=== PATIENT | female | born 1985 | race Caucasian/White ===

== ENCOUNTER 2016-12-02 12:24 | Inpatient (IN) | payer OTHER ==
[~2016-12-02] VITALS: Ht 157.5 cm; Wt 53.2 kg
[2016-12-02] MEDS ORDERED: HYDROmorphONE 1 MG/ML SYG IV STA (14:55)
[2016-12-02] MEDS ORDERED: ONDANSETRON 4 MG INJ IV STA ×2 (14:55→19:18)
[2016-12-02] MEDS ORDERED: DIPHENHYDRAMINE 50 MG INJ IV ONE ×2 (15:00→19:30)
[2016-12-02 15:43] LABS: BASOPHILS % 0.1 % (0.0-2.0); EOSINOPHILS # 0.2 10^3/ul (0.0-0.5); EOSINOPHILS % 2.7 % (0.0-7.0); HEMATOCRIT 28.1 % (37.0-47.0); HEMOGLOBIN 9.3 g/dl (12.0-16.0); LYMPHOCYTES # 1.3 10^3/ul (0.8-2.9); MEAN CORPUSCULAR HEMOGLOBIN 34.3 pg (29.0-33.0); MEAN CORPUSCULAR HGB CONC 33.1 g/dl (32.0-37.0); MEAN CORPUSCULAR VOLUME 103.7 fl (82.0-101.0); MEAN PLATELET VOLUME 10.1 fl (7.4-10.4); MONOCYTE # 0.6 10^3/ul (0.3-0.9); MONOCYTES % 8.6 % (0.0-11.0); NEUTROPHILS % 70.2 % (39.0-77.0); PLATELET COUNT 144 10^3/UL (140-415); RED BLOOD COUNT 2.71 10^6/ul (4.20-5.40); RED CELL DISTRIBUTION WIDTH 15.4 % (11.5-14.5); WHITE BLOOD COUNT 7.1 10^3/ul (4.8-10.8)
--- NOTE | 2016-12-02 15:52 | RADRPT ---
PROCEDURE: XR Chest. CLINICAL INDICATION: Abdominal Pain TECHNIQUE: Single frontal chest x-ray. COMPARISON: None. FINDINGS: The lungs are clear of acute infiltrates, edema, effusions, or masses.. The cardiomediastinal silho uette is unremarkable. The osseous structures are intact. IMPRESSION: No acute cardiopulmonary disease. RPTAT: GG .Eliot Dumont MD, MD Date Time Electronically viewed and signed by .Eliot Dumont MD, MD on 12/02/2016 15:51 .L/
[2016-12-02 15:59] LABS: INR 1.07; PROTIME 13.9 Sec (12.2-14.2); PT RATIO 1.1
[2016-12-02 16:04] LABS: ALANINE AMINOTRANSFERASE 20 IU/L (13-69); ALBUMIN 4.4 g/dl (3.3-4.9); ALBUMIN/GLOBULIN RATIO 1.46; ALKALINE PHOSPHATASE 885 IU/L (42-121); ANION GAP 30 (8-16); ASPARTATE AMINO TRANSFERASE 15 IU/L (15-46); BLOOD UREA NITROGEN 73 mg/dl (7-20); CALCIUM 11.1 mg/dl (8.4-10.2); CARBON DIOXIDE 23 mmol/L (21-31); CHLORIDE 94 mmol/L (97-110); CREATININE 9.39 mg/dl (0.44-1.00); GLUCOSE 80 mg/dl (70-220); SODIUM 141 mmol/L (135-144); TOTAL PROTEIN 7.4 g/dl (6.1-8.1)
[2016-12-02 16:10] LABS: POTASSIUM 6.1 mmol/L (3.5-5.1)
[2016-12-02] MEDS ORDERED: DEXTROSE 50% 50 ML SYRINGE IV STA (16:12)
[2016-12-02 16:16] LABS: TROPONIN-I < 0.012 ng/ml (0.00-0.12)
[2016-12-02] MEDS ORDERED: CALCIUM GLUCONATE 10% 1 GM in SOD CHLORIDE 0.9% 100 ML IVPB ONE (16:30)
[2016-12-02] MEDS ORDERED: INSULIN REGULAR, HUMAN 100 UNIT/1 ML 3ML VIAL IV ONE (16:30)
[2016-12-02] MEDS ORDERED: NA POLYST SULFON 15 GM/60 ML BTL PO ONE (16:30)
--- NOTE | 2016-12-02 16:31 | RADRPT ---
CLINICAL PROCEDURE: ULTRASOUND OF THE THYROID: CLINICAL INDICATION: 31 years of age, female , difficulty swallowing . COMPARISON: None TECHNIQUE: Multiple transverse and sagittal ochoa scale and color Doppler sonographic images of the t hyroid gland were obtained. FINDINGS: Right thyroid lobe size: 5 x 1.5 x 1.9 cm. Left thyroid lobe size: 4.7 x 2.3 x 2.7 cm. Isthmus size: 0.6 cm. Isthmus: 0.7 x 0.9 hypoechoic solid nodule without microcalcifications. Right thyroid: 0.4 cm hypoechoic solid nodule without microcalcification lower pole Left thyroid: 2.2 x 1.7 cm complex cystic nodule mid gland with internal debris and septations colo r flow. 0.6 cm hypoechoic solid nodule but no microcalcifications superior gland. Other: No abnormal cervical lymph nodes. IMPRESSION: Multinodular thyroid gland. 2.2 cm complex cystic nodule left mid gland meets SRU criteria for biop sy. Alternatively recommend correlation with previous imaging. Nodules are confined to the gland and are unlikely to contribute to the patient's symptoms. RPTAT: HCTS Physician Edinson Date Time Electronically viewed and signed by Physician Edinson on 12/02/2016 16:31 /
--- NOTE | 2016-12-02 17:17 | ERA ---
ER Documentation Chief Complaint Date/Time DATE: 12/02/16 TIME: 16:[address],x 4 mos has thyroid nodule, send by clinic, due for dalysis today, ap, HPI 31-year-old woman here with multiple complaints including missed dialysis today , epigastric abdominal pain, and fullness in her neck. She states she was referred here for thyroid mass and possible surgical intervention by Dr. Red. Patient has a history of end-stage kidney disease and is dialyzed Wednesday, Wednesday, Wednesday, last dialysis 2 days ago. She states she has a recent history of thyroid mass and fullness in her neck has been worse recently she has discomfort with swallowing. She denies chest pain or palpitations, no fevers or chills, no weight loss, no vomiting or diarrhea. Patient denies headache or blurry vision. ROS All systems reviewed and are negative except as per history of present illness. Medications Home Meds No Active Prescriptions or Reported Meds Allergies Allergies: Coded Allergies: No Known Allergy (Unverified , 12/02/16) PMhx/Soc End-stage kidney disease, hemodialysis dependent, thyroid mass Hx Miscellaneous Medical Probl: Yes (ESRD, DIALYSIS, MULTIPLE CYSTS, THYROID TUMOR, OVARIAN CYST) Hx Alcohol Use: No Hx Substance Use: No Hx Tobacco Use: No Smoking Status: Never smoker FmHx Family History: No diabetes Physical Exam Vitals Vital Signs Date Time Temp Pulse Resp B/P Pulse Ox O2 Delivery O2 Flow Rate FiO2 12/02/16 16:30 102 18 119/92 99 12/02/16 12:27 98.1 99 18 144/78 99 Physical Exam GENERAL: Well-developed, well-nourished, well-hydrated, in no apparent distress , looks nontoxic in appearance HEENT: Moist mucous membranes, pink conjunctiva, no cervical spine tenderness or step-off deformities, positive goiter worse on the left compared to the right , no exophthalmos NEURO: Alert and oriented 3, cranial nerves II through XII intact bilaterally, pupils equal round reactive to light, no focal deficits or facial asymmetry, sensation intact distally Strength 5/5 in upper and lower extremities bilaterally CARDIAC: Regular rate and rhythm, no murmurs rubs or gallops LUNGS: Clear bilaterally no wheezing crackles or stridor ABDOMEN: Soft nontender, no guarding, no rigidity, no rebound, no psoas sign no obturator sign. Normoactive bowel sounds SKIN: Warm and dry to touch, no abrasions, contusions, or hematomas, no lacerations, no ecchymosis, no target lesions, and without ulcers EXTREMITIES: No clubbing cyanosis or edema, calves are bilaterally symmetrical, no Homans sign, no popliteal cord sign. Distal pulses equal and bilateral. AV fistula to left upper extremity PSYCH: Normal affect without agitation or irritability Result Diagram: 12/02/16 1530 12/02/16 1530 Results 24 hrs Laboratory Tests Test 12/02/16 15:30 12/02/16 16:25 White Blood Count 7.110^3/ul Red Blood Count 2.7110^6/ul Hemoglobin 9.3g/dl Hematocrit 28.1% Mean Corpuscular Volume 103.7fl Mean Corpuscular Hemoglobin 34.3pg Mean Corpuscular Hemoglobin Concent 33.1g/dl Red Cell Distribution Width 15.4% Platelet Count 81617^3/UL Mean Platelet Volume 10.1fl Neutrophils % 70.2% Lymphocytes % 18.0% Monocytes % 8.6% Eosinophils % 2.7% Basophils % 0.1% Nucleated Red Blood Cells % 0.0/100WBC Neutrophils # 5.010^3/ul Lymphocytes # 1.310^3/ul Monocytes # 0.610^3/ul Eosinophils # 0.210^3/ul Basophils # 0.010^3/ul Nucleated Red Blood Cells # 0.010^3/ul Prothrombin Time 13.9Sec Prothrombin Time Ratio 1.1 INR International Normalized Ratio 1.07 Sodium Level 141mmol/L Potassium Level 6.1mmol/L Chloride Level 94mmol/L Carbon Dioxide Level 23mmol/L Anion Gap 30 Blood Urea Nitrogen 73mg/dl Creatinine 9.39mg/dl Glucose Level 80mg/dl Calcium Level 11.1mg/dl Total Bilirubin 0.0mg/dl Direct Bilirubin 0.00mg/dl Indirect Bilirubin 0.0mg/dl Aspartate Amino Transf (AST/SGOT) 15IU/L Alanine Aminotransferase (ALT/SGPT) 20IU/L Alkaline Phosphatase 885IU/L Troponin I < 0.012ng/ml B-Type Natriuretic Peptide 3610PG/ML Total Protein 7.4g/dl Albumin 4.4g/dl Globulin 3.00g/dl Albumin/Globulin Ratio 1.46 Lipase 89U/L Bedside Glucose 70mg/dL Current Medications Medications (Trade) Dose Ordered Sig/Twila Route PRN Reason Start Time Stop Time Status Last Admin Dose Admin Hydromorphone HCl (Dilaudid) 1 mg ONCE STAT IV 12/02/16 14:55 12/02/16 14:57 DC 12/02/16 15:19 Ondansetron HCl (Zofran Inj) 4 mg ONCE STAT IV 12/02/16 14:55 12/02/16 14:57 DC 12/02/16 15:19 Diphenhydramine HCl (Benadryl) 25 mg ONCE ONCE IV 12/02/16 15:00 12/02/16 15:01 DC 12/02/16 15:19 Dextrose (D50w Syringe) 50 ml ONCE STAT IV 12/02/16 16:12 12/02/16 16:20 DC 12/02/16 16:27 Insulin Human Regular 8 unit 8 unit ONCE ONCE IV 12/02/16 16:30 12/02/16 16:31 DC 12/02/16 16:32 Calcium Gluconate/ Sodium Chloride (Ca Gluc/NS) 110 ml @ 110 mls/hr ONCE ONCE IVPB 12/02/16 16:30 12/02/16 17:29 12/02/16 16:42 Sodium Polystyrene Sulfonate (Kayexalate) 30 gm ONCE ONCE PO 12/02/16 16:30 12/02/16 16:31 DC 12/02/16 16:27 Procedures/MDM IV line was established patient was placed on account leader rhythm strip revealed a sinus rhythm at about 80 bpm with upright P and T waves. Patient was afebrile. EKG performed, read by me revealed a normal sinus rhythm at 88 bpm, normal axis , narrow QRS complex, no concerning ST elevations or depressions noted. Peak T waves in precordial leads consistent with acute hyperkalemia. Chest X-ray 1V Interpreted by me: Soft Tissue: No acute abnormalities Bones: No acute abnormalities Mediastinum/Cardiac Silhouette/Lungs: No acute abnormalities CBC was normal, electrolytes revealed acute hyperkalemia with a potassium of 6.1 , liver function tests reveal alkaline phosphatase 885 otherwise unremarkable, lipase normal, troponin negative. BNP elevated. Gallbladder ultrasound was performed no gallstones or acute cholecystitis noted. Please refer to radiologist dictation for full report. Thyroid ultrasound was performed revealing calcified cystic structures to the left and right thyroid, worse on the left. Please refer to radiologist dictation for full report. I administered calcium gluconate 1 g IV, dextrose 25 g IV, regular insulin 8 units IV, Kayexalate 30 g p.o. for acute hyperkalemia. Critical Care: Time: 37 minutes, this was time separate from other billable procedures. Treatments/Evaluations: Close monitoring and treatment of unstable vital signs, cardiorespiratory, and neurologic status, while maintaining tight balance of fluid, respiratory, and cardiac interventions. Patient will be admitted to telemetry setting for continued medical management and surgical consultation for thyroid masses. Dr. Turner will admit the patient and hemodialysis will be scheduled later today. Departure Diagnosis: Primary Impression: Thyroid mass Additional Impressions: Hyperkalemia End stage kidney disease Condition: LIANA Pandya MD Dec 02, 2016 17:08
--- NOTE | 2016-12-02 17:26 | RADRPT ---
PROCEDURE: Right upper quadrant ultrasound CLINICAL INDICATION: Abdominal pain TECHNIQUE: Multiple real-time images were acquired of the patient's abdomen and right retroperiton eum utilizing a high resolution transducer. COMPARISON: None FINDINGS: The liver is normal in echogenicity and measures 12.9 cm. No focal hepatic masses are seen. The ga llbladder is contracted. There is no obvious gallstones or sludge. No obvious pericholecystic flui d is seen. The common bile duct is borderline prominent and measures 5.7 mm. There is no obvious ch oledocholithiasis by ultrasound. The pancreas is suboptimally seen. Right kidney is not visualized IMPRESSION: 1. Contracted gallbladder which limits evaluation. No obvious gallstones or sludge seen. 2. Common bile duct borderline prominent measuring 5.7 mm. No obvious choledocholithiasis by ultra sound. 3. Pancreas not visualized due to overlying bowel gas. 4. Right kidney not visualized in the right renal fossa. This may suggest ectopic kidney or conge nitally absent kidney. 5. Given the limitations of the scan, recommend repeat ultrasound with the patient n.p.o. so the ga llbladder is distended RPTAT: HH .Jose Juan Mayo MD, Date Time Electronically viewed and signed by .Jose Juan Mayo MD, on 12/02/2016 17:26 .W/
[2016-12-02] MEDS ORDERED: morphine 4 MG/ML VIAL IV STA (19:18)
[2016-12-02 20:00] VITALS: BP 122/58; PULSE 97; RESP 19
[2016-12-02] MEDS ORDERED: CNC30T PO (22:42)
[2016-12-02] MEDS ORDERED: ACETAMINOPHEN 325 MG TAB PO PRN (23:00)
[2016-12-02] MEDS: morphine 2 MG INJ IV PRN (23:07)
[2016-12-02] MEDS: DIPHENHYDRAMINE 50 MG INJ IV PRN (23:08)
[2016-12-02 23:14] VITALS: Ht 157.5 cm; Wt 53.2 kg
[2016-12-02 23:42] VITALS: BP 123/61; RESP 18
[2016-12-03] VITALS (17 sets, daily range): BP systolic 96–116; BP diastolic 52–76; PULSE 82–101; RESP 18–19
[2016-12-03] MEDS: CINACALCET 30 MG TAB PO SCH ×3 (01:00→21:22)
[2016-12-03] MEDS: morphine 2 MG INJ IV PRN ×4 (04:18→21:28)
[2016-12-03] MEDS: DIPHENHYDRAMINE 50 MG INJ IV PRN ×4 (05:01→23:02)
[2016-12-03 10:39] LABS: ALBUMIN 4.4 g/dl (3.3-4.9); ALBUMIN/GLOBULIN RATIO 1.46; BILIRUBIN,INDIRECT 0.2 mg/dl (0-1.1); BILIRUBIN,TOTAL 0.2 mg/dl (0.2-1.3); CALCIUM 10.7 mg/dl (8.4-10.2); CREATININE 3.93 mg/dl (0.44-1.00); TOTAL PROTEIN 7.4 g/dl (6.1-8.1)
[2016-12-03 17:07] LABS: THYROID STIMULATING HORMONE 0.229 MIU/L (0.465-4.680)
--- NOTE | 2016-12-03 18:12 | HP ---
Date/Time of Note Date/Time of Note DATE: 12/03/16 TIME: 16:17 Assessment/Plan VTE Prophylaxis VTE Prophylaxis Intervention: other Lines/Catheters IV Catheter Type (from Nrs): Saline Lock Assessment/Plan Assessment/Plan -End-stage kidney disease, hemodialysis dependent - Nephrology consult- Dr Silverio - Has HD today - Hypokalemia- per nephro - Thyroid mass/Goiter - will get surgical consult- Dr Lainez- notified by Dr Turner - will endocrinology consult- notified by dr Turner - TSH/Free T4 am - OVARIAN CYST - No acute issues - Elevated BNP - Cardiology consult Dw Dr Turner/staff HPI/ROS Admit Date/Time Admit Date/Time Dec 02, 2016 at 17:19 Hx of Present Illness HPI This is a 31-year-old female patient with past medical history of ESRD, on dialysis- Wednesday, Wednesday, Wednesday, thyroid mass, ovarian cyst is admitted under Dr. Turner . Patient is admitted to the hospital with multiple complaints including missed dialysis today-patient's last dialysis was 2 days ago, epigastric abdominal pain, and fullness in her neck. Palpation she is stated that with for her thyroid mass she is seeing Dr. Crespo for possible surgical intervention . She states she has a recent history of thyroid mass and fullness in her neck has been worse recently she has discomfort with swallowing. She denies chest pain or palpitations, no fevers or chills, no weight loss, no vomiting or diarrhea. Patient denies headache or blurry vision. Further plan of care discussed with Dr. Turner, staff, patient ROS All systems reviewed and are negative except as per history of present illness. Medications Home Meds No Active Prescriptions or Reported Meds Allergies No Known Allergy (Unverified , 12/02/16) ROS ENT: other Respiratory: no complaints Cardiovascular: no complaints Gastrointestinal: no complaints Genitourinary: no complaints Musculoskeletal: no complaints PMH/Family/Social Past Medical History PMhx/Soc End-stage kidney disease, hemodialysis dependent, thyroid mass Hx Miscellaneous Medical Probl: Yes (ESRD, DIALYSIS, MULTIPLE CYSTS, THYROID TUMOR, OVARIAN CYST) Hx Alcohol Use: No Hx Substance Use: No Hx Tobacco Use: No Smoking Status: Never smoker FmHx Family History: No diabetes Social History Smoking Status: Never smoker Exam/Review of Systems Vital Signs Vitals Vital Signs Date Time Temp Pulse Resp B/P Pulse Ox O2 Delivery O2 Flow Rate FiO2 12/03/16 15:49 97.9 95 19 96/57 99 12/03/16 12:11 Room Air Intake and Output 12/02/16 12/02/16 12/03/16 15:00 23:00 07:00 Intake Total 200 ml Balance 200 ml Exam Constitutional: alert, oriented, well developed Eyes: EOMI, nl sclera, other (no exophthalmus noted) Neck: bruits, other (left goiter) Respiratory: clear to auscultation, normal air movement Cardiovascular: nl pulses, regular rate and rhythm Gastrointestinal: non-tender, soft Musculoskeletal: nl extremities to inspection Extremities: normal pulses 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: nl mental status, nl speech Labs Result Diagram: 12/02/16 1530 12/03/16 0944 Medications Medications Current Medications Acetaminophen (Tylenol Tab) 650 mg Q4H PRN PO PAIN AND OR ELEVATED TEMP; Start 12/02/16 at 23:00 Hydralazine HCl (Apresoline) 25 mg Q6H PRN PO SBP >170; Start 12/02/16 at 23:00 Cinacalcet (Sensipar) 30 mg HS PO ; Start 12/03/16 at 00:30 Morphine Sulfate (morphine) 2 mg Q4H PRN IV MODERATE PAIN LEVEL 4-6 Last administered on 12/03/16 11:02; Admin Dose 2 MG; Start 12/02/16 at 23:00 Diphenhydramine HCl (Benadryl) 25 mg Q6H PRN IV Itching Last administered on 11:02; Admin Dose 25 MG; Start 12/02/16 at 23:00 Procedures Procedures PROCEDURE: Right upper quadrant ultrasound CLINICAL INDICATION: Abdominal pain IMPRESSION: 1. Contracted gallbladder which limits evaluation. No obvious gallstones or sludge seen. 2. Common bile duct borderline prominent measuring 5.7 mm. No obvious choledocholithiasis by ultrasound. 3. Pancreas not visualized due to overlying bowel gas. 4. Right kidney not visualized in the right renal fossa. This may suggest ectopic kidney or congenitally absent kidney. 5. Given the limitations of the scan, recommend repeat ultrasound with the patient n.p.o. so the gallbladder is distendedEKG - normal sinus rhythm at 88 bpm, normal axis, narrow QRS complex, no concerning ST elevations or depressions noted. Peak T waves in precordial leads consistent with acute hyperkalemia. Chest X-ray Soft Tissue: No acute abnormalities Bones: No acute abnormalities Mediastinum/Cardiac Silhouette/Lungs: No acute abnormalities CBC was normal, electrolytes revealed acute hyperkalemia with a potassium of 6.1 , liver function tests reveal alkaline phosphatase 885 otherwise unremarkable, lipase normal, troponin negative. BNP elevated. Gallbladder ultrasound was performed no gallstones or acute cholecystitis noted. Thyroid ultrasound was performed revealing calcified cystic structures to the left and right thyroid, worse on the left. EDILMA CASIANO Dec 03, 2016 16:31
[2016-12-03] MEDS ORDERED: CINACALCET 30 MG TAB PO SCH (21:00)
[2016-12-03 22:01] LABS: PHOSPHORUS 8.3 mg/dl (2.5-4.9)
[2016-12-04] VITALS (11 sets, daily range): BP systolic 99–107; BP diastolic 52–61; PULSE 89–104; RESP 17–19
[2016-12-04] MEDS: morphine 2 MG INJ IV PRN ×5 (01:35→18:35)
--- NOTE | 2016-12-04 04:38 | CONS ---
DATE OF ADMISSION: 12/02/2016 DATE OF CONSULTATION: 12/04/2016 HISTORY OF PRESENT ILLNESS: Patient is a 31-year-old, para 1, 1, single female with a history of hypertension, chronic renal failure. Patient has been on hemodialysis for 7 years and has been followed by Dr. Jones. Patient has been on multiple medications including Sensipar, hydralazine, Benadryl and Renvela vitamins. She has been admitted to multiple other hospitals and presented to the emergency room with chief complaints of abdominal pain and fullness of the neck. Patient has been carefully evaluated and extensive workup has included white count 7.1, hematocrit 28.1. Admission potassium was 6.1, BUN 73, creatinine 9.39 and alkaline phos is very high at 885. Calcium is elevated at 11.1. The patient has already had a thyroid ultrasound, which shows thyromegaly of 2.2 cm and does not talk about the aberrant gland enlargement that the patient has due to secondary hyperparathyroidism. She also had a gallbladder ultrasound, which shows contracted gallbladder, no gallstones. Patient apparently has a history of ovarian cysts and it is not clear what workup has been done already. I am not sure if she takes her medications regularly. REVIEW OF SYSTEMS: Rest of the system review is negative for any head, ear, nose, eye problem, seizures, metabolic problem and the patient denies any cough, hemoptysis, fevers, chills, bone pain, joint pains or any skin rash or itching. The patient does admit to some discomfort with swallowing at times. No chest pain, shortness of breath. No abdominal pain, flank pain. No [employer] problem, though patient is amenorrheic for a year and a half. Does not take any hormones. PAST SURGICAL HISTORY: She has not had any other surgery except left arm AV fistula. One uncomplicated . PAST MEDICAL HISTORY: No other history of metabolic problems and patient's PTH level hovers around [address] Jones, who has been following her for many years. LABORATORY: Additional lab work here is sodium 146, chloride 96, CO2 is 30. K is normal FAMILY HISTORY: Unremarkable. Patient has 4 brothers. Parents are alive and well. Nobody else has kidney problems. IMPRESSION: 1. History of end-stage kidney disease on hemodialysis. 2. Hyperparathyroidism, secondary, severe, with hypercalcemia and elevated alkaline phosphatase= Renal bone disease 3. Anemia of chronic renal disease. 4. ?Thyromegaly 5. Dysphagia PLAN: This patient poses a difficult problem. She is in need for parathyroidectomy for which I will have to consult some ENT specialists. How much thyroid dis is her problem at present, I'd leave in the hands of [facility] who is following pt. I will discuss this with Dr. Turner and I will follow the patient's clinical course closely. Meanwhile hemodialysis every other day will be continued. Dictated By: Fab Silverio MD /facundo/katie /Document#: [id number] ; Dr. Robert CARNES
--- NOTE | 2016-12-04 05:10 | CONS ---
DATE OF ADMISSION: 12/02/2016 DATE OF CONSULTATION: 12/03/2016 REASON FOR CONSULTATION: Increased BNP. Assess congestive heart failure. REQUESTING PHYSICIAN: Pawan Turner MD HISTORY OF PRESENT ILLNESS: Ms. Morrison is a 31-year-old female with a 3-year history of end-stage renal disease, on hemodialysis, who presented with shortness of breath after missing dialysis 2 days ago, worsening epigastric abdominal pain and a thyroid mass. Upon arrival, temperature of 98.1, blood pressure elevated at 144/78, pulse 99, respiratory rate 18, satting 99 percent. The patient labs: White count of 7.1, hemoglobin 9.3, platelet count 144. Sodium 141, potassium 6.1, creatinine 9.39, BUN of 73, AST 15, ALT 22, troponin negative. Alk phos 885. INR of 1.1. The patient underwent a chest x-ray revealing no acute cardiac abnormalities. The patient underwent a thyroid ultrasound revealing a multinodular thyroid gland and a gallbladder ultrasound that revealed contrast to gallbladder which limits evaluation, common bile duct borderline prominent. Pancreas not visualized due to overlying bowel gas. Right kidney normal size in the right renal fossa. The patient's electrocardiogram was not in the chart for my review at this time. The patient has been admitted to the floor and since on the floor denies chest pain, but has ongoing mild shortness of breath and marginal blood pressure. PAST MEDICAL HISTORY: As above in HPI. MEDICATION: In the hospital: 1. Sensipar. 2. Zofran p.r.n. 3. Tylenol p.r.n. 4. Hydralazine p.r.n. 5. Morphine, p.r.n. 6. Benadryl p.r.n. ALLERGIES: TO VANCOMYCIN. SOCIAL HISTORY: No tobacco, EtOH or illicit drug use. FAMILY HISTORY: No history of sudden cardiac or early CAD. REVIEW OF SYSTEMS: As above in HPI. CONSTITUTIONAL: No fevers, chills. RESPIRATORY: Positive shortness of breath. CARDIOVASCULAR: No current chest pain, increased BP. GASTROINTESTINAL: No vomiting. GENITOURINARY: No hematuria. MUSCULOSKELETAL: Degenerative joint disease. PSYCH: The patient denies depression. NEUROLOGIC: No documented CVA. PHYSICAL EXAMINATION: VITAL SIGNS: Temperature of 98.9, blood pressure 101/54, pulse 89, respiratory rate 19, satting 98 percent. GENERAL: The patient is alert, awake, no acute distress. NECK: JVP of 96 cm H20. LUNGS: Decreased breath sounds at the bases bilaterally. HEART: Regular rate and rhythm. Normal S1, S2. 1/6 systolic murmur. Nondisplaced PMI. ABDOMEN: Positive bowel sounds. Soft. EXTREMITIES: No pitting edema. 1+ pulses bilateral posterior tibial. LABORATORY: Most recently from today: Sodium 146 status 3.0, creatinine of 3.93, BUN 23, TSH suppressed at 0.229. Free T4 low at 0.62. INR 1.0. IMAGING STUDIES: As above in HPI. No further imaging studies are available for review. ECG: No electrocardiogram for my review at this time. IMPRESSION: 1. Increased BNP, assess congestive heart failure with secondary renal failure. 2. Hypotension, borderline. 3. Goiter multinodular. 4. End-stage renal disease on hemodialysis. 5. Hyperkalemia resolved. 6. Abdominal pain. RECOMMENDATIONS: 1. At this time, would maintain patient on telemetry monitoring to follow rhythm and rate closely. 2. Check 2D echo to further assess patient's ejection fraction, wall motion, and need for afterload reduction in setting of increased BNP. 3. Follow patient's potassium closely. 4. Hemodialysis for volume removal progressively. 5. Check fasting lipid panel for general restratification and at this time we will check a baseline EKG now and repeat EKG in the morning to assess for any significant changes. Thank you for allowing me to take part in the care of this patient. I will continue to follow her very closely with you. Further recommendation to be made as patient progresses through inpatient hospital course. Dictated By: Omar Singer /facundo/ /Document#: [id number] CC: Pawan Turner MD;*EndCC* [email or web address]
[2016-12-04] MEDS: DIPHENHYDRAMINE 50 MG INJ IV PRN ×3 (05:58→18:36)
[2016-12-04] MEDS: SEVELAMER 800 MG TAB PO SCH ×3 (07:43→17:16)
[2016-12-04 08:10] LABS: BASOPHILS % 0.2 % (0.0-2.0); EOSINOPHILS # 0.2 10^3/ul (0.0-0.5); HEMATOCRIT 25.6 % (37.0-47.0); HEMOGLOBIN 8.2 g/dl (12.0-16.0); LYMPHOCYTES # 1.2 10^3/ul (0.8-2.9); LYMPHOCYTES % 26.7 % (15.0-51.0); MEAN CORPUSCULAR HEMOGLOBIN 33.6 pg (29.0-33.0); MEAN CORPUSCULAR VOLUME 104.9 fl (82.0-101.0); MEAN PLATELET VOLUME 9.9 fl (7.4-10.4); MONOCYTE # 0.4 10^3/ul (0.3-0.9); MONOCYTES % 8.2 % (0.0-11.0); NEUTROPHIL # 2.7 10^3/ul (1.6-7.5); NEUTROPHILS % 60.5 % (39.0-77.0); PLATELET COUNT 127 10^3/UL (140-415); RED BLOOD COUNT 2.44 10^6/ul (4.20-5.40); RED CELL DISTRIBUTION WIDTH 15.3 % (11.5-14.5); WHITE BLOOD COUNT 4.5 10^3/ul (4.8-10.8)
[2016-12-04] MEDS: CINACALCET 30 MG TAB PO SCH ×2 (08:17→20:51)
[2016-12-04 08:45] LABS: CALCIUM 10.5 mg/dl (8.4-10.2); CREATININE 7.03 mg/dl (0.44-1.00); POTASSIUM 4.5 mmol/L (3.5-5.1)
[2016-12-04 08:46] LABS: CHOL/HDL RATIO 2.7 RATIO; CHOLESTEROL 108 mg/dl (100-200); HDL CHOLESTEROL 40 mg/dl (34-82); TRIGLYCERIDES 125 mg/dl (0-149)
[2016-12-04 08:58] LABS: TROPONIN-I < 0.012 ng/ml (0.00-0.12)
[2016-12-04] MEDS: PANTOPRAZOLE (EC) 40 MG TAB PO SCH (14:15)
[2016-12-04] MEDS: IBUPROFEN 600 MG TAB GTB SCH ×2 (14:15→22:12)
--- NOTE | 2016-12-04 15:51 | CONS ---
Date/Time of Note Date/Time of Note DATE: 12/04/16 TIME: 15:45 Assessment/Plan Assessment/Plan Chief Complaint/Hosp Course 1. Increased BNP, assess congestive heart failure with secondary renal failure.- no sig sob at thie time 2. Hypotension, borderline. 3. Goiter multinodular. 4. End-stage renal disease on hemodialysis. 5. Hyperkalemia resolved. 6. Abdominal pain. Recc: -Tele -Ongoing eval of mutinodular goiter -HD for volume removal -Follow marginal BP closely -will f/u echo Problems: Consultation Date/Type/Reason Admit Date/Time Dec 02, 2016 at 17:19 Initial Consult Date 12/03/2016 Type of Consultation: cardiology Reason for Consultation Hotn/high BNP Exam/Review of Systems Vital Signs Vitals Vital Signs Date Time Temp Pulse Resp B/P Pulse Ox O2 Delivery O2 Flow Rate FiO2 12/04/16 12:21 94 12/04/16 12:02 98.3 17 106/60 98 12/03/16 12:11 Room Air Intake and Output 12/03/16 12/03/16 12/04/16 15:00 23:00 07:00 Intake Total 300 ml 320 ml 400 ml Output Total 3500 ml 3500 ml Balance -3200 ml -3180 ml 400 ml Exam Review of Systems: CONSTITUTIONAL: No fevers, chills. PULMONARY: No sob CARDIOVASCULAR: No chest pain/palpitations GASTROINTESTINAL: No nausea/vomiting. GENITOURINARY: No hematuria/dysuria. MUSCULOSKELETAL: c/o neck pain PSYCHIATRIC: The patient denies depression. NEUROLOGIC: No weakness Constitutional: alert Psych: no complaints Head: normocephalic Neck: thyromegaly Respiratory: clear to auscultation Cardiovascular: regular rate and rhythm Gastrointestinal: non-tender, soft Musculoskeletal: muscle tone (normal) Extremities: edema (none) 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: other (No focal deficits) Results Result Diagram: 12/04/16 0732 12/04/16 0732 Results 24 hrs Laboratory Tests Test 12/03/16 19:28 12/04/16 07:32 12/04/16 07:33 Phosphorus Level 8.3 H Thyroid Stimulating Hormone (TSH) 0.208 L Free Thyroxine 0.60 L Parathyroid Hormone (Intact) White Blood Count 4.5 #L Red Blood Count 2.44 L Hemoglobin 8.2 L Hematocrit 25.6 L Mean Corpuscular Volume 104.9 H Mean Corpuscular Hemoglobin 33.6 H Mean Corpuscular Hemoglobin Concent 32.0 Red Cell Distribution Width 15.3 H Platelet Count 127 L Mean Platelet Volume 9.9 Neutrophils % 60.5 Lymphocytes % 26.7 Monocytes % 8.2 Eosinophils % 4.0 Basophils % 0.2 Nucleated Red Blood Cells % 0.0 Neutrophils # 2.7 Lymphocytes # 1.2 Monocytes # 0.4 Eosinophils # 0.2 Basophils # 0.0 Nucleated Red Blood Cells # 0.0 Sodium Level 143 Potassium Level 4.5 Chloride Level 93 L Carbon Dioxide Level 28 Anion Gap 27 H Blood Urea Nitrogen 43 #H Creatinine 7.03 #H Glucose Level 84 Calcium Level 10.5 H Troponin I < 0.012 Triglycerides Level 125 Cholesterol Level 108 LDL Cholesterol, Calculated 43 HDL Cholesterol 40 Cholesterol/HDL Ratio 2.7 Medications Medications Current Medications Acetaminophen (Tylenol Tab) 650 mg Q4H PRN PO PAIN AND OR ELEVATED TEMP; Start 12/02/16 at 23:00 Hydralazine HCl (Apresoline) 25 mg Q6H PRN PO SBP >170; Start 12/02/16 at 23:00 Morphine Sulfate (morphine) 2 mg Q4H PRN IV MODERATE PAIN LEVEL 4-6 Last administered on 12/04/16 14:15; Admin Dose 2 MG; Start 12/02/16 at 23:00 Diphenhydramine HCl (Benadryl) 25 mg Q6H PRN IV Itching Last administered on 12:35; Admin Dose 25 MG; Start 12/02/16 at 23:00 Ondansetron HCl (Zofran Inj) 4 mg Q6H PRN IV NAUSEA AND/OR VOMITING; Start 02/09 at 19:30 Cinacalcet (Sensipar) 90 mg BID PO Last administered on 12/04/16 08:17; Admin Dose 90 MG; Start 12/03/16 at 21:30 Ibuprofen (Motrin) 600 mg Q8 GTB Last administered on 12/04/16 14:15; Admin Dose 600 MG; Start 12/04/16 at 14:00 Pantoprazole (Protonix Tab) 40 mg DAILY@06 PO Last administered on 12/04/16 14 :15; Admin Dose 40 MG; Start 12/04/16 at 14:00 HENRIQUE GARCIA Dec 04, 2016 15:51
--- NOTE | 2016-12-04 16:11 | RADRPT ---
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 Physician: HENRIQUE BARRERA Quality: Good Procedures: Transthoracic echocardiogram with complete 2D, M-Mode, and doppler examination. Indications: high BNP. 2D/M Mode Doppler Measurement Value Normal Ranges Measurement Value Normal Ranges LVIDd 2D 4.9 3.5 - 5.6 cm AV Peak Adarsh 2.4 m/sec LVIDs 2D 2.8 2.1 - 4.1 cm AV Peak PG 23.9 mmHg LVPWd 2D 0.9 0.6 - 1.1 cm LVOT Mean Adarsh 0.8 m/sec IVSd 2D 0.9 0.6 - 1.1 cm LVOT Mean PG 2.9 mmHg AoR Diam 2D 2.5 2.0 - 3.7 cm LVOT Peak Adarsh 1.1 m/sec EDV 2D 112.5 cm3 LVOT Peak PG 4.5 mmHg ESV 2D 21.8 cm3 LVOT VTI 22.8 cm LA Dimen 2D 4.3 2.3 - 4.0 cm MV E Peak Adarsh 1.1 m/sec MV A Peak Adarsh 1.1 m/sec MV E/A 1.0 MV Decel Time [address] [place] 4 MV E/A 1.0 TR Peak Adarsh 2.6 m/sec TR Peak PG 28.6 mmHg RVSP 48.8 mmHg Findings Left Ventricle: Normal left ventricular systolic function. Normal left ventricular cavity size. Normal left ventricular wall thickness. Ejection fraction is visually estimated at 60 %. Right Ventricle: Normal right ventricular size. Normal right ventricular systolic function. Left Atrium: The left atrium is normal in size. Right Atrium: The right atrium is normal in size. Mitral Valve: Normal appearance of the mitral valve. Trace mitral regurgitation. Aortic Valve: Normal appearance of the aortic valve. No significant aortic stenosis or insufficiency. Tricuspid Valve: There is trace tricuspid regurgitation. Pulmonic Valve: Normal pulmonic valve appearance. Pericardium: Normal pericardium with no significant pericardial effusion. Aorta: Normal aortic root. IVC: Normal size and normal respiratory collapse consistent with normal right atrial pressure. Conclusions 1.Normal left ventricular systolic function. Normal left ventricular cavity size. Normal left ventricular wall thickness. Ejection fraction is visually estimated at 60 %. 2.Normal appearance of the mitral valve. Trace mitral regurgitation. 3.There is trace tricuspid regurgitation. Electronically Signed By: Henrique Barrera 04-Dec-2016 16:09:34 -0700 Patient Name: JANNET LACEY Study Date: 04-Dec-2016 [id number]
--- NOTE | 2016-12-04 17:35 | CONS ---
Date/Time of Note Date/Time of Note DATE: 12/04/16 TIME: 17:17 Assessment/Plan Assessment/Plan Problems: (1) Painful thyroid Status: Acute Comment: L thyroid painful nodule due to bleeding into L thyroid cyst. This occurs when rapid bleeding expands cyst capsule which is painful. Pain usually eventually resolves. May treat w/ aspiration but rebleed is common. Would not aspirate before performing thyroid uptake and scan (see below). May also treat w/ excision. No need for total thyroidectomy. 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 TSH is low. Low FT4 likely attributable to low TBG in the setting of chronic illness. Will check FT4I. Will perform thyroid uptake and scan to r/o thyrotoxic nodule. (3) Secondary hyperparathyroidism of renal origin Status: Chronic Comment: Per nephrology no matter what, pt. will require parathyroidectomy. Per general surgery, literature w/ cases of bleeding into parathyroid cysts in some cases like this so although ultrasound appears that cyst is intrathyroidal , I would not rule out that this is actually parathyroid. (4) Vein disorder Status: Acute Comment: General surgery points out that veins are prominent everywhere. Does not want to operate in setting of venous HTN which may be attributable to AV fistula malfunction. Possible cause of intracyst bleed in the first place. Primary team is calling vascular surgery to evaluate. 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 This became an ongoing issue. Nephrology had wanted pt. to have parathyroidectomy any way so pt. referred to [facility] to have both thyroid and parathyroid surgery. Pt. missed HD to come here so admitted for HD and to have thyroid eval. In ER had thyroid ultrasound showing relatively normal-sized gland w/ few small nodules on R and in isthmus but on L w/ 2.2 cm complex cystic mass which was the source of the tenderness. Pt. admitted for further eval. Since admit, both TSH and FT4 have been low. Endo consulted. Constitutional: improved, no complaints Eyes: no complaints ENT: other (tongue changes color from pink to black to yellow depending on day and time) Respiratory: no complaints Cardiovascular: no complaints Gastrointestinal: pain (tender on the surface) Genitourinary: no complaints Musculoskeletal: no complaints Neurologic: no complaints Psychological: no complaints Past Medical History Medical History: hypertension, renal disease, other (MNG, secondary hyperparathyroidism, Liver biopsy w/ unknown diagnosis) Past Surgical History Past Surgical Hx: other (multiple permacath placements, AV fistula placement) Family History Significant Family History: no pertinent family hx Social History b. [facility], [place], in [facility] 20 y, single, 1 child, not working Alcohol Use: sober (adolesence only) Smoking Status: Former smoker (adolesence only) Drug Use: none Exam/Review of Systems Vital Signs Vitals VS - Last 72 Hours, by Label Date Time Temp Pulse Resp B/P Pulse Ox O2 Delivery O2 Flow Rate FiO2 12/04/16 16:54 89 12/04/16 15:46 98.4 97 18 99/52 96 12/04/16 12:21 94 12/04/16 12:02 98.3 96 17 106/60 98 12/04/16 08:49 90 12/04/16 07:39 98.3 90 18 106/54 98 12/04/16 04:00 90 12/04/16 03:54 98.0 90 19 107/53 97 12/04/16 00:00 98.1 94 19 99/53 96 12/04/16 00:00 104 12/03/16 20:00 87 12/03/16 20:00 98.9 89 19 101/54 97 12/03/16 16:00 90 12/03/16 15:49 97.9 95 19 96/57 99 12/03/16 12:11 97.6 82 18 99/55 99 Room Air 12/03/16 12:00 88 12/03/16 11:15 97.9 95 19 105/52 99 12/03/16 08:30 97 12/03/16 08:30 97 17 12/03/16 08:00 92 12/03/16 08:00 97 12/03/16 07:30 95 12/03/16 07:24 98.1 90 19 113/59 97 12/03/16 07:00 98 12/03/16 06:30 99 12/03/16 06:00 98 12/03/16 05:30 100 19 12/03/16 05:30 100 12/03/16 04:00 93 12/03/16 03:43 98.1 91 18 107/59 98 12/03/16 00:00 101 12/02/16 23:42 98.0 100 18 123/61 98 12/02/16 20:00 98.0 101 19 122/58 97 12/02/16 20:00 97 12/02/16 17:59 99 18 122/86 99 12/02/16 16:30 102 18 119/92 99 12/02/16 12:27 98.1 99 18 144/78 99 Vital Signs Date Time Temp Pulse Resp B/P Pulse Ox O2 Delivery O2 Flow Rate FiO2 12/04/16 16:54 89 12/04/16 15:46 98.4 18 99/52 96 12/03/16 12:11 Room Air Intake and Output 12/03/16 12/03/16 12/04/16 15:00 23:00 07:00 Intake Total 300 ml 320 ml 400 ml Output Total 3500 ml 3500 ml Balance -3200 ml -3180 ml 400 ml Exam Constitutional: alert, oriented, well developed Psych: nl mood/affect, no complaints Head: other (prominent veins on forehead) Eyes: EOMI, PERRL, nl conjunctiva, nl lids, nl sclera ENMT: mucosa pink and moist, nl external ears & nose Neck: bruits (continuous bruit heard), jvd (prominent), non-tender, supple, thyromegaly (palpable L thyroid nodule which is tender; rest of thyroid not palpable) Respiratory: clear to auscultation, normal air movement Cardiovascular: jugular venous distention (JVD), nl pulses, regular rate and rhythm, No edema Gastrointestinal: bowel sounds, nl liver, spleen, other (prominent caput medusae), soft, tender (diffusely TTP), No mass, No rebound or guarding Musculoskeletal: nl extremities to inspection Extremities: normal pulses, No clubbing, No cyanosis, No edema 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: PASTE THINNER II-XII intact, nl mental status, nl speech, nl strength Results Result Diagram: 12/04/16 0732 12/04/16 0732 Results 24 hrs Laboratory Tests Test 12/03/16 19:28 12/04/16 07:32 12/04/16 07:33 Phosphorus Level 8.3 H Thyroid Stimulating Hormone (TSH) 0.208 L Free Thyroxine 0.60 L Parathyroid Hormone (Intact) White Blood Count 4.5 #L Red Blood Count 2.44 L Hemoglobin 8.2 L Hematocrit 25.6 L Mean Corpuscular Volume 104.9 H Mean Corpuscular Hemoglobin 33.6 H Mean Corpuscular Hemoglobin Concent 32.0 Red Cell Distribution Width 15.3 H Platelet Count 127 L Mean Platelet Volume 9.9 Neutrophils % 60.5 Lymphocytes % 26.7 Monocytes % 8.2 Eosinophils % 4.0 Basophils % 0.2 Nucleated Red Blood Cells % 0.0 Neutrophils # 2.7 Lymphocytes # 1.2 Monocytes # 0.4 Eosinophils # 0.2 Basophils # 0.0 Nucleated Red Blood Cells # 0.0 Sodium Level 143 Potassium Level 4.5 Chloride Level 93 L Carbon Dioxide Level 28 Anion Gap 27 H Blood Urea Nitrogen 43 #H Creatinine 7.03 #H Glucose Level 84 Calcium Level 10.5 H Troponin I < 0.012 Triglycerides Level 125 Cholesterol Level 108 LDL Cholesterol, Calculated 43 HDL Cholesterol 40 Cholesterol/HDL Ratio 2.7 Medications Medications Current Medications Acetaminophen (Tylenol Tab) 650 mg Q4H PRN PO PAIN AND OR ELEVATED TEMP; Start 12/02/16 at 23:00 Hydralazine HCl (Apresoline) 25 mg Q6H PRN PO SBP >170; Start 12/02/16 at 23:00 Morphine Sulfate (morphine) 2 mg Q4H PRN IV MODERATE PAIN LEVEL 4-6 Last administered on 12/04/16 14:15; Admin Dose 2 MG; Start 12/02/16 at 23:00 Diphenhydramine HCl (Benadryl) 25 mg Q6H PRN IV Itching Last administered on 12:35; Admin Dose 25 MG; Start 12/02/16 at 23:00 Ondansetron HCl (Zofran Inj) 4 mg Q6H PRN IV NAUSEA AND/OR VOMITING; Start 02/09 at 19:30 Cinacalcet (Sensipar) 90 mg BID PO Last administered on 12/04/16 08:17; Admin Dose 90 MG; Start 12/03/16 at 21:30 Ibuprofen (Motrin) 600 mg Q8 GTB Last administered on 12/04/16 14:15; Admin Dose 600 MG; Start 12/04/16 at 14:00 Pantoprazole (Protonix Tab) 40 mg DAILY@06 PO Last administered on 12/04/16 14 :15; Admin Dose 40 MG; Start 12/04/16 at 14:00 DWAYNE YEUNG MD Dec 04, 2016 17:27
--- NOTE | 2016-12-04 17:48 | CONS ---
Date/Time of Note Date/Time of Note DATE: 12/04/16 TIME: 17:17 Assessment/Plan Assessment/Plan Chief Complaint/Hosp Course 31-year-old patient is admitted with the following diagnosis 1. End-stage renal disease on hemodialysis. 2. Soft tissue swelling of the neck and very recent onset of dysphagia and odynophagia patient only can drink liquids rule out the cause 3. 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 4. Venous hypertension in the neck and in the upper thorax secondary to AV fistula on the left side. 5. Rule out bleeding in the thyroid cyst or parathyroid adenoma. #6 6. Abdominal pain rule out the cause. Plan and suggestion Recommend vascular consultation to evaluate the effect of hyperdynamic condition produced by AV fistula. Recommend endocrinology consultation which apparently is in the process. Recommend CT scan of the neck soft tissue at this time without contrast Thank you Dr. Turner for involving us to consult on this very interesting and complicated patient. I think if he can get a consultation from ENT specialist is going to be valuable as well Problems: Consultation Date/Type/Reason Admit Date/Time Dec 02, 2016 at 17:19 Date of Consultation: Dec 04, 2016 Type of Consultation: Surgical Reason for Consultation Surgical consultation requested by medical service for evaluation of this patient for enlarged thyroid lobes and goiter. Apparently this is a 31-year- old female with end-stage renal disease who is on hemodialysis on Wednesdays and Fridays she was admitted 3 days ago because of shortness of breath and heavy sensation in her neck and epigastric abdominal pain and missed the dialysis for 2 days. They did an ultrasound of the neck he has been the [facility] which has revealed presence of a sister nodule in the left thyroid lobe about 2- 1/2 cm also a smaller nodule in the right thyroid lobe. Patient states that she has difficulty swallowing solid food in the past several days she has only been able to swallow liquids. Should be mentioned that 2 renal consultation was requested from Dr. Chilo Siegel is not available about seeing the patient for Dr. Woo. Hx of Present Illness History of present illness: As mentioned this patient came to the emergency room complaining of swelling of the neck and pressure and difficulty breathing shortness of breath and abdominal pain epigastric area for at least 3-4 days. Also patient has been told in [facility] that she has enlarged thyroid to refer to this hospital and have Dr. Woo proceed with operation for the thyroid enlargement.. Apparently patient was diagnosed with end-stage renal da disease in need of hemodialysis therefore in [facility] day place an AV fistula in the left upper arm. Where the patient is getting her hemodialysis notes patient admits that she has recently noticed enlargement of the veins in her neck and her abdominal wall. ENT: other Respiratory: no complaints Cardiovascular: no complaints Gastrointestinal: no complaints Genitourinary: no complaints Musculoskeletal: no complaints Psychological: no complaints Past Medical History Past medical history is as mentioned in history of present illness please also refer to detailed history of admitting physician Past Surgical History Positive for creation of AV fistula on the left upper arm. Family History Significant Family History: no pertinent family hx Social History Alcohol Use: none Smoking Status: Never smoker Drug Use: none Exam/Review of Systems Vital Signs Vitals Vital Signs Date Time Temp Pulse Resp B/P Pulse Ox O2 Delivery O2 Flow Rate FiO2 12/04/16 16:54 89 12/04/16 15:46 98.4 18 99/52 96 12/03/16 12:11 Room Air Intake and Output 12/03/16 12/03/16 12/04/16 15:00 23:00 07:00 Intake Total 300 ml 320 ml 400 ml Output Total 3500 ml 3500 ml Balance -3200 ml -3180 ml 400 ml Exam Patient is alert awake oriented 3 sitting on her bed. States that if she lays down on the bed she feels some whole shortness of breath. General appearance patient is in no distress. HEENT. Obviously there is swelling around the anterior and inferior aspect of the neck. Very prominent neck veins visible. There is grade 3/6 murmur over the left neck are notable grade 2/6 on the right side. Of note is that this prominent veins are filling from the below from the above. Again patient admits that she has difficulty swallowing solid food in the past few days has been using only liquid diet. Heart is regular but appears to be hyperdynamic. There are prominent veins over the chest wall and anterior abdominal wall. Abdomen is not distended is flat bowel sound is very hyperactive. There is tenderness in the epigastric area. Lower extremities there is no prominent veins. No pitting edema. Left upper extremity there is prominent AV fistula very prominent thrill, and grade 3/6 systolic murmur. Over the arm the same murmur can be heard over the left thyroid. Results Result Diagram: 12/04/16 0732 12/04/16 0732 Results 24 hrs Laboratory Tests Test 12/03/16 19:28 12/04/16 07:32 12/04/16 07:33 Phosphorus Level 8.3 H Thyroid Stimulating Hormone (TSH) 0.208 L Free Thyroxine 0.60 L Parathyroid Hormone (Intact) White Blood Count 4.5 #L Red Blood Count 2.44 L Hemoglobin 8.2 L Hematocrit 25.6 L Mean Corpuscular Volume 104.9 H Mean Corpuscular Hemoglobin 33.6 H Mean Corpuscular Hemoglobin Concent 32.0 Red Cell Distribution Width 15.3 H Platelet Count 127 L Mean Platelet Volume 9.9 Neutrophils % 60.5 Lymphocytes % 26.7 Monocytes % 8.2 Eosinophils % 4.0 Basophils % 0.2 Nucleated Red Blood Cells % 0.0 Neutrophils # 2.7 Lymphocytes # 1.2 Monocytes # 0.4 Eosinophils # 0.2 Basophils # 0.0 Nucleated Red Blood Cells # 0.0 Sodium Level 143 Potassium Level 4.5 Chloride Level 93 L Carbon Dioxide Level 28 Anion Gap 27 H Blood Urea Nitrogen 43 #H Creatinine 7.03 #H Glucose Level 84 Calcium Level 10.5 H Troponin I < 0.012 Triglycerides Level 125 Cholesterol Level 108 LDL Cholesterol, Calculated 43 HDL Cholesterol 40 Cholesterol/HDL Ratio 2.7 Medications Medications Current Medications Acetaminophen (Tylenol Tab) 650 mg Q4H PRN PO PAIN AND OR ELEVATED TEMP; Start 12/02/16 at 23:00 Hydralazine HCl (Apresoline) 25 mg Q6H PRN PO SBP >170; Start 12/02/16 at 23:00 Morphine Sulfate (morphine) 2 mg Q4H PRN IV MODERATE PAIN LEVEL 4-6 Last administered on 12/04/16 14:15; Admin Dose 2 MG; Start 12/02/16 at 23:00 Diphenhydramine HCl (Benadryl) 25 mg Q6H PRN IV Itching Last administered on 12:35; Admin Dose 25 MG; Start 12/02/16 at 23:00 Ondansetron HCl (Zofran Inj) 4 mg Q6H PRN IV NAUSEA AND/OR VOMITING; Start 02/09 at 19:30 Cinacalcet (Sensipar) 90 mg BID PO Last administered on 12/04/16 08:17; Admin Dose 90 MG; Start 12/03/16 at 21:30 Ibuprofen (Motrin) 600 mg Q8 GTB Last administered on 12/04/16 14:15; Admin Dose 600 MG; Start 12/04/16 at 14:00 Pantoprazole (Protonix Tab) 40 mg DAILY@06 PO Last administered on 12/04/16 14 :15; Admin Dose 40 MG; Start 12/04/16 at 14:00 TANISHA MALONEY MD Dec 04, 2016 17:27
--- NOTE | 2016-12-04 18:18 | PN ---
Date/Time of Note Date/Time of Note DATE: 12/04/16 TIME: 18:06 Assessment/Plan VTE Prophylaxis VTE Prophylaxis Intervention: SCD's Lines/Catheters IV [facility]from [facility] Saline Lock Assessment/Plan Chief Complaint/Hosp Course Pt complained of difficulty swallowing, neck pressure, denies N/V, denies SOB, denies chest pain, denies fever. Problems: Assessment/Plan -Odynophagia -Thyrotoxicosis with multinodular goiter, Dr. Damon is following in endocrinology consultation. Dr. Red is following in general surgery consultation. -History of hyperparathyroidism -Hemodialysis dependent end-stage renal disease, Dr. Silverio following in nephrology -Possible vein disorder, Dr. Francisco is asked to see patient in vascular surgery consultation Further recommendations based on clinical course. Plan of care discussed with Dr. Turner Exam/Review of Systems Vital Signs Vitals Vital Signs Date Time Temp Pulse Resp B/P Pulse Ox O2 Delivery O2 Flow Rate FiO2 12/04/16 16:54 89 12/04/16 15:46 98.4 18 99/52 96 12/03/16 12:11 Room Air Intake and Output 12/03/16 12/03/16 12/04/16 15:00 23:00 07:00 Intake Total 300 ml 320 ml 400 ml Output Total 3500 ml 3500 ml Balance -3200 ml -3180 ml 400 ml Exam Constitutional: alert, oriented Neck: other (Tenderness), thyromegaly Cardiovascular: nl pulses Gastrointestinal: non-tender, soft Extremities: normal pulses, other (Left upper extremity AV fistula) 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: nl mental status Results Result Diagram: 12/04/16 0732 12/04/16 0732 Results 24 hrs Laboratory Tests Test 12/03/16 19:28 12/04/16 07:32 12/04/16 07:33 Phosphorus Level 8.3 H Thyroid Stimulating Hormone (TSH) 0.208 L Free Thyroxine 0.60 L Parathyroid Hormone (Intact) White Blood Count 4.5 #L Red Blood Count 2.44 L Hemoglobin 8.2 L Hematocrit 25.6 L Mean Corpuscular Volume 104.9 H Mean Corpuscular Hemoglobin 33.6 H Mean Corpuscular Hemoglobin Concent 32.0 Red Cell Distribution Width 15.3 H Platelet Count 127 L Mean Platelet Volume 9.9 Neutrophils % 60.5 Lymphocytes % 26.7 Monocytes % 8.2 Eosinophils % 4.0 Basophils % 0.2 Nucleated Red Blood Cells % 0.0 Neutrophils # 2.7 Lymphocytes # 1.2 Monocytes # 0.4 Eosinophils # 0.2 Basophils # 0.0 Nucleated Red Blood Cells # 0.0 Sodium Level 143 Potassium Level 4.5 Chloride Level 93 L Carbon Dioxide Level 28 Anion Gap 27 H Blood Urea Nitrogen 43 #H Creatinine 7.03 #H Glucose Level 84 Calcium Level 10.5 H Troponin I < 0.012 Triglycerides Level 125 Cholesterol Level 108 LDL Cholesterol, Calculated 43 HDL Cholesterol 40 Cholesterol/HDL Ratio 2.7 Medications Medications Current Medications Acetaminophen (Tylenol Tab) 650 mg Q4H PRN PO PAIN AND OR ELEVATED TEMP; Start 12/02/16 at 23:00 Hydralazine HCl (Apresoline) 25 mg Q6H PRN PO SBP >170; Start 12/02/16 at 23:00 Morphine Sulfate (morphine) 2 mg Q4H PRN IV MODERATE PAIN LEVEL 4-6 Last administered on 12/04/16 14:15; Admin Dose 2 MG; Start 12/02/16 at 23:00 Diphenhydramine HCl (Benadryl) 25 mg Q6H PRN IV Itching Last administered on 12:35; Admin Dose 25 MG; Start 12/02/16 at 23:00 Ondansetron HCl (Zofran Inj) 4 mg Q6H PRN IV NAUSEA AND/OR VOMITING; Start 02/09 at 19:30 Cinacalcet (Sensipar) 90 mg BID PO Last administered on 12/04/16 08:17; Admin Dose 90 MG; Start 12/03/16 at 21:30 Ibuprofen (Motrin) 600 mg Q8 GTB Last administered on 12/04/16 14:15; Admin Dose 600 MG; Start 12/04/16 at 14:00 Pantoprazole (Protonix Tab) 40 mg DAILY@06 PO Last administered on 12/04/16 14 :15; Admin Dose 40 MG; Start 12/04/16 at 14:00 ERICK ROBERTSON Dec 04, 2016 18:16
--- NOTE | 2016-12-04 21:32 | CONS ---
Date/Time of Note Date/Time of Note DATE: 12/04/16 TIME: 21:24 Assessment/Plan Assessment/Plan Additional Assessment/Plan 1. dysphagia,mostly secondary to multinodular goiter 2. Hypotension, borderline. 3. Goiter multinodular. 4. End-stage renal disease on hemodialysis. 5. Hyperkalemia resolved. 6. Abdominal pain. 7. increased alkaline phosphate secondary to hyperparathyroidism Plan parathyroidectomy as per surgery Bentyl PPI continue present care. Consultation Date/Type/Reason Admit Date/Time Dec 02, 2016 at 17:19 Reason for Consultation abdominal pain and dysphagia Hx of Present Illness 31 year old female with history of ESRD,admitted for abdominal pain,dysphagia. no nausea,vomiting or gi bleeding.No chest pain or SOB. Constitutional: improved, no complaints Eyes: no complaints ENT: other Respiratory: no complaints Cardiovascular: no complaints Gastrointestinal: no complaints Genitourinary: no complaints Musculoskeletal: no complaints Neurologic: no complaints Psychological: no complaints Past Medical History Medical History: hypertension, renal disease, other (MNG, secondary hyperparathyroidism, Liver biopsy w/ unknown diagnosis) Past Surgical History Past Surgical Hx: other (multiple permacath placements, AV fistula placement) Social History Alcohol Use: none Smoking Status: Never smoker Drug Use: none Exam/Review of Systems Vital Signs Vitals Vital Signs Date Time Temp Pulse Resp B/P Pulse Ox O2 Delivery O2 Flow Rate FiO2 12/04/16 20:08 93 12/04/16 19:54 98.6 19 106/61 97 12/03/16 12:11 Room Air Intake and Output 12/03/16 12/03/16 12/04/16 15:00 23:00 07:00 Intake Total 300 ml 320 ml 400 ml Output Total 3500 ml 3500 ml Balance -3200 ml -3180 ml 400 ml Exam Constitutional: alert, oriented, well developed Psych: nl mood/affect, no complaints Head: atraumatic, normocephalic Eyes: EOMI, PERRL, nl conjunctiva, nl lids, nl sclera ENMT: nl external ears & nose, nl lips & teeth, nl nasal mucosa & septum Neck: non-tender, supple Respiratory: clear to auscultation, normal air movement Cardiovascular: nl pulses, regular rate and rhythm Gastrointestinal: nl liver, spleen, non-tender, soft Musculoskeletal: nl extremities to inspection, nl gait and stance Extremities: normal pulses 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: TRANSCRIPTIONIST II-XII intact, nl mental status, nl speech, nl strength Skin: nl turgor, No rash or lesions Lymph: nl lymph nodes Results Result Diagram: 12/04/16 0732 12/04/16 0732 Results 24 hrs Laboratory Tests Test 12/04/16 07:32 12/04/16 07:33 White Blood Count 4.5 #L Red Blood Count 2.44 L Hemoglobin 8.2 L Hematocrit 25.6 L Mean Corpuscular Volume 104.9 H Mean Corpuscular Hemoglobin 33.6 H Mean Corpuscular Hemoglobin Concent 32.0 Red Cell Distribution Width 15.3 H Platelet Count 127 L Mean Platelet Volume 9.9 Neutrophils % 60.5 Lymphocytes % 26.7 Monocytes % 8.2 Eosinophils % 4.0 Basophils % 0.2 Nucleated Red Blood Cells % 0.0 Neutrophils # 2.7 Lymphocytes # 1.2 Monocytes # 0.4 Eosinophils # 0.2 Basophils # 0.0 Nucleated Red Blood Cells # 0.0 Sodium Level 143 Potassium Level 4.5 Chloride Level 93 L Carbon Dioxide Level 28 Anion Gap 27 H Blood Urea Nitrogen 43 #H Creatinine 7.03 #H Glucose Level 84 Calcium Level 10.5 H Troponin I < 0.012 Triglycerides Level 125 Cholesterol Level 108 LDL Cholesterol, Calculated 43 HDL Cholesterol 40 Cholesterol/HDL Ratio 2.7 Medications Medications Current Medications Acetaminophen (Tylenol Tab) 650 mg Q4H PRN PO PAIN AND OR ELEVATED TEMP; Start 12/02/16 at 23:00 Hydralazine HCl (Apresoline) 25 mg Q6H PRN PO SBP >170; Start 12/02/16 at 23:00 Morphine Sulfate (morphine) 2 mg Q4H PRN IV MODERATE PAIN LEVEL 4-6 Last administered on 12/04/16 18:35; Admin Dose 2 MG; Start 12/02/16 at 23:00 Diphenhydramine HCl (Benadryl) 25 mg Q6H PRN IV Itching Last administered on 18:36; Admin Dose 25 MG; Start 12/02/16 at 23:00 Ondansetron HCl (Zofran Inj) 4 mg Q6H PRN IV NAUSEA AND/OR VOMITING; Start 02/09 at 19:30 Cinacalcet (Sensipar) 90 mg BID PO Last administered on 12/04/16 20:51; Admin Dose 90 MG; Start 12/03/16 at 21:30 Ibuprofen (Motrin) 600 mg Q8 GTB Last administered on 12/04/16 14:15; Admin Dose 600 MG; Start 12/04/16 at 14:00 Pantoprazole (Protonix Tab) 40 mg DAILY@06 PO Last administered on 12/04/16 14 :15; Admin Dose 40 MG; Start 12/04/16 at 14:00 FREDERIC GARCIA MD Dec 04, 2016 21:32
--- NOTE | 2016-12-04 22:47 | CONS ---
DATE OF ADMISSION: 12/02/2016 DATE OF CONSULTATION: 12/04/2016 REASON FOR CONSULTATION: Consultation for General Surgery. INDICATION: This is a 31-year-old woman with multiple medical problems. She had initially missed her dialysis and had abdominal pain and fullness in the neck and she was admitted through the ER. She was seen by Dr. Red in the office for thyroid mass, hyperparathyroidism and thyroid goiter and was being managed by him. Dr. Red is currently on vacation and I was asked to evaluate the patient. The patient has a past medical history of end-stage kidney disease, normal dialysis on Wednesday, Wednesday, and Wednesday. She also is undergoing thyroid evaluation. She had an ultrasound done showing a cystic mass meeting biopsy criteria. She also has tertiary hyperparathyroidism. She has some fullness in the neck with some pressure on swallowing and some discomfort with breathing. She denies any chest pain, palpitations, fevers, chills, weight loss, vomiting or diarrhea. The patient is being followed by Endocrinology and by Cardiology. She had an ultrasound showing a 2.2 cm cystic lesion that is complex. General Surgery was consulted for ongoing management and evaluation. PAST MEDICAL HISTORY: End-stage kidney disease, on hemodialysis, thyroid mass and goiter, hyperparathyroidism, ovarian cyst, and elevated BNP. PAST SURGICAL HISTORY: Left arm AV fistula. PHYSICAL EXAMINATION: VITAL SIGNS: Temperature is 98.3, pulse is 96, respiratory rate is 17, and blood pressure is 106/60. GENERAL: No acute distress. NECK: Supple, midline. LUNGS: Clear to auscultation bilaterally. HEART: Normal S1, S2. Regular rate and rhythm. GASTROINTESTINAL: Nontender, soft. No peritoneal signs. MUSCULOSKELETAL: Nonfocal exam. EXTREMITIES: Normal pulses. LABORATORY: White blood cell count 4.5, hemoglobin is 8.2, hematocrit 25.6, and platelets 127. Chemistry, sodium is 143, potassium 4.5, chloride 93, CO2 28, BUN is 43, creatinine is 7.0, glucose 84, calcium is 10.5. IMAGING: Gallbladder ultrasound shows contracted gallbladder, which limits evaluation. No obvious gallstones or sludge. Common bile duct borderline 5.7, pancreas not visualized. Right kidney not visualized. Thyroid ultrasound showed multinodular goiter with 2.2 cm complex cystic nodule in the left mid gland. IMPRESSION AND PLAN: This is a 31-year-old female with multiple medical problems, with dialysis and was seen by Dr. Red for her thyroid and parathyroid management. Currently she is under no distress. Recommend endocrinologic evaluation and management with medical optimization prior to other interventions. She may also get a thyroid FNA biopsy as an outpatient. She also needs a re-evaluation of her gallbladder with either repeat ultrasound or MRCP as an outpatient. Patient to follow up with Dr. Red as an outpatient. Dictated By: Omar Bradley /facundo/ /Document#: [id number]
[2016-12-05] VITALS (19 sets, daily range): BP systolic 89–107; BP diastolic 49–61; PULSE 85–102; RESP 15–19
--- NOTE | 2016-12-05 00:13 | CONS ---
Date/Time of Note Date/Time of Note DATE: 12/04/16 TIME: 13:10 Assessment/Plan Assessment/Plan Additional Assessment/Plan Pt seen by GI & V Sx for evaluation of dysphagia Await further w/u tho ENT consult is still pending Cont'd Hospitalization Reason: Next HD on Wednesday with no Heparin Consultation Date/Type/Reason Admit Date/Time Dec 02, 2016 at 17:19 Initial Consult Date 12/04/16 Type of Consultation: renal Referring Provider: LUANNE WALTER MD Exam/Review of Systems Vital Signs Vitals Vital Signs Date Time Temp Pulse Resp B/P Pulse Ox O2 Delivery O2 Flow Rate FiO2 12/04/16 20:08 93 12/04/16 19:54 98.6 19 106/61 97 12/03/16 12:11 Room Air Intake and Output 12/04/16 12/04/16 12/05/16 15:00 23:00 07:00 Intake Total 300 ml 120 ml Balance 300 ml 120 ml Exam Constitutional: alert, oriented, well developed Psych: anxiety, nl mood/affect, no complaints Head: atraumatic, normocephalic Eyes: EOMI, PERRL, nl conjunctiva, nl lids, nl sclera ENMT: nl external ears & nose, nl lips & teeth, nl nasal mucosa & septum Neck: masses (?thyroid vs parathyroid), non-tender, supple Respiratory: clear to auscultation, normal air movement Cardiovascular: nl pulses, regular rate and rhythm Gastrointestinal: nl liver, spleen, non-tender, soft Musculoskeletal: nl extremities to inspection, nl gait and stance Extremities: normal pulses, other (lt arm avf bruit present.) 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: ELECTRICAL TESTER BATTERY II-XII intact, nl mental status, nl speech, nl strength Skin: nl turgor, other (pale), No rash or lesions Lymph: nl lymph nodes Additional Comments Pt was seen during Hemodialysis Results Hct 25% Result Diagram: 12/04/1632 12/04/16 0732 Results 24 hrs Laboratory Tests Test 12/04/16 07:32 12/04/16 07:33 White Blood Count 4.5 #L Red Blood Count 2.44 L Hemoglobin 8.2 L Hematocrit 25.6 L Mean Corpuscular Volume 104.9 H Mean Corpuscular Hemoglobin 33.6 H Mean Corpuscular Hemoglobin Concent 32.0 Red Cell Distribution Width 15.3 H Platelet Count 127 L Mean Platelet Volume 9.9 Neutrophils % 60.5 Lymphocytes % 26.7 Monocytes % 8.2 Eosinophils % 4.0 Basophils % 0.2 Nucleated Red Blood Cells % 0.0 Neutrophils # 2.7 Lymphocytes # 1.2 Monocytes # 0.4 Eosinophils # 0.2 Basophils # 0.0 Nucleated Red Blood Cells # 0.0 Sodium Level 143 Potassium Level 4.5 Chloride Level 93 L Carbon Dioxide Level 28 Anion Gap 27 H Blood Urea Nitrogen 43 #H Creatinine 7.03 #H Glucose Level 84 Calcium Level 10.5 H Troponin I < 0.012 Triglycerides Level 125 Cholesterol Level 108 LDL Cholesterol, Calculated 43 HDL Cholesterol 40 Cholesterol/HDL Ratio 2.7 Medications Medications Current Medications Acetaminophen (Tylenol Tab) 650 mg Q4H PRN PO PAIN AND OR ELEVATED TEMP; Start 12/02/16 at 23:00 Hydralazine HCl (Apresoline) 25 mg Q6H PRN PO SBP >170; Start 12/02/16 at 23:00 Morphine Sulfate (morphine) 2 mg Q4H PRN IV MODERATE PAIN LEVEL 4-6 Last administered on 12/04/16 18:35; Admin Dose 2 MG; Start 12/02/16 at 23:00 Diphenhydramine HCl (Benadryl) 25 mg Q6H PRN IV Itching Last administered on 18:36; Admin Dose 25 MG; Start 12/02/16 at 23:00 Ondansetron HCl (Zofran Inj) 4 mg Q6H PRN IV NAUSEA AND/OR VOMITING; Start 02/09 at 19:30 Cinacalcet (Sensipar) 90 mg BID PO Last administered on 12/04/16 20:51; Admin Dose 90 MG; Start 12/03/16 at 21:30 Ibuprofen (Motrin) 600 mg Q8 GTB Last administered on 12/04/16 22:12; Admin Dose 600 MG; Start 12/04/16 at 14:00 Pantoprazole (Protonix Tab) 40 mg DAILY@06 PO Last administered on 12/04/16 14 :15; Admin Dose 40 MG; Start 12/04/16 at 14:00 CAMERON ISIDRO MD Dec 05, 2016 00:13
[2016-12-05] MEDS: morphine 2 MG INJ IV PRN ×5 (00:58→23:05)
[2016-12-05] MEDS: DIPHENHYDRAMINE 50 MG INJ IV PRN ×4 (01:00→19:02)
[2016-12-05] MEDS: PANTOPRAZOLE (EC) 40 MG TAB PO SCH (05:26)
[2016-12-05] MEDS: IBUPROFEN 600 MG TAB GTB SCH ×2 (05:26→16:29)
[2016-12-05] MEDS: SEVELAMER 800 MG TAB PO SCH ×3 (07:45→17:05)
[2016-12-05 08:27] LABS: T3 UPTAKE 35.6 % (23.5-40.5)
[2016-12-05 08:41] LABS: TRIIODOTHYRONINE 1.12 ng/ml (0.97-1.69)
--- NOTE | 2016-12-05 08:52 | RADRPT ---
PROCEDURE: CT scan of the neck without contrast. CLINICAL INDICATION: pain; lump TECHNIQUE: CT scan of the neck was performed. The patient was examined without the use of intrave nous iodinated contrast. No reported complications occurred. One or more of the following dose re duction techniques were used: Automated exposure control, Adjustment of the mA and/or kV according t o patient size, and/or use of iterative reconstruction technique. DOSE: CTDI = 8 mGy and the DLP = 171 mGy-cm. COMPARISON: None available FINDINGS: Evaluation of the soft tissues and vasculature is limited without contrast. Multiple large nodules are seen posterior to the thyroid gland. There is a posterior left thyroid l obe region nodule measuring 2.0 x 2.0 cm. Additionally partially calcified nodules are seen in the region of the parathyroid glands measuring 14 x 11 mm on the left and 7 x 8 mm on the right. The le ft lesion has mass effect and indentation on the left lateral wall of the esophagus. Inferior to th e thyroid isthmus are additional partially calcified nodules measuring 19 x 12 mm. No evidence of cervical lymphadenopathy. The bilateral parotid and submandibular glands are unremarkable No significant airway narrowing The bilateral prestyloid parapharyngeal spaces and retropharyngeal s paces are unremarkable. Right posterior ethmoid sinus mucosal thickening. Ground-glass changes are visualized to the mandible, maxilla and visualized skull base. There are al so patchy sclerotic changes to the cervical vertebrae. IMPRESSION: Multiple large nodules are seen posterior to the thyroid gland. There is a posterior left thyroid l obe region nodule measuring 2.0 x 2.0 cm. Additionally partially calcified nodules are seen in the region of the parathyroid glands measuring 14 x 11 mm on the left and 7 x 8 mm on the right. The le ft lesion has mass effect and indentation on the left lateral wall of the esophagus. Inferior to th e thyroid isthmus are additional partially calcified nodules measuring 19 x 12 mm. No evidence of bulky cervical lymphadenopathy. Ground-glass changes are visualized to the mandible, maxilla and visualized skull base which is inde terminate. There are also patchy sclerotic changes to the cervical vertebrae. This may be related to an underlying metabolic process of the bone. Fibrous dysplasia involving the mandible, maxilla, and skull base may also have this appearance. A neoplastic process is felt less likely, however, cannot be entirely excluded on imaging. Recommend correlation with patient history and followup. RPTAT: AA .Reece Florentino MD, MD Date Time Electronically viewed and signed by .Reece Florentino MD, MD on 12/05/2016 08:52 .T/
--- NOTE | 2016-12-05 11:13 | RADRPT ---
Vent Rate: 90 bpm RR Interval: 0 msec VT Interval: 138 msec QRS Duration: 80 msec QT Interval: 356 msec QTC Interval: 435 msec P-R-T [place]: 62 - 47 - 54 degrees Normal sinus rhythm Normal ECG Electronically Signed By: Elmer Oliver [id number]
[2016-12-05] MEDS: CINACALCET 30 MG TAB PO SCH ×2 (11:46→21:13)
--- NOTE | 2016-12-05 15:06 | CONS ---
Date/Time of Note Date/Time of Note DATE: 12/05/16 TIME: 15:03 Assessment/Plan Assessment/Plan Additional Assessment/Plan CHF ESRD on HD Hyperkalemia Goiter multinodular. Anemia Hemodynamically stable Heart failure clinically stable Continue HD as scheduled Continue Renagel and Sensipar Continue GI prophylaxis Consultation Date/Type/Reason Admit Date/Time Dec 02, 2016 at 17:19 Constitutional: improved, no complaints Eyes: no complaints ENT: other Respiratory: no complaints Cardiovascular: no complaints Gastrointestinal: no complaints Genitourinary: no complaints Musculoskeletal: no complaints Neurologic: no complaints Psychological: nl mood/affect, no complaints Past Medical History Medical History: hypertension, renal disease, other (MNG, secondary hyperparathyroidism, Liver biopsy w/ unknown diagnosis) Past Surgical History Past Surgical Hx: other (multiple permacath placements, AV fistula placement) Social History Alcohol Use: none Smoking Status: Never smoker Drug Use: none Exam/Review of Systems Vital Signs Vitals Vital Signs Date Time Temp Pulse Resp B/P Pulse Ox O2 Delivery O2 Flow Rate FiO2 12/05/16 12:19 88 12/05/16 12:15 20 12/05/16 12:10 98.1 89/55 98 12/03/16 12:11 Room Air Intake and Output 12/04/16 12/04/16 12/05/16 15:00 23:00 07:00 Intake Total 300 ml 120 ml 150 ml Balance 300 ml 120 ml 150 ml Exam Constitutional: alert Head: atraumatic, normocephalic Neck: non-tender, supple Respiratory: clear to auscultation Cardiovascular: regular rate and rhythm Gastrointestinal: nl liver, spleen, non-tender, soft Extremities: normal pulses Results Result Diagram: 12/04/16 0732 12/04/16 0732 Results 24 hrs Laboratory Tests Test 12/05/16 06:59 Free Thyroxine Index 1.17 Thyroxine (T4) 3.3 L Total Triiodothyronine 1.12 Triiodothyronine (T3) Uptake 35.6 Medications Medications Current Medications Acetaminophen (Tylenol Tab) 650 mg Q4H PRN PO PAIN AND OR ELEVATED TEMP; Start 12/02/16 at 23:00 Hydralazine HCl (Apresoline) 25 mg Q6H PRN PO SBP >170; Start 12/02/16 at 23:00 Morphine Sulfate (morphine) 2 mg Q4H PRN IV MODERATE PAIN LEVEL 4-6 Last administered on 12/05/16 13:03; Admin Dose 2 MG; Start 12/02/16 at 23:00 Diphenhydramine HCl (Benadryl) 25 mg Q6H PRN IV Itching Last administered on 12:59; Admin Dose 25 MG; Start 12/02/16 at 23:00 Ondansetron HCl (Zofran Inj) 4 mg Q6H PRN IV NAUSEA AND/OR VOMITING; Start 02/09 at 19:30 Cinacalcet (Sensipar) 90 mg BID PO Last administered on 12/05/16 11:46; Admin Dose 90 MG; Start 12/03/16 at 21:30 Ibuprofen (Motrin) 600 mg Q8 GTB Last administered on 12/05/16 05:26; Admin Dose 600 MG; Start 12/04/16 at 14:00 Pantoprazole (Protonix Tab) 40 mg DAILY@06 PO Last administered on 12/05/16 05 :26; Admin Dose 40 MG; Start 12/04/16 at 14:00 VAUGHN ABBOTT M.D. Dec 05, 2016 15:06
--- NOTE | 2016-12-05 16:53 | PN ---
Date/Time of Note Date/Time of Note DATE: 12/05/16 TIME: 16:32 Assessment/Plan VTE Prophylaxis VTE Prophylaxis Intervention: ambulation Lines/Catheters IV [facility] ([facility] Saline Lock Assessment/Plan Chief Complaint/Hosp Course 31-year-old patient is admitted with the following diagnosis 1. End-stage renal disease on hemodialysis. 2. Soft tissue swelling of the neck and very recent onset of dysphagia and odynophagia patient only can drink liquids rule out the cause 3. 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 4. Venous hypertension in the neck and in the upper thorax secondary to AV fistula on the left side. 5. Rule out bleeding in the thyroid cyst or parathyroid adenoma. #6 6. Abdominal pain rule out the cause. Plan and suggestion Recommend vascular consultation to evaluate the effect of hyperdynamic condition produced by AV fistula. Recommend endocrinology consultation which apparently is in the process. Recommend CT scan of the neck soft tissue at this time without contrast Thank you Dr. Turner for involving us to consult on this very interesting and complicated patient. I think if he can get a consultation from ENT specialist is going to be valuable as well Problems: Assessment/Plan This 31-year-old female with end-stage renal disease with hemodialysis as scheduled on Wednesday was admitted due to failure has not had hemodialysis for 2 incisions. Hyperkalemia. Feeling of pressure over the neck for about 2 months. Recent onset of the pain over the lateral aspect of the left neck for about a week. And also dysphagia for solid food. The soft tissue technique CT scan of the neck has revealed presence of 2 x 2 cm nodule in the thyroid on the left side. Also another nodule 1.1 x 1.4 cm over the placement of the left parathyroid.. This nodule apparently has caused some indentation over the lateral aspect of the esophagus. Also some calcification at the level of the right parathyroid posteriorly. Some other pathology has been reported on CT scan of the neck. . Today the patient is states that she has been feeling numbness of the left face and past 24 hours. On physical examination only there is numbness of the skin otherwise the muscular examination is normal. And symmetrical. . appears that this patient may have 3ry hyperparathyroidism. Possible bleeding in the, parathyroid glands on the left side causing recent onset of dysphagia. Also patient has venous hypertension over the upper thorax and neck and face. This most probably due to the enlarged size of the AV fistula on the left upper arm. I have requested Dr. Francisco the vascular surgeon to see the patient in this regard. i will discuss the case with Dr. Red when his back from vacation on Wednesday. Will await results of the investigation by quantitative developer and vascular surgeon. Subjective 24 Hr Interval Summary Free Text/Dictation Complains of numbness of the left side of the face since past 48 hours.. Overall feels slightly better today. Still has dysphagia and odynophagia on solid food. Exam/Review of Systems Vital Signs Vitals Vital Signs Date Time Temp Pulse Resp B/P Pulse Ox O2 Delivery O2 Flow Rate FiO2 12/05/16 16:09 97.9 94 17 98/55 99 12/03/16 12:11 Room Air Intake and Output 12/04/16 12/04/16 12/05/16 15:00 23:00 07:00 Intake Total 300 ml 120 ml 150 ml Balance 300 ml 120 ml 150 ml Exam Awake alert oriented 3. Sitting on the bed. In sitting position she is not in any acute distress. Vital signs are stable though the heart rate is in upper 80s and blood pressure is in 80s and 90s. No fever. Soft tissue of the neck CT scan was done last night. He does report a 2 x 2 centimeter nodule posterior to the thyroid also is reported to calcified nodule at the position of the parathyroid. They have seen that the left parathyroid calcified nodule is pressing over the lateral aspect of the esophagus. For full detail of the soft tissue CT scan report please refer to the report. They have not mentioned anything about enlarged thyroid lobes. Results Result Diagram: 12/04/16 0732 12/04/16 0732 Results 24 hrs Laboratory Tests Test 12/05/16 06:59 Free Thyroxine Index 1.17 Thyroxine (T4) 3.3 L Total Triiodothyronine 1.12 Triiodothyronine (T3) Uptake 35.6 Medications Medications Current Medications Acetaminophen (Tylenol Tab) 650 mg Q4H PRN PO PAIN AND OR ELEVATED TEMP; Start 12/02/16 at 23:00 Hydralazine HCl (Apresoline) 25 mg Q6H PRN PO SBP >170; Start 12/02/16 at 23:00 Morphine Sulfate (morphine) 2 mg Q4H PRN IV MODERATE PAIN LEVEL 4-6 Last administered on 12/05/16 13:03; Admin Dose 2 MG; Start 12/02/16 at 23:00 Diphenhydramine HCl (Benadryl) 25 mg Q6H PRN IV Itching Last administered on 12:59; Admin Dose 25 MG; Start 12/02/16 at 23:00 Ondansetron HCl (Zofran Inj) 4 mg Q6H PRN IV NAUSEA AND/OR VOMITING; Start 02/09 at 19:30 Cinacalcet (Sensipar) 90 mg BID PO Last administered on 12/05/16 11:46; Admin Dose 90 MG; Start 12/03/16 at 21:30 Ibuprofen (Motrin) 600 mg Q8 GTB Last administered on 12/05/16 16:29; Admin Dose 600 MG; Start 12/04/16 at 14:00 Pantoprazole (Protonix Tab) 40 mg DAILY@06 PO Last administered on 12/05/16 05 :26; Admin Dose 40 MG; Start 12/04/16 at 14:00 TANISHA MALONEY MD Dec 05, 2016 16:50
--- NOTE | 2016-12-05 20:19 | PN ---
Date/Time of Note Date/Time of Note DATE: 12/05/16 TIME: 20:09 Assessment/Plan VTE Prophylaxis VTE Prophylaxis Intervention: SCD's Lines/Catheters IV Catheter Type (from Nrsg): Saline Lock Assessment/Plan Assessment/Plan -Odynophagia and dysphagia sec to Soft tissue swelling of the neck -Thyrotoxicosis with multinodular goiter - per Dr. Damon in endocrinology consultation. - per Dr. Lainez in general surgery consultation. 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 - per cardio -Hemodialysis dependent end-stage renal disease - per Dr. Silverio in nephrology -Possible vein disorder - per Dr. Francisco in vascular surgery consultation Further recommendations based on clinical course. Plan of care discussed with Dr. Turner Subjective 24 Hr Interval Summary Free Text/Dictation resting/seems, comfortable, denies any shortness ob breath, c/o left neck pain, dw satff Respiratory: no complaints Cardiovascular: no complaints Gastrointestinal: pain Genitourinary: no complaints Musculoskeletal: neck pain Exam/Review of Systems Vital Signs Vitals Vital Signs Date Time Temp Pulse Resp B/P Pulse Ox O2 Delivery O2 Flow Rate FiO2 12/05/16 16:09 97.9 94 17 98/55 99 12/03/16 12:11 Room Air Intake and Output 12/04/16 12/04/16 12/05/16 15:00 23:00 07:00 Intake Total 300 ml 120 ml 150 ml Balance 300 ml 120 ml 150 ml Exam Constitutional: alert, oriented, well developed Neck: masses (neck mass), other (Left neck swelling/ tenderness.) Respiratory: diminished breath sounds Cardiovascular: nl pulses, other (tachycardia, SR HR 92) Gastrointestinal: soft, tender (generelized tenderness) Musculoskeletal: nl extremities to inspection Extremities: normal pulses 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: nl mental status, nl speech Results Result Diagram: 12/04/16 0732 12/04/16 0732 Results 24 hrs Laboratory Tests Test 12/05/16 06:59 Free Thyroxine Index 1.17 Thyroxine (T4) 3.3 L Total Triiodothyronine 1.12 Triiodothyronine (T3) Uptake 35.6 Medications Medications Current Medications Acetaminophen (Tylenol Tab) 650 mg Q4H PRN PO PAIN AND OR ELEVATED TEMP; Start 12/02/16 at 23:00 Hydralazine HCl (Apresoline) 25 mg Q6H PRN PO SBP >170; Start 12/02/16 at 23:00 Morphine Sulfate (morphine) 2 mg Q4H PRN IV MODERATE PAIN LEVEL 4-6 Last administered on 12/05/16 19:02; Admin Dose 2 MG; Start 12/02/16 at 23:00 Diphenhydramine HCl (Benadryl) 25 mg Q6H PRN IV Itching Last administered on 19:02; Admin Dose 25 MG; Start 12/02/16 at 23:00 Ondansetron HCl (Zofran Inj) 4 mg Q6H PRN IV NAUSEA AND/OR VOMITING; Start 02/09 at 19:30 Cinacalcet (Sensipar) 90 mg BID PO Last administered on 12/05/16 11:46; Admin Dose 90 MG; Start 12/03/16 at 21:30 Ibuprofen (Motrin) 600 mg Q8 GTB Last administered on 12/05/16 16:29; Admin Dose 600 MG; Start 12/04/16 at 14:00 Pantoprazole (Protonix Tab) 40 mg DAILY@06 PO Last administered on 12/05/16 05 :26; Admin Dose 40 MG; Start 12/04/16 at 14:00 EDILMA CASIANO Dec 05, 2016 20:19
[2016-12-05] MEDS ORDERED: EPOETIN 10000 UNITS/1 ML INJ (ESRD) SC ONE (21:30)
[2016-12-05] MEDS: IBUPROFEN 600 MG TAB PO SCH (22:06)
--- NOTE | 2016-12-05 23:06 | CONS ---
Date/Time of Note Date/Time of Note DATE: 12/05/16 TIME: 23:02 Assessment/Plan Assessment/Plan Chief Complaint/Hosp Course Impression: 1. dysphagia,mostly secondary to multinodular goiter 2. Hypotension, borderline. 3. Goiter multinodular. 4. End-stage renal disease on hemodialysis. 5. Hyperkalemia resolved. 6. Abdominal pain. 7. increased alkaline phosphate secondary to hyperparathyroidism Plan parathyroidectomy as per surgery Archana PPI consider ENT eval Problems: Consultation Date/Type/Reason Admit Date/Time Dec 02, 2016 at 17:19 Initial Consult Date 12/04/16 Type of Consultation: GI Referring Provider: LUANNE WALTER MD 24 HR Interval Summary Free Text/Dictation comfortable, denies any shortness ob breath, c/o left neck pain Constitutional: improved Exam/Review of Systems Vital Signs Vitals Vital Signs Date Time Temp Pulse Resp B/P Pulse Ox O2 Delivery O2 Flow Rate FiO2 12/05/16 20:15 93 12/05/16 20:00 98.8 18 95/49 97 12/03/16 12:11 Room Air Intake and Output 12/04/16 12/04/16 12/05/16 15:00 23:00 07:00 Intake Total 300 ml 120 ml 150 ml Balance 300 ml 120 ml 150 ml Exam Constitutional: alert, oriented Psych: nl mood/affect, no complaints Head: atraumatic, normocephalic Eyes: EOMI, nl conjunctiva, nl lids ENMT: nl external ears & nose, nl nasal mucosa & septum Neck: non-tender, supple Respiratory: clear to auscultation, normal air movement Cardiovascular: nl pulses, regular rate and rhythm Gastrointestinal: bowel sounds, non-tender, soft Results Result Diagram: 12/04/16 0732 12/04/16 0732 Results 24 hrs Laboratory Tests Test 12/05/16 06:59 Free Thyroxine Index 1.17 Thyroxine (T4) 3.3 L Total Triiodothyronine 1.12 Triiodothyronine (T3) Uptake 35.6 Medications Medications Current Medications Acetaminophen (Tylenol Tab) 650 mg Q4H PRN PO PAIN AND OR ELEVATED TEMP; Start 12/02/16 at 23:00 Hydralazine HCl (Apresoline) 25 mg Q6H PRN PO SBP >170; Start 12/02/16 at 23:00 Morphine Sulfate (morphine) 2 mg Q4H PRN IV MODERATE PAIN LEVEL 4-6 Last administered on 12/05/16 19:02; Admin Dose 2 MG; Start 12/02/16 at 23:00 Diphenhydramine HCl (Benadryl) 25 mg Q6H PRN IV Itching Last administered on 19:02; Admin Dose 25 MG; Start 12/02/16 at 23:00 Ondansetron HCl (Zofran Inj) 4 mg Q6H PRN IV NAUSEA AND/OR VOMITING; Start 02/09 at 19:30 Cinacalcet (Sensipar) 90 mg BID PO Last administered on 12/05/16 21:13; Admin Dose 90 MG; Start 12/03/16 at 21:30 Pantoprazole (Protonix Tab) 40 mg DAILY@06 PO Last administered on 12/05/16 05 :26; Admin Dose 40 MG; Start 12/04/16 at 14:00 Ibuprofen (Motrin) 600 mg Q8 PO Last administered on 12/05/16 22:06; Admin Dose 600 MG; Start 12/05/16 at 22:00 LIANA PASTOR MD Dec 05, 2016 23:06
[2016-12-06] VITALS (15 sets, daily range): BP systolic 90–126; BP diastolic 47–66; PULSE 86–118; RESP 16–20
[2016-12-06] MEDS: DIPHENHYDRAMINE 50 MG INJ IV PRN ×4 (01:25→21:11)
[2016-12-06] MEDS: PANTOPRAZOLE (EC) 40 MG TAB PO SCH (05:34)
[2016-12-06] MEDS: IBUPROFEN 600 MG TAB PO SCH ×3 (05:34→21:11)
[2016-12-06] MEDS: morphine 2 MG INJ IV PRN ×4 (05:34→21:11)
[2016-12-06 07:39] LABS: BASOPHILS % 0.5 % (0.0-2.0); EOSINOPHILS # 0.2 10^3/ul (0.0-0.5); EOSINOPHILS % 4.9 % (0.0-7.0); HEMATOCRIT 26.1 % (37.0-47.0); HEMOGLOBIN 8.1 g/dl (12.0-16.0); LYMPHOCYTES % 24.5 % (15.0-51.0); MEAN CORPUSCULAR HEMOGLOBIN 32.3 pg (29.0-33.0); MEAN PLATELET VOLUME 10.7 fl (7.4-10.4); MONOCYTE # 0.3 10^3/ul (0.3-0.9); MONOCYTES % 7.8 % (0.0-11.0); NEUTROPHIL # 2.6 10^3/ul (1.6-7.5); NEUTROPHILS % 62.1 % (39.0-77.0); PLATELET COUNT 139 10^3/UL (140-415); RED BLOOD COUNT 2.51 10^6/ul (4.20-5.40); RED CELL DISTRIBUTION WIDTH 14.8 % (11.5-14.5); WHITE BLOOD COUNT 4.1 10^3/ul (4.8-10.8)
[2016-12-06 08:02] LABS: ALBUMIN 3.8 g/dl (3.3-4.9); ALBUMIN/GLOBULIN RATIO 1.35; CALCIUM 10.3 mg/dl (8.4-10.2); CREATININE 6.05 mg/dl (0.44-1.00); PHOSPHORUS 8.6 mg/dl (2.5-4.9); POTASSIUM 4.7 mmol/L (3.5-5.1); TOTAL PROTEIN 6.6 g/dl (6.1-8.1)
[2016-12-06] MEDS: CINACALCET 30 MG TAB PO SCH ×2 (08:30→22:31)
[2016-12-06] MEDS: SEVELAMER 800 MG TAB PO SCH ×3 (08:30→18:26)
--- NOTE | 2016-12-06 12:02 | PN ---
Date/Time of Note Date/Time of Note DATE: 12/06/16 TIME: 11:14 Assessment/Plan VTE Prophylaxis VTE Prophylaxis Intervention: SCD's Lines/Catheters IV Catheter Type (from Nrsg): Saline Lock Assessment/Plan Assessment/Plan -Odynophagia and dysphagia sec to Soft tissue swelling of the neck -Thyrotoxicosis with multinodular goiter - per Dr. Damon in endocrinology consultation. - per Dr. Lainez in general surgery consultation. 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 - per cardio -Hemodialysis dependent end-stage renal disease - per Dr. Silverio in nephrology -Possible vein disorder - per Dr. Francisco in vascular surgery consultation Further recommendations based on clinical course. Plan of care discussed with Dr. Turner Exam/Review of Systems Vital Signs Vitals Vital Signs Date Time Temp Pulse Resp B/P Pulse Ox O2 Delivery O2 Flow Rate FiO2 12/06/16 08:34 93 98/55 12/06/16 07:29 97.9 16 99 12/03/16 12:11 Room Air Intake and Output 12/05/16 12/05/16 12/06/16 15:00 23:00 07:00 Intake Total 300 ml 980 ml Output Total 3300 ml 500 ml Balance -3000 ml 480 ml Exam Constitutional: alert, oriented, well developed Respiratory: clear to auscultation, normal air movement Cardiovascular: nl pulses, regular rate and rhythm Gastrointestinal: soft, tender Musculoskeletal: nl extremities to inspection Extremities: normal pulses 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: nl mental status, nl speech Results Result Diagram: 12/06/16 0702 12/06/16 0702 Results 24 hrs Laboratory Tests Test 12/06/16 07:02 White Blood Count 4.1 L Red Blood Count 2.51 L Hemoglobin 8.1 L Hematocrit 26.1 L Mean Corpuscular Volume 104.0 H Mean Corpuscular Hemoglobin 32.3 Mean Corpuscular Hemoglobin Concent 31.0 L Red Cell Distribution Width 14.8 H Platelet Count 139 L Mean Platelet Volume 10.7 H Neutrophils % 62.1 Lymphocytes % 24.5 Monocytes % 7.8 Eosinophils % 4.9 Basophils % 0.5 Nucleated Red Blood Cells % 0.0 Neutrophils # 2.6 Lymphocytes # 1.0 Monocytes # 0.3 Eosinophils # 0.2 Basophils # 0.0 Nucleated Red Blood Cells # 0.0 Sodium Level 137 Potassium Level 4.7 Chloride Level 96 L Carbon Dioxide Level 26 Anion Gap 20 #H Blood Urea Nitrogen 38 H Creatinine 6.05 H Glucose Level 62 #L Calcium Level 10.3 H Phosphorus Level 8.6 H Total Bilirubin 0.0 L Direct Bilirubin 0.00 Indirect Bilirubin 0.0 Aspartate Amino Transf (AST/SGOT) 14 L Alanine Aminotransferase (ALT/SGPT) 30 Alkaline Phosphatase 822 H Total Protein 6.6 Albumin 3.8 Globulin 2.80 Albumin/Globulin Ratio 1.35 Medications Medications Current Medications Acetaminophen (Tylenol Tab) 650 mg Q4H PRN PO PAIN AND OR ELEVATED TEMP; Start 12/02/16 at 23:00 Hydralazine HCl (Apresoline) 25 mg Q6H PRN PO SBP >170; Start 12/02/16 at 23:00 Morphine Sulfate (morphine) 2 mg Q4H PRN IV MODERATE PAIN LEVEL 4-6 Last administered on 12/06/16 10:52; Admin Dose 2 MG; Start 12/02/16 at 23:00 Diphenhydramine HCl (Benadryl) 25 mg Q6H PRN IV Itching Last administered on 08:30; Admin Dose 25 MG; Start 12/02/16 at 23:00 Ondansetron HCl (Zofran Inj) 4 mg Q6H PRN IV NAUSEA AND/OR VOMITING; Start 02/09 at 19:30 Cinacalcet (Sensipar) 90 mg BID PO Last administered on 12/06/16 08:30; Admin Dose 90 MG; Start 12/03/16 at 21:30 Pantoprazole (Protonix Tab) 40 mg DAILY@06 PO Last administered on 12/06/16 05 :34; Admin Dose 40 MG; Start 12/04/16 at 14:00 Ibuprofen (Motrin) 600 mg Q8 PO Last administered on 12/06/16 05:34; Admin Dose 600 MG; Start 12/05/16 at 22:00 EDILMA CASIANO Dec 06, 2016 11:24
--- NOTE | 2016-12-06 12:43 | RADRPT ---
PROCEDURE: US Carotids. CLINICAL INDICATION: bruit , LEFT CAROTID BRUIT- R/O CAROTID STENOSIS TECHNIQUE: Multiple sonographic of the carotid bifurcation region and vertebral arteries were obta ined utilizing ochoa scale, duplex and color-flow imaging. The images were reviewed on a PACS worksta tion. COMPARISON: 12/02/2016 FINDINGS: Evaluation of the right carotid bifurcation region reveals no significant calcific atherosclerotic d isease. Evaluation of the left carotid bifurcation region reveals no significant calcific atherosclerotic di sease. There is antegrade flow within the vertebral arteries bilaterally. RIGHT CAROTID MEASUREMENTS: Common Carotid [id number] (cm/sec) Internal Carotid Artery - [id number] (cm/sec) Internal Carotid Artery - [id number] (cm/sec) Internal Carotid Artery - [id number] (cm/sec) Internal Carotid/Common Carotid1.22 LEFT CAROTID MEASUREMENTS: Common Carotid [id number] (cm/sec) Internal Carotid Artery - [id number] (cm/sec) Internal Carotid Artery - grv151.7 (cm/sec) Internal Carotid Artery - .7 (cm/sec) Internal Carotid/Common Carotid1.01 RPTAT: AA IMPRESSION: Symmetrically increased velocities in the bilateral internal carotid arteries with normal internal c arotid to common carotid ratio are likely normal for patient's age. No evidence for hemodynamically significant stenosis in the bilateral internal carotid arteries - va lidated velocity measurements with angiographic measurements, velocity criteria are extrapolated fro m diameter data as defined by the Society of Radiologists in Ultrasound Consensus Conference Radiolo gy 2003; 229;340-346. This study does indirectly reference the measurement of the distal ICA diamet er as the denominator for stenosis measurement. Normal antegrade flow in the vertebral arteries bilaterally. .Keaton Andrade MD, Date Time Electronically viewed and signed by .Keaton Andrade MD, MD on 12/06/2016 12:43 .S/
--- NOTE | 2016-12-06 14:03 | PN ---
Date/Time of Note Date/Time of Note DATE: 12/06/16 TIME: 13:47 Assessment/Plan VTE Prophylaxis VTE Prophylaxis Intervention: ambulation Lines/Catheters IV [facility] (from [facility] Saline Lock Assessment/Plan Chief Complaint/Hosp Course 31-year-old patient is admitted with the following diagnosis 1. End-stage renal disease on hemodialysis. 2. Soft tissue swelling of the neck and very recent onset of dysphagia and odynophagia patient only can drink liquids rule out the cause 3. 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 4. Venous hypertension in the neck and in the upper thorax secondary to AV fistula on the left side. 5. Rule out bleeding in the thyroid cyst or parathyroid adenoma. #6 6. Abdominal pain rule out the cause. Plan and suggestion Recommend vascular consultation to evaluate the effect of hyperdynamic condition produced by AV fistula. Recommend endocrinology consultation which apparently is in the process. Recommend CT scan of the neck soft tissue at this time without contrast Thank you Dr. Turner for involving us to consult on this very interesting and complicated patient. I think if he can get a consultation from ENT specialist is going to be valuable as well Problems: Assessment/Plan 31 years old female was admitted because of the hyperkalemia patient had lost 2 session of hemodialysis. Patient work on chronic hemodialysis since 7 years ago Recent onset of the pressure feeling on the neck and also dysphagia. And tenderness on the left side of the neck. CT scan of the soft tissue of the neck revealed presence of nodules posterior to the thyroid gland 2 on the left side one on the right side and 1 inferior to the isthmus. Recent bleeding in the left parathyroid gland was ceased can explain recent onset of the pain and tenderness and dysphagia. Also patient has hemodynamic hyperactivity due to probably malfunctioning of the AV fistula. Awaiting clarification of the status of the function of the thyroid gland and parathyroid per Endocrinologis Awaiting more input from vascular outpatient surgery rn. We will get CT scan of the abdomen and pelvis for abdominal pain. Subjective 24 Hr Interval Summary Free Text/Dictation States that today has some burning sensation in the throat and in the left neck area. States that the numbness of the left side of the face persists. Denies shortness of breath. Dysphagia of solid food still persists. States that she cannot lay down on the left side especially if she reports that her face down on the left side she feels anxiety. Epigastric pain persists.) Patient is on PPI). No BM. Patient had hemodialysis yesterday. Exam/Review of Systems Vital Signs Vitals Vital Signs Date Time Temp Pulse Resp B/P Pulse Ox O2 Delivery O2 Flow Rate FiO2 12/06/16 12:18 101 12/06/16 11:51 97.9 16 109/55 98 12/03/16 12:11 Room Air Intake and Output 12/05/16 12/05/16 12/06/16 15:00 23:00 07:00 Intake Total 300 ml 980 ml Output Total 3300 ml 500 ml Balance -3000 ml 480 ml Exam Alert awake oriented 3. Semisitting in the bed. No shortness of breath. Vital signs are stable the heart rate has increased sligh to low 100s. I shows a slight exophthalmos. Because of the tongue is pink. Abdomen is not distended. Some tenderness in epigastric area on superficial palpation. Bowel sounds normal to hyperactive. Also superficial tenderness on palpation of the pelvic area. Ultrasound evaluation of the carotids has been performed which shows a slight increase in this velocity of the flow in both carotids. Results Result Diagram: 12/06/16 0712/06/16 0702 Results 24 hrs Laboratory Tests Test 12/06/16 07:02 White Blood Count 4.1 L Red Blood Count 2.51 L Hemoglobin 8.1 L Hematocrit 26.1 L Mean Corpuscular Volume 104.0 H Mean Corpuscular Hemoglobin 32.3 Mean Corpuscular Hemoglobin Concent 31.0 L Red Cell Distribution Width 14.8 H Platelet Count 139 L Mean Platelet Volume 10.7 H Neutrophils % 62.1 Lymphocytes % 24.5 Monocytes % 7.8 Eosinophils % 4.9 Basophils % 0.5 Nucleated Red Blood Cells % 0.0 Neutrophils # 2.6 Lymphocytes # 1.0 Monocytes # 0.3 Eosinophils # 0.2 Basophils # 0.0 Nucleated Red Blood Cells # 0.0 Sodium Level 137 Potassium Level 4.7 Chloride Level 96 L Carbon Dioxide Level 26 Anion Gap 20 #H Blood Urea Nitrogen 38 H Creatinine 6.05 H Glucose Level 62 #L Calcium Level 10.3 H Phosphorus Level 8.6 H Total Bilirubin 0.0 L Direct Bilirubin 0.00 Indirect Bilirubin 0.0 Aspartate Amino Transf (AST/SGOT) 14 L Alanine Aminotransferase (ALT/SGPT) 30 Alkaline Phosphatase 822 H Total Protein 6.6 Albumin 3.8 Globulin 2.80 Albumin/Globulin Ratio 1.35 Medications Medications Current Medications Acetaminophen (Tylenol Tab) 650 mg Q4H PRN PO PAIN AND OR ELEVATED TEMP; Start 12/02/16 at 23:00 Hydralazine HCl (Apresoline) 25 mg Q6H PRN PO SBP >170; Start 12/02/16 at 23:00 Morphine Sulfate (morphine) 2 mg Q4H PRN IV MODERATE PAIN LEVEL 4-6 Last administered on 12/06/16 10:52; Admin Dose 2 MG; Start 12/02/16 at 23:00 Diphenhydramine HCl (Benadryl) 25 mg Q6H PRN IV Itching Last administered on 08:30; Admin Dose 25 MG; Start 12/02/16 at 23:00 Ondansetron HCl (Zofran Inj) 4 mg Q6H PRN IV NAUSEA AND/OR VOMITING; Start 02/09 at 19:30 Cinacalcet (Sensipar) 90 mg BID PO Last administered on 12/06/16 08:30; Admin Dose 90 MG; Start 12/03/16 at 21:30 Pantoprazole (Protonix Tab) 40 mg DAILY@06 PO Last administered on 12/06/16 05 :34; Admin Dose 40 MG; Start 12/04/16 at 14:00 Ibuprofen (Motrin) 600 mg Q8 PO Last administered on 12/06/16 05:34; Admin Dose 600 MG; Start 12/05/16 at 22:00 TANISHA MALONEY MD Dec 06, 2016 14:02
[2016-12-06] MEDS ORDERED: IOHEXOL 14.3 MG(I)/ML (ADULT) BTL PO ONE (15:00)
[2016-12-06] MEDS ORDERED: BARIUM SULF 2% 450 ML BTL (BERRY SMOOTHIE) PO ONE (15:00)
--- NOTE | 2016-12-06 15:19 | CONS ---
Date/Time of Note Date/Time of Note DATE: 12/06/16 TIME: 15:18 Assessment/Plan Assessment/Plan Chief Complaint/Hosp Course Impression: 1. dysphagia,mostly secondary to multinodular goiter 2. Hypotension, borderline. 3. Goiter multinodular. 4. End-stage renal disease on hemodialysis. 5. Hyperkalemia resolved. 6. Abdominal pain. 7. increased alkaline phosphate secondary to hyperparathyroidism Plan parathyroidectomy as per surgery Archana PPI consider ENT eval Dr. Smallwood to resume care tomorrow from GI perspective Problems: Consultation Date/Type/Reason Admit Date/Time Dec 02, 2016 at 17:19 Initial Consult Date 12/04/16 Type of Consultation: GI Referring Provider: LUANNE WALTER MD 24 HR Interval Summary Free Text/Dictation no n/v, no abdominal pain Constitutional: improved Exam/Review of Systems Vital Signs Vitals Vital Signs Date Time Temp Pulse Resp B/P Pulse Ox O2 Delivery O2 Flow Rate FiO2 12/06/16 12:18 101 12/06/16 11:51 97.9 16 109/55 98 12/03/16 12:11 Room Air Intake and Output 12/05/16 12/05/16 12/06/16 15:00 23:00 07:00 Intake Total 300 ml 980 ml Output Total 3300 ml 500 ml Balance -3000 ml 480 ml Exam Constitutional: alert, oriented, well developed Psych: nl mood/affect, no complaints Head: atraumatic, normocephalic Eyes: EOMI, nl conjunctiva, nl lids ENMT: nl external ears & nose, nl lips & teeth, nl nasal mucosa & septum Neck: non-tender, supple Respiratory: clear to auscultation, normal air movement Cardiovascular: nl pulses, regular rate and rhythm Gastrointestinal: bowel sounds, non-tender, soft Results Result Diagram: 12/06/16 0702 12/06/16 0702 Results 24 hrs Laboratory Tests Test 12/06/16 07:02 White Blood Count 4.1 L Red Blood Count 2.51 L Hemoglobin 8.1 L Hematocrit 26.1 L Mean Corpuscular Volume 104.0 H Mean Corpuscular Hemoglobin 32.3 Mean Corpuscular Hemoglobin Concent 31.0 L Red Cell Distribution Width 14.8 H Platelet Count 139 L Mean Platelet Volume 10.7 H Neutrophils % 62.1 Lymphocytes % 24.5 Monocytes % 7.8 Eosinophils % 4.9 Basophils % 0.5 Nucleated Red Blood Cells % 0.0 Neutrophils # 2.6 Lymphocytes # 1.0 Monocytes # 0.3 Eosinophils # 0.2 Basophils # 0.0 Nucleated Red Blood Cells # 0.0 Sodium Level 137 Potassium Level 4.7 Chloride Level 96 L Carbon Dioxide Level 26 Anion Gap 20 #H Blood Urea Nitrogen 38 H Creatinine 6.05 H Glucose Level 62 #L Calcium Level 10.3 H Phosphorus Level 8.6 H Total Bilirubin 0.0 L Direct Bilirubin 0.00 Indirect Bilirubin 0.0 Aspartate Amino Transf (AST/SGOT) 14 L Alanine Aminotransferase (ALT/SGPT) 30 Alkaline Phosphatase 822 H Total Protein 6.6 Albumin 3.8 Globulin 2.80 Albumin/Globulin Ratio 1.35 Medications Medications Current Medications Acetaminophen (Tylenol Tab) 650 mg Q4H PRN PO PAIN AND OR ELEVATED TEMP; Start 12/02/16 at 23:00 Hydralazine HCl (Apresoline) 25 mg Q6H PRN PO SBP >170; Start 12/02/16 at 23:00 Morphine Sulfate (morphine) 2 mg Q4H PRN IV MODERATE PAIN LEVEL 4-6 Last administered on 12/06/16 15:09; Admin Dose 2 MG; Start 12/02/16 at 23:00 Diphenhydramine HCl (Benadryl) 25 mg Q6H PRN IV Itching Last administered on 15:09; Admin Dose 25 MG; Start 12/02/16 at 23:00 Ondansetron HCl (Zofran Inj) 4 mg Q6H PRN IV NAUSEA AND/OR VOMITING; Start 02/09 at 19:30 Cinacalcet (Sensipar) 90 mg BID PO Last administered on 12/06/16 08:30; Admin Dose 90 MG; Start 12/03/16 at 21:30 Pantoprazole (Protonix Tab) 40 mg DAILY@06 PO Last administered on 12/06/16 05 :34; Admin Dose 40 MG; Start 12/04/16 at 14:00 Ibuprofen (Motrin) 600 mg Q8 PO Last administered on 12/06/16 13:50; Admin Dose 600 MG; Start 12/05/16 at 22:00 LIANA PASTOR MD Dec 06, 2016 15:19
--- NOTE | 2016-12-06 17:04 | CONS ---
DATE OF ADMISSION: 12/02/2016 DATE OF CONSULTATION: 12/05/2016 HISTORY OF PRESENT ILLNESS: The patient is a 31-year-old female with a plethora of medical conditions, who presents with dysphagia likely due to multinodular goiter. At the moment, the patient has a longstanding history of end-stage renal disease, in which she has been on dialysis for the past 6 years. The patient reports having multiple chest wall catheters (4) 2 on each side that she has had over the course of 6 years, and over the past year, had a new left upper extremity brachiocephalic fistula created. At the same time, patient had noted that she has developed multiple superficial veins throughout her left upper extremity, left chest wall, left neck area, and her left abdominal lower and upper quadrants. At the moment, she does have some neck pain upon eating, otherwise, denies shortness of breath, chest pain, nausea, vomiting, fever, chills. Patient denies upper extremity claudication or rest pain like symptoms. REVIEW OF SYSTEMS: Fourteen point review performed, negative except as mentioned in HPI. PAST MEDICAL HISTORY: Entails end-stage renal disease on dialysis Wednesday, Wednesday, Wednesday, thyroid mass, ovarian cyst, hyperparathyroidism, hypertension. PAST SURGICAL HISTORY: Multiple chest wall catheters, left upper extremity fistula creation, liver biopsy. FAMILY HISTORY: Positive for hypertension. SOCIAL HISTORY: Former smoker. Currently denies tobacco, alcohol, or illicit drug use. PHYSICAL EXAMINATION: GENERAL: Alert and oriented times 3. No apparent distress. HEENT: Normocephalic, atraumatic. PERRLA. EOMI. Mucosa moist. NECK: Tender mass palpated in the midline. Large superficial veins identified mainly on the left side. No carotid bruit. HEART: S1, S2 present. No murmurs. ABDOMEN: Soft, nontender, nondistended. Bowel sounds positive. LUNGS: Clear to auscultation bilaterally. No crackles. EXTREMITIES: The right lower extremity, palpable femoral pulse. Palpable pedal pulse. Motor and sensory intact. Capillary refill 2 to 3 seconds. Left upper extremity, palpable brachial pulse. Motor and sensory intact. Capillary refill 2 seconds. Fistula with bruit and thrill present. Aneurysmal in the proximal aspect near the antecubital region. ASSESSMENT AND PLAN: End-stage renal disease and essential stenosis: It seems that the patient has a longstanding history of end-stage renal disease with multiple chest wall catheters in the past. Our concern upon evaluation of the patient, it seems the patient has significant superficial veins on her chest, left neck, and her abdominal quadrant, which can suggest possible significant central stenosis. Would recommend for the patient to undergo fistulogram in order to evaluate the venous drainage back to the right atrium. There likely is essential stenosis that may be resolved with possible venoplasty stenting. We will plan to evaluate the patient in the coming days. Optimize vascular status (blood pressure meds, diet, nutrition, exercise, sugar control). 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 Thank you for allowing us to partake in the care of your patient. Please call with any questions. Dictated By: Salvador Francisco MD /[email or web address] /Document#: [id number]
[2016-12-06] MEDS: ONDANSETRON 4 MG INJ IV PRN (18:33)
[2016-12-06] MEDS: GABAPENTIN 100 MG CAP PO SCH (21:11)
--- NOTE | 2016-12-06 22:21 | CONS ---
Date/Time of Note Date/Time of Note DATE: 12/06/16 TIME: 22:19 Consultation Date/Type/Reason Admit Date/Time Dec 02, 2016 at 17:19 Initial Consult Date 12/04/16 Type of Consultation: renal Referring Provider: LUANNE WALTER MD Exam/Review of Systems Vital Signs Vitals Vital Signs Date Time Temp Pulse Resp B/P Pulse Ox O2 Delivery O2 Flow Rate FiO2 12/06/16 20:14 118 12/06/16 19:44 98.4 20 104/52 95 12/06/16 16:00 Room Air Intake and Output 12/05/16 12/05/16 12/06/16 15:00 23:00 07:00 Intake Total 300 ml 980 ml Output Total 3300 ml 500 ml Balance -3000 ml 480 ml Results Result Diagram: 12/06/16 0702 12/06/16 0702 Results 24 hrs Laboratory Tests Test 12/06/16 07:02 White Blood Count 4.1 L Red Blood Count 2.51 L Hemoglobin 8.1 L Hematocrit 26.1 L Mean Corpuscular Volume 104.0 H Mean Corpuscular Hemoglobin 32.3 Mean Corpuscular Hemoglobin Concent 31.0 L Red Cell Distribution Width 14.8 H Platelet Count 139 L Mean Platelet Volume 10.7 H Neutrophils % 62.1 Lymphocytes % 24.5 Monocytes % 7.8 Eosinophils % 4.9 Basophils % 0.5 Nucleated Red Blood Cells % 0.0 Neutrophils # 2.6 Lymphocytes # 1.0 Monocytes # 0.3 Eosinophils # 0.2 Basophils # 0.0 Nucleated Red Blood Cells # 0.0 Sodium Level 137 Potassium Level 4.7 Chloride Level 96 L Carbon Dioxide Level 26 Anion Gap 20 #H Blood Urea Nitrogen 38 H Creatinine 6.05 H Glucose Level 62 #L Calcium Level 10.3 H Phosphorus Level 8.6 H Total Bilirubin 0.0 L Direct Bilirubin 0.00 Indirect Bilirubin 0.0 Aspartate Amino Transf (AST/SGOT) 14 L Alanine Aminotransferase (ALT/SGPT) 30 Alkaline Phosphatase 822 H Total Protein 6.6 Albumin 3.8 Globulin 2.80 Albumin/Globulin Ratio 1.35 Medications Medications Current Medications Acetaminophen (Tylenol Tab) 650 mg Q4H PRN PO PAIN AND OR ELEVATED TEMP; Start 12/02/16 at 23:00 Hydralazine HCl (Apresoline) 25 mg Q6H PRN PO SBP >170; Start 12/02/16 at 23:00 Morphine Sulfate (morphine) 2 mg Q4H PRN IV MODERATE PAIN LEVEL 4-6 Last administered on 12/06/16 21:11; Admin Dose 2 MG; Start 12/02/16 at 23:00 Diphenhydramine HCl (Benadryl) 25 mg Q6H PRN IV Itching Last administered on 21:11; Admin Dose 25 MG; Start 12/02/16 at 23:00 Ondansetron HCl (Zofran Inj) 4 mg Q6H PRN IV NAUSEA AND/OR VOMITING Last administered on 12/06/16 18:33; Admin Dose 4 MG; Start 12/03/16 at 19:30 Cinacalcet (Sensipar) 90 mg BID PO Last administered on 12/06/16 08:30; Admin Dose 90 MG; Start 12/03/16 at 21:30 Pantoprazole (Protonix Tab) 40 mg DAILY@06 PO Last administered on 12/06/16 05 :34; Admin Dose 40 MG; Start 12/04/16 at 14:00 Ibuprofen (Motrin) 600 mg Q8 PO Last administered on 12/06/16 21:11; Admin Dose 600 MG; Start 12/05/16 at 22:00 Gabapentin (Neurontin) 100 mg TID PO Last administered on 12/06/16 21:11; Admin Dose 100 MG; Start 12/06/16 at 21:00 Procedures Procedures HD tomorrow await further Surgical Plans Continue Epo for anemia CAMERON ISIDRO MD Dec 06, 2016 22:21
[2016-12-07] VITALS (19 sets, daily range): BP systolic 94–124; BP diastolic 52–67; PULSE 90–101; RESP 17–20
--- NOTE | 2016-12-07 00:02 | CONS ---
Date/Time of Note Date/Time of Note lATE ENTRY PATIENT SEEN TODAY AT 12:50 DATE: 12/06/16 TIME: 23:53 Assessment/Plan Assessment/Plan Problems: (1) Painful thyroid Status: Acute Comment: FREE T4 INDEX WITHIN NORMAL RANGE. NO EVIDENCE OF HYPERTHYROIDISM AT THIS TIME GIVEN LOW NORMAL FREE T4 AND NORMAL FREE T4 INDEX. AWAITING THYROID UPTAKE SCAN. ALSO AWAITING THYROID FNA. Consultation Date/Type/Reason Admit Date/Time Dec 02, 2016 at 17:19 Initial Consult Date 12/04/16 Type of Consultation: ENDOCRINE Referring Provider: LUANNE WALTER MD 24 HR Interval Summary Free Text/Dictation PATIENT COMPLAINS OF BOTH NECK AND ODYNOPHAGIA Exam/Review of Systems Vital Signs Vitals Vital Signs Date Time Temp Pulse Resp B/P Pulse Ox O2 Delivery O2 Flow Rate FiO2 12/06/16 23:09 104 12/06/16 19:44 98.4 20 104/52 95 12/06/16 16:00 Room Air Intake and Output 12/05/16 12/05/16 12/06/16 15:00 23:00 07:00 Intake Total 300 ml 980 ml Output Total 3300 ml 500 ml Balance -3000 ml 480 ml Exam Constitutional: alert, oriented Eyes: EOMI, PERRL Neck: other (TENDER TO PALPATION), supple Respiratory: clear to auscultation Cardiovascular: regular rate and rhythm Musculoskeletal: nl extremities to inspection Extremities: normal pulses Results Result Diagram: 12/06/16 0702 12/06/16 0702 Results 24 hrs Laboratory Tests Test 12/06/16 07:02 White Blood Count 4.1 L Red Blood Count 2.51 L Hemoglobin 8.1 L Hematocrit 26.1 L Mean Corpuscular Volume 104.0 H Mean Corpuscular Hemoglobin 32.3 Mean Corpuscular Hemoglobin Concent 31.0 L Red Cell Distribution Width 14.8 H Platelet Count 139 L Mean Platelet Volume 10.7 H Neutrophils % 62.1 Lymphocytes % 24.5 Monocytes % 7.8 Eosinophils % 4.9 Basophils % 0.5 Nucleated Red Blood Cells % 0.0 Neutrophils # 2.6 Lymphocytes # 1.0 Monocytes # 0.3 Eosinophils # 0.2 Basophils # 0.0 Nucleated Red Blood Cells # 0.0 Sodium Level 137 Potassium Level 4.7 Chloride Level 96 L Carbon Dioxide Level 26 Anion Gap 20 #H Blood Urea Nitrogen 38 H Creatinine 6.05 H Glucose Level 62 #L Calcium Level 10.3 H Phosphorus Level 8.6 H Total Bilirubin 0.0 L Direct Bilirubin 0.00 Indirect Bilirubin 0.0 Aspartate Amino Transf (AST/SGOT) 14 L Alanine Aminotransferase (ALT/SGPT) 30 Alkaline Phosphatase 822 H Total Protein 6.6 Albumin 3.8 Globulin 2.80 Albumin/Globulin Ratio 1.35 Medications Medications Current Medications Acetaminophen (Tylenol Tab) 650 mg Q4H PRN PO PAIN AND OR ELEVATED TEMP; Start 12/02/16 at 23:00 Hydralazine HCl (Apresoline) 25 mg Q6H PRN PO SBP >170; Start 12/02/16 at 23:00 Morphine Sulfate (morphine) 2 mg Q4H PRN IV MODERATE PAIN LEVEL 4-6 Last administered on 12/06/16 21:11; Admin Dose 2 MG; Start 12/02/16 at 23:00 Diphenhydramine HCl (Benadryl) 25 mg Q6H PRN IV Itching Last administered on 21:11; Admin Dose 25 MG; Start 12/02/16 at 23:00 Ondansetron HCl (Zofran Inj) 4 mg Q6H PRN IV NAUSEA AND/OR VOMITING Last administered on 12/06/16 18:33; Admin Dose 4 MG; Start 12/03/16 at 19:30 Cinacalcet (Sensipar) 90 mg BID PO Last administered on 12/06/16 22:31; Admin Dose 90 MG; Start 12/03/16 at 21:30 Pantoprazole (Protonix Tab) 40 mg DAILY@06 PO Last administered on 12/06/16 05 :34; Admin Dose 40 MG; Start 12/04/16 at 14:00 Ibuprofen (Motrin) 600 mg Q8 PO Last administered on 12/06/16 21:11; Admin Dose 600 MG; Start 12/05/16 at 22:00 Gabapentin (Neurontin) 100 mg TID PO Last administered on 12/06/16 21:11; Admin Dose 100 MG; Start 12/06/16 at 21:00 OANH WILEY MD Dec 07, 2016 00:02
--- NOTE | 2016-12-07 02:08 | RADRPT ---
PROCEDURE: CT ABDOMEN AND PELVIS WITHOUT CONTRAST: CLINICAL INDICATION: 31-year of age, female , abdominal pain COMPARISON: Abdominal ultrasound December 02, 2016 TECHNIQUE: CT of the abdomen and pelvis was performed without intravenous contrast. Oral contrast wa s administered prior to the examination. Coronal and sagittal reformatted images were obtained from the axial source images. Images were revi ewed on a high-resolution PACS workstation. Dose information: Based on a 32 cm phantom, the estimated radiation dose (CTDI vol mGy) for each ser ies in this exam is 4.7 . The estimated cumulative dose (DLP mGy-cm) is 244 . FINDINGS: In the absence of intravenous contrast, the study constitutes a limited assessment of the solid orga ns and vessels. LUNG BASES: Linear atelectasis at bilateral lung bases. ABDOMEN/PELVIS: Liver: Normal. Gallbladder: Gallbladder is contracted. Bile ducts: No intrahepatic or extrahepatic biliary duct dilatation. Spleen: Normal. Pancreas: Normal. Adrenal glands: Normal. Kidneys and ureters: Kidneys other markedly atrophic and measure 5.1 cm and 5.2 cm on the right and left, respectively. There is a 2.1 cm exophytic cyst arising from the right kidney. Negative for r enal calculi or hydronephrosis. Aorta and IVC: Normal noncontrast appearance. Nonspecific enlargement of the azygos and hemiazygous veins in the posterior mediastinum. There are prominent vessels in the anterior abdominal wall that communcate with bilateral common femoral veins. Lymph nodes: Normal. Gastrointestinal tract: Moderate colonic stool may indicate constipation. Small bowel loops and col on are decompressed. There is marked distension of the stomach with semisolid material from a recen t meal. Appendix: Normal. Bladder: Contracted. Pelvic Organs: There is a 3 cm exophytic mass-like structure in the left adnexa that likely represen ts a pedunculated fibroid with interrupted posterior calcification (3/131). Ovaries are identified . Uterus has a vertical orientation. Peritoneal cavity: No free fluid or free intraperitoneal air. Abdominal wall: Normal. BONES: Musculoskeletal: There is expansion of the bone marrow spaces with cortical thinning and bony sclero sis likely due to renal osteodystrophy. There are endplate erosive changes in the spine and there i s erosive arthritis bilateral sacroiliac joints. There are multiple geographic lytic lesions with w ell-defined sclerotic margins. The largest is in the right posterior superior iliac spine and measu res 4.6 cm. Other smaller lesions are present in bilateral femora. There is mild height loss at T1 1 IMPRESSION: Bilateral atrophic kidneys in keeping with end-stage renal disease. The urinary bladder is contract ed. Diffuse bone disease likely due to renal osteodystrophy. Geographic lytic lesions may represent Bro wn tumors from secondary hyperparathyroidism. 3 cm mass-like structure in the left adnexa is incompletely characterized but likely represents a pe dunculated uterine fibroid. Suggest further evaluation with non urgent ultrasound. Moderate colonic stool suggest constipation. Marked distension of the stomach may indicate gastropa resis. This could better be evaluated with a nuclear medicine gastric emptying study. Enlarged azygos and hemiazygous veins and enlarged veins in the anterior abdominal wall may indicate SVC obstruction. Evaluation of the patency of the veins is not possible without intravenous contra st. RPTAT: HCTS Physician Edinson Date Time Electronically viewed and signed by Physician Edinson on 12/07/2016 02:08 /
[2016-12-07] MEDS: morphine 2 MG INJ IV PRN ×4 (03:35→22:02)
[2016-12-07] MEDS: DIPHENHYDRAMINE 50 MG INJ IV PRN ×4 (03:35→22:02)
--- NOTE | 2016-12-07 04:46 | PN ---
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 MEDICATIONS:: The patient's current medications ibuprofen 600 mg, Protonix 40 mg once a day, Reglan as needed, Zofran 4 mg once a day, Tylenol 650 mg q.4h, hydralazine 25 mg once a day, morphine 2 mg q.4h, Benadryl 25 mg once a day. OBJECTIVE DATA: The patient is awake, alert, and oriented, following simple commands. Heart: Regular rate and rhythm. Lungs: Equal breath sounds. Abdomen soft, flat, nontender, nondistended. ASSESSMENT AND PLAN: 1. This patient is a 31 years old with underlying thyrotoxicosis. 2. Tremor, probably secondary to thyrotoxicosis. Follow up the patient with thyroid function tests and adjust her medication. 3. Left face numbness probably secondary to thyrotoxicosis. I am going to start the patient on Neurontin 100 mg three times a day and see how the patient responds to that. 4. Patient with underlying trigeminal neuralgia in which I started the patient on Neurontin 100 mg three times a day and see how the patient responds to that. 5. Again, Thank you for asking me to see the patient with you. Dictated By: Marshal Glovre MD /facundo/vu /Document#: [id number]
[2016-12-07] MEDS: IBUPROFEN 600 MG TAB PO SCH ×3 (05:59→22:02)
[2016-12-07] MEDS: PANTOPRAZOLE (EC) 40 MG TAB PO SCH (05:59)
[2016-12-07 08:02] LABS: BASOPHILS % 0.2 % (0.0-2.0); EOSINOPHILS # 0.3 10^3/ul (0.0-0.5); EOSINOPHILS % 6.1 % (0.0-7.0); HEMATOCRIT 25.8 % (37.0-47.0); HEMOGLOBIN 8.1 g/dl (12.0-16.0); LYMPHOCYTES # 1.1 10^3/ul (0.8-2.9); LYMPHOCYTES % 23.7 % (15.0-51.0); MEAN CORPUSCULAR HEMOGLOBIN 32.4 pg (29.0-33.0); MEAN CORPUSCULAR HGB CONC 31.4 g/dl (32.0-37.0); MEAN CORPUSCULAR VOLUME 103.2 fl (82.0-101.0); MEAN PLATELET VOLUME 10.8 fl (7.4-10.4); MONOCYTE # 0.4 10^3/ul (0.3-0.9); MONOCYTES % 9.2 % (0.0-11.0); NEUTROPHIL # 2.7 10^3/ul (1.6-7.5); NEUTROPHILS % 60.1 % (39.0-77.0); PLATELET COUNT 144 10^3/UL (140-415); RED CELL DISTRIBUTION WIDTH 14.8 % (11.5-14.5); WHITE BLOOD COUNT 4.6 10^3/ul (4.8-10.8)
[2016-12-07 08:28] LABS: CALCIUM 10.5 mg/dl (8.4-10.2); CREATININE 8.37 mg/dl (0.44-1.00); POTASSIUM 5.1 mmol/L (3.5-5.1)
--- NOTE | 2016-12-07 09:10 | HPN ---
Date/Time of Note Date/Time of Note DATE: 12/07/16 TIME: 09:09 Interval H&P Admission Note Pt. seen H&P reviewed: No system changes MIMI CORONEL MD Dec 07, 2016 09:10
--- NOTE | 2016-12-07 09:14 | OPR ---
Date/Time of Note Date/Time of Note DATE: 12/07/16 TIME: 09:12 Operative Report Free Text/Dictation DATE OF OPERATION: 12/07/2016 SURGEON: Salvador Coronel MD PREOPERATIVE DIAGNOSIS: Central Stenosis POSTOPERATIVE DIAGNOSIS: Same ANESTHESIA: Local BLOOD LOSS: minimal COMPLICATIONS: None. HEPARIN: None CONTRAST: As recorded ACCESS: 6Fr sheath LUE Fistula CLOSURE: Manual compression & 3-0 nylon suture INDICATIONS: This is a 31-year-old female whom had presented with large superficial veins in the left chest, neck and left abdominal quadrant. Further the patient has tender thyroid mass that requires further intervention however she has large neck vein which may interfere with her possible surgery. Patient has been informed of the alternatives, risks, and benefits of angiogram, balloon angioplasty and stenting. Risks including but not limited to bleeding, thrombosis, embolization, myocardial infarction, , device malfunction, infection, and nephrotoxicity and patient has agreed to proceed. This is the first diagnostic angiogram in this clinical setting PROCEDURE: 1. Ultrasound guided access of left Upper extremity fistula 2. Left upper extremity fistulogram 3. Central Venogram (subclavian vein, Superior Vena Cava, Internal jugular vein) 4. Right upper extremity venogram FINDINGS: Left Upper extremity: Patent brachiocephalic fistula Patent basilic vein Patent brachial Patent axillary vein Patent left subclavian vein Patent left brachiocephalic vein however drainage into a prominent azygous vein Superior vena cava severe stenosis/occlusion, not well visualized Right upper extremity: Patent axillary vein Patent right subclavian vein Patent right brachiocephalic vein however drainage into a prominent azygous vein Superior vena cava not visualized DESCRIPTION OF THE PROCEDURE: The patient was brought to the angio suite and positioned in the supine position on the fluoroscopic table. Sedation was administered without complication. Left upper extremity was shaved, prepped and draped in the standard sterile fashion. A time-out and the appropriate site was marked and confirmed. Local anesthesia was infiltrated in the region of the left upper extremity fistula. The fistula was cannulated with a micro access needle under ultrasound guidance and a guide wire advanced into the cephalic vein under fluoroscopic guidance. The needle was removed and a glide catheter as placed. Multi-station fistulogram and venogram was conducted of the upper extremity and the central veins. Findings noted above. Biswas wire was then passed through the microcatheter and placed in the left brachiocephalic vein. The catheter was then exchanged with a short 6-Urdu sheath. Central venogram was performed and with guiding catheter it was identified that the SVC is either occluded or severe stenosis is present as the venous drainage travels through a prominent azygous vein. At this point a right upper extremity venogram was obtained to better delineate the central drainage from the right side. Similar finding of the venous drainage into the prominent azygous vein and a non-visualized SVC. At this point sheath and wire were removed and using a 3-0 Nylon suture the puncture site was closed. Patient was taken to the recovery unit in fair condition. PLAN: We'll plan to discuss the findings with our multidisciplinary team, as an intervention for such findings is quite advanced and would require a re- canalization of SVC that are only done for maintaining patients on HD as a last resort SALVADOR CORONEL MD Dec 07, 2016 09:14
[2016-12-07 09:55] LABS: THYROID MICROSOMAL ANTIBODY 1 IU/mL (<9)
[2016-12-07] MEDS: GABAPENTIN 100 MG CAP PO SCH ×3 (09:59→20:36)
[2016-12-07] MEDS: CINACALCET 30 MG TAB PO SCH ×2 (09:59→20:36)
[2016-12-07] MEDS: SEVELAMER 800 MG TAB PO SCH ×3 (10:00→18:22)
--- NOTE | 2016-12-07 15:18 | CONS ---
Date/Time of Note Date/Time of Note DATE: 12/07/16 TIME: 15:17 Assessment/Plan Assessment/Plan Additional Assessment/Plan 1. Increased BNP, assess congestive heart failure with secondary renal failure.- no sig sob at thie time - better fluid status now 2. Hypotension, borderline- well Rx 3. Goiter multinodular. 4. End-stage renal disease on hemodialysis- Rx with renal team 5. Hyperkalemia resolved- better 6. Abdominal pain. Consultation Date/Type/Reason Admit Date/Time Dec 02, 2016 at 17:19 Initial Consult Date 12/04/16 Type of Consultation: ENDOCRINE Referring Provider: LUANNE WALTER MD 24 HR Interval Summary Free Text/Dictation NO acute events - good fluid status now ROS: No fever, no chills, no nausea, no vomiting, no diarrhea/constipation No recent weight changes No chest pain, no PND, no orthopnea No dizziness, blurred vision No thirst, no heat or cold intolerance Exam/Review of Systems Vital Signs Vitals Vital Signs Date Time Temp Pulse Resp B/P Pulse Ox O2 Delivery O2 Flow Rate FiO2 12/07/16 13:50 98 16 12/07/16 11:42 98.2 98/55 100 12/06/16 16:00 Room Air Intake and Output 12/06/16 12/06/16 12/07/16 15:00 23:00 07:00 Intake Total 900 ml 150 ml Output Total 0 ml Balance 900 ml 150 ml Exam General: WN/WD/NAD, AOx 3 HEENT: Unicetric/atraumatic/EOMI (follows commands) NECK: JVD elevated, no thyromegaly Lymph: no lymphadenopathy HEART: regular with no S3, II/ systolic murmur at apex LUNGS: Coarse sounds ABD: soft, NT, ND, +BS : Intact Neuro: non focal SKIN: chronic changes EXT: trace edema Results Result Diagram: 12/07/16 0726 12/07/16 0725 Results 24 hrs Laboratory Tests Test 12/07/16 07:25 12/07/16 07:26 Sodium Level 135 Potassium Level 5.1 Chloride Level 93 L Carbon Dioxide Level 25 Anion Gap 22 H Blood Urea Nitrogen 56 H Creatinine 8.37 #H Glucose Level 72 Calcium Level 10.5 H White Blood Count 4.6 L Red Blood Count 2.50 L Hemoglobin 8.1 L Hematocrit 25.8 L Mean Corpuscular Volume 103.2 H Mean Corpuscular Hemoglobin 32.4 Mean Corpuscular Hemoglobin Concent 31.4 L Red Cell Distribution Width 14.8 H Platelet Count 144 Mean Platelet Volume 10.8 H Neutrophils % 60.1 Lymphocytes % 23.7 Monocytes % 9.2 Eosinophils % 6.1 Basophils % 0.2 Nucleated Red Blood Cells % 0.0 Neutrophils # 2.7 Lymphocytes # 1.1 Monocytes # 0.4 Eosinophils # 0.3 Basophils # 0.0 Nucleated Red Blood Cells # 0.0 Medications Medications Current Medications Acetaminophen (Tylenol Tab) 650 mg Q4H PRN PO PAIN AND OR ELEVATED TEMP; Start 12/02/16 at 23:00 Hydralazine HCl (Apresoline) 25 mg Q6H PRN PO SBP >170; Start 12/02/16 at 23:00 Morphine Sulfate (morphine) 2 mg Q4H PRN IV MODERATE PAIN LEVEL 4-6 Last administered on 12/07/16 09:59; Admin Dose 2 MG; Start 12/02/16 at 23:00 Diphenhydramine HCl (Benadryl) 25 mg Q6H PRN IV Itching Last administered on 09:59; Admin Dose 25 MG; Start 12/02/16 at 23:00 Ondansetron HCl (Zofran Inj) 4 mg Q6H PRN IV NAUSEA AND/OR VOMITING Last administered on 12/06/16 18:33; Admin Dose 4 MG; Start 12/03/16 at 19:30 Cinacalcet (Sensipar) 90 mg BID PO Last administered on 12/07/16 09:59; Admin Dose 90 MG; Start 12/03/16 at 21:30 Pantoprazole (Protonix Tab) 40 mg DAILY@06 PO Last administered on 12/07/16 05 :59; Admin Dose 40 MG; Start 12/04/16 at 14:00 Ibuprofen (Motrin) 600 mg Q8 PO Last administered on 12/07/16 13:40; Admin Dose 600 MG; Start 12/05/16 at 22:00 Gabapentin (Neurontin) 100 mg TID PO Last administered on 12/07/16 13:40; Admin Dose 100 MG; Start 12/06/16 at 21:00 YUMIKO HO MD Dec 07, 2016 15:18
--- NOTE | 2016-12-07 15:46 | CONS ---
Date/Time of Note Date/Time of Note DATE: 12/07/16 TIME: 15:44 Assessment/Plan Assessment/Plan Chief Complaint/Hosp Course 31 year old female with history of ESRD,admitted for abdominal pain,dysphagia. no nausea,vomiting or gi bleeding.No chest pain or SOB. Problems: Additional Assessment/Plan Assessment/Plan Assessment/Plan Additional Assessment/Plan 1. dysphagia,mostly secondary to multinodular goiter 2. Hypotension, borderline. 3. Goiter multinodular. 4. End-stage renal disease on hemodialysis. 5. Hyperkalemia resolved. 6. Abdominal pain. 7. increased alkaline phosphate secondary to hyperparathyroidism 8. Gastroparesis 9. Severe constipation Plan parathyroidectomy as per surgery Bentyl PPI continue present care. Caridad Lopez Patient had a EGD a few weeks ago at [facility] upper GI tract did not show any stricture or ulcer. She had to my knowledge varicose vein only in the proximal part of the esophagus not in the mid or distal part Consultation Date/Type/Reason Admit Date/Time Dec 02, 2016 at 17:19 Initial Consult Date 12/04/16 Type of Consultation: ENDOCRINE Referring Provider: LUANNE WALTER MD 24 HR Interval Summary Free Text/Dictation Complains of constipation Mild dysphagia Exam/Review of Systems Vital Signs Vitals Vital Signs Date Time Temp Pulse Resp B/P Pulse Ox O2 Delivery O2 Flow Rate FiO2 12/07/16 15:35 97.9 96 18 102/54 98 12/06/16 16:00 Room Air Intake and Output 12/06/16 12/06/16 12/07/16 15:00 23:00 07:00 Intake Total 900 ml 150 ml Output Total 0 ml Balance 900 ml 150 ml Exam Constitutional: alert, oriented, well developed Psych: nl mood/affect, no complaints Head: atraumatic, normocephalic Eyes: EOMI, PERRL, nl conjunctiva, nl lids, nl sclera ENMT: nl external ears & nose, nl lips & teeth, nl nasal mucosa & septum Neck: non-tender, supple Respiratory: clear to auscultation, normal air movement Cardiovascular: nl pulses, regular rate and rhythm Gastrointestinal: nl liver, spleen, non-tender, soft Musculoskeletal: nl extremities to inspection, nl gait and stance Extremities: normal pulses 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: MANAGER TRANSMISSION II-XII intact, nl mental status, nl speech, nl strength Skin: nl turgor, No rash or lesions Lymph: nl lymph nodes Results Result Diagram: 12/07/16 0726 12/07/16 0725 Results 24 hrs Laboratory Tests Test 12/07/16 07:25 12/07/16 07:26 Sodium Level 135 Potassium Level 5.1 Chloride Level 93 L Carbon Dioxide Level 25 Anion Gap 22 H Blood Urea Nitrogen 56 H Creatinine 8.37 #H Glucose Level 72 Calcium Level 10.5 H White Blood Count 4.6 L Red Blood Count 2.50 L Hemoglobin 8.1 L Hematocrit 25.8 L Mean Corpuscular Volume 103.2 H Mean Corpuscular Hemoglobin 32.4 Mean Corpuscular Hemoglobin Concent 31.4 L Red Cell Distribution Width 14.8 H Platelet Count 144 Mean Platelet Volume 10.8 H Neutrophils % 60.1 Lymphocytes % 23.7 Monocytes % 9.2 Eosinophils % 6.1 Basophils % 0.2 Nucleated Red Blood Cells % 0.0 Neutrophils # 2.7 Lymphocytes # 1.1 Monocytes # 0.4 Eosinophils # 0.3 Basophils # 0.0 Nucleated Red Blood Cells # 0.0 Medications Medications Current Medications Acetaminophen (Tylenol Tab) 650 mg Q4H PRN PO PAIN AND OR ELEVATED TEMP; Start 12/02/16 at 23:00 Hydralazine HCl (Apresoline) 25 mg Q6H PRN PO SBP >170; Start 12/02/16 at 23:00 Morphine Sulfate (morphine) 2 mg Q4H PRN IV MODERATE PAIN LEVEL 4-6 Last administered on 12/07/16 09:59; Admin Dose 2 MG; Start 12/02/16 at 23:00 Diphenhydramine HCl (Benadryl) 25 mg Q6H PRN IV Itching Last administered on 09:59; Admin Dose 25 MG; Start 12/02/16 at 23:00 Ondansetron HCl (Zofran Inj) 4 mg Q6H PRN IV NAUSEA AND/OR VOMITING Last administered on 12/06/16 18:33; Admin Dose 4 MG; Start 12/03/16 at 19:30 Cinacalcet (Sensipar) 90 mg BID PO Last administered on 12/07/16 09:59; Admin Dose 90 MG; Start 12/03/16 at 21:30 Pantoprazole (Protonix Tab) 40 mg DAILY@06 PO Last administered on 12/07/16 05 :59; Admin Dose 40 MG; Start 12/04/16 at 14:00 Ibuprofen (Motrin) 600 mg Q8 PO Last administered on 12/07/16 13:40; Admin Dose 600 MG; Start 12/05/16 at 22:00 Gabapentin (Neurontin) 100 mg TID PO Last administered on 12/07/16 13:40; Admin Dose 100 MG; Start 12/06/16 at 21:00 FREDERIC GARCIA MD Dec 07, 2016 15:45
[2016-12-07] MEDS: METOCLOPRAMIDE 10 MG INJ IV SCH ×2 (16:12→22:02)
--- NOTE | 2016-12-07 16:43 | PN ---
Date/Time of Note Date/Time of Note DATE: 12/07/16 TIME: 16:17 Assessment/Plan VTE Prophylaxis VTE Prophylaxis Intervention: ambulation Lines/Catheters IV [facility]ter [facility]from [facility] Saline Lock Assessment/Plan Assessment/Plan This is a 31-year-old female who was admitted for treatment of hyper kalemia. She has been admitted with the following diagnosis Possibly multinodular goiter End-stage renal disease need for hemodialysis Dysphagia rule out cause. Possible hyperparathyroidism Pressure effect from the thyroid nodules over the esophagus leading to dysphagia. So far investigation has revealed the following 1. Patient does not have hyper thyroidism 2. There are some calcified nodule corresponding to parathyroid enlarged Today AV fistulogram from left upper extremity has revealed possible obstruction of the superior vena cava and deviation and drainage of the venous system through aziza-azygos and azygos vein. 4. CT scan of the abdomen and pelvis has revealed marked distention of the stomach full of material may suggest gastroparesis question of reason Following testes plan to be done Nuclear medicine scan of the thyroid Fine-needle aspiration biopsy of the left thyroid nodule Still awaiting for the results of the parathyroid hormone Plan: I am going going to start patient on mineral oil by mouth and also enemas to try to clean the colon and try to empty the stomach to find out what is the cause of the gastric outlet partial obstruction or gastroparesis I will discuss with GI Dr. Smallwood who is a regional engagement consultant on the case also with Dr. Sauceda noted register repairer and a vascular surgeon regional engagement consultant Dr. Francisco Subjective 24 Hr Interval Summary Free Text/Dictation Past 24 hours patient has had. Fistulogram from the left upper extremity AV fistula which has revealed presence of most probably obstruction of the superior vena cava and drainage through aziza-azygos and azygos veins. Also has had CT scan of the abdomen and pelvis has revealed a marked distention of the stomach full of material may suggest gastroparesis. They suggested nuclear medicine gastric emptying test.also it has showed presence of large amount of stool in the colon. Patient states that he is not feeling that much better since admission. Still has problems swallowing solid food material and pills. Denies shortness of breath. Has not had a bowel movement since admission. Still complaining of abdominal pain. Exam/Review of Systems Vital Signs Vitals Vital Signs Date Time Temp Pulse Resp B/P Pulse Ox O2 Delivery O2 Flow Rate FiO2 12/07/16 15:35 97.9 96 18 102/54 98 12/06/16 16:00 Room Air Intake and Output 12/06/16 12/06/16 12/07/16 15:00 23:00 07:00 Intake Total 900 ml 150 ml Output Total 0 ml Balance 900 ml 150 ml Exam Vital sign is stable Patient is alert awake oriented 3 does not appear in acute distress. Sitting on the bed. Does not appear short of breath Head and neck: Mild exophthalmos, distended neck veins, distended veins over the chest wall anteriorly and also anterior abdominal wall appears that they feel from cephalad to caudad. Abdomen is tender upon deep pressure. Results Result Diagram: 12/07/16 0726 12/07/16 0725 Results 24 hrs Laboratory Tests Test 12/07/16 07:25 12/07/16 07:26 Sodium Level 135 Potassium Level 5.1 Chloride Level 93 L Carbon Dioxide Level 25 Anion Gap 22 H Blood Urea Nitrogen 56 H Creatinine 8.37 #H Glucose Level 72 Calcium Level 10.5 H White Blood Count 4.6 L Red Blood Count 2.50 L Hemoglobin 8.1 L Hematocrit 25.8 L Mean Corpuscular Volume 103.2 H Mean Corpuscular Hemoglobin 32.4 Mean Corpuscular Hemoglobin Concent 31.4 L Red Cell Distribution Width 14.8 H Platelet Count 144 Mean Platelet Volume 10.8 H Neutrophils % 60.1 Lymphocytes % 23.7 Monocytes % 9.2 Eosinophils % 6.1 Basophils % 0.2 Nucleated Red Blood Cells % 0.0 Neutrophils # 2.7 Lymphocytes # 1.1 Monocytes # 0.4 Eosinophils # 0.3 Basophils # 0.0 Nucleated Red Blood Cells # 0.0 Medications Medications Current Medications Acetaminophen (Tylenol Tab) 650 mg Q4H PRN PO PAIN AND OR ELEVATED TEMP; Start 12/02/16 at 23:00 Hydralazine HCl (Apresoline) 25 mg Q6H PRN PO SBP >170; Start 12/02/16 at 23:00 Morphine Sulfate (morphine) 2 mg Q4H PRN IV MODERATE PAIN LEVEL 4-6 Last administered on 12/07/16t 16:06; Admin Dose 2 MG; Start 12/02/16 at 23:00 Diphenhydramine HCl (Benadryl) 25 mg Q6H PRN IV Itching Last administered on 16:06; Admin Dose 25 MG; Start 12/02/16 at 23:00 Ondansetron HCl (Zofran Inj) 4 mg Q6H PRN IV NAUSEA AND/OR VOMITING Last administered on 12/06/16 18:33; Admin Dose 4 MG; Start 12/03/16 at 19:30 Cinacalcet (Sensipar) 90 mg BID PO Last administered on 12/07/16 09:59; Admin Dose 90 MG; Start 12/03/16 at 21:30 Pantoprazole (Protonix Tab) 40 mg DAILY@06 PO Last administered on 12/07/16 05 :59; Admin Dose 40 MG; Start 12/04/16 at 14:00 Ibuprofen (Motrin) 600 mg Q8 PO Last administered on 12/07/16 13:40; Admin Dose 600 MG; Start 12/05/16 at 22:00 Gabapentin (Neurontin) 100 mg TID PO Last administered on 12/07/16 13:40; Admin Dose 100 MG; Start 12/06/16 at 21:00 Lubiprostone (Amitiza) 24 mcg BID PO ; Start 12/07/16 at 16:30 Metoclopramide HCl (Reglan) 5 mg Q8 IV Last administered on 12/07/16 16:12; Admin Dose 5 MG; Start 12/07/16 at 16:00 TANISHA MALONEY MD Dec 07, 2016 16:28
[2016-12-07] MEDS ORDERED: MINERAL OIL 133 ML ENEMA PR ONE (17:00)
--- NOTE | 2016-12-07 17:52 | PN ---
Date/Time of Note Date/Time of Note DATE: 12/07/16 TIME: 17:45 Assessment/Plan VTE Prophylaxis VTE Prophylaxis Intervention: SCD's Lines/Catheters IV C[facility]ter Type (from [facility]): Saline Lock Assessment/Plan Chief Complaint/Hosp Course Patient is awaiting for thyroid uptake scan. Patient status post left upper extremity fistulogram today. Remains hemodynamically stable. Assessment/Plan -Dysphagia and odynophagia. Dr. Smallwood is following in gastroenterology consultation. -Thyrotoxicosis with multinodular goiter, Dr. Damon is following in endocrinology consultation. Dr. Red is following in general surgery consultation. -History of hyperparathyroidism -Hemodialysis dependent end-stage renal disease, Dr. Silverio following in nephrology -Central stenosis, Dr. Francisco is following in vascular surgery consultation. Status post left upper extremity fistulogram Further recommendations based on clinical course. Plan of care discussed with Dr. Turner Problems: Exam/Review of Systems Vital Signs Vitals Vital Signs Date Time Temp Pulse Resp B/P Pulse Ox O2 Delivery O2 Flow Rate FiO2 12/07/16 16:34 101 12/07/16 15:35 97.9 18 102/54 98 12/06/16 16:00 Room Air Intake and Output 12/06/16 12/06/16 12/07/16 15:00 23:00 07:00 Intake Total 900 ml 150 ml Output Total 0 ml Balance 900 ml 150 ml Exam Constitutional: alert, oriented Neck: other (Tenderness), thyromegaly Cardiovascular: nl pulses Gastrointestinal: non-tender, soft Extremities: normal pulses, other (Left upper extremity AV fistula) 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: nl mental status Results Result Diagram: 12/07/16 0726 12/07/16 0725 Results 24 hrs Laboratory Tests Test 12/07/16 07:25 12/07/16 07:26 Sodium Level 135 Potassium Level 5.1 Chloride Level 93 L Carbon Dioxide Level 25 Anion Gap 22 H Blood Urea Nitrogen 56 H Creatinine 8.37 #H Glucose Level 72 Calcium Level 10.5 H White Blood Count 4.6 L Red Blood Count 2.50 L Hemoglobin 8.1 L Hematocrit 25.8 L Mean Corpuscular Volume 103.2 H Mean Corpuscular Hemoglobin 32.4 Mean Corpuscular Hemoglobin Concent 31.4 L Red Cell Distribution Width 14.8 H Platelet Count 144 Mean Platelet Volume 10.8 H Neutrophils % 60.1 Lymphocytes % 23.7 Monocytes % 9.2 Eosinophils % 6.1 Basophils % 0.2 Nucleated Red Blood Cells % 0.0 Neutrophils # 2.7 Lymphocytes # 1.1 Monocytes # 0.4 Eosinophils # 0.3 Basophils # 0.0 Nucleated Red Blood Cells # 0.0 Medications Medications Current Medications Acetaminophen (Tylenol Tab) 650 mg Q4H PRN PO PAIN AND OR ELEVATED TEMP; Start 12/02/16 at 23:00 Hydralazine HCl (Apresoline) 25 mg Q6H PRN PO SBP >170; Start 12/02/16 at 23:00 Morphine Sulfate (morphine) 2 mg Q4H PRN IV MODERATE PAIN LEVEL 4-6 Last administered on 12/07/16 16:06; Admin Dose 2 MG; Start 12/02/16 at 23:00 Diphenhydramine HCl (Benadryl) 25 mg Q6H PRN IV Itching Last administered on 16:06; Admin Dose 25 MG; Start 12/02/16 at 23:00 Ondansetron HCl (Zofran Inj) 4 mg Q6H PRN IV NAUSEA AND/OR VOMITING Last administered on 12/06/16 18:33; Admin Dose 4 MG; Start 12/03/16 at 19:30 Cinacalcet (Sensipar) 90 mg BID PO Last administered on 12/07/16 09:59; Admin Dose 90 MG; Start 12/03/16 at 21:30 Pantoprazole (Protonix Tab) 40 mg DAILY@06 PO Last administered on 12/07/16 05 :59; Admin Dose 40 MG; Start 12/04/16 at 14:00 Ibuprofen (Motrin) 600 mg Q8 PO Last administered on 12/07/16 13:40; Admin Dose 600 MG; Start 12/05/16 at 22:00 Gabapentin (Neurontin) 100 mg TID PO Last administered on 12/07/16 13:40; Admin Dose 100 MG; Start 12/06/16 at 21:00 Lubiprostone (Amitiza) 24 mcg BID PO ; Start 12/07/16 at 16:30 Metoclopramide HCl (Reglan) 5 mg Q8 IV Last administered on 12/07/16 16:12; Admin Dose 5 MG; Start 12/07/16 at 16:00 Mineral Oil (Mineral Oil) 30 ml BID PO ; Start 12/07/16 at 21:00; Stop 12/11/16 at 09:00 ERICK ROBETRSON Dec 07, 2016 17:52
--- NOTE | 2016-12-07 18:05 | CONS ---
Date/Time of Note Date/Time of Note DATE: 12/07/16 TIME: 18:01 Assessment/Plan Assessment/Plan Chief Complaint/Hosp Course Pt is anxiously aawaiting further studies Problems: Additional Assessment/Plan Pt already had HD, there was no problem with AVF Cont'd Hospitalization Reason: Await V Sx plans, doubt if there's any problem with AVF Consultation Date/Type/Reason Admit Date/Time Dec 02, 2016 at 17:19 Initial Consult Date 12/04/16 Type of Consultation: renal Referring Provider: LUANNE WALTER MD Exam/Review of Systems Vital Signs Vitals Vital Signs Date Time Temp Pulse Resp B/P Pulse Ox O2 Delivery O2 Flow Rate FiO2 12/07/16 16:34 101 12/07/16 15:35 97.9 18 102/54 98 12/06/16 16:00 Room Air Intake and Output 12/06/16 12/06/16 12/07/16 15:00 23:00 07:00 Intake Total 900 ml 150 ml Output Total 0 ml Balance 900 ml 150 ml Exam Pt is in no distress Constitutional: alert, oriented, well developed Psych: anxiety, nl mood/affect, no complaints Head: atraumatic, normocephalic Eyes: EOMI, PERRL, nl conjunctiva, nl lids, nl sclera ENMT: nl external ears & nose, nl lips & teeth, nl nasal mucosa & septum Neck: non-tender, supple Respiratory: clear to auscultation, normal air movement Cardiovascular: nl pulses, regular rate and rhythm Gastrointestinal: nl liver, spleen, non-tender, soft Musculoskeletal: nl extremities to inspection, nl gait and stance Extremities: normal pulses, other (Lt arm avf Bruit+) 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: IRONWORKER HELPER SHOP II-XII intact, nl mental status, nl speech, nl strength Skin: nl turgor, No rash or lesions Lymph: nl lymph nodes Results Hct stable at 25% Result Diagram: 12/07/1626 12/07/16 0725 Results 24 hrs Laboratory Tests Test 12/07/16 07:25 12/07/16 07:26 Sodium Level 135 Potassium Level 5.1 Chloride Level 93 L Carbon Dioxide Level 25 Anion Gap 22 H Blood Urea Nitrogen 56 H Creatinine 8.37 #H Glucose Level 72 Calcium Level 10.5 H White Blood Count 4.6 L Red Blood Count 2.50 L Hemoglobin 8.1 L Hematocrit 25.8 L Mean Corpuscular Volume 103.2 H Mean Corpuscular Hemoglobin 32.4 Mean Corpuscular Hemoglobin Concent 31.4 L Red Cell Distribution Width 14.8 H Platelet Count 144 Mean Platelet Volume 10.8 H Neutrophils % 60.1 Lymphocytes % 23.7 Monocytes % 9.2 Eosinophils % 6.1 Basophils % 0.2 Nucleated Red Blood Cells % 0.0 Neutrophils # 2.7 Lymphocytes # 1.1 Monocytes # 0.4 Eosinophils # 0.3 Basophils # 0.0 Nucleated Red Blood Cells # 0.0 Medications Medications Current Medications Acetaminophen (Tylenol Tab) 650 mg Q4H PRN PO PAIN AND OR ELEVATED TEMP; Start 12/02/16 at 23:00 Hydralazine HCl (Apresoline) 25 mg Q6H PRN PO SBP >170; Start 12/02/16 at 23:00 Morphine Sulfate (morphine) 2 mg Q4H PRN IV MODERATE PAIN LEVEL 4-6 Last administered on 12/07/16 16:06; Admin Dose 2 MG; Start 12/02/16 at 23:00 Diphenhydramine HCl (Benadryl) 25 mg Q6H PRN IV Itching Last administered on 16:06; Admin Dose 25 MG; Start 12/02/16 at 23:00 Ondansetron HCl (Zofran Inj) 4 mg Q6H PRN IV NAUSEA AND/OR VOMITING Last administered on 12/06/16 18:33; Admin Dose 4 MG; Start 12/03/16 at 19:30 Cinacalcet (Sensipar) 90 mg BID PO Last administered on 12/07/16 09:59; Admin Dose 90 MG; Start 12/03/16 at 21:30 Pantoprazole (Protonix Tab) 40 mg DAILY@06 PO Last administered on 12/07/16 05 :59; Admin Dose 40 MG; Start 12/04/16 at 14:00 Ibuprofen (Motrin) 600 mg Q8 PO Last administered on 12/07/16 13:40; Admin Dose 600 MG; Start 12/05/16 at 22:00 Gabapentin (Neurontin) 100 mg TID PO Last administered on 12/07/16 13:40; Admin Dose 100 MG; Start 12/06/16 at 21:00 Lubiprostone (Amitiza) 24 mcg BID PO ; Start 12/07/16 at 16:30 Metoclopramide HCl (Reglan) 5 mg Q8 IV Last administered on 12/07/16t 16:12; Admin Dose 5 MG; Start 12/07/16 at 16:00 Mineral Oil (Mineral Oil) 30 ml BID PO ; Start 12/07/16 at 21:00; Stop 12/11/16 at 09:00 CAMERON ISIDRO MD Dec 07, 2016 18:04
[2016-12-07] MEDS: LUBIPROSTONE 24 MCG CAP PO SCH (18:22)
[2016-12-07] MEDS: MINERAL OIL 30ML CUP PO SCH (20:37)
[2016-12-08] VITALS (11 sets, daily range): BP systolic 98–138; BP diastolic 47–59; PULSE 88–104; RESP 18
[2016-12-08] MEDS: LUBIPROSTONE 24 MCG CAP PO SCH ×3 (00:44→21:45)
[2016-12-08] MEDS: DIPHENHYDRAMINE 50 MG INJ IV PRN ×4 (04:05→22:26)
[2016-12-08] MEDS: morphine 2 MG INJ IV PRN ×4 (04:06→22:25)
[2016-12-08] MEDS: PANTOPRAZOLE (EC) 40 MG TAB PO SCH (05:43)
[2016-12-08] MEDS: IBUPROFEN 600 MG TAB PO SCH ×3 (05:43→21:45)
[2016-12-08] MEDS: METOCLOPRAMIDE 10 MG INJ IV SCH ×3 (05:43→21:45)
[2016-12-08 08:01] LABS: BASOPHILS % 0.2 % (0.0-2.0); EOSINOPHILS # 0.2 10^3/ul (0.0-0.5); EOSINOPHILS % 4.4 % (0.0-7.0); HEMATOCRIT 26.4 % (37.0-47.0); HEMOGLOBIN 8.2 g/dl (12.0-16.0); LYMPHOCYTES # 1.2 10^3/ul (0.8-2.9); MEAN CORPUSCULAR HEMOGLOBIN 32.5 pg (29.0-33.0); MEAN CORPUSCULAR HGB CONC 31.1 g/dl (32.0-37.0); MEAN CORPUSCULAR VOLUME 104.8 fl (82.0-101.0); MEAN PLATELET VOLUME 10.5 fl (7.4-10.4); MONOCYTE # 0.4 10^3/ul (0.3-0.9); MONOCYTES % 8.4 % (0.0-11.0); NEUTROPHILS % 64.6 % (39.0-77.0); PLATELET COUNT 152 10^3/UL (140-415); RED BLOOD COUNT 2.52 10^6/ul (4.20-5.40); RED CELL DISTRIBUTION WIDTH 14.6 % (11.5-14.5); WHITE BLOOD COUNT 5.2 10^3/ul (4.8-10.8)
--- NOTE | 2016-12-08 08:18 | CONS ---
DATE OF SERVICE: 12/07/2016 CHIEF COMPLAINT: Patient is a 31-year-old with underlying numbness in her face, thyroid tumor. PHYSICAL EXAMINATION: GENERAL: The patient is alert, awake, oriented. Following simple commands. HEART: Regular rate and rhythm. LUNGS: Equal breath sounds. CRANIAL NERVES: Cranial nerve II: Pupils equal on both sides, reactive to light. Cranial nerves II, IV and : Extraocular muscles intact. Cranial nerve V: Equal sensation to face. Cranial nerve VII: Symmetrical face. Cranial nerve VIII: Decreased hearing bilaterally. Cranial nerves IX and X: Elevates palate. Cranial nerve XI: Elevates shoulder 5/5. Cranial nerve XII: With straight tongue. MOTOR: Decreased right hand internal review and audit compliance 4+/5. SENSATION: Decreased for glove and sock area for light touch and temperature. COORDINATION: [id number] test intact. ASSESSMENT AND PLAN: 1. Patient is 31 years old with underlying left face numbness. 2. Start her on Neurontin 100 mg 3 times a day, which the patient has had some improvement. 3. Trigeminal neuralgia. Follow observation with nerve conduction study as an outpatient for that. 4. History of thyroid tumor, which the patient is followed by ultrasound and possible for surgical interference. Dictated By: Marshal Glover MD /facundo/katie /Document#: [id number]
[2016-12-08 08:29] LABS: CALCIUM 10.5 mg/dl (8.4-10.2); CREATININE 6.71 mg/dl (0.44-1.00); POTASSIUM 5.6 mmol/L (3.5-5.1)
[2016-12-08] MEDS: SEVELAMER 800 MG TAB PO SCH ×3 (08:35→17:23)
[2016-12-08] MEDS: GABAPENTIN 100 MG CAP PO SCH ×3 (08:36→21:45)
[2016-12-08] MEDS: CINACALCET 30 MG TAB PO SCH ×2 (08:36→21:45)
[2016-12-08] MEDS: MINERAL OIL 30ML CUP PO SCH ×2 (08:38→21:45)
--- NOTE | 2016-12-08 10:32 | CONS ---
Date/Time of Note Date/Time of Note DATE: 12/08/16 TIME: 10:31 Assessment/Plan Assessment/Plan Additional Assessment/Plan 1. Increased BNP, assess congestive heart failure with secondary renal failure.- no sig sob at thie time - better fluid status now - HD as needed. 2. Hypotension, borderline- well Rx 3. Goiter multinodular. 4. End-stage renal disease on hemodialysis- Rx with renal team 5. Hyperkalemia resolved- better - IMPROVED 6. Abdominal pain. Consultation Date/Type/Reason Admit Date/Time Dec 02, 2016 at 17:19 Initial Consult Date 12/04/16 Type of Consultation: renal Referring Provider: LUANNE WALTER MD 24 HR Interval Summary Free Text/Dictation NO acute events - BP in good range ROS: No fever, no chills, no nausea, no vomiting, no diarrhea/constipation No recent weight changes No chest pain, no PND, no orthopnea No dizziness, blurred vision No thirst, no heat or cold intolerance Exam/Review of Systems Vital Signs Vitals Vital Signs Date Time Temp Pulse Resp B/P Pulse Ox O2 Delivery O2 Flow Rate FiO2 12/08/16 08:13 88 12/08/16 07:21 98.0 18 98/47 98 12/06/16 16:00 Room Air Intake and Output 12/07/16 12/07/16 12/08/16 14:59 22:59 06:59 Intake Total 500 ml 700 ml 400 ml Output Total 3100 ml 0 ml Balance -2600 ml 700 ml 400 ml Exam General: WN/WD/NAD, AOx 3 HEENT: Unicetric/atraumatic/EOMI (follow commands) NECK: JVD elevated, no thyromegaly Lymph: no lymphadenopathy HEART: regular with no S3, II/ systolic murmur at apex LUNGS: Coarse sounds ABD: soft, NT, ND, +BS : Intact Neuro: non focal SKIN: chronic changes EXT: trace edema Results Result Diagram: 12/08/16 0721 12/08/16 0654 Results 24 hrs Laboratory Tests Test 12/08/16 06:54 12/08/16 07:21 12/08/16 08:13 Sodium Level 141 Potassium Level 5.6 H Chloride Level 94 L Carbon Dioxide Level 28 Anion Gap 25 H Blood Urea Nitrogen 46 H Creatinine 6.71 H Glucose Level 60 #L Calcium Level 10.5 H White Blood Count 5.2 Red Blood Count 2.52 L Hemoglobin 8.2 L Hematocrit 26.4 L Mean Corpuscular Volume 104.8 H Mean Corpuscular Hemoglobin 32.5 Mean Corpuscular Hemoglobin Concent 31.1 L Red Cell Distribution Width 14.6 H Platelet Count 152 Mean Platelet Volume 10.5 H Neutrophils % 64.6 Lymphocytes % 22.0 Monocytes % 8.4 Eosinophils % 4.4 Basophils % 0.2 Nucleated Red Blood Cells % 0.0 Neutrophils # (Manual) 3.4 Lymphocytes # 1.2 Monocytes # 0.4 Eosinophils # 0.2 Basophils # 0.0 Nucleated Red Blood Cells # 0.0 Lab Scanned Report REFERENCE LAB Medications Medications Current Medications Acetaminophen (Tylenol Tab) 650 mg Q4H PRN PO PAIN AND OR ELEVATED TEMP; Start 12/02/16 at 23:00 Hydralazine HCl (Apresoline) 25 mg Q6H PRN PO SBP >170; Start 12/02/16 at 23:00 Morphine Sulfate (morphine) 2 mg Q4H PRN IV MODERATE PAIN LEVEL 4-6 Last administered on 12/08/16 10:10; Admin Dose 2 MG; Start 12/02/16 at 23:00 Diphenhydramine HCl (Benadryl) 25 mg Q6H PRN IV Itching Last administered on 10:09; Admin Dose 25 MG; Start 12/02/16 at 23:00 Ondansetron HCl (Zofran Inj) 4 mg Q6H PRN IV NAUSEA AND/OR VOMITING Last administered on 12/06/16 18:33; Admin Dose 4 MG; Start 12/03/16 at 19:30 Cinacalcet (Sensipar) 90 mg BID PO Last administered on 12/08/16 08:36; Admin Dose 90 MG; Start 12/03/16 at 21:30 Pantoprazole (Protonix Tab) 40 mg DAILY@06 PO Last administered on 12/08/16 05 :43; Admin Dose 40 MG; Start 12/04/16 at 14:00 Ibuprofen (Motrin) 600 mg Q8 PO Last administered on 12/08/16 05:43; Admin Dose 600 MG; Start 12/05/16 at 22:00 Gabapentin (Neurontin) 100 mg TID PO Last administered on 12/08/16 08:36; Admin Dose 100 MG; Start 12/06/16 at 21:00 Lubiprostone (Amitiza) 24 mcg BID PO Last administered on 12/08/16 08:37; Admin Dose 24 MCG; Start 12/07/16 at 16:30 Metoclopramide HCl (Reglan) 5 mg Q8 IV Last administered on 12/08/16 05:43; Admin Dose 5 MG; Start 12/07/16 at 16:00 Mineral Oil (Mineral Oil) 30 ml BID PO Last administered on 12/08/16 08:38; Admin Dose 30 ML; Start 12/07/16 at 21:00; Stop 12/11/16 at 09:00 YUMIKO HO MD Dec 08, 2016 10:32
--- NOTE | 2016-12-08 13:11 | CONS ---
Date/Time of Note Date/Time of Note DATE: 12/08/16 TIME: 13:10 Assessment/Plan Assessment/Plan Additional Assessment/Plan 1. End-stage kidney disease on hemodialysis. 2. Hyperparathyroidism, secondary, severe, with hypercalcemia and elevated alkaline phosphatase= Renal bone disease 3. Anemia of chronic renal disease. 4. ?Thyromegaly 5. Dysphagia 6. Hyperkalemia Consultation Date/Type/Reason Admit Date/Time Dec 02, 2016 at 17:19 Initial Consult Date 12/04/16 Type of Consultation: renal Referring Provider: LUANNE WALTER MD 24 HR Interval Summary Constitutional: No requiring O2 Exam/Review of Systems Vital Signs Vitals Vital Signs Date Time Temp Pulse Resp B/P Pulse Ox O2 Delivery O2 Flow Rate FiO2 12/08/16 12:13 100 12/08/16 07:21 98.0 18 98/47 98 12/06/16 16:00 Room Air Intake and Output 12/07/16 12/07/16 12/08/16 15:00 23:00 07:00 Intake Total 500 ml 700 ml 400 ml Output Total 3100 ml 0 ml Balance -2600 ml 700 ml 400 ml Exam Constitutional: alert, No distress ENMT: mucosa pink and moist Neck: No jvd Respiratory: clear to auscultation Cardiovascular: regular rate and rhythm, No edema Gastrointestinal: non-tender, soft 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: No lethargic Skin: other (LUEAVF) Results Result Diagram: 12/08/16 0721 12/08/16 0654 Results 24 hrs Laboratory Tests Test 12/08/16 06:54 12/08/16 07:21 12/08/16 08:13 Sodium Level 141 Potassium Level 5.6 H Chloride Level 94 L Carbon Dioxide Level 28 Anion Gap 25 H Blood Urea Nitrogen 46 H Creatinine 6.71 H Glucose Level 60 #L Calcium Level 10.5 H White Blood Count 5.2 Red Blood Count 2.52 L Hemoglobin 8.2 L Hematocrit 26.4 L Mean Corpuscular Volume 104.8 H Mean Corpuscular Hemoglobin 32.5 Mean Corpuscular Hemoglobin Concent 31.1 L Red Cell Distribution Width 14.6 H Platelet Count 152 Mean Platelet Volume 10.5 H Neutrophils % 64.6 Lymphocytes % 22.0 Monocytes % 8.4 Eosinophils % 4.4 Basophils % 0.2 Nucleated Red Blood Cells % 0.0 Neutrophils # (Manual) 3.4 Lymphocytes # 1.2 Monocytes # 0.4 Eosinophils # 0.2 Basophils # 0.0 Nucleated Red Blood Cells # 0.0 Lab Scanned Report REFERENCE LAB Medications Medications Current Medications Acetaminophen (Tylenol Tab) 650 mg Q4H PRN PO PAIN AND OR ELEVATED TEMP; Start 12/02/16 at 23:00 Hydralazine HCl (Apresoline) 25 mg Q6H PRN PO SBP >170; Start 12/02/16 at 23:00 Morphine Sulfate (morphine) 2 mg Q4H PRN IV MODERATE PAIN LEVEL 4-6 Last administered on 12/08/16 10:10; Admin Dose 2 MG; Start 12/02/16 at 23:00 Diphenhydramine HCl (Benadryl) 25 mg Q6H PRN IV Itching Last administered on 10:09; Admin Dose 25 MG; Start 12/02/16 at 23:00 Ondansetron HCl (Zofran Inj) 4 mg Q6H PRN IV NAUSEA AND/OR VOMITING Last administered on 12/06/16 18:33; Admin Dose 4 MG; Start 12/03/16 at 19:30 Cinacalcet (Sensipar) 90 mg BID PO Last administered on 12/08/16 08:36; Admin Dose 90 MG; Start 12/03/16 at 21:30 Pantoprazole (Protonix Tab) 40 mg DAILY@06 PO Last administered on 12/08/16 05 :43; Admin Dose 40 MG; Start 12/04/16 at 14:00 Ibuprofen (Motrin) 600 mg Q8 PO Last administered on 12/08/16 05:43; Admin Dose 600 MG; Start 12/05/16 at 22:00 Gabapentin (Neurontin) 100 mg TID PO Last administered on 12/08/16 08:36; Admin Dose 100 MG; Start 12/06/16 at 21:00 Lubiprostone (Amitiza) 24 mcg BID PO Last administered on 12/08/16 08:37; Admin Dose 24 MCG; Start 12/07/16 at 16:30 Metoclopramide HCl (Reglan) 5 mg Q8 IV Last administered on 12/08/16 05:43; Admin Dose 5 MG; Start 8/14/17 at 16:00 Mineral Oil (Mineral Oil) 30 ml BID PO Last administered on 12/08/16t 08:38; Admin Dose 30 ML; Start 12/07/16 at 21:00; Stop 12/11/16 at 09:00 JUANJO TATUM MD Dec 08, 2016 13:11
--- NOTE | 2016-12-08 13:16 | RADRPT ---
PROCEDURE: I - 123 thyroid uptake and scan CLINICAL INDICATION: 31 -year-old patient with a thyroid nodule. TECHNIQUE: Following the oral administration of 0.17 mCi of I - 123, thyroid uptake and scan was o btained. COMPARISON: No prior thyroid scans. Ultrasound of the thyroid gland dated December 02, 2016. FINDINGS: 6 hours radioiodine uptake is 1 % (normal range is 5% - 20%). 24 hours radioiodine uptake is 2% (no rmal range is 7% - 35%). The thyroid gland demonstrates a poorly visualized enlarged thyroid gland (approximately 1.5 x laci l size) with slightly heterogeneous distribution of radionuclide throughout the thyroid gland. IMPRESSION: 1. Poorly visualized enlarged thyroid gland with slightly heterogeneous distribution of radionuclid e. 2. Low radioiodine uptake. RPTAT: HH .Cynthia Nash MD, Date Time Electronically viewed and signed by .Cynthia Nash MD, on 12/08/2016 13:16 .L/
[2016-12-08] MEDS ORDERED: NA POLYST SULFON 15 GM/60 ML BTL PO ONE (13:30)
--- NOTE | 2016-12-08 16:41 | PN ---
Date/Time of Note Date/Time of Note DATE: 12/08/16 TIME: 16:37 Assessment/Plan VTE Prophylaxis VTE Prophylaxis Intervention: SCD's Lines/Catheters [facility] Saline Lock Assessment/Plan Chief Complaint/Hosp Course Patient is tolerating renal diet well. Continues to complain of neck pressure. Potassium is 5.6 status post Kayexalate. Assessment/Plan -Hyperkalemia, status post Kayexalate, continue to monitor electrolytes -Dysphagia and odynophagia. Dr. Smallwood is following in gastroenterology consultation. Patient status post recent EGD at [facility]. -Thyrotoxicosis with multinodular goiter, Dr. Damon is following in endocrinology consultation. Dr. Red is following in general surgery consultation. -History of hyperparathyroidism -Hemodialysis dependent end-stage renal disease, Dr. Silverio following in nephrology , continue hemodialysis per nephrology. -Central stenosis, Dr. Francisco is following in vascular surgery consultation. Status post left upper extremity fistulogram. Further recommendations based on clinical course. Plan of care discussed with Dr. Turner Problems: Exam/Review of Systems Vital Signs Vitals Vital Signs Date Time Temp Pulse Resp B/P Pulse Ox O2 Delivery O2 Flow Rate FiO2 12/08/16 16:07 104 12/08/16 16:01 98.4 18 109/50 98 12/06/16 16:00 Room Air Intake and Output 12/07/16 12/07/16 12/08/16 15:00 23:00 07:00 Intake Total 500 ml 700 ml 400 ml Output Total 3100 ml 0 ml Balance -2600 ml 700 ml 400 ml Exam Constitutional: alert, oriented Neck: other (Tenderness), thyromegaly Cardiovascular: nl pulses Gastrointestinal: non-tender, soft Extremities: normal pulses, other (Left upper extremity AV fistula) 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: nl mental status Results Result Diagram: 12/08/16 0721 12/08/16 0654 Results 24 hrs Laboratory Tests Test 12/08/16 06:54 12/08/16 07:21 12/08/16 08:13 Sodium Level 141 Potassium Level 5.6 H Chloride Level 94 L Carbon Dioxide Level 28 Anion Gap 25 H Blood Urea Nitrogen 46 H Creatinine 6.71 H Glucose Level 60 #L Calcium Level 10.5 H White Blood Count 5.2 Red Blood Count 2.52 L Hemoglobin 8.2 L Hematocrit 26.4 L Mean Corpuscular Volume 104.8 H Mean Corpuscular Hemoglobin 32.5 Mean Corpuscular Hemoglobin Concent 31.1 L Red Cell Distribution Width 14.6 H Platelet Count 152 Mean Platelet Volume 10.5 H Neutrophils % 64.6 Lymphocytes % 22.0 Monocytes % 8.4 Eosinophils % 4.4 Basophils % 0.2 Nucleated Red Blood Cells % 0.0 Neutrophils # (Manual) 3.4 Lymphocytes # 1.2 Monocytes # 0.4 Eosinophils # 0.2 Basophils # 0.0 Nucleated Red Blood Cells # 0.0 Lab Scanned Report REFERENCE LAB Medications Medications Current Medications Acetaminophen (Tylenol Tab) 650 mg Q4H PRN PO PAIN AND OR ELEVATED TEMP; Start 12/02/16 at 23:00 Hydralazine HCl (Apresoline) 25 mg Q6H PRN PO SBP >170; Start 12/02/16 at 23:00 Morphine Sulfate (morphine) 2 mg Q4H PRN IV MODERATE PAIN LEVEL 4-6 Last administered on 12/08/16 16:03; Admin Dose 2 MG; Start 12/02/16 at 23:00 Diphenhydramine HCl (Benadryl) 25 mg Q6H PRN IV Itching Last administered on 16:03; Admin Dose 25 MG; Start 12/02/16 at 23:00 Ondansetron HCl (Zofran Inj) 4 mg Q6H PRN IV NAUSEA AND/OR VOMITING Last administered on 12/06/16 18:33; Admin Dose 4 MG; Start 12/03/16 at 19:30 Cinacalcet (Sensipar) 90 mg BID PO Last administered on 12/08/16 08:36; Admin Dose 90 MG; Start 12/03/16 at 21:30 Pantoprazole (Protonix Tab) 40 mg DAILY@06 PO Last administered on 12/08/16 05 :43; Admin Dose 40 MG; Start 12/04/16 at 14:00 Ibuprofen (Motrin) 600 mg Q8 PO Last administered on 12/08/16 13:36; Admin Dose 600 MG; Start 12/05/16 at 22:00 Gabapentin (Neurontin) 100 mg TID PO Last administered on 12/08/16 13:15; Admin Dose 100 MG; Start 12/06/16 at 21:00 Lubiprostone (Amitiza) 24 mcg BID PO Last administered on 12/08/16 08:37; Admin Dose 24 MCG; Start 12/07/16 at 16:30 Metoclopramide HCl (Reglan) 5 mg Q8 IV Last administered on 12/08/16 13:36; Admin Dose 5 MG; Start 12/07/16 at 16:00 Mineral Oil (Mineral Oil) 30 ml BID PO Last administered on 12/08/16 08:38; Admin Dose 30 ML; Start 12/07/16 at 21:00; Stop 12/11/16 at 09:00 ERICK ROBERTSON Dec 08, 2016 16:41
--- NOTE | 2016-12-08 18:21 | PN ---
Date/Time of Note Date/Time of Note DATE: 12/08/16 TIME: 18:09 Assessment/Plan VTE Prophylaxis VTE Prophylaxis Intervention: ambulation Lines/Catheters [facility] Saline Lock Assessment/Plan Assessment/Plan 31-year-old female with multiple medical problems including 1. End-stage renal disease with hemodialysis 2. 3ry hyperparathyroidism. #3 Gastroparesis causing dilatation and distention of the stomach causing pain for the patient #4 Abnormal thyroid scan question of diagnosis. #5 Chronic constipation #6 Dysphagia and odynophagia most probably due to pressure of the enlarged parathyroid gland on the left side exerting pressure on the esophagus Engorged venous system on the head and neck and chest due to superior vena cava stenosis or obstruction. Plan: We will await final plan of treatment for this patient. Per conclusion of all the consults. Subjective 24 Hr Interval Summary Free Text/Dictation Still complaining of pressure over the neck. Complaining of burning sensation in the neck area. Still complains that she has difficulty swallowing solid food. Has had a small amount of bowel movement today after getting Fleet Enema. Still complaining of epigastric abdominal pain. No shortness of breath. Exam/Review of Systems Vital Signs Vitals Vital Signs Date Time Temp Pulse Resp B/P Pulse Ox O2 Delivery O2 Flow Rate FiO2 12/08/16 16:07 104 12/08/16 16:01 98.4 18 109/50 98 12/06/16 16:00 Room Air Intake and Output 12/07/16 12/07/16 12/08/16 15:00 23:00 07:00 Intake Total 500 ml 700 ml 400 ml Output Total 3100 ml 0 ml Balance -2600 ml 700 ml 400 ml Exam Alert awake oriented 3. She is on the bed and sitting position. Neck veins are engorged. Abdomen is not distended but is tender on deep palpation especially over the epigastric area. Parathyroid hormone intact came back as 2009 which is compatible with 3ry hyper parathyroidism. Nuclear medicine of thyroid iodine uptake shows minimal trace of uptake by the thyroid gland. While the thyroid-stimulating hormone and T4 is low. Significance of this finding will be discussed with decorator lighting fixtures. Results Result Diagram: 12/08/16 0721 12/08/16 0654 Results 24 hrs Laboratory Tests Test 12/08/16 06:54 12/08/16 07:21 12/08/16 08:13 Sodium Level 141 Potassium Level 5.6 H Chloride Level 94 L Carbon Dioxide Level 28 Anion Gap 25 H Blood Urea Nitrogen 46 H Creatinine 6.71 H Glucose Level 60 #L Calcium Level 10.5 H White Blood Count 5.2 Red Blood Count 2.52 L Hemoglobin 8.2 L Hematocrit 26.4 L Mean Corpuscular Volume 104.8 H Mean Corpuscular Hemoglobin 32.5 Mean Corpuscular Hemoglobin Concent 31.1 L Red Cell Distribution Width 14.6 H Platelet Count 152 Mean Platelet Volume 10.5 H Neutrophils % 64.6 Lymphocytes % 22.0 Monocytes % 8.4 Eosinophils % 4.4 Basophils % 0.2 Nucleated Red Blood Cells % 0.0 Neutrophils # (Manual) 3.4 Lymphocytes # 1.2 Monocytes # 0.4 Eosinophils # 0.2 Basophils # 0.0 Nucleated Red Blood Cells # 0.0 Lab Scanned Report REFERENCE LAB Medications Medications Current Medications Acetaminophen (Tylenol Tab) 650 mg Q4H PRN PO PAIN AND OR ELEVATED TEMP; Start 12/02/16 at 23:00 Hydralazine HCl (Apresoline) 25 mg Q6H PRN PO SBP >170; Start 12/02/16 at 23:00 Morphine Sulfate (morphine) 2 mg Q4H PRN IV MODERATE PAIN LEVEL 4-6 Last administered on 12/08/16 16:03; Admin Dose 2 MG; Start 12/02/16 at 23:00 Diphenhydramine HCl (Benadryl) 25 mg Q6H PRN IV Itching Last administered on 16:03; Admin Dose 25 MG; Start 12/02/16 at 23:00 Ondansetron HCl (Zofran Inj) 4 mg Q6H PRN IV NAUSEA AND/OR VOMITING Last administered on 12/06/16 18:33; Admin Dose 4 MG; Start 12/03/16 at 19:30 Cinacalcet (Sensipar) 90 mg BID PO Last administered on 12/08/16 08:36; Admin Dose 90 MG; Start 12/03/16 at 21:30 Pantoprazole (Protonix Tab) 40 mg DAILY@06 PO Last administered on 12/08/16 05 :43; Admin Dose 40 MG; Start 12/04/16 at 14:00 Ibuprofen (Motrin) 600 mg Q8 PO Last administered on 12/08/16 13:36; Admin Dose 600 MG; Start 12/05/16 at 22:00 Gabapentin (Neurontin) 100 mg TID PO Last administered on 12/08/16 13:15; Admin Dose 100 MG; Start 12/06/16 at 21:00 Lubiprostone (Amitiza) 24 mcg BID PO Last administered on 12/08/16 08:37; Admin Dose 24 MCG; Start 12/07/16 at 16:30 Metoclopramide HCl (Reglan) 5 mg Q8 IV Last administered on 12/08/16 13:36; Admin Dose 5 MG; Start 12/07/16 at 16:00 Mineral Oil (Mineral Oil) 30 ml BID PO Last administered on 12/08/16 08:38; Admin Dose 30 ML; Start 12/07/16 at 21:00; Stop 12/11/16 at 09:00 TANISHA MALONEY MD Dec 08, 2016 18:21
[2016-12-08] MEDS ORDERED: MINERAL OIL 133 ML ENEMA PR ONE (18:30)
[2016-12-08 18:56] LABS: INR 1.16; PROTIME 14.8 Sec (12.2-14.2); PT RATIO 1.2
[2016-12-08 18:57] LABS: PARTIAL THROMBOPLASTIN TIME 33.9 Sec (25.0-35.0)
--- NOTE | 2016-12-08 20:17 | CONS ---
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 However, reassuring for performing FNA which we can do with ultrasound guidance tomorrow. (2) Painful thyroid Status: Acute Comment: Expect FNA may be painful but aspiration may actually relieve her pain as well. (3) Secondary hyperparathyroidism of renal origin Status: Chronic Comment: Must make sure this is not actually parathyroid. Have ordered for washings to be sent for PTH since FNA cannot differentiate between thyroid and parathyroid tissue. Consultation Date/Type/Reason Admit Date/Time Dec 02, 2016 at 17:19 Initial Consult Date 12/04/16 Type of Consultation: Endocrinology Reason for Consultation Multinodular goiter Referring Provider: LUANNE WALTER MD 24 HR Interval Summary Constitutional: no complaints Detailed Summary ENT: dysphagia Respiratory: no complaints Cardiovascular: no complaints Gastrointestinal: no complaints Genitourinary: no complaints Musculoskeletal: no complaints Neurologic: no complaints Exam/Review of Systems Vital Signs Vitals VS - Last 72 Hours, by Label Date Time Temp Pulse Resp B/P Pulse Ox O2 Delivery O2 Flow Rate FiO2 12/08/16 20:05 98.3 107 18 138/59 95 12/08/16 16:07 104 12/08/16 16:01 98.4 103 18 109/50 98 12/08/16 12:13 100 12/08/16 08:13 88 12/08/16 07:21 98.0 84 18 98/47 98 12/08/16 04:21 90 12/08/16 03:59 98.1 96 18 103/54 100 12/08/16 00:18 93 12/08/16 00:01 98.8 103 18 101/50 97 12/07/16 20:11 98.2 91 18 124/53 100 12/07/16 20:10 95 12/07/16 19:54 98.8 100 17 96/54 96 12/07/16 16:34 101 12/07/16 15:35 97.9 96 18 102/54 98 12/07/16 13:50 95 12/07/16 13:50 98 16 12/07/16 13:20 91 12/07/16 12:50 94 12/07/16 12:20 97 12/07/16 12:06 90 12/07/16 11:50 94 12/07/16 11:42 98.2 92 18 98/55 100 12/07/16 11:20 95 12/07/16 10:50 95 12/07/16 10:50 92 18 12/07/16 08:06 93 12/07/16 07:42 97.9 98 18 101/59 98 12/07/16 04:11 98.2 99 20 108/55 98 12/07/16 04:06 90 12/07/16 00:07 92 12/06/16 23:55 98.6 102 18 107/56 99 12/06/16 23:09 104 12/06/16 20:14 118 12/06/16 19:44 98.4 75 20 104/52 95 12/06/16 16:15 99 12/06/16 16:00 98.0 108 18 107/52 99 Room Air 12/06/16 12:18 101 12/06/16 11:51 97.9 103 16 109/55 98 12/06/16 08:34 93 98/55 12/06/16 08:08 86 12/06/16 07:29 97.9 90 16 90/47 99 12/06/16 04:15 86 12/06/16 04:00 98.6 93 18 97/60 98 12/06/16 00:17 87 12/06/16 00:00 98.6 91 18 99/55 97 12/05/16 20:15 93 Vital Signs Date Time Temp Pulse Resp B/P Pulse Ox O2 Delivery O2 Flow Rate FiO2 12/08/16 20:05 98.3 107 18 138/59 95 12/06/16 16:00 Room Air Intake and Output 12/07/16 12/07/16 12/08/16 15:00 23:00 07:00 Intake Total 500 ml 700 ml 400 ml Output Total 3100 ml 0 ml Balance -2600 ml 700 ml 400 ml Exam Constitutional: alert, oriented, well developed Psych: anxiety Neck: jvd, thyromegaly Respiratory: clear to auscultation, normal air movement Cardiovascular: jugular venous distention (JVD), nl pulses, regular rate and rhythm, No edema, No murmurs/extra sounds, No rub Gastrointestinal: bowel sounds, nl liver, spleen, non-tender, soft, No mass, No rebound or guarding Musculoskeletal: nl extremities to inspection Extremities: normal pulses 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: [employer] II-XII intact, nl mental status, nl speech, nl strength Results Result Diagram: 12/08/16 0721 12/08/16 0654 Results 24 hrs Laboratory Tests Test 12/08/16 06:54 12/08/16 07:21 12/08/16 08:13 12/08/16 18:24 Sodium Level 141 Potassium Level 5.6 H Chloride Level 94 L Carbon Dioxide Level 28 Anion Gap 25 H Blood Urea Nitrogen 46 H Creatinine 6.71 H Glucose Level 60 #L Calcium Level 10.5 H White Blood Count 5.2 Red Blood Count 2.52 L Hemoglobin 8.2 L Hematocrit 26.4 L Mean Corpuscular Volume 104.8 H Mean Corpuscular Hemoglobin 32.5 Mean Corpuscular Hemoglobin Concent 31.1 L Red Cell Distribution Width 14.6 H Platelet Count 152 Mean Platelet Volume 10.5 H Neutrophils % 64.6 Lymphocytes % 22.0 Monocytes % 8.4 Eosinophils % 4.4 Basophils % 0.2 Nucleated Red Blood Cells % 0.0 Neutrophils # (Manual) 3.4 Lymphocytes # 1.2 Monocytes # 0.4 Eosinophils # 0.2 Basophils # 0.0 Nucleated Red Blood Cells # 0.0 Lab Scanned Report REFERENCE LAB Prothrombin Time 14.8 H Prothrombin Time Ratio 1.2 INR International Normalized Ratio 1.16 Activated Partial Thromboplast Time 33.9 Medications Medications Current Medications Acetaminophen (Tylenol Tab) 650 mg Q4H PRN PO PAIN AND OR ELEVATED TEMP; Start 12/02/16 at 23:00 Hydralazine HCl (Apresoline) 25 mg Q6H PRN PO SBP >170; Start 12/02/16 at 23:00 Morphine Sulfate (morphine) 2 mg Q4H PRN IV MODERATE PAIN LEVEL 4-6 Last administered on 12/08/16 16:03; Admin Dose 2 MG; Start 12/02/16 at 23:00 Diphenhydramine HCl (Benadryl) 25 mg Q6H PRN IV Itching Last administered on 16:03; Admin Dose 25 MG; Start 12/02/16 at 23:00 Ondansetron HCl (Zofran Inj) 4 mg Q6H PRN IV NAUSEA AND/OR VOMITING Last administered on 12/06/16 18:33; Admin Dose 4 MG; Start 12/03/16 at 19:30 Cinacalcet (Sensipar) 90 mg BID PO Last administered on 12/08/16 08:36; Admin Dose 90 MG; Start 12/03/16 at 21:30 Pantoprazole (Protonix Tab) 40 mg DAILY@06 PO Last administered on 12/08/16 05 :43; Admin Dose 40 MG; Start 12/04/16 at 14:00 Ibuprofen (Motrin) 600 mg Q8 PO Last administered on 12/08/16 13:36; Admin Dose 600 MG; Start 12/05/16 at 22:00 Gabapentin (Neurontin) 100 mg TID PO Last administered on 12/08/16 13:15; Admin Dose 100 MG; Start 12/06/16 at 21:00 Lubiprostone (Amitiza) 24 mcg BID PO Last administered on 12/08/16 08:37; Admin Dose 24 MCG; Start 12/07/16 at 16:30 Mineral Oil (Mineral Oil) 30 ml BID PO Last administered on 12/08/16 08:38; Admin Dose 30 ML; Start 12/07/16 at 21:00; Stop 12/11/16 at 09:00 Metoclopramide HCl (Reglan) 10 mg Q8 IV ; Start 12/08/16 at 22:00 Mineral Oil (Fleet Mineral Oil Enema) 133 ml DAILY MT ; Start 12/09/16 at 09:00 DWAYNE YEUNG MD Dec 08, 2016 20:17
[2016-12-09] VITALS (22 sets, daily range): BP systolic 82–128; BP diastolic 45–75; PULSE 72–110; RESP 17–18
[2016-12-09] MEDS: DIPHENHYDRAMINE 50 MG INJ IV PRN ×3 (05:26→18:52)
[2016-12-09] MEDS: morphine 2 MG INJ IV PRN ×3 (05:26→18:52)
[2016-12-09] MEDS: IBUPROFEN 600 MG TAB PO SCH ×3 (05:27→21:19)
[2016-12-09] MEDS: METOCLOPRAMIDE 10 MG INJ IV SCH ×3 (05:27→21:19)
[2016-12-09] MEDS: PANTOPRAZOLE (EC) 40 MG TAB PO SCH (05:27)
--- NOTE | 2016-12-09 06:55 | CONS ---
Date/Time of Note Date/Time of Note DATE: 12/09/16 TIME: 06:54 Assessment/Plan Assessment/Plan Additional Assessment/Plan 1. End-stage kidney disease on hemodialysis. 2. Hyperparathyroidism, secondary, severe, with hypercalcemia and elevated alkaline phosphatase= Renal bone disease 3. Anemia of chronic renal disease. 4. ?Thyromegaly 5. Dysphagia 6. Hyperkalemia S/p Kayexalate yesterday F/u Chemistry HD ordered for today Planned for Bx today Cont to monitor Volume status, Electrolytes and BP closely Consultation Date/Type/Reason Admit Date/Time Dec 02, 2016 at 17:19 Initial Consult Date 12/04/16 Type of Consultation: Renal Referring Provider: LUANNE WALTER MD 24 HR Interval Summary Free Text/Dictation NPO for Bx today, Pending HD today Constitutional: No requiring O2 Exam/Review of Systems Vital Signs Vitals Vital Signs Date Time Temp Pulse Resp B/P Pulse Ox O2 Delivery O2 Flow Rate FiO2 12/09/16 04:12 92 12/09/16 04:05 98.2 18 128/63 96 12/06/16 16:00 Room Air Intake and Output 12/08/16 12/08/16 12/09/16 15:00 23:00 07:00 Intake Total 800 ml 400 ml Balance 800 ml 400 ml Exam Constitutional: alert, No distress ENMT: mucosa pink and moist Neck: No jvd Respiratory: clear to auscultation Cardiovascular: regular rate and rhythm, No edema Gastrointestinal: non-tender, soft Extremities: No pitting pedal edema 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: No lethargic Results Result Diagram: 12/08/16 0721 12/08/16 0654 Results 24 hrs Laboratory Tests Test 12/08/16 06:54 12/08/16 07:21 12/08/16 08:13 12/08/16 18:24 Sodium Level 141 Potassium Level 5.6 H Chloride Level 94 L Carbon Dioxide Level 28 Anion Gap 25 H Blood Urea Nitrogen 46 H Creatinine 6.71 H Glucose Level 60 #L Calcium Level 10.5 H White Blood Count 5.2 Red Blood Count 2.52 L Hemoglobin 8.2 L Hematocrit 26.4 L Mean Corpuscular Volume 104.8 H Mean Corpuscular Hemoglobin 32.5 Mean Corpuscular Hemoglobin Concent 31.1 L Red Cell Distribution Width 14.6 H Platelet Count 152 Mean Platelet Volume 10.5 H Neutrophils % 64.6 Lymphocytes % 22.0 Monocytes % 8.4 Eosinophils % 4.4 Basophils % 0.2 Nucleated Red Blood Cells % 0.0 Neutrophils # (Manual) 3.4 Lymphocytes # 1.2 Monocytes # 0.4 Eosinophils # 0.2 Basophils # 0.0 Nucleated Red Blood Cells # 0.0 Lab Scanned Report REFERENCE LAB Prothrombin Time 14.8 H Prothrombin Time Ratio 1.2 INR International Normalized Ratio 1.16 Activated Partial Thromboplast Time 33.9 Medications Medications Current Medications Acetaminophen (Tylenol Tab) 650 mg Q4H PRN PO PAIN AND OR ELEVATED TEMP; Start 12/02/16 at 23:00 Hydralazine HCl (Apresoline) 25 mg Q6H PRN PO SBP >170; Start 12/02/16 at 23:00 Morphine Sulfate (morphine) 2 mg Q4H PRN IV MODERATE PAIN LEVEL 4-6 Last administered on 12/09/16 05:26; Admin Dose 2 MG; Start 12/02/16 at 23:00 Diphenhydramine HCl (Benadryl) 25 mg Q6H PRN IV Itching Last administered on 05:26; Admin Dose 25 MG; Start 12/02/16 at 23:00 Ondansetron HCl (Zofran Inj) 4 mg Q6H PRN IV NAUSEA AND/OR VOMITING Last administered on 12/06/16 18:33; Admin Dose 4 MG; Start 12/03/16 at 19:30 Cinacalcet (Sensipar) 90 mg BID PO Last administered on 12/08/16 21:45; Admin Dose 90 MG; Start 12/03/16 at 21:30 Pantoprazole (Protonix Tab) 40 mg DAILY@06 PO Last administered on 12/09/16 05 :27; Admin Dose 40 MG; Start 12/04/16 at 14:00 Ibuprofen (Motrin) 600 mg Q8 PO Last administered on 12/09/16 05:27; Admin Dose 600 MG; Start 12/05/16 at 22:00 Gabapentin (Neurontin) 100 mg TID PO Last administered on 12/08/16 21:45; Admin Dose 100 MG; Start 12/06/16 at 21:00 Lubiprostone (Amitiza) 24 mcg BID PO Last administered on 12/08/16 21:45; Admin Dose 24 MCG; Start 12/07/16 at 16:30 Mineral Oil (Mineral Oil) 30 ml BID PO Last administered on 12/08/16 21:45; Admin Dose 30 ML; Start 12/07/16 at 21:00; Stop 12/11/16 at 09:00 Metoclopramide HCl (Reglan) 10 mg Q8 IV Last administered on 12/09/16 05:27; Admin Dose 10 MG; Start 12/08/16 at 22:00 Mineral Oil (Fleet Mineral Oil Enema) 133 ml DAILY [place] ; Start 12/09/16 at 09:00 JUANJO TATUM MD Dec 09, 2016 06:54
[2016-12-09 07:46] LABS: BASOPHILS % 0.2 % (0.0-2.0); EOSINOPHILS # 0.3 10^3/ul (0.0-0.5); EOSINOPHILS % 4.7 % (0.0-7.0); HEMATOCRIT 23.9 % (37.0-47.0); HEMOGLOBIN 7.6 g/dl (12.0-16.0); LYMPHOCYTES # 1.3 10^3/ul (0.8-2.9); LYMPHOCYTES % 22.7 % (15.0-51.0); MEAN CORPUSCULAR HEMOGLOBIN 33.3 pg (29.0-33.0); MEAN CORPUSCULAR HGB CONC 31.8 g/dl (32.0-37.0); MEAN CORPUSCULAR VOLUME 104.8 fl (82.0-101.0); MEAN PLATELET VOLUME 10.4 fl (7.4-10.4); MONOCYTE # 0.5 10^3/ul (0.3-0.9); MONOCYTES % 9.1 % (0.0-11.0); NEUTROPHILS % 62.9 % (39.0-77.0); PLATELET COUNT 147 10^3/UL (140-415); RED BLOOD COUNT 2.28 10^6/ul (4.20-5.40); RED CELL DISTRIBUTION WIDTH 14.6 % (11.5-14.5); WHITE BLOOD COUNT 5.5 10^3/ul (4.8-10.8)
[2016-12-09 07:54] LABS: CALCIUM 8.4 mg/dl (8.4-10.2); CREATININE 8.91 mg/dl (0.44-1.00); POTASSIUM 5.7 mmol/L (3.5-5.1)
[2016-12-09] MEDS: MINERAL OIL 30ML CUP PO SCH ×2 (08:41→21:19)
[2016-12-09] MEDS: SEVELAMER 800 MG TAB PO SCH ×3 (08:42→18:39)
[2016-12-09] MEDS: GABAPENTIN 100 MG CAP PO SCH ×3 (08:42→21:19)
[2016-12-09] MEDS: LUBIPROSTONE 24 MCG CAP PO SCH ×2 (08:42→21:20)
[2016-12-09] MEDS: CINACALCET 30 MG TAB PO SCH ×2 (08:42→21:19)
[2016-12-09] MEDS: MINERAL OIL 133 ML ENEMA PR SCH (09:00)
[2016-12-09] MEDS ORDERED: LIDOCAINE 1% (MDV) 20 ML INJ ONE (11:41)
--- NOTE | 2016-12-09 13:35 | RADRPT ---
PROCEDURE: Ultrasound guided thyroid biopsy CLINICAL INDICATION: Left thyroid nodule TECHNIQUE: Multiple sonographic images of the thyroid were obtained utilizing a linear array trans ducer with grayscale and color-flow and a Doppler imaging. The images were reviewed on a high-resolu [employer] PACS workstation. The patient was placed in the supine position and the neck was hyperextended. A site in the patient 's left neck was selected and marked. 1% lidocaine was utilized for local anesthesia. A 25 gauge spinal needle was advanced into the nodule and 3 FNA aspirates were obtained. A 20 gauge core biopsy was also obtained. The samples were evaluated by pathology and deemed to be of diagnostic quality. A sterile dressing was applied. The patient tolerated the procedure well. COMPARISON: Thyroid ultrasound from 12/02/2016 FINDINGS: 2.2 cm well-circumscribed hypoechoic left thyroid nodule with multiple foci of microcalcifications. IMPRESSION: Uncomplicated ultrasound-guided fine needle aspirations and core biopsy of a 2.2 cm left thyroid les ion, as above. RPTAT: EE Physician Elsi Date Time Electronically viewed and signed by Physician Elsi on 12/09/2016 13:35 /
--- NOTE | 2016-12-09 14:05 | PN ---
Date/Time of Note Date/Time of Note DATE: 12/09/16 TIME: 13:50 Assessment/Plan VTE Prophylaxis VTE Prophylaxis Intervention: ambulation Lines/Catheters [facility] Saline Lock Assessment/Plan Assessment/Plan 31-year-old female with the following problem #1 1. End-stage renal disease with 3ry hyperparathyroidism 2. Left thyroid enlargement with possible left thyroid nodule question of a status of the function of the thyroid gland. 3. Revision of the enlarged calcified parathyroid glands over the esophagus mainly on the left lateral wall of the esophagus causing dysphagia. 4. 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 5. Gastroparesis secondary to hypercalcemia and hyperparathyroidism. Plan: Medical treatment for the above-mentioned problem and possibly surgical removal of the enlarged and compressive parathyroid gland S. Will make a consultation with Dr. Otoniel ALONZO who is interested in parathyroid glands surgery see if he recommends that he like to proceed with procedure. Though appears that removal of the enlarged parathyroid glands in this patient is very risky due to venous hypertension in the head and neck area. Subjective 24 Hr Interval Summary Free Text/Dictation Complains of new pain in the neck on the left side following biopsy of the thyroid nodule today morning. all the previous complaints as stated the same. Had 1 small bowel movement last night and one today. Still complaining of epigastric pain. Still complaining of inability to swallow solid food because of the pain on the left side of the neck. Exam/Review of Systems Vital Signs Vitals Vital Signs Date Time Temp Pulse Resp B/P Pulse Ox O2 Delivery O2 Flow Rate FiO2 12/09/16 12:42 97.5 96 17 94/45 96 12/06/16 16:00 Room Air Intake and Output 12/08/16 12/08/16 12/09/16 15:00 23:00 07:00 Intake Total 800 ml 400 ml Balance 800 ml 400 ml Exam Alert awake oriented 3 laying down in the bed semi-ureña position. Complaining of left neck pain following biopsy of the thyroid gland today. Denies shortness of breath. WBC 5000 hemoglobin 7.6. For some reason today calcium is dropped to 8.5. BUN/ creatinine elevated as before. Abdomen flat but tender in epigastric area upon pressure. Results Result Diagram: 12/09/16 0716 12/09/16 0719 Results 24 hrs Laboratory Tests Test 12/08/16 18:24 12/09/16 07:16 12/09/16 07:19 Prothrombin Time 14.8 H Prothrombin Time Ratio 1.2 INR International Normalized Ratio 1.16 Activated Partial Thromboplast Time 33.9 White Blood Count 5.5 Red Blood Count 2.28 L Hemoglobin 7.6 L Hematocrit 23.9 L Mean Corpuscular Volume 104.8 H Mean Corpuscular Hemoglobin 33.3 H Mean Corpuscular Hemoglobin Concent 31.8 L Red Cell Distribution Width 14.6 H Platelet Count 147 Mean Platelet Volume 10.4 Neutrophils % 62.9 Lymphocytes % 22.7 Monocytes % 9.1 Eosinophils % 4.7 Basophils % 0.2 Nucleated Red Blood Cells % 0.0 Neutrophils # (Manual) 3.5 Lymphocytes # 1.3 Monocytes # 0.5 Eosinophils # 0.3 Basophils # 0.0 Nucleated Red Blood Cells # 0.0 Sodium Level 139 Potassium Level 5.7 H Chloride Level 92 L Carbon Dioxide Level 26 Anion Gap 27 H Blood Urea Nitrogen 59 H Creatinine 8.91 #H Glucose Level 64 L Calcium Level 8.4 Medications Medications Current Medications Acetaminophen (Tylenol Tab) 650 mg Q4H PRN PO PAIN AND OR ELEVATED TEMP; Start 12/02/16 at 23:00 Hydralazine HCl (Apresoline) 25 mg Q6H PRN PO SBP >170; Start 12/02/16 at 23:00 Morphine Sulfate (morphine) 2 mg Q4H PRN IV MODERATE PAIN LEVEL 4-6 Last administered on 12/09/16 12:45; Admin Dose 2 MG; Start 12/02/16 at 23:00 Diphenhydramine HCl (Benadryl) 25 mg Q6H PRN IV Itching Last administered on 12:47; Admin Dose 25 MG; Start 12/02/16 at 23:00 Ondansetron HCl (Zofran Inj) 4 mg Q6H PRN IV NAUSEA AND/OR VOMITING Last administered on 12/06/16 18:33; Admin Dose 4 MG; Start 12/03/16 at 19:30 Cinacalcet (Sensipar) 90 mg BID PO Last administered on 12/09/16 08:42; Admin Dose 90 MG; Start 12/03/16 at 21:30 Pantoprazole (Protonix Tab) 40 mg DAILY@06 PO Last administered on 12/09/16 05 :27; Admin Dose 40 MG; Start 12/04/16 at 14:00 Ibuprofen (Motrin) 600 mg Q8 PO Last administered on 12/09/16 05:27; Admin Dose 600 MG; Start 12/05/16 at 22:00 Gabapentin (Neurontin) 100 mg TID PO Last administered on 12/09/16 12:46; Admin Dose 100 MG; Start 12/06/16 at 21:00 Lubiprostone (Amitiza) 24 mcg BID PO Last administered on 12/09/16 08:42; Admin Dose 24 MCG; Start 12/07/16 at 16:30 Mineral Oil (Mineral Oil) 30 ml BID PO Last administered on 12/09/16 08:41; Admin Dose 30 ML; Start 12/07/16 at 21:00; Stop 12/11/16 at 09:00 Metoclopramide HCl (Reglan) 10 mg Q8 IV Last administered on 12/09/16 05:27; Admin Dose 10 MG; Start 12/08/16 at 22:00 Mineral Oil (Fleet Mineral Oil Enema) 133 ml DAILY [place] ; Start 12/09/16 at 09:00 TANISHA MALONEY MD Dec 09, 2016 14:05
--- NOTE | 2016-12-09 15:45 | CONS ---
Date/Time of Note Date/Time of Note DATE: 12/09/16 TIME: 15:43 Assessment/Plan Assessment/Plan Additional Assessment/Plan 1. Increased BNP, assess congestive heart failure with secondary renal failure.- no sig sob at thie time - better fluid status now - HD as needed. 2. Hypotension, borderline- well Rx - no sx now 3. Goiter multinodular- s/p BX, surgical team follows 4. End-stage renal disease on hemodialysis- Rx with renal team 5. Hyperkalemia resolved- better - IMPROVED 6. Abdominal pain. Consultation Date/Type/Reason Admit Date/Time Dec 02, 2016 at 17:19 Initial Consult Date 12/04/16 Type of Consultation: Renal Referring Provider: LUANNE WALTER MD 24 HR Interval Summary Free Text/Dictation NO acute events - BP low, but no Sx no CP now' ROS: No fever, no chills, no nausea, no vomiting, no diarrhea/constipation No recent weight changes No chest pain, no PND, no orthopnea No dizziness, blurred vision No thirst, no heat or cold intolerance Exam/Review of Systems Vital Signs Vitals Vital Signs Date Time Temp Pulse Resp B/P Pulse Ox O2 Delivery O2 Flow Rate FiO2 12/09/16 12:42 97.5 96 17 94/45 96 12/06/16 16:00 Room Air Intake and Output 12/08/16 12/08/16 12/09/16 15:00 23:00 07:00 Intake Total 800 ml 400 ml Balance 800 ml 400 ml Exam General: WN/WD/NAD, AOx 3 HEENT: Unicetric/atraumatic/EOMI ( follow commands) NECK: JVD elevated, + thyromegaly Lymph: no lymphadenopathy HEART: regular with no S3, II/ systolic murmur at apex LUNGS: Coarse sounds ABD: soft, NT, ND, +BS : Intact Neuro: non focal SKIN: chronic changes EXT: trace edema Results Result Diagram: 12/09/16 0716 12/09/16 0719 Results 24 hrs Laboratory Tests Test 12/08/16 18:24 12/09/16 07:16 12/09/16 07:19 Prothrombin Time 14.8 H Prothrombin Time Ratio 1.2 INR International Normalized Ratio 1.16 Activated Partial Thromboplast Time 33.9 White Blood Count 5.5 Red Blood Count 2.28 L Hemoglobin 7.6 L Hematocrit 23.9 L Mean Corpuscular Volume 104.8 H Mean Corpuscular Hemoglobin 33.3 H Mean Corpuscular Hemoglobin Concent 31.8 L Red Cell Distribution Width 14.6 H Platelet Count 147 Mean Platelet Volume 10.4 Neutrophils % 62.9 Lymphocytes % 22.7 Monocytes % 9.1 Eosinophils % 4.7 Basophils % 0.2 Nucleated Red Blood Cells % 0.0 Neutrophils # (Manual) 3.5 Lymphocytes # 1.3 Monocytes # 0.5 Eosinophils # 0.3 Basophils # 0.0 Nucleated Red Blood Cells # 0.0 Sodium Level 139 Potassium Level 5.7 H Chloride Level 92 L Carbon Dioxide Level 26 Anion Gap 27 H Blood Urea Nitrogen 59 H Creatinine 8.91 #H Glucose Level 64 L Calcium Level 8.4 Medications Medications Current Medications Acetaminophen (Tylenol Tab) 650 mg Q4H PRN PO PAIN AND OR ELEVATED TEMP; Start 12/02/16 at 23:00 Hydralazine HCl (Apresoline) 25 mg Q6H PRN PO SBP >170; Start 12/02/16 at 23:00 Morphine Sulfate (morphine) 2 mg Q4H PRN IV MODERATE PAIN LEVEL 4-6 Last administered on 12/09/16 12:45; Admin Dose 2 MG; Start 12/02/16 at 23:00 Diphenhydramine HCl (Benadryl) 25 mg Q6H PRN IV Itching Last administered on 12:47; Admin Dose 25 MG; Start 12/02/16 at 23:00 Ondansetron HCl (Zofran Inj) 4 mg Q6H PRN IV NAUSEA AND/OR VOMITING Last administered on 12/06/16 18:33; Admin Dose 4 MG; Start 12/03/16 at 19:30 Cinacalcet (Sensipar) 90 mg BID PO Last administered on 12/09/16 08:42; Admin Dose 90 MG; Start 12/03/16 at 21:30 Pantoprazole (Protonix Tab) 40 mg DAILY@06 PO Last administered on 12/09/16 05 :27; Admin Dose 40 MG; Start 12/04/16 at 14:00 Ibuprofen (Motrin) 600 mg Q8 PO Last administered on 12/09/16 14:32; Admin Dose 600 MG; Start 12/05/16 at 22:00 Gabapentin (Neurontin) 100 mg TID PO Last administered on 12/09/16 12:46; Admin Dose 100 MG; Start 12/06/16 at 21:00 Lubiprostone (Amitiza) 24 mcg BID PO Last administered on 12/09/16 08:42; Admin Dose 24 MCG; Start 12/07/16 at 16:30 Mineral Oil (Mineral Oil) 30 ml BID PO Last administered on 12/09/16 08:41; Admin Dose 30 ML; Start 12/07/16 at 21:00; Stop 12/11/16 at 09:00 Metoclopramide HCl (Reglan) 10 mg Q8 IV Last administered on 12/09/16 14:32; Admin Dose 10 MG; Start 12/08/16 at 22:00 Mineral Oil (Fleet Mineral Oil Enema) 133 ml DAILY [place] ; Start 12/09/16 at 09:00 YUMIKO HO MD Dec 09, 2016 15:44
--- NOTE | 2016-12-09 17:06 | PN ---
Date/Time of Note Date/Time of Note DATE: 12/09/16 TIME: 17:03 Assessment/Plan VTE Prophylaxis VTE Prophylaxis Intervention: SCD's Lines/Catheters IV Catheter Type (from [facility]): Saline Lock Assessment/Plan Chief Complaint/Hosp Course Patient is status post thyroid biopsy, complains of pain, patient was anemia will transfuse 1 unit of packed red blood cells with hemodialysis today, Assessment/Plan -Hyperkalemia, status post Kayexalate, continue to monitor electrolytes, pending hemodialysis today. -Dysphagia and odynophagia. Dr. Smallwood is following in gastroenterology consultation. Patient status post recent EGD at [facility]. -Thyrotoxicosis with multinodular goiter, Dr. Damon is following in endocrinology consultation. Dr. Red is following in general surgery consultation. -History of hyperparathyroidism -Hemodialysis dependent end-stage renal disease, Dr. Silverio following in nephrology , continue hemodialysis per nephrology. -Central stenosis, Dr. Francisco is following in vascular surgery consultation. Status post left upper extremity fistulogram. Further recommendations based on clinical course. Plan of care discussed with Dr. Turner Problems: Exam/Review of Systems Vital Signs Vitals Vital Signs Date Time Temp Pulse Resp B/P Pulse Ox O2 Delivery O2 Flow Rate FiO2 12/09/16 16:48 98.3 71 17 122/75 100 12/06/16 16:00 Room Air Intake and Output 12/08/16 12/08/16 12/09/16 15:00 23:00 07:00 Intake Total 800 ml 400 ml Balance 800 ml 400 ml Exam Constitutional: alert, oriented Neck: other (Tenderness), thyromegaly Cardiovascular: nl pulses Gastrointestinal: non-tender, soft Extremities: normal pulses, other (Left upper extremity AV fistula) 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: nl mental status Results Result Diagram: 12/09/16 0716 12/09/16 0719 Results 24 hrs Laboratory Tests Test 12/08/16 18:24 12/09/16 07:16 12/09/16 07:19 Prothrombin Time 14.8 H Prothrombin Time Ratio 1.2 INR International Normalized Ratio 1.16 Activated Partial Thromboplast Time 33.9 White Blood Count 5.5 Red Blood Count 2.28 L Hemoglobin 7.6 L Hematocrit 23.9 L Mean Corpuscular Volume 104.8 H Mean Corpuscular Hemoglobin 33.3 H Mean Corpuscular Hemoglobin Concent 31.8 L Red Cell Distribution Width 14.6 H Platelet Count 147 Mean Platelet Volume 10.4 Neutrophils % 62.9 Lymphocytes % 22.7 Monocytes % 9.1 Eosinophils % 4.7 Basophils % 0.2 Nucleated Red Blood Cells % 0.0 Neutrophils # (Manual) 3.5 Lymphocytes # 1.3 Monocytes # 0.5 Eosinophils # 0.3 Basophils # 0.0 Nucleated Red Blood Cells # 0.0 Sodium Level 139 Potassium Level 5.7 H Chloride Level 92 L Carbon Dioxide Level 26 Anion Gap 27 H Blood Urea Nitrogen 59 H Creatinine 8.91 #H Glucose Level 64 L Calcium Level 8.4 Medications Medications Current Medications Acetaminophen (Tylenol Tab) 650 mg Q4H PRN PO PAIN AND OR ELEVATED TEMP; Start 12/02/16 at 23:00 Hydralazine HCl (Apresoline) 25 mg Q6H PRN PO SBP >170; Start 12/02/16 at 23:00 Morphine Sulfate (morphine) 2 mg Q4H PRN IV MODERATE PAIN LEVEL 4-6 Last administered on 12/09/16 12:45; Admin Dose 2 MG; Start 12/02/16 at 23:00 Diphenhydramine HCl (Benadryl) 25 mg Q6H PRN IV Itching Last administered on 12:47; Admin Dose 25 MG; Start 12/02/16 at 23:00 Ondansetron HCl (Zofran Inj) 4 mg Q6H PRN IV NAUSEA AND/OR VOMITING Last administered on 12/06/16 18:33; Admin Dose 4 MG; Start 12/03/16 at 19:30 Cinacalcet (Sensipar) 90 mg BID PO Last administered on 12/09/16 08:42; Admin Dose 90 MG; Start 12/03/16 at 21:30 Pantoprazole (Protonix Tab) 40 mg DAILY@06 PO Last administered on 12/09/16 05 :27; Admin Dose 40 MG; Start 12/04/16 at 14:00 Ibuprofen (Motrin) 600 mg Q8 PO Last administered on 12/09/16 14:32; Admin Dose 600 MG; Start 12/05/16 at 22:00 Gabapentin (Neurontin) 100 mg TID PO Last administered on 12/09/16 12:46; Admin Dose 100 MG; Start 12/06/16 at 21:00 Lubiprostone (Amitiza) 24 mcg BID PO Last administered on 12/09/16 08:42; Admin Dose 24 MCG; Start 12/07/16 at 16:30 Mineral Oil (Mineral Oil) 30 ml BID PO Last administered on 12/09/16 08:41; Admin Dose 30 ML; Start 12/07/16 at 21:00; Stop 12/11/16 at 09:00 Metoclopramide HCl (Reglan) 10 mg Q8 IV Last administered on 12/09/16 14:32; Admin Dose 10 MG; Start 12/08/16 at 22:00 Mineral Oil (Fleet Mineral Oil Enema) 133 ml DAILY [place] ; Start 12/09/16 at 09:00 ERICK ROBERTSON Dec 09, 2016 17:06
--- NOTE | 2016-12-09 19:59 | CONS ---
Date/Time of Note Date/Time of Note DATE: 12/09/16 TIME: 19:57 Assessment/Plan Assessment/Plan Chief Complaint/Hosp Course 31 year old female with history of ESRD,admitted for abdominal pain,dysphagia. no nausea,vomiting or gi bleeding.No chest pain or SOB. Problems: Additional Assessment/Plan Assessment/Plan Additional Assessment/Plan 1. dysphagia,mostly secondary to multinodular goiter 2. Hypotension, borderline. 3. Goiter multinodular. 4. End-stage renal disease on hemodialysis. 5. Hyperkalemia resolved. 6. Abdominal pain. 7. increased alkaline phosphate secondary to hyperparathyroidism 8. Gastroparesis 9. Severe constipation 10. Status post thyroid gland biopsy Plan parathyroidectomy as per surgery Bentyl PPI continue present care. Caridad Lopez Patient had a EGD a few weeks ago at [facility] upper GI tract did not show any stricture or ulcer. She had to my knowledge varicose vein only in the proximal part of the esophagus not in the mid or distal part Consultation Date/Type/Reason Admit Date/Time Dec 02, 2016 at 17:19 Initial Consult Date 12/04/16 Type of Consultation: Renal Referring Provider: LUANNE WALTER MD 24 HR Interval Summary Free Text/Dictation Patient feels better, dysphagia is improved. Pain on the left side of the neck secondary to biopsy of the thyroid gland. Exam/Review of Systems Vital Signs Vitals Vital Signs Date Time Temp Pulse Resp B/P Pulse Ox O2 Delivery O2 Flow Rate FiO2 12/09/16 19:26 98.0 102 18 111/57 99 12/06/16 16:00 Room Air Intake and Output 12/08/16 12/08/16 12/09/16 15:00 23:00 07:00 Intake Total 800 ml 400 ml Balance 800 ml 400 ml Exam Constitutional: alert, oriented, well developed Psych: nl mood/affect, no complaints Head: atraumatic, normocephalic Eyes: EOMI, PERRL, nl conjunctiva, nl lids, nl sclera ENMT: nl external ears & nose, nl lips & teeth, nl nasal mucosa & septum Neck: non-tender, supple Respiratory: clear to auscultation, normal air movement Cardiovascular: nl pulses, regular rate and rhythm Gastrointestinal: nl liver, spleen, non-tender, soft Musculoskeletal: nl extremities to inspection, nl gait and stance Extremities: normal pulses 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: REPORTS DEVELOPER II-XII intact, nl mental status, nl speech, nl strength Skin: nl turgor, No rash or lesions Lymph: nl lymph nodes Results Result Diagram: 12/09/16 0716 12/09/16 0719 Results 24 hrs Laboratory Tests Test 12/09/16 07:16 12/09/16 07:19 White Blood Count 5.5 Red Blood Count 2.28 L Hemoglobin 7.6 L Hematocrit 23.9 L Mean Corpuscular Volume 104.8 H Mean Corpuscular Hemoglobin 33.3 H Mean Corpuscular Hemoglobin Concent 31.8 L Red Cell Distribution Width 14.6 H Platelet Count 147 Mean Platelet Volume 10.4 Neutrophils % 62.9 Lymphocytes % 22.7 Monocytes % 9.1 Eosinophils % 4.7 Basophils % 0.2 Nucleated Red Blood Cells % 0.0 Neutrophils # (Manual) 3.5 Lymphocytes # 1.3 Monocytes # 0.5 Eosinophils # 0.3 Basophils # 0.0 Nucleated Red Blood Cells # 0.0 Sodium Level 139 Potassium Level 5.7 H Chloride Level 92 L Carbon Dioxide Level 26 Anion Gap 27 H Blood Urea Nitrogen 59 H Creatinine 8.91 #H Glucose Level 64 L Calcium Level 8.4 Medications Medications Current Medications Acetaminophen (Tylenol Tab) 650 mg Q4H PRN PO PAIN AND OR ELEVATED TEMP; Start 12/02/16 at 23:00 Hydralazine HCl (Apresoline) 25 mg Q6H PRN PO SBP >170; Start 12/02/16 at 23:00 Morphine Sulfate (morphine) 2 mg Q4H PRN IV MODERATE PAIN LEVEL 4-6 Last administered on 12/09/16 18:52; Admin Dose 2 MG; Start 12/02/16 at 23:00 Diphenhydramine HCl (Benadryl) 25 mg Q6H PRN IV Itching Last administered on 18:52; Admin Dose 25 MG; Start 12/02/16 at 23:00 Ondansetron HCl (Zofran Inj) 4 mg Q6H PRN IV NAUSEA AND/OR VOMITING Last administered on 12/06/16 18:33; Admin Dose 4 MG; Start 12/03/16 at 19:30 Cinacalcet (Sensipar) 90 mg BID PO Last administered on 12/09/16 08:42; Admin Dose 90 MG; Start 12/03/16 at 21:30 Pantoprazole (Protonix Tab) 40 mg DAILY@06 PO Last administered on 12/09/16 05 :27; Admin Dose 40 MG; Start 12/04/16 at 14:00 Ibuprofen (Motrin) 600 mg Q8 PO Last administered on 12/09/16 14:32; Admin Dose 600 MG; Start 12/05/16 at 22:00 Gabapentin (Neurontin) 100 mg TID PO Last administered on 12/09/16 12:46; Admin Dose 100 MG; Start 12/06/16 at 21:00 Lubiprostone (Amitiza) 24 mcg BID PO Last administered on 12/09/16 08:42; Admin Dose 24 MCG; Start 12/07/16 at 16:30 Mineral Oil (Mineral Oil) 30 ml BID PO Last administered on 12/09/16 08:41; Admin Dose 30 ML; Start 12/07/16 at 21:00; Stop 12/11/16 at 09:00 Metoclopramide HCl (Reglan) 10 mg Q8 IV Last administered on 12/09/16 14:32; Admin Dose 10 MG; Start 12/08/16 at 22:00 Mineral Oil (Fleet Mineral Oil Enema) 133 ml DAILY [place] ; Start 12/09/16 at 09:00 FREDERIC GARCIA MD Dec 09, 2016 19:59
[2016-12-10] VITALS (12 sets, daily range): BP systolic 86–103; BP diastolic 46–55; PULSE 90–106; RESP 16–20
[2016-12-10] MEDS: morphine 2 MG INJ IV PRN ×4 (01:34→20:14)
[2016-12-10] MEDS: DIPHENHYDRAMINE 50 MG INJ IV PRN ×4 (01:34→20:17)
[2016-12-10] MEDS: PANTOPRAZOLE (EC) 40 MG TAB PO SCH (06:31)
[2016-12-10] MEDS: IBUPROFEN 600 MG TAB PO SCH ×3 (06:31→20:16)
[2016-12-10] MEDS: METOCLOPRAMIDE 10 MG INJ IV SCH ×3 (06:31→20:18)
[2016-12-10] MEDS: MINERAL OIL 30ML CUP PO SCH ×2 (08:21→20:16)
[2016-12-10] MEDS: GABAPENTIN 100 MG CAP PO SCH ×3 (08:21→20:16)
[2016-12-10] MEDS: LUBIPROSTONE 24 MCG CAP PO SCH ×2 (08:21→20:19)
[2016-12-10] MEDS: CINACALCET 30 MG TAB PO SCH ×2 (08:21→20:15)
[2016-12-10] MEDS: SEVELAMER 800 MG TAB PO SCH ×3 (08:22→18:35)
[2016-12-10 08:24] LABS: BASOPHILS % 0.2 % (0.0-2.0); EOSINOPHILS # 0.2 10^3/ul (0.0-0.5); EOSINOPHILS % 4.1 % (0.0-7.0); HEMOGLOBIN 8.7 g/dl (12.0-16.0); LYMPHOCYTES # 0.9 10^3/ul (0.8-2.9); LYMPHOCYTES % 19.3 % (15.0-51.0); MEAN CORPUSCULAR HEMOGLOBIN 31.4 pg (29.0-33.0); MEAN CORPUSCULAR HGB CONC 32.2 g/dl (32.0-37.0); MEAN CORPUSCULAR VOLUME 97.5 fl (82.0-101.0); MEAN PLATELET VOLUME 10.9 fl (7.4-10.4); MONOCYTE # 0.4 10^3/ul (0.3-0.9); MONOCYTES % 8.2 % (0.0-11.0); NEUTROPHILS % 67.8 % (39.0-77.0); PLATELET COUNT 170 10^3/UL (140-415); RED BLOOD COUNT 2.77 10^6/ul (4.20-5.40); RED CELL DISTRIBUTION WIDTH 19.2 % (11.5-14.5); WHITE BLOOD COUNT 4.9 10^3/ul (4.8-10.8)
[2016-12-10] MEDS: MINERAL OIL 133 ML ENEMA PR SCH (08:28)
[2016-12-10 08:53] LABS: CALCIUM 9.6 mg/dl (8.4-10.2); CREATININE 5.26 mg/dl (0.44-1.00); POTASSIUM 5.2 mmol/L (3.5-5.1)
--- NOTE | 2016-12-10 10:16 | CONS ---
Date/Time of Note Date/Time of Note DATE: 12/10/16 TIME: 10:14 Assessment/Plan Assessment/Plan Additional Assessment/Plan 1. CHF - diast HF, acute on chronic - better fluid status now - HD as needed. 2. Hypotension, borderline- well Rx - no sx now - STABLe, no symptoms 3. Goiter multinodular- s/p BX, surgical team follows - posat op 4. End-stage renal disease on hemodialysis- Rx with renal team 5. Hyperkalemia resolved- better - IMPROVED 6. Abdominal pain- better Consultation Date/Type/Reason Admit Date/Time Dec 02, 2016 at 17:19 Initial Consult Date 12/04/16 Type of Consultation: Renal Referring Provider: LUANNE WALTER MD 24 HR Interval Summary Free Text/Dictation NO acute e vents. Off tele - no CP, no palpitations. ROS: No fever, no chills, no nausea, no vomiting, no diarrhea/constipation No recent weight changes No chest pain, no PND, no orthopnea - NO SOB No dizziness, blurred vision No thirst, no heat or cold intolerance Exam/Review of Systems Vital Signs Vitals Vital Signs Date Time Temp Pulse Resp B/P Pulse Ox O2 Delivery O2 Flow Rate FiO2 12/10/16 08:06 98.1 95 19 88/50 98 12/06/16 16:00 Room Air Intake and Output 12/09/16 12/09/16 12/10/16 15:00 23:00 07:00 Intake Total 1000 ml 240 ml Output Total 3300 ml Balance -2300 ml 240 ml Exam General: WN/WD/NAD, AOx 3 HEENT: Unicetric/atraumatic/EOMI (follow commands) NECK: JVD elevated, no thyromegaly, post-op Lymph: no lymphadenopathy HEART: regular with no S3, I/ systolic murmur at apex LUNGS: Coarse sounds ABD: soft, NT, ND, +BS : Intact Neuro: non focal SKIN: chronic changes EXT: trace edema Results Result Diagram: 12/10/16 0647 12/10/16 0647 Results 24 hrs Laboratory Tests Test 12/10/16 05:24 12/10/16 06:47 Lab Scanned Report BLOOD TRANSFUSION White Blood Count 4.9 Red Blood Count 2.77 #L Hemoglobin 8.7 L Hematocrit 27.0 L Mean Corpuscular Volume 97.5 Mean Corpuscular Hemoglobin 31.4 Mean Corpuscular Hemoglobin Concent 32.2 Red Cell Distribution Width 19.2 #H Platelet Count 170 Mean Platelet Volume 10.9 H Neutrophils % 67.8 Lymphocytes % 19.3 Monocytes % 8.2 Eosinophils % 4.1 Basophils % 0.2 Nucleated Red Blood Cells % 0.0 Neutrophils # (Manual) 3 Lymphocytes # 0.9 Monocytes # 0.4 Eosinophils # 0.2 Basophils # 0.0 Nucleated Red Blood Cells # 0.0 Sodium Level 133 L Potassium Level 5.2 H Chloride Level 91 L Carbon Dioxide Level 29 Anion Gap 18 #H Blood Urea Nitrogen 40 #H Creatinine 5.26 #H Glucose Level 59 L Calcium Level 9.6 Medications Medications Current Medications Acetaminophen (Tylenol Tab) 650 mg Q4H PRN PO PAIN AND OR ELEVATED TEMP; Start 12/02/16 at 23:00 Hydralazine HCl (Apresoline) 25 mg Q6H PRN PO SBP >170; Start 12/02/16 at 23:00 Morphine Sulfate (morphine) 2 mg Q4H PRN IV MODERATE PAIN LEVEL 4-6 Last administered on 12/10/16 08:21; Admin Dose 2 MG; Start 12/02/16 at 23:00 Diphenhydramine HCl (Benadryl) 25 mg Q6H PRN IV Itching Last administered on 08:25; Admin Dose 25 MG; Start 12/02/16 at 23:00 Ondansetron HCl (Zofran Inj) 4 mg Q6H PRN IV NAUSEA AND/OR VOMITING Last administered on 12/06/16 18:33; Admin Dose 4 MG; Start 12/03/16 at 19:30 Cinacalcet (Sensipar) 90 mg BID PO Last administered on 12/10/16 08:21; Admin Dose 90 MG; Start 12/03/16 at 21:30 Pantoprazole (Protonix Tab) 40 mg DAILY@06 PO Last administered on 12/10/16 06 :31; Admin Dose 40 MG; Start 12/04/16 at 14:00 Ibuprofen (Motrin) 600 mg Q8 PO Last administered on 12/10/16 06:31; Admin Dose 600 MG; Start 12/05/16 at 22:00 Gabapentin (Neurontin) 100 mg TID PO Last administered on 12/10/16 08:21; Admin Dose 100 MG; Start 12/06/16 at 21:00 Lubiprostone (Amitiza) 24 mcg BID PO Last administered on 12/10/16 08:21; Admin Dose 24 MCG; Start 12/07/16 at 16:30 Mineral Oil (Mineral Oil) 30 ml BID PO Last administered on 12/10/16 08:21; Admin Dose 30 ML; Start 12/07/16 at 21:00; Stop 12/11/16 at 09:00 Metoclopramide HCl (Reglan) 10 mg Q8 IV Last administered on 12/10/16 06:31; Admin Dose 10 MG; Start 12/08/16 at 22:00 Mineral Oil (Fleet Mineral Oil Enema) 133 ml DAILY [place] ; Start 12/09/16 at 09:00 YUMIKO HO MD Dec 10, 2016 10:16
--- NOTE | 2016-12-10 11:13 | PN ---
Date/Time of Note Date/Time of Note DATE: 12/10/16 TIME: 11:10 Assessment/Plan VTE Prophylaxis VTE Prophylaxis Intervention: other Lines/Catheters IV C[facility] Type (from [facility] Saline Lock Assessment/Plan Assessment/Plan -Hyperkalemia, status post Kayexalate, continue to monitor electrolytes, hemodialysis yesterday -Dysphagia and odynophagia. Dr. Smallwood is following in gastroenterology consultation. Patient status post recent EGD at [facility]. -Thyrotoxicosis with multinodular goiter, Dr. Damon is following in endocrinology consultation. Dr. Red is following in general surgery consultation. -History of hyperparathyroidism -Hemodialysis dependent end-stage renal disease, Dr. Silverio following in nephrology , continue hemodialysis per nephrology. -Central stenosis, Dr. Francisco is following in vascular surgery consultation. Status post left upper extremity fistulogram. Further recommendations based on clinical course. Plan of care discussed with Dr. Turner Subjective 24 Hr Interval Summary Free Text/Dictation left neck pain little better today, status post thyroid biopsy, sp 1 unit of packed red blood cells transfusion with hemodialysis yesterday. dw staff Respiratory: no complaints Cardiovascular: no complaints Gastrointestinal: no complaints Genitourinary: no complaints Exam/Review of Systems Vital Signs Vitals Vital Signs Date Time Temp Pulse Resp B/P Pulse Ox O2 Delivery O2 Flow Rate FiO2 12/10/16 08:06 98.1 95 19 88/50 98 12/06/16 16:00 Room Air Intake and Output 12/09/16 12/09/16 12/10/16 15:00 23:00 07:00 Intake Total 1000 ml 240 ml Output Total 3300 ml Balance -2300 ml 240 ml Exam Constitutional: alert, oriented, well developed Respiratory: clear to auscultation, normal air movement Cardiovascular: nl pulses, regular rate and rhythm Gastrointestinal: non-tender, soft Musculoskeletal: nl extremities to inspection Extremities: normal pulses 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: nl mental status, nl speech Results Result Diagram: 12/10/16 0647 12/10/16 0647 Results 24 hrs Laboratory Tests Test 12/10/16 05:24 12/10/16 06:47 Lab Scanned Report BLOOD TRANSFUSION White Blood Count 4.9 Red Blood Count 2.77 #L Hemoglobin 8.7 L Hematocrit 27.0 L Mean Corpuscular Volume 97.5 Mean Corpuscular Hemoglobin 31.4 Mean Corpuscular Hemoglobin Concent 32.2 Red Cell Distribution Width 19.2 #H Platelet Count 170 Mean Platelet Volume 10.9 H Neutrophils % 67.8 Lymphocytes % 19.3 Monocytes % 8.2 Eosinophils % 4.1 Basophils % 0.2 Nucleated Red Blood Cells % 0.0 Neutrophils # (Manual) 3 Lymphocytes # 0.9 Monocytes # 0.4 Eosinophils # 0.2 Basophils # 0.0 Nucleated Red Blood Cells # 0.0 Sodium Level 133 L Potassium Level 5.2 H Chloride Level 91 L Carbon Dioxide Level 29 Anion Gap 18 #H Blood Urea Nitrogen 40 #H Creatinine 5.26 #H Glucose Level 59 L Calcium Level 9.6 Medications Medications Current Medications Acetaminophen (Tylenol Tab) 650 mg Q4H PRN PO PAIN AND OR ELEVATED TEMP; Start 12/02/16 at 23:00 Hydralazine HCl (Apresoline) 25 mg Q6H PRN PO SBP >170; Start 12/02/16 at 23:00 Morphine Sulfate (morphine) 2 mg Q4H PRN IV MODERATE PAIN LEVEL 4-6 Last administered on 12/10/16 08:21; Admin Dose 2 MG; Start 12/02/16 at 23:00 Diphenhydramine HCl (Benadryl) 25 mg Q6H PRN IV Itching Last administered on 08:25; Admin Dose 25 MG; Start 12/02/16 at 23:00 Ondansetron HCl (Zofran Inj) 4 mg Q6H PRN IV NAUSEA AND/OR VOMITING Last administered on 12/06/16 18:33; Admin Dose 4 MG; Start 12/03/16 at 19:30 Cinacalcet (Sensipar) 90 mg BID PO Last administered on 12/10/16 08:21; Admin Dose 90 MG; Start 12/03/16 at 21:30 Pantoprazole (Protonix Tab) 40 mg DAILY@06 PO Last administered on 12/10/16 06 :31; Admin Dose 40 MG; Start 12/04/16 at 14:00 Ibuprofen (Motrin) 600 mg Q8 PO Last administered on 12/10/16 06:31; Admin Dose 600 MG; Start 12/05/16 at 22:00 Gabapentin (Neurontin) 100 mg TID PO Last administered on 12/10/16 08:21; Admin Dose 100 MG; Start 12/06/16 at 21:00 Lubiprostone (Amitiza) 24 mcg BID PO Last administered on 12/10/16 08:21; Admin Dose 24 MCG; Start 12/07/16 at 16:30 Mineral Oil (Mineral Oil) 30 ml BID PO Last administered on 12/10/16 08:21; Admin Dose 30 ML; Start 12/07/16 at 21:00; Stop 12/11/16 at 09:00 Mineral Oil (Fleet Mineral Oil Enema) 133 ml DAILY [place] ; Start 12/09/16 at 09:00 Metoclopramide HCl (Reglan) 5 mg Q8 IV ; Start 12/10/16 at 14:00 EDILMA CASIANO Dec 10, 2016 11:13
--- NOTE | 2016-12-10 15:16 | PN ---
Date/Time of Note Date/Time of Note DATE: 12/10/16 TIME: 15:12 Assessment/Plan Lines/Catheters IV Catheter Type (from [facility] [place]): Saline Lock Assessment/Plan Chief Complaint/Hosp Course -End-stage renal disease and essential stenosis: It seems that the patient has a longstanding history of end-stage renal disease with multiple chest wall catheters in the past. Our concern upon evaluation of the patient, it seems the patient has significant superficial veins on her chest, left neck, and her abdominal quadrant, which can suggest possible significant central stenosis. -S/P LUE Fistulogram demonstrated significant central stenosis/occlusion of the SVC with a prominent azygous vein. Patient did not have significant neck or IJ reflux during her venogram -Optimize vascular status (blood pressure meds, diet, nutrition, exercise, sugar control). -Discussed findings, plan and management with the patient with a certified buckle wire inserter and she understands. -Thank you for allowing us to partake in the care of your patient. Please call with any questions. Problems: Subjective 24 Hr Interval Summary no new vascular events overnight Exam/Review of Systems Vital Signs Vitals Vital Signs Date Time Temp Pulse Resp B/P Pulse Ox O2 Delivery O2 Flow Rate FiO2 12/10/16 12:03 98 12/10/16 11:36 98.2 18 86/51 98 12/06/16 16:00 Room Air Intake and Output 12/09/16 12/09/16 12/10/16 15:00 23:00 07:00 Intake Total 1000 ml 240 ml Output Total 3300 ml Balance -2300 ml 240 ml Exam Free Text/Dictation GENERAL: Alert and oriented times 3. NECK: Tender mass palpated in the midline. Large superficial veins identified mainly on the left side. No carotid bruit. HEART: S1, S2 present LUNGS: Clear to auscultation bilaterally ABDOMEN: Soft, nontender, nondistended. Bowel sounds positive. EXTREMITIES: Right lower extremity, palpable femoral pulse. Palpable pedal pulse. Motor and sensory intact. Capillary refill 2 to 3 seconds. Left upper extremity, palpable brachial pulse. Motor and sensory intact. Capillary refill 2 seconds. Fistula with bruit and thrill present. Aneurysmal in the proximal aspect near the antecubital region. Results Result Diagram: 12/10/16 0647 12/10/16 0647 MIMI CORONEL MD Dec 10, 2016 15:16
--- NOTE | 2016-12-10 15:39 | PN ---
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 Awaiting input from the E N [employer] apprenticeship consultant Subjective 24 Hr Interval Summary Free Text/Dictation Pain on the left side of the neck is decreased. Has been able to swallow soft diet. Has received 1 unit of packed cells. Still has abdominal pain. Exam/Review of Systems Vital Signs Vitals Vital Signs Date Time Temp Pulse Resp B/P Pulse Ox O2 Delivery O2 Flow Rate FiO2 12/10/16 15:20 98.6 104 18 90/46 98 12/06/16 16:00 Room Air Intake and Output 12/09/16 12/09/16 12/10/16 15:00 23:00 07:00 Intake Total 1000 ml 240 ml Output Total 3300 ml Balance -2300 ml 240 ml Exam Alert awake oriented 3. Vital signs stable. Neck the same. Heart rate 104 recorded. Lungs clear on auscultation. Abdomen is not distended but tender on deep pressure. Especially in the epigastric area. Results Result Diagram: 12/10/16 0647 12/10/16 0647 Results 24 hrs Laboratory Tests Test 12/10/16 05:24 12/10/16 06:47 Lab Scanned Report BLOOD TRANSFUSION White Blood Count 4.9 Red Blood Count 2.77 #L Hemoglobin 8.7 L Hematocrit 27.0 L Mean Corpuscular Volume 97.5 Mean Corpuscular Hemoglobin 31.4 Mean Corpuscular Hemoglobin Concent 32.2 Red Cell Distribution Width 19.2 #H Platelet Count 170 Mean Platelet Volume 10.9 H Neutrophils % 67.8 Lymphocytes % 19.3 Monocytes % 8.2 Eosinophils % 4.1 Basophils % 0.2 Nucleated Red Blood Cells % 0.0 Neutrophils # (Manual) 3 Lymphocytes # 0.9 Monocytes # 0.4 Eosinophils # 0.2 Basophils # 0.0 Nucleated Red Blood Cells # 0.0 Sodium Level 133 L Potassium Level 5.2 H Chloride Level 91 L Carbon Dioxide Level 29 Anion Gap 18 #H Blood Urea Nitrogen 40 #H Creatinine 5.26 #H Glucose Level 59 L Calcium Level 9.6 Medications Medications Current Medications Acetaminophen (Tylenol Tab) 650 mg Q4H PRN PO PAIN AND OR ELEVATED TEMP; Start 12/02/16 at 23:00 Hydralazine HCl (Apresoline) 25 mg Q6H PRN PO SBP >170; Start 12/02/16 at 23:00 Morphine Sulfate (morphine) 2 mg Q4H PRN IV MODERATE PAIN LEVEL 4-6 Last administered on 12/10/16 14:37; Admin Dose 2 MG; Start 12/02/16 at 23:00 Diphenhydramine HCl (Benadryl) 25 mg Q6H PRN IV Itching Last administered on 14:43; Admin Dose 25 MG; Start 12/02/16 at 23:00 Ondansetron HCl (Zofran Inj) 4 mg Q6H PRN IV NAUSEA AND/OR VOMITING Last administered on 12/06/16 18:33; Admin Dose 4 MG; Start 12/03/16 at 19:30 Cinacalcet (Sensipar) 90 mg BID PO Last administered on 12/10/16 08:21; Admin Dose 90 MG; Start 12/03/16 at 21:30 Pantoprazole (Protonix Tab) 40 mg DAILY@06 PO Last administered on 12/10/16 06 :31; Admin Dose 40 MG; Start 12/04/16 at 14:00 Ibuprofen (Motrin) 600 mg Q8 PO Last administered on 12/10/16 14:37; Admin Dose 600 MG; Start 12/05/16 at 22:00 Gabapentin (Neurontin) 100 mg TID PO Last administered on 12/10/16 14:37; Admin Dose 100 MG; Start 12/06/16 at 21:00 Lubiprostone (Amitiza) 24 mcg BID PO Last administered on 12/10/16 08:21; Admin Dose 24 MCG; Start 12/07/16 at 16:30 Mineral Oil (Mineral Oil) 30 ml BID PO Last administered on 12/10/16 08:21; Admin Dose 30 ML; Start 12/07/16 at 21:00; Stop 12/11/16 at 09:00 Mineral Oil (Fleet Mineral Oil Enema) 133 ml DAILY [place] ; Start 12/09/16 at 09:00 Metoclopramide HCl (Reglan) 5 mg Q8 IV Last administered on 12/10/16t 14:37; Admin Dose 5 MG; Start 12/10/16 at 14:00 TANISHA MALONEY MD Dec 10, 2016 15:39
--- NOTE | 2016-12-10 18:37 | CONS ---
Date/Time of Note Date/Time of Note DATE: 12/10/16 TIME: 18:36 Assessment/Plan Assessment/Plan Chief Complaint/Hosp Course 31 year old female with history of ESRD,admitted for abdominal pain,dysphagia. no nausea,vomiting or gi bleeding.No chest pain or SOB. Problems: Additional Assessment/Plan 31 year old female with history of ESRD,admitted for abdominal pain,dysphagia. no nausea,vomiting or gi bleeding.No chest pain or SOB. Problems: Additional Assessment/Plan Assessment/Plan Additional Assessment/Plan 1. dysphagia,mostly secondary to multinodular goiter 2. Hypotension, borderline. 3. Goiter multinodular. 4. End-stage renal disease on hemodialysis. 5. Hyperkalemia resolved. 6. Abdominal pain. 7. increased alkaline phosphate secondary to hyperparathyroidism 8. Gastroparesis 9. Severe constipation 10. Status post thyroid gland biopsy 11. Induration in the cubital fossa Plan parathyroidectomy as per surgery Bentyl PPI continue present care. Caridad Lopez Patient had a EGD a few weeks ago at [facility] upper GI tract did not show any stricture or ulcer. She had to my knowledge varicose vein only in the proximal part of the esophagus not in the mid or distal part Surgeon to evaluate right cubital fossa for possible abscess Consultation Date/Type/Reason Admit Date/Time Dec 02, 2016 at 17:19 Initial Consult Date 12/04/16 Type of Consultation: Renal Referring Provider: LUANNE WALTER MD 24 HR Interval Summary Free Text/Dictation Patient complains of pain in the right elbow, at the site of IV insertion near the cubital fossa. She also complains of chills Exam/Review of Systems Vital Signs Vitals Vital Signs Date Time Temp Pulse Resp B/P Pulse Ox O2 Delivery O2 Flow Rate FiO2 12/10/16 16:04 102 12/10/16 15:20 98.6 18 90/46 98 12/06/16 16:00 Room Air Intake and Output 12/09/16 12/09/16 12/10/16 15:00 23:00 07:00 Intake Total 1000 ml 240 ml Output Total 3300 ml Balance -2300 ml 240 ml Exam Constitutional: alert, oriented, well developed Psych: nl mood/affect, no complaints Head: atraumatic, normocephalic Eyes: EOMI, PERRL, nl conjunctiva, nl lids, nl sclera ENMT: nl external ears & nose, nl lips & teeth, nl nasal mucosa & septum Neck: non-tender, supple Respiratory: clear to auscultation, normal air movement Cardiovascular: nl pulses, regular rate and rhythm Gastrointestinal: nl liver, spleen, non-tender, soft Musculoskeletal: nl extremities to inspection, nl gait and stance Extremities: normal pulses 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: DROSS PULLER II-XII intact, nl mental status, nl speech, nl strength Skin: nl turgor, No rash or lesions Lymph: nl lymph nodes Results Result Diagram: 12/10/16 0647 12/10/16 0647 Results 24 hrs Laboratory Tests Test 12/10/16 05:24 12/10/16 06:47 Lab Scanned Report BLOOD TRANSFUSION White Blood Count 4.9 Red Blood Count 2.77 #L Hemoglobin 8.7 L Hematocrit 27.0 L Mean Corpuscular Volume 97.5 Mean Corpuscular Hemoglobin 31.4 Mean Corpuscular Hemoglobin Concent 32.2 Red Cell Distribution Width 19.2 #H Platelet Count 170 Mean Platelet Volume 10.9 H Neutrophils % 67.8 Lymphocytes % 19.3 Monocytes % 8.2 Eosinophils % 4.1 Basophils % 0.2 Nucleated Red Blood Cells % 0.0 Neutrophils # (Manual) 3 Lymphocytes # 0.9 Monocytes # 0.4 Eosinophils # 0.2 Basophils # 0.0 Nucleated Red Blood Cells # 0.0 Sodium Level 133 L Potassium Level 5.2 H Chloride Level 91 L Carbon Dioxide Level 29 Anion Gap 18 #H Blood Urea Nitrogen 40 #H Creatinine 5.26 #H Glucose Level 59 L Calcium Level 9.6 Medications Medications Current Medications Acetaminophen (Tylenol Tab) 650 mg Q4H PRN PO PAIN AND OR ELEVATED TEMP; Start 12/02/16 at 23:00 Hydralazine HCl (Apresoline) 25 mg Q6H PRN PO SBP >170; Start 12/02/16 at 23:00 Morphine Sulfate (morphine) 2 mg Q4H PRN IV MODERATE PAIN LEVEL 4-6 Last administered on 12/10/16 14:37; Admin Dose 2 MG; Start 12/02/16 at 23:00 Diphenhydramine HCl (Benadryl) 25 mg Q6H PRN IV Itching Last administered on 14:43; Admin Dose 25 MG; Start 12/02/16 at 23:00 Ondansetron HCl (Zofran Inj) 4 mg Q6H PRN IV NAUSEA AND/OR VOMITING Last administered on 12/06/16 18:33; Admin Dose 4 MG; Start 12/03/16 at 19:30 Cinacalcet (Sensipar) 90 mg BID PO Last administered on 12/10/16 08:21; Admin Dose 90 MG; Start 12/03/16 at 21:30 Pantoprazole (Protonix Tab) 40 mg DAILY@06 PO Last administered on 12/10/16 06 :31; Admin Dose 40 MG; Start 12/04/16 at 14:00 Ibuprofen (Motrin) 600 mg Q8 PO Last administered on 12/10/16 14:37; Admin Dose 600 MG; Start 12/05/16 at 22:00 Gabapentin (Neurontin) 100 mg TID PO Last administered on 12/10/16 14:37; Admin Dose 100 MG; Start 12/06/16 at 21:00 Lubiprostone (Amitiza) 24 mcg BID PO Last administered on 12/10/16 08:21; Admin Dose 24 MCG; Start 12/07/16 at 16:30 Mineral Oil (Mineral Oil) 30 ml BID PO Last administered on 12/10/16 08:21; Admin Dose 30 ML; Start 12/07/16 at 21:00; Stop 12/11/16 at 09:00 Mineral Oil (Fleet Mineral Oil Enema) 133 ml DAILY [place] ; Start 12/09/16 at 09:00 Metoclopramide HCl (Reglan) 5 mg Q8 IV Last administered on 12/10/16 14:37; Admin Dose 5 MG; Start 12/10/16 at 14:00 FREDERIC GARCIA MD Dec 10, 2016 18:37
[2016-12-11] VITALS (29 sets, daily range): BP systolic 100–134; BP diastolic 50–75; PULSE 84–113; RESP 14–20
[2016-12-11] MEDS: DIPHENHYDRAMINE 50 MG INJ IV PRN ×4 (02:12→22:27)
[2016-12-11] MEDS: PANTOPRAZOLE (EC) 40 MG TAB PO SCH (05:27)
[2016-12-11] MEDS: IBUPROFEN 600 MG TAB PO SCH ×3 (05:27→22:00)
[2016-12-11] MEDS: METOCLOPRAMIDE 10 MG INJ IV SCH ×3 (05:28→22:30)
[2016-12-11 06:57] LABS: BASOPHILS % 0.6 % (0.0-2.0); EOSINOPHILS # 0.3 10^3/ul (0.0-0.5); HEMATOCRIT 25.1 % (37.0-47.0); HEMOGLOBIN 8.1 g/dl (12.0-16.0); LYMPHOCYTES # 1.1 10^3/ul (0.8-2.9); LYMPHOCYTES % 22.6 % (15.0-51.0); MEAN CORPUSCULAR HEMOGLOBIN 31.2 pg (29.0-33.0); MEAN CORPUSCULAR HGB CONC 32.3 g/dl (32.0-37.0); MEAN CORPUSCULAR VOLUME 96.5 fl (82.0-101.0); MEAN PLATELET VOLUME 10.8 fl (7.4-10.4); MONOCYTE # 0.5 10^3/ul (0.3-0.9); NEUTROPHILS % 59.4 % (39.0-77.0); PLATELET COUNT 153 10^3/UL (140-415); WHITE BLOOD COUNT 4.8 10^3/ul (4.8-10.8)
[2016-12-11 07:42] LABS: CALCIUM 9.6 mg/dl (8.4-10.2); CREATININE 7.36 mg/dl (0.44-1.00)
[2016-12-11 07:45] LABS: POTASSIUM 5.5 mmol/L (3.5-5.1)
[2016-12-11] MEDS: SEVELAMER 800 MG TAB PO SCH ×3 (08:00→18:05)
[2016-12-11] MEDS: MINERAL OIL 133 ML ENEMA PR SCH (09:00)
[2016-12-11] MEDS: CINACALCET 30 MG TAB PO SCH ×2 (09:00→20:54)
[2016-12-11] MEDS: GABAPENTIN 100 MG CAP PO SCH ×3 (09:00→20:54)
[2016-12-11] MEDS: LUBIPROSTONE 24 MCG CAP PO SCH ×2 (09:00→20:54)
[2016-12-11] MEDS: MINERAL OIL 30ML CUP PO SCH (09:00)
--- NOTE | 2016-12-11 11:16 | CONS ---
Date/Time of Note Date/Time of Note DATE: 12/11/16 TIME: 11:14 Assessment/Plan Assessment/Plan Additional Assessment/Plan 1. End-stage kidney disease on hemodialysis. 2. Hyperparathyroidism, secondary, severe, with hypercalcemia and elevated alkaline phosphatase= Renal bone disease 3. Anemia of chronic renal disease. 4. Thyromegaly 5. Dysphagia 6. Hyperkalemia HD ordered for today Planned for Sx today Cont to monitor Volume status, Electrolytes and BP closely Low K/Renal Diet Consultation Date/Type/Reason Admit Date/Time Dec 02, 2016 at 17:19 Initial Consult Date 12/04/16 Type of Consultation: Renal Referring Provider: LUANNE WALTER MD 24 HR Interval Summary Free Text/Dictation No new complaints, NPO for Sx today, Pending HD Constitutional: No requiring O2 Exam/Review of Systems Vital Signs Vitals Vital Signs Date Time Temp Pulse Resp B/P Pulse Ox O2 Delivery O2 Flow Rate FiO2 12/11/16 08:27 84 12/11/16 07:57 98.1 19 106/54 98 Intake and Output 12/10/16 12/10/16 12/11/16 15:00 23:00 07:00 Intake Total 720 ml 120 ml Balance 720 ml 120 ml Exam Constitutional: alert, No distress ENMT: mucosa pink and moist Respiratory: clear to auscultation Cardiovascular: regular rate and rhythm, No edema Gastrointestinal: non-tender, soft 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: LYE BATH OPERATOR II-XII intact, nl mental status, No lethargic Results Result Diagram: 12/11/16 0624 12/11/16 0624 Results 24 hrs Laboratory Tests Test 12/11/16 06:24 White Blood Count 4.8 Red Blood Count 2.60 L Hemoglobin 8.1 L Hematocrit 25.1 L Mean Corpuscular Volume 96.5 Mean Corpuscular Hemoglobin 31.2 Mean Corpuscular Hemoglobin Concent 32.3 Red Cell Distribution Width 19.0 H Platelet Count 153 Mean Platelet Volume 10.8 H Neutrophils % 59.4 Lymphocytes % 22.6 Monocytes % 11.0 Eosinophils % 6.0 Basophils % 0.6 Nucleated Red Blood Cells % 0.0 Neutrophils # (Manual) 3 Lymphocytes # 1.1 Monocytes # 0.5 Eosinophils # 0.3 Basophils # 0.0 Nucleated Red Blood Cells # 0.0 Sodium Level 132 L Potassium Level 5.5 H Chloride Level 91 L Carbon Dioxide Level 26 Anion Gap 21 H Blood Urea Nitrogen 77 #H Creatinine 7.36 #H Glucose Level 67 L Calcium Level 9.6 Serum HCG, Qualitative NEGATIVE Medications Medications Current Medications Acetaminophen (Tylenol Tab) 650 mg Q4H PRN PO PAIN AND OR ELEVATED TEMP; Start 12/02/16 at 23:00 Hydralazine HCl (Apresoline) 25 mg Q6H PRN PO SBP >170; Start 12/02/16 at 23:00 Morphine Sulfate (morphine) 2 mg Q4H PRN IV MODERATE PAIN LEVEL 4-6 Last administered on 12/11/16 00:00; Admin Dose 2 MG; Start 12/02/16 at 23:00 Diphenhydramine HCl (Benadryl) 25 mg Q6H PRN IV Itching Last administered on 08:05; Admin Dose 25 MG; Start 12/02/16 at 23:00 Ondansetron HCl (Zofran Inj) 4 mg Q6H PRN IV NAUSEA AND/OR VOMITING Last administered on 12/06/16 18:33; Admin Dose 4 MG; Start 12/03/16 at 19:30 Cinacalcet (Sensipar) 90 mg BID PO Last administered on 12/10/16 20:15; Admin Dose 90 MG; Start 12/03/16 at 21:30 Pantoprazole (Protonix Tab) 40 mg DAILY@06 PO Last administered on 12/11/16 05 :27; Admin Dose 40 MG; Start 12/04/16 at 14:00 Ibuprofen (Motrin) 600 mg Q8 PO Last administered on 12/11/16 05:27; Admin Dose 600 MG; Start 12/05/16 at 22:00 Gabapentin (Neurontin) 100 mg TID PO Last administered on 12/10/16 20:16; Admin Dose 100 MG; Start 12/06/16 at 21:00 Lubiprostone (Amitiza) 24 mcg BID PO Last administered on 12/10/16 20:19; Admin Dose 24 MCG; Start 12/07/16 at 16:30 Mineral Oil (Fleet Mineral Oil Enema) 133 ml DAILY [place] ; Start 12/09/16 at 09:00 Metoclopramide HCl (Reglan) 5 mg Q8 IV Last administered on 12/11/16 05:28; Admin Dose 5 MG; Start 12/10/16 at 14:00 JUANJO TATUM MD Dec 11, 2016 11:16
[2016-12-11] MEDS: morphine 2 MG INJ IV PRN ×3 (11:36→20:47)
--- NOTE | 2016-12-11 11:38 | CONS ---
Date/Time of Note Date/Time of Note DATE: 12/11/16 TIME: 11:34 Assessment/Plan Assessment/Plan Chief Complaint/Hosp Course Secondary hyperparathyroidism. Mass effect, possibly secondary to large left upper adenoma. Problems: Additional Assessment/Plan Proceed with central neck exploration, parathyroidectomy 3.5. Risk of vocal cord paralysis, pain, bleeding, hypocalcemia all discussed. Case discussed in detail with Nephrology. Consultation Date/Type/Reason Admit Date/Time Dec 02, 2016 at 17:19 Initial Consult Date 12/04/16 Type of Consultation: Otolaryngology Reason for Consultation Hypercalcemia, hyperparathyroidism Referring Provider: LUANNE WALTER MD 24 HR Interval Summary Free Text/Dictation Pain, dysphagia, main concern is hyperparathyroidism with uncontrollable PTH. Consulted for parathryoidectomy. Exam/Review of Systems Vital Signs Vitals Vital Signs Date Time Temp Pulse Resp B/P Pulse Ox O2 Delivery O2 Flow Rate FiO2 12/11/16 08:27 84 12/11/16 07:57 98.1 19 106/54 98 Intake and Output 12/10/16 12/10/16 12/11/16 15:00 23:00 07:00 Intake Total 720 ml 120 ml Balance 720 ml 120 ml Exam Constitutional: alert, oriented, well developed Psych: nl mood/affect, no complaints Head: atraumatic, normocephalic Eyes: EOMI, nl conjunctiva, nl lids ENMT: nl external ears & nose, nl lips & teeth, nl nasal mucosa & septum Neck: non-tender, supple Cardiovascular: nl pulses Gastrointestinal: non-tender, soft Musculoskeletal: nl extremities to inspection Extremities: normal pulses 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: FACULTY ADMINISTRATOR II-XII intact, nl mental status, nl speech, nl strength Skin: nl turgor Lymph: nl lymph nodes Results PROCEDURE: CT scan of the neck without contrast. CLINICAL INDICATION: pain; lump TECHNIQUE: CT scan of the neck was performed. The patient was examined without the use of intravenous iodinated contrast. No reported complications occurred. One or more of the following dose reduction techniques were used: Automated exposure control, Adjustment of the mA and/or kV according to patient size, and/or use of iterative reconstruction technique. DOSE: CTDI = 8 mGy and the DLP = 171 mGy-cm. COMPARISON: None available FINDINGS: Evaluation of the soft tissues and vasculature is limited without contrast. Multiple large nodules are seen posterior to the thyroid gland. There is a posterior left thyroid lobe region nodule measuring 2.0 x 2.0 cm. Additionally partially calcified nodules are seen in the region of the parathyroid glands measuring 14 x 11 mm on the left and 7 x 8 mm on the right. The left lesion has mass effect and indentation on the left lateral wall of the esophagus. Inferior to the thyroid isthmus are additional partially calcified nodules measuring 19 x 12 mm. No evidence of cervical lymphadenopathy. The bilateral parotid and submandibular glands are unremarkable No significant airway narrowing The bilateral prestyloid parapharyngeal spaces and retropharyngeal spaces are unremarkable. Right posterior ethmoid sinus mucosal thickening. Ground-glass changes are visualized to the mandible, maxilla and visualized skull base. There are also patchy sclerotic changes to the cervical vertebrae. IMPRESSION: Multiple large nodules are seen posterior to the thyroid gland. There is a posterior left thyroid lobe region nodule measuring 2.0 x 2.0 cm. Additionally partially calcified nodules are seen in the region of the parathyroid glands measuring 14 x 11 mm on the left and 7 x 8 mm on the right. The left lesion has mass effect and indentation on the left lateral wall of the esophagus. Inferior to the thyroid isthmus are additional partially calcified nodules measuring 19 x 12 mm. No evidence of bulky cervical lymphadenopathy. Ground-glass changes are visualized to the mandible, maxilla and visualized skull base which is indeterminate. There are also patchy sclerotic changes to the cervical vertebrae. This may be related to an underlying metabolic process of the bone. Fibrous dysplasia involving the mandible, maxilla, and skull base may also have this appearance. A neoplastic process is felt less likely, however , cannot be entirely excluded on imaging. Recommend correlation with patient history and followup. Result Diagram: 12/11/16 0624 12/11/16 0624 Results 24 hrs Laboratory Tests Test 12/11/16 06:24 White Blood Count 4.8 Red Blood Count 2.60 L Hemoglobin 8.1 L Hematocrit 25.1 L Mean Corpuscular Volume 96.5 Mean Corpuscular Hemoglobin 31.2 Mean Corpuscular Hemoglobin Concent 32.3 Red Cell Distribution Width 19.0 H Platelet Count 153 Mean Platelet Volume 10.8 H Neutrophils % 59.4 Lymphocytes % 22.6 Monocytes % 11.0 Eosinophils % 6.0 Basophils % 0.6 Nucleated Red Blood Cells % 0.0 Neutrophils # (Manual) 3 Lymphocytes # 1.1 Monocytes # 0.5 Eosinophils # 0.3 Basophils # 0.0 Nucleated Red Blood Cells # 0.0 Sodium Level 132 L Potassium Level 5.5 H Chloride Level 91 L Carbon Dioxide Level 26 Anion Gap 21 H Blood Urea Nitrogen 77 #H Creatinine 7.36 #H Glucose Level 67 L Calcium Level 9.6 Serum HCG, Qualitative NEGATIVE Medications Medications Current Medications Acetaminophen (Tylenol Tab) 650 mg Q4H PRN PO PAIN AND OR ELEVATED TEMP; Start 12/02/16 at 23:00 Hydralazine HCl (Apresoline) 25 mg Q6H PRN PO SBP >170; Start 12/02/16 at 23:00 Morphine Sulfate (morphine) 2 mg Q4H PRN IV MODERATE PAIN LEVEL 4-6 Last administered on 12/11/16 00:00; Admin Dose 2 MG; Start 12/02/16 at 23:00 Diphenhydramine HCl (Benadryl) 25 mg Q6H PRN IV Itching Last administered on 08:05; Admin Dose 25 MG; Start 12/02/16 at 23:00 Ondansetron HCl (Zofran Inj) 4 mg Q6H PRN IV NAUSEA AND/OR VOMITING Last administered on 12/06/16 18:33; Admin Dose 4 MG; Start 12/03/16 at 19:30 Cinacalcet (Sensipar) 90 mg BID PO Last administered on 12/10/16 20:15; Admin Dose 90 MG; Start 12/03/16 at 21:30 Pantoprazole (Protonix Tab) 40 mg DAILY@06 PO Last administered on 12/11/16 05 :27; Admin Dose 40 MG; Start 12/04/16 at 14:00 Ibuprofen (Motrin) 600 mg Q8 PO Last administered on 12/11/16 05:27; Admin Dose 600 MG; Start 12/05/16 at 22:00 Gabapentin (Neurontin) 100 mg TID PO Last administered on 12/10/16 20:16; Admin Dose 100 MG; Start 12/06/16 at 21:00 Lubiprostone (Amitiza) 24 mcg BID PO Last administered on 12/10/16 20:19; Admin Dose 24 MCG; Start 12/07/16 at 16:30 Mineral Oil (Fleet Mineral Oil Enema) 133 ml DAILY [place] ; Start 12/09/16 at 09:00 Metoclopramide HCl (Reglan) 5 mg Q8 IV Last administered on 12/11/16t 05:28; Admin Dose 5 MG; Start 12/10/16 at 14:00 Copies To: CC: CAMERON ISIDRO MD, KAMYAR MD Dec 11, 2016 11:38
--- NOTE | 2016-12-11 12:51 | CONS ---
Date/Time of Note Date/Time of Note DATE: 12/11/16 TIME: 12:51 Assessment/Plan Assessment/Plan Additional Assessment/Plan In surgery now - will follow post op Consultation Date/Type/Reason Admit Date/Time Dec 02, 2016 at 17:19 Initial Consult Date 12/04/16 Type of Consultation: Otolaryngology Referring Provider: LUANNE WALTER MD Exam/Review of Systems Vital Signs Vitals Vital Signs Date Time Temp Pulse Resp B/P Pulse Ox O2 Delivery O2 Flow Rate FiO2 12/11/16 12:29 89 12/11/16 07:57 98.1 19 106/54 98 Intake and Output 12/10/16 12/10/16 12/11/16 15:00 23:00 07:00 Intake Total 720 ml 120 ml Balance 720 ml 120 ml Results Result Diagram: 12/11/1624 12/11/16 0624 Results 24 hrs Laboratory Tests Test 12/11/16 06:24 White Blood Count 4.8 Red Blood Count 2.60 L Hemoglobin 8.1 L Hematocrit 25.1 L Mean Corpuscular Volume 96.5 Mean Corpuscular Hemoglobin 31.2 Mean Corpuscular Hemoglobin Concent 32.3 Red Cell Distribution Width 19.0 H Platelet Count 153 Mean Platelet Volume 10.8 H Neutrophils % 59.4 Lymphocytes % 22.6 Monocytes % 11.0 Eosinophils % 6.0 Basophils % 0.6 Nucleated Red Blood Cells % 0.0 Neutrophils # (Manual) 3 Lymphocytes # 1.1 Monocytes # 0.5 Eosinophils # 0.3 Basophils # 0.0 Nucleated Red Blood Cells # 0.0 Sodium Level 132 L Potassium Level 5.5 H Chloride Level 91 L Carbon Dioxide Level 26 Anion Gap 21 H Blood Urea Nitrogen 77 #H Creatinine 7.36 #H Glucose Level 67 L Calcium Level 9.6 Serum HCG, Qualitative NEGATIVE Medications Medications Current Medications Acetaminophen (Tylenol Tab) 650 mg Q4H PRN PO PAIN AND OR ELEVATED TEMP; Start 12/02/16 at 23:00 Hydralazine HCl (Apresoline) 25 mg Q6H PRN PO SBP >170; Start 12/02/16 at 23:00 Morphine Sulfate (morphine) 2 mg Q4H PRN IV MODERATE PAIN LEVEL 4-6 Last administered on 12/11/16t 11:36; Admin Dose 2 MG; Start 12/02/16 at 23:00 Diphenhydramine HCl (Benadryl) 25 mg Q6H PRN IV Itching Last administered on 08:05; Admin Dose 25 MG; Start 12/02/16 at 23:00 Ondansetron HCl (Zofran Inj) 4 mg Q6H PRN IV NAUSEA AND/OR VOMITING Last administered on 12/06/16 18:33; Admin Dose 4 MG; Start 12/03/16 at 19:30 Cinacalcet (Sensipar) 90 mg BID PO Last administered on 12/10/16 20:15; Admin Dose 90 MG; Start 12/03/16 at 21:30 Pantoprazole (Protonix Tab) 40 mg DAILY@06 PO Last administered on 12/11/16 05 :27; Admin Dose 40 MG; Start 12/04/16 at 14:00 Ibuprofen (Motrin) 600 mg Q8 PO Last administered on 12/11/16 05:27; Admin Dose 600 MG; Start 12/05/16 at 22:00 Gabapentin (Neurontin) 100 mg TID PO Last administered on 12/10/16 20:16; Admin Dose 100 MG; Start 12/06/16 at 21:00 Lubiprostone (Amitiza) 24 mcg BID PO Last administered on 12/10/16 20:19; Admin Dose 24 MCG; Start 12/07/16 at 16:30 Mineral Oil (Fleet Mineral Oil Enema) [address] ; Start 12/09/16 at 09:00 Metoclopramide HCl (Reglan) 5 mg Q8 IV Last administered on 12/11/16 05:28; Admin Dose 5 MG; Start 12/10/16 at 14:00 YUMIKO HO MD Dec 11, 2016 12:51
[2016-12-11] MEDS ORDERED: FENTAnyl 50 MCG/ML VIAL ONE ×2 (13:15→14:57)
[2016-12-11] MEDS ORDERED: PHENYLephrine (100 MCG/ML) 5ML SYG ONE (13:38)
[2016-12-11] MEDS ORDERED: CEFAZOLIN 1 GM INJ ONE (14:44)
[2016-12-11] MEDS ORDERED: ONDANSETRON 4 MG INJ ONE (14:44)
[2016-12-11] MEDS ORDERED: PROPOFOL 20 ML ONE (14:44)
[2016-12-11] MEDS ORDERED: LIDOCAINE 2% (SDV) 5 ML INJ ONE (14:44)
--- NOTE | 2016-12-11 14:51 | OPR ---
Date/Time of Note Date/Time of Note DATE: 12/11/16 TIME: 14:44 Operative Report Procedure Date: Dec 11, 2016 Preoperative Diagnosis Hyperparathyroidism, dysphagia, hypercalcemia Postoperative Diagnosis Same, large left compressive parathyroid adenoma. Operation Performed Central neck exploration, partial left thyroid lobectomy, left upper and lower parathyroidectomy Surgeon: YANG ORTEGA MD Tanker Truck Driver: FERN WILSON Anesthesia Type: general Estimated Blood Loss: minimal Transfusion Required: no Specimens Left lower and upper paratracheal mass, partial thyroid Grafts/Implants: none Complications: no Pt Condition Post Procedure: stable Disposition: PACU Indications Dysphagia, hypercalcemia Operative\Procedure Findings Large left lower adenoma, over 4 cm, compressing esophagus. Pale but normal size left upper parathyroid. Procedure Description Description of procedure: The patient was identified in the holding area. We had a discussion to confirm understanding of indications, risks, benefits, alternatives and postoperative care associated with the operation. Informed consent was signed. The patient was taken the operating room and placed supine on the operating table. General endotracheal anesthesia was achieved with a recurrent laryngeal nerve monitor capable endotracheal tube and recurrent laryngeal nerve monitoring was performed throughout the duration of the case. A shoulder roll was placed. The neck was prepped and draped in normal sterile fashion. A 15 blade was used to make a horizontal incision in a preexisting cervical crease. Subplatysmal flaps were elevated circumferentially. The midline raphe between the strap muscles was identified and vertically divided using monopolar cautery. The left sided strap muscles were elevated off the thyroid lobe. Dissection was fairly easy as there were no adhesions or signs of invasion.The superior pole of the thyroid gland was identified and bluntly dissected free to isolate the superior laryngeal nerve and the super pole vascular pedicle. The nerve was kept intact. More inferiorly, the middle thyroid vein was taken after careful ligation and transection and dissection in the tracheoesophageal groove was used to identify the recurrent laryngeal nerve. It was followed superiorly to the cricothyroid joint and in this area the the superior parathyroid gland was identified. The parathyroid was carefully dissected laterally and removed for evaluation by pathology. It was not large but pale and relatively avascular. More inferior dissection followed. A large firm thyroid nodule was encountered. This was dissected free to find it compressing the esophagus and confirming it as the large adenoma identified on preoperative imaging. It was resected with partial thyroid lobectomy after frozen section confirmed it was parathyroid. The remaining thyroid was palpated and found free of disease. At this point, the possibility of the majority of the patients pathology was caused by this single adenoma was contemplated. It was decided to avoid dissecting the right paratracheal compartment. There was no mass or lymphadenopathy visible or palpable on thorough inspection of the central compartment. The wound was irrigated with copious amounts of saline. Valsalva was performed. There was no bleeding or oozing. A 3 -0 Vicryl was used to reapproximate the strap muscles in midline after which the same suture was used to reapproximate the platysma in interrupted buried fashion. Running 4-0 Monocryl was used to reapproximate the skin. The patient tolerated the procedure well and was extubated, taken to PACU in stable condition. Complications: None YANG ORTEGA MD Dec 11, 2016 14:51
[2016-12-11] MEDS: FENTAnyl 50 MCG/ML VIAL IV PRN ×4 (15:11→15:31)
[2016-12-11] MEDS: ONDANSETRON 4 MG INJ IV PRN (15:25)
--- NOTE | 2016-12-11 18:03 | PN ---
Date/Time of Note Date/Time of Note DATE: 12/11/16 TIME: 17:56 Assessment/Plan VTE Prophylaxis VTE Prophylaxis Intervention: ambulation Lines/Catheters IV Catheter Type (from [facility]): Peripheral IV Urinary Cath still in place: No Assessment/Plan Assessment/Plan 31-year-old female with end-stage renal disease on hemodialysis for 6 years presented with neck pain dysphagia enlarged parathyroid gland hypercalcemia and evidence of 3ry hyperparathyroidism. 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 Today she underwent exploration of the neck. Partial left thyroidectomy. Removal of the superior and inferior parathyroid enlarged glands that had caused compressive symptom on the esophagus. We will see the effect of surgery on the following days. I will continue following the patient along with other colleagues. Subjective 24 Hr Interval Summary Free Text/Dictation Status post neck exploration and removal of the left upper and lower parathyroid adenomas and left partial thyroidectomy. Complaining of neck pain mainly is incisional pain. She had operation today afternoon. Exam/Review of Systems Vital Signs Vitals Vital Signs Date Time Temp Pulse Resp B/P Pulse Ox O2 Delivery O2 Flow Rate FiO2 12/11/16 16:29 108 12/11/16 15:54 97.7 19 114/75 96 12/11/16 15:27 Nasal Cannula 2.0 Intake and Output 12/10/16 12/10/16 12/11/16 15:00 23:00 07:00 Intake Total 720 ml 120 ml Balance 720 ml 120 ml Exam Vital sign is a stable postop few hours ago patient can talk. Voice has not changed complain of neck incisional pain. Results Result Diagram: 12/11/16 0624 12/11/16 0624 Results 24 hrs Laboratory Tests Test 12/11/16 06:24 White Blood Count 4.8 Red Blood Count 2.60 L Hemoglobin 8.1 L Hematocrit 25.1 L Mean Corpuscular Volume 96.5 Mean Corpuscular Hemoglobin 31.2 Mean Corpuscular Hemoglobin Concent 32.3 Red Cell Distribution Width 19.0 H Platelet Count 153 Mean Platelet Volume 10.8 H Neutrophils % 59.4 Lymphocytes % 22.6 Monocytes % 11.0 Eosinophils % 6.0 Basophils % 0.6 Nucleated Red Blood Cells % 0.0 Neutrophils # (Manual) 3 Lymphocytes # 1.1 Monocytes # 0.5 Eosinophils # 0.3 Basophils # 0.0 Nucleated Red Blood Cells # 0.0 Sodium Level 132 L Potassium Level 5.5 H Chloride Level 91 L Carbon Dioxide Level 26 Anion Gap 21 H Blood Urea Nitrogen 77 #H Creatinine 7.36 #H Glucose Level 67 L Calcium Level 9.6 Serum HCG, Qualitative NEGATIVE Medications Medications Current Medications Acetaminophen (Tylenol Tab) 650 mg Q4H PRN PO PAIN AND OR ELEVATED TEMP; Start 12/02/16 at 23:00 Hydralazine HCl (Apresoline) 25 mg Q6H PRN PO SBP >170; Start 12/02/16 at 23:00 Morphine Sulfate (morphine) 2 mg Q4H PRN IV MODERATE PAIN LEVEL 4-6 Last administered on 12/11/16 11:36; Admin Dose 2 MG; Start 12/02/16 at 23:00 Diphenhydramine HCl (Benadryl) 25 mg Q6H PRN IV Itching Last administered on 16:27; Admin Dose 25 MG; Start 12/02/16 at 23:00 Ondansetron HCl (Zofran Inj) 4 mg Q6H PRN IV NAUSEA AND/OR VOMITING Last administered on 12/11/16 15:25; Admin Dose 4 MG; Start 12/03/16 at 19:30 Cinacalcet (Sensipar) 90 mg BID PO Last administered on 12/10/16 20:15; Admin Dose 90 MG; Start 12/03/16 at 21:30 Pantoprazole (Protonix Tab) 40 mg DAILY@06 PO Last administered on 12/11/16 05 :27; Admin Dose 40 MG; Start 12/04/16 at 14:00 Ibuprofen (Motrin) 600 mg Q8 PO Last administered on 12/11/16 05:27; Admin Dose 600 MG; Start 12/05/16 at 22:00 Gabapentin (Neurontin) 100 mg TID PO Last administered on 12/10/16 20:16; Admin Dose 100 MG; Start 12/06/16 at 21:00 Lubiprostone (Amitiza) 24 mcg BID PO Last administered on 12/10/16 20:19; Admin Dose 24 MCG; Start 12/07/16 at 16:30 Mineral Oil (Fleet Mineral Oil Enema) 133 ml DAILY [place] ; Start 12/09/16 at 09:00 Metoclopramide HCl (Reglan) 5 mg Q8 IV Last administered on 12/11/16t 05:28; Admin Dose 5 MG; Start 12/10/16 at 14:00 Oxycodone/ Acetaminophen (Percocet (5/ 325)) 1 tab Q6H PRN PO PAIN LEVEL 6-10; Start 12/11/16 at 15:00 TANISHA MALONEY MD Dec 11, 2016 18:03
--- NOTE | 2016-12-11 18:54 | PN ---
Date/Time of Note Date/Time of Note DATE: 12/11/16 TIME: 18:48 Assessment/Plan VTE Prophylaxis VTE Prophylaxis Intervention: SCD's Lines/Catheters IV Catheter Type (from [facility]): Peripheral IV Urinary Cath still in place: No Assessment/Plan Chief Complaint/Hosp Course Patient is start status post left thyroid lobectomy and left parathyroidectomy, currently undergoing hemodialysis. Assessment/Plan -Large left compressive parathyroid adenoma. S/p partial left thyroid lobectomy , left upper and lower parathyroidectomy by Dr Morales. -Dysphagia and odynophagia secondary to #1. Dr. Smallwood is following in gastroenterology consultation. Patient status post recent EGD at [facility]. -Thyrotoxicosis with multinodular goiter, Dr. Damon is following in endocrinology consultation. Dr. Red is following in general surgery consultation. -History of hyperparathyroidism -Hemodialysis dependent end-stage renal disease, Dr. Silverio following in nephrology , continue hemodialysis per nephrology. -Central stenosis, Dr. Francisco is following in vascular surgery consultation. Status post left upper extremity fistulogram. Further recommendations based on clinical course. Plan of care discussed with Dr. Turner Problems: Exam/Review of Systems Vital Signs Vitals Vital Signs Date Time Temp Pulse Resp B/P Pulse Ox O2 Delivery O2 Flow Rate FiO2 12/11/16 16:29 108 12/11/16 15:54 97.7 19 114/75 96 12/11/16 15:27 Nasal Cannula 2.0 Intake and Output 12/10/16 12/10/16 12/11/16 15:00 23:00 07:00 Intake Total 720 ml 120 ml Balance 720 ml 120 ml Exam Constitutional: alert, oriented Neck: Status post surgery Cardiovascular: nl pulses Gastrointestinal: non-tender, soft Extremities: normal pulses, other (Left upper extremity AV fistula) 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: nl mental status Results Result Diagram: 12/11/16 0624 12/11/16 0624 Results 24 hrs Laboratory Tests Test 12/11/16 06:24 White Blood Count 4.8 Red Blood Count 2.60 L Hemoglobin 8.1 L Hematocrit 25.1 L Mean Corpuscular Volume 96.5 Mean Corpuscular Hemoglobin 31.2 Mean Corpuscular Hemoglobin Concent 32.3 Red Cell Distribution Width 19.0 H Platelet Count 153 Mean Platelet Volume 10.8 H Neutrophils % 59.4 Lymphocytes % 22.6 Monocytes % 11.0 Eosinophils % 6.0 Basophils % 0.6 Nucleated Red Blood Cells % 0.0 Neutrophils # (Manual) 3 Lymphocytes # 1.1 Monocytes # 0.5 Eosinophils # 0.3 Basophils # 0.0 Nucleated Red Blood Cells # 0.0 Sodium Level 132 L Potassium Level 5.5 H Chloride Level 91 L Carbon Dioxide Level 26 Anion Gap 21 H Blood Urea Nitrogen 77 #H Creatinine 7.36 #H Glucose Level 67 L Calcium Level 9.6 Serum HCG, Qualitative NEGATIVE Medications Medications Current Medications Acetaminophen (Tylenol Tab) 650 mg Q4H PRN PO PAIN AND OR ELEVATED TEMP; Start 12/02/16 at 23:00 Hydralazine HCl (Apresoline) 25 mg Q6H PRN PO SBP >170; Start 12/02/16 at 23:00 Morphine Sulfate (morphine) 2 mg Q4H PRN IV MODERATE PAIN LEVEL 4-6 Last administered on 12/11/16 11:36; Admin Dose 2 MG; Start 12/02/16 at 23:00 Diphenhydramine HCl (Benadryl) 25 mg Q6H PRN IV Itching Last administered on 16:27; Admin Dose 25 MG; Start 12/02/16 at 23:00 Ondansetron HCl (Zofran Inj) 4 mg Q6H PRN IV NAUSEA AND/OR VOMITING Last administered on 12/11/16 15:25; Admin Dose 4 MG; Start 12/03/16 at 19:30 Cinacalcet (Sensipar) 90 mg BID PO Last administered on 12/10/16 20:15; Admin Dose 90 MG; Start 12/03/16 at 21:30 Pantoprazole (Protonix Tab) 40 mg DAILY@06 PO Last administered on 12/11/16 05 :27; Admin Dose 40 MG; Start 12/04/16 at 14:00 Ibuprofen (Motrin) 600 mg Q8 PO Last administered on 12/11/16 05:27; Admin Dose 600 MG; Start 12/05/16 at 22:00 Gabapentin (Neurontin) 100 mg TID PO Last administered on 12/10/16 20:16; Admin Dose 100 MG; Start 12/06/16 at 21:00 Lubiprostone (Amitiza) 24 mcg BID PO Last administered on 12/10/16 20:19; Admin Dose 24 MCG; Start 12/07/16 at 16:30 Mineral Oil (Fleet Mineral Oil Enema) 133 ml DAILY [place] ; Start 12/09/16 at 09:00 Metoclopramide HCl (Reglan) 5 mg Q8 IV Last administered on 12/11/16 05:28; Admin Dose 5 MG; Start 12/10/16 at 14:00 Oxycodone/ Acetaminophen (Percocet (5/ 325)) 1 tab Q6H PRN PO PAIN LEVEL 6-10; Start 12/11/16 at 15:00 ERICK ROBERTSON Dec 11, 2016 18:54
--- NOTE | 2016-12-11 20:51 | CONS ---
Date/Time of Note Date/Time of Note DATE: 12/11/16 TIME: 20:50 Assessment/Plan Assessment/Plan Chief Complaint/Hosp Course 31 year old female with history of ESRD,admitted for abdominal pain,dysphagia. no nausea,vomiting or gi bleeding.No chest pain or SOB. Problems: Additional Assessment/Plan Additional Assessment/Plan 1. dysphagia,mostly secondary to multinodular goiter 2. Hypotension, borderline. 3. Goiter multinodular. 4. End-stage renal disease on hemodialysis. 5. Hyperkalemia resolved. 6. Abdominal pain. 7. increased alkaline phosphate secondary to hyperparathyroidism 8. Gastroparesis 9. Severe constipation 10. Status post thyroid gland biopsy 11. Induration in the cubital fossa 12. Status post surgery parathyroid glands were removed and partial thyroidectomy done Plan parathyroidectomy as per surgery Bentyl PPI continue present care. Caridad Lopez Patient had a EGD a few weeks ago at [facility] upper GI tract did not show any stricture or ulcer. She had to my knowledge varicose vein only in the proximal part of the esophagus not in the mid or distal part We will monitor alkaline phosphatase Consultation Date/Type/Reason Admit Date/Time Dec 02, 2016 at 17:19 Initial Consult Date 12/04/16 Type of Consultation: Otolaryngology Referring Provider: LUANNE WALTER MD 24 HR Interval Summary Free Text/Dictation Complains of pain at the surgical site Exam/Review of Systems Vital Signs Vitals Vital Signs Date Time Temp Pulse Resp B/P Pulse Ox O2 Delivery O2 Flow Rate FiO2 12/11/16 20:09 97 12/11/16 20:00 18 12/11/16 19:51 97.6 103/56 100 12/11/16 15:27 Nasal Cannula 2.0 Intake and Output 12/10/16 12/10/16 12/11/16 15:00 23:00 07:00 Intake Total 720 ml 120 ml Balance 720 ml 120 ml Exam Constitutional: alert, oriented, well developed Psych: nl mood/affect, no complaints Head: atraumatic, normocephalic Eyes: EOMI, PERRL, nl conjunctiva, nl lids, nl sclera ENMT: nl external ears & nose, nl lips & teeth, nl nasal mucosa & septum Neck: non-tender, supple Respiratory: clear to auscultation, normal air movement Cardiovascular: nl pulses, regular rate and rhythm Gastrointestinal: nl liver, spleen, non-tender, soft Musculoskeletal: nl extremities to inspection, nl gait and stance Extremities: normal pulses 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: AUDITING CONTROL CLERK II-XII intact, nl mental status, nl speech, nl strength Skin: nl turgor, No rash or lesions Lymph: nl lymph nodes Results Result Diagram: 12/11/16 0624 12/11/16 0624 Results 24 hrs Laboratory Tests Test 12/11/16 06:24 White Blood Count 4.8 Red Blood Count 2.60 L Hemoglobin 8.1 L Hematocrit 25.1 L Mean Corpuscular Volume 96.5 Mean Corpuscular Hemoglobin 31.2 Mean Corpuscular Hemoglobin Concent 32.3 Red Cell Distribution Width 19.0 H Platelet Count 153 Mean Platelet Volume 10.8 H Neutrophils % 59.4 Lymphocytes % 22.6 Monocytes % 11.0 Eosinophils % 6.0 Basophils % 0.6 Nucleated Red Blood Cells % 0.0 Neutrophils # (Manual) 3 Lymphocytes # 1.1 Monocytes # 0.5 Eosinophils # 0.3 Basophils # 0.0 Nucleated Red Blood Cells # 0.0 Sodium Level 132 L Potassium Level 5.5 H Chloride Level 91 L Carbon Dioxide Level 26 Anion Gap 21 H Blood Urea Nitrogen 77 #H Creatinine 7.36 #H Glucose Level 67 L Calcium Level 9.6 Serum HCG, Qualitative NEGATIVE Medications Medications Current Medications Acetaminophen (Tylenol Tab) 650 mg Q4H PRN PO PAIN AND OR ELEVATED TEMP; Start 12/02/16 at 23:00 Hydralazine HCl (Apresoline) 25 mg Q6H PRN PO SBP >170; Start 12/02/16 at 23:00 Morphine Sulfate (morphine) 2 mg Q4H PRN IV MODERATE PAIN LEVEL 4-6 Last administered on 12/11/16 11:36; Admin Dose 2 MG; Start 12/02/16 at 23:00 Diphenhydramine HCl (Benadryl) 25 mg Q6H PRN IV Itching Last administered on 16:27; Admin Dose 25 MG; Start 12/02/16 at 23:00 Ondansetron HCl (Zofran Inj) 4 mg Q6H PRN IV NAUSEA AND/OR VOMITING Last administered on 12/11/16 15:25; Admin Dose 4 MG; Start 12/03/16 at 19:30 Cinacalcet (Sensipar) 90 mg BID PO Last administered on 12/10/16 20:15; Admin Dose 90 MG; Start 12/03/16 at 21:30 Pantoprazole (Protonix Tab) 40 mg DAILY@06 PO Last administered on 12/11/16 05 :27; Admin Dose 40 MG; Start 12/04/16 at 14:00 Ibuprofen (Motrin) 600 mg Q8 PO Last administered on 12/11/16 05:27; Admin Dose 600 MG; Start 12/05/16 at 22:00 Gabapentin (Neurontin) 100 mg TID PO Last administered on 12/10/16 20:16; Admin Dose 100 MG; Start 12/06/16 at 21:00 Lubiprostone (Amitiza) 24 mcg BID PO Last administered on 12/10/16 20:19; Admin Dose 24 MCG; Start 12/07/16 at 16:30 Mineral Oil (Fleet Mineral Oil Enema) 133 ml DAILY [place] ; Start 12/09/16 at 09:00 Metoclopramide HCl (Reglan) 5 mg Q8 IV Last administered on 12/11/16 05:28; Admin Dose 5 MG; Start 12/10/16 at 14:00 Oxycodone/ Acetaminophen (Percocet (5/ 325)) 1 tab Q6H PRN PO PAIN LEVEL 6-10; Start 12/11/16 at 15:00 FREDERIC GARCIA MD Dec 11, 2016 20:51
[2016-12-11] MEDS: OXYCODONE/ACETAMINOPHEN (5/325) TAB PO PRN (22:26)
[2016-12-12] VITALS (11 sets, daily range): BP systolic 84–125; BP diastolic 47–64; PULSE 100–114; RESP 18–19
[2016-12-12] MEDS: morphine 2 MG INJ IV PRN ×4 (03:14→20:51)
[2016-12-12] MEDS: DIPHENHYDRAMINE 50 MG INJ IV PRN ×4 (04:27→23:10)
[2016-12-12] MEDS: OXYCODONE/ACETAMINOPHEN (5/325) TAB PO PRN (06:49)
[2016-12-12] MEDS: METOCLOPRAMIDE 10 MG INJ IV SCH ×3 (06:51→21:02)
[2016-12-12] MEDS: IBUPROFEN 600 MG TAB PO SCH ×3 (06:52→21:02)
[2016-12-12] MEDS: PANTOPRAZOLE (EC) 40 MG TAB PO SCH (06:53)
[2016-12-12] MEDS: CINACALCET 30 MG TAB PO SCH (09:10)
[2016-12-12] MEDS: GABAPENTIN 100 MG CAP PO SCH ×3 (09:10→20:54)
[2016-12-12] MEDS: SEVELAMER 800 MG TAB PO SCH ×3 (09:10→18:40)
[2016-12-12] MEDS: LUBIPROSTONE 24 MCG CAP PO SCH ×2 (09:10→20:54)
[2016-12-12 09:23] LABS: BASOPHILS % 0.2 % (0.0-2.0); EOSINOPHILS # 0.2 10^3/ul (0.0-0.5); EOSINOPHILS % 3.6 % (0.0-7.0); HEMATOCRIT 27.4 % (37.0-47.0); HEMOGLOBIN 8.8 g/dl (12.0-16.0); LYMPHOCYTES # 0.7 10^3/ul (0.8-2.9); LYMPHOCYTES % 12.5 % (15.0-51.0); MEAN CORPUSCULAR HEMOGLOBIN 31.7 pg (29.0-33.0); MEAN CORPUSCULAR HGB CONC 32.1 g/dl (32.0-37.0); MEAN CORPUSCULAR VOLUME 98.6 fl (82.0-101.0); MEAN PLATELET VOLUME 10.9 fl (7.4-10.4); MONOCYTE # 0.5 10^3/ul (0.3-0.9); MONOCYTES % 9.1 % (0.0-11.0); NEUTROPHILS % 74.4 % (39.0-77.0); PLATELET COUNT 161 10^3/UL (140-415); RED BLOOD COUNT 2.78 10^6/ul (4.20-5.40); RED CELL DISTRIBUTION WIDTH 18.4 % (11.5-14.5); WHITE BLOOD COUNT 5.3 10^3/ul (4.8-10.8)
[2016-12-12 09:56] LABS: CALCIUM 8.6 mg/dl (8.4-10.2); CREATININE 5.25 mg/dl (0.44-1.00)
--- NOTE | 2016-12-12 10:12 | PN ---
Date/Time of Note Date/Time of Note DATE: 12/12/16 TIME: 10:12 Assessment/Plan VTE Prophylaxis VTE Prophylaxis Intervention: other Lines/Catheters IV [facility]ter Type (from [facility]): Peripheral IV Urinary Cath still in place: No Assessment/Plan Chief Complaint/Hosp Course -Large left compressive parathyroid adenoma. S/p partial left thyroid lobectomy , left upper and lower parathyroidectomy by Dr Morales. -Dysphagia and odynophagia secondary to #1. Dr. Smallwood is following in gastroenterology consultation. Patient status post recent EGD at [facility]. -Thyrotoxicosis with multinodular goiter, Dr. Damon is following in endocrinology consultation. Dr. Red is following in general surgery consultation. -History of hyperparathyroidism -Hemodialysis dependent end-stage renal disease, Dr. Silverio following in nephrology , continue hemodialysis per nephrology. -Central stenosis, Dr. Francisco is following in vascular surgery consultation. Status post left upper extremity fistulogram. Problems: Subjective 24 Hr Interval Summary Free Text/Dictation Patient has no complaints Exam/Review of Systems Vital Signs Vitals Vital Signs Date Time Temp Pulse Resp B/P Pulse Ox O2 Delivery O2 Flow Rate FiO2 12/12/16 08:05 105 12/12/16 07:54 99.1 18 112/59 97 12/11/16 15:27 Nasal Cannula 2.0 Intake and Output 12/11/16 12/11/16 12/12/16 15:00 23:00 07:00 Intake Total 700 ml 700 ml Output Total 10 ml 4000 ml Balance 690 ml -3300 ml Exam Constitutional: well developed Head: atraumatic, normocephalic Neck: supple Respiratory: clear to auscultation Cardiovascular: regular rate and rhythm Gastrointestinal: non-tender, soft Extremities: normal pulses Results Result Diagram: 12/12/16 0822 12/12/16 0822 Results 24 hrs Laboratory Tests Test 12/12/16 08:22 White Blood Count 5.3 Red Blood Count 2.78 L Hemoglobin 8.8 L Hematocrit 27.4 L Mean Corpuscular Volume 98.6 Mean Corpuscular Hemoglobin 31.7 Mean Corpuscular Hemoglobin Concent 32.1 Red Cell Distribution Width 18.4 H Platelet Count 161 Mean Platelet Volume 10.9 H Neutrophils % 74.4 Lymphocytes % 12.5 L Monocytes % 9.1 Eosinophils % 3.6 Basophils % 0.2 Nucleated Red Blood Cells % 0.0 Neutrophils # (Manual) 4 Lymphocytes # 0.7 L Monocytes # 0.5 Eosinophils # 0.2 Basophils # 0.0 Nucleated Red Blood Cells # 0.0 Sodium Level 136 Potassium Level 5.0 Chloride Level 93 L Carbon Dioxide Level 28 Anion Gap 20 H Blood Urea Nitrogen 41 #H Creatinine 5.25 #H Glucose Level 66 L Calcium Level 8.6 Medications Medications Current Medications Acetaminophen (Tylenol Tab) 650 mg Q4H PRN PO PAIN AND OR ELEVATED TEMP; Start 12/02/16 at 23:00 Hydralazine HCl (Apresoline) 25 mg Q6H PRN PO SBP >170; Start 12/02/16 at 23:00 Morphine Sulfate (morphine) 2 mg Q4H PRN IV MODERATE PAIN LEVEL 4-6 Last administered on 12/12/16 09:08; Admin Dose 2 MG; Start 12/02/16 at 23:00 Diphenhydramine HCl (Benadryl) 25 mg Q6H PRN IV Itching Last administered on 04:27; Admin Dose 25 MG; Start 12/02/16 at 23:00 Ondansetron HCl (Zofran Inj) 4 mg Q6H PRN IV NAUSEA AND/OR VOMITING Last administered on 12/11/16 15:25; Admin Dose 4 MG; Start 12/03/16 at 19:30 Cinacalcet (Sensipar) 90 mg BID PO Last administered on 12/12/16 09:10; Admin Dose 90 MG; Start 12/03/16 at 21:30 Pantoprazole (Protonix Tab) 40 mg DAILY@06 PO Last administered on 12/12/16 06 :53; Admin Dose 40 MG; Start 12/04/16 at 14:00 Ibuprofen (Motrin) 600 mg Q8 PO Last administered on 12/12/16 06:52; Admin Dose 600 MG; Start 12/05/16 at 22:00 Gabapentin (Neurontin) 100 mg TID PO Last administered on 12/12/16 09:10; Admin Dose 100 MG; Start 12/06/16 at 21:00 Lubiprostone (Amitiza) 24 mcg BID PO Last administered on 12/12/16 09:10; Admin Dose 24 MCG; Start 12/07/16 at 16:30 Mineral Oil (Fleet Mineral Oil Enema) 133 ml DAILY [place] ; Start 12/09/16 at 09:00 Metoclopramide HCl (Reglan) 5 mg Q8 IV Last administered on 12/12/16 06:51; Admin Dose 5 MG; Start 12/10/16 at 14:00 Oxycodone/ Acetaminophen (Percocet (5/ 325)) 1 tab Q6H PRN PO PAIN LEVEL 6-10 Last administered on 12/12/16 06:49; Admin Dose 1 TAB; Start 12/11/16 at 15:00 ANGELY PANG Dec 12, 2016 10:12
--- NOTE | 2016-12-12 10:25 | PN ---
Date/Time of Note Date/Time of Note DATE: 12/12/16 TIME: 10:22 Assessment/Plan VTE Prophylaxis VTE Prophylaxis Intervention: ambulation Lines/Catheters IV Catheter Type (from Nrs): Peripheral IV Urinary Cath still in place: No Assessment/Plan Chief Complaint/Hosp Course SP left parathyroidectomy. Possible that all sx due to single left lower adenoma. Would repeat PTH and advance diet to regular. FU as outpatient with endocrinology and nephrology. Problems: Subjective 24 Hr Interval Summary Free Text/Dictation Doing well. Mild pain. Globus resolved. Food passes easier. Happy. Exam/Review of Systems Vital Signs Vitals Vital Signs Date Time Temp Pulse Resp B/P Pulse Ox O2 Delivery O2 Flow Rate FiO2 12/12/16 08:05 105 12/12/16 07:54 99.1 18 112/59 97 12/11/16 15:27 Nasal Cannula 2.0 Intake and Output 12/11/16 12/11/16 12/12/16 15:00 23:00 07:00 Intake Total 700 ml 700 ml Output Total 10 ml 4000 ml Balance 690 ml -3300 ml Exam Neck with soft edema. No stridor. Voice normal. Incision clean. Results Result Diagram: 12/12/16 0822 12/12/16 0822 Results 24 hrs Laboratory Tests Test 12/12/16 08:22 White Blood Count 5.3 Red Blood Count 2.78 L Hemoglobin 8.8 L Hematocrit 27.4 L Mean Corpuscular Volume 98.6 Mean Corpuscular Hemoglobin 31.7 Mean Corpuscular Hemoglobin Concent 32.1 Red Cell Distribution Width 18.4 H Platelet Count 161 Mean Platelet Volume 10.9 H Neutrophils % 74.4 Lymphocytes % 12.5 L Monocytes % 9.1 Eosinophils % 3.6 Basophils % 0.2 Nucleated Red Blood Cells % 0.0 Neutrophils # (Manual) 4 Lymphocytes # 0.7 L Monocytes # 0.5 Eosinophils # 0.2 Basophils # 0.0 Nucleated Red Blood Cells # 0.0 Sodium Level 136 Potassium Level 5.0 Chloride Level 93 L Carbon Dioxide Level 28 Anion Gap 20 H Blood Urea Nitrogen 41 #H Creatinine 5.25 #H Glucose Level 66 L Calcium Level 8.6 Medications Medications Current Medications Acetaminophen (Tylenol Tab) 650 mg Q4H PRN PO PAIN AND OR ELEVATED TEMP; Start 12/02/16 at 23:00 Hydralazine HCl (Apresoline) 25 mg Q6H PRN PO SBP >170; Start 12/02/16 at 23:00 Morphine Sulfate (morphine) 2 mg Q4H PRN IV MODERATE PAIN LEVEL 4-6 Last administered on 12/12/16 09:08; Admin Dose 2 MG; Start 12/02/16 at 23:00 Diphenhydramine HCl (Benadryl) 25 mg Q6H PRN IV Itching Last administered on 04:27; Admin Dose 25 MG; Start 12/02/16 at 23:00 Ondansetron HCl (Zofran Inj) 4 mg Q6H PRN IV NAUSEA AND/OR VOMITING Last administered on 12/11/16 15:25; Admin Dose 4 MG; Start 12/03/16 at 19:30 Cinacalcet (Sensipar) 90 mg BID PO Last administered on 12/12/16 09:10; Admin Dose 90 MG; Start 12/03/16 at 21:30 Pantoprazole (Protonix Tab) 40 mg DAILY@06 PO Last administered on 12/12/16 06 :53; Admin Dose 40 MG; Start 12/04/16 at 14:00 Ibuprofen (Motrin) 600 mg Q8 PO Last administered on 12/12/16 06:52; Admin Dose 600 MG; Start 12/05/16 at 22:00 Gabapentin (Neurontin) 100 mg TID PO Last administered on 12/12/16 09:10; Admin Dose 100 MG; Start 12/06/16 at 21:00 Lubiprostone (Amitiza) 24 mcg BID PO Last administered on 12/12/16 09:10; Admin Dose 24 MCG; Start 12/07/16 at 16:30 Mineral Oil (Fleet Mineral Oil Enema) 133 ml DAILY [place] ; Start 12/09/16 at 09:00 Metoclopramide HCl (Reglan) 5 mg Q8 IV Last administered on 12/12/16 06:51; Admin Dose 5 MG; Start 12/10/16 at 14:00 Oxycodone/ Acetaminophen (Percocet (5/ 325)) 1 tab Q6H PRN PO PAIN LEVEL 6-10 Last administered on 12/12/16 06:49; Admin Dose 1 TAB; Start 12/11/16 at 15:00 YANG ORTEGA MD Dec 12, 2016 10:25
--- NOTE | 2016-12-12 11:45 | CONS ---
Date/Time of Note Date/Time of Note DATE: 12/12/16 TIME: 11:44 Assessment/Plan Assessment/Plan Chief Complaint/Hosp Course 31 year old female with history of ESRD,admitted for abdominal pain,dysphagia. no nausea,vomiting or gi bleeding.No chest pain or SOB. Problems: Additional Assessment/Plan Problems: Additional Assessment/Plan Additional Assessment/Plan 1. dysphagia,mostly secondary to multinodular goiter, resolved after the surgery 2. Hypotension, borderline. 3. Goiter multinodular. 4. End-stage renal disease on hemodialysis. 5. Hyperkalemia resolved. 6. Abdominal pain. 7. increased alkaline phosphate secondary to hyperparathyroidism 8. Gastroparesis 9. Severe constipation 10. Status post thyroid gland biopsy 11. Induration in the cubital fossa 12. Status post surgery parathyroid glands were removed and partial thyroidectomy done 13. Abdominal pain also resolved Plan parathyroidectomy as per surgery Bentyl PPI continue present care. Caridad Lopez Patient had a EGD a few weeks ago at [facility] upper GI tract did not show any stricture or ulcer. She had to my knowledge varicose vein only in the proximal part of the esophagus not in the mid or distal part We will monitor alkaline phosphatase Continue present care Consultation Date/Type/Reason Admit Date/Time Dec 02, 2016 at 17:19 Initial Consult Date 12/04/16 Type of Consultation: Otolaryngology Referring Provider: LUANNE WALTER MD 24 HR Interval Summary Constitutional: improved, no complaints Exam/Review of Systems Vital Signs Vitals Vital Signs Date Time Temp Pulse Resp B/P Pulse Ox O2 Delivery O2 Flow Rate FiO2 12/12/16 08:05 105 12/12/16 07:54 99.1 18 112/59 97 12/11/16 15:27 Nasal Cannula 2.0 Intake and Output 12/11/16 12/11/16 12/12/16 15:00 23:00 07:00 Intake Total 700 ml 700 ml Output Total 10 ml 4000 ml Balance 690 ml -3300 ml Exam Constitutional: alert, oriented, well developed Psych: nl mood/affect, no complaints Head: atraumatic, normocephalic Eyes: EOMI, PERRL, nl conjunctiva, nl lids, nl sclera ENMT: nl external ears & nose, nl lips & teeth, nl nasal mucosa & septum Neck: non-tender, supple Respiratory: clear to auscultation, normal air movement Cardiovascular: nl pulses, regular rate and rhythm Gastrointestinal: nl liver, spleen, non-tender, soft Musculoskeletal: nl extremities to inspection, nl gait and stance Extremities: normal pulses 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: GAUGE AND INSTRUMENT 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 II-XII intact, nl mental status, nl speech, nl strength Skin: nl turgor, No rash or lesions Lymph: nl lymph nodes Results Result Diagram: 12/12/1622 12/12/16 0822 Results 24 hrs Laboratory Tests Test 12/12/16 08:22 White Blood Count 5.3 Red Blood Count 2.78 L Hemoglobin 8.8 L Hematocrit 27.4 L Mean Corpuscular Volume 98.6 Mean Corpuscular Hemoglobin 31.7 Mean Corpuscular Hemoglobin Concent 32.1 Red Cell Distribution Width 18.4 H Platelet Count 161 Mean Platelet Volume 10.9 H Neutrophils % 74.4 Lymphocytes % 12.5 L Monocytes % 9.1 Eosinophils % 3.6 Basophils % 0.2 Nucleated Red Blood Cells % 0.0 Neutrophils # (Manual) 4 Lymphocytes # 0.7 L Monocytes # 0.5 Eosinophils # 0.2 Basophils # 0.0 Nucleated Red Blood Cells # 0.0 Sodium Level 136 Potassium Level 5.0 Chloride Level 93 L Carbon Dioxide Level 28 Anion Gap 20 H Blood Urea Nitrogen 41 #H Creatinine 5.25 #H Glucose Level 66 L Calcium Level 8.6 Medications Medications Current Medications Acetaminophen (Tylenol Tab) 650 mg Q4H PRN PO PAIN AND OR ELEVATED TEMP; Start 12/02/16 at 23:00 Hydralazine HCl (Apresoline) 25 mg Q6H PRN PO SBP >170; Start 12/02/16 at 23:00 Morphine Sulfate (morphine) 2 mg Q4H PRN IV MODERATE PAIN LEVEL 4-6 Last administered on 12/12/16 09:08; Admin Dose 2 MG; Start 12/02/16 at 23:00 Diphenhydramine HCl (Benadryl) 25 mg Q6H PRN IV Itching Last administered on 10:20; Admin Dose 25 MG; Start 12/02/16 at 23:00 Ondansetron HCl (Zofran Inj) 4 mg Q6H PRN IV NAUSEA AND/OR VOMITING Last administered on 12/11/16 15:25; Admin Dose 4 MG; Start 12/03/16 at 19:30 Cinacalcet (Sensipar) 90 mg BID PO Last administered on 12/12/16 09:10; Admin Dose 90 MG; Start 12/03/16 at 21:30 Pantoprazole (Protonix Tab) 40 mg DAILY@06 PO Last administered on 12/12/16 06 :53; Admin Dose 40 MG; Start 12/04/16 at 14:00 Ibuprofen (Motrin) 600 mg Q8 PO Last administered on 12/12/16 06:52; Admin Dose 600 MG; Start 12/05/16 at 22:00 Gabapentin (Neurontin) 100 mg TID PO Last administered on 12/12/16 09:10; Admin Dose 100 MG; Start 12/06/16 at 21:00 Lubiprostone (Amitiza) 24 mcg BID PO Last administered on 12/12/16 09:10; Admin Dose 24 MCG; Start 12/07/16 at 16:30 Mineral Oil (Fleet Mineral Oil Enema) 133 ml DAILY [place] ; Start 12/09/16 at 09:00 Metoclopramide HCl (Reglan) 5 mg Q8 IV Last administered on 12/12/16 06:51; Admin Dose 5 MG; Start 12/10/16 at 14:00 Oxycodone/ Acetaminophen 1 tab 1 tab Q6H PRN PO PAIN LEVEL 6-10 Last administered on 12/12/16 06:49; Admin Dose 1 TAB; Start 12/11/16 at 15:00 Sodium Chloride (NS) 500 ml @ 500 mls/hr Q1H ONCE IV ; Start 12/12/16 at 12:00 ; Stop 12/12/16 at 12:59; Status UNFREDERIC DANG MD Dec 12, 2016 11:45
[2016-12-12] MEDS ORDERED: SOD CHLORIDE 0.9% 500 ML IV ONE (12:00)
--- NOTE | 2016-12-12 14:06 | CONS ---
Date/Time of Note Date/Time of Note DATE: 12/12/16 TIME: 14:04 Assessment/Plan Assessment/Plan Problems: (1) Secondary hyperparathyroidism of renal origin Status: Chronic Comment: The hypercalcemia has resolved postoperatively rather briskly. We will it was a tedious decision to go into this young lady's neck the surgeon has. We have done an outstanding job. (2) Painful thyroid Status: Acute Comment: Symptoms are resolving. 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 Status: Chronic Comment: She is clinically euthyroid I will check her lab tests Consultation Date/Type/Reason Admit Date/Time Dec 02, 2016 at 17:19 Initial Consult Date 12/04/16 Type of Consultation: Endocrinology Reason for Consultation Hypercalcemia with hyperparathyroidism and thyroid nodules Referring Provider: LUANNE WALTER MD 24 HR Interval Summary Free Text/Dictation Patient reports that while she has pain at the surgical site her other pain in the neck has improved and her swallowing has improved Constitutional: no complaints (Denies fevers chills or sweats) Detailed Summary Respiratory: no complaints Cardiovascular: no complaints Gastrointestinal: no complaints Genitourinary: no complaints Exam/Review of Systems Vital Signs Vitals Vital Signs Date Time Temp Pulse Resp B/P Pulse Ox O2 Delivery O2 Flow Rate FiO2 12/12/16 11:45 99.0 103 18 84/47 98 12/11/16 15:27 Nasal Cannula 2.0 Intake and Output 12/11/16 12/11/16 12/12/16 15:00 23:00 07:00 Intake Total 700 ml 700 ml Output Total 10 ml 4000 ml Balance 690 ml -3300 ml Exam Constitutional: alert, oriented Neck: non-tender, supple Respiratory: clear to auscultation, normal air movement Cardiovascular: nl pulses, regular rate and rhythm Results Result Diagram: 12/12/16 0822 12/12/16 0822 Results 24 hrs Laboratory Tests Test 12/12/16 08:22 White Blood Count 5.3 Red Blood Count 2.78 L Hemoglobin 8.8 L Hematocrit 27.4 L Mean Corpuscular Volume 98.6 Mean Corpuscular Hemoglobin 31.7 Mean Corpuscular Hemoglobin Concent 32.1 Red Cell Distribution Width 18.4 H Platelet Count 161 Mean Platelet Volume 10.9 H Neutrophils % 74.4 Lymphocytes % 12.5 L Monocytes % 9.1 Eosinophils % 3.6 Basophils % 0.2 Nucleated Red Blood Cells % 0.0 Neutrophils # (Manual) 4 Lymphocytes # 0.7 L Monocytes # 0.5 Eosinophils # 0.2 Basophils # 0.0 Nucleated Red Blood Cells # 0.0 Sodium Level 136 Potassium Level 5.0 Chloride Level 93 L Carbon Dioxide Level 28 Anion Gap 20 H Blood Urea Nitrogen 41 #H Creatinine 5.25 #H Glucose Level 66 L Calcium Level 8.6 Medications Medications Current Medications Acetaminophen (Tylenol Tab) 650 mg Q4H PRN PO PAIN AND OR ELEVATED TEMP; Start 12/02/16 at 23:00 Hydralazine HCl (Apresoline) 25 mg Q6H PRN PO SBP >170; Start 12/02/16 at 23:00 Morphine Sulfate (morphine) 2 mg Q4H PRN IV MODERATE PAIN LEVEL 4-6 Last administered on 12/12/16 13:13; Admin Dose 2 MG; Start 12/02/16 at 23:00 Diphenhydramine HCl (Benadryl) 25 mg Q6H PRN IV Itching Last administered on 10:20; Admin Dose 25 MG; Start 12/02/16 at 23:00 Ondansetron HCl (Zofran Inj) 4 mg Q6H PRN IV NAUSEA AND/OR VOMITING Last administered on 12/11/16 15:25; Admin Dose 4 MG; Start 12/03/16 at 19:30 Cinacalcet (Sensipar) 90 mg BID PO Last administered on 12/12/16 09:10; Admin Dose 90 MG; Start 12/03/16 at 21:30 Pantoprazole (Protonix Tab) 40 mg DAILY@06 PO Last administered on 12/12/16 06 :53; Admin Dose 40 MG; Start 12/04/16 at 14:00 Ibuprofen (Motrin) 600 mg Q8 PO Last administered on 12/12/16 13:14; Admin Dose 600 MG; Start 12/05/16 at 22:00 Gabapentin (Neurontin) 100 mg TID PO Last administered on 12/12/16 13:14; Admin Dose 100 MG; Start 12/06/16 at 21:00 Lubiprostone (Amitiza) 24 mcg BID PO Last administered on 12/12/16 09:10; Admin Dose 24 MCG; Start 12/07/16 at 16:30 Mineral Oil (Fleet Mineral Oil Enema) 133 ml DAILY [place] ; Start 12/09/16 at 09:00 Metoclopramide HCl (Reglan) 5 mg Q8 IV Last administered on 12/12/16 13:14; Admin Dose 5 MG; Start 12/10/16 at 14:00 Oxycodone/ Acetaminophen (Percocet (5/ 325)) 1 tab Q6H PRN PO PAIN LEVEL 6-10 Last administered on 12/12/16 06:49; Admin Dose 1 TAB; Start 12/11/16 at 15:00 ESEQUIEL NAPOLES MD Dec 12, 2016 14:06
--- NOTE | 2016-12-12 15:05 | CONS ---
Date/Time of Note Date/Time of Note DATE: 12/12/16 TIME: 14:57 Assessment/Plan Assessment/Plan Additional Assessment/Plan 1. S tach : ? 2nd to low BP and hyperthyroid. 2. Hypotension, borderline- well Rx -- STABLe, no symptoms 3. Goiter multinodular- s/p surgery yesterday 4. End-stage renal disease on hemodialysis- Rx with renal team 5. Hyperkalemia resolved- better - IMPROVED 6. Abdominal pain- better Consultation Date/Type/Reason Admit Date/Time Dec 02, 2016 at 17:19 Initial Consult Date 12/04/16 Type of Consultation: Endocrinology Referring Provider: LUANNE WALTER MD 24 HR Interval Summary Free Text/Dictation ROS: No fever, no chills, no nausea, no vomiting, no diarrhea/constipation No recent weight changes No edema c/o palpitations especially when walking No chest pain, no PND, no SOB No dizziness, blurred vision No thirst, no heat or cold intolerance Exam/Review of Systems Vital Signs Vitals BP changed to 108/55 after fluid bolus. HR =108 Vital Signs Date Time Temp Pulse Resp B/P Pulse Ox O2 Delivery O2 Flow Rate FiO2 12/12/16 11:45 99.0 103 18 84/47 98 12/11/16 15:27 Nasal Cannula 2.0 Intake and Output 12/11/16 12/11/16 12/12/16 15:00 23:00 07:00 Intake Total 700 ml 700 ml Output Total 10 ml 4000 ml Balance 690 ml -3300 ml Exam General: WN/WD HEENT: Unicetric/atraumatic/ no assymetry NECK: JVD not elevated, no thyromegaly, carotids revealed normal upstrokes Lymph: no lymphadenopathy HEART: regular with no S3, I/ systolic murmur at apex LUNGS: clear ABD: soft, NT, ND, +BS, no organomegaly Neuro: no deficit SKIN: no leisons EXT: no edema Results Result Diagram: 12/12/16 0822 12/12/16 0822 Results 24 hrs Laboratory Tests Test 12/12/16 08:22 White Blood Count 5.3 Red Blood Count 2.78 L Hemoglobin 8.8 L Hematocrit 27.4 L Mean Corpuscular Volume 98.6 Mean Corpuscular Hemoglobin 31.7 Mean Corpuscular Hemoglobin Concent 32.1 Red Cell Distribution Width 18.4 H Platelet Count 161 Mean Platelet Volume 10.9 H Neutrophils % 74.4 Lymphocytes % 12.5 L Monocytes % 9.1 Eosinophils % 3.6 Basophils % 0.2 Nucleated Red Blood Cells % 0.0 Neutrophils # (Manual) 4 Lymphocytes # 0.7 L Monocytes # 0.5 Eosinophils # 0.2 Basophils # 0.0 Nucleated Red Blood Cells # 0.0 Sodium Level 136 Potassium Level 5.0 Chloride Level 93 L Carbon Dioxide Level 28 Anion Gap 20 H Blood Urea Nitrogen 41 #H Creatinine 5.25 #H Glucose Level 66 L Calcium Level 8.6 Medications Medications Current Medications Acetaminophen (Tylenol Tab) 650 mg Q4H PRN PO PAIN AND OR ELEVATED TEMP; Start 12/02/16 at 23:00 Hydralazine HCl (Apresoline) 25 mg Q6H PRN PO SBP >170; Start 12/02/16 at 23:00 Morphine Sulfate (morphine) 2 mg Q4H PRN IV MODERATE PAIN LEVEL 4-6 Last administered on 12/12/16 13:13; Admin Dose 2 MG; Start 12/02/16 at 23:00 Diphenhydramine HCl (Benadryl) 25 mg Q6H PRN IV Itching Last administered on 10:20; Admin Dose 25 MG; Start 12/02/16 at 23:00 Ondansetron HCl (Zofran Inj) 4 mg Q6H PRN IV NAUSEA AND/OR VOMITING Last administered on 12/11/16 15:25; Admin Dose 4 MG; Start 12/03/16 at 19:30 Cinacalcet (Sensipar) 90 mg BID PO Last administered on 12/12/16 09:10; Admin Dose 90 MG; Start 12/03/16 at 21:30 Pantoprazole (Protonix Tab) 40 mg DAILY@06 PO Last administered on 12/12/16 06 :53; Admin Dose 40 MG; Start 12/04/16 at 14:00 Ibuprofen (Motrin) 600 mg Q8 PO Last administered on 12/12/16 13:14; Admin Dose 600 MG; Start 12/05/16 at 22:00 Gabapentin (Neurontin) 100 mg TID PO Last administered on 12/12/16 13:14; Admin Dose 100 MG; Start 12/06/16 at 21:00 Lubiprostone (Amitiza) 24 mcg BID PO Last administered on 12/12/16 09:10; Admin Dose 24 MCG; Start 12/07/16 at 16:30 Mineral Oil (Fleet Mineral Oil Enema) 133 ml DAILY [place] ; Start 12/09/16 at 09:00 Metoclopramide HCl (Reglan) 5 mg Q8 IV Last administered on 12/12/16 13:14; Admin Dose 5 MG; Start 12/10/16 at 14:00 Oxycodone/ Acetaminophen (Percocet (5/ 325)) 1 tab Q6H PRN PO PAIN LEVEL 6-10 Last administered on 12/12/16 06:49; Admin Dose 1 TAB; Start 12/11/16 at 15:00 ISAEL VALENZUELA MD Dec 12, 2016 15:05
--- NOTE | 2016-12-12 16:51 | CONS ---
Date/Time of Note Date/Time of Note DATE: 12/12/16 TIME: 16:50 Assessment/Plan Assessment/Plan Additional Assessment/Plan 1. End-stage kidney disease on hemodialysis. 2. Hyperparathyroidism, secondary, severe, with hypercalcemia and elevated alkaline phosphatase= Renal bone disease 3. Anemia of chronic renal disease. 4. Thyromegaly 5. Dysphagia 6. Hyperkalemia S/p HD yesterday Hyperkalemia resolved Calcium OK Cont to monitor Volume status, Electrolytes and BP closely Low K/Renal Diet Next HD wednesday cont current Rx and plan Consultation Date/Type/Reason Admit Date/Time Dec 02, 2016 at 17:19 Initial Consult Date 12/04/16 Type of Consultation: Renal Referring Provider: LUANNE WALTER MD 24 HR Interval Summary Free Text/Dictation S/p Surgery Constitutional: No requiring O2 Exam/Review of Systems Vital Signs Vitals Vital Signs Date Time Temp Pulse Resp B/P Pulse Ox O2 Delivery O2 Flow Rate FiO2 12/12/16 11:45 99.0 103 18 84/47 98 12/11/16 15:27 Nasal Cannula 2.0 Intake and Output 12/11/16 12/11/16 12/12/16 15:00 23:00 07:00 Intake Total 700 ml 700 ml Output Total 10 ml 4000 ml Balance 690 ml -3300 ml Exam Constitutional: alert, No distress ENMT: mucosa pink and moist Neck: No jvd Respiratory: clear to auscultation Cardiovascular: regular rate and rhythm, No edema Gastrointestinal: non-tender, soft Extremities: No pitting pedal edema 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: RADIO COMMUNICATION COORDINATOR II-XII intact, nl mental status, No lethargic Skin: No diaphoresis Results Result Diagram: 12/12/1622 12/12/16 0822 Results 24 hrs Laboratory Tests Test 12/12/16 08:22 White Blood Count 5.3 Red Blood Count 2.78 L Hemoglobin 8.8 L Hematocrit 27.4 L Mean Corpuscular Volume 98.6 Mean Corpuscular Hemoglobin 31.7 Mean Corpuscular Hemoglobin Concent 32.1 Red Cell Distribution Width 18.4 H Platelet Count 161 Mean Platelet Volume 10.9 H Neutrophils % 74.4 Lymphocytes % 12.5 L Monocytes % 9.1 Eosinophils % 3.6 Basophils % 0.2 Nucleated Red Blood Cells % 0.0 Neutrophils # (Manual) 4 Lymphocytes # 0.7 L Monocytes # 0.5 Eosinophils # 0.2 Basophils # 0.0 Nucleated Red Blood Cells # 0.0 Sodium Level 136 Potassium Level 5.0 Chloride Level 93 L Carbon Dioxide Level 28 Anion Gap 20 H Blood Urea Nitrogen 41 #H Creatinine 5.25 #H Glucose Level 66 L Calcium Level 8.6 Medications Medications Current Medications Acetaminophen (Tylenol Tab) 650 mg Q4H PRN PO PAIN AND OR ELEVATED TEMP; Start 12/02/16 at 23:00 Hydralazine HCl (Apresoline) 25 mg Q6H PRN PO SBP >170; Start 12/02/16 at 23:00 Morphine Sulfate (morphine) 2 mg Q4H PRN IV MODERATE PAIN LEVEL 4-6 Last administered on 12/12/16 13:13; Admin Dose 2 MG; Start 12/02/16 at 23:00 Diphenhydramine HCl (Benadryl) 25 mg Q6H PRN IV Itching Last administered on 16:44; Admin Dose 25 MG; Start 12/02/16 at 23:00 Ondansetron HCl (Zofran Inj) 4 mg Q6H PRN IV NAUSEA AND/OR VOMITING Last administered on 12/11/16 15:25; Admin Dose 4 MG; Start 12/03/16 at 19:30 Cinacalcet (Sensipar) 90 mg BID PO Last administered on 12/12/16 09:10; Admin Dose 90 MG; Start 12/03/16 at 21:30 Pantoprazole (Protonix Tab) 40 mg DAILY@06 PO Last administered on 12/12/16 06 :53; Admin Dose 40 MG; Start 12/04/16 at 14:00 Ibuprofen (Motrin) 600 mg Q8 PO Last administered on 12/12/16 13:14; Admin Dose 600 MG; Start 12/05/16 at 22:00 Gabapentin (Neurontin) 100 mg TID PO Last administered on 12/12/16 13:14; Admin Dose 100 MG; Start 12/06/16 at 21:00 Lubiprostone (Amitiza) 24 mcg BID PO Last administered on 12/12/16 09:10; Admin Dose 24 MCG; Start 12/07/16 at 16:30 Mineral Oil (Fleet Mineral Oil Enema) 133 ml DAILY [place] ; Start 12/09/16 at 09:00 Metoclopramide HCl (Reglan) 5 mg Q8 IV Last administered on 12/12/16 13:14; Admin Dose 5 MG; Start 12/10/16 at 14:00 Oxycodone/ Acetaminophen (Percocet (5/ 325)) 1 tab Q6H PRN PO PAIN LEVEL 6-10 Last administered on 12/12/16 06:49; Admin Dose 1 TAB; Start 12/11/16 at 15:00 JUANJO TATUM MD Dec 12, 2016 16:51
[2016-12-12] MEDS: MINERAL OIL 133 ML ENEMA PR SCH (18:41)
--- NOTE | 2016-12-12 19:58 | PN ---
DATE: 12/12/2016 SUBJECTIVE: She states that she is better. She has had some rice and tortilla today. She complains of pain and discharge from the decubital fossa on the right side at the site of the previous IV. OBJECTIVE: GENERAL: She is in no acute distress. VITAL SIGNS: Temperature 99, heart rate 103, respirations 18, blood pressure 84/47, saturation 98% on room air. HEART: Regular. NECK: Slight swelling at the site of operation. HEENT: The patient's voice is normal. Right antecubital area, there is some swelling and some tenderness, some cellulitis and phelebitis. LABORATORY: WBC 5300 with 74% segmented. Hemoglobin 8.8, hematocrit 27.4. Chemistry: Calcium is 5. BUN 21, creatinine 0.2. ASSESSMENT: This is a 51-year-old status post operation of neck by __Carmen with removal of parathyroid and part of the left thyroid. Pathology report is not back yet. The patient has phelebitis and cellulitis in right antecubital area. PLAN: 1. Apply thomas over the antecubital fossa. 2. Continue current care. Dictated By: Felice Rodrigues MD /facundo/marifer /Document#: [id number] DEYVI
[2016-12-13] VITALS (19 sets, daily range): BP systolic 95–123; BP diastolic 53–68; PULSE 100–120; RESP 16–19
[2016-12-13] MEDS: morphine 2 MG INJ IV PRN ×4 (03:24→20:45)
[2016-12-13] MEDS: METOCLOPRAMIDE 10 MG INJ IV SCH ×3 (05:10→23:05)
[2016-12-13] MEDS: PANTOPRAZOLE (EC) 40 MG TAB PO SCH (05:11)
[2016-12-13] MEDS: IBUPROFEN 600 MG TAB PO SCH ×4 (05:11→23:06)
[2016-12-13] MEDS: DIPHENHYDRAMINE 50 MG INJ IV PRN ×4 (05:12→23:04)
[2016-12-13 08:01] LABS: ALBUMIN 3.7 g/dl (3.3-4.9); ALBUMIN/GLOBULIN RATIO 1.48; CALCIUM 9.1 mg/dl (8.4-10.2); CREATININE 7.17 mg/dl (0.44-1.00); TOTAL PROTEIN 6.2 g/dl (6.1-8.1)
[2016-12-13 08:16] LABS: FREE T3 9.62 pg/ml (2.77-5.27)
[2016-12-13 08:17] LABS: POTASSIUM 6.1 mmol/L (3.5-5.1)
[2016-12-13 08:30] LABS: THYROID STIMULATING HORMONE 0.317 MIU/L (0.465-4.680)
[2016-12-13] MEDS: GABAPENTIN 100 MG CAP PO SCH ×3 (09:06→20:44)
[2016-12-13] MEDS: SEVELAMER 800 MG TAB PO SCH ×3 (09:06→17:10)
[2016-12-13] MEDS: LUBIPROSTONE 24 MCG CAP PO SCH ×2 (09:06→20:45)
[2016-12-13] MEDS ORDERED: ALBUMIN HUMAN 25% 100 ML IV PRN (11:00)
--- NOTE | 2016-12-13 12:03 | PN ---
Date/Time of Note Date/Time of Note DATE: 12/13/16 TIME: 12:02 Assessment/Plan VTE Prophylaxis VTE Prophylaxis Intervention: other Lines/Catheters IV [facility]ter Type (from [facility]): Peripheral IV Urinary Cath still in place: No Assessment/Plan Chief Complaint/Hosp Course -Large left compressive parathyroid adenoma. S/p partial left thyroid lobectomy , left upper and lower parathyroidectomy by Dr Morales. -Dysphagia and odynophagia secondary to #1. Dr. Smallwood is following in gastroenterology consultation. Patient status post recent EGD at [facility]. -Thyrotoxicosis with multinodular goiter, Dr. Damon is following in endocrinology consultation. Dr. Red is following in general surgery consultation. -History of hyperparathyroidism -Hemodialysis dependent end-stage renal disease, Dr. Silverio following in nephrology , continue hemodialysis per nephrology. -Central stenosis, Dr. Francisco is following in vascular surgery consultation. Status post left upper extremity fistulogram. Problems: Subjective 24 Hr Interval Summary Free Text/Dictation Patient feels tire, denies any pain Exam/Review of Systems Vital Signs Vitals Vital Signs Date Time Temp Pulse Resp B/P Pulse Ox O2 Delivery O2 Flow Rate FiO2 12/13/16 08:36 106 12/13/16 08:12 98.0 18 99/53 100 12/13/16 03:28 Nasal Cannula 2.0 Intake and Output 12/12/16 12/12/16 12/13/16 15:00 23:00 07:00 Intake Total 800 ml 200 ml Balance 800 ml 200 ml Exam Constitutional: well developed Head: atraumatic, normocephalic Neck: supple Respiratory: diminished breath sounds Cardiovascular: regular rate and rhythm Gastrointestinal: non-tender, soft Extremities: normal pulses Results Result Diagram: 12/12/16 0822 12/13/16 0704 Results 24 hrs Laboratory Tests Test 12/13/16 07:04 Sodium Level 137 Potassium Level 6.1 *H Chloride Level 90 L Carbon Dioxide Level 27 Anion Gap 26 H Blood Urea Nitrogen 65 H Creatinine 7.17 H Glucose Level 66 L Calcium Level 9.1 Ionized Calcium (Measured) 1.1 Total Bilirubin 0.0 L Direct Bilirubin 0.00 Indirect Bilirubin 0.0 Aspartate Amino Transf (AST/SGOT) 17 Alanine Aminotransferase (ALT/SGPT) 17 Alkaline Phosphatase 719 H Total Protein 6.2 Albumin 3.7 Globulin 2.50 Albumin/Globulin Ratio 1.48 Thyroid Stimulating Hormone (TSH) 0.317 L Free Thyroxine 3.13 H Free Triiodothyronine (T3) pg/mL 9.62 H Medications Medications Current Medications Acetaminophen (Tylenol Tab) 650 mg Q4H PRN PO PAIN AND OR ELEVATED TEMP; Start 12/02/16 at 23:00 Hydralazine HCl (Apresoline) 25 mg Q6H PRN PO SBP >170; Start 12/02/16 at 23:00 Morphine Sulfate (morphine) 2 mg Q4H PRN IV MODERATE PAIN LEVEL 4-6 Last administered on 12/13/16 09:04; Admin Dose 2 MG; Start 12/02/16 at 23:00 Diphenhydramine HCl (Benadryl) 25 mg Q6H PRN IV Itching Last administered on 10:58; Admin Dose 25 MG; Start 12/02/16 at 23:00 Ondansetron HCl (Zofran Inj) 4 mg Q6H PRN IV NAUSEA AND/OR VOMITING Last administered on 12/11/16 15:25; Admin Dose 4 MG; Start 12/03/16 at 19:30 Pantoprazole (Protonix Tab) 40 mg DAILY@06 PO Last administered on 12/13/16 05 :11; Admin Dose 40 MG; Start 12/04/16 at 14:00 Ibuprofen (Motrin) 600 mg Q8 PO Last administered on 12/13/16 05:11; Admin Dose 600 MG; Start 12/05/16 at 22:00 Gabapentin (Neurontin) 100 mg TID PO Last administered on 12/13/16 09:06; Admin Dose 100 MG; Start 12/06/16 at 21:00 Lubiprostone (Amitiza) 24 mcg BID PO Last administered on 12/13/16 09:06; Admin Dose 24 MCG; Start 12/07/16 at 16:30 Mineral Oil (Fleet Mineral Oil Enema) 133 ml DAILY [place] Last administered on 12/12 18:41; Admin Dose 133 ML; Start 12/09/16 at 09:00 Metoclopramide HCl (Reglan) 5 mg Q8 IV Last administered on 12/13/16 05:10; Admin Dose 5 MG; Start 12/10/16 at 14:00 Oxycodone/ Acetaminophen (Percocet (5/ 325)) 1 tab Q6H PRN PO PAIN LEVEL 6-10 Last administered on 12/12/16 06:49; Admin Dose 1 TAB; Start 12/11/16 at 15:00 ANGELY PANG Dec 13, 2016 12:03
--- NOTE | 2016-12-13 13:25 | PN ---
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 This will need to be observed although she may end up needing further treatment. Given the apparent hyperthyroid multinodular goiter before we make any final decisions about 3 or therapeutic treatment such as radioactive iodine will need the final path report from surgery (2) Secondary hyperparathyroidism of renal origin Status: Chronic Comment: Also been labeled secondary hyperparathyroidism is possibly this may have been a primary. Postoperatively her calciums have normalized and remained normal. Regardless we are indented to Dr. Morales for helping (3) End stage kidney disease Status: Chronic Comment: As per nephrology Assessment/Plan ENT complaints-observe Subjective 24 Hr Interval Summary Free Text/Dictation Patient reports pain at the surgical site on her neck. In addition she reports this morning the onset of postnasal drip sinus pain and some epistaxis Constitutional: no complaints (Denies fevers chills or sweats) ENT: bleeding, discharge Respiratory: no complaints Cardiovascular: no complaints Gastrointestinal: no complaints Exam/Review of Systems Vital Signs Vitals Vital Signs Date Time Temp Pulse Resp B/P Pulse Ox O2 Delivery O2 Flow Rate FiO2 12/13/16 12:55 106 12/13/16 12:35 12 12/13/16 12:00 98.5 111/66 96 12/13/16 03:28 Nasal Cannula 2.0 Intake and Output 12/12/16 12/12/16 12/13/16 15:00 23:00 07:00 Intake Total 800 ml 200 ml Balance 800 ml 200 ml Exam Constitutional: alert, oriented Neck: other (Fresh surgical scar in the midline), supple Respiratory: clear to auscultation, normal air movement Cardiovascular: nl pulses, regular rate and rhythm Results Result Diagram: 12/12/16 0822 12/13/16 0704 Results 24 hrs Laboratory Tests Test 12/13/16 07:04 Sodium Level 137 Potassium Level 6.1 *H Chloride Level 90 L Carbon Dioxide Level 27 Anion Gap 26 H Blood Urea Nitrogen 65 H Creatinine 7.17 H Glucose Level 66 L Calcium Level 9.1 Ionized Calcium (Measured) 1.1 Total Bilirubin 0.0 L Direct Bilirubin 0.00 Indirect Bilirubin 0.0 Aspartate Amino Transf (AST/SGOT) 17 Alanine Aminotransferase (ALT/SGPT) 17 Alkaline Phosphatase 719 H Total Protein 6.2 Albumin 3.7 Globulin 2.50 Albumin/Globulin Ratio 1.48 Thyroid Stimulating Hormone (TSH) 0.317 L Free Thyroxine 3.13 H Free Triiodothyronine (T3) pg/mL 9.62 H Medications Medications Current Medications Acetaminophen (Tylenol Tab) 650 mg Q4H PRN PO PAIN AND OR ELEVATED TEMP; Start 12/02/16 at 23:00 Hydralazine HCl (Apresoline) 25 mg Q6H PRN PO SBP >170; Start 12/02/16 at 23:00 Morphine Sulfate (morphine) 2 mg Q4H PRN IV MODERATE PAIN LEVEL 4-6 Last administered on 12/13/16 09:04; Admin Dose 2 MG; Start 12/02/16 at 23:00 Diphenhydramine HCl (Benadryl) 25 mg Q6H PRN IV Itching Last administered on 10:58; Admin Dose 25 MG; Start 12/02/16 at 23:00 Ondansetron HCl (Zofran Inj) 4 mg Q6H PRN IV NAUSEA AND/OR VOMITING Last administered on 12/11/16 15:25; Admin Dose 4 MG; Start 12/03/16 at 19:30 Pantoprazole (Protonix Tab) 40 mg DAILY@06 PO Last administered on 12/13/16 05 :11; Admin Dose 40 MG; Start 12/04/16 at 14:00 Ibuprofen (Motrin) 600 mg Q8 PO Last administered on 12/13/16 05:11; Admin Dose 600 MG; Start 12/05/16 at 22:00 Gabapentin (Neurontin) 100 mg TID PO Last administered on 12/13/16 09:06; Admin Dose 100 MG; Start 12/06/16 at 21:00 Lubiprostone (Amitiza) 24 mcg BID PO Last administered on 12/13/16 09:06; Admin Dose 24 MCG; Start 12/07/16 at 16:30 Mineral Oil (Fleet Mineral Oil Enema) 133 ml DAILY [place] Last administered on 12/12 18:41; Admin Dose 133 ML; Start 12/09/16 at 09:00 Metoclopramide HCl (Reglan) 5 mg Q8 IV Last administered on 12/13/16 05:10; Admin Dose 5 MG; Start 12/10/16 at 14:00 Oxycodone/ Acetaminophen (Percocet (5/ 325)) 1 tab Q6H PRN PO PAIN LEVEL 6-10 Last administered on 12/12/16 06:49; Admin Dose 1 TAB; Start 12/11/16 at 15:00 ESEQUIEL NAPOLES MD Dec 13, 2016 13:24
--- NOTE | 2016-12-13 13:25 | CONS ---
Date/Time of Note Date/Time of Note DATE: 12/13/16 TIME: 13:20 Assessment/Plan Assessment/Plan Additional Assessment/Plan 1. S tach : ? 2nd to low BP and hyperthyroid. 2. Hypotension, borderline- well Rx -- STABLe, no symptoms 3. Goiter multinodular- s/p surgery 12/11/16 4. End-stage renal disease on hemodialysis now 5. Hyperkalemia resolved- K=6.1 today, being dialysed now 6. Abdominal pain- better 7. Nose bleed today ? 2nd to oxygen causing dryness 8. Anemia Consultation Date/Type/Reason Admit Date/Time Dec 02, 2016 at 17:19 Initial Consult Date 12/04/16 Type of Consultation: Renal Referring Provider: LUANNE WALTER MD 24 HR Interval Summary Free Text/Dictation c/o nose bleeding and spitting some blood today Also c/o hoarse voice: ? 2nd to thyroid sx ROS: No fever, no chills, no nausea, no vomiting, no diarrhea/constipation No recent weight changes No edema, no palpitations No chest pain, no PND, no SOB No dizziness, blurred vision No thirst, no heat or cold intolerance Tele: Sinus tach Exam/Review of Systems Vital Signs Vitals Vital Signs Date Time Temp Pulse Resp B/P Pulse Ox O2 Delivery O2 Flow Rate FiO2 12/13/16 12:55 106 12/13/16 12:35 12 12/13/16 12:00 98.5 111/66 96 12/13/16 03:28 Nasal Cannula 2.0 Intake and Output 12/12/16 12/12/16 12/13/16 15:00 23:00 07:00 Intake Total 800 ml 200 ml Balance 800 ml 200 ml Exam General: WN/WD HEENT: Unicetric/atraumatic/ no assymetry NECK: JVD not elevated, no thyromegaly, carotids revealed normal upstrokes Lymph: no lymphadenopathy HEART: regular with no S3, I/ systolic murmur at apex LUNGS: clear ABD: soft, NT, ND, +BS, no organomegaly Neuro: no deficit SKIN: no leisons EXT: no edema Results Result Diagram: 12/12/16 0822 12/13/16 0704 Results 24 hrs Laboratory Tests Test 12/13/16 07:04 Sodium Level 137 Potassium Level 6.1 *H Chloride Level 90 L Carbon Dioxide Level 27 Anion Gap 26 H Blood Urea Nitrogen 65 H Creatinine 7.17 H Glucose Level 66 L Calcium Level 9.1 Ionized Calcium (Measured) 1.1 Total Bilirubin 0.0 L Direct Bilirubin 0.00 Indirect Bilirubin 0.0 Aspartate Amino Transf (AST/SGOT) 17 Alanine Aminotransferase (ALT/SGPT) 17 Alkaline Phosphatase 719 H Total Protein 6.2 Albumin 3.7 Globulin 2.50 Albumin/Globulin Ratio 1.48 Thyroid Stimulating Hormone (TSH) 0.317 L Free Thyroxine 3.13 H Free Triiodothyronine (T3) pg/mL 9.62 H Medications Medications Current Medications Acetaminophen (Tylenol Tab) 650 mg Q4H PRN PO PAIN AND OR ELEVATED TEMP; Start 12/02/16 at 23:00 Hydralazine HCl (Apresoline) 25 mg Q6H PRN PO SBP >170; Start 12/02/16 at 23:00 Morphine Sulfate (morphine) 2 mg Q4H PRN IV MODERATE PAIN LEVEL 4-6 Last administered on 12/13/16 09:04; Admin Dose 2 MG; Start 12/02/16 at 23:00 Diphenhydramine HCl (Benadryl) 25 mg Q6H PRN IV Itching Last administered on 10:58; Admin Dose 25 MG; Start 12/02/16 at 23:00 Ondansetron HCl (Zofran Inj) 4 mg Q6H PRN IV NAUSEA AND/OR VOMITING Last administered on 12/11/16 15:25; Admin Dose 4 MG; Start 12/03/16 at 19:30 Pantoprazole (Protonix Tab) 40 mg DAILY@06 PO Last administered on 12/13/16 05 :11; Admin Dose 40 MG; Start 12/04/16 at 14:00 Ibuprofen (Motrin) 600 mg Q8 PO Last administered on 12/13/16 05:11; Admin Dose 600 MG; Start 12/05/16 at 22:00 Gabapentin (Neurontin) 100 mg TID PO Last administered on 12/13/16 09:06; Admin Dose 100 MG; Start 12/06/16 at 21:00 Lubiprostone (Amitiza) 24 mcg BID PO Last administered on 12/13/16 09:06; Admin Dose 24 MCG; Start 12/07/16 at 16:30 Mineral Oil (Fleet Mineral Oil Enema) 133 ml DAILY [place] Last administered on 12/12 18:41; Admin Dose 133 ML; Start 12/09/16 at 09:00 Metoclopramide HCl (Reglan) 5 mg Q8 IV Last administered on 12/13/16 05:10; Admin Dose 5 MG; Start 12/10/16 at 14:00 Oxycodone/ Acetaminophen (Percocet (5/ 325)) 1 tab Q6H PRN PO PAIN LEVEL 6-10 Last administered on 12/12/16 06:49; Admin Dose 1 TAB; Start 12/11/16 at 15:00 ISAEL VALENZUELA MD Dec 13, 2016 13:25
--- NOTE | 2016-12-13 15:06 | CONS ---
Date/Time of Note Date/Time of Note DATE: 12/13/16 TIME: 15:04 Assessment/Plan Assessment/Plan Additional Assessment/Plan 1. End-stage kidney disease on hemodialysis. 2. Hyperparathyroidism, secondary, severe, with hypercalcemia and elevated alkaline phosphatase= Renal bone disease S/p Partial Parathyroidectomy 3. Anemia of chronic renal disease. 4. Thyromegaly 5. Dysphagia 6. Hyperkalemia S/p HD this afternoon Repeat BMP in am CORINE ordered after HD. Calcium OK Cont to monitor Volume status, Electrolytes and BP closely Low K/Renal Diet cont current Rx and plan Re-assess need for HD tomorrow. Consultation Date/Type/Reason Admit Date/Time Dec 02, 2016 at 17:19 Initial Consult Date 12/04/16 Type of Consultation: Renal Referring Provider: LUANNE WALTER MD 24 HR Interval Summary Free Text/Dictation K elevated this am, HD ordered, Just completed HD. Constitutional: No requiring O2 Exam/Review of Systems Vital Signs Vitals Vital Signs Date Time Temp Pulse Resp B/P Pulse Ox O2 Delivery O2 Flow Rate FiO2 12/13/16 14:35 102 12/13/16 12:35 12 12/13/16 12:00 98.5 111/66 96 12/13/16 03:28 Nasal Cannula 2.0 Intake and Output 12/12/16 12/12/16 12/13/16 15:00 23:00 07:00 Intake Total 800 ml 200 ml Balance 800 ml 200 ml Exam Constitutional: No distress ENMT: mucosa pink and moist Neck: No jvd Respiratory: No labored breathing Extremities: No edema 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: No lethargic Skin: No diaphoresis Results Result Diagram: 12/12/16 0822 12/13/16 0704 Results 24 hrs Laboratory Tests Test 12/13/16 07:04 Sodium Level 137 Potassium Level 6.1 *H Chloride Level 90 L Carbon Dioxide Level 27 Anion Gap 26 H Blood Urea Nitrogen 65 H Creatinine 7.17 H Glucose Level 66 L Calcium Level 9.1 Ionized Calcium (Measured) 1.1 Total Bilirubin 0.0 L Direct Bilirubin 0.00 Indirect Bilirubin 0.0 Aspartate Amino Transf (AST/SGOT) 17 Alanine Aminotransferase (ALT/SGPT) 17 Alkaline Phosphatase 719 H Total Protein 6.2 Albumin 3.7 Globulin 2.50 Albumin/Globulin Ratio 1.48 Thyroid Stimulating Hormone (TSH) 0.317 L Free Thyroxine 3.13 H Free Triiodothyronine (T3) pg/mL 9.62 H Medications Medications Current Medications Acetaminophen (Tylenol Tab) 650 mg Q4H PRN PO PAIN AND OR ELEVATED TEMP; Start 12/02/16 at 23:00 Hydralazine HCl (Apresoline) 25 mg Q6H PRN PO SBP >170; Start 12/02/16 at 23:00 Morphine Sulfate (morphine) 2 mg Q4H PRN IV MODERATE PAIN LEVEL 4-6 Last administered on 12/13/16 09:04; Admin Dose 2 MG; Start 12/02/16 at 23:00 Diphenhydramine HCl (Benadryl) 25 mg Q6H PRN IV Itching Last administered on 10:58; Admin Dose 25 MG; Start 12/02/16 at 23:00 Ondansetron HCl (Zofran Inj) 4 mg Q6H PRN IV NAUSEA AND/OR VOMITING Last administered on 12/11/16 15:25; Admin Dose 4 MG; Start 12/03/16 at 19:30 Pantoprazole (Protonix Tab) 40 mg DAILY@06 PO Last administered on 12/13/16 05 :11; Admin Dose 40 MG; Start 12/04/16 at 14:00 Ibuprofen (Motrin) 600 mg Q8 PO Last administered on 12/13/16 05:11; Admin Dose 600 MG; Start 12/05/16 at 22:00 Gabapentin (Neurontin) 100 mg TID PO Last administered on 12/13/16 09:06; Admin Dose 100 MG; Start 12/06/16 at 21:00 Lubiprostone (Amitiza) 24 mcg BID PO Last administered on 12/13/16 09:06; Admin Dose 24 MCG; Start 12/07/16 at 16:30 Mineral Oil (Fleet Mineral Oil Enema) 133 ml DAILY [place] Last administered on 12/12 18:41; Admin Dose 133 ML; Start 12/09/16 at 09:00 Metoclopramide HCl (Reglan) 5 mg Q8 IV Last administered on 12/13/16 05:10; Admin Dose 5 MG; Start 12/10/16 at 14:00 Oxycodone/ Acetaminophen (Percocet (5/ 325)) 1 tab Q6H PRN PO PAIN LEVEL 6-10 Last administered on 12/12/16t 06:49; Admin Dose 1 TAB; Start 12/11/16 at 15:00 JUANJO TATUM MD Dec 13, 2016 15:06
[2016-12-13] MEDS ORDERED: EPOETIN 3000 UNITS/1 ML INJ (ESRD) SC SCH (15:30)
[2016-12-13] MEDS: MINERAL OIL 133 ML ENEMA PR SCH (18:00)
--- NOTE | 2016-12-13 21:05 | CONS ---
Date/Time of Note Date/Time of Note DATE: 12/13/16 TIME: 21:03 Assessment/Plan Assessment/Plan Chief Complaint/Hosp Course 31 year old female with history of ESRD,admitted for abdominal pain,dysphagia. no nausea,vomiting or gi bleeding.No chest pain or SOB. Problems: Additional Assessment/Plan Additional Assessment/Plan 1. dysphagia,mostly secondary to multinodular goiter, resolved after the surgery 2. Hypotension, borderline. 3. Goiter multinodular. 4. End-stage renal disease on hemodialysis. 5. Hyperkalemia resolved. 6. Abdominal pain. 7. increased alkaline phosphate secondary to hyperparathyroidism 8. Gastroparesis 9. Severe constipation 10. Status post thyroid gland biopsy 11. Induration in the cubital fossa 12. Status post surgery parathyroid glands were removed and partial thyroidectomy done 13. Abdominal pain also resolved Plan Bentyl PPI continue present care. Caridad Lopez Consultation Date/Type/Reason Admit Date/Time Dec 02, 2016 at 17:19 Initial Consult Date 12/04/16 Type of Consultation: Renal Referring Provider: LUANNE WALTER MD 24 HR Interval Summary Free Text/Dictation dysphagia better,pain at the site of surgery Exam/Review of Systems Vital Signs Vitals Vital Signs Date Time Temp Pulse Resp B/P Pulse Ox O2 Delivery O2 Flow Rate FiO2 12/13/16 20:06 111 12/13/16 16:24 98.0 18 123/59 99 12/13/16 03:28 Nasal Cannula 2.0 Intake and Output 12/12/16 12/12/16 12/13/16 14:59 22:59 06:59 Intake Total 800 ml 200 ml Balance 800 ml 200 ml Exam Constitutional: alert, oriented, well developed Psych: nl mood/affect, no complaints Head: atraumatic, normocephalic Eyes: EOMI, PERRL, nl conjunctiva, nl lids, nl sclera ENMT: nl external ears & nose, nl lips & teeth, nl nasal mucosa & septum Neck: non-tender, supple Respiratory: clear to auscultation, normal air movement Cardiovascular: nl pulses, regular rate and rhythm Gastrointestinal: nl liver, spleen, non-tender, soft Musculoskeletal: nl extremities to inspection, nl gait and stance Extremities: normal pulses 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: 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 SERVICES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 intact, nl mental status, nl speech, nl strength Skin: nl turgor, No rash or lesions Lymph: nl lymph nodes Results Result Diagram: 12/12/16 0822 12/13/16 0704 Results 24 hrs Laboratory Tests Test 12/13/16 07:04 Sodium Level 137 Potassium Level 6.1 *H Chloride Level 90 L Carbon Dioxide Level 27 Anion Gap 26 H Blood Urea Nitrogen 65 H Creatinine 7.17 H Glucose Level 66 L Calcium Level 9.1 Ionized Calcium (Measured) 1.1 Total Bilirubin 0.0 L Direct Bilirubin 0.00 Indirect Bilirubin 0.0 Aspartate Amino Transf (AST/SGOT) 17 Alanine Aminotransferase (ALT/SGPT) 17 Alkaline Phosphatase 719 H Total Protein 6.2 Albumin 3.7 Globulin 2.50 Albumin/Globulin Ratio 1.48 Thyroid Stimulating Hormone (TSH) 0.317 L Free Thyroxine 3.13 H Free Triiodothyronine (T3) pg/mL 9.62 H Medications Medications Current Medications Acetaminophen (Tylenol Tab) 650 mg Q4H PRN PO PAIN AND OR ELEVATED TEMP; Start 12/02/16 at 23:00 Hydralazine HCl (Apresoline) 25 mg Q6H PRN PO SBP >170; Start 12/02/16 at 23:00 Morphine Sulfate (morphine) 2 mg Q4H PRN IV MODERATE PAIN LEVEL 4-6 Last administered on 12/13/16 20:45; Admin Dose 2 MG; Start 12/02/16 at 23:00 Diphenhydramine HCl (Benadryl) 25 mg Q6H PRN IV Itching Last administered on 17:10; Admin Dose 25 MG; Start 12/02/16 at 23:00 Ondansetron HCl (Zofran Inj) 4 mg Q6H PRN IV NAUSEA AND/OR VOMITING Last administered on 12/11/16 15:25; Admin Dose 4 MG; Start 12/03/16 at 19:30 Pantoprazole (Protonix Tab) 40 mg DAILY@06 PO Last administered on 12/13/16 05 :11; Admin Dose 40 MG; Start 12/04/16 at 14:00 Ibuprofen (Motrin) 600 mg Q8 PO Last administered on 12/13/16 05:11; Admin Dose 600 MG; Start 12/05/16 at 22:00 Gabapentin (Neurontin) 100 mg TID PO Last administered on 12/13/16 20:44; Admin Dose 100 MG; Start 12/06/16 at 21:00 Lubiprostone (Amitiza) 24 mcg BID PO Last administered on 12/13/16 20:45; Admin Dose 24 MCG; Start 12/07/16 at 16:30 Mineral Oil (Fleet Mineral Oil Enema) 133 ml DAILY [place] Last administered on 12/13 18:00; Admin Dose 133 ML; Start 12/09/16 at 09:00 Metoclopramide HCl (Reglan) 5 mg Q8 IV Last administered on 12/13/16 05:10; Admin Dose 5 MG; Start 12/10/16 at 14:00 Oxycodone/ Acetaminophen (Percocet (5/ 325)) 1 tab Q6H PRN PO PAIN LEVEL 6-10 Last administered on 12/12/16 06:49; Admin Dose 1 TAB; Start 12/11/16 at 15:00 FREDERIC GARCIA MD Dec 13, 2016 21:04
[2016-12-14] VITALS (20 sets, daily range): BP systolic 89–118; BP diastolic 50–69; PULSE 99–125; RESP 18
[2016-12-14] MEDS: morphine 2 MG INJ IV PRN ×5 (01:21→23:20)
[2016-12-14] MEDS: DIPHENHYDRAMINE 50 MG INJ IV PRN ×4 (05:31→23:20)
[2016-12-14] MEDS: PANTOPRAZOLE (EC) 40 MG TAB PO SCH (05:31)
[2016-12-14] MEDS: METOCLOPRAMIDE 10 MG INJ IV SCH ×3 (05:36→22:01)
[2016-12-14] MEDS: IBUPROFEN 600 MG TAB PO SCH ×3 (05:36→22:01)
[2016-12-14] MEDS: GABAPENTIN 100 MG CAP PO SCH ×3 (08:13→20:18)
[2016-12-14] MEDS: SEVELAMER 800 MG TAB PO SCH ×3 (08:13→17:05)
[2016-12-14] MEDS: MINERAL OIL 133 ML ENEMA PR SCH (08:13)
[2016-12-14] MEDS: LUBIPROSTONE 24 MCG CAP PO SCH ×2 (08:14→20:18)
[2016-12-14 08:17] LABS: BASOPHILS % 0.3 % (0.0-2.0); EOSINOPHILS # 0.3 10^3/ul (0.0-0.5); EOSINOPHILS % 7.9 % (0.0-7.0); HEMATOCRIT 24.1 % (37.0-47.0); HEMOGLOBIN 7.7 g/dl (12.0-16.0); LYMPHOCYTES # 0.8 10^3/ul (0.8-2.9); LYMPHOCYTES % 23.4 % (15.0-51.0); MEAN CORPUSCULAR HEMOGLOBIN 31.7 pg (29.0-33.0); MEAN CORPUSCULAR VOLUME 99.2 fl (82.0-101.0); MEAN PLATELET VOLUME 10.7 fl (7.4-10.4); MONOCYTE # 0.4 10^3/ul (0.3-0.9); MONOCYTES % 11.5 % (0.0-11.0); NEUTROPHILS % 56.9 % (39.0-77.0); PLATELET COUNT 136 10^3/UL (140-415); RED BLOOD COUNT 2.43 10^6/ul (4.20-5.40); RED CELL DISTRIBUTION WIDTH 17.6 % (11.5-14.5); WHITE BLOOD COUNT 3.6 10^3/ul (4.8-10.8)
[2016-12-14 08:36] LABS: CALCIUM 9.4 mg/dl (8.4-10.2); CREATININE 5.37 mg/dl (0.44-1.00); POTASSIUM 4.7 mmol/L (3.5-5.1)
[2016-12-14 09:21] LABS: CALCIUM 9.4 mg/dl (8.4-10.2)
--- NOTE | 2016-12-14 13:17 | CONS ---
Date/Time of Note Date/Time of Note DATE: 12/14/16 TIME: 13:13 Assessment/Plan Assessment/Plan Chief Complaint/Hosp Course 1. Increased BNP, assess congestive heart failure with secondary renal failure.- no sig sob at this time. NL EF by echo 2. Hypotension, borderline. 3. Goiter multinodular. 4. End-stage renal disease on hemodialysis. 5. Hyperkalemia resolved. 6. Abdominal pain. 7. Hyperthyroid 8. Tachycardia-S Tach 9.Hyperparathyroid Recc: -Tele -Ongoing eval of mutinodular goiter -HD for volume removal -Follow marginal BP closely Problems: Consultation Date/Type/Reason Admit Date/Time Dec 02, 2016 at 17:19 Initial Consult Date 12/03/2016 Type of Consultation: cardiology Reason for Consultation tachycardia Referring Provider: LUANNE WALTER MD Exam/Review of Systems Vital Signs Vitals Vital Signs Date Time Temp Pulse Resp B/P Pulse Ox O2 Delivery O2 Flow Rate FiO2 12/14/16 12:56 102/55 12/14/16 12:14 115 12/14/16 12:03 98.2 18 100 12/13/16 23:23 Nasal Cannula 2.0 Intake and Output 12/13/16 12/13/16 12/14/16 15:00 23:00 07:00 Intake Total 500 ml 100 ml 250 ml Output Total 2700 ml Balance -2200 ml 100 ml 250 ml Exam Review of Systems: CONSTITUTIONAL: No fevers, chills. PULMONARY: No sob CARDIOVASCULAR: No chest pain/palpitations GASTROINTESTINAL: Mild abd pain GENITOURINARY: No hematuria/dysuria. MUSCULOSKELETAL: No myagias/arthalgias. PSYCHIATRIC: The patient denies depression. NEUROLOGIC: No weakness Constitutional: alert Psych: no complaints Head: normocephalic ENMT: mucosa pink and moist Neck: jvd (8-9 cm water), supple Respiratory: diminished breath sounds (at bases/B) Cardiovascular: other (tachycardia, regular rhythm) Gastrointestinal: non-tender, soft Musculoskeletal: muscle tone Extremities: edema (none) 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: other (No focal deficits) Results Result Diagram: 12/14/16 0739 12/14/16 0739 Results 24 hrs Laboratory Tests Test 12/14/16 07:39 White Blood Count 3.6 #L Red Blood Count 2.43 L Hemoglobin 7.7 L Hematocrit 24.1 L Mean Corpuscular Volume 99.2 Mean Corpuscular Hemoglobin 31.7 Mean Corpuscular Hemoglobin Concent 32.0 Red Cell Distribution Width 17.6 H Platelet Count 136 L Mean Platelet Volume 10.7 H Neutrophils % 56.9 Lymphocytes % 23.4 Monocytes % 11.5 H Eosinophils % 7.9 H Basophils % 0.3 Nucleated Red Blood Cells % 0.0 Neutrophils # (Manual) 2 Lymphocytes # 0.8 Monocytes # 0.4 Eosinophils # 0.3 Basophils # 0.0 Nucleated Red Blood Cells # 0.0 Sodium Level 140 Potassium Level 4.7 Chloride Level 90 L Carbon Dioxide Level 30 Anion Gap 25 H Blood Urea Nitrogen 53 H Creatinine 5.37 H Glucose Level 60 L Calcium Level 9.4 Ionized Calcium (Measured) 1.2 Parathyroid Hormone (Intact) Medications Medications Current Medications Acetaminophen (Tylenol Tab) 650 mg Q4H PRN PO PAIN AND OR ELEVATED TEMP; Start 12/02/16 at 23:00 Hydralazine HCl (Apresoline) 25 mg Q6H PRN PO SBP >170; Start 12/02/16 at 23:00 Morphine Sulfate (morphine) 2 mg Q4H PRN IV MODERATE PAIN LEVEL 4-6 Last administered on 12/14/16 08:23; Admin Dose 2 MG; Start 12/02/16 at 23:00 Diphenhydramine HCl (Benadryl) 25 mg Q6H PRN IV Itching Last administered on 11:26; Admin Dose 25 MG; Start 12/02/16 at 23:00 Ondansetron HCl (Zofran Inj) 4 mg Q6H PRN IV NAUSEA AND/OR VOMITING Last administered on 12/11/16 15:25; Admin Dose 4 MG; Start 12/03/16 at 19:30 Pantoprazole (Protonix Tab) 40 mg DAILY@06 PO Last administered on 12/14/16 05 :31; Admin Dose 40 MG; Start 12/04/16 at 14:00 Ibuprofen (Motrin) 600 mg Q8 PO Last administered on 12/14/16 05:36; Admin Dose 600 MG; Start 12/05/16 at 22:00 Gabapentin (Neurontin) 100 mg TID PO Last administered on 12/14/16 12:14; Admin Dose 100 MG; Start 12/06/16 at 21:00 Lubiprostone (Amitiza) 24 mcg BID PO Last administered on 12/14/16 08:14; Admin Dose 24 MCG; Start 12/07/16 at 16:30 Mineral Oil (Fleet Mineral Oil Enema) 133 ml DAILY [place] Last administered on 12/13 18:00; Admin Dose 133 ML; Start 12/09/16 at 09:00 Metoclopramide HCl (Reglan) 5 mg Q8 IV Last administered on 12/14/16 05:36; Admin Dose 5 MG; Start 12/10/16 at 14:00 Oxycodone/ Acetaminophen (Percocet (5/ 325)) 1 tab Q6H PRN PO PAIN LEVEL 6-10 Last administered on 12/12/16 06:49; Admin Dose 1 TAB; Start 12/11/16 at 15:00 HENRIQUE GARCIA Dec 14, 2016 13:17
--- NOTE | 2016-12-14 13:46 | CONS ---
Date/Time of Note Date/Time of Note DATE: 12/14/16 TIME: 13:39 Assessment/Plan Assessment/Plan Chief Complaint/Hosp Course Pt is anxiously aawaiting further studies Problems: (1) End stage kidney disease Status: Chronic Comment: To resume weekly schedule start hd today then mwf (2) Secondary hyperparathyroidism of renal origin Status: Chronic Comment: SCa remains stable, suggesting pt may still have intact Parathyroids in place (3) Hyperkalemia Status: Acute Comment: Pt given [place] Cont'd Hospitalization Reason: Continue Monitoring Ca, PO4 closely Consultation Date/Type/Reason Admit Date/Time Dec 02, 2016 at 17:19 Initial Consult Date 12/04/16 Type of Consultation: renal Referring Provider: LUANNE WALTER MD 24 HR Interval Summary Free Text/Dictation Pt is doing well ppost-operatively Exam/Review of Systems Vital Signs Vitals Vital Signs Date Time Temp Pulse Resp B/P Pulse Ox O2 Delivery O2 Flow Rate FiO2 12/14/16 12:56 102/55 12/14/16 12:14 115 12/14/16 12:03 98.2 18 100 12/13/16 23:23 Nasal Cannula 2.0 Intake and Output 12/13/16 12/13/16 12/14/16 15:00 23:00 07:00 Intake Total 500 ml 100 ml 250 ml Output Total 2700 ml Balance -2200 ml 100 ml 250 ml Exam noo new complaints, Constitutional: alert, oriented, well developed Psych: nl mood/affect, no complaints Head: atraumatic, normocephalic Eyes: EOMI, PERRL, nl conjunctiva, nl lids, nl sclera ENMT: nl external ears & nose, nl lips & teeth, nl nasal mucosa & septum Neck: non-tender, other (Sx wound is healing), supple Respiratory: clear to auscultation, normal air movement Cardiovascular: nl pulses, regular rate and rhythm Gastrointestinal: nl liver, spleen, non-tender, soft Musculoskeletal: nl extremities to inspection, nl gait and stance Extremities: normal pulses, other (lt arm avf bruit+) 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: 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 II-XII intact, nl mental status, nl speech, nl strength Skin: nl turgor, other (pale), No rash or lesions Lymph: nl lymph nodes Results K is 5.3 Note drop in Hct Result Diagram: 12/14/16 0739 12/14/16 0739 Results 24 hrs Laboratory Tests Test 12/14/16 07:39 White Blood Count 3.6 #L Red Blood Count 2.43 L Hemoglobin 7.7 L Hematocrit 24.1 L Mean Corpuscular Volume 99.2 Mean Corpuscular Hemoglobin 31.7 Mean Corpuscular Hemoglobin Concent 32.0 Red Cell Distribution Width 17.6 H Platelet Count 136 L Mean Platelet Volume 10.7 H Neutrophils % 56.9 Lymphocytes % 23.4 Monocytes % 11.5 H Eosinophils % 7.9 H Basophils % 0.3 Nucleated Red Blood Cells % 0.0 Neutrophils # (Manual) 2 Lymphocytes # 0.8 Monocytes # 0.4 Eosinophils # 0.3 Basophils # 0.0 Nucleated Red Blood Cells # 0.0 Sodium Level 140 Potassium Level 4.7 Chloride Level 90 L Carbon Dioxide Level 30 Anion Gap 25 H Blood Urea Nitrogen 53 H Creatinine 5.37 H Glucose Level 60 L Calcium Level 9.4 Ionized Calcium (Measured) 1.2 Parathyroid Hormone (Intact) Medications Medications Current Medications Acetaminophen (Tylenol Tab) 650 mg Q4H PRN PO PAIN AND OR ELEVATED TEMP; Start 12/02/16 at 23:00 Hydralazine HCl (Apresoline) 25 mg Q6H PRN PO SBP >170; Start 12/02/16 at 23:00 Morphine Sulfate (morphine) 2 mg Q4H PRN IV MODERATE PAIN LEVEL 4-6 Last administered on 12/14/16 13:34; Admin Dose 2 MG; Start 12/02/16 at 23:00 Diphenhydramine HCl (Benadryl) 25 mg Q6H PRN IV Itching Last administered on 11:26; Admin Dose 25 MG; Start 12/02/16 at 23:00 Ondansetron HCl (Zofran Inj) 4 mg Q6H PRN IV NAUSEA AND/OR VOMITING Last administered on 12/11/16 15:25; Admin Dose 4 MG; Start 12/03/16 at 19:30 Pantoprazole (Protonix Tab) 40 mg DAILY@06 PO Last administered on 12/14/16 05 :31; Admin Dose 40 MG; Start 12/04/16 at 14:00 Ibuprofen (Motrin) 600 mg Q8 PO Last administered on 12/14/16 13:34; Admin Dose 600 MG; Start 12/05/16 at 22:00 Gabapentin (Neurontin) 100 mg TID PO Last administered on 12/14/16 12:14; Admin Dose 100 MG; Start 12/06/16 at 21:00 Lubiprostone (Amitiza) 24 mcg BID PO Last administered on 12/14/16 08:14; Admin Dose 24 MCG; Start 12/07/16 at 16:30 Mineral Oil (Fleet Mineral Oil Enema) 133 ml DAILY [place] Last administered on 12/13 18:00; Admin Dose 133 ML; Start 12/09/16 at 09:00 Metoclopramide HCl (Reglan) 5 mg Q8 IV Last administered on 12/14/16 13:34; Admin Dose 5 MG; Start 12/10/16 at 14:00 Oxycodone/ Acetaminophen (Percocet (5/ 325)) 1 tab Q6H PRN PO PAIN LEVEL 6-10 Last administered on 12/12/16 06:49; Admin Dose 1 TAB; Start 12/11/16 at 15:00 CAMERON ISIDRO MD Dec 14, 2016 13:46
--- NOTE | 2016-12-14 16:30 | PN ---
Date/Time of Note Date/Time of Note DATE: 12/14/16 TIME: 16:23 Assessment/Plan VTE Prophylaxis VTE Prophylaxis Intervention: ambulation Lines/Catheters IV [facility] [place] [facility] Urinary Cath still in place: No Assessment/Plan Assessment/Plan 31-year-old female with end-stage renal disease and need for hemodialysis 3 times per week. Was admitted because of hyperkalemia and neck pain and dysphagia was found to have several enlarged parathyroid one on the left side pressing over the soft. Postop day #3 is status post exploration of the central neck and removal of the parathyroid on the left side and part of the thyroid gland on the left side. Dysphagia has resolved Next pressure and pain resolved She has had daily bowel movements and abdominal pain has resolved. Serum is slightly decreased from 10.5-9.6 We will get a KUB to assess the gastric distention and constipation. Awaiting the results of the pathology of the surgical specimen removed during operation. Subjective 24 Hr Interval Summary Free Text/Dictation Mild pain at the site of incision. Dysphagia is resolved. Has had a bowel movement last night and today morning. No more abdominal pain. Exam/Review of Systems Vital Signs Vitals Vital Signs Date Time Temp Pulse Resp B/P Pulse Ox O2 Delivery O2 Flow Rate FiO2 12/14/16 12:56 102/55 12/14/16 12:14 115 12/14/16 12:03 98.2 18 100 12/13/16 23:23 Nasal Cannula 2.0 Intake and Output 12/13/16 12/13/16 12/14/16 15:00 23:00 07:00 Intake Total 500 ml 100 ml 250 ml Output Total 2700 ml Balance -2200 ml 100 ml 250 ml Exam Awake alert oriented 3 vital signs stable no fever is getting hemodialysis appears comfortable in no acute distress. Blood calcium today 9.6 before operation it was 10.5. Neck wound is clean. Abdomen is soft. Pathology report of the surgical specimen is not available yet. Results Result Diagram: 12/14/16 0739 12/14/16 0739 Results 24 hrs Laboratory Tests Test 12/14/16 07:39 White Blood Count 3.6 #L Red Blood Count 2.43 L Hemoglobin 7.7 L Hematocrit 24.1 L Mean Corpuscular Volume 99.2 Mean Corpuscular Hemoglobin 31.7 Mean Corpuscular Hemoglobin Concent 32.0 Red Cell Distribution Width 17.6 H Platelet Count 136 L Mean Platelet Volume 10.7 H Neutrophils % 56.9 Lymphocytes % 23.4 Monocytes % 11.5 H Eosinophils % 7.9 H Basophils % 0.3 Nucleated Red Blood Cells % 0.0 Neutrophils # (Manual) 2 Lymphocytes # 0.8 Monocytes # 0.4 Eosinophils # 0.3 Basophils # 0.0 Nucleated Red Blood Cells # 0.0 Sodium Level 140 Potassium Level 4.7 Chloride Level 90 L Carbon Dioxide Level 30 Anion Gap 25 H Blood Urea Nitrogen 53 H Creatinine 5.37 H Glucose Level 60 L Calcium Level 9.4 Ionized Calcium (Measured) 1.2 Parathyroid Hormone (Intact) Medications Medications Current Medications Acetaminophen (Tylenol Tab) 650 mg Q4H PRN PO PAIN AND OR ELEVATED TEMP; Start 12/02/16 at 23:00 Hydralazine HCl (Apresoline) 25 mg Q6H PRN PO SBP >170; Start 12/02/16 at 23:00 Morphine Sulfate (morphine) 2 mg Q4H PRN IV MODERATE PAIN LEVEL 4-6 Last administered on 12/14/16 13:34; Admin Dose 2 MG; Start 12/02/16 at 23:00 Diphenhydramine HCl (Benadryl) 25 mg Q6H PRN IV Itching Last administered on 11:26; Admin Dose 25 MG; Start 12/02/16 at 23:00 Ondansetron HCl (Zofran Inj) 4 mg Q6H PRN IV NAUSEA AND/OR VOMITING Last administered on 12/11/16 15:25; Admin Dose 4 MG; Start 12/03/16 at 19:30 Pantoprazole (Protonix Tab) 40 mg DAILY@06 PO Last administered on 12/14/16 05 :31; Admin Dose 40 MG; Start 12/04/16 at 14:00 Ibuprofen (Motrin) 600 mg Q8 PO Last administered on 12/14/16 13:34; Admin Dose 600 MG; Start 12/05/16 at 22:00 Gabapentin (Neurontin) 100 mg TID PO Last administered on 12/14/16 12:14; Admin Dose 100 MG; Start 12/06/16 at 21:00 Lubiprostone (Amitiza) 24 mcg BID PO Last administered on 12/14/16 08:14; Admin Dose 24 MCG; Start 12/07/16 at 16:30 Mineral Oil (Fleet Mineral Oil Enema) 133 ml DAILY [place] Last administered on 12/13 18:00; Admin Dose 133 ML; Start 12/09/16 at 09:00 Metoclopramide HCl (Reglan) 5 mg Q8 IV Last administered on 12/14/16 13:34; Admin Dose 5 MG; Start 12/10/16 at 14:00 Oxycodone/ Acetaminophen (Percocet (5/ 325)) 1 tab Q6H PRN PO PAIN LEVEL 6-10 Last administered on 12/12/16 06:49; Admin Dose 1 TAB; Start 12/11/16 at 15:00 TANISHA MALONEY MD Dec 14, 2016 16:30
--- NOTE | 2016-12-14 18:40 | CONS ---
Date/Time of Note Date/Time of Note DATE: 12/14/16 TIME: 18:35 Assessment/Plan Assessment/Plan Problems: (1) Painful thyroid Status: Resolved Comment: Resection of what appears to have been large parathyroid nodule has resolved thyroid pain. Pt. feels better. (2) Secondary hyperparathyroidism of renal origin Status: Chronic Comment: Awaiting repeat PTH value now s/p hemithyroidectomy including resection of large parathyroid mass and 2 other small parathyroid glands. Calcium has decreased to normal. 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 Suspect due to acute release of thyroid hormone post-surgery. No treatment necessary. Recheck 4-6 weeks. Expect normalization. Will sign off for now. Reconsult prn. Consultation Date/Type/Reason Admit Date/Time Dec 02, 2016 at 17:19 Initial Consult Date 12/04/16 Type of Consultation: Endocrinology Reason for Consultation TMNG w/ tender thyroid nodule Referring Provider: LUANNE WALTER MD 24 HR Interval Summary Constitutional: improved, no complaints Detailed Summary Respiratory: no complaints Cardiovascular: no complaints Gastrointestinal: pain (BLQ) Genitourinary: no complaints Musculoskeletal: no complaints Neurologic: no complaints Exam/Review of Systems Vital Signs Vitals VS - Last 72 Hours, by Label Date Time Temp Pulse Resp B/P Pulse Ox O2 Delivery O2 Flow Rate FiO2 12/14/16 17:00 117 12/14/16 17:00 102 16 12/14/16 16:30 112 12/14/16 16:27 98.0 112 18 109/63 93 12/14/16 16:22 114 12/14/16 16:00 113 12/14/16 15:30 118 12/14/16 15:00 113 12/14/16 14:30 110 12/14/16 14:00 105 12/14/16 14:00 110 18 12/14/16 12:56 102/55 12/14/16 12:14 115 12/14/16 12:03 98.2 83 18 89/50 100 12/14/16 08:12 99 12/14/16 08:11 98.2 96 104/51 12/14/16 04:05 104 12/14/16 04:00 98.4 112 18 105/62 98 12/14/16 00:24 125 12/14/16 00:00 98.4 119 18 109/53 98 12/13/16 23:23 Nasal Cannula 2.0 12/13/16 20:06 111 12/13/16 20:00 98.5 105 19 102/54 99 12/13/16 16:40 120 12/13/16 16:24 98.0 89 18 123/59 99 12/13/16 14:35 102 12/13/16 14:15 100 12/13/16 13:55 102 12/13/16 13:35 100 12/13/16 13:15 102 12/13/16 12:55 106 12/13/16 12:55 112 12/13/16 12:35 109 12 12/13/16 12:35 102 14 12/13/16 12:30 109 12/13/16 12:00 98.5 114 18 111/66 96 12/13/16 08:36 106 12/13/16 08:12 98.0 98 18 99/53 100 12/13/16 04:39 98.2 108 16 122/58 99 12/13/16 04:07 106 12/13/16 03:28 Nasal Cannula 2.0 12/13/16 03:24 98.2 110 17 122/58 98 12/13/16 00:12 104 12/12/16 23:08 97.4 107 18 109/59 100 Room Air 12/12/16 20:07 104 12/12/16 16:03 110 12/12/16 16:00 98.8 111 19 125/64 99 12/12/16 12:08 100 12/12/16 11:45 99.0 103 18 84/47 98 12/12/16 08:05 105 12/12/16 07:54 99.1 102 18 112/59 97 12/12/16 04:13 114 12/12/16 03:58 97.6 93 18 111/59 98 12/12/16 00:19 108 17 23:53 99.0 112 19 108/55 100 1817 22:25 113 110/58 18/17 20:09 97 1817 20:00 112 17 20:00 106 18 17 19:51 97.6 81 19 103/56 100 12/11/16 19:30 110 12/11/16 19:00 100 Vital Signs Date Time Temp Pulse Resp B/P Pulse Ox O2 Delivery O2 Flow Rate FiO2 12/14/16 17:00 117 12/14/16 17:00 16 12/14/16 16:27 98.0 109/63 93 12/13/16 23:23 Nasal Cannula 2.0 Intake and Output 12/13/16 12/13/16 12/14/16 15:00 23:00 07:00 Intake Total 500 ml 100 ml 250 ml Output Total 2700 ml Balance -2200 ml 100 ml 250 ml Exam Constitutional: alert, oriented, well developed Psych: nl mood/affect, no complaints Neck: No bruits, No jvd, No masses, No thyromegaly ((+) necklace wound, healing well) Respiratory: clear to auscultation, normal air movement Cardiovascular: nl pulses, regular rate and rhythm, No edema, No murmurs/extra sounds, No rub Gastrointestinal: bowel sounds, nl liver, spleen, soft, tender ((+) TTP BLQ, R > L), No mass, No rebound or guarding Musculoskeletal: nl extremities to inspection Extremities: normal pulses, No clubbing, No cyanosis, No edema 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, nl mental status, nl speech, nl strength Results Result Diagram: 12/14/16 0739 12/14/16 0739 Results 24 hrs Laboratory Tests Test 12/14/16 07:39 White Blood Count 3.6 #L Red Blood Count 2.43 L Hemoglobin 7.7 L Hematocrit 24.1 L Mean Corpuscular Volume 99.2 Mean Corpuscular Hemoglobin 31.7 Mean Corpuscular Hemoglobin Concent 32.0 Red Cell Distribution Width 17.6 H Platelet Count 136 L Mean Platelet Volume 10.7 H Neutrophils % 56.9 Lymphocytes % 23.4 Monocytes % 11.5 H Eosinophils % 7.9 H Basophils % 0.3 Nucleated Red Blood Cells % 0.0 Neutrophils # (Manual) 2 Lymphocytes # 0.8 Monocytes # 0.4 Eosinophils # 0.3 Basophils # 0.0 Nucleated Red Blood Cells # 0.0 Sodium Level 140 Potassium Level 4.7 Chloride Level 90 L Carbon Dioxide Level 30 Anion Gap 25 H Blood Urea Nitrogen 53 H Creatinine 5.37 H Glucose Level 60 L Calcium Level 9.4 Ionized Calcium (Measured) 1.2 Parathyroid Hormone (Intact) Medications Medications Current Medications Acetaminophen (Tylenol Tab) 650 mg Q4H PRN PO PAIN AND OR ELEVATED TEMP; Start 12/02/16 at 23:00 Hydralazine HCl (Apresoline) 25 mg Q6H PRN PO SBP >170; Start 12/02/16 at 23:00 Morphine Sulfate (morphine) 2 mg Q4H PRN IV MODERATE PAIN LEVEL 4-6 Last administered on 12/14/16 13:34; Admin Dose 2 MG; Start 12/02/16 at 23:00 Diphenhydramine HCl (Benadryl) 25 mg Q6H PRN IV Itching Last administered on 17:28; Admin Dose 25 MG; Start 12/02/16 at 23:00 Ondansetron HCl (Zofran Inj) 4 mg Q6H PRN IV NAUSEA AND/OR VOMITING Last administered on 12/11/16 15:25; Admin Dose 4 MG; Start 12/03/16 at 19:30 Pantoprazole (Protonix Tab) 40 mg DAILY@06 PO Last administered on 12/14/16 05 :31; Admin Dose 40 MG; Start 12/04/16 at 14:00 Ibuprofen (Motrin) 600 mg Q8 PO Last administered on 12/14/16 13:34; Admin Dose 600 MG; Start 12/05/16 at 22:00 Gabapentin (Neurontin) 100 mg TID PO Last administered on 12/14/16 12:14; Admin Dose 100 MG; Start 12/06/16 at 21:00 Lubiprostone (Amitiza) 24 mcg BID PO Last administered on 12/14/16 08:14; Admin Dose 24 MCG; Start 12/07/16 at 16:30 Mineral Oil (Fleet Mineral Oil Enema) 133 ml DAILY [place] Last administered on 12/13 18:00; Admin Dose 133 ML; Start 12/09/16 at 09:00 Metoclopramide HCl (Reglan) 5 mg Q8 IV Last administered on 12/14/16 13:34; Admin Dose 5 MG; Start 12/10/16 at 14:00 Oxycodone/ Acetaminophen (Percocet (5/ 325)) 1 tab Q6H PRN PO PAIN LEVEL 6-10 Last administered on 12/12/16t 06:49; Admin Dose 1 TAB; Start 12/11/16 at 15:00 DWAYNE YEUNG MD Dec 14, 2016 18:39
[2016-12-14] MEDS: EPOETIN 10000 UNITS/1 ML INJ (ESRD) SC SCH (18:49)
--- NOTE | 2016-12-14 19:04 | PN ---
Date/Time of Note Date/Time of Note DATE: 12/14/16 TIME: 19:00 Assessment/Plan VTE Prophylaxis VTE Prophylaxis Intervention: SCD's Lines/Catheters IV [facility] Urinary Cath still in place: No Assessment/Plan Chief Complaint/Hosp Course Patient's hemoglobin dropped to 7.7 pending blood transfusion with hemodialysis , Assessment/Plan -Large left compressive parathyroid adenoma. S/p partial left thyroid lobectomy , left upper and lower parathyroidectomy by Dr Morales. -Dysphagia and odynophagia secondary to #1. Dr. Smallwood is following in gastroenterology consultation. Patient status post recent EGD at [facility]. -Thyrotoxicosis with multinodular goiter, Dr. Damon is following in endocrinology consultation. Dr. Red is following in general surgery consultation. -History of hyperparathyroidism -Hemodialysis dependent end-stage renal disease, Dr. Silverio following in nephrology , continue hemodialysis per nephrology. -Central stenosis, Dr. Francisco is following in vascular surgery consultation. Status post left upper extremity fistulogram. Further recommendations based on clinical course. Plan of care discussed with Dr. Turner Problems: Exam/Review of Systems Vital Signs Vitals Vital Signs Date Time Temp Pulse Resp B/P Pulse Ox O2 Delivery O2 Flow Rate FiO2 12/14/16 17:00 117 12/14/16 17:00 16 12/14/16 16:27 98.0 109/63 93 12/13/16 23:23 Nasal Cannula 2.0 Intake and Output 12/13/16 12/13/16 12/14/16 15:00 23:00 07:00 Intake Total 500 ml 100 ml 250 ml Output Total 2700 ml Balance -2200 ml 100 ml 250 ml Exam Constitutional: alert, oriented Neck: Status post surgery Cardiovascular: nl pulses Gastrointestinal: non-tender, soft Extremities: normal pulses, other (Left upper extremity AV fistula) 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: nl mental status Results Result Diagram: 12/14/16 0739 12/14/16 0739 Results 24 hrs Laboratory Tests Test 12/14/16 07:39 White Blood Count 3.6 #L Red Blood Count 2.43 L Hemoglobin 7.7 L Hematocrit 24.1 L Mean Corpuscular Volume 99.2 Mean Corpuscular Hemoglobin 31.7 Mean Corpuscular Hemoglobin Concent 32.0 Red Cell Distribution Width 17.6 H Platelet Count 136 L Mean Platelet Volume 10.7 H Neutrophils % 56.9 Lymphocytes % 23.4 Monocytes % 11.5 H Eosinophils % 7.9 H Basophils % 0.3 Nucleated Red Blood Cells % 0.0 Neutrophils # (Manual) 2 Lymphocytes # 0.8 Monocytes # 0.4 Eosinophils # 0.3 Basophils # 0.0 Nucleated Red Blood Cells # 0.0 Sodium Level 140 Potassium Level 4.7 Chloride Level 90 L Carbon Dioxide Level 30 Anion Gap 25 H Blood Urea Nitrogen 53 H Creatinine 5.37 H Glucose Level 60 L Calcium Level 9.4 Ionized Calcium (Measured) 1.2 Parathyroid Hormone (Intact) Medications Medications Current Medications Acetaminophen (Tylenol Tab) 650 mg Q4H PRN PO PAIN AND OR ELEVATED TEMP; Start 12/02/16 at 23:00 Hydralazine HCl (Apresoline) 25 mg Q6H PRN PO SBP >170; Start 12/02/16 at 23:00 Morphine Sulfate (morphine) 2 mg Q4H PRN IV MODERATE PAIN LEVEL 4-6 Last administered on 12/14/16 18:53; Admin Dose 2 MG; Start 12/02/16 at 23:00 Diphenhydramine HCl (Benadryl) 25 mg Q6H PRN IV Itching Last administered on 17:28; Admin Dose 25 MG; Start 12/02/16 at 23:00 Ondansetron HCl (Zofran Inj) 4 mg Q6H PRN IV NAUSEA AND/OR VOMITING Last administered on 12/11/16 15:25; Admin Dose 4 MG; Start 12/03/16 at 19:30 Pantoprazole (Protonix Tab) 40 mg DAILY@06 PO Last administered on 12/14/16 05 :31; Admin Dose 40 MG; Start 12/04/16 at 14:00 Ibuprofen (Motrin) 600 mg Q8 PO Last administered on 12/14/16 13:34; Admin Dose 600 MG; Start 12/05/16 at 22:00 Gabapentin (Neurontin) 100 mg TID PO Last administered on 12/14/16 12:14; Admin Dose 100 MG; Start 12/06/16 at 21:00 Lubiprostone (Amitiza) 24 mcg BID PO Last administered on 12/14/16 08:14; Admin Dose 24 MCG; Start 12/07/16 at 16:30 Mineral Oil (Fleet Mineral Oil Enema) 133 ml DAILY [place] Last administered on 12/13 18:00; Admin Dose 133 ML; Start 12/09/16 at 09:00 Metoclopramide HCl (Reglan) 5 mg Q8 IV Last administered on 12/14/16 13:34; Admin Dose 5 MG; Start 12/10/16 at 14:00 Oxycodone/ Acetaminophen (Percocet (5/ 325)) 1 tab Q6H PRN PO PAIN LEVEL 6-10 Last administered on 12/12/16 06:49; Admin Dose 1 TAB; Start 12/11/16 at 15:00 ERICK ROBERTSON Dec 14, 2016 19:04
--- NOTE | 2016-12-14 21:29 | CONS ---
Date/Time of Note Date/Time of Note DATE: 12/14/16 TIME: 21:27 Assessment/Plan Assessment/Plan Chief Complaint/Hosp Course 31 year old female with history of ESRD,admitted for abdominal pain,dysphagia. no nausea,vomiting or gi bleeding.No chest pain or SOB. Problems: Additional Assessment/Plan Additional Assessment/Plan 1. dysphagia,mostly secondary to multinodular goiter, resolved after the surgery 2. Hypotension, borderline. 3. Goiter multinodular. 4. End-stage renal disease on hemodialysis. 5. Hyperkalemia resolved. 6. Abdominal pain. 7. increased alkaline phosphate secondary to hyperparathyroidism 8. Gastroparesis 9. Severe constipation 10. Status post thyroid gland biopsy 11. Induration in the cubital fossa 12. Status post surgery parathyroid glands were removed and partial thyroidectomy done 13. Abdominal pain also resolved Plan Bentyl PPI continue present care. Consultation Date/Type/Reason Admit Date/Time Dec 02, 2016 at 17:19 Initial Consult Date 12/04/16 Type of Consultation: Endocrinology Referring Provider: LUANNE WALTER MD 24 HR Interval Summary Free Text/Dictation no abdominal pain,dysphagia better Constitutional: improved Exam/Review of Systems Vital Signs Vitals Vital Signs Date Time Temp Pulse Resp B/P Pulse Ox O2 Delivery O2 Flow Rate FiO2 12/14/16 20:04 120 12/14/16 19:54 99.0 18 90/50 98 12/13/16 23:23 Nasal Cannula 2.0 Intake and Output 12/13/16 12/13/16 12/14/16 15:00 23:00 07:00 Intake Total 500 ml 100 ml 250 ml Output Total 2700 ml Balance -2200 ml 100 ml 250 ml Exam Constitutional: alert, oriented, well developed Psych: nl mood/affect, no complaints Head: atraumatic, normocephalic Eyes: EOMI, PERRL, nl conjunctiva, nl lids, nl sclera ENMT: nl external ears & nose, nl lips & teeth, nl nasal mucosa & septum Neck: non-tender, supple Respiratory: clear to auscultation, normal air movement Cardiovascular: nl pulses, regular rate and rhythm Gastrointestinal: nl liver, spleen, non-tender, soft Musculoskeletal: nl extremities to inspection, nl gait and stance Extremities: normal pulses 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, nl mental status, nl speech, nl strength Skin: nl turgor, No rash or lesions Lymph: nl lymph nodes Results Result Diagram: 12/14/16 0739 12/14/16 0739 Results 24 hrs Laboratory Tests Test 12/14/16 07:39 White Blood Count 3.6 #L Red Blood Count 2.43 L Hemoglobin 7.7 L Hematocrit 24.1 L Mean Corpuscular Volume 99.2 Mean Corpuscular Hemoglobin 31.7 Mean Corpuscular Hemoglobin Concent 32.0 Red Cell Distribution Width 17.6 H Platelet Count 136 L Mean Platelet Volume 10.7 H Neutrophils % 56.9 Lymphocytes % 23.4 Monocytes % 11.5 H Eosinophils % 7.9 H Basophils % 0.3 Nucleated Red Blood Cells % 0.0 Neutrophils # (Manual) 2 Lymphocytes # 0.8 Monocytes # 0.4 Eosinophils # 0.3 Basophils # 0.0 Nucleated Red Blood Cells # 0.0 Sodium Level 140 Potassium Level 4.7 Chloride Level 90 L Carbon Dioxide Level 30 Anion Gap 25 H Blood Urea Nitrogen 53 H Creatinine 5.37 H Glucose Level 60 L Calcium Level 9.4 Ionized Calcium (Measured) 1.2 Parathyroid Hormone (Intact) Medications Medications Current Medications Acetaminophen (Tylenol Tab) 650 mg Q4H PRN PO PAIN AND OR ELEVATED TEMP; Start 12/02/16 at 23:00 Hydralazine HCl (Apresoline) 25 mg Q6H PRN PO SBP >170; Start 12/02/16 at 23:00 Morphine Sulfate (morphine) 2 mg Q4H PRN IV MODERATE PAIN LEVEL 4-6 Last administered on 12/14/16 18:53; Admin Dose 2 MG; Start 12/02/16 at 23:00 Diphenhydramine HCl (Benadryl) 25 mg Q6H PRN IV Itching Last administered on 17:28; Admin Dose 25 MG; Start 12/02/16 at 23:00 Ondansetron HCl (Zofran Inj) 4 mg Q6H PRN IV NAUSEA AND/OR VOMITING Last administered on 12/11/16 15:25; Admin Dose 4 MG; Start 12/03/16 at 19:30 Pantoprazole (Protonix Tab) 40 mg DAILY@06 PO Last administered on 12/14/16 05 :31; Admin Dose 40 MG; Start 12/04/16 at 14:00 Ibuprofen (Motrin) 600 mg Q8 PO Last administered on 12/14/16 13:34; Admin Dose 600 MG; Start 12/05/16 at 22:00 Gabapentin (Neurontin) 100 mg TID PO Last administered on 12/14/16 20:18; Admin Dose 100 MG; Start 12/06/16 at 21:00 Lubiprostone (Amitiza) 24 mcg BID PO Last administered on 12/14/16 20:18; Admin Dose 24 MCG; Start 12/07/16 at 16:30 Mineral Oil (Fleet Mineral Oil Enema) 133 ml DAILY [place] Last administered on 12/13 18:00; Admin Dose 133 ML; Start 12/09/16 at 09:00 Metoclopramide HCl (Reglan) 5 mg Q8 IV Last administered on 12/14/16 13:34; Admin Dose 5 MG; Start 12/10/16 at 14:00 Oxycodone/ Acetaminophen (Percocet (5/ 325)) 1 tab Q6H PRN PO PAIN LEVEL 6-10 Last administered on 12/12/16 06:49; Admin Dose 1 TAB; Start 12/11/16 at 15:00 FREDERIC GARCIA MD Dec 14, 2016 21:29
[2016-12-15] VITALS (12 sets, daily range): BP systolic 92–126; BP diastolic 55–62; PULSE 100–130; RESP 16–20
[2016-12-15] MEDS: morphine 2 MG INJ IV PRN ×6 (03:32→21:06)
[2016-12-15] MEDS: DIPHENHYDRAMINE 50 MG INJ IV PRN ×4 (04:34→22:24)
[2016-12-15] MEDS: METOCLOPRAMIDE 10 MG INJ IV SCH ×3 (04:36→21:02)
[2016-12-15] MEDS: PANTOPRAZOLE (EC) 40 MG TAB PO SCH (04:36)
[2016-12-15] MEDS: IBUPROFEN 600 MG TAB PO SCH ×3 (04:36→21:02)
[2016-12-15 07:52] LABS: BASOPHILS % 0.4 % (0.0-2.0); EOSINOPHILS # 0.3 10^3/ul (0.0-0.5); EOSINOPHILS % 6.3 % (0.0-7.0); HEMATOCRIT 29.1 % (37.0-47.0); LYMPHOCYTES # 0.9 10^3/ul (0.8-2.9); LYMPHOCYTES % 20.4 % (15.0-51.0); MEAN CORPUSCULAR HEMOGLOBIN 30.7 pg (29.0-33.0); MEAN CORPUSCULAR HGB CONC 30.9 g/dl (32.0-37.0); MEAN CORPUSCULAR VOLUME 99.3 fl (82.0-101.0); MONOCYTE # 0.5 10^3/ul (0.3-0.9); MONOCYTES % 11.9 % (0.0-11.0); NEUTROPHILS % 60.6 % (39.0-77.0); PLATELET COUNT 137 10^3/UL (140-415); RED BLOOD COUNT 2.93 10^6/ul (4.20-5.40); RED CELL DISTRIBUTION WIDTH 17.2 % (11.5-14.5); WHITE BLOOD COUNT 4.5 10^3/ul (4.8-10.8)
[2016-12-15 08:12] LABS: CALCIUM 10.2 mg/dl (8.4-10.2); CREATININE 4.87 mg/dl (0.44-1.00); POTASSIUM 5.5 mmol/L (3.5-5.1)
--- NOTE | 2016-12-15 08:12 | RADRPT ---
PROCEDURE: XR Abdomen. CLINICAL INDICATION: Abdominal pain TECHNIQUE: 2 AP views of the abdomen were obtained COMPARISON: None. FINDINGS: There is a nonobstructive bowel gas pattern. Moderate a large volume formed stool is seen throughout the colon. Large volume inspissated stool is seen within the rectum. No intraperitoneal free air o r pneumatosis is identified. There is no evidence of organomegaly. No abnormal soft tissue calcifi cations are seen. The visualized portion of the lung bases are clear. The osseous structures are u nremarkable. IMPRESSION: Moderate to large volume formed stool throughout the colon, consistent with constipation. There is l arge volume inspissated stool in the rectum, which may reflect rectal fecal impaction. RPTAT: HH .Debby Bonilla MD, Date Time Electronically viewed and signed by .Debby Bonilla MD, on 12/15/2016 08:11 .G/
[2016-12-15] MEDS: MINERAL OIL 133 ML ENEMA PR SCH ×2 (08:43→21:02)
[2016-12-15] MEDS: SEVELAMER 800 MG TAB PO SCH ×3 (08:46→17:15)
[2016-12-15] MEDS: GABAPENTIN 100 MG CAP PO SCH ×3 (08:46→21:02)
[2016-12-15] MEDS: LUBIPROSTONE 24 MCG CAP PO SCH ×2 (08:46→21:02)
--- NOTE | 2016-12-15 10:56 | CONS ---
Date/Time of Note Date/Time of Note DATE: 12/15/16 TIME: 10:54 Assessment/Plan Assessment/Plan Additional Assessment/Plan 1. CHF - diast HF, acute on chronic - better fluid status now - HD as needed - improved fluid status. 2. Hypotension, borderline- well Rx - no sx now - STABLe, no symptoms - stable. 3. Goiter multinodular- s/p BX, surgical team follows - posat op 4. End-stage renal disease on hemodialysis- Rx with renal team - HD as needed. 5. Hyperkalemia resolved- better - IMPROVED 6. Abdominal pain- better Consultation Date/Type/Reason Admit Date/Time Dec 02, 2016 at 17:19 Initial Consult Date 12/04/16 Type of Consultation: Endocrinology Referring Provider: LUANNE WALTER MD 24 HR Interval Summary Free Text/Dictation NO acutee vents -BP borderline - no SX. ROS: No fever, no chills, no nausea, no vomiting, no diarrhea/constipation No recent weight changes No chest pain, no PND, no orthopnea No dizziness, blurred vision No thirst, no heat or cold intolerance Exam/Review of Systems Vital Signs Vitals Vital Signs Date Time Temp Pulse Resp B/P Pulse Ox O2 Delivery O2 Flow Rate FiO2 12/15/16 08:06 102 12/15/16 08:00 97.4 18 92/55 95 12/13/16 23:23 Nasal Cannula 2.0 Intake and Output 12/14/16 12/14/16 12/15/16 15:00 23:00 07:00 Intake Total 1050 ml 600 ml Output Total 3700 ml Balance -2650 ml 600 ml Exam General: WN/WD/NAD, AOx 3 HEENT: Unicetric/atraumatic/EOMI (follows commands) NECK: JVD elevated, no thyromegaly Lymph: no lymphadenopathy HEART: regular with no S3, II/ systolic murmur at apex LUNGS: Coarse sounds ABD: soft, NT, ND, +BS : Intact Neuro: non focal SKIN: chronic changes EXT: trace edema Results Result Diagram: 12/15/16 0659 12/15/16 0659 Results 24 hrs Laboratory Tests Test 12/15/16 05:36 12/15/16 06:59 Lab Scanned Report BLOOD TRANSFUSION White Blood Count 4.5 #L Red Blood Count 2.93 #L Hemoglobin 9.0 L Hematocrit 29.1 #L Mean Corpuscular Volume 99.3 Mean Corpuscular Hemoglobin 30.7 Mean Corpuscular Hemoglobin Concent 30.9 L Red Cell Distribution Width 17.2 H Platelet Count 137 L Mean Platelet Volume 11.0 H Neutrophils % 60.6 Lymphocytes % 20.4 Monocytes % 11.9 H Eosinophils % 6.3 Basophils % 0.4 Nucleated Red Blood Cells % 0.0 Neutrophils # (Manual) 3 Lymphocytes # 0.9 Monocytes # 0.5 Eosinophils # 0.3 Basophils # 0.0 Nucleated Red Blood Cells # 0.0 Sodium Level 142 Potassium Level 5.5 H Chloride Level 94 L Carbon Dioxide Level 28 Anion Gap 26 H Blood Urea Nitrogen 62 H Creatinine 4.87 H Glucose Level 66 L Calcium Level 10.2 Medications Medications Current Medications Acetaminophen (Tylenol Tab) 650 mg Q4H PRN PO PAIN AND OR ELEVATED TEMP; Start 12/02/16 at 23:00 Hydralazine HCl (Apresoline) 25 mg Q6H PRN PO SBP >170; Start 12/02/16 at 23:00 Diphenhydramine HCl (Benadryl) 25 mg Q6H PRN IV Itching Last administered on 10:31; Admin Dose 25 MG; Start 12/02/16 at 23:00 Ondansetron HCl (Zofran Inj) 4 mg Q6H PRN IV NAUSEA AND/OR VOMITING Last administered on 12/11/16 15:25; Admin Dose 4 MG; Start 12/03/16 at 19:30 Pantoprazole (Protonix Tab) 40 mg DAILY@06 PO Last administered on 12/15/16 04 :36; Admin Dose 40 MG; Start 12/04/16 at 14:00 Ibuprofen (Motrin) 600 mg Q8 PO Last administered on 12/15/16 04:36; Admin Dose 600 MG; Start 12/05/16 at 22:00 Gabapentin (Neurontin) 100 mg TID PO Last administered on 12/15/16 08:46; Admin Dose 100 MG; Start 12/06/16 at 21:00 Lubiprostone (Amitiza) 24 mcg BID PO Last administered on 12/15/16 08:46; Admin Dose 24 MCG; Start 12/07/16 at 16:30 Mineral Oil (Fleet Mineral Oil Enema) 133 ml DAILY [place] Last administered on 12/13 18:00; Admin Dose 133 ML; Start 12/09/16 at 09:00 Metoclopramide HCl (Reglan) 5 mg Q8 IV Last administered on 12/15/16 04:36; Admin Dose 5 MG; Start 12/10/16 at 14:00 Oxycodone/ Acetaminophen (Percocet (5/ 325)) 1 tab Q6H PRN PO PAIN LEVEL 6-10 Last administered on 12/12/16 06:49; Admin Dose 1 TAB; Start 12/11/16 at 15:00 Morphine Sulfate (morphine) 2 mg Q2H PRN IV PAIN Last administered on 10:31; Admin Dose 2 MG; Start 12/15/16 at 08:00 YUMIKO HO MD Dec 15, 2016 10:56
--- NOTE | 2016-12-15 11:28 | CONS ---
Date/Time of Note Date/Time of Note DATE: 12/15/16 TIME: 11:28 Assessment/Plan Assessment/Plan Additional Assessment/Plan 1. End-stage kidney disease on hemodialysis. 2. Hyperparathyroidism, secondary, severe, with hypercalcemia and elevated alkaline phosphatase= Renal bone disease S/p Partial Parathyroidectomy 3. Anemia of chronic renal disease. 4. Thyromegaly 5. Dysphagia 6. Hyperkalemia S/p HD yesterday, MWF schedule Repeat BMP in am CORINE ordered after HD. Calcium up trending, Sensipar held Cont to monitor Volume status, Electrolytes and BP closely Kayexalate x1 Low K/Renal Diet cont current Rx and plan. Consultation Date/Type/Reason Admit Date/Time Dec 02, 2016 at 17:19 Initial Consult Date 12/04/16 Type of Consultation: Renal Referring Provider: LUANNE WALTER MD 24 HR Interval Summary Free Text/Dictation No new complaints, S/p HD yesterday Constitutional: No requiring O2 Exam/Review of Systems Vital Signs Vitals Vital Signs Date Time Temp Pulse Resp B/P Pulse Ox O2 Delivery O2 Flow Rate FiO2 12/15/16 08:06 102 12/15/16 08:00 97.4 18 92/55 95 12/13/16 23:23 Nasal Cannula 2.0 Intake and Output 12/14/16 12/14/16 12/15/16 15:00 23:00 07:00 Intake Total 1050 ml 600 ml Output Total 3700 ml Balance -2650 ml 600 ml Exam Constitutional: alert, No distress ENMT: mucosa pink and moist Neck: No jvd Respiratory: clear to auscultation Cardiovascular: regular rate and rhythm, No edema Gastrointestinal: non-tender, soft 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: MOLD CHIPPER II-XII intact, nl mental status, nl speech, nl strength, No confused, No lethargic Skin: No diaphoresis Results Result Diagram: 12/15/16 0659 12/15/16 0659 Results 24 hrs Laboratory Tests Test 12/15/16 05:36 12/15/16 06:59 Lab Scanned Report BLOOD TRANSFUSION White Blood Count 4.5 #L Red Blood Count 2.93 #L Hemoglobin 9.0 L Hematocrit 29.1 #L Mean Corpuscular Volume 99.3 Mean Corpuscular Hemoglobin 30.7 Mean Corpuscular Hemoglobin Concent 30.9 L Red Cell Distribution Width 17.2 H Platelet Count 137 L Mean Platelet Volume 11.0 H Neutrophils % 60.6 Lymphocytes % 20.4 Monocytes % 11.9 H Eosinophils % 6.3 Basophils % 0.4 Nucleated Red Blood Cells % 0.0 Neutrophils # (Manual) 3 Lymphocytes # 0.9 Monocytes # 0.5 Eosinophils # 0.3 Basophils # 0.0 Nucleated Red Blood Cells # 0.0 Sodium Level 142 Potassium Level 5.5 H Chloride Level 94 L Carbon Dioxide Level 28 Anion Gap 26 H Blood Urea Nitrogen 62 H Creatinine 4.87 H Glucose Level 66 L Calcium Level 10.2 Medications Medications Current Medications Acetaminophen (Tylenol Tab) 650 mg Q4H PRN PO PAIN AND OR ELEVATED TEMP; Start 12/02/16 at 23:00 Hydralazine HCl (Apresoline) 25 mg Q6H PRN PO SBP >170; Start 12/02/16 at 23:00 Diphenhydramine HCl (Benadryl) 25 mg Q6H PRN IV Itching Last administered on 10:31; Admin Dose 25 MG; Start 12/02/16 at 23:00 Ondansetron HCl (Zofran Inj) 4 mg Q6H PRN IV NAUSEA AND/OR VOMITING Last administered on 12/11/16 15:25; Admin Dose 4 MG; Start 12/03/16 at 19:30 Pantoprazole (Protonix Tab) 40 mg DAILY@06 PO Last administered on 12/15/16 04 :36; Admin Dose 40 MG; Start 12/04/16 at 14:00 Ibuprofen (Motrin) 600 mg Q8 PO Last administered on 12/15/16 04:36; Admin Dose 600 MG; Start 12/05/16 at 22:00 Gabapentin (Neurontin) 100 mg TID PO Last administered on 12/15/16 08:46; Admin Dose 100 MG; Start 12/06/16 at 21:00 Lubiprostone (Amitiza) 24 mcg BID PO Last administered on 12/15/16 08:46; Admin Dose 24 MCG; Start 12/07/16 at 16:30 Mineral Oil (Fleet Mineral Oil Enema) 133 ml DAILY [place] Last administered on 12/13 18:00; Admin Dose 133 ML; Start 12/09/16 at 09:00 Metoclopramide HCl (Reglan) 5 mg Q8 IV Last administered on 12/15/16 04:36; Admin Dose 5 MG; Start 12/10/16 at 14:00 Oxycodone/ Acetaminophen (Percocet (5/ 325)) 1 tab Q6H PRN PO PAIN LEVEL 6-10 Last administered on 12/12/16 06:49; Admin Dose 1 TAB; Start 12/11/16 at 15:00 Morphine Sulfate (morphine) 2 mg Q2H PRN IV PAIN Last administered on 10:31; Admin Dose 2 MG; Start 12/15/16 at 08:00 JUANJO TATUM MD Dec 15, 2016 11:28
[2016-12-15] MEDS ORDERED: NA POLYST SULFON 15 GM/60 ML BTL PO ONE (11:30)
--- NOTE | 2016-12-15 12:32 | PN ---
Date/Time of Note Date/Time of Note DATE: 12/15/16 TIME: 12:24 Assessment/Plan VTE Prophylaxis VTE Prophylaxis Intervention: SCD's Lines/Catheters IV [facility]ter Type (from [facility]): Peripheral IV Urinary Cath still in place: No Assessment/Plan Chief Complaint/Hosp Course Patient's potassium is 5.5, status post Kayexalate. Patient is status post blood transfusion with hemodialysis yesterday. Assessment/Plan -Hyperkalemia, status post Kayexalate. -Large left compressive parathyroid adenoma. S/p partial left thyroid lobectomy , left upper and lower parathyroidectomy by Dr Morales. -Dysphagia and odynophagia secondary to #1, resolved. Dr. Smallwood is following in gastroenterology consultation. Patient status post recent EGD at [facility]. -Thyrotoxicosis with multinodular goiter, Dr. Damon is following in endocrinology consultation. Recommendation to recheck thyroid labs in 4-6 weeks. -Secondary hyperparathyroidism due to renal disease. -Hemodialysis dependent end-stage renal disease, Dr. Núñez is following in nephrology, continue hemodialysis per nephrology. -Central stenosis, Dr. Francisco is following in vascular surgery consultation. Status post left upper extremity fistulogram. -Anemia, status post blood transfusion, continue to monitor hemoglobin and hematocrit. Further recommendations based on clinical course. Plan of care discussed with Dr. Turner Problems: Exam/Review of Systems Vital Signs Vitals Vital Signs Date Time Temp Pulse Resp B/P Pulse Ox O2 Delivery O2 Flow Rate FiO2 12/15/16 12:06 117 12/15/16 11:47 98.3 16 111/57 98 12/13/16 23:23 Nasal Cannula 2.0 Intake and Output 12/14/16 12/14/16 12/15/16 15:00 23:00 07:00 Intake Total 1050 ml 600 ml Output Total 3700 ml Balance -2650 ml 600 ml Exam Constitutional: alert, oriented Neck: Status post surgery Cardiovascular: nl pulses Gastrointestinal: non-tender, soft Extremities: normal pulses, other (Left upper extremity AV fistula) 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: nl mental status Results Result Diagram: 12/15/16 0659 12/15/16 0659 Results 24 hrs Laboratory Tests Test 12/15/16 05:36 12/15/16 06:59 Lab Scanned Report BLOOD TRANSFUSION White Blood Count 4.5 #L Red Blood Count 2.93 #L Hemoglobin 9.0 L Hematocrit 29.1 #L Mean Corpuscular Volume 99.3 Mean Corpuscular Hemoglobin 30.7 Mean Corpuscular Hemoglobin Concent 30.9 L Red Cell Distribution Width 17.2 H Platelet Count 137 L Mean Platelet Volume 11.0 H Neutrophils % 60.6 Lymphocytes % 20.4 Monocytes % 11.9 H Eosinophils % 6.3 Basophils % 0.4 Nucleated Red Blood Cells % 0.0 Neutrophils # (Manual) 3 Lymphocytes # 0.9 Monocytes # 0.5 Eosinophils # 0.3 Basophils # 0.0 Nucleated Red Blood Cells # 0.0 Sodium Level 142 Potassium Level 5.5 H Chloride Level 94 L Carbon Dioxide Level 28 Anion Gap 26 H Blood Urea Nitrogen 62 H Creatinine 4.87 H Glucose Level 66 L Calcium Level 10.2 Medications Medications Current Medications Acetaminophen (Tylenol Tab) 650 mg Q4H PRN PO PAIN AND OR ELEVATED TEMP; Start 12/02/16 at 23:00 Hydralazine HCl (Apresoline) 25 mg Q6H PRN PO SBP >170; Start 12/02/16 at 23:00 Diphenhydramine HCl (Benadryl) 25 mg Q6H PRN IV Itching Last administered on 10:31; Admin Dose 25 MG; Start 12/02/16 at 23:00 Ondansetron HCl (Zofran Inj) 4 mg Q6H PRN IV NAUSEA AND/OR VOMITING Last administered on 12/11/16 15:25; Admin Dose 4 MG; Start 12/03/16 at 19:30 Pantoprazole (Protonix Tab) 40 mg DAILY@06 PO Last administered on 12/15/16 04 :36; Admin Dose 40 MG; Start 12/04/16 at 14:00 Ibuprofen (Motrin) 600 mg Q8 PO Last administered on 12/15/16 04:36; Admin Dose 600 MG; Start 12/05/16 at 22:00 Gabapentin (Neurontin) 100 mg TID PO Last administered on 12/15/16 12:04; Admin Dose 100 MG; Start 12/06/16 at 21:00 Lubiprostone (Amitiza) 24 mcg BID PO Last administered on 12/15/16 08:46; Admin Dose 24 MCG; Start 12/07/16 at 16:30 Mineral Oil (Fleet Mineral Oil Enema) 133 ml DAILY [place] Last administered on 12/13 18:00; Admin Dose 133 ML; Start 12/09/16 at 09:00 Metoclopramide HCl (Reglan) 5 mg Q8 IV Last administered on 12/15/16 04:36; Admin Dose 5 MG; Start 12/10/16 at 14:00 Oxycodone/ Acetaminophen (Percocet (5/ 325)) 1 tab Q6H PRN PO PAIN LEVEL 6-10 Last administered on 12/12/16 06:49; Admin Dose 1 TAB; Start 12/11/16 at 15:00 Morphine Sulfate (morphine) 2 mg Q2H PRN IV PAIN Last administered on 10:31; Admin Dose 2 MG; Start 12/15/16 at 08:00 ERICK ROBERTSON Dec 15, 2016 12:32
[2016-12-15] MEDS ORDERED: MINERAL OIL 133 ML ENEMA PR ONE (14:30)
[2016-12-15] MEDS: MINERAL OIL 30ML CUP PO SCH ×2 (14:57→21:01)
--- NOTE | 2016-12-15 18:23 | PN ---
Date/Time of Note Date/Time of Note DATE: 12/15/16 TIME: 18:22 Assessment/Plan Lines/Catheters IV Catheter Type (from [facility]): Peripheral IV Stephen in Place (from [facility]): No Assessment/Plan Chief Complaint/Hosp Course -End-stage renal disease and essential stenosis: It seems that the patient has a longstanding history of end-stage renal disease with multiple chest wall catheters in the past. Our concern upon evaluation of the patient, it seems the patient has significant superficial veins on her chest, left neck, and her abdominal quadrant, which can suggest possible significant central stenosis. -S/P LUE Fistulogram demonstrated significant central stenosis/occlusion of the SVC with a prominent azygous vein. Patient did not have significant neck or IJ reflux during her venogram -Will follow as outpt for fistula surveillance -Optimize vascular status (blood pressure meds, diet, nutrition, exercise, sugar control). -Discussed findings, plan and management with the patient with a certified hr associate and she understands. -Thank you for allowing us to partake in the care of your patient. Please call with any questions. Problems: Subjective 24 Hr Interval Summary no new vascular events overnight Exam/Review of Systems Vital Signs Vitals Vital Signs Date Time Temp Pulse Resp B/P Pulse Ox O2 Delivery O2 Flow Rate FiO2 12/15/16 16:09 110 12/15/16 15:56 98.7 18 108/58 96 12/13/16 23:23 Nasal Cannula 2.0 Intake and Output 12/14/16 12/14/16 12/15/16 15:00 23:00 07:00 Intake Total 1050 ml 600 ml Output Total 3700 ml Balance -2650 ml 600 ml Exam Free Text/Dictation GENERAL: Alert and oriented times 3. HEART: S1, S2 present LUNGS: Clear to auscultation bilaterally ABDOMEN: Soft, nontender, nondistended. Bowel sounds positive. EXTREMITIES: Left upper extremity, palpable brachial pulse. Motor and sensory intact. Capillary refill 2 seconds. Fistula with bruit and thrill present. Aneurysmal in the proximal aspect near the antecubital region. Results Result Diagram: 12/15/16 0659 12/15/16 0659 MIMI CORONEL MD Dec 15, 2016 18:22
--- NOTE | 2016-12-15 21:07 | CONS ---
Date/Time of Note Date/Time of Note DATE: 12/15/16 TIME: 21:06 Assessment/Plan Assessment/Plan Chief Complaint/Hosp Course 31 year old female with history of ESRD,admitted for abdominal pain,dysphagia. no nausea,vomiting or gi bleeding.No chest pain or SOB. Problems: Additional Assessment/Plan Additional Assessment/Plan Additional Assessment/Plan 1. dysphagia,mostly secondary to multinodular goiter, resolved after the surgery 2. Hypotension, borderline. 3. Goiter multinodular. 4. End-stage renal disease on hemodialysis. 5. Hyperkalemia resolved. 7. increased alkaline phosphate secondary to hyperparathyroidism 8. Gastroparesis 9. Severe constipation,better 10. Status post thyroid gland biopsy 11. Induration in the cubital fossa 12. Status post surgery parathyroid glands were removed and partial thyroidectomy done 13. Abdominal pain also resolved Plan Bentyl PPI continue present care. Consultation Date/Type/Reason Admit Date/Time Dec 02, 2016 at 17:19 Initial Consult Date 12/04/16 Type of Consultation: Renal Referring Provider: LUANNE WALTER MD 24 HR Interval Summary Free Text/Dictation feels better Exam/Review of Systems Vital Signs Vitals Vital Signs Date Time Temp Pulse Resp B/P Pulse Ox O2 Delivery O2 Flow Rate FiO2 12/15/16 19:41 98.2 109 20 110/59 98 12/13/16 23:23 Nasal Cannula 2.0 Intake and Output 12/14/16 12/14/16 12/15/16 15:00 23:00 07:00 Intake Total 1050 ml 600 ml Output Total 3700 ml Balance -2650 ml 600 ml Exam Constitutional: alert, oriented, well developed Psych: nl mood/affect, no complaints Head: atraumatic, normocephalic Eyes: EOMI, PERRL, nl conjunctiva, nl lids, nl sclera ENMT: nl external ears & nose, nl lips & teeth, nl nasal mucosa & septum Neck: non-tender, supple Respiratory: clear to auscultation, normal air movement Cardiovascular: nl pulses, regular rate and rhythm Gastrointestinal: nl liver, spleen, non-tender, soft Musculoskeletal: nl extremities to inspection, nl gait and stance Extremities: normal pulses 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: DIRECTOR VOLUNTEER SERVICES II-XII intact, nl mental status, nl speech, nl strength Skin: nl turgor, No rash or lesions Lymph: nl lymph nodes Results Result Diagram: 12/15/16 0659 12/15/16 0659 Results 24 hrs Laboratory Tests Test 12/15/16 05:36 12/15/16 06:59 Lab Scanned Report BLOOD TRANSFUSION White Blood Count 4.5 #L Red Blood Count 2.93 #L Hemoglobin 9.0 L Hematocrit 29.1 #L Mean Corpuscular Volume 99.3 Mean Corpuscular Hemoglobin 30.7 Mean Corpuscular Hemoglobin Concent 30.9 L Red Cell Distribution Width 17.2 H Platelet Count 137 L Mean Platelet Volume 11.0 H Neutrophils % 60.6 Lymphocytes % 20.4 Monocytes % 11.9 H Eosinophils % 6.3 Basophils % 0.4 Nucleated Red Blood Cells % 0.0 Neutrophils # (Manual) 3 Lymphocytes # 0.9 Monocytes # 0.5 Eosinophils # 0.3 Basophils # 0.0 Nucleated Red Blood Cells # 0.0 Sodium Level 142 Potassium Level 5.5 H Chloride Level 94 L Carbon Dioxide Level 28 Anion Gap 26 H Blood Urea Nitrogen 62 H Creatinine 4.87 H Glucose Level 66 L Calcium Level 10.2 Medications Medications Current Medications Acetaminophen (Tylenol Tab) 650 mg Q4H PRN PO PAIN AND OR ELEVATED TEMP; Start 12/02/16 at 23:00 Hydralazine HCl (Apresoline) 25 mg Q6H PRN PO SBP >170; Start 12/02/16 at 23:00 Diphenhydramine HCl (Benadryl) 25 mg Q6H PRN IV Itching Last administered on 16:32; Admin Dose 25 MG; Start 12/02/16 at 23:00 Ondansetron HCl (Zofran Inj) 4 mg Q6H PRN IV NAUSEA AND/OR VOMITING Last administered on 12/11/16 15:25; Admin Dose 4 MG; Start 12/03/16 at 19:30 Pantoprazole (Protonix Tab) 40 mg DAILY@06 PO Last administered on 12/15/16 04 :36; Admin Dose 40 MG; Start 12/04/16 at 14:00 Ibuprofen (Motrin) 600 mg Q8 PO Last administered on 12/15/16 21:02; Admin Dose 600 MG; Start 12/05/16 at 22:00 Gabapentin (Neurontin) 100 mg TID PO Last administered on 12/15/16 21:02; Admin Dose 100 MG; Start 12/06/16 at 21:00 Lubiprostone (Amitiza) 24 mcg BID PO Last administered on 12/15/16 21:02; Admin Dose 24 MCG; Start 12/07/16 at 16:30 Metoclopramide HCl (Reglan) 5 mg Q8 IV Last administered on 12/15/16 21:02; Admin Dose 5 MG; Start 12/10/16 at 14:00 Oxycodone/ Acetaminophen (Percocet (5/ 325)) 1 tab Q6H PRN PO PAIN LEVEL 6-10 Last administered on 12/12/16 06:49; Admin Dose 1 TAB; Start 12/11/16 at 15:00 Morphine Sulfate (morphine) 2 mg Q2H PRN IV PAIN Last administered on 16:32; Admin Dose 2 MG; Start 12/15/16 at 08:00 Mineral Oil (Mineral Oil) 30 ml TID PO Last administered on 12/15/16 21:01; Admin Dose 30 ML; Start 12/15/16 at 15:00 Mineral Oil (Fleet Mineral Oil Enema) 133 ml BID [place] Last administered on 21:02; Admin Dose 133 ML; Start 12/15/16 at 21:00 FREDERIC GARCIA MD Dec 15, 2016 21:07
[2016-12-16] VITALS (18 sets, daily range): BP systolic 87–120; BP diastolic 42–62; PULSE 90–115; RESP 16–19
[2016-12-16] MEDS: DIPHENHYDRAMINE 50 MG INJ IV PRN ×4 (04:37→22:37)
[2016-12-16] MEDS: morphine 2 MG INJ IV PRN ×5 (04:37→22:38)
[2016-12-16] MEDS: PANTOPRAZOLE (EC) 40 MG TAB PO SCH (05:11)
[2016-12-16] MEDS: IBUPROFEN 600 MG TAB PO SCH ×3 (05:11→22:37)
[2016-12-16] MEDS: METOCLOPRAMIDE 10 MG INJ IV SCH ×3 (05:11→22:37)
[2016-12-16] MEDS: LUBIPROSTONE 24 MCG CAP PO SCH ×2 (08:45→20:22)
[2016-12-16] MEDS: MINERAL OIL 30ML CUP PO SCH ×3 (08:45→20:22)
[2016-12-16] MEDS: GABAPENTIN 100 MG CAP PO SCH ×3 (08:45→20:22)
[2016-12-16] MEDS: MINERAL OIL 133 ML ENEMA PR SCH ×2 (08:45→20:28)
[2016-12-16] MEDS: SEVELAMER 800 MG TAB PO SCH ×3 (08:46→17:10)
[2016-12-16 08:49] LABS: BASOPHILS % 0.6 % (0.0-2.0); EOSINOPHILS # 0.3 10^3/ul (0.0-0.5); EOSINOPHILS % 8.9 % (0.0-7.0); HEMATOCRIT 26.3 % (37.0-47.0); HEMOGLOBIN 8.5 g/dl (12.0-16.0); LYMPHOCYTES # 0.9 10^3/ul (0.8-2.9); LYMPHOCYTES % 25.6 % (15.0-51.0); MEAN CORPUSCULAR HEMOGLOBIN 31.5 pg (29.0-33.0); MEAN CORPUSCULAR HGB CONC 32.3 g/dl (32.0-37.0); MEAN CORPUSCULAR VOLUME 97.4 fl (82.0-101.0); MEAN PLATELET VOLUME 10.9 fl (7.4-10.4); MONOCYTE # 0.4 10^3/ul (0.3-0.9); MONOCYTES % 11.4 % (0.0-11.0); NEUTROPHILS % 53.2 % (39.0-77.0); PLATELET COUNT 136 10^3/UL (140-415); RED CELL DISTRIBUTION WIDTH 16.4 % (11.5-14.5); WHITE BLOOD COUNT 3.6 10^3/ul (4.8-10.8)
[2016-12-16 09:17] LABS: CALCIUM 9.4 mg/dl (8.4-10.2); CREATININE 6.7 mg/dl (0.44-1.00)
--- NOTE | 2016-12-16 12:56 | CONS ---
Date/Time of Note Date/Time of Note DATE: 12/16/16 TIME: 12:53 Assessment/Plan Assessment/Plan Chief Complaint/Hosp Course Pt is anxiously aawaiting further studies Problems: Additional Assessment/Plan Discussed case with ENT, f/u PTH not yet back. Pt still having high SK, will change diet & Consult RD HD today Consultation Date/Type/Reason Admit Date/Time Dec 02, 2016 at 17:19 Initial Consult Date 12/04/16 Type of Consultation: Renal Referring Provider: LUANNE WALTER MD 24 HR Interval Summary Free Text/Dictation Pt is in good spirits Exam/Review of Systems Vital Signs Vitals Vital Signs Date Time Temp Pulse Resp B/P Pulse Ox O2 Delivery O2 Flow Rate FiO2 12/16/16 12:02 98.4 102 16 114/56 96 12/13/16 23:23 Nasal Cannula 2.0 Intake and Output 12/15/16 12/15/16 12/16/16 15:00 23:00 07:00 Intake Total 800 ml 200 ml Balance 800 ml 200 ml Exam no new complaints Constitutional: alert, oriented, well developed Psych: nl mood/affect, no complaints Head: atraumatic, normocephalic Eyes: EOMI, PERRL, nl conjunctiva, nl lids, nl sclera ENMT: nl external ears & nose, nl lips & teeth, nl nasal mucosa & septum Neck: non-tender, other (sx dressing in place), supple Respiratory: clear to auscultation, normal air movement Cardiovascular: nl pulses, regular rate and rhythm Gastrointestinal: nl liver, spleen, non-tender, soft Musculoskeletal: nl extremities to inspection, nl gait and stance Extremities: normal pulses, other (lt arm avf in place) 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: GRIEVANCE AND APPEALS SPECIALIST II-XII intact, nl mental status, nl speech, nl strength Skin: nl turgor, other (pale), No rash or lesions Lymph: nl lymph nodes Results Result Diagram: 12/16/16 0742 12/16/16 0742 Results 24 hrs Laboratory Tests Test 12/16/16 07:42 White Blood Count 3.6 L Red Blood Count 2.70 L Hemoglobin 8.5 L Hematocrit 26.3 L Mean Corpuscular Volume 97.4 Mean Corpuscular Hemoglobin 31.5 Mean Corpuscular Hemoglobin Concent 32.3 Red Cell Distribution Width 16.4 H Platelet Count 136 L Mean Platelet Volume 10.9 H Neutrophils % 53.2 Lymphocytes % 25.6 Monocytes % 11.4 H Eosinophils % 8.9 H Basophils % 0.6 Nucleated Red Blood Cells % 0.0 Neutrophils # (Manual) 2 Lymphocytes # 0.9 Monocytes # 0.4 Eosinophils # 0.3 Basophils # 0.0 Nucleated Red Blood Cells # 0.0 Sodium Level 136 Potassium Level 6.0 H Chloride Level 89 L Carbon Dioxide Level 24 Anion Gap 29 H Blood Urea Nitrogen 97 #H Creatinine 6.70 H Glucose Level 63 L Calcium Level 9.4 Medications Medications Current Medications Acetaminophen (Tylenol Tab) 650 mg Q4H PRN PO PAIN AND OR ELEVATED TEMP; Start 12/02/16 at 23:00 Hydralazine HCl (Apresoline) 25 mg Q6H PRN PO SBP >170; Start 12/02/16 at 23:00 Diphenhydramine HCl (Benadryl) 25 mg Q6H PRN IV Itching Last administered on 04:37; Admin Dose 25 MG; Start 12/02/16 at 23:00 Ondansetron HCl (Zofran Inj) 4 mg Q6H PRN IV NAUSEA AND/OR VOMITING Last administered on 12/11/16 15:25; Admin Dose 4 MG; Start 12/03/16 at 19:30 Pantoprazole (Protonix Tab) 40 mg DAILY@06 PO Last administered on 12/16/16 05 :11; Admin Dose 40 MG; Start 12/04/16 at 14:00 Ibuprofen (Motrin) 600 mg Q8 PO Last administered on 12/16/16 05:11; Admin Dose 600 MG; Start 12/05/16 at 22:00 Gabapentin (Neurontin) 100 mg TID PO Last administered on 12/16/16 08:45; Admin Dose 100 MG; Start 12/06/16 at 21:00 Lubiprostone (Amitiza) 24 mcg BID PO Last administered on 12/16/16 08:45; Admin Dose 24 MCG; Start 12/07/16 at 16:30 Metoclopramide HCl (Reglan) 5 mg Q8 IV Last administered on 12/16/16 05:11; Admin Dose 5 MG; Start 12/10/16 at 14:00 Oxycodone/ Acetaminophen (Percocet (5/ 325)) 1 tab Q6H PRN PO PAIN LEVEL 6-10 Last administered on 12/12/16 06:49; Admin Dose 1 TAB; Start 12/11/16 at 15:00 Morphine Sulfate (morphine) 2 mg Q2H PRN IV PAIN Last administered on 08:46; Admin Dose 2 MG; Start 12/15/16 at 08:00 Mineral Oil (Mineral Oil) 30 ml TID PO Last administered on 12/16/16 08:45; Admin Dose 30 ML; Start 12/15/16 at 15:00 Mineral Oil (Fleet Mineral Oil Enema) 133 ml BID [place] Last administered on 08:45; Admin Dose 133 ML; Start 12/15/16 at 21:00 CAMERON ISIDRO MD Dec 16, 2016 12:55
--- NOTE | 2016-12-16 13:30 | CONS ---
Date/Time of Note Date/Time of Note DATE: 12/16/16 TIME: 13:27 Assessment/Plan Assessment/Plan Chief Complaint/Hosp Course 1. Increased BNP, assess congestive heart failure with secondary renal failure.- no sig sob at this time. NL EF by echo 2. Hypotension, borderline. 3. Goiter multinodular. 4. End-stage renal disease on hemodialysis. 5. Hyperkalemia resolved. 6. Abdominal pain. 7. Hyperthyroid 8. Tachycardia-S Tach 9.Hyperparathyroid s/p partial thyroidectomy Recc: -Tele -Ongoing eval of mutinodular goiter -HD for volume removal -Follow marginal BP closely Problems: Consultation Date/Type/Reason Admit Date/Time Dec 02, 2016 at 17:19 Initial Consult Date 12/03/2016 Type of Consultation: cardiology Reason for Consultation BNP Referring Provider: LUANNE WALTER MD Exam/Review of Systems Vital Signs Vitals Vital Signs Date Time Temp Pulse Resp B/P Pulse Ox O2 Delivery O2 Flow Rate FiO2 12/16/16 12:02 98.4 102 16 114/56 96 12/13/16 23:23 Nasal Cannula 2.0 Intake and Output 12/15/16 12/15/16 12/16/16 15:00 23:00 07:00 Intake Total 800 ml 200 ml Balance 800 ml 200 ml Exam Review of Systems: CONSTITUTIONAL: No fevers, chills. PULMONARY: No sob CARDIOVASCULAR: No chest pain/palpitations GASTROINTESTINAL: No nausea/vomiting. GENITOURINARY: No hematuria/dysuria. MUSCULOSKELETAL: No myagias/arthalgias. PSYCHIATRIC: The patient denies depression. NEUROLOGIC: No weakness Constitutional: alert Psych: no complaints Head: normocephalic ENMT: mucosa pink and moist Neck: other (covered by dressing), thyromegaly Respiratory: clear to auscultation Cardiovascular: regular rate and rhythm Gastrointestinal: non-tender, soft Musculoskeletal: muscle tone (normal) Extremities: edema (none) 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: other (NO focal deficits) Results Result Diagram: 12/16/16 0742 12/16/16 0742 Results 24 hrs Laboratory Tests Test 12/16/16 07:42 White Blood Count 3.6 L Red Blood Count 2.70 L Hemoglobin 8.5 L Hematocrit 26.3 L Mean Corpuscular Volume 97.4 Mean Corpuscular Hemoglobin 31.5 Mean Corpuscular Hemoglobin Concent 32.3 Red Cell Distribution Width 16.4 H Platelet Count 136 L Mean Platelet Volume 10.9 H Neutrophils % 53.2 Lymphocytes % 25.6 Monocytes % 11.4 H Eosinophils % 8.9 H Basophils % 0.6 Nucleated Red Blood Cells % 0.0 Neutrophils # (Manual) 2 Lymphocytes # 0.9 Monocytes # 0.4 Eosinophils # 0.3 Basophils # 0.0 Nucleated Red Blood Cells # 0.0 Sodium Level 136 Potassium Level 6.0 H Chloride Level 89 L Carbon Dioxide Level 24 Anion Gap 29 H Blood Urea Nitrogen 97 #H Creatinine 6.70 H Glucose Level 63 L Calcium Level 9.4 Medications Medications Current Medications Acetaminophen (Tylenol Tab) 650 mg Q4H PRN PO PAIN AND OR ELEVATED TEMP; Start 12/02/16 at 23:00 Hydralazine HCl (Apresoline) 25 mg Q6H PRN PO SBP >170; Start 12/02/16 at 23:00 Diphenhydramine HCl (Benadryl) 25 mg Q6H PRN IV Itching Last administered on 04:37; Admin Dose 25 MG; Start 12/02/16 at 23:00 Ondansetron HCl (Zofran Inj) 4 mg Q6H PRN IV NAUSEA AND/OR VOMITING Last administered on 12/11/16 15:25; Admin Dose 4 MG; Start 12/03/16 at 19:30 Pantoprazole (Protonix Tab) 40 mg DAILY@06 PO Last administered on 12/16/16 05 :11; Admin Dose 40 MG; Start 12/04/16 at 14:00 Ibuprofen (Motrin) 600 mg Q8 PO Last administered on 12/16/16 05:11; Admin Dose 600 MG; Start 12/05/16 at 22:00 Gabapentin (Neurontin) 100 mg TID PO Last administered on 12/16/16 08:45; Admin Dose 100 MG; Start 12/06/16 at 21:00 Lubiprostone (Amitiza) 24 mcg BID PO Last administered on 12/16/16 08:45; Admin Dose 24 MCG; Start 12/07/16 at 16:30 Metoclopramide HCl (Reglan) 5 mg Q8 IV Last administered on 12/16/16 05:11; Admin Dose 5 MG; Start 12/10/16 at 14:00 Oxycodone/ Acetaminophen (Percocet (5/ 325)) 1 tab Q6H PRN PO PAIN LEVEL 6-10 Last administered on 12/12/16 06:49; Admin Dose 1 TAB; Start 12/11/16 at 15:00 Morphine Sulfate (morphine) 2 mg Q2H PRN IV PAIN Last administered on 08:46; Admin Dose 2 MG; Start 12/15/16 at 08:00 Mineral Oil (Mineral Oil) 30 ml TID PO Last administered on 12/16/16 08:45; Admin Dose 30 ML; Start 12/15/16 at 15:00 Mineral Oil (Fleet Mineral Oil Enema) 133 ml BID [place] Last administered on 08:45; Admin Dose 133 ML; Start 12/15/16 at 21:00 HENRIQUE GARCIA Dec 16, 2016 13:29
[2016-12-16] MEDS: OXYCODONE/ACETAMINOPHEN (5/325) TAB PO PRN (13:41)
--- NOTE | 2016-12-16 14:21 | PN ---
Date/Time of Note Date/Time of Note DATE: 12/16/16 TIME: 14:18 Assessment/Plan VTE Prophylaxis VTE Prophylaxis Intervention: SCD's Lines/Catheters IV Catheter Type (from [facility], [place]): Peripheral IV Urinary Cath still in place: No Assessment/Plan Chief Complaint/Hosp Course Patient with persistent hyperkalemia, will undergo hemodialysis today and tomorrow. Assessment/Plan -Hyperkalemia, continue management per nephrology. -Constipation, continue patient on bowel regimen. -Large left compressive parathyroid adenoma. S/p partial left thyroid lobectomy , left upper and lower parathyroidectomy by Dr Morales. -Dysphagia and odynophagia secondary to #1, resolved. Dr. Smallwood is following in gastroenterology consultation. Patient status post recent EGD at [facility]. -Thyrotoxicosis with multinodular goiter, Dr. Damon is following in endocrinology consultation. Recommendation to recheck thyroid labs in 4-6 weeks. -Secondary hyperparathyroidism due to renal disease. -Hemodialysis dependent end-stage renal disease, Dr. Núñez is following in nephrology, continue hemodialysis per nephrology. -Central stenosis, Dr. Francisco is following in vascular surgery consultation. Status post left upper extremity fistulogram. -Anemia, status post blood transfusion, continue to monitor hemoglobin and hematocrit. Further recommendations based on clinical course. Plan of care discussed with Dr. Turner Problems: Exam/Review of Systems Vital Signs Vitals Vital Signs Date Time Temp Pulse Resp B/P Pulse Ox O2 Delivery O2 Flow Rate FiO2 12/16/16 12:02 98.4 102 16 114/56 96 12/13/16 23:23 Nasal Cannula 2.0 Intake and Output 12/15/16 12/15/16 12/16/16 15:00 23:00 07:00 Intake Total 800 ml 200 ml Balance 800 ml 200 ml Exam Constitutional: alert, oriented Neck: Status post surgery Cardiovascular: nl pulses Gastrointestinal: non-tender, soft Extremities: normal pulses, other (Left upper extremity AV fistula) 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: nl mental status Results Result Diagram: 12/16/16 0742 12/16/16 0742 Results 24 hrs Laboratory Tests Test 12/16/16 07:42 White Blood Count 3.6 L Red Blood Count 2.70 L Hemoglobin 8.5 L Hematocrit 26.3 L Mean Corpuscular Volume 97.4 Mean Corpuscular Hemoglobin 31.5 Mean Corpuscular Hemoglobin Concent 32.3 Red Cell Distribution Width 16.4 H Platelet Count 136 L Mean Platelet Volume 10.9 H Neutrophils % 53.2 Lymphocytes % 25.6 Monocytes % 11.4 H Eosinophils % 8.9 H Basophils % 0.6 Nucleated Red Blood Cells % 0.0 Neutrophils # (Manual) 2 Lymphocytes # 0.9 Monocytes # 0.4 Eosinophils # 0.3 Basophils # 0.0 Nucleated Red Blood Cells # 0.0 Sodium Level 136 Potassium Level 6.0 H Chloride Level 89 L Carbon Dioxide Level 24 Anion Gap 29 H Blood Urea Nitrogen 97 #H Creatinine 6.70 H Glucose Level 63 L Calcium Level 9.4 Medications Medications Current Medications Acetaminophen (Tylenol Tab) 650 mg Q4H PRN PO PAIN AND OR ELEVATED TEMP; Start 12/02/16 at 23:00 Hydralazine HCl (Apresoline) 25 mg Q6H PRN PO SBP >170; Start 12/02/16 at 23:00 Diphenhydramine HCl (Benadryl) 25 mg Q6H PRN IV Itching Last administered on 04:37; Admin Dose 25 MG; Start 12/02/16 at 23:00 Ondansetron HCl (Zofran Inj) 4 mg Q6H PRN IV NAUSEA AND/OR VOMITING Last administered on 12/11/16 15:25; Admin Dose 4 MG; Start 12/03/16 at 19:30 Pantoprazole (Protonix Tab) 40 mg DAILY@06 PO Last administered on 12/16/16 05 :11; Admin Dose 40 MG; Start 12/04/16 at 14:00 Ibuprofen (Motrin) 600 mg Q8 PO Last administered on 12/16/16 05:11; Admin Dose 600 MG; Start 12/05/16 at 22:00 Gabapentin (Neurontin) 100 mg TID PO Last administered on 12/16/16 08:45; Admin Dose 100 MG; Start 12/06/16 at 21:00 Lubiprostone (Amitiza) 24 mcg BID PO Last administered on 12/16/16 08:45; Admin Dose 24 MCG; Start 12/07/16 at 16:30 Metoclopramide HCl (Reglan) 5 mg Q8 IV Last administered on 12/16/16 13:42; Admin Dose 5 MG; Start 12/10/16 at 14:00 Oxycodone/ Acetaminophen (Percocet (5/ 325)) 1 tab Q6H PRN PO PAIN LEVEL 6-10 Last administered on 12/16/16 13:41; Admin Dose 1 TAB; Start 12/11/16 at 15:00 Morphine Sulfate (morphine) 2 mg Q2H PRN IV PAIN Last administered on 08:46; Admin Dose 2 MG; Start 12/15/16 at 08:00 Mineral Oil (Mineral Oil) 30 ml TID PO Last administered on 12/16/16 08:45; Admin Dose 30 ML; Start 12/15/16 at 15:00 Mineral Oil (Fleet Mineral Oil Enema) 133 ml BID [place] Last administered on 08:45; Admin Dose 133 ML; Start 12/15/16 at 21:00 ERICK ROBERTSON Dec 16, 2016 14:21
[2016-12-16] MEDS: EPOETIN 10000 UNITS/1 ML INJ (ESRD) SC SCH (18:47)
--- NOTE | 2016-12-16 21:18 | CONS ---
Date/Time of Note Date/Time of Note DATE: 12/16/16 TIME: 21:17 Assessment/Plan Assessment/Plan Chief Complaint/Hosp Course 31 year old female with history of ESRD,admitted for abdominal pain,dysphagia. no nausea,vomiting or gi bleeding.No chest pain or SOB. Problems: Additional Assessment/Plan Additional Assessment/Plan Additional Assessment/Plan 1. dysphagia,mostly secondary to multinodular goiter, resolved after the surgery 2. Hypotension, borderline. 3. Goiter multinodular. 4. End-stage renal disease on hemodialysis. 5. Hyperkalemia resolved. 7. increased alkaline phosphate secondary to hyperparathyroidism 8. Gastroparesis 9. Severe constipation,better 10. Status post thyroid gland biopsy 11. Induration in the cubital fossa 12. Status post surgery parathyroid glands were removed and partial thyroidectomy done 13. Abdominal pain also resolved Pl continue present care. Consultation Date/Type/Reason Admit Date/Time Dec 02, 2016 at 17:19 Initial Consult Date 12/04/16 Type of Consultation: cardiology Referring Provider: LUANNE WALTER MD 24 HR Interval Summary Constitutional: improved Exam/Review of Systems Vital Signs Vitals Vital Signs Date Time Temp Pulse Resp B/P Pulse Ox O2 Delivery O2 Flow Rate FiO2 12/16/16 20:39 98.6 100 19 93/55 96 12/13/16 23:23 Nasal Cannula 2.0 Intake and Output 12/15/16 12/15/16 12/16/16 15:00 23:00 07:00 Intake Total 800 ml 200 ml Balance 800 ml 200 ml Exam Constitutional: alert, oriented, well developed Psych: nl mood/affect, no complaints Head: atraumatic, normocephalic Eyes: EOMI, PERRL, nl conjunctiva, nl lids, nl sclera ENMT: nl external ears & nose, nl lips & teeth, nl nasal mucosa & septum Neck: non-tender, supple Respiratory: clear to auscultation, normal air movement Cardiovascular: nl pulses, regular rate and rhythm Gastrointestinal: nl liver, spleen, non-tender, soft Musculoskeletal: nl extremities to inspection, nl gait and stance Extremities: normal pulses 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: GANG LEADER II-XII intact, nl mental status, nl speech, nl strength Skin: nl turgor, No rash or lesions Lymph: nl lymph nodes Results Result Diagram: 12/16/16 0742 12/16/16 0742 Results 24 hrs Laboratory Tests Test 12/16/16 07:42 White Blood Count 3.6 L Red Blood Count 2.70 L Hemoglobin 8.5 L Hematocrit 26.3 L Mean Corpuscular Volume 97.4 Mean Corpuscular Hemoglobin 31.5 Mean Corpuscular Hemoglobin Concent 32.3 Red Cell Distribution Width 16.4 H Platelet Count 136 L Mean Platelet Volume 10.9 H Neutrophils % 53.2 Lymphocytes % 25.6 Monocytes % 11.4 H Eosinophils % 8.9 H Basophils % 0.6 Nucleated Red Blood Cells % 0.0 Neutrophils # (Manual) 2 Lymphocytes # 0.9 Monocytes # 0.4 Eosinophils # 0.3 Basophils # 0.0 Nucleated Red Blood Cells # 0.0 Sodium Level 136 Potassium Level 6.0 H Chloride Level 89 L Carbon Dioxide Level 24 Anion Gap 29 H Blood Urea Nitrogen 97 #H Creatinine 6.70 H Glucose Level 63 L Calcium Level 9.4 Medications Medications Current Medications Acetaminophen (Tylenol Tab) 650 mg Q4H PRN PO PAIN AND OR ELEVATED TEMP; Start 12/02/16 at 23:00 Hydralazine HCl (Apresoline) 25 mg Q6H PRN PO SBP >170; Start 12/02/16 at 23:00 Diphenhydramine HCl (Benadryl) 25 mg Q6H PRN IV Itching Last administered on 18:33; Admin Dose 25 MG; Start 12/02/16 at 23:00 Ondansetron HCl (Zofran Inj) 4 mg Q6H PRN IV NAUSEA AND/OR VOMITING Last administered on 12/11/16 15:25; Admin Dose 4 MG; Start 12/03/16 at 19:30 Pantoprazole (Protonix Tab) 40 mg DAILY@06 PO Last administered on 12/16/16 05 :11; Admin Dose 40 MG; Start 12/04/16 at 14:00 Ibuprofen (Motrin) 600 mg Q8 PO Last administered on 12/16/16 05:11; Admin Dose 600 MG; Start 12/05/16 at 22:00 Gabapentin (Neurontin) 100 mg TID PO Last administered on 12/16/16 20:22; Admin Dose 100 MG; Start 12/06/16 at 21:00 Lubiprostone (Amitiza) 24 mcg BID PO Last administered on 12/16/16 20:22; Admin Dose 24 MCG; Start 12/07/16 at 16:30 Metoclopramide HCl (Reglan) 5 mg Q8 IV Last administered on 12/16/16 13:42; Admin Dose 5 MG; Start 12/10/16 at 14:00 Oxycodone/ Acetaminophen (Percocet (5/ 325)) 1 tab Q6H PRN PO PAIN LEVEL 6-10 Last administered on 12/16/16 13:41; Admin Dose 1 TAB; Start 12/11/16 at 15:00 Morphine Sulfate (morphine) 2 mg Q2H PRN IV PAIN Last administered on 20:23; Admin Dose 2 MG; Start 12/15/16 at 08:00 Mineral Oil (Mineral Oil) 30 ml TID PO Last administered on 12/16/16 20:22; Admin Dose 30 ML; Start 12/15/16 at 15:00 Mineral Oil (Fleet Mineral Oil Enema) 133 ml BID [place] Last administered on 08:45; Admin Dose 133 ML; Start 12/15/16 at 21:00 FREDERIC GARCIA MD Dec 16, 2016 21:18
[2016-12-17] VITALS (15 sets, daily range): BP systolic 84–113; BP diastolic 41–59; PULSE 96–123; RESP 18–19
[2016-12-17] MEDS: DIPHENHYDRAMINE 50 MG INJ IV PRN ×4 (05:11→23:27)
[2016-12-17] MEDS: PANTOPRAZOLE (EC) 40 MG TAB PO SCH (05:11)
[2016-12-17] MEDS: METOCLOPRAMIDE 10 MG INJ IV SCH ×3 (05:11→21:13)
[2016-12-17] MEDS: IBUPROFEN 600 MG TAB PO SCH ×3 (05:11→21:13)
[2016-12-17] MEDS: morphine 2 MG INJ IV PRN ×3 (05:12→21:01)
[2016-12-17 08:26] LABS: BASOPHILS % 0.7 % (0.0-2.0); EOSINOPHILS # 0.3 10^3/ul (0.0-0.5); HEMATOCRIT 28.4 % (37.0-47.0); LYMPHOCYTES # 1.1 10^3/ul (0.8-2.9); LYMPHOCYTES % 26.5 % (15.0-51.0); MEAN CORPUSCULAR HEMOGLOBIN 31.5 pg (29.0-33.0); MEAN CORPUSCULAR HGB CONC 31.7 g/dl (32.0-37.0); MEAN CORPUSCULAR VOLUME 99.3 fl (82.0-101.0); MEAN PLATELET VOLUME 10.8 fl (7.4-10.4); MONOCYTE # 0.5 10^3/ul (0.3-0.9); MONOCYTES % 11.2 % (0.0-11.0); NEUTROPHILS % 54.1 % (39.0-77.0); PLATELET COUNT 148 10^3/UL (140-415); RED BLOOD COUNT 2.86 10^6/ul (4.20-5.40); RED CELL DISTRIBUTION WIDTH 16.5 % (11.5-14.5); WHITE BLOOD COUNT 4.3 10^3/ul (4.8-10.8)
[2016-12-17] MEDS ORDERED: SOD CHLORIDE 0.9% 250 ML IV ONE (08:30)
[2016-12-17] MEDS: MINERAL OIL 133 ML ENEMA PR SCH ×3 (08:56→18:44)
[2016-12-17] MEDS: SEVELAMER 800 MG TAB PO SCH ×3 (08:56→17:21)
[2016-12-17] MEDS: GABAPENTIN 100 MG CAP PO SCH ×3 (08:56→20:47)
[2016-12-17] MEDS: MINERAL OIL 30ML CUP PO SCH ×3 (08:56→20:47)
[2016-12-17] MEDS: LUBIPROSTONE 24 MCG CAP PO SCH ×2 (08:57→20:47)
[2016-12-17 09:02] LABS: CALCIUM 9.7 mg/dl (8.4-10.2); CREATININE 5.37 mg/dl (0.44-1.00)
--- NOTE | 2016-12-17 09:50 | PN ---
Date/Time of Note Date/Time of Note DATE: 12/17/16 TIME: 09:44 Assessment/Plan VTE Prophylaxis VTE Prophylaxis Intervention: other Lines/Catheters [facility] Saline Lock Urinary Cath still in place: No Assessment/Plan Assessment/Plan - Hypotension - Resolved, SP NS bolus BP 11/54. cont to monitor -Hyperkalemia- RESOLVED - continue management per nephrology. -Constipation, continue patient on bowel regimen- RESOLVED- patient has x 3 bms. - per GI - KUB showed Moderate to large volume formed stool throughout the colon, consistent with constipation. There is large volume inspissated stool in the rectum, which may reflect rectal fecal impaction -Large left compressive parathyroid adenoma. S/p partial left thyroid lobectomy , left upper and lower parathyroidectomy by Dr Morales. - per surgery -Dysphagia and odynophagia secondary to #1, resolved. Dr. Smallwood is following in gastroenterology consultation. Patient status post recent EGD at [facility]. -Thyrotoxicosis with multinodular goiter, Dr. Damon is following in endocrinology consultation. Recommendation to recheck thyroid labs in 4-6 weeks. -Secondary hyperparathyroidism due to renal disease. -Hemodialysis dependent end-stage renal disease - Dr. Núñez is following in nephrology, continue hemodialysis per nephrology. -Central stenosis - Dr. Francisco is following in vascular surgery consultation. Status post left upper extremity fistulogram. -Anemia, status post blood transfusion, continue to monitor hemoglobin and hematocrit. Further recommendations based on clinical course. Plan of care discussed with Dr. Turner Subjective 24 Hr Interval Summary Free Text/Dictation resting in bed, feels better, bp stable, has bm today. wants to go home. staff Respiratory: no complaints Cardiovascular: no complaints Gastrointestinal: no complaints Genitourinary: no complaints Musculoskeletal: no complaints Skin: no complaints Exam/Review of Systems Vital Signs Vitals Vital Signs Date Time Temp Pulse Resp B/P Pulse Ox O2 Delivery O2 Flow Rate FiO2 12/17/16 09:40 108 110/56 12/17/16 07:59 98.3 18 99 12/13/16 23:23 Nasal Cannula 2.0 Intake and Output 12/16/16 12/16/16 12/17/16 15:00 23:00 07:00 Intake Total 400 ml 480 ml 400 ml Output Total 3900 ml Balance -3500 ml 480 ml 400 ml Exam Constitutional: alert, oriented Neck: other (anterior nech dressing noted- DDI) Respiratory: clear to auscultation, normal air movement Cardiovascular: nl pulses, other (Sinus Tach 113), regular rate and rhythm Gastrointestinal: non-tender, soft Musculoskeletal: nl extremities to inspection Extremities: normal pulses 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: nl mental status, nl speech Skin: other Results Result Diagram: 12/17/16 0737 12/17/16 0737 Results 24 hrs Laboratory Tests Test 12/17/16 07:37 White Blood Count 4.3 L Red Blood Count 2.86 L Hemoglobin 9.0 L Hematocrit 28.4 L Mean Corpuscular Volume 99.3 Mean Corpuscular Hemoglobin 31.5 Mean Corpuscular Hemoglobin Concent 31.7 L Red Cell Distribution Width 16.5 H Platelet Count 148 Mean Platelet Volume 10.8 H Neutrophils % 54.1 Lymphocytes % 26.5 Monocytes % 11.2 H Eosinophils % 7.0 Basophils % 0.7 Nucleated Red Blood Cells % 0.0 Neutrophils # (Manual) 2 Lymphocytes # 1.1 Monocytes # 0.5 Eosinophils # 0.3 Basophils # 0.0 Nucleated Red Blood Cells # 0.0 Sodium Level 136 Potassium Level 5.0 Chloride Level 91 L Carbon Dioxide Level 29 Anion Gap 21 #H Blood Urea Nitrogen 66 #H Creatinine 5.37 H Glucose Level 65 L Calcium Level 9.7 Medications Medications Current Medications Acetaminophen (Tylenol Tab) 650 mg Q4H PRN PO PAIN AND OR ELEVATED TEMP; Start 12/02/16 at 23:00 Hydralazine HCl (Apresoline) 25 mg Q6H PRN PO SBP >170; Start 12/02/16 at 23:00 Diphenhydramine HCl (Benadryl) 25 mg Q6H PRN IV Itching Last administered on 05:11; Admin Dose 25 MG; Start 12/02/16 at 23:00 Ondansetron HCl (Zofran Inj) 4 mg Q6H PRN IV NAUSEA AND/OR VOMITING Last administered on 12/11/16 15:25; Admin Dose 4 MG; Start 12/03/16 at 19:30 Pantoprazole (Protonix Tab) 40 mg DAILY@06 PO Last administered on 12/17/16 05 :11; Admin Dose 40 MG; Start 12/04/16 at 14:00 Ibuprofen (Motrin) 600 mg Q8 PO Last administered on 12/17/16 05:11; Admin Dose 600 MG; Start 12/05/16 at 22:00 Gabapentin (Neurontin) 100 mg TID PO Last administered on 12/17/16 08:56; Admin Dose 100 MG; Start 12/06/16 at 21:00 Lubiprostone (Amitiza) 24 mcg BID PO Last administered on 12/17/16 08:57; Admin Dose 24 MCG; Start 12/07/16 at 16:30 Metoclopramide HCl (Reglan) 5 mg Q8 IV Last administered on 12/17/16 05:11; Admin Dose 5 MG; Start 12/10/16 at 14:00 Oxycodone/ Acetaminophen (Percocet (5/ 325)) 1 tab Q6H PRN PO PAIN LEVEL 6-10 Last administered on 12/16/16 13:41; Admin Dose 1 TAB; Start 12/11/16 at 15:00 Mineral Oil (Mineral Oil) 30 ml TID PO Last administered on 12/17/16 08:56; Admin Dose 30 ML; Start 12/15/16 at 15:00 Mineral Oil (Fleet Mineral Oil Enema) 133 ml BID [place] Last administered on 08:56; Admin Dose 133 ML; Start 12/15/16 at 21:00 EDILMA CASIANO Dec 17, 2016 09:50
[2016-12-17] MEDS: OXYCODONE/ACETAMINOPHEN (5/325) TAB PO PRN (10:23)
--- NOTE | 2016-12-17 13:14 | CONS ---
Date/Time of Note Date/Time of Note DATE: 12/17/16 TIME: 13:12 Assessment/Plan Assessment/Plan Chief Complaint/Hosp Course 1. Increased BNP, assess congestive heart failure with secondary renal failure.- no sig sob at this time. NL EF by echo 2. Hypotension, borderline. 3. Goiter multinodular. 4. End-stage renal disease on hemodialysis. 5. Hyperkalemia resolved. 6. Abdominal pain. 7. Hyperthyroid 8. Tachycardia-S Tach 9.Hyperparathyroid s/p partial thyroidectomy Recc: -Tele -Ongoing eval of mutinodular goiter -HD for volume removal -Follow marginal BP closely -low dose BB burt improve HR/for patient comfort Problems: Consultation Date/Type/Reason Admit Date/Time Dec 02, 2016 at 17:19 Initial Consult Date 12/03/2016 Type of Consultation: cardiology Reason for Consultation tachycardia Referring Provider: LUANNE WALTER MD Exam/Review of Systems Vital Signs Vitals Vital Signs Date Time Temp Pulse Resp B/P Pulse Ox O2 Delivery O2 Flow Rate FiO2 12/17/16 12:37 123 12/17/16 11:35 98.0 18 111/59 99 12/13/16 23:23 Nasal Cannula 2.0 Intake and Output 12/16/16 12/16/16 12/17/16 15:00 23:00 07:00 Intake Total 400 ml 480 ml 400 ml Output Total 3900 ml Balance -3500 ml 480 ml 400 ml Exam Review of Systems: CONSTITUTIONAL: No fevers, chills. PULMONARY: No sob CARDIOVASCULAR: No chest pain/palpitations GASTROINTESTINAL: abd pain GENITOURINARY: No hematuria/dysuria. MUSCULOSKELETAL: No myagias/arthalgias. PSYCHIATRIC: The patient denies depression. NEUROLOGIC: No weakness Constitutional: alert Psych: no complaints Head: normocephalic ENMT: mucosa pink and moist Neck: jvd (8 cm water), supple Respiratory: clear to auscultation Cardiovascular: other (tachycardia, regular rhythm) Gastrointestinal: other (mild TTP), soft Musculoskeletal: muscle tone (normal) Extremities: edema (none) 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: other (No focal deficits) Results Result Diagram: 12/17/16 0737 12/17/16 0737 Results 24 hrs Laboratory Tests Test 12/17/16 07:37 White Blood Count 4.3 L Red Blood Count 2.86 L Hemoglobin 9.0 L Hematocrit 28.4 L Mean Corpuscular Volume 99.3 Mean Corpuscular Hemoglobin 31.5 Mean Corpuscular Hemoglobin Concent 31.7 L Red Cell Distribution Width 16.5 H Platelet Count 148 Mean Platelet Volume 10.8 H Neutrophils % 54.1 Lymphocytes % 26.5 Monocytes % 11.2 H Eosinophils % 7.0 Basophils % 0.7 Nucleated Red Blood Cells % 0.0 Neutrophils # (Manual) 2 Lymphocytes # 1.1 Monocytes # 0.5 Eosinophils # 0.3 Basophils # 0.0 Nucleated Red Blood Cells # 0.0 Sodium Level 136 Potassium Level 5.0 Chloride Level 91 L Carbon Dioxide Level 29 Anion Gap 21 #H Blood Urea Nitrogen 66 #H Creatinine 5.37 H Glucose Level 65 L Calcium Level 9.7 Medications Medications Current Medications Acetaminophen (Tylenol Tab) 650 mg Q4H PRN PO PAIN AND OR ELEVATED TEMP; Start 12/02/16 at 23:00 Hydralazine HCl (Apresoline) 25 mg Q6H PRN PO SBP >170; Start 12/02/16 at 23:00 Diphenhydramine HCl (Benadryl) 25 mg Q6H PRN IV Itching Last administered on 11:26; Admin Dose 25 MG; Start 12/02/16 at 23:00 Ondansetron HCl (Zofran Inj) 4 mg Q6H PRN IV NAUSEA AND/OR VOMITING Last administered on 12/11/16 15:25; Admin Dose 4 MG; Start 12/03/16 at 19:30 Pantoprazole (Protonix Tab) 40 mg DAILY@06 PO Last administered on 12/17/16 05 :11; Admin Dose 40 MG; Start 12/04/16 at 14:00 Ibuprofen (Motrin) 600 mg Q8 PO Last administered on 12/17/16 05:11; Admin Dose 600 MG; Start 12/05/16 at 22:00 Gabapentin (Neurontin) 100 mg TID PO Last administered on 12/17/16 12:24; Admin Dose 100 MG; Start 12/06/16 at 21:00 Lubiprostone (Amitiza) 24 mcg BID PO Last administered on 12/17/16 08:57; Admin Dose 24 MCG; Start 12/07/16 at 16:30 Metoclopramide HCl (Reglan) 5 mg Q8 IV Last administered on 12/17/16 05:11; Admin Dose 5 MG; Start 12/10/16 at 14:00 Oxycodone/ Acetaminophen (Percocet (5/ 325)) 1 tab Q6H PRN PO PAIN LEVEL 6-10 Last administered on 12/17/16 10:23; Admin Dose 1 TAB; Start 12/11/16 at 15:00 Mineral Oil (Mineral Oil) 30 ml TID PO Last administered on 12/17/16 12:24; Admin Dose 30 ML; Start 12/15/16 at 15:00 Mineral Oil (Fleet Mineral Oil Enema) 133 ml BID [place] Last administered on 08:56; Admin Dose 133 ML; Start 12/15/16 at 21:00 HENRIQUE GARCIA Dec 17, 2016 13:14
[2016-12-17] MEDS ORDERED: morphine 10 MG INJ IM PRN (16:30)
[2016-12-17] MEDS: LACTULOSE 30ML CUP PO SCH ×2 (17:03→20:47)
[2016-12-17] MEDS ORDERED: MAGNESIUM CITRATE 300 ML BTL PO ONE (18:00)
[2016-12-17] MEDS: METOPROLOL 25 MG TAB PO SCH (20:48)
--- NOTE | 2016-12-17 22:16 | PN ---
Date/Time of Note Date/Time of Note DATE: 12/17/16 TIME: 22:08 Assessment/Plan VTE Prophylaxis VTE Prophylaxis Intervention: contraindicated VTE Contraindication Reason: patient non compliant VTE Confirmed-Overlap Tx Rcvd Reason for no Overlap Therapy: Contraindicated Lines/Catheters IV Catheter Type (from Nrs): Saline Lock Urinary Cath still in place: No Assessment/Plan Chief Complaint/Hosp Course Pt is anxiously aawaiting further studies Problems: Assessment/Plan SC remains normal, HD in Am Cont'd Hospitalization Reason: DC Plans per PMD Exam/Review of Systems Vital Signs Vitals Vital Signs Date Time Temp Pulse Resp B/P Pulse Ox O2 Delivery O2 Flow Rate FiO2 12/17/16 20:44 111 12/17/16 19:50 97.7 18 107/57 98 12/13/16 23:23 Nasal Cannula 2.0 Intake and Output 12/16/16 12/16/16 12/17/16 15:00 23:00 07:00 Intake Total 400 ml 480 ml 400 ml Output Total 3900 ml Balance -3500 ml 480 ml 400 ml Exam Constitutional: alert, oriented, well developed Psych: nl mood/affect, no complaints Head: atraumatic, normocephalic Eyes: EOMI, PERRL, nl conjunctiva, nl lids, nl sclera ENMT: nl external ears & nose, nl lips & teeth, nl nasal mucosa & septum Neck: non-tender, other (sx wound healed), supple Respiratory: clear to auscultation, normal air movement Cardiovascular: nl pulses, regular rate and rhythm Gastrointestinal: nl liver, spleen, non-tender, soft Genitourinary - Female: other Musculoskeletal: nl extremities to inspection, nl gait and stance, other Extremities: normal pulses, other (lt arm avf ) 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: BRAKES INSPECTOR II-XII intact, nl mental status, nl speech, nl strength Skin: nl turgor, No rash or lesions Lymph: nl lymph nodes Results , Hct stable at 28%SK still high Result Diagram: 12/17/1637 12/17/16 0737 Results 24 hrs Laboratory Tests Test 12/17/16 07:37 White Blood Count 4.3 L Red Blood Count 2.86 L Hemoglobin 9.0 L Hematocrit 28.4 L Mean Corpuscular Volume 99.3 Mean Corpuscular Hemoglobin 31.5 Mean Corpuscular Hemoglobin Concent 31.7 L Red Cell Distribution Width 16.5 H Platelet Count 148 Mean Platelet Volume 10.8 H Neutrophils % 54.1 Lymphocytes % 26.5 Monocytes % 11.2 H Eosinophils % 7.0 Basophils % 0.7 Nucleated Red Blood Cells % 0.0 Neutrophils # (Manual) 2 Lymphocytes # 1.1 Monocytes # 0.5 Eosinophils # 0.3 Basophils # 0.0 Nucleated Red Blood Cells # 0.0 Sodium Level 136 Potassium Level 5.0 Chloride Level 91 L Carbon Dioxide Level 29 Anion Gap 21 #H Blood Urea Nitrogen 66 #H Creatinine 5.37 H Glucose Level 65 L Calcium Level 9.7 Hepatitis B Surface Antigen NEGATIVE Hepatitis C Antibody NEGATIVE Medications Medications Current Medications Acetaminophen (Tylenol Tab) 650 mg Q4H PRN PO PAIN AND OR ELEVATED TEMP; Start 12/02/16 at 23:00 Hydralazine HCl (Apresoline) 25 mg Q6H PRN PO SBP >170; Start 12/02/16 at 23:00 Diphenhydramine HCl (Benadryl) 25 mg Q6H PRN IV Itching Last administered on 17:21; Admin Dose 25 MG; Start 12/02/16 at 23:00 Ondansetron HCl (Zofran Inj) 4 mg Q6H PRN IV NAUSEA AND/OR VOMITING Last administered on 12/11/16 15:25; Admin Dose 4 MG; Start 12/03/16 at 19:30 Pantoprazole (Protonix Tab) 40 mg DAILY@06 PO Last administered on 12/17/16 05 :11; Admin Dose 40 MG; Start 12/04/16 at 14:00 Ibuprofen (Motrin) 600 mg Q8 PO Last administered on 12/17/16 21:13; Admin Dose 600 MG; Start 12/05/16 at 22:00 Gabapentin (Neurontin) 100 mg TID PO Last administered on 12/17/16 20:47; Admin Dose 100 MG; Start 12/06/16 at 21:00 Lubiprostone (Amitiza) 24 mcg BID PO Last administered on 12/17/16 20:47; Admin Dose 24 MCG; Start 12/07/16 at 16:30 Metoclopramide HCl (Reglan) 5 mg Q8 IV Last administered on 12/17/16 21:13; Admin Dose 5 MG; Start 12/10/16 at 14:00 Oxycodone/ Acetaminophen (Percocet (5/ 325)) 1 tab Q6H PRN PO PAIN LEVEL 6-10 Last administered on 12/17/16 10:23; Admin Dose 1 TAB; Start 12/11/16 at 15:00 Mineral Oil (Mineral Oil) 30 ml TID PO Last administered on 12/17/16 20:47; Admin Dose 30 ML; Start 12/15/16 at 15:00 Mineral Oil (Fleet Mineral Oil Enema) 133 ml BID [place] Last administered on 18:44; Admin Dose 133 ML; Start 12/15/16 at 21:00 Metoprolol Tartrate (Lopressor) 25 mg BID PO Last administered on 12/17/16 20: 48; Admin Dose 25 MG; Start 12/17/16 at 21:00 Lactulose (Enulose) 20 gm Q4 PO Last administered on 12/17/16 20:47; Admin Dose 20 GM; Start 12/17/16 at 17:00 Morphine Sulfate (morphine) 1 mg Q4H PRN IV PAIN Last administered on 21:01; Admin Dose 1 MG; Start 12/17/16 at 16:52 CAMERON ISIDRO MD Dec 17, 2016 22:15
[2016-12-18] VITALS (16 sets, daily range): BP systolic 94–120; BP diastolic 49–79; PULSE 100–121; RESP 18–20
[2016-12-18] MEDS: LACTULOSE 30ML CUP PO SCH ×3 (01:00→09:00)
[2016-12-18] MEDS: PANTOPRAZOLE (EC) 40 MG TAB PO SCH (05:41)
[2016-12-18] MEDS: IBUPROFEN 600 MG TAB PO SCH ×2 (05:41→13:46)
[2016-12-18] MEDS: METOCLOPRAMIDE 10 MG INJ IV SCH ×3 (05:42→21:29)
[2016-12-18] MEDS: DIPHENHYDRAMINE 50 MG INJ IV PRN ×4 (05:42→23:30)
[2016-12-18 07:41] LABS: BASOPHILS % 0.3 % (0.0-2.0); EOSINOPHILS # 0.4 10^3/ul (0.0-0.5); EOSINOPHILS % 6.1 % (0.0-7.0); HEMOGLOBIN 8.4 g/dl (12.0-16.0); LYMPHOCYTES # 1.4 10^3/ul (0.8-2.9); LYMPHOCYTES % 23.4 % (15.0-51.0); MEAN CORPUSCULAR HEMOGLOBIN 30.8 pg (29.0-33.0); MEAN CORPUSCULAR HGB CONC 31.1 g/dl (32.0-37.0); MEAN CORPUSCULAR VOLUME 98.9 fl (82.0-101.0); MEAN PLATELET VOLUME 11.1 fl (7.4-10.4); MONOCYTE # 0.6 10^3/ul (0.3-0.9); MONOCYTES % 10.9 % (0.0-11.0); NEUTROPHILS % 58.6 % (39.0-77.0); NUCLEATED RED BLOOD CELLS% 0.3 /100WBC (0.0-0.0); PLATELET COUNT 154 10^3/UL (140-415); RED BLOOD COUNT 2.73 10^6/ul (4.20-5.40); RED CELL DISTRIBUTION WIDTH 16.4 % (11.5-14.5); WHITE BLOOD COUNT 5.8 10^3/ul (4.8-10.8)
[2016-12-18 08:17] LABS: CALCIUM 9.8 mg/dl (8.4-10.2); CREATININE 7.22 mg/dl (0.44-1.00)
[2016-12-18 08:26] LABS: POTASSIUM 5.6 mmol/L (3.5-5.1)
[2016-12-18] MEDS: MINERAL OIL 133 ML ENEMA PR SCH ×2 (09:00→21:29)
[2016-12-18] MEDS: METOPROLOL 25 MG TAB PO SCH (09:00)
[2016-12-18] MEDS: SEVELAMER 800 MG TAB PO SCH ×3 (09:14→17:30)
[2016-12-18] MEDS: morphine 2 MG INJ IV PRN (09:14)
[2016-12-18] MEDS: LUBIPROSTONE 24 MCG CAP PO SCH ×2 (09:15→21:28)
[2016-12-18] MEDS: GABAPENTIN 100 MG CAP PO SCH ×3 (09:15→21:28)
[2016-12-18] MEDS: MINERAL OIL 30ML CUP PO SCH ×3 (09:20→21:28)
--- NOTE | 2016-12-18 10:46 | CONS ---
Date/Time of Note Date/Time of Note DATE: 12/18/16 TIME: 10:44 Assessment/Plan Assessment/Plan Chief Complaint/Hosp Course 31 year old female with history of ESRD,admitted for abdominal pain,dysphagia. no nausea,vomiting or gi bleeding.No chest pain or SOB. Problems: Additional Assessment/Plan Additional Assessment/Plan 1. dysphagia,mostly secondary to multinodular goiter, resolved after the surgery 2. Hypotension, borderline. 3. Goiter multinodular. 4. End-stage renal disease on hemodialysis. 5. Hyperkalemia resolved. 7. increased alkaline phosphate secondary to hyperparathyroidism 8. Gastroparesis 9. Severe constipation,better 10. Status post thyroid gland biopsy 11. Induration in the cubital fossa 12. Status post surgery parathyroid glands were removed and partial thyroidectomy done 13. Abdominal pain also resolved Pl continue present care. CMP in a.m. Consultation Date/Type/Reason Admit Date/Time Dec 02, 2016 at 17:19 Initial Consult Date 12/04/16 Type of Consultation: cardiology Referring Provider: LUANNE WALTER MD 24 HR Interval Summary Free Text/Dictation Complaints of pain at the site of surgery Dysphagia better P.o. intake good Exam/Review of Systems Vital Signs Vitals Vital Signs Date Time Temp Pulse Resp B/P Pulse Ox O2 Delivery O2 Flow Rate FiO2 12/18/16 08:45 103 12/18/16 07:49 98.6 20 95/55 96 Intake and Output 12/17/16 12/17/16 12/18/16 15:00 23:00 07:00 Intake Total 100 ml 200 ml Balance 100 ml 200 ml Exam Constitutional: alert, oriented, well developed Psych: nl mood/affect, no complaints Head: atraumatic, normocephalic Eyes: EOMI, PERRL, nl conjunctiva, nl lids, nl sclera ENMT: nl external ears & nose, nl lips & teeth, nl nasal mucosa & septum Neck: non-tender, supple Respiratory: clear to auscultation, normal air movement Cardiovascular: nl pulses, regular rate and rhythm Gastrointestinal: nl liver, spleen, non-tender, soft Musculoskeletal: nl extremities to inspection, nl gait and stance Extremities: normal pulses 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: EMPLOYMENT EDUCATIONAL COORD II-XII intact, nl mental status, nl speech, nl strength Skin: nl turgor, No rash or lesions Lymph: nl lymph nodes Results Result Diagram: 8/25/17 0715 12/18/16 0715 Results 24 hrs Laboratory Tests Test 12/18/16 07:15 White Blood Count 5.8 # Red Blood Count 2.73 L Hemoglobin 8.4 L Hematocrit 27.0 L Mean Corpuscular Volume 98.9 Mean Corpuscular Hemoglobin 30.8 Mean Corpuscular Hemoglobin Concent 31.1 L Red Cell Distribution Width 16.4 H Platelet Count 154 Mean Platelet Volume 11.1 H Neutrophils % 58.6 Lymphocytes % 23.4 Monocytes % 10.9 Eosinophils % 6.1 Basophils % 0.3 Nucleated Red Blood Cells % 0.3 H Neutrophils # (Manual) 3.4 Lymphocytes # 1.4 Monocytes # 0.6 Eosinophils # 0.4 Basophils # 0.0 Nucleated Red Blood Cells # 0.0 Sodium Level 138 Potassium Level 5.6 H Chloride Level 89 L Carbon Dioxide Level 25 Anion Gap 30 #H Blood Urea Nitrogen 110 #H Creatinine 7.22 H Glucose Level 74 Calcium Level 9.8 Medications Medications Current Medications Acetaminophen (Tylenol Tab) 650 mg Q4H PRN PO PAIN AND OR ELEVATED TEMP; Start 12/02/16 at 23:00 Hydralazine HCl (Apresoline) 25 mg Q6H PRN PO SBP >170; Start 12/02/16 at 23:00 Ondansetron HCl (Zofran Inj) 4 mg Q6H PRN IV NAUSEA AND/OR VOMITING Last administered on 12/11/16 15:25; Admin Dose 4 MG; Start 12/03/16 at 19:30 Pantoprazole (Protonix Tab) 40 mg DAILY@06 PO Last administered on 12/18/16 05 :41; Admin Dose 40 MG; Start 12/04/16 at 14:00 Ibuprofen (Motrin) 600 mg Q8 PO Last administered on 12/18/16 05:41; Admin Dose 600 MG; Start 12/05/16 at 22:00 Gabapentin (Neurontin) 100 mg TID PO Last administered on 12/18/16 09:15; Admin Dose 100 MG; Start 12/06/16 at 21:00 Lubiprostone (Amitiza) 24 mcg BID PO Last administered on 12/18/16 09:15; Admin Dose 24 MCG; Start 12/07/16 at 16:30 Metoclopramide HCl (Reglan) 5 mg Q8 IV Last administered on 12/18/16 05:42; Admin Dose 5 MG; Start 12/10/16 at 14:00 Oxycodone/ Acetaminophen (Percocet (5/ 325)) 1 tab Q6H PRN PO PAIN LEVEL 6-10 Last administered on 12/17/16 10:23; Admin Dose 1 TAB; Start 12/11/16 at 15:00 Mineral Oil (Mineral Oil) 30 ml TID PO Last administered on 12/18/16 09:20; Admin Dose 30 ML; Start 12/15/16 at 15:00 Mineral Oil (Fleet Mineral Oil Enema) 133 ml BID [place] Last administered on 18:44; Admin Dose 133 ML; Start 12/15/16 at 21:00 Metoprolol Tartrate (Lopressor) 25 mg BID PO Last administered on 12/17/16 20: 48; Admin Dose 25 MG; Start 12/17/16 at 21:00 Morphine Sulfate (morphine) 1 mg Q4H PRN IV PAIN Last administered on 09:14; Admin Dose 1 MG; Start 12/17/16 at 16:52 Diphenhydramine HCl (Benadryl) 25 mg Q6H PRN IV itching; Start 12/18/16 at 07: 00 FREDERIC GARCIA MD Dec 18, 2016 10:45
--- NOTE | 2016-12-18 12:44 | CONS ---
Date/Time of Note Date/Time of Note DATE: 12/18/16 TIME: 12:43 Assessment/Plan Assessment/Plan Chief Complaint/Hosp Course 1. Increased BNP, assess congestive heart failure with secondary renal failure.- no sig sob at this time. NL EF by echo 2. Hypotension, borderline. 3. Goiter multinodular. 4. End-stage renal disease on hemodialysis. 5. Hyperkalemia resolved. 6. Abdominal pain. 7. Hyperthyroid 8. Tachycardia-S Tach 9.Hyperparathyroid s/p partial thyroidectomy Recc: -Tele -Ongoing eval of mutinodular goiter -HD for volume removal -Follow marginal BP closely -Continue low dose BB as tolerated to improve HR/for patient comfort Problems: Consultation Date/Type/Reason Admit Date/Time Dec 02, 2016 at 17:19 Initial Consult Date 12/03/2016 Type of Consultation: cardiology Reason for Consultation high BNP/Hotn Referring Provider: LUANNE WALTER MD Exam/Review of Systems Vital Signs Vitals Vital Signs Date Time Temp Pulse Resp B/P Pulse Ox O2 Delivery O2 Flow Rate FiO2 12/18/16 12:28 109 12/18/16 11:47 98.0 20 103/52 97 Intake and Output 12/17/16 12/17/16 12/18/16 15:00 23:00 07:00 Intake Total 100 ml 200 ml Balance 100 ml 200 ml Exam Review of Systems: CONSTITUTIONAL: No fevers, chills. PULMONARY: No sob CARDIOVASCULAR: No chest pain/palpitations GASTROINTESTINAL: mild abd pain GENITOURINARY: No hematuria/dysuria. MUSCULOSKELETAL: No myagias/arthalgias. PSYCHIATRIC: The patient denies depression. NEUROLOGIC: No weakness Constitutional: alert, oriented Psych: no complaints Head: normocephalic ENMT: mucosa pink and moist Neck: jvd (9 cm water), supple Respiratory: diminished breath sounds (at bases/B) Cardiovascular: regular rate and rhythm Gastrointestinal: non-tender, soft Musculoskeletal: muscle tone (normal) Extremities: edema (none) 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: other (No focal deficits) Results Result Diagram: 12/18/16 0715 12/18/16 0715 Results 24 hrs Laboratory Tests Test 12/18/16 07:15 White Blood Count 5.8 # Red Blood Count 2.73 L Hemoglobin 8.4 L Hematocrit 27.0 L Mean Corpuscular Volume 98.9 Mean Corpuscular Hemoglobin 30.8 Mean Corpuscular Hemoglobin Concent 31.1 L Red Cell Distribution Width 16.4 H Platelet Count 154 Mean Platelet Volume 11.1 H Neutrophils % 58.6 Lymphocytes % 23.4 Monocytes % 10.9 Eosinophils % 6.1 Basophils % 0.3 Nucleated Red Blood Cells % 0.3 H Neutrophils # (Manual) 3.4 Lymphocytes # 1.4 Monocytes # 0.6 Eosinophils # 0.4 Basophils # 0.0 Nucleated Red Blood Cells # 0.0 Sodium Level 138 Potassium Level 5.6 H Chloride Level 89 L Carbon Dioxide Level 25 Anion Gap 30 #H Blood Urea Nitrogen 110 #H Creatinine 7.22 H Glucose Level 74 Calcium Level 9.8 Medications Medications Current Medications Acetaminophen (Tylenol Tab) 650 mg Q4H PRN PO PAIN AND OR ELEVATED TEMP; Start 12/02/16 at 23:00 Hydralazine HCl (Apresoline) 25 mg Q6H PRN PO SBP >170; Start 12/02/16 at 23:00 Ondansetron HCl (Zofran Inj) 4 mg Q6H PRN IV NAUSEA AND/OR VOMITING Last administered on 12/11/16 15:25; Admin Dose 4 MG; Start 12/03/16 at 19:30 Pantoprazole (Protonix Tab) 40 mg DAILY@06 PO Last administered on 12/18/16 05 :41; Admin Dose 40 MG; Start 12/04/16 at 14:00 Ibuprofen (Motrin) 600 mg Q8 PO Last administered on 12/18/16 05:41; Admin Dose 600 MG; Start 12/05/16 at 22:00 Gabapentin (Neurontin) 100 mg TID PO Last administered on 12/18/16 09:15; Admin Dose 100 MG; Start 12/06/16 at 21:00 Lubiprostone (Amitiza) 24 mcg BID PO Last administered on 12/18/16 09:15; Admin Dose 24 MCG; Start 12/07/16 at 16:30 Metoclopramide HCl (Reglan) 5 mg Q8 IV Last administered on 12/18/16 05:42; Admin Dose 5 MG; Start 12/10/16 at 14:00 Oxycodone/ Acetaminophen (Percocet (5/ 325)) 1 tab Q6H PRN PO PAIN LEVEL 6-10 Last administered on 12/17/16 10:23; Admin Dose 1 TAB; Start 12/11/16 at 15:00 Mineral Oil (Mineral Oil) 30 ml TID PO Last administered on 12/18/16 09:20; Admin Dose 30 ML; Start 12/15/16 at 15:00 Mineral Oil (Fleet Mineral Oil Enema) 133 ml BID [place] Last administered on 18:44; Admin Dose 133 ML; Start 12/15/16 at 21:00 Metoprolol Tartrate (Lopressor) 25 mg BID PO Last administered on 12/17/16 20: 48; Admin Dose 25 MG; Start 12/17/16 at 21:00 Morphine Sulfate (morphine) 1 mg Q4H PRN IV PAIN Last administered on 09:14; Admin Dose 1 MG; Start 12/17/16 at 16:52 Diphenhydramine HCl (Benadryl) 25 mg Q6H PRN IV itching Last administered on 11:39; Admin Dose 25 MG; Start 12/18/16 at 07:00 HENRIQUE GARCIA Dec 18, 2016 12:44
--- NOTE | 2016-12-18 15:11 | PN ---
Date/Time of Note Date/Time of Note DATE: 12/18/16 TIME: 15:01 Assessment/Plan VTE Prophylaxis VTE Prophylaxis Intervention: ambulation Lines/Catheters IV C[facility] Type [facility]from [facility] Urinary Cath still in place: No Assessment/Plan Assessment/Plan 31-year-old female with end-stage renal disease dependent on hemodialysis 3 times a week. Was admitted because of neck pain swelling and dysphagia and abdominal pain. Investigation revealed presence of some mass and nodules in the neck mainly on the left side of the thyroid. Parathyroid hormone intact was over 2000. Patient also had gastroparesis and severe constipation. Following neck exploration and removal of a large mass about 4 cm x 3 cm which happened to be adenoma of the parathyroid gradually patient's symptoms resolved. Last calcium today is 9.8. Following administration of mineral oil p.o. and an enemas and lactulose and magnesium citrate eventually patient had several large bowel movement and examination of the abdomen reveals that her abdomen is quite soft. I will repeat KUB today to make sure that the oldest stool is been evacuated from the colon. Patient was advised to make sure when she goes home to get constipated and more than use a lot of vegetables and salad. Also advised that the patient get Colace 200 mg per day p.o. Subjective 24 Hr Interval Summary Free Text/Dictation No specific new complaint. Dysphagia is resolved. No more neck pain and pressure in the neck. Since yesterday has had 5 large bowel movements. This is due to effect of multiple types of laxitives including mineral oil, magnesium citrate, and lactulose. No abdominal pain. Exam/Review of Systems Vital Signs Vitals Vital Signs Date Time Temp Pulse Resp B/P Pulse Ox O2 Delivery O2 Flow Rate FiO2 12/18/16 12:28 109 12/18/16 11:47 98.0 20 103/52 97 Intake and Output 12/17/16 12/17/16 12/18/16 15:00 23:00 07:00 Intake Total 100 ml 200 ml Balance 100 ml 200 ml Exam Alert awake oriented 3. In no acute distress. Neck swelling has decreased much. Heart regular. Lungs clear. Abdomen is not distended. It is quite soft. No tenderness Results Result Diagram: 12/18/16 0715 12/18/16 0715 Results 24 hrs Laboratory Tests Test 12/18/16 07:15 White Blood Count 5.8 # Red Blood Count 2.73 L Hemoglobin 8.4 L Hematocrit 27.0 L Mean Corpuscular Volume 98.9 Mean Corpuscular Hemoglobin 30.8 Mean Corpuscular Hemoglobin Concent 31.1 L Red Cell Distribution Width 16.4 H Platelet Count 154 Mean Platelet Volume 11.1 H Neutrophils % 58.6 Lymphocytes % 23.4 Monocytes % 10.9 Eosinophils % 6.1 Basophils % 0.3 Nucleated Red Blood Cells % 0.3 H Neutrophils # (Manual) 3.4 Lymphocytes # 1.4 Monocytes # 0.6 Eosinophils # 0.4 Basophils # 0.0 Nucleated Red Blood Cells # 0.0 Sodium Level 138 Potassium Level 5.6 H Chloride Level 89 L Carbon Dioxide Level 25 Anion Gap 30 #H Blood Urea Nitrogen 110 #H Creatinine 7.22 H Glucose Level 74 Calcium Level 9.8 Medications Medications Current Medications Acetaminophen (Tylenol Tab) 650 mg Q4H PRN PO PAIN AND OR ELEVATED TEMP; Start 12/02/16 at 23:00 Hydralazine HCl (Apresoline) 25 mg Q6H PRN PO SBP >170; Start 12/02/16 at 23:00 Ondansetron HCl (Zofran Inj) 4 mg Q6H PRN IV NAUSEA AND/OR VOMITING Last administered on 12/11/16 15:25; Admin Dose 4 MG; Start 12/03/16 at 19:30 Pantoprazole (Protonix Tab) 40 mg DAILY@06 PO Last administered on 12/18/16 05 :41; Admin Dose 40 MG; Start 12/04/16 at 14:00 Ibuprofen (Motrin) 600 mg Q8 PO Last administered on 12/18/16 13:46; Admin Dose 600 MG; Start 12/05/16 at 22:00 Gabapentin (Neurontin) 100 mg TID PO Last administered on 12/18/16 13:46; Admin Dose 100 MG; Start 12/06/16 at 21:00 Lubiprostone (Amitiza) 24 mcg BID PO Last administered on 12/18/16 09:15; Admin Dose 24 MCG; Start 12/07/16 at 16:30 Metoclopramide HCl (Reglan) 5 mg Q8 IV Last administered on 12/18/16 13:46; Admin Dose 5 MG; Start 12/10/16 at 14:00 Oxycodone/ Acetaminophen (Percocet (5/ 325)) 1 tab Q6H PRN PO PAIN LEVEL 6-10 Last administered on 12/17/16 10:23; Admin Dose 1 TAB; Start 12/11/16 at 15:00 Mineral Oil (Mineral Oil) 30 ml TID PO Last administered on 12/18/16 13:46; Admin Dose 30 ML; Start 12/15/16 at 15:00 Mineral Oil (Fleet Mineral Oil Enema) 133 ml BID [place] Last administered on 18:44; Admin Dose 133 ML; Start 12/15/16 at 21:00 Morphine Sulfate (morphine) 1 mg Q4H PRN IV PAIN Last administered on 09:14; Admin Dose 1 MG; Start 12/17/16 at 16:52 Diphenhydramine HCl (Benadryl) 25 mg Q6H PRN IV itching Last administered on 11:39; Admin Dose 25 MG; Start 12/18/16 at 07:00 Atenolol (Tenormin) 12.5 mg BID PO ; Start 12/18/16 at 21:00 TANISHA MALONEY MD Dec 18, 2016 15:11
--- NOTE | 2016-12-18 17:30 | PN ---
Date/Time of Note Date/Time of Note DATE: 12/18/16 TIME: 17:28 Assessment/Plan VTE Prophylaxis VTE Prophylaxis Intervention: SCD's Lines/Catheters IV [facility]from [facility] Urinary Cath still in place: No Assessment/Plan Chief Complaint/Hosp Course Patient with persistent hyperkalemia, continue telemetry monitoring, Assessment/Plan -Hyperkalemia, continue management per nephrology. -Constipation, continue patient on bowel regimen. -Large left compressive parathyroid adenoma. S/p partial left thyroid lobectomy , left upper and lower parathyroidectomy by Dr Morales. -Dysphagia and odynophagia secondary to #1, resolved. Dr. Smallwood is following in gastroenterology consultation. Patient status post recent EGD at [facility]. -Thyrotoxicosis with multinodular goiter, Dr. Damon is following in endocrinology consultation. Recommendation to recheck thyroid labs in 4-6 weeks. -Secondary hyperparathyroidism due to renal disease. -Hemodialysis dependent end-stage renal disease, Dr. Núñez is following in nephrology, continue hemodialysis per nephrology. -Central stenosis, Dr. Francisco is following in vascular surgery consultation. Status post left upper extremity fistulogram. -Anemia, status post blood transfusion, continue to monitor hemoglobin and hematocrit. Further recommendations based on clinical course. Plan of care discussed with Dr. Turner Problems: Exam/Review of Systems Vital Signs Vitals Vital Signs Date Time Temp Pulse Resp B/P Pulse Ox O2 Delivery O2 Flow Rate FiO2 12/18/16 16:12 101 12/18/16 11:47 98.0 20 103/52 97 Intake and Output 12/17/16 12/17/16 12/18/16 15:00 23:00 07:00 Intake Total 100 ml 200 ml Balance 100 ml 200 ml Exam Constitutional: alert, oriented Neck: Status post surgery Cardiovascular: nl pulses Gastrointestinal: non-tender, soft Extremities: normal pulses, other (Left upper extremity AV fistula) 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: nl mental status Results Result Diagram: 12/18/16 0715 12/18/16 0715 Results 24 hrs Laboratory Tests Test 12/18/16 07:15 White Blood Count 5.8 # Red Blood Count 2.73 L Hemoglobin 8.4 L Hematocrit 27.0 L Mean Corpuscular Volume 98.9 Mean Corpuscular Hemoglobin 30.8 Mean Corpuscular Hemoglobin Concent 31.1 L Red Cell Distribution Width 16.4 H Platelet Count 154 Mean Platelet Volume 11.1 H Neutrophils % 58.6 Lymphocytes % 23.4 Monocytes % 10.9 Eosinophils % 6.1 Basophils % 0.3 Nucleated Red Blood Cells % 0.3 H Neutrophils # (Manual) 3.4 Lymphocytes # 1.4 Monocytes # 0.6 Eosinophils # 0.4 Basophils # 0.0 Nucleated Red Blood Cells # 0.0 Sodium Level 138 Potassium Level 5.6 H Chloride Level 89 L Carbon Dioxide Level 25 Anion Gap 30 #H Blood Urea Nitrogen 110 #H Creatinine 7.22 H Glucose Level 74 Calcium Level 9.8 Medications Medications Current Medications Acetaminophen (Tylenol Tab) 650 mg Q4H PRN PO PAIN AND OR ELEVATED TEMP; Start 12/02/16 at 23:00 Hydralazine HCl (Apresoline) 25 mg Q6H PRN PO SBP >170; Start 12/02/16 at 23:00 Ondansetron HCl (Zofran Inj) 4 mg Q6H PRN IV NAUSEA AND/OR VOMITING Last administered on 12/11/16 15:25; Admin Dose 4 MG; Start 12/03/16 at 19:30 Pantoprazole (Protonix Tab) 40 mg DAILY@06 PO Last administered on 12/18/16 05 :41; Admin Dose 40 MG; Start 12/04/16 at 14:00 Ibuprofen (Motrin) 600 mg Q8 PO Last administered on 12/18/16 13:46; Admin Dose 600 MG; Start 12/05/16 at 22:00 Gabapentin (Neurontin) 100 mg TID PO Last administered on 12/18/16 13:46; Admin Dose 100 MG; Start 12/06/16 at 21:00 Lubiprostone (Amitiza) 24 mcg BID PO Last administered on 12/18/16 09:15; Admin Dose 24 MCG; Start 12/07/16 at 16:30 Metoclopramide HCl (Reglan) 5 mg Q8 IV Last administered on 12/18/16 13:46; Admin Dose 5 MG; Start 12/10/16 at 14:00 Oxycodone/ Acetaminophen (Percocet (5/ 325)) 1 tab Q6H PRN PO PAIN LEVEL 6-10 Last administered on 12/17/16 10:23; Admin Dose 1 TAB; Start 12/11/16 at 15:00 Mineral Oil (Mineral Oil) 30 ml TID PO Last administered on 12/18/16 13:46; Admin Dose 30 ML; Start 12/15/16 at 15:00 Mineral Oil (Fleet Mineral Oil Enema) 133 ml BID [place] Last administered on 18:44; Admin Dose 133 ML; Start 12/15/16 at 21:00 Morphine Sulfate (morphine) 1 mg Q4H PRN IV PAIN Last administered on 09:14; Admin Dose 1 MG; Start 12/17/16 at 16:52 Diphenhydramine HCl (Benadryl) 25 mg Q6H PRN IV itching Last administered on 11:39; Admin Dose 25 MG; Start 12/18/16 at 07:00 Atenolol (Tenormin) 12.5 mg BID PO ; Start 12/18/16 at 21:00 ERICK ROBERTSON Dec 18, 2016 17:29
--- NOTE | 2016-12-18 17:48 | RADRPT ---
PROCEDURE: XR Abdomen. CLINICAL INDICATION: Abdominal pain. Fecal impaction. TECHNIQUE: AP supine abdomen x-ray. COMPARISON: 12/14/2016. FINDINGS: The bowel gas pattern is normal with no evidence of obstruction. There is much less stool within the colon compared with the prior study. There are no abnormal calcifications overlying the urinary tracts. The osseus structures are unremarkable. IMPRESSION: 1. Unremarkable abdomen radiograph. RPTAT: QQ .Omid Mota MD, MD Date Time Electronically viewed and signed by .Omid Mota MD, on 12/18/2016 17:48 .R/
[2016-12-18] MEDS: ATENOLOL 25 MG TAB PO SCH (21:29)
--- NOTE | 2016-12-18 22:11 | CONS ---
Date/Time of Note Date/Time of Note DATE: 12/18/16 TIME: 22:02 Assessment/Plan Assessment/Plan Chief Complaint/Hosp Course Pt is not eating well Problems: Additional Assessment/Plan OK to dc from renal point of view. Must monitor SCa cloesly as outpt. Cont'd Hospitalization Reason: High BUN suggests pt relativly hypovlumic, will rpt chemistry in Am Consultation Date/Type/Reason Admit Date/Time Dec 02, 2016 at 17:19 Initial Consult Date 12/04/16 Type of Consultation: renal Referring Provider: LUANNE WALTER MD 24 HR Interval Summary Free Text/Dictation Pt says she's feeling better Exam/Review of Systems Vital Signs Vitals Vital Signs Date Time Temp Pulse Resp B/P Pulse Ox O2 Delivery O2 Flow Rate FiO2 12/18/16 20:45 107 12/18/16 19:56 98.9 18 94/49 98 Intake and Output 12/17/16 12/17/16 12/18/16 15:00 23:00 07:00 Intake Total 100 ml 200 ml Balance 100 ml 200 ml Exam Constitutional: alert, oriented, well developed Psych: nl mood/affect, no complaints Head: atraumatic, normocephalic Eyes: EOMI, PERRL, nl conjunctiva, nl lids, nl sclera ENMT: nl external ears & nose, nl lips & teeth, nl nasal mucosa & septum Neck: non-tender, other (neck scar is healthy), supple Respiratory: clear to auscultation, normal air movement Cardiovascular: nl pulses, regular rate and rhythm Gastrointestinal: nl liver, spleen, non-tender, soft Musculoskeletal: nl extremities to inspection, nl gait and stance Extremities: normal pulses, other (Lt arm avf bruit+) 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: HYDRAULIC RIVETER II-XII intact, nl mental status, nl speech, nl strength Skin: nl turgor, other (pale), No rash or lesions Lymph: nl lymph nodes Results Hct stable Result Diagram: 12/18/1671412/18/16714 Results 24 hrs Laboratory Tests Test 12/18/16 07:15 White Blood Count 5.8 # Red Blood Count 2.73 L Hemoglobin 8.4 L Hematocrit 27.0 L Mean Corpuscular Volume 98.9 Mean Corpuscular Hemoglobin 30.8 Mean Corpuscular Hemoglobin Concent 31.1 L Red Cell Distribution Width 16.4 H Platelet Count 154 Mean Platelet Volume 11.1 H Neutrophils % 58.6 Lymphocytes % 23.4 Monocytes % 10.9 Eosinophils % 6.1 Basophils % 0.3 Nucleated Red Blood Cells % 0.3 H Neutrophils # (Manual) 3.4 Lymphocytes # 1.4 Monocytes # 0.6 Eosinophils # 0.4 Basophils # 0.0 Nucleated Red Blood Cells # 0.0 Sodium Level 138 Potassium Level 5.6 H Chloride Level 89 L Carbon Dioxide Level 25 Anion Gap 30 #H Blood Urea Nitrogen 110 #H Creatinine 7.22 H Glucose Level 74 Calcium Level 9.8 Medications Medications Current Medications Acetaminophen (Tylenol Tab) 650 mg Q4H PRN PO PAIN AND OR ELEVATED TEMP; Start 12/02/16 at 23:00 Hydralazine HCl (Apresoline) 25 mg Q6H PRN PO SBP >170; Start 12/02/16 at 23:00 Ondansetron HCl (Zofran Inj) 4 mg Q6H PRN IV NAUSEA AND/OR VOMITING Last administered on 12/11/16 15:25; Admin Dose 4 MG; Start 12/03/16 at 19:30 Pantoprazole (Protonix Tab) 40 mg DAILY@06 PO Last administered on 12/18/16 05 :41; Admin Dose 40 MG; Start 12/04/16 at 14:00 Ibuprofen (Motrin) 600 mg Q8 PO Last administered on 12/18/16 13:46; Admin Dose 600 MG; Start 12/05/16 at 22:00 Gabapentin (Neurontin) 100 mg TID PO Last administered on 12/18/16 21:28; Admin Dose 100 MG; Start 12/06/16 at 21:00 Lubiprostone (Amitiza) 24 mcg BID PO Last administered on 12/18/16 21:28; Admin Dose 24 MCG; Start 12/07/16 at 16:30 Metoclopramide HCl (Reglan) 5 mg Q8 IV Last administered on 12/18/16 21:29; Admin Dose 5 MG; Start 12/10/16 at 14:00 Oxycodone/ Acetaminophen (Percocet (5/ 325)) 1 tab Q6H PRN PO PAIN LEVEL 6-10 Last administered on 12/17/16 10:23; Admin Dose 1 TAB; Start 12/11/16 at 15:00 Mineral Oil (Mineral Oil) 30 ml TID PO Last administered on 12/18/16 21:28; Admin Dose 30 ML; Start 12/15/16 at 15:00 Mineral Oil (Fleet Mineral Oil Enema) 133 ml BID [place] Last administered on 21:29; Admin Dose 133 ML; Start 12/15/16 at 21:00 Morphine Sulfate (morphine) 1 mg Q4H PRN IV PAIN Last administered on 09:14; Admin Dose 1 MG; Start 12/17/16 at 16:52 Diphenhydramine HCl (Benadryl) 25 mg Q6H PRN IV itching Last administered on 17:31; Admin Dose 25 MG; Start 12/18/16 at 07:00 Atenolol (Tenormin) 12.5 mg BID PO Last administered on 12/18/16 21:29; Admin Dose 12.5 MG; Start 12/18/16 at 21:00 CAMERON ISIDRO MD Dec 18, 2016 22:11
[2016-12-18] MEDS: SOD CHLORIDE 0.45% 1,000 ML IV SCH (22:30)
[2016-12-19] VITALS (9 sets, daily range): BP systolic 90–145; BP diastolic 49–73; PULSE 96–113; RESP 18–19
[2016-12-19] MEDS: DIPHENHYDRAMINE 50 MG INJ IV PRN ×3 (06:00→17:38)
[2016-12-19] MEDS: PANTOPRAZOLE (EC) 40 MG TAB PO SCH (06:00)
[2016-12-19] MEDS: METOCLOPRAMIDE 10 MG INJ IV SCH ×2 (06:00→13:42)
[2016-12-19 08:30] LABS: ALBUMIN 3.7 g/dl (3.3-4.9); ALBUMIN/GLOBULIN RATIO 1.27; CALCIUM 9.7 mg/dl (8.4-10.2); CREATININE 5.04 mg/dl (0.44-1.00); POTASSIUM 4.5 mmol/L (3.5-5.1); TOTAL PROTEIN 6.6 g/dl (6.1-8.1)
[2016-12-19] MEDS: LUBIPROSTONE 24 MCG CAP PO SCH (08:45)
[2016-12-19] MEDS: SEVELAMER 800 MG TAB PO SCH ×3 (08:46→17:39)
[2016-12-19] MEDS: GABAPENTIN 100 MG CAP PO SCH ×2 (08:47→13:42)
[2016-12-19] MEDS: MINERAL OIL 30ML CUP PO SCH ×2 (08:48→11:48)
[2016-12-19] MEDS: MINERAL OIL 133 ML ENEMA PR SCH (08:48)
[2016-12-19] MEDS: ATENOLOL 25 MG TAB PO SCH (08:53)
[2016-12-19] MEDS: SOD CHLORIDE 0.45% 1,000 ML IV SCH (08:55)
--- NOTE | 2016-12-19 10:58 | PN ---
Date/Time of Note Date/Time of Note DATE: 12/19/16 TIME: 10:52 Assessment/Plan VTE Prophylaxis VTE Prophylaxis Intervention: other Lines/Catheters IV Catheter Type (from [facility]): Saline Lock Urinary Cath still in place: No Assessment/Plan Assessment/Plan -Hyperkalemia,- RESOLVED - continue management per nephrology. -Constipation, continue patient on bowel regimen. -Large left compressive parathyroid adenoma. S/p partial left thyroid lobectomy , left upper and lower parathyroidectomy by Dr Morales. -Dysphagia and odynophagia secondary to #1, resolved. Dr. Smallwood is following in gastroenterology consultation. Patient status post recent EGD at [facility]. -Thyrotoxicosis with multinodular goiter, Dr. Damon is following in endocrinology consultation. Recommendation to recheck thyroid labs in 4-6 weeks. -Secondary hyperparathyroidism due to renal disease. -Hemodialysis dependent end-stage renal disease, Dr. Núñez is following in nephrology, continue hemodialysis per nephrology. -Central stenosis, Dr. Francisco is following in vascular surgery consultation. Status post left upper extremity fistulogram. -Anemia, status post blood transfusion, continue to monitor hemoglobin and hematocrit. Further recommendations based on clinical course. Plan of care discussed with Dr. Turner Subjective 24 Hr Interval Summary Free Text/Dictation Patient with persistent hyperkalemia- resolved. nephrology follows, continue telemetry monitoring, dw staf-. wants to go home. BP stable- refused BP meds, NS infusion. Dialysis on Wednesday, ambulating in the hallway. Constitutional: improved Respiratory: no complaints Cardiovascular: no complaints Gastrointestinal: no complaints Genitourinary: no complaints Musculoskeletal: no complaints Skin: no complaints Exam/Review of Systems Vital Signs Vitals Vital Signs Date Time Temp Pulse Resp B/P Pulse Ox O2 Delivery O2 Flow Rate FiO2 12/19/16 10:01 97.9 101 18 100/53 99 12/19/16 00:00 Room Air Intake and Output 12/18/16 12/18/16 12/19/16 15:00 23:00 07:00 Intake Total 600 ml 900 ml 600 ml Output Total 4200 ml Balance -3600 ml 900 ml 600 ml Exam Constitutional: alert, oriented, well developed Neck: other (Sp surgery, DDI) Respiratory: clear to auscultation, normal air movement Cardiovascular: nl pulses, regular rate and rhythm Musculoskeletal: nl extremities to inspection Extremities: normal pulses 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: nl mental status Lymph: other Results Result Diagram: 12/18/16 0715 12/19/16 0559 Results 24 hrs Laboratory Tests Test 12/19/16 05:59 Sodium Level 145 H Potassium Level 4.5 Chloride Level 98 Carbon Dioxide Level 26 Anion Gap 26 H Blood Urea Nitrogen 69 #H Creatinine 5.04 #H Glucose Level 70 Calcium Level 9.7 Total Bilirubin 0.0 L Direct Bilirubin 0.00 Indirect Bilirubin 0.0 Aspartate Amino Transf (AST/SGOT) 21 Alanine Aminotransferase (ALT/SGPT) 30 Alkaline Phosphatase 908 H Total Protein 6.6 Albumin 3.7 Globulin 2.90 Albumin/Globulin Ratio 1.27 Medications Medications Current Medications Acetaminophen (Tylenol Tab) 650 mg Q4H PRN PO PAIN AND OR ELEVATED TEMP; Start 12/02/16 at 23:00 Hydralazine HCl (Apresoline) 25 mg Q6H PRN PO SBP >170; Start 12/02/16 at 23:00 Ondansetron HCl (Zofran Inj) 4 mg Q6H PRN IV NAUSEA AND/OR VOMITING Last administered on 12/11/16 15:25; Admin Dose 4 MG; Start 12/03/16 at 19:30 Pantoprazole (Protonix Tab) 40 mg DAILY@06 PO Last administered on 12/19/16 06 :00; Admin Dose 40 MG; Start 12/04/16 at 14:00 Gabapentin (Neurontin) 100 mg TID PO Last administered on 12/19/16 08:47; Admin Dose 100 MG; Start 12/06/16 at 21:00 Lubiprostone (Amitiza) 24 mcg BID PO Last administered on 12/19/16 08:45; Admin Dose 24 MCG; Start 12/07/16 at 16:30 Metoclopramide HCl (Reglan) 5 mg Q8 IV Last administered on 12/19/16 06:00; Admin Dose 5 MG; Start 12/10/16 at 14:00 Oxycodone/ Acetaminophen (Percocet (5/ 325)) 1 tab Q6H PRN PO PAIN LEVEL 6-10 Last administered on 12/17/16 10:23; Admin Dose 1 TAB; Start 12/11/16 at 15:00 Mineral Oil (Mineral Oil) 30 ml TID PO Last administered on 12/18/16 21:28; Admin Dose 30 ML; Start 12/15/16 at 15:00 Mineral Oil (Fleet Mineral Oil Enema) 133 ml BID [place] Last administered on 21:29; Admin Dose 133 ML; Start 12/15/16 at 21:00 Morphine Sulfate (morphine) 1 mg Q4H PRN IV PAIN Last administered on 09:14; Admin Dose 1 MG; Start 12/17/16 at 16:52 Diphenhydramine HCl (Benadryl) 25 mg Q6H PRN IV itching Last administered on 23:30; Admin Dose 25 MG; Start 12/18/16 at 07:00 Atenolol 12.5 mg 12.5 mg BID PO Last administered on 12/18/16 21:29; Admin Dose 12.5 MG; Start 12/18/16 at 21:00 Sodium Chloride (1/2 NS) 1,000 ml @ 80 mls/hr [id number] IV Last administered on 12/18/16 22:30; Admin Dose 80 MLS/HR; Start 12/18/16 at 22:30; Stop 12/19/16 at 11:00 EDILMA CASIANO Dec 19, 2016 10:58
--- NOTE | 2016-12-19 13:10 | CONS ---
Date/Time of Note Date/Time of Note DATE: 12/19/16 TIME: 13:09 Assessment/Plan Assessment/Plan Additional Assessment/Plan 1. CHF - diast HF, acute on chronic - better fluid status now - HD as needed - improved fluid status. STABLE. 2. Hypotension, borderline- well Rx - no sx now - STABLe, no symptoms - stable. 3. Goiter multinodular- s/p BX, surgical team follows - post op - site healing well 4. End-stage renal disease on hemodialysis- Rx with renal team - HD as needed. 5. Hyperkalemia resolved- better - IMPROVED 6. Abdominal pain- better Consultation Date/Type/Reason Admit Date/Time Dec 02, 2016 at 17:19 Initial Consult Date 12/04/16 Type of Consultation: renal Referring Provider: LUANNE WALTER MD 24 HR Interval Summary Free Text/Dictation NO acute events - stable overall ROS: No fever, no chills, no nausea, no vomiting, no diarrhea/constipation No recent weight changes No chest pain, no PND, no orthopnea No dizziness, blurred vision No thirst, no heat or cold intolerance Exam/Review of Systems Vital Signs Vitals Vital Signs Date Time Temp Pulse Resp B/P Pulse Ox O2 Delivery O2 Flow Rate FiO2 12/19/16 12:12 98.0 119 18 145/58 98 12/19/16 00:00 Room Air Intake and Output 12/18/16 12/18/16 12/19/16 15:00 23:00 07:00 Intake Total 600 ml 900 ml 600 ml Output Total 4200 ml Balance -3600 ml 900 ml 600 ml Exam General: WN/WD/NAD, AOx 3 HEENT: Unicetric/atraumatic/EOMI (follow commands) NECK: JVD elevated, no thyromegaly, scar Lymph: no lymphadenopathy HEART: regular with no S3, II/ systolic murmur at apex LUNGS: Coarse sounds ABD: soft, NT, ND, +BS : Intact Neuro: non focal SKIN: chronic changes EXT: trace edema Results Result Diagram: 12/18/16 0715 12/19/16 0559 Results 24 hrs Laboratory Tests Test 12/19/16 05:59 Sodium Level 145 H Potassium Level 4.5 Chloride Level 98 Carbon Dioxide Level 26 Anion Gap 26 H Blood Urea Nitrogen 69 #H Creatinine 5.04 #H Glucose Level 70 Calcium Level 9.7 Total Bilirubin 0.0 L Direct Bilirubin 0.00 Indirect Bilirubin 0.0 Aspartate Amino Transf (AST/SGOT) 21 Alanine Aminotransferase (ALT/SGPT) 30 Alkaline Phosphatase 908 H Total Protein 6.6 Albumin 3.7 Globulin 2.90 Albumin/Globulin Ratio 1.27 Medications Medications Current Medications Acetaminophen (Tylenol Tab) 650 mg Q4H PRN PO PAIN AND OR ELEVATED TEMP; Start 12/02/16 at 23:00 Hydralazine HCl (Apresoline) 25 mg Q6H PRN PO SBP >170; Start 12/02/16 at 23:00 Ondansetron HCl (Zofran Inj) 4 mg Q6H PRN IV NAUSEA AND/OR VOMITING Last administered on 12/11/16 15:25; Admin Dose 4 MG; Start 12/03/16 at 19:30 Pantoprazole (Protonix Tab) 40 mg DAILY@06 PO Last administered on 12/19/16 06 :00; Admin Dose 40 MG; Start 12/04/16 at 14:00 Gabapentin (Neurontin) 100 mg TID PO Last administered on 12/19/16 08:47; Admin Dose 100 MG; Start 12/06/16 at 21:00 Lubiprostone (Amitiza) 24 mcg BID PO Last administered on 12/19/16 08:45; Admin Dose 24 MCG; Start 12/07/16 at 16:30 Metoclopramide HCl (Reglan) 5 mg Q8 IV Last administered on 12/19/16 06:00; Admin Dose 5 MG; Start 12/10/16 at 14:00 Oxycodone/ Acetaminophen (Percocet (5/ 325)) 1 tab Q6H PRN PO PAIN LEVEL 6-10 Last administered on 12/17/16 10:23; Admin Dose 1 TAB; Start 12/11/16 at 15:00 Mineral Oil (Mineral Oil) 30 ml TID PO Last administered on 12/18/16 21:28; Admin Dose 30 ML; Start 12/15/16 at 15:00 Mineral Oil (Fleet Mineral Oil Enema) 133 ml BID [place] Last administered on 21:29; Admin Dose 133 ML; Start 12/15/16 at 21:00 Morphine Sulfate (morphine) 1 mg Q4H PRN IV PAIN Last administered on 09:14; Admin Dose 1 MG; Start 12/17/16 at 16:52 Diphenhydramine HCl (Benadryl) 25 mg Q6H PRN IV itching Last administered on 11:47; Admin Dose 25 MG; Start 12/18/16 at 07:00 Atenolol (Tenormin) 12.5 mg BID PO Last administered on 12/18/16 21:29; Admin Dose 12.5 MG; Start 12/18/16 at 21:00 YUMIKO HO MD Dec 19, 2016 13:10
--- NOTE | 2016-12-19 14:49 | CONS ---
Date/Time of Note Date/Time of Note DATE: 12/19/16 TIME: 14:46 Assessment/Plan Assessment/Plan Chief Complaint/Hosp Course Pt is not eating well Problems: (1) Secondary hyperparathyroidism of renal origin Status: Chronic Comment: s/p parathyroidectomy, awaiting rpt pth level (2) End stage kidney disease Status: Chronic Comment: Pt gets HD MWF (3) Anemia Status: Chronic Comment: Pt on EPO, Hct stable Consultation Date/Type/Reason Admit Date/Time Dec 02, 2016 at 17:19 Initial Consult Date 12/04/16 Type of Consultation: renal Referring Provider: LUANNE WALTER MD 24 HR Interval Summary Free Text/Dictation Pt says she feels better, no new complaints Exam/Review of Systems Vital Signs Vitals Vital Signs Date Time Temp Pulse Resp B/P Pulse Ox O2 Delivery O2 Flow Rate FiO2 12/19/16 12:12 98.0 119 18 145/58 98 12/19/16 00:00 Room Air Intake and Output 12/18/16 12/18/16 12/19/16 15:00 23:00 07:00 Intake Total 600 ml 900 ml 600 ml Output Total 4200 ml Balance -3600 ml 900 ml 600 ml Exam Constitutional: alert, oriented, well developed Psych: nl mood/affect, no complaints Head: atraumatic, normocephalic Eyes: EOMI, PERRL, nl conjunctiva, nl lids, nl sclera ENMT: nl external ears & nose, nl lips & teeth, nl nasal mucosa & septum Neck: non-tender, supple Respiratory: clear to auscultation, normal air movement, other (wound healed) Cardiovascular: nl pulses, regular rate and rhythm Gastrointestinal: nl liver, spleen, non-tender, soft Musculoskeletal: nl extremities to inspection, nl gait and stance, other (lt arm avf bruit+) Extremities: normal pulses 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: MEDIA RELATIONS INTERN II-XII intact, nl mental status, nl speech, nl strength Skin: nl turgor, No rash or lesions Lymph: nl lymph nodes Results Result Diagram: 12/18/16 0715 12/19/16 0559 Results 24 hrs Laboratory Tests Test 12/19/16 05:59 Sodium Level 145 H Potassium Level 4.5 Chloride Level 98 Carbon Dioxide Level 26 Anion Gap 26 H Blood Urea Nitrogen 69 #H Creatinine 5.04 #H Glucose Level 70 Calcium Level 9.7 Total Bilirubin 0.0 L Direct Bilirubin 0.00 Indirect Bilirubin 0.0 Aspartate Amino Transf (AST/SGOT) 21 Alanine Aminotransferase (ALT/SGPT) 30 Alkaline Phosphatase 908 H Total Protein 6.6 Albumin 3.7 Globulin 2.90 Albumin/Globulin Ratio 1.27 Medications Medications Current Medications Acetaminophen (Tylenol Tab) 650 mg Q4H PRN PO PAIN AND OR ELEVATED TEMP Last administered on 12/19/16 13:41; Admin Dose 650 MG; Start 12/02/16 at 23:00 Hydralazine HCl (Apresoline) 25 mg Q6H PRN PO SBP >170; Start 12/02/16 at 23:00 Ondansetron HCl (Zofran Inj) 4 mg Q6H PRN IV NAUSEA AND/OR VOMITING Last administered on 12/11/16 15:25; Admin Dose 4 MG; Start 12/03/16 at 19:30 Pantoprazole (Protonix Tab) 40 mg DAILY@06 PO Last administered on 12/19/16 06 :00; Admin Dose 40 MG; Start 12/04/16 at 14:00 Gabapentin (Neurontin) 100 mg TID PO Last administered on 12/19/16 13:42; Admin Dose 100 MG; Start 12/06/16 at 21:00 Lubiprostone (Amitiza) 24 mcg BID PO Last administered on 12/19/16 08:45; Admin Dose 24 MCG; Start 12/07/16 at 16:30 Metoclopramide HCl (Reglan) 5 mg Q8 IV Last administered on 12/19/16 13:42; Admin Dose 5 MG; Start 12/10/16 at 14:00 Oxycodone/ Acetaminophen (Percocet (5/ 325)) 1 tab Q6H PRN PO PAIN LEVEL 6-10 Last administered on 12/17/16 10:23; Admin Dose 1 TAB; Start 12/11/16 at 15:00 Mineral Oil (Mineral Oil) 30 ml TID PO Last administered on 12/18/16 21:28; Admin Dose 30 ML; Start 12/15/16 at 15:00 Mineral Oil (Fleet Mineral Oil Enema) [address] Last administered on 21:29; Admin Dose 133 ML; Start 12/15/16 at 21:00 Morphine Sulfate (morphine) 1 mg Q4H PRN IV PAIN Last administered on 09:14; Admin Dose 1 MG; Start 12/17/16 at 16:52 Diphenhydramine HCl (Benadryl) 25 mg Q6H PRN IV itching Last administered on 11:47; Admin Dose 25 MG; Start 12/18/16 at 07:00 Atenolol (Tenormin) 12.5 mg BID PO Last administered on 12/18/16 21:29; Admin Dose 12.5 MG; Start 12/18/16 at 21:00 CAMERON ISIDRO MD Dec 19, 2016 14:49
--- NOTE | 2016-12-19 15:08 | CONS ---
Date/Time of Note Date/Time of Note DATE: 12/19/16 TIME: 15:08 Assessment/Plan Assessment/Plan Chief Complaint/Hosp Course 31 year old female with history of ESRD,admitted for abdominal pain,dysphagia. no nausea,vomiting or gi bleeding.No chest pain or SOB. Problems: Additional Assessment/Plan Additional Assessment/Plan Additional Assessment/Plan 1. dysphagia,mostly secondary to multinodular goiter, resolved after the surgery 2. Hypotension, borderline. 3. Goiter multinodular. 4. End-stage renal disease on hemodialysis. 5. Hyperkalemia resolved. 7. increased alkaline phosphate secondary to hyperparathyroidism 8. Gastroparesis 9. Severe constipation,better 10. Status post thyroid gland biopsy 11. Induration in the cubital fossa 12. Status post surgery parathyroid glands were removed and partial thyroidectomy done 13. Abdominal pain also resolved Pl continue present care. Consultation Date/Type/Reason Admit Date/Time Dec 02, 2016 at 17:19 Initial Consult Date 12/04/16 Type of Consultation: renal Referring Provider: LUANNE WALTER MD 24 HR Interval Summary Constitutional: improved, no complaints Exam/Review of Systems Vital Signs Vitals Vital Signs Date Time Temp Pulse Resp B/P Pulse Ox O2 Delivery O2 Flow Rate FiO2 12/19/16 12:12 98.0 119 18 145/58 98 12/19/16 00:00 Room Air Intake and Output 12/18/16 12/18/16 12/19/16 15:00 23:00 07:00 Intake Total 600 ml 900 ml 600 ml Output Total 4200 ml Balance -3600 ml 900 ml 600 ml Exam Constitutional: alert, oriented, well developed Psych: nl mood/affect, no complaints Head: atraumatic, normocephalic Eyes: EOMI, PERRL, nl conjunctiva, nl lids, nl sclera ENMT: nl external ears & nose, nl lips & teeth, nl nasal mucosa & septum Neck: non-tender, supple Respiratory: clear to auscultation, normal air movement Cardiovascular: nl pulses, regular rate and rhythm Gastrointestinal: nl liver, spleen, non-tender, soft Musculoskeletal: nl extremities to inspection, nl gait and stance Extremities: normal pulses 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: [employer] EXECUTIVE II-XII intact, nl mental status, nl speech, nl strength Skin: nl turgor, No rash or lesions Lymph: nl lymph nodes Results Result Diagram: 12/18/16 0715 12/19/16 0559 Results 24 hrs Laboratory Tests Test 12/19/16 05:59 Sodium Level 145 H Potassium Level 4.5 Chloride Level 98 Carbon Dioxide Level 26 Anion Gap 26 H Blood Urea Nitrogen 69 #H Creatinine 5.04 #H Glucose Level 70 Calcium Level 9.7 Total Bilirubin 0.0 L Direct Bilirubin 0.00 Indirect Bilirubin 0.0 Aspartate Amino Transf (AST/SGOT) 21 Alanine Aminotransferase (ALT/SGPT) 30 Alkaline Phosphatase 908 H Total Protein 6.6 Albumin 3.7 Globulin 2.90 Albumin/Globulin Ratio 1.27 Medications Medications Current Medications Acetaminophen (Tylenol Tab) 650 mg Q4H PRN PO PAIN AND OR ELEVATED TEMP Last administered on 12/19/16 13:41; Admin Dose 650 MG; Start 12/02/16 at 23:00 Hydralazine HCl (Apresoline) 25 mg Q6H PRN PO SBP >170; Start 12/02/16 at 23:00 Ondansetron HCl (Zofran Inj) 4 mg Q6H PRN IV NAUSEA AND/OR VOMITING Last administered on 12/11/16 15:25; Admin Dose 4 MG; Start 12/03/16 at 19:30 Pantoprazole (Protonix Tab) 40 mg DAILY@06 PO Last administered on 12/19/16 06 :00; Admin Dose 40 MG; Start 12/04/16 at 14:00 Gabapentin (Neurontin) 100 mg TID PO Last administered on 12/19/16 13:42; Admin Dose 100 MG; Start 12/06/16 at 21:00 Lubiprostone (Amitiza) 24 mcg BID PO Last administered on 12/19/16 08:45; Admin Dose 24 MCG; Start 12/07/16 at 16:30 Metoclopramide HCl (Reglan) 5 mg Q8 IV Last administered on 12/19/16 13:42; Admin Dose 5 MG; Start 12/10/16 at 14:00 Oxycodone/ Acetaminophen (Percocet (5/ 325)) 1 tab Q6H PRN PO PAIN LEVEL 6-10 Last administered on 12/17/16 10:23; Admin Dose 1 TAB; Start 12/11/16 at 15:00 Mineral Oil (Mineral Oil) 30 ml TID PO Last administered on 12/18/16 21:28; Admin Dose 30 ML; Start 12/15/16 at 15:00 Mineral Oil (Fleet Mineral Oil Enema) 133 ml BID [place] Last administered on 21:29; Admin Dose 133 ML; Start 12/15/16 at 21:00 Morphine Sulfate (morphine) 1 mg Q4H PRN IV PAIN Last administered on 09:14; Admin Dose 1 MG; Start 12/17/16 at 16:52 Diphenhydramine HCl (Benadryl) 25 mg Q6H PRN IV itching Last administered on 11:47; Admin Dose 25 MG; Start 12/18/16 at 07:00 Atenolol (Tenormin) 12.5 mg BID PO Last administered on 12/18/16 21:29; Admin Dose 12.5 MG; Start 12/18/16 at 21:00 FREDERIC GARCIA MD Dec 19, 2016 15:08
--- NOTE | 2016-12-19 15:36 | PN ---
Date/Time of Note Date/Time of Note DATE: 12/19/16 TIME: 15:30 Assessment/Plan VTE Prophylaxis VTE Prophylaxis Intervention: ambulation Lines/Catheters IV [facility] Saline Lock Urinary Cath still in place: No Assessment/Plan Assessment/Plan 31 years old female with end-stage renal disease on hemodialysis 3 times a week. Status post removal of the left side parathyroid adenoma. All the symptoms that brought patient to the emergency room has been resolved. Past surgical point of view regard to the abdominal constipation patient can be discharged. Patient is very anxious to be discharged today. I told Mr. Silver the RN to get a hold of primary care physician to see if they can discharge the patient today. Patient to be followed at least by Dr. Ozzie Reeder's office after discharge. Subjective 24 Hr Interval Summary Free Text/Dictation Feels good, no abdominal pain, says several bowel movements today, no neck pain , tolerating diet, no dysphagia Exam/Review of Systems Vital Signs Vitals Vital Signs Date Time Temp Pulse Resp B/P Pulse Ox O2 Delivery O2 Flow Rate FiO2 12/19/16 12:12 98.0 119 18 145/58 98 12/19/16 00:00 Room Air Intake and Output 12/18/16 12/18/16 12/19/16 15:00 23:00 07:00 Intake Total 600 ml 900 ml 600 ml Output Total 4200 ml Balance -3600 ml 900 ml 600 ml Exam Vital sign is stable. Has been out of bed walking around. Neck wound is clean. Abdomen is very soft no tenderness. No blood test done today. Results Result Diagram: 12/18/16 0715 12/19/16 0559 Results 24 hrs Laboratory Tests Test 12/19/16 05:59 Sodium Level 145 H Potassium Level 4.5 Chloride Level 98 Carbon Dioxide Level 26 Anion Gap 26 H Blood Urea Nitrogen 69 #H Creatinine 5.04 #H Glucose Level 70 Calcium Level 9.7 Total Bilirubin 0.0 L Direct Bilirubin 0.00 Indirect Bilirubin 0.0 Aspartate Amino Transf (AST/SGOT) 21 Alanine Aminotransferase (ALT/SGPT) 30 Alkaline Phosphatase 908 H Total Protein 6.6 Albumin 3.7 Globulin 2.90 Albumin/Globulin Ratio 1.27 Medications Medications Current Medications Acetaminophen (Tylenol Tab) 650 mg Q4H PRN PO PAIN AND OR ELEVATED TEMP Last administered on 12/19/16t 13:41; Admin Dose 650 MG; Start 12/02/16 at 23:00 Hydralazine HCl (Apresoline) 25 mg Q6H PRN PO SBP >170; Start 12/02/16 at 23:00 Ondansetron HCl (Zofran Inj) 4 mg Q6H PRN IV NAUSEA AND/OR VOMITING Last administered on 12/11/16 15:25; Admin Dose 4 MG; Start 12/03/16 at 19:30 Pantoprazole (Protonix Tab) 40 mg DAILY@06 PO Last administered on 12/19/16 06 :00; Admin Dose 40 MG; Start 12/04/16 at 14:00 Gabapentin (Neurontin) 100 mg TID PO Last administered on 12/19/16 13:42; Admin Dose 100 MG; Start 12/06/16 at 21:00 Lubiprostone (Amitiza) 24 mcg BID PO Last administered on 12/19/16 08:45; Admin Dose 24 MCG; Start 12/07/16 at 16:30 Metoclopramide HCl (Reglan) 5 mg Q8 IV Last administered on 12/19/16 13:42; Admin Dose 5 MG; Start 12/10/16 at 14:00 Oxycodone/ Acetaminophen (Percocet (5/ 325)) 1 tab Q6H PRN PO PAIN LEVEL 6-10 Last administered on 12/17/16 10:23; Admin Dose 1 TAB; Start 12/11/16 at 15:00 Mineral Oil (Mineral Oil) 30 ml TID PO Last administered on 12/18/16 21:28; Admin Dose 30 ML; Start 12/15/16 at 15:00 Mineral Oil (Fleet Mineral Oil Enema) 133 ml BID [place] Last administered on 21:29; Admin Dose 133 ML; Start 12/15/16 at 21:00 Morphine Sulfate (morphine) 1 mg Q4H PRN IV PAIN Last administered on 09:14; Admin Dose 1 MG; Start 12/17/16 at 16:52 Diphenhydramine HCl (Benadryl) 25 mg Q6H PRN IV itching Last administered on 11:47; Admin Dose 25 MG; Start 12/18/16 at 07:00 Atenolol (Tenormin) 12.5 mg BID PO Last administered on 12/18/16t 21:29; Admin Dose 12.5 MG; Start 12/18/16 at 21:00 TANISHA MALONEY MD Dec 19, 2016 15:36
--- NOTE | 2016-12-19 16:07 | PDOCDIS ---
Discharge Instructions CONDITION Patient Condition: Stable HOME CARE INSTRUCTIONS: Special Diet: renal ACTIVITY: Activity Restrictions: Slowly Increase Activity Rest between Activity Avoid heavy lifting Do not operate Machinery Do not operate Power Tool Avoid Heavy Housework Bathing Restrictions: Sponge Bath FOLLOW UP/APPOINTMENTS Follow-up Plan -FU with Primary MD x 1 week - Fu with surgery as recommended call 911 or got to nearest hospital if symptoms get worse. [facility] staff/patient/ EDILMA Batres Dec 19, 2016 16:07
[2016-12-19] MEDS ORDERED: ATEN-51 PO (16:09)
[2016-12-19] MEDS ORDERED: GABA100C14 PO (16:09)
[2016-12-19] MEDS ORDERED: HYDR-3671 PO (16:09)
[2016-12-19] MEDS ORDERED: PANT40TA4 PO (16:09)
[2016-12-19] MEDS ORDERED: LUBI24CA7 PO (16:09)
--- NOTE | 2016-12-19 16:21 | DS ---
Date/Time of Note Date/Time of Note DATE: 12/19/16 TIME: 16:21 Discharge Summary Admission/Discharge Info Admit Date/Time Dec 02, 2016 at 17:19 Discharge Date/Time Discharge Diagnosis -Hyperkalemia,- RESOLVED -Constipation -Large left compressive parathyroid adenoma. S/p partial left thyroid lobectomy , left upper and lower parathyroidectomy by Dr Morales. -Dysphagia and odynophagia secondary to #1, resolved. -Thyrotoxicosis with multinodular goiter. Recommendation to recheck thyroid labs in 4-6 weeks. -Secondary hyperparathyroidism due to renal disease. -Hemodialysis dependent end-stage renal disease -Central stenosis, Status post left upper extremity fistulogram. -Anemia, status post blood transfusion Plan of care discussed with Dr. Turner/ staff/patiet Patient Condition: Stable Procedures 12/14/2014- S/p partial left thyroid lobectomy, left upper and lower parathyroidectomy by Dr Morales. Hospital Course This is a 31-year-old female patient with past medical history of ESRD, on dialysis- Wednesday, Wednesday, Wednesday, thyroid mass, ovarian cyst, thyroid mass is admitted under Dr. Turner . Patient is admitted to the hospital with multiple complaints including missed dialysis today-patient's last dialysis was 2 days ago, epigastric abdominal pain, and fullness in her neck, discomfort with swallowing. she is seeing Dr. Crespo for possible surgical intervention .On 12/14/2916, Patient had partial left thyroid lobectomy, left upper and lower parathyroidectomy by Dr Morales. Constitutional: alert, oriented, well developed. vss Neck: other (Sp surgery, DDI) Respiratory: clear to auscultation, normal air movement Cardiovascular: nl pulses, regular rate and rhythm Musculoskeletal: nl extremities to inspection Extremities: normal pulses 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: nl mental status When stable, patient was cleared by surgery. vascular/ nephro/endo to discharge home.Plan of care wesley Turner/ staff/patient Home Meds Active Scripts Pantoprazole* (Pantoprazole*) 40 Mg Tablet.dr 40 MG PO DAILY@06 for 30 Days Prov:EDILMA CASIANO 12/19/16 Lubiprostone* (Amitiza*) 24 Mcg Capsule, 24 MCG PO BID for 30 Days, CAP Prov:EDILMA CASIANO 12/19/16 Hydralazine Hcl* (Hydralazine Hcl*) 25 Mg Tab, 25 MG PO Q6H Y for SBP >170 for 30 Days, TAB Prov:EDILMA CASIANO 12/19/16 Gabapentin* (Gabapentin*) 100 Mg Capsule, 100 MG PO TID for 30 Days, CAP Prov:EDILMA CASIANO 12/19/16 Atenolol* (Atenolol*) 25 Mg Tablet, 12.5 MG PO BID for 30 Days, TAB Prov:EDILMA CASIANO 12/19/16 Reported Medications Cinacalcet* (Sensipar*) 30 Mg Tab, 30 MG PO QHS for hyperparathyroidism, TAB 12/02/16 Primary Care Provider Dharmesh Lind Time spent on discharge: > 30 minutes Pending Labs Laboratory Tests Test 12/19/16 05:59 Sodium Level 145mmol/L (135-144) Potassium Level 4.5mmol/L (3.5-5.1) Chloride Level 98mmol/L (97-110) Carbon Dioxide Level 26mmol/L (21-31) Anion Gap 26 (8-16) Blood Urea Nitrogen 69mg/dl (7-20) Creatinine 5.04mg/dl (0.44-1.00) Glucose Level 70mg/dl (70-220) Calcium Level 9.7mg/dl (8.4-10.2) Total Bilirubin 0.0mg/dl (0.2-1.3) Direct Bilirubin 0.00mg/dl (0.00-0.20) Indirect Bilirubin 0.0mg/dl (0-1.1) Aspartate Amino Transf (AST/SGOT) 21IU/L (15-46) Alanine Aminotransferase (ALT/SGPT) 30IU/L (13-69) Alkaline Phosphatase 908IU/L (42-121) Total Protein 6.6g/dl (6.1-8.1) Albumin 3.7g/dl (3.3-4.9) Globulin 2.90g/dl (1.3-3.2) Albumin/Globulin Ratio 1.27 EDILMA CASIANO Dec 19, 2016 16:21
== END 2016-12-19 19:38 | disposition home or self-care (01) | DRG 625 ==
LOC: E/R 12:24 → MS4 17:19
PROVIDERS: ADMIT Internal Medicine; ATTEND Internal Medicine
PROC: 5A1D60Z (ICD-10-PCS; 2016-12-03)
PROC: B51WYZZ Fluoroscopy of Dialysis Shunt/Fistula using Other Contrast (ICD-10-PCS; 2016-12-07)
PROC: B51 Imaging, Veins, Fluoroscopy (ICD-10-PCS; 2016-12-07)
PROC: B518YZA Fluoroscopy of Superior Vena Cava using Other Contrast, Guidance (ICD-10-PCS; 2016-12-07)
PROC: B516YZA Fluoroscopy of Right Subclavian Vein using Other Contrast, Guidance (ICD-10-PCS; 2016-12-07)
PROC: B517YZA Fluoroscopy of Left Subclavian Vein using Other Contrast, Guidance (ICD-10-PCS; 2016-12-07)
PROC: B51MYZZ Fluoroscopy of Right Upper Extremity Veins using Other Contrast (ICD-10-PCS; 2016-12-07)
PROC: 0GBG3ZX Excision of Left Thyroid Gland Lobe, Percutaneous Approach, Diagnostic (ICD-10-PCS; 2016-12-09)
PROC: 30233N1 Transfusion of Nonautologous Red Blood Cells into Peripheral Vein, Percutaneous Approach (ICD-10-PCS; 2016-12-09)
PROC: 0GBP0ZZ Excision of Left Inferior Parathyroid Gland, Open Approach (ICD-10-PCS; 2016-12-11)
PROC: 0GBM0ZZ Excision of Left Superior Parathyroid Gland, Open Approach (ICD-10-PCS; 2016-12-11)
PROC: 0GBG0ZZ Excision of Left Thyroid Gland Lobe, Open Approach (ICD-10-PCS; principal; 2016-12-11 12:30)
DX: D35.1 Benign neoplasm of parathyroid gland (principal); N18.6 End stage renal disease; I50.33 Acute on chronic diastolic (congestive) heart failure; I95.9 Hypotension, unspecified; N25.81 Secondary hyperparathyroidism of renal origin; I87.1 Compression of vein; E87.5 Hyperkalemia; I13.2 Hypertensive heart and chronic kidney disease with heart failure and with stage 5 chronic kidney disease, or end stage renal disease; K31.84 Gastroparesis; E05.20 Thyrotoxicosis with toxic multinodular goiter without thyrotoxic crisis or storm; R13.10 Dysphagia, unspecified; Z99.2 Dependence on renal dialysis; D63.1 Anemia in chronic kidney disease; G50.0 Trigeminal neuralgia; K59.00 Constipation, unspecified; N25.0 Renal osteodystrophy; Z87.891 Personal history of nicotine dependence
CPT/HCPCS: 36415; 36430; 36901; 70490; 71010; 74000; 74176; 76536; 76705; 78014; 80048; 80053; 80061; 82310; 82330; 82962; 83690; 83880; 83970; 84100; 84436; 84439; 84443; 84479; 84480; 84481; 84484; 84703; 85025; 85610; 85730; 86376; 86803; 86850; 86870; 86900; 86901; 86902; 86920; 87340; 88305; 88307; 88331; 90935; 93005; 93306; 93880; 96374; 96375; 96376; A9516; C1769; C1887; C1894; J0610; J0690; J0886; J1170; J1200; J1815; J2270; J2370; J2405; J2765; J3010; J7040; P9016; P9047; Q4081; Q9967

== ENCOUNTER 2016-12-30 11:12 | Emergency (ER) | payer OTHER ==
[~2016-12-30] VITALS: Wt 52.5 kg
[~2016-12-30 11:12] MED LIST: ATEN-51 PO; CNC30T PO; GABA100C14 PO; HYDR-3671 PO; LUBI24CA7 PO; PANT40TA4 PO
[2016-12-30 12:42] LABS: BASOPHILS % 0.4 % (0.0-2.0); EOSINOPHILS # 0.1 10^3/ul (0.0-0.5); EOSINOPHILS % 1.5 % (0.0-7.0); HEMATOCRIT 28.6 % (37.0-47.0); HEMOGLOBIN 8.8 g/dl (12.0-16.0); LYMPHOCYTES # 1.1 10^3/ul (0.8-2.9); LYMPHOCYTES % 20.8 % (15.0-51.0); MEAN CORPUSCULAR HGB CONC 30.8 g/dl (32.0-37.0); MEAN CORPUSCULAR VOLUME 100.7 fl (82.0-101.0); MEAN PLATELET VOLUME 10.5 fl (7.4-10.4); MONOCYTE # 0.4 10^3/ul (0.3-0.9); MONOCYTES % 8.3 % (0.0-11.0); NEUTROPHILS % 68.4 % (39.0-77.0); PLATELET COUNT 142 10^3/UL (140-415); RED BLOOD COUNT 2.84 10^6/ul (4.20-5.40); RED CELL DISTRIBUTION WIDTH 17.5 % (11.5-14.5); WHITE BLOOD COUNT 5.2 10^3/ul (4.8-10.8)
[2016-12-30] MEDS ORDERED: ONDANSETRON 4 MG INJ IV STA (13:01)
[2016-12-30] MEDS ORDERED: morphine 4 MG/ML VIAL IV STA (13:01)
[2016-12-30 13:03] LABS: ALBUMIN 4.3 g/dl (3.3-4.9); ALBUMIN/GLOBULIN RATIO 1.34; CALCIUM 8.3 mg/dl (8.4-10.2); CREATININE 8.45 mg/dl (0.44-1.00); POTASSIUM 4.1 mmol/L (3.5-5.1); TOTAL PROTEIN 7.5 g/dl (6.1-8.1)
[2016-12-30] MEDS ORDERED: DIPHENHYDRAMINE 50 MG INJ IV ONE (13:30)
--- NOTE | 2016-12-30 15:12 | RADRPT ---
PROCEDURE: US Pelvis Transabdominal and Transvaginal. CLINICAL INDICATION: Pelvic pain, history of ovarian tumor. TECHNIQUE: Multiple sonographic images of the pelvis were obtained utilizing ochoa scale, Doppler a nd color flow imaging with transabdominal and endovaginal technique. The images were reviewed on a PACS workstation. COMPARISON: CT December 06, 2016 FINDINGS: The uterus is visualized and measures 6.2 x 3.4 x 4.6 cm. The endometrial echo complex measures 2.2 mm in thickness. No uterine masses are identified. The right ovary is not well visualized. The left ovary measures 4.3 x 2.5 x 3.9 cm. A 3.5 cm cyst containing a small amount of echogenic debris is identified on the left ovary. Left ovary demonstrat es a normal vascularity. No adnexal masses or pelvic free fluid are noted. IMPRESSION: 3.5 cm complex cyst containing a small amount of echogenic debris on the left ovary. This lesion cou ld correspond to the patient's known ovarian lesion/tumor. Correlation with clinical history is william mmended. Continued follow-up to assess stability with repeat exam in 8 - 12 weeks can be considered. Right ovary not well visualized. If characterization of this structure is needed repeat exam or CT/M RI is recommended. If further characterization of the organs of the pelvis is needed MRI should be considered. RPTAT: AA .Jefferson Rodriguez MD, MD Date Time Electronically viewed and signed by .Jefferson Rodriguez MD, on 12/30/2016 15:11 .P/
--- NOTE | 2016-12-30 15:39 | RADRPT ---
PROCEDURE: CT abdomen and pelvis without IV contrast. CLINICAL INDICATION: Abdomen pain. TECHNIQUE: CT scan of the abdomen and pelvis was performed on a [address] scanner. The patient is scanned without IV contrast. Coronal and sagittal reformatted images were obtained from the axia l source images. Images were reviewed on a high-resolution PACS workstation. Total radiation dose: Total CTDIvol: 4.7 mGy. Total DLP: 253 mGy-cm. One or more of the following d ose reduction techniques were used: automated exposure control, adjustment of the mA and/or kV accor ding to patient size, or use of iterative reconstruction technique. COMPARISON: CT abdomen pelvis, 11/26/2016.. FINDINGS: CT abdomen: The lung bases are clear. The heart is not enlarged without pericardial thickening or effusion. There is mild hepatosplenomegaly without focal hepatic mass or intrahepatic biliary dilatation. The stomach is partially collapsed but is grossly unremarkable. The pancreas as visualized is normal. The gallbladder is normal and there is no evidence of biliary dilatation. The adrenal glands are symmetrical and normal. The kidneys are contracted bilaterally. No renal ob structive uropathy or mass lesion is seen.. The aorta is normal in caliber. There is no retroperitoneal lymphadenopathy. The gagan hepatis reg ion is clear. The bowel and mesentery, as visualized, are equally unremarkable. CT pelvis: The appendix is normal in the right lower quadrant. There is small free fluid in the cul-de-sac. Th e small bowel loops situated within the pelvis are unremarkable. There is 3.6 cm x 2.6 cm low densi ty lesion in the left ovary. The female pelvic organs are normal. The pelvic sidewalls and inguina l regions are clear. No mass, lymphadenopathy is seen. No acute inflammation seen. The urinary bl adder is normal. There is 4 cm x 2.3 cm osteolytic lesion with sclerotic margin involving the right iliac wing. IMPRESSION: 1. Contracted kidneys bilaterally, indicating end-stage chronic renal disease. 2. Mild hepatosplenomegaly. 3. 3.6 cm x 2.6 cm low density lesion in the left ovary. Recommend correlation with pelvic ultras ound findings. 4. 4 cm x 2.3 cm osteolytic lesion with sclerotic margin involving the right iliac wing, unchanged. RPTAT: GG .Donta Turner MD, MD Date Time Electronically viewed and signed by .Donta Turner MD, MD on 12/30/2016 15:39 .Y/
[2016-12-30] MEDS ORDERED: HYDROCODONE/APAP (10/325) TAB PO ONE (16:00)
[2016-12-30 16:34] VITALS: BP 127/58; PULSE 81; RESP 16; TEMP 98.7
--- NOTE | 2016-12-31 09:58 | ERD ---
ER Documentation Chief Complaint Date/Time DATE: 12/31/16 TIME: 09:39 Chief Complaint epigastric pain 3 day with nausea and diarrhea HPI 31-year-old female complaining of diffuse abdominal pain and diarrhea 3 days. Pain is 10 out of 10, constant, does not vary with food intake. Diarrhea is nonbloody. She has nausea but no vomiting. Patient also reports body aches and back pain. She took a [place] at home yesterday for pain relief. Patient has history of thyroid tumor s/p recent thyroid surgery about 1 month ago, is taking levothyroxin. Patient also has history of end-stage renal disease, on dialysis Wednesday, Wednesday and Fridays. She does have an appointment at dialysis appointment today at 1 PM. She was told by dialysis nurse on the phone to come to the ER if she is in pain, she could get dialysis done in the ER. Denies fever or chills. ROS All systems reviewed and are negative except as per history of present illness. Medications Home Meds Active Scripts Pantoprazole* (Pantoprazole*) 40 Mg Tablet.dr, 40 MG PO DAILY@06 for 30 Days Prov:EDILMA CASIANO 12/19/16 Lubiprostone* (Amitiza*) 24 Mcg Capsule, 24 MCG PO BID for 30 Days, CAP Prov:EDILMA CASIANO 12/19/16 Hydralazine Hcl* (Hydralazine Hcl*) 25 Mg Tab, 25 MG PO Q6H Y for SBP >170 for 30 Days, TAB Prov:EDILMA CASIANO 12/19/16 Gabapentin* (Gabapentin*) 100 Mg Capsule, 100 MG PO TID for 30 Days, CAP Prov:EDILMA CASIANO 12/19/16 Atenolol* (Atenolol*) 25 Mg Tablet, 12.5 MG PO BID for 30 Days, TAB Prov:EDILMA CASIANO 12/19/16 Reported Medications Cinacalcet* (Sensipar*) 30 Mg Tab, 30 MG PO QHS for hyperparathyroidism, TAB 12/02/16 Allergies Allergies: Coded Allergies: vancomycin (Verified Allergy, Unknown, 12/30/16) PMhx/Soc History of Surgery: Yes (DIALYSUS SHUNT LT ARM ) Anesthesia Reaction: No Hx 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 Disorder: No Hx Respiratory Disorders: No Hx Cardiac Disorders: No Hx Psychiatric Problems: No Hx Miscellaneous Medical Probl: Yes (ESRD ON HEMODIALYSIS M/W/F ) Hx Alcohol Use: No Hx Substance Use: No Hx Tobacco Use: No Smoking Status: Never smoker Physical Exam Vitals Vital Signs Date Time Temp Pulse Resp B/P Pulse Ox O2 Delivery O2 Flow Rate FiO2 12/30/16 16:34 98.7 81 16 127/58 100 Room Air 12/30/16 11:22 98.3 98 18 130/61 98 Physical Exam General: Well-developed, well-nourished, conscious and coherent, in no distress Skin: Warm and dry without rash, good texture and turgor Head: Normocephalic without evidence of trauma Eyes: Sclera and conjunctivae normal; pupils equal, round, and reactive to light; extraocular movements are intact Ears: Canals are patent. Tympanic membranes are clear Chest: Normal AP diameter. Good expansion without retractions. Nontender. Lungs are clear to auscultate bilaterally with good tidal volume Heart: Regular rate and rhythm. No murmur, rub, or gallops heard Abdomen: Soft, diffusely tender without masses, guarding, or rebound. Bowel sounds are active. No hepatosplenomegaly Back: Without spinal or CVA tenderness Extremities: Full range of motion. Good strength bilaterally. No clubbing, cyanosis, or edema. Peripheral pulses are intact. Sensation intact Neuro: Alert and oriented 4, GCS 15. Cranial nerves grossly intact. Motor and sensory exams nonfocal. Moves all extremities. Speech clear. Gait normal Result Diagram: 12/30/16 1215 12/30/16 1215 Results 24 hrs Laboratory Tests Test 12/30/16 12:15 White Blood Count 5.210^3/ul Red Blood Count 2.8410^6/ul Hemoglobin 8.8g/dl Hematocrit 28.6% Mean Corpuscular Volume 100.7fl Mean Corpuscular Hemoglobin 31.0pg Mean Corpuscular Hemoglobin Concent 30.8g/dl Red Cell Distribution Width 17.5% Platelet Count 15364^3/UL Mean Platelet Volume 10.5fl Neutrophils % 68.4% Lymphocytes % 20.8% Monocytes % 8.3% Eosinophils % 1.5% Basophils % 0.4% Nucleated Red Blood Cells % 0.0/100WBC Neutrophils # (Manual) 3.510^3/ul Lymphocytes # 1.110^3/ul Monocytes # 0.410^3/ul Eosinophils # 0.110^3/ul Basophils # 0.010^3/ul Nucleated Red Blood Cells # 0.010^3/ul Sodium Level 142mmol/L Potassium Level 4.1mmol/L Chloride Level 92mmol/L Carbon Dioxide Level 30mmol/L Anion Gap 24 Blood Urea Nitrogen 67mg/dl Creatinine 8.45mg/dl Glucose Level 115mg/dl Calcium Level 8.3mg/dl Total Bilirubin 0.0mg/dl Direct Bilirubin 0.00mg/dl Indirect Bilirubin 0.0mg/dl Aspartate Amino Transf (AST/SGOT) 19IU/L Alanine Aminotransferase (ALT/SGPT) 21IU/L Alkaline Phosphatase 920IU/L Total Protein 7.5g/dl Albumin 4.3g/dl Globulin 3.20g/dl Albumin/Globulin Ratio 1.34 Lipase 87U/L Serum HCG, Qualitative POSITIVE Beta HCG, Quantitative 30.6mIU/ml Current Medications Medications (Trade) Dose Ordered Sig/Twila Route PRN Reason Start Time Stop Time Status Last Admin Dose Admin Morphine Sulfate (morphine) 4 mg ONCE STAT IV 12/30/16 13:01 12/30/16 13:02 DC 12/30/16 13:21 Ondansetron HCl (Zofran Inj) 4 mg ONCE STAT IV 12/30/16 13:01 12/30/16 13:02 DC 12/30/16 13:20 Diphenhydramine HCl (Benadryl) 50 mg ONCE ONCE IV 12/30/16 13:30 12/30/16 13:31 DC 12/30/16 13:31 Acetaminophen/ Hydrocodone Bitart ([place] (10/325)) 1 tab ONCE ONCE PO 12/30/16 16:00 12/30/16 16:01 DC 12/30/16 16:02 PROCEDURE: CT abdomen and pelvis without IV contrast. CLINICAL INDICATION: Abdomen pain. TECHNIQUE: CT scan of the abdomen and pelvis was performed on a [address] scanner. The patient is scanned without IV contrast. Coronal and sagittal reformatted images were obtained from the axial source images. Images were reviewed on a high-resolution PACS workstation. Total radiation dose: Total CTDIvol: 4.7 mGy. Total DLP: 253 mGy-cm. One or more of the following dose reduction techniques were used: automated exposure control, adjustment of the mA and/or kV according to patient size, or use of iterative reconstruction technique. COMPARISON: CT abdomen pelvis, 11/26/2016.. FINDINGS: CT abdomen: The lung bases are clear. The heart is not enlarged without pericardial thickening or effusion. There is mild hepatosplenomegaly without focal hepatic mass or intrahepatic biliary dilatation. The stomach is partially collapsed but is grossly unremarkable. The pancreas as visualized is normal. The gallbladder is normal and there is no evidence of biliary dilatation. The adrenal glands are symmetrical and normal. The kidneys are contracted bilaterally. No renal obstructive uropathy or mass lesion is seen.. The aorta is normal in caliber. There is no retroperitoneal lymphadenopathy. The gagan hepatis region is clear. The bowel and mesentery, as visualized, are equally unremarkable. CT pelvis: The appendix is normal in the right lower quadrant. There is small free fluid in the cul-de-sac. The small bowel loops situated within the pelvis are unremarkable. There is 3.6 cm x 2.6 cm low density lesion in the left ovary. The female pelvic organs are normal. The pelvic sidewalls and inguinal regions are clear. No mass, lymphadenopathy is seen. No acute inflammation seen. The urinary bladder is normal. There is 4 cm x 2.3 cm osteolytic lesion with sclerotic margin involving the right iliac wing. IMPRESSION: 1. Contracted kidneys bilaterally, indicating end-stage chronic renal disease. 2. Mild hepatosplenomegaly. 3. 3.6 cm x 2.6 cm low density lesion in the left ovary. Recommend correlation with pelvic ultrasound findings. 4. 4 cm x 2.3 cm osteolytic lesion with sclerotic margin involving the right iliac wing, unchanged. RPTAT: GG .Donta Turner MD, MD Date Time Electronically viewed and signed by .Donta Turner MD, MD on 12/30/2016 15:39 .Y/ CC: JEANE MORGAN NP PROCEDURE: US Pelvis Transabdominal and Transvaginal. CLINICAL INDICATION: Pelvic pain, history of ovarian tumor. TECHNIQUE: Multiple sonographic images of the pelvis were obtained utilizing ochoa scale, Doppler and color flow imaging with transabdominal and endovaginal technique. The images were reviewed on a PACS workstation. COMPARISON: CT December 06, 2016 FINDINGS: The uterus is visualized and measures 6.2 x 3.4 x 4.6 cm. The endometrial echo complex measures 2.2 mm in thickness. No uterine masses are identified. The right ovary is not well visualized. The left ovary measures 4.3 x 2.5 x 3.9 cm. A 3.5 cm cyst containing a small amount of echogenic debris is identified on the left ovary. Left ovary demonstrates a normal vascularity. No adnexal masses or pelvic free fluid are noted. IMPRESSION: 3.5 cm complex cyst containing a small amount of echogenic debris on the left ovary. This lesion could correspond to the patient's known ovarian lesion/ tumor. Correlation with clinical history is recommended. Continued follow-up to assess stability with repeat exam in 8 - 12 weeks can be considered. Right ovary not well visualized. If characterization of this structure is needed repeat exam or CT/MRI is recommended. If further characterization of the organs of the pelvis is needed MRI should be considered. RPTAT: AA .Jefferson Rodriguez MD, MD Date Time Electronically viewed and signed by .Jefferson Rodriguez MD, on 12/30/2016 15:11 .P/ CC: JEANE MORGAN DOOR LINER Procedures/MDM Well-appearing 31-year-old female presented ED with diffuse abdominal pain and diarrhea 3 days. No leukocytosis noted on CBC. Mild anemia is noted, likely due to end-stage renal disease. CMP is remarkable for creatinine of 8.45, again due to end- stage renal disease. Patient is anuretic, serum hCG was obtained. Serum hCG is positive. Patient stated that "it is always positive". She has ovarian tumor. Beta hCG quant is 30.6. I doubt the positive hCG is due to . CT abdomen and pelvis is remarkable for contracted kidneys bilaterally, mild hepatosplenomegaly, low-density lesions in the left ovary, osteolytic lesion with sclerotic margin involving the right iliac wing unchanged. No sign of appendicitis, cholecystitis, bowel obstruction, or diverticulitis. Pelvic ultrasound showed a 3.5 cm complex cyst, could correspond to patient's known ovarian lesion/tumor. Patient was given 4 mg morphine IV, 4 mg Zofran IV, and 50 mg Benadryl IV in the ED. Patient showed good pain relief after morphine. I suspect patient's diffuse abdominal pain and diarrhea is due to a viral illness. Patient appears well, stable for discharge and outpatient management. Medical decision making shared with patient and family. Education provided to patient and family. Patient and family expressed understanding of the plan. Medications on discharge: None. Follow-up: Primary care provider in 2-3 days or return to ED if worse. Patient did miss her dialysis appointment today. Advised patient that we could not provide dialysis services in the ER. She will need to reschedule her dialysis appointment SUSANNE. Patient stated that she is calling the dialysis center for an appointment right now. Disclaimer: Inadvertent spelling and grammatical errors are likely due to EHR/ dictation software use and do not reflect on the overall quality of patient care. Also, please note that the electronic time recorded on this note does not necessarily reflect the actual time of the patient encounter. Departure Diagnosis: Primary Impression: Abdominal pain Condition: Stable Patient Instructions: Abdominal Pain Referrals: BOTTLING RO[employer] WORKER [place] [address] [facility] [address] [place], [place] [id number] OFFICE FAX SHREYAS PULIDO [address] [place], [place] [phone] [place]ST[place]AN [address] [place], [place] [phone] ITZEL WILSON [address] [facility], [facility] [address] [place] [phone] XIOMARA SHIPLEY [address] [place], [place] [phone] [facility] [address] [place], [place] [phone] [address] [facility], [facility] [phone] - DR JO, ALHAJI [address], [facility] [phone] [place], TYRONE [address] [facility]. [address], [facility] [phone] CUR[address]E, [facility] [address] [place] [address] Additional Instructions: Call your primary care doctor TOMORROW for an appointment during the next 2-3 days.See the doctor sooner or return here if your condition worsens before your appointment time. JEANE MORGAN NP Dec 31, 2016 09:49
== END 2016-12-30 16:35 | disposition home or self-care (01) ==
LOC: FTE 11:12
DX: R10.13 Epigastric pain (principal); N18.6 End stage renal disease; R11.0 Nausea; R19.7 Diarrhea, unspecified; R10.2 Pelvic and perineal pain; Z99.2 Dependence on renal dialysis
CPT/HCPCS: 36415; 74176; 76830; 76856; 80053; 83690; 84702; 84703; 85025; 93005; 96374; 96375; J1200; J2270; J2405; Z7502; Z7610

== ENCOUNTER 2017-03-23 07:02 | Inpatient (IN) | payer OTHER ==
[~2017-03-23] VITALS: Ht 162.6 cm; Wt 51.2 kg
[2017-03-23] MEDS ORDERED: morphine 4 MG/ML VIAL IV STA ×2 (07:15→10:27)
[2017-03-23] MEDS ORDERED: SOD CHLORIDE 0.9% 250 ML IV STA (07:15)
[2017-03-23 07:36] LABS: BASOPHILS % 0.1 % (0.0-2.0); EOSINOPHILS % 0.1 % (0.0-7.0); HEMATOCRIT 31.5 % (37.0-47.0); HEMOGLOBIN 10.4 g/dl (12.0-16.0); LYMPHOCYTES # 1.3 10^3/ul (0.8-2.9); LYMPHOCYTES % 17.4 % (15.0-51.0); MEAN CORPUSCULAR HEMOGLOBIN 34.1 pg (29.0-33.0); MEAN CORPUSCULAR VOLUME 103.3 fl (82.0-101.0); MEAN PLATELET VOLUME 10.4 fl (7.4-10.4); MONOCYTE # 0.5 10^3/ul (0.3-0.9); MONOCYTES % 6.9 % (0.0-11.0); NEUTROPHIL # 5.6 10^3/ul (1.6-7.5); NEUTROPHILS % 75.1 % (39.0-77.0); PLATELET COUNT 197 10^3/UL (140-415); RED BLOOD COUNT 3.05 10^6/ul (4.20-5.40); RED CELL DISTRIBUTION WIDTH 15.2 % (11.5-14.5); WHITE BLOOD COUNT 7.5 10^3/ul (4.8-10.8)
--- NOTE | 2017-03-23 07:47 | RADRPT ---
PROCEDURE: XR Chest. CLINICAL INDICATION: Abdominal pain. TECHNIQUE: Single frontal view of the chest was obtained. COMPARISON: 12/12/2016. FINDINGS: The cardiomediastinal silhouette is normal in size. No focal consolidation is seen. No pleural effusion is seen. No definite pneumothorax. No acute osseous abnormality. Well defined 2.6 cm lucent lesion is noted in the mid right humerus. IMPRESSION: 1. No radiographic evidence of an acute cardiopulmonary process. 2. Well defined 2.6 cm lucent lesion in the mid right humerus. Recommend further evaluation with ded icated radiographs of the right humerus. RPTAT: AAEE Seth Reese Physician Date Time Electronically viewed and signed by Seth Reese Physician on 03/23/2017 07:47 PH/
[2017-03-23 08:04] LABS: ALBUMIN 4.5 g/dl (3.3-4.9); ALBUMIN/GLOBULIN RATIO 1.5; BILIRUBIN,INDIRECT 0.1 mg/dl (0-1.1); BILIRUBIN,TOTAL 0.1 mg/dl (0.2-1.3); CALCIUM 10.1 mg/dl (8.4-10.2); CREATININE 6.42 mg/dl (0.44-1.00); POTASSIUM 4.6 mmol/L (3.5-5.1); TOTAL PROTEIN 7.5 g/dl (6.1-8.1)
--- NOTE | 2017-03-23 08:41 | RADRPT ---
PROCEDURE: Right humerus x-ray CLINICAL INDICATION: Lucency in humerus, pain TECHNIQUE: AP and lateral views of the humerus were obtained. COMPARISON: Chest x-ray from 03/23/2017 FINDINGS: There is normal mineralization. In the cortex of the mid humeral diaphysis, there is a 1.1 x 2.6 x 1.2 cm well-defined lytic lesion . This likely reflects a benign process. No fracture is identified. There is no significant soft tissue swelling. The visualized joints are normal. IMPRESSION: 1. 1.1 x 1.2 x 2.6 cm well-defined lytic lesion in the cortex of the mid humeral diaphysis. This li theron reflects a benign process such as a non-ossifying fibroma or fibrous cortical defect. 2. Otherwise, no significant abnormalities are identified. RPTAT:AAJJ Physician Bill Date Time Electronically viewed and signed by Physician Bill on 03/23/2017 08:41 RIKA/
[2017-03-23] MEDS ORDERED: SEVE800T10 PO (08:49)
[2017-03-23] MEDS ORDERED: DIPHENHYDRAMINE 50 MG INJ IV ONE ×2 (09:30→13:30)
--- NOTE | 2017-03-23 10:11 | RADRPT ---
PROCEDURE: US Pelvis Transabdominal and Transvaginal. CLINICAL INDICATION: Left pelvic pain. TECHNIQUE: Multiple sonographic images of the pelvis were obtained utilizing ochoa scale, Doppler a nd color flow imaging with transabdominal and endovaginal technique. The images were reviewed on a PACS workstation. COMPARISON: US PELVIS 12/30/2016 FINDINGS: The uterus is visualized and measures 7.1 x 3.9 x 3.7 cm. The endometrial echo complex measures 7.0 mm in thickness. No uterine masses are identified. The right ovary measures 3.2 x 1.6 x 1.6 cm . The left ovary measures 4.7 x 3.0 x 3.7 cm. A 1.3 cm simple cyst is seen on the right ovary. A 4.3 cm cyst containing echogenic debris is identified on the left ovary. The ovaries demonstrate normal vascularity. No adnexal masses or pelvic free fluid are noted. IMPRESSION: Continued cyst containing echogenic debris on the left ovary. Cyst now measures up to 4.3 cm (previo usly 3.5 cm). Etiology of this lesion is uncertain. Cystic malignancy cannot be excluded. Given the interval increase in size and persistence of this cyst over time, further characterization with MRI is recommended. 1.3 cm simple cyst on the right ovary. This likely reflects a prominent follicle or physiologic cyst . If further characterization of the organs of the pelvis is needed MRI should be considered. RPTAT: AA .Jefferson Rodriguez MD, MD Date Time Electronically viewed and signed by .Jefferson Rodriguez MD, MD on 03/23/2017 10:11 .P/
[2017-03-23] MEDS ORDERED: SOD CHLORIDE 0.9% 1,000 ML IV SCH (10:27)
[2017-03-23] MEDS ORDERED: ONDANSETRON 4 MG INJ IV PRN (10:30)
[2017-03-23] MEDS ORDERED: ACETAMINOPHEN 325 MG TAB PO PRN (10:30)
--- NOTE | 2017-03-23 10:31 | ERD ---
ER Documentation Chief Complaint Chief Complaint has low back pain radiating to her pelvic region also has a SANDERS HPI This is a 31-year-old female who presents to the emergency room for evaluation of lower abdominal pain. The patient does state that she has a history of an ovarian mass, she states that she has had a thyroid surgery and is scheduled to have a parathyroid removal done tomorrow March 24, 2017. She describes her abdominal pain as an aching sharp pain localized to the left portion of abdomen with no radiation. She denies any vaginal discharge, she does state she is on dialysis and goes to dialysis Wednesday, Wednesday, Wednesday. She did complete dialysis yesterday, she says she does not make any urine. ROS All systems reviewed and are negative except as per history of present illness. Medications Home Meds Reported Medications Sevelamer Hcl* (Renagel*) 800 Mg Tablet, 800 MG PO WITH MEALS, TAB 03/23/17 Cinacalcet* (Sensipar*) 30 Mg Tab, 30 MG PO QHS for hyperparathyroidism, TAB 12/02/16 Discontinued Scripts Pantoprazole* (Pantoprazole*) 40 Mg Tablet.dr, 40 MG PO DAILY@06 for 30 Days Prov:EDILMA CASIANO 12/19/16 Lubiprostone* (Amitiza*) 24 Mcg Capsule, 24 MCG PO BID for 30 Days, CAP Prov:EDILMA CASIANO 12/19/16 Hydralazine Hcl* (Hydralazine Hcl*) 25 Mg Tab, 25 MG PO Q6H Y for SBP >170 for 30 Days, TAB Prov:EDILMA CASIANO 12/19/16 Gabapentin* (Gabapentin*) 100 Mg Capsule, 100 MG PO TID for 30 Days, CAP Prov:EDILMA CASIANO 12/19/16 Atenolol* (Atenolol*) 25 Mg Tablet, 12.5 MG PO BID for 30 Days, TAB Prov:EDILMA CASIANO 12/19/16 Allergies Allergies: Coded Allergies: vancomycin (Verified Allergy, Unknown, 12/30/16) PMhx/Soc History of Surgery: Yes (DIALYSUS SHUNT LT ARM ) Anesthesia Reaction: No Hx 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 Disorder: No Hx Respiratory Disorders: No Hx Cardiac Disorders: No Hx Psychiatric Problems: No Hx Miscellaneous Medical Probl: Yes (ESRD ON HEMODIALYSIS M/W/F ) Hx Alcohol Use: No Hx Substance Use: No Hx Tobacco Use: No Smoking Status: Never smoker Physical Exam Vitals Vital Signs Date Time Temp Pulse Resp B/P Pulse Ox O2 Delivery O2 Flow Rate FiO2 03/23/17 07:05 98.2 123 18 107/57 96 Physical Exam INITIAL VITAL SIGNS: Reviewed by me GENERAL: The patient is well developed and appropriate for usual state of health in no apparent distress HEENT: Pupils equal, round, and reactive to light. EOMI. There is no scleral icterus. NECK: C-spine is soft and supple, there is no meningismus. There is no cervical lymphadenopathy. LUNGS: Clear to auscultation bilaterally. There are no rales, wheezes or rhonchi. HEART: Regular rate and rhythm, no murmurs, clicks, rubs or gallops. ABDOMEN: Left lower quadrant tenderness to palpation, otherwise soft, non-tender , non-distended. There are bowel sounds in all four quadrants. No rebound or guarding. EXTREMITIES: There is no peripheral cyanosis or edema. No focal swelling or erythema. NEUROLOGICAL: The patient moves all four extremities with 5/5 strength. Cranial nerves II - XII are intact. Normal gait. Alert and oriented SKIN: There is no apparent rash or petechiae. HEME/LYMPHATIC: There is no evidence of excessive bruising or lymphedema. PSYCHIATRIC: The patient does not appear anxious or depressed. Result Diagram: 03/23/1772903/23/17 0730 Results 24 hrs Laboratory Tests Test 03/23/17 07:30 White Blood Count 7.510^3/ul Red Blood Count 3.0510^6/ul Hemoglobin 10.4g/dl Hematocrit 31.5% Mean Corpuscular Volume 103.3fl Mean Corpuscular Hemoglobin 34.1pg Mean Corpuscular Hemoglobin Concent 33.0g/dl Red Cell Distribution Width 15.2% Platelet Count 89332^3/UL Mean Platelet Volume 10.4fl Neutrophils % 75.1% Lymphocytes % 17.4% Monocytes % 6.9% Eosinophils % 0.1% Basophils % 0.1% Nucleated Red Blood Cells % 0.0/100WBC Neutrophils # 5.610^3/ul Lymphocytes # 1.310^3/ul Monocytes # 0.510^3/ul Eosinophils # 0.010^3/ul Basophils # 0.010^3/ul Nucleated Red Blood Cells # 0.010^3/ul Sodium Level 140mmol/L Potassium Level 4.6mmol/L Chloride Level 85mmol/L Carbon Dioxide Level 36mmol/L Anion Gap 24 Blood Urea Nitrogen 47mg/dl Creatinine 6.42mg/dl Glucose Level 77mg/dl Calcium Level 10.1mg/dl Total Bilirubin 0.1mg/dl Direct Bilirubin 0.00mg/dl Indirect Bilirubin 0.1mg/dl Aspartate Amino Transf (AST/SGOT) 22IU/L Alanine Aminotransferase (ALT/SGPT) 19IU/L Alkaline Phosphatase 843IU/L Total Protein 7.5g/dl Albumin 4.5g/dl Globulin 3.00g/dl Albumin/Globulin Ratio 1.50 Lipase 66U/L Current Medications Medications (Trade) Dose Ordered Sig/Twila Route PRN Reason Start Time Stop Time Status Last Admin Dose Admin Sodium Chloride (NS) 250 ml @ 250 mls/hr Q1H STAT IV 03/23/17 07:15 03/23/17 08:14 DC 03/23/17 07:29 Morphine Sulfate (morphine) 4 mg ONCE STAT IV 03/23/17 07:15 03/23/17 07:16 DC 03/23/17 07:28 Diphenhydramine HCl (Benadryl) 25 mg ONCE ONCE IV 03/23/17 09:30 03/23/17 09:59 DC 03/23/17 09:37 Morphine Sulfate (morphine) 4 mg ONCE STAT IV 03/23/17 10:27 03/23/17 10:28 Procedures/MDM Chest X-ray 1V Interpreted by me: Soft Tissue: No acute abnormalities, lucency left humerus Bones: No acute abnormalities Mediastinum/Cardiac Silhouette/Lungs: [No acute abnormalities] X-ray Humerus 2V Interpreted by me: Bones: No fracture Joints: No dislocation Foreign body: None Transvaginal ultrasound: Continued cyst containing echogenic debris on the left ovary. Cyst now measures up to 4.3 cm (previously 3.5 cm). Etiology of this lesion is uncertain. Cystic malignancy cannot be excluded. Given the interval increase in size and persistence of this cyst over time, further characterization with MRI is recommended. 1.3 cm simple cyst on the right ovary. This likely reflects a prominent follicle or physiologic cyst. If further characterization of the organs of the pelvis is needed MRI should be considered. This 31-year-old female presents to the ER for evaluation of abdominal pain. The patient is scheduled to have a parathyroidectomy tomorrow according to the patient. The patient was complaining of lower abdominal pain. I did review her previous medical records and it does appear that she has a left ovarian mass. Repeat ultrasound today does show an increased size of the mass. I have contacted Dr. Turner who is her admitting physician and states that he would like the patient admitted for pain control. She does require 2 doses of morphine here in the emergency room. She will be placed on the [facility] floor at this time as she is hemodynamically stable. Departure Diagnosis: Primary Impression: Abdominal pain Additional Impressions: End stage kidney disease Secondary hyperparathyroidism of renal origin Anemia Ovarian mass, left Condition: MARKO Alanis DO Mar 23, 2017 10:31
--- NOTE | 2017-03-23 13:19 | HP ---
Date/Time of Note Date/Time of Note DATE: 03/23/17 TIME: 13:04 Assessment/Plan VTE Prophylaxis VTE Prophylaxis Intervention: heparin Assessment/Plan Assessment/Plan -Abdominal pain, continue morphine for pain and Zofran as needed for nausea. -Left ovarian mass -End-stage renal disease, patient had a last hemodialysis yesterday. Dr. Silverio is asked to see patient in nephrology consultation. -Secondary hyperparathyroidism of renal origin -Anemia Further recommendations based on clinical course. Plan of care discussed with Dr. Turner. HPI/ROS Admit Date/Time Admit Date/Time Hx of Present Illness The patient is 31-year-old female known to me from previous admission. Patient has a history of kidney failure, on hemodialysis, HTN, hx of secondary hyperparathyroidism due to renal disease. Patient underwent partial left thyroid lobectomy, left upper and lower parathyroidectomy in [place] [address] Calix. Patient presented to the emergency room due to a lower abdominal pain that she developed last night. Patient describes her abdominal pain as an aching sharp pain localized to the left portion of abdomen with no radiation. Patient has a history of ovarian mass. Patient underwent pelvic ultrasound which revealed increase in a left ovarian cystic compared to previous study. Patient denies any vaginal discharge, denies any nausea vomiting, denies fever denies chest pain denies shortness of breath. Patient stated that she had thyroid scan surgery scheduled for March 24. Patient had her last dialysis yesterday. The patient will be admitted for further evaluation and management. ROS per HPI PMH/Family/Social Past Medical History Medical History: hypertension, renal disease Past Surgical History Status post left upper extremity AV fistula, s/p partial left thyroid lobectomy , left upper and lower parathyroidectomy in November [address] Calix Past Surgical Hx: other Family History Significant Family History: no pertinent family hx Social History Alcohol Use: none Smoking Status: Never smoker Drug Use: none Exam/Review of Systems Vital Signs Vitals Vital Signs Date Time Temp Pulse Resp B/P Pulse Ox O2 Delivery O2 Flow Rate FiO2 03/23/17 11:54 78 18 108/78 98 Room Air 03/23/17 07:05 98.2 Exam Constitutional: alert, oriented Head: atraumatic, normocephalic Neck: supple Respiratory: normal air movement Cardiovascular: nl pulses Gastrointestinal: soft, tender Musculoskeletal: nl extremities to inspection Extremities: normal pulses, other (Left upper extremity fistula) 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: nl mental status Skin: nl turgor Labs Result Diagram: 03/23/1730 03/23/17729 Medications Medications Current Medications Sodium Chloride (NS) 1,000 ml @ 80 mls/hr [id number] IV Last administered on t 10:40; Admin Dose 80 MLS/HR; Start 03/23/17 at 10:27; Stop 03/23/17 at 22:56 ERICK ROBERTSON Mar 23, 2017 13:15
[2017-03-23 16:01] VITALS: TEMP 98.1
[2017-03-23] MEDS: morphine 2 MG INJ IV PRN ×2 (17:52→23:19)
[2017-03-23] MEDS: DIPHENHYDRAMINE 50 MG INJ IV PRN (17:53)
[2017-03-23 19:00] VITALS: BP 101/53; PULSE 16; RESP 18; Ht 162.6 cm; Wt 51.2 kg
[2017-03-23] MEDS: CINACALCET 30 MG TAB PO SCH (21:00)
--- NOTE | 2017-03-23 21:27 | CONS ---
DATE OF ADMISSION: 03/23/2017 DATE OF CONSULTATION: HISTORY OF PRESENT ILLNESS: This is a 31-year-old, para 0, 0 Latin female, who speaks limited Czech and information obtained from the review of the present and past records. Please refer to the hospital record for further details. In summary, the patient has known history of hypertension, end-stage kidney disease and has been on hemodialysis for several years, under the care of Dr. Jones. The patient has had previous admissions to this facility multiple times, please refer to the old records. She was found to have hyperparathyroidism for which a parathyroidectomy had been performed earlier, and unfortunately this was not successful because her PTH remained over 4000. At this time, patient complaining of left lower abdominal pain and she presented to the emergency room. In the ER, she had a pelvic x-ray which showed a 1.3 cm cyst in the right ovary and there was another cyst, 4.3 cm in the left ovary. The patient is being admitted for further evaluation and treatment. Rest of the system review is significant in that the patient is somewhat noncompliant and does not take her medications. For instance, her phosphorus level is always elevated, the main reason for the elevated PTH. Her additional studies have shown hemoglobin 10.4, white count 7.5 and the hematocrit 31.5%. The alkaline phosphatase is very high, 843, and creatinine is 6.42, BUN is 47, the CO2 is 36. As mentioned, PTH is still in the range of 4000. MEDICATIONS: At this time, include: 1. IV fluids, which have been discontinued. 2. Benadryl. 3. Morphine. 4. Zofran. No other medications have been ordered as of now. REVIEW OF SYSTEMS: The rest of the system review is negative for any head, ear , nose and throat problem. The patient denies any acute chest pain, abdominal pain, flank pain. She does have left lower abdominal pain as mentioned. No BINDER OPERATOR problems at this time. No acute gout, joint pain, seizures, syncope or other metabolic problems. I cannot elicit any history of any bony injuries. PHYSICAL EXAMINATION: GENERAL: The patient to be a somewhat anxious female. VITAL SIGNS: Blood pressure is 105/56, heart rate is 80, temperature is 98.1, respirations 16. HEAD: Unremarkable. EYES: Pale conjunctivae. Sclerae are anicteric. NOSE: Normal mucosa. THROAT: Tongue is pale. No pharyngeal congestion. NECK: Supple. No JVD, lymph node or enlargement of thyroid present. Scar from previous parathyroidectomy is well healed. CHEST: Symmetrical. BREASTS: Not examined. LUNGS: Clear. HEART: Regular rhythm, S1, S2 unremarkable. ABDOMEN: Flat, soft. Left lower quadrant, nonspecific tenderness elicited. I cannot palpate any cyst or mass. GENITALIA: Not examined. EXTREMITIES: Left arm AV fistula is functioning. SKIN: Pale. NEUROLOGIC: No other neurological deficits noted. IMPRESSION: 1. History of hyperparathyroidism, secondary due to renal disease, s/p failed parathyroidectomy. 2. 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 3. History of anemia. 4. LL Abd pain due to Ovarian cyst. PLAN: This patient appears to have multiple medical problems in addition to the renal. While I leave the workup of the ovarian cyst in your good hands, I am concerned about her degree of hyperparathyroidism, however. For this reason , she would really need to be considered for repeat parathyroidectomy, and we may have to contact the surgeon who operated on the patient before. In the meanwhile, the patient will be placed on vigorous doses of phosphate binders to reduce her phosphate level, and thus hopefully reduce the PTH level to some degree, although the severity will prohibit the drop of PTH to significant close to normal range. I will also add the Sensipar and monitor the patient's clinical course closely. Hemodialysis, we will continue on as per scheduled basis, Wednesday, Wednesday, Wednesday. Dictated By: CAMERON ISIDRO MD SD/NTS Conf#: [id number] DID#: [id number] CC: LUANNE WALTER MD;*EndCC* MTDD
[2017-03-24] VITALS (14 sets, daily range): BP systolic 86–102; BP diastolic 45–56; PULSE 72–89; RESP 16–20
[2017-03-24] MEDS: DIPHENHYDRAMINE 50 MG INJ IV PRN ×4 (00:16→20:41)
[2017-03-24 05:57] LABS: BASOPHILS % 0.6 % (0.0-2.0); EOSINOPHILS # 0.1 10^3/ul (0.0-0.5); EOSINOPHILS % 1.3 % (0.0-7.0); HEMATOCRIT 29.6 % (37.0-47.0); HEMOGLOBIN 9.2 g/dl (12.0-16.0); LYMPHOCYTES # 1.5 10^3/ul (0.8-2.9); LYMPHOCYTES % 31.3 % (15.0-51.0); MEAN CORPUSCULAR HEMOGLOBIN 33.8 pg (29.0-33.0); MEAN CORPUSCULAR HGB CONC 31.1 g/dl (32.0-37.0); MEAN CORPUSCULAR VOLUME 108.8 fl (82.0-101.0); MONOCYTE # 0.4 10^3/ul (0.3-0.9); MONOCYTES % 7.5 % (0.0-11.0); NEUTROPHIL # 2.7 10^3/ul (1.6-7.5); NEUTROPHILS % 59.1 % (39.0-77.0); PLATELET COUNT 170 10^3/UL (140-415); RED BLOOD COUNT 2.72 10^6/ul (4.20-5.40); RED CELL DISTRIBUTION WIDTH 15.3 % (11.5-14.5); WHITE BLOOD COUNT 4.6 10^3/ul (4.8-10.8)
[2017-03-24 06:36] LABS: CALCIUM 8.9 mg/dl (8.4-10.2); CREATININE 8.17 mg/dl (0.44-1.00); POTASSIUM 5.3 mmol/L (3.5-5.1)
[2017-03-24] MEDS: morphine 2 MG INJ IV PRN ×3 (07:27→20:42)
[2017-03-24] MEDS: SEVELAMER 800 MG TAB PO SCH ×3 (07:35→17:35)
[2017-03-24] MEDS: CALCIUM ACETATE 667 MG CAP PO SCH ×3 (07:35→17:35)
[2017-03-24] MEDS: CINACALCET 30 MG TAB PO SCH (09:00)
--- NOTE | 2017-03-24 12:40 | PN ---
Date/Time of Note Date/Time of Note DATE: 03/24/17 TIME: 12:37 Assessment/Plan VTE Prophylaxis VTE Prophylaxis Intervention: SCD's Lines/Catheters IV Catheter Type (from Nrsg): Saline Lock Assessment/Plan Chief Complaint/Hosp Course Patient stated her pain is better controlled today, denies any nausea vomiting. Assessment/Plan -Abdominal pain, continue morphine for pain and Zofran as needed for nausea. -Left ovarian mass, director volunteer services consult requested -End-stage renal disease, patient had a last hemodialysis yesterday. Dr. Silverio is following in nephrology consultation. -Secondary hyperparathyroidism of renal origin, s/p partial left thyroid lobectomy, left upper and lower parathyroidectomy in [place] [address] Morales is asked to see patient in surgical consultation. -Anemia Further recommendations based on clinical course. Plan of care discussed with Dr. Turner. Problems: Exam/Review of Systems Vital Signs Vitals Vital Signs Date Time Temp Pulse Resp B/P Pulse Ox O2 Delivery O2 Flow Rate FiO2 03/24/17 07:37 98.3 84 18 91/51 98 03/24/17 06:05 Room Air Exam Constitutional: alert, oriented Respiratory: normal air movement Cardiovascular: nl pulses Gastrointestinal: soft, tender Musculoskeletal: nl extremities to inspection Extremities: normal pulses, other (Left upper extremity fistula) Results Result Diagram: 03/24/17 0434 03/24/17 0434 Results 24 hrs Laboratory Tests Test 03/24/17 04:34 White Blood Count 4.6 #L Red Blood Count 2.72 L Hemoglobin 9.2 L Hematocrit 29.6 L Mean Corpuscular Volume 108.8 H Mean Corpuscular Hemoglobin 33.8 H Mean Corpuscular Hemoglobin Concent 31.1 L Red Cell Distribution Width 15.3 H Platelet Count 170 Mean Platelet Volume 11.0 H Neutrophils % 59.1 Lymphocytes % 31.3 Monocytes % 7.5 Eosinophils % 1.3 Basophils % 0.6 Nucleated Red Blood Cells % 0.0 Neutrophils # 2.7 Lymphocytes # 1.5 Monocytes # 0.4 Eosinophils # 0.1 Basophils # 0.0 Nucleated Red Blood Cells # 0.0 Sodium Level 140 Potassium Level 5.3 H Chloride Level 92 L Carbon Dioxide Level 34 H Anion Gap 19 H Blood Urea Nitrogen 64 H Creatinine 8.17 H Glucose Level 65 #L Calcium Level 8.9 Medications Medications Current Medications Morphine Sulfate (morphine) 2 mg Q4H PRN IV pain 7-10 Last administered on 07:27; Admin Dose 2 MG; Start 03/23/17 at 18:00 Cinacalcet (Sensipar) 90 mg DAILY PO Last administered on 03/23/17 21:00; Admin Dose 90 MG; Start 03/23/17 at 21:00 Acetaminophen (Tylenol Tab) 650 mg Q6H PRN PO PAIN AND OR ELEVATED TEMP; Start 03/23/17 at 23:00 Ondansetron HCl (Zofran Inj) 4 mg Q6H PRN IV NAUSEA AND/OR VOMITING; Start at 23:00 Diphenhydramine HCl (Benadryl) 50 mg Q6H PRN IV itching Last administered on 06:28; Admin Dose 50 MG; Start 03/24/17 at 06:00 Influenza Virus Vaccine (Fluzone) 0.5 ml ONCE ONCE IM* ; Start 03/25/17 at 09: 00; Stop 03/25/17 at 09:01 ERICK ROBERTSON Mar 24, 2017 12:40
--- NOTE | 2017-03-24 15:14 | CONS ---
Date/Time of Note Date/Time of Note DATE: 03/24/17 TIME: 15:10 Assessment/Plan Assessment/Plan Additional Assessment/Plan 31 yo Female with -Abdominal pain -Left ovarian mass -End-stage renal disease -MBD Secondary hyperparathyroidism , s/p partial left thyroid lobectomy, left upper and lower parathyroidectomy [place] [address] Morales. -Anemia Chronic Disease -Hyperkalemia HD MWF Ordered for today UF as tolerated appreciate ENT consultation Cont Current Rx and plan Case discussed with patients Cellular Phone Repairer Dr Jones Consultation Date/Type/Reason Admit Date/Time Mar 23, 2017 at 10:28 Initial Consult Date Type of Consultation: Nephrology Reason for Consultation ESRD Referring Provider: LUANNE WALTER MD 24 HR Interval Summary Free Text/Dictation NO new complaints, HD MWF Constitutional: No requiring O2 Exam/Review of Systems Vital Signs Vitals Vital Signs Date Time Temp Pulse Resp B/P Pulse Ox O2 Delivery O2 Flow Rate FiO2 03/24/17 07:37 98.3 84 18 91/51 98 03/24/17 06:05 Room Air Exam Constitutional: alert, oriented, No distress ENMT: mucosa pink and moist Neck: No jvd Respiratory: clear to auscultation, No diminished breath sounds, No labored breathing Cardiovascular: regular rate and rhythm, No edema Gastrointestinal: non-tender, soft Musculoskeletal: nl extremities to inspection Extremities: other (LUE AVF, Good thrill), No edema 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: MAGAZINE KEEPER II-XII intact, nl mental status, No lethargic Skin: nl turgor, No rash or lesions Results Result Diagram: 03/24/17 0434 03/24/17 0434 Results 24 hrs Laboratory Tests Test 03/24/17 04:34 White Blood Count 4.6 #L Red Blood Count 2.72 L Hemoglobin 9.2 L Hematocrit 29.6 L Mean Corpuscular Volume 108.8 H Mean Corpuscular Hemoglobin 33.8 H Mean Corpuscular Hemoglobin Concent 31.1 L Red Cell Distribution Width 15.3 H Platelet Count 170 Mean Platelet Volume 11.0 H Neutrophils % 59.1 Lymphocytes % 31.3 Monocytes % 7.5 Eosinophils % 1.3 Basophils % 0.6 Nucleated Red Blood Cells % 0.0 Neutrophils # 2.7 Lymphocytes # 1.5 Monocytes # 0.4 Eosinophils # 0.1 Basophils # 0.0 Nucleated Red Blood Cells # 0.0 Sodium Level 140 Potassium Level 5.3 H Chloride Level 92 L Carbon Dioxide Level 34 H Anion Gap 19 H Blood Urea Nitrogen 64 H Creatinine 8.17 H Glucose Level 65 #L Calcium Level 8.9 Medications Medications Current Medications Morphine Sulfate (morphine) 2 mg Q4H PRN IV pain 7-10 Last administered on 13:25; Admin Dose 2 MG; Start 03/23/17 at 18:00 Cinacalcet (Sensipar) 90 mg DAILY PO Last administered on 03/23/17 21:00; Admin Dose 90 MG; Start 03/23/17 at 21:00 Acetaminophen (Tylenol Tab) 650 mg Q6H PRN PO PAIN AND OR ELEVATED TEMP; Start 03/23/17 at 23:00 Ondansetron HCl (Zofran Inj) 4 mg Q6H PRN IV NAUSEA AND/OR VOMITING; Start at 23:00 Diphenhydramine HCl (Benadryl) 50 mg Q6H PRN IV itching Last administered on 13:24; Admin Dose 50 MG; Start 03/24/17 at 06:00 Influenza Virus Vaccine (Fluzone) 0.5 ml ONCE ONCE IM* ; Start 03/25/17 at 09: 00; Stop 03/25/17 at 09:01 JUANJO TATUM MD Mar 24, 2017 15:14
--- NOTE | 2017-03-24 18:55 | CONS ---
Date/Time of Note Date/Time of Note DATE: 03/24/17 TIME: 18:44 Assessment/Plan Assessment/Plan Chief Complaint/Hosp Course Left lower abdominal pain with nausea for 1 week Imaging shows increase in the size of the left ovarian cyst , 4.3 cm with echogenic debris. recommended further evaluation rule out malignancy Right follicular ovarian cyst Evidence of torsion due to normal vascularity in both ovaries and pelvic ultrasound Currently patient hemodynamically stable. No evidence of cyst torsion or rupture Recommended proceed with checking tumor markers, CA 125, CA-19-9 Breasts bilateral lumps. Mobile. Status post biopsy of the right breast lump located at 8:00. Per patient result is still pending Left breast lump at 11:00 as well palpable 1 x 1 cm mobile. Per patient had been evaluated as outpatient and did not require biopsy Follow-up of the tumor markers Anemia, macrocytic. due to chronic medical condition Vaginal discharge, exam consistent with yeast infection. Recommended vaginal clotrimazole cream for 7 days Continue current pain management Will follow-up with the patient after the labs in-house Discussed with patient importance of follow-up of the breast lump biopsy Patient denies any family history of breast or ovarian cancer Will continue to follow-up in-house tumor markers . if tumor markers are abnormal recommended consultation with DISTRICT PLANT SUPERINTENDENT oncologist Problems: Consultation Date/Type/Reason Admit Date/Time Mar 23, 2017 at 10:28 Date of Consultation: Mar 24, 2017 Type of Consultation: DISTRICT PLANT SUPERINTENDENT Reason for Consultation 31-year-old with multiple comorbidities including renal failure, hyperparathyroidism due to chornic renal failure presented with complaint of abdominal pain for the past week and increased since 2 days ago. Patient reports pain is in the left lower abdomen with radiation to the back. Pain worsened 2 days ago and brought her to emergency room. She denies any nausea, vomiting, fever, chills, vaginal bleeding, dysuria inability to tolerate p.o.,, diarrhea, or any other symptoms. Patient currently admitted to medicine service. She has a history of chronic renal failure since 7 years ago undergoing dialysis. Reports amenorrhea since 2 years ago after his shunt was placed in her left arm for dialysis. Status post 13 years ago. Patient did not desire any fertility. Reports amenorrhea for 2 years. Denies any menopausal symptoms. She had a pelvic ultrasound in December when she presented with complaint of abdominal pain mostly in the upper abdomen and had the incidental finding of a 3 and half centimeter left ovarian cyst in the pelvic CT scan that showed increase in the size to 4 and half centimeter in pelvic ultrasound done in this facility when she presented 2 days ago with abdominal pain. Ultrasound showed evidence of a follicular cyst 1 and half centimeter in the right ovary as well as 4.3 cm centimeter LT ovarian cyst with echogenic debris in LT side, interval increased in size. and with normal blood flow to both ovaries. Subjective hx not possible: other Constitutional: no complaints Eyes: no complaints ENT: no complaints Respiratory: no complaints Cardiovascular: no complaints Gastrointestinal: pain Genitourinary: discharge, other (Vaginal itching and discharge for the last 2 days) Musculoskeletal: no complaints Skin: no complaints Neurologic: no complaints Endocrine: no complaints Psychological: no complaints Immunologic: no complaints Past Medical History Medical History: hypertension, renal disease Past Surgical History Status post shunt placement in the left arm for dialysis due to kidney failure Past Surgical Hx: other Family History Significant Family History: no pertinent family hx Social History Alcohol Use: none Smoking Status: Never smoker Drug Use: none Other Social History She is currently unemployed Exam/Review of Systems Vital Signs Vitals Vital Signs Date Time Temp Pulse Resp B/P Pulse Ox O2 Delivery O2 Flow Rate FiO2 03/24/17 17:15 78 03/24/17 16:56 18 91/52 03/24/17 14:00 98.0 98 03/24/17 06:05 Room Air Exam Constitutional: alert, oriented, other (Does not appear to be in any acute distress), well developed Psych: no complaints Head: normocephalic Eyes: nl conjunctiva ENMT: nl external ears & nose, nl lips & teeth Neck: supple Respiratory: clear to auscultation Cardiovascular: nl pulses, regular rate and rhythm Gastrointestinal: soft, tender (Tenderness in the left lower abdomen moderately in the palpation. No rebound tenderness, no guarding, no rigidity, abdomen soft. No guarding, no evidence of acute abdomen. No distention) Genitourinary - Female: other (Sterile speculum examination: Moderate amount of white vaginal discharge. Cervix appears to be normal. No blood in the vault. Uterus normal size. No uterine tenderness, there is moderate tenderness in the left adnexa and the palpation. No tenderness in the right adnexa.) 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: GAS ENGINE OPERATOR II-XII intact, nl mental status, nl speech Skin: nl turgor, rash or lesions Lymph: nl lymph nodes Results Result Diagram: 03/24/174 03/24/174 Results 24 hrs Laboratory Tests Test 03/24/17 04:32 03/24/17 04:34 CA 19-9 Antigen 6.7 CA 125 Antigen < 5.5 White Blood Count 4.6 #L Red Blood Count 2.72 L Hemoglobin 9.2 L Hematocrit 29.6 L Mean Corpuscular Volume 108.8 H Mean Corpuscular Hemoglobin 33.8 H Mean Corpuscular Hemoglobin Concent 31.1 L Red Cell Distribution Width 15.3 H Platelet Count 170 Mean Platelet Volume 11.0 H Neutrophils % 59.1 Lymphocytes % 31.3 Monocytes % 7.5 Eosinophils % 1.3 Basophils % 0.6 Nucleated Red Blood Cells % 0.0 Neutrophils # 2.7 Lymphocytes # 1.5 Monocytes # 0.4 Eosinophils # 0.1 Basophils # 0.0 Nucleated Red Blood Cells # 0.0 Sodium Level 140 Potassium Level 5.3 H Chloride Level 92 L Carbon Dioxide Level 34 H Anion Gap 19 H Blood Urea Nitrogen 64 H Creatinine 8.17 H Glucose Level 65 #L Calcium Level 8.9 Medications Medications Current Medications Morphine Sulfate (morphine) 2 mg Q4H PRN IV pain 7-10 Last administered on 13:25; Admin Dose 2 MG; Start 03/23/17 at 18:00 Cinacalcet (Sensipar) 90 mg DAILY PO Last administered on 03/23/17 21:00; Admin Dose 90 MG; Start 03/23/17 at 21:00 Acetaminophen (Tylenol Tab) 650 mg Q6H PRN PO PAIN AND OR ELEVATED TEMP; Start 03/23/17 at 23:00 Ondansetron HCl (Zofran Inj) 4 mg Q6H PRN IV NAUSEA AND/OR VOMITING; Start at 23:00 Diphenhydramine HCl (Benadryl) 50 mg Q6H PRN IV itching Last administered on 13:24; Admin Dose 50 MG; Start 03/24/17 at 06:00 Influenza Virus Vaccine (Fluzone) 0.5 ml ONCE ONCE IM* ; Start 03/25/17 at 09: 00; Stop 11/30/17 at 09:01 Procedures Procedures PROCEDURE: US Pelvis Transabdominal and Transvaginal. CLINICAL INDICATION: Left pelvic pain. TECHNIQUE: Multiple sonographic images of the pelvis were obtained utilizing ochoa scale, Doppler and color flow imaging with transabdominal and endovaginal technique. The images were reviewed on a PACS workstation. COMPARISON: US PELVIS 12/30/2016 FINDINGS: The uterus is visualized and measures 7.1 x 3.9 x 3.7 cm. The endometrial echo complex measures 7.0 mm in thickness. No uterine masses are identified. The right ovary measures 3.2 x 1.6 x 1.6 cm . The left ovary measures 4.7 x 3.0 x 3.7 cm. A 1.3 cm simple cyst is seen on the right ovary. A 4.3 cm cyst containing echogenic debris is identified on the left ovary. The ovaries demonstrate normal vascularity. No adnexal masses or pelvic free fluid are noted. IMPRESSION: Continued cyst containing echogenic debris on the left ovary. Cyst now measures up to 4.3 cm (previously 3.5 cm). Etiology of this lesion is uncertain. Cystic malignancy cannot be excluded. Given the interval increase in size and persistence of this cyst over time, further characterization with MRI is recommended. 1.3 cm simple cyst on the right ovary. This likely reflects a prominent follicle or physiologic cyst. If further characterization of the organs of the pelvis is needed MRI should be considered. MARSHALL ROSSI MD Mar 24, 2017 18:54
[2017-03-24] MEDS: CLOTRIMAZOLE 1% 45 GM VAG CR VAG SCH (22:07)
[2017-03-25] MEDS: morphine 2 MG INJ IV PRN ×3 (05:54→15:55)
[2017-03-25] MEDS: DIPHENHYDRAMINE 50 MG INJ IV PRN ×3 (05:55→17:55)
[2017-03-25 06:53] LABS: BASOPHILS % 0.9 % (0.0-2.0); EOSINOPHILS # 0.1 10^3/ul (0.0-0.5); EOSINOPHILS % 2.6 % (0.0-7.0); HEMATOCRIT 32.1 % (37.0-47.0); HEMOGLOBIN 10.4 g/dl (12.0-16.0); LYMPHOCYTES # 1.2 10^3/ul (0.8-2.9); LYMPHOCYTES % 33.2 % (15.0-51.0); MEAN CORPUSCULAR HEMOGLOBIN 34.1 pg (29.0-33.0); MEAN CORPUSCULAR HGB CONC 32.4 g/dl (32.0-37.0); MEAN CORPUSCULAR VOLUME 105.2 fl (82.0-101.0); MEAN PLATELET VOLUME 10.3 fl (7.4-10.4); MONOCYTE # 0.3 10^3/ul (0.3-0.9); MONOCYTES % 8.4 % (0.0-11.0); NEUTROPHIL # 1.9 10^3/ul (1.6-7.5); NEUTROPHILS % 54.6 % (39.0-77.0); PLATELET COUNT 181 10^3/UL (140-415); RED BLOOD COUNT 3.05 10^6/ul (4.20-5.40); RED CELL DISTRIBUTION WIDTH 15.1 % (11.5-14.5); WHITE BLOOD COUNT 3.5 10^3/ul (4.8-10.8)
[2017-03-25 07:13] LABS: CALCIUM 9.4 mg/dl (8.4-10.2); CREATININE 5.28 mg/dl (0.44-1.00); POTASSIUM 4.1 mmol/L (3.5-5.1)
[2017-03-25 07:36] VITALS: BP 81/44; RESP 18
--- NOTE | 2017-03-25 08:38 | CONS ---
Date/Time of Note Date/Time of Note DATE: 03/25/17 TIME: 08:36 Assessment/Plan Assessment/Plan Additional Assessment/Plan 31 yo Female with 1) Abdominal pain 2) Left ovarian mass 3) End-stage renal disease 4) MBD Secondary hyperparathyroidism , s/p partial left thyroid lobectomy, left upper and lower parathyroidectomy [place] [address] Morales. 5) Anemia Chronic Disease 6) Hyperkalemia- Resolved HD MWF S/p HD yesterday Cont Current Rx and plan Case discussed with patients Cps Team Lead Dr Jones Consultation Date/Type/Reason Admit Date/Time Mar 23, 2017 at 10:28 Type of Consultation: Renal Referring Provider: LUANNE WALTER MD 24 HR Interval Summary Free Text/Dictation S/p HD yesterday Constitutional: No requiring O2 Exam/Review of Systems Vital Signs Vitals Vital Signs Date Time Temp Pulse Resp B/P Pulse Ox O2 Delivery O2 Flow Rate FiO2 03/25/17 07:36 98.1 90 18 81/44 98 03/24/17 21:00 Room Air Intake and Output 03/24/17 03/24/17 03/25/17 15:00 23:00 07:00 Intake Total 1040 ml 240 ml Output Total 4000 ml Balance -2960 ml 240 ml Exam Constitutional: alert, No distress Head: atraumatic Eyes: EOMI Results Result Diagram: 03/25/17 0624 03/25/17 0624 Results 24 hrs Laboratory Tests Test 03/25/17 06:24 White Blood Count 3.5 #L Red Blood Count 3.05 L Hemoglobin 10.4 L Hematocrit 32.1 L Mean Corpuscular Volume 105.2 H Mean Corpuscular Hemoglobin 34.1 H Mean Corpuscular Hemoglobin Concent 32.4 Red Cell Distribution Width 15.1 H Platelet Count 181 Mean Platelet Volume 10.3 Neutrophils % 54.6 Lymphocytes % 33.2 Monocytes % 8.4 Eosinophils % 2.6 Basophils % 0.9 Nucleated Red Blood Cells % 0.0 Neutrophils # 1.9 Lymphocytes # 1.2 Monocytes # 0.3 Eosinophils # 0.1 Basophils # 0.0 Nucleated Red Blood Cells # 0.0 Sodium Level 137 Potassium Level 4.1 Chloride Level 91 L Carbon Dioxide Level 30 Anion Gap 20 H Blood Urea Nitrogen 29 #H Creatinine 5.28 #H Glucose Level 52 #L Calcium Level 9.4 Medications Medications Current Medications Morphine Sulfate (morphine) 2 mg Q4H PRN IV pain 7-10 Last administered on 05:54; Admin Dose 2 MG; Start 03/23/17 at 18:00 Cinacalcet (Sensipar) 90 mg DAILY PO Last administered on 03/23/17 21:00; Admin Dose 90 MG; Start 03/23/17 at 21:00 Acetaminophen (Tylenol Tab) 650 mg Q6H PRN PO PAIN AND OR ELEVATED TEMP; Start 03/23/17 at 23:00 Ondansetron HCl (Zofran Inj) 4 mg Q6H PRN IV NAUSEA AND/OR VOMITING; Start at 23:00 Diphenhydramine HCl (Benadryl) 50 mg Q6H PRN IV itching Last administered on 05:55; Admin Dose 50 MG; Start 03/24/17 at 06:00 Influenza Virus Vaccine (Fluzone) 0.5 ml ONCE ONCE IM* ; Start 03/25/17 at 09: 00; Stop 03/25/17 at 09:01 Clotrimazole (Clotrim 1% Vaginal Cr) 1 applic HS VAG Last administered on 03/24 22:07; Admin Dose 1 APPLIC; Start 03/24/17 at 21:00 JUANJO TATUM MD Mar 25, 2017 08:37
[2017-03-25] MEDS: CALCIUM ACETATE 667 MG CAP PO SCH ×3 (08:48→17:10)
[2017-03-25] MEDS: SEVELAMER 800 MG TAB PO SCH ×3 (08:48→17:10)
[2017-03-25] MEDS: CINACALCET 30 MG TAB PO SCH (08:48)
[2017-03-25] MEDS ORDERED: INFLUENZA VIRUS VACCINE 0.5 ML (DISPENSING) IM* ONE (09:00)
[2017-03-25 14:24] VITALS: BP 98/63; RESP 18
--- NOTE | 2017-03-25 14:53 | PN ---
Date/Time of Note Date/Time of Note DATE: 03/25/17 TIME: 14:48 Assessment/Plan VTE Prophylaxis VTE Prophylaxis Intervention: SCD's Lines/Catheters [facility] Saline Lock Assessment/Plan Chief Complaint/Hosp Course Patient is complaining of left abdominal pain, denies any nausea vomiting. Assessment/Plan -Abdominal pain, continue morphine for pain and Zofran as needed for nausea. -Left ovarian mass, Dr Nichole, is following in chief of harbor patrol consult. No evidence of torsion. F/up on tumor markers. -End-stage renal disease, patient had a last hemodialysis yesterday. Dr. Silverio is following in nephrology consultation. -Secondary hyperparathyroidism of renal origin, s/p partial left thyroid lobectomy, left upper and lower parathyroidectomy in [place] [address] Morales. Per discussion with patient's chiller tender in our nephrology colleague patient will undergo surgery as an outpatient. Discussed with Dr. Morales, if there is no urgency patient will follow up with ENT surgeon as an outpatient. -Anemia Further recommendations based on clinical course. Plan of care discussed with Dr. Turner. Problems: Exam/Review of Systems Vital Signs Vitals Vital Signs Date Time Temp Pulse Resp B/P Pulse Ox O2 Delivery O2 Flow Rate FiO2 03/25/17 14:24 98.1 107 18 98/63 98 03/24/17 21:00 Room Air Intake and Output 03/24/17 03/24/17 03/25/17 15:00 23:00 07:00 Intake Total 1040 ml 240 ml Output Total 4000 ml Balance -2960 ml 240 ml Exam Constitutional: alert, oriented Respiratory: normal air movement Cardiovascular: nl pulses Gastrointestinal: soft, tender Musculoskeletal: nl extremities to inspection Extremities: normal pulses, other (Left upper extremity fistula) Results Result Diagram: 03/25/17 0624 03/25/17 0624 Results 24 hrs Laboratory Tests Test 03/25/17 06:24 White Blood Count 3.5 #L Red Blood Count 3.05 L Hemoglobin 10.4 L Hematocrit 32.1 L Mean Corpuscular Volume 105.2 H Mean Corpuscular Hemoglobin 34.1 H Mean Corpuscular Hemoglobin Concent 32.4 Red Cell Distribution Width 15.1 H Platelet Count 181 Mean Platelet Volume 10.3 Neutrophils % 54.6 Lymphocytes % 33.2 Monocytes % 8.4 Eosinophils % 2.6 Basophils % 0.9 Nucleated Red Blood Cells % 0.0 Neutrophils # 1.9 Lymphocytes # 1.2 Monocytes # 0.3 Eosinophils # 0.1 Basophils # 0.0 Nucleated Red Blood Cells # 0.0 Sodium Level 137 Potassium Level 4.1 Chloride Level 91 L Carbon Dioxide Level 30 Anion Gap 20 H Blood Urea Nitrogen 29 #H Creatinine 5.28 #H Glucose Level 52 #L Calcium Level 9.4 Medications Medications Current Medications Morphine Sulfate (morphine) 2 mg Q4H PRN IV pain 7-10 Last administered on 12:01; Admin Dose 2 MG; Start 03/23/17 at 18:00 Cinacalcet (Sensipar) 90 mg DAILY PO Last administered on 03/25/17 08:48; Admin Dose 90 MG; Start 03/23/17 at 21:00 Acetaminophen (Tylenol Tab) 650 mg Q6H PRN PO PAIN AND OR ELEVATED TEMP; Start 03/23/17 at 23:00 Ondansetron HCl (Zofran Inj) 4 mg Q6H PRN IV NAUSEA AND/OR VOMITING; Start at 23:00 Diphenhydramine HCl (Benadryl) 50 mg Q6H PRN IV itching Last administered on 12:00; Admin Dose 50 MG; Start 03/24/17 at 06:00 Clotrimazole (Clotrim 1% Vaginal Cr) 1 applic HS VAG Last administered on 03/24 22:07; Admin Dose 1 APPLIC; Start 03/24/17 at 21:00 ERICK ROBERTSON Mar 25, 2017 14:53
[2017-03-25 20:13] VITALS: BP 91/45; RESP 18
[2017-03-25] MEDS: CLOTRIMAZOLE 1% 45 GM VAG CR VAG SCH (20:59)
[2017-03-25 23:34] VITALS: BP 107/55
[2017-03-26] VITALS (10 sets, daily range): BP systolic 72–107; BP diastolic 44–65; PULSE 99–114; RESP 16–19
[2017-03-26] MEDS: DIPHENHYDRAMINE 50 MG INJ IV PRN ×4 (00:03→18:08)
[2017-03-26] MEDS: morphine 2 MG INJ IV PRN ×4 (00:04→20:21)
[2017-03-26 06:08] LABS: BASOPHILS % 0.4 % (0.0-2.0); EOSINOPHILS # 0.1 10^3/ul (0.0-0.5); HEMATOCRIT 31.1 % (37.0-47.0); HEMOGLOBIN 10.3 g/dl (12.0-16.0); LYMPHOCYTES # 1.4 10^3/ul (0.8-2.9); LYMPHOCYTES % 29.7 % (15.0-51.0); MEAN CORPUSCULAR HEMOGLOBIN 34.7 pg (29.0-33.0); MEAN CORPUSCULAR HGB CONC 33.1 g/dl (32.0-37.0); MEAN CORPUSCULAR VOLUME 104.7 fl (82.0-101.0); MEAN PLATELET VOLUME 10.3 fl (7.4-10.4); MONOCYTE # 0.5 10^3/ul (0.3-0.9); MONOCYTES % 9.8 % (0.0-11.0); NEUTROPHIL # 2.6 10^3/ul (1.6-7.5); NEUTROPHILS % 56.9 % (39.0-77.0); PLATELET COUNT 175 10^3/UL (140-415); RED BLOOD COUNT 2.97 10^6/ul (4.20-5.40); RED CELL DISTRIBUTION WIDTH 14.6 % (11.5-14.5); WHITE BLOOD COUNT 4.6 10^3/ul (4.8-10.8)
[2017-03-26 06:38] LABS: CALCIUM 9.8 mg/dl (8.4-10.2); CREATININE 8.1 mg/dl (0.44-1.00)
[2017-03-26] MEDS: CINACALCET 30 MG TAB PO SCH (08:28)
[2017-03-26] MEDS: CALCIUM ACETATE 667 MG CAP PO SCH ×3 (08:28→16:51)
[2017-03-26] MEDS: SEVELAMER 800 MG TAB PO SCH ×3 (08:28→16:51)
--- NOTE | 2017-03-26 13:44 | RADRPT ---
PROCEDURE: Pelvic ultrasound. CLINICAL INDICATION: Pelvic pain TECHNIQUE: Nugent scale, color doppler, spectral doppler ultrasound of the pelvis was performed with transabdominal and transvaginal transducers. COMPARISON: US PELVIS 03/23/2017 FINDINGS: Uterus: Position: Anteverted. Normal myometrial echogenicity. Normal appearance of the endometrium. Ovaries: Normal appearing right ovary. Normal appearing left ovary. 4.0 cm right adnexal lesion contains a 1.0 cm solid mural focus. 1.3 cm dominant follicle of the right ovary. Free fluid: Trace amount. Measurements: Endometrium (cm): 0.3 Uterus (cm): 7.3 x 3.3 x 4.1 Right ovary (cm): 3.1 x 1.7 x 1.8 Left ovary (cm): 2.9 x 1.6 x 1.7 IMPRESSION: 4.0 cm cystic right adnexal lesion containing a 1.0 cm solid mural nodule. MRI of the pelvis with an d without contrast is recommended for further evaluation to exclude malignancy. RPTAT: AADD .Sidney Kidd MD, MD Date Time Electronically viewed and signed by .Sidney Kidd MD, on 03/26/2017 13:44 .B/
--- NOTE | 2017-03-26 14:12 | QN ---
Documentation Comment patient is seen by the bedside ,She is comfortable and she complains of Mild LLQ pain VS stable Gen NAD Abd soft NT ND Genitalai No blood at perinium --4cm Right complex ovarian cyst by ultrasound,A diagnostic laparoscopy and possible ovarian cystectomy offered to patient but the patient is not NPO at the time.It can be done as an elective case with her Online Editor physician to r/o Any possible malignancy --Patient's questions answered HORTENCIA CARRANZA M.D. Mar 26, 2017 14:12
--- NOTE | 2017-03-26 17:16 | PN ---
Date/Time of Note Date/Time of Note DATE: 03/26/17 TIME: 17:13 Assessment/Plan VTE Prophylaxis VTE Prophylaxis Intervention: SCD's Lines/Catheters IV Catheter Type (from [facility]): Saline Lock Urinary Cath still in place: No Assessment/Plan Chief Complaint/Hosp Course Patient is undergoing hemodialysis, left abdominal pain is well controlled on current medication, denies any nausea vomiting. Assessment/Plan -Abdominal pain, continue morphine for pain and Zofran as needed for nausea. -Left ovarian mass, Dr Nichole, is following in nurse gynecology consult. No evidence of torsion. Tumor markers not elevated. Diagnostic laparoscopy and possible ovarian cystectomy is recommended. -End-stage renal disease, patient had a last hemodialysis yesterday. Dr. Silverio is following in nephrology consultation. -Secondary hyperparathyroidism of renal origin, s/p partial left thyroid lobectomy, left upper and lower parathyroidectomy in [place] [address] Morales. Per discussion with patient's head waiter in our nephrology colleague patient will undergo surgery as an outpatient. Discussed with Dr. Morales, if there is no urgency patient will follow up with ENT surgeon as an outpatient. -Anemia Further recommendations based on clinical course. Plan of care discussed with Dr. Turner. Problems: Exam/Review of Systems Vital Signs Vitals Vital Signs Date Time Temp Pulse Resp B/P Pulse Ox O2 Delivery O2 Flow Rate FiO2 03/26/17 14:00 98.1 95 16 94/49 100 03/24/17 21:00 Room Air Intake and Output 03/25/17 03/25/17 03/26/17 15:00 23:00 07:00 Intake Total 1040 ml 250 ml Balance 1040 ml 250 ml Exam Constitutional: alert, oriented Respiratory: normal air movement Cardiovascular: nl pulses Gastrointestinal: soft, tender Musculoskeletal: nl extremities to inspection Extremities: normal pulses, other (Left upper extremity fistula) Results Result Diagram: 03/26/17 0531 03/26/17 0532 Results 24 hrs Laboratory Tests Test 03/26/17 05:31 03/26/17 05:32 White Blood Count 4.6 #L Red Blood Count 2.97 L Hemoglobin 10.3 L Hematocrit 31.1 L Mean Corpuscular Volume 104.7 H Mean Corpuscular Hemoglobin 34.7 H Mean Corpuscular Hemoglobin Concent 33.1 Red Cell Distribution Width 14.6 H Platelet Count 175 Mean Platelet Volume 10.3 Neutrophils % 56.9 Lymphocytes % 29.7 Monocytes % 9.8 Eosinophils % 3.0 Basophils % 0.4 Nucleated Red Blood Cells % 0.0 Neutrophils # 2.6 Lymphocytes # 1.4 Monocytes # 0.5 Eosinophils # 0.1 Basophils # 0.0 Nucleated Red Blood Cells # 0.0 Sodium Level 136 Potassium Level 5.0 Chloride Level 88 L Carbon Dioxide Level 31 Anion Gap 22 H Blood Urea Nitrogen 64 #H Creatinine 8.10 #H Glucose Level 77 Calcium Level 9.8 Medications Medications Current Medications Morphine Sulfate (morphine) 2 mg Q4H PRN IV pain 7-10 Last administered on 03/26 12:11; Admin Dose 2 MG; Start 03/23/17 at 18:00 Cinacalcet (Sensipar) 90 mg DAILY PO Last administered on 03/26/17 08:28; Admin Dose 90 MG; Start 03/23/17 at 21:00 Acetaminophen (Tylenol Tab) 650 mg Q6H PRN PO PAIN AND OR ELEVATED TEMP; Start 03/23/17 at 23:00 Ondansetron HCl (Zofran Inj) 4 mg Q6H PRN IV NAUSEA AND/OR VOMITING; Start at 23:00 Diphenhydramine HCl (Benadryl) 50 mg Q6H PRN IV itching Last administered on 12:20; Admin Dose 50 MG; Start 03/24/17 at 06:00 Clotrimazole (Clotrim 1% Vaginal Cr) 1 applic HS VAG Last administered on 03/25 20:59; Admin Dose 1 APPLIC; Start 03/24/17 at 21:00 Acetaminophen/ Hydrocodone Bitart ([place] (5/325)) 1 tab Q4H PRN NGT PAIN LEVEL 4-6; Start 03/25/17 at 18:00 ERICK ROBERTSON Mar 26, 2017 17:16
[2017-03-26 17:42] LABS: PTH CALCIUM 8.6 mg/dL (8.6-10.2)
[2017-03-26] MEDS: CLOTRIMAZOLE 1% 45 GM VAG CR VAG SCH (20:59)
--- NOTE | 2017-03-26 22:33 | CONS ---
Date/Time of Note Date/Time of Note DATE: 03/26/17 TIME: 22:33 Assessment/Plan Assessment/Plan Problems: (1) End stage kidney disease Status: Chronic Comment: Continue HD MW Fridays (2) Secondary hyperparathyroidism of renal origin Status: Chronic Comment: continue Sensipar & Phosphate Binders (3) Anemia Status: Chronic Comment: Hct stable, no need for epo (4) Ovarian mass, left Status: Acute Comment: Per Pattern Layout Worker Consultation Date/Type/Reason Admit Date/Time Mar 23, 2017 at 10:28 Initial Consult Date 03/24/17 Type of Consultation: Renal Reason for Consultation ESRD,, HD Referring Provider: LUANNE WALTER MD 24 HR Interval Summary Free Text/Dictation Continues to c/o abd pain Exam/Review of Systems Vital Signs Vitals Vital Signs Date Time Temp Pulse Resp B/P Pulse Ox O2 Delivery O2 Flow Rate FiO2 03/26/17 19:20 112 03/26/17 19:20 18 03/26/17 14:00 98.1 94/49 100 03/24/17 21:00 Room Air Intake and Output 03/25/17 03/25/17 03/26/17 15:00 23:00 07:00 Intake Total 1040 ml 250 ml Balance 1040 ml 250 ml Exam Constitutional: alert, oriented, well developed Psych: nl mood/affect, no complaints Head: atraumatic, normocephalic Eyes: EOMI, PERRL, nl conjunctiva, nl lids, nl sclera ENMT: nl external ears & nose, nl lips & teeth, nl nasal mucosa & septum Neck: non-tender, other (Sx scar healed from recent PTX), supple Respiratory: clear to auscultation, normal air movement Cardiovascular: nl pulses, regular rate and rhythm Gastrointestinal: nl liver, spleen, non-tender, other (Left Lower quadrent abd pain still present.), soft Musculoskeletal: nl extremities to inspection, nl gait and stance Extremities: normal pulses, other (lt arm avf in place) 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: ROVING TECHNICIAN II-XII intact, nl mental status, nl speech, nl strength Skin: nl turgor, other (Pale), No rash or lesions Lymph: nl lymph nodes Results Hct, chemistry stable Result Diagram: 03/26/1731 03/26/17 0532 Results 24 hrs Laboratory Tests Test 03/26/17 05:31 03/26/17 05:32 White Blood Count 4.6 #L Red Blood Count 2.97 L Hemoglobin 10.3 L Hematocrit 31.1 L Mean Corpuscular Volume 104.7 H Mean Corpuscular Hemoglobin 34.7 H Mean Corpuscular Hemoglobin Concent 33.1 Red Cell Distribution Width 14.6 H Platelet Count 175 Mean Platelet Volume 10.3 Neutrophils % 56.9 Lymphocytes % 29.7 Monocytes % 9.8 Eosinophils % 3.0 Basophils % 0.4 Nucleated Red Blood Cells % 0.0 Neutrophils # 2.6 Lymphocytes # 1.4 Monocytes # 0.5 Eosinophils # 0.1 Basophils # 0.0 Nucleated Red Blood Cells # 0.0 Sodium Level 136 Potassium Level 5.0 Chloride Level 88 L Carbon Dioxide Level 31 Anion Gap 22 H Blood Urea Nitrogen 64 #H Creatinine 8.10 #H Glucose Level 77 Calcium Level 9.8 Medications Medications Current Medications Morphine Sulfate (morphine) 2 mg Q4H PRN IV pain 7-10 Last administered on 03/26 20:21; Admin Dose 2 MG; Start 03/23/17 at 18:00 Cinacalcet (Sensipar) 90 mg DAILY PO Last administered on 03/26/17 08:28; Admin Dose 90 MG; Start 03/23/17 at 21:00 Acetaminophen (Tylenol Tab) 650 mg Q6H PRN PO PAIN AND OR ELEVATED TEMP; Start 03/23/17 at 23:00 Ondansetron HCl (Zofran Inj) 4 mg Q6H PRN IV NAUSEA AND/OR VOMITING; Start at 23:00 Diphenhydramine HCl (Benadryl) 50 mg Q6H PRN IV itching Last administered on 18:08; Admin Dose 50 MG; Start 03/24/17 at 06:00 Clotrimazole (Clotrim 1% Vaginal Cr) 1 applic HS VAG Last administered on 20:59; Admin Dose 1 APPLIC; Start 03/24/17 at 21:00 Acetaminophen/ Hydrocodone Bitart ([place] (5/325)) 1 tab Q4H PRN NGT PAIN LEVEL 4-6; Start 03/25/17 at 18:00 CAMERON ISIDRO MD Mar 26, 2017 22:33
[2017-03-27] MEDS: DIPHENHYDRAMINE 50 MG INJ IV PRN ×4 (00:01→20:22)
[2017-03-27 02:00] VITALS: BP 84/46; RESP 19
[2017-03-27 05:15] LABS: BASOPHILS % 0.4 % (0.0-2.0); EOSINOPHILS # 0.1 10^3/ul (0.0-0.5); EOSINOPHILS % 2.6 % (0.0-7.0); HEMATOCRIT 32.1 % (37.0-47.0); HEMOGLOBIN 10.6 g/dl (12.0-16.0); LYMPHOCYTES # 1.4 10^3/ul (0.8-2.9); LYMPHOCYTES % 28.5 % (15.0-51.0); MEAN CORPUSCULAR VOLUME 102.9 fl (82.0-101.0); MEAN PLATELET VOLUME 10.9 fl (7.4-10.4); MONOCYTE # 0.5 10^3/ul (0.3-0.9); MONOCYTES % 9.6 % (0.0-11.0); NEUTROPHIL # 2.9 10^3/ul (1.6-7.5); NEUTROPHILS % 58.7 % (39.0-77.0); PLATELET COUNT 179 10^3/UL (140-415); RED BLOOD COUNT 3.12 10^6/ul (4.20-5.40)
[2017-03-27 05:55] LABS: CALCIUM 10.7 mg/dl (8.4-10.2); CREATININE 6.06 mg/dl (0.44-1.00); POTASSIUM 5.1 mmol/L (3.5-5.1)
[2017-03-27] MEDS: SEVELAMER 800 MG TAB PO SCH ×3 (07:34→17:45)
[2017-03-27] MEDS: morphine 2 MG INJ IV PRN ×3 (07:34→20:22)
[2017-03-27] MEDS: CALCIUM ACETATE 667 MG CAP PO SCH ×3 (07:34→17:46)
[2017-03-27 08:00] VITALS: BP 82/45; RESP 16
[2017-03-27] MEDS: CINACALCET 30 MG TAB PO SCH (12:00)
--- NOTE | 2017-03-27 12:00 | PN ---
Date/Time of Note Date/Time of Note DATE: 03/27/17 TIME: 11:57 Assessment/Plan VTE Prophylaxis VTE Prophylaxis Intervention: other Assessment/Plan Chief Complaint/Hosp Course esrd sec hyperparathyroidism ovarian cyst pain hd per plan Problems: Subjective 24 Hr Interval Summary Genitourinary: flank pain Exam/Review of Systems Vital Signs Vitals Vital Signs Date Time Temp Pulse Resp B/P Pulse Ox O2 Delivery O2 Flow Rate FiO2 03/27/17 08:00 97.4 96 16 82/45 98 03/26/17 20:00 Room Air Intake and Output 03/26/17 03/26/17 03/27/17 14:59 22:59 06:59 Intake Total 500 ml 240 ml Output Total 3500 ml 3000 ml Balance -3000 ml -2760 ml Exam Constitutional: alert, oriented, well developed Eyes: nl conjunctiva ENMT: nl external ears & nose Neck: supple Respiratory: clear to auscultation, normal air movement Cardiovascular: nl pulses, regular rate and rhythm Gastrointestinal: nl liver, spleen, soft Genitourinary - Female: nl adnexae Results Result Diagram: 03/27/17 0419 03/27/17 0419 Results 24 hrs Laboratory Tests Test 03/27/17 04:19 White Blood Count 5.0 Red Blood Count 3.12 L Hemoglobin 10.6 L Hematocrit 32.1 L Mean Corpuscular Volume 102.9 H Mean Corpuscular Hemoglobin 34.0 H Mean Corpuscular Hemoglobin Concent 33.0 Red Cell Distribution Width 15.0 H Platelet Count 179 Mean Platelet Volume 10.9 H Neutrophils % 58.7 Lymphocytes % 28.5 Monocytes % 9.6 Eosinophils % 2.6 Basophils % 0.4 Nucleated Red Blood Cells % 0.0 Neutrophils # 2.9 Lymphocytes # 1.4 Monocytes # 0.5 Eosinophils # 0.1 Basophils # 0.0 Nucleated Red Blood Cells # 0.0 Sodium Level 135 Potassium Level 5.1 Chloride Level 88 L Carbon Dioxide Level 30 Anion Gap 22 H Blood Urea Nitrogen 42 #H Creatinine 6.06 #H Glucose Level 76 Calcium Level 10.7 H Medications Medications Current Medications Morphine Sulfate (morphine) 2 mg Q4H PRN IV pain 7-10 Last administered on 03/27t 07:34; Admin Dose 2 MG; Start 03/23/17 at 18:00 Cinacalcet (Sensipar) 90 mg DAILY PO Last administered on 03/26/17 08:28; Admin Dose 90 MG; Start 03/23/17 at 21:00 Acetaminophen (Tylenol Tab) 650 mg Q6H PRN PO PAIN AND OR ELEVATED TEMP; Start 03/23/17 at 23:00 Ondansetron HCl (Zofran Inj) 4 mg Q6H PRN IV NAUSEA AND/OR VOMITING; Start at 23:00 Diphenhydramine HCl (Benadryl) 50 mg Q6H PRN IV itching Last administered on 07:33; Admin Dose 50 MG; Start 03/24/17 at 06:00 Clotrimazole (Clotrim 1% Vaginal Cr) 1 applic HS VAG Last administered on 20:59; Admin Dose 1 APPLIC; Start 03/24/17 at 21:00 Acetaminophen/ Hydrocodone Bitart ([place] (5/325)) 1 tab Q4H PRN NGT PAIN LEVEL 4-6; Start 03/25/17 at 18:00 ANNIE SANTOS MD Mar 27, 2017 12:00
--- NOTE | 2017-03-27 12:57 | PN ---
Date/Time of Note Date/Time of Note DATE: 03/27/17 TIME: 12:51 Assessment/Plan VTE Prophylaxis VTE Prophylaxis Intervention: other Assessment/Plan Assessment/Plan -Abdominal pain, continue morphine for pain and Zofran as needed for nausea. -Left ovarian mass, Dr Nichole, is following in market research associate consult. No evidence of torsion. Tumor markers not elevated. Diagnostic laparoscopy and possible ovarian cystectomy is recommended. -End-stage renal disease, patient had a last hemodialysis yesterday. Dr. Silverio is following in nephrology consultation. -Secondary hyperparathyroidism of renal origin, s/p partial left thyroid lobectomy, left upper and lower parathyroidectomy [place] [address] Morales. Per discussion with patient's school transportation director in our nephrology colleague patient will undergo surgery as an outpatient. Discussed with Dr. Morales, if there is no urgency patient will follow up with ENT surgeon as an outpatient. - PTH - 1596 -Anemia Further recommendations based on clinical course. Plan of care discussed with Dr. Turner. Subjective 24 Hr Interval Summary Respiratory: no complaints Cardiovascular: no complaints Gastrointestinal: no complaints Genitourinary: other (ovarian pain) Exam/Review of Systems Vital Signs Vitals Vital Signs Date Time Temp Pulse Resp B/P Pulse Ox O2 Delivery O2 Flow Rate FiO2 03/27/17 08:00 97.4 96 16 82/45 98 03/26/17 20:00 Room Air Intake and Output 03/26/17 03/26/17 03/27/17 15:00 23:00 07:00 Intake Total 500 ml 240 ml Output Total 3500 ml 3000 ml Balance -3000 ml -2760 ml Exam Constitutional: alert, oriented, well developed Respiratory: clear to auscultation, diminished breath sounds Cardiovascular: nl pulses, other (s1s2) Gastrointestinal: non-tender, soft Musculoskeletal: nl extremities to inspection Extremities: normal pulses 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: nl mental status, nl speech Results Result Diagram: 03/27/17 0419 03/27/17 0419 Results 24 hrs Laboratory Tests Test 03/27/17 04:19 White Blood Count 5.0 Red Blood Count 3.12 L Hemoglobin 10.6 L Hematocrit 32.1 L Mean Corpuscular Volume 102.9 H Mean Corpuscular Hemoglobin 34.0 H Mean Corpuscular Hemoglobin Concent 33.0 Red Cell Distribution Width 15.0 H Platelet Count 179 Mean Platelet Volume 10.9 H Neutrophils % 58.7 Lymphocytes % 28.5 Monocytes % 9.6 Eosinophils % 2.6 Basophils % 0.4 Nucleated Red Blood Cells % 0.0 Neutrophils # 2.9 Lymphocytes # 1.4 Monocytes # 0.5 Eosinophils # 0.1 Basophils # 0.0 Nucleated Red Blood Cells # 0.0 Sodium Level 135 Potassium Level 5.1 Chloride Level 88 L Carbon Dioxide Level 30 Anion Gap 22 H Blood Urea Nitrogen 42 #H Creatinine 6.06 #H Glucose Level 76 Calcium Level 10.7 H Medications Medications Current Medications Morphine Sulfate (morphine) 2 mg Q4H PRN IV pain 7-10 Last administered on 03/27 07:34; Admin Dose 2 MG; Start 03/23/17 at 18:00 Cinacalcet (Sensipar) 90 mg DAILY PO Last administered on 03/27/17 12:00; Admin Dose 90 MG; Start 03/23/17 at 21:00 Acetaminophen (Tylenol Tab) 650 mg Q6H PRN PO PAIN AND OR ELEVATED TEMP; Start 03/23/17 at 23:00 Ondansetron HCl (Zofran Inj) 4 mg Q6H PRN IV NAUSEA AND/OR VOMITING; Start at 23:00 Diphenhydramine HCl (Benadryl) 50 mg Q6H PRN IV itching Last administered on 07:33; Admin Dose 50 MG; Start 03/24/17 at 06:00 Clotrimazole (Clotrim 1% Vaginal Cr) 1 applic HS VAG Last administered on 20:59; Admin Dose 1 APPLIC; Start 03/24/17 at 21:00 Acetaminophen/ Hydrocodone Bitart ([place] (5/325)) 1 tab Q4H PRN NGT PAIN LEVEL 4-6; Start 03/25/17 at 18:00 EDILMA CASIANO Mar 27, 2017 12:57
[2017-03-27 14:00] VITALS: BP 84/43; RESP 18
[2017-03-27 20:00] VITALS: BP 91/47; RESP 19
[2017-03-27] MEDS: CLOTRIMAZOLE 1% 45 GM VAG CR VAG SCH (20:28)
[2017-03-28 02:00] VITALS: BP 89/50; RESP 19
[2017-03-28] MEDS: morphine 2 MG INJ IV PRN ×4 (02:05→20:17)
[2017-03-28] MEDS: DIPHENHYDRAMINE 50 MG INJ IV PRN ×4 (02:25→20:17)
[2017-03-28 07:31] VITALS: BP 77/38; RESP 18
[2017-03-28] MEDS: CALCIUM ACETATE 667 MG CAP PO SCH ×3 (07:45→17:35)
[2017-03-28] MEDS: SEVELAMER 800 MG TAB PO SCH ×3 (07:46→17:35)
[2017-03-28] MEDS: CINACALCET 30 MG TAB PO SCH (08:31)
[2017-03-28 09:30] VITALS: BP 93/46; PULSE 90
--- NOTE | 2017-03-28 14:22 | PN ---
Date/Time of Note Date/Time of Note DATE: 03/28/17 TIME: 14:12 Assessment/Plan VTE Prophylaxis VTE Prophylaxis Intervention: other Lines/Catheters IV Catheter Type (from Nrs): Saline Lock Urinary Cath still in place: No Assessment/Plan Assessment/Plan -Abdominal pain, continue morphine for pain and Zofran as needed for nausea. -Left ovarian mass, Dr Nichole, is following in general surgeon consult. No evidence of torsion. Tumor markers not elevated. Diagnostic laparoscopy and possible ovarian cystectomy is recommended. - MRI abdomen/pelvis - r/o ovarian cyst -End-stage renal disease, patient had a last hemodialysis yesterday. Dr. Silverio is following in nephrology consultation. -Secondary hyperparathyroidism of renal origin, s/p partial left thyroid lobectomy, left upper and lower parathyroidectomy in [place] [address] Morales. Per discussion with patient's corn detasseler machine operator in our nephrology colleague patient will undergo surgery as an outpatient. Discussed with Dr. Morales, if there is no urgency patient will follow up with ENT surgeon as an outpatient. - PTH - 1596 -Anemia Further recommendations based on clinical course. Plan of care discussed with Dr. Turner. Subjective 24 Hr Interval Summary Respiratory: no complaints Cardiovascular: no complaints Gastrointestinal: no complaints Genitourinary: no complaints Musculoskeletal: no complaints Exam/Review of Systems Vital Signs Vitals Vital Signs Date Time Temp Pulse Resp B/P Pulse Ox O2 Delivery O2 Flow Rate FiO2 03/28/17 09:30 90 93/46 03/28/17 07:31 98.4 18 99 03/26/17 20:00 Room Air Intake and Output 03/27/17 03/27/17 03/28/17 14:59 22:59 06:59 Intake Total 680 ml Balance 680 ml Exam Constitutional: alert, oriented, well developed Respiratory: clear to auscultation Cardiovascular: regular rate and rhythm Gastrointestinal: non-tender, soft Musculoskeletal: nl extremities to inspection Extremities: normal pulses Results Result Diagram: 03/27/17 0419 03/27/17 0419 Medications Medications Current Medications Morphine Sulfate (morphine) 2 mg Q4H PRN IV pain 7-10 Last administered on 03/28 08:31; Admin Dose 2 MG; Start 03/23/17 at 18:00 Cinacalcet (Sensipar) 90 mg DAILY PO Last administered on 03/28/17 08:31; Admin Dose 90 MG; Start 03/23/17 at 21:00 Acetaminophen (Tylenol Tab) 650 mg Q6H PRN PO PAIN AND OR ELEVATED TEMP; Start 03/23/17 at 23:00 Ondansetron HCl (Zofran Inj) 4 mg Q6H PRN IV NAUSEA AND/OR VOMITING; Start at 23:00 Diphenhydramine HCl (Benadryl) 50 mg Q6H PRN IV itching Last administered on 08:31; Admin Dose 50 MG; Start 03/24/17 at 06:00 Clotrimazole (Clotrim 1% Vaginal Cr) 1 applic HS VAG Last administered on 20:28; Admin Dose 1 APPLIC; Start 03/24/17 at 21:00 Acetaminophen/ Hydrocodone Bitart ([place] (5/325)) 1 tab Q4H PRN NGT PAIN LEVEL 4-6; Start 03/25/17 at 18:00 EDILMA CASIANO Mar 28, 2017 14:22
[2017-03-28 14:25] VITALS: BP 102/51
[2017-03-28 14:49] VITALS: BP 97/51; RESP 17
--- NOTE | 2017-03-28 14:57 | QN ---
Documentation Comment .March 28, 2017 Hospital visit. This patient is 31 years old 1 para 1 who due to total renal failure as well as hypoparathyroidism is under care of nephrology and she is receiving kidney dialysis 3 days a week also being treated for hypoparathyroidism. Apparently she started having left lower abdominal discomfort and pain a few days ago and a gynecological consult was requested after he report of 4.3 cm left ovarian cyst in ultrasound study. The lower abdominal pain was associated with nausea and vomiting, slight elevation of temperature chills and vaginal spotting and dysuria among several other symptoms, At this time patient is under care of principal solutions architect and with consultation of script developer Following the report of small ovarian cyst ; request was sent for gynecological consultation. The laborist saw her 2 days ago and for further studies she requested lab work for tumor markers and pelvic and abdominal ultrasound, The tumor marker were negative however the MRI was not done On exam she is a female able to adequately communicate in [place] language she is mostly bedbound, On examination ; the abdomen is soft, very light tenderness of the lower abdomen , no rebound ,no CVA tenderness, no edema of lower extremity. On pelvic examination; vulva and vagina were normal ,cervix palpated, uterus was top normal size and the there was a left adnexal mass about 3-4 cm ;not very tender. Pelvic examination otherwise was completely normal ;no cervical motion tenderness, no large mass was palpated Laboratory Tests Test 03/28/17 08:30 Urine Test NEGATIVE Current Medications Medications (Trade) Dose Ordered Sig/Twila Route PRN Reason Start Time Stop Time Status Last Admin Dose Admin Sodium Chloride (NS) 250 ml @ 250 mls/hr Q1H STAT IV 03/23/17 07:15 03/23/17 08:14 DC 03/23/17 07:29 Morphine Sulfate (morphine) 4 mg ONCE STAT IV 03/23/17 07:15 03/23/17 07:16 DC 03/23/17 07:28 Diphenhydramine HCl (Benadryl) 25 mg ONCE ONCE IV 03/23/17 09:30 03/23/17 09:59 DC 03/23/17 09:37 Morphine Sulfate 4 mg 4 mg ONCE STAT IV 03/23/17 10:27 03/23/17 10:28 DC 03/23/17 10:32 Sodium Chloride (NS) 1,000 ml @ 80 mls/hr [id number] IV 03/23/17 10:27 03/23/17 17:48 DC 03/23/17 10:40 Ondansetron HCl (Zofran Inj) 4 mg BRIDGE ORDER PRN IV NAUSEA AND/OR VOMITING 03/23/17 10:30 03/23/17 17:48 DC Acetaminophen (Tylenol Tab) 650 mg ER BRIDGE PRN PO MILD PAIN/FEVER 03/23/17 10:30 03/23/17 17:48 DC Diphenhydramine HCl (Benadryl) 25 mg ONCE ONCE IV 03/23/17 13:30 03/23/17 13:31 DC 03/23/17 13:44 Morphine Sulfate (morphine) 2 mg Q4H PRN IV pain 7-10 03/23/17 18:00 03/28/17 14:30 Diphenhydramine HCl (Benadryl) 25 mg Q6H PRN IV itching 03/23/17 18:00 03/24/17 05:20 DC 03/24/17 00:16 Cinacalcet (Sensipar) 90 mg DAILY PO 03/23/17 21:00 03/28/17 08:31 Sevelamer HCl ([place]agel) 2,400 mg WITH MEALS PO 03/24/17 07:35 03/28/17 12:05 Calcium Acetate ([place]) 2,001 mg WITH MEALS PO 03/24/17 07:35 03/28/17 12:05 Acetaminophen (Tylenol Tab) 650 mg Q6H PRN PO PAIN AND OR ELEVATED TEMP 03/23/17 23:00 Ondansetron HCl (Zofran Inj) 4 mg Q6H PRN IV NAUSEA AND/OR VOMITING 03/23/17 23:00 Diphenhydramine HCl (Benadryl) 50 mg Q6H PRN IV itching 03/24/17 06:00 03/28/17 14:30 Influenza Virus Vaccine (Fluzone) 0.5 ml ONCE ONCE IM* 03/25/17 09:00 03/25/17 09:01 DC Clotrimazole (Clotrim 1% Vaginal Cr) 1 applic HS VAG 03/24/17 21:00 03/27/17 20:28 Acetaminophen/ Hydrocodone Bitart ([place] (5/325)) 1 tab Q4H PRN NGT PAIN LEVEL 4-6 03/25/17 18:00 I asked the nurse with Dr. Worthington to please order a pelvic and abdominal MRI . We will review her case for possible laparoscopy after the MRI is ready. ITZEL ANNA MD Mar 28, 2017 14:57
[2017-03-28 20:06] VITALS: BP 110/44; RESP 18
[2017-03-28] MEDS: CLOTRIMAZOLE 1% 45 GM VAG CR VAG SCH (20:22)
[2017-03-29] VITALS (10 sets, daily range): BP systolic 86–115; BP diastolic 35–62; PULSE 92–108; RESP 18–20
[2017-03-29] MEDS: morphine 2 MG INJ IV PRN ×4 (02:23→18:52)
[2017-03-29] MEDS: DIPHENHYDRAMINE 50 MG INJ IV PRN ×4 (02:23→20:40)
[2017-03-29 06:13] LABS: BASOPHILS % 0.4 % (0.0-2.0); EOSINOPHILS # 0.2 10^3/ul (0.0-0.5); EOSINOPHILS % 4.1 % (0.0-7.0); HEMATOCRIT 27.4 % (37.0-47.0); HEMOGLOBIN 9.1 g/dl (12.0-16.0); LYMPHOCYTES # 1.5 10^3/ul (0.8-2.9); MEAN CORPUSCULAR HEMOGLOBIN 33.7 pg (29.0-33.0); MEAN CORPUSCULAR HGB CONC 33.2 g/dl (32.0-37.0); MEAN CORPUSCULAR VOLUME 101.5 fl (82.0-101.0); MEAN PLATELET VOLUME 10.5 fl (7.4-10.4); MONOCYTE # 0.5 10^3/ul (0.3-0.9); MONOCYTES % 8.9 % (0.0-11.0); NEUTROPHIL # 2.9 10^3/ul (1.6-7.5); NEUTROPHILS % 57.4 % (39.0-77.0); PLATELET COUNT 151 10^3/UL (140-415); RED CELL DISTRIBUTION WIDTH 14.8 % (11.5-14.5); WHITE BLOOD COUNT 5.1 10^3/ul (4.8-10.8)
[2017-03-29 06:54] LABS: CALCIUM 9.7 mg/dl (8.4-10.2); CREATININE 11.46 mg/dl (0.44-1.00)
[2017-03-29 07:05] LABS: POTASSIUM 6.4 mmol/L (3.5-5.1)
[2017-03-29] MEDS: CINACALCET 30 MG TAB PO SCH (08:31)
[2017-03-29] MEDS: CALCIUM ACETATE 667 MG CAP PO SCH ×3 (08:32→17:43)
[2017-03-29] MEDS: SEVELAMER 800 MG TAB PO SCH ×3 (08:33→17:43)
--- NOTE | 2017-03-29 14:38 | RADRPT ---
Echocardiogram Report Patient Name: DEEPTHI ACEVES Gender: Female Date: 1985 Study Date: 29-Mar-2017 Job Specification Writer: Kayode Laughlin [facility] Location: 2244 Ref. Physician: EDILMA CASIANO Quality: Good Procedures: Transthoracic echocardiogram with complete 2D, M-Mode, and doppler examination. Indications: Pre-op. 2D/M Mode Doppler Measurement Value Normal Ranges Measurement Value Normal Ranges LVIDd 2D 5.0 3.5 - 5.6 cm BRYAN Vmax 1.9 cm2 LVIDs 2D 3.0 2.1 - 4.1 cm BRYAN VTI 1.9 cm2 LVPWd 2D 0.7 0.6 - 1.1 cm AV Mean Adarsh 1.4 m/sec IVSd 2D 0.7 0.6 - 1.1 cm AV Mean PG 9.0 mmHg AoR Diam 2D 2.4 2.0 - 3.7 cm AV Peak Adarsh 2.1 m/sec EDV 2D 120.8 cm3 AV Peak PG 16.7 mmHg ESV 2D 27.4 cm3 AV VTI 36.7 cm LA Dimen 2D 3.3 2.3 - 4.0 cm LVOT Mean Adarsh 1.0 m/sec LVOT Diam 1.9 cm LVOT Mean PG 4.5 mmHg LVOT Peak Adarsh 1.5 m/sec LVOT Peak PG 8.9 mmHg LVOT VTI 30.1 cm MV E Peak Adarsh 1.1 m/sec MV A Peak Adarsh 1.0 m/sec MV E/A 1.1 MV Decel Time 172 msec MV Decel [place] 6 MV E/A 1.1 TR Peak Adarsh 3.2 m/sec TR Peak PG 40.4 mmHg RVSP 43.0 mmHg Findings Left Ventricle: Lower limits of normal systolic function. Normal left ventricular cavity size. Normal left ventricular wall thickness. Ejection fraction is visually estimated at 5055 %. Tissue Doppler/Mitral Doppler indices are within normal limits. Right Ventricle: Normal right ventricular size. Normal right ventricular systolic function. Left Atrium: The left atrium is normal in size. Right Atrium: The right atrium is normal in size. Mitral Valve: Normal appearance and function of the mitral valve with trace physiologic regurgitation. Aortic Valve: Mild aortic stenosis. Aortic valve Max velocity 2.11 m/sec. Max PG 17.80 mmHg. Mean PG 9.00 mmHg. Trace aortic valve regurgitation. Tricuspid Valve: Normal appearance of the tricuspid valve. Estimated peak PA systolic pressure 43 mmHg. There is mild tricuspid regurgitation. Pulmonic Valve: Normal pulmonic valve appearance. Pericardium: Normal pericardium with no significant pericardial effusion. Aorta: Normal aortic root. IVC: Normal size and normal respiratory collapse consistent with normal right atrial pressure. Conclusions 1.Lower limits of normal systolic function. Normal left ventricular cavity size. Normal left ventricular wall thickness. Ejection fraction is visually estimated at 50-55 %. Tissue Doppler/Mitral Doppler indices are within normal limits. 2.Normal appearance and function of the mitral valve with trace physiologic regurgitation. 3.Mild aortic stenosis. Mean PG 9.00 mmHg. Trace aortic valve regurgitation. 4.Normal appearance of the tricuspid valve. Estimated peak PA systolic pressure 43 mmHg. There is mild tricuspid regurgitation. Electronically Signed By: Gabe Barrera 29-Mar-2017 14:37:37 -0800 Patient Name: DEEPTHI ACEVES Study Date: 29-Mar-2017 [id number]
--- NOTE | 2017-03-29 15:53 | RADRPT ---
PROCEDURE: XR knee CLINICAL INDICATION: Left knee pain TECHNIQUE: Three views of the left knee COMPARISON: None available FINDINGS: The soft tissues are unremarkable. Osseous alignment is within normal limits. No evidence of acute fracture or dislocation. Joint spaces are within normal limits. Heterogeneous abnormalities of the patella likely are cystic. Diffuse heterogeneous bone marrow with indistinctness of the trabecula and areas of sclerosis. Small sclerotic focus in the inferior montero la and in the medial femoral condyle could be bone islands. IMPRESSION: 1. No evidence of acute fracture. 2. Abnormal bone marrow most likely is secondary to renal osteodystrophy; patella cystic abnormaliti es may be Brown tumors. RPTAT: TT Physician Christina Date Time Electronically viewed and signed by Physician Christina on 03/29/2017 15:53 SANAM/
--- NOTE | 2017-03-29 17:04 | PN ---
Date/Time of Note Date/Time of Note DATE: 03/29/17 TIME: 17:00 Assessment/Plan VTE Prophylaxis VTE Prophylaxis Intervention: SCD's Lines/Catheters IV [facility]ter Type [facility]from [facility]): Saline Lock Urinary Cath still in place: No Assessment/Plan Chief Complaint/Hosp Course Patient is taking to nuclear medicine for MRI of the abdomen and pelvis. Assessment/Plan -Abdominal pain, continue morphine for pain and Zofran as needed for nausea. -Left ovarian mass, Dr Nichole, is following in supervisor public message service consult. No evidence of torsion. Tumor markers not elevated. Diagnostic laparoscopy and possible ovarian cystectomy is recommended. -End-stage renal disease, patient had a last hemodialysis yesterday. Dr. Silverio is following in nephrology consultation. -Secondary hyperparathyroidism of renal origin, s/p partial left thyroid lobectomy, left upper and lower parathyroidectomy in November [address] Morales. Per discussion with patient's smart energy specialist in our nephrology colleague patient will undergo surgery as an outpatient. Discussed with Dr. Morales, if there is no urgency patient will follow up with ENT surgeon as an outpatient. -Anemia Further recommendations based on clinical course. Plan of care discussed with Dr. Turner. Problems: Exam/Review of Systems Vital Signs Vitals Vital Signs Date Time Temp Pulse Resp B/P Pulse Ox O2 Delivery O2 Flow Rate FiO2 03/29/17 14:00 98.3 105 18 89/35 99 03/26/17 20:00 Room Air Intake and Output 03/28/17 03/28/17 03/29/17 14:59 22:59 06:59 Intake Total 350 ml 100 ml Balance 350 ml 100 ml Results Result Diagram: 03/29/17 0525 03/29/17 0525 Results 24 hrs Laboratory Tests Test 03/29/17 05:25 White Blood Count 5.1 Red Blood Count 2.70 L Hemoglobin 9.1 L Hematocrit 27.4 L Mean Corpuscular Volume 101.5 H Mean Corpuscular Hemoglobin 33.7 H Mean Corpuscular Hemoglobin Concent 33.2 Red Cell Distribution Width 14.8 H Platelet Count 151 Mean Platelet Volume 10.5 H Neutrophils % 57.4 Lymphocytes % 29.0 Monocytes % 8.9 Eosinophils % 4.1 Basophils % 0.4 Nucleated Red Blood Cells % 0.0 Neutrophils # 2.9 Lymphocytes # 1.5 Monocytes # 0.5 Eosinophils # 0.2 Basophils # 0.0 Nucleated Red Blood Cells # 0.0 Sodium Level 136 Potassium Level 6.4 *H Chloride Level 92 L Carbon Dioxide Level 24 Anion Gap 26 H Blood Urea Nitrogen 108 H Creatinine 11.46 H Glucose Level 72 Calcium Level 9.7 Medications Medications Current Medications Morphine Sulfate (morphine) 2 mg Q4H PRN IV pain 7-10 Last administered on 03/29 12:13; Admin Dose 2 MG; Start 03/23/17 at 18:00 Cinacalcet (Sensipar) 90 mg DAILY PO Last administered on 03/29/17 08:31; Admin Dose 90 MG; Start 03/23/17 at 21:00 Acetaminophen (Tylenol Tab) 650 mg Q6H PRN PO PAIN AND OR ELEVATED TEMP; Start 03/23/17 at 23:00 Ondansetron HCl (Zofran Inj) 4 mg Q6H PRN IV NAUSEA AND/OR VOMITING; Start at 23:00 Diphenhydramine HCl (Benadryl) 50 mg Q6H PRN IV itching Last administered on 14:43; Admin Dose 50 MG; Start 03/24/17 at 06:00 Clotrimazole (Clotrim 1% Vaginal Cr) 1 applic HS VAG Last administered on 20:22; Admin Dose 1 APPLIC; Start 03/24/17 at 21:00 Acetaminophen/ Hydrocodone Bitart ([place] (5/325)) 1 tab Q4H PRN NGT PAIN LEVEL 4-6; Start 03/25/17 at 18:00 ERICK ROBERTSON Mar 29, 2017 17:04
--- NOTE | 2017-03-29 17:29 | RADRPT ---
PROCEDURE: MR Abdomen without contrast CLINICAL INDICATION: Abdominal pain. Renal failure. TECHNIQUE: MRI of the abdomen without contrast was performed using multiple sequences. COMPARISON: CT 12/30/2016. FINDINGS: Liver demonstrates diffuse fatty infiltration without a focal lesion. Normal appearance of the gallbladder. No intra- or extra-hepatic biliary dilatation. Mildly enlarged spleen measuring 12.3 cm. Normal appearance of the pancreas and adrenal glands. Atrophic kidneys bilaterally. Multiple bilateral renal cysts. No hydronephrosis. Visualized bowel is normal in caliber without mural thickening. No free fluid or fluid collection. Partially visualized T2 bright lesion in the right iliac bone. Lower thorax shows no pleural effusion or focal abnormality. IMPRESSION: 1. Diffuse fatty infiltration of the liver. 2. Atrophic kidneys with cysts. 3. Partially visualized T2 bright lesion in the right iliac bone may represent a bone cyst. RPTAT:AAJJ Physician Paul Date Time Electronically viewed and signed by Physician Paul on 03/29/2017 17:28 /
--- NOTE | 2017-03-29 17:55 | RADRPT ---
PROCEDURE: MR Pelvis without contrast. CLINICAL INDICATION: Pelvic pain. Ovarian cyst. Renal failure. TECHNIQUE: MRI of the pelvis was performed with multiple sequences without contrast. COMPARISON: Ultrasound 03/26/[address] 12/30/2016 FINDINGS: Uterus measures 4.8 x 3.0 x 3.7 cm. Normal appearance of the uterus and the junctional zone. Normal appearance of the ovaries. Right adnexal cystic lesion appears to originate from the right ov tawanna measuring 4.7 x 3.4 x 2.7 cm with a peripheral nodular T2 dark area. No lymphadenopathy. T2 bright and slightly T1 bright lesion in the right iliac bone with restricted diffusion and multip le fine septations with no signal drop out on out phase imaging measuring 4.1 x 2.2 x 4.6 cm, previo usly measuring 3.8 x 1.9 [address] 12/30/2016. Similar T2 bright lesions in bilateral proximal femurs with restricted diffusion measuring 2.6 x 1.6 cm on the right, previously 1.6 x 1.1 cm and 2 .8 x 0.9 cm on the left, previously 1.8 x 0.3 cm. IMPRESSION: 1. Right ovarian cystic lesion with peripheral nodularity may represent a low grade neoplasm such as cystadenocarcinoma. 2. Multiple T2 bright osseous lesions with restricted diffusion have increased in size compared to C T dated 12/30/2016. These are concerning for malignancy. Recommend biopsy of the largest lesion in t he right iliac bone as the patient cannot receive intravenous contrast secondary to renal failure. RPTAT:AAJJ Physician aPul Date Time Electronically viewed and signed by Physician Paul on 03/29/2017 17:55 /
[2017-03-29] MEDS: ACETAMINOPHEN 325 MG TAB PO PRN (18:54)
[2017-03-29] MEDS: CLOTRIMAZOLE 1% 45 GM VAG CR VAG SCH (20:40)
[2017-03-30] VITALS (13 sets, daily range): BP systolic 82–105; BP diastolic 41–54; PULSE 96–109; RESP 17–19
[2017-03-30] MEDS: morphine 2 MG INJ IV PRN ×4 (06:42→22:17)
[2017-03-30] MEDS: DIPHENHYDRAMINE 50 MG INJ IV PRN ×3 (06:42→20:29)
[2017-03-30 08:02] LABS: CALCIUM 9.7 mg/dl (8.4-10.2); CREATININE 8.93 mg/dl (0.44-1.00)
[2017-03-30 08:15] LABS: POTASSIUM 6.5 mmol/L (3.5-5.1)
[2017-03-30] MEDS: CINACALCET 30 MG TAB PO SCH (09:17)
[2017-03-30] MEDS: CALCIUM ACETATE 667 MG CAP PO SCH ×3 (09:18→18:03)
[2017-03-30] MEDS: SEVELAMER 800 MG TAB PO SCH ×3 (09:18→18:03)
--- NOTE | 2017-03-30 12:46 | CONS ---
Date/Time of Note Date/Time of Note DATE: 03/30/17 TIME: 12:45 Assessment/Plan Assessment/Plan Additional Assessment/Plan Additional Assessment/Plan 31 yo Female with 1) Abdominal pain 2) Left ovarian mass 3) End-stage renal disease 4) MBD Secondary hyperparathyroidism , s/p partial left thyroid lobectomy, left upper and lower parathyroidectomy in [place] [address] Morales. 5) Anemia Chronic Disease 6) Hyperkalemia HD MWF S/p HD yesterday Will order HD today Cont Current Rx and plan Epogen with HD today Consultation Date/Type/Reason Admit Date/Time Mar 23, 2017 at 10:28 Type of Consultation: Renal Referring Provider: LUANNE WALTER MD 24 HR Interval Summary Free Text/Dictation pending HD Constitutional: No requiring O2 Exam/Review of Systems Vital Signs Vitals Vital Signs Date Time Temp Pulse Resp B/P Pulse Ox O2 Delivery O2 Flow Rate FiO2 03/30/17 11:40 96 18 92/50 Room Air 03/30/17 08:21 98.6 98 Intake and Output 03/29/17 03/29/17 03/30/17 14:59 22:59 06:59 Intake Total 400 ml 240 ml 240 ml Output Total 2900 ml Balance -2500 ml 240 ml 240 ml Exam Constitutional: No distress ENMT: mucosa pink and moist Neck: No jvd Respiratory: clear to auscultation Cardiovascular: regular rate and rhythm, No edema Gastrointestinal: soft Musculoskeletal: nl extremities to inspection Extremities: other (LUE AVF) 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: VICE PRESIDENT RESEARCH II-XII intact, nl mental status Skin: No diaphoresis Results Result Diagram: 03/29/17 0525 03/30/17 0629 Results 24 hrs Laboratory Tests Test 03/30/17 06:29 Sodium Level 138 Potassium Level 6.5 *H Chloride Level 99 Carbon Dioxide Level 24 Anion Gap 22 H Blood Urea Nitrogen 74 #H Creatinine 8.93 #H Glucose Level 67 L Calcium Level 9.7 Medications Medications Current Medications Morphine Sulfate (morphine) 2 mg Q4H PRN IV pain 7-10 Last administered on 03/30 06:42; Admin Dose 2 MG; Start 03/23/17 at 18:00 Cinacalcet (Sensipar) 90 mg DAILY PO Last administered on 03/30/17 09:17; Admin Dose 90 MG; Start 03/23/17 at 21:00 Acetaminophen (Tylenol Tab) 650 mg Q6H PRN PO PAIN AND OR ELEVATED TEMP Last administered on 03/29/17 18:54; Admin Dose 650 MG; Start 03/23/17 at 23:00 Ondansetron HCl (Zofran Inj) 4 mg Q6H PRN IV NAUSEA AND/OR VOMITING; Start at 23:00 Diphenhydramine HCl (Benadryl) 50 mg Q6H PRN IV itching Last administered on 06:42; Admin Dose 50 MG; Start 03/24/17 at 06:00 Clotrimazole (Clotrim 1% Vaginal Cr) 1 applic HS VAG Last administered on 20:40; Admin Dose 1 APPLIC; Start 03/24/17 at 21:00 Acetaminophen/ Hydrocodone Bitart ([place] (5/325)) 1 tab Q4H PRN NGT PAIN LEVEL 4-6; Start 03/25/17 at 18:00 JUANJO TATUM MD Mar 30, 2017 12:46
[2017-03-30] MEDS ORDERED: EPOETIN 4000 UNITS/1 ML INJ (ESRD) IV ONE (14:30)
[2017-03-30] MEDS ORDERED: ALBUMIN HUMAN 25% 100 ML IV ONE (15:00)
--- NOTE | 2017-03-30 15:43 | PN ---
Date/Time of Note Date/Time of Note DATE: 03/30/17 TIME: 15:28 Assessment/Plan VTE Prophylaxis VTE Prophylaxis Intervention: SCD's Lines/Catheters [facility]from [facility] Saline Lock Urinary Cath still in place: No Assessment/Plan Chief Complaint/Hosp Course Patient is undergoing hemodialysis. Assessment/Plan -Multiple osseous lesions per MRI, Dr. Jc is asked to see patient in oncology consultation. -Abdominal pain, continue morphine for pain and Zofran as needed for nausea. -Right ovarian cystic lesion per MRI, No evidence of torsion. Tumor markers not elevated. Diagnostic laparoscopy and possible ovarian cystectomy is recommended. FLEET SERVICE MANAGER is following. -End-stage renal disease, patient had a last hemodialysis yesterday. Dr. Silverio is following in nephrology consultation. -Secondary hyperparathyroidism of renal origin, s/p partial left thyroid lobectomy, left upper and lower parathyroidectomy in November [address] Morales. Per discussion with patient's lower school spanish teacher in our nephrology colleague patient will undergo surgery as an outpatient. Discussed with Dr. Morales, if there is no urgency patient will follow up with ENT surgeon as an outpatient. -Anemia Further recommendations based on clinical course. Plan of care discussed with Dr. Turner. Problems: Exam/Review of Systems Vital Signs Vitals Vital Signs Date Time Temp Pulse Resp B/P Pulse Ox O2 Delivery O2 Flow Rate FiO2 03/30/17 14:09 98.4 98 18 94/46 98 03/30/17 11:40 Room Air Intake and Output 03/29/17 03/29/17 03/30/17 15:00 23:00 07:00 Intake Total 400 ml 240 ml 240 ml Output Total 2900 ml Balance -2500 ml 240 ml 240 ml Exam Constitutional: alert, oriented Respiratory: normal air movement Cardiovascular: nl pulses Gastrointestinal: soft, tender Musculoskeletal: nl extremities to inspection Extremities: normal pulses, other (Left upper extremity fistula) Results Result Diagram: 03/29/17 0525 03/30/17 0629 Results 24 hrs Laboratory Tests Test 03/30/17 06:29 Sodium Level 138 Potassium Level 6.5 *H Chloride Level 99 Carbon Dioxide Level 24 Anion Gap 22 H Blood Urea Nitrogen 74 #H Creatinine 8.93 #H Glucose Level 67 L Calcium Level 9.7 Medications Medications Current Medications Morphine Sulfate (morphine) 2 mg Q4H PRN IV pain 7-10 Last administered on 03/30 12:54; Admin Dose 2 MG; Start 03/23/17 at 18:00 Cinacalcet (Sensipar) 90 mg DAILY PO Last administered on 03/30/17 09:17; Admin Dose 90 MG; Start 03/23/17 at 21:00 Acetaminophen (Tylenol Tab) 650 mg Q6H PRN PO PAIN AND OR ELEVATED TEMP Last administered on 03/29/17 18:54; Admin Dose 650 MG; Start 03/23/17 at 23:00 Ondansetron HCl (Zofran Inj) 4 mg Q6H PRN IV NAUSEA AND/OR VOMITING; Start at 23:00 Diphenhydramine HCl (Benadryl) 50 mg Q6H PRN IV itching Last administered on 13:29; Admin Dose 50 MG; Start 03/24/17 at 06:00 Clotrimazole (Clotrim 1% Vaginal Cr) 1 applic HS VAG Last administered on 20:40; Admin Dose 1 APPLIC; Start 03/24/17 at 21:00 Acetaminophen/ Hydrocodone Bitart 1 tab 1 tab Q4H PRN NGT PAIN LEVEL 4-6; Start 03/25/17 at 18:00 Albumin Human (Albumin Human 25%) 100 ml @ 100 mls/hr ONCE ONCE IV Last administered on 03/30/17 15:18; Admin Dose 100 MLS/HR; Start 03/30/17 at 15:00 ; Stop 03/30/17 at 15:59 ERICK ROBERTSON Mar 30, 2017 15:39
[2017-03-30 17:00] LABS: INR 1.05; PROTIME 13.8 Sec (11.9-14.9); PT RATIO 1.1
[2017-03-30 17:01] LABS: PARTIAL THROMBOPLASTIN TIME 34.9 Sec (25.0-35.0); THROMBIN TIME 13.1 SEC (13.8-19.1)
[2017-03-30] MEDS: CLOTRIMAZOLE 1% 45 GM VAG CR VAG SCH (20:30)
[2017-03-31 02:56] VITALS: BP 104/56; PULSE 89; RESP 18
[2017-03-31] MEDS: DIPHENHYDRAMINE 50 MG INJ IV PRN ×4 (02:59→22:10)
[2017-03-31] MEDS: morphine 2 MG INJ IV PRN ×4 (05:15→20:10)
[2017-03-31 07:56] VITALS: BP 87/48; RESP 20
[2017-03-31] MEDS: CINACALCET 30 MG TAB PO SCH (09:20)
[2017-03-31] MEDS: CALCIUM ACETATE 667 MG CAP PO SCH ×3 (09:21→17:37)
[2017-03-31] MEDS: SEVELAMER 800 MG TAB PO SCH ×3 (09:23→17:36)
[2017-03-31 10:17] LABS: CALCIUM 10.6 mg/dl (8.4-10.2); CREATININE 7.23 mg/dl (0.44-1.00); POTASSIUM 5.2 mmol/L (3.5-5.1)
--- NOTE | 2017-03-31 12:21 | CONS ---
Date/Time of Note Date/Time of Note DATE: 03/31/17 TIME: 12:04 Assessment/Plan Assessment/Plan Chief Complaint/Hosp Course #-Multiple osseous lesions seen on Pelvic MRI -will check SPEP and serum RIANA to evaluate for underlying multiple myeloma -pt to have IR guided bx done of largest bony lesion. -recommendations will be based on the results of these tests #Right ovarian cystic lesion per MRI, -Tumor markers not elevated. -pt has been evaluated by PHARMACY DELIVERY DRIVER -Diagnostic laparoscopy and possible ovarian cystectomy is recommended. . #End-stage renal disease, -patient had a last hemodialysis yesterday. -continue HD per nephrology #Secondary hyperparathyroidism of renal origin, -s/p partial left thyroid lobectomy, left upper and lower parathyroidectomy in November [address] Morales. #Anemia -likely 2/2 to underlying CKD -will check epo level and retic -also check iron levels, vitamin b12 , folate -need to rule out hemolysis Problems: Consultation Date/Type/Reason Admit Date/Time Mar 23, 2017 at 10:28 Date of Consultation: Mar 31, 2017 Type of Consultation: Oncology Reason for Consultation lytic lesion Referring Provider: LUANNE WALTER MD Hx of Present Illness 31-year-old female with a history of history of kidney failure, on hemodialysis who presented to [facility] ED on 03/23 with lower abdominal pain that she developed last night. Patient has a history of ovarian cyst that has been serially monitored. Patient also has a history of secondary hyperparathyroidism of renal origin, s/p partial left thyroid lobectomy, left upper and lower parathyroidectomy in November [address] Morales. Since admission pt has undergone an abdominal MRI which revealed a partially visualized T2 bright lesion in the right iliac bone which may represent a bone cyst. A Pelvic MRI was then done which revealed a right ovarian cystic lesion with peripheral nodularity may represent a low grade neoplasm such as cystadenocarcinoma. Also seen were multiple T2 bright osseous lesions with restricted diffusion have increased in size compared to CT dated 12/30/2016. These are concerning for malignancy. Pt has been scheduled for biopsy of the right iliac bone to evaluate for underlying malignancy. Past Medical History ESRD on HD HTN hx of secondary hyperparathyroidism due to renal disease s/p partial left thyroid lobectomy, left upper and lower parathyroidectomy in November [address] Calix. Medical History: hypertension, renal disease Past Surgical History Past Surgical Hx: other Social History Alcohol Use: none Smoking Status: Never smoker Drug Use: none Exam/Review of Systems Vital Signs Vitals Vital Signs Date Time Temp Pulse Resp B/P Pulse Ox O2 Delivery O2 Flow Rate FiO2 03/31/17 07:56 98.3 94 20 87/48 96 03/31/17 02:56 Room Air Intake and Output 03/30/17 03/30/17 03/31/17 15:00 23:00 07:00 Intake Total 740 ml 200 ml Output Total 3500 ml Balance -2760 ml 200 ml Exam Constitutional: alert, oriented Psych: no complaints Head: normocephalic Eyes: nl conjunctiva ENMT: nl external ears & nose Neck: non-tender, supple Respiratory: clear to auscultation Cardiovascular: nl pulses, regular rate and rhythm Gastrointestinal: soft Musculoskeletal: nl extremities to inspection, nl gait and stance Extremities: normal pulses Results Result Diagram: 03/30/17 1609 03/31/17 0928 Results 24 hrs Laboratory Tests Test 03/30/17 16:09 03/31/17 09:28 Platelet Count 198 Prothrombin Time 13.8 Prothrombin Time Ratio 1.1 INR International Normalized Ratio 1.05 Activated Partial Thromboplast Time 34.9 Thrombin Time 13.1 L Sodium Level 140 Potassium Level 5.2 H Chloride Level 96 L Carbon Dioxide Level 28 Anion Gap 21 H Blood Urea Nitrogen 62 H Creatinine 7.23 H Glucose Level 68 L Calcium Level 10.6 H Medications Medications Current Medications Morphine Sulfate (morphine) 2 mg Q4H PRN IV pain 7-10 Last administered on 03/31 09:23; Admin Dose 2 MG; Start 03/23/17 at 18:00 Cinacalcet (Sensipar) 90 mg DAILY PO Last administered on 03/31/17 09:20; Admin Dose 90 MG; Start 03/23/17 at 21:00 Acetaminophen (Tylenol Tab) 650 mg Q6H PRN PO PAIN AND OR ELEVATED TEMP Last administered on 03/29/17 18:54; Admin Dose 650 MG; Start 03/23/17 at 23:00 Ondansetron HCl (Zofran Inj) 4 mg Q6H PRN IV NAUSEA AND/OR VOMITING; Start at 23:00 Diphenhydramine HCl (Benadryl) 50 mg Q6H PRN IV itching Last administered on 10:04; Admin Dose 50 MG; Start 03/24/17 at 06:00 Clotrimazole (Clotrim 1% Vaginal Cr) 1 applic HS VAG Last administered on 20:30; Admin Dose 1 APPLIC; Start 03/24/17 at 21:00 Acetaminophen/ Hydrocodone Bitart ([place] (5/325)) 1 tab Q4H PRN NGT PAIN LEVEL 4-6; Start 03/25/17 at 18:00 MICHELLE MOJICA M.D. Mar 31, 2017 12:14
[2017-03-31 13:47] LABS: RETICULOCYTE COUNT % 1.1 % (0.5-1.5)
[2017-03-31 14:03] LABS: IRON 121 ug/dl (35-150)
[2017-03-31 14:12] LABS: TOTAL IRON BINDING CAPACITY 202 ug/dl (241-421)
--- NOTE | 2017-03-31 14:33 | CONS ---
Date/Time of Note Date/Time of Note DATE: 03/31/17 TIME: 14:32 Assessment/Plan Assessment/Plan Additional Assessment/Plan 31 yo Female with 1) Abdominal pain 2) Left ovarian mass 3) End-stage renal disease 4) MBD Secondary hyperparathyroidism , s/p partial left thyroid lobectomy, left upper and lower parathyroidectomy in November [address] Morales. 5) Anemia Chronic Disease 6) Hyperkalemia HD MWF S/p HD yesterday Will order HD tomorrow am Cont Current Rx and plan Kayexalate x 1 today Low K renal diet. Consultation Date/Type/Reason Admit Date/Time Mar 23, 2017 at 10:28 Type of Consultation: Renal Referring Provider: LUANNE WALTER MD 24 HR Interval Summary Free Text/Dictation S/p HD yesterday. Possible plan for IR tomorrow. Constitutional: No requiring O2 Exam/Review of Systems Vital Signs Vitals Vital Signs Date Time Temp Pulse Resp B/P Pulse Ox O2 Delivery O2 Flow Rate FiO2 03/31/17 07:56 98.3 94 20 87/48 96 03/31/17 02:56 Room Air Intake and Output 03/30/17 03/30/17 03/31/17 14:59 22:59 06:59 Intake Total 740 ml 200 ml Output Total 3500 ml Balance -2760 ml 200 ml Exam Constitutional: alert, No distress ENMT: mucosa pink and moist Neck: No jvd Respiratory: clear to auscultation Cardiovascular: No edema Gastrointestinal: non-tender, soft Extremities: No edema 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: SEQUENCING MACHINE OPERATOR II-XII intact, nl mental status Skin: No diaphoresis Results Result Diagram: 03/30/17 1609 03/31/17 0928 Results 24 hrs Laboratory Tests Test 03/30/17 16:09 03/31/17 09:28 03/31/17 13:27 Platelet Count 198 Prothrombin Time 13.8 Prothrombin Time Ratio 1.1 INR International Normalized Ratio 1.05 Activated Partial Thromboplast Time 34.9 Thrombin Time 13.1 L Sodium Level 140 Potassium Level 5.2 H Chloride Level 96 L Carbon Dioxide Level 28 Anion Gap 21 H Blood Urea Nitrogen 62 H Creatinine 7.23 H Glucose Level 68 L Calcium Level 10.6 H Absolute Reticulocyte Count 0.030 Percent Reticulocyte Count 1.1 Iron Level 121 Total Iron Binding Capacity 202 L Percent Iron Saturation 60 H Ferritin Pending Lactate Dehydrogenase 329 Vitamin B12 Level Pending Folate Pending Medications Medications Current Medications Morphine Sulfate (morphine) 2 mg Q4H PRN IV pain 7-10 Last administered on 03/31 09:23; Admin Dose 2 MG; Start 03/23/17 at 18:00 Cinacalcet (Sensipar) 90 mg DAILY PO Last administered on 03/31/17 09:20; Admin Dose 90 MG; Start 03/23/17 at 21:00 Acetaminophen (Tylenol Tab) 650 mg Q6H PRN PO PAIN AND OR ELEVATED TEMP Last administered on 03/29/17 18:54; Admin Dose 650 MG; Start 03/23/17 at 23:00 Ondansetron HCl (Zofran Inj) 4 mg Q6H PRN IV NAUSEA AND/OR VOMITING; Start at 23:00 Diphenhydramine HCl (Benadryl) 50 mg Q6H PRN IV itching Last administered on 10:04; Admin Dose 50 MG; Start 03/24/17 at 06:00 Clotrimazole (Clotrim 1% Vaginal Cr) 1 applic HS VAG Last administered on 20:30; Admin Dose 1 APPLIC; Start 03/24/17 at 21:00 Acetaminophen/ Hydrocodone Bitart ([place] (5/325)) 1 tab Q4H PRN NGT PAIN LEVEL 4-6; Start 03/25/17 at 18:00 JUANJO TATUM MD Mar 31, 2017 14:33
[2017-03-31] MEDS ORDERED: NA POLYST SULFON 15 GM/60 ML BTL PO ONE (15:00)
[2017-03-31 15:10] LABS: FOLATE 8.6 ng/ml (2.8-20.0)
[2017-03-31 15:55] VITALS: BP 91/51; RESP 16
--- NOTE | 2017-03-31 17:46 | PN ---
Date/Time of Note Date/Time of Note DATE: 03/31/17 TIME: 17:44 Assessment/Plan VTE Prophylaxis VTE Prophylaxis Intervention: SCD's Lines/Catheters [facility] Saline Lock Urinary Cath still in place: No Assessment/Plan Chief Complaint/Hosp Course Hyperkalemia, status post Kayexalate pain is under control, pending biopsy by radiology tomorrow. Assessment/Plan -Multiple T12 osseous lesions per MRI, Dr. Jc is following in oncology consultation. -Abdominal pain, continue morphine for pain and Zofran as needed for nausea. -Right ovarian cystic lesion per MRI, No evidence of torsion. Tumor markers not elevated. Diagnostic laparoscopy and possible ovarian cystectomy is recommended. HOOP ROLLS OPERATOR is following. -End-stage renal disease, patient had a last hemodialysis yesterday. Dr. Silverio is following in nephrology consultation. -Secondary hyperparathyroidism of renal origin, s/p partial left thyroid lobectomy, left upper and lower parathyroidectomy in November [address] Morales. Per discussion with patient's electric motor winders assembler in our nephrology colleague patient will undergo surgery as an outpatient. Discussed with Dr. Morales, if there is no urgency patient will follow up with ENT surgeon as an outpatient. -Anemia Further recommendations based on clinical course. Plan of care discussed with Dr. Turner. Problems: Exam/Review of Systems Vital Signs Vitals Vital Signs Date Time Temp Pulse Resp B/P Pulse Ox O2 Delivery O2 Flow Rate FiO2 03/31/17 15:55 98.9 82 16 91/51 98 03/31/17 02:56 Room Air Intake and Output 03/30/17 03/30/17 03/31/17 14:59 22:59 06:59 Intake Total 740 ml 200 ml Output Total 3500 ml Balance -2760 ml 200 ml Exam Constitutional: alert, oriented Respiratory: normal air movement Cardiovascular: nl pulses Gastrointestinal: soft, tender Musculoskeletal: nl extremities to inspection Extremities: normal pulses, other (Left upper extremity fistula) Results Result Diagram: 03/30/17 1609 03/31/17 0928 Results 24 hrs Laboratory Tests Test 03/31/17 09:28 03/31/17 13:27 Sodium Level 140 Potassium Level 5.2 H Chloride Level 96 L Carbon Dioxide Level 28 Anion Gap 21 H Blood Urea Nitrogen 62 H Creatinine 7.23 H Glucose Level 68 L Calcium Level 10.6 H Absolute Reticulocyte Count 0.030 Percent Reticulocyte Count 1.1 Iron Level 121 Total Iron Binding Capacity 202 L Percent Iron Saturation 60 H Ferritin 901.0 H Lactate Dehydrogenase 329 Vitamin B12 Level 556 Folate 8.6 Medications Medications Current Medications Morphine Sulfate (morphine) 2 mg Q4H PRN IV pain 7-10 Last administered on 03/31 15:26; Admin Dose 2 MG; Start 03/23/17 at 18:00 Cinacalcet (Sensipar) 90 mg DAILY PO Last administered on 03/31/17 09:20; Admin Dose 90 MG; Start 03/23/17 at 21:00 Acetaminophen (Tylenol Tab) 650 mg Q6H PRN PO PAIN AND OR ELEVATED TEMP Last administered on 03/29/17 18:54; Admin Dose 650 MG; Start 03/23/17 at 23:00 Ondansetron HCl (Zofran Inj) 4 mg Q6H PRN IV NAUSEA AND/OR VOMITING; Start at 23:00 Diphenhydramine HCl (Benadryl) 50 mg Q6H PRN IV itching Last administered on 15:59; Admin Dose 50 MG; Start 03/24/17 at 06:00 Clotrimazole (Clotrim 1% Vaginal Cr) 1 applic HS VAG Last administered on 20:30; Admin Dose 1 APPLIC; Start 03/24/17 at 21:00 Acetaminophen/ Hydrocodone Bitart ([place] (5/325)) 1 tab Q4H PRN NGT PAIN LEVEL 4-6; Start 03/25/17 at 18:00 ERICK ROBERTSON Mar 31, 2017 17:46
[2017-03-31] MEDS: CLOTRIMAZOLE 1% 45 GM VAG CR VAG SCH (20:12)
[2017-03-31 20:26] VITALS: BP 106/53; RESP 18
[2017-04-01] VITALS (32 sets, daily range): BP systolic 73–108; BP diastolic 25–59; PULSE 78–111; RESP 16–50
[2017-04-01] MEDS: morphine 2 MG INJ IV PRN ×5 (00:14→19:45)
[2017-04-01] MEDS: DIPHENHYDRAMINE 50 MG INJ IV PRN ×3 (04:12→17:51)
[2017-04-01 05:57] LABS: BASOPHILS % 0.6 % (0.0-2.0); EOSINOPHILS # 0.2 10^3/ul (0.0-0.5); EOSINOPHILS % 3.4 % (0.0-7.0); HEMOGLOBIN 8.7 g/dl (12.0-16.0); LYMPHOCYTES # 1.5 10^3/ul (0.8-2.9); LYMPHOCYTES % 30.3 % (15.0-51.0); MEAN CORPUSCULAR HEMOGLOBIN 33.7 pg (29.0-33.0); MEAN CORPUSCULAR HGB CONC 33.5 g/dl (32.0-37.0); MEAN CORPUSCULAR VOLUME 100.8 fl (82.0-101.0); MONOCYTE # 0.5 10^3/ul (0.3-0.9); NEUTROPHIL # 2.8 10^3/ul (1.6-7.5); NEUTROPHILS % 56.5 % (39.0-77.0); PLATELET COUNT 164 10^3/UL (140-415); RED BLOOD COUNT 2.58 10^6/ul (4.20-5.40); RED CELL DISTRIBUTION WIDTH 14.5 % (11.5-14.5)
[2017-04-01 06:01] LABS: PROTEIN, TOTAL 6.7 g/dL (6.1-8.1)
[2017-04-01 06:15] LABS: INR 1.17; PARTIAL THROMBOPLASTIN TIME 36.1 Sec (25.0-35.0); PROTIME 15.1 Sec (11.9-14.9); PT RATIO 1.2
[2017-04-01 06:25] LABS: CALCIUM 10.1 mg/dl (8.4-10.2); CREATININE 9.27 mg/dl (0.44-1.00); POTASSIUM 5.7 mmol/L (3.5-5.1)
[2017-04-01] MEDS: SEVELAMER 800 MG TAB PO SCH ×3 (07:35→17:51)
[2017-04-01] MEDS: CALCIUM ACETATE 667 MG CAP PO SCH ×3 (07:35→17:50)
[2017-04-01] MEDS: CINACALCET 30 MG TAB PO SCH (08:03)
[2017-04-01] MEDS ORDERED: ALBUMIN HUMAN 25% 100 ML IV SCH (12:00)
--- NOTE | 2017-04-01 13:16 | RADRPT ---
Vent Rate: 92 bpm RR Interval: 0 msec [place] Interval: 134 msec QRS Duration: 80 msec QT Interval: 354 msec QTC Interval: 437 msec P-R-T [place]: 70 - 58 - 61 degrees Normal sinus rhythm Normal ECG Electronically Signed By: Alonzo Hussein [id number]
[2017-04-01] MEDS ORDERED: LIDOCAINE 1% (MDV) 20 ML INJ ONE (13:21)
[2017-04-01] MEDS ORDERED: EPHEDrine SULFATE 50 MG/5 ML SYG ONE (13:38)
[2017-04-01] MEDS ORDERED: PROPOFOL 40 ML ONE (13:38)
[2017-04-01] MEDS ORDERED: PHENYLephrine (100 MCG/ML) 5ML SYG ONE (13:38)
[2017-04-01] MEDS ORDERED: FENTAnyl 50 MCG/ML VIAL ONE (13:38)
[2017-04-01] MEDS ORDERED: MIDAZOLAM 1 MG/ML 2 ML INJ ONE (13:38)
--- NOTE | 2017-04-01 13:50 | CONS ---
Date/Time of Note Date/Time of Note DATE: 04/01/17 TIME: 13:49 Assessment/Plan Assessment/Plan Additional Assessment/Plan 31 yo Female with 1) Abdominal pain 2) Left ovarian mass 3) End-stage renal disease 4) MBD Secondary hyperparathyroidism , s/p partial left thyroid lobectomy, left upper and lower parathyroidectomy in November [address] Morales. 5) Anemia Chronic Disease 6) Hyperkalemia S/p HD this am Cont Current Rx and plan Low K renal diet. Consultation Date/Type/Reason Admit Date/Time Mar 23, 2017 at 10:28 Type of Consultation: Renal Referring Provider: LUANNE WALTER MD 24 HR Interval Summary Free Text/Dictation S/p HD this am, Went down for bone bx Exam/Review of Systems Vital Signs Vitals Vital Signs Date Time Temp Pulse Resp B/P Pulse Ox O2 Delivery O2 Flow Rate FiO2 04/01/17 07:38 98.0 86 18 91/55 98 03/31/17 02:56 Room Air Intake and Output 03/31/17 03/31/17 04/01/17 14:59 22:59 06:59 Intake Total 1040 ml 220 ml Balance 1040 ml 220 ml Exam Constitutional: No distress ENMT: mucosa pink and moist Respiratory: clear to auscultation Cardiovascular: regular rate and rhythm, No edema Gastrointestinal: soft 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: BOX SEALING INSPECTOR II-XII intact, nl mental status Results Result Diagram: 04/01/17 0439 04/01/17 0439 Results 24 hrs Laboratory Tests Test 04/01/17 04:39 White Blood Count 5.0 Red Blood Count 2.58 L Hemoglobin 8.7 L Hematocrit 26.0 L Mean Corpuscular Volume 100.8 Mean Corpuscular Hemoglobin 33.7 H Mean Corpuscular Hemoglobin Concent 33.5 Red Cell Distribution Width 14.5 Platelet Count 157 # Mean Platelet Volume 11.0 H Neutrophils % 56.5 Lymphocytes % 30.3 Monocytes % 9.0 Eosinophils % 3.4 Basophils % 0.6 Nucleated Red Blood Cells % 0.0 Neutrophils # 2.8 Lymphocytes # 1.5 Monocytes # 0.5 Eosinophils # 0.2 Basophils # 0.0 Nucleated Red Blood Cells # 0.0 Prothrombin Time 15.1 H Prothrombin Time Ratio 1.2 INR International Normalized Ratio 1.17 Activated Partial Thromboplast Time 36.1 H Thrombin Time 13.0 L Sodium Level 137 Potassium Level 5.7 H Chloride Level 94 L Carbon Dioxide Level 25 Anion Gap 24 H Blood Urea Nitrogen 87 H Creatinine 9.27 #H Glucose Level 57 #L Calcium Level 10.1 Medications Medications Current Medications Morphine Sulfate (morphine) 2 mg Q4H PRN IV pain 7-10 Last administered on 04/01 09:50; Admin Dose 2 MG; Start 03/23/17 at 18:00 Cinacalcet (Sensipar) 90 mg DAILY PO Last administered on 03/31/17 09:20; Admin Dose 90 MG; Start 03/23/17 at 21:00 Acetaminophen (Tylenol Tab) 650 mg Q6H PRN PO PAIN AND OR ELEVATED TEMP Last administered on 03/29/17 18:54; Admin Dose 650 MG; Start 03/23/17 at 23:00 Ondansetron HCl (Zofran Inj) 4 mg Q6H PRN IV NAUSEA AND/OR VOMITING; Start at 23:00 Diphenhydramine HCl (Benadryl) 50 mg Q6H PRN IV itching Last administered on 10:35; Admin Dose 50 MG; Start 03/24/17 at 06:00 Clotrimazole (Clotrim 1% Vaginal Cr) 1 applic HS VAG Last administered on 20:12; Admin Dose 1 APPLIC; Start 03/24/17 at 21:00 Acetaminophen/ Hydrocodone Bitart ([place] (5/325)) 1 tab Q4H PRN NGT PAIN LEVEL 4-6; Start 03/25/17 at 18:00 JUANJO TATUM MD Apr 01, 2017 13:50
[2017-04-01] MEDS ORDERED: FENTAnyl 50 MCG/ML VIAL IV PRN ×3 (14:30)
[2017-04-01] MEDS ORDERED: EPHEDrine SULFATE 50 MG/5 ML SYG IV PRN (14:30)
[2017-04-01] MEDS ORDERED: OXYCODONE/ACETAMINOPHEN (5/325) TAB PO PRN ×2 (14:30)
[2017-04-01] MEDS ORDERED: ALBUMIN HUMAN 25% 50 ML IV SCH (14:30)
--- NOTE | 2017-04-01 14:44 | RADRPT ---
PROCEDURE: CT guided bone right iliac bone biopsy. CLINICAL INDICATION: Lytic lesion of the right iliac bone posteriorly. TECHNIQUE: Informed consent was obtained. The procedure, risks, benefits, complications and alternatives were e xplained to the patient. Risks including bleeding and infection were explained. The patient understo od and was willing to proceed. A procedural pause was performed. The patient's name, date of , and procedure to be performed were verified. One or more of the following dose reduction techni ques were used: Automated exposure control, adjustment of the mA and/or kV according to patient size , use of iterative reconstruction technique. DICOM images are available. Using local anesthetic, sterile technique and CT guidance, an 11-gauge On Control bone biopsy needle was advanced into the right iliac bone via a posterior approach. 10 ml of serosanguineous fluid wa s aspirated from the lytic lesion at this site. The needle was removed. A postprocedural scan was p erformed. A dressing was applied. The patient tolerated procedure well. COMPARISON: CT scan of the abdomen and pelvis dated 12/30/2016. FINDINGS: Initial images demonstrate the tip of the needle at the posterior margin of the right iliac bone lyt ic lesion. Subsequent images demonstrate the needle within the bone. Post biopsy images demonstrate no immediate complication. IMPRESSION: 1. Successful CT guided aspiration of lytic lesion of the right iliac bone posteriorly. RPTAT: QQ .Omid Mota MD, Date Time Electronically viewed and signed by .Omid Mota MD, on 04/01/2017 14:44 .R/
--- NOTE | 2017-04-01 15:17 | PN ---
Date/Time of Note Date/Time of Note DATE: 04/01/17 TIME: 15:16 Assessment/Plan Lines/Catheters IV C[facility]ter Type (from [facility]): Saline Lock Urinary Cath still in place: No Assessment/Plan Assessment/Plan -Multiple T12 osseous lesions per MRI, Dr. Jc is following in oncology consultation. -Abdominal pain, continue morphine for pain and Zofran as needed for nausea. -Right ovarian cystic lesion per MRI, No evidence of torsion. Tumor markers not elevated. Diagnostic laparoscopy and possible ovarian cystectomy is recommended. FINANCIAL INSTITUTION VICE PRESIDENT is following. -End-stage renal disease, patient had a last hemodialysis yesterday. Dr. Silverio is following in nephrology consultation. -Secondary hyperparathyroidism of renal origin, s/p partial left thyroid lobectomy, left upper and lower parathyroidectomy in [place] [address] Morales. Per discussion with patient's ammonium hydroxide operator in our nephrology colleague patient will undergo surgery as an outpatient. Discussed with Dr. Morales, if there is no urgency patient will follow up with ENT surgeon as an outpatient. -Anemia Further recommendations based on clinical course. Plan of care discussed with Dr. Turner. Subjective 24 Hr Interval Summary Free Text/Dictation - Hyperkalemia-nephrology follows -Gone for biopsy by radiology today -No acute issues reported overnight Exam/Review of Systems Vital Signs Vitals Vital Signs Date Time Temp Pulse Resp B/P Pulse Ox O2 Delivery O2 Flow Rate FiO2 04/01/17 07:38 98.0 86 18 91/55 98 03/31/17 02:56 Room Air Intake and Output 03/31/17 03/31/17 04/01/17 15:00 23:00 07:00 Intake Total 1040 ml 220 ml Balance 1040 ml 220 ml Results Result Diagram: 04/01/17 0439 04/01/17 0439 Results 24 hrs Laboratory Tests Test 04/01/17 04:39 White Blood Count 5.0 Red Blood Count 2.58 L Hemoglobin 8.7 L Hematocrit 26.0 L Mean Corpuscular Volume 100.8 Mean Corpuscular Hemoglobin 33.7 H Mean Corpuscular Hemoglobin Concent 33.5 Red Cell Distribution Width 14.5 Platelet Count 157 # Mean Platelet Volume 11.0 H Neutrophils % 56.5 Lymphocytes % 30.3 Monocytes % 9.0 Eosinophils % 3.4 Basophils % 0.6 Nucleated Red Blood Cells % 0.0 Neutrophils # 2.8 Lymphocytes # 1.5 Monocytes # 0.5 Eosinophils # 0.2 Basophils # 0.0 Nucleated Red Blood Cells # 0.0 Prothrombin Time 15.1 H Prothrombin Time Ratio 1.2 INR International Normalized Ratio 1.17 Activated Partial Thromboplast Time 36.1 H Thrombin Time 13.0 L Sodium Level 137 Potassium Level 5.7 H Chloride Level 94 L Carbon Dioxide Level 25 Anion Gap 24 H Blood Urea Nitrogen 87 H Creatinine 9.27 #H Glucose Level 57 #L Calcium Level 10.1 Medications Medications Current Medications Morphine Sulfate (morphine) 2 mg Q4H PRN IV pain 7-10 Last administered on 04/01 09:50; Admin Dose 2 MG; Start 03/23/17 at 18:00 Cinacalcet (Sensipar) 90 mg DAILY PO Last administered on 03/31/17 09:20; Admin Dose 90 MG; Start 03/23/17 at 21:00 Acetaminophen (Tylenol Tab) 650 mg Q6H PRN PO PAIN AND OR ELEVATED TEMP Last administered on 03/29/17 18:54; Admin Dose 650 MG; Start 03/23/17 at 23:00 Ondansetron HCl (Zofran Inj) 4 mg Q6H PRN IV NAUSEA AND/OR VOMITING; Start at 23:00 Diphenhydramine HCl (Benadryl) 50 mg Q6H PRN IV itching Last administered on 10:35; Admin Dose 50 MG; Start 03/24/17 at 06:00 Clotrimazole (Clotrim 1% Vaginal Cr) 1 applic HS VAG Last administered on 20:12; Admin Dose 1 APPLIC; Start 03/24/17 at 21:00 Acetaminophen/ Hydrocodone Bitart 1 tab 1 tab Q4H PRN NGT PAIN LEVEL 4-6; Start 03/25/17 at 18:00 Albumin Human (Albumin Human 25%) 50 ml @ 100 mls/hr ONCE IV ; Start 04/01/17 at 14:30; Stop 04/01/17 at 17:00 EDILMA CASIANO Apr 01, 2017 15:17
[2017-04-01] MEDS: ALBUMIN HUMAN 5% 250 ML IV PRN ×2 (15:19→16:06)
[2017-04-01 16:21] LABS: ALBUMIN 4.2 g/dL (3.8-4.8)
--- NOTE | 2017-04-01 19:37 | PN ---
Date/Time of Note Date/Time of Note DATE: 04/01/17 TIME: 19:29 Assessment/Plan VTE Prophylaxis VTE Prophylaxis Intervention: other Lines/Catheters IV [facility] Type (from [facility]): Saline Lock Urinary Cath still in place: No Assessment/Plan Assessment/Plan -Multiple T12 osseous lesions per MRI, Dr. Jc is following in oncology consultation. - SP Bone bx today - per oncology -Abdominal pain, continue morphine for pain and Zofran as needed for nausea. -Right ovarian cystic lesion per MRI, No evidence of torsion. Tumor markers not elevated. Diagnostic laparoscopy and possible ovarian cystectomy is recommended. MANAGEMENT AIDE is following. -End-stage renal disease, patient had a last hemodialysis yesterday. Dr. Silverio is following in nephrology consultation. -Secondary hyperparathyroidism of renal origin, s/p partial left thyroid lobectomy, left upper and lower parathyroidectomy in [place] [address] Morales. Per discussion with patient's wool handler in our nephrology colleague patient will undergo surgery as an outpatient. Discussed with Dr. Morales, if there is no urgency patient will follow up with ENT surgeon as an outpatient. -Anemia Further recommendations based on clinical course. Plan of care discussed with Dr. Turner. Exam/Review of Systems Vital Signs Vitals Vital Signs Date Time Temp Pulse Resp B/P Pulse Ox O2 Delivery O2 Flow Rate FiO2 04/01/17 17:46 98.3 99 17 91/38 97 04/01/17 16:35 Room Air Intake and Output 03/31/17 03/31/17 04/01/17 14:59 22:59 06:59 Intake Total 1040 ml 220 ml Balance 1040 ml 220 ml Exam Constitutional: alert, oriented Respiratory: diminished breath sounds, normal air movement Gastrointestinal: non-tender, soft Musculoskeletal: other (left iliac crest sp biopsy - c/o pain) Results Result Diagram: 04/01/17 0439 04/01/179 Results 24 hrs Laboratory Tests Test 04/01/17 04:39 White Blood Count 5.0 Red Blood Count 2.58 L Hemoglobin 8.7 L Hematocrit 26.0 L Mean Corpuscular Volume 100.8 Mean Corpuscular Hemoglobin 33.7 H Mean Corpuscular Hemoglobin Concent 33.5 Red Cell Distribution Width 14.5 Platelet Count 157 # Mean Platelet Volume 11.0 H Neutrophils % 56.5 Lymphocytes % 30.3 Monocytes % 9.0 Eosinophils % 3.4 Basophils % 0.6 Nucleated Red Blood Cells % 0.0 Neutrophils # 2.8 Lymphocytes # 1.5 Monocytes # 0.5 Eosinophils # 0.2 Basophils # 0.0 Nucleated Red Blood Cells # 0.0 Prothrombin Time 15.1 H Prothrombin Time Ratio 1.2 INR International Normalized Ratio 1.17 Activated Partial Thromboplast Time 36.1 H Thrombin Time 13.0 L Sodium Level 137 Potassium Level 5.7 H Chloride Level 94 L Carbon Dioxide Level 25 Anion Gap 24 H Blood Urea Nitrogen 87 H Creatinine 9.27 #H Glucose Level 57 #L Calcium Level 10.1 Medications Medications Current Medications Morphine Sulfate (morphine) 2 mg Q4H PRN IV pain 7-10 Last administered on 04/01 09:50; Admin Dose 2 MG; Start 03/23/17 at 18:00 Cinacalcet (Sensipar) 90 mg DAILY PO Last administered on 03/31/17 09:20; Admin Dose 90 MG; Start 03/23/17 at 21:00 Acetaminophen (Tylenol Tab) 650 mg Q6H PRN PO PAIN AND OR ELEVATED TEMP Last administered on 03/29/17 18:54; Admin Dose 650 MG; Start 03/23/17 at 23:00 Ondansetron HCl (Zofran Inj) 4 mg Q6H PRN IV NAUSEA AND/OR VOMITING; Start at 23:00 Diphenhydramine HCl (Benadryl) 50 mg Q6H PRN IV itching Last administered on 17:51; Admin Dose 50 MG; Start 03/24/17 at 06:00 Clotrimazole (Clotrim 1% Vaginal Cr) 1 applic HS VAG Last administered on 20:12; Admin Dose 1 APPLIC; Start 03/24/17 at 21:00 Acetaminophen/ Hydrocodone Bitart ([place] (5/325)) 1 tab Q4H PRN NGT PAIN LEVEL 4-6; Start 03/25/17 at 18:00 EDILMA CASIANO Apr 01, 2017 19:37
[2017-04-01] MEDS: CLOTRIMAZOLE 1% 45 GM VAG CR VAG SCH (21:00)
[2017-04-02] VITALS (14 sets, daily range): BP systolic 91–112; BP diastolic 44–66; PULSE 85–99; RESP 17–20
[2017-04-02] MEDS: DIPHENHYDRAMINE 50 MG INJ IV PRN ×4 (00:15→21:55)
[2017-04-02] MEDS: CALCIUM ACETATE 667 MG CAP PO SCH ×3 (08:00→17:48)
[2017-04-02] MEDS: SEVELAMER 800 MG TAB PO SCH ×3 (08:00→17:48)
[2017-04-02] MEDS: CINACALCET 30 MG TAB PO SCH (08:03)
[2017-04-02] MEDS: morphine 2 MG INJ IV PRN ×3 (09:55→21:56)
[2017-04-02 10:27] LABS: BASOPHILS % 0.6 % (0.0-2.0); EOSINOPHILS # 0.2 10^3/ul (0.0-0.5); EOSINOPHILS % 3.1 % (0.0-7.0); HEMATOCRIT 24.7 % (37.0-47.0); HEMOGLOBIN 8.3 g/dl (12.0-16.0); LYMPHOCYTES # 1.3 10^3/ul (0.8-2.9); LYMPHOCYTES % 27.5 % (15.0-51.0); MEAN CORPUSCULAR HEMOGLOBIN 34.6 pg (29.0-33.0); MEAN CORPUSCULAR HGB CONC 33.6 g/dl (32.0-37.0); MEAN CORPUSCULAR VOLUME 102.9 fl (82.0-101.0); MEAN PLATELET VOLUME 10.9 fl (7.4-10.4); MONOCYTE # 0.5 10^3/ul (0.3-0.9); MONOCYTES % 9.4 % (0.0-11.0); NEUTROPHIL # 2.8 10^3/ul (1.6-7.5); NEUTROPHILS % 59.2 % (39.0-77.0); PLATELET COUNT 158 10^3/UL (140-415); RED CELL DISTRIBUTION WIDTH 14.6 % (11.5-14.5); WHITE BLOOD COUNT 4.8 10^3/ul (4.8-10.8)
[2017-04-02 11:12] LABS: CALCIUM 10.1 mg/dl (8.4-10.2); CREATININE 6.65 mg/dl (0.44-1.00); POTASSIUM 5.2 mmol/L (3.5-5.1)
[2017-04-02] MEDS ORDERED: NA POLYST SULFON 15 GM/60 ML BTL PR ONE (15:00)
--- NOTE | 2017-04-02 15:56 | PN ---
Date/Time of Note Date/Time of Note DATE: 04/02/17 TIME: 15:51 Assessment/Plan VTE Prophylaxis VTE Prophylaxis Intervention: heparin Lines/Catheters IV Catheter Type (from [facility]): Saline Lock Urinary Cath still in place: No Assessment/Plan Chief Complaint/Hosp Course Patient was transferred to telemetry for monitoring of blood pressure and heart rate. Patient episode of hypotension, hyperkalemia status post dialysis Assessment/Plan -Multiple T12 osseous lesions per MRI, status post biopsy of right iliac bone by radiology, follow-up on path. Dr. Jc is following in oncology consultation. -Abdominal pain, continue morphine for pain and Zofran as needed for nausea. -Right ovarian cystic lesion per MRI, No evidence of torsion. Tumor markers not elevated. Diagnostic laparoscopy and possible ovarian cystectomy is recommended. HONE OPERATOR is following. -End-stage renal disease, patient had a last hemodialysis yesterday. Dr. Silverio is following in nephrology consultation. -Secondary hyperparathyroidism of renal origin, s/p partial left thyroid lobectomy, left upper and lower parathyroidectomy in November [address] Morales. Per discussion with patient's chicken picker in our nephrology colleague patient will undergo surgery as an outpatient. Discussed with Dr. Morales, if there is no urgency patient will follow up with ENT surgeon as an outpatient. -Anemia Further recommendations based on clinical course. Plan of care discussed with Dr. Turner. Problems: Exam/Review of Systems Vital Signs Vitals Vital Signs Date Time Temp Pulse Resp B/P Pulse Ox O2 Delivery O2 Flow Rate FiO2 04/02/17 15:40 98.5 95 17 98/54 100 04/01/17 17:07 Room Air Intake and Output 04/01/17 04/01/17 04/02/17 14:59 22:59 06:59 Intake Total 500 ml 550 ml Output Total 3000 ml Balance -2500 ml 550 ml Exam Constitutional: alert, oriented Respiratory: normal air movement Cardiovascular: nl pulses Gastrointestinal: soft, tender Musculoskeletal: nl extremities to inspection Extremities: normal pulses, other (Left upper extremity fistula) Results Result Diagram: 04/02/17 0842 04/02/17 0842 Results 24 hrs Laboratory Tests Test 04/02/17 08:42 04/02/17 13:15 White Blood Count 4.8 Red Blood Count 2.40 L Hemoglobin 8.3 L Hematocrit 24.7 L Mean Corpuscular Volume 102.9 H Mean Corpuscular Hemoglobin 34.6 H Mean Corpuscular Hemoglobin Concent 33.6 Red Cell Distribution Width 14.6 H Platelet Count 158 Mean Platelet Volume 10.9 H Neutrophils % 59.2 Lymphocytes % 27.5 Monocytes % 9.4 Eosinophils % 3.1 Basophils % 0.6 Nucleated Red Blood Cells % 0.0 Neutrophils # 2.8 Lymphocytes # 1.3 Monocytes # 0.5 Eosinophils # 0.2 Basophils # 0.0 Nucleated Red Blood Cells # 0.0 Sodium Level 144 Potassium Level 5.2 H Chloride Level 99 Carbon Dioxide Level 26 Anion Gap 24 H Blood Urea Nitrogen 56 #H Creatinine 6.65 #H Glucose Level 56 L Calcium Level 10.1 Bedside Glucose 112 Medications Medications Current Medications Morphine Sulfate (morphine) 2 mg Q4H PRN IV pain 7-10 Last administered on 04/02 09:55; Admin Dose 2 MG; Start 03/23/17 at 18:00 Cinacalcet (Sensipar) 90 mg DAILY PO Last administered on 04/02/17 08:03; Admin Dose 90 MG; Start 03/23/17 at 21:00 Acetaminophen (Tylenol Tab) 650 mg Q6H PRN PO PAIN AND OR ELEVATED TEMP Last administered on 03/29/17 18:54; Admin Dose 650 MG; Start 03/23/17 at 23:00 Ondansetron HCl (Zofran Inj) 4 mg Q6H PRN IV NAUSEA AND/OR VOMITING; Start at 23:00 Diphenhydramine HCl (Benadryl) 50 mg Q6H PRN IV itching Last administered on 14:35; Admin Dose 50 MG; Start 03/24/17 at 06:00 Clotrimazole (Clotrim 1% Vaginal Cr) 1 applic HS VAG Last administered on 20:12; Admin Dose 1 APPLIC; Start 03/24/17 at 21:00 Acetaminophen/ Hydrocodone Bitart ([place] (5/325)) 1 tab Q4H PRN NGT PAIN LEVEL 4-6; Start 03/25/17 at 18:00 ERICK ROBERTSON Apr 02, 2017 15:56
--- NOTE | 2017-04-02 16:04 | CONS ---
Date/Time of Note Date/Time of Note DATE: 04/02/17 TIME: 16:01 Assessment/Plan Assessment/Plan Additional Assessment/Plan 31 yo Female with 1) Abdominal pain 2) Left ovarian mass 3) End-stage renal disease 4) MBD Secondary hyperparathyroidism , s/p partial left thyroid lobectomy, left upper and lower parathyroidectomy in [place] [address] Morales. 5) Anemia Chronic Disease 6) Hyperkalemia 7) Lytic lesion bone, S/p Bx . S/p HD yesterday Kayexalate todya HD ordered for tomorrow am. Cont Current Rx and plan Low K renal diet. Consultation Date/Type/Reason Admit Date/Time Mar 23, 2017 at 10:28 Type of Consultation: Renal Referring Provider: LUANNE WALTER MD 24 HR Interval Summary Free Text/Dictation S/p Bone Bx, S/p HD yesterday. Transferred to [facility] for low BP. Constitutional: No requiring O2 Exam/Review of Systems Vital Signs Vitals Vital Signs Date Time Temp Pulse Resp B/P Pulse Ox O2 Delivery O2 Flow Rate FiO2 04/02/17 15:40 98.5 95 17 98/54 100 04/01/17 17:07 Room Air Intake and Output 04/01/17 04/01/17 04/02/17 15:00 23:00 07:00 Intake Total 500 ml 550 ml Output Total 3000 ml Balance -2500 ml 550 ml Exam Constitutional: alert, No distress ENMT: mucosa pink and moist Neck: No jvd Respiratory: clear to auscultation, No labored breathing Cardiovascular: regular rate and rhythm, No edema Gastrointestinal: non-tender, soft Extremities: No edema 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: BUCKLE SEWER II-XII intact Skin: diaphoresis, No rash or lesions Results Result Diagram: 04/02/17 0842 04/02/17 0842 Results 24 hrs Laboratory Tests Test 04/02/17 08:42 04/02/17 13:15 White Blood Count 4.8 Red Blood Count 2.40 L Hemoglobin 8.3 L Hematocrit 24.7 L Mean Corpuscular Volume 102.9 H Mean Corpuscular Hemoglobin 34.6 H Mean Corpuscular Hemoglobin Concent 33.6 Red Cell Distribution Width 14.6 H Platelet Count 158 Mean Platelet Volume 10.9 H Neutrophils % 59.2 Lymphocytes % 27.5 Monocytes % 9.4 Eosinophils % 3.1 Basophils % 0.6 Nucleated Red Blood Cells % 0.0 Neutrophils # 2.8 Lymphocytes # 1.3 Monocytes # 0.5 Eosinophils # 0.2 Basophils # 0.0 Nucleated Red Blood Cells # 0.0 Sodium Level 144 Potassium Level 5.2 H Chloride Level 99 Carbon Dioxide Level 26 Anion Gap 24 H Blood Urea Nitrogen 56 #H Creatinine 6.65 #H Glucose Level 56 L Calcium Level 10.1 Bedside Glucose 112 Medications Medications Current Medications Morphine Sulfate (morphine) 2 mg Q4H PRN IV pain 7-10 Last administered on 04/02 09:55; Admin Dose 2 MG; Start 03/23/17 at 18:00 Cinacalcet (Sensipar) 90 mg DAILY PO Last administered on 04/02/17 08:03; Admin Dose 90 MG; Start 03/23/17 at 21:00 Acetaminophen (Tylenol Tab) 650 mg Q6H PRN PO PAIN AND OR ELEVATED TEMP Last administered on 03/29/17 18:54; Admin Dose 650 MG; Start 03/23/17 at 23:00 Ondansetron HCl (Zofran Inj) 4 mg Q6H PRN IV NAUSEA AND/OR VOMITING; Start at 23:00 Diphenhydramine HCl (Benadryl) 50 mg Q6H PRN IV itching Last administered on 14:35; Admin Dose 50 MG; Start 03/24/17 at 06:00 Clotrimazole (Clotrim 1% Vaginal Cr) 1 applic HS VAG Last administered on 20:12; Admin Dose 1 APPLIC; Start 03/24/17 at 21:00 Acetaminophen/ Hydrocodone Bitart ([place] (5/325)) 1 tab Q4H PRN NGT PAIN LEVEL 4-6; Start 03/25/17 at 18:00 JUANJO TATUM MD Apr 02, 2017 16:04
[2017-04-02] MEDS ORDERED: BUPIVACAINE 0.5%/EPI 1:200,000 50 ML (MDV) INJ ONE (16:30)
[2017-04-02] MEDS ORDERED: BUPIVACAINE 0.5%/EPI (SDV) 30 ML INJ INJ ONE (16:30)
[2017-04-02] MEDS ORDERED: BETAMET NA PHOS/AC(6 MG/ML) 5ML INJ INJ ONE (16:30)
--- NOTE | 2017-04-02 16:58 | CONS ---
DATE OF ADMISSION: 03/23/2017 DATE OF CONSULTATION: 04/02/2017 HISTORY OF PRESENT ILLNESS: The patient is a 31-year-old female with known history of kidney failure on dialysis, hypertension, history of secondary hyperparathyroidism due to renal disease who had a left upper and lower parathyroidectomy in November 2016. The patient was admitted on the 23 March 2017 when she came to the emergency room complaining of lower abdominal pain. She was also complaining of pain involving her left knee which has been going on for the last 5 months. She denies any history of trauma, such as a fall on her knee. Her pain is more with the kneeling or squatting or going up and down the stairs. PHYSICAL EXAMINATION: GENERAL APPEARANCE: My examination revealed a 31-year-old female who is not in any acute distress at this time. EXTREMITIES: There was no effusion in the left knee. There was a mild and painful limit of motion of the left knee with subpatellar crepitus. There seems to be somewhat more tenderness in the peripatellar area. 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 There is also an abnormality and the irregularity involving the articular surface of the left patella that may the connected to the brown tumors in the patella. 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 RECOMMENDATIONS FOR MANAGEMENT: Trial of steroid injection for symptomatic relief when it is available. Dictated By: In Stephanie Nagy MD /facundo/hernán Mathews#: [id number]/Document#: [id number]
[2017-04-02] MEDS: CLOTRIMAZOLE 1% 45 GM VAG CR VAG SCH (21:00)
[2017-04-03] VITALS (20 sets, daily range): BP systolic 95–118; BP diastolic 51–78; PULSE 79–115; RESP 17–20
[2017-04-03] MEDS: morphine 2 MG INJ IV PRN ×4 (04:05→21:44)
[2017-04-03] MEDS: DIPHENHYDRAMINE 50 MG INJ IV PRN ×4 (04:05→21:43)
[2017-04-03 06:59] LABS: BASOPHILS % 0.2 % (0.0-2.0); HEMATOCRIT 24.3 % (37.0-47.0); HEMOGLOBIN 8.2 g/dl (12.0-16.0); LYMPHOCYTES # 0.7 10^3/ul (0.8-2.9); LYMPHOCYTES % 11.8 % (15.0-51.0); MEAN CORPUSCULAR HGB CONC 33.7 g/dl (32.0-37.0); MEAN CORPUSCULAR VOLUME 100.8 fl (82.0-101.0); MONOCYTE # 0.1 10^3/ul (0.3-0.9); MONOCYTES % 1.5 % (0.0-11.0); NEUTROPHIL # 5.1 10^3/ul (1.6-7.5); PLATELET COUNT 170 10^3/UL (140-415); RED BLOOD COUNT 2.41 10^6/ul (4.20-5.40); RED CELL DISTRIBUTION WIDTH 14.3 % (11.5-14.5); WHITE BLOOD COUNT 5.9 10^3/ul (4.8-10.8)
[2017-04-03 08:03] LABS: CALCIUM 9.5 mg/dl (8.4-10.2); CREATININE 8.77 mg/dl (0.44-1.00)
[2017-04-03 08:26] LABS: POTASSIUM 6.3 mmol/L (3.5-5.1)
[2017-04-03] MEDS: CALCIUM ACETATE 667 MG CAP PO SCH ×3 (09:09→18:31)
[2017-04-03] MEDS: SEVELAMER 800 MG TAB PO SCH ×3 (09:09→18:32)
[2017-04-03] MEDS: CINACALCET 30 MG TAB PO SCH (09:10)
--- NOTE | 2017-04-03 11:09 | PN ---
Date/Time of Note Date/Time of Note DATE: 04/03/17 TIME: 11:08 Assessment/Plan VTE Prophylaxis VTE Prophylaxis Intervention: other Lines/Catheters IV [facility] Type [facility]from [facility] Saline Lock Urinary Cath still in place: No Assessment/Plan Chief Complaint/Hosp Course -Multiple T12 osseous lesions per MRI, status post biopsy of right iliac bone by radiology, follow-up on path. Dr. Jc is following in oncology consultation. -Abdominal pain, continue morphine for pain and Zofran as needed for nausea. -Right ovarian cystic lesion per MRI, No evidence of torsion. Tumor markers not elevated. Diagnostic laparoscopy and possible ovarian cystectomy is recommended. TUBING DRIER is following. -End-stage renal disease, patient had a last hemodialysis yesterday. Dr. Silverio is following in nephrology consultation. -Secondary hyperparathyroidism of renal origin, s/p partial left thyroid lobectomy, left upper and lower parathyroidectomy in November [address] Morales. Per discussion with patient's sand mill operator in our nephrology colleague patient will undergo surgery as an outpatient. Discussed with Dr. Morales, if there is no urgency patient will follow up with ENT surgeon as an outpatient. -Anemia Problems: Subjective 24 Hr Interval Summary Free Text/Dictation Patient continues to have a large amount of abdominal pain Exam/Review of Systems Vital Signs Vitals Vital Signs Date Time Temp Pulse Resp B/P Pulse Ox O2 Delivery O2 Flow Rate FiO2 04/03/17 08:35 81 04/03/17 07:51 97.6 18 95/53 96 04/01/17 17:07 Room Air Exam Constitutional: well developed Head: atraumatic, normocephalic Neck: supple Respiratory: diminished breath sounds Cardiovascular: regular rate and rhythm Gastrointestinal: non-tender, soft Extremities: normal pulses Results Result Diagram: 04/03/17 0610 04/03/17 0610 Results 24 hrs Laboratory Tests Test 04/02/17 13:15 04/03/17 06:10 Bedside Glucose 112 White Blood Count 5.9 # Red Blood Count 2.41 L Hemoglobin 8.2 L Hematocrit 24.3 L Mean Corpuscular Volume 100.8 Mean Corpuscular Hemoglobin 34.0 H Mean Corpuscular Hemoglobin Concent 33.7 Red Cell Distribution Width 14.3 Platelet Count 170 Mean Platelet Volume 11.0 H Neutrophils % 86.0 H Lymphocytes % 11.8 L Monocytes % 1.5 Eosinophils % 0.0 Basophils % 0.2 Nucleated Red Blood Cells % 0.0 Neutrophils # 5.1 Lymphocytes # 0.7 L Monocytes # 0.1 L Eosinophils # 0.0 Basophils # 0.0 Nucleated Red Blood Cells # 0.0 Sodium Level 137 Potassium Level 6.3 *H Chloride Level 96 L Carbon Dioxide Level 21 Anion Gap 26 H Blood Urea Nitrogen 78 H Creatinine 8.77 #H Glucose Level 174 # Calcium Level 9.5 Medications Medications Current Medications Morphine Sulfate (morphine) 2 mg Q4H PRN IV pain 7-10 Last administered on 04/03 10:07; Admin Dose 2 MG; Start 03/23/17 at 18:00 Cinacalcet (Sensipar) 90 mg DAILY PO Last administered on 04/03/17 09:10; Admin Dose 90 MG; Start 03/23/17 at 21:00 Acetaminophen (Tylenol Tab) 650 mg Q6H PRN PO PAIN AND OR ELEVATED TEMP Last administered on 03/29/17 18:54; Admin Dose 650 MG; Start 03/23/17 at 23:00 Ondansetron HCl (Zofran Inj) 4 mg Q6H PRN IV NAUSEA AND/OR VOMITING; Start at 23:00 Diphenhydramine HCl (Benadryl) 50 mg Q6H PRN IV itching Last administered on 10:06; Admin Dose 50 MG; Start 03/24/17 at 06:00 Clotrimazole (Clotrim 1% Vaginal Cr) 1 applic HS VAG Last administered on 21:00; Admin Dose 1 APPLIC; Start 03/24/17 at 21:00 Acetaminophen/ Hydrocodone Bitart ([place] (5/325)) 1 tab Q4H PRN NGT PAIN LEVEL 4-6; Start 03/25/17 at 18:00 ANGELY PANG Apr 03, 2017 11:09
--- NOTE | 2017-04-03 12:47 | CONS ---
Date/Time of Note Date/Time of Note DATE: 04/03/17 TIME: 12:46 Assessment/Plan Assessment/Plan Additional Assessment/Plan 31 yo Female with 1) Abdominal pain 2) Left ovarian mass 3) End-stage renal disease 4) MBD Secondary hyperparathyroidism , s/p partial left thyroid lobectomy, left upper and lower parathyroidectomy in [place] [address] Morales. 5) Anemia Chronic Disease 6) Hyperkalemia 7) Lytic lesion bone, S/p Bx . S/p HD yesterday HD ordered for today Cont Current Rx and plan Low K renal diet. Consultation Date/Type/Reason Admit Date/Time Mar 23, 2017 at 10:28 Type of Consultation: Renal Referring Provider: LUANNE WALTER MD 24 HR Interval Summary Free Text/Dictation Pending HD Constitutional: No requiring O2 Exam/Review of Systems Vital Signs Vitals Vital Signs Date Time Temp Pulse Resp B/P Pulse Ox O2 Delivery O2 Flow Rate FiO2 04/03/17 12:24 81 04/03/17 11:10 98.1 20 99/54 98 04/01/17 17:07 Room Air Exam Constitutional: No distress ENMT: mucosa pink and moist Neck: No jvd Respiratory: clear to auscultation Cardiovascular: regular rate and rhythm, No edema Gastrointestinal: soft 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: LINEMAN II-XII intact, nl mental status, No lethargic Results Result Diagram: 04/03/17 0610 04/03/17 0610 Results 24 hrs Laboratory Tests Test 04/02/17 13:15 04/03/17 06:10 Bedside Glucose 112 White Blood Count 5.9 # Red Blood Count 2.41 L Hemoglobin 8.2 L Hematocrit 24.3 L Mean Corpuscular Volume 100.8 Mean Corpuscular Hemoglobin 34.0 H Mean Corpuscular Hemoglobin Concent 33.7 Red Cell Distribution Width 14.3 Platelet Count 170 Mean Platelet Volume 11.0 H Neutrophils % 86.0 H Lymphocytes % 11.8 L Monocytes % 1.5 Eosinophils % 0.0 Basophils % 0.2 Nucleated Red Blood Cells % 0.0 Neutrophils # 5.1 Lymphocytes # 0.7 L Monocytes # 0.1 L Eosinophils # 0.0 Basophils # 0.0 Nucleated Red Blood Cells # 0.0 Sodium Level 137 Potassium Level 6.3 *H Chloride Level 96 L Carbon Dioxide Level 21 Anion Gap 26 H Blood Urea Nitrogen 78 H Creatinine 8.77 #H Glucose Level 174 # Calcium Level 9.5 Medications Medications Current Medications Morphine Sulfate (morphine) 2 mg Q4H PRN IV pain 7-10 Last administered on 04/03 10:07; Admin Dose 2 MG; Start 03/23/17 at 18:00 Cinacalcet (Sensipar) 90 mg DAILY PO Last administered on 04/03/17 09:10; Admin Dose 90 MG; Start 03/23/17 at 21:00 Acetaminophen (Tylenol Tab) 650 mg Q6H PRN PO PAIN AND OR ELEVATED TEMP Last administered on 03/29/17 18:54; Admin Dose 650 MG; Start 03/23/17 at 23:00 Ondansetron HCl (Zofran Inj) 4 mg Q6H PRN IV NAUSEA AND/OR VOMITING; Start at 23:00 Diphenhydramine HCl (Benadryl) 50 mg Q6H PRN IV itching Last administered on 10:06; Admin Dose 50 MG; Start 03/24/17 at 06:00 Clotrimazole (Clotrim 1% Vaginal Cr) 1 applic HS VAG Last administered on 21:00; Admin Dose 1 APPLIC; Start 03/24/17 at 21:00 Acetaminophen/ Hydrocodone Bitart ([place] (5/325)) 1 tab Q4H PRN NGT PAIN LEVEL 4-6; Start 03/25/17 at 18:00 JUANJO TATUM MD Apr 03, 2017 12:47
[2017-04-03] MEDS: HYDROCODONE/APAP (5/325) TAB NGT PRN (17:25)
[2017-04-03] MEDS ORDERED: morphine 2 MG INJ IV STA (17:31)
[2017-04-03 17:41] LABS: Allen Test ACCEPTAB; Arterial Base Excess 0.8 mmol/L (-3.0-3); Arterial COHb 0.2 % (0.0-3.0); Arterial Fraction of Oxyhgb 98.3 % (93.0-99.0); Arterial HCO3 20.5 mmol/L (22.0-26.0); Arterial MetHb 0.3 % (0.0-1.5); Arterial Total Hemglobin 10.9 g/dl (12.0-18.0); MODE MASK - NRB
--- NOTE | 2017-04-03 17:55 | RADRPT ---
PROCEDURE: XR Chest. CLINICAL INDICATION: Chest pain TECHNIQUE: A frontal view of the chest was performed. COMPARISON: December 02, 2016 FINDINGS: The cardiomediastinal silhouette is within normal limits. The lungs are clear. No signs of pleural f luid or pneumothorax are seen. The osseous structures and soft tissues are unremarkable. IMPRESSION: No evidence for active cardiopulmonary disease. No interval change. RPTAT: QQ .Page Baez MD, MD Date Time Electronically viewed and signed by .Page Baez MD, MD on 04/03/2017 17:55 .F/
--- NOTE | 2017-04-03 17:56 | RADRPT ---
PROCEDURE: XR Abdomen. CLINICAL INDICATION: Abdominal pain TECHNIQUE: AP abdomen x-ray. COMPARISON: December 18, 2016 FINDINGS: The bowel gas pattern is normal. There is no evidence of obstruction. There is mild stool throughout the colon. There are no abnormal calcifications overlying the urinary tracts. The osseus structures are unremarkable. IMPRESSION: Mild constipation. Overall, no interval change. RPTAT: QQ .Page Baez MD, MD Date Time Electronically viewed and signed by .Page Baez MD, on 04/03/2017 17:56 .F/
[2017-04-03 18:30] LABS: BASOPHILS % 0.1 % (0.0-2.0); HEMATOCRIT 27.2 % (37.0-47.0); HEMOGLOBIN 9.5 g/dl (12.0-16.0); LYMPHOCYTES # 0.9 10^3/ul (0.8-2.9); MEAN CORPUSCULAR HEMOGLOBIN 34.4 pg (29.0-33.0); MEAN CORPUSCULAR HGB CONC 34.9 g/dl (32.0-37.0); MEAN CORPUSCULAR VOLUME 98.6 fl (82.0-101.0); MEAN PLATELET VOLUME 10.6 fl (7.4-10.4); MONOCYTE # 0.3 10^3/ul (0.3-0.9); NEUTROPHIL # 9.1 10^3/ul (1.6-7.5); NEUTROPHILS % 87.5 % (39.0-77.0); PLATELET COUNT 213 10^3/UL (140-415); RED BLOOD COUNT 2.76 10^6/ul (4.20-5.40); RED CELL DISTRIBUTION WIDTH 14.5 % (11.5-14.5); WHITE BLOOD COUNT 10.4 10^3/ul (4.8-10.8)
[2017-04-03] MEDS ORDERED: BARIUM SULF 2% 450 ML BTL (BERRY SMOOTHIE) PO ONE (18:30)
[2017-04-03 18:48] LABS: ALBUMIN 4.9 g/dl (3.3-4.9); ALBUMIN/GLOBULIN RATIO 1.58; BILIRUBIN,INDIRECT 0.1 mg/dl (0-1.1); BILIRUBIN,TOTAL 0.1 mg/dl (0.2-1.3); CALCIUM 10.2 mg/dl (8.4-10.2); CREATININE 4.75 mg/dl (0.44-1.00); POTASSIUM 3.3 mmol/L (3.5-5.1)
[2017-04-03] MEDS: CLOTRIMAZOLE 1% 45 GM VAG CR VAG SCH (21:00)
[2017-04-04] VITALS (12 sets, daily range): BP systolic 97–120; BP diastolic 52–65; PULSE 79–103; RESP 16–18
--- NOTE | 2017-04-04 00:11 | RADRPT ---
PROCEDURE: CT Abdomen and pelvis without contrast. CLINICAL INDICATION: Abdominal pain. TECHNIQUE: CT scan of the abdomen and pelvis was performed on a multi-detector high-resolution CT scanner. Contiguous axial images were obtained from the lung bases to the ischial tuberosities wit hout intravenous contrast. Coronal and sagittal reformatted images were also obtained. Images were reviewed on the PACS workstation. DICOM images are available. One or more of the following dose reduction techniques were used: - Automated exposure control. - Adjustment of the mA and/or kV according to patient size. - Use of iterative reconstruction technique. Exam CTD/vol = 4.60 mGy. Total exam DLP = 239.68 mGy-cm. COMPARISON: 12/30/2016. FINDINGS: Evaluation of the lung bases demonstrates mild bibasilar atelectasis. Abdomen: The liver is normal in size. There is no focal mass or dilatation of the biliary tree. T he gallbladder is contracted and demonstrates mild wall thickening. The spleen, pancreas and bilate ral adrenal glands are within normal limits. Bilateral kidneys are atrophic with a cyst off of the lower pole of the right kidney. There is no radiopaque renal or ureteral calculus identified. Ther e is no hydronephrosis or hydroureter. There is no retroperitoneal adenopathy. The abdominal aorta is of normal caliber. There is moderate retained stool within the colon. There is no bowel obstruction or free air. A no rmal appendix is identified. There is no diverticulosis or diverticulitis. There is no ascites. Pelvis: The bladder is unremarkable. The uterus is unremarkable. There is a cystic structure with posterior to the uterus measuring 4.1 x 2.7 cm. There is no significant pelvic adenopathy or free fluid. Evaluation of the osseous structures demonstrates diffuse increased sclerosis with scattered small l ucent lesions with the largest in the right iliac bone measuring 4.3 x 2.3 cm. IMPRESSION: Moderate retained stool within the colon. Diffuse increased sclerosis of the bony skeleton compatible with renal osteodystrophy. There are mul tiple lucent lesions with the largest in the right iliac bone which are unchanged. Bilateral atrophic kidneys and right renal cyst. Mild gallbladder wall thickening likely due to gallbladder contraction. Pelvic cyst measuring 4.1 cm, unchanged. Continued follow-up is recommended. Mild bibasilar atelectasis. .Jason Hendricks MD, MD Date Time Electronically viewed and signed by .Jason Hendricks MD, MD on 04/04/2017 00:11 .T/
[2017-04-04] MEDS: morphine 2 MG INJ IV PRN ×4 (04:19→22:24)
[2017-04-04] MEDS: DIPHENHYDRAMINE 50 MG INJ IV PRN ×4 (04:19→22:24)
[2017-04-04] MEDS: CALCIUM ACETATE 667 MG CAP PO SCH ×3 (08:58→17:03)
[2017-04-04] MEDS: CINACALCET 30 MG TAB PO SCH (08:58)
[2017-04-04] MEDS: SEVELAMER 800 MG TAB PO SCH ×3 (08:58→17:03)
--- NOTE | 2017-04-04 11:11 | PN ---
Date/Time of Note Date/Time of Note DATE: 04/04/17 TIME: 11:10 Assessment/Plan VTE Prophylaxis VTE Prophylaxis Intervention: other Lines/Catheters [facility] Saline Lock Urinary Cath still in place: No Assessment/Plan Chief Complaint/Hosp Course -Multiple T12 osseous lesions per MRI, status post biopsy of right iliac bone by radiology, follow-up on path. Dr. Jc is following in oncology consultation. -Abdominal pain, continue morphine for pain and Zofran as needed for nausea. -Right ovarian cystic lesion per MRI, No evidence of torsion. Tumor markers not elevated. Diagnostic laparoscopy and possible ovarian cystectomy is recommended. POWER WHEELCHAIR MECHANIC is following. -End-stage renal disease, patient had a last hemodialysis yesterday. Dr. Silverio is following in nephrology consultation. -Secondary hyperparathyroidism of renal origin, s/p partial left thyroid lobectomy, left upper and lower parathyroidectomy in [place] [address] Morales. Per discussion with patient's lay brother in our nephrology colleague patient will undergo surgery as an outpatient. Discussed with Dr. Morales, if there is no urgency patient will follow up with ENT surgeon as an outpatient. -Anemia Problems: Subjective 24 Hr Interval Summary Free Text/Dictation Patient still complains of pain in abdomen Exam/Review of Systems Vital Signs Vitals Vital Signs Date Time Temp Pulse Resp B/P Pulse Ox O2 Delivery O2 Flow Rate FiO2 04/04/17 10:21 103 120/61 04/04/17 07:39 98.6 18 97 04/01/17 17:07 Room Air Intake and Output 04/03/17 04/03/17 04/04/17 14:59 22:59 06:59 Intake Total 1220 ml 350 ml Output Total 4500 ml Balance -3280 ml 350 ml Exam Constitutional: well developed Head: atraumatic, normocephalic Neck: supple Cardiovascular: regular rate and rhythm Gastrointestinal: non-tender, soft Extremities: normal pulses Results Result Diagram: 04/03/17 17504/03/171755 Results 24 hrs Laboratory Tests Test 04/03/17 17:21 04/03/17 17:23 04/03/17 17:56 Bedside Glucose 173 Blood Gas Specimen Source Blood arterial Arterial Blood Date Drawn 04/03/2017 5:28:34 PM Arterial Blood pH (Temp corrected) 7.626 *H Arterial Blood pCO2 (Temp correct) 20.1 L Arterial Blood pO2 (Temp corrected) 184.9 H Arterial Blood HCO3 20.5 L Arterial Blood Base Excess 0.8 Arterial Blood Oxygen Saturation 98.8 H Benitez Test ACCEPTAB Arterial Blood Gas Puncture Site Right Radial Arterial Blood Carboxyhemoglobin 0.2 Arterial Blood Methemoglobin 0.3 Blood Gas A-a O2 Differential 508.0 H Oxyhemoglobin Percent 98.3 Total Hemoglobin 10.9 L Blood Gas Temperature 37.0 Blood Gas Actual Respiration Rate 25 Blood Gas Modality MASK - NRB FiO2 100.0 Blood Gas Critical Value Read Back L DREW RN Blood Gas Notified Whom Bro WREN BANQUET LINE COOK Blood Gas Notified Time 04/03/2017 5:41:33 PM White Blood Count 10.4 # Red Blood Count 2.76 L Hemoglobin 9.5 L Hematocrit 27.2 L Mean Corpuscular Volume 98.6 Mean Corpuscular Hemoglobin 34.4 H Mean Corpuscular Hemoglobin Concent 34.9 Red Cell Distribution Width 14.5 Platelet Count 213 # Mean Platelet Volume 10.6 H Neutrophils % 87.5 H Lymphocytes % 9.0 L Monocytes % 3.0 Eosinophils % 0.0 Basophils % 0.1 Nucleated Red Blood Cells % 0.0 Neutrophils # 9.1 H Lymphocytes # 0.9 Monocytes # 0.3 Eosinophils # 0.0 Basophils # 0.0 Nucleated Red Blood Cells # 0.0 Sodium Level 137 Potassium Level 3.3 #L Chloride Level 92 L Carbon Dioxide Level 23 Anion Gap 25 H Blood Urea Nitrogen 39 #H Creatinine 4.75 #H Glucose Level 202 Lactic Acid Level 4.0 *H Calcium Level 10.2 Total Bilirubin 0.1 L Direct Bilirubin 0.00 Indirect Bilirubin 0.1 Aspartate Amino Transf (AST/SGOT) 21 Alanine Aminotransferase (ALT/SGPT) 23 Alkaline Phosphatase 1204 H Total Protein 8.0 Albumin 4.9 Globulin 3.10 Albumin/Globulin Ratio 1.58 Medications Medications Current Medications Morphine Sulfate (morphine) 2 mg Q4H PRN IV pain 7-10 Last administered on 10:24; Admin Dose 2 MG; Start 03/23/17 at 18:00 Cinacalcet (Sensipar) 90 mg DAILY PO Last administered on 04/04/17 08:58; Admin Dose 90 MG; Start 03/23/17 at 21:00 Acetaminophen (Tylenol Tab) 650 mg Q6H PRN PO PAIN AND OR ELEVATED TEMP Last administered on 03/29/17 18:54; Admin Dose 650 MG; Start 03/23/17 at 23:00 Ondansetron HCl (Zofran Inj) 4 mg Q6H PRN IV NAUSEA AND/OR VOMITING; Start at 23:00 Diphenhydramine HCl (Benadryl) 50 mg Q6H PRN IV itching Last administered on 10:24; Admin Dose 50 MG; Start 03/24/17 at 06:00 Clotrimazole (Clotrim 1% Vaginal Cr) 1 applic HS VAG Last administered on 21:00; Admin Dose 1 APPLIC; Start 03/24/17 at 21:00 Acetaminophen/ Hydrocodone Bitart ([place] (5/325)) 1 tab Q4H PRN NGT PAIN LEVEL 4-6 Last administered on 04/03/17 17:25; Admin Dose 1 TAB; Start 03/25/17 at 18:00 ANGELY PANG Apr 04, 2017 11:11
--- NOTE | 2017-04-04 19:12 | CONS ---
Date/Time of Note Date/Time of Note DATE: 04/04/17 TIME: 19:12 Assessment/Plan Assessment/Plan Additional Assessment/Plan 31 yo Female with 1) Abdominal pain 2) Left ovarian mass 3) End-stage renal disease 4) MBD Secondary hyperparathyroidism , s/p partial left thyroid lobectomy, left upper and lower parathyroidectomy in [place] [address] Morales. 5) Anemia Chronic Disease 6) Hyperkalemia 7) Lytic lesion bone, S/p Bx . HD tomorrow Cont Current Rx and plan Low K renal diet. Consultation Date/Type/Reason Admit Date/Time Mar 23, 2017 at 10:28 Type of Consultation: Renal Referring Provider: LUANNE WALTER MD 24 HR Interval Summary Constitutional: No requiring O2 Exam/Review of Systems Vital Signs Vitals Vital Signs Date Time Temp Pulse Resp B/P Pulse Ox O2 Delivery O2 Flow Rate FiO2 04/04/17 16:33 92 113/65 04/04/17 15:50 98.0 18 97 04/01/17 17:07 Room Air Intake and Output 04/03/17 04/03/17 04/04/17 15:00 23:00 07:00 Intake Total 1220 ml 350 ml Output Total 4500 ml Balance -3280 ml 350 ml Exam Constitutional: No distress ENMT: mucosa pink and moist Respiratory: No crackles/rales Cardiovascular: regular rate and rhythm, No edema Gastrointestinal: non-tender, soft 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: ENGINEERING ANALYST II-XII intact, nl mental status Results Result Diagram: 04/03/17 1756 04/03/17 1756 Medications Medications Current Medications Morphine Sulfate (morphine) 2 mg Q4H PRN IV pain 7-10 Last administered on 16:35; Admin Dose 2 MG; Start 03/23/17 at 18:00 Cinacalcet (Sensipar) 90 mg DAILY PO Last administered on 04/04/17 08:58; Admin Dose 90 MG; Start 03/23/17 at 21:00 Acetaminophen (Tylenol Tab) 650 mg Q6H PRN PO PAIN AND OR ELEVATED TEMP Last administered on 03/29/17 18:54; Admin Dose 650 MG; Start 03/23/17 at 23:00 Ondansetron HCl (Zofran Inj) 4 mg Q6H PRN IV NAUSEA AND/OR VOMITING; Start at 23:00 Diphenhydramine HCl (Benadryl) 50 mg Q6H PRN IV itching Last administered on 16:34; Admin Dose 50 MG; Start 03/24/17 at 06:00 Clotrimazole (Clotrim 1% Vaginal Cr) 1 applic HS VAG Last administered on 21:00; Admin Dose 1 APPLIC; Start 03/24/17 at 21:00 Acetaminophen/ Hydrocodone Bitart ([place] (5/325)) 1 tab Q4H PRN NGT PAIN LEVEL 4-6 Last administered on 04/03/17 17:25; Admin Dose 1 TAB; Start 03/25/17 at 18:00 JUANJO TATUM MD Apr 04, 2017 19:12
[2017-04-04] MEDS: CLOTRIMAZOLE 1% 45 GM VAG CR VAG SCH (21:00)
[2017-04-05] VITALS (19 sets, daily range): BP systolic 81–117; BP diastolic 48–60; PULSE 84–115; RESP 16–18
[2017-04-05] MEDS: DIPHENHYDRAMINE 50 MG INJ IV PRN ×4 (04:24→23:14)
[2017-04-05] MEDS: morphine 2 MG INJ IV PRN ×4 (04:25→23:15)
[2017-04-05] MEDS: CALCIUM ACETATE 667 MG CAP PO SCH ×3 (07:55→18:05)
[2017-04-05] MEDS: SEVELAMER 800 MG TAB PO SCH ×3 (07:55→18:04)
[2017-04-05] MEDS: CINACALCET 30 MG TAB PO SCH (09:26)
--- NOTE | 2017-04-05 10:52 | CONS ---
Date/Time of Note Date/Time of Note DATE: 04/05/17 TIME: 10:45 Assessment/Plan Assessment/Plan Chief Complaint/Hosp Course #-Multiple osseous lesions seen on Pelvic MRI -pt is s/p bone bx of ytic lesion of the right iliac bone posteriorly. bx revealed cystic contents but identifiable malignancy -I ahve spoken to nephrology in detail. this may represent a "brown tumor" that can be seen in cases of severe hyperparathyroidism -SPEP and myeloma labs are negative making monoclonal gammopathy unlikely -will order bone scan at this time -if bone scan is negative, I would recommend a parathyroidectomy and serial imaging of these lesions. if they begin to grow after parathyroidectomy, we can consider re biopsy at that time #Right ovarian cystic lesion per MRI, -Tumor markers not elevated. -pt has been evaluated by BLOCK SORTER -Diagnostic laparoscopy and possible ovarian cystectomy is recommended. -continue to serially monitor these lesions with imaging . #End-stage renal disease, -patient had a last hemodialysis yesterday. -continue HD per nephrology #Secondary hyperparathyroidism of renal origin, -s/p partial left thyroid lobectomy, left upper and lower parathyroidectomy in November [address] Morales. -pt will likely need full parathyroidectomy as mentioned above #Anemia -likely 2/2 to underlying CKD -anemia workup unremarkable for iron deficiency, vitamin b12/foalte deficiency, hemolysis or myeloma -if ok with nephrology, would start procrit 5000 with each dialysis Problems: Consultation Date/Type/Reason Admit Date/Time Mar 23, 2017 at 10:28 Initial Consult Date 03/31/17 Type of Consultation: Oncology Reason for Consultation lytic lesions, ovarian tumor Referring Provider: LUANNE WALTER MD 24 HR Interval Summary Free Text/Dictation pt continues on dialysis. feels well Exam/Review of Systems Vital Signs Vitals Vital Signs Date Time Temp Pulse Resp B/P Pulse Ox O2 Delivery O2 Flow Rate FiO2 04/05/17 08:20 89 04/05/17 07:33 98.2 18 99/55 95 04/01/17 17:07 Room Air Intake and Output 04/04/17 04/04/17 04/05/17 15:00 23:00 07:00 Intake Total 500 ml Balance 500 ml Exam Constitutional: alert Psych: no complaints Head: normocephalic Eyes: nl conjunctiva ENMT: nl external ears & nose Neck: non-tender, supple Respiratory: clear to auscultation, normal air movement Cardiovascular: regular rate and rhythm Gastrointestinal: soft Musculoskeletal: nl extremities to inspection, nl gait and stance Extremities: normal pulses Results Result Diagram: 04/03/17175504/03/171755 Medications Medications Current Medications Morphine Sulfate (morphine) 2 mg Q4H PRN IV pain 7-10 Last administered on 09:31; Admin Dose 2 MG; Start 03/23/17 at 18:00 Cinacalcet (Sensipar) 90 mg DAILY PO Last administered on 04/05/17 09:26; Admin Dose 90 MG; Start 03/23/17 at 21:00 Acetaminophen (Tylenol Tab) 650 mg Q6H PRN PO PAIN AND OR ELEVATED TEMP Last administered on 03/29/17 18:54; Admin Dose 650 MG; Start 03/23/17 at 23:00 Ondansetron HCl (Zofran Inj) 4 mg Q6H PRN IV NAUSEA AND/OR VOMITING; Start at 23:00 Diphenhydramine HCl (Benadryl) 50 mg Q6H PRN IV itching Last administered on 04:24; Admin Dose 50 MG; Start 03/24/17 at 06:00 Clotrimazole (Clotrim 1% Vaginal Cr) 1 applic HS VAG Last administered on 21:00; Admin Dose 1 APPLIC; Start 03/24/17 at 21:00 Acetaminophen/ Hydrocodone Bitart ([place] (5/325)) 1 tab Q4H PRN NGT PAIN LEVEL 4-6 Last administered on 04/03/17 17:25; Admin Dose 1 TAB; Start 03/25/17 at 18:00 MICHELLE MOJICA M.D. Apr 05, 2017 10:52
[2017-04-05] MEDS ORDERED: EPOETIN 3000 UNITS/1 ML INJ (ESRD) SC SCH (11:00)
--- NOTE | 2017-04-05 17:00 | PN ---
Date/Time of Note Date/Time of Note DATE: 04/05/17 TIME: 16:58 Assessment/Plan VTE Prophylaxis VTE Prophylaxis Intervention: SCD's Lines/Catheters [facility] Saline Lock Urinary Cath still in place: No Assessment/Plan Chief Complaint/Hosp Course Patient is undergoing hemodialysis, remains hemodynamically stable. Assessment/Plan -Multiple T12 osseous lesions per MRI, status post biopsy of right iliac bone by radiology, possibly "brown tumor". Dr. Jc is following in oncology consultation. -Abdominal pain, continue morphine for pain and Zofran as needed for nausea. -Right ovarian cystic lesion per MRI, No evidence of torsion. Tumor markers not elevated. Diagnostic laparoscopy and possible ovarian cystectomy is recommended. SALES SERVICE MANAGER is following. -End-stage renal disease, patient had a last hemodialysis yesterday. Dr. Silverio is following in nephrology consultation. -Secondary hyperparathyroidism of renal origin, s/p partial left thyroid lobectomy, left upper and lower parathyroidectomy in November [address] Morales. Per discussion with patient's slate roofer helper in our nephrology colleague patient will undergo surgery as an outpatient. Discussed with Dr. Morales, if there is no urgency patient will follow up with ENT surgeon as an outpatient. -Anemia Further recommendations based on clinical course. Plan of care discussed with Dr. Turner. Problems: Exam/Review of Systems Vital Signs Vitals Vital Signs Date Time Temp Pulse Resp B/P Pulse Ox O2 Delivery O2 Flow Rate FiO2 04/05/17 16:15 103 04/05/17 15:46 98.1 18 81/50 100 04/01/17 17:07 Room Air Intake and Output 04/04/17 04/04/17 04/05/17 14:59 22:59 06:59 Intake Total 500 ml Balance 500 ml Exam Constitutional: alert, oriented Respiratory: normal air movement Cardiovascular: nl pulses Gastrointestinal: soft, tender Musculoskeletal: nl extremities to inspection Extremities: normal pulses, other (Left upper extremity fistula) Results Result Diagram: 04/03/17 1756 04/03/17 175 Medications Medications Current Medications Morphine Sulfate (morphine) 2 mg Q4H PRN IV pain 7-10 Last administered on t 15:36; Admin Dose 2 MG; Start 03/23/17 at 18:00 Cinacalcet (Sensipar) 90 mg DAILY PO Last administered on 04/05/17 09:26; Admin Dose 90 MG; Start 03/23/17 at 21:00 Acetaminophen (Tylenol Tab) 650 mg Q6H PRN PO PAIN AND OR ELEVATED TEMP Last administered on 03/29/17 18:54; Admin Dose 650 MG; Start 03/23/17 at 23:00 Ondansetron HCl (Zofran Inj) 4 mg Q6H PRN IV NAUSEA AND/OR VOMITING; Start at 23:00 Diphenhydramine HCl (Benadryl) 50 mg Q6H PRN IV itching Last administered on 16:45; Admin Dose 50 MG; Start 03/24/17 at 06:00 Clotrimazole (Clotrim 1% Vaginal Cr) 1 applic HS VAG Last administered on 21:00; Admin Dose 1 APPLIC; Start 03/24/17 at 21:00 Acetaminophen/ Hydrocodone Bitart ([place] (5/325)) 1 tab Q4H PRN NGT PAIN LEVEL 4-6 Last administered on 04/03/17 17:25; Admin Dose 1 TAB; Start 03/25/17 at 18:00 ERICK ROBERTSON Apr 05, 2017 17:00
--- NOTE | 2017-04-05 17:34 | CONS ---
Date/Time of Note Date/Time of Note DATE: 04/05/17 TIME: 17:33 Assessment/Plan Assessment/Plan Additional Assessment/Plan 31 yo Female with 1) Abdominal pain 2) Left ovarian mass 3) End-stage renal disease 4) MBD Secondary hyperparathyroidism , s/p partial left thyroid lobectomy, left upper and lower parathyroidectomy in November [address] Morales. 5) Anemia Chronic Disease 6) Hyperkalemia 7) Lytic lesion bone, S/p Bx . S/p HD MWF Hyperkalemia resolved Consultation Date/Type/Reason Admit Date/Time Mar 23, 2017 at 10:28 Type of Consultation: renal Referring Provider: LUANNE WALTER MD 24 HR Interval Summary Free Text/Dictation S/p HD, Tolerated procedure Exam/Review of Systems Vital Signs Vitals Vital Signs Date Time Temp Pulse Resp B/P Pulse Ox O2 Delivery O2 Flow Rate FiO2 04/05/17 16:15 103 04/05/17 15:46 98.1 18 81/50 100 04/01/17 17:07 Room Air Intake and Output 04/04/17 04/04/17 04/05/17 15:00 23:00 07:00 Intake Total 500 ml Balance 500 ml Exam Constitutional: No distress ENMT: mucosa pink and moist Respiratory: No labored breathing Cardiovascular: No edema Gastrointestinal: soft Extremities: No edema 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: TRAFFIC SIGN ERECTION SUPERVISOR II-XII intact, No lethargic Skin: No diaphoresis Results Result Diagram: 04/03/17 1756 04/03/17 1756 Medications Medications Current Medications Morphine Sulfate (morphine) 2 mg Q4H PRN IV pain 7-10 Last administered on 15:36; Admin Dose 2 MG; Start 03/23/17 at 18:00 Cinacalcet (Sensipar) 90 mg DAILY PO Last administered on 04/05/17 09:26; Admin Dose 90 MG; Start 03/23/17 at 21:00 Acetaminophen (Tylenol Tab) 650 mg Q6H PRN PO PAIN AND OR ELEVATED TEMP Last administered on 03/29/17 18:54; Admin Dose 650 MG; Start 03/23/17 at 23:00 Ondansetron HCl (Zofran Inj) 4 mg Q6H PRN IV NAUSEA AND/OR VOMITING; Start 11/ 28/17 at 23:00 Diphenhydramine HCl (Benadryl) 50 mg Q6H PRN IV itching Last administered on 16:45; Admin Dose 50 MG; Start 03/24/17 at 06:00 Clotrimazole (Clotrim 1% Vaginal Cr) 1 applic HS VAG Last administered on 21:00; Admin Dose 1 APPLIC; Start 03/24/17 at 21:00 Acetaminophen/ Hydrocodone Bitart ([place] (5/325)) 1 tab Q4H PRN NGT PAIN LEVEL 4-6 Last administered on 04/03/17 17:25; Admin Dose 1 TAB; Start 03/25/17 at 18:00 JUANJO TATUM MD Apr 05, 2017 17:34
[2017-04-05] MEDS: CLOTRIMAZOLE 1% 45 GM VAG CR VAG SCH (23:14)
[2017-04-06] VITALS (13 sets, daily range): BP systolic 84–106; BP diastolic 44–58; PULSE 70–102; RESP 18–20
[2017-04-06] MEDS: DIPHENHYDRAMINE 50 MG INJ IV PRN ×4 (05:17→23:11)
[2017-04-06] MEDS: morphine 2 MG INJ IV PRN ×4 (05:18→21:10)
--- NOTE | 2017-04-06 05:29 | PN ---
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 Further ortho treatment will be occasional steroid injections on p.r.n. basis for symptomatic relief. Knee immobilizer, which she likes to wear, can be harmful because it may increase the friction between the patella and underlying femur, and also because it can make the muscles and tendons in the left lower extremity atrophied and cause instability of the patella. Further ortho follow-up will be on p.r.n. basis. Dictated By: In Stephanie Nagy MD /facundo/dada /Document#: [id number]
[2017-04-06 07:09] LABS: BASOPHILS % 0.5 % (0.0-2.0); EOSINOPHILS # 0.1 10^3/ul (0.0-0.5); EOSINOPHILS % 0.8 % (0.0-7.0); HEMATOCRIT 26.4 % (37.0-47.0); HEMOGLOBIN 8.6 g/dl (12.0-16.0); LYMPHOCYTES # 1.2 10^3/ul (0.8-2.9); MEAN CORPUSCULAR HGB CONC 32.6 g/dl (32.0-37.0); MEAN CORPUSCULAR VOLUME 104.3 fl (82.0-101.0); MEAN PLATELET VOLUME 10.4 fl (7.4-10.4); MONOCYTE # 0.4 10^3/ul (0.3-0.9); MONOCYTES % 6.9 % (0.0-11.0); NEUTROPHIL # 4.4 10^3/ul (1.6-7.5); NEUTROPHILS % 71.3 % (39.0-77.0); PLATELET COUNT 177 10^3/UL (140-415); RED BLOOD COUNT 2.53 10^6/ul (4.20-5.40); RED CELL DISTRIBUTION WIDTH 14.8 % (11.5-14.5); WHITE BLOOD COUNT 6.1 10^3/ul (4.8-10.8)
[2017-04-06 07:47] LABS: CALCIUM 10.1 mg/dl (8.4-10.2); CREATININE 7.28 mg/dl (0.44-1.00); POTASSIUM 5.2 mmol/L (3.5-5.1)
[2017-04-06] MEDS: CALCIUM ACETATE 667 MG CAP PO SCH ×3 (08:24→17:11)
[2017-04-06] MEDS: SEVELAMER 800 MG TAB PO SCH ×3 (08:25→17:11)
[2017-04-06] MEDS: CINACALCET 30 MG TAB PO SCH (08:25)
--- NOTE | 2017-04-06 10:09 | CONS ---
Date/Time of Note Date/Time of Note DATE: 04/06/17 TIME: 10:07 Assessment/Plan Assessment/Plan Chief Complaint/Hosp Course #-Multiple osseous lesions seen on Pelvic MRI -pt is s/p bone bx of ytic lesion of the right iliac bone posteriorly. bx revealed cystic contents but identifiable malignancy -I have spoken to nephrology in detail. this may represent a "brown tumor" that can be seen in cases of severe hyperparathyroidism -SPEP and myeloma labs are negative making monoclonal gammopathy unlikely -will order bone scan at this time.to be done tomorrow after HD -if bone scan is negative, I would recommend a parathyroidectomy and serial imaging of these lesions. if they begin to grow after parathyroidectomy, we can consider re biopsy at that time . #Right ovarian cystic lesion per MRI, -Tumor markers not elevated. -pt has been evaluated by CHILI PEPPER GRINDER -Diagnostic laparoscopy and possible ovarian cystectomy is recommended. -continue to serially monitor these lesions with imaging . #End-stage renal disease, -patient had a last hemodialysis yesterday. -continue HD per nephrology #Secondary hyperparathyroidism of renal origin, -s/p partial left thyroid lobectomy, left upper and lower parathyroidectomy in November [address] Morales. -pt will likely need full parathyroidectomy as mentioned above #Anemia -likely 2/2 to underlying CKD -anemia workup unremarkable for iron deficiency, vitamin b12/foalte deficiency, hemolysis or myeloma -if ok with nephrology, would start procrit 5000 with each dialysis Problems: Consultation Date/Type/Reason Admit Date/Time Mar 23, 2017 at 10:28 Initial Consult Date 03/31/17 Type of Consultation: hematology Reason for Consultation lytic bone lesions Referring Provider: LUANNE WALTER MD 24 HR Interval Summary Free Text/Dictation pt received steroids injection into the Left Knee Exam/Review of Systems Vital Signs Vitals Vital Signs Date Time Temp Pulse Resp B/P Pulse Ox O2 Delivery O2 Flow Rate FiO2 04/06/17 08:20 79 04/06/17 08:04 98.1 20 84/44 98 Intake and Output 04/05/17 04/05/17 04/06/17 15:00 23:00 07:00 Intake Total 700 ml 600 ml 500 ml Output Total 4000 ml Balance -3300 ml 600 ml 500 ml Exam Constitutional: alert, oriented Psych: no complaints Eyes: nl conjunctiva ENMT: nl external ears & nose Neck: jvd, non-tender, supple Respiratory: clear to auscultation, normal air movement Cardiovascular: regular rate and rhythm Gastrointestinal: soft Musculoskeletal: nl extremities to inspection Extremities: normal pulses Results Result Diagram: 04/06/17 0643 04/06/17 0643 Results 24 hrs Laboratory Tests Test 04/06/17 06:43 White Blood Count 6.1 # Red Blood Count 2.53 L Hemoglobin 8.6 L Hematocrit 26.4 L Mean Corpuscular Volume 104.3 H Mean Corpuscular Hemoglobin 34.0 H Mean Corpuscular Hemoglobin Concent 32.6 Red Cell Distribution Width 14.8 H Platelet Count 177 Mean Platelet Volume 10.4 Neutrophils % 71.3 Lymphocytes % 20.0 Monocytes % 6.9 Eosinophils % 0.8 Basophils % 0.5 Nucleated Red Blood Cells % 0.0 Neutrophils # 4.4 Lymphocytes # 1.2 Monocytes # 0.4 Eosinophils # 0.1 Basophils # 0.0 Nucleated Red Blood Cells # 0.0 Sodium Level 142 Potassium Level 5.2 H Chloride Level 99 Carbon Dioxide Level 26 Anion Gap 22 H Blood Urea Nitrogen 62 H Creatinine 7.28 H Glucose Level 70 Calcium Level 10.1 Medications Medications Current Medications Morphine Sulfate (morphine) 2 mg Q4H PRN IV pain 7-10 Last administered on 09:30; Admin Dose 2 MG; Start 03/23/17 at 18:00 Cinacalcet (Sensipar) 90 mg DAILY PO Last administered on 04/06/17 08:25; Admin Dose 90 MG; Start 03/23/17 at 21:00 Acetaminophen (Tylenol Tab) 650 mg Q6H PRN PO PAIN AND OR ELEVATED TEMP Last administered on 03/29/17 18:54; Admin Dose 650 MG; Start 03/23/17 at 23:00 Ondansetron HCl (Zofran Inj) 4 mg Q6H PRN IV NAUSEA AND/OR VOMITING; Start at 23:00 Diphenhydramine HCl (Benadryl) 50 mg Q6H PRN IV itching Last administered on 05:17; Admin Dose 50 MG; Start 03/24/17 at 06:00 Clotrimazole (Clotrim 1% Vaginal Cr) 1 applic HS VAG Last administered on 04/05 23:14; Admin Dose 1 APPLIC; Start 03/24/17 at 21:00 Acetaminophen/ Hydrocodone Bitart ([place] (5/325)) 1 tab Q4H PRN NGT PAIN LEVEL 4-6 Last administered on 04/03/17 17:25; Admin Dose 1 TAB; Start 03/25/17 at 18:00 MICHELLE MOJICA M.D. Apr 06, 2017 10:09
--- NOTE | 2017-04-06 15:15 | RADRPT ---
PROCEDURE: Whole body bone scan study CLINICAL INDICATION: 31 -year-old patient with diffuse bony sclerosis on the previous CT scan, for evaluation for skeletal metastases. TECHNIQUE: Following the intravenous injection of 24.8 mCi of Tc-99m MDP, whole body anterior and posterior planar images were obtained . COMPARISON: CT scan of the abdomen and pelvis dated April 03, 2017. FINDINGS: Diffusely mildly increased homogeneous distribution of the radionuclide is noted throughout the enti re skeleton, including increased activity in the calvarium, facial bones, mandible and large joints, with an exception of a focus of reduced activity noted in the right sacroiliac joint corresponding to a lytic bony lesion on the CT scan dated April 03, 2017. The findings correspond to diffuse scl erotic bony lesions and a lucency in the right sacroiliac joint on the CT scan of the abdomen and pe lvis dated April 03, 2017. No definite abnormal areas of increased activity or asymmetries are visualized in the study and dist ribution of radionuclide is homogeneous in the skull, spine, rib cages, sternum, pelvis and visualiz ed portions of the upper and lower extremities. The kidneys are not visualized and no physiologic uptake is seen within the bladder. IMPRESSION: Diffusely increased homogeneous distribution of the tracer throughout the skeleton and a photopenic area in the right sacroiliac joint. The scintigraphic pattern of the abnormalities may be seen in as sociation with hyperparathyroidism. However, skeletal metastases cannot be ruled out. RPTAT: HH .Cynthia Nash MD, Date Time Electronically viewed and signed by .Cynthia Nash MD, MD on 04/06/2017 15:15 .L/
--- NOTE | 2017-04-06 16:40 | PN ---
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 Dr. Jc is following in oncology consultation. 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 Dr. Nagy is following in orthopedic surgery consultation. Status post steroid injection into the left knee. -Abdominal pain, continue morphine for pain and Zofran as needed for nausea. -Right ovarian cystic lesion per MRI, No evidence of torsion. Tumor markers not elevated. Diagnostic laparoscopy and possible ovarian cystectomy is recommended. LITIGATION PARALEGAL is following. -End-stage renal disease, patient had a last hemodialysis yesterday. is following in nephrology consultation. -Secondary hyperparathyroidism of renal origin, s/p partial left thyroid lobectomy, left upper and lower parathyroidectomy [place] [address] Morales. Per discussion with patient's suspender maker in our nephrology colleague patient will undergo surgery as an outpatient. Discussed with Dr. Morales, if there is no urgency patient will follow up with ENT surgeon as an outpatient. -Anemia of chronic disease, started on Epogen Further recommendations based on clinical course. Plan of care discussed with Dr. Turner. Problems: Exam/Review of Systems Vital Signs Vitals Vital Signs Date Time Temp Pulse Resp B/P Pulse Ox O2 Delivery O2 Flow Rate FiO2 04/06/17 16:19 102 04/06/17 16:00 97.9 20 92/45 91 Intake and Output 04/05/17 04/05/17 04/06/17 15:00 23:00 07:00 Intake Total 700 ml 600 ml 500 ml Output Total 4000 ml Balance -3300 ml 600 ml 500 ml Exam Constitutional: alert, oriented Respiratory: normal air movement Cardiovascular: nl pulses Gastrointestinal: soft, tender Musculoskeletal: nl extremities to inspection Extremities: normal pulses, other (Left upper extremity fistula) Results Result Diagram: 04/06/17 0643 04/06/17 0643 Results 24 hrs Laboratory Tests Test 04/06/17 06:43 White Blood Count 6.1 # Red Blood Count 2.53 L Hemoglobin 8.6 L Hematocrit 26.4 L Mean Corpuscular Volume 104.3 H Mean Corpuscular Hemoglobin 34.0 H Mean Corpuscular Hemoglobin Concent 32.6 Red Cell Distribution Width 14.8 H Platelet Count 177 Mean Platelet Volume 10.4 Neutrophils % 71.3 Lymphocytes % 20.0 Monocytes % 6.9 Eosinophils % 0.8 Basophils % 0.5 Nucleated Red Blood Cells % 0.0 Neutrophils # 4.4 Lymphocytes # 1.2 Monocytes # 0.4 Eosinophils # 0.1 Basophils # 0.0 Nucleated Red Blood Cells # 0.0 Sodium Level 142 Potassium Level 5.2 H Chloride Level 99 Carbon Dioxide Level 26 Anion Gap 22 H Blood Urea Nitrogen 62 H Creatinine 7.28 H Glucose Level 70 Calcium Level 10.1 Medications Medications Current Medications Morphine Sulfate (morphine) 2 mg Q4H PRN IV pain 7-10 Last administered on 15:08; Admin Dose 2 MG; Start 03/23/17 at 18:00 Cinacalcet (Sensipar) 90 mg DAILY PO Last administered on 04/06/17 08:25; Admin Dose 90 MG; Start 03/23/17 at 21:00 Acetaminophen (Tylenol Tab) 650 mg Q6H PRN PO PAIN AND OR ELEVATED TEMP Last administered on 03/29/17 18:54; Admin Dose 650 MG; Start 03/23/17 at 23:00 Ondansetron HCl (Zofran Inj) 4 mg Q6H PRN IV NAUSEA AND/OR VOMITING; Start at 23:00 Diphenhydramine HCl (Benadryl) 50 mg Q6H PRN IV itching Last administered on 11:17; Admin Dose 50 MG; Start 03/24/17 at 06:00 Clotrimazole (Clotrim 1% Vaginal Cr) 1 applic HS VAG Last administered on 04/05 23:14; Admin Dose 1 APPLIC; Start 03/24/17 at 21:00 Acetaminophen/ Hydrocodone Bitart ([place] (5/325)) 1 tab Q4H PRN NGT PAIN LEVEL 4-6 Last administered on 04/03/17 17:25; Admin Dose 1 TAB; Start 03/25/17 at 18:00 ERICK ROBERTSON Apr 06, 2017 16:40
--- NOTE | 2017-04-06 20:53 | CONS ---
Date/Time of Note Date/Time of Note DATE: 04/06/17 TIME: 20:51 Assessment/Plan Assessment/Plan Additional Assessment/Plan 31 yo Female with 1) Abdominal pain 2) Left ovarian mass 3) End-stage renal disease 4) MBD Secondary hyperparathyroidism , s/p partial left thyroid lobectomy, left upper and lower parathyroidectomy in [place] [address] Morales. 5) Anemia Chronic Disease 6) Hyperkalemia 7) Lytic lesion bone, S/p Bx, ? Brown Tumor HD MWF Next HD tomorrow Pt will benefit from parathyroidectomy Bone scan reviewed Discussed case with Hematology/Oncology. Consultation Date/Type/Reason Admit Date/Time Mar 23, 2017 at 10:28 Type of Consultation: Renal Referring Provider: LUANNE WALTER MD 24 HR Interval Summary Constitutional: No requiring O2 Exam/Review of Systems Vital Signs Vitals Vital Signs Date Time Temp Pulse Resp B/P Pulse Ox O2 Delivery O2 Flow Rate FiO2 04/06/17 20:16 98.1 116 18 98/53 98 Intake and Output 04/05/17 04/05/17 04/06/17 15:00 23:00 07:00 Intake Total 700 ml 600 ml 500 ml Output Total 4000 ml Balance -3300 ml 600 ml 500 ml Exam Constitutional: No distress ENMT: mucosa pink and moist Neck: No jvd Respiratory: clear to auscultation Cardiovascular: regular rate and rhythm, No edema Gastrointestinal: soft 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: DEICER ELEMENT WINDER MACHINE II-XII intact, nl mental status Skin: No diaphoresis Results Result Diagram: 04/06/17 0643 04/06/17 0643 Results 24 hrs Laboratory Tests Test 04/06/17 06:43 White Blood Count 6.1 # Red Blood Count 2.53 L Hemoglobin 8.6 L Hematocrit 26.4 L Mean Corpuscular Volume 104.3 H Mean Corpuscular Hemoglobin 34.0 H Mean Corpuscular Hemoglobin Concent 32.6 Red Cell Distribution Width 14.8 H Platelet Count 177 Mean Platelet Volume 10.4 Neutrophils % 71.3 Lymphocytes % 20.0 Monocytes % 6.9 Eosinophils % 0.8 Basophils % 0.5 Nucleated Red Blood Cells % 0.0 Neutrophils # 4.4 Lymphocytes # 1.2 Monocytes # 0.4 Eosinophils # 0.1 Basophils # 0.0 Nucleated Red Blood Cells # 0.0 Sodium Level 142 Potassium Level 5.2 H Chloride Level 99 Carbon Dioxide Level 26 Anion Gap 22 H Blood Urea Nitrogen 62 H Creatinine 7.28 H Glucose Level 70 Calcium Level 10.1 Medications Medications Current Medications Morphine Sulfate (morphine) 2 mg Q4H PRN IV pain 7-10 Last administered on 15:08; Admin Dose 2 MG; Start 03/23/17 at 18:00 Cinacalcet (Sensipar) 90 mg DAILY PO Last administered on 04/06/17 08:25; Admin Dose 90 MG; Start 03/23/17 at 21:00 Acetaminophen (Tylenol Tab) 650 mg Q6H PRN PO PAIN AND OR ELEVATED TEMP Last administered on 03/29/17 18:54; Admin Dose 650 MG; Start 03/23/17 at 23:00 Ondansetron HCl (Zofran Inj) 4 mg Q6H PRN IV NAUSEA AND/OR VOMITING; Start at 23:00 Diphenhydramine HCl (Benadryl) 50 mg Q6H PRN IV itching Last administered on 17:11; Admin Dose 50 MG; Start 03/24/17 at 06:00 Clotrimazole (Clotrim 1% Vaginal Cr) 1 applic HS VAG Last administered on 04/05 23:14; Admin Dose 1 APPLIC; Start 03/24/17 at 21:00 Acetaminophen/ Hydrocodone Bitart ([place] (5/325)) 1 tab Q4H PRN NGT PAIN LEVEL 4-6 Last administered on 04/03/17 17:25; Admin Dose 1 TAB; Start 03/25/17 at 18:00 JUANJO TATUM MD Apr 06, 2017 20:53
[2017-04-06] MEDS: CLOTRIMAZOLE 1% 45 GM VAG CR VAG SCH (21:00)
[2017-04-07] VITALS (13 sets, daily range): BP systolic 84–105; BP diastolic 43–62; PULSE 88–105; RESP 18–20
[2017-04-07] MEDS: morphine 2 MG INJ IV PRN ×4 (01:44→22:10)
[2017-04-07] MEDS: DIPHENHYDRAMINE 50 MG INJ IV PRN ×4 (05:34→23:28)
--- NOTE | 2017-04-07 05:50 | RADRPT ---
PROCEDURE: LUMBAR SPINE - 3 VIEWS CLINICAL INDICATION: 31-year-old female with back pain following trauma. TECHNIQUE: AP, lateral and cone-down lateral view of the lumbar spine were obtained. The images we re reviewed on a PACS workstation. COMPARISON: [place] 04/06/2017; CT 04/03/2017 FINDINGS: The lower thoracic and lumbar vertebral bodies have normal heights and anatomic alignment. There is diffuse sclerotic appearance consistent with renal osteodystrophy. There are small vacuum disc prese nt at T11-12 and T12-L1. There is no evidence for acute fracture or subluxation. There is moderate r etained stool within the colon without an obstructive pattern. IMPRESSION: 1. Renal osteodystrophy with degenerative changes. 2. No plain film radiographic evidence for acute fracture. 3. Retained stool. .Aristeo Villegas MD, Date Time Electronically viewed and signed by .Aristeo Villegas MD, on 04/07/2017 05:50 .M/
[2017-04-07] MEDS: CALCIUM ACETATE 667 MG CAP PO SCH ×3 (08:45→17:25)
[2017-04-07] MEDS: SEVELAMER 800 MG TAB PO SCH ×3 (08:45→17:25)
[2017-04-07] MEDS: CINACALCET 30 MG TAB PO SCH (08:45)
[2017-04-07 09:24] LABS: BASOPHILS % 0.4 % (0.0-2.0); EOSINOPHILS # 0.1 10^3/ul (0.0-0.5); EOSINOPHILS % 1.1 % (0.0-7.0); HEMATOCRIT 23.4 % (37.0-47.0); HEMOGLOBIN 7.8 g/dl (12.0-16.0); LYMPHOCYTES # 1.4 10^3/ul (0.8-2.9); LYMPHOCYTES % 17.7 % (15.0-51.0); MEAN CORPUSCULAR HEMOGLOBIN 33.8 pg (29.0-33.0); MEAN CORPUSCULAR HGB CONC 33.3 g/dl (32.0-37.0); MEAN CORPUSCULAR VOLUME 101.3 fl (82.0-101.0); MEAN PLATELET VOLUME 10.7 fl (7.4-10.4); MONOCYTE # 0.6 10^3/ul (0.3-0.9); MONOCYTES % 7.1 % (0.0-11.0); NEUTROPHIL # 5.9 10^3/ul (1.6-7.5); PLATELET COUNT 149 10^3/UL (140-415); RED BLOOD COUNT 2.31 10^6/ul (4.20-5.40); RED CELL DISTRIBUTION WIDTH 14.9 % (11.5-14.5)
[2017-04-07 09:44] LABS: CALCIUM 9.9 mg/dl (8.4-10.2); CREATININE 10.03 mg/dl (0.44-1.00); POTASSIUM 5.4 mmol/L (3.5-5.1)
--- NOTE | 2017-04-07 09:58 | CONS ---
Date/Time of Note Date/Time of Note DATE: 04/07/17 TIME: 09:56 Assessment/Plan Assessment/Plan Chief Complaint/Hosp Course #-Multiple osseous lesions seen on Pelvic MRI -pt is s/p bone bx of ytic lesion of the right iliac bone posteriorly. bx revealed cystic contents but no identifiable malignancy -I have spoken to nephrology in detail. this may represent a "brown tumor" that can be seen in cases of severe hyperparathyroidism -SPEP and myeloma labs are negative making monoclonal gammopathy unlikely -bone scan is not diagnostic and again reveals the bony lesions that are likely secondary to hyperparathyroidism -I still would recommend a parathyroidectomy and serial imaging of these lesions. it seems patient had 2 parathyroid glands removed. she me benefit from removing all but 1/2 lobe. if they begin to grow after parathyroidectomy, we can consider re biopsy at that time . #Right ovarian cystic lesion per MRI, -Tumor markers not elevated. -pt has been evaluated by [facility] -Diagnostic laparoscopy and possible ovarian cystectomy is recommended. -continue to serially monitor these lesions with imaging . #End-stage renal disease, -patient had a last hemodialysis yesterday. -continue HD per nephrology #Secondary hyperparathyroidism of renal origin, -s/p partial left thyroid lobectomy, left upper and lower parathyroidectomy in [place] [address] Morales. -pt will likely need full parathyroidectomy as mentioned above #Anemia -likely 2/2 to underlying CKD -anemia workup unremarkable for iron deficiency, vitamin b12/foalte deficiency, hemolysis or myeloma -if ok with nephrology, would start procrit 5000 with each dialysis Problems: Consultation Date/Type/Reason Admit Date/Time Mar 23, 2017 at 10:28 Initial Consult Date 03/31/17 Type of Consultation: oncology Reason for Consultation concern for malignancy Referring Provider: LUANNE WALTER MD 24 HR Interval Summary Free Text/Dictation continues on HD. Exam/Review of Systems Vital Signs Vitals Vital Signs Date Time Temp Pulse Resp B/P Pulse Ox O2 Delivery O2 Flow Rate FiO2 04/07/17 08:01 98.1 94 18 105/54 98 Intake and Output 04/06/17 04/06/17 04/07/17 14:59 22:59 06:59 Intake Total 840 ml 400 ml Balance 840 ml 400 ml Exam Constitutional: alert, oriented Psych: no complaints Head: normocephalic Eyes: nl conjunctiva ENMT: nl external ears & nose Neck: non-tender, supple Cardiovascular: regular rate and rhythm Gastrointestinal: soft Musculoskeletal: nl extremities to inspection, nl gait and stance Extremities: normal pulses Results Result Diagram: 04/07/17 0855 04/07/17 0855 Results 24 hrs Laboratory Tests Test 04/07/17 08:55 White Blood Count 8.0 # Red Blood Count 2.31 L Hemoglobin 7.8 L Hematocrit 23.4 L Mean Corpuscular Volume 101.3 H Mean Corpuscular Hemoglobin 33.8 H Mean Corpuscular Hemoglobin Concent 33.3 Red Cell Distribution Width 14.9 H Platelet Count 149 Mean Platelet Volume 10.7 H Neutrophils % 73.0 Lymphocytes % 17.7 Monocytes % 7.1 Eosinophils % 1.1 Basophils % 0.4 Nucleated Red Blood Cells % 0.0 Neutrophils # 5.9 Lymphocytes # 1.4 Monocytes # 0.6 Eosinophils # 0.1 Basophils # 0.0 Nucleated Red Blood Cells # 0.0 Sodium Level 137 Potassium Level 5.4 H Chloride Level 95 L Carbon Dioxide Level 23 Anion Gap 24 H Blood Urea Nitrogen 95 #H Creatinine 10.03 #H Glucose Level 75 Calcium Level 9.9 Medications Medications Current Medications Morphine Sulfate (morphine) 2 mg Q4H PRN IV pain 7-10 Last administered on 06:34; Admin Dose 2 MG; Start 03/23/17 at 18:00 Cinacalcet (Sensipar) 90 mg DAILY PO Last administered on 04/06/17 08:25; Admin Dose 90 MG; Start 03/23/17 at 21:00 Acetaminophen (Tylenol Tab) 650 mg Q6H PRN PO PAIN AND OR ELEVATED TEMP Last administered on 03/29/17 18:54; Admin Dose 650 MG; Start 03/23/17 at 23:00 Ondansetron HCl (Zofran Inj) 4 mg Q6H PRN IV NAUSEA AND/OR VOMITING; Start at 23:00 Diphenhydramine HCl (Benadryl) 50 mg Q6H PRN IV itching Last administered on 05:34; Admin Dose 50 MG; Start 03/24/17 at 06:00 Clotrimazole (Clotrim 1% Vaginal Cr) 1 applic HS VAG Last administered on 04/06 21:00; Admin Dose 1 APPLIC; Start 03/24/17 at 21:00 Acetaminophen/ Hydrocodone Bitart ([place] (5/325)) 1 tab Q4H PRN NGT PAIN LEVEL 4-6 Last administered on 04/03/17 17:25; Admin Dose 1 TAB; Start 03/25/17 at 18:00 Epoetin Maxwell (Epogen (Esrd)) 6,000 units MoWeFr@17 IV ; Start 04/07/17 at 17:00 MICHELLE MOJICA M.D. Apr 07, 2017 09:58
--- NOTE | 2017-04-07 13:54 | PN ---
Date/Time of Note Date/Time of Note DATE: 04/07/17 TIME: 13:52 Assessment/Plan VTE Prophylaxis VTE Prophylaxis Intervention: SCD's Lines/Catheters [facility]from [facility] [place] Urinary Cath still in place: No Assessment/Plan Chief Complaint/Hosp Course Patient complains of constipation will start patient on bowel regimen. Potassium is 5.4, patient is currently undergoing hemodialysis. 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 Bone scan is nondiagnostic. Dr. Jc is following in oncology consultation. 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 Dr. Nagy is following in orthopedic surgery consultation. Status post steroid injection into the left knee. -Abdominal pain, continue morphine for pain and Zofran as needed for nausea. -Right ovarian cystic lesion per MRI, No evidence of torsion. Tumor markers not elevated. Diagnostic laparoscopy and possible ovarian cystectomy is recommended. ROLL COVERER is following. -End-stage renal disease, patient had a last hemodialysis yesterday. is following in nephrology consultation. -Secondary hyperparathyroidism of renal origin, s/p partial left thyroid lobectomy, left upper and lower parathyroidectomy in [place] [address] Morales. Per discussion with patient's wheel inspector in our nephrology colleague patient will undergo surgery as an outpatient. Discussed with Dr. Morales, if there is no urgency patient will follow up with ENT surgeon as an outpatient. -Anemia of chronic disease, continue Epogen Further recommendations based on clinical course. Plan of care discussed with Dr. Turner. Problems: Exam/Review of Systems Vital Signs Vitals Vital Signs Date Time Temp Pulse Resp B/P Pulse Ox O2 Delivery O2 Flow Rate FiO2 04/07/17 08:01 98.1 94 18 105/54 98 Intake and Output 04/06/17 04/06/17 04/07/17 14:59 22:59 06:59 Intake Total 840 ml 400 ml Balance 840 ml 400 ml Exam Constitutional: alert, oriented Respiratory: normal air movement Cardiovascular: nl pulses Gastrointestinal: soft, tender Musculoskeletal: nl extremities to inspection Extremities: normal pulses, other (Left upper extremity fistula) Results Result Diagram: 04/07/1785404/07/17 0855 Results 24 hrs Laboratory Tests Test 04/07/17 08:55 White Blood Count 8.0 # Red Blood Count 2.31 L Hemoglobin 7.8 L Hematocrit 23.4 L Mean Corpuscular Volume 101.3 H Mean Corpuscular Hemoglobin 33.8 H Mean Corpuscular Hemoglobin Concent 33.3 Red Cell Distribution Width 14.9 H Platelet Count 149 Mean Platelet Volume 10.7 H Neutrophils % 73.0 Lymphocytes % 17.7 Monocytes % 7.1 Eosinophils % 1.1 Basophils % 0.4 Nucleated Red Blood Cells % 0.0 Neutrophils # 5.9 Lymphocytes # 1.4 Monocytes # 0.6 Eosinophils # 0.1 Basophils # 0.0 Nucleated Red Blood Cells # 0.0 Sodium Level 137 Potassium Level 5.4 H Chloride Level 95 L Carbon Dioxide Level 23 Anion Gap 24 H Blood Urea Nitrogen 95 #H Creatinine 10.03 #H Glucose Level 75 Calcium Level 9.9 Medications Medications Current Medications Morphine Sulfate (morphine) 2 mg Q4H PRN IV pain 7-10 Last administered on 06:34; Admin Dose 2 MG; Start 03/23/17 at 18:00 Cinacalcet (Sensipar) 90 mg DAILY PO Last administered on 04/06/17 08:25; Admin Dose 90 MG; Start 03/23/17 at 21:00 Acetaminophen (Tylenol Tab) 650 mg Q6H PRN PO PAIN AND OR ELEVATED TEMP Last administered on 03/29/17 18:54; Admin Dose 650 MG; Start 03/23/17 at 23:00 Ondansetron HCl (Zofran Inj) 4 mg Q6H PRN IV NAUSEA AND/OR VOMITING; Start at 23:00 Diphenhydramine HCl (Benadryl) 50 mg Q6H PRN IV itching Last administered on 11:15; Admin Dose 50 MG; Start 03/24/17 at 06:00 Clotrimazole (Clotrim 1% Vaginal Cr) 1 applic HS VAG Last administered on 04/06 21:00; Admin Dose 1 APPLIC; Start 03/24/17 at 21:00 Acetaminophen/ Hydrocodone Bitart ([place] (5/325)) 1 tab Q4H PRN NGT PAIN LEVEL 4-6 Last administered on 12/9/17at 17:25; Admin Dose 1 TAB; Start 03/25/17 at 18:00 Epoetin Maxwell (Epogen (Esrd)) 6,000 units MoWeFr@17 IV ; Start 04/07/17 at 17:00 Docusate Sodium (Colace) 100 mg BID PO ; Start 04/07/17 at 21:00 Polyethylene Glycol (Miralax) 17 gm DAILY PRN NGT CONSTIPATION; Start at 14:00 ERICK ROBERTSON Apr 07, 2017 13:53
--- NOTE | 2017-04-07 17:38 | CONS ---
Date/Time of Note Date/Time of Note DATE: 04/07/17 TIME: 17:35 Assessment/Plan Assessment/Plan Additional Assessment/Plan 31 yo Female with 1) Abdominal pain 2) Left ovarian mass 3) End-stage renal disease 4) MBD Secondary hyperparathyroidism , s/p partial left thyroid lobectomy, left upper and lower parathyroidectomy in [place] [address] Morales. 5) Anemia Chronic Disease 6) Hyperkalemia 7) Lytic lesion bone, S/p Bx, ? Brown Tumor HD MWF Pt will benefit from parathyroidectomy Bone scan reviewed Discussed case with Hematology/Oncology. Consultation Date/Type/Reason Admit Date/Time Mar 23, 2017 at 10:28 Type of Consultation: Renal Referring Provider: LUANNE WALTER MD 24 HR Interval Summary Free Text/Dictation Pain and flushing after HD today Constitutional: No requiring O2 Exam/Review of Systems Vital Signs Vitals Vital Signs Date Time Temp Pulse Resp B/P Pulse Ox O2 Delivery O2 Flow Rate FiO2 04/07/17 14:57 105 18 04/07/17 08:01 98.1 105/54 98 Intake and Output 04/06/17 04/06/17 04/07/17 15:00 23:00 07:00 Intake Total 840 ml 400 ml Balance 840 ml 400 ml Exam Constitutional: alert, No distress ENMT: mucosa pink and moist Neck: No jvd Respiratory: clear to auscultation Cardiovascular: regular rate and rhythm, No edema Gastrointestinal: soft 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: No lethargic Skin: No diaphoresis Results Result Diagram: 04/07/17 0855 04/07/17 0855 Results 24 hrs Laboratory Tests Test 04/07/17 08:55 White Blood Count 8.0 # Red Blood Count 2.31 L Hemoglobin 7.8 L Hematocrit 23.4 L Mean Corpuscular Volume 101.3 H Mean Corpuscular Hemoglobin 33.8 H Mean Corpuscular Hemoglobin Concent 33.3 Red Cell Distribution Width 14.9 H Platelet Count 149 Mean Platelet Volume 10.7 H Neutrophils % 73.0 Lymphocytes % 17.7 Monocytes % 7.1 Eosinophils % 1.1 Basophils % 0.4 Nucleated Red Blood Cells % 0.0 Neutrophils # 5.9 Lymphocytes # 1.4 Monocytes # 0.6 Eosinophils # 0.1 Basophils # 0.0 Nucleated Red Blood Cells # 0.0 Sodium Level 137 Potassium Level 5.4 H Chloride Level 95 L Carbon Dioxide Level 23 Anion Gap 24 H Blood Urea Nitrogen 95 #H Creatinine 10.03 #H Glucose Level 75 Calcium Level 9.9 Medications Medications Current Medications Morphine Sulfate (morphine) 2 mg Q4H PRN IV pain 7-10 Last administered on 15:00; Admin Dose 2 MG; Start 03/23/17 at 18:00 Cinacalcet (Sensipar) 90 mg DAILY PO Last administered on 04/06/17 08:25; Admin Dose 90 MG; Start 03/23/17 at 21:00 Acetaminophen (Tylenol Tab) 650 mg Q6H PRN PO PAIN AND OR ELEVATED TEMP Last administered on 03/29/17 18:54; Admin Dose 650 MG; Start 03/23/17 at 23:00 Ondansetron HCl (Zofran Inj) 4 mg Q6H PRN IV NAUSEA AND/OR VOMITING; Start at 23:00 Diphenhydramine HCl (Benadryl) 50 mg Q6H PRN IV itching Last administered on 17:25; Admin Dose 50 MG; Start 03/24/17 at 06:00 Clotrimazole (Clotrim 1% Vaginal Cr) 1 applic HS VAG Last administered on 04/06 21:00; Admin Dose 1 APPLIC; Start 03/24/17 at 21:00 Acetaminophen/ Hydrocodone Bitart ([place] (5/325)) 1 tab Q4H PRN NGT PAIN LEVEL 4-6 Last administered on 04/03/17 17:25; Admin Dose 1 TAB; Start 03/25/17 at 18:00 Epoetin Maxwell (Epogen (Esrd)) 6,000 units MoWeFr@17 IV ; Start 04/07/17 at 17:00 Docusate Sodium (Colace) 100 mg BID PO ; Start 04/07/17 at 21:00 Polyethylene Glycol (Miralax) 17 gm DAILY PRN NGT CONSTIPATION; Start at 14:00 JUANJO TATUM MD Apr 07, 2017 17:38
[2017-04-07] MEDS: EPOETIN 3000 UNITS/1 ML INJ (ESRD) IV SCH (18:42)
[2017-04-07] MEDS: CLOTRIMAZOLE 1% 45 GM VAG CR VAG SCH (21:00)
[2017-04-07] MEDS: POLYETHYLENE GLYCOL 17 GM PACKET NGT PRN (21:17)
[2017-04-07] MEDS: DOCUSATE SODIUM 100 MG CAP PO SCH (21:17)
[2017-04-08 02:35] VITALS: BP 83/47; RESP 20
[2017-04-08] MEDS: morphine 2 MG INJ IV PRN (05:35)
[2017-04-08] MEDS: DIPHENHYDRAMINE 50 MG INJ IV PRN ×3 (05:35→18:58)
[2017-04-08 05:41] LABS: CALCIUM 10.2 mg/dl (8.4-10.2); CREATININE 6.84 mg/dl (0.44-1.00); POTASSIUM 5.1 mmol/L (3.5-5.1)
[2017-04-08 08:01] VITALS: BP 75/43; RESP 18
[2017-04-08] MEDS: DOCUSATE SODIUM 100 MG CAP PO SCH ×2 (09:25→21:59)
[2017-04-08] MEDS: SEVELAMER 800 MG TAB PO SCH ×3 (09:25→18:01)
[2017-04-08] MEDS: CALCIUM ACETATE 667 MG CAP PO SCH ×3 (09:25→18:01)
[2017-04-08] MEDS: CINACALCET 30 MG TAB PO SCH (09:25)
[2017-04-08] MEDS ORDERED: morphine 2 MG INJ IV PRN (10:30)
[2017-04-08] MEDS ORDERED: morphine LIQ (10 MG/5 ML) CUP PO PRN (11:00)
[2017-04-08] MEDS ORDERED: morphine 2 MG INJ IV STA (12:54)
[2017-04-08] MEDS ORDERED: BISACODYL 10 MG SUPP PR ONE (14:00)
[2017-04-08] MEDS: ONDANSETRON 4 MG INJ IV PRN (14:07)
--- NOTE | 2017-04-08 14:58 | CONS ---
Date/Time of Note Date/Time of Note DATE: 04/08/17 TIME: 14:56 Assessment/Plan Assessment/Plan Additional Assessment/Plan 31 yo Female with 1) Abdominal pain 2) Left ovarian mass 3) End-stage renal disease 4) MBD Secondary hyperparathyroidism , s/p partial left thyroid lobectomy, left upper and lower parathyroidectomy [place] [address] Morales. 5) Anemia Chronic Disease 6) Hyperkalemia 7) Lytic lesion bone, S/p Bx, ? Brown Tumor HD MWF HD in am tomorrow Planned for PRBC Pt will benefit from parathyroidectomy, however surgeon not available this week Plan for Discharge possible tomorrow and schedule as outpt with Dr Morales for Parathyroidectomy Discussed with Dr Jones, Pts Housekeeper Head. Consultation Date/Type/Reason Admit Date/Time Mar 23, 2017 at 10:28 Type of Consultation: Renal Referring Provider: LUANNE WALTER MD 24 HR Interval Summary Constitutional: No requiring O2 Exam/Review of Systems Vital Signs Vitals Vital Signs Date Time Temp Pulse Resp B/P Pulse Ox O2 Delivery O2 Flow Rate FiO2 04/08/17 08:01 97.8 78 18 75/43 93 Intake and Output 04/07/17 04/07/17 04/08/17 15:00 23:00 07:00 Intake Total 500 ml 500 ml 400 ml Output Total 4000 ml 0 ml Balance -3500 ml 500 ml 400 ml Exam Constitutional: No distress ENMT: mucosa pink and moist Neck: No jvd Respiratory: clear to auscultation Cardiovascular: regular rate and rhythm, No edema Gastrointestinal: soft Extremities: No edema Results Result Diagram: 04/07/17 0855 04/08/17 0448 Results 24 hrs Laboratory Tests Test 04/08/17 04:48 Sodium Level 139 Potassium Level 5.1 Chloride Level 94 L Carbon Dioxide Level 25 Anion Gap 25 H Blood Urea Nitrogen 58 #H Creatinine 6.84 #H Glucose Level 78 Lactic Acid Level 2.2 *H Calcium Level 10.2 Medications Medications Current Medications Cinacalcet (Sensipar) 90 mg DAILY PO Last administered on 04/08/17 09:25; Admin Dose 90 MG; Start 03/23/17 at 21:00 Acetaminophen (Tylenol Tab) 650 mg Q6H PRN PO PAIN AND OR ELEVATED TEMP Last administered on 03/29/17 18:54; Admin Dose 650 MG; Start 03/23/17 at 23:00 Ondansetron HCl (Zofran Inj) 4 mg Q6H PRN IV NAUSEA AND/OR VOMITING Last administered on 04/08/17 14:07; Admin Dose 4 MG; Start 03/23/17 at 23:00 Clotrimazole (Clotrim 1% Vaginal Cr) 1 applic HS VAG Last administered on 04/06 21:00; Admin Dose 1 APPLIC; Start 03/24/17 at 21:00 Acetaminophen/ Hydrocodone Bitart ([place] (5/325)) 1 tab Q4H PRN NGT PAIN LEVEL 4-6 Last administered on 04/03/17 17:25; Admin Dose 1 TAB; Start 03/25/17 at 18:00 Epoetin Maxwell (Epogen (Esrd)) 6,000 units MoWeFr@17 IV Last administered on 18:42; Admin Dose 6,000 UNITS; Start 04/07/17 at 17:00 Docusate Sodium (Colace) 100 mg BID PO Last administered on 04/08/17 09:25; Admin Dose 100 MG; Start 04/07/17 at 21:00 Polyethylene Glycol (Miralax) 17 gm DAILY PRN NGT CONSTIPATION Last administered on 04/07/17 21:17; Admin Dose 17 GM; Start 04/07/17 at 14:00 Diphenhydramine HCl (Benadryl) 25 mg Q6H PRN IV ITCHING Last administered on 12:57; Admin Dose 25 MG; Start 04/08/17 at 10:30 Morphine Sulfate (morphine) 3 mg Q4H PRN PO PAIN; Start 04/08/17 at 11:00 JUANJO TATUM MD Apr 08, 2017 14:58
--- NOTE | 2017-04-08 15:11 | PN ---
Date/Time of Note Date/Time of Note DATE: 04/08/17 TIME: 15:08 Assessment/Plan VTE Prophylaxis VTE Prophylaxis Intervention: SCD's Lines/Catheters IV C[facility]ter Type [facility]from [facility] [place] Urinary Cath still in place: No Assessment/Plan Chief Complaint/Hosp Course Hemoglobin is 7.8 will transfuse 1 unit of packed red blood cells with hemoglobin with next hemodialysis which is tomorrow. Case management is asked for authorization to follow-up with Dr. Morales ENT as an outpatient. Patient complains of the right hip pain, however, she is able to ambulate using walker. 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 Bone scan is nondiagnostic. Dr. Jc is following in oncology consultation. 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 Dr. Nagy is following in orthopedic surgery consultation. Status post steroid injection into the left knee. -Abdominal pain, continue morphine for pain and Zofran as needed for nausea. -Right ovarian cystic lesion per MRI, No evidence of torsion. Tumor markers not elevated. Diagnostic laparoscopy and possible ovarian cystectomy is recommended. EQUIPMENT ENGINEERING TECHNICIAN is following. -End-stage renal disease, patient had a last hemodialysis yesterday. is following in nephrology consultation. -Secondary hyperparathyroidism of renal origin, s/p partial left thyroid lobectomy, left upper and lower parathyroidectomy in [place] [address] Morales. Per discussion with patient's joy loading machine operator in our nephrology colleague patient will undergo surgery as an outpatient. Discussed with Dr. Morales, if there is no urgency patient will follow up with ENT surgeon as an outpatient. -Anemia of chronic disease, continue Epogen Further recommendations based on clinical course. Plan of care discussed with Dr. Turner. Problems: Exam/Review of Systems Vital Signs Vitals Vital Signs Date Time Temp Pulse Resp B/P Pulse Ox O2 Delivery O2 Flow Rate FiO2 04/08/17 08:01 97.8 78 18 75/43 93 Intake and Output 04/07/17 04/07/17 04/08/17 15:00 23:00 07:00 Intake Total 500 ml 500 ml 400 ml Output Total 4000 ml 0 ml Balance -3500 ml 500 ml 400 ml Exam Constitutional: alert, oriented Respiratory: normal air movement Cardiovascular: nl pulses Gastrointestinal: soft, tender Musculoskeletal: nl extremities to inspection Extremities: normal pulses, other (Left upper extremity fistula) Results Result Diagram: 04/07/17 0855 04/08/17 0448 Results 24 hrs Laboratory Tests Test 04/08/17 04:48 Sodium Level 139 Potassium Level 5.1 Chloride Level 94 L Carbon Dioxide Level 25 Anion Gap 25 H Blood Urea Nitrogen 58 #H Creatinine 6.84 #H Glucose Level 78 Lactic Acid Level 2.2 *H Calcium Level 10.2 Medications Medications Current Medications Cinacalcet (Sensipar) 90 mg DAILY PO Last administered on 04/08/17 09:25; Admin Dose 90 MG; Start 03/23/17 at 21:00 Acetaminophen (Tylenol Tab) 650 mg Q6H PRN PO PAIN AND OR ELEVATED TEMP Last administered on 03/29/17 18:54; Admin Dose 650 MG; Start 03/23/17 at 23:00 Ondansetron HCl (Zofran Inj) 4 mg Q6H PRN IV NAUSEA AND/OR VOMITING Last administered on 04/08/17 14:07; Admin Dose 4 MG; Start 03/23/17 at 23:00 Clotrimazole (Clotrim 1% Vaginal Cr) 1 applic HS VAG Last administered on 04/06 21:00; Admin Dose 1 APPLIC; Start 03/24/17 at 21:00 Acetaminophen/ Hydrocodone Bitart ([place] (5/325)) 1 tab Q4H PRN NGT PAIN LEVEL 4-6 Last administered on 04/03/17 17:25; Admin Dose 1 TAB; Start 03/25/17 at 18:00 Epoetin Maxwell (Epogen (Esrd)) 6,000 units MoWeFr@17 IV Last administered on 18:42; Admin Dose 6,000 UNITS; Start 04/07/17 at 17:00 Docusate Sodium (Colace) 100 mg BID PO Last administered on 04/08/17 09:25; Admin Dose 100 MG; Start 04/07/17 at 21:00 Polyethylene Glycol (Miralax) 17 gm DAILY PRN NGT CONSTIPATION Last administered on 04/07/17 21:17; Admin Dose 17 GM; Start 04/07/17 at 14:00 Diphenhydramine HCl (Benadryl) 25 mg Q6H PRN IV ITCHING Last administered on t 12:57; Admin Dose 25 MG; Start 04/08/17 at 10:30 Morphine Sulfate (morphine) 3 mg Q4H PRN PO PAIN; Start 04/08/17 at 11:00 ERICK ROBERTSON Apr 08, 2017 15:11
[2017-04-08 16:05] VITALS: BP 74/38; RESP 18
[2017-04-08] MEDS: HYDROCODONE/APAP (5/325) TAB NGT PRN ×2 (18:58→23:04)
[2017-04-08 19:41] VITALS: BP 111/56; RESP 22
[2017-04-08] MEDS: CLOTRIMAZOLE 1% 45 GM VAG CR VAG SCH (21:00)
[2017-04-09] VITALS (13 sets, daily range): BP systolic 83–140; BP diastolic 44–84; PULSE 90–137; RESP 15–22
[2017-04-09] MEDS: DIPHENHYDRAMINE 50 MG INJ IV PRN ×4 (00:58→23:02)
[2017-04-09 06:00] LABS: CALCIUM 9.9 mg/dl (8.4-10.2); CREATININE 9.13 mg/dl (0.44-1.00)
[2017-04-09 06:38] LABS: POTASSIUM 6.6 mmol/L (3.5-5.1)
[2017-04-09] MEDS: SEVELAMER 800 MG TAB PO SCH ×3 (09:05→17:55)
[2017-04-09] MEDS: DOCUSATE SODIUM 100 MG CAP PO SCH ×2 (09:05→20:19)
[2017-04-09] MEDS: CALCIUM ACETATE 667 MG CAP PO SCH ×3 (09:05→17:55)
[2017-04-09] MEDS: CINACALCET 30 MG TAB PO SCH (09:06)
[2017-04-09] MEDS: HYDROCODONE/APAP (5/325) TAB NGT PRN (12:55)
[2017-04-09] MEDS ORDERED: HYDROmorphONE 0.5 MG/0.5 ML SYG IV STA (13:03)
[2017-04-09] MEDS ORDERED: HYDROmorphONE 1 MG/ML SYG IV STA (13:30)
[2017-04-09 14:08] LABS: CALCIUM 10.6 mg/dl (8.4-10.2); CREATININE 5.05 mg/dl (0.44-1.00); POTASSIUM 3.6 mmol/L (3.5-5.1)
[2017-04-09] MEDS ORDERED: BARIUM SULF 2% 450 ML BTL (BERRY SMOOTHIE) PO ONE (14:30)
--- NOTE | 2017-04-09 15:29 | PN ---
Date/Time of Note Date/Time of Note DATE: 04/09/17 TIME: 15:19 Assessment/Plan VTE Prophylaxis VTE Prophylaxis Intervention: SCD's Lines/Catheters IV Catheter Type (from [facility]): Mid Line Urinary Cath still in place: No Assessment/Plan Chief Complaint/Hosp Course Patient developed severe abdominal pain during the completion of hemodialysis today, rapid response was called, Dilaudid was giving for pain, stat BMP is ordered, will obtain abdominal CT with oral contrast. Patient's condition and plan of care discussed with patient's mother using diamond grader. 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 Bone scan is nondiagnostic. Dr. Jc is following in oncology consultation. 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 Dr. Nagy is following in orthopedic surgery consultation. Status post steroid injection into the left knee. -Abdominal pain, continue morphine for pain and Zofran as needed for nausea. -Right ovarian cystic lesion per MRI, No evidence of torsion. Tumor markers not elevated. Diagnostic laparoscopy and possible ovarian cystectomy is recommended. SUPPLY CHAIN PROGRAM MANAGER is following. -End-stage renal disease, patient had a last hemodialysis yesterday. is following in nephrology consultation. -Secondary hyperparathyroidism of renal origin, s/p partial left thyroid lobectomy, left upper and lower parathyroidectomy [place] [address] Morales. Per discussion with patient's hydrodynamics teacher in our nephrology colleague patient will undergo surgery as an outpatient. Discussed with Dr. Morales, if there is no urgency patient will follow up with ENT surgeon as an outpatient. -Anemia of chronic disease, continue Epogen Further recommendations based on clinical course. Plan of care discussed with Dr. Turner. Problems: Exam/Review of Systems Vital Signs Vitals Vital Signs Date Time Temp Pulse Resp B/P Pulse Ox O2 Delivery O2 Flow Rate FiO2 04/09/17 13:40 144 04/09/17 13:00 22 04/09/17 07:11 98.6 113/56 99 Intake and Output 04/08/17 04/08/17 04/09/17 15:00 23:00 07:00 Intake Total 560 ml 300 ml Output Total 0 ml Balance 560 ml 300 ml Exam Constitutional: alert, oriented Respiratory: normal air movement Cardiovascular: nl pulses Gastrointestinal: soft, tender Musculoskeletal: nl extremities to inspection Extremities: normal pulses, other (Left upper extremity fistula) Results Result Diagram: 04/07/17 0855 04/09/17 1344 Results 24 hrs Laboratory Tests Test 04/09/17 04:41 04/09/17 13:26 04/09/17 13:44 Sodium Level 135 141 Potassium Level 6.6 *H 3.6 # Chloride Level 90 L 92 L Carbon Dioxide Level 24 28 Anion Gap 28 H 25 H Blood Urea Nitrogen 88 #H 38 #H Creatinine 9.13 #H 5.05 #H Glucose Level 76 114 Calcium Level 9.9 10.6 H Bedside Glucose 138 Medications Medications Current Medications Cinacalcet (Sensipar) 90 mg DAILY PO Last administered on 04/09/17 09:06; Admin Dose 90 MG; Start 03/23/17 at 21:00 Acetaminophen (Tylenol Tab) 650 mg Q6H PRN PO PAIN AND OR ELEVATED TEMP Last administered on 03/29/17 18:54; Admin Dose 650 MG; Start 03/23/17 at 23:00 Ondansetron HCl (Zofran Inj) 4 mg Q6H PRN IV NAUSEA AND/OR VOMITING Last administered on 04/08/17 14:07; Admin Dose 4 MG; Start 03/23/17 at 23:00 Clotrimazole (Clotrim 1% Vaginal Cr) 1 applic HS VAG Last administered on 04/06 21:00; Admin Dose 1 APPLIC; Start 03/24/17 at 21:00 Epoetin Maxwell (Epogen (Esrd)) 6,000 units MoWeFr@17 IV Last administered on 18:42; Admin Dose 6,000 UNITS; Start 04/07/17 at 17:00 Docusate Sodium (Colace) 100 mg BID PO Last administered on 04/09/17 09:05; Admin Dose 100 MG; Start 04/07/17 at 21:00 Polyethylene Glycol (Miralax) 17 gm DAILY PRN NGT CONSTIPATION Last administered on 04/07/17 21:17; Admin Dose 17 GM; Start 04/07/17 at 14:00 Diphenhydramine HCl (Benadryl) 25 mg Q6H PRN IV ITCHING Last administered on 12 /15/17at 06:59; Admin Dose 25 MG; Start 04/08/17 at 10:30 Hydromorphone HCl (Dilaudid) 2 mg Q4H PRN PO PAIN; Start 04/09/17 at 13:30 ERICK ROBERTSON Apr 09, 2017 15:29
[2017-04-09] MEDS: ONDANSETRON 4 MG INJ IV PRN (15:56)
--- NOTE | 2017-04-09 19:05 | RADRPT ---
PROCEDURE: CT abdomen and pelvis without IV contrast. CLINICAL INDICATION: Abdominal pain TECHNIQUE: CT scan of the abdomen and pelvis without contrast was performed on the [employer] volumetric [address] scanner. The patient was scanned without intravenous contrast. Coronal and sagittal refo rmatted images were obtained from the axial source images. The CTDI vol is 4.57 mGy and the DLP is 2 51.2 mGy-cm. One or more of the following dose reduction techniques were used: Automated exposure control. Adjustment of the mA and/or kV according to patient size. Use of iterative reconstruction technique. COMPARISON: 04/03/2017 FINDINGS: CT abdomen: Atelectasis in the lung bases is seen. The remaining lung bases are clear. The heart size is not en larged and is without pericardial thickening or effusion. The liver is normal in size and density and is without focal mass or intrahepatic biliary dilatation . The spleen is normal in size and homogeneous in density. The stomach is grossly unremarkable. T he pancreas as visualized is normal. The gallbladder is contracted. No common bile duct dilatation is seen. The adrenal glands are symmetric and normal. The bilateral kidneys are and stage which is once again seen. Again seen is a right renal cyst which is unchanged. No renal calculus or obstruct [place]erson uropathy or mass lesion is seen. The aorta is of normal in caliber. There is no retroperitoneal lymphadenopathy. The gagan hepatis region is clear. The large bowel is stool-filled. The small and large bowel and mesentery, as visua lized, are otherwise unremarkable. The normal appendix is identified. CT pelvis: Again seen is a right adnexal cystic structure measuring approximately 3.8 x 2.6 cm in size and has not changed significantly. The remaining pelvic organs are normal. The pelvic sidewalls and inguina l regions are clear. No pelvic mass, lymphadenopathy, or free fluid is seen. No acute inflammation is seen. The urinary bladder is within normal limits. Again seen is diffuse sclerosis with areas of lucency throughout the osseous structures once again w hich has not changed significantly. IMPRESSION: 1. No acute pathology in the abdomen and pelvis. 2. Stable right adnexal cystic structure. 3. Stool filled large bowel. 4. End-stage [place] kidneys with likely renal osteodystrophy again seen. RPTAT: HPNM Shakir Snow, Physician Date Time Electronically viewed and signed by Shakir Snow, Physician on 04/09/2017 19:05 /
[2017-04-09] MEDS: HYDROmorphONE 2 MG TAB PO PRN (19:40)
--- NOTE | 2017-04-09 20:07 | CONS ---
Date/Time of Note Date/Time of Note DATE: 04/09/17 TIME: 20:05 Assessment/Plan Assessment/Plan Additional Assessment/Plan 31 yo Female with 1) Abdominal pain 2) Left ovarian mass 3) End-stage renal disease 4) MBD Secondary hyperparathyroidism , s/p partial left thyroid lobectomy, left upper and lower parathyroidectomy [place] [address] Morales. 5) Anemia Chronic Disease 6) Hyperkalemia 7) Lytic lesion bone, S/p Bx, ? Brown Tumor S/p HD Had severe abdominal pain S/p CT without acute findings Next HD plan will be wednesday. S/p PRBC, Repeat H/HCt Consultation Date/Type/Reason Admit Date/Time Mar 23, 2017 at 10:28 Type of Consultation: Renal Referring Provider: LUANNE WALTER MD Exam/Review of Systems Vital Signs Vitals Vital Signs Date Time Temp Pulse Resp B/P Pulse Ox O2 Delivery O2 Flow Rate FiO2 04/09/17 19:45 98.3 94 22 83/44 100 04/09/17 15:00 Nasal Cannula Intake and Output 04/08/17 04/08/17 04/09/17 15:00 23:00 07:00 Intake Total 560 ml 300 ml Output Total 0 ml Balance 560 ml 300 ml Results Result Diagram: 04/07/17 0855 04/09/17 1344 Results 24 hrs Laboratory Tests Test 04/09/17 04:41 04/09/17 13:26 04/09/17 13:44 Sodium Level 135 141 Potassium Level 6.6 *H 3.6 # Chloride Level 90 L 92 L Carbon Dioxide Level 24 28 Anion Gap 28 H 25 H Blood Urea Nitrogen 88 #H 38 #H Creatinine 9.13 #H 5.05 #H Glucose Level 76 114 Calcium Level 9.9 10.6 H Bedside Glucose 138 Imaging Free Text/Dictation CT abd IMPRESSION: 1. No acute pathology in the abdomen and pelvis. 2. Stable right adnexal cystic structure. 3. Stool filled large bowel. 4. End-stage [place] kidneys with likely renal osteodystrophy again seen. Medications Medications Current Medications Cinacalcet (Sensipar) 90 mg DAILY PO Last administered on 04/09/17t 09:06; Admin Dose 90 MG; Start 03/23/17 at 21:00 Acetaminophen (Tylenol Tab) 650 mg Q6H PRN PO PAIN AND OR ELEVATED TEMP Last administered on 03/29/17 18:54; Admin Dose 650 MG; Start 03/23/17 at 23:00 Ondansetron HCl (Zofran Inj) 4 mg Q6H PRN IV NAUSEA AND/OR VOMITING Last administered on 04/09/17 15:56; Admin Dose 4 MG; Start 03/23/17 at 23:00 Clotrimazole (Clotrim 1% Vaginal Cr) 1 applic HS VAG Last administered on 04/06 21:00; Admin Dose 1 APPLIC; Start 03/24/17 at 21:00 Epoetin Maxwell (Epogen (Esrd)) 6,000 units MoWeFr@17 IV Last administered on 18:42; Admin Dose 6,000 UNITS; Start 04/07/17 at 17:00 Docusate Sodium (Colace) 100 mg BID PO Last administered on 04/09/17 09:05; Admin Dose 100 MG; Start 04/07/17 at 21:00 Polyethylene Glycol (Miralax) 17 gm DAILY PRN NGT CONSTIPATION Last administered on 04/07/17 21:17; Admin Dose 17 GM; Start 04/07/17 at 14:00 Diphenhydramine HCl (Benadryl) 25 mg Q6H PRN IV ITCHING Last administered on 16:55; Admin Dose 25 MG; Start 04/08/17 at 10:30 Hydromorphone HCl (Dilaudid) 2 mg Q4H PRN PO PAIN Last administered on 19:40; Admin Dose 2 MG; Start 04/09/17 at 13:30 JUANJO TATUM MD Apr 09, 2017 20:07
[2017-04-09] MEDS: EPOETIN 3000 UNITS/1 ML INJ (ESRD) IV SCH (20:21)
[2017-04-09] MEDS: POLYETHYLENE GLYCOL 17 GM PACKET NGT PRN (20:37)
[2017-04-09] MEDS: CLOTRIMAZOLE 1% 45 GM VAG CR VAG SCH (21:00)
[2017-04-09] MEDS: KETOROLAC 15 MG INJ IV PRN (23:02)
[2017-04-10] MEDS: DIPHENHYDRAMINE 50 MG INJ IV PRN ×3 (07:10→19:03)
[2017-04-10 08:11] VITALS: BP 91/48; RESP 16
[2017-04-10] MEDS: CALCIUM ACETATE 667 MG CAP PO SCH ×3 (09:34→18:10)
[2017-04-10] MEDS: DOCUSATE SODIUM 100 MG CAP PO SCH ×3 (09:34→22:23)
[2017-04-10] MEDS: CINACALCET 30 MG TAB PO SCH (09:34)
[2017-04-10] MEDS: LACTULOSE 30ML CUP PO PRN (09:34)
[2017-04-10] MEDS: SEVELAMER 800 MG TAB PO SCH ×3 (09:35→18:10)
[2017-04-10] MEDS: KETOROLAC 15 MG INJ IV PRN ×2 (09:41→16:59)
--- NOTE | 2017-04-10 12:14 | PN ---
Date/Time of Note Date/Time of Note DATE: 04/10/17 TIME: 12:12 Assessment/Plan VTE Prophylaxis VTE Prophylaxis Intervention: other Lines/Catheters IV Catheter Type (from [facility]rs[facility]): Mid Line Assessment/Plan Chief Complaint/Hosp Course esrd sec hyperparathyroidism ovarian cyst pain hd per plan [id number] pt need elective admission for parathyroidectomy ok to dc after hd Problems: Exam/Review of Systems Vital Signs Vitals Vital Signs Date Time Temp Pulse Resp B/P Pulse Ox O2 Delivery O2 Flow Rate FiO2 04/10/17 08:11 98.3 86 16 91/48 97 04/09/17 15:00 Nasal Cannula Intake and Output 04/09/17 04/09/17 04/10/17 15:00 23:00 07:00 Intake Total 500 ml 1010 ml 400 ml Output Total 3000 ml 50 ml Balance -2500 ml 1010 ml 350 ml Exam Constitutional: alert, oriented, well developed Psych: no complaints Eyes: EOMI, nl conjunctiva ENMT: nl external ears & nose Neck: supple Respiratory: clear to auscultation, normal air movement Cardiovascular: nl pulses, regular rate and rhythm Gastrointestinal: nl liver, spleen, non-tender, soft Genitourinary - Female: nl adnexae Musculoskeletal: nl extremities to inspection Results Result Diagram: 04/07/17 0855 04/09/17 1344 Results 24 hrs Laboratory Tests Test 04/09/17 13:26 04/09/17 13:44 04/10/17 07:47 Bedside Glucose 138 Sodium Level 141 Potassium Level 3.6 # Chloride Level 92 L Carbon Dioxide Level 28 Anion Gap 25 H Blood Urea Nitrogen 38 #H Creatinine 5.05 #H Glucose Level 114 Calcium Level 10.6 H Lab Scanned Report BLOOD TRANSFUSION Medications Medications Current Medications Cinacalcet (Sensipar) 90 mg DAILY PO Last administered on 04/10/17 09:34; Admin Dose 90 MG; Start 03/23/17 at 21:00 Acetaminophen (Tylenol Tab) 650 mg Q6H PRN PO PAIN AND OR ELEVATED TEMP Last administered on 03/29/17 18:54; Admin Dose 650 MG; Start 03/23/17 at 23:00 Ondansetron HCl (Zofran Inj) 4 mg Q6H PRN IV NAUSEA AND/OR VOMITING Last administered on 04/09/17 15:56; Admin Dose 4 MG; Start 03/23/17 at 23:00 Clotrimazole (Clotrim 1% Vaginal Cr) 1 applic HS VAG Last administered on 04/06 21:00; Admin Dose 1 APPLIC; Start 03/24/17 at 21:00 Epoetin Maxwell (Epogen (Esrd)) 6,000 units MoWeFr@17 IV Last administered on 20:21; Admin Dose 6,000 UNITS; Start 04/07/17 at 17:00 Docusate Sodium (Colace) 100 mg BID PO Last administered on 04/10/17 09:34; Admin Dose 100 MG; Start 04/07/17 at 21:00 Polyethylene Glycol (Miralax) 17 gm DAILY PRN NGT CONSTIPATION Last administered on 04/09/17 20:37; Admin Dose 17 GM; Start 04/07/17 at 14:00 Diphenhydramine HCl (Benadryl) 25 mg Q6H PRN IV ITCHING Last administered on 07:10; Admin Dose 25 MG; Start 04/08/17 at 10:30 Hydromorphone HCl (Dilaudid) 2 mg Q4H PRN PO PAIN Last administered on 19:40; Admin Dose 2 MG; Start 04/09/17 at 13:30 Lactulose (Enulose) 30 gm Q6 PRN PO CONSTIPATION Last administered on 09:34; Admin Dose 30 GM; Start 04/09/17 at 22:30 Ketorolac Tromethamine (Toradol) 15 mg Q6H PRN IV PAIN Last administered on 09:41; Admin Dose 15 MG; Start 04/09/17 at 22:30; Stop 04/12/17 at 22: 29 ANINE SANTOS MD Apr 10, 2017 12:14
[2017-04-10] MEDS: ONDANSETRON 4 MG INJ IV PRN (13:14)
--- NOTE | 2017-04-10 13:37 | PN ---
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 Bone scan is nondiagnostic. Dr. Jc is following in oncology consultation. 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 Dr. Nagy is following in orthopedic surgery consultation. Status post steroid injection into the left knee. -Abdominal pain, continue morphine for pain and Zofran as needed for nausea. -Right ovarian cystic lesion per MRI, No evidence of torsion. Tumor markers not elevated. Diagnostic laparoscopy and possible ovarian cystectomy is recommended. DUPLICATOR PUNCH SET UP OPERATOR is following. -End-stage renal disease, patient had a last hemodialysis yesterday. is following in nephrology consultation. -Secondary hyperparathyroidism of renal origin, s/p partial left thyroid lobectomy, left upper and lower parathyroidectomy in [place] [address] Morales. Per discussion with patient's director quality systems in our nephrology colleague patient will undergo surgery as an outpatient. Discussed with Dr. Morales, if there is no urgency patient will follow up with ENT surgeon as an outpatient. -Anemia of chronic disease, continue Epogen Further recommendations based on clinical course. Plan of care discussed with Dr. Turner. Subjective 24 Hr Interval Summary Free Text/Dictation - itching/nausea are better- afebrile - Exam/Review of Systems Vital Signs Vitals Vital Signs Date Time Temp Pulse Resp B/P Pulse Ox O2 Delivery O2 Flow Rate FiO2 04/10/17 08:11 98.3 86 16 91/48 97 04/09/17 15:00 Nasal Cannula Intake and Output 04/09/17 04/09/17 04/10/17 15:00 23:00 07:00 Intake Total 500 ml 1010 ml 400 ml Output Total 3000 ml 50 ml Balance -2500 ml 1010 ml 350 ml Exam Constitutional: alert Respiratory: clear to auscultation Cardiovascular: nl pulses Results Result Diagram: 04/07/17 0855 04/09/17 1344 Results 24 hrs Laboratory Tests Test 04/09/17 13:44 04/10/17 07:47 Sodium Level 141 Potassium Level 3.6 # Chloride Level 92 L Carbon Dioxide Level 28 Anion Gap 25 H Blood Urea Nitrogen 38 #H Creatinine 5.05 #H Glucose Level 114 Calcium Level 10.6 H Lab Scanned Report BLOOD TRANSFUSION Medications Medications Current Medications Cinacalcet (Sensipar) 90 mg DAILY PO Last administered on 04/10/17 09:34; Admin Dose 90 MG; Start 03/23/17 at 21:00 Acetaminophen (Tylenol Tab) 650 mg Q6H PRN PO PAIN AND OR ELEVATED TEMP Last administered on 03/29/17 18:54; Admin Dose 650 MG; Start 03/23/17 at 23:00 Ondansetron HCl (Zofran Inj) 4 mg Q6H PRN IV NAUSEA AND/OR VOMITING Last administered on 04/10/17 13:14; Admin Dose 4 MG; Start 03/23/17 at 23:00 Clotrimazole (Clotrim 1% Vaginal Cr) 1 applic HS VAG Last administered on 04/06 21:00; Admin Dose 1 APPLIC; Start 03/24/17 at 21:00 Epoetin Maxwell (Epogen (Esrd)) 6,000 units MoWeFr@17 IV Last administered on 20:21; Admin Dose 6,000 UNITS; Start 04/07/17 at 17:00 Docusate Sodium (Colace) 100 mg BID PO Last administered on 04/10/17 09:34; Admin Dose 100 MG; Start 04/07/17 at 21:00 Polyethylene Glycol (Miralax) 17 gm DAILY PRN NGT CONSTIPATION Last administered on 04/09/17 20:37; Admin Dose 17 GM; Start 04/07/17 at 14:00 Diphenhydramine HCl (Benadryl) 25 mg Q6H PRN IV ITCHING Last administered on 13:14; Admin Dose 25 MG; Start 04/08/17 at 10:30 Hydromorphone HCl (Dilaudid) 2 mg Q4H PRN PO PAIN Last administered on 19:40; Admin Dose 2 MG; Start 04/09/17 at 13:30 Lactulose (Enulose) 30 gm Q6 PRN PO CONSTIPATION Last administered on 09:34; Admin Dose 30 GM; Start 04/09/17 at 22:30 Ketorolac Tromethamine (Toradol) 15 mg Q6H PRN IV PAIN Last administered on 09:41; Admin Dose 15 MG; Start 04/09/17 at 22:30; Stop 04/12/17 at 22: 29 EDILMA CASIANO Apr 10, 2017 13:37
[2017-04-10 16:14] VITALS: BP 110/59; RESP 18
--- NOTE | 2017-04-10 17:02 | CONS ---
Date/Time of Note Date/Time of Note DATE: 04/10/17 TIME: 16:57 Assessment/Plan Assessment/Plan Problems: (1) Secondary hyperparathyroidism of renal origin Status: Chronic Comment: I am going to repeat her tests especially her ionized calcium. She does have a markedly elevated parathyroid hormone level, note that she is on Sensipar. I am going to repeat her lab tests while on the Sensipar. If she has fairly aggressive PTH levels and elevated ionized calcium in spite of being on Sensipar this indicates tertiary hyperparathyroidism and would be an indication for removal of more of the parathyroid tissue. 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 Status: Chronic Comment: Recheck thyroid function as it is not the current labs (3) Painful thyroid Status: Resolved Comment: She is not complaining of any pain in the neck (4) End stage kidney disease Status: Chronic Comment: As per nephrology (5) Abdominal pain Status: Acute Comment: As per primary team Consultation Date/Type/Reason Admit Date/Time Mar 23, 2017 at 10:28 Date of Consultation: Apr 10, 2017 Type of Consultation: Endocrinology Reason for Consultation Secondary hyperparathyroidism; end-stage renal disease; history of hyperthyroid multinodular goiter; Referring Provider: EDILMA CASIANO Hx of Present Illness 31-year-old female with a history of primary hyperparathyroidism who also had end-stage renal disease induced secondary hyperparathyroidism. In addition to this she had a hyperthyroid multinodular goiter. She had surgery for this in November [address] Chai Morales at which time a parathyroid adenomas removed and one regular parathyroid was removed as well as some thyroid tissue the patient reports she is not having any neck symptoms like she had had in November before surgery but is having enormous amount of pelvic and abdominal pain. I was asked to see the patient as a stat consultation. Constitutional: no complaints (No fevers chills or sweats) Eyes: no complaints ENT: no complaints Respiratory: no complaints Cardiovascular: no complaints Gastrointestinal: pain Past Medical History Medical History: hypertension, hyperthyroid (History hyper thyroid multinodular goiter), renal disease, other (Anabolic bone disease with secondary hyperparathyroidism; history of primary hyperparathyroidism) Past Surgical History Past Surgical Hx: other (Status post hemithyroidectomy with 2 parathyroids at 1 of which was an adenoma) Social History Alcohol Use: none Smoking Status: Never smoker Drug Use: none Exam/Review of Systems Vital Signs Vitals Vital Signs Date Time Temp Pulse Resp B/P Pulse Ox O2 Delivery O2 Flow Rate FiO2 04/10/17 16:14 98.0 93 18 110/59 96 04/09/17 15:00 Nasal Cannula Intake and Output 04/09/17 04/09/17 04/10/17 15:00 23:00 07:00 Intake Total 500 ml 1010 ml 400 ml Output Total 3000 ml 50 ml Balance -2500 ml 1010 ml 350 ml Exam Constitutional: alert, oriented Respiratory: clear to auscultation, normal air movement Cardiovascular: nl pulses, regular rate and rhythm Gastrointestinal: nl liver, spleen, non-tender, soft Results Result Diagram: 04/07/17 0855 04/09/17 1344 Results 24 hrs Laboratory Tests Test 04/10/17 07:47 Lab Scanned Report BLOOD TRANSFUSION Medications Medications Current Medications Cinacalcet (Sensipar) 90 mg DAILY PO Last administered on 04/10/17 09:34; Admin Dose 90 MG; Start 03/23/17 at 21:00 Acetaminophen (Tylenol Tab) 650 mg Q6H PRN PO PAIN AND OR ELEVATED TEMP Last administered on 03/29/17 18:54; Admin Dose 650 MG; Start 03/23/17 at 23:00 Ondansetron HCl (Zofran Inj) 4 mg Q6H PRN IV NAUSEA AND/OR VOMITING Last administered on 04/10/17 13:14; Admin Dose 4 MG; Start 03/23/17 at 23:00 Clotrimazole (Clotrim 1% Vaginal Cr) 1 applic HS VAG Last administered on 04/06 21:00; Admin Dose 1 APPLIC; Start 03/24/17 at 21:00 Epoetin Maxwell (Epogen (Esrd)) 6,000 units MoWeFr@17 IV Last administered on 20:21; Admin Dose 6,000 UNITS; Start 04/07/17 at 17:00 Docusate Sodium (Colace) 100 mg BID PO Last administered on 04/10/17 09:34; Admin Dose 100 MG; Start 04/07/17 at 21:00 Polyethylene Glycol (Miralax) 17 gm DAILY PRN NGT CONSTIPATION Last administered on 04/09/17 20:37; Admin Dose 17 GM; Start 04/07/17 at 14:00 Diphenhydramine HCl (Benadryl) 25 mg Q6H PRN IV ITCHING Last administered on 13:14; Admin Dose 25 MG; Start 04/08/17 at 10:30 Hydromorphone HCl (Dilaudid) 2 mg Q4H PRN PO PAIN Last administered on 19:40; Admin Dose 2 MG; Start 04/09/17 at 13:30 Lactulose (Enulose) 30 gm Q6 PRN PO CONSTIPATION Last administered on 09:34; Admin Dose 30 GM; Start 04/09/17 at 22:30 Ketorolac Tromethamine (Toradol) 15 mg Q6H PRN IV PAIN Last administered on 09:41; Admin Dose 15 MG; Start 04/09/17 at 22:30; Stop 04/12/17 at 22: 29 ESEQUIEL NAPOLES MD Apr 10, 2017 17:02
[2017-04-10 20:00] VITALS: BP 107/56; RESP 18
[2017-04-10] MEDS: CLOTRIMAZOLE 1% 45 GM VAG CR VAG SCH (21:00)
[2017-04-10] MEDS: HYDROmorphONE 2 MG TAB PO PRN (22:22)
[2017-04-11] VITALS (11 sets, daily range): BP systolic 88–158; BP diastolic 47–89; PULSE 85–112; RESP 18
[2017-04-11] MEDS: POLYETHYLENE GLYCOL 17 GM PACKET NGT PRN (00:49)
[2017-04-11] MEDS: DIPHENHYDRAMINE 50 MG INJ IV PRN ×4 (00:49→18:46)
[2017-04-11] MEDS: KETOROLAC 15 MG INJ IV PRN ×3 (00:50→17:33)
[2017-04-11] MEDS: ACETAMINOPHEN 325 MG TAB PO PRN (04:22)
[2017-04-11] MEDS: HYDROmorphONE 2 MG TAB PO PRN ×2 (04:23→11:45)
[2017-04-11] MEDS: LACTULOSE 30ML CUP PO PRN (05:14)
[2017-04-11 05:42] LABS: BASOPHILS % 0.4 % (0.0-2.0); EOSINOPHILS # 0.2 10^3/ul (0.0-0.5); EOSINOPHILS % 2.3 % (0.0-7.0); HEMATOCRIT 28.9 % (37.0-47.0); HEMOGLOBIN 9.7 g/dl (12.0-16.0); LYMPHOCYTES # 1.6 10^3/ul (0.8-2.9); LYMPHOCYTES % 16.9 % (15.0-51.0); MEAN CORPUSCULAR HEMOGLOBIN 33.4 pg (29.0-33.0); MEAN CORPUSCULAR HGB CONC 33.6 g/dl (32.0-37.0); MEAN CORPUSCULAR VOLUME 99.7 fl (82.0-101.0); MEAN PLATELET VOLUME 10.7 fl (7.4-10.4); MONOCYTE # 0.6 10^3/ul (0.3-0.9); MONOCYTES % 6.4 % (0.0-11.0); NEUTROPHILS % 73.4 % (39.0-77.0); PLATELET COUNT 188 10^3/UL (140-415); RED CELL DISTRIBUTION WIDTH 16.4 % (11.5-14.5); WHITE BLOOD COUNT 9.5 10^3/ul (4.8-10.8)
[2017-04-11 07:25] LABS: CALCIUM 9.9 mg/dl (8.4-10.2); CREATININE 9.23 mg/dl (0.44-1.00)
[2017-04-11 07:44] LABS: POTASSIUM 6.2 mmol/L (3.5-5.1)
[2017-04-11] MEDS: SEVELAMER 800 MG TAB PO SCH ×3 (08:22→17:33)
[2017-04-11] MEDS: CALCIUM ACETATE 667 MG CAP PO SCH ×3 (08:22→17:34)
[2017-04-11] MEDS: DOCUSATE SODIUM 100 MG CAP PO SCH ×2 (08:22→21:18)
[2017-04-11] MEDS: CINACALCET 30 MG TAB PO SCH (08:23)
[2017-04-11 08:24] LABS: FREE T3 4.12 pg/ml (2.77-5.27)
[2017-04-11 08:38] LABS: THYROID STIMULATING HORMONE 1.03 MIU/L (0.465-4.680)
--- NOTE | 2017-04-11 09:04 | CONS ---
Date/Time of Note Date/Time of Note DATE: 04/11/17 TIME: 08:58 Assessment/Plan Assessment/Plan Chief Complaint/Hosp Course 31-year-old female with a history of primary hyperparathyroidism who also had end-stage renal disease induced secondary hyperparathyroidism. In addition to this she had a hyperthyroid multinodular goiter. She had surgery for this in November [address] Chai Morales at which time a parathyroid adenomas removed and one regular parathyroid was removed as well as some thyroid tissue the patient reports she is not having any neck symptoms like she had had in November before surgery but is having enormous amount of pelvic and abdominal pain. I was asked to see the patient as a stat consultation. Problems: (1) Secondary hyperparathyroidism of renal origin Status: Chronic Comment: Pending at this time as the repeat parathyroid hormone level. Ionized calcium and serum calcium are normal. This may very well represent to the benefits of the treatment with Sensipar which is being done at relatively high dose. If the parathyroid hormone level is markedly elevated in spite of this high dose of Sensipar that would be an indication for surgical evaluation for further parathyroid reduction. Please see the notes from Dr. Jc and from nephrology. For now continue treatment without changes pending the test results. Please note it is possible in the setting to get bony tumors which may explain the pelvic lesion but may not. This however would not give positive beta hCG and an ovarian mass. (2) Lesion of pelvic bone Status: Chronic Comment: She has had a biopsy that was benign however there was significant amount of editorial comment with the biopsy. Consideration could be given toward repeat biopsy however I am far more interested in the formalized opinion regarding the ovarian mass. 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 No additional treatment is indicated. (4) End stage kidney disease Status: Chronic Comment: As per nephrology. (5) Ovarian mass, left Status: Acute Comment: The patient been seen in consultation by our ASSEMBLING INSPECTOR colleagues who had recommended intervention. However since the MRI scan of the pelvis and abdomen was completed there have been no further notes documented into the chart. I am curious as to where we are going forward with this. (6) Anemia Status: Chronic Comment: Noted. Consider adjustment of Epogen Qualifiers: Anemia type: due to chronic kidney disease Consultation Date/Type/Reason Admit Date/Time Mar 23, 2017 at 10:28 Initial Consult Date 04/10/17 Type of Consultation: Endocrinology Reason for Consultation Hyperparathyroidism-tertiary due to end-stage renal disease; history of thyrotoxicosis Referring Provider: EDILMA CASIANO 24 HR Interval Summary Free Text/Dictation Patient without endocrine review of systems abnormalities. Still curious about her abdominal pain. Exam/Review of Systems Vital Signs Vitals Vital Signs Date Time Temp Pulse Resp B/P Pulse Ox O2 Delivery O2 Flow Rate FiO2 04/11/17 08:45 97.7 94 18 119/70 97 04/09/17 15:00 Nasal Cannula Intake and Output 04/10/17 04/10/17 04/11/17 15:00 23:00 07:00 Intake Total 700 ml 550 ml Output Total 500 ml Balance 700 ml 50 ml Results No changes in exam Result Diagram: 04/11/17 0452 04/11/17 0452 Results 24 hrs Laboratory Tests Test 04/11/17 04:52 White Blood Count 9.5 Red Blood Count 2.90 #L Hemoglobin 9.7 #L Hematocrit 28.9 #L Mean Corpuscular Volume 99.7 Mean Corpuscular Hemoglobin 33.4 H Mean Corpuscular Hemoglobin Concent 33.6 Red Cell Distribution Width 16.4 H Platelet Count 188 # Mean Platelet Volume 10.7 H Neutrophils % 73.4 Lymphocytes % 16.9 Monocytes % 6.4 Eosinophils % 2.3 Basophils % 0.4 Nucleated Red Blood Cells % 0.0 Neutrophils # 7.0 Lymphocytes # 1.6 Monocytes # 0.6 Eosinophils # 0.2 Basophils # 0.0 Nucleated Red Blood Cells # 0.0 Sodium Level 136 Potassium Level 6.2 #*H Chloride Level 95 L Carbon Dioxide Level 21 Anion Gap 26 H Blood Urea Nitrogen 98 #H Creatinine 9.23 #H Glucose Level 74 # Calcium Level 9.9 Ionized Calcium (Measured) 1.3 Thyroid Stimulating Hormone (TSH) 1.030 Free Thyroxine 0.49 L Free Triiodothyronine (T3) pg/mL 4.12 Medications Medications Current Medications Cinacalcet (Sensipar) 90 mg DAILY PO Last administered on 04/11/17t 08:23; Admin Dose 90 MG; Start 03/23/17 at 21:00 Acetaminophen (Tylenol Tab) 650 mg Q6H PRN PO PAIN AND OR ELEVATED TEMP Last administered on 04/11/17 04:22; Admin Dose 650 MG; Start 03/23/17 at 23:00 Ondansetron HCl (Zofran Inj) 4 mg Q6H PRN IV NAUSEA AND/OR VOMITING Last administered on 04/10/17 13:14; Admin Dose 4 MG; Start 03/23/17 at 23:00 Clotrimazole (Clotrim 1% Vaginal Cr) 1 applic HS VAG Last administered on 04/06 21:00; Admin Dose 1 APPLIC; Start 03/24/17 at 21:00 Epoetin Maxwell (Epogen (Esrd)) 6,000 units MoWeFr@17 IV Last administered on 20:21; Admin Dose 6,000 UNITS; Start 04/07/17 at 17:00 Docusate Sodium (Colace) 100 mg BID PO Last administered on 04/11/17 08:22; Admin Dose 100 MG; Start 04/07/17 at 21:00 Polyethylene Glycol (Miralax) 17 gm DAILY PRN NGT CONSTIPATION Last administered on 04/11/17 00:49; Admin Dose 17 GM; Start 04/07/17 at 14:00 Diphenhydramine HCl (Benadryl) 25 mg Q6H PRN IV ITCHING Last administered on 06:55; Admin Dose 25 MG; Start 04/08/17 at 10:30 Hydromorphone HCl (Dilaudid) 2 mg Q4H PRN PO PAIN Last administered on 04:23; Admin Dose 2 MG; Start 04/09/17 at 13:30 Lactulose (Enulose) 30 gm Q6 PRN PO CONSTIPATION Last administered on 05:14; Admin Dose 30 GM; Start 04/09/17 at 22:30 Ketorolac Tromethamine (Toradol) 15 mg Q6H PRN IV PAIN Last administered on 08:19; Admin Dose 15 MG; Start 04/09/17 at 22:30; Stop 04/12/17 at 22: 29 ESEQUIEL NAPOLES MD Apr 11, 2017 09:04
--- NOTE | 2017-04-11 11:33 | PN ---
Date/Time of Note Date/Time of Note DATE: 04/11/17 TIME: 11:32 Assessment/Plan VTE Prophylaxis VTE Prophylaxis Intervention: other Assessment/Plan Chief Complaint/Hosp Course esrd sec hyperparathyroidism ovarian cyst pain hd per plan [id number] pt need elective admission for parathyroidectomy ok to dc after hd [id number] hd plan today k increased Problems: Subjective 24 Hr Interval Summary Gastrointestinal: pain Exam/Review of Systems Vital Signs Vitals Vital Signs Date Time Temp Pulse Resp B/P Pulse Ox O2 Delivery O2 Flow Rate FiO2 04/11/17 08:45 97.7 94 18 119/70 97 04/09/17 15:00 Nasal Cannula Intake and Output 04/10/17 04/10/17 04/11/17 15:00 23:00 07:00 Intake Total 700 ml 550 ml Output Total 500 ml Balance 700 ml 50 ml Exam Constitutional: alert, oriented Psych: no complaints Head: normocephalic ENMT: nl external ears & nose, nl lips & teeth Neck: non-tender, supple Respiratory: clear to auscultation, normal air movement Cardiovascular: nl pulses, regular rate and rhythm Gastrointestinal: nl liver, spleen, soft Results Result Diagram: 04/11/17 0452 04/11/17 0452 Results 24 hrs Laboratory Tests Test 04/11/17 04:52 04/11/17 08:46 White Blood Count 9.5 Red Blood Count 2.90 #L Hemoglobin 9.7 #L Hematocrit 28.9 #L Mean Corpuscular Volume 99.7 Mean Corpuscular Hemoglobin 33.4 H Mean Corpuscular Hemoglobin Concent 33.6 Red Cell Distribution Width 16.4 H Platelet Count 188 # Mean Platelet Volume 10.7 H Neutrophils % 73.4 Lymphocytes % 16.9 Monocytes % 6.4 Eosinophils % 2.3 Basophils % 0.4 Nucleated Red Blood Cells % 0.0 Neutrophils # 7.0 Lymphocytes # 1.6 Monocytes # 0.6 Eosinophils # 0.2 Basophils # 0.0 Nucleated Red Blood Cells # 0.0 Sodium Level 136 Potassium Level 6.2 #*H Chloride Level 95 L Carbon Dioxide Level 21 Anion Gap 26 H Blood Urea Nitrogen 98 #H Creatinine 9.23 #H Glucose Level 74 # Calcium Level 9.9 Ionized Calcium (Measured) 1.3 Thyroid Stimulating Hormone (TSH) 1.030 Free Thyroxine 0.49 L Free Triiodothyronine (T3) pg/mL 4.12 Parathyroid Hormone (Intact) Beta HCG, Quantitative 17.0 Medications Medications Current Medications Cinacalcet (Sensipar) 90 mg DAILY PO Last administered on 04/11/17 08:23; Admin Dose 90 MG; Start 03/23/17 at 21:00 Acetaminophen (Tylenol Tab) 650 mg Q6H PRN PO PAIN AND OR ELEVATED TEMP Last administered on 04/11/17 04:22; Admin Dose 650 MG; Start 03/23/17 at 23:00 Ondansetron HCl (Zofran Inj) 4 mg Q6H PRN IV NAUSEA AND/OR VOMITING Last administered on 04/10/17 13:14; Admin Dose 4 MG; Start 03/23/17 at 23:00 Clotrimazole (Clotrim 1% Vaginal Cr) 1 applic HS VAG Last administered on 04/06 21:00; Admin Dose 1 APPLIC; Start 03/24/17 at 21:00 Epoetin Maxwell (Epogen (Esrd)) 6,000 units MoWeFr@17 IV Last administered on 20:21; Admin Dose 6,000 UNITS; Start 04/07/17 at 17:00 Docusate Sodium (Colace) 100 mg BID PO Last administered on 04/11/17 08:22; Admin Dose 100 MG; Start 04/07/17 at 21:00 Polyethylene Glycol (Miralax) 17 gm DAILY PRN NGT CONSTIPATION Last administered on 04/11/17 00:49; Admin Dose 17 GM; Start 04/07/17 at 14:00 Diphenhydramine HCl (Benadryl) 25 mg Q6H PRN IV ITCHING Last administered on 06:55; Admin Dose 25 MG; Start 04/08/17 at 10:30 Hydromorphone HCl (Dilaudid) 2 mg Q4H PRN PO PAIN Last administered on 04:23; Admin Dose 2 MG; Start 04/09/17 at 13:30 Lactulose (Enulose) 30 gm Q6 PRN PO CONSTIPATION Last administered on 05:14; Admin Dose 30 GM; Start 04/09/17 at 22:30 Ketorolac Tromethamine (Toradol) 15 mg Q6H PRN IV PAIN Last administered on t 08:19; Admin Dose 15 MG; Start 04/09/17 at 22:30; Stop 04/12/17 at 22: 29 ANNIE SANTOS MD Apr 11, 2017 11:33
--- NOTE | 2017-04-11 17:01 | PN ---
Date/Time of Note Date/Time of Note DATE: 04/11/17 TIME: 16:55 Assessment/Plan VTE Prophylaxis VTE Prophylaxis Intervention: other Assessment/Plan Assessment/Plan -Multiple T12 osseous lesions per MRI, status post biopsy of right iliac bone by radiology which revealed cystic contents but no identifiable malignancy , possibly "brown tumor". Bone scan is nondiagnostic. Dr. Jc is following in oncology consultation. 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 Dr. Nagy is following in orthopedic surgery consultation. Status post steroid injection into the left knee. -Abdominal pain, continue morphine for pain and Zofran as needed for nausea. -Right ovarian cystic lesion per MRI, No evidence of torsion. Tumor markers not elevated. Diagnostic laparoscopy and possible ovarian cystectomy is recommended. DOCTOR OF NURSE ANESTHESIA is following. -End-stage renal disease, patient had a last hemodialysis yesterday. is following in nephrology consultation. -Secondary hyperparathyroidism of renal origin, s/p partial left thyroid lobectomy, left upper and lower parathyroidectomy in [place] [address] Morales. Per discussion with patient's manager beauty in our nephrology colleague patient will undergo surgery as an outpatient. Discussed with Dr. Morales, if there is no urgency patient will follow up with ENT surgeon as an outpatient. -Anemia of chronic disease, continue Epogen Further recommendations based on clinical course. Plan of care discussed with Dr. Turner. Subjective 24 Hr Interval Summary Free Text/Dictation insisting to get morphine only for pain relieve. jeyson Turner- no change in pain med d/t patient gets badly constipated. Jeyson De La Fuente- recommedation to repeat Iliac crest - will do courtesy call to OBGYN and ENT to FU - Exam/Review of Systems Vital Signs Vitals Vital Signs Date Time Temp Pulse Resp B/P Pulse Ox O2 Delivery O2 Flow Rate FiO2 04/11/17 15:15 95 04/11/17 15:15 24 04/11/17 08:45 97.7 119/70 97 04/09/17 15:00 Nasal Cannula Intake and Output 04/10/17 04/10/17 04/11/17 15:00 23:00 07:00 Intake Total 700 ml 550 ml Output Total 500 ml Balance 700 ml 50 ml Results Result Diagram: 04/11/17 0452 04/11/17 0452 Results 24 hrs Laboratory Tests Test 04/11/17 04:52 04/11/17 08:46 White Blood Count 9.5 Red Blood Count 2.90 #L Hemoglobin 9.7 #L Hematocrit 28.9 #L Mean Corpuscular Volume 99.7 Mean Corpuscular Hemoglobin 33.4 H Mean Corpuscular Hemoglobin Concent 33.6 Red Cell Distribution Width 16.4 H Platelet Count 188 # Mean Platelet Volume 10.7 H Neutrophils % 73.4 Lymphocytes % 16.9 Monocytes % 6.4 Eosinophils % 2.3 Basophils % 0.4 Nucleated Red Blood Cells % 0.0 Neutrophils # 7.0 Lymphocytes # 1.6 Monocytes # 0.6 Eosinophils # 0.2 Basophils # 0.0 Nucleated Red Blood Cells # 0.0 Sodium Level 136 Potassium Level 6.2 #*H Chloride Level 95 L Carbon Dioxide Level 21 Anion Gap 26 H Blood Urea Nitrogen 98 #H Creatinine 9.23 #H Glucose Level 74 # Calcium Level 9.9 Ionized Calcium (Measured) 1.3 Thyroid Stimulating Hormone (TSH) 1.030 Free Thyroxine 0.49 L Free Triiodothyronine (T3) pg/mL 4.12 Parathyroid Hormone (Intact) Beta HCG, Quantitative 17.0 Medications Medications Current Medications Cinacalcet (Sensipar) 90 mg DAILY PO Last administered on 04/11/17 08:23; Admin Dose 90 MG; Start 03/23/17 at 21:00 Acetaminophen (Tylenol Tab) 650 mg Q6H PRN PO PAIN AND OR ELEVATED TEMP Last administered on 04/11/17 04:22; Admin Dose 650 MG; Start 03/23/17 at 23:00 Ondansetron HCl (Zofran Inj) 4 mg Q6H PRN IV NAUSEA AND/OR VOMITING Last administered on 04/10/17 13:14; Admin Dose 4 MG; Start 03/23/17 at 23:00 Clotrimazole (Clotrim 1% Vaginal Cr) 1 applic HS VAG Last administered on 04/06 21:00; Admin Dose 1 APPLIC; Start 03/24/17 at 21:00 Epoetin Maxwell (Epogen (Esrd)) 6,000 units MoWeFr@17 IV Last administered on 20:21; Admin Dose 6,000 UNITS; Start 12/13/17 at 17:00 Docusate Sodium (Colace) 100 mg BID PO Last administered on 04/11/17 08:22; Admin Dose 100 MG; Start 04/07/17 at 21:00 Polyethylene Glycol (Miralax) 17 gm DAILY PRN NGT CONSTIPATION Last administered on 04/11/17 00:49; Admin Dose 17 GM; Start 04/07/17 at 14:00 Diphenhydramine HCl (Benadryl) 25 mg Q6H PRN IV ITCHING Last administered on 13:01; Admin Dose 25 MG; Start 04/08/17 at 10:30 Hydromorphone HCl (Dilaudid) 2 mg Q4H PRN PO PAIN Last administered on 11:45; Admin Dose 2 MG; Start 04/09/17 at 13:30 Lactulose (Enulose) 30 gm Q6 PRN PO CONSTIPATION Last administered on 05:14; Admin Dose 30 GM; Start 04/09/17 at 22:30 Ketorolac Tromethamine (Toradol) 15 mg Q6H PRN IV PAIN Last administered on 08:19; Admin Dose 15 MG; Start 04/09/17 at 22:30; Stop 04/12/17 at 22: 29 EDILMA CASIANO Apr 11, 2017 17:01
[2017-04-11] MEDS: CLOTRIMAZOLE 1% 45 GM VAG CR VAG SCH (21:18)
[2017-04-12] VITALS (8 sets, daily range): BP systolic 95–103; BP diastolic 47–57; PULSE 87–89; RESP 18–20
[2017-04-12] MEDS: DIPHENHYDRAMINE 50 MG INJ IV PRN ×4 (00:46→18:56)
[2017-04-12] MEDS: HYDROmorphONE 2 MG TAB PO PRN ×2 (00:46→07:04)
[2017-04-12 05:30] LABS: BASOPHILS % 0.2 % (0.0-2.0); EOSINOPHILS # 0.1 10^3/ul (0.0-0.5); EOSINOPHILS % 1.4 % (0.0-7.0); HEMATOCRIT 29.5 % (37.0-47.0); HEMOGLOBIN 9.7 g/dl (12.0-16.0); LYMPHOCYTES # 1.4 10^3/ul (0.8-2.9); LYMPHOCYTES % 13.9 % (15.0-51.0); MEAN CORPUSCULAR HEMOGLOBIN 33.2 pg (29.0-33.0); MEAN CORPUSCULAR HGB CONC 32.9 g/dl (32.0-37.0); MEAN PLATELET VOLUME 10.4 fl (7.4-10.4); MONOCYTE # 0.6 10^3/ul (0.3-0.9); MONOCYTES % 5.9 % (0.0-11.0); NEUTROPHILS % 78.3 % (39.0-77.0); PLATELET COUNT 186 10^3/UL (140-415); RED BLOOD COUNT 2.92 10^6/ul (4.20-5.40); WHITE BLOOD COUNT 10.2 10^3/ul (4.8-10.8)
[2017-04-12 06:00] LABS: CALCIUM 9.2 mg/dl (8.4-10.2); CREATININE 6.9 mg/dl (0.44-1.00); POTASSIUM 5.6 mmol/L (3.5-5.1)
[2017-04-12] MEDS: CALCIUM ACETATE 667 MG CAP PO SCH ×3 (08:26→17:12)
[2017-04-12] MEDS: CINACALCET 30 MG TAB PO SCH (08:27)
[2017-04-12] MEDS: SEVELAMER 800 MG TAB PO SCH ×3 (08:27→17:13)
[2017-04-12] MEDS: DOCUSATE SODIUM 100 MG CAP PO SCH ×2 (08:27→21:05)
[2017-04-12] MEDS: KETOROLAC 15 MG INJ IV PRN ×2 (10:34→17:09)
--- NOTE | 2017-04-12 13:44 | CONS ---
Date/Time of Note Date/Time of Note DATE: 04/12/17 TIME: 13:39 Assessment/Plan Assessment/Plan Chief Complaint/Hosp Course 31-year-old female with a history of primary hyperparathyroidism who also had end-stage renal disease induced secondary hyperparathyroidism. In addition to this she had a hyperthyroid multinodular goiter. She had surgery for this in November [address] Chai Morales at which time a parathyroid adenomas removed and one regular parathyroid was removed as well as some thyroid tissue the patient reports she is not having any neck symptoms like she had had in November before surgery but is having enormous amount of pelvic and abdominal pain. I was asked to see the patient as a stat consultation. Problems: (1) Secondary hyperparathyroidism of renal origin Status: Chronic Comment: Parathyroid hormone levels are still pending from the outside lab. As noted in my prior dictations she very likely will need further parathyroid reduction surgery. Whether that some of this hospitalization or at a subsequent visit will be determined by the primary care team. These see their comments regarding the ENT discussions (2) Lesion of pelvic bone Status: Chronic Comment: I am not certain that repeating the biopsy this will yield any additional information but will defer off to the primary team and hematology oncology consultants. I am more concerned about the ovarian lesion 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 Status: Resolved Comment: This was resolved with surgery in November (4) Ovarian mass, left Status: Acute Comment: She has a positive test consistently and has this mass lesion. While there are no written notes in the chart after March 27 from the SECTION [employer] datapower consultant team I believe that she may need this to be dealt with. Regardless this seems to be a source of pain. If this is not going to be dealt with at this time then she should be discharged to follow-up as an outpatient. (5) End stage kidney disease Status: Chronic Comment: As per nephrology Additional Assessment/Plan I will sign off the case at this point in time Consultation Date/Type/Reason Admit Date/Time Mar 23, 2017 at 10:28 Initial Consult Date 04/10/17 Type of Consultation: Endocrinology Reason for Consultation Patient complains of lower abdominal pain but no neck pain. Negative endocrine review of systems. Referring Provider: EDILMA CASIANO 24 HR Interval Summary Constitutional: no complaints (No fevers chills or sweats) Detailed Summary Respiratory: no complaints Cardiovascular: no complaints Gastrointestinal: no complaints Exam/Review of Systems Vital Signs Vitals Vital Signs Date Time Temp Pulse Resp B/P Pulse Ox O2 Delivery O2 Flow Rate FiO2 04/12/17 07:31 98.7 97 20 95/47 99 04/09/17 15:00 Nasal Cannula Intake and Output 04/11/17 04/11/17 04/12/17 15:00 23:00 07:00 Intake Total 1200 ml 400 ml Output Total 2000 ml Balance -800 ml 400 ml Exam Specifically denies jaw pain or jaw symptoms Constitutional: alert, oriented Neck: non-tender, other (Midline surgical scar no masses), supple Results Result Diagram: 04/12/17 0458 04/12/17 0458 Results 24 hrs Laboratory Tests Test 04/12/17 04:58 White Blood Count 10.2 Red Blood Count 2.92 L Hemoglobin 9.7 L Hematocrit 29.5 L Mean Corpuscular Volume 101.0 Mean Corpuscular Hemoglobin 33.2 H Mean Corpuscular Hemoglobin Concent 32.9 Red Cell Distribution Width 16.0 H Platelet Count 186 Mean Platelet Volume 10.4 Neutrophils % 78.3 H Lymphocytes % 13.9 L Monocytes % 5.9 Eosinophils % 1.4 Basophils % 0.2 Nucleated Red Blood Cells % 0.0 Neutrophils # 8.0 H Lymphocytes # 1.4 Monocytes # 0.6 Eosinophils # 0.1 Basophils # 0.0 Nucleated Red Blood Cells # 0.0 Sodium Level 134 L Potassium Level 5.6 H Chloride Level 88 L Carbon Dioxide Level 27 Anion Gap 25 H Blood Urea Nitrogen 58 #H Creatinine 6.90 #H Glucose Level 64 #L Calcium Level 9.2 Medications Medications Current Medications Cinacalcet (Sensipar) 90 mg DAILY PO Last administered on 04/12/17 08:27; Admin Dose 90 MG; Start 03/23/17 at 21:00 Acetaminophen (Tylenol Tab) 650 mg Q6H PRN PO PAIN AND OR ELEVATED TEMP Last administered on 04/11/17 04:22; Admin Dose 650 MG; Start 03/23/17 at 23:00 Ondansetron HCl (Zofran Inj) 4 mg Q6H PRN IV NAUSEA AND/OR VOMITING Last administered on 04/10/17 13:14; Admin Dose 4 MG; Start 03/23/17 at 23:00 Clotrimazole (Clotrim 1% Vaginal Cr) 1 applic HS VAG Last administered on 04/11 21:18; Admin Dose 1 APPLIC; Start 03/24/17 at 21:00 Epoetin Maxwell (Epogen (Esrd)) 6,000 units MoWeFr@17 IV Last administered on 20:21; Admin Dose 6,000 UNITS; Start 04/07/17 at 17:00 Docusate Sodium (Colace) 100 mg BID PO Last administered on 04/12/17 08:27; Admin Dose 100 MG; Start 04/07/17 at 21:00 Polyethylene Glycol (Miralax) 17 gm DAILY PRN NGT CONSTIPATION Last administered on 04/11/17 00:49; Admin Dose 17 GM; Start 04/07/17 at 14:00 Diphenhydramine HCl (Benadryl) 25 mg Q6H PRN IV ITCHING Last administered on 12:58; Admin Dose 25 MG; Start 04/08/17 at 10:30 Hydromorphone HCl (Dilaudid) 2 mg Q4H PRN PO PAIN Last administered on 07:04; Admin Dose 2 MG; Start 04/09/17 at 13:30 Lactulose (Enulose) 30 gm Q6 PRN PO CONSTIPATION Last administered on 05:14; Admin Dose 30 GM; Start 04/09/17 at 22:30 Ketorolac Tromethamine (Toradol) 15 mg Q6H PRN IV PAIN Last administered on 10:34; Admin Dose 15 MG; Start 04/09/17 at 22:30; Stop 04/12/17 at 22: 29 ESEQUIEL NAPOLES MD Apr 12, 2017 13:44
--- NOTE | 2017-04-12 13:57 | CONS ---
Date/Time of Note Date/Time of Note DATE: 04/12/17 TIME: 13:56 Assessment/Plan Assessment/Plan Additional Assessment/Plan 31 yo Female with 1) Abdominal pain 2) Left ovarian mass 3) End-stage renal disease 4) MBD Secondary hyperparathyroidism , s/p partial left thyroid lobectomy, left upper and lower parathyroidectomy in [place] [address] Morales. 5) Anemia Chronic Disease 6) Hyperkalemia 7) Lytic lesion bone, S/p Bx, ? Brown Tumor HD today MWF schedule Clearance only Consultation Date/Type/Reason Admit Date/Time Mar 23, 2017 at 10:28 Type of Consultation: Renal Referring Provider: EDILMA CASIANO Exam/Review of Systems Vital Signs Vitals Vital Signs Date Time Temp Pulse Resp B/P Pulse Ox O2 Delivery O2 Flow Rate FiO2 04/12/17 07:31 98.7 97 20 95/47 99 04/09/17 15:00 Nasal Cannula Intake and Output 04/11/17 04/11/17 04/12/17 15:00 23:00 07:00 Intake Total 1200 ml 400 ml Output Total 2000 ml Balance -800 ml 400 ml Exam Constitutional: No distress ENMT: mucosa pink and moist Neck: No jvd Respiratory: clear to auscultation Cardiovascular: regular rate and rhythm, No edema Gastrointestinal: soft 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: nl mental status Results Result Diagram: 04/12/17 0458 04/12/17 0458 Results 24 hrs Laboratory Tests Test 04/12/17 04:58 White Blood Count 10.2 Red Blood Count 2.92 L Hemoglobin 9.7 L Hematocrit 29.5 L Mean Corpuscular Volume 101.0 Mean Corpuscular Hemoglobin 33.2 H Mean Corpuscular Hemoglobin Concent 32.9 Red Cell Distribution Width 16.0 H Platelet Count 186 Mean Platelet Volume 10.4 Neutrophils % 78.3 H Lymphocytes % 13.9 L Monocytes % 5.9 Eosinophils % 1.4 Basophils % 0.2 Nucleated Red Blood Cells % 0.0 Neutrophils # 8.0 H Lymphocytes # 1.4 Monocytes # 0.6 Eosinophils # 0.1 Basophils # 0.0 Nucleated Red Blood Cells # 0.0 Sodium Level 134 L Potassium Level 5.6 H Chloride Level 88 L Carbon Dioxide Level 27 Anion Gap 25 H Blood Urea Nitrogen 58 #H Creatinine 6.90 #H Glucose Level 64 #L Calcium Level 9.2 Medications Medications Current Medications Cinacalcet (Sensipar) 90 mg DAILY PO Last administered on 04/12/17 08:27; Admin Dose 90 MG; Start 03/23/17 at 21:00 Acetaminophen (Tylenol Tab) 650 mg Q6H PRN PO PAIN AND OR ELEVATED TEMP Last administered on 04/11/17 04:22; Admin Dose 650 MG; Start 03/23/17 at 23:00 Ondansetron HCl (Zofran Inj) 4 mg Q6H PRN IV NAUSEA AND/OR VOMITING Last administered on 04/10/17 13:14; Admin Dose 4 MG; Start 03/23/17 at 23:00 Clotrimazole (Clotrim 1% Vaginal Cr) 1 applic HS VAG Last administered on 04/11 21:18; Admin Dose 1 APPLIC; Start 03/24/17 at 21:00 Epoetin Maxwell (Epogen (Esrd)) 6,000 units MoWeFr@17 IV Last administered on 20:21; Admin Dose 6,000 UNITS; Start 04/07/17 at 17:00 Docusate Sodium (Colace) 100 mg BID PO Last administered on 04/12/17 08:27; Admin Dose 100 MG; Start 04/07/17 at 21:00 Polyethylene Glycol (Miralax) 17 gm DAILY PRN NGT CONSTIPATION Last administered on 04/11/17 00:49; Admin Dose 17 GM; Start 04/07/17 at 14:00 Diphenhydramine HCl (Benadryl) 25 mg Q6H PRN IV ITCHING Last administered on 12:58; Admin Dose 25 MG; Start 04/08/17 at 10:30 Hydromorphone HCl (Dilaudid) 2 mg Q4H PRN PO PAIN Last administered on 07:04; Admin Dose 2 MG; Start 04/09/17 at 13:30 Lactulose (Enulose) 30 gm Q6 PRN PO CONSTIPATION Last administered on 05:14; Admin Dose 30 GM; Start 04/09/17 at 22:30 Ketorolac Tromethamine (Toradol) 15 mg Q6H PRN IV PAIN Last administered on 10:34; Admin Dose 15 MG; Start 04/09/17 at 22:30; Stop 04/12/17 at 22: 29 JUANJO TATUM MD Apr 12, 2017 13:57
--- NOTE | 2017-04-12 15:37 | PN ---
Date/Time of Note Date/Time of Note DATE: 04/12/17 TIME: 15:34 Assessment/Plan VTE Prophylaxis VTE Prophylaxis Intervention: SCD's Lines/Catheters IV [facility] Assessment/Plan Chief Complaint/Hosp Course Repeat MRI of abdomen and pelvis shows Stable right adnexal cystic structure. Per HAIR WEAVER no intervention splint patient needs to follow-up with HAIR WEAVER as an outpatient. Patient was hyperkalemia, today will undergo hemodialysis. Plan discharge discharge home after hemodialysis tomorrow. 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 Bone scan is nondiagnostic. Dr. Jc is following in oncology consultation. 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 Dr. Nagy is following in orthopedic surgery consultation. Status post steroid injection into the left knee. -Abdominal pain, continue morphine for pain and Zofran as needed for nausea. -Right ovarian cystic lesion per MRI, No evidence of torsion. Tumor markers not elevated. Diagnostic laparoscopy and possible ovarian cystectomy is recommended. HAIR WEAVER is following. -End-stage renal disease, patient had a last hemodialysis yesterday. is following in nephrology consultation. -Secondary hyperparathyroidism of renal origin, s/p partial left thyroid lobectomy, left upper and lower parathyroidectomy in [place] [address] Morales. Per discussion with patient's wheel loader operator in our nephrology colleague patient will undergo surgery as an outpatient. Discussed with Dr. Morales, if there is no urgency patient will follow up with ENT surgeon as an outpatient. -Anemia of chronic disease, continue Epogen Further recommendations based on clinical course. Plan of care discussed with Dr. Turner. Problems: Exam/Review of Systems Vital Signs Vitals Vital Signs Date Time Temp Pulse Resp B/P Pulse Ox O2 Delivery O2 Flow Rate FiO2 04/12/17 14:37 98.3 91 20 100/51 96 04/09/17 15:00 Nasal Cannula Intake and Output 04/11/17 04/11/17 04/12/17 15:00 23:00 07:00 Intake Total 1200 ml 400 ml Output Total 2000 ml Balance -800 ml 400 ml Exam Constitutional: alert, oriented Respiratory: normal air movement Cardiovascular: nl pulses Gastrointestinal: soft, tender Musculoskeletal: nl extremities to inspection Extremities: normal pulses, other (Left upper extremity fistula) Results Result Diagram: 04/12/178 04/12/17 0458 Results 24 hrs Laboratory Tests Test 04/12/17 04:58 White Blood Count 10.2 Red Blood Count 2.92 L Hemoglobin 9.7 L Hematocrit 29.5 L Mean Corpuscular Volume 101.0 Mean Corpuscular Hemoglobin 33.2 H Mean Corpuscular Hemoglobin Concent 32.9 Red Cell Distribution Width 16.0 H Platelet Count 186 Mean Platelet Volume 10.4 Neutrophils % 78.3 H Lymphocytes % 13.9 L Monocytes % 5.9 Eosinophils % 1.4 Basophils % 0.2 Nucleated Red Blood Cells % 0.0 Neutrophils # 8.0 H Lymphocytes # 1.4 Monocytes # 0.6 Eosinophils # 0.1 Basophils # 0.0 Nucleated Red Blood Cells # 0.0 Sodium Level 134 L Potassium Level 5.6 H Chloride Level 88 L Carbon Dioxide Level 27 Anion Gap 25 H Blood Urea Nitrogen 58 #H Creatinine 6.90 #H Glucose Level 64 #L Calcium Level 9.2 Medications Medications Current Medications Cinacalcet (Sensipar) 90 mg DAILY PO Last administered on 04/12/17 08:27; Admin Dose 90 MG; Start 03/23/17 at 21:00 Acetaminophen (Tylenol Tab) 650 mg Q6H PRN PO PAIN AND OR ELEVATED TEMP Last administered on 04/11/17 04:22; Admin Dose 650 MG; Start 03/23/17 at 23:00 Ondansetron HCl (Zofran Inj) 4 mg Q6H PRN IV NAUSEA AND/OR VOMITING Last administered on 04/10/17 13:14; Admin Dose 4 MG; Start 03/23/17 at 23:00 Clotrimazole (Clotrim 1% Vaginal Cr) 1 applic HS VAG Last administered on 04/11 21:18; Admin Dose 1 APPLIC; Start 03/24/17 at 21:00 Epoetin Maxwell (Epogen (Esrd)) 6,000 units MoWeFr@17 IV Last administered on 20:21; Admin Dose 6,000 UNITS; Start 04/07/17 at 17:00 Docusate Sodium (Colace) 100 mg BID PO Last administered on 04/12/17 08:27; Admin Dose 100 MG; Start 04/07/17 at 21:00 Polyethylene Glycol (Miralax) 17 gm DAILY PRN NGT CONSTIPATION Last administered on 04/11/17 00:49; Admin Dose 17 GM; Start 04/07/17 at 14:00 Diphenhydramine HCl (Benadryl) 25 mg Q6H PRN IV ITCHING Last administered on 12:58; Admin Dose 25 MG; Start 04/08/17 at 10:30 Hydromorphone HCl (Dilaudid) 2 mg Q4H PRN PO PAIN Last administered on 07:04; Admin Dose 2 MG; Start 04/09/17 at 13:30 Lactulose (Enulose) 30 gm Q6 PRN PO CONSTIPATION Last administered on 05:14; Admin Dose 30 GM; Start 04/09/17 at 22:30 Ketorolac Tromethamine (Toradol) 15 mg Q6H PRN IV PAIN Last administered on 10:34; Admin Dose 15 MG; Start 04/09/17 at 22:30; Stop 04/12/17 at 22: 29 ERICK ROBERTSON Apr 12, 2017 15:37
[2017-04-12] MEDS: ONDANSETRON 4 MG INJ IV PRN (17:09)
[2017-04-12] MEDS: EPOETIN 3000 UNITS/1 ML INJ (ESRD) IV SCH (17:14)
[2017-04-12] MEDS: CLOTRIMAZOLE 1% 45 GM VAG CR VAG SCH (21:00)
[2017-04-13] MEDS: HYDROmorphONE 2 MG TAB PO PRN ×4 (00:12→16:54)
[2017-04-13] MEDS: DIPHENHYDRAMINE 50 MG INJ IV PRN ×3 (01:04→13:07)
[2017-04-13 06:34] LABS: BASOPHILS % 0.3 % (0.0-2.0); EOSINOPHILS # 0.1 10^3/ul (0.0-0.5); EOSINOPHILS % 1.4 % (0.0-7.0); HEMATOCRIT 30.4 % (37.0-47.0); HEMOGLOBIN 9.9 g/dl (12.0-16.0); LYMPHOCYTES # 1.2 10^3/ul (0.8-2.9); LYMPHOCYTES % 15.8 % (15.0-51.0); MEAN CORPUSCULAR HEMOGLOBIN 33.4 pg (29.0-33.0); MEAN CORPUSCULAR HGB CONC 32.6 g/dl (32.0-37.0); MEAN CORPUSCULAR VOLUME 102.7 fl (82.0-101.0); MEAN PLATELET VOLUME 10.2 fl (7.4-10.4); MONOCYTE # 0.6 10^3/ul (0.3-0.9); MONOCYTES % 7.2 % (0.0-11.0); NEUTROPHIL # 5.8 10^3/ul (1.6-7.5); NEUTROPHILS % 74.9 % (39.0-77.0); PLATELET COUNT 204 10^3/UL (140-415); RED BLOOD COUNT 2.96 10^6/ul (4.20-5.40); RED CELL DISTRIBUTION WIDTH 15.9 % (11.5-14.5); WHITE BLOOD COUNT 7.7 10^3/ul (4.8-10.8)
[2017-04-13 07:02] LABS: CALCIUM 10.4 mg/dl (8.4-10.2); CREATININE 6.05 mg/dl (0.44-1.00); POTASSIUM 4.7 mmol/L (3.5-5.1)
[2017-04-13 08:20] VITALS: BP 97/51; RESP 18
[2017-04-13] MEDS: CINACALCET 30 MG TAB PO SCH (08:53)
[2017-04-13] MEDS: CALCIUM ACETATE 667 MG CAP PO SCH ×2 (08:53→12:37)
[2017-04-13] MEDS: DOCUSATE SODIUM 100 MG CAP PO SCH (08:53)
[2017-04-13] MEDS: SEVELAMER 800 MG TAB PO SCH ×2 (08:59→12:37)
[2017-04-13] MEDS: ACETAMINOPHEN 325 MG TAB PO PRN (12:37)
--- NOTE | 2017-04-13 14:00 | CONS ---
Date/Time of Note Date/Time of Note DATE: 04/13/17 TIME: 14:00 Assessment/Plan Assessment/Plan Additional Assessment/Plan 31 yo Female with 1) Abdominal pain 2) Left ovarian mass 3) End-stage renal disease 4) MBD Secondary hyperparathyroidism , s/p partial left thyroid lobectomy, left upper and lower parathyroidectomy in [place] [address] Morales. 5) Anemia Chronic Disease 6) Hyperkalemia 7) Lytic lesion bone, S/p Bx, ? Brown Tumor Consultation Date/Type/Reason Admit Date/Time Mar 23, 2017 at 10:28 Type of Consultation: Renal Referring Provider: EDILMA CASIANO 24 HR Interval Summary Free Text/Dictation S/p HD Exam/Review of Systems Vital Signs Vitals Vital Signs Date Time Temp Pulse Resp B/P Pulse Ox O2 Delivery O2 Flow Rate FiO2 04/13/17 08:20 98.7 104 18 97/51 98 04/09/17 15:00 Nasal Cannula Intake and Output 04/12/17 04/12/17 04/13/17 15:00 23:00 07:00 Intake Total 1400 ml 700 ml Output Total 500 ml Balance 900 ml 700 ml Results Result Diagram: 04/13/17 0501 04/13/17 0501 Results 24 hrs Laboratory Tests Test 04/13/17 05:01 White Blood Count 7.7 # Red Blood Count 2.96 L Hemoglobin 9.9 L Hematocrit 30.4 L Mean Corpuscular Volume 102.7 H Mean Corpuscular Hemoglobin 33.4 H Mean Corpuscular Hemoglobin Concent 32.6 Red Cell Distribution Width 15.9 H Platelet Count 204 Mean Platelet Volume 10.2 Neutrophils % 74.9 Lymphocytes % 15.8 Monocytes % 7.2 Eosinophils % 1.4 Basophils % 0.3 Nucleated Red Blood Cells % 0.0 Neutrophils # 5.8 Lymphocytes # 1.2 Monocytes # 0.6 Eosinophils # 0.1 Basophils # 0.0 Nucleated Red Blood Cells # 0.0 Sodium Level 142 Potassium Level 4.7 Chloride Level 97 Carbon Dioxide Level 30 Anion Gap 20 H Blood Urea Nitrogen 36 #H Creatinine 6.05 H Glucose Level 70 Calcium Level 10.4 H Medications Medications Current Medications Cinacalcet (Sensipar) 90 mg DAILY PO Last administered on 04/13/17t 08:53; Admin Dose 90 MG; Start 03/23/17 at 21:00 Acetaminophen (Tylenol Tab) 650 mg Q6H PRN PO PAIN AND OR ELEVATED TEMP Last administered on 04/13/17 12:37; Admin Dose 650 MG; Start 03/23/17 at 23:00 Ondansetron HCl (Zofran Inj) 4 mg Q6H PRN IV NAUSEA AND/OR VOMITING Last administered on 04/12/17 17:09; Admin Dose 4 MG; Start 03/23/17 at 23:00 Clotrimazole (Clotrim 1% Vaginal Cr) 1 applic HS VAG Last administered on 04/11 21:18; Admin Dose 1 APPLIC; Start 03/24/17 at 21:00 Epoetin Maxwell (Epogen (Esrd)) 6,000 units MoWeFr@17 IV Last administered on 17:14; Admin Dose 6,000 UNITS; Start 04/07/17 at 17:00 Docusate Sodium (Colace) 100 mg BID PO Last administered on 04/13/17 08:53; Admin Dose 100 MG; Start 04/07/17 at 21:00 Polyethylene Glycol (Miralax) 17 gm DAILY PRN NGT CONSTIPATION Last administered on 04/11/17 00:49; Admin Dose 17 GM; Start 04/07/17 at 14:00 Diphenhydramine HCl (Benadryl) 25 mg Q6H PRN IV ITCHING Last administered on 13:07; Admin Dose 25 MG; Start 04/08/17 at 10:30 Hydromorphone HCl (Dilaudid) 2 mg Q4H PRN PO PAIN Last administered on 00:12; Admin Dose 2 MG; Start 04/09/17 at 13:30 Lactulose (Enulose) 30 gm Q6 PRN PO CONSTIPATION Last administered on 05:14; Admin Dose 30 GM; Start 04/09/17 at 22:30 Hydromorphone HCl (Dilaudid) 3 mg Q4H PRN PO PAIN Last administered on 10:24; Admin Dose 3 MG; Start 04/13/17 at 04:30 JUANJO TATUM MD Apr 13, 2017 14:00
[2017-04-13] MEDS ORDERED: HYDR2TAB36 PO (15:50)
[2017-04-13] MEDS ORDERED: SEVE800T10 PO (15:50)
[2017-04-13] MEDS ORDERED: DOCU-216 PO (15:50)
[2017-04-13] MEDS ORDERED: CNC30T PO (15:50)
[2017-04-13] MEDS ORDERED: CALC667C PO (15:50)
--- NOTE | 2017-04-13 15:59 | DS ---
Date/Time of Note Date/Time of Note DATE: 04/13/17 TIME: 15:57 Discharge Summary Admission/Discharge Info Admit Date/Time Mar 23, 2017 at 10:28 Discharge Date/Time Patient Condition: Stable Hx of Present Illness The patient is 31-year-old female known to me from previous admission. Patient has a history of kidney failure, on hemodialysis, HTN, hx of secondary hyperparathyroidism due to renal disease. Patient underwent partial left thyroid lobectomy, left upper and lower parathyroidectomy in November [address] Calix. Patient presented to the emergency room due to a lower abdominal pain that she developed last night. Patient describes her abdominal pain as an aching sharp pain localized to the left portion of abdomen with no radiation. Patient has a history of ovarian mass. Patient underwent pelvic ultrasound which revealed increase in a left ovarian cystic compared to previous study. Patient denies any vaginal discharge, denies any nausea vomiting, denies fever denies chest pain denies shortness of breath. Patient stated that she had thyroid scan surgery scheduled for March 24. Patient had her last dialysis yesterday. The patient will be admitted for further evaluation and management. 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 Bone scan is nondiagnostic. Dr. Jc is following in oncology consultation. 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 Dr. Nagy is following in orthopedic surgery consultation. Status post steroid injection into the left knee. -Abdominal pain, continue morphine for pain and Zofran as needed for nausea.Repeat MRI of abdomen and pelvis shows Stable right adnexal cystic structure. Per TRANSIT MANAGER no intervention splint patient needs to follow-up with OB [facility] PROFESSIONAL as an outpatient. -Right ovarian cystic lesion per MRI, No evidence of torsion. Tumor markers not elevated. Diagnostic laparoscopy and possible ovarian cystectomy is recommended. TRANSIT MANAGER is following. -End-stage renal disease, patient had a last hemodialysis yesterday. is following in nephrology consultation. -Secondary hyperparathyroidism of renal origin, s/p partial left thyroid lobectomy, left upper and lower parathyroidectomy in November [address] Morales. Per discussion with patient's client delivery manager in our nephrology colleague patient will undergo surgery as an outpatient. Discussed with Dr. Morales, if there is no urgency patient will follow up with ENT surgeon as an outpatient. -Anemia of chronic disease, continue Epogen Plan of care discussed with Dr. Turner. Home Meds Active Scripts Docusate Sodium (Dok) 100 Mg Capsule, 100 MG PO BID for 30 Days, CAP Prov:OLEKSANDR ROBERTSONLANA 04/13/17 Sevelamer Hcl* (Renagel*) 800 Mg Tablet, 2400 MG PO WITH MEALS for 30 Days, TAB Prov:OLEKSANDR ROBERTSONLANA 04/13/17 Hydromorphone Hcl* (Dilaudid*) 2 Mg Tablet, 2 MG PO Q4H Y for PAIN, #30 TAB Prov:KAMALA ROBERTSONA 04/13/17 Calcium Acetate* (Calcium Acetate*) 667 Mg Capsule, 2001 MG PO WITH MEALS for 30 Days, CAP Prov:OLEKSANDR ROBERTSONLANA 04/13/17 Cinacalcet* (Sensipar*) 30 Mg Tab, 90 MG PO DAILY for 30 Days, TAB Prov:KAMALA ROBERTSONA 04/13/17 Reported Medications Sevelamer Hcl* (Renagel*) 800 Mg Tablet, 800 MG PO WITH MEALS, TAB 03/23/17 Cinacalcet* (Sensipar*) 30 Mg Tab, 30 MG PO QHS for hyperparathyroidism, TAB 12/02/16 Follow-up Plan Follow-up with Dr. Carmen ALONZO for a completion of parathyroidectomy, follow-up with TRANSIT MANAGER according to patient insurance for a right ovarian cystic mass, follow-up in hemodialysis center for next hemodialysis, follow-up with PMD in 1- 2 weeks Primary Care Provider Dharmesh Lind Time spent on discharge: > 30 minutes Pending Labs Laboratory Tests Test 04/13/17 05:01 White Blood Count 7.710^3/ul (4.8-10.8) Red Blood Count 2.9610^6/ul (4.20-5.40) Hemoglobin 9.9g/dl (12.0-16.0) Hematocrit 30.4% (37.0-47.0) Mean Corpuscular Volume 102.7fl (82.0-101.0) Mean Corpuscular Hemoglobin 33.4pg (29.0-33.0) Mean Corpuscular Hemoglobin Concent 32.6g/dl (32.0-37.0) Red Cell Distribution Width 15.9% (11.5-14.5) Platelet Count 59780^3/UL (140-415) Mean Platelet Volume 10.2fl (7.4-10.4) Neutrophils % 74.9% (39.0-77.0) Lymphocytes % 15.8% (15.0-51.0) Monocytes % 7.2% (0.0-11.0) Eosinophils % 1.4% (0.0-7.0) Basophils % 0.3% (0.0-2.0) Nucleated Red Blood Cells % 0.0/100WBC (0.0-0.0) Neutrophils # 5.810^3/ul (1.6-7.5) Lymphocytes # 1.210^3/ul (0.8-2.9) Monocytes # 0.610^3/ul (0.3-0.9) Eosinophils # 0.110^3/ul (0.0-0.5) Basophils # 0.010^3/ul (0.0-0.1) Nucleated Red Blood Cells # 0.010^3/ul (0.0-0.0) Sodium Level 142mmol/L (135-144) Potassium Level 4.7mmol/L (3.5-5.1) Chloride Level 97mmol/L (97-110) Carbon Dioxide Level 30mmol/L (21-31) Anion Gap 20 (8-16) Blood Urea Nitrogen 36mg/dl (7-20) Creatinine 6.05mg/dl (0.44-1.00) Glucose Level 70mg/dl (70-220) Calcium Level 10.4mg/dl (8.4-10.2) ERICK ROBERTSON Apr 13, 2017 15:59
[2017-04-13 16:45] VITALS: BP 101/56; RESP 18
== END 2017-04-13 17:50 | disposition home or self-care (01) | DRG 987 ==
LOC: E/R 07:02 → MS3 10:28 → UNDOADMIN 10:28 → PP2 03-24 06:16 → TEL 04-01 17:24 → MS1 04-07 06:15
PROVIDERS: ADMIT Internal Medicine; ATTEND Internal Medicine
PROC: 5A1D70Z Performance of Urinary Filtration, Intermittent, Less than 6 Hours Per Day (ICD-10-PCS; 2017-03-23)
PROC: 0QB23ZX Excision of Right Pelvic Bone, Percutaneous Approach, Diagnostic (ICD-10-PCS; principal; 2017-04-01)
PROC: 30233N1 Transfusion of Nonautologous Red Blood Cells into Peripheral Vein, Percutaneous Approach (ICD-10-PCS; 2017-04-08)
DX: N83.202 Unspecified ovarian cyst, left side (principal); N18.6 End stage renal disease; N25.81 Secondary hyperparathyroidism of renal origin; I12.0 Hypertensive chronic kidney disease with stage 5 chronic kidney disease or end stage renal disease; E83.39 Other disorders of phosphorus metabolism; E87.5 Hyperkalemia; B37.9 Candidiasis, unspecified; N83.512 Torsion of left ovary and ovarian pedicle; N83.511 Torsion of right ovary and ovarian pedicle; N83.01 Follicular cyst of right ovary; N63.20 Unspecified lump in the left breast, unspecified quadrant; N63.10 Unspecified lump in the right breast, unspecified quadrant; D63.8 Anemia in other chronic diseases classified elsewhere; M22.42 Chondromalacia patellae, left knee; I35.0 Nonrheumatic aortic (valve) stenosis; E05.20 Thyrotoxicosis with toxic multinodular goiter without thyrotoxic crisis or storm; D16.8 Benign neoplasm of pelvic bones, sacrum and coccyx; Z99.2 Dependence on renal dialysis
CPT/HCPCS: 36415; 36430; 36600; 71010; 72100; 72195; 73562; 74000; 74176; 74181; 76830; 76856; 77012; 78306; 80048; 80053; 82330; 82607; 82668; 82728; 82746; 82803; 82962; 83540; 83605; 83615; 83690; 83970; 84155; 84165; 84439; 84443; 84481; 84702; 84703; 85025; 85045; 85049; 85610; 85670; 85730; 86301; 86304; 86320; 86850; 86900; 86901; 86920; 88104; 88305; 90686; 90935; 93005; 93306; 96374; 96375; 96376; A9503; J0702; J0886; J1170; J1200; J1885; J2250; J2270; J2370; J2405; J3010; J7030; J7040; P9016; P9045; P9047; Q4081

== ENCOUNTER 2017-05-03 01:04 | Emergency (ER) | END 2017-05-03 02:29 | disposition home or self-care (01) ==

== ENCOUNTER 2017-07-05 09:37 | Emergency (ER) | END 2017-07-05 10:05 | disposition left against medical advice (07) ==

== ENCOUNTER 2017-07-06 16:14 | Inpatient (IN) | END 2017-08-07 18:45 | disposition home or self-care (01) | DRG 625 ==

== ENCOUNTER 2017-11-09 15:13 | Emergency (ER) | END 2017-11-09 17:44 | disposition home or self-care (01) ==

== ENCOUNTER 2018-05-14 10:33 | Emergency (ER) | payer OTHER ==
[~2018-05-14] VITALS: Ht 162.6 cm; Wt 54.7 kg
[~2018-05-14 10:33] MED LIST changes: -ATEN-51 PO; +BISA5TAB6 PO; +CALC0.5C10 PO; +CALC300T4 PO; -CNC30T PO; +DOCU-216 PO; +FOLI-49 PO; -GABA100C14 PO; -HYDR-3671 PO; -LUBI24CA7 PO; +PANT40TA3 PO; -PANT40TA4 PO; +SVL400T PO; +ZOLP10TA5 PO
[2018-05-14 10:35] VITALS: Ht 162.6 cm; Wt 54.7 kg
[2018-05-14] MEDS ORDERED: SVL800C PO (12:13)
[2018-05-14] MEDS ORDERED: BELLADONNA/PHENOBARBITAL TAB PO STA (12:45)
[2018-05-14] MEDS ORDERED: FAMOTIDINE 20 MG TAB PO STA (12:45)
[2018-05-14] MEDS ORDERED: LIDOCAINE/MYLANTA 40 ML BTL PO STA (12:45)
[2018-05-14] MEDS ORDERED: OXYCODONE/ACETAMINOPHEN (5/325) TAB PO ONE (13:00)
--- NOTE | 2018-05-14 13:13 | ERD ---
ER Documentation Chief Complaint Chief Complaint pt is bib self with c/o headache and abd pain starting yesterday HPI 32-year-old woman with history of end-stage kidney disease due for an extra round of hemodialysis this evening presents with 3 days of left-sided headache. Patient has had similar headaches in the past. She denies slurred speech, no weakness in her arms or legs, no chest pain or shortness of breath, no vomiting or diarrhea. ROS All systems reviewed and are negative except as per history of present illness. Medications Home Meds Active Scripts Naproxen* (Naprosyn*) 500 Mg Tablet, 500 MG PO BID PRN for PAIN AND/OR INFLAMMATION, #30 TAB Prov:LIANA DAWSON MD 05/14/18 Reported Medications Sevelamer Hcl* (Renagel*) 800 Mg Tablet, 800 MG PO WITH MEALS, TAB 05/14/18 Calcium Carbonate* (Tums X-Str) 300 Mg Tab.chew, 300 MG PO DAILY, TAB.CHEW 11/09/17 Zolpidem Tartrate* (Zolpidem Tartrate*) 10 Mg Tablet, 10 MG PO QHS PRN for INSOMNIA, #30 TAB 07/06/17 Discontinued Scripts Calcitriol* (Calcitriol*) 0.5 Mcg Capsule, 0.5 MCG PO QID for 60 Days, CAP Prov:RENEEEEDILMA KAY 08/07/17 Pantoprazole* (Protonix*) 40 Mg Tablet.dr, 40 MG PO DAILY, #20 TAB Prov:RENEEEEDILMA KAY 08/07/17 Sevelamer HCl (Renagel) 400 Mg Tab, 400 MG PO WITH MEALS for 30 Days, TAB Prov:RENEEEEDILMA KAY 08/07/17 Folic Acid* (Folic Acid*) 1 Mg Tablet, 1 MG PO DAILY for 30 Days, TAB Prov:SADEORAEDILMA 08/07/17 Docusate Sodium (Dok) 100 Mg Capsule, 100 MG PO BID for 30 Days, CAP Prov:SADEORAEDILMA 08/07/17 Bisacodyl* (Bisacodyl*) 5 Mg Tablet.dr, 10 MG PO DAILY PRN for CONSTIPATION for 30 Days Prov:RENEEEEDILMA KAY 08/07/17 Allergies Allergies: Coded Allergies: pineapple (Verified Allergy, Mild, 05/14/18) vancomycin (Verified Allergy, Unknown, 05/14/18) watermelon (Verified Allergy, Unknown, 05/14/18) peach (Verified Adverse Reaction, Unknown, HEADACHE, 05/14/18) PMhx/Soc Hypertension, end-stage kidney disease, chronic pain History of Surgery: Yes (L THYROID LOBECTOMY, L UPPER AND LOWER PARATHYROIDECTOMY) Anesthesia Reaction: No Hx 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 Disorder: No Hx Respiratory Disorders: No Hx Cardiac Disorders: Yes (HTN) Hx Psychiatric Problems: No Hx Miscellaneous Medical Probl: Yes (ESRD-MWF, ANE TRUMAN) Hx Alcohol Use: No Hx Substance Use: No Hx Tobacco Use: No Smoking Status: Never smoker FmHx Family History: No diabetes Physical Exam Vitals Vital Signs Date Temp Pulse Resp B/P (MAP) Pulse Ox O2 O2 Flow FiO2 Time Delivery Rate 05/14/18 98.4 79 18 101/54 100 Room Air 14:36 (70) 05/14/18 98.3 101 18 122/64 99 10:35 (83) Physical Exam Const: No acute distress mild discomfort, afebrile Head: Atraumatic Eyes: Normal Conjunctiva ENT: Normal External Ears, Nose and Mouth. Neck: Full range of motion. No meningismus. Resp: Clear to auscultation bilaterally Cardio: Regular rate and rhythm, no murmurs Abd: Soft, non tender, non distended. Normal bowel sounds Skin: Chronic skin changes due to kidney disease, no skin ulcers or lacer ations, no hematomas Back: No midline or flank tenderness Ext: No cyanosis, or edema Neur: Awake and alert x3, no focal deficits or facial asymmetry Psych: Normal Mood and Affect Result Diagram: 05/14/18 1226 05/14/18 1226 Results 24 hrs Laboratory Tests Test 05/14/18 12:26 White Blood Count 6.5 10^3/ul Red Blood Count 3.28 10^6/ul Hemoglobin 10.9 g/dl Hematocrit 33.7 % Mean Corpuscular Volume 102.7 fl Mean Corpuscular Hemoglobin 33.2 pg Mean Corpuscular Hemoglobin Concent 32.3 g/dl Red Cell Distribution Width 15.0 % Platelet Count 216 10^3/UL Mean Platelet Volume 10.5 fl Immature Granulocytes % 0.200 % Neutrophils % 67.3 % Lymphocytes % 23.4 % Monocytes % 6.7 % Eosinophils % 1.8 % Basophils % 0.6 % Nucleated Red Blood Cells % 0.0 /100WBC Immature Granulocytes # 0.010 10^3/ul Neutrophils # 4.4 10^3/ul Lymphocytes # 1.5 10^3/ul Monocytes # 0.4 10^3/ul Eosinophils # 0.1 10^3/ul Basophils # 0.0 10^3/ul Nucleated Red Blood Cells # 0.0 10^3/ul Sodium Level 139 mmol/L Potassium Level 3.8 mmol/L Chloride Level 96 mmol/L Carbon Dioxide Level 25 mmol/L Anion Gap 18 Blood Urea Nitrogen 19 mg/dl Creatinine 7.11 mg/dl Est Glomerular Filtrat Rate mL/min 7 mL/min Glucose Level 79 mg/dl Calcium Level 10.5 mg/dl Total Bilirubin 0.1 mg/dl Direct Bilirubin 0.00 mg/dl Indirect Bilirubin 0.1 mg/dl Aspartate Amino Transf (AST/SGOT) 15 IU/L Alanine Aminotransferase (ALT/SGPT) 15 IU/L Alkaline Phosphatase 77 IU/L Troponin I < 0.012 ng/ml Total Protein 7.9 g/dl Albumin 4.7 g/dl Globulin 3.20 g/dl Albumin/Globulin Ratio 1.46 Lipase 49 U/L Current Medications Medications Dose Sig/Twila Start Time Status Last (Trade) Ordered Route PRN Stop Time Admin Dose Reason Admin Famotidine 20 mg ONCE STAT 05/14/18 DC 05/14/18 (Pepcid) PO 12:45 13:47 05/14/18 12:47 40 ml ONCE STAT 05/14/18 DC 05/14/18 Miscellaneous PO 12:45 13:48 Medication 05/14/18 12:47 (Gi Cocktail (2)) Belladonna/ 2 tab ONCE STAT 05/14/18 DC 05/14/18 Phenobarbital PO 12:45 13:46 () 05/14/18 12:47 Oxycodone/ 1 tab ONCE ONCE 05/14/18 DC 05/14/18 Acetaminophen PO 13:00 13:47 (Percocet 05/14/18 13:01 (5/ 325)) Ketorolac 15 mg ONCE STAT 05/14/18 DC 05/14/18 Tromethamine IV 13:47 14:01 (Toradol) 05/14/18 13:48 Procedures/MDM EKG performed, read by me: 78 bpm, normal sinus rhythm, normal axis, no acute ST segment changes, narrow QRS complex, with good R-wave progression in precordial leads. I administered Toradol 15 mg IV x1 and Percocet 1 tablet p.o. patient also received a GI cocktail and famotidine p.o. CT scan of the brain was negative for acute bleed mass or shift CBC and electrolytes were unremarkable, liver function tests normal, troponin negative Differential diagnoses considered, included but not limited to acute coronary syndrome, pulmonary embolism, aortic dissection, abdominal aortic aneurysm, sepsis, stroke, meningitis, encephalitis, pneumonia, appendicitis, cholecystitis, bowel obstruction, pyelonephritis, nephrolithiasis, cystitis, as well as metabolic, hematologic, and electrolyte abnormalities. As well as abscess, cellulitis, fractures, and dislocations. Patient feels much better at this time, and vital signs are normal, symptoms have improved. I did give strict instructions to return to the ED if symptoms continue or worsen, patient will otherwise follow-up with primary care ph ysician. Patient understood instructions and agreed to plan. Disclaimer: Inadvertent spelling and grammatical errors are likely due to EHR/dictation software use and do not reflect on the overall quality of patient care. Also, please note that the electronic time recorded on this note does not necessarily reflect the actual time of the patient encounter. Departure Diagnosis: Primary Impression: End stage kidney disease Additional Impression: Tension headache Condition: LIANA Bear MD May 14, 2018 13:12
[2018-05-14] MEDS ORDERED: NAPR-985 PO (13:44)
[2018-05-14] MEDS ORDERED: KETOROLAC 15 MG INJ IV STA (13:47)
[2018-05-14 14:36] VITALS: BP 101/54; PULSE 79; RESP 18
== END 2018-05-14 14:40 | disposition home or self-care (01) ==
LOC: E/R 10:33
DX: N18.6 End stage renal disease (principal); G44.209 Tension-type headache, unspecified, not intractable; I12.0 Hypertensive chronic kidney disease with stage 5 chronic kidney disease or end stage renal disease; Z99.2 Dependence on renal dialysis
CPT/HCPCS: 36415; 70450; 80053; 83690; 84484; 85025; 93005; 96374; J1885; Z7502; Z7610

== ENCOUNTER 2018-06-12 20:09 | Inpatient (IN) | payer OTHER ==
[~2018-06-12] VITALS: Ht 162.6 cm; Wt 53.0 kg
[~2018-06-12 20:09] MED LIST changes: -BISA5TAB6 PO; -CALC0.5C10 PO; -DOCU-216 PO; -FOLI-49 PO; +NAPR-985 PO; -PANT40TA3 PO; -SVL400T PO; +SVL800C PO
[2018-06-12 20:38] VITALS: Ht 162.6 cm; Wt 53.0 kg
[2018-06-12] MEDS ORDERED: SOD CHLORIDE 0.9% 500 ML IV STA (21:51)
[2018-06-12] MEDS ORDERED: PIPER-TAZO 3.375 GM IV (PMX) 100 ML IVPB STA (21:51)
[2018-06-12] MEDS ORDERED: ONDANSETRON 4 MG INJ IV STA (22:39)
[2018-06-12] MEDS ORDERED: DIPHENHYDRAMINE 50 MG INJ IV ONE (23:30)
[2018-06-13] VITALS (18 sets, daily range): BP systolic 87–122; BP diastolic 41–97; PULSE 63–105; RESP 16–20
--- NOTE | 2018-06-13 01:36 | ERD ---
ER Documentation Chief Complaint Chief Complaint PERMACATH PLACED 2 WEEKS AGO, PUS DISCHARGE, VOMITING X 2 DAYS HPI This is a very pleasant patient who comes in with complaints of pus and drainage from her permacath that was placed 2 weeks ago. Is placed on her right chest. She is noticed erythema and induration since then. He noted pus coming from the site as well. Denies fevers or chills but did feel mildly nauseous and one episode of nonbilious nonbloody vomiting. Patient is end-stage renal disease on dialysis Wednesdays and Fridays with Dr. Behzad DE LEON All systems reviewed and are negative except as per history of present illness. Medications Home Meds Active Scripts Naproxen* (Naprosyn*) 500 Mg Tablet, 500 MG PO BID PRN for PAIN AND/OR INFLAMMATION, #30 TAB Prov:LIANA DAWSON MD 05/14/18 Reported Medications Sevelamer Hcl* (Renagel*) 800 Mg Tablet, 800 MG PO WITH MEALS, TAB 05/14/18 Calcium Carbonate* (Tums X-Str) 300 Mg Tab.chew, 300 MG PO DAILY, TAB.CHEW 11/09/17 Zolpidem Tartrate* (Zolpidem Tartrate*) 10 Mg Tablet, 10 MG PO QHS PRN for INSOMNIA, #30 TAB 07/06/17 Allergies Allergies: Coded Allergies: pineapple (Verified Allergy, Mild, 05/14/18) vancomycin (Verified Allergy, Unknown, 05/14/18) watermelon (Verified Allergy, Unknown, 05/14/18) peach (Verified Adverse Reaction, Unknown, HEADACHE, 05/14/18) PMhx/Soc History of Surgery: Yes (Thyroid Surgery x 2) Anesthesia Reaction: No Hx 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 Disorder: No Hx Respiratory Disorders: No Hx Cardiac Disorders: Yes (HTN ) Hx Psychiatric Problems: No Hx Miscellaneous Medical Probl: Yes (Anemia) Hx Alcohol Use: No Hx Substance Use: No Hx Tobacco Use: No Smoking Status: Never smoker Physical Exam Vitals Vital Signs Date Temp Pulse Resp B/P (MAP) Pulse Ox O2 O2 Flow FiO2 Time Delivery Rate 06/12/18 97.8 87 16 111/74 99 Room Air 22:55 (86) 06/12/18 98.1 80 16 120/58 98 20:38 (78) Physical Exam Const: No acute distress Head: Atraumatic Eyes: Normal Conjunctiva ENT: Normal External Ears, Nose and Mouth. Neck: Full range of motion. No meningismus. Resp: Clear to auscultation bilaterally Cardio: Regular rate and rhythm, no murmurs Abd: Soft, non tender, non distended. Normal bowel sounds Skin: No petechiae or rashes Back: No midline or flank tenderness Ext: No cyanosis, or edema Neur: Awake and alert Psych: Normal Mood and Affect Result Diagram: 06/12/18221206/12/182212 Results 24 hrs Laboratory Tests Test 06/12/18 22:13 White Blood Count 6.7 10^3/ul Red Blood Count 3.66 10^6/ul Hemoglobin 12.4 g/dl Hematocrit 37.2 % Mean Corpuscular Volume 101.6 fl Mean Corpuscular Hemoglobin 33.9 pg Mean Corpuscular Hemoglobin Concent 33.3 g/dl Red Cell Distribution Width 14.2 % Platelet Count 183 10^3/UL Mean Platelet Volume 11.1 fl Immature Granulocytes % 0.300 % Neutrophils % 66.0 % Lymphocytes % 23.9 % Monocytes % 7.7 % Eosinophils % 1.5 % Basophils % 0.6 % Nucleated Red Blood Cells % 0.0 /100WBC Immature Granulocytes # 0.020 10^3/ul Neutrophils # 4.4 10^3/ul Lymphocytes # 1.6 10^3/ul Monocytes # 0.5 10^3/ul Eosinophils # 0.1 10^3/ul Basophils # 0.0 10^3/ul Nucleated Red Blood Cells # 0.0 10^3/ul Sodium Level 139 mmol/L Potassium Level 5.1 mmol/L Chloride Level 88 mmol/L Carbon Dioxide Level 23 mmol/L Anion Gap 28 Blood Urea Nitrogen 75 mg/dl Creatinine 11.58 mg/dl Est Glomerular Filtrat Rate mL/min 4 mL/min Glucose Level 106 mg/dl Calcium Level 12.3 mg/dl Total Bilirubin 0.0 mg/dl Direct Bilirubin 0.00 mg/dl Indirect Bilirubin 0.0 mg/dl Aspartate Amino Transf (AST/SGOT) 16 IU/L Alanine Aminotransferase (ALT/SGPT) 12 IU/L Alkaline Phosphatase 76 IU/L Total Protein 9.2 g/dl Albumin 5.4 g/dl Globulin 3.80 g/dl Albumin/Globulin Ratio 1.42 Lipase 79 U/L Current Medications Medications Dose Sig/Twila Start Time Status Last (Trade) Ordered Route PRN Stop Time Admin Dose Reason Admin Sodium 500 ml @ Q1H STAT 06/12/18 DC 06/12/18 Chloride 500 mls/hr IV 21:51 21:51 06/12/18 22:50 Piperacillin 100 ml @ ONCE STAT 06/12/18 DC 06/12/18 Sod/ 200 mls/hr IVPB 21:51 22:54 Tazobactam 06/12/18 22:20 Sod Ondansetron 4 mg ONCE STAT 06/12/18 DC 06/12/18 HCl (Zofran IV 22:39 22:54 Inj) 06/12/18 22:40 50 mg ONCE ONCE 06/12/18 DC 06/12/18 Diphenhydrami IV 23:30 23:21 ne HCl 06/12/18 23:31 (Benadryl) Procedures/MDM Medical decision makin-year-old female who comes in with possible line sepsis. There is no evidence of gross infection upon my inspection, however given the fact the patient said there was pus earlier today and it is a newly placed permacath, antibiotics and cultures were drawn and started respectively. Dr. Bard valdez kindly accepted the patient to his service. Departure Diagnosis: Primary Impression: Line sepsis associated with dialysis catheter Additional Impression: Line sepsis Encounter type: initial encounter Qualified Codes: T85.79XA - Infection and inflammatory reaction due to other internal prosthetic devices, implants and grafts, initial encounter; A41.9 - Sepsis, unspecified organism Condition: MATT Patten Jun 13, 2018 01:36
[2018-06-13] MEDS ORDERED: NAPROXEN 500 MG TAB PO PRN (02:00)
[2018-06-13] MEDS ORDERED: ZOLPIDEM 5 MG TAB PO PRN (02:00)
[2018-06-13] MEDS ORDERED: ACETAMINOPHEN 325 MG TAB PO PRN (02:00)
[2018-06-13] MEDS ORDERED: DIPHENHYDRAMINE 25 MG CAP PO PRN (02:00)
[2018-06-13] MEDS: DIPHENHYDRAMINE 50 MG INJ IV PRN ×3 (05:38→17:50)
[2018-06-13] MEDS: morphine 2 MG INJ IV PRN ×4 (05:39→20:34)
[2018-06-13] MEDS: LINEZOLID 600 MG/D5W (PMX) 300 ML IVPB SCH ×2 (08:33→20:34)
[2018-06-13] MEDS: SEVELAMER CARBONATE 800 MG TABLET PO SCH ×3 (08:34→18:37)
[2018-06-13] MEDS ORDERED: CALCIUM CARBONATE 500 MG CHEW TAB PO SCH (09:00)
--- NOTE | 2018-06-13 11:23 | HP ---
Date/Time of Note Date/Time of Note DATE: 06/13/18 TIME: 11:17 Assessment/Plan VTE Prophylaxis Risk score (from Ns)>0 risk: 2 SCD applied (from Ns): Yes Pharmacological prophylaxis: heparin Lines/Catheters IV Catheter Type (from Nrs): permacath Assessment/Plan Assessment/Plan -Possible line sepsis, follow-up on blood cultures from the catheter, continue broad-spectrum antibiotics. Dr. Arora is asked to see patient in infection disease consultation. -Hemodialysis dependent end-stage renal disease. Dr. Omalley is asked to see patient in nephrology consultation. -History of hyperparathyroidism, status post subtotal parathyroidectomy of the right superior and inferior glands, partial left inferior gland in June 2016. Status post left upper and lower parathyroidectomy and partial left thyroid l obectomy in November [address] Morales, ENT. -Left chest hemodialysis catheter present on admission. -Left upper extremity AV fistula nonfunctioning, Dr. Francisco is asked to see patient in vascular surgery consultation. Further recommendations based on clinical course. Plan of care discussed with Dr. Turner. Result Diagram: 06/12/18 2213 06/12/18 2213 Results 24hrs Laboratory Tests Test 06/12/18 22:13 White Blood Count 6.7 Red Blood Count 3.66 L Hemoglobin 12.4 Hematocrit 37.2 Mean Corpuscular Volume 101.6 H Mean Corpuscular Hemoglobin 33.9 H Mean Corpuscular Hemoglobin Concent 33.3 Red Cell Distribution Width 14.2 Platelet Count 183 Mean Platelet Volume 11.1 H Immature Granulocytes % 0.300 Neutrophils % 66.0 Lymphocytes % 23.9 Monocytes % 7.7 Eosinophils % 1.5 Basophils % 0.6 Nucleated Red Blood Cells % 0.0 Immature Granulocytes # 0.020 Neutrophils # 4.4 Lymphocytes # 1.6 Monocytes # 0.5 Eosinophils # 0.1 Basophils # 0.0 Nucleated Red Blood Cells # 0.0 Sodium Level 139 Potassium Level 5.1 Chloride Level 88 L Carbon Dioxide Level 23 Anion Gap 28 H Blood Urea Nitrogen 75 H Creatinine 11.58 H Est Glomerular Filtrat Rate mL/min 4 L Glucose Level 106 Calcium Level 12.3 H Total Bilirubin 0.0 L Direct Bilirubin 0.00 Indirect Bilirubin 0.0 Aspartate Amino Transf (AST/SGOT) 16 Alanine Aminotransferase (ALT/SGPT) 12 L Alkaline Phosphatase 76 Total Protein 9.2 H Albumin 5.4 H Globulin 3.80 H Albumin/Globulin Ratio 1.42 Lipase 79 HPI/ROS Admit Date/Time Admit Date/Time Jun 13, 2018 at 00:07 Hx of Present Illness The patient is 32-year-old female known to me from previous admissions. Patient with history of hemodialysis dependent end-stage renal disease follows with Dr. Jones in nephrology consultation and usually undergoes dialysis on Wednesday. Patient had left upper extremity AV fistula which is nonfunctioning and underwent right chest hemodialysis catheter placement 2 weeks ago. Patient also had a history of primary hyperparathyroidism and underwent subtotal parathyroidectomy of the right superior and inferior glands and partial left inferior gland in June 2016, and underwent completion parathyroidectomy and partial left thyroid lobectomy in November [address] Morales, ENT. 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 Smallwood in gastroenterology consultation, pt underwent MRCP which was negative for cholelithiasis or cholecystitis. Patient presented to the emergency room with complaints of pus and greenish secretions coming from the permacath as well as erythema and induration around the catheter. Patient complains of nausea and episode of nonbilious nonbloody emesis however denies any fever and chills. Patient denies shortness of breath denies chest pain denies bilateral lower extremities edema. After blood cultures were collected patient was started on broad-spectrum antibiotic and admitted for further evaluation and management. ROS 12 point review of system is negative except for what mentioned in HPI PMH/Family/Social Past Medical History Medical History: renal disease Medications Current Medications Linezolid 300 ml @ 300 mls/hr Q12 IVPB Last administered on 06/13/18at 08:33; Admin Dose 300 MLS/HR; Start 06/13/18 at 09:00 Acetaminophen (Tylenol Tab) 650 mg Q6H PRN PO MILD PAIN(1-3)OR ELEVATED TEMP; Start 06/13/18 at 02:00 Calcium Carbonate (Tums) 500 mg DAILY PO Last administered on 06/13/18at 08:33; Admin Dose 500 MG; Start 06/13/18 at 09:00 Naproxen (Naprosyn) 500 mg BID PRN PO PAIN AND/OR INFLAMMATION; Start 06/13/18 at 02:00 Sevelamer Carbonate (Renvela) 800 mg WITH MEALS PO Last administered on 06/13/18at 08:34; Admin Dose 800 MG; Start 06/13/18 at 08:00 Zolpidem Tartrate (Ambien) 10 mg QHS PRN PO INSOMNIA; Start 06/13/18 at 02:00 Morphine Sulfate (morphine) 2 mg Q4H PRN IV SEVERE PAIN LEVEL 7-10 Last administered on 06/13/18at 10:10; Admin Dose 2 MG; Start 06/13/18 at 05:30 Diphenhydramine HCl (Benadryl) 25 mg Q6H PRN IV ITCHING Last administered on 06/13/18at 05:38; Admin Dose 25 MG; Start 06/13/18 at 05:30 Coded Allergies: pineapple (Verified Allergy, Mild, 05/14/18) vancomycin (Verified Allergy, Unknown, 05/14/18) watermelon (Verified Allergy, Unknown, 05/14/18) peach (Verified Adverse Reaction, Unknown, HEADACHE, 05/14/18) Past Surgical History Past Surgical Hx: other (Status post partial and complete parathyroidectomy in 2017, status post left upper AV fistula creation, status post multiple hemodialysis catheter placement and removal) Family History Significant Family History: hypertension Social History Alcohol Use: none Smoking Status: Never smoker Drug Use: none Exam/Review of Systems Vital Signs Vitals Vital Signs Date Temp Pulse Resp B/P (MAP) Pulse Ox O2 O2 Flow FiO2 Time Delivery Rate 06/13/18 98.1 63 20 99/51 (67) 98 07:41 06/13/18 Room Air 00:34 Intake and Output 06/12/18 06/12/18 06/13/18 1515:00 23:00 07:00 IntakeIntake Total 360 ml BalanceBalance 360 ml Exam Constitutional: alert, oriented Head: normocephalic Neck: supple Respiratory: clear to auscultation Cardiovascular: nl pulses Gastrointestinal: soft, non-tender Musculoskeletal: nl extremities to inspection Extremities: normal pulses, other (Left upper extremity AV fistula no bruit no thrill) 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: nl mental status Skin: nl ERICK Rolon Jun 13, 2018 11:23
--- NOTE | 2018-06-13 13:21 | CONS ---
Assessment/Plan Assessment/Plan Assessment/Plan 32 yo Female with 1) Possible Catheter related infection, R/o Bacteremia 2) Non Functioning LUE AV 3) ESRD on HD 4) Hypercalemia 5) MBD of CKD Plan for HD today Vascular Sx consultation F/u Blood Cultures Repeat BMP now HD ordered, UF goal up to 2L as tolerated IF Ca elevated on repeat, Low Ca bath Thank you for the opportunity to participate in the care of Ms Lakhani. 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 Patient had left upper extremity AV fistula which is nonfunctioning and underwent right chest hemodialysis catheter placement approx 2 weeks ago. Please note patient also with history of primary hyperparathyroidism and underwent parathyroidectomy, subsequently developed Hungry bone syndrome required urgent treatment and admission. Patient presented during this admission with a complaint of pus and greenish secretions coming from the permacath as well as redness around the catheter. Patient complains of nausea and episode of nonbilious nonbloody emesis however denies any fever and chills. Patient denies shortness of breath denies chest pain denies bilateral lower extremities edema. After blood cultures were collected patient was started on broad-spectrum antibiotic and admitted for further evaluation and management. Nephrology consulted for management of ESRD and HD. Constitutional: No requiring O2 Respiratory: no complaints Cardiovascular: no complaints Genitourinary: no complaints Past Medical History Medical History Nephrology: renal disease Home Meds Active Scripts Naproxen* (Naprosyn*) 500 Mg Tablet, 500 MG PO BID PRN for PAIN AND/OR INFLAMMATION, #30 TAB Prov:LIANA DAWSON MD 05/14/18 Reported Medications Sevelamer Hcl* (Renagel*) 800 Mg Tablet, 800 MG PO WITH MEALS, TAB 05/14/18 Calcium Carbonate* (Tums X-Str) 300 Mg Tab.chew, 300 MG PO DAILY, TAB.CHEW 11/09/17 Zolpidem Tartrate* (Zolpidem Tartrate*) 10 Mg Tablet, 10 MG PO QHS PRN for INSOMNIA, #30 TAB 07/06/17 Medications Current Medications Linezolid 300 ml @ 300 mls/hr Q12 IVPB Last administered on 06/13/18at 08:33; Admin Dose 300 MLS/HR; Start 06/13/18 at 09:00 Acetaminophen (Tylenol Tab) 650 mg Q6H PRN PO MILD PAIN(1-3)OR ELEVATED TEMP; Start 06/13/18 at 02:00 Naproxen (Naprosyn) 500 mg BID PRN PO PAIN AND/OR INFLAMMATION; Start 06/13/18 at 02:00 Sevelamer Carbonate (Renvela) 800 mg WITH MEALS PO Last administered on 06/13/18at 13:12; Admin Dose 800 MG; Start 06/13/18 at 08:00 Zolpidem Tartrate (Ambien) 10 mg QHS PRN PO INSOMNIA; Start 06/13/18 at 02:00 Morphine Sulfate (morphine) 2 mg Q4H PRN IV SEVERE PAIN LEVEL 7-10 Last administered on 06/13/18at 10:10; Admin Dose 2 MG; Start 06/13/18 at 05:30 Diphenhydramine HCl (Benadryl) 25 mg Q6H PRN IV ITCHING Last administered on 06/13/18at 11:48; Admin Dose 25 MG; Start 06/13/18 at 05:30 Allergies: Coded Allergies: pineapple (Verified Allergy, Mild, 05/14/18) vancomycin (Verified Allergy, Unknown, 05/14/18) watermelon (Verified Allergy, Unknown, 05/14/18) peach (Verified Adverse Reaction, Unknown, HEADACHE, 05/14/18) Past Surgical History Past Surgical Hx: other (Status post partial and complete parathyroidectomy in 2017, status post left upper AV fistula creation, status post multiple hemodialysis catheter placement and removal) Family History Significant Family History: no pertinent family hx Social History Alcohol Use: none Smoking Status: Never smoker Drug Use: none Exam/Review of Systems Vital Signs Vitals Vital Signs Date Temp Pulse Resp B/P (MAP) Pulse Ox O2 O2 Flow FiO2 Time Delivery Rate 06/13/18 98.1 63 20 99/51 (67) 98 07:41 06/13/18 Room Air 00:34 Intake and Output 2/06/12/18 06/13/18 1515:00 23:00 07:00 IntakeIntake Total 360 ml BalanceBalance 360 ml Exam Constitutional: alert, oriented; No distress ENMT: mucosa pink and moist Respiratory: clear to auscultation; No crackles/rales Cardiovascular: regular rate and rhythm; No edema Gastrointestinal: soft, non-tender; No distended, No rebound or guarding, No tender Extremities: other (LUE AVF no bruit); No edema 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: WIRER II-XII intact, nl mental status; No focal weakness, No lethargic Skin: No diaphoresis Additional Comments Rt Chest PC Labs Result Diagram: 06/12/18 2213 06/12/18 2213 Results 24hrs Laboratory Tests Test 06/12/18 22:13 White Blood Count 6.7 Red Blood Count 3.66 L Hemoglobin 12.4 Hematocrit 37.2 Mean Corpuscular Volume 101.6 H Mean Corpuscular Hemoglobin 33.9 H Mean Corpuscular Hemoglobin Concent 33.3 Red Cell Distribution Width 14.2 Platelet Count 183 Mean Platelet Volume 11.1 H Immature Granulocytes % 0.300 Neutrophils % 66.0 Lymphocytes % 23.9 Monocytes % 7.7 Eosinophils % 1.5 Basophils % 0.6 Nucleated Red Blood Cells % 0.0 Immature Granulocytes # 0.020 Neutrophils # 4.4 Lymphocytes # 1.6 Monocytes # 0.5 Eosinophils # 0.1 Basophils # 0.0 Nucleated Red Blood Cells # 0.0 Sodium Level 139 Potassium Level 5.1 Chloride Level 88 L Carbon Dioxide Level 23 Anion Gap 28 H Blood Urea Nitrogen 75 H Creatinine 11.58 H Est Glomerular Filtrat Rate mL/min 4 L Glucose Level 106 Calcium Level 12.3 H Total Bilirubin 0.0 L Direct Bilirubin 0.00 Indirect Bilirubin 0.0 Aspartate Amino Transf (AST/SGOT) 16 Alanine Aminotransferase (ALT/SGPT) 12 L Alkaline Phosphatase 76 Total Protein 9.2 H Albumin 5.4 H Globulin 3.80 H Albumin/Globulin Ratio 1.42 Lipase 79 Medications Medications Current Medications Linezolid 300 ml @ 300 mls/hr Q12 IVPB Last administered on 06/13/18at 08:33; Admin Dose 300 MLS/HR; Start 06/13/18 at 09:00 Acetaminophen (Tylenol Tab) 650 mg Q6H PRN PO MILD PAIN(1-3)OR ELEVATED TEMP; Start 06/13/18 at 02:00 Naproxen (Naprosyn) 500 mg BID PRN PO PAIN AND/OR INFLAMMATION; Start 06/13/18 at 02:00 Sevelamer Carbonate (Renvela) 800 mg WITH MEALS PO Last administered on 06/13/18 13:12; Admin Dose 800 MG; Start 06/13/18 at 08:00 Zolpidem Tartrate (Ambien) 10 mg QHS PRN PO INSOMNIA; Start 06/13/18 at 02:00 Morphine Sulfate (morphine) 2 mg Q4H PRN IV SEVERE PAIN LEVEL 7-10 Last administered on 06/13/18 10:10; Admin Dose 2 MG; Start 06/13/18 at 05:30 Diphenhydramine HCl (Benadryl) 25 mg Q6H PRN IV ITCHING Last administered on 06/13/18 11:48; Admin Dose 25 MG; Start 06/13/18 at 05:30 JUANJO TATUM MD Jun 13, 2018 13:21
[2018-06-13] MEDS ORDERED: HEPARIN 1000 UNITS/ML 10 ML INJ CATHETER SCH (14:30)
[2018-06-13] MEDS ORDERED: DIPHENHYDRAMINE 50 MG INJ IV ONE (18:30)
[2018-06-13] MEDS ORDERED: DIPHENHYDRAMINE 50 MG INJ IV PRN (18:30)
[2018-06-13] MEDS: HEPARIN 1000 UNITS/ML 10 ML INJ CATHETER SCH (19:35)
--- NOTE | 2018-06-13 22:30 | CONS ---
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 (base on the presence of purulence at the site) - N&E, MRCP in 07/2017 was negative for cholelithiasis or cholecystitis - chills during the dialysis, subjective fever and anorexia are concerning for bloodstream infections - h/o placement and removal of HD catheters, according to Pt, she has had 9 episodes of HD catheter site/catheter infection - [place] [facility] [place], non-functional and not used - primary hyperparathyroidism - h/o subtotal parathyroidectomy of R superior and inferior glands and partial L inferior gland in 06/2016 - h/o complete parathyroidectomy and partial L thyroid lobectomy in 11/2016 - h/o elevated alk phos due to hungry bone syndrome post parathyroidectomy - amenorrhea since AVF creation in 2016 - allergy to vancomycin (pruritus) recommendations - pending results: blood cultures (peripheral) from 06/12/2018 - ordered: I personally expressed a tiny amount of fluid at her HD catheter site and collected it for culture. Pt's HD has already completed and blood cultures via HD catheter were not ordered and not done. also ordered MRSA nasal screen - continue empiric linezolid (06/12/2018-), will add renally dosed pip/tazo (06/13/2018-). Will adjust her antibiotics according to the results of her cultures - will monitor CBC while Pt's on linezolid, if Pt develops anemia and/or thrombocytopenia, will change linezolid to another agent - Pt's symptoms (fatigue, chills during HD, pulsating pain from the catheter site) and signs (purulence from the catheter site) are indicative of infection, and I recommend its removal; will need to establish a plan of new catheter prior to removal management d/w Pt and her RN Zehra Consultation Date/Type/Reason Admit Date/Time Jun 13, 2018 at 00:07 Date of Consultation: Jun 13, 2018 Type of Consult ID Reason for Consultation catheter site infection Requesting Provider: ERICK ROBERTSON Date/Time of Note DATE: 06/13/18 TIME: 22:30 Hx of Present Illness This is a 32 yo female with ESRD on HD for 9 years, h/o recurrent HD catheter infection requiring removal and placement of a new HD catheter, 5 times according to Pt. Pt has a new HD permacath catheter placed on R chest wall 2 weeks prior to admission (Dr. Jones). Pt presented at ER on 06/12/2018 c/o one week h/o fatigue, subjective low grade temp, N&E and chills. She noticed "greenish" purulence expressed from the catheter site. The catheter site is sending pulsating pain along the catheter towards her R neck. Pt was admitted for a concern of HD catheter related infection. Two sets of peripheral blood cultures were drawn on 06/12/2018, and Pt was admitted with empiric IV linezolid. Today Pt underwent HD during which she felt chills. Pt remembers the same episodes from her previous HD catheter infection. She does not recall the name of the bacteria from her previous episodes of infection. 2 years ago, an AVF was placed in her LUE but it has been non-functional and has not been used at all. YOKASTA Robertson requested ID consultation on this Pt. Constitutional: chills, febrile, poor po Eyes: no complaints ENT: no complaints Respiratory: no complaints Cardiovascular: other (see HPI) Gastrointestinal: decreased appetite, nausea, vomiting Genitourinary: other (nearly anuric) Skin: erythema, other ("greenish" pus from the catheter site) Neurologic: no complaints Past Medical History - h/o creation of AVF in LUE, non-functional and not used - primary hyperparathyroidism - h/o subtotal parathyroidectomy of R superior and inferior glands and partial L inferior gland in 06/2016 - h/o complete parathyroidectomy and partial L thyroid lobectomy in 11/2016 - h/o elevated alk phos due to hungry bone syndrome post parathyroidectomy - N&E, MRCP in 07/2017 was negative for cholelithiasis or cholecystitis Medical History: hypothyroid, renal disease, other (h/o catheter site in fection) Home Meds Active Scripts Naproxen* (Naprosyn*) 500 Mg Tablet, 500 MG PO BID PRN for PAIN AND/OR INFLAMMATION, #30 TAB Prov:LIANA DAWSON MD 05/14/18 Reported Medications Sevelamer Hcl* (Renagel*) 800 Mg Tablet, 800 MG PO WITH MEALS, TAB 05/14/18 Calcium Carbonate* (Tums X-Str) 300 Mg Tab.chew, 300 MG PO DAILY, TAB.CHEW 11/09/17 Zolpidem Tartrate* (Zolpidem Tartrate*) 10 Mg Tablet, 10 MG PO QHS PRN for INSOMNIA, #30 TAB 07/06/17 Medications Current Medications Linezolid 300 ml @ 300 mls/hr Q12 IVPB Last administered on 06/13/18at 20:34; Admin Dose 300 MLS/HR; Start 06/13/18 at 09:00 Acetaminophen (Tylenol Tab) 650 mg Q6H PRN PO MILD PAIN(1-3)OR ELEVATED TEMP; Start 06/13/18 at 02:00 Naproxen (Naprosyn) 500 mg BID PRN PO PAIN AND/OR INFLAMMATION; Start 06/13/18 at 02:00 Sevelamer Carbonate (Renvela) 800 mg WITH MEALS PO Last administered on 06/13at 18:37; Admin Dose 800 MG; Start 06/13/18 at 08:00 Zolpidem Tartrate (Ambien) 10 mg QHS PRN PO INSOMNIA; Start 06/13/18 at 02:00 Morphine Sulfate (morphine) 2 mg Q4H PRN IV SEVERE PAIN LEVEL 7-10 Last administered on 06/13/18at 20:34; Admin Dose 2 MG; Start 06/13/18 at 05:30 Diphenhydramine HCl (Benadryl) 25 mg Q6H PRN IV ITCHING Last administered on 06/13/18at 17:50; Admin Dose 25 MG; Start 06/13/18 at 05:30 Albumin Human 100 ml @ 100 mls/hr WITH DIALYSIS PRN IV SBP <90 DURING DIALYSIS ; Start 06/13/18 at 15:30 Heparin Sodium (Porcine) (Heparin (1000 Units/ml)) 3,200 unit AFTER DIALYSIS CATHETER Last administered on 06/13/18at 19:35; Admin Dose 3,200 UNIT; Start 06/13/18 at 16:30 Diphenhydramine HCl (Benadryl) 50 mg Q6H PRN IV itching; Start 06/13/18 at 18:30 Allergies: Coded Allergies: vancomycin (Verified Allergy, Severe, 06/13/18) pruritus pineapple (Verified Allergy, Mild, 05/14/18) watermelon (Verified Allergy, Unknown, 05/14/18) peach (Verified Adverse Reaction, Unknown, HEADACHE, 05/14/18) Past Surgical History Past Surgical Hx: other (Status post partial and complete parathyroidectomy in 2017, status post left upper AV fistula creation, status post multiple hemodialysis catheter placement and removal) Social History Alcohol Use: none Smoking Status: Never smoker Drug Use: none Exam/Review of Systems Exam Vitals Vital Signs Date Temp Pulse Resp B/P (MAP) Pulse Ox O2 O2 Flow FiO2 Time Delivery Rate 06/13/18 98 19:25 06/13/18 97.9 18 115/54 94 19:24 (74) 06/13/18 Room Air 16:07 Intake and Output 06/12/18 06/12/18 06/13/18 1515:00 23:00 07:00 IntakeIntake Total 360 ml BalanceBalance 360 ml Constitutional: alert, oriented, well developed Psych: no complaints, nl mood/affect Head: normocephalic, atraumatic Eyes: nl conjunctiva, nl lids, nl sclera; No icteric ENMT: nl external ears & nose, nl nasal mucosa & septum, mucosa pink and moist Neck: supple, non-tender Respiratory: clear to auscultation, normal air movement Cardiovascular: regular rate and rhythm, nl pulses, other (+AVF in LUE, no thrill) Gastrointestinal: soft, nl liver, spleen, other (RLQ is slightly TTP) Musculoskeletal: nl extremities to inspection Extremities: No edema 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: SOCIAL WELFARE ADMINISTRATOR II-XII intact, nl mental status, nl speech, nl strength Skin: rash or lesions (HD catheter site on R chest wall is open, a tiny fluid collection was seen and collected for culture, the surrounding tissue is slightly erythematous and tender to palpation, +well healed scars on L chest wall (after removal of old HD catheters)) Lymph: nl lymph nodes (cervical) Results Result Diagram: 06/12/18 2213 06/13/18 1346 Results 24hrs Laboratory Tests Test 06/13/18 13:46 06/13/18 14:49 Sodium Level 138 Potassium Level 5.1 Chloride Level 94 L Carbon Dioxide Level 24 Anion Gap 20 #H Blood Urea Nitrogen 83 H Creatinine 12.51 H Est Glomerular Filtrat Rate mL/min 3 L Glucose Level 110 Calcium Level 11.0 H Hepatitis B Surface Antigen NEGATIVE Medications Medication Current Medications Linezolid 300 ml @ 300 mls/hr Q12 IVPB Last administered on 06/13/18at 20:34; Admin Dose 300 MLS/HR; Start 06/13/18 at 09:00 Acetaminophen (Tylenol Tab) 650 mg Q6H PRN PO MILD PAIN(1-3)OR ELEVATED TEMP; Start 06/13/18 at 02:00 Naproxen (Naprosyn) 500 mg BID PRN PO PAIN AND/OR INFLAMMATION; Start 06/13/18 at 02:00 Sevelamer Carbonate (Renvela) 800 mg WITH MEALS PO Last administered on 06/13/18at 18:37; Admin Dose 800 MG; Start 06/13/18 at 08:00 Zolpidem Tartrate (Ambien) 10 mg QHS PRN PO INSOMNIA; Start 06/13/18 at 02:00 Morphine Sulfate (morphine) 2 mg Q4H PRN IV SEVERE PAIN LEVEL 7-10 Last administered on 06/13/18at 20:34; Admin Dose 2 MG; Start 06/13/18 at 05:30 Diphenhydramine HCl (Benadryl) 25 mg Q6H PRN IV ITCHING Last administered on 06/13/18at 17:50; Admin Dose 25 MG; Start 06/13/18 at 05:30 Albumin Human 100 ml @ 100 mls/hr WITH DIALYSIS PRN IV SBP <90 DURING DIALYSIS; Start 06/13/18 at 15:30 Heparin Sodium (Porcine) (Heparin (1000 Units/ml)) 3,200 unit AFTER DIALYSIS CATHETER Last administered on 06/13/18at 19:35; Admin Dose 3,200 UNIT; Start 06/13/18 at 16:30 Diphenhydramine HCl (Benadryl) 50 mg Q6H PRN IV itching; Start 06/13/18 at 18:30 GINGER HARDIN M.D. Jun 13, 2018 22:30
[2018-06-14] MEDS: PIPER-TAZO 2.25 GM (PMX) 50 ML IVPB SCH ×4 (00:06→22:59)
[2018-06-14] MEDS: DIPHENHYDRAMINE 50 MG INJ IV PRN ×3 (00:06→19:06)
[2018-06-14 01:09] VITALS: BP 93/51; PULSE 95; RESP 18
[2018-06-14] MEDS: morphine 2 MG INJ IV PRN ×5 (01:17→23:01)
[2018-06-14 07:38] VITALS: BP 82/44; PULSE 85; RESP 20
[2018-06-14 07:52] VITALS: BP 95/44; PULSE 76
[2018-06-14] MEDS: SEVELAMER CARBONATE 800 MG TABLET PO SCH ×3 (08:00→17:47)
--- NOTE | 2018-06-14 08:14 | HPN ---
Date/Time of Note Date/Time of Note DATE: 06/14/18 TIME: 08:14 Interval H&P Admission Note Pt. seen H&P reviewed: No system changes MIMI CORONEL MD Jun 14, 2018 08:14
[2018-06-14] MEDS: LINEZOLID 600 MG/D5W (PMX) 300 ML IVPB SCH ×3 (09:00→21:32)
--- NOTE | 2018-06-14 09:01 | SIPON ---
Date/Time of Note Date/Time of Note DATE: 06/14/18 TIME: 09:00 Operative Report Preoperative Diagnosis ESRD & CENTRAL STENOSIS Postoperative Diagnosis SAME Operation/Procedure Performed CENTRAL VENOGRAM CENTRAL VENOPLASTY CATHETER EXCHANGE TO RARITAN CATHETER Surgeon see signature line engineering inspection assistant NONE Anesthesia: moderate sedation Estimated blood loss: minimal Transfusion Required none Specimen CATHETER TIP Grafts/Implants none Complications none MIMI CORONEL MD Jun 14, 2018 09:01
[2018-06-14] MEDS ORDERED: FENTAnyl 50 MCG/ML VIAL ONE (09:11)
[2018-06-14] MEDS ORDERED: MIDAZOLAM 1 MG/ML 2 ML INJ ONE (09:11)
--- NOTE | 2018-06-14 09:25 | CONS ---
DATE OF ADMISSION: 06/13/2018 DATE OF CONSULTATION: 06/14/2018 Dear Doctors: The patient is a 32-year-old female with a history of end-stage renal disease for the past 9 years an d recent 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 Her last cycle was about 3 weeks ago whom has presented with some drainage from her right chest wall catheter that was placed about 2 weeks ag o. In speaking with the patient, it appears she has had longstanding history of previous central lilliam ous catheters that have been placed. She has had 3 previously placed on her right side, 2 previous p laced on her left side. The patient also underwent a previous left upper extremity AV fistula creati on, it has now thrombosed and is nonfunctioning. At the moment, the patient denies any shortness of breath, chest pain, nausea, vomiting, fever or chills. The patient does appear weak and has alopecia . REVIEW OF SYSTEMS: A 14-point review performed and negative except what is mentioned in the HPI. PAST MEDICAL HISTORY: Entails end-stage renal disease, anemia of chronic disease, leukemia, on hemod ialysis Wednesday, Wednesday, Wednesday, hyperparathyroidism, hungry bone syndrome, question of an infected catheter. PAST SURGICAL HISTORY: Parathyroidectomy in 2017, left arm AV fistula creation, multiple bilateral c hest wall catheter placements and removal secondary for workup of infection. FAMILY HISTORY: Hypertension. SOCIAL HISTORY: Previous heavy drinker, currently denies alcohol, tobacco or illicit drug use. PHYSICAL EXAMINATION: GENERAL: Alert and oriented x3, in no apparent distress. HEENT: Normocephalic, atraumatic. Mucosa moist. Alopecia. NECK: Supple, no carotid bruit. CARDIOVASCULAR: Surgical scar well healed. PULMONARY: Clear breath sounds bilaterally and superficial veins upon her left chest wall and her mi d sternum. CARDIOVASCULAR: S1, S2 present. No murmurs. ABDOMEN: Soft, nontender, nondistended. Bowel sounds positive. Bilateral tattoos in the lower quad rants. LOWER EXTREMITIES: - Right lower extremity palpable femoral pulse, palpable pedal pulse. Motor and sensory intact. Cap illary refill 3 seconds. - Left lower extremity palpable femoral pulse, palpable pedal pulse. Motor and sensory intact. Capi llary refill 3 seconds. - Left upper extremity palpable brachial pulse. Motor and sensory intact. Capillary refill 3 second s. Fistula that is without any bruit or thrill. - Right upper extremity palpable brachial pulse. Motor and sensory intact. Capillary refill 3 secon ds. ASSESSMENT AND PLAN: 1. End-stage renal disease and central stenosis: It seems the patient has had longstanding history of end-stage renal disease over the past 9 years and now has a malfunctioning of left upper extremity fistula with a questionable line sepsis. At the moment on our examination, there is no significant erythema other than some dermatitis around the catheter insertion site and some clear drainage. From the standpoint of this catheter being infected, we will plan to remove this catheter and send the ti p for culture. In the meantime, as the patient likely has central stenosis given her extensive past medical history of multiple chest wall catheter placements concern for losing her central access is t here. Therefore, we will maintain her with a Perez catheter. 2. We will plan to workup the patient for eventual access creation as she recovers through this hosp italization. 3. We will plan for a new Perm-A-Cath replacement in the coming days once Perm-A-Cath cultures retur n. 4. Discussed findings, plan and management with the patient and the primary service and they underst and. A certified elementary vocal music teacher was present. 5. Optimize vascular status (BP meds, diet, nutrition, exercise, sugar control). Thank you for allowing us to participate in the care of your patient. Please call us if you have any questions. Sincerely, Dictated By: MIMI ALVA/NTS Conf#: [id number] DID#: [id number] CC: LUANNE WALTER MD;*EndCC*
[2018-06-14] MEDS ORDERED: HEPARIN 1000 UNITS/ML 10 ML INJ ONE (09:36)
[2018-06-14] MEDS ORDERED: HEPARIN 1000 UNITS/NS (A-LINE) 1,000 ML ONE (09:36)
[2018-06-14] MEDS ORDERED: LIDOCAINE 1% (MDV) 20 ML INJ ONE (09:36)
[2018-06-14] MEDS ORDERED: IODIXANOL LOCM 100 ML BTL ONE (09:36)
--- NOTE | 2018-06-14 10:51 | CONS ---
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 (base on the presence of purulence at the site) - N&E, MRCP in 07/2017 was negative for cholelithiasis or cholecystitis - chills during the dialysis, subjective fever and anorexia are concerning for bloodstream infections - h/o placement and removal of HD catheters, according to Pt, she has had 9 episodes of HD catheter site/catheter infection - h/o [place] [facility] [place] non-functional and not used - primary hyperparathyroidism - h/o subtotal parathyroidectomy of R superior and inferior glands and partial L inferior gland in 06/2016 - h/o complete parathyroidectomy and partial L thyroid lobectomy in 11/2016 - 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 Her last cycle was about 3 weeks ago - allergy to vancomycin (pruritus) Recommendations: - Pending results: blood cultures (peripheral) from 06/12/2018 (NGTD), wound culture done by Dr. Leone from pt's HD catheter 06/13/18 (in process); MRSA screen (in process), Blood cultures via HD catheter were ordered and not done; HD catheter tip culture (Ordered) - Continue empiric linezolid (06/12/2018-) and renally dosed pip/tazo (06/13/2018- ). Will adjust her antibiotics according to the results of her cultures - Will monitor CBC while Pt's on linezolid, if Pt develops anemia and/or thrombocytopenia, will change linezolid to another agent Plan was d/w BRIANA Winkler and with Dr. 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 Patient has remained afebrile, WBC today 4.6. Exam/Review of Systems Exam Vitals Vital Signs Date Temp Pulse Resp B/P (MAP) Pulse Ox O2 O2 Flow FiO2 Time Delivery Rate 06/14/18 76 95/44 (61) 07:52 06/14/18 98.1 20 99 07:38 06/13/18 Room Air 16:07 Intake and Output 06/13/18 06/13/18 06/14/18 1515:00 23:00 07:00 IntakeIntake Total 1020 ml 300 ml 400 ml OutputOutput Total 2800 ml BalanceBalance 1020 ml -2500 ml 400 ml Allergies Coded Allergies vancomycin (Verified Allergy, Severe, 06/13/18) pruritus pineapple (Verified Allergy, Mild, 05/14/18) watermelon (Verified Allergy, Unknown, 05/14/18) peach (Verified Adverse Reaction, Unknown, HEADACHE, 05/14/18) Exam Deferred - 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 Results Result Diagram: 06/14/18 0530 06/14/18 0530 Results 24hrs Laboratory Tests Test 06/13/18 13:46 06/13/18 14:49 06/14/18 05:30 Sodium Level 138 140 Potassium Level 5.1 5.1 Chloride Level 94 L 93 L Carbon Dioxide Level 24 31 Anion Gap 20 #H 16 H Blood Urea Nitrogen 83 H 35 #H Creatinine 12.51 H 7.80 #H Est Glomerular Filtrat Rate mL/min 3 L 6 L Glucose Level 110 89 Calcium Level 11.0 H 11.2 H Hepatitis B Surface Antigen NEGATIVE White Blood Count 4.6 #L Red Blood Count 3.98 L Hemoglobin 13.5 Hematocrit 41.0 Mean Corpuscular Volume 103.0 H Mean Corpuscular Hemoglobin 33.9 H Mean Corpuscular Hemoglobin Concent 32.9 Red Cell Distribution Width 14.1 Platelet Count 181 Mean Platelet Volume 11.4 H Immature Granulocytes % 0.200 Neutrophils % 56.5 Lymphocytes % 28.1 Monocytes % 8.9 Eosinophils % 5.2 Basophils % 1.1 Nucleated Red Blood Cells % 0.0 Immature Granulocytes # 0.010 Neutrophils # 2.6 Lymphocytes # 1.3 Monocytes # 0.4 Eosinophils # 0.2 Basophils # 0.1 Nucleated Red Blood Cells # 0.0 Medications Medication Current Medications Linezolid 300 ml @ 300 mls/hr Q12 IVPB Last administered on 06/13/18at 20:34; Admin Dose 300 MLS/HR; Start 06/13/18 at 09:00 Acetaminophen (Tylenol Tab) 650 mg Q6H PRN PO MILD PAIN(1-3)OR ELEVATED TEMP; Start 06/13/18 at 02:00 Naproxen (Naprosyn) 500 mg BID PRN PO PAIN AND/OR INFLAMMATION; Start 06/13/18 at 02:00 Sevelamer Carbonate (Renvela) 800 mg WITH MEALS PO Last administered on 9at 18:37; Admin Dose 800 MG; Start 06/13/18 at 08:00 Zolpidem Tartrate (Ambien) 10 mg QHS PRN PO INSOMNIA; Start 06/13/18 at 02:00 Morphine Sulfate (morphine) 2 mg Q4H PRN IV SEVERE PAIN LEVEL 7-10 Last administered on 06/14/18 05:37; Admin Dose 2 MG; Start 06/13/18 at 05:30 Diphenhydramine HCl (Benadryl) 25 mg Q6H PRN IV ITCHING Last administered on 06/14/18at 06:13; Admin Dose 25 MG; Start 06/13/18 at 05:30 Albumin Human 100 ml @ 100 mls/hr WITH DIALYSIS PRN IV SBP <90 DURING DIALYSIS; Start 06/13/18 at 15:30 Heparin Sodium (Porcine) (Heparin (1000 Units/ml)) 3,200 unit AFTER DIALYSIS CATHETER Last administered on 06/13/18at 19:35; Admin Dose 3,200 UNIT; Start 06/13/18 at 16:30 Diphenhydramine HCl (Benadryl) 50 mg Q6H PRN IV itching; Start 06/13/18 at 18:30 Piperacillin Sod/ Tazobactam Sod 50 ml @ 100 mls/hr Q8 IVPB Last administered on 06/14/18at 05:27; Admin Dose 100 MLS/HR; Start 06/13/18 at 23:00 NELY ACOSTA NP Jun 14, 2018 10:51
--- NOTE | 2018-06-14 11:51 | CONS ---
Assessment/Plan Assessment/Plan Assessment/Plan 32 yo Female with 1) Possible Catheter related infection, R/o Bacteremia 2) Non Functioning LUE AV 3) ESRD on HD 4) Hypercalemia- stable 5) MBD of CKD Plan for HD tomorrow Vascular Sx has seen pt already and removed perma-cath and replaced F/u Blood Cultures, still pending, HD ordered, UF goal up to 2L as tolerated Ca remains elevated despite stopping calcium supplement No vitamin D supplement on board Will order Low Calcium bath with HD and cont to monitor. Thank you for the opportunity to participate in the care of Ms Pichardo. Consultation Date/Type/Reason Admit Date/Time Jun 13, 2018 at 00:07 Type of Consult Nephrology Date/Time of Note DATE: 06/14/18 TIME: 11:46 Hx of Present Illness S/p HD S/p Replacement of PC Constitutional: No requiring O2 Exam/Review of Systems Vital Signs Vitals Vital Signs Date Temp Pulse Resp B/P (MAP) Pulse Ox O2 O2 Flow FiO2 Time Delivery Rate 06/14/18 76 95/44 (61) 07:52 06/14/18 98.1 20 99 07:38 06/13/18 Room Air 16:07 Intake and Output 06/13/18 06/13/18 06/14/18 1515:00 23:00 07:00 IntakeIntake Total 1020 ml 300 ml 400 ml OutputOutput Total 2800 ml BalanceBalance 1020 ml -2500 ml 400 ml Exam Constitutional: No distress ENMT: mucosa pink and moist Neck: No jvd Respiratory: clear to auscultation; No labored breathing Cardiovascular: regular rate and rhythm; No edema Gastrointestinal: soft, non-tender; No rebound or guarding Extremities: No edema 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: MACHINE CLERICAL VERIFIER II-XII intact, nl mental status; No lethargic Skin: No diaphoresis Labs Result Diagram: 06/14/18 0530 06/14/18 0530 Results 24hrs Laboratory Tests Test 06/13/18 13:46 06/13/18 14:49 06/14/18 05:30 Sodium Level 138 140 Potassium Level 5.1 5.1 Chloride Level 94 L 93 L Carbon Dioxide Level 24 31 Anion Gap 20 #H 16 H Blood Urea Nitrogen 83 H 35 #H Creatinine 12.51 H 7.80 #H Est Glomerular Filtrat Rate mL/min 3 L 6 L Glucose Level 110 89 Calcium Level 11.0 H 11.2 H Hepatitis B Surface Antigen NEGATIVE White Blood Count 4.6 #L Red Blood Count 3.98 L Hemoglobin 13.5 Hematocrit 41.0 Mean Corpuscular Volume 103.0 H Mean Corpuscular Hemoglobin 33.9 H Mean Corpuscular Hemoglobin Concent 32.9 Red Cell Distribution Width 14.1 Platelet Count 181 Mean Platelet Volume 11.4 H Immature Granulocytes % 0.200 Neutrophils % 56.5 Lymphocytes % 28.1 Monocytes % 8.9 Eosinophils % 5.2 Basophils % 1.1 Nucleated Red Blood Cells % 0.0 Immature Granulocytes # 0.010 Neutrophils # 2.6 Lymphocytes # 1.3 Monocytes # 0.4 Eosinophils # 0.2 Basophils # 0.1 Nucleated Red Blood Cells # 0.0 Medications Medications Current Medications Linezolid 300 ml @ 300 mls/hr Q12 IVPB Last administered on 06/13/18at 20:34; Admin Dose 300 MLS/HR; Start 06/13/18 at 09:00 Acetaminophen (Tylenol Tab) 650 mg Q6H PRN PO MILD PAIN(1-3)OR ELEVATED TEMP; Start 06/13/18 at 02:00 Naproxen (Naprosyn) 500 mg BID PRN PO PAIN AND/OR INFLAMMATION; Start 06/13/18 at 02:00 Sevelamer Carbonate (Renvela) 800 mg WITH MEALS PO Last administered on 06/13/18at 18:37; Admin Dose 800 MG; Start 06/13/18 at 08:00 Zolpidem Tartrate (Ambien) 10 mg QHS PRN PO INSOMNIA; Start 06/13/18 at 02:00 Morphine Sulfate (morphine) 2 mg Q4H PRN IV SEVERE PAIN LEVEL 7-10 Last administered on 06/14/18at 05:37; Admin Dose 2 MG; Start 06/13/18 at 05:30 Diphenhydramine HCl (Benadryl) 25 mg Q6H PRN IV ITCHING Last administered on 06/14/18at 06:13; Admin Dose 25 MG; Start 06/13/18 at 05:30 Albumin Human 100 ml @ 100 mls/hr WITH DIALYSIS PRN IV SBP <90 DURING DIALYSIS; Start 06/13/18 at 15:30 Heparin Sodium (Porcine) (Heparin (1000 Units/ml)) 3,200 unit AFTER DIALYSIS CATHETER Last administered on 06/13/18at 19:35; Admin Dose 3,200 UNIT; Start 06/13/18 at 16:30 Diphenhydramine HCl (Benadryl) 50 mg Q6H PRN IV itching; Start 06/13/18 at 18:30 Piperacillin Sod/ Tazobactam Sod 50 ml @ 100 mls/hr Q8 IVPB Last administered on 06/14/18at 05:27; Admin Dose 100 MLS/HR; Start 06/13/18 at 23:00 JUANJO TATUM MD Jun 14, 2018 11:51
[2018-06-14] MEDS ORDERED: DIPHENHYDRAMINE 50 MG INJ IV ONE (13:00)
--- NOTE | 2018-06-14 13:27 | CONS ---
Assessment/Plan Assessment/Plan Problems: (1) Hypercalcemia Status: Acute Comment: This is an acute process. Initially it was not clear on this but when I had her describe her medications I suspect there is been an error in communication she is been taking a very large dose of calcitriol for some time. This can induce vitamin D intoxication which can induce hypercalcemia. Organ to hold off on the calcitriol as well as oral calcium and she will be dialyzed against a lower calcium bath which should resolve this relatively quickly. Please note that the 125 dihydroxy vitamin D calcitriol has a shorter serum half-life. (2) End stage kidney disease Status: Chronic Comment: As per nephrology (3) Tertiary hyperparathyroidism Status: Resolved Comment: Postop (4) Postprocedural hypoparathyroidism Status: Chronic Comment: Noted. Will recheck labs just to be on the thorough set (5) Anemia Status: Chronic Comment: Noted. Qualifiers: Qualified Codes: N18.6 - End stage renal disease; D63.1 - Anemia in chronic kidney disease; Z99.2 - Dependence on renal dialysis Consultation Date/Type/Reason Admit Date/Time Jun 13, 2018 at 00:07 Date of Consultation: Jun 14, 2018 Type of Consult Endocrine Reason for Consultation Hypercalcemia; history of tertiary hyperparathyroidism status post parathyroidectomy with history of hypoparathyroidism postop Requesting Provider: ERICK ROBERTSON Date/Time of Note DATE: 06/14/18 TIME: 13:21 Hx of Present Illness 32-year-old single female who had a history of end-stage renal disease and tertiary hyperparathyroidism. She had actually undergone surgical parathyroidectomy roughly 10 months ago but had postoperative hypoparathyroidism. 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 She had a prolonged course of trying to get her set total body calcium stores up to an acceptable range. She has been managed by nephrology from the dialysis center. The patient reports that at home she is taking calcium pills 7 a day. However when it was reviewed with the patient she says that the calcium pills are very small approximately 2-3 mm in size and orange. This is calcitriol. Constitutional: no complaints Eyes: no complaints ENT: no complaints Respiratory: no complaints Cardiovascular: no complaints Past Medical History Medical History: hypothyroid, renal disease (End-stage renal disease on hemodialysis 3 days a week), other (h/o catheter site infection; history of tertiary hyperparathyroidism; postoperative hypoparathyroidism; history of hungry bone syndrome) Home Meds Active Scripts Naproxen* (Naprosyn*) 500 Mg Tablet, 500 MG PO BID PRN for PAIN AND/OR INFLAMMATION, #30 TAB Prov:LIANA DAWSON MD 05/14/18 Reported Medications Sevelamer Hcl* (Renagel*) 800 Mg Tablet, 800 MG PO WITH MEALS, TAB 05/14/18 Calcium Carbonate* (Tums X-Str) 300 Mg Tab.chew, 300 MG PO DAILY, TAB.CHEW 11/09/17 Zolpidem Tartrate* (Zolpidem Tartrate*) 10 Mg Tablet, 10 MG PO QHS PRN for INSOMNIA, #30 TAB 07/06/17 Medications Current Medications Linezolid 300 ml @ 300 mls/hr Q12 IVPB Last administered on 06/14/18 12:36; Admin Dose 300 MLS/HR; Start 06/13/18 at 09:00 Acetaminophen (Tylenol Tab) 650 mg Q6H PRN PO MILD PAIN(1-3)OR ELEVATED TEMP; Start 06/13/18 at 02:00 Naproxen (Naprosyn) 500 mg BID PRN PO PAIN AND/OR INFLAMMATION; Start 06/13/18 at 02:00 Sevelamer Carbonate (Renvela) 800 mg WITH MEALS PO Last administered on 13:17; Admin Dose 800 MG; Start 06/13/18 at 08:00 Zolpidem Tartrate (Ambien) 10 mg QHS PRN PO INSOMNIA; Start 06/13/18 at 02:00 Morphine Sulfate (morphine) 2 mg Q4H PRN IV SEVERE PAIN LEVEL 7-10 Last administered on 06/14/18 12:36; Admin Dose 2 MG; Start 06/13/18 at 05:30 Diphenhydramine HCl (Benadryl) 25 mg Q6H PRN IV ITCHING Last administered on 06/14/18 06:13; Admin Dose 25 MG; Start 06/13/18 at 05:30 Albumin Human 100 ml @ 100 mls/hr WITH DIALYSIS PRN IV SBP <90 DURING DIALY SIS; Start 06/13/18 at 15:30 Heparin Sodium (Porcine) (Heparin (1000 Units/ml)) 3,200 unit AFTER DIALYSIS CATHETER Last administered on 06/13/18at 19:35; Admin Dose 3,200 UNIT; Start 06/13/18 at 16:30 Diphenhydramine HCl (Benadryl) 50 mg Q6H PRN IV itching; Start 06/13/18 at 18:30 Piperacillin Sod/ Tazobactam Sod 50 ml @ 100 mls/hr Q8 IVPB Last administered on 06/14/18at 05:27; Admin Dose 100 MLS/HR; Start 06/13/18 at 23:00 Allergies: Coded Allergies: vancomycin (Verified Allergy, Severe, 06/13/18) pruritus pineapple (Verified Allergy, Mild, 05/14/18) watermelon (Verified Allergy, Unknown, 05/14/18) peach (Verified Adverse Reaction, Unknown, HEADACHE, 05/14/18) Past Surgical History Past Surgical Hx: other (Status post partial and complete parathyroidectomy in 2017, status post left upper AV fistula creation, status post multiple hemodialysis catheter placement and removal) Family History Significant Family History: hypertension Social History Alcohol Use: none Smoking Status: Never smoker Drug Use: none Exam/Review of Systems Exam Vitals Vital Signs Date Temp Pulse Resp B/P (MAP) Pulse Ox O2 O2 Flow FiO2 Time Delivery Rate 06/14/18 76 95/44 (61) 07:52 06/14/18 98.1 20 99 07:38 06/13/18 Room Air 16:07 Intake and Output 06/13/18 06/13/18 06/14/18 1515:00 23:00 07:00 IntakeIntake Total 1020 ml 300 ml 400 ml OutputOutput Total 2800 ml BalanceBalance 1020 ml -2500 ml 400 ml Constitutional: alert, oriented Neck: supple, non-tender, other (Midline scar) Respiratory: clear to auscultation, normal air movement Cardiovascular: regular rate and rhythm, nl pulses Gastrointestinal: soft, nl liver, spleen, non-tender Results Result Diagram: 06/14/18 0530 06/14/18 0530 Results 24hrs Laboratory Tests Test 06/13/18 13:46 06/13/18 14:49 06/14/18 05:30 Sodium Level 138 140 Potassium Level 5.1 5.1 Chloride Level 94 L 93 L Carbon Dioxide Level 24 31 Anion Gap 20 #H 16 H Blood Urea Nitrogen 83 H 35 #H Creatinine 12.51 H 7.80 #H Est Glomerular Filtrat Rate mL/min 3 L 6 L Glucose Level 110 89 Calcium Level 11.0 H 11.2 H Hepatitis B Surface Antigen NEGATIVE White Blood Count 4.6 #L Red Blood Count 3.98 L Hemoglobin 13.5 Hematocrit 41.0 Mean Corpuscular Volume 103.0 H Mean Corpuscular Hemoglobin 33.9 H Mean Corpuscular Hemoglobin Concent 32.9 Red Cell Distribution Width 14.1 Platelet Count 181 Mean Platelet Volume 11.4 H Immature Granulocytes % 0.200 Neutrophils % 56.5 Lymphocytes % 28.1 Monocytes % 8.9 Eosinophils % 5.2 Basophils % 1.1 Nucleated Red Blood Cells % 0.0 Immature Granulocytes # 0.010 Neutrophils # 2.6 Lymphocytes # 1.3 Monocytes # 0.4 Eosinophils # 0.2 Basophils # 0.1 Nucleated Red Blood Cells # 0.0 Medications Medication Current Medications Linezolid 300 ml @ 300 mls/hr Q12 IVPB Last administered on 06/14/18at 12:36; Admin Dose 300 MLS/HR; Start 06/13/18 at 09:00 Acetaminophen (Tylenol Tab) 650 mg Q6H PRN PO MILD PAIN(1-3)OR ELEVATED TEMP; Start 06/13/18 at 02:00 Naproxen (Naprosyn) 500 mg BID PRN PO PAIN AND/OR INFLAMMATION; Start 06/13/18 at 02:00 Sevelamer Carbonate (Renvela) 800 mg WITH MEALS PO Last administered on 06/14/18 13:17; Admin Dose 800 MG; Start 06/13/18 at 08:00 Zolpidem Tartrate (Ambien) 10 mg QHS PRN PO INSOMNIA; Start 06/13/18 at 02:00 Morphine Sulfate (morphine) 2 mg Q4H PRN IV SEVERE PAIN LEVEL 7-10 Last administered on 06/14/18 12:36; Admin Dose 2 MG; Start 06/13/18 at 05:30 Diphenhydramine HCl (Benadryl) 25 mg Q6H PRN IV ITCHING Last administered on 06/14/18 06:13; Admin Dose 25 MG; Start 06/13/18 at 05:30 Albumin Human 100 ml @ 100 mls/hr WITH DIALYSIS PRN IV SBP <90 DURING DIALYSIS; Start 06/13/18 at 15:30 Heparin Sodium (Porcine) (Heparin (1000 Units/ml)) 3,200 unit AFTER DIALYSIS CATHETER Last administered on 06/13/18at 19:35; Admin Dose 3,200 UNIT; Start 06/13/18 at 16:30 Diphenhydramine HCl (Benadryl) 50 mg Q6H PRN IV itching; Start 06/13/18 at 1 8:30 Piperacillin Sod/ Tazobactam Sod 50 ml @ 100 mls/hr Q8 IVPB Last administered on 06/14/18at 05:27; Admin Dose 100 MLS/HR; Start 06/13/18 at 23:00 ESEQUIEL NAPOLES MD Jun 14, 2018 13:27
[2018-06-14] MEDS: ONDANSETRON 4 MG INJ IV PRN (13:33)
[2018-06-14 13:52] VITALS: BP 79/43; PULSE 61; RESP 20
--- NOTE | 2018-06-14 14:08 | PN ---
Date/Time of Note Date/Time of Note DATE: 06/14/18 TIME: 14:01 Assessment/Plan VTE Prophylaxis Risk score (from Ns)>0 risk: 2 SCD applied (from Ns): Yes Pharmacological prophylaxis: heparin Lines/Catheters IV [facility]from [facility] olivia cath Assessment/Plan Hospital Course Patient is status post removal of chest permacath and has new Olivia catheter for hemodialysis status post hemodialysis yesterday, complains of itching denies any fever, borderline blood pressure. Assessment/Plan -Possible line sepsis, follow-up on blood cultures from the catheter, continue broad-spectrum antibiotics. Dr. Arora is following in infection disease consultation. -Hemodialysis dependent end-stage renal disease. Dr. Omalley is following in nephrology consultation. -History of hyperparathyroidism, status post subtotal parathyroidectomy of the right superior and inferior glands, partial left inferior gland in June 2016. Status post left upper and lower parathyroidectomy and partial left thyroid lobectomy in November [address] Morales, ENT. Dr. De La Fuente is following in endocrinology consultation. -Left chest hemodialysis catheter present on admission, discontinued. -Left upper extremity AV fistula nonfunctioning, Dr. Francisco is following in vascular surgery consultation. Further recommendations based on clinical course. Plan of care discussed with Dr. Turner. Result Diagram: 06/14/18 0530 06/14/18 0530 Results 24hrs Laboratory Tests Test 06/13/18 14:49 06/14/18 05:30 Hepatitis B Surface Antigen NEGATIVE White Blood Count 4.6 #L Red Blood Count 3.98 L Hemoglobin 13.5 Hematocrit 41.0 Mean Corpuscular Volume 103.0 H Mean Corpuscular Hemoglobin 33.9 H Mean Corpuscular Hemoglobin Concent 32.9 Red Cell Distribution Width 14.1 Platelet Count 181 Mean Platelet Volume 11.4 H Immature Granulocytes % 0.200 Neutrophils % 56.5 Lymphocytes % 28.1 Monocytes % 8.9 Eosinophils % 5.2 Basophils % 1.1 Nucleated Red Blood Cells % 0.0 Immature Granulocytes # 0.010 Neutrophils # 2.6 Lymphocytes # 1.3 Monocytes # 0.4 Eosinophils # 0.2 Basophils # 0.1 Nucleated Red Blood Cells # 0.0 Sodium Level 140 Potassium Level 5.1 Chloride Level 93 L Carbon Dioxide Level 31 Anion Gap 16 H Blood Urea Nitrogen 35 #H Creatinine 7.80 #H Est Glomerular Filtrat Rate mL/min 6 L Glucose Level 89 Calcium Level 11.2 H Exam/Review of Systems Exam Vitals Vital Signs Date Temp Pulse Resp B/P (MAP) Pulse Ox O2 O2 Flow FiO2 Time Delivery Rate 06/14/18 97.5 61 20 79/43 (55) 98 13:52 06/13/18 Room Air 16:07 Intake and Output 06/13/18 06/13/18 06/14/18 1515:00 23:00 07:00 IntakeIntake Total 1020 ml 300 ml 400 ml OutputOutput Total 2800 ml BalanceBalance 1020 ml -2500 ml 400 ml Exam Constitutional: alert, oriented Respiratory: clear to auscultation Cardiovascular: nl pulses Gastrointestinal: soft, non-tender Musculoskeletal: nl extremities to inspection Extremities: normal pulses, other (Left upper extremity AV fistula no bruit no thrill) 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: nl mental status Skin: nl turgor Results Results 24hrs Laboratory Tests Test 06/13/18 14:49 06/14/18 05:30 Hepatitis B Surface Antigen NEGATIVE White Blood Count 4.6 #L Red Blood Count 3.98 L Hemoglobin 13.5 Hematocrit 41.0 Mean Corpuscular Volume 103.0 H Mean Corpuscular Hemoglobin 33.9 H Mean Corpuscular Hemoglobin Concent 32.9 Red Cell Distribution Width 14.1 Platelet Count 181 Mean Platelet Volume 11.4 H Immature Granulocytes % 0.200 Neutrophils % 56.5 Lymphocytes % 28.1 Monocytes % 8.9 Eosinophils % 5.2 Basophils % 1.1 Nucleated Red Blood Cells % 0.0 Immature Granulocytes # 0.010 Neutrophils # 2.6 Lymphocytes # 1.3 Monocytes # 0.4 Eosinophils # 0.2 Basophils # 0.1 Nucleated Red Blood Cells # 0.0 Sodium Level 140 Potassium Level 5.1 Chloride Level 93 L Carbon Dioxide Level 31 Anion Gap 16 H Blood Urea Nitrogen 35 #H Creatinine 7.80 #H Est Glomerular Filtrat Rate mL/min 6 L Glucose Level 89 Calcium Level 11.2 H Medications Medication Current Medications Linezolid 300 ml @ 300 mls/hr Q12 IVPB Last administered on 06/14/18at 12:36; Admin Dose 300 MLS/HR; Start 06/13/18 at 09:00 Acetaminophen (Tylenol Tab) 650 mg Q6H PRN PO MILD PAIN(1-3)OR ELEVATED TEMP; Start 06/13/18 at 02:00 Naproxen (Naprosyn) 500 mg BID PRN PO PAIN AND/OR INFLAMMATION; Start 06/13/18 at 02:00 Sevelamer Carbonate (Renvela) 800 mg WITH MEALS PO Last administered on 06/14/18 13:17; Admin Dose 800 MG; Start 06/13/18 at 08:00 Zolpidem Tartrate (Ambien) 10 mg QHS PRN PO INSOMNIA; Start 06/13/18 at 02:00 Morphine Sulfate (morphine) 2 mg Q4H PRN IV SEVERE PAIN LEVEL 7-10 Last administered on 06/14/18 12:36; Admin Dose 2 MG; Start 06/13/18 at 05:30 Diphenhydramine HCl (Benadryl) 25 mg Q6H PRN IV ITCHING Last administered on 06/14/18 06:13; Admin Dose 25 MG; Start 06/13/18 at 05:30 Albumin Human 100 ml @ 100 mls/hr WITH DIALYSIS PRN IV SBP <90 DURING D IALYSIS; Start 06/13/18 at 15:30 Heparin Sodium (Porcine) (Heparin (1000 Units/ml)) 3,200 unit AFTER DIALYSIS CATHETER Last administered on 06/13/18 19:35; Admin Dose 3,200 UNIT; Start 06/13/18 at 16:30 Diphenhydramine HCl (Benadryl) 50 mg Q6H PRN IV itching; Start 06/13/18 at 18:30 Piperacillin Sod/ Tazobactam Sod 50 ml @ 100 mls/hr Q8 IVPB Last administered on 06/14/18 05:27; Admin Dose 100 MLS/HR; Start 06/13/18 at 23:00 Ondansetron HCl (Zofran Inj) 4 mg Q4H PRN IV NAUSEA AND/OR VOMITING Last administered on 06/14/18 13:33; Admin Dose 4 MG; Start 06/14/18 at 13:30 ERICK ROBERTSON Jun 14, 2018 14:08
--- NOTE | 2018-06-14 15:04 | OPR ---
DATE OF OPERATION: 06/14/2018 SURGEON: Salvador Francisco MD PREOPERATIVE DIAGNOSES: 1. End-stage renal disease. 2. Central stenosis. 3. Sepsis. POSTOPERATIVE DIAGNOSES: 1. End-stage renal disease. 2. Central stenosis. 3. Sepsis. ANESTHESIA: Local with moderate sedation. ESTIMATED BLOOD LOSS: Minimal. COMPLICATIONS: None. HEPARIN: As recorded. CONTRAST: As recorded. ACCESS: Right internal jugular vein. CLOSURE: Manual compression and 3-0 nylon suture. SEDATION: Under physician supervision, moderate sedation was administered intravenously under contin uous monitoring by the interventional team and attending physician. Pulse oximeter, heart rate, bloo d pressure were continuously monitored by interventional surgeon. The physician spent time was 45 mi nutes of [id number] time with the patient. INDICATIONS: This is a 32-year-old female with plethora medical conditions whom has currently been t reated for leukemia. Last chemo cycle was 3 weeks ago and also is on end-stage renal disease for abo ut the past 9 years. Apparently, the patient has had multiple bilateral upper chest wall catheters p laced and as of recent about 2 weeks ago had a new one. Apparently, the patient has presented with s ome drainage from the catheter site associated with nausea and vomiting. Upon evaluation of the deejay ent, the patient did not have any purulence or erythema or cellulitis or induration in that area; how ever, there were findings of dermatitis. Therefore, decision was made to remove the catheter and tiffanie ce a Perez catheter and send the catheter tip for culture to evaluate for a line infection. Based on these findings, risks, benefits and alternatives were discussed with the patient. She understood all that is involved and agreed to proceed. Risks including but not limited to bleeding, thrombosis, embolization, myocardial infarction, , stroke, device malfunction, infection, nephrotoxicity. The patient agreed to proceed. PROCEDURES: 1. Right introduction of catheter into the SVC, SVC venogram. 2. Venoplasty of the right brachiocephalic vein and superior vena cava using a 14 x 40 mm balloon. 3. Removal of permanent hemodialysis catheter. 4. Placement of a new Perez catheter. DESCRIPTION OF PROCEDURE: The patient was brought into the angio suite and positioned in supine posi tion on fluoroscopic table. Sedation was administered without any complications. The right chest an d neck were then shaved, prepped and draped in the usual standard sterile fashion. Timeout and appro priate sites were marked and confirmed. Local anesthesia was infiltrated in the region of the right chest wall tunneled catheter site. At this point, the catheter was free from the surrounding granula tion tissue and we went ahead and used the venous port of the catheter and passed a stiff wire and pl aced in proximal aspect of the superior vena cava. At this point, the permanent catheter was removed and the catheter tip was then sent for microbiology for further evaluation. At this point, we went ahead and placed a guiding catheter introduced into the SVC. At that point, we went ahead and perfor med a SVC venogram and guided our stiff wire towards the distal aspect of the inferior vena cava. On ce we had that and we had adequate wire access control, we decided to perform a venoplasty. We ident ified that the patient is having stenosis of the right brachiocephalic vein and SVC. Therefore, we w ent ahead and used a 14 x 40 mm balloon to perform a venoplasty of the right brachiocephalic vein and proximal aspect of the superior vena cava. At this point, the patient tolerated that well and then we went ahead and placed a new Perez catheter placement over a wire in order to maintain her centra l access as the patient has had multiple chest wall catheters and has a stenosis already on her left chest wall catheter. The central vein patency is of importance as the patient has end-stage renal di sease and will require to have that. At this point, the patient tolerated the procedure well and a Q uinton catheter was secured with a 3-0 nylon suture. The patient tolerated procedure well and was ta mica to the postanesthesia care unit in stable condition. All sponge, catheters, needles and wires we re correct x2. Dictated By: SALVADOR ALVA/MIKE Conf#: [id number] DID#: [id number] CC: LUANNE WALTER MD; MUMTAZ LOPEZ MD;*EndCC*
[2018-06-14 15:08] VITALS: BP 89/50
[2018-06-14 20:07] VITALS: BP 83/40; PULSE 97; RESP 18
[2018-06-15] VITALS (25 sets, daily range): BP systolic 76–107; BP diastolic 35–64; PULSE 67–112; RESP 16–18
[2018-06-15] MEDS: DIPHENHYDRAMINE 50 MG INJ IV PRN ×3 (01:19→13:47)
[2018-06-15] MEDS: morphine 2 MG INJ IV PRN ×5 (03:52→23:20)
[2018-06-15] MEDS: PIPER-TAZO 2.25 GM (PMX) 50 ML IVPB SCH ×3 (06:06→23:19)
[2018-06-15] MEDS: SEVELAMER CARBONATE 800 MG TABLET PO SCH ×3 (07:44→18:10)
[2018-06-15] MEDS: LINEZOLID 600 MG/D5W (PMX) 300 ML IVPB SCH (09:05)
--- NOTE | 2018-06-15 13:46 | CONS ---
Assessment/Plan Assessment/Plan Problems: (1) Hypercalcemia Status: Resolved Comment: Her hypercalcemia has resolved with holding off on high-dose calcitriol. I may try imbalances using oral calcium and calcitriol at a more standardized dosing. (2) Postprocedural hypoparathyroidism Status: Chronic Comment: Adjust medications to bring under control. Consultation Date/Type/Reason Admit Date/Time Jun 13, 2018 at 00:07 Initial Consult Date 06/14/18 Type of Consult Endocrine Reason for Consultation Patient reports some pain at the site of the catheter especially if she laughs Requesting Provider: ERICK ROBERTSON Date/Time of Note DATE: 06/15/18 TIME: 13:45 24 HR Interval Summary Constitutional: no complaints Detailed Summary Endocrine: no complaints Exam/Review of Systems Exam Vitals Vital Signs Date Temp Pulse Resp B/P (MAP) Pulse Ox O2 O2 Flow FiO2 Time Delivery Rate 06/15/18 98.0 79 16 89/51 (64) 100 07:27 06/15/18 Room Air 01:18 Intake and Output 06/14/18 06/14/18 06/15/18 1515:00 23:00 07:00 IntakeIntake Total 590 ml 780 ml 100 ml BalanceBalance 590 ml 780 ml 100 ml Constitutional: alert, oriented Respiratory: clear to auscultation, normal air movement Cardiovascular: regular rate and rhythm, nl pulses Extremities: normal pulses Results Result Diagram: 06/15/18 0433 06/15/18 0433 Results 24hrs Laboratory Tests Test 06/14/18 14:06 06/15/18 04:33 Vitamin D 1,25-Dihydroxy 39.8 White Blood Count 4.9 Red Blood Count 3.49 L Hemoglobin 11.7 L Hematocrit 35.8 L Mean Corpuscular Volume 102.6 H Mean Corpuscular Hemoglobin 33.5 H Mean Corpuscular Hemoglobin Concent 32.7 Red Cell Distribution Width 14.0 Platelet Count 149 Mean Platelet Volume 11.6 H Immature Granulocytes % 0.200 Neutrophils % 57.0 Lymphocytes % 26.7 Monocytes % 9.5 Eosinophils % 5.8 Basophils % 0.8 Nucleated Red Blood Cells % 0.0 Immature Granulocytes # 0.010 Neutrophils # 2.8 Lymphocytes # 1.3 Monocytes # 0.5 Eosinophils # 0.3 Basophils # 0.0 Nucleated Red Blood Cells # 0.0 Sodium Level 140 Potassium Level 5.3 H Chloride Level 93 L Carbon Dioxide Level 29 Anion Gap 18 H Blood Urea Nitrogen 60 H Creatinine 10.65 #H Est Glomerular Filtrat Rate mL/min 4 L Glucose Level 86 Calcium Level 10.1 Ionized Calcium (Measured) 1.0 L Thyroid Stimulating Hormone (TSH) 0.954 Free Thyroxine 0.97 Medications Medication Current Medications Linezolid 300 ml @ 300 mls/hr Q12 IVPB Last administered on 06/15/18 09:05; Admin Dose 300 MLS/HR; Start 06/13/18 at 09:00 Acetaminophen (Tylenol Tab) 650 mg Q6H PRN PO MILD PAIN(1-3)OR ELEVATED TEMP; Start 06/13/18 at 02:00 Naproxen (Naprosyn) 500 mg BID PRN PO PAIN AND/OR INFLAMMATION; Start 06/13/18 at 02:00 Sevelamer Carbonate (Renvela) 800 mg WITH MEALS PO Last administered on 06/14/18 17:47; Admin Dose 800 MG; Start 06/13/18 at 08:00 Zolpidem Tartrate (Ambien) 10 mg QHS PRN PO INSOMNIA; Start 06/13/18 at 02:00 Morphine Sulfate (morphine) 2 mg Q4H PRN IV SEVERE PAIN LEVEL 7-10 Last administered on 06/15/18 12:38; Admin Dose 2 MG; Start 06/13/18 at 05:30 Diphenhydramine HCl (Benadryl) 25 mg Q6H PRN IV ITCHING Last administered on 06/15/18 07:44; Admin Dose 25 MG; Start 06/13/18 at 05:30 Albumin Human 100 ml @ 100 mls/hr WITH DIALYSIS PRN IV SBP <90 DURING DIALYSIS; Start 06/13/18 at 15:30 Heparin Sodium (Porcine) (Heparin (1000 Units/ml)) 3,200 unit AFTER DIALYSIS CATHETER Last administered on 06/13/18 19:35; Admin Dose 3,200 UNIT; Start 06/13/18 at 16:30 Diphenhydramine HCl (Benadryl) 50 mg Q6H PRN IV itching; Start 06/13/18 at 18:30 Piperacillin Sod/ Tazobactam Sod 50 ml @ 100 mls/hr Q8 IVPB Last administered on 2/20/19at 06:06; Admin Dose 100 MLS/HR; Start 06/13/18 at 23:00 Ondansetron HCl (Zofran Inj) 4 mg Q4H PRN IV NAUSEA AND/OR VOMITING Last admini stered on 06/14/18at 13:33; Admin Dose 4 MG; Start 06/14/18 at 13:30 Calcium Carbonate (Oyster Shell Calcium) 1.25 gm TID PO ; Start 06/15/18 at 21:00; Status UNV Calcitriol (Rocaltrol) 0.25 mcg QHS PO ; Start 06/15/18 at 21:00; Status UNV ESEQUIEL NAPOLES MD Jun 15, 2018 13:46
--- NOTE | 2018-06-15 13:58 | CONS ---
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 (base on the presence of purulence at the site) - N&E, MRCP in 07/2017 was negative for cholelithiasis or cholecystitis - chills during the dialysis, subjective fever and anorexia are concerning for bloodstream infections - h/o placement and removal of HD catheters, according to Pt, she has had 9 episodes of HD catheter site/catheter infection - h/o creation of AVF in [facility] in 2016, non-functional and not used - primary hyperparathyroidism - h/o subtotal parathyroidectomy of R superior and inferior glands and partial L inferior gland in 06/2016 - h/o complete parathyroidectomy and partial L thyroid lobectomy in 11/2016 - 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 Her last cycle was about 3 weeks ago - allergy to vancomycin (pruritus) Recommendations: - Pending results: blood cultures (peripheral) from 06/12/2018 (NGTD), wound culture done by Dr. Leone from pt's HD catheter 06/13/18 (in process); MRSA screen (in process), Blood cultures via HD catheter were ordered and not done; HD catheter tip culture (Ordered) - Continue empiric linezolid (06/12/2018-) and renally dosed pip/tazo (06/13/2018- ). Will adjust her antibiotics according to the results of her cultures; plts 14 9 noted today. - Will continually monitor CBC while Pt's on linezolid, if Pt develops anemia and/or thrombocytopenia, will change linezolid to another agent Consultation Date/Type/Reason Admit Date/Time Jun 13, 2018 at 00:07 Initial Consult Date 06/14/18 Requesting Provider: ERICK ROBERTSON Date/Time of Note DATE: 06/15/18 TIME: 13:56 24 HR Interval Summary Free Text/Dictation she is complaining of pain on right side Exam/Review of Systems Exam Vitals Vital Signs Date Temp Pulse Resp B/P (MAP) Pulse Ox O2 O2 Flow FiO2 Time Delivery Rate 06/15/18 98.0 79 16 89/51 (64) 100 07:27 06/15/18 Room Air 01:18 Intake and Output 06/14/18 06/14/18 06/15/18 1515:00 23:00 07:00 IntakeIntake Total 590 ml 780 ml 100 ml BalanceBalance 590 ml 780 ml 100 ml Exam she appears calm Constitutional: alert, oriented, well developed Psych: no complaints, nl mood/affect Eyes: nl conjunctiva, EOMI, nl lids, nl sclera, PERRL ENMT: nl external ears & nose, nl lips & teeth, nl nasal mucosa & septum Respiratory: clear to auscultation, normal air movement Cardiovascular: regular rate and rhythm, nl pulses Gastrointestinal: soft Results Result Diagram: 06/15/18 0433 06/15/18 0433 Results 24hrs Laboratory Tests Test 06/14/18 14:06 06/15/18 04:33 Vitamin D 1,25-Dihydroxy 39.8 White Blood Count 4.9 Red Blood Count 3.49 L Hemoglobin 11.7 L Hematocrit 35.8 L Mean Corpuscular Volume 102.6 H Mean Corpuscular Hemoglobin 33.5 H Mean Corpuscular Hemoglobin Concent 32.7 Red Cell Distribution Width 14.0 Platelet Count 149 Mean Platelet Volume 11.6 H Immature Granulocytes % 0.200 Neutrophils % 57.0 Lymphocytes % 26.7 Monocytes % 9.5 Eosinophils % 5.8 Basophils % 0.8 Nucleated Red Blood Cells % 0.0 Immature Granulocytes # 0.010 Neutrophils # 2.8 Lymphocytes # 1.3 Monocytes # 0.5 Eosinophils # 0.3 Basophils # 0.0 Nucleated Red Blood Cells # 0.0 Sodium Level 140 Potassium Level 5.3 H Chloride Level 93 L Carbon Dioxide Level 29 Anion Gap 18 H Blood Urea Nitrogen 60 H Creatinine 10.65 #H Est Glomerular Filtrat Rate mL/min 4 L Glucose Level 86 Calcium Level 10.1 Ionized Calcium (Measured) 1.0 L Thyroid Stimulating Hormone (TSH) 0.954 Free Thyroxine 0.97 Medications Medication Current Medications Linezolid 300 ml @ 300 mls/hr Q12 IVPB Last administered on 06/15/18at 09:05; Admin Dose 300 MLS/HR; Start 06/13/18 at 09:00 Acetaminophen (Tylenol Tab) 650 mg Q6H PRN PO MILD PAIN(1-3)OR ELEVATED TEMP; Start 06/13/18 at 02:00 Naproxen (Naprosyn) 500 mg BID PRN PO PAIN AND/OR INFLAMMATION; Start 06/13/18 at 02:00 Sevelamer Carbonate (Renvela) 800 mg WITH MEALS PO Last administered on 9at 17:47; Admin Dose 800 MG; Start 06/13/18 at 08:00 Zolpidem Tartrate (Ambien) 10 mg QHS PRN PO INSOMNIA; Start 06/13/18 at 02:00 Morphine Sulfate (morphine) 2 mg Q4H PRN IV SEVERE PAIN LEVEL 7-10 Last administered on 06/15/18 12:38; Admin Dose 2 MG; Start 06/13/18 at 05:30 Diphenhydramine HCl (Benadryl) 25 mg Q6H PRN IV ITCHING Last administered on 06/15/18 13:47; Admin Dose 25 MG; Start 06/13/18 at 05:30 Albumin Human 100 ml @ 100 mls/hr WITH DIALYSIS PRN IV SBP <90 DURING DIALYSIS; Start 06/13/18 at 15:30 Heparin Sodium (Porcine) (Heparin (1000 Units/ml)) 3,200 unit AFTER DIALYSIS CATHETER Last administered on 06/13/18 19:35; Admin Dose 3,200 UNIT; Start 06/13/18 at 16:30 Diphenhydramine HCl (Benadryl) 50 mg Q6H PRN IV itching; Start 06/13/18 at 18:30 Piperacillin Sod/ Tazobactam Sod 50 ml @ 100 mls/hr Q8 IVPB Last administered on 06/15/18 13:47; Admin Dose 100 MLS/HR; Start 06/13/18 at 23:00 Ondansetron HCl (Zofran Inj) 4 mg Q4H PRN IV NAUSEA AND/OR VOMITING Last administered on 06/14/18 13:33; Admin Dose 4 MG; Start 06/14/18 at 13:30 Calcium Carbonate (Oyster Shell Calcium) 1.25 gm TID PO ; Start 06/15/18 at 21:00 Calcitriol (Rocaltrol) 0.25 mcg QHS PO ; Start 06/15/18 at 21:00 MUMTAZ LOPEZ MD Jun 15, 2018 13:58
--- NOTE | 2018-06-15 15:12 | CONS ---
Assessment/Plan Assessment/Plan Assessment/Plan (Daily) 32 yo Female with 1) Possible Catheter related infection, R/o Bacteremia 2) Non Functioning LUE AV 3) ESRD on HD 4) Hypercalemia- stable 5) MBD of CKD Consultation Date/Type/Reason Admit Date/Time Jun 13, 2018 at 00:07 Initial Consult Date 06/14/18 Requesting Provider: ERICK ROBERTSON Date/Time of Note DATE: 06/15/18 TIME: 15:12 Exam/Review of Systems Exam Vitals Vital Signs Date Temp Pulse Resp B/P (MAP) Pulse Ox O2 O2 Flow FiO2 Time Delivery Rate 06/15/18 97.8 67 16 94/50 (65) 100 14:14 06/15/18 Room Air 01:18 Intake and Output 06/14/18 06/14/18 06/15/18 1515:00 23:00 07:00 IntakeIntake Total 590 ml 780 ml 100 ml BalanceBalance 590 ml 780 ml 100 ml Results Result Diagram: 06/15/18 0433 06/15/18 0433 Results 24hrs Laboratory Tests Test 06/15/18 04:33 White Blood Count 4.9 Red Blood Count 3.49 L Hemoglobin 11.7 L Hematocrit 35.8 L Mean Corpuscular Volume 102.6 H Mean Corpuscular Hemoglobin 33.5 H Mean Corpuscular Hemoglobin Concent 32.7 Red Cell Distribution Width 14.0 Platelet Count 149 Mean Platelet Volume 11.6 H Immature Granulocytes % 0.200 Neutrophils % 57.0 Lymphocytes % 26.7 Monocytes % 9.5 Eosinophils % 5.8 Basophils % 0.8 Nucleated Red Blood Cells % 0.0 Immature Granulocytes # 0.010 Neutrophils # 2.8 Lymphocytes # 1.3 Monocytes # 0.5 Eosinophils # 0.3 Basophils # 0.0 Nucleated Red Blood Cells # 0.0 Sodium Level 140 Potassium Level 5.3 H Chloride Level 93 L Carbon Dioxide Level 29 Anion Gap 18 H Blood Urea Nitrogen 60 H Creatinine 10.65 #H Est Glomerular Filtrat Rate mL/min 4 L Glucose Level 86 Calcium Level 10.1 Ionized Calcium (Measured) 1.0 L Thyroid Stimulating Hormone (TSH) 0.954 Free Thyroxine 0.97 Medications Medication Current Medications Linezolid 300 ml @ 300 mls/hr Q12 IVPB Last administered on 06/15/18at 09:05; Admin Dose 300 MLS/HR; Start 06/13/18 at 09:00 Acetaminophen (Tylenol Tab) 650 mg Q6H PRN PO MILD PAIN(1-3)OR ELEVATED TEMP; Start 06/13/18 at 02:00 Naproxen (Naprosyn) 500 mg BID PRN PO PAIN AND/OR INFLAMMATION; Start 06/13/18 at 02:00 Sevelamer Carbonate (Renvela) 800 mg WITH MEALS PO Last administered on 06/14/18 17:47; Admin Dose 800 MG; Start 06/13/18 at 08:00 Zolpidem Tartrate (Ambien) 10 mg QHS PRN PO INSOMNIA; Start 06/13/18 at 02:00 Morphine Sulfate (morphine) 2 mg Q4H PRN IV SEVERE PAIN LEVEL 7-10 Last administered on 06/15/18 12:38; Admin Dose 2 MG; Start 06/13/18 at 05:30 Diphenhydramine HCl (Benadryl) 25 mg Q6H PRN IV ITCHING Last administered on 06/15/18 13:47; Admin Dose 25 MG; Start 06/13/18 at 05:30 Albumin Human 100 ml @ 100 mls/hr WITH DIALYSIS PRN IV SBP <90 DURING DIALYSIS; Start 06/13/18 at 15:30 Heparin Sodium (Porcine) (Heparin (1000 Units/ml)) 3,200 unit AFTER DIALYSIS CATHETER Last administered on 06/13/18 19:35; Admin Dose 3,200 UNIT; Start 06/13/18 at 16:30 Diphenhydramine HCl (Benadryl) 50 mg Q6H PRN IV itching; Start 06/13/18 at 18:30 Piperacillin Sod/ Tazobactam Sod 50 ml @ 100 mls/hr Q8 IVPB Last administered on 06/15/18 13:47; Admin Dose 100 MLS/HR; Start 06/13/18 at 23:00 Ondansetron HCl (Zofran Inj) 4 mg Q4H PRN IV NAUSEA AND/OR VOMITING Last administered on 06/14/18 13:33; Admin Dose 4 MG; Start 06/14/18 at 13:30 Calcium Carbonate (Oyster Shell Calcium) 1.25 gm TID PO ; Start 06/15/18 at 2 1:00 Calcitriol (Rocaltrol) 0.25 mcg QHS PO ; Start 06/15/18 at 21:00 UJANJO TATUM MD Jun 15, 2018 15:12
--- NOTE | 2018-06-15 16:30 | PN ---
Date/Time of Note Date/Time of Note DATE: 06/15/18 TIME: 16:26 Assessment/Plan VTE Prophylaxis Risk score (from Ns)>0 risk: 1 SCD applied (from Ns): Yes Pharmacological prophylaxis: heparin Lines/Catheters IV Catheter Type (from Nrs): Central Line Central line still needed: Yes Assessment/Plan Hospital Course Patient is continued on Zyvox and Zosyn for permacath, remains afebrile, stable vital signs. Assessment/Plan -Possible line sepsis, follow-up on blood cultures from the catheter, continue broad-spectrum antibiotics. Dr. Arora is following in infection disease consultation. -Hemodialysis dependent end-stage renal disease. Dr. Omalley is following in nephrology consultation. -History of hyperparathyroidism, status post subtotal parathyroidectomy of the right superior and inferior glands, partial left inferior gland in June 2016. Status post left upper and lower parathyroidectomy and partial left thyroid lobectomy in November [address] Morales, ENT. Dr. De La Fuente is following in endocrinology consultation. -Left chest hemodialysis catheter present on admission, discontinued. -Left upper extremity AV fistula nonfunctioning, Dr. Francisco is following in vascular surgery consultation. -Status post right chest Perez catheter placement Further recommendations based on clinical course. Plan of care discussed with Dr. Turner. Result Diagram: 06/15/18 0433 06/15/18 0433 Results 24hrs Laboratory Tests Test 06/15/18 04:33 White Blood Count 4.9 Red Blood Count 3.49 L Hemoglobin 11.7 L Hematocrit 35.8 L Mean Corpuscular Volume 102.6 H Mean Corpuscular Hemoglobin 33.5 H Mean Corpuscular Hemoglobin Concent 32.7 Red Cell Distribution Width 14.0 Platelet Count 149 Mean Platelet Volume 11.6 H Immature Granulocytes % 0.200 Neutrophils % 57.0 Lymphocytes % 26.7 Monocytes % 9.5 Eosinophils % 5.8 Basophils % 0.8 Nucleated Red Blood Cells % 0.0 Immature Granulocytes # 0.010 Neutrophils # 2.8 Lymphocytes # 1.3 Monocytes # 0.5 Eosinophils # 0.3 Basophils # 0.0 Nucleated Red Blood Cells # 0.0 Sodium Level 140 Potassium Level 5.3 H Chloride Level 93 L Carbon Dioxide Level 29 Anion Gap 18 H Blood Urea Nitrogen 60 H Creatinine 10.65 #H Est Glomerular Filtrat Rate mL/min 4 L Glucose Level 86 Calcium Level 10.1 Ionized Calcium (Measured) 1.0 L Thyroid Stimulating Hormone (TSH) 0.954 Free Thyroxine 0.97 Exam/Review of Systems Exam Vitals Vital Signs Date Temp Pulse Resp B/P (MAP) Pulse Ox O2 O2 Flow FiO2 Time Delivery Rate 06/15/18 97.8 67 16 94/50 (65) 100 14:14 06/15/18 Room Air 01:18 Intake and Output 06/14/18 06/14/18 06/15/18 1515:00 23:00 07:00 IntakeIntake Total 590 ml 780 ml 100 ml BalanceBalance 590 ml 780 ml 100 ml Exam Constitutional: alert, oriented Respiratory: clear to auscultation Cardiovascular: nl pulses Gastrointestinal: soft, non-tender Musculoskeletal: nl extremities to inspection Extremities: normal pulses, other (Left upper extremity AV fistula no bruit no thrill) 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: nl mental status Skin: nl turgor Right chest hemodialysis catheter Results Results 24hrs Laboratory Tests Test 06/15/18 04:33 White Blood Count 4.9 Red Blood Count 3.49 L Hemoglobin 11.7 L Hematocrit 35.8 L Mean Corpuscular Volume 102.6 H Mean Corpuscular Hemoglobin 33.5 H Mean Corpuscular Hemoglobin Concent 32.7 Red Cell Distribution Width 14.0 Platelet Count 149 Mean Platelet Volume 11.6 H Immature Granulocytes % 0.200 Neutrophils % 57.0 Lymphocytes % 26.7 Monocytes % 9.5 Eosinophils % 5.8 Basophils % 0.8 Nucleated Red Blood Cells % 0.0 Immature Granulocytes # 0.010 Neutrophils # 2.8 Lymphocytes # 1.3 Monocytes # 0.5 Eosinophils # 0.3 Basophils # 0.0 Nucleated Red Blood Cells # 0.0 Sodium Level 140 Potassium Level 5.3 H Chloride Level 93 L Carbon Dioxide Level 29 Anion Gap 18 H Blood Urea Nitrogen 60 H Creatinine 10.65 #H Est Glomerular Filtrat Rate mL/min 4 L Glucose Level 86 Calcium Level 10.1 Ionized Calcium (Measured) 1.0 L Thyroid Stimulating Hormone (TSH) 0.954 Free Thyroxine 0.97 Medications Medication Current Medications Linezolid 300 ml @ 300 mls/hr Q12 IVPB Last administered on 06/15/18at 09:05; Admin Dose 300 MLS/HR; Start 06/13/18 at 09:00 Acetaminophen (Tylenol Tab) 650 mg Q6H PRN PO MILD PAIN(1-3)OR ELEVATED TEMP; Start 06/13/18 at 02:00 Naproxen (Naprosyn) 500 mg BID PRN PO PAIN AND/OR INFLAMMATION; Start 06/13/18 at 02:00 Sevelamer Carbonate (Renvela) 800 mg WITH MEALS PO Last administered on 06/14/18 17:47; Admin Dose 800 MG; Start 06/13/18 at 08:00 Zolpidem Tartrate (Ambien) 10 mg QHS PRN PO INSOMNIA; Start 06/13/18 at 02:00 Morphine Sulfate (morphine) 2 mg Q4H PRN IV SEVERE PAIN LEVEL 7-10 Last administered on 06/15/18 12:38; Admin Dose 2 MG; Start 06/13/18 at 05:30 Diphenhydramine HCl (Benadryl) 25 mg Q6H PRN IV ITCHING Last administered on 06/15/18 13:47; Admin Dose 25 MG; Start 06/13/18 at 05:30 Albumin Human 100 ml @ 100 mls/hr WITH DIALYSIS PRN IV SBP <90 DURING DIALYSIS; Start 06/13/18 at 15:30 Heparin Sodium (Porcine) (Heparin (1000 Units/ml)) 3,200 unit AFTER DIALYSIS CATHETER Last administered on 06/13/18 19:35; Admin Dose 3,200 UNIT; Start 06/13/18 at 16:30 Diphenhydramine HCl (Benadryl) 50 mg Q6H PRN IV itching; Start 06/13/18 at 18:30 Piperacillin Sod/ Tazobactam Sod 50 ml @ 100 mls/hr Q8 IVPB Last administered on 06/15/18 13:47; Admin Dose 100 MLS/HR; Start 06/13/18 at 23:00 Ondansetron HCl (Zofran Inj) 4 mg Q4H PRN IV NAUSEA AND/OR VOMITING Last administered on 06/14/18 13:33; Admin Dose 4 MG; Start 06/14/18 at 13:30 Calcium Carbonate (Oyster Shell Calcium) 1.25 gm TID PO ; Start 06/15/18 at 21:00 Calcitriol (Rocaltrol) 0.25 mcg QHS PO ; Start 06/15/18 at 21:00 ERICK ROBERTSON Jun 15, 2018 16:30
[2018-06-15 18:47] LABS: PTH CALCIUM 10.4 mg/dL (8.6-10.2)
[2018-06-15] MEDS: ALBUMIN HUMAN 25% 100 ML IV PRN ×2 (20:19→21:47)
[2018-06-15] MEDS: CALCITRIOL 0.25 MCG CAP PO SCH (23:20)
[2018-06-15] MEDS: CALCIUM CARBONATE 1.25 GM TAB PO SCH (23:20)
[2018-06-16] VITALS (7 sets, daily range): BP systolic 72–88; BP diastolic 42–50; PULSE 70–91; RESP 16–18
[2018-06-16] MEDS: HEPARIN 1000 UNITS/ML 10 ML INJ CATHETER SCH (00:01)
[2018-06-16] MEDS: LINEZOLID 600 MG/D5W (PMX) 300 ML IVPB SCH ×3 (00:07→20:53)
[2018-06-16] MEDS: morphine 2 MG INJ IV PRN ×5 (03:07→22:42)
[2018-06-16] MEDS: DIPHENHYDRAMINE 50 MG INJ IV PRN ×4 (03:07→21:33)
[2018-06-16] MEDS: PIPER-TAZO 2.25 GM (PMX) 50 ML IVPB SCH ×3 (05:49→22:10)
[2018-06-16] MEDS: SEVELAMER CARBONATE 800 MG TABLET PO SCH ×3 (08:00→18:10)
[2018-06-16] MEDS: CALCIUM CARBONATE 1.25 GM TAB PO SCH (08:43)
--- NOTE | 2018-06-16 10:08 | PN ---
Date/Time of Note Date/Time of Note DATE: 06/16/18 TIME: 09:56 Assessment/Plan Lines/Catheters IV Catheter Type (from [facility]): Central Line Assessment/Plan Chief Complaint/Hosp Course -End-stage renal disease and central stenosis: It seems the patient has had longstanding history of end-stage renal disease over the past 9 years and now has a malfunctioning of left upper extremity fistula with a questionable line sepsis. At the moment on our examination, there is no significant erythema other than some dermatitis around the catheter insertion site and some clear drainage. From the standpoint of this catheter being infected, we removed this catheter and send the tip for culture. In the meantime, as the patient had central stenosis given her extensive past medical history of multiple chest wall catheter placements concern for losing her central access was there. Therefore, we maintained her access with a Perez catheter for now until blood and catheter tip cultures return -S/P Central venogram and venoplasty -S/P Removal- perm catheter -S/P Quintoin catheter placement -Will plan to workup the patient for eventual access creation as she recovers through this hospitalization. -Discussed findings, plan and management with the patient and the primary service and they understand. A certified bandage maker was present. -Optimize vascular status (BP meds, diet, nutrition, exercise, sugar control). -Thank you for allowing us to participate in the care of your patient. Please call us if you have any questions. Subjective 24 Hr Interval Summary no new vascular events overnight Constitutional: no complaints Exam/Review of Systems Vital Signs Vitals Vital Signs Date Temp Pulse Resp B/P (MAP) Pulse Ox O2 O2 Flow FiO2 Time Delivery Rate 06/16/18 78 18 88/50 (63) 98 Room Air 08:41 06/16/18 98.6 07:48 Intake and Output 06/15/18 06/15/18 06/16/18 1515:00 23:00 07:00 IntakeIntake Total 830 ml 400 ml OutputOutput Total 3200 ml BalanceBalance -2370 ml 400 ml Exam Free Text/Dictation GENERAL: Alert and oriented x3 HEENT: Normocephalic, atraumatic. Mucosa moist. Alopecia. NECK: Supple, no carotid bruit. CARDIOVASCULAR: Surgical scar well healed. right chest Perez, no pus or erythema PULMONARY: Clear breath sounds bilaterally and superficial veins upon her left chest wall and her mid sternum. CARDIOVASCULAR: S1, S2 present. No murmurs. ABDOMEN: Soft, nontender, nondistended. Bowel sounds positive. Bilateral tattoos in the lower quadrants. LOWER EXTREMITIES: - Right lower extremity palpable femoral pulse, palpable pedal pulse. Motor and sensory intact. Capillary refill 3 seconds. - Left lower extremity palpable femoral pulse, palpable pedal pulse. Motor and sensory intact. Capillary refill 3 seconds. - Left upper extremity palpable brachial pulse. Motor and sensory intact. Capillary refill 3 seconds. Fistula that is without any bruit or thrill. - Right upper extremity palpable brachial pulse. Motor and sensory intact. Capillary refill 3 seconds. Results Result Diagram: 06/15/18 0433 06/16/18 0429 MIMI CORONEL MD Jun 16, 2018 10:07
--- NOTE | 2018-06-16 13:42 | CONS ---
Assessment/Plan Assessment/Plan Problems: (1) Hypercalcemia Status: Resolved Comment: Noted. We need to be careful about watching for hypocalcemia. Also please note the elevated albumin level (2) Postprocedural hypoparathyroidism Status: Chronic Comment: Back on calcitriol at a more modest dose (3) End stage kidney disease Status: Chronic Comment: As per nephrology Consultation Date/Type/Reason Admit Date/Time Jun 13, 2018 at 00:07 Initial Consult Date 06/14/18 Type of Consult Endocrine Reason for Consultation Hypoparathyroidism; end-stage renal disease Requesting Provider: ERICK ROBERTSON Date/Time of Note DATE: 06/16/18 TIME: 13:41 24 HR Interval Summary Free Text/Dictation Patient is doing overall better. Detailed Summary Endocrine: no complaints Exam/Review of Systems Exam Vitals Vital Signs Date Temp Pulse Resp B/P (MAP) Pulse Ox O2 O2 Flow FiO2 Time Delivery Rate 06/16/18 78 18 88/50 (63) 98 Room Air 08:41 06/16/18 98.6 07:48 Intake and Output 06/15/18 06/15/18 06/16/18 1515:00 23:00 07:00 IntakeIntake Total 830 ml 400 ml OutputOutput Total 3200 ml BalanceBalance -2370 ml 400 ml Constitutional: alert, oriented Cardiovascular: regular rate and rhythm, nl pulses Results Result Diagram: 06/15/18 0433 06/16/18 0429 Results 24hrs Laboratory Tests Test 06/16/18 04:29 Sodium Level 141 Potassium Level 4.8 Chloride Level 95 L Carbon Dioxide Level 30 Anion Gap 16 H Blood Urea Nitrogen 29 #H Creatinine 6.54 #H Est Glomerular Filtrat Rate mL/min 7 L Glucose Level 122 Calcium Level 10.6 H Phosphorus Level 7.2 H Magnesium Level 2.8 H Total Bilirubin 0.2 Direct Bilirubin 0.00 Indirect Bilirubin 0.2 Aspartate Amino Transf (AST/SGOT) 29 Alanine Aminotransferase (ALT/SGPT) 19 Alkaline Phosphatase 57 Total Protein 9.3 H Albumin 6.0 H Globulin 3.30 H Albumin/Globulin Ratio 1.81 Medications Medication Current Medications Linezolid 300 ml @ 300 mls/hr Q12 IVPB Last administered on 06/16/18at 08:43; Admin Dose 300 MLS/HR; Start 06/13/18 at 09:00 Acetaminophen (Tylenol Tab) 650 mg Q6H PRN PO MILD PAIN(1-3)OR ELEVATED TEMP; Start 06/13/18 at 02:00 Naproxen (Naprosyn) 500 mg BID PRN PO PAIN AND/OR INFLAMMATION; Start 06/13/18 at 02:00 Sevelamer Carbonate (Renvela) 800 mg WITH MEALS PO Last administered on 06/16/18 13:31; Admin Dose 800 MG; Start 06/13/18 at 08:00 Zolpidem Tartrate (Ambien) 10 mg QHS PRN PO INSOMNIA; Start 06/13/18 at 02:00 Morphine Sulfate (morphine) 2 mg Q4H PRN IV SEVERE PAIN LEVEL 7-10 Last administered on 06/16/18 07:35; Admin Dose 2 MG; Start 06/13/18 at 05:30 Diphenhydramine HCl (Benadryl) 25 mg Q6H PRN IV ITCHING Last administered on 06/16/18 09:01; Admin Dose 25 MG; Start 06/13/18 at 05:30 Albumin Human 100 ml @ 100 mls/hr WITH DIALYSIS PRN IV SBP <90 DURING DIALYSIS Last administered on 06/15/18 21:47; Admin Dose 100 MLS/HR; Start 06/13/18 at 15:30 Heparin Sodium (Porcine) (Heparin (1000 Units/ml)) 3,200 unit AFTER DIALYSIS CATHETER Last administered on 06/16/18 00:01; Admin Dose 3,200 UNIT; Start 06/13/18 at 16:30 Diphenhydramine HCl (Benadryl) 50 mg Q6H PRN IV itching Last administered on 06/15/18 19:36; Admin Dose 50 MG; Start 06/13/18 at 18:30 Piperacillin Sod/ Tazobactam Sod 50 ml @ 100 mls/hr Q8 IVPB Last administered on 06/16/18 13:32; Admin Dose 100 MLS/HR; Start 06/13/18 at 23:00 Ondansetron HCl (Zofran Inj) 4 mg Q4H PRN IV NAUSEA AND/OR VOMITING Last administered on 06/14/18 13:33; Admin Dose 4 MG; Start 06/14/18 at 13:30 Calcium Carbonate (Oyster Shell Calcium) 1.25 gm TID PO Last administered on 06/15/18at 23:20; Admin Dose 1.25 GM; Start 06/15/18 at 21:00 Calcitriol (Rocaltrol) 0.25 mcg QHS PO Last administered on 06/15/18at 23:20; Admin Dose 0.25 MCG; Start 06/15/18 at 21:00 ESEQUIEL NAPOLES MD Jun 16, 2018 13:42
--- NOTE | 2018-06-16 14:09 | PN ---
Date/Time of Note Date/Time of Note DATE: 06/16/18 TIME: 14:05 Assessment/Plan VTE Prophylaxis Risk score (from Ns)>0 risk: 3 SCD applied (from Ns): Yes Pharmacological prophylaxis: heparin Lines/Catheters IV Catheter Type (from Nrsg): Central Line Central line still needed: Yes Assessment/Plan Hospital Course Borderline blood pressure, no fever, patient complains of itching, continued on Zyvox and Zosyn for possible Port-A-Cath infection. Assessment/Plan -Possible line sepsis, follow-up on blood cultures from the catheter, continue broad-spectrum antibiotics. Dr. Arora is following in infection disease consultation. -Hemodialysis dependent end-stage renal disease. Dr. Omalley is following in nephrology consultation. -History of hyperparathyroidism, status post subtotal parathyroidectomy of the right superior and inferior glands, partial left inferior gland in June 2016. Status post left upper and lower parathyroidectomy and partial left thyroid lobectomy in November [address] Morales, ENT. Dr. De La Fuente is following in endocrinology consultation. -Left chest hemodialysis catheter present on admission, discontinued. -Left upper extremity AV fistula nonfunctioning, Dr. Francisco is following in vascular surgery consultation. -Status post right chest Perez catheter placement Further recommendations based on clinical course. Plan of care discussed with Dr. Turner. Result Diagram: 06/15/18 0433 06/16/18 0429 Results 24hrs Laboratory Tests Test 06/16/18 04:29 Sodium Level 141 Potassium Level 4.8 Chloride Level 95 L Carbon Dioxide Level 30 Anion Gap 16 H Blood Urea Nitrogen 29 #H Creatinine 6.54 #H Est Glomerular Filtrat Rate mL/min 7 L Glucose Level 122 Calcium Level 10.6 H Phosphorus Level 7.2 H Magnesium Level 2.8 H Total Bilirubin 0.2 Direct Bilirubin 0.00 Indirect Bilirubin 0.2 Aspartate Amino Transf (AST/SGOT) 29 Alanine Aminotransferase (ALT/SGPT) 19 Alkaline Phosphatase 57 Total Protein 9.3 H Albumin 6.0 H Globulin 3.30 H Albumin/Globulin Ratio 1.81 Exam/Review of Systems Exam Vitals Vital Signs Date Temp Pulse Resp B/P (MAP) Pulse Ox O2 O2 Flow FiO2 Time Delivery Rate 06/16/18 78 18 88/50 (63) 98 Room Air 08:41 06/16/18 98.6 07:48 Intake and Output 06/15/18 06/15/18 06/16/18 1515:00 23:00 07:00 IntakeIntake Total 830 ml 400 ml OutputOutput Total 3200 ml BalanceBalance -2370 ml 400 ml Exam Constitutional: alert, oriented Respiratory: clear to auscultation Cardiovascular: nl pulses Gastrointestinal: soft, non-tender Extremities: normal pulses, other (Left upper extremity AV fistula no bruit no thrill) 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: nl mental status Right chest hemodialysis catheter Results Results 24hrs Laboratory Tests Test 06/16/18 04:29 Sodium Level 141 Potassium Level 4.8 Chloride Level 95 L Carbon Dioxide Level 30 Anion Gap 16 H Blood Urea Nitrogen 29 #H Creatinine 6.54 #H Est Glomerular Filtrat Rate mL/min 7 L Glucose Level 122 Calcium Level 10.6 H Phosphorus Level 7.2 H Magnesium Level 2.8 H Total Bilirubin 0.2 Direct Bilirubin 0.00 Indirect Bilirubin 0.2 Aspartate Amino Transf (AST/SGOT) 29 Alanine Aminotransferase (ALT/SGPT) 19 Alkaline Phosphatase 57 Total Protein 9.3 H Albumin 6.0 H Globulin 3.30 H Albumin/Globulin Ratio 1.81 Medications Medication Current Medications Linezolid 300 ml @ 300 mls/hr Q12 IVPB Last administered on 06/16/18at 08:43; Admin Dose 300 MLS/HR; Start 06/13/18 at 09:00 Acetaminophen (Tylenol Tab) 650 mg Q6H PRN PO MILD PAIN(1-3)OR ELEVATED TEMP; Start 06/13/18 at 02:00 Naproxen (Naprosyn) 500 mg BID PRN PO PAIN AND/OR INFLAMMATION; Start 06/13/18 at 02:00 Sevelamer Carbonate (Renvela) 800 mg WITH MEALS PO Last administered on 06/16/18at 13:31; Admin Dose 800 MG; Start 06/13/18 at 08:00 Zolpidem Tartrate (Ambien) 10 mg QHS PRN PO INSOMNIA; Start 06/13/18 at 02:00 Morphine Sulfate (morphine) 2 mg Q4H PRN IV SEVERE PAIN LEVEL 7-10 Last administered on 06/16/18at 13:49; Admin Dose 2 MG; Start 06/13/18 at 05:30 Diphenhydramine HCl (Benadryl) 25 mg Q6H PRN IV ITCHING Last administered on 06/16/18 09:01; Admin Dose 25 MG; Start 06/13/18 at 05:30 Albumin Human 100 ml @ 100 mls/hr WITH DIALYSIS PRN IV SBP <90 DURING DIALYSIS Last administered on 06/15/18 21:47; Admin Dose 100 MLS/HR; Start 06/13/18 at 15:30 Heparin Sodium (Porcine) (Heparin (1000 Units/ml)) 3,200 unit AFTER DIALYSIS CATHETER Last administered on 06/16/18 00:01; Admin Dose 3,200 UNIT; Start 06/13/18 at 16:30 Diphenhydramine HCl (Benadryl) 50 mg Q6H PRN IV itching Last administered on 06/15/18 19:36; Admin Dose 50 MG; Start 06/13/18 at 18:30 Piperacillin Sod/ Tazobactam Sod 50 ml @ 100 mls/hr Q8 IVPB Last administered on 06/16/18 13:32; Admin Dose 100 MLS/HR; Start 06/13/18 at 23:00 Ondansetron HCl (Zofran Inj) 4 mg Q4H PRN IV NAUSEA AND/OR VOMITING Last administered on 06/14/18 13:33; Admin Dose 4 MG; Start 06/14/18 at 13:30 Calcitriol (Rocaltrol) 0.25 mcg QHS PO Last administered on 06/15/18 23:20; Admin Dose 0.25 MCG; Start 06/15/18 at 21:00 Calcium Carbonate (Tums) 500 mg PC MEALS PO ; Start 06/16/18 at 19:00 ERICK ROBERTSON Jun 16, 2018 14:09
--- NOTE | 2018-06-16 15:15 | CONS ---
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 (base on the presence of purulence at the site) - N&E, MRCP in 07/2017 was negative for cholelithiasis or cholecystitis - chills during the dialysis, subjective fever and anorexia are concerning for bloodstream infections - h/o placement and removal of HD catheters, according to Pt, she has had 9 episodes of HD catheter site/catheter infection - h/o creation of AVF in [facility] in 2016, non-functional and not used - primary hyperparathyroidism - h/o subtotal parathyroidectomy of R superior and inferior glands and partial L inferior gland in 06/2016 - h/o complete parathyroidectomy and partial L thyroid lobectomy in 11/2016 - 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 Her last cycle was about 3 weeks ago - allergy to vancomycin (pruritus) Recommendations: - Pending results: blood cultures (peripheral) from 06/12/2018 (NGTD), wound culture done by Dr. Leone from pt's HD catheter 06/13/18 (NGTD); Blood cultures via HD catheter were ordered and not done - Continue empiric linezolid (06/12/2018-) and renally dosed pip/tazo (06/13/2018- ). Will adjust her antibiotics according to the results of her cultures; plts 149 yesterday. - Will monitor CBC while Pt's on linezolid, if Pt develops anemia and/or thrombocytopenia, will change linezolid to another agent Management d/w patient, BRIANA Rios and with Dr. Herrera Consultation Date/Type/Reason Admit Date/Time Jun 13, 2018 at 00:07 Initial Consult Date 06/14/18 Type of Consult Infectious Disease Requesting Provider: ERICK ROBERTSON Date/Time of Note DATE: 06/16/18 TIME: 15:12 24 HR Interval Summary Free Text/Dictation C/o same R abdominal pain that worsens at night rating 8/10. Recently medicated for pain which is tolerable. No n/v/d. No acute issues per d/w nursing. Exam/Review of Systems Exam Vitals Vital Signs Date Temp Pulse Resp B/P (MAP) Pulse Ox O2 O2 Flow FiO2 Time Delivery Rate 06/16/18 80 18 88/47 (61) 99 Room Air 15:00 06/16/18 98.6 14:05 Intake and Output 06/15/18 06/15/18 06/16/18 1515:00 23:00 07:00 IntakeIntake Total 830 ml 400 ml OutputOutput Total 3200 ml BalanceBalance -2370 ml 400 ml Constitutional: alert, oriented, well developed Psych: no complaints, nl mood/affect Head: normocephalic, atraumatic Eyes: nl conjunctiva, nl lids, nl sclera ENMT: nl external ears & nose, nl lips & teeth, nl nasal mucosa & septum, muco sa pink and moist Neck: supple Respiratory: clear to auscultation, normal air movement Cardiovascular: regular rate and rhythm, nl pulses, other (LUE AVF with no thrill) Gastrointestinal: soft, tender (RUQ/RLQ mild TTP) Musculoskeletal: nl extremities to inspection Extremities: normal pulses; No edema 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: nl mental status, nl speech, nl strength Skin: nl turgor, other (R chest wall HD catheter intact with no overt signs of infection; few tattoos including a dolphin on the R abdomen) Results Result Diagram: 06/15/18 0433 06/16/18 0429 Results 24hrs Laboratory Tests Test 06/16/18 04:29 Sodium Level 141 Potassium Level 4.8 Chloride Level 95 L Carbon Dioxide Level 30 Anion Gap 16 H Blood Urea Nitrogen 29 #H Creatinine 6.54 #H Est Glomerular Filtrat Rate mL/min 7 L Glucose Level 122 Calcium Level 10.6 H Phosphorus Level 7.2 H Magnesium Level 2.8 H Total Bilirubin 0.2 Direct Bilirubin 0.00 Indirect Bilirubin 0.2 Aspartate Amino Transf (AST/SGOT) 29 Alanine Aminotransferase (ALT/SGPT) 19 Alkaline Phosphatase 57 Total Protein 9.3 H Albumin 6.0 H Globulin 3.30 H Albumin/Globulin Ratio 1.81 Medications Medication Current Medications Linezolid 300 ml @ 300 mls/hr Q12 IVPB Last administered on 06/16/18at 08:43; Admin Dose 300 MLS/HR; Start 06/13/18 at 09:00 Acetaminophen (Tylenol Tab) 650 mg Q6H PRN PO MILD PAIN(1-3)OR ELEVATED TEMP; Start 06/13/18 at 02:00 Naproxen (Naprosyn) 500 mg BID PRN PO PAIN AND/OR INFLAMMATION; Start 06/13/18 at 02:00 Sevelamer Carbonate (Renvela) 800 mg WITH MEALS PO Last administered on 06/16/18 13:31; Admin Dose 800 MG; Start 06/13/18 at 08:00 Zolpidem Tartrate (Ambien) 10 mg QHS PRN PO INSOMNIA; Start 06/13/18 at 02:00 Morphine Sulfate (morphine) 2 mg Q4H PRN IV SEVERE PAIN LEVEL 7-10 Last administered on 06/16/18 13:49; Admin Dose 2 MG; Start 06/13/18 at 05:30 Diphenhydramine HCl (Benadryl) 25 mg Q6H PRN IV ITCHING Last administered on 06/16/18 09:01; Admin Dose 25 MG; Start 06/13/18 at 05:30 Albumin Human 100 ml @ 100 mls/hr WITH DIALYSIS PRN IV SBP <90 DURING DIALYSIS Last administered on 06/15/18 21:47; Admin Dose 100 MLS/HR; Start 06/13/18 at 15:30 Heparin Sodium (Porcine) (Heparin (1000 Units/ml)) 3,200 unit AFTER DIALYSIS CATHETER Last administered on 06/16/18 00:01; Admin Dose 3,200 UNIT; Start 06/13/18 at 16:30 Piperacillin Sod/ Tazobactam Sod 50 ml @ 100 mls/hr Q8 IVPB Last administered on 06/16/18 13:32; Admin Dose 100 MLS/HR; Start 06/13/18 at 23:00 Ondansetron HCl (Zofran Inj) 4 mg Q4H PRN IV NAUSEA AND/OR VOMITING Last administered on 06/14/18 13:33; Admin Dose 4 MG; Start 06/14/18 at 13:30 Calcitriol (Rocaltrol) 0.25 mcg QHS PO Last administered on 06/15/18 23:20; Admin Dose 0.25 MCG; Start 06/15/18 at 21:00 Calcium Carbonate (Tums) 500 mg PC MEALS PO ; Start 06/16/18 at 19:00 EDIE BUENO NP Jun 16, 2018 15:15
[2018-06-16] MEDS: CALCIUM CARBONATE 500 MG CHEW TAB PO SCH ×2 (18:38→20:53)
--- NOTE | 2018-06-16 21:18 | CONS ---
Assessment/Plan Assessment/Plan Assessment/Plan 32 yo Female with 1) Possible Catheter related infection, Exit site infection, No bacteremia so far. 2) Non Functioning LUE AV 3) ESRD on HD 4) Hypercalemia- stable 5) MBD of CKD HD tomorrow MWF Schedule Possible OR tomorrow S/p New PC Consultation Date/Type/Reason Admit Date/Time Jun 13, 2018 at 00:07 Type of Consult Nephrology Date/Time of Note DATE: 06/16/18 TIME: 21:16 Hx of Present Illness No surgery today HD yesterday No fever Constitutional: No requiring O2 Exam/Review of Systems Vital Signs Vitals Vital Signs Date Temp Pulse Resp B/P (MAP) Pulse Ox O2 O2 Flow FiO2 Time Delivery Rate 06/16/18 98.4 70 18 88/45 (59) 99 19:39 06/16/18 Room Air 15:00 Intake and Output 06/15/18 06/15/18 06/16/18 1515:00 23:00 07:00 IntakeIntake Total 830 ml 400 ml OutputOutput Total 3200 ml BalanceBalance -2370 ml 400 ml Labs Result Diagram: 06/15/18 0433 06/16/18 0429 Results 24hrs Laboratory Tests Test 06/16/18 04:29 Sodium Level 141 Potassium Level 4.8 Chloride Level 95 L Carbon Dioxide Level 30 Anion Gap 16 H Blood Urea Nitrogen 29 #H Creatinine 6.54 #H Est Glomerular Filtrat Rate mL/min 7 L Glucose Level 122 Calcium Level 10.6 H Phosphorus Level 7.2 H Magnesium Level 2.8 H Total Bilirubin 0.2 Direct Bilirubin 0.00 Indirect Bilirubin 0.2 Aspartate Amino Transf (AST/SGOT) 29 Alanine Aminotransferase (ALT/SGPT) 19 Alkaline Phosphatase 57 Total Protein 9.3 H Albumin 6.0 H Globulin 3.30 H Albumin/Globulin Ratio 1.81 Medications Medications Current Medications Linezolid 300 ml @ 300 mls/hr Q12 IVPB Last administered on 06/16/18at 20:53; Admin Dose 300 MLS/HR; Start 06/13/18 at 09:00 Acetaminophen (Tylenol Tab) 650 mg Q6H PRN PO MILD PAIN(1-3)OR ELEVATED TEMP; Start 06/13/18 at 02:00 Naproxen (Naprosyn) 500 mg BID PRN PO PAIN AND/OR INFLAMMATION; Start 06/13/18 at 02:00 Sevelamer Carbonate (Renvela) 800 mg WITH MEALS PO Last administered on 06/16/18 18:10; Admin Dose 800 MG; Start 06/13/18 at 08:00 Zolpidem Tartrate (Ambien) 10 mg QHS PRN PO INSOMNIA; Start 06/13/18 at 02:00 Morphine Sulfate (morphine) 2 mg Q4H PRN IV SEVERE PAIN LEVEL 7-10 Last administered on 06/16/18 18:38; Admin Dose 2 MG; Start 06/13/18 at 05:30 Diphenhydramine HCl (Benadryl) 25 mg Q6H PRN IV ITCHING Last administered on 06/16/18 15:28; Admin Dose 25 MG; Start 06/13/18 at 05:30 Albumin Human 100 ml @ 100 mls/hr WITH DIALYSIS PRN IV SBP <90 DURING DIALYSIS Last administered on 06/15/18 21:47; Admin Dose 100 MLS/HR; Start 06/13/18 at 15:30 Heparin Sodium (Porcine) (Heparin (1000 Units/ml)) 3,200 unit AFTER DIALYSIS CATHETER Last administered on 06/16/18 00:01; Admin Dose 3,200 UNIT; Start 06/13/18 at 16:30 Piperacillin Sod/ Tazobactam Sod 50 ml @ 100 mls/hr Q8 IVPB Last administered on 06/16/18 13:32; Admin Dose 100 MLS/HR; Start 06/13/18 at 23:00 Ondansetron HCl (Zofran Inj) 4 mg Q4H PRN IV NAUSEA AND/OR VOMITING Last administered on 06/14/18 13:33; Admin Dose 4 MG; Start 06/14/18 at 13:30 Calcitriol (Rocaltrol) 0.25 mcg QHS PO Last administered on 06/15/18 23:20; Admin Dose 0.25 MCG; Start 06/15/18 at 21:00 Calcium Carbonate (Tums) 500 mg PC MEALS PO Last administered on 06/16/18 20:53; Admin Dose 500 MG; Start 06/16/18 at 19:00 JUANJO TATUM MD Jun 16, 2018 21:18
[2018-06-16] MEDS: CALCITRIOL 0.25 MCG CAP PO SCH (21:36)
[2018-06-17] VITALS (18 sets, daily range): BP systolic 86–129; BP diastolic 41–93; PULSE 65–119; RESP 16–20
[2018-06-17] MEDS: DIPHENHYDRAMINE 50 MG INJ IV PRN ×5 (02:50→23:29)
[2018-06-17] MEDS: morphine 2 MG INJ IV PRN ×4 (02:50→21:24)
[2018-06-17] MEDS: PIPER-TAZO 2.25 GM (PMX) 50 ML IVPB SCH ×3 (05:13→21:04)
--- NOTE | 2018-06-17 06:40 | CONS ---
Assessment/Plan Assessment/Plan Assessment/Plan 32 yo Female with 1) Possible Catheter related infection, Exit site infection, No bacteremia so far. 2) Non Functioning LUE AV 3) ESRD on HD 4) Hypercalemia- stable 5) MBD of CKD HD today MWF Schedule Possible OR today S/p New PC Dr Jones will be rounding this weekend. Consultation Date/Type/Reason Admit Date/Time Jun 13, 2018 at 00:07 Type of Consult Nephrology Date/Time of Note DATE: 06/17/18 TIME: 06:39 Hx of Present Illness Pending HD and Possible angiogram NPO Constitutional: No requiring O2 Exam/Review of Systems Vital Signs Vitals Vital Signs Date Temp Pulse Resp B/P (MAP) Pulse Ox O2 O2 Flow FiO2 Time Delivery Rate 06/17/18 97.9 70 20 95/52 (66) 91 01:58 06/16/18 Room Air 15:00 Intake and Output 06/16/18 06/16/18 06/17/18 1515:00 23:00 07:00 IntakeIntake Total 710 ml 1070 ml BalanceBalance 710 ml 1070 ml Exam Constitutional: No distress ENMT: mucosa pink and moist Neck: No jvd Respiratory: clear to auscultation; No labored breathing Cardiovascular: edema Musculoskeletal: nl extremities to inspection 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, nl mental status; No lethargic Labs Result Diagram: 06/17/1812 06/16/18 0429 Results 24hrs Laboratory Tests Test 06/17/18 05:12 White Blood Count 4.2 L Red Blood Count 3.27 L Hemoglobin 10.9 L Hematocrit 33.3 L Mean Corpuscular Volume 101.8 H Mean Corpuscular Hemoglobin 33.3 H Mean Corpuscular Hemoglobin Concent 32.7 Red Cell Distribution Width 13.3 Platelet Count 113 #L Mean Platelet Volume 11.6 H Immature Granulocytes % 0.200 Neutrophils % 55.5 Lymphocytes % 27.1 Monocytes % 8.8 Eosinophils % 7.4 H Basophils % 1.0 Nucleated Red Blood Cells % 0.0 Immature Granulocytes # 0.010 Neutrophils # 2.3 Lymphocytes # 1.1 Monocytes # 0.4 Eosinophils # 0.3 Basophils # 0.0 Nucleated Red Blood Cells # 0.0 Medications Medications Current Medications Linezolid 300 ml @ 300 mls/hr Q12 IVPB Last administered on 06/16/18 20:53; Admin Dose 300 MLS/HR; Start 06/13/18 at 09:00 Acetaminophen (Tylenol Tab) 650 mg Q6H PRN PO MILD PAIN(1-3)OR ELEVATED TEMP; Start 06/13/18 at 02:00 Naproxen (Naprosyn) 500 mg BID PRN PO PAIN AND/OR INFLAMMATION; Start 06/13/18 at 02:00 Sevelamer Carbonate (Renvela) 800 mg WITH MEALS PO Last administered on 06/16/18 18:10; Admin Dose 800 MG; Start 06/13/18 at 08:00 Zolpidem Tartrate (Ambien) 10 mg QHS PRN PO INSOMNIA; Start 06/13/18 at 02:00 Morphine Sulfate (morphine) 2 mg Q4H PRN IV SEVERE PAIN LEVEL 7-10 Last administered on 06/17/18 02:50; Admin Dose 2 MG; Start 06/13/18 at 05:30 Diphenhydramine HCl (Benadryl) 25 mg Q6H PRN IV ITCHING Last administered on 06/17/18 02:50; Admin Dose 25 MG; Start 06/13/18 at 05:30 Albumin Human 100 ml @ 100 mls/hr WITH DIALYSIS PRN IV SBP <90 DURING DIALYSIS Last administered on 06/15/18 21:47; Admin Dose 100 MLS/HR; Start 06/13/18 at 15:30 Heparin Sodium (Porcine) (Heparin (1000 Units/ml)) 3,200 unit AFTER DIALYSIS CATHETER Last administered on 06/16/18 00:01; Admin Dose 3,200 UNIT; Start 06/13/18 at 16:30 Piperacillin Sod/ Tazobactam Sod 50 ml @ 100 mls/hr Q8 IVPB Last administered on 06/17/18 05:13; Admin Dose 100 MLS/HR; Start 06/13/18 at 23:00 Ondansetron HCl (Zofran Inj) 4 mg Q4H PRN IV NAUSEA AND/OR VOMITING Last administered on 06/14/18 13:33; Admin Dose 4 MG; Start 06/14/18 at 13:30 Calcitriol (Rocaltrol) 0.25 mcg QHS PO Last administered on 06/16/18 21:36; Admin Dose 0.25 MCG; Start 06/15/18 at 21:00 Calcium Carbonate (Tums) 500 mg PC MEALS PO Last administered on 06/16/18at 20:53; Admin Dose 500 MG; Start 06/16/18 at 19:00 JUANJO TATUM MD Jun 17, 2018 06:40
[2018-06-17] MEDS: SEVELAMER CARBONATE 800 MG TABLET PO SCH ×3 (08:45→17:18)
[2018-06-17] MEDS: LINEZOLID 600 MG/D5W (PMX) 300 ML IVPB SCH (08:52)
[2018-06-17] MEDS: ONDANSETRON 4 MG INJ IV PRN (10:59)
[2018-06-17] MEDS: CALCIUM CARBONATE 500 MG CHEW TAB PO SCH ×2 (12:07→19:00)
--- NOTE | 2018-06-17 14:18 | CONS ---
Assessment/Plan Assessment/Plan Problems: (1) Postprocedural hypoparathyroidism Status: Chronic Comment: She is now you calcemic on her current regimen using a much lower dose calcitriol with oral calcium supplementation. I would continue her on the present regimen. Please note the elevated total protein levels. There is not data in the chart explaining the identified note from [facility]. The patient is not able to elaborate with details other than having received chemotherapy (2) Secondary amenorrhea Status: Chronic Comment: This is been present since 2017 and the onset of female dialysis. 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 Consultation Date/Type/Reason Admit Date/Time Jun 13, 2018 at 00:07 Initial Consult Date 06/14/18 Type of Consult Endocrine Reason for Consultation Hypercalcemia; history of tertiary hyperparathyroidism; status post parathyroidectomy in 2 stages; postoperative hypoparathyroidism; history of hungry bone syndrome resolved; end-stage renal disease; lymphoproliferative disorder-type unknown Requesting Provider: ERICK ROBERTSON Date/Time of Note DATE: 06/17/18 TIME: 14:10 24 HR Interval Summary Free Text/Dictation Patient reports she is doing well at this time. Constitutional: no complaints Detailed Summary Endocrine: no complaints Exam/Review of Systems Exam Vitals Vital Signs Date Temp Pulse Resp B/P (MAP) Pulse Ox O2 O2 Flow FiO2 Time Delivery Rate 06/17/18 86 14:00 06/17/18 16 90/55 (67) 100 Room Air 12:15 06/17/18 97.8 07:41 Intake and Output 06/16/18 06/16/18 06/17/18 1515:00 23:00 07:00 IntakeIntake Total 710 ml 1070 ml 650 ml BalanceBalance 710 ml 1070 ml 650 ml Constitutional: alert, oriented Neck: supple, non-tender, other (Midline surgical scar) Cardiovascular: regular rate and rhythm, nl pulses Results Result Diagram: 06/17/18 0512 06/17/18 0512 Results 24hrs Laboratory Tests Test 06/17/18 05:12 White Blood Count 4.2 L Red Blood Count 3.27 L Hemoglobin 10.9 L Hematocrit 33.3 L Mean Corpuscular Volume 101.8 H Mean Corpuscular Hemoglobin 33.3 H Mean Corpuscular Hemoglobin Concent 32.7 Red Cell Distribution Width 13.3 Platelet Count 113 #L Mean Platelet Volume 11.6 H Immature Granulocytes % 0.200 Neutrophils % 55.5 Lymphocytes % 27.1 Monocytes % 8.8 Eosinophils % 7.4 H Basophils % 1.0 Nucleated Red Blood Cells % 0.0 Immature Granulocytes # 0.010 Neutrophils # 2.3 Lymphocytes # 1.1 Monocytes # 0.4 Eosinophils # 0.3 Basophils # 0.0 Nucleated Red Blood Cells # 0.0 Sodium Level 140 Potassium Level 5.0 Chloride Level 97 Carbon Dioxide Level 26 Anion Gap 17 H Blood Urea Nitrogen 50 H Creatinine 9.41 #H Est Glomerular Filtrat Rate mL/min 5 L Glucose Level 79 # Calcium Level 10.6 H Ionized Calcium (Measured) 1.3 Phosphorus Level 8.7 H Medications Medication Current Medications Linezolid 300 ml @ 300 mls/hr Q12 IVPB Last administered on 06/17/18 08:52; Admin Dose 300 MLS/HR; Start 06/13/18 at 09:00 Acetaminophen (Tylenol Tab) 650 mg Q6H PRN PO MILD PAIN(1-3)OR ELEVATED TEMP; Start 06/13/18 at 02:00 Naproxen (Naprosyn) 500 mg BID PRN PO PAIN AND/OR INFLAMMATION Last a dministered on 06/17/18 11:12; Admin Dose 500 MG; Start 06/13/18 at 02:00 Sevelamer Carbonate (Renvela) 800 mg WITH MEALS PO Last administered on 06/17/18 08:45; Admin Dose 800 MG; Start 06/13/18 at 08:00 Zolpidem Tartrate (Ambien) 10 mg QHS PRN PO INSOMNIA; Start 06/13/18 at 02:00 Morphine Sulfate (morphine) 2 mg Q4H PRN IV SEVERE PAIN LEVEL 7-10 Last administered on 06/17/18 06:50; Admin Dose 2 MG; Start 06/13/18 at 05:30 Diphenhydramine HCl (Benadryl) 25 mg Q6H PRN IV ITCHING Last administered on 06/17/18 10:59; Admin Dose 25 MG; Start 06/13/18 at 05:30 Albumin Human 100 ml @ 100 mls/hr WITH DIALYSIS PRN IV SBP <90 DURING DIALYSIS Last administered on 06/15/18 21:47; Admin Dose 100 MLS/HR; Start 06/13/18 at 15:30 Heparin Sodium (Porcine) (Heparin (1000 Units/ml)) 3,200 unit AFTER DIALYSIS CATHETER Last administered on 06/16/18 00:01; Admin Dose 3,200 UNIT; Start 06/13/18 at 16:30 Piperacillin Sod/ Tazobactam Sod 50 ml @ 100 mls/hr Q8 IVPB Last administered on 06/17/18 05:13; Admin Dose 100 MLS/HR; Start 06/13/18 at 23:00 Ondansetron HCl (Zofran Inj) 4 mg Q4H PRN IV NAUSEA AND/OR VOMITING Last administered on 06/17/18 10:59; Admin Dose 4 MG; Start 06/14/18 at 13:30 Calcitriol (Rocaltrol) 0.25 mcg QHS PO Last administered on 06/16/18 21:36; Admin Dose 0.25 MCG; Start 06/15/18 at 21:00 Calcium Carbonate (Tums) 500 mg PC MEALS PO Last administered on 06/16/18 20:53; Admin Dose 500 MG; Start 06/16/18 at 19:00 ESEQUIEL NAPOLES MD Jun 17, 2018 14:18
--- NOTE | 2018-06-17 15:04 | CONS ---
[facility] HCIS Consult Follow-up Patient Name: Maria Luisa Lakhani Unit Number: [id number] Date of : 1985 Patient Status: Admitted Inpatient Attending Doctor: Pawan Turner MD Edit: GINGER LEONE M.D. 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 (base on the presence of purulence at the site) - N&E, MRCP in 07/2017 was negative for cholelithiasis or cholecystitis - chills during the dialysis, subjective fever and anorexia are concerning for bloodstream infections - h/o placement and removal of HD catheters, according to Pt, she has had 9 episodes of HD catheter site/catheter infection - h/o creation of AVF in [facility] in 2016, non-functional and not used - thrombocytopenia likely d/t linezolid - primary hyperparathyroidism - h/o subtotal parathyroidectomy of R superior and inferior glands and partial L inferior gland in 06/2016 - h/o complete parathyroidectomy and partial L thyroid lobectomy in 11/2016 - 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 Her last cycle was about 3 weeks ago - allergy to vancomycin (pruritus) Recommendations: - DC linezolid (06/12/2018-) - Complete 7 days course of renally dosed pip/tazo (06/13/2018-06/20/2018) - Pending results: final blood cultures (peripheral) from 06/12/2018 (NGTD) Management d/w patient, BRIANA Lugo, and with Dr. Leone Consultation Date/Type/Reason Admit Date/Time Jun 13, 2018 at 00:07 Initial Consult Date 06/14/18 Type of Consult Infectious Disease Requesting Provider: ERICK ROBERTSON Date/Time of Note DATE: 06/17/18 TIME: 15:04 24 HR Interval Summary Free Text/Dictation Plt trending down. All cultures remain negative thus far. Pt just completed HD with net 1.9L removed. C/o chronic R sided abdominal pain rating 9/10 which pt attributes to a "stone". Denies n/v/d. Pt states pain medication is effective. No acute issues per d/w nursing. Exam/Review of Systems Exam Vitals Vital Signs Date Temp Pulse Resp B/P (MAP) Pulse Ox O2 O2 Flow FiO2 Time Delivery Rate 06/17/18 97.7 100 17 98/67 (77) 97 14:55 06/17/18 Room Air 12:15 Intake and Output 06/16/18 06/16/18 06/17/18 1515:00 23:00 07:00 IntakeIntake Total 710 ml 1070 ml 650 ml BalanceBalance 710 ml 1070 ml 650 ml Exam Constitutional: alert, oriented, well developed, other (HD just completed) Psych: no complaints, nl mood/affect Head: normocephalic, atraumatic Eyes: nl conjunctiva, nl lids, nl sclera ENMT: nl external ears & nose, nl lips & teeth, nl nasal mucosa & septum, mucosa pink and moist Neck: supple Respiratory: clear to auscultation, normal air movement Cardiovascular: regular rate and rhythm, nl pulses, other (LUE AVF with no thrill) Gastrointestinal: soft, tender (RUQ/RLQ mild TTP) Musculoskeletal: nl extremities to inspection Extremities: normal pulses; No edema 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: nl mental status, nl speech, nl strength Skin: nl turgor, other (R chest wall HD catheter intact with no overt signs of infection and pt is just being disconnected from HD; few tattoos including a dolphin on the R abdomen) Results Result Diagram: 06/17/1851106/17/1812 Results 24hrs Laboratory Tests Test 06/17/18 05:08 06/17/18 05:12 Serum HCG, Qualitative NEGATIVE White Blood Count 4.2 L Red Blood Count 3.27 L Hemoglobin 10.9 L Hematocrit 33.3 L Mean Corpuscular Volume 101.8 H Mean Corpuscular Hemoglobin 33.3 H Mean Corpuscular Hemoglobin Concent 32.7 Red Cell Distribution Width 13.3 Platelet Count 113 #L Mean Platelet Volume 11.6 H Immature Granulocytes % 0.200 Neutrophils % 55.5 Lymphocytes % 27.1 Monocytes % 8.8 Eosinophils % 7.4 H Basophils % 1.0 Nucleated Red Blood Cells % 0.0 Immature Granulocytes # 0.010 Neutrophils # 2.3 Lymphocytes # 1.1 Monocytes # 0.4 Eosinophils # 0.3 Basophils # 0.0 Nucleated Red Blood Cells # 0.0 Sodium Level 140 Potassium Level 5.0 Chloride Level 97 Carbon Dioxide Level 26 Anion Gap 17 H Blood Urea Nitrogen 50 H Creatinine 9.41 #H Est Glomerular Filtrat Rate mL/min 5 L Glucose Level 79 # Calcium Level 10.6 H Ionized Calcium (Measured) 1.3 Phosphorus Level 8.7 H Medications Medication Current Medications Linezolid 300 ml @ 300 mls/hr Q12 IVPB Last administered on 06/17/18 08:52; Admin Dose 300 MLS/HR; Start 06/13/18 at 09:00 Acetaminophen (Tylenol Tab) 650 mg Q6H PRN PO MILD PAIN(1-3)OR ELEVATED TEMP; Start 06/13/18 at 02:00 Naproxen (Naprosyn) 500 mg BID PRN PO PAIN AND/OR INFLAMMATION Last administered on 06/17/18 11:12; Admin Dose 500 MG; Start 06/13/18 at 02:00 Sevelamer Carbonate (Renvela) 800 mg WITH MEALS PO Last administered on 06/17/18 08:45; Admin Dose 800 MG; Start 06/13/18 at 08:00 Zolpidem Tartrate (Ambien) 10 mg QHS PRN PO INSOMNIA; Start 06/13/18 at 02:00 Morphine Sulfate (morphine) 2 mg Q4H PRN IV SEVERE PAIN LEVEL 7-10 Last administered on 06/17/18 06:50; Admin Dose 2 MG; Start 06/13/18 at 05:30 Diphenhydramine HCl (Benadryl) 25 mg Q6H PRN IV ITCHING Last administered on 06/17/18 10:59; Admin Dose 25 MG; Start 06/13/18 at 05:30 Albumin Human 100 ml @ 100 mls/hr WITH DIALYSIS PRN IV SBP <90 DURING DIALYSIS Last administered on 06/15/18 21:47; Admin Dose 100 MLS/HR; Start 06/13/18 at 15:30 Heparin Sodium (Porcine) (Heparin (1000 Units/ml)) 3,200 unit AFTER DIALYSIS CATHETER Last administered on 06/16/18 00:01; Admin Dose 3,200 UNIT; Start 06/13/18 at 16:30 Piperacillin Sod/ Tazobactam Sod 50 ml @ 100 mls/hr Q8 IVPB Last administered on 06/17/18 05:13; Admin Dose 100 MLS/HR; Start 06/13/18 at 23:00 Ondansetron HCl (Zofran Inj) 4 mg Q4H PRN IV NAUSEA AND/OR VOMITING Last administered on 06/17/18 10:59; Admin Dose 4 MG; Start 06/14/18 at 13:30 Calcitriol (Rocaltrol) 0.25 mcg QHS PO Last administered on 06/16/18 21:36; Admin Dose 0.25 MCG; Start 06/15/18 at 21:00 Calcium Carbonate (Tums) 500 mg PC MEALS PO Last administered on 06/16/18 20:53; Admin Dose 500 MG; Start 06/16/18 at 19:00 EDIE BUENO NP Jun 17, 2018 15:04
--- NOTE | 2018-06-17 15:09 | PN ---
Date/Time of Note Date/Time of Note DATE: 06/17/18 TIME: 15:09 Assessment/Plan VTE Prophylaxis Risk score (from Nsg)>0 risk: 2 SCD contraindicated: other Pharmacological prophylaxis: other Pharm contraindication: other Lines/Catheters IV Catheter Type (from Nrsg): Q-cath Assessment/Plan Assessment/Plan -Possible line sepsis, follow-up on blood cultures from the catheter, continue broad-spectrum antibiotics. Dr. Arora is following in infection disease consultation. -Hemodialysis dependent end-stage renal disease. Dr. Omalley is following in nephrology consultation. -History of hyperparathyroidism, status post subtotal parathyroidectomy of the right superior and inferior glands, partial left inferior gland in June 2016. Status post left upper and lower parathyroidectomy and partial left thyroid lobectomy in November [address] Morales, ENT. Dr. De La Fuente is following in endocr inology consultation. -Left chest hemodialysis catheter present on admission, discontinued. -Left upper extremity AV fistula nonfunctioning, Dr. Francisco is following in vascular surgery consultation. -Status post right chest Perez catheter placement Further recommendations based on clinical course. Plan of care discussed with Dr. Turner. Result Diagram: 06/17/18 0512 06/17/18 0512 Results 24hrs Laboratory Tests Test 06/17/18 05:08 06/17/18 05:12 Serum HCG, Qualitative NEGATIVE White Blood Count 4.2 L Red Blood Count 3.27 L Hemoglobin 10.9 L Hematocrit 33.3 L Mean Corpuscular Volume 101.8 H Mean Corpuscular Hemoglobin 33.3 H Mean Corpuscular Hemoglobin Concent 32.7 Red Cell Distribution Width 13.3 Platelet Count 113 #L Mean Platelet Volume 11.6 H Immature Granulocytes % 0.200 Neutrophils % 55.5 Lymphocytes % 27.1 Monocytes % 8.8 Eosinophils % 7.4 H Basophils % 1.0 Nucleated Red Blood Cells % 0.0 Immature Granulocytes # 0.010 Neutrophils # 2.3 Lymphocytes # 1.1 Monocytes # 0.4 Eosinophils # 0.3 Basophils # 0.0 Nucleated Red Blood Cells # 0.0 Sodium Level 140 Potassium Level 5.0 Chloride Level 97 Carbon Dioxide Level 26 Anion Gap 17 H Blood Urea Nitrogen 50 H Creatinine 9.41 #H Est Glomerular Filtrat Rate mL/min 5 L Glucose Level 79 # Calcium Level 10.6 H Ionized Calcium (Measured) 1.3 Phosphorus Level 8.7 H Subjective 24 Hr Interval Summary Free Text/Dictation Having HD now- STABLE Eyes: no complaints ENT: no complaints Cardiovascular: no complaints Gastrointestinal: no complaints Genitourinary: no complaints Musculoskeletal: no complaints Skin: no complaints Neurologic: no complaints Endocrine: no complaints Psychological: nl mood/affect Immunologic: no complaints Exam/Review of Systems Exam Vitals Vital Signs Date Temp Pulse Resp B/P (MAP) Pulse Ox O2 O2 Flow FiO2 Time Delivery Rate 06/17/18 97.7 100 17 98/67 (77) 97 14:55 06/17/18 Room Air 12:15 Intake and Output 06/16/18 06/16/18 06/17/18 1515:00 23:00 07:00 IntakeIntake Total 710 ml 1070 ml 650 ml BalanceBalance 710 ml 1070 ml 650 ml Constitutional: alert, well developed Psych: nl mood/affect Head: normocephalic Eyes: EOMI, nl lids, nl sclera ENMT: nl external ears & nose Neck: non-tender Respiratory: clear to auscultation Cardiovascular: nl pulses, other (s1s2) Gastrointestinal: soft, non-tender Musculoskeletal: muscle weakness Extremities: normal pulses 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: nl mental status, nl speech Lymph: nontender Results Results 24hrs Laboratory Tests Test 06/17/18 05:08 06/17/18 05:12 Serum HCG, Qualitative NEGATIVE White Blood Count 4.2 L Red Blood Count 3.27 L Hemoglobin 10.9 L Hematocrit 33.3 L Mean Corpuscular Volume 101.8 H Mean Corpuscular Hemoglobin 33.3 H Mean Corpuscular Hemoglobin Concent 32.7 Red Cell Distribution Width 13.3 Platelet Count 113 #L Mean Platelet Volume 11.6 H Immature Granulocytes % 0.200 Neutrophils % 55.5 Lymphocytes % 27.1 Monocytes % 8.8 Eosinophils % 7.4 H Basophils % 1.0 Nucleated Red Blood Cells % 0.0 Immature Granulocytes # 0.010 Neutrophils # 2.3 Lymphocytes # 1.1 Monocytes # 0.4 Eosinophils # 0.3 Basophils # 0.0 Nucleated Red Blood Cells # 0.0 Sodium Level 140 Potassium Level 5.0 Chloride Level 97 Carbon Dioxide Level 26 Anion Gap 17 H Blood Urea Nitrogen 50 H Creatinine 9.41 #H Est Glomerular Filtrat Rate mL/min 5 L Glucose Level 79 # Calcium Level 10.6 H Ionized Calcium (Measured) 1.3 Phosphorus Level 8.7 H Medications Medication Current Medications Linezolid 300 ml @ 300 mls/hr Q12 IVPB Last administered on 06/17/18 08:52; Admin Dose 300 MLS/HR; Start 06/13/18 at 09:00 Acetaminophen (Tylenol Tab) 650 mg Q6H PRN PO MILD PAIN(1-3)OR ELEVATED TEMP; Start 06/13/18 at 02:00 Naproxen (Naprosyn) 500 mg BID PRN PO PAIN AND/OR INFLAMMATION Last administered on 06/17/18 11:12; Admin Dose 500 MG; Start 06/13/18 at 02:00 Sevelamer Carbonate (Renvela) 800 mg WITH MEALS PO Last administered on 06/17/18 08:45; Admin Dose 800 MG; Start 06/13/18 at 08:00 Zolpidem Tartrate (Ambien) 10 mg QHS PRN PO INSOMNIA; Start 06/13/18 at 02:00 Morphine Sulfate (morphine) 2 mg Q4H PRN IV SEVERE PAIN LEVEL 7-10 Last administered on 06/17/18 06:50; Admin Dose 2 MG; Start 06/13/18 at 05:30 Diphenhydramine HCl (Benadryl) 25 mg Q6H PRN IV ITCHING Last administered on 06/17/18 10:59; Admin Dose 25 MG; Start 06/13/18 at 05:30 Albumin Human 100 ml @ 100 mls/hr WITH DIALYSIS PRN IV SBP <90 DURING DIALYSIS Last administered on 06/15/18 21:47; Admin Dose 100 MLS/HR; Start 06/13/18 at 15:30 Heparin Sodium (Porcine) (Heparin (1000 Units/ml)) 3,200 unit AFTER DIALYSIS CATHETER Last administered on 06/16/18 00:01; Admin Dose 3,200 UNIT; Start 06/13/18 at 16:30 Piperacillin Sod/ Tazobactam Sod 50 ml @ 100 mls/hr Q8 IVPB Last administered on 06/17/18 05:13; Admin Dose 100 MLS/HR; Start 06/13/18 at 23:00 Ondansetron HCl (Zofran Inj) 4 mg Q4H PRN IV NAUSEA AND/OR VOMITING Last administered on 06/17/18at 10:59; Admin Dose 4 MG; Start 06/14/18 at 13:30 Calcitriol (Rocaltrol) 0.25 mcg QHS PO Last administered on 06/16/18at 21:36; Admin Dose 0.25 MCG; Start 06/15/18 at 21:00 Calcium Carbonate (Tums) 500 mg PC MEALS PO Last administered on 06/16/18at 20:53; Admin Dose 500 MG; Start 06/16/18 at 19:00 EDILMA CASIANO Jun 17, 2018 15:09
[2018-06-17] MEDS: HEPARIN 1000 UNITS/ML 10 ML INJ CATHETER SCH (15:11)
[2018-06-17] MEDS: CALCITRIOL 0.25 MCG CAP PO SCH (21:04)
[2018-06-18 01:27] VITALS: BP 74/41; PULSE 80; RESP 16
[2018-06-18 01:43] VITALS: BP 84/52; PULSE 76; RESP 18
[2018-06-18] MEDS: DIPHENHYDRAMINE 50 MG INJ IV PRN ×4 (05:37→23:36)
[2018-06-18] MEDS: morphine 2 MG INJ IV PRN ×4 (05:37→23:35)
[2018-06-18] MEDS: PIPER-TAZO 2.25 GM (PMX) 50 ML IVPB SCH ×3 (05:40→21:38)
[2018-06-18 08:00] VITALS: BP 74/45; RESP 18
[2018-06-18] MEDS: CALCIUM CARBONATE 500 MG CHEW TAB PO SCH ×3 (08:15→17:31)
[2018-06-18] MEDS: SEVELAMER CARBONATE 800 MG TABLET PO SCH ×3 (08:15→17:31)
--- NOTE | 2018-06-18 10:27 | PN ---
Date/Time of Note Date/Time of Note DATE: 06/18/18 TIME: 10:24 Assessment/Plan VTE Prophylaxis Risk score (from Nsg)>0 risk: 3 SCD applied (from Ns): Yes Pharmacological prophylaxis: other Lines/Catheters IV Catheter Type (from Nrsg): Perez cath Urinary Cath still in place: No Reason Cath still needed: other (indicate) Assessment/Plan Assessment/Plan 1) Possible Catheter related infection, Exit site infection, No bacteremia so far. 2) Non Functioning LUE AV 3) ESRD on HD 4) Hypercalemia- stable 5) MBD of CKD feels swellimg on skull left post /ct ordered had hd yesterday d/w pt Result Diagram: 06/17/1851106/17/18511 Subjective 24 Hr Interval Summary Eyes: no complaints ENT: no complaints Cardiovascular: no complaints Gastrointestinal: no complaints Genitourinary: no complaints Musculoskeletal: no complaints Exam/Review of Systems Exam Vitals Vital Signs Date Temp Pulse Resp B/P (MAP) Pulse Ox O2 O2 Flow FiO2 Time Delivery Rate 06/18/18 76 18 84/52 (63) 98 01:43 06/18/18 98.2 01:27 06/17/18 Room Air 15:32 Intake and Output 06/17/18 06/17/18 06/18/18 1515:00 23:00 07:00 IntakeIntake Total 780 ml 100 ml 570 ml OutputOutput Total 2400 ml BalanceBalance 780 ml -2300 ml 570 ml Constitutional: alert, oriented, frail Psych: no complaints Head: other Eyes: nl conjunctiva ENMT: nl external ears & nose Neck: supple Respiratory: clear to auscultation, normal air movement Cardiovascular: regular rate and rhythm, nl pulses Gastrointestinal: soft, nl liver, spleen Genitourinary - Female: nl adnexae Musculoskeletal: nl extremities to inspection 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, nl mental status Medications Medication Current Medications Acetaminophen (Tylenol Tab) 650 mg Q6H PRN PO MILD PAIN(1-3)OR ELEVATED TEMP; Start 06/13/18 at 02:00 Naproxen (Naprosyn) 500 mg BID PRN PO PAIN AND/OR INFLAMMATION Last administered on 06/17/18at 11:12; Admin Dose 500 MG; Start 06/13/18 at 02:00 Sevelamer Carbonate (Renvela) 800 mg WITH MEALS PO Last administered on 06/18/18 08:15; Admin Dose 800 MG; Start 06/13/18 at 08:00 Zolpidem Tartrate (Ambien) 10 mg QHS PRN PO INSOMNIA; Start 06/13/18 at 02:00 Morphine Sulfate (morphine) 2 mg Q4H PRN IV SEVERE PAIN LEVEL 7-10 Last administered on 06/18/18 09:49; Admin Dose 2 MG; Start 06/13/18 at 05:30 Diphenhydramine HCl (Benadryl) 25 mg Q6H PRN IV ITCHING Last administered on 06/18/18 05:37; Admin Dose 25 MG; Start 06/13/18 at 05:30 Albumin Human 100 ml @ 100 mls/hr WITH DIALYSIS PRN IV SBP <90 DURING DIALYSIS Last administered on 06/15/18 21:47; Admin Dose 100 MLS/HR; Start 06/13/18 at 15:30 Heparin Sodium (Porcine) (Heparin (1000 Units/ml)) 3,200 unit AFTER DIALYSIS CATHETER Last administered on 06/17/18 15:11; Admin Dose 3,200 UNIT; Start 06/13/18 at 16:30 Piperacillin Sod/ Tazobactam Sod 50 ml @ 100 mls/hr Q8 IVPB Last administered on 06/18/18 05:40; Admin Dose 100 MLS/HR; Start 06/13/18 at 23:00; Stop 06/20/18 at 22:59 Ondansetron HCl (Zofran Inj) 4 mg Q4H PRN IV NAUSEA AND/OR VOMITING Last administered on 06/17/18 10:59; Admin Dose 4 MG; Start 06/14/18 at 13:30 Calcitriol (Rocaltrol) 0.25 mcg QHS PO Last administered on 06/17/18 21:04; Admin Dose 0.25 MCG; Start 06/15/18 at 21:00 Calcium Carbonate (Tums) 500 mg PC MEALS PO Last administered on 06/18/18 08 :15; Admin Dose 500 MG; Start 06/16/18 at 19:00 ANNIE SANTOS MD Jun 18, 2018 10:26
--- NOTE | 2018-06-18 12:51 | PN ---
Date/Time of Note Date/Time of Note DATE: 06/18/18 TIME: 12:51 Assessment/Plan VTE Prophylaxis Risk score (from Ns)>0 risk: 1 SCD applied (from [facility] [place] SCD contraindicated: other Pharmacological prophylaxis: LMWH Lines/Catheters IV Catheter Type (from [facility]): [place] Urinary Cath still in place: No Assessment/Plan Hospital Course -Possible line sepsis, follow-up on blood cultures from the catheter, continue broad-spectrum antibiotics. Dr. Arora is following in infection disease consultation. -Hemodialysis dependent end-stage renal disease. Dr. Omalley is following in nephrology consultation. -History of hyperparathyroidism, status post subtotal parathyroidectomy of the right superior and inferior glands, partial left inferior gland in June 2016. Status post left upper and lower parathyroidectomy and partial left thyroid lobectomy in November [address] Morales, ENT. Dr. De La Fuente is following in endocrinology consultation. -Left chest hemodialysis catheter present on admission, discontinued. -Left upper extremity AV fistula nonfunctioning, Dr. Francisco is following in vascular surgery consultation. -Status post right chest Perez catheter placement Result Diagram: 06/17/1851106/17/18 05 Subjective 24 Hr Interval Summary Free Text/Dictation Patient complain of pain in right abdomen and flank Exam/Review of Systems Exam Vitals Vital Signs Date Temp Pulse Resp B/P (MAP) Pulse Ox O2 O2 Flow FiO2 Time Delivery Rate 06/18/18 76 18 84/52 (63) 98 01:43 06/18/18 98.2 01:27 06/17/18 Room Air 15:32 Intake and Output 06/17/18 06/17/18 06/18/18 1515:00 23:00 07:00 IntakeIntake Total 780 ml 100 ml 570 ml OutputOutput Total 2400 ml BalanceBalance 780 ml -2300 ml 570 ml Constitutional: well developed Head: normocephalic, atraumatic Neck: supple Respiratory: diminished breath sounds Cardiovascular: regular rate and rhythm Gastrointestinal: soft, non-tender Extremities: normal pulses Medications Medication Current Medications Acetaminophen (Tylenol Tab) 650 mg Q6H PRN PO MILD PAIN(1-3)OR ELEVATED TEMP; Start 06/13/18 at 02:00 Naproxen (Naprosyn) 500 mg BID PRN PO PAIN AND/OR INFLAMMATION Last administered on 06/17/18 11:12; Admin Dose 500 MG; Start 06/13/18 at 02:00 Sevelamer Carbonate (Renvela) 800 mg WITH MEALS PO Last administered on 06/18/18 08:15; Admin Dose 800 MG; Start 06/13/18 at 08:00 Zolpidem Tartrate (Ambien) 10 mg QHS PRN PO INSOMNIA; Start 06/13/18 at 02:00 Morphine Sulfate (morphine) 2 mg Q4H PRN IV SEVERE PAIN LEVEL 7-10 Last administered on 06/18/18 09:49; Admin Dose 2 MG; Start 06/13/18 at 05:30 Diphenhydramine HCl (Benadryl) 25 mg Q6H PRN IV ITCHING Last administered on 06/18/18 11:37; Admin Dose 25 MG; Start 06/13/18 at 05:30 Albumin Human 100 ml @ 100 mls/hr WITH DIALYSIS PRN IV SBP <90 DURING DIALYSIS Last administered on 06/15/18 21:47; Admin Dose 100 MLS/HR; Start 06/13/18 at 15:30 Heparin Sodium (Porcine) (Heparin (1000 Units/ml)) 3,200 unit AFTER DIALYSIS CATHETER Last administered on 06/17/18 15:11; Admin Dose 3,200 UNIT; Start 06/13/18 at 16:30 Piperacillin Sod/ Tazobactam Sod 50 ml @ 100 mls/hr Q8 IVPB Last administered on 06/18/18 05:40; Admin Dose 100 MLS/HR; Start 06/13/18 at 23:00; Stop 06/20/18 at 22:59 Ondansetron HCl (Zofran Inj) 4 mg Q4H PRN IV NAUSEA AND/OR VOMITING Last admi nistered on 06/17/18 10:59; Admin Dose 4 MG; Start 06/14/18 at 13:30 Calcitriol (Rocaltrol) 0.25 mcg QHS PO Last administered on 06/17/18 21:04; Admin Dose 0.25 MCG; Start 06/15/18 at 21:00 Calcium Carbonate (Tums) 500 mg PC MEALS PO Last administered on 06/18/18 08:15; Admin Dose 500 MG; Start 06/16/18 at 19:00 ANGELY PANGb 23, 2019 12:51
[2018-06-18 14:35] VITALS: BP 80/43; PULSE 83; RESP 16
--- NOTE | 2018-06-18 16:32 | CONS ---
Assessment/Plan Assessment/Plan Problems: (1) Postprocedural hypoparathyroidism Status: Chronic Comment: Calcium levels improved on current regimen. Still a little on the high side. May need to decrease calcium dose to BID Consultation Date/Type/Reason Admit Date/Time Jun 13, 2018 at 00:07 Initial Consult Date 06/14/18 Type of Consult Endocrine Reason for Consultation Calcium disorder Requesting Provider: ERICK ROBERTSON Date/Time of Note DATE: 06/18/18 TIME: 16:28 24 HR Interval Summary Free Text/Dictation No new issues. Exam/Review of Systems Exam Vitals Vital Signs Date Temp Pulse Resp B/P (MAP) Pulse Ox O2 O2 Flow FiO2 Time Delivery Rate 06/18/18 98.0 83 16 80/43 (55) 99 Room Air 14:35 Intake and Output 06/17/18 06/17/18 06/18/18 1515:00 23:00 07:00 IntakeIntake Total 780 ml 100 ml 570 ml OutputOutput Total 2400 ml BalanceBalance 780 ml -2300 ml 570 ml Results Result Diagram: 06/17/1851106/17/18 0512 Results 24hrs Labs reviewed Medications Medication Current Medications Acetaminophen (Tylenol Tab) 650 mg Q6H PRN PO MILD PAIN(1-3)OR ELEVATED TEMP; Start 06/13/18 at 02:00 Naproxen (Naprosyn) 500 mg BID PRN PO PAIN AND/OR INFLAMMATION Last administered on 06/17/18at 11:12; Admin Dose 500 MG; Start 06/13/18 at 02:00 Sevelamer Carbonate (Renvela) 800 mg WITH MEALS PO Last administered on 06/18/18at 12:54; Admin Dose 800 MG; Start 06/13/18 at 08:00 Zolpidem Tartrate (Ambien) 10 mg QHS PRN PO INSOMNIA; Start 06/13/18 at 02:00 Morphine Sulfate (morphine) 2 mg Q4H PRN IV SEVERE PAIN LEVEL 7-10 Last admin istered on 06/18/18at 16:16; Admin Dose 2 MG; Start 06/13/18 at 05:30 Albumin Human 100 ml @ 100 mls/hr WITH DIALYSIS PRN IV SBP <90 DURING DIALYSIS Last administered on 06/15/18at 21:47; Admin Dose 100 MLS/HR; Start 06/13/18 at 15:30 Heparin Sodium (Porcine) (Heparin (1000 Units/ml)) 3,200 unit AFTER DIALYSIS CATHETER Last administered on 06/17/18at 15:11; Admin Dose 3,200 UNIT; Start 06/13/18 at 16:30 Piperacillin Sod/ Tazobactam Sod 50 ml @ 100 mls/hr Q8 IVPB Last administered on 06/18/18 14:13; Admin Dose 100 MLS/HR; Start 06/13/18 at 23:00; Stop 06/20/18 at 22:59 Ondansetron HCl (Zofran Inj) 4 mg Q4H PRN IV NAUSEA AND/OR VOMITING Last administered on 06/17/18 10:59; Admin Dose 4 MG; Start 06/14/18 at 13:30 Calcitriol (Rocaltrol) 0.25 mcg QHS PO Last administered on 06/17/18at 21:04; Admin Dose 0.25 MCG; Start 06/15/18 at 21:00 Calcium Carbonate (Tums) 500 mg PC MEALS PO Last administered on 06/18/18at 12:54; Admin Dose 500 MG; Start 06/16/18 at 19:00 Diphenhydramine HCl (Benadryl) 50 mg Q6H PRN IV ITCHING ; Start 06/18/18 at 17:30 OANH WILEY MD Jun 18, 2018 16:32
[2018-06-18 20:00] VITALS: BP 93/51; PULSE 72; RESP 18
[2018-06-18] MEDS: CALCITRIOL 0.25 MCG CAP PO SCH (21:37)
--- NOTE | 2018-06-18 22:13 | CONS ---
Assessment/Plan Assessment/Plan Hospital Course (Demo Recall) - recurrent, possible infection of HD catheter site on R chest wall, sp removal and placement of a new HD catheter - biliary cholic, N&E, intermittent: according to Pt, she had received authoriz ation for elective cholecystectomy - s/p MRCP in 07/2017: negative for cholelithiasis or cholecystitis - s/p chills during the dialysis, subjective fever and anorexia prior to admission are concerning for bloodstream infections - h/o placement and removal of HD catheters, according to Pt, she has had 9 episodes of HD catheter site/catheter infection - [place] [facility] [place], thrombosed L brachiocephalic AV fistula, 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 Last used for HD in 04/2018 - s/p thrombocytopenia likely d/t linezolid. 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 Her last cycle was about 3 weeks ago - allergy to vancomycin (pruritus) recommendations: - will review result of head CT - will d/c renally dosed pip/tazo (06/13/2018-06/18/2018) and monitor Pt off systemic antibiotics management d/w Pt and her RN Dr. Nolan Morataya Consultation Date/Type/Reason Admit Date/Time Jun 13, 2018 at 00:07 Initial Consult Date 06/14/18 Type of Consult ID Requesting Provider: ERICK ROBERTSON Date/Time of Note DATE: 06/18/18 TIME: 21:59 24 HR Interval Summary Constitutional: no complaints Detailed Summary Eyes: no complaints ENT: other (+swelling of the scalp) Respiratory: shortness of breath Cardiovascular: other (+sweilling of the chest wall, scalp) Gastrointestinal: no complaints Genitourinary: other (on HD) Skin: other (mild pain from the catheter si=te) Neurologic: no complaints Exam/Review of Systems Exam Vitals Vital Signs Date Temp Pulse Resp B/P (MAP) Pulse Ox O2 O2 Flow FiO2 Time Delivery Rate 06/18/18 97.8 72 18 93/51 (65) 100 20:00 06/18/18 Room Air 14:35 Intake and Output 06/17/18 06/17/18 06/18/18 1414:59 22:59 06:59 IntakeIntake Total 780 ml 100 ml 570 ml OutputOutput Total 2400 ml BalanceBalance 780 ml -2300 ml 570 ml Constitutional: alert, oriented, well developed Psych: no complaints, nl mood/affect Head: normocephalic, atraumatic, other (alopecia, +soft swelling on the scalp (no erythema, non-TTP and non-indurated)) Eyes: nl conjunctiva, nl lids ENMT: nl external ears & nose, nl nasal mucosa & septum, mucosa pink and moist Neck: supple, non-tender Respiratory: clear to auscultation, normal air movement, other (swelling of chest wall, no erythema, non-TTP and non-indurated) Cardiovascular: regular rate and rhythm, other (AVF on LUE) Gastrointestinal: soft, non-tender; No tender Genitourinary - Female: other (on HD) Musculoskeletal: nl extremities to inspection Extremities: normal pulses 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: LOCK PLATER II-XII intact, nl mental status, nl speech, nl strength Skin: nl turgor, other (HD site is clean with dried blood) Results Result Diagram: 06/17/1851106/17/18511 Medications Medication Current Medications Acetaminophen (Tylenol Tab) 650 mg Q6H PRN PO MILD PAIN(1-3)OR ELEVATED TEMP; Start 06/13/18 at 02:00 Naproxen (Naprosyn) 500 mg BID PRN PO PAIN AND/OR INFLAMMATION Last administered on 06/17/18at 11:12; Admin Dose 500 MG; Start 06/13/18 at 02:00 Sevelamer Carbonate (Renvela) 800 mg WITH MEALS PO Last administered on 06/18/18at 17:31; Admin Dose 800 MG; Start 06/13/18 at 08:00 Zolpidem Tartrate (Ambien) 10 mg QHS PRN PO INSOMNIA; Start 06/13/18 at 02:00 Morphine Sulfate (morphine) 2 mg Q4H PRN IV SEVERE PAIN LEVEL 7-10 Last administered on 06/18/18 16:16; Admin Dose 2 MG; Start 06/13/18 at 05:30 Albumin Human 100 ml @ 100 mls/hr WITH DIALYSIS PRN IV SBP <90 DURING DIALYSIS Last administered on 06/15/18 21:47; Admin Dose 100 MLS/HR; Start 06/13/18 at 15:30 Heparin Sodium (Porcine) (Heparin (1000 Units/ml)) 3,200 unit AFTER DIALYSIS CATHETER Last administered on 06/17/18 15:11; Admin Dose 3,200 UNIT; Start 06/13/18 at 16:30 Piperacillin Sod/ Tazobactam Sod 50 ml @ 100 mls/hr Q8 IVPB Last administered on 06/18/18 21:38; Admin Dose 100 MLS/HR; Start 06/13/18 at 23:00; Stop 06/20/18 at 22:59 Ondansetron HCl (Zofran Inj) 4 mg Q4H PRN IV NAUSEA AND/OR VOMITING Last administered on 06/17/18 10:59; Admin Dose 4 MG; Start 06/14/18 at 13:30 Calcitriol (Rocaltrol) 0.25 mcg QHS PO Last administered on 06/18/18 21:37; Admin Dose 0.25 MCG; Start 06/15/18 at 21:00 Calcium Carbonate (Tums) 500 mg PC MEALS PO Last administered on 06/18/18 17:31; Admin Dose 500 MG; Start 06/16/18 at 19:00 Diphenhydramine HCl (Benadryl) 50 mg Q6H PRN IV ITCHING Last administered on 06/18/18 17:32; Admin Dose 50 MG; Start 06/18/18 at 17:30 GINGER HARDIN M.D. Jun 18, 2018 22:09
[2018-06-19 01:59] VITALS: BP 97/51; PULSE 73; RESP 18
[2018-06-19] MEDS: morphine 2 MG INJ IV PRN ×4 (06:06→19:55)
[2018-06-19] MEDS: DIPHENHYDRAMINE 50 MG INJ IV PRN ×3 (06:06→18:30)
[2018-06-19 07:37] VITALS: BP 93/46; PULSE 74; RESP 16
[2018-06-19] MEDS: CALCIUM CARBONATE 500 MG CHEW TAB PO SCH ×3 (09:29→17:37)
[2018-06-19] MEDS: SEVELAMER CARBONATE 800 MG TABLET PO SCH ×3 (09:29→17:37)
--- NOTE | 2018-06-19 10:01 | PN ---
Date/Time of Note Date/Time of Note DATE: 06/19/18 TIME: 09:58 Assessment/Plan VTE Prophylaxis Risk score (from Nsg)>0 risk: 2 SCD applied (from Nsg): Yes Pharmacological prophylaxis: other Lines/Catheters IV Catheter Type (from Nrsg): Q-cath Urinary Cath still in place: No Assessment/Plan Assessment/Plan head ct shows/renal osteodystrophy expected in her case abd discomfort/nt nausea contd hd per plan Result Diagram: 06/17/1851106/17/18511 Subjective 24 Hr Interval Summary Constitutional: no complaints ENT: no complaints Respiratory: no complaints Cardiovascular: no complaints Gastrointestinal: no complaints Genitourinary: other Neurologic: no complaints Exam/Review of Systems Exam Vitals Vital Signs Date Temp Pulse Resp B/P (MAP) Pulse Ox O2 O2 Flow FiO2 Time Delivery Rate 06/19/18 97.7 74 16 93/46 (62) 100 07:37 06/18/18 Room Air 14:35 Intake and Output 06/18/18 06/18/18 06/19/18 1414:59 22:59 06:59 IntakeIntake Total 1010 ml 530 ml 400 ml BalanceBalance 1010 ml 530 ml 400 ml Constitutional: alert, oriented, well developed Psych: no complaints, nl mood/affect Head: normocephalic, other Neck: supple, non-tender Respiratory: clear to auscultation, normal air movement Cardiovascular: regular rate and rhythm, nl pulses Gastrointestinal: soft, nl liver, spleen, non-tender Extremities: normal pulses Medications Medication Current Medications Acetaminophen (Tylenol Tab) 650 mg Q6H PRN PO MILD PAIN(1-3)OR ELEVATED TEMP; Start 06/13/18 at 02:00 Naproxen (Naprosyn) 500 mg BID PRN PO PAIN AND/OR INFLAMMATION Last administered on 06/17/18at 11:12; Admin Dose 500 MG; Start 06/13/18 at 02:00 Sevelamer Carbonate (Renvela) 800 mg WITH MEALS PO Last administered on 06/19/18at 09:29; Admin Dose 800 MG; Start 06/13/18 at 08:00 Zolpidem Tartrate (Ambien) 10 mg QHS PRN PO INSOMNIA; Start 06/13/18 at 02:00 Morphine Sulfate (morphine) 2 mg Q4H PRN IV SEVERE PAIN LEVEL 7-10 Last administered on 06/19/18 06:06; Admin Dose 2 MG; Start 06/13/18 at 05:30 Albumin Human 100 ml @ 100 mls/hr WITH DIALYSIS PRN IV SBP <90 DURING DIALYSIS Last administered on 06/15/18 21:47; Admin Dose 100 MLS/HR; Start 06/13/18 at 15:30 Heparin Sodium (Porcine) (Heparin (1000 Units/ml)) 3,200 unit AFTER DIALYSIS CATHETER Last administered on 06/17/18 15:11; Admin Dose 3,200 UNIT; Start 06/13/18 at 16:30 Ondansetron HCl (Zofran Inj) 4 mg Q4H PRN IV NAUSEA AND/OR VOMITING Last administered on 06/17/18 10:59; Admin Dose 4 MG; Start 06/14/18 at 13:30 Calcitriol (Rocaltrol) 0.25 mcg QHS PO Last administered on 06/18/18 21:37; Admin Dose 0.25 MCG; Start 06/15/18 at 21:00 Calcium Carbonate (Tums) 500 mg PC MEALS PO Last administered on 06/19/18 09:29; Admin Dose 500 MG; Start 06/16/18 at 19:00 Diphenhydramine HCl (Benadryl) 50 mg Q6H PRN IV ITCHING Last administered on 06/19/18 06:06; Admin Dose 50 MG; Start 06/18/18 at 17:30 ANNIE SANTOS MD Jun 19, 2018 10:01
--- NOTE | 2018-06-19 12:41 | PN ---
Date/Time of Note Date/Time of Note DATE: 06/19/18 TIME: 12:40 Assessment/Plan VTE Prophylaxis Risk score (from Ns)>0 risk: 3 SCD applied (from Ns): Yes Pharmacological prophylaxis: LMWH Lines/Catheters IV Catheter Type (from [facility]): Perez cath Urinary Cath still in place: No Assessment/Plan Hospital Course -Possible line sepsis, follow-up on blood cultures from the catheter, continue broad-spectrum antibiotics. Dr. Arora is following in infection disease consultation. -Hemodialysis dependent end-stage renal disease. Dr. Omalley is following in nephrology consultation. -History of hyperparathyroidism, status post subtotal parathyroidectomy of the right superior and inferior glands, partial left inferior gland in June 2016. Status post left upper and lower parathyroidectomy and partial left thyroid lobectomy in November [address] Morales, ENT. Dr. De La Fuente is following in endocrinology consultation. -Left chest hemodialysis catheter present on admission, discontinued. -Left upper extremity AV fistula nonfunctioning, Dr. Francisco is following in vascular surgery consultation. -Status post right chest Perez catheter placement Result Diagram: 06/17/18 0512 06/17/18 0512 Subjective 24 Hr Interval Summary Free Text/Dictation Patient has some pain in the abdomen still Exam/Review of Systems Exam Vitals Vital Signs Date Temp Pulse Resp B/P (MAP) Pulse Ox O2 O2 Flow FiO2 Time Delivery Rate 06/19/18 97.7 74 16 93/46 (62) 100 07:37 06/18/18 Room Air 14:35 Intake and Output 06/18/18 06/18/18 06/19/18 1515:00 23:00 07:00 IntakeIntake Total 1010 ml 530 ml 400 ml BalanceBalance 1010 ml 530 ml 400 ml Constitutional: well developed Head: normocephalic, atraumatic Neck: supple Respiratory: diminished breath sounds Cardiovascular: regular rate and rhythm Gastrointestinal: soft, non-tender Extremities: normal pulses Medications Medication Current Medications Acetaminophen (Tylenol Tab) 650 mg Q6H PRN PO MILD PAIN(1-3)OR ELEVATED TEMP; Start 06/13/18 at 02:00 Naproxen (Naprosyn) 500 mg BID PRN PO PAIN AND/OR INFLAMMATION Last administered on 06/17/18at 11:12; Admin Dose 500 MG; Start 06/13/18 at 02:00 Sevelamer Carbonate (Renvela) 800 mg WITH MEALS PO Last administered on 06/19/18 12:14; Admin Dose 800 MG; Start 06/13/18 at 08:00 Zolpidem Tartrate (Ambien) 10 mg QHS PRN PO INSOMNIA; Start 06/13/18 at 02:00 Morphine Sulfate (morphine) 2 mg Q4H PRN IV SEVERE PAIN LEVEL 7-10 Last admi nistered on 06/19/18 11:29; Admin Dose 2 MG; Start 06/13/18 at 05:30 Albumin Human 100 ml @ 100 mls/hr WITH DIALYSIS PRN IV SBP <90 DURING DIALYSIS Last administered on 06/15/18 21:47; Admin Dose 100 MLS/HR; Start 06/13/18 at 15:30 Heparin Sodium (Porcine) (Heparin (1000 Units/ml)) 3,200 unit AFTER DIALYSIS CATHETER Last administered on 06/17/18 15:11; Admin Dose 3,200 UNIT; Start 06/13/18 at 16:30 Ondansetron HCl (Zofran Inj) 4 mg Q4H PRN IV NAUSEA AND/OR VOMITING Last administered on 06/17/18 10:59; Admin Dose 4 MG; Start 06/14/18 at 13:30 Calcitriol (Rocaltrol) 0.25 mcg QHS PO Last administered on 06/18/18 21:37; Admin Dose 0.25 MCG; Start 06/15/18 at 21:00 Calcium Carbonate (Tums) 500 mg PC MEALS PO Last administered on 06/19/18 12:14; Admin Dose 500 MG; Start 06/16/18 at 19:00 Diphenhydramine HCl (Benadryl) 50 mg Q6H PRN IV ITCHING Last administered on 06/19/18 12:14; Admin Dose 50 MG; Start 06/18/18 at 17:30 ANGELY PANG Jun 19, 2018 12:41
[2018-06-19 14:39] VITALS: BP 90/55; PULSE 71; RESP 16
--- NOTE | 2018-06-19 15:22 | CONS ---
Assessment/Plan Assessment/Plan Problems: (1) Postprocedural hypoparathyroidism Status: Chronic Comment: Ionized calcium levels at target on current regimen. (2) Premature ovarian failure Status: Chronic Comment: LH, FSH and estrogen levels confirm premature ovarian failure. Etiology unknown. Consultation Date/Type/Reason Admit Date/Time Jun 13, 2018 at 00:07 Initial Consult Date 06/14/18 Type of Consult Endocrine Reason for Consultation procedural hypoparathyroidism with calcium disorder. Requesting Provider: ERICK ROBERTSON Date/Time of Note DATE: 06/19/18 TIME: 15:17 Exam/Review of Systems Exam Vitals Vital Signs Date Temp Pulse Resp B/P (MAP) Pulse Ox O2 O2 Flow FiO2 Time Delivery Rate 06/19/18 97.3 71 16 90/55 (67) 100 14:39 06/18/18 Room Air 14:35 Intake and Output 06/18/18 06/18/18 06/19/18 1515:00 23:00 07:00 IntakeIntake Total 1010 ml 530 ml 400 ml BalanceBalance 1010 ml 530 ml 400 ml Results Result Diagram: 06/17/1851106/17/18511 Results 24hrs Laboratory Tests Test 06/19/18 14:27 Ionized Calcium (Measured) 1.3 Medications Medication Current Medications Acetaminophen (Tylenol Tab) 650 mg Q6H PRN PO MILD PAIN(1-3)OR ELEVATED TEMP; Start 06/13/18 at 02:00 Naproxen (Naprosyn) 500 mg BID PRN PO PAIN AND/OR INFLAMMATION Last administered on 06/17/18at 11:12; Admin Dose 500 MG; Start 06/13/18 at 02:00 Sevelamer Carbonate (Renvela) 800 mg WITH MEALS PO Last administered on 06/19/18at 12:14; Admin Dose 800 MG; Start 06/13/18 at 08:00 Zolpidem Tartrate (Ambien) 10 mg QHS PRN PO INSOMNIA; Start 06/13/18 at 02:00 Morphine Sulfate (morphine) 2 mg Q4H PRN IV SEVERE PAIN LEVEL 7-10 Last administered on 06/19/18at 11:29; Admin Dose 2 MG; Start 06/13/18 at 05:30 Albumin Human 100 ml @ 100 mls/hr WITH DIALYSIS PRN IV SBP <90 DURING DIALYSIS Last administered on 06/15/18 21:47; Admin Dose 100 MLS/HR; Start 06/13/18 at 15:30 Heparin Sodium (Porcine) (Heparin (1000 Units/ml)) 3,200 unit AFTER DIALYSIS CATHETER Last administered on 06/17/18 15:11; Admin Dose 3,200 UNIT; Start 06/13/18 at 16:30 Ondansetron HCl (Zofran Inj) 4 mg Q4H PRN IV NAUSEA AND/OR VOMITING Last administered on 06/17/18 10:59; Admin Dose 4 MG; Start 06/14/18 at 13:30 Calcitriol (Rocaltrol) 0.25 mcg QHS PO Last administered on 06/18/18 21:37; Admin Dose 0.25 MCG; Start 06/15/18 at 21:00 Calcium Carbonate (Tums) 500 mg PC MEALS PO Last administered on 06/19/18 12:14; Admin Dose 500 MG; Start 06/16/18 at 19:00 Diphenhydramine HCl (Benadryl) 50 mg Q6H PRN IV ITCHING Last administered on 06/19/18 12:14; Admin Dose 50 MG; Start 06/18/18 at 17:30 OANH WILEY MD Jun 19, 2018 15:22
[2018-06-19] MEDS: CALCITRIOL 0.25 MCG CAP PO SCH (20:00)
--- NOTE | 2018-06-19 20:28 | PN ---
Date/Time of Note Date/Time of Note DATE: TIME: 13:10 later entry Assessment/Plan Lines/Catheters IV Catheter Type (from [facility]): Perez cath Stephen in Place (from [facility]): No Assessment/Plan Chief Complaint/Hosp Course -End-stage renal disease and central stenosis: It seems the patient has had longstanding history of end-stage renal disease over the past 9 years and now has a malfunctioning of left upper extremity fistula with a questionable line sepsis. At the moment on our examination, there is no significant erythema other than some dermatitis around the catheter insertion site and some clear drainage. From the standpoint of this catheter being infected, we removed this catheter and send the tip for culture. In the meantime, as the patient had central stenosis given her extensive past medical history of multiple chest wall catheter placements concern for losing her central access was there. Therefore, we maintained her access with a Perez catheter for now until blood and catheter tip cultures return -S/P Central venogram and venoplasty -S/P Removal- perm catheter -S/P [place] catheter placement -Will plan to workup the patient for eventual access creation as she recovers through this hospitalization. -Discussed findings, plan and management with the patient and the primary service and they understand. A certified optical goods drilling machine operator was present. -Optimize vascular status (BP meds, diet, nutrition, exercise, sugar control). -Thank you for allowing us to participate in the care of your patient. Please call us if you have any questions. Subjective 24 Hr Interval Summary Constitutional: no complaints Exam/Review of Systems Vital Signs Vitals Vital Signs Date Temp Pulse Resp B/P (MAP) Pulse Ox O2 O2 Flow FiO2 Time Delivery Rate 06/19/18 97.3 71 16 90/55 (67) 100 14:39 06/18/18 Room Air 14:35 Intake and Output 06/18/18 06/18/18 06/19/18 1515:00 23:00 07:00 IntakeIntake Total 1010 ml 530 ml 400 ml BalanceBalance 1010 ml 530 ml 400 ml Exam Free Text/Dictation GENERAL: Alert and oriented x3 HEENT: Normocephalic, atraumatic. Mucosa moist. Alopecia. NECK: Supple, no carotid bruit. CARDIOVASCULAR: Surgical scar well healed. right chest Perez, no pus or erythema PULMONARY: Clear breath sounds bilaterally and superficial veins upon her left chest wall and her mid sternum. CARDIOVASCULAR: S1, S2 present. No murmurs. ABDOMEN: Soft, nontender, nondistended. Bowel sounds positive. Bilateral tattoos in the lower quadrants. LOWER EXTREMITIES: - Right lower extremity palpable femoral pulse, palpable pedal pulse. Motor and sensory intact. Capillary refill 3 seconds. - Left lower extremity palpable femoral pulse, palpable pedal pulse. Motor and sensory intact. Capillary refill 3 seconds. - Left upper extremity palpable brachial pulse. Motor and sensory intact. Capillary refill 3 seconds. Fistula that is without any bruit or thrill. - Right upper extremity palpable brachial pulse. Motor and sensory intact. Capillary refill 3 seconds. Results Result Diagram: 06/17/18 0512 06/17/18 0512 MIMI CORONEL MD Jun 19, 2018 20:28
--- NOTE | 2018-06-19 20:31 | PN ---
Date/Time of Note Date/Time of Note DATE: 06/19/18 TIME: 20:30 Assessment/Plan Lines/Catheters IV Catheter Type (from [facility], [place]): Perez cath Stephen in Place (from [facility], [place]): No Assessment/Plan Chief Complaint/Hosp Course -End-stage renal disease and central stenosis: It seems the patient has had longstanding history of end-stage renal disease over the past 9 years and now has a malfunctioning of left upper extremity fistula with a questionable line sepsis. At the moment on our examination, there is no significant erythema other than some dermatitis around the catheter insertion site and some clear drainage. From the standpoint of this catheter being infected, we removed this catheter and send the tip for culture. In the meantime, as the patient had central stenosis given her extensive past medical history of multiple chest wall catheter placements concern for losing her central access was there. Therefore, we maintained her access with a Perez catheter for now until blood and catheter tip cultures return -S/P Central venogram and venoplasty -S/P Removal- perm catheter -S/P Quintoin catheter placement -Catheter tip culture without growth. Will schedule for perm catheter placement -Will plan to workup the patient for eventual access creation as she recovers through this hospitalization. -Discussed findings, plan and management with the patient and the primary service and they understand. A certified ornamental plasterer helper was present. -Optimize vascular status (BP meds, diet, nutrition, exercise, sugar control). -Thank you for allowing us to participate in the care of your patient. Please call us if you have any questions. Subjective 24 Hr Interval Summary Constitutional: no complaints Exam/Review of Systems Vital Signs Vitals Vital Signs Date Temp Pulse Resp B/P (MAP) Pulse Ox O2 O2 Flow FiO2 Time Delivery Rate 06/19/18 97.3 71 16 90/55 (67) 100 14:39 06/18/18 Room Air 14:35 Intake and Output 06/18/18 06/18/18 06/19/18 1515:00 23:00 07:00 IntakeIntake Total 1010 ml 530 ml 400 ml BalanceBalance 1010 ml 530 ml 400 ml Exam Free Text/Dictation GENERAL: Alert and oriented x3 HEENT: Normocephalic, atraumatic. Mucosa moist. Alopecia. NECK: Supple, no carotid bruit. CARDIOVASCULAR: Surgical scar well healed. right chest Perez, no pus or bradley thema PULMONARY: Clear breath sounds bilaterally and superficial veins upon her left chest wall and her mid sternum. CARDIOVASCULAR: S1, S2 present. No murmurs. ABDOMEN: Soft, nontender, nondistended. Bowel sounds positive. Bilateral tattoos in the lower quadrants. LOWER EXTREMITIES: - Right lower extremity palpable femoral pulse, palpable pedal pulse. Motor and sensory intact. Capillary refill 3 seconds. - Left lower extremity palpable femoral pulse, palpable pedal pulse. Motor and sensory intact. Capillary refill 3 seconds. - Left upper extremity palpable brachial pulse. Motor and sensory intact. Capillary refill 3 seconds. Fistula that is without any bruit or thrill. - Right upper extremity palpable brachial pulse. Motor and sensory intact. Capillary refill 3 seconds. Results Result Diagram: 06/17/1851106/17/18511 MIMI CORONEL MD Jun 19, 2018 20:31
--- NOTE | 2018-06-19 23:54 | CONS ---
Assessment/Plan Assessment/Plan Hospital Course (Demo Recall) - recurrent, possible infection of HD catheter site on R chest wall, sp removal and placement of a new justin catheter. The culture of the tip of the removed catheter, blood cultures and swab of the catheter site were negative. Pt completed a course of empiric pip/tazo - biliary cholic, N&E, intermittent: according to Pt, she had received authorization for elective cholecystectomy - s/p MRCP in 07/2017: negative for cholelithiasis or cholecystitis - s/p chills during the dialysis, subjective fever and anorexia prior to admission are concerning for bloodstream infections - h/o placement and removal of HD catheters, according to Pt, she has had 9 episodes of HD catheter site/catheter infection - h/[place] [facility] [place], thrombosed L brachiocephalic AV fistula, 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 Last used for HD in 04/2018 - s/p thrombocytopenia likely d/t linezolid. 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 Her last cycle was about 3 weeks ago - allergy to vancomycin (pruritus) recommendations: - Pt is cleared for placement of a permacath from ID standpoint - monitor Pt off systemic antibiotics. Pt completed an empiric course of renally dosed pip/tazo (06/13/2018-06/18/2018) management d/w Pt and her RN Consultation Date/Type/Reason Admit Date/Time Jun 13, 2018 at 00:07 Initial Consult Date 06/14/18 Type of Consult ID Requesting Provider: ERICK ROBERTSON Date/Time of Note DATE: 06/19/18 TIME: 23:50 24 HR Interval Summary Constitutional: no complaints Detailed Summary Eyes: no complaints ENT: other (scalp with soft tissue swelling, painless) Respiratory: other (+feels the same swelling of the anterior chest wall) Cardiovascular: no complaints Gastrointestinal: no complaints Genitourinary: other (no pain from HD catheter site) Skin: No rash Neurologic: no complaints Endocrine: no complaints Exam/Review of Systems Exam Vitals Vital Signs Date Temp Pulse Resp B/P (MAP) Pulse Ox O2 O2 Flow FiO2 Time Delivery Rate 06/19/18 97.3 71 16 90/55 (67) 100 14:39 06/18/18 Room Air 14:35 Intake and Output 06/18/18 06/18/18 06/19/18 1515:00 23:00 07:00 IntakeIntake Total 1010 ml 530 ml 400 ml BalanceBalance 1010 ml 530 ml 400 ml Constitutional: alert, oriented, well developed Psych: no complaints, nl mood/affect Head: atraumatic, other (alopecia, slight swelling of the top of the scalp, non-tender) Eyes: nl conjunctiva, nl lids ENMT: nl external ears & nose, nl nasal mucosa & septum Neck: supple, other (not swollen) Respiratory: clear to auscultation, normal air movement, other (mild swelling o f the chest wall, non-tender and non-erythematous) Cardiovascular: regular rate and rhythm, nl pulses, other (+AVF in LUE); No edema Gastrointestinal: soft, non-tender Musculoskeletal: nl extremities to inspection Extremities: No edema 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: STEAM ROOM ATTENDANT II-XII intact, nl mental status, nl speech, nl strength Skin: No rash or lesions (at HD catheter) Results Result Diagram: 06/17/1851106/17/18511 Results 24hrs Laboratory Tests Test 06/19/18 14:27 Ionized Calcium (Measured) 1.3 Medications Medication Current Medications Acetaminophen (Tylenol Tab) 650 mg Q6H PRN PO MILD PAIN(1-3)OR ELEVATED TEMP; Start 06/13/18 at 02:00 Naproxen (Naprosyn) 500 mg BID PRN PO PAIN AND/OR INFLAMMATION Last administered on 06/17/18at 11:12; Admin Dose 500 MG; Start 06/13/18 at 02:00 Sevelamer Carbonate (Renvela) 800 mg WITH MEALS PO Last administered on 06/19/18at 17:37; Admin Dose 800 MG; Start 06/13/18 at 08:00 Zolpidem Tartrate (Ambien) 10 mg QHS PRN PO INSOMNIA; Start 06/13/18 at 02:00 Morphine Sulfate (morphine) 2 mg Q4H PRN IV SEVERE PAIN LEVEL 7-10 Last administered on 06/19/18 19:55; Admin Dose 2 MG; Start 06/13/18 at 05:30 Albumin Human 100 ml @ 100 mls/hr WITH DIALYSIS PRN IV SBP <90 DURING DIALYSIS Last administered on 06/15/18 21:47; Admin Dose 100 MLS/HR; Start 06/13/18 at 15:30 Heparin Sodium (Porcine) (Heparin (1000 Units/ml)) 3,200 unit AFTER DIALYSIS CATHETER Last administered on 06/17/18 15:11; Admin Dose 3,200 UNIT; Start 06/13/18 at 16:30 Ondansetron HCl (Zofran Inj) 4 mg Q4H PRN IV NAUSEA AND/OR VOMITING Last administered on 06/17/18 10:59; Admin Dose 4 MG; Start 06/14/18 at 13:30 Calcitriol (Rocaltrol) 0.25 mcg QHS PO Last administered on 06/19/18 20:00; Admin Dose 0.25 MCG; Start 06/15/18 at 21:00 Calcium Carbonate (Tums) 500 mg PC MEALS PO Last administered on 06/19/18 17:37; Admin Dose 500 MG; Start 06/16/18 at 19:00 Diphenhydramine HCl (Benadryl) 50 mg Q6H PRN IV ITCHING Last administered on 06/19/18 18:30; Admin Dose 50 MG; Start 06/18/18 at 17:30 GINGER HARDIN M.D. Jun 19, 2018 23:54
[2018-06-20] MEDS: DIPHENHYDRAMINE 50 MG INJ IV PRN ×4 (00:33→18:24)
[2018-06-20] MEDS: morphine 2 MG INJ IV PRN ×5 (00:38→21:55)
[2018-06-20 02:00] VITALS: BP 93/50; PULSE 78; RESP 18
[2018-06-20 07:39] VITALS: BP 85/51; PULSE 75; RESP 16
[2018-06-20] MEDS: CALCIUM CARBONATE 500 MG CHEW TAB PO SCH ×3 (08:33→17:31)
[2018-06-20] MEDS: SEVELAMER CARBONATE 800 MG TABLET PO SCH ×3 (08:33→17:29)
--- NOTE | 2018-06-20 10:56 | PN ---
Date/Time of Note Date/Time of Note DATE: 06/20/18 TIME: 10:55 Assessment/Plan VTE Prophylaxis Risk score (from Nsg)>0 risk: 2 SCD applied (from Nsg): No Lines/Catheters IV Catheter Type (from Nrsg): olivia catheter Urinary Cath still in place: No Assessment/Plan Assessment/Plan -Possible line sepsis, follow-up on blood cultures from the catheter, continue broad-spectrum antibiotics. Dr. Arora is following in infection disease consultation. -Hemodialysis dependent end-stage renal disease. Dr. Omalley is following in nephrology consultation. -History of hyperparathyroidism, status post subtotal parathyroidectomy of the right superior and inferior glands, partial left inferior gland in June 2016. Status post left upper and lower parathyroidectomy and partial left thyroid lobectomy in November [address] Morales, ENT. Dr. De La Fuente is following in endocrinology consultation. -Left chest hemodialysis catheter present on admission, discontinued. -Left upper extremity AV fistula nonfunctioning, Dr. Francisco is following in vascular surgery consultation. -Status post right chest Olivia catheter placement Result Diagram: Result Diagram: 06/17/1851106/17/18511 Results 24hrs Laboratory Tests Test 06/19/18 14:27 Ionized Calcium (Measured) 1.3 Exam/Review of Systems Exam Vitals Vital Signs Date Temp Pulse Resp B/P (MAP) Pulse Ox O2 O2 Flow FiO2 Time Delivery Rate 06/20/18 98.1 75 16 85/51 (62) 97 07:39 06/18/18 Room Air 14:35 Intake and Output 06/19/18 06/19/18 06/20/18 1515:00 23:00 07:00 IntakeIntake Total 1080 ml 320 ml 480 ml BalanceBalance 1080 ml 320 ml 480 ml Results Results 24hrs Laboratory Tests Test 06/19/18 14:27 Ionized Calcium (Measured) 1.3 Medications Medication Current Medications Acetaminophen (Tylenol Tab) 650 mg Q6H PRN PO MILD PAIN(1-3)OR ELEVATED TEMP; Start 06/13/18 at 02:00 Naproxen (Naprosyn) 500 mg BID PRN PO PAIN AND/OR INFLAMMATION Last administered on 06/17/18at 11:12; Admin Dose 500 MG; Start 06/13/18 at 02:00 Sevelamer Carbonate (Renvela) 800 mg WITH MEALS PO Last administered on 06/20/18 08:33; Admin Dose 800 MG; Start 06/13/18 at 08:00 Zolpidem Tartrate (Ambien) 10 mg QHS PRN PO INSOMNIA; Start 06/13/18 at 02:00 Morphine Sulfate (morphine) 2 mg Q4H PRN IV SEVERE PAIN LEVEL 7-10 Last administered on 06/20/18 06:25; Admin Dose 2 MG; Start 06/13/18 at 05:30 Albumin Human 100 ml @ 100 mls/hr WITH DIALYSIS PRN IV SBP <90 DURING DIALYSIS Last administered on 06/15/18 21:47; Admin Dose 100 MLS/HR; Start 06/13/18 at 15:30 Heparin Sodium (Porcine) (Heparin (1000 Units/ml)) 3,200 unit AFTER DIALYSIS CATHETER Last administered on 06/17/18 15:11; Admin Dose 3,200 UNIT; Start 06/13/18 at 16:30 Ondansetron HCl (Zofran Inj) 4 mg Q4H PRN IV NAUSEA AND/OR VOMITING Last administered on 06/17/18 10:59; Admin Dose 4 MG; Start 06/14/18 at 13:30 Calcitriol (Rocaltrol) 0.25 mcg QHS PO Last administered on 06/19/18 20:00; Admin Dose 0.25 MCG; Start 06/15/18 at 21:00 Calcium Carbonate (Tums) 500 mg PC MEALS PO Last administered on 06/20/18 08:33; Admin Dose 500 MG; Start 06/16/18 at 19:00 Diphenhydramine HCl (Benadryl) 50 mg Q6H PRN IV ITCHING Last administered on 06/20/18 06:24; Admin Dose 50 MG; Start 06/18/18 at 17:30 EDILMA CASIANO Jun 20, 2018 10:56
--- NOTE | 2018-06-20 12:17 | CONS ---
Assessment/Plan Assessment/Plan Problems: (1) Tertiary hyperparathyroidism Status: Resolved Comment: Resolved with surgery but the left patient with renal osteodystrophy. (2) Postprocedural hypoparathyroidism Status: Chronic Comment: Now on a stable simple regimen with adequate calcium control. Continue the current regimen in the exact same fashion please (3) Premature ovarian failure Status: Chronic Comment: Noted. (4) Hyperprolactinemia Status: Chronic Comment: Formalized imaging evaluation Consultation Date/Type/Reason Admit Date/Time Jun 13, 2018 at 00:07 Initial Consult Date 06/14/18 Type of Consult Endocrine Reason for Consultation History of tertiary hyperparathyroidism status post total parathyroidectomy done in 2 stages; postoperative hypoparathyroidism; temporary hypercalcemia due to vitamin D intoxication; premature ovarian failure times 4 years; hyperprolactinemia; choledocholithiasis Requesting Provider: ERICK ROBERTSON Date/Time of Note DATE: 06/20/18 TIME: 12:14 24 HR Interval Summary Free Text/Dictation Patient complains of right upper quadrant pain Detailed Summary Endocrine: no complaints Exam/Review of Systems Exam Vitals Vital Signs Date Temp Pulse Resp B/P (MAP) Pulse Ox O2 O2 Flow FiO2 Time Delivery Rate 06/20/18 98.1 75 16 85/51 (62) 97 07:39 06/18/18 Room Air 14:35 Intake and Output 06/19/18 06/19/18 06/20/18 1414:59 22:59 06:59 IntakeIntake Total 1080 ml 320 ml 480 ml BalanceBalance 1080 ml 320 ml 480 ml Constitutional: alert, oriented Respiratory: clear to auscultation, normal air movement Cardiovascular: regular rate and rhythm, nl pulses Results Result Diagram: 06/17/1851106/17/18511 Results 24hrs Laboratory Tests Test 06/19/18 14:27 Ionized Calcium (Measured) 1.3 Medications Medication Current Medications Acetaminophen (Tylenol Tab) 650 mg Q6H PRN PO MILD PAIN(1-3)OR ELEVATED TEMP; Start 06/13/18 at 02:00 Naproxen (Naprosyn) 500 mg BID PRN PO PAIN AND/OR INFLAMMATION Last administered on 06/17/18at 11:12; Admin Dose 500 MG; Start 06/13/18 at 02:00 Sevelamer Carbonate (Renvela) 800 mg WITH MEALS PO Last administered on 06/20/18 11:30; Admin Dose 800 MG; Start 06/13/18 at 08:00 Zolpidem Tartrate (Ambien) 10 mg QHS PRN PO INSOMNIA; Start 06/13/18 at 02:00 Morphine Sulfate (morphine) 2 mg Q4H PRN IV SEVERE PAIN LEVEL 7-10 Last administered on 06/20/18 11:30; Admin Dose 2 MG; Start 06/13/18 at 05:30 Albumin Human 100 ml @ 100 mls/hr WITH DIALYSIS PRN IV SBP <90 DURING DIALYSIS Last administered on 06/15/18 21:47; Admin Dose 100 MLS/HR; Start 06/13/18 at 15:30 Heparin Sodium (Porcine) (Heparin (1000 Units/ml)) 3,200 unit AFTER DIALYSIS CATHETER Last administered on 06/17/18 15:11; Admin Dose 3,200 UNIT; Start 06/13/18 at 16:30 Ondansetron HCl (Zofran Inj) 4 mg Q4H PRN IV NAUSEA AND/OR VOMITING Last a dministered on 06/17/18 10:59; Admin Dose 4 MG; Start 06/14/18 at 13:30 Calcitriol (Rocaltrol) 0.25 mcg QHS PO Last administered on 06/19/18 20:00; Admin Dose 0.25 MCG; Start 06/15/18 at 21:00 Calcium Carbonate (Tums) 500 mg PC MEALS PO Last administered on 06/20/18 08:33; Admin Dose 500 MG; Start 06/16/18 at 19:00 Diphenhydramine HCl (Benadryl) 50 mg Q6H PRN IV ITCHING Last administered on 06/20/18 06:24; Admin Dose 50 MG; Start 06/18/18 at 17:30 ESEQUIEL NAPOLES MD Jun 20, 2018 12:17
[2018-06-20 14:35] VITALS: BP 108/54; PULSE 80; RESP 16
--- NOTE | 2018-06-20 15:11 | CONS ---
Assessment/Plan Assessment/Plan Hospital Course (Demo Recall) - recurrent, possible infection of HD catheter site on R chest wall, sp removal and placement of a new Barber catheter. The culture of the tip of the removed catheter, blood cultures and swab of the catheter site were negative. Pt completed an empiric course of renally dosed pip/tazo (06/13/2018-06/18/2018) - biliary cholic, N&E, intermittent: according to Pt, she had received authorization for elective cholecystectomy - s/p MRCP in 07/2017: negative for cholelithiasis or cholecystitis - s/p chills during the dialysis, subjective fever and anorexia prior to admission are concerning for bloodstream infections - h/o placement and removal of HD catheters, according to Pt, she has had 9 epi sodes of HD catheter site/catheter infection - h/o creation of AVF in [facility] [place] in 2016, thrombosed L brachiocephalic AV fistula, 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 Last used for HD in 04/2018 - s/p thrombocytopenia likely d/t linezolid. 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 Her last cycle was about 3 weeks ago - allergy to vancomycin (pruritus) recommendations: - will review the result o brain MRI - Pt is cleared for placement of a permacath from ID standpoint - monitor Pt off systemic antibiotics. management d/w Pt and her RN Brittney Consultation Date/Type/Reason Admit Date/Time Jun 13, 2018 at 00:07 Initial Consult Date 06/14/18 Type of Consult ID Requesting Provider: ERICK ROBERTSON Date/Time of Note DATE: 06/20/18 TIME: 15:07 24 HR Interval Summary Constitutional: other ("pain all over") Detailed Summary Eyes: no complaints ENT: other (+swelling and pain of the top of the scalp) Respiratory: no complaints Cardiovascular: edema (chest wall), other (wants the AVF in her LUE be de- clotted) Gastrointestinal: no complaints Genitourinary: other (on HD) Musculoskeletal: no complaints Skin: no complaints Neurologic: no complaints Exam/Review of Systems Exam Vitals Vital Signs Date Temp Pulse Resp B/P (MAP) Pulse Ox O2 O2 Flow FiO2 Time Delivery Rate 06/20/18 97.9 80 16 108/54 98 14:35 (72) 06/18/18 Room Air 14:35 Intake and Output 06/19/18 06/19/18 06/20/18 1515:00 23:00 07:00 IntakeIntake Total 1080 ml 320 ml 480 ml BalanceBalance 1080 ml 320 ml 480 ml Constitutional: well developed, frail Psych: no complaints, nl mood/affect Head: normocephalic, other (alopecia, +top of the scalp feels soft, but fluct uant or indurated) Eyes: nl conjunctiva, nl lids ENMT: nl external ears & nose, nl nasal mucosa & septum Neck: supple, non-tender Respiratory: other (chest wall feels slightly edematous, not fluctuant or tender) Cardiovascular: regular rate and rhythm, nl pulses Gastrointestinal: soft, non-tender Extremities: other (+AVF in LUE, no thrill); No edema 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: FIREWOOD CUTTER II-XII intact, nl mental status, nl speech Skin: nl turgor, other (HD catheter site is dressed); No rash or lesions Results Result Diagram: 06/17/1851106/17/18511 Medications Medication Current Medications Acetaminophen (Tylenol Tab) 650 mg Q6H PRN PO MILD PAIN(1-3)OR ELEVATED TEMP; Start 06/13/18 at 02:00 Naproxen (Naprosyn) 500 mg BID PRN PO PAIN AND/OR INFLAMMATION Last administered on 06/17/18at 11:12; Admin Dose 500 MG; Start 06/13/18 at 02:00 Sevelamer Carbonate (Renvela) 800 mg WITH MEALS PO Last administered on 06/20/18at 11:30; Admin Dose 800 MG; Start 06/13/18 at 08:00 Zolpidem Tartrate (Ambien) 10 mg QHS PRN PO INSOMNIA; Start 06/13/18 at 02:00 Morphine Sulfate (morphine) 2 mg Q4H PRN IV SEVERE PAIN LEVEL 7-10 Last administered on 06/20/18 11:30; Admin Dose 2 MG; Start 06/13/18 at 05:30 Albumin Human 100 ml @ 100 mls/hr WITH DIALYSIS PRN IV SBP <90 DURING DIALYSIS Last administered on 06/15/18 21:47; Admin Dose 100 MLS/HR; Start 06/13/18 at 15:30 Heparin Sodium (Porcine) (Heparin (1000 Units/ml)) 3,200 unit AFTER DIALYSIS CATHETER Last administered on 06/17/18 15:11; Admin Dose 3,200 UNIT; Start 06/13/18 at 16:30 Ondansetron HCl (Zofran Inj) 4 mg Q4H PRN IV NAUSEA AND/OR VOMITING Last administered on 06/17/18 10:59; Admin Dose 4 MG; Start 06/14/18 at 13:30 Calcitriol (Rocaltrol) 0.25 mcg QHS PO Last administered on 06/19/18 20:00; Admin Dose 0.25 MCG; Start 06/15/18 at 21:00 Calcium Carbonate (Tums) 500 mg PC MEALS PO Last administered on 06/20/18 08:33; Admin Dose 500 MG; Start 06/16/18 at 19:00 Diphenhydramine HCl (Benadryl) 50 mg Q6H PRN IV ITCHING Last administered on 06/20/18 12:31; Admin Dose 50 MG; Start 06/18/18 at 17:30 GINGER HARDIN M.D. Jun 20, 2018 15:11
--- NOTE | 2018-06-20 19:38 | CONS ---
Assessment/Plan Assessment/Plan Assessment/Plan 32 yo Female with 1) Catheter related infection, Exit site infection, No bacteremia. 2) Non Functioning LUE AV 3) ESRD on HD 4) Hypercalemia- stable 5) MBD of CKD HD today MWF Schedule Possible OR today Need New PC Unable to declot AVF Discussed with Dr Francisco Consultation Date/Type/Reason Admit Date/Time Jun 13, 2018 at 00:07 Type of Consult Nephrology Date/Time of Note DATE: 06/20/18 TIME: 19:37 Hx of Present Illness Awaiting HD Planned for PC tomorrow Constitutional: No requiring O2 Exam/Review of Systems Vital Signs Vitals Vital Signs Date Temp Pulse Resp B/P (MAP) Pulse Ox O2 O2 Flow FiO2 Time Delivery Rate 06/20/18 97.9 80 16 108/54 98 14:35 (72) 06/18/18 Room Air 14:35 Intake and Output 06/19/18 06/19/18 06/20/18 1414:59 22:59 06:59 IntakeIntake Total 1080 ml 320 ml 480 ml BalanceBalance 1080 ml 320 ml 480 ml Exam Constitutional: No distress ENMT: mucosa pink and moist Respiratory: No labored breathing Cardiovascular: regular rate and rhythm, edema (Trace) Gastrointestinal: soft; No distended Musculoskeletal: nl extremities to inspection 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: BRANCH LEAD II-XII intact; No lethargic Labs Result Diagram: 06/17/1851106/17/18511 Medications Medications Current Medications Acetaminophen (Tylenol Tab) 650 mg Q6H PRN PO MILD PAIN(1-3)OR ELEVATED TEMP; Start 06/13/18 at 02:00 Naproxen (Naprosyn) 500 mg BID PRN PO PAIN AND/OR INFLAMMATION Last administered on 06/17/18at 11:12; Admin Dose 500 MG; Start 06/13/18 at 02:00 Sevelamer Carbonate (Renvela) 800 mg WITH MEALS PO Last administered on 06/20at 17:29; Admin Dose 800 MG; Start 06/13/18 at 08:00 Zolpidem Tartrate (Ambien) 10 mg QHS PRN PO INSOMNIA; Start 06/13/18 at 02:00 Morphine Sulfate (morphine) 2 mg Q4H PRN IV SEVERE PAIN LEVEL 7-10 Last administered on 06/20/18at 17:30; Admin Dose 2 MG; Start 06/13/18 at 05:30 Albumin Human 100 ml @ 100 mls/hr WITH DIALYSIS PRN IV SBP <90 DURING DIALYSIS Last administered on 06/15/18 21:47; Admin Dose 100 MLS/HR; Start 06/13/18 at 15:30 Heparin Sodium (Porcine) (Heparin (1000 Units/ml)) 3,200 unit AFTER DIALYSIS CATHETER Last administered on 06/17/18 15:11; Admin Dose 3,200 UNIT; Start 06/13/18 at 16:30 Ondansetron HCl (Zofran Inj) 4 mg Q4H PRN IV NAUSEA AND/OR VOMITING Last admin istered on 06/17/18 10:59; Admin Dose 4 MG; Start 06/14/18 at 13:30 Calcitriol (Rocaltrol) 0.25 mcg QHS PO Last administered on 06/19/18 20:00; Admin Dose 0.25 MCG; Start 06/15/18 at 21:00 Calcium Carbonate (Tums) 500 mg PC MEALS PO Last administered on 06/20/18 08:33; Admin Dose 500 MG; Start 06/16/18 at 19:00 Diphenhydramine HCl (Benadryl) 50 mg Q6H PRN IV ITCHING Last administered on 06/20/18 18:24; Admin Dose 50 MG; Start 06/18/18 at 17:30 JUANJO TATUM MD Jun 20, 2018 19:38
[2018-06-20 19:41] VITALS: BP 102/62; PULSE 72; RESP 18
--- NOTE | 2018-06-20 21:48 | PN ---
Date/Time of Note Date/Time of Note DATE: 06/20/18 TIME: 21:46 Assessment/Plan Lines/Catheters IV Catheter Type (from [facility]): Q-cath Stephen in Place (from [facility]): No Assessment/Plan Chief Complaint/Hosp Course -End-stage renal disease and central stenosis: It seems the patient has had longstanding history of end-stage renal disease over the past 9 years and now schuster s a malfunctioning of left upper extremity fistula with a questionable line sepsis. At the moment on our examination, there is no significant erythema other than some dermatitis around the catheter insertion site and some clear drainage. From the standpoint of this catheter being infected, we removed this catheter and send the tip for culture. In the meantime, as the patient had central stenosis given her extensive past medical history of multiple chest wall catheter placements concern for losing her central access was there. Therefore, we maintained her access with a Perez catheter for now until blood and catheter tip cultures return -S/P Central venogram and venoplasty -S/P Removal- perm catheter -S/P Quintoin catheter placement -Catheter tip culture without growth. Will schedule for perm catheter placement. labor training manager had no availability today. -Will plan to workup the patient for eventual access creation as she recovers through this hospitalization. This will be scheduled as outpt -Discussed findings, plan and management with the patient and the primary service and they understand. A certified personnel assistant was present. -Optimize vascular status (BP meds, diet, nutrition, exercise, sugar control). -Thank you for allowing us to participate in the care of your patient. Please call us if you have any questions. Subjective 24 Hr Interval Summary no new vascular events overnight Constitutional: no complaints Exam/Review of Systems Vital Signs Vitals Vital Signs Date Temp Pulse Resp B/P (MAP) Pulse Ox O2 O2 Flow FiO2 Time Delivery Rate 06/20/18 98.2 72 18 102/62 100 19:41 (75) 06/18/18 Room Air 14:35 Intake and Output 06/19/18 06/19/18 06/20/18 1515:00 23:00 07:00 IntakeIntake Total 1080 ml 320 ml 480 ml BalanceBalance 1080 ml 320 ml 480 ml Exam Free Text/Dictation GENERAL: Alert and oriented x3 HEENT: Normocephalic, atraumatic. Mucosa moist. Alopecia. NECK: Supple, no carotid bruit. CARDIOVASCULAR: Surgical scar well healed. right chest Perez, no pus or erythema PULMONARY: Clear breath sounds bilaterally and superficial veins upon her left chest wall and her mid sternum. CARDIOVASCULAR: S1, S2 present. No murmurs. ABDOMEN: Soft, nontender, nondistended. Bowel sounds positive. Bilateral tattoos in the lower quadrants. LOWER EXTREMITIES: - Right lower extremity palpable femoral pulse, palpable pedal pulse. Motor and sensory intact. Capillary refill 3 seconds. - Left lower extremity palpable femoral pulse, palpable pedal pulse. Motor and sensory intact. Capillary refill 3 seconds. - Left upper extremity palpable brachial pulse. Motor and sensory intact. Capillary refill 3 seconds. Fistula that is without any bruit or thrill. - Right upper extremity palpable brachial pulse. Motor and sensory intact. Capillary refill 3 seconds. Results Result Diagram: 06/17/1851106/17/18511 MIMI CORONEL MD Jun 20, 2018 21:48
[2018-06-20] MEDS: CALCITRIOL 0.25 MCG CAP PO SCH (22:11)
[2018-06-21] VITALS (17 sets, daily range): BP systolic 84–101; BP diastolic 49–73; PULSE 61–102; RESP 16–24
[2018-06-21] MEDS: DIPHENHYDRAMINE 50 MG INJ IV PRN ×4 (00:26→18:26)
[2018-06-21] MEDS: CALCIUM CARBONATE 500 MG CHEW TAB PO SCH ×3 (08:48→18:24)
[2018-06-21] MEDS: SEVELAMER CARBONATE 800 MG TABLET PO SCH ×3 (08:48→17:48)
--- NOTE | 2018-06-21 09:04 | CONS ---
Assessment/Plan Assessment/Plan Assessment/Plan (Daily) 1) Catheter related infection, Exit site infection, No bacteremia. 2) Non Functioning LUE AV 3) ESRD on HD 4) Hypercalemia- stable 5) MBD of CKD Plan; Yesterday HD could not be done on time, currenlty getting HD in AM, pt regular schedule for HD is MWF< will plan for HD tomorrow also dr. Franco to decide for Permacath, ID cleared pt for permacath IV abx as per ID will follow up Consultation Date/Type/Reason Admit Date/Time Jun 13, 2018 at 00:07 Initial Consult Date 06/14/18 Type of Consult NEPHROLOGY Requesting Provider: ERICK ROBERTSON Date/Time of Note DATE: 06/21/18 TIME: 09:04 Exam/Review of Systems Exam Vitals Vital Signs Date Temp Pulse Resp B/P (MAP) Pulse Ox O2 O2 Flow FiO2 Time Delivery Rate 06/21/18 97.9 83 16 92/63 (73) 97 07:25 06/18/18 Room Air 14:35 Intake and Output 06/20/18 06/20/18 06/21/18 1515:00 23:00 07:00 IntakeIntake Total 600 ml 360 ml 120 ml BalanceBalance 600 ml 360 ml 120 ml Results Result Diagram: 06/21/188 06/21/18 0438 Results 24hrs Laboratory Tests Test 06/21/18 04:38 White Blood Count 4.9 Red Blood Count 3.03 L Hemoglobin 9.9 L Hematocrit 30.6 L Mean Corpuscular Volume 101.0 Mean Corpuscular Hemoglobin 32.7 Mean Corpuscular Hemoglobin Concent 32.4 Red Cell Distribution Width 13.2 Platelet Count 88 #L Mean Platelet Volume 12.4 H Immature Granulocytes % 0.400 Neutrophils % 54.5 Lymphocytes % 30.3 Monocytes % 7.7 Eosinophils % 6.1 Basophils % 1.0 Nucleated Red Blood Cells % 0.0 Immature Granulocytes # 0.020 Neutrophils # 2.7 Lymphocytes # 1.5 Monocytes # 0.4 Eosinophils # 0.3 Basophils # 0.1 Nucleated Red Blood Cells # 0.0 Sodium Level 143 Potassium Level 5.2 H Chloride Level 105 Carbon Dioxide Level 17 L Anion Gap 21 H Blood Urea Nitrogen 83 H Creatinine 15.75 H Est Glomerular Filtrat Rate mL/min 3 L Glucose Level 67 L Calcium Level 9.7 Medications Medication Current Medications Acetaminophen (Tylenol Tab) 650 mg Q6H PRN PO MILD PAIN(1-3)OR ELEVATED TEMP; Start 06/13/18 at 02:00 Naproxen (Naprosyn) 500 mg BID PRN PO PAIN AND/OR INFLAMMATION Last administered on 06/17/18 11:12; Admin Dose 500 MG; Start 06/13/18 at 02:00 Sevelamer Carbonate (Renvela) 800 mg WITH MEALS PO Last administered on 06/21/18 08:48; Admin Dose 800 MG; Start 06/13/18 at 08:00 Zolpidem Tartrate (Ambien) 10 mg QHS PRN PO INSOMNIA; Start 06/13/18 at 02:00 Morphine Sulfate (morphine) 2 mg Q4H PRN IV SEVERE PAIN LEVEL 7-10 Last administered on 06/20/18 21:55; Admin Dose 2 MG; Start 06/13/18 at 05:30 Albumin Human 100 ml @ 100 mls/hr WITH DIALYSIS PRN IV SBP <90 DURING DIALYSIS Last administered on 06/15/18 21:47; Admin Dose 100 MLS/HR; Start 06/13/18 at 15:30 Heparin Sodium (Porcine) (Heparin (1000 Units/ml)) 3,200 unit AFTER DIALYSIS CATHETER Last administered on 06/17/18 15:11; Admin Dose 3,200 UNIT; Start 06/13/18 at 16:30 Ondansetron HCl (Zofran Inj) 4 mg Q4H PRN IV NAUSEA AND/OR VOMITING Last administered on 06/17/18 10:59; Admin Dose 4 MG; Start 06/14/18 at 13:30 Calcitriol (Rocaltrol) 0.25 mcg QHS PO Last administered on 06/20/18 22:11; Admin Dose 0.25 MCG; Start 06/15/18 at 21:00 Calcium Carbonate (Tums) 500 mg PC MEALS PO Last administered on 06/21/18 08:48; Admin Dose 500 MG; Start 06/16/18 at 19:00 Diphenhydramine HCl (Benadryl) 50 mg Q6H PRN IV ITCHING Last administered on 06/21/18 06:23; Admin Dose 50 MG; Start 06/18/18 at 17:30 HENRIQUE GRANADO MD Jun 21, 2018 09:04
[2018-06-21] MEDS: HEPARIN 1000 UNITS/ML 10 ML INJ CATHETER SCH (10:45)
[2018-06-21] MEDS: morphine 2 MG INJ IV PRN ×2 (10:53→15:12)
--- NOTE | 2018-06-21 14:51 | PN ---
Date/Time of Note Date/Time of Note DATE: 06/21/18 TIME: 14:51 Assessment/Plan VTE Prophylaxis Risk score (from Ns)>0 risk: 2 SCD applied (from Nsg): Yes Lines/Catheters IV Catheter Type (from Nrs): olivia cath Urinary Cath still in place: No Assessment/Plan Assessment/Plan ossible line sepsis, follow-up on blood cultures from the catheter, continue broad-spectrum antibiotics. Dr. Arora is following in infection disease consultation. -Hemodialysis dependent end-stage renal disease. Dr. Omalley is following in nephrology consultation. -History of hyperparathyroidism, status post subtotal parathyroidectomy of the right superior and inferior glands, partial left inferior gland in June 2016. Status post left upper and lower parathyroidectomy and partial left thyroid lobectomy in November [address] Morales, ENT. Dr. De La Fuente is following in endocrinology consultation. -Left chest hemodialysis catheter present on admission, discontinued. -Left upper extremity AV fistula nonfunctioning, Dr. Francisco is following in vascular surgery consultation. -Status post right chest Olivia catheter placement Result Diagram: 06/21/18 0438 06/21/18 0438 Results 24hrs Laboratory Tests Test 06/21/18 04:38 06/21/18 11:05 White Blood Count 4.9 Red Blood Count 3.03 L Hemoglobin 9.9 L Hematocrit 30.6 L Mean Corpuscular Volume 101.0 Mean Corpuscular Hemoglobin 32.7 Mean Corpuscular Hemoglobin Concent 32.4 Red Cell Distribution Width 13.2 Platelet Count 88 #L Mean Platelet Volume 12.4 H Immature Granulocytes % 0.400 Neutrophils % 54.5 Lymphocytes % 30.3 Monocytes % 7.7 Eosinophils % 6.1 Basophils % 1.0 Nucleated Red Blood Cells % 0.0 Immature Granulocytes # 0.020 Neutrophils # 2.7 Lymphocytes # 1.5 Monocytes # 0.4 Eosinophils # 0.3 Basophils # 0.1 Nucleated Red Blood Cells # 0.0 Sodium Level 143 Potassium Level 5.2 H Chloride Level 105 Carbon Dioxide Level 17 L Anion Gap 21 H Blood Urea Nitrogen 83 H Creatinine 15.75 H Est Glomerular Filtrat Rate mL/min 3 L Glucose Level 67 L Calcium Level 9.7 Lab Scanned Report REFERENCE LAB Exam/Review of Systems Exam Vitals Vital Signs Date Temp Pulse Resp B/P (MAP) Pulse Ox O2 O2 Flow FiO2 Time Delivery Rate 2/26/19 98.1 87 16 85/49 (61) 100 14:15 06/21/18 Room Air 09:24 Intake and Output 06/20/18 06/20/18 06/21/18 1414:59 22:59 06:59 IntakeIntake Total 600 ml 360 ml 120 ml BalanceBalance 600 ml 360 ml 120 ml Results Results 24hrs Laboratory Tests Test 06/21/18 04:38 06/21/18 11:05 White Blood Count 4.9 Red Blood Count 3.03 L Hemoglobin 9.9 L Hematocrit 30.6 L Mean Corpuscular Volume 101.0 Mean Corpuscular Hemoglobin 32.7 Mean Corpuscular Hemoglobin Concent 32.4 Red Cell Distribution Width 13.2 Platelet Count 88 #L Mean Platelet Volume 12.4 H Immature Granulocytes % 0.400 Neutrophils % 54.5 Lymphocytes % 30.3 Monocytes % 7.7 Eosinophils % 6.1 Basophils % 1.0 Nucleated Red Blood Cells % 0.0 Immature Granulocytes # 0.020 Neutrophils # 2.7 Lymphocytes # 1.5 Monocytes # 0.4 Eosinophils # 0.3 Basophils # 0.1 Nucleated Red Blood Cells # 0.0 Sodium Level 143 Potassium Level 5.2 H Chloride Level 105 Carbon Dioxide Level 17 L Anion Gap 21 H Blood Urea Nitrogen 83 H Creatinine 15.75 H Est Glomerular Filtrat Rate mL/min 3 L Glucose Level 67 L Calcium Level 9.7 Lab Scanned Report REFERENCE LAB Medications Medication Current Medications Acetaminophen (Tylenol Tab) 650 mg Q6H PRN PO MILD PAIN(1-3)OR ELEVATED TEMP; Start 06/13/18 at 02:00 Naproxen (Naprosyn) 500 mg BID PRN PO PAIN AND/OR INFLAMMATION Last administered on 06/17/18at 11:12; Admin Dose 500 MG; Start 06/13/18 at 02:00 Sevelamer Carbonate (Renvela) 800 mg WITH MEALS PO Last administered on 06/21/18at 13:04; Admin Dose 800 MG; Start 06/13/18 at 08:00 Zolpidem Tartrate (Ambien) 10 mg QHS PRN PO INSOMNIA; Start 06/13/18 at 02:00 Morphine Sulfate (morphine) 2 mg Q4H PRN IV SEVERE PAIN LEVEL 7-10 Last administered on 06/21/18at 10:53; Admin Dose 2 MG; Start 06/13/18 at 05:30 Albumin Human 100 ml @ 100 mls/hr WITH DIALYSIS PRN IV SBP <90 DURING DIALYSIS Last administered on 06/15/18 21:47; Admin Dose 100 MLS/HR; Start 06/13/18 at 15:30 Heparin Sodium (Porcine) (Heparin (1000 Units/ml)) 3,200 unit AFTER DIALYSIS CATHETER Last administered on 06/21/18 10:45; Admin Dose 3,200 UNIT; Start 06/13/18 at 16:30 Ondansetron HCl (Zofran Inj) 4 mg Q4H PRN IV NAUSEA AND/OR VOMITING Last administered on 06/17/18 10:59; Admin Dose 4 MG; Start 06/14/18 at 13:30 Calcitriol (Rocaltrol) 0.25 mcg QHS PO Last administered on 06/20/18 22:11; Admin Dose 0.25 MCG; Start 06/15/18 at 21:00 Calcium Carbonate (Tums) 500 mg PC MEALS PO Last administered on 06/21/18 13:04; Admin Dose 500 MG; Start 06/16/18 at 19:00 Diphenhydramine HCl (Benadryl) 50 mg Q6H PRN IV ITCHING Last administered on 06/21/18 12:24; Admin Dose 50 MG; Start 06/18/18 at 17:30 EDILMA CASIANO Jun 21, 2018 14:51
--- NOTE | 2018-06-21 15:15 | CONS ---
Assessment/Plan Assessment/Plan Hospital Course (Demo Recall) - recurrent, possible infection of HD catheter site on R chest wall, sp removal and placement of a new Barber catheter. The culture of the tip of the removed catheter, blood cultures and swab of the catheter site were negative. Pt completed an empiric course of renally dosed pip/tazo (06/13/2018-06/18/2018) - biliary cholic, N&E, intermittent: according to Pt, she had received authorization for elective cholecystectomy - s/p MRCP in 07/2017: negative for cholelithiasis or cholecystitis - s/p chills during the dialysis, subjective fever and anorexia prior to admission are concerning for bloodstream infections - h/o placement and removal of HD catheters, according to Pt, she has had 9 epi sodes of HD catheter site/catheter infection - [place] [facility] [place], thrombosed L brachiocephalic AV fistula, 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 Last used for HD in 04/2018 - s/p thrombocytopenia likely d/t linezolid. 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 Her last cycle was about 3 weeks ago - allergy to vancomycin (pruritus) recommendations: - Pt is cleared for placement of a permacath from ID standpoint - monitor Pt off systemic antibiotics. management d/w Pt and CHAGO Cabezas Consultation Date/Type/Reason Admit Date/Time Jun 13, 2018 at 00:07 Initial Consult Date 06/14/18 Type of Consult ID Requesting Provider: ERICK ROBERTSON Date/Time of Note DATE: 06/21/18 TIME: 15:13 24 HR Interval Summary Constitutional: no complaints Detailed Summary Eyes: no complaints ENT: other (+swellinig of the top of the scalp) Respiratory: no complaints Cardiovascular: no complaints, other (+swelling of the chest wall) Gastrointestinal: no complaints Genitourinary: other (on HD) Musculoskeletal: no complaints Skin: no complaints Neurologic: no complaints Exam/Review of Systems Exam Vitals Vital Signs Date Temp Pulse Resp B/P (MAP) Pulse Ox O2 O2 Flow FiO2 Time Delivery Rate 06/21/18 98.1 87 16 85/49 (61) 100 14:15 06/21/18 Room Air 09:24 Intake and Output 06/20/18 06/20/18 06/21/18 1515:00 23:00 07:00 IntakeIntake Total 600 ml 360 ml 120 ml BalanceBalance 600 ml 360 ml 120 ml Constitutional: alert, oriented, well developed Psych: no complaints, nl mood/affect Head: other (alopecia, soft swelling of the scalp at the top of the head, non- TTP) Eyes: nl conjunctiva, nl lids ENMT: nl external ears & nose, nl nasal mucosa & septum Neck: supple; No non-tender Respiratory: clear to auscultation, normal air movement, other (soft tissue swelling of the chest wall without tenderness or erythema) Cardiovascular: regular rate and rhythm, nl pulses, other (AVF in LUE) Musculoskeletal: nl extremities to inspection Extremities: other (AVF in LUE); No edema 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: EXCELSIOR MACHINE TENDER II-XII intact, nl mental status, nl speech, nl strength Skin: nl turgor; No rash or lesions Results Result Diagram: 06/21/1843706/21/18 0438 Results 24hrs Laboratory Tests Test 06/21/18 04:38 06/21/18 11:05 White Blood Count 4.9 Red Blood Count 3.03 L Hemoglobin 9.9 L Hematocrit 30.6 L Mean Corpuscular Volume 101.0 Mean Corpuscular Hemoglobin 32.7 Mean Corpuscular Hemoglobin Concent 32.4 Red Cell Distribution Width 13.2 Platelet Count 88 #L Mean Platelet Volume 12.4 H Immature Granulocytes % 0.400 Neutrophils % 54.5 Lymphocytes % 30.3 Monocytes % 7.7 Eosinophils % 6.1 Basophils % 1.0 Nucleated Red Blood Cells % 0.0 Immature Granulocytes # 0.020 Neutrophils # 2.7 Lymphocytes # 1.5 Monocytes # 0.4 Eosinophils # 0.3 Basophils # 0.1 Nucleated Red Blood Cells # 0.0 Sodium Level 143 Potassium Level 5.2 H Chloride Level 105 Carbon Dioxide Level 17 L Anion Gap 21 H Blood Urea Nitrogen 83 H Creatinine 15.75 H Est Glomerular Filtrat Rate mL/min 3 L Glucose Level 67 L Calcium Level 9.7 Lab Scanned Report REFERENCE LAB Medications Medication Current Medications Acetaminophen (Tylenol Tab) 650 mg Q6H PRN PO MILD PAIN(1-3)OR ELEVATED TEMP; Start 06/13/18 at 02:00 Naproxen (Naprosyn) 500 mg BID PRN PO PAIN AND/OR INFLAMMATION Last administe red on 06/17/18 11:12; Admin Dose 500 MG; Start 06/13/18 at 02:00 Sevelamer Carbonate (Renvela) 800 mg WITH MEALS PO Last administered on 06/21/18 13:04; Admin Dose 800 MG; Start 06/13/18 at 08:00 Zolpidem Tartrate (Ambien) 10 mg QHS PRN PO INSOMNIA; Start 06/13/18 at 02:00 Morphine Sulfate (morphine) 2 mg Q4H PRN IV SEVERE PAIN LEVEL 7-10 Last administered on 06/21/18 10:53; Admin Dose 2 MG; Start 06/13/18 at 05:30 Albumin Human 100 ml @ 100 mls/hr WITH DIALYSIS PRN IV SBP <90 DURING DIALYSIS Last administered on 06/15/18 21:47; Admin Dose 100 MLS/HR; Start 06/13/18 at 15:30 Heparin Sodium (Porcine) (Heparin (1000 Units/ml)) 3,200 unit AFTER DIALYSIS CATHETER Last administered on 06/21/18 10:45; Admin Dose 3,200 UNIT; Start 06/13/18 at 16:30 Ondansetron HCl (Zofran Inj) 4 mg Q4H PRN IV NAUSEA AND/OR VOMITING Last administered on 06/17/18 10:59; Admin Dose 4 MG; Start 06/14/18 at 13:30 Calcitriol (Rocaltrol) 0.25 mcg QHS PO Last administered on 06/20/18 22:11; Admin Dose 0.25 MCG; Start 06/15/18 at 21:00 Calcium Carbonate (Tums) 500 mg PC MEALS PO Last administered on 06/21/18 13:04; Admin Dose 500 MG; Start 06/16/18 at 19:00 Diphenhydramine HCl (Benadryl) 50 mg Q6H PRN IV ITCHING Last administered on 06/21/18at 12:24; Admin Dose 50 MG; Start 06/18/18 at 17:30 GINGER HARDIN M.D. Jun 21, 2018 15:15
--- NOTE | 2018-06-21 17:03 | PN ---
Date/Time of Note Date/Time of Note DATE: 06/21/18 TIME: 16:58 Assessment/Plan Lines/Catheters IV Catheter Type (from [facility]): olivia cath Stephen in Place (from [facility]): No Assessment/Plan Chief Complaint/Hosp Course -End-stage renal disease and central stenosis: It seems the patient has had longstanding history of end-stage renal disease over the past 9 years and now has a malfunctioning of left upper extremity fistula with a questionable line sepsis. At the moment on our examination, there is no significant erythema other than some dermatitis around the catheter insertion site and some clear drainage. From the standpoint of this catheter being infected, we removed this catheter and send the tip for culture. In the meantime, as the patient had central stenosis given her extensive past medical history of multiple chest wall catheter placements concern for losing her central access was there. Therefore, we maintained her access with a Olivia catheter for now until blood and catheter tip cultures return -S/P Central venogram and venoplasty -S/P Removal- perm catheter -S/P Quintoin catheter placement -Catheter tip culture without growth. Will reschedule for perm catheter placement patient does not want perm catheter placed today. (explained on multiple occasions what she has now is a olivia catheter which is temporary and not laborer marine terminal solution. Multiple images and diagrams and [place] information/educational information were provided from [employer] website for her and reviewed with certified lawn service manager explaining all the risks and benefits to the patient. Unfortunately, it seems she has had bad experiences with her multiple previous catheters and is scared to have another placed -Will plan to workup the patient for eventual access creation as she recovers through this hospitalization. This will be scheduled as outpt -Discussed findings, plan and management with the patient and the primary service and they understand. A certified lawn service manager was present. -Optimize vascular status (BP meds, diet, nutrition, exercise, sugar control). -Thank you for allowing us to participate in the care of your patient. Please call us if you have any questions. Subjective 24 Hr Interval Summary no new vascular events overnight. patient does not want to have perm catheter placed today Exam/Review of Systems Vital Signs Vitals Vital Signs Date Temp Pulse Resp B/P (MAP) Pulse Ox O2 O2 Flow FiO2 Time Delivery Rate 06/21/18 98.1 87 16 85/49 (61) 100 14:15 06/21/18 Room Air 09:24 Intake and Output 06/20/18 06/20/18 06/21/18 1515:00 23:00 07:00 IntakeIntake Total 600 ml 360 ml 120 ml BalanceBalance 600 ml 360 ml 120 ml Exam Free Text/Dictation GENERAL: Alert and oriented x3 HEENT: Normocephalic, atraumatic. Mucosa moist. Alopecia. NECK: Supple, no carotid bruit. CARDIOVASCULAR: Surgical scar well healed. right chest Olivia, no pus or erythema PULMONARY: Clear breath sounds bilaterally and superficial veins upon her left chest wall and her mid sternum. CARDIOVASCULAR: S1, S2 present. No murmurs. ABDOMEN: Soft, nontender, nondistended. Bowel sounds positive. Bilateral tattoos in the lower quadrants. LOWER EXTREMITIES: - Right lower extremity palpable femoral pulse, palpable pedal pulse. Motor and sensory intact. Capillary refill 3 seconds. - Left lower extremity palpable femoral pulse, palpable pedal pulse. Motor and sensory intact. Capillary refill 3 seconds. - Left upper extremity palpable brachial pulse. Motor and sensory intact. Capillary refill 3 seconds. Fistula that is without any bruit or thrill. - Right upper extremity palpable brachial pulse. Motor and sensory intact. Capillary refill 3 seconds. Results Result Diagram: 06/21/188 06/21/18 0438 MIMI CORONEL MD Jun 21, 2018 17:03
[2018-06-21] MEDS: CALCITRIOL 0.25 MCG CAP PO SCH (20:43)
[2018-06-22] VITALS (18 sets, daily range): BP systolic 73–105; BP diastolic 47–80; PULSE 69–117; RESP 16–18
[2018-06-22] MEDS: DIPHENHYDRAMINE 50 MG INJ IV PRN ×4 (01:36→19:44)
[2018-06-22] MEDS: morphine 2 MG INJ IV PRN ×4 (01:37→19:44)
[2018-06-22] MEDS: CALCIUM CARBONATE 500 MG CHEW TAB PO SCH ×3 (08:44→18:34)
[2018-06-22] MEDS: SEVELAMER CARBONATE 800 MG TABLET PO SCH ×3 (08:44→17:43)
--- NOTE | 2018-06-22 09:00 | CONS ---
Assessment/Plan Assessment/Plan Assessment/Plan (Daily) 1) Catheter related infection, Exit site infection, No bacteremia. 2) Non Functioning LUE AV 3) ESRD on HD 4) Hypercalemia- stable 5) MBD of CKD Plan; plan for permcath placement, tomorrow, s/p Hd yesterday 2.5 L removed, plan for HD today ID cleared pt for permacath IV abx as per ID will follow up Consultation Date/Type/Reason Admit Date/Time Jun 13, 2018 at 00:07 Initial Consult Date 06/14/18 Type of Consult NEPHROLOGY Requesting Provider: ERICK ROBERTSON Date/Time of Note DATE: 06/22/18 TIME: 09:00 24 HR Interval Summary Free Text/Dictation plan for permcath placement, tomorrow, s/p Hd yesterday 2.5 L removed, plan for HD today Exam/Review of Systems Exam Vitals Vital Signs Date Temp Pulse Resp B/P (MAP) Pulse Ox O2 O2 Flow FiO2 Time Delivery Rate 06/22/18 98.4 79 16 85/47 (60) 98 08:00 06/21/18 Room Air 09:24 Intake and Output 06/21/18 06/21/18 06/22/18 1515:00 23:00 07:00 IntakeIntake Total 560 ml 480 ml OutputOutput Total 2900 ml BalanceBalance -2340 ml 480 ml Exam Constitutional: alert, oriented, well developed Psych: no complaints, nl mood/affect Head: other (alopecia, soft swelling of the scalp at the top of the head, non- TTP) Eyes: nl conjunctiva, nl lids ENMT: nl external ears & nose, nl nasal mucosa & septum Neck: supple; Respiratory: clear to auscultation, normal air movement, other (soft tissue swelling of the chest wall without tenderness or erythema) Cardiovascular: regular rate and rhythm, nl pulses, other (AVF in LUE) Musculoskeletal: nl extremities to inspection Extremities: other (AVF in LUE); no edema, no clubbing 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: [employer] II-XII intact, nl mental status, nl speech, nl strength Skin: nl turgor; Results Result Diagram: 06/22/18 0430 06/22/18 0430 Results 24hrs Laboratory Tests Test 06/21/18 11:05 06/22/18 04:30 Lab Scanned Report REFERENCE LAB White Blood Count 5.5 Red Blood Count 3.34 L Hemoglobin 11.0 L Hematocrit 34.1 L Mean Corpuscular Volume 102.1 H Mean Corpuscular Hemoglobin 32.9 Mean Corpuscular Hemoglobin Concent 32.3 Red Cell Distribution Width 13.2 Platelet Count 92 L Mean Platelet Volume 11.7 H Immature Granulocytes % 0.400 Neutrophils % 65.6 Lymphocytes % 22.8 Monocytes % 6.7 Eosinophils % 3.8 Basophils % 0.7 Nucleated Red Blood Cells % 0.0 Immature Granulocytes # 0.020 Neutrophils # 3.6 Lymphocytes # 1.3 Monocytes # 0.4 Eosinophils # 0.2 Basophils # 0.0 Nucleated Red Blood Cells # 0.0 Sodium Level 146 H Potassium Level 4.8 Chloride Level 107 Carbon Dioxide Level 20 L Anion Gap 19 H Blood Urea Nitrogen 51 #H Creatinine 10.23 #H Est Glomerular Filtrat Rate mL/min 4 L Glucose Level 85 Calcium Level 9.8 Ionized Calcium (Measured) 1.2 Medications Medication Current Medications Acetaminophen (Tylenol Tab) 650 mg Q6H PRN PO MILD PAIN(1-3)OR ELEVATED TEMP; Start 06/13/18 at 02:00 Naproxen (Naprosyn) 500 mg BID PRN PO PAIN AND/OR INFLAMMATION Last administered on 06/17/18 11:12; Admin Dose 500 MG; Start 06/13/18 at 02:00 Sevelamer Carbonate (Renvela) 800 mg WITH MEALS PO Last administered on 06/22/18 08:44; Admin Dose 800 MG; Start 06/13/18 at 08:00 Zolpidem Tartrate (Ambien) 10 mg QHS PRN PO INSOMNIA; Start 06/13/18 at 02:00 Morphine Sulfate (morphine) 2 mg Q4H PRN IV SEVERE PAIN LEVEL 7-10 Last administered on 06/22/18 07:35; Admin Dose 2 MG; Start 06/13/18 at 05:30 Albumin Human 100 ml @ 100 mls/hr WITH DIALYSIS PRN IV SBP <90 DURING DIALYSIS Last administered on 06/15/18 21:47; Admin Dose 100 MLS/HR; Start 06/13/18 at 15:30 Heparin Sodium (Porcine) (Heparin (1000 Units/ml)) 3,200 unit AFTER DIALYSIS CATHETER Last administered on 06/21/18 10:45; Admin Dose 3,200 UNIT; Start 06/13/18 at 16:30 Ondansetron HCl (Zofran Inj) 4 mg Q4H PRN IV NAUSEA AND/OR VOMITING Last administered on 06/17/18 10:59; Admin Dose 4 MG; Start 06/14/18 at 13:30 Calcitriol (Rocaltrol) 0.25 mcg QHS PO Last administered on 06/21/18 20:43; Admin Dose 0.25 MCG; Start 06/15/18 at 21:00 Calcium Carbonate (Tums) 500 mg PC MEALS PO Last administered on 06/22/18 08:44; Admin Dose 500 MG; Start 06/16/18 at 19:00 Diphenhydramine HCl (Benadryl) 50 mg Q6H PRN IV ITCHING Last administered on 06/22/18 07:52; Admin Dose 50 MG; Start 06/18/18 at 17:30 HENRIQUE GRANADO MD Jun 22, 2018 09:00
[2018-06-22] MEDS ORDERED: ALBUMIN HUMAN 25% 100 ML IV STA (09:14)
[2018-06-22] MEDS ORDERED: MIDODRINE 5 MG TAB PO STA (09:14)
[2018-06-22] MEDS: PANTOPRAZOLE (EC) 40 MG TAB PO SCH (13:20)
--- NOTE | 2018-06-22 14:19 | PN ---
DATE: 06/22/2018 SUBJECTIVE: The patient denies nausea, vomiting or diarrhea. The patient was seen by Dr. Francisco yesterday and recommended a PermCath placement. She initially had declined, but today, she has agree d and has been scheduled for PermCath tomorrow. The patient has been cleared by ID for PermCath. Bl ood cultures so far have remained negative. PHYSICAL EXAMINATION: GENERAL: Revealed the patient to be awake, alert. VITAL SIGNS: Temperature 98.4, pulse 79, respirations 16, blood pressure 85/47. The patient is asym ptomatic. O2 sat is 98%. HEENT: No eye discharge or redness. NECK: No mass. CHEST: Fairly clear. CARDIOVASCULAR: S1, S2 normal. ABDOMEN: Soft, nondistended, nontender. EXTREMITIES: No leg edema. NEUROLOGIC: The patient is awake, alert, fairly oriented with no gross focal deficit. IMPRESSION: 1. Malfunctioning arteriovenous fistula, currently getting hemodialysis via the Perez catheter. B lood cultures negative. ID has cleared her for PermCath and now, she has agreed to undergo PermCath tomorrow. 2. Tertiary hyperparathyroidism status post surgery. 3. Chronic hypotension, asymptomatic. Continue to monitor. Dictated By: LUANNE WALTER MD AB/NTS Conf#: [id number] DID#: [id number] CC: MUMTAZ LOPEZ MD;*EndCC*
[2018-06-22] MEDS: ALBUMIN HUMAN 25% 100 ML IV PRN (15:31)
--- NOTE | 2018-06-22 17:27 | CONS ---
Assessment/Plan Assessment/Plan Hospital Course (Demo Recall) - recurrent, possible infection of HD catheter site on R chest wall, sp removal and placement of a new Barber catheter. The culture of the tip of the removed catheter, blood cultures and swab of the catheter site were negative. Pt completed an empiric course of renally dosed pip/tazo (06/13/2018-06/18/2018) - biliary cholic, N&E, intermittent: according to Pt, she had received authorization for elective cholecystectomy - s/p MRCP in 07/2017: negative for cholelithiasis or cholecystitis - s/p chills during the dialysis, subjective fever and anorexia prior to admission are concerning for bloodstream infections - h/o placement and removal of HD catheters, according to Pt, she has had 9 epi sodes of HD catheter site/catheter infection - h/o creation of AVF in [facility] in 2016, thrombosed L brachiocephalic AV fistula, 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 Last used for HD in 04/2018 - s/p thrombocytopenia likely d/t linezolid. 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 Her last cycle was about 3 weeks ago - allergy to vancomycin (pruritus) recommendations: - continue to tmonitor Pt off systemic antibiotics. management d/w Pt and her RN Kalpesh Consultation Date/Type/Reason Admit Date/Time Jun 13, 2018 at 00:07 Initial Consult Date 06/14/18 Type of Consult ID Requesting Provider: ERICK ROBERTSON Date/Time of Note DATE: 06/22/18 TIME: 17:25 24 HR Interval Summary Constitutional: no complaints Detailed Summary Eyes: no complaints ENT: other (swelling at the top of the scalp) Respiratory: no complaints, other (+swellinig of the evie wall) Cardiovascular: no complaints Gastrointestinal: no complaints Genitourinary: other (on HD) Musculoskeletal: no complaints Skin: no complaints Neurologic: no complaints Exam/Review of Systems Exam Vitals Vital Signs Date Temp Pulse Resp B/P (MAP) Pulse Ox O2 O2 Flow FiO2 Time Delivery Rate 06/22/18 100 17:10 06/22/18 18 85/59 (68) Room Air 15:10 06/22/18 98.6 98 13:28 Intake and Output 06/21/18 06/21/18 06/22/18 1414:59 22:59 06:59 IntakeIntake Total 560 ml 480 ml OutputOutput Total 2900 ml BalanceBalance -2340 ml 480 ml Constitutional: alert, oriented, well developed Psych: no complaints, nl mood/affect Head: normocephalic, other (alopecia, Pt did not take his morin off) Eyes: nl conjunctiva, nl lids ENMT: nl external ears & nose, nl nasal mucosa & septum Neck: supple; No non-tender Respiratory: clear to auscultation, normal air movement, other (+soft tissue is slightly swollen on the chest wall) Cardiovascular: regular rate and rhythm, nl pulses Gastrointestinal: soft, non-tender Musculoskeletal: nl extremities to inspection Extremities: No edema 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: [employer] II-XII intact, nl mental status, nl speech Skin: nl turgor, other (HD catheter site is intact); No rash or lesions Results Result Diagram: 06/22/18 0430 06/22/18 0430 Results 24hrs Laboratory Tests Test 06/22/18 04:30 White Blood Count 5.5 Red Blood Count 3.34 L Hemoglobin 11.0 L Hematocrit 34.1 L Mean Corpuscular Volume 102.1 H Mean Corpuscular Hemoglobin 32.9 Mean Corpuscular Hemoglobin Concent 32.3 Red Cell Distribution Width 13.2 Platelet Count 92 L Mean Platelet Volume 11.7 H Immature Granulocytes % 0.400 Neutrophils % 65.6 Lymphocytes % 22.8 Monocytes % 6.7 Eosinophils % 3.8 Basophils % 0.7 Nucleated Red Blood Cells % 0.0 Immature Granulocytes # 0.020 Neutrophils # 3.6 Lymphocytes # 1.3 Monocytes # 0.4 Eosinophils # 0.2 Basophils # 0.0 Nucleated Red Blood Cells # 0.0 Sodium Level 146 H Potassium Level 4.8 Chloride Level 107 Carbon Dioxide Level 20 L Anion Gap 19 H Blood Urea Nitrogen 51 #H Creatinine 10.23 #H Est Glomerular Filtrat Rate mL/min 4 L Glucose Level 85 Calcium Level 9.8 Ionized Calcium (Measured) 1.2 Medications Medication Current Medications Acetaminophen (Tylenol Tab) 650 mg Q6H PRN PO MILD PAIN(1-3)OR ELEVATED TEMP; Start 06/13/18 at 02:00 Naproxen (Naprosyn) 500 mg BID PRN PO PAIN AND/OR INFLAMMATION Last administered on 06/17/18 11:12; Admin Dose 500 MG; Start 06/13/18 at 02:00 Sevelamer Carbonate (Renvela) 800 mg WITH MEALS PO Last administered on 06/22/18 13:05; Admin Dose 800 MG; Start 06/13/18 at 08:00 Zolpidem Tartrate (Ambien) 10 mg QHS PRN PO INSOMNIA; Start 06/13/18 at 02:00 Morphine Sulfate (morphine) 2 mg Q4H PRN IV SEVERE PAIN LEVEL 7-10 Last admin istered on 06/22/18 11:39; Admin Dose 2 MG; Start 06/13/18 at 05:30 Albumin Human 100 ml @ 100 mls/hr WITH DIALYSIS PRN IV SBP <90 DURING DIALYSIS Last administered on 06/22/18 15:31; Admin Dose 100 MLS/HR; Start 06/13/18 at 15:30 Heparin Sodium (Porcine) (Heparin (1000 Units/ml)) 3,200 unit AFTER DIALYSIS CATHETER Last administered on 06/21/18 10:45; Admin Dose 3,200 UNIT; Start 06/13/18 at 16:30 Ondansetron HCl (Zofran Inj) 4 mg Q4H PRN IV NAUSEA AND/OR VOMITING Last administered on 06/17/18 10:59; Admin Dose 4 MG; Start 06/14/18 at 13:30 Calcitriol (Rocaltrol) 0.25 mcg QHS PO Last administered on 06/21/18 20:43; Admin Dose 0.25 MCG; Start 06/15/18 at 21:00 Calcium Carbonate (Tums) 500 mg PC MEALS PO Last administered on 06/22/18 13:05; Admin Dose 500 MG; Start 06/16/18 at 19:00 Diphenhydramine HCl (Benadryl) 50 mg Q6H PRN IV ITCHING Last administered on 06/22/18at 14:09; Admin Dose 50 MG; Start 06/18/18 at 17:30 Pantoprazole (Protonix Tab) 40 mg DAILY@06 PO Last administered on 06/22/18at 13:20; Admin Dose 40 MG; Start 06/22/18 at 06:00 GINGER HARDIN M.D. Jun 22, 2018 17:27
[2018-06-22] MEDS: HEPARIN 1000 UNITS/ML 10 ML INJ CATHETER SCH (18:25)
[2018-06-22] MEDS ORDERED: MIDODRINE 2.5 MG TAB PO ONE (18:30)
[2018-06-22] MEDS ORDERED: MIDODRINE 5 MG TAB PO ONE (18:30)
[2018-06-22] MEDS: CALCITRIOL 0.25 MCG CAP PO SCH (21:06)
[2018-06-23] VITALS (10 sets, daily range): BP systolic 69–102; BP diastolic 38–51; PULSE 86–107; RESP 16–18
[2018-06-23] MEDS: DIPHENHYDRAMINE 50 MG INJ IV PRN ×4 (02:02→20:11)
[2018-06-23] MEDS: morphine 2 MG INJ IV PRN ×2 (02:45→18:51)
[2018-06-23] MEDS: PANTOPRAZOLE (EC) 40 MG TAB PO SCH (05:51)
[2018-06-23] MEDS ORDERED: HEPARIN 1000 UNITS/NS (A-LINE) 1,000 ML ONE (07:15)
[2018-06-23] MEDS ORDERED: LIDOCAINE 1% (MDV) 20 ML INJ ONE (07:15)
[2018-06-23] MEDS ORDERED: IODIXANOL LOCM 100 ML BTL ONE (07:15)
[2018-06-23] MEDS ORDERED: HEPARIN 1000 UNITS/ML 10 ML INJ ONE (07:15)
[2018-06-23] MEDS ORDERED: MIDAZOLAM 1 MG/ML 2 ML INJ ONE (07:16)
[2018-06-23] MEDS ORDERED: FENTAnyl 50 MCG/ML VIAL ONE (07:16)
[2018-06-23] MEDS ORDERED: CEFAZOLIN 1 GM/50 ML (PMX) 100 ML IVPB ONE (07:39)
[2018-06-23] MEDS ORDERED: ONDANSETRON 4 MG INJ ONE (07:55)
--- NOTE | 2018-06-23 08:00 | HPN ---
Date/Time of Note Date/Time of Note DATE: 06/23/18 TIME: 08:00 Interval H&P Admission Note Pt. seen H&P reviewed: No system changes MIMI CORONEL MD Jun 23, 2018 08:00
--- NOTE | 2018-06-23 08:31 | OPR ---
DATE OF OPERATION: 06/23/2018 PREOPERATIVE DIAGNOSIS: End-stage renal disease and central stenosis. POSTOPERATIVE DIAGNOSIS: End-stage renal disease and central stenosis. ANESTHESIA: Local with moderate sedation. ESTIMATED BLOOD LOSS: Minimal. COMPLICATIONS: None. HEPARIN: As recorded. CONTRAST: As recorded. ACCESS: Right internal jugular vein. CLOSURE: Manual compression 3-0 nylon suture. SEDATION: Under physician supervision, moderate sedation was administered intravenously under contin uous monitoring by the interventional team and attending physician. Pulse oximeter, heart rate and b lood pressures were continuously monitored by interventional surgeon. The physician spent time was 4 5 minutes of tjgu-us-ofih sedation time with the patient. INDICATIONS: This is a 32-year-old female with plethora medical conditions who has currently been tr eated with leukemia, last chemo cycle was about 4 weeks ago and also has end-stage renal disease for the past 9 years. Apparently, the patient has had multiple bilateral upper chest wall, catheters hav e been placed and 3 weeks ago she had a new one placed in the right chest wall. Apparently the patie nt had presented with nausea, vomiting and fever and subsequently an evaluation for possible line sep sis was there. Subsequently, her Mufo-V-Fbbjlahy was removed and the catheter tip was sent for cultu re, which was negative. She has been treated appropriately with antibiotics course and at this point , she had not have any findings of clinical erythema or purulent drainage from the catheter site, the refore, decision was made to place a new Vahb-W-Rtvmcevo instead of her Perez at the moment. The r isks, benefits and alternatives were discussed with the patient. She understood all that is involved and agreed to proceed. Risks including but not limited to bleeding, thrombosis, embolization, myoca rdial infarction, , stroke, device malfunction, infection, nephrotoxicity, and the patient agree d to proceed. PROCEDURES: 1. Introduction of catheter into the SVC. 2. SVC venogram. 3. Venoplasty of the right internal jugular vein, right brachiocephalic vein, and proximal superior vena cava using a 12 x 40 mm balloon. 4. Removal of a Perez catheter. 5. Fmuk-A-Ajicpbkw placement. DESCRIPTION OF PROCEDURE: The patient was brought into the angio suite and positioned in supine posi tion on laparoscopic table. Sedation was administered without any complications. The right chest wa ll and neck were then shaved, prepped and draped in usual sterile maximal fashion (sterile gowns, kaveh ves, draping and chlorhexidine). A timeout appropriate site was marked and confirmed. Local anesthe zuhair was then infiltrated in the region of the right chest wall where her Perez catheter was inserte d through the previous tunnel site. At this point, the catheter was pulled back to the puncture site of the right internal jugular vein and a central venogram of the SVC was then performed. At this po int, it was identified the patient has improved central stenosis from our last intervention; however, she still does have especially in the area of the right brachiocephalic vein and the proximal area o f the superior vena cava. Decision was made to perform another venoplasty in the segment prior to pl acement of a new Eaqh-L-Itplrepg, therefore, a stiff wire was placed through the Perez catheter at proximal aspect of the SVC. At this point, a guiding catheter was then placed and reduced into the S VC and central venogram was then performed, which allowed us to guide our stiff wire towards the dist al aspect of the IVC. This was done in order to have adequate wire access control. At this point, o ur 12 x 40 mm balloon was used in order to perform a venoplasty of the distal aspect of the right int ernal jugular vein, right brachiocephalic vein, and the proximal aspect of the superior vena cava. P ost our intervention, there was residual of less than 30% of stenosis. At this point, a new Perm-A-C atheter was placed over the wire. Once the balloon was removed and was adequately positioned with sa tisfactory flushing and irrigation of the catheter. A catheter had appropriate heparin placed per ea ch port as recommended. The patient tolerated the procedure well. The catheter was secured with a 3 -0 nylon suture. All catheters and needles, wires were correct x2. Dictated By: MIMI ALVA/MIKE Conf#: [id number] DID#: [id number] CC: LUANNE WALTER MD; MUMTAZ LOPEZ MD;*EndCC*
[2018-06-23] MEDS: SEVELAMER CARBONATE 800 MG TABLET PO SCH ×3 (08:37→18:09)
[2018-06-23] MEDS: CALCIUM CARBONATE 500 MG CHEW TAB PO SCH ×3 (08:39→18:09)
--- NOTE | 2018-06-23 10:22 | CONS ---
Assessment/Plan Assessment/Plan Assessment/Plan (Daily) 1) Catheter related infection, Exit site infection, No bacteremia. 2) Non Functioning LUE AV 3) ESRD on HD 4) Hypercalemia- stable 5) MBD of CKD Plan; s/p new Right chest permacath, BP has been low, pt asymptomatic - HD ordered for tomorrow, pt regular schedule for HD is MWF will follow up Ok to d/c home tomorrow after HD on Wednesday Consultation Date/Type/Reason Admit Date/Time Jun 13, 2018 at 00:07 Initial Consult Date 06/14/18 Type of Consult NEPHROLOGY Requesting Provider: ERICK ROBERTSON Date/Time of Note DATE: 06/23/18 TIME: 10:22 24 HR Interval Summary Free Text/Dictation s/p new Right chest permacath, BP has been low, pt asymptomatic Exam/Review of Systems Exam Vitals Vital Signs Date Temp Pulse Resp B/P (MAP) Pulse Ox O2 O2 Flow FiO2 Time Delivery Rate 06/23/18 98.5 107 16 82/40 (54) 100 09:12 06/22/18 Room Air 19:40 Intake and Output 06/22/18 06/22/18 06/23/18 1515:00 23:00 07:00 IntakeIntake Total 1060 ml 240 ml OutputOutput Total 2500 ml BalanceBalance 1060 ml -2260 ml Results Result Diagram: 06/23/18 0456 06/23/18 0456 Results 24hrs Laboratory Tests Test 06/23/18 04:56 White Blood Count 6.3 Red Blood Count 3.68 L Hemoglobin 12.2 Hematocrit 37.4 Mean Corpuscular Volume 101.6 H Mean Corpuscular Hemoglobin 33.2 H Mean Corpuscular Hemoglobin Concent 32.6 Red Cell Distribution Width 13.2 Platelet Count 119 #L Mean Platelet Volume 12.0 H Immature Granulocytes % 0.300 Neutrophils % 59.1 Lymphocytes % 26.6 Monocytes % 8.3 Eosinophils % 5.1 Basophils % 0.6 Nucleated Red Blood Cells % 0.0 Immature Granulocytes # 0.020 Neutrophils # 3.7 Lymphocytes # 1.7 Monocytes # 0.5 Eosinophils # 0.3 Basophils # 0.0 Nucleated Red Blood Cells # 0.0 Sodium Level 146 H Potassium Level 4.4 Chloride Level 100 Carbon Dioxide Level 24 Anion Gap 22 H Blood Urea Nitrogen 30 #H Creatinine 7.63 #H Est Glomerular Filtrat Rate mL/min 6 L Glucose Level 83 Calcium Level 10.7 H Medications Medication Current Medications Acetaminophen (Tylenol Tab) 650 mg Q6H PRN PO MILD PAIN(1-3)OR ELEVATED TEMP; Start 06/13/18 at 02:00 Naproxen (Naprosyn) 500 mg BID PRN PO PAIN AND/OR INFLAMMATION Last administered on 06/17/18 11:12; Admin Dose 500 MG; Start 06/13/18 at 02:00 Sevelamer Carbonate (Renvela) 800 mg WITH MEALS PO Last administered on 06/23/18 08:37; Admin Dose 800 MG; Start 06/13/18 at 08:00 Zolpidem Tartrate (Ambien) 10 mg QHS PRN PO INSOMNIA; Start 06/13/18 at 02:00 Morphine Sulfate (morphine) 2 mg Q4H PRN IV SEVERE PAIN LEVEL 7-10 Last administered on 06/23/18 02:45; Admin Dose 2 MG; Start 06/13/18 at 05:30 Albumin Human 100 ml @ 100 mls/hr WITH DIALYSIS PRN IV SBP <90 DURING DIALYSIS Last administered on 06/22/18 15:31; Admin Dose 100 MLS/HR; Start 06/13/18 at 15:30 Heparin Sodium (Porcine) (Heparin (1000 Units/ml)) 3,200 unit AFTER DIALYSIS CATHETER Last administered on 06/22/18 18:25; Admin Dose 3,200 UNIT; Start 06/13/18 at 16:30 Ondansetron HCl (Zofran Inj) 4 mg Q4H PRN IV NAUSEA AND/OR VOMITING Last administered on 06/17/18 10:59; Admin Dose 4 MG; Start 06/14/18 at 13:30 Calcitriol (Rocaltrol) 0.25 mcg QHS PO Last administered on 06/22/18 21:06; Admin Dose 0.25 MCG; Start 06/15/18 at 21:00 Calcium Carbonate (Tums) 500 mg PC MEALS PO Last administered on 06/23/18 08:39; Admin Dose 500 MG; Start 06/16/18 at 19:00 Diphenhydramine HCl (Benadryl) 50 mg Q6H PRN IV ITCHING Last administered on 2/28/19at 08:35; Admin Dose 50 MG; Start 06/18/18 at 17:30 Pantoprazole (Protonix Tab) 40 mg DAILY@06 PO Last administered on 06/23/18at 05:51; Admin Dose 40 MG; Start 06/22/18 at 06:00 HENRIQUE GRANADO MD Jun 23, 2018 10:22
[2018-06-23] MEDS ORDERED: SOD CHLORIDE 0.9% 500 ML IV ONE (12:00)
--- NOTE | 2018-06-23 12:24 | PN ---
Date/Time of Note Date/Time of Note DATE: 06/23/18 TIME: 12:22 Assessment/Plan VTE [place]axis [place] [facility] [place]: 2 [place] [facility] [place] SCD contraindicated: other Pharmacological prophylaxis: other Pharm contraindication: other Lines/Catheters IV Catheter Type (from [facility], [place]): Perez Cath Urinary Cath still in place: No Assessment/Plan Assessment/Plan --Left upper extremity AV fistula nonfunctioning; - Dr. Francisco is following in vascular surgery consultation. - PermCath placement today - Possible line sepsis, follow-up on blood cultures from the catheter, continue broad-spectrum antibiotics. - Dr. Arora is following in infection disease consultation. -Hemodialysis dependent end-stage renal disease. - Dr. Omalley is following in nephrology consultation. -History of hyperparathyroidism, status post subtotal parathyroidectomy of the right superior and inferior glands, partial left inferior gland in June 2016. - Endo follows - Status post left upper and lower parathyroidectomy and partial left thyroid lobectomy in November [address] Morales, ENT. -Dr. De La Fuente is following in endocrinology consultation. -Chronic hypotension, asymptomatic. Continue to monitor. SBP 101 -Status post right chest Perez catheter -Left chest hemodialysis catheter present on admission, discontinued. Patient seen in collaboration with Dr Turner Result Diagram: 06/23/18 0456 06/23/18 0456 Results 24hrs Laboratory Tests Test 06/23/18 04:56 White Blood Count 6.3 Red Blood Count 3.68 L Hemoglobin 12.2 Hematocrit 37.4 Mean Corpuscular Volume 101.6 H Mean Corpuscular Hemoglobin 33.2 H Mean Corpuscular Hemoglobin Concent 32.6 Red Cell Distribution Width 13.2 Platelet Count 119 #L Mean Platelet Volume 12.0 H Immature Granulocytes % 0.300 Neutrophils % 59.1 Lymphocytes % 26.6 Monocytes % 8.3 Eosinophils % 5.1 Basophils % 0.6 Nucleated Red Blood Cells % 0.0 Immature Granulocytes # 0.020 Neutrophils # 3.7 Lymphocytes # 1.7 Monocytes # 0.5 Eosinophils # 0.3 Basophils # 0.0 Nucleated Red Blood Cells # 0.0 Sodium Level 146 H Potassium Level 4.4 Chloride Level 100 Carbon Dioxide Level 24 Anion Gap 22 H Blood Urea Nitrogen 30 #H Creatinine 7.63 #H Est Glomerular Filtrat Rate mL/min 6 L Glucose Level 83 Calcium Level 10.7 H Subjective 24 Hr Interval Summary Free Text/Dictation resting;sp right chedt Prma cath placement nad no new events reported last night Eyes: no complaints ENT: no complaints Respiratory: no complaints Cardiovascular: no complaints Gastrointestinal: no complaints Genitourinary: no complaints Musculoskeletal: no complaints Skin: no complaints Neurologic: no complaints Exam/Review of Systems Exam Vitals Vital Signs Date Temp Pulse Resp B/P (MAP) Pulse Ox O2 O2 Flow FiO2 Time Delivery Rate 06/23/18 90 18 72/45 (54) Room Air 11:52 06/23/18 98.5 100 09:12 Intake and Output 06/22/18 06/22/18 06/23/18 1515:00 23:00 07:00 IntakeIntake Total 1060 ml 240 ml OutputOutput Total 2500 ml BalanceBalance 1060 ml -2260 ml Constitutional: alert, well developed Psych: nl mood/affect Head: atraumatic Eyes: nl lids, nl sclera ENMT: nl external ears & nose Neck: non-tender Respiratory: clear to auscultation Cardiovascular: nl pulses, other (s1s2) Gastrointestinal: soft, non-tender Musculoskeletal: muscle weakness Extremities: normal pulses 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: nl speech, other (alert/responsive) Skin: nl turgor Lymph: nontender Results Results 24hrs Laboratory Tests Test 06/23/18 04:56 White Blood Count 6.3 Red Blood Count 3.68 L Hemoglobin 12.2 Hematocrit 37.4 Mean Corpuscular Volume 101.6 H Mean Corpuscular Hemoglobin 33.2 H Mean Corpuscular Hemoglobin Concent 32.6 Red Cell Distribution Width 13.2 Platelet Count 119 #L Mean Platelet Volume 12.0 H Immature Granulocytes % 0.300 Neutrophils % 59.1 Lymphocytes % 26.6 Monocytes % 8.3 Eosinophils % 5.1 Basophils % 0.6 Nucleated Red Blood Cells % 0.0 Immature Granulocytes # 0.020 Neutrophils # 3.7 Lymphocytes # 1.7 Monocytes # 0.5 Eosinophils # 0.3 Basophils # 0.0 Nucleated Red Blood Cells # 0.0 Sodium Level 146 H Potassium Level 4.4 Chloride Level 100 Carbon Dioxide Level 24 Anion Gap 22 H Blood Urea Nitrogen 30 #H Creatinine 7.63 #H Est Glomerular Filtrat Rate mL/min 6 L Glucose Level 83 Calcium Level 10.7 H Medications Medication Current Medications Acetaminophen (Tylenol Tab) 650 mg Q6H PRN PO MILD PAIN(1-3)OR ELEVATED TEMP; Start 06/13/18 at 02:00 Naproxen (Naprosyn) 500 mg BID PRN PO PAIN AND/OR INFLAMMATION Last administered on 06/17/18 11:12; Admin Dose 500 MG; Start 06/13/18 at 02:00 Sevelamer Carbonate (Renvela) 800 mg WITH MEALS PO Last administered on 06/23/18 08:37; Admin Dose 800 MG; Start 06/13/18 at 08:00 Zolpidem Tartrate (Ambien) 10 mg QHS PRN PO INSOMNIA; Start 06/13/18 at 02:00 Morphine Sulfate (morphine) 2 mg Q4H PRN IV SEVERE PAIN LEVEL 7-10 Last administered on 06/23/18 02:45; Admin Dose 2 MG; Start 06/13/18 at 05:30 Albumin Human 100 ml @ 100 mls/hr WITH DIALYSIS PRN IV SBP <90 DURING DIALYSIS Last administered on 06/22/18 15:31; Admin Dose 100 MLS/HR; Start 06/13/18 at 15:30 Heparin Sodium (Porcine) (Heparin (1000 Units/ml)) 3,200 unit AFTER DIALYSIS CATHETER Last administered on 06/22/18 18:25; Admin Dose 3,200 UNIT; Start 06/13/18 at 16:30 Ondansetron HCl (Zofran Inj) 4 mg Q4H PRN IV NAUSEA AND/OR VOMITING Last administered on 06/17/18 10:59; Admin Dose 4 MG; Start 06/14/18 at 13:30 Calcitriol (Rocaltrol) 0.25 mcg QHS PO Last administered on 06/22/18 21:06; Admin Dose 0.25 MCG; Start 06/15/18 at 21:00 Calcium Carbonate (Tums) 500 mg PC MEALS PO Last administered on 06/23/18 08:39; Admin Dose 500 MG; Start 06/16/18 at 19:00 Diphenhydramine HCl (Benadryl) 50 mg Q6H PRN IV ITCHING Last administered on 06/23/18 08:35; Admin Dose 50 MG; Start 06/18/18 at 17:30 Pantoprazole (Protonix Tab) 40 mg DAILY@06 PO Last administered on 06/23/18at 05:51; Admin Dose 40 MG; Start 06/22/18 at 06:00 Sodium Chloride 500 ml @ 500 mls/hr Q1H ONCE IV ; Start 06/23/18 at 12:00; Stop 06/23/18 at 12:59 Albumin Human 100 ml @ 100 mls/hr ONCE ONCE IV ; Start 06/23/18 at 12:30; Stop 06/23/18 at 13:29 Midodrine (Proamatine) 5 mg ONCE ONCE PO ; Start 06/23/18 at 12:30; Stop 06/23/18 at 12:31 EDILMA CASIANO Jun 23, 2018 12:24
[2018-06-23] MEDS ORDERED: MIDODRINE 5 MG TAB PO ONE (12:30)
[2018-06-23] MEDS ORDERED: ALBUMIN HUMAN 25% 100 ML IV ONE (12:30)
[2018-06-23] MEDS: CALCITRIOL 0.25 MCG CAP PO SCH (20:12)
--- NOTE | 2018-06-23 23:04 | CONS ---
Assessment/Plan Assessment/Plan Hospital Course (Demo Recall) - s/p recurrent, possible infection of HD catheter site on R chest wall, sp removal and placement of a new Abrber catheter. The culture of the tip of the removed catheter, blood cultures and swab of the catheter site were negative. Pt completed an empiric course of renally dosed pip/tazo (06/13/2018-06/18/2018) - s/p placement of a new permacath on R chest wall on 06/23/2018 - s/p biliary cholic, N&E, intermittent: according to Pt, she had received authorization for elective cholecystectomy as outpatient - s/p MRCP in 07/2017: negative for cholelithiasis or cholecystitis - s/p chills during the dialysis, subjective fever and anorexia prior to admission are concerning for bloodstream infections - h/o placement and removal of HD catheters, according to Pt, she has had 9 episodes of HD catheter site/catheter infection - h/o creation of [place] in [facility] [place], thrombosed L brachiocephalic AV fistula, 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 Last used for HD in 04/2018 - s/p thrombocytopenia likely d/t linezolid. 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 Her last cycle was about 3 weeks ago - allergy to vancomycin (pruritus) recommendations: - continue to to monitor Pt off systemic antibiotics. management d/w Pt Consultation Date/Type/Reason Admit Date/Time Jun 13, 2018 at 00:07 Initial Consult Date 06/14/18 Type of Consult ID Requesting Provider: ERICK ROBERTSON Date/Time of Note DATE: 06/23/18 TIME: 23:01 24 HR Interval Summary Constitutional: improved Detailed Summary Eyes: no complaints ENT: other (+swelling at the top of scalp) Respiratory: no complaints Cardiovascular: other (+swelling on the anterior chest wall) Gastrointestinal: no complaints Genitourinary: other (on HD) Musculoskeletal: no complaints Skin: pruritis (chest wall and neck); No rash Neurologic: no complaints Exam/Review of Systems Exam Vitals Vital Signs Date Temp Pulse Resp B/P (MAP) Pulse Ox O2 O2 Flow FiO2 Time Delivery Rate 06/23/18 98.7 87 16 79/49 (59) 100 19:40 06/23/18 Room Air 11:52 Intake and Output 06/22/18 06/22/18 06/23/18 1515:00 23:00 07:00 IntakeIntake Total 1060 ml 240 ml OutputOutput Total 2500 ml BalanceBalance 1060 ml -2260 ml Constitutional: alert, oriented, well developed Psych: no complaints, nl mood/affect Head: normocephalic, other (+alopecia, mild swelling on the top of the scalp) Eyes: nl conjunctiva, nl lids ENMT: nl external ears & nose, nl nasal mucosa & septum Neck: other (not swollen) Respiratory: clear to auscultation, normal air movement, other (mild swelling of the anterior chest wall) Cardiovascular: regular rate and rhythm, nl pulses, other (+permacath on R chest wall) Gastrointestinal: soft, non-tender Musculoskeletal: No swelling Extremities: normal pulses, other (AVF in LUE) 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: 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 MACHINE OPERATOR II-XII intact, nl mental status, nl speech, nl strength Skin: No rash or lesions Results Result Diagram: 06/23/18 0456 06/23/18 0456 Results 24hrs Laboratory Tests Test 06/23/18 04:56 White Blood Count 6.3 Red Blood Count 3.68 L Hemoglobin 12.2 Hematocrit 37.4 Mean Corpuscular Volume 101.6 H Mean Corpuscular Hemoglobin 33.2 H Mean Corpuscular Hemoglobin Concent 32.6 Red Cell Distribution Width 13.2 Platelet Count 119 #L Mean Platelet Volume 12.0 H Immature Granulocytes % 0.300 Neutrophils % 59.1 Lymphocytes % 26.6 Monocytes % 8.3 Eosinophils % 5.1 Basophils % 0.6 Nucleated Red Blood Cells % 0.0 Immature Granulocytes # 0.020 Neutrophils # 3.7 Lymphocytes # 1.7 Monocytes # 0.5 Eosinophils # 0.3 Basophils # 0.0 Nucleated Red Blood Cells # 0.0 Sodium Level 146 H Potassium Level 4.4 Chloride Level 100 Carbon Dioxide Level 24 Anion Gap 22 H Blood Urea Nitrogen 30 #H Creatinine 7.63 #H Est Glomerular Filtrat Rate mL/min 6 L Glucose Level 83 Calcium Level 10.7 H Medications Medication Current Medications Acetaminophen (Tylenol Tab) 650 mg Q6H PRN PO MILD PAIN(1-3)OR ELEVATED TEMP; Start 06/13/18 at 02:00 Naproxen (Naprosyn) 500 mg BID PRN PO PAIN AND/OR INFLAMMATION Last administered on 06/17/18 11:12; Admin Dose 500 MG; Start 06/13/18 at 02:00 Sevelamer Carbonate (Renvela) 800 mg WITH MEALS PO Last administered on 06/23/18 18:09; Admin Dose 800 MG; Start 06/13/18 at 08:00 Zolpidem Tartrate (Ambien) 10 mg QHS PRN PO INSOMNIA; Start 06/13/18 at 02:00 Morphine Sulfate (morphine) 2 mg Q4H PRN IV SEVERE PAIN LEVEL 7-10 Last administered on 06/23/18 18:51; Admin Dose 2 MG; Start 06/13/18 at 05:30 Albumin Human 100 ml @ 100 mls/hr WITH DIALYSIS PRN IV SBP <90 DURING DIALYSIS Last administered on 06/22/18 15:31; Admin Dose 100 MLS/HR; Start 06/13/18 at 15:30 Heparin Sodium (Porcine) (Heparin (1000 Units/ml)) 3,200 unit AFTER DIALYSIS CATHETER Last administered on 06/22/18 18:25; Admin Dose 3,200 UNIT; Start 06/13/18 at 16:30 Ondansetron HCl (Zofran Inj) 4 mg Q4H PRN IV NAUSEA AND/OR VOMITING Last administered on 06/17/18 10:59; Admin Dose 4 MG; Start 06/14/18 at 13:30 Calcitriol (Rocaltrol) 0.25 mcg QHS PO Last administered on 06/23/18 20:12; Admin Dose 0.25 MCG; Start 06/15/18 at 21:00 Calcium Carbonate (Tums) 500 mg PC MEALS PO Last administered on 06/23/18 18:09; Admin Dose 500 MG; Start 06/16/18 at 19:00 Diphenhydramine HCl (Benadryl) 50 mg Q6H PRN IV ITCHING Last administered on 06/23/18at 20:11; Admin Dose 50 MG; Start 06/18/18 at 17:30 Pantoprazole (Protonix Tab) 40 mg DAILY@06 PO Last administered on 06/23/18at 05:51; Admin Dose 40 MG; Start 06/22/18 at 06:00 GINGER HARDIN M.D. Jun 23, 2018 23:04
[2018-06-24] VITALS (16 sets, daily range): BP systolic 69–111; BP diastolic 37–65; PULSE 63–113; RESP 16–20
[2018-06-24] MEDS: morphine 2 MG INJ IV PRN ×4 (01:25→23:33)
[2018-06-24] MEDS: DIPHENHYDRAMINE 50 MG INJ IV PRN ×4 (02:16→20:20)
[2018-06-24] MEDS: PANTOPRAZOLE (EC) 40 MG TAB PO SCH (05:34)
[2018-06-24] MEDS: SEVELAMER CARBONATE 800 MG TABLET PO SCH ×3 (08:20→18:02)
[2018-06-24] MEDS: CALCIUM CARBONATE 500 MG CHEW TAB PO SCH ×3 (08:20→18:02)
--- NOTE | 2018-06-24 11:42 | CONS ---
Assessment/Plan Assessment/Plan Assessment/Plan (Daily) 1) Catheter related infection, Exit site infection, No bacteremia. 2) Non Functioning LUE AV 3) ESRD on HD 4) Hypercalemia- stable 5) MBD of CKD Plan; s/p new Right chest permacath, HD has to be stopped after 2 hr , pt gets more agitated and c/o back pain pt regular schedule for HD is MWF will follow up Ok to d/c home tomorrow after HD on Wednesday Consultation Date/Type/Reason Admit Date/Time Jun 13, 2018 at 00:07 Initial Consult Date 06/14/18 Type of Consult NEPHROLOGY Requesting Provider: ERICK ROBERTSON Date/Time of Note DATE: 06/24/18 TIME: 11:42 24 HR Interval Summary Free Text/Dictation HD has to be stopped after 2 hr , pt gets more agitated and c/o back pain Exam/Review of Systems Exam Vitals Vital Signs Date Temp Pulse Resp B/P (MAP) Pulse Ox O2 O2 Flow FiO2 Time Delivery Rate 06/24/18 94 10:51 06/24/18 18 87/53 (64) 98 Room Air 10:06 06/24/18 98.5 07:53 Intake and Output 06/23/18 06/23/18 06/24/18 1515:00 23:00 07:00 IntakeIntake Total 340 ml 980 ml 650 ml BalanceBalance 340 ml 980 ml 650 ml Constitutional: alert Head: normocephalic Eyes: nl conjunctiva Neck: supple, non-tender Respiratory: clear to auscultation, normal air movement, diminished breath sounds Cardiovascular: regular rate and rhythm, nl pulses Gastrointestinal: soft, non-tender Musculoskeletal: swelling Extremities: normal pulses, other (Right chest permacath ) 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: INVISIBLE BRACES ORTHODONTIST II-XII intact, nl mental status, nl speech, nl strength Results Result Diagram: 06/23/186 06/23/18455 Medications Medication Current Medications Acetaminophen (Tylenol Tab) 650 mg Q6H PRN PO MILD PAIN(1-3)OR ELEVATED TEMP; Start 06/13/18 at 02:00 Naproxen (Naprosyn) 500 mg BID PRN PO PAIN AND/OR INFLAMMATION Last administered on 06/17/18at 11:12; Admin Dose 500 MG; Start 06/13/18 at 02:00 Sevelamer Carbonate (Renvela) 800 mg WITH MEALS PO Last administered on 06/24/18 08:20; Admin Dose 800 MG; Start 06/13/18 at 08:00 Zolpidem Tartrate (Ambien) 10 mg QHS PRN PO INSOMNIA; Start 06/13/18 at 02:00 Morphine Sulfate (morphine) 2 mg Q4H PRN IV SEVERE PAIN LEVEL 7-10 Last administered on 06/24/18 01:25; Admin Dose 2 MG; Start 06/13/18 at 05:30 Albumin Human 100 ml @ 100 mls/hr WITH DIALYSIS PRN IV SBP <90 DURING DIALYSIS Last administered on 06/22/18 15:31; Admin Dose 100 MLS/HR; Start 06/13/18 at 15:30 Heparin Sodium (Porcine) (Heparin (1000 Units/ml)) 3,200 unit AFTER DIALYSIS CATHETER Last administered on 06/22/18 18:25; Admin Dose 3,200 UNIT; Start 06/13/18 at 16:30 Ondansetron HCl (Zofran Inj) 4 mg Q4H PRN IV NAUSEA AND/OR VOMITING Last administered on 06/17/18 10:59; Admin Dose 4 MG; Start 06/14/18 at 13:30 Calcitriol (Rocaltrol) 0.25 mcg QHS PO Last administered on 06/23/18 20:12; Admin Dose 0.25 MCG; Start 06/15/18 at 21:00 Calcium Carbonate (Tums) 500 mg PC MEALS PO Last administered on 06/24/18 08:20; Admin Dose 500 MG; Start 06/16/18 at 19:00 Diphenhydramine HCl (Benadryl) 50 mg Q6H PRN IV ITCHING Last administered on 06/24/18 08:20; Admin Dose 50 MG; Start 06/18/18 at 17:30 Pantoprazole (Protonix Tab) 40 mg DAILY@06 PO Last administered on 06/24/18 05:34; Admin Dose 40 MG; Start 06/22/18 at 06:00 HENRIQUE GRANADO MD Jun 24, 2018 11:42
--- NOTE | 2018-06-24 12:12 | CONS ---
Assessment/Plan Assessment/Plan Problems: (1) Hyperprolactinemia Status: Chronic Comment: This is confirmed. To do adequate imaging would require MRI scan using pituitary protocol with gadolinium. In this patient with end-stage renal disease she would have to be coordinated with immediate post procedure he modialysis. However there is no evidence of a larger greater than 10 mm pituitary mass. As such this hyperprolactinemia is appropriate to treat. The drug I would prefer to use is Cabergoline which is not on formulary, but can be prescribed at discharge 0.5 mg twice a week.. For now she will be on bromocriptine 2.5 mg nightly. (2) Premature ovarian failure Status: Chronic Comment: Noted. If this was due to the hyperprolactinemia of the FSH and LH would not be elevated (3) Postprocedural hypoparathyroidism Status: Chronic Comment: Adequately replaced and calcium is remaining normal (4) End stage kidney disease Status: Chronic Comment: As per nephrology Consultation Date/Type/Reason Admit Date/Time Jun 13, 2018 at 00:07 Initial Consult Date 06/14/18 Type of Consult Endocrine Reason for Consultation Hyperprolactinemia; hypothyroidism; tertiary height hyperparathyroidism status post total parathyroidectomy with hypoparathyroidism; end-stage renal disease; skeletal renal osteodystrophy Requesting Provider: ERICK ROBERTSON Date/Time of Note DATE: 06/24/18 TIME: 12:09 24 HR Interval Summary Constitutional: no complaints Detailed Summary Endocrine: no complaints Exam/Review of Systems Exam Vitals Vital Signs Date Temp Pulse Resp B/P (MAP) Pulse Ox O2 O2 Flow FiO2 Time Delivery Rate 06/24/18 94 10:51 06/24/18 18 87/53 (64) 98 Room Air 10:06 06/24/18 98.5 07:53 Intake and Output 06/23/18 06/23/18 06/24/18 1515:00 23:00 07:00 IntakeIntake Total 340 ml 980 ml 650 ml BalanceBalance 340 ml 980 ml 650 ml Exam No changes Results Result Diagram: 06/23/18 0456 06/23/18 0456 Medications Medication Current Medications Acetaminophen (Tylenol Tab) 650 mg Q6H PRN PO MILD PAIN(1-3)OR ELEVATED TEMP; Start 06/13/18 at 02:00 Naproxen (Naprosyn) 500 mg BID PRN PO PAIN AND/OR INFLAMMATION Last administered on 06/17/18 11:12; Admin Dose 500 MG; Start 06/13/18 at 02:00 Sevelamer Carbonate (Renvela) 800 mg WITH MEALS PO Last administered on 06/24/18 12:04; Admin Dose 800 MG; Start 06/13/18 at 08:00 Zolpidem Tartrate (Ambien) 10 mg QHS PRN PO INSOMNIA; Start 06/13/18 at 02:00 Morphine Sulfate (morphine) 2 mg Q4H PRN IV SEVERE PAIN LEVEL 7-10 Last administered on 06/24/18 12:04; Admin Dose 2 MG; Start 06/13/18 at 05:30 Albumin Human 100 ml @ 100 mls/hr WITH DIALYSIS PRN IV SBP <90 DURING DIALYSIS Last administered on 06/22/18 15:31; Admin Dose 100 MLS/HR; Start 06/13/18 at 15:30 Heparin Sodium (Porcine) (Heparin (1000 Units/ml)) 3,200 unit AFTER DIALYSIS CATHETER Last administered on 06/22/18 18:25; Admin Dose 3,200 UNIT; Start 06/13/18 at 16:30 Ondansetron HCl (Zofran Inj) 4 mg Q4H PRN IV NAUSEA AND/OR VOMITING Last administered on 06/17/18 10:59; Admin Dose 4 MG; Start 06/14/18 at 13:30 Calcitriol (Rocaltrol) 0.25 mcg QHS PO Last administered on 06/23/18 20:12; Admin Dose 0.25 MCG; Start 06/15/18 at 21:00 Calcium Carbonate (Tums) 500 mg PC MEALS PO Last administered on 06/24/18 12:04; Admin Dose 500 MG; Start 06/16/18 at 19:00 Diphenhydramine HCl (Benadryl) 50 mg Q6H PRN IV ITCHING Last administered on 06/24/18 08:20; Admin Dose 50 MG; Start 06/18/18 at 17:30 Pantoprazole (Protonix Tab) 40 mg DAILY@06 PO Last administered on 06/24/18 05:34; Admin Dose 40 MG; Start 06/22/18 at 06:00 ESEQUIEL NAPOLES MD Jun 24, 2018 12:12
[2018-06-24] MEDS: ALBUMIN HUMAN 25% 100 ML IV PRN (12:22)
[2018-06-24] MEDS: HEPARIN 1000 UNITS/ML 10 ML INJ CATHETER SCH (13:23)
--- NOTE | 2018-06-24 19:18 | CONS ---
Assessment/Plan Assessment/Plan Hospital Course (Demo Recall) - hypotension after HD - s/p recurrent, possible infection of HD catheter site on R chest wall, sp removal and placement of a new Barber catheter. The culture of the tip of the removed catheter, blood cultures and swab of the catheter site were negative. Pt completed an empiric course of renally dosed pip/tazo (06/13/2018-06/18/2018) - s/p placement of a new permacath on R chest wall on 06/23/2018 - s/p biliary cholic, N&E, intermittent: according to Pt, she had received authorization for elective cholecystectomy as outpatient - s/p MRCP in 07/2017: negative for cholelithiasis or cholecystitis - s/p chills during the dialysis, subjective fever and anorexia prior to admission are concerning for bloodstream infections - h/o placement and removal of HD catheters, according to Pt, she has had 9 episodes of HD catheter site/catheter infection - h/o creation of AVF in [facility] [place] in 2016, thrombosed L brachiocephalic AV fistula, 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 Last used for HD in 04/2018 - s/p thrombocytopenia likely d/t linezolid. 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 Her last cycle was about 3 weeks ago - allergy to vancomycin (pruritus) recommendations: - continue to to monitor Pt off systemic antibiotics. management d/w Pt, her RN Yodit Consultation Date/Type/Reason Admit Date/Time Jun 13, 2018 at 00:07 Initial Consult Date 06/14/18 Type of Consult ID Requesting Provider: ERICK ROBERTSON Date/Time of Note DATE: 06/24/18 TIME: 19:16 24 HR Interval Summary Constitutional: other (dizzy) Detailed Summary Eyes: no complaints ENT: no complaints Respiratory: no complaints Cardiovascular: no complaints Gastrointestinal: pain (RUQ, intermittent) Genitourinary: other (HD) Musculoskeletal: no complaints Skin: no complaints Neurologic: other (dizzy) Exam/Review of Systems Exam Vitals Vital Signs Date Temp Pulse Resp B/P (MAP) Pulse Ox O2 O2 Flow FiO2 Time Delivery Rate 06/24/18 101 98/55 (69) 19:01 06/24/18 98.3 18 98 14:14 06/24/18 Room Air 10:06 Intake and Output 06/23/18 06/23/18 06/24/18 1515:00 23:00 07:00 IntakeIntake Total 340 ml 980 ml 650 ml BalanceBalance 340 ml 980 ml 650 ml Constitutional: alert, oriented Psych: no complaints, nl mood/affect Head: normocephalic Eyes: other (alopecia) ENMT: nl external ears & nose, nl nasal mucosa & septum Neck: supple; No non-tender Respiratory: clear to auscultation, normal air movement Cardiovascular: regular rate and rhythm, nl pulses Gastrointestinal: soft, tender (RUQ with deep palpation but no acute abdomen); No distended Musculoskeletal: nl extremities to inspection Extremities: other (AVF in LUE); No edema 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: CREAM GATHERER II-XII intact, nl mental status, nl speech, nl strength Skin: nl turgor; No rash or lesions Results Result Diagram: 06/23/18 0456 06/23/186 Medications Medication Current Medications Acetaminophen (Tylenol Tab) 650 mg Q6H PRN PO MILD PAIN(1-3)OR ELEVATED TEMP; Start 06/13/18 at 02:00 Naproxen (Naprosyn) 500 mg BID PRN PO PAIN AND/OR INFLAMMATION Last administered on 06/17/18at 11:12; Admin Dose 500 MG; Start 06/13/18 at 02:00 Sevelamer Carbonate (Renvela) 800 mg WITH MEALS PO Last administered on 06/24/18at 18:02; Admin Dose 800 MG; Start 06/13/18 at 08:00 Zolpidem Tartrate (Ambien) 10 mg QHS PRN PO INSOMNIA; Start 06/13/18 at 02:00 Morphine Sulfate (morphine) 2 mg Q4H PRN IV SEVERE PAIN LEVEL 7-10 Last administered on 06/24/18 19:06; Admin Dose 2 MG; Start 06/13/18 at 05:30 Albumin Human 100 ml @ 100 mls/hr WITH DIALYSIS PRN IV SBP <90 DURING DIALYSIS Last administered on 06/24/18 12:22; Admin Dose 100 MLS/HR; Start 06/13/18 at 15:30 Heparin Sodium (Porcine) (Heparin (1000 Units/ml)) 3,200 unit AFTER DIALYSIS CATHETER Last administered on 06/24/18 13:23; Admin Dose 3,200 UNIT; Start 06/13/18 at 16:30 Ondansetron HCl (Zofran Inj) 4 mg Q4H PRN IV NAUSEA AND/OR VOMITING Last administered on 06/17/18 10:59; Admin Dose 4 MG; Start 06/14/18 at 13:30 Calcitriol (Rocaltrol) 0.25 mcg QHS PO Last administered on 06/23/18 20:12; Admin Dose 0.25 MCG; Start 06/15/18 at 21:00 Calcium Carbonate (Tums) 500 mg PC MEALS PO Last administered on 06/24/18 18:02; Admin Dose 500 MG; Start 06/16/18 at 19:00 Diphenhydramine HCl (Benadryl) 50 mg Q6H PRN IV ITCHING Last administered on 06/24/18 14:04; Admin Dose 50 MG; Start 06/18/18 at 17:30 Pantoprazole (Protonix Tab) 40 mg DAILY@06 PO Last administered on 06/24/18 05:34; Admin Dose 40 MG; Start 06/22/18 at 06:00 Bromocriptine Mesylate (Parlodel) 2.5 mg QHS PO ; Start 06/24/18 at 21:00 GINGER HARDIN M.D. Jun 24, 2018 19:18
[2018-06-24] MEDS: CALCITRIOL 0.25 MCG CAP PO SCH (20:19)
[2018-06-24] MEDS ORDERED: BROMOCRIPTINE 2.5 MG TAB PO SCH (21:00)
--- NOTE | 2018-06-24 23:17 | PN ---
Date/Time of Note Date/Time of Note DATE: 06/24/18 TIME: 23:17 Assessment/Plan VTE Prophylaxis Risk score (from Ns)>0 risk: 2 SCD applied (from Ns): Yes SCD contraindicated: other Pharmacological prophylaxis: other Lines/Catheters IV Catheter Type (from [facility]): Permacath Central line still needed: Yes Urinary Cath still in place: No Assessment/Plan Assessment/Plan --Left upper extremity AV fistula nonfunctioning; currently getting hemodialysis - Dr. Francisco is following in vascular surgery consultation. - SP right chest PermCath placement yesterday -Status post right chest Perez catheter removal - Possible line sepsis, follow-up on blood cultures from the catheter, continue broad-spectrum antibiotics. - Dr. Arora is following in infection disease consultation. -Hemodialysis dependent end-stage renal disease. - Dr. Omalley is following in nephrology consultation. -History of hyperparathyroidism, status post subtotal parathyroidectomy of the right superior and inferior glands, partial left inferior gland in June 2016. - Endo follows - Status post left upper and lower parathyroidectomy and partial left thyroid lobectomy in November [address] Morales, ENT. -Dr. De La Fuente is following in endocrinology consultation. -Chronic hypotension, asymptomatic. Continue to monitor. SBP 101 -Left chest hemodialysis catheter present on admission, discontinued. Patient seen in collaboration with Dr Turner Result Diagram: 06/23/18 0456 06/23/18 0456 Subjective 24 Hr Interval Summary Free Text/Dictation - 1200- Patient was started on HD earlier but patient c/o not feeling well, SBP 101; HD is being stopped after 1 liter is removed. Jeyson Beltran. - elevated calcium- endo follows - patient is not stable to discharge today dw staff Eyes: no complaints ENT: no complaints Respiratory: no complaints Cardiovascular: no complaints Gastrointestinal: no complaints Genitourinary: no complaints Musculoskeletal: other (muscle cramps) Skin: no complaints Neurologic: no complaints Lymphatic: no complaints Psychological: nl mood/affect Immunologic: no complaints Exam/Review of Systems Exam Vitals Vital Signs Date Temp Pulse Resp B/P (MAP) Pulse Ox O2 O2 Flow FiO2 Time Delivery Rate 06/24/18 98.3 106 16 83/45 (58) 95 20:16 06/24/18 Room Air 10:06 Intake and Output 06/23/18 06/23/1819 1515:00 23:00 07:00 IntakeIntake Total 340 ml 980 ml 650 ml BalanceBalance 340 ml 980 ml 650 ml Constitutional: alert, well developed Psych: nl mood/affect Head: atraumatic Eyes: EOMI, nl lids ENMT: nl external ears & nose Neck: non-tender Respiratory: clear to auscultation (bilaterally) Cardiovascular: nl pulses, other (s1s2) Gastrointestinal: soft, non-tender Musculoskeletal: muscle weakness Extremities: normal pulses 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: nl speech, other (alert/responsive) Skin: nl turgor Lymph: nontender Medications Medication Current Medications Acetaminophen (Tylenol Tab) 650 mg Q6H PRN PO MILD PAIN(1-3)OR ELEVATED TEMP; Start 06/13/18 at 02:00 Naproxen (Naprosyn) 500 mg BID PRN PO PAIN AND/OR INFLAMMATION Last administered on 06/17/18 11:12; Admin Dose 500 MG; Start 06/13/18 at 02:00 Sevelamer Carbonate (Renvela) 800 mg WITH MEALS PO Last administered on 06/24/18 18:02; Admin Dose 800 MG; Start 06/13/18 at 08:00 Zolpidem Tartrate (Ambien) 10 mg QHS PRN PO INSOMNIA; Start 06/13/18 at 02:00 Morphine Sulfate (morphine) 2 mg Q4H PRN IV SEVERE PAIN LEVEL 7-10 Last administered on 06/24/18 19:06; Admin Dose 2 MG; Start 06/13/18 at 05:30 Albumin Human 100 ml @ 100 mls/hr WITH DIALYSIS PRN IV SBP <90 DURING DIALYSIS Last administered on 06/24/18 12:22; Admin Dose 100 MLS/HR; Start 06/13/18 at 15:30 Heparin Sodium (Porcine) (Heparin (1000 Units/ml)) 3,200 unit AFTER DIALYSIS CATHETER Last administered on 06/24/18 13:23; Admin Dose 3,200 UNIT; Start 06/13/18 at 16:30 Ondansetron HCl (Zofran Inj) 4 mg Q4H PRN IV NAUSEA AND/OR VOMITING Last administered on 06/17/18 10:59; Admin Dose 4 MG; Start 06/14/18 at 13:30 Calcitriol (Rocaltrol) 0.25 mcg QHS PO Last administered on 06/23/18 20:12; Admin Dose 0.25 MCG; Start 06/15/18 at 21:00 Calcium Carbonate (Tums) 500 mg PC MEALS PO Last administered on 06/24/18at 18:0 2; Admin Dose 500 MG; Start 06/16/18 at 19:00 Diphenhydramine HCl (Benadryl) 50 mg Q6H PRN IV ITCHING Last administered on 06/24/18 20:20; Admin Dose 50 MG; Start 06/18/18 at 17:30 Pantoprazole (Protonix Tab) 40 mg DAILY@06 PO Last administered on 06/24/18 05:34; Admin Dose 40 MG; Start 06/22/18 at 06:00 Bromocriptine Mesylate (Parlodel) 2.5 mg QHS PO Last administered on 06/24/18 20:20; Admin Dose 2.5 MG; Start 06/24/18 at 21:00 EDILMA CASIANO Jun 24, 2018 23:17
[2018-06-25 01:45] VITALS: BP 148/61; PULSE 82; RESP 15
[2018-06-25] MEDS: DIPHENHYDRAMINE 50 MG INJ IV PRN ×3 (02:31→15:15)
[2018-06-25] MEDS: PANTOPRAZOLE (EC) 40 MG TAB PO SCH (06:35)
[2018-06-25 07:46] VITALS: BP 72/45; PULSE 84; RESP 20
[2018-06-25] MEDS: CALCIUM CARBONATE 500 MG CHEW TAB PO SCH (08:00)
[2018-06-25] MEDS: SEVELAMER CARBONATE 800 MG TABLET PO SCH ×3 (08:54→18:18)
[2018-06-25] MEDS ORDERED: ALBUMIN HUMAN 25% 100 ML IV ONE (10:30)
[2018-06-25 11:00] VITALS: BP 86/40; PULSE 89; RESP 16
[2018-06-25] MEDS: MIDODRINE 5 MG TAB PO SCH ×3 (11:04→18:18)
--- NOTE | 2018-06-25 12:35 | CONS ---
Assessment/Plan Assessment/Plan Problems: (1) Postprocedural hypoparathyroidism Status: Chronic Comment: Pt. adequately replaced w/ calcitriol and calcium such that calcium has been mildly elevated last few days. Calcitriol and calcium being held. Should be restarted when calcium less than 10. Would cont. calcitriol 0.25 mcg daily but decrease calcium replacement to only 1-2 times/d after d/c (2) Hypocalcemia Status: Resolved (3) Premature ovarian failure Status: Chronic Comment: May need OCP after d/c to maintain bone health (4) Hyperprolactinemia Status: Chronic Comment: Started bromocriptine last night. Can cont. this after d/c or change to cabergoline 0.5 mg po 2 days/wk Consultation Date/Type/Reason Admit Date/Time Jun 13, 2018 at 00:07 Initial Consult Date 06/14/18 Type of Consult Endocrinology Reason for Consultation hypocalcemia/hypoparathyroidism Requesting Provider: ERICK ROBERTSON Date/Time of Note DATE: 06/25/18 TIME: 12:30 24 HR Interval Summary Constitutional: no complaints, improved Detailed Summary Respiratory: no complaints Cardiovascular: no complaints Gastrointestinal: no complaints (no nausea following bromocriptine last night) Genitourinary: no complaints Musculoskeletal: no complaints Neurologic: no complaints Exam/Review of Systems Exam Vitals VS - Last 72 Hours, by Label Date Temp Pulse Resp B/P (MAP) Pulse Ox O2 O2 Flow FiO2 Time Delivery Rate 06/25/18 89 16 86/40 (55) 97 11:00 06/25/18 98.1 84 20 72/45 (54) 98 07:46 06/25/18 98.3 82 15 148/61 92 01:45 (90) 06/24/18 90 20 111/65 100 23:33 (80) 06/24/18 98.3 106 16 83/45 (58) 95 20:16 06/24/18 101 98/55 (69) 19:01 06/24/18 98.3 100 18 75/47 (56) 98 14:14 06/24/18 103 12:45 06/24/18 113 12:06 06/24/18 107 11:51 06/24/18 100 11:36 06/24/18 98 11:21 06/24/18 94 11:06 06/24/18 94 10:51 06/24/18 83 10:36 06/24/18 78 10:21 06/24/18 81 18 87/53 (64) 98 Room Air 10:06 06/24/18 63 10:06 06/24/18 98.5 80 20 83/37 (52) 98 07:53 06/24/18 98.2 82 16 95/53 (67) 99 01:20 06/23/18 98.7 87 16 79/49 (59) 100 19:40 06/23/18 86 96/49 (65) 18:48 06/23/18 91 83/48 (60) 99 17:15 06/23/18 98.4 92 16 79/48 (58) 99 15:45 06/23/18 92 69/38 (48) 12:37 06/23/18 90 18 72/45 (54) Room Air 11:52 06/23/18 98.5 107 16 82/40 (54) 100 09:12 06/23/18 88 18 102/50 02:45 (67) 06/23/18 96 83/51 (62) 02:03 06/23/18 98.2 87 74/44 (54) 98 01:50 06/22/18 89 18 105/80 Room Air 19:40 (88) 06/22/18 98.5 95 18 83/50 (61) 96 Room Air 19:35 06/22/18 73/51 (58) 18:18 06/22/18 105 18:10 06/22/18 112 17:40 06/22/18 117 17:25 06/22/18 100 17:10 06/22/18 82 16:55 06/22/18 76 16:40 06/22/18 74 16:25 06/22/18 79 16:10 06/22/18 69 15:55 06/22/18 71 15:40 06/22/18 69 15:25 06/22/18 77 18 85/59 (68) Room Air 15:10 06/22/18 77 15:10 06/22/18 98.6 88 16 97/52 (67) 98 13:28 Vital Signs Date Temp Pulse Resp B/P (MAP) Pulse Ox O2 O2 Flow FiO2 Time Delivery Rate 06/25/18 89 16 86/40 (55) 97 11:00 06/25/18 98.1 07:46 06/24/18 Room Air 10:06 Intake and Output 06/24/18 06/24/18 06/25/18 1515:00 23:00 07:00 IntakeIntake Total 640 ml 650 ml 780 ml OutputOutput Total 1800 ml BalanceBalance -1160 ml 650 ml 780 ml Constitutional: alert, oriented, well developed Psych: no complaints, nl mood/affect Respiratory: clear to auscultation, normal air movement Cardiovascular: regular rate and rhythm, nl pulses; No edema, No murmurs/extra sounds, No rub Gastrointestinal: soft, nl liver, spleen, non-tender, bowel sounds; No mass, No rebound or guarding Musculoskeletal: nl extremities to inspection Extremities: normal pulses; No cyanosis, No clubbing, No edema 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: GRAIN COMMODITY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 intact, nl mental status, nl speech, nl strength Results Result Diagram: 06/23/18 0456 06/25/18 0526 Results 24hrs Laboratory Tests Test 06/25/18 00:48 06/25/18 05:26 Sodium Level 145 H 146 H Potassium Level 4.7 5.0 Chloride Level 101 100 Carbon Dioxide Level 22 22 Anion Gap 22 H 24 H Blood Urea Nitrogen 38 H 42 H Creatinine 8.13 H 8.76 H Est Glomerular Filtrat Rate mL/min 6 L 5 L Glucose Level 101 78 Calcium Level 10.5 H 10.5 H Medications Medication Current Medications Acetaminophen (Tylenol Tab) 650 mg Q6H PRN PO MILD PAIN(1-3)OR ELEVATED TEMP; Start 06/13/18 at 02:00 Naproxen (Naprosyn) 500 mg BID PRN PO PAIN AND/OR INFLAMMATION Last administered on 06/17/18at 11:12; Admin Dose 500 MG; Start 06/13/18 at 02:00 Sevelamer Carbonate (Renvela) 800 mg WITH MEALS PO Last administered on 08:54; Admin Dose 800 MG; Start 06/13/18 at 08:00 Zolpidem Tartrate (Ambien) 10 mg QHS PRN PO INSOMNIA; Start 06/13/18 at 02:00 Morphine Sulfate (morphine) 2 mg Q4H PRN IV SEVERE PAIN LEVEL 7-10 Last administered on 06/24/18at 23:33; Admin Dose 2 MG; Start 06/13/18 at 05:30 Albumin Human 100 ml @ 100 mls/hr WITH DIALYSIS PRN IV SBP <90 DURING DIALYSIS Last administered on 06/24/18 12:22; Admin Dose 100 MLS/HR; Start 06/13/18 at 15:30 Heparin Sodium (Porcine) (Heparin (1000 Units/ml)) 3,200 unit AFTER DIALYSIS CATHETER Last administered on 06/24/18 13:23; Admin Dose 3,200 UNIT; Start 06/13/18 at 16:30 Ondansetron HCl (Zofran Inj) 4 mg Q4H PRN IV NAUSEA AND/OR VOMITING Last administered on 06/17/18 10:59; Admin Dose 4 MG; Start 06/14/18 at 13:30 Calcitriol (Rocaltrol) 0.25 mcg QHS PO Last administered on 06/23/18 20:12; Admin Dose 0.25 MCG; Start 06/15/18 at 21:00 Calcium Carbonate (Tums) 500 mg PC MEALS PO Last administered on 06/24/18 18:02; Admin Dose 500 MG; Start 06/16/18 at 19:00 Diphenhydramine HCl (Benadryl) 50 mg Q6H PRN IV ITCHING Last administered on 06/25/18 08:54; Admin Dose 50 MG; Start 06/18/18 at 17:30 Pantoprazole (Protonix Tab) 40 mg DAILY@06 PO Last administered on 06/25/18 06:35; Admin Dose 40 MG; Start 06/22/18 at 06:00 Bromocriptine Mesylate (Parlodel) 2.5 mg QHS PO Last administered on 06/24/18 20:20; Admin Dose 2.5 MG; Start 06/24/18 at 21:00 Midodrine (Proamatine) 5 mg TID@,,17 PO Last administered on 06/25/18 11:04; Admin Dose 5 MG; Start 06/25/18 at 10:30 DWAYNE YEUNG MD Jun 25, 2018 12:34
--- NOTE | 2018-06-25 12:54 | CONS ---
Assessment/Plan Assessment/Plan Assessment/Plan (Daily) 1) Catheter related infection, Exit site infection, No bacteremia. 2) Non Functioning LUE AV 3) ESRD on HD 4) Hypercalemia- stable 5) MBD of CKD Plan; s/p new Right chest permacath, tolerated HD well yesterday pt regular schedule for HD is MWF will follow up Ok to d/c home tomorrow after HD on Wednesday Consultation Date/Type/Reason Admit Date/Time Jun 13, 2018 at 00:07 Initial Consult Date 06/14/18 Type of Consult NEPHROLOGY Requesting Provider: ERICK ROBERTSON Date/Time of Note DATE: 06/25/18 TIME: 12:53 Exam/Review of Systems Exam Vitals Vital Signs Date Temp Pulse Resp B/P (MAP) Pulse Ox O2 O2 Flow FiO2 Time Delivery Rate 06/25/18 89 16 86/40 (55) 97 11:00 06/25/18 98.1 07:46 06/24/18 Room Air 10:06 Intake and Output 06/24/18 06/24/18 06/25/18 1515:00 23:00 07:00 IntakeIntake Total 640 ml 650 ml 780 ml OutputOutput Total 1800 ml BalanceBalance -1160 ml 650 ml 780 ml Results Result Diagram: 06/23/18 0456 06/25/18 0526 Results 24hrs Laboratory Tests Test 06/25/18 00:48 06/25/18 05:26 Sodium Level 145 H 146 H Potassium Level 4.7 5.0 Chloride Level 101 100 Carbon Dioxide Level 22 22 Anion Gap 22 H 24 H Blood Urea Nitrogen 38 H 42 H Creatinine 8.13 H 8.76 H Est Glomerular Filtrat Rate mL/min 6 L 5 L Glucose Level 101 78 Calcium Level 10.5 H 10.5 H Medications Medication Current Medications Acetaminophen (Tylenol Tab) 650 mg Q6H PRN PO MILD PAIN(1-3)OR ELEVATED TEMP; Start 06/13/18 at 02:00 Naproxen (Naprosyn) 500 mg BID PRN PO PAIN AND/OR INFLAMMATION Last administered on 06/17/18at 11:12; Admin Dose 500 MG; Start 06/13/18 at 02:00 Sevelamer Carbonate (Renvela) 800 mg WITH MEALS PO Last administered on 06/25/18at 08:54; Admin Dose 800 MG; Start 06/13/18 at 08:00 Zolpidem Tartrate (Ambien) 10 mg QHS PRN PO INSOMNIA; Start 06/13/18 at 02:00 Morphine Sulfate (morphine) 2 mg Q4H PRN IV SEVERE PAIN LEVEL 7-10 Last administered on 06/24/18 23:33; Admin Dose 2 MG; Start 06/13/18 at 05:30 Albumin Human 100 ml @ 100 mls/hr WITH DIALYSIS PRN IV SBP <90 DURING DIALYSIS Last administered on 06/24/18 12:22; Admin Dose 100 MLS/HR; Start 06/13/18 at 1 5:30 Heparin Sodium (Porcine) (Heparin (1000 Units/ml)) 3,200 unit AFTER DIALYSIS CATHETER Last administered on 06/24/18 13:23; Admin Dose 3,200 UNIT; Start 06/13/18 at 16:30 Ondansetron HCl (Zofran Inj) 4 mg Q4H PRN IV NAUSEA AND/OR VOMITING Last administered on 06/17/18 10:59; Admin Dose 4 MG; Start 06/14/18 at 13:30 Calcitriol (Rocaltrol) 0.25 mcg QHS PO Last administered on 06/23/18 20:12; Admin Dose 0.25 MCG; Start 06/15/18 at 21:00 Diphenhydramine HCl (Benadryl) 50 mg Q6H PRN IV ITCHING Last administered on 06/25/18 08:54; Admin Dose 50 MG; Start 06/18/18 at 17:30 Pantoprazole (Protonix Tab) 40 mg DAILY@06 PO Last administered on 06/25/18 06:35; Admin Dose 40 MG; Start 06/22/18 at 06:00 Bromocriptine Mesylate (Parlodel) 2.5 mg QHS PO Last administered on 06/24/18 20:20; Admin Dose 2.5 MG; Start 06/24/18 at 21:00 Midodrine (Proamatine) 5 mg TID@,13,17 PO Last administered on 06/25/18 11:04; Admin Dose 5 MG; Start 06/25/18 at 10:30 Calcium Carbonate (Tums) 500 mg PC BREAKFAST DINNER PO ; Start 06/25/18 at 19:00 HENRIQUE GRANADO MD Jun 25, 2018 12:54
[2018-06-25] MEDS ORDERED: HYDROCODONE/APAP (5/325) TAB PO PRN (14:00)
[2018-06-25 14:13] VITALS: BP 98/54; PULSE 98; RESP 20
[2018-06-25] MEDS: morphine 2 MG INJ IV PRN (14:25)
[2018-06-25 16:05] VITALS: BP 86/48; PULSE 86; RESP 18
--- NOTE | 2018-06-25 16:16 | PN ---
Date/Time of Note Date/Time of Note DATE: 06/25/18 TIME: 16:15 Assessment/Plan VTE Prophylaxis Risk score (from Ns)>0 risk: 2 SCD applied (from Nsg): Yes Lines/Catheters IV Catheter Type (from Nrsg): Perez Urinary Cath still in place: No Assessment/Plan Assessment/Plan --Left upper extremity AV fistula nonfunctioning; currently getting hemodialysis - Dr. Francisco is following in vascular surgery consultation. - SP right chest PermCath placement yesterday -Status post right chest Perez catheter removal - Possible line sepsis, follow-up on blood cultures from the catheter, continue broad-spectrum antibiotics. - Dr. Arora is following in infection disease consultation. -Hemodialysis dependent end-stage renal disease. - Dr. Omalley is following in nephrology consultation. -History of hyperparathyroidism, status post subtotal parathyroidectomy of the right superior and inferior glands, partial left inferior gland in June 2016. - Endo follows - Status post left upper and lower parathyroidectomy and partial left thyroid lobectomy in November [address] Morales, ENT. -Dr. De La Fuente is following in endocrinology consultation. -Chronic hypotension, asymptomatic. Continue to monitor. SBP 101 -Left chest hemodialysis catheter present on admission, discontinued. Patient seen in collaboration with Dr Turner Result Diagram: 06/23/18 0456 06/25/18 0526 Results 24hrs Laboratory Tests Test 06/25/18 00:48 06/25/18 05:26 Sodium Level 145 H 146 H Potassium Level 4.7 5.0 Chloride Level 101 100 Carbon Dioxide Level 22 22 Anion Gap 22 H 24 H Blood Urea Nitrogen 38 H 42 H Creatinine 8.13 H 8.76 H Est Glomerular Filtrat Rate mL/min 6 L 5 L Glucose Level 101 78 Calcium Level 10.5 H 10.5 H Exam/Review of Systems Exam Vitals Vital Signs Date Temp Pulse Resp B/P (MAP) Pulse Ox O2 O2 Flow FiO2 Time Delivery Rate 06/25/18 98.1 86 18 86/48 (61) 98 16:05 06/24/18 Room Air 10:06 Intake and Output 06/24/18 06/24/18 06/25/18 1515:00 23:00 07:00 IntakeIntake Total 640 ml 650 ml 780 ml OutputOutput Total 1800 ml BalanceBalance -1160 ml 650 ml 780 ml Results Results 24hrs Laboratory Tests Test 06/25/18 00:48 06/25/18 05:26 Sodium Level 145 H 146 H Potassium Level 4.7 5.0 Chloride Level 101 100 Carbon Dioxide Level 22 22 Anion Gap 22 H 24 H Blood Urea Nitrogen 38 H 42 H Creatinine 8.13 H 8.76 H Est Glomerular Filtrat Rate mL/min 6 L 5 L Glucose Level 101 78 Calcium Level 10.5 H 10.5 H Medications Medication Current Medications Acetaminophen (Tylenol Tab) 650 mg Q6H PRN PO MILD PAIN(1-3)OR ELEVATED TEMP; Start 06/13/18 at 02:00 Naproxen (Naprosyn) 500 mg BID PRN PO PAIN AND/OR INFLAMMATION Last administered on 06/17/18 11:12; Admin Dose 500 MG; Start 06/13/18 at 02:00 Sevelamer Carbonate (Renvela) 800 mg WITH MEALS PO Last administered on 06/25/18 13:44; Admin Dose 800 MG; Start 06/13/18 at 08:00 Zolpidem Tartrate (Ambien) 10 mg QHS PRN PO INSOMNIA; Start 06/13/18 at 02:00 Morphine Sulfate (morphine) 2 mg Q4H PRN IV SEVERE PAIN LEVEL 7-10 Last administered on 06/25/18 14:25; Admin Dose 2 MG; Start 06/13/18 at 05:30 Albumin Human 100 ml @ 100 mls/hr WITH DIALYSIS PRN IV SBP <90 DURING DIALYSIS Last administered on 06/24/18 12:22; Admin Dose 100 MLS/HR; Start 06/13/18 at 15:30 Heparin Sodium (Porcine) (Heparin (1000 Units/ml)) 3,200 unit AFTER DIALYSIS CATHETER Last administered on 06/24/18 13:23; Admin Dose 3,200 UNIT; Start 06/13/18 at 16:30 Ondansetron HCl (Zofran Inj) 4 mg Q4H PRN IV NAUSEA AND/OR VOMITING Last administered on 06/17/18 10:59; Admin Dose 4 MG; Start 06/14/18 at 13:30 Calcitriol (Rocaltrol) 0.25 mcg QHS PO Last administered on 06/23/18 20:12; Admin Dose 0.25 MCG; Start 06/15/18 at 21:00 Diphenhydramine HCl (Benadryl) 50 mg Q6H PRN IV ITCHING Last administered on 06/25/18at 15:15; Admin Dose 50 MG; Start 06/18/18 at 17:30 Pantoprazole (Protonix Tab) 40 mg DAILY@06 PO Last administered on 06/25/18at 06:35; Admin Dose 40 MG; Start 06/22/18 at 06:00 Bromocriptine Mesylate (Parlodel) 2.5 mg QHS PO Last administered on 06/24/18at 20:20; Admin Dose 2.5 MG; Start 06/24/18 at 21:00 Midodrine (Proamatine) 5 mg TID@09,13,17 PO Last administered on 06/25/18at 13:44; Admin Dose 5 MG; Start 06/25/18 at 10:30 Calcium Carbonate (Tums) 500 mg PC BREAKFAST DINNER PO ; Start 06/25/18 at 19:00 Acetaminophen/ Hydrocodone Bitart ([place] (5/325)) 1 tab Q6H PRN PO MODERATE PAIN LEVEL 4-6; Start 06/25/18 at 14:00 EDILMA CASIANO Jun 25, 2018 16:16
--- NOTE | 2018-06-25 16:32 | PDOCDIS ---
Discharge Instructions HOME CARE INSTRUCTIONS: [id number] Diet Instructions: [id number] ACTIVITY: [id number] Activity Restrictions: [id number] Slowly Increase Activity Rest between Activity Avoid heavy lifting Do not operate Machinery Do not operate Power Tool Avoid Heavy Housework FOLLOW UP/APPOINTMENTS Follow-up Plan FU with Primary MD x 1 week FU with Box Annealer; information security engineer as recommended Call 911 or go to the nearest hospital if symptoms get worse- patient verbalized understanding discharge instructions Dw Dr Turner/staff EDILMA CASIANO Jun 25, 2018 16:32
[2018-06-25] MEDS ORDERED: PANT40TA4 PO (17:13)
[2018-06-25] MEDS ORDERED: BROM2.5T16 PO (17:13)
[2018-06-25] MEDS ORDERED: MIDO5TAB PO (17:13)
--- NOTE | 2018-06-25 17:21 | DS ---
Date/Time of Note Date/Time of Note DATE: 06/25/18 TIME: 17:21 Discharge Summary Admission/Discharge Info Admit Date/Time Jun 13, 2018 at 00:07 Discharge Date/Time Home Meds Active Scripts Pantoprazole* (Pantoprazole*) 40 Mg Tablet.dr, 40 MG PO DAILY@06 for 30 Days Prov:EDILMA CASIANO 06/25/18 Bromocriptine Mesylate* (Parlodel*) 2.5 Mg Tablet, 2.5 MG PO QHS for 30 Days, TAB Prov:EDILMA CASIANO 06/25/18 Midodrine* (Midodrine*) 5 Mg Tablet, 5 MG PO TID@,,17 for 30 Days, TAB Prov:EDILMA CASIANO 06/25/18 Naproxen* (Naprosyn*) 500 Mg Tablet, 500 MG PO BID PRN for PAIN AND/OR INFLAMMATION, #30 TAB Prov:LIANA DAWSON MD 05/14/18 Reported Medications Sevelamer Hcl* (Renagel*) 800 Mg Tablet, 800 MG PO WITH MEALS, TAB 05/14/18 Calcium Carbonate* (Tums X-Str) 300 Mg Tab.chew, 300 MG PO DAILY, TAB.CHEW 11/09/17 Zolpidem Tartrate* (Zolpidem Tartrate*) 10 Mg Tablet, 10 MG PO QHS PRN for INSOMNIA, #30 TAB 07/06/17 Follow-up Plan FU with Primary MD x 1 week FU with Comic Artist; enterprise application architect as recommended Call 911 or go to the nearest hospital if symptoms get worse- patient verbalized understanding discharge instructions Dw Dr Turner/staff [facility] Pending Labs Laboratory Tests Test 06/25/18 00:48 06/25/18 05:26 Sodium Level 145 mmol/L (135-144) 146 mmol/L (135-144) Potassium Level 4.7 mmol/L (3.5-5.1) 5.0 mmol/L (3.5-5.1) Chloride Level 101 mmol/L (97-110) 100 mmol/L (97-110) Carbon Dioxide Level 22 mmol/L (21-31) 22 mmol/L (21-31) Anion Gap 22 (5-13) 24 (5-13) Blood Urea Nitrogen 38 mg/dl (7-20) 42 mg/dl (7-20) Creatinine 8.13 mg/dl (0.44-1.00) 8.76 mg/dl (0.44-1.00) Est Glomerular Filtrat 6 mL/min (>60) 5 mL/min (>60) Rate mL/min Glucose Level 101 mg/dl (70-220) 78 mg/dl (70-220) Calcium Level 10.5 mg/dl (8.4-10.2) 10.5 mg/dl (8.4-10.2) EDILMA CASIANO Jun 25, 2018 17:21
[2018-06-25 18:18] VITALS: BP 92/48; PULSE 88; RESP 16
[2018-06-25] MEDS ORDERED: CALCIUM CARBONATE 500 MG CHEW TAB PO SCH (19:00)
== END 2018-06-25 18:40 | disposition home or self-care (01) | DRG 252 ==
LOC: E/R 20:09 → 2NE 06-13 00:07
PROVIDERS: ADMIT Internal Medicine; ATTEND Internal Medicine
PROC: 5A1D70Z Performance of Urinary Filtration, Intermittent, Less than 6 Hours Per Day (ICD-10-PCS; 2018-06-13)
PROC: 027V3ZZ Dilation of Superior Vena Cava, Percutaneous Approach (ICD-10-PCS; 2018-06-14)
PROC: 02HV33Z Insertion of Infusion Device into Superior Vena Cava, Percutaneous Approach (ICD-10-PCS; 2018-06-14)
PROC: B518YZA Fluoroscopy of Superior Vena Cava using Other Contrast, Guidance (ICD-10-PCS; 2018-06-14)
PROC: 02PY33Z Removal of Infusion Device from Great Vessel, Percutaneous Approach (ICD-10-PCS; principal; 2018-06-14 09:00)
PROC: 05733ZZ Dilation of Right Innominate Vein, Percutaneous Approach (ICD-10-PCS; 2018-06-14 09:00)
PROC: 02PY33Z Removal of Infusion Device from Great Vessel, Percutaneous Approach (ICD-10-PCS; 2018-06-23)
PROC: 057M3ZZ Dilation of Right Internal Jugular Vein, Percutaneous Approach (ICD-10-PCS; 2018-06-23)
PROC: 05733ZZ Dilation of Right Innominate Vein, Percutaneous Approach (ICD-10-PCS; 2018-06-23)
PROC: 027V3ZZ Dilation of Superior Vena Cava, Percutaneous Approach (ICD-10-PCS; 2018-06-23)
PROC: 02HV33Z Insertion of Infusion Device into Superior Vena Cava, Percutaneous Approach (ICD-10-PCS; 2018-06-23)
PROC: B518YZA Fluoroscopy of Superior Vena Cava using Other Contrast, Guidance (ICD-10-PCS; 2018-06-23)
DX: T82.7XXA Infection and inflammatory reaction due to other cardiac and vascular devices, implants and grafts, initial encounter (principal); N18.6 End stage renal disease; E22.1 Hyperprolactinemia; C95.90 Leukemia, unspecified not having achieved remission; I87.1 Compression of vein; L08.9 Local infection of the skin and subcutaneous tissue, unspecified; D63.1 Anemia in chronic kidney disease; E83.52 Hypercalcemia; E89.2 Postprocedural hypoparathyroidism; E28.39 Other primary ovarian failure; I95.89 Other hypotension; N91.1 Secondary amenorrhea; T82.868A Thrombosis due to vascular prosthetic devices, implants and grafts, initial encounter; Z99.2 Dependence on renal dialysis; Z88.3 Allergy status to other anti-infective agents
CPT/HCPCS: 36415; 37248; 37249; 70450; 70551; 75827; 80048; 80053; 82306; 82330; 82652; 82670; 83001; 83690; 83735; 83970; 84100; 84146; 84439; 84443; 84703; 85025; 87040; 87070; 87081; 87340; 90935; 93923; 93970; 96374; 96375; C1725; C1750; J0690; J1200; J1644; J2250; J2270; J2405; J2543; J3010; J7040; P9047; Q9967

== ENCOUNTER 2018-07-12 16:30 | Emergency (ER) | payer SELFPAY ==
[~2018-07-12 16:30] MED LIST changes: +BROM2.5T16 PO; -CALC300T4 PO; +MIDO5TAB PO; +PANT40TA4 PO
== END 2018-07-12 17:19 | disposition left against medical advice (07) ==
LOC: E/R 16:30
DX: Z53.21 Procedure and treatment not carried out due to patient leaving prior to being seen by health care provider (principal)

== ENCOUNTER 2018-07-13 03:59 | Inpatient (IN) | payer OTHER ==
[~2018-07-13] VITALS: Ht 162.6 cm; Wt 54.2 kg
[2018-07-13] MEDS ORDERED: CEFEPIME 2GM/50 ML (PMX) 50 ML IVPB STA (04:07)
[2018-07-13] MEDS ORDERED: LEVOFLOXACIN 750MG/D5W (PMX) 150 ML IVPB STA (04:07)
[2018-07-13] MEDS ORDERED: AZTREONAM 1 GM/NS (PMX) 50 ML IVPB STA (04:07)
[2018-07-13] MEDS ORDERED: ACETAMINOPHEN 500 MG TAB PO STA (04:09)
[2018-07-13] MEDS ORDERED: HYDROmorphONE 2 MG/ML SYG IV STA ×2 (04:33→06:23)
[2018-07-13] MEDS ORDERED: ONDANSETRON 4 MG INJ IV STA (04:33)
[2018-07-13] MEDS ORDERED: DIPHENHYDRAMINE 50 MG INJ ONE (04:59)
[2018-07-13] MEDS ORDERED: DIPHENHYDRAMINE 50 MG INJ IV ONE (05:00)
--- NOTE | 2018-07-13 05:57 | ERD ---
ER Documentation Chief Complaint Chief Complaint possible dialysis port infection HPI This is a very pleasant 32-year-old female comes in with fever and body aches. She also says that her dental work is drainage from and she noticed today after dialysis. She denies any nausea vomiting. She denies any other current issues ROS All systems reviewed and are negative except as per history of present illness. Medications Home Meds Active Scripts Pantoprazole* (Pantoprazole*) 40 Mg Tablet.dr, 40 MG PO DAILY@06 for 30 Days Prov:EDILMA CASIANO 06/25/18 Bromocriptine Mesylate* (Parlodel*) 2.5 Mg Tablet, 2.5 MG PO QHS for 30 Days, TAB Prov:EDILMA CASIANO 06/25/18 Midodrine* (Midodrine*) 5 Mg Tablet, 5 MG PO TID@09,13,17 for 30 Days, TAB Prov:EDILMA CASIANO 06/25/18 Naproxen* (Naprosyn*) 500 Mg Tablet, 500 MG PO BID PRN for PAIN AND/OR INFLAMMATION, #30 TAB Prov:LIANA DAWSON MD 05/14/18 Reported Medications Sevelamer Hcl* (Renagel*) 800 Mg Tablet, 800 MG PO WITH MEALS, TAB 05/14/18 Zolpidem Tartrate* (Zolpidem Tartrate*) 10 Mg Tablet, 10 MG PO QHS PRN for IN SOMNIA, #30 TAB 07/06/17 Allergies Allergies: Coded Allergies: vancomycin (Unverified Allergy, Severe, 07/13/18) pruritus pineapple (Unverified Allergy, Mild, 07/13/18) watermelon (Unverified Allergy, Unknown, 07/13/18) peach (Unverified Adverse Reaction, Unknown, HEADACHE, 07/13/18) PMhx/Soc History of Surgery: Yes (Thyroid Surgery x 2, fistual plct, dialysis cath plct, ) Anesthesia Reaction: No Hx 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 Disorder: No Hx Respiratory Disorders: No Hx Cardiac Disorders: Yes (HTN ) Hx Psychiatric Problems: No Hx Miscellaneous Medical Probl: Yes (kidney failure, leukemia, on chemo and radiation) Hx Alcohol Use: No Hx Substance Use: No Hx Tobacco Use: No Smoking Status: Never smoker Physical Exam Vitals Vital Signs Date Temp Pulse Resp B/P (MAP) Pulse Ox O2 O2 Flow FiO2 Time Delivery Rate 07/13/18 103.2 04:28 07/13/18 103.2 138 19 119/101 100 Room Air 04:24 (107) 07/13/18 104.4 135 24 111/69 100 04:07 (83) Physical Exam Const: No acute distress Head: Atraumatic Eyes: Normal Conjunctiva ENT: Normal External Ears, Nose and Mouth. Neck: Full range of motion. No meningismus. Resp: Clear to auscultation bilaterally Cardio: Regular rate and rhythm, no murmurs Abd: Soft, non tender, non distended. Normal bowel sounds Skin: No petechiae or rashes Back: No midline or flank tenderness Ext: No cyanosis, or edema Neur: Awake and alert Psych: Normal Mood and Affect Result Diagram: 07/13/1842007/13/18420 Results 24 hrs Laboratory Tests Test 07/13/18 04:20 07/13/18 04:21 POC Venous Lactate 1.0 mmol/L White Blood Count 8.3 10^3/ul Red Blood Count 2.83 10^6/ul Hemoglobin 9.2 g/dl Hematocrit 29.4 % Mean Corpuscular Volume 103.9 fl Mean Corpuscular Hemoglobin 32.5 pg Mean Corpuscular Hemoglobin Concent 31.3 g/dl Red Cell Distribution Width 14.6 % Platelet Count 123 10^3/UL Mean Platelet Volume 10.6 fl Immature Granulocytes % 0.400 % Neutrophils % 86.9 % Lymphocytes % 4.7 % Monocytes % 7.6 % Eosinophils % 0.2 % Basophils % 0.2 % Nucleated Red Blood Cells % 0.0 /100WBC Immature Granulocytes # 0.030 10^3/ul Neutrophils # 7.2 10^3/ul Lymphocytes # 0.4 10^3/ul Monocytes # 0.6 10^3/ul Eosinophils # 0.0 10^3/ul Basophils # 0.0 10^3/ul Nucleated Red Blood Cells # 0.0 10^3/ul Prothrombin Time 15.1 Sec Prothrombin Time Ratio 1.2 INR International Normalized Ratio 1.18 Activated Partial Thromboplast Time 37.5 Sec Sodium Level 142 mmol/L Potassium Level 5.2 mmol/L Chloride Level 97 mmol/L Carbon Dioxide Level 23 mmol/L Anion Gap 22 Blood Urea Nitrogen 52 mg/dl Creatinine 9.54 mg/dl Est Glomerular Filtrat Rate mL/min 5 mL/min Glucose Level 109 mg/dl Calcium Level 9.7 mg/dl Total Bilirubin 0.2 mg/dl Direct Bilirubin 0.00 mg/dl Indirect Bilirubin 0.2 mg/dl Aspartate Amino Transf (AST/SGOT) 17 IU/L Alanine Aminotransferase (ALT/SGPT) 16 IU/L Alkaline Phosphatase 74 IU/L Troponin I < 0.012 ng/ml Total Protein 7.9 g/dl Albumin 4.9 g/dl Globulin 3.00 g/dl Albumin/Globulin Ratio 1.63 Current Medications Medications Dose Sig/Twila Start Time Status Last (Trade) Ordered Route PRN Stop Time Admin Dose Reason Admin Aztreonam 50 ml @ ONCE STAT 07/13/18 DC 07/13/18 100 mls/hr IVPB 04:07 04:50 07/13/18 04:36 150 ml @ ONCE STAT 07/13/18 DC 07/13/18 Levofloxacin/ 100 mls/hr IVPB 04:07 05:06 Dextrose 07/13/18 05:36 Cefepime HCl 50 ml @ ONCE STAT 07/13/18 DC 07/13/18 100 mls/hr IVPB 04:07 04:28 07/13/18 04:36 1,000 mg ONCE STAT 07/13/18 DC 07/13/18 Acetaminophen PO 04:09 04:28 (Tylenol 07/13/18 04:11 Tab) 1 mg ONCE STAT 07/13/18 DC 07/13/18 Hydromorphone IV 04:33 04:40 HCl 07/13/18 04:37 (Dilaudid) Ondansetron 4 mg ONCE STAT 07/13/18 DC 07/13/18 HCl (Zofran IV 04:33 04:40 Inj) 07/13/18 04:37 25 mg ONCE ONCE 07/13/18 DC 07/13/18 Diphenhydrami IV 05:00 05:05 ne HCl 07/13/18 05:08 (Benadryl) 50 mg STK-MED 07/13/18 DC Diphenhydrami ONCE .ROUTE 04:59 ne HCl 07/13/18 05:00 (Benadryl) Procedures/MDM Emergency department course: Patient seen and evaluated triage nurse. Code sepsis initiated. Septic workup initiated. Fluids withheld as the patient is a dialysis patient. Antibiotic started post cultures. Serial exams are stable. Fever treated with Tylenol p.o. Diagnostic data Chest X-ray 1V Interpreted by me: Soft Tissue: No acute abnormalities Bones: No acute abnormalities Mediastinum/Cardiac Silhouette/Lungs: [No acute abnormalities] EKG: Rate/Rhythm: Regular rhythm, tachycardic rate QRS, ST, T-waves: [No changes consistent w/ acute ischemia] Impression: Sinus tachycardia Sepsis Documentation: Patient's infectious symptoms have not stabilized and the patient is at risk of rapid decompensation. The patient will be admitted for careful hydration, antibiotic therapy, and infectious source control. SEVERE SEPSIS CRITERIA: Infectious source: Dialysis point [place] End organ damage indicated by: [Lactate > 2.0 mmol/L Hypotension (SBP < 90 or >40 mmHG drop or MAP < 65) SEPSIS MANAGEMENT Time of recognition of sepsis: [Upon arrival]. Time of recognition of severe sepsis: [No severe sepsis at this time]. Time of recognition of septic shock: [No septic shock at this time]. 3 HOUR BUNDLE Blood cultures x 2 before broad-spectrum antibiotics: [Yes] 30 ml/kg NS bolus [Completed]-------- deferred secondary to a history of dialysis and fluid overload Initial lactate 1.0 Repeat lactate pending SEPTIC SHOCK ASSESSMENT: [No] lactic acid > 4.0 [No] Persistent hypotension (SBP < 90 or 40 mmHg drop, MAP < 65) despite 30 mL/kg IV fluid bolus VOLUME REASSESSMENT FOR SEPTIC SHOCK: Reevaluation Time: 5:55 AM Temp 99.6 BP 111/84, HR 115 respiratory rate 18 pox 100% Heart [Regular rate & rhythm] Lungs [No crackles] Skin [Warm & dry] Cap Refill [Less than 2 seconds] Peripheral pulses [Radially present] Critical care time [35] minutes Emergent fluid management while maintaining close respiratory support. Provision of immediate and broad-spectrum antibiotic therapy. Simultaneous assessment for possible sources in order to direct targeted therapy. Consideration for invasive and chemical support to prevent cardiopulmonary collapse. Critical care time is independent of procedures performed. Departure Diagnosis: Primary Impression: Fever Fever type: unspecified Qualified Codes: R50.9 - Fever, unspecified Condition: Serious MATT CHERY Jul 13, 2018 05:57
[2018-07-13 08:30] VITALS: Ht 162.6 cm; Wt 54.2 kg
[2018-07-13] MEDS ORDERED: HYDROCODONE/APAP (5/325) TAB PO PRN (09:00)
[2018-07-13] MEDS: HYDROmorphONE 0.5 MG/0.5 ML SYG IV PRN ×3 (09:04→18:42)
[2018-07-13] MEDS ORDERED: MEROPENEM 500MG/50 ML (PMX) 50 ML IVPB SCH (10:00)
[2018-07-13] MEDS: SEVELAMER CARBONATE 800 MG TABLET PO SCH ×2 (12:43→17:21)
[2018-07-13] MEDS: DIPHENHYDRAMINE 50 MG INJ IV PRN ×2 (12:43→20:45)
[2018-07-13] MEDS: ONDANSETRON 4 MG INJ IV PRN (12:44)
[2018-07-13] MEDS: ACETAMINOPHEN 325 MG TAB PO PRN ×2 (12:57→18:45)
[2018-07-13 13:48] VITALS: BP 102/61; PULSE 129; RESP 18
[2018-07-13] MEDS: MULTIVIT/CA CARB/B CMPLX/FA TAB PO SCH (17:21)
[2018-07-13 19:56] VITALS: BP 112/59; PULSE 112; RESP 20
[2018-07-13] MEDS ORDERED: HYDROmorphONE 0.5 MG/0.5 ML SYG IV PRN (20:30)
--- NOTE | 2018-07-13 22:31 | CONS ---
DATE OF ADMISSION: 07/13/2018 DATE OF CONSULTATION: 07/13/2018 HISTORY OF PRESENT ILLNESS: This is a 32-year-old, para 1, 1, single Latin female with a history of hypertension, end-stage kidney disease on hemodialysis, status post parathyroidectomy for SECONDARY hyperparathyroidism. The patient has been followed by Dr. Jones in [facility] and has been maintained on multiple medications including Renagel, multivitamins, hydrocodone, vitamin D, Tylenol, and Epogen for anemia. The patient has been admitted with severe back pain and high fever with a temperature above 104, and she has been already given IV antibiotics and transferred to the medical floor for further evaluation and treatment. At this time, the workup includes the patient to have had a chest x-ray which is negative. Past history includes multiple admissions in this hospital. Please refer to the hospital chart for further detail. The patient has had a rather complicated course after the parathyroidectomy with severe persistent hypocalcemia which was finally stabilized. At this time, patient has settled down with the temperature coming down and she has had dialysis this morning. She is not having any chills at this time. There is no cough, hemoptysis. No other source of infection. Please note what is not clear is that the patient has been, since the last admission, diagnosed to have leukemia of some sort, and I cannot get any further information except the lab work has shown patient to have white count 8.3, hematocrit 29.4, and the platelet count is low at 123,000. Chemistry shows sodium 142, potassium 5.2, chloride is 97, CO2 is 23, BUN is 52, creatinine 9.54. Albumin is normal at 4.9. The patient's lactic acid is 1.3. INR is 1.2 and PTT is 37.5 seconds. The rest of the past, personal and family history is available in the hospital records. SYSTEM REVIEW: Negative for any head, ear, nose, throat problem. The patient apparently has been getting some chemotherapy and has not had any active bleeding from any source. Pt has had some Porter Sample Case isues, details of which are not discernible Pt is unable to verbalize re a blood disorder for which she's under care of an oncologist! PHYSICAL EXAMINATION: GENERAL: Revealed the patient to be a pleasant Latin female who is in no acute distress. VITAL SIGNS: Blood pressure is 130/70. Heart rate is 78. Temperature is 97. Respiration is not labored at 18. HEENT: Pt is earing a hat? Rest of her exam of the head, ears, nose and throat is unremarkable. Eyes: Symmetrical pupils. Pale conjunctivae. Sclerae are anicteric. Nose: Normal mucosa. Throat: Tongue is pale. NECK: Supple. No jugular venous distention. CHEST: Symmetrical. BREASTS: Not examined. LUNGS: Clear. HEART: Regular rhythm. S1, S2 unremarkable. CHEST: Right chest wall permanent catheter is in place. ABDOMEN: Flat, soft. No hepatosplenomegaly. No masses. GENITALIA: Not examined. EXTREMITIES: Left arm AV fistula is clotted. SKIN: Pale. IMPRESSION: 1. History of hypertension, end-stage kidney disease, nephrosclerosis on HD. 2. Question of chronic blood disorder with thrombocytopenia, anemia, multifactorial (Of ch Renal Failure). Exact Dx unknown!! 3. Line sepsis, prob staphylococcal. PLAN: At this time, patient has already been treated with IV antibiotics and hopefully we can salvage this catheter. Antibiotics will be continued vigorously and hemodialysis maintenance therapy will be continued as well. The patient's lab will be monitored & she'd will be followed closely. I'd notify Dr Jones re her status. Dictated By: CAMERON SMITH/MIKE Conf#: [id number] DID#: [id number] CC: LUANNE WALTER MD;*EndCC* MTDD
[2018-07-13] MEDS: LIDOCAINE 5% PATCH TD SCH (22:37)
[2018-07-13] MEDS: LINEZOLID 600 MG/D5W (PMX) 300 ML IVPB SCH (22:37)
[2018-07-13] MEDS ORDERED: NAPROXEN 500 MG TAB PO PRN (23:30)
[2018-07-13] MEDS ORDERED: ZOLPIDEM 5 MG TAB PO PRN (23:30)
[2018-07-14] VITALS (20 sets, daily range): BP systolic 93–118; BP diastolic 56–77; PULSE 78–118; RESP 18–20
[2018-07-14] MEDS: ONDANSETRON 4 MG INJ IV PRN (00:17)
[2018-07-14] MEDS: morphine 4 MG/ML VIAL IV PRN ×5 (01:13→20:11)
[2018-07-14] MEDS: ACETAMINOPHEN 325 MG TAB PO PRN (02:53)
[2018-07-14] MEDS: DIPHENHYDRAMINE 50 MG INJ IV PRN ×4 (02:54→21:35)
[2018-07-14] MEDS ORDERED: DIPHENHYDRAMINE 50 MG INJ IV PRN (06:30)
[2018-07-14] MEDS: PANTOPRAZOLE (EC) 40 MG TAB PO SCH (06:54)
[2018-07-14] MEDS: SEVELAMER CARBONATE 800 MG TABLET PO SCH ×3 (07:50→20:46)
[2018-07-14] MEDS: MULTIVIT/CA CARB/B CMPLX/FA TAB PO SCH (08:47)
[2018-07-14] MEDS: MIDODRINE 5 MG TAB PO SCH ×3 (08:47→20:10)
--- NOTE | 2018-07-14 08:47 | CONS ---
DATE OF ADMISSION: 07/13/2018 DATE OF CONSULTATION: 07/14/2018 Dear Doctors: The patient is a 32-year-old female with a history of end-stage renal disease for the past 9 years an d the recent leukemia in which she had undergone chemotherapy. Her last cycle appeared to be about a month and a half ago in which she had presented with some drainage from her right chest wall cathete r. Upon her last admission, the patient was evaluated at the site of her right chest wall catheter. Her catheter was subsequently removed and the tip was sent for culture and blood cultures which were all negative. Subsequently, she had a new Vaac-Y-Ceimprpx placed and was discharged and it appears now the patient has new episodes of fevers and drainage identified from her catheter site. Upon eval uation at the bedside, her chest wall catheter is essentially freely came out with no bleeding and so me serous drainage was identified. Manual compression was held during our evaluation and a dry dress ing was applied. The patient denies any shortness of breath, chest pain, nausea, vomiting, fever or chills. REVIEW OF SYSTEMS: A 14-point review performed and negative except what is mentioned in the HPI. PAST MEDICAL HISTORY: Entails end-stage renal disease, anemia of chronic disease, leukemia and hemod ialysis Wednesday, Wednesday, and Wednesday, hyperparathyroidism, hungry bone syndrome. PAST SURGICAL HISTORY: Parathyroidectomy in 2017. Left arm AV fistula creation, multiple bilateral chest wall catheter placements. FAMILY HISTORY: Hypertension. SOCIAL HISTORY: Heavy drinker in the past. Currently, denies alcohol, tobacco or illicit drug use. PHYSICAL EXAMINATION: GENERAL: Alert and oriented x3, in no apparent distress. HEENT: Normocephalic, atraumatic. Mucosa moist. Alopecia. NECK: Supple, no carotid bruit. PULMONARY: Clear to auscultation bilaterally. No crackles. Right chest wall catheter site with becka e serous drainage. The catheter upon evaluation of our dressing removal came out without any resista nce. The secure sutures from the past were no longer there. Manual compression was held and adequat e hemostasis was achieved after a few minutes. A new dry dressing and tape was applied. CARDIOVASCULAR: S1, S2 present. ABDOMEN: Soft, nontender, nondistended. Bowel sounds positive. RIGHT LOWER EXTREMITY: Right lower extremity palpable femoral pulse, faint pedal pulse. Motor, sens ory intact. Capillary refill is 3 seconds. LEFT LOWER EXTREMITY: Palpable femoral pulse, faint pedal pulse. Motor, sensory intact. Capillary refill is 3 seconds. ASSESSMENT AND PLAN: 1. End-stage renal disease and central stenosis: It seems that the patient's right chest wall luis daniel ter may have had line sepsis as there was identification of some serous drainage from the catheter tu nnel site. During our examination, the catheter came out with ease without any resistance. No signi ficant bleeding was identified during that time. Manual compression was held for a few minutes and a dry dressing was applied. 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 She does have central stenosis on her right side. As the catheter has been removed, the line holiday will be adequate and we will schedule the patient for a Perez c atheter placement with our IR colleagues for now. 2. From access creation we will wait until the patient's symptoms have resolved and future blood cul tures are drawn for further evaluation. 3. Discussed findings, plan and management with the patient and she understands all that is involved and has agreed to proceed with having our IR colleagues place a Perez catheter. 4. Optimize vascular status (BP meds, diet, nutrition, exercise, sugar control). 5. We would recommend for the patient to follow up with our hematology colleagues for further evalua tion of her leukemia. Thank you for allowing us to partake in the care of this patient. Please call us with any questions. Dictated By: MIMI ALVA/MIKE Conf#: [id number] DID#: [id number] CC: CAMERON ISIDRO MD; LUANNE WALTER MD;*EndCC*
[2018-07-14] MEDS: LIDOCAINE 5% PATCH TD SCH (08:50)
[2018-07-14] MEDS: LINEZOLID 600 MG/D5W (PMX) 300 ML IVPB SCH (09:52)
[2018-07-14] MEDS ORDERED: LIDOCAINE 1% (MDV) 20 ML INJ ONE (11:04)
[2018-07-14] MEDS ORDERED: HEPARIN 1000 UNITS/ML 10 ML INJ ONE (11:04)
[2018-07-14] MEDS ORDERED: HEPARIN 1000 UNITS/NS (A-LINE) 1,000 ML ONE (11:04)
[2018-07-14] MEDS ORDERED: FENTAnyl 50 MCG/ML VIAL ONE (11:05)
--- NOTE | 2018-07-14 12:13 | HP ---
Date/Time of Note Date/Time of Note DATE: 07/14/18 TIME: 11:52 Assessment/Plan VTE Prophylaxis [place] [facility]: 2 SCD applied [place] [facility] No SCD contraindicated: other Pharmacological prophylaxis: other Pharm contraindication: other Lines/Catheters IV Catheter Type (from [facility]): Peripheral IV Urinary Cath still in place: No Assessment/Plan Assessment/Plan -Possible line sepsis, -follow-up on blood cultures from the catheter -started on Meropenem/Zyvox - will get ID consult-Dr. Arora in infection disease consultation. -am labs - c/s aground port insertion side - Hyperkalemia - pr nephro - HD per nephro -Hemodialysis dependent end-stage renal disease. - HD per Dr Silverio in nephrology consultation. -History of hyperparathyroidism, status post subtotal parathyroidectomy of the right superior and inferior glands, partial left inferior gland in June 2016. - Status post left upper and lower parathyroidectomy and partial left thyroid lobectomy in November [address] Morales, ENT. -Right chest hemodialysis catheter present on admission. -Left upper extremity AV fistula nonfunctioning - Dr. Nolan boone in vascular surgery consultation. Further recommendations based on clinical course. Plan of care discussed with Dr. Turner. Result Diagram: 07/13/1842007/13/18420 HPI/ROS Admit Date/Time Admit Date/Time Jul 13, 2018 at 05:59 Hx of Present Illness - Patient seen yesterday;febrile;for HD today stared on G[place]/ Zyvox; vascular follows will get ID consult dw staff ROS The patient is a 32-year-old female with a history of end-stage renal disease x 9 years and the recent leukemia; sp chemotherapy. Patient is admitted with c/o some drainage from her right chest wall catheter. Broad spectrum antibiotic started; id consult appreciated; vascular sx notified as well.The patient denies any shortness of breath, chest pain, nausea, vomiting, fever or chills. Plan if care wesley Turner/patient/staff. Constitutional: febrile Eyes: no complaints ENT: no complaints Respiratory: no complaints Cardiovascular: no complaints Gastrointestinal: no complaints Genitourinary: no complaints Musculoskeletal: no complaints Skin: other (right chest-port a cath- pain;discharge (reported)) Neurologic: no complaints Endocrine: no complaints Psychological: nl mood/affect Immunologic: no complaints PMH/Family/Social Past Medical History Medications Current Medications Acetaminophen (Tylenol Tab) 650 mg Q4H PRN PO MILD PAIN(1-3)OR ELEVATED TEMP Last administered on 07/14/18 02:53; Admin Dose 650 MG; Start 07/13/18 at 09:00 Meropenem/Sodium Chloride 50 ml @ 100 mls/hr Q24H IVPB Last administered on 07/13/18 11:10; Admin Dose 100 MLS/HR; Start 07/13/18 at 10:00 Ondansetron HCl (Zofran Inj) 4 mg Q6H PRN IV NAUSEA AND/OR VOMITING Last admini stered on 07/14/18 00:17; Admin Dose 4 MG; Start 07/13/18 at 09:00 Acetaminophen/ Hydrocodone Bitart ([place] (5/325)) 1 tab Q4H PRN PO MODERATE PAIN LEVEL 4-6 Last administered on 07/13/18 16:21; Admin Dose 1 TAB; Start 07/13/18 at 09:00 Sevelamer Carbonate (Renvela) 2,400 mg WITH MEALS PO Last administered on 07/13/18 12:43; Admin Dose 2,400 MG; Start 07/13/18 at 11:40 Multivit/Ca Carb/ B Cmplx/FA/Prenat (Aminah-Tanisha) 1 tab DAILY PO Last administered on 07/13/18 17:21; Admin Dose 1 TAB; Start 07/13/18 at 09:00 Lidocaine (Lidoderm) 1 patch DAILY TD Last administered on 07/14/18 08:50; A dmin Dose 1 PATCH; Start 07/13/18 at 21:30 Linezolid 300 ml @ 300 mls/hr Q12 IVPB Last administered on 07/14/18 09:52; Admin Dose 300 MLS/HR; Start 07/13/18 at 22:00 Bromocriptine Mesylate (Parlodel) 2.5 mg QHS PO ; Start 07/14/18 at 21:00 Midodrine (Proamatine) 5 mg TID@09,13,17 PO ; Start 07/14/18 at 09:00 Naproxen (Naprosyn) 500 mg BID PRN PO PAIN AND/OR INFLAMMATION; Start 07/13/18 at 23:30 Pantoprazole (Protonix Tab) 40 mg DAILY@06 PO Last administered on 07/14/18at 06:54; Admin Dose 40 MG; Start 07/14/18 at 06:00 Zolpidem Tartrate (Ambien) 10 mg QHS PRN PO INSOMNIA; Start 07/13/18 at 23:30 Morphine Sulfate (morphine) 4 mg Q3H PRN IV SEVERE PAIN LEVEL 7-10 Last administered on 07/14/18at 11:05; Admin Dose 4 MG; Start 07/14/18 at 01:00 Diphenhydramine HCl (Benadryl) 50 mg Q6H PRN IV itchiness Last administered on 07/14/18at 09:19; Admin Dose 50 MG; Start 07/14/18 at 03:00 Coded Allergies: vancomycin (Unverified Allergy, Severe, 07/13/18) pruritus pineapple (Unverified Allergy, Mild, 07/13/18) watermelon (Unverified Allergy, Unknown, 07/13/18) peach (Unverified Adverse Reaction, Unknown, HEADACHE, 07/13/18) Past Surgical History Past Surgical Hx: other Family History Significant Family History: hypertension Social History Smoking Status: Never smoker Exam/Review of Systems Vital Signs Vitals Vital Signs Date Temp Pulse Resp B/P (MAP) Pulse Ox O2 O2 Flow FiO2 Time Delivery Rate 07/14/18 97.8 78 18 104/63 93 Room Air 08:29 (77) Intake and Output 07/13/18 07/13/18 07/14/18 1515:00 23:00 07:00 IntakeIntake Total 650 ml 400 ml 300 ml BalanceBalance 650 ml 400 ml 300 ml Exam Constitutional: alert, well developed Psych: nl mood/affect Head: normocephalic Eyes: EOMI, nl lids, nl sclera ENMT: nl external ears & nose Neck: non-tender Respiratory: clear to auscultation Cardiovascular: nl pulses, other (s1s2 ; right [id number] - redness,dischrge reportedby staff) Gastrointestinal: soft, non-tender Genitourinary - Female: other (due for HD today ) Musculoskeletal: nl extremities to inspection Extremities: normal pulses 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: nl mental status, nl speech Skin: other (right chest-port a cath- erythema,edema, discharge (reported);will do c/s portsite; vascular follows-plan to dc line ) Lymph: nontender EDILMA CASIANO Jul 14, 2018 12:02
--- NOTE | 2018-07-14 12:18 | HPN ---
Date/Time of Note Date/Time of Note DATE: 07/14/18 TIME: 12:18 Interval H&P Admission Note Pt. seen H&P reviewed: No system changes SARANYA ALBERTO MD Jul 14, 2018 12:18
--- NOTE | 2018-07-14 12:18 | CONS ---
Assessment/Plan Assessment/Plan Hospital Course (Demo Recall) Asked to consult. will be in shortly. ty Consultation Date/Type/Reason Admit Date/Time Jul 13, 2018 at 05:59 Date/Time of Note DATE: 07/14/18 TIME: 12:18 Past Medical History Home Meds Active Scripts Pantoprazole* (Pantoprazole*) 40 Mg Tablet.dr, 40 MG PO DAILY@06 for 30 Days Prov:EDILMA CASIANO 06/25/18 Bromocriptine Mesylate* (Parlodel*) 2.5 Mg Tablet, 2.5 MG PO QHS for 30 Days, TAB Prov:EDILMA CASIANO 06/25/18 Midodrine* (Midodrine*) 5 Mg Tablet, 5 MG PO TID@,,17 for 30 Days, TAB Prov:EDILMA CASIANO 06/25/18 Naproxen* (Naprosyn*) 500 Mg Tablet, 500 MG PO BID PRN for PAIN AND/OR INFLAMMATION, #30 TAB Prov:LIANA DAWSON MD 05/14/18 Reported Medications Sevelamer Hcl* (Renagel*) 800 Mg Tablet, 800 MG PO WITH MEALS, TAB 05/14/18 Zolpidem Tartrate* (Zolpidem Tartrate*) 10 Mg Tablet, 10 MG PO QHS PRN for INSOMNIA, #30 TAB 07/06/17 Medications Current Medications Acetaminophen (Tylenol Tab) 650 mg Q4H PRN PO MILD PAIN(1-3)OR ELEVATED TEMP Last administered on 07/14/18at 02:53; Admin Dose 650 MG; Start 07/13/18 at 09:00 Meropenem/Sodium Chloride 50 ml @ 100 mls/hr Q24H IVPB Last administered on 07/13/18at 11:10; Admin Dose 100 MLS/HR; Start 07/13/18 at 10:00 Ondansetron HCl (Zofran Inj) 4 mg Q6H PRN IV NAUSEA AND/OR VOMITING Last administered on 07/14/18at 00:17; Admin Dose 4 MG; Start 07/13/18 at 09:00 Acetaminophen/ Hydrocodone Bitart ([place] (5/325)) 1 tab Q4H PRN PO MODERATE PAIN LEVEL 4-6 Last administered on 07/13/18at 16:21; Admin Dose 1 TAB; Start 07/13/18 at 09:00 Sevelamer Carbonate (Renvela) 2,400 mg WITH MEALS PO Last administered on 07/13/18at 12:43; Admin Dose 2,400 MG; Start 07/13/18 at 11:40 Multivit/Ca Carb/ B Cmplx/FA/Prenat (Aminah-Tanisha) 1 tab DAILY PO Last administered on 07/13/18at 17:21; Admin Dose 1 TAB; Start 07/13/18 at 09:00 Lidocaine (Lidoderm) 1 patch DAILY TD Last administered on 07/14/18at 08:50; Admin Dose 1 PATCH; Start 07/13/18 at 21:30 Linezolid 300 ml @ 300 mls/hr Q12 IVPB Last administered on 07/14/18at 09:52; Admin Dose 300 MLS/HR; Start 07/13/18 at 22:00 Bromocriptine Mesylate (Parlodel) 2.5 mg QHS PO ; Start 07/14/18 at 21:00 Midodrine (Proamatine) 5 mg TID@09,13,17 PO ; Start 07/14/18 at 09:00 Naproxen (Naprosyn) 500 mg BID PRN PO PAIN AND/OR INFLAMMATION; Start 07/13/18 at 23:30 Pantoprazole (Protonix Tab) 40 mg DAILY@06 PO Last administered on 07/14/18at 06:54; Admin Dose 40 MG; Start 07/14/18 at 06:00 Zolpidem Tartrate (Ambien) 10 mg QHS PRN PO INSOMNIA; Start 07/13/18 at 23:30 Morphine Sulfate (morphine) 4 mg Q3H PRN IV SEVERE PAIN LEVEL 7-10 Last administered on 07/14/18at 11:05; Admin Dose 4 MG; Start 07/14/18 at 01:00 Diphenhydramine HCl (Benadryl) 50 mg Q6H PRN IV itchiness Last administered on 07/14/18at 09:19; Admin Dose 50 MG; Start 07/14/18 at 03:00 Allergies: Coded Allergies: vancomycin (Unverified Allergy, Severe, 07/13/18) pruritus pineapple (Unverified Allergy, Mild, 07/13/18) watermelon (Unverified Allergy, Unknown, 07/13/18) peach (Unverified Adverse Reaction, Unknown, HEADACHE, 07/13/18) Past Surgical History Past Surgical Hx: other Social History Smoking Status: Never smoker Exam/Review of Systems Exam Vitals Vital Signs Date Temp Pulse Resp B/P (MAP) Pulse Ox O2 O2 Flow FiO2 Time Delivery Rate 07/14/18 97.8 78 18 104/63 93 Room Air 08:29 (77) Intake and Output 07/13/18 07/13/18 07/14/18 1515:00 23:00 07:00 IntakeIntake Total 650 ml 400 ml 300 ml BalanceBalance 650 ml 400 ml 300 ml Results Result Diagram: 07/13/1842007/13/18 042 Medications Medication Current Medications Acetaminophen (Tylenol Tab) 650 mg Q4H PRN PO MILD PAIN(1-3)OR ELEVATED TEMP Last administered on 07/14/18 02:53; Admin Dose 650 MG; Start 07/13/18 at 09:00 Meropenem/Sodium Chloride 50 ml @ 100 mls/hr Q24H IVPB Last administered on 07/13/18at 11:10; Admin Dose 100 MLS/HR; Start 07/13/18 at 10:00 Ondansetron HCl (Zofran Inj) 4 mg Q6H PRN IV NAUSEA AND/OR VOMITING Last administered on 07/14/18 00:17; Admin Dose 4 MG; Start 07/13/18 at 09:00 Acetaminophen/ Hydrocodone Bitart ([place] (5/325)) 1 tab Q4H PRN PO MODERATE PAIN LEVEL 4-6 Last administered on 07/13/18 16:21; Admin Dose 1 TAB; Start 07/13/18 at 09:00 Sevelamer Carbonate (Renvela) 2,400 mg WITH MEALS PO Last administered on 07/13/18 12:43; Admin Dose 2,400 MG; Start 07/13/18 at 11:40 Multivit/Ca Carb/ B Cmplx/FA/Prenat (Aminah-Tanisha) 1 tab DAILY PO Last administered on 07/13/18 17:21; Admin Dose 1 TAB; Start 07/13/18 at 09:00 Lidocaine (Lidoderm) 1 patch DAILY TD Last administered on 07/14/18 08:50; Admin Dose 1 PATCH; Start 07/13/18 at 21:30 Linezolid 300 ml @ 300 mls/hr Q12 IVPB Last administered on 07/14/18at 09:52; Admin Dose 300 MLS/HR; Start 07/13/18 at 22:00 Bromocriptine Mesylate (Parlodel) 2.5 mg QHS PO ; Start 07/14/18 at 21:00 Midodrine (Proamatine) 5 mg TID@09,13,17 PO ; Start 07/14/18 at 09:00 Naproxen (Naprosyn) 500 mg BID PRN PO PAIN AND/OR INFLAMMATION; Start 07/13/18 at 23:30 Pantoprazole (Protonix Tab) 40 mg DAILY@06 PO Last administered on 07/14/18at 06 :54; Admin Dose 40 MG; Start 07/14/18 at 06:00 Zolpidem Tartrate (Ambien) 10 mg QHS PRN PO INSOMNIA; Start 07/13/18 at 23:30 Morphine Sulfate (morphine) 4 mg Q3H PRN IV SEVERE PAIN LEVEL 7-10 Last a dministered on 07/14/18at 11:05; Admin Dose 4 MG; Start 07/14/18 at 01:00 Diphenhydramine HCl (Benadryl) 50 mg Q6H PRN IV itchiness Last administered on 07/14/18at 09:19; Admin Dose 50 MG; Start 07/14/18 at 03:00 MUMTAZ LOPEZ MD Jul 14, 2018 12:18
--- NOTE | 2018-07-14 12:21 | PN ---
Date/Time of Note Date/Time of Note DATE: 07/14/18 TIME: 12:13 Assessment/Plan VTE Prophylaxis Risk score (from Ns)>0 risk: 2 SCD applied (from [facility] [place] No SCD contraindicated: other Pharmacological prophylaxis: other Pharm contraindication: other Lines/Catheters IV Catheter Type (from [facility]): Peripheral IV Urinary Cath still in place: No Assessment/Plan Assessment/Plan -Possible line sepsis, - line is dcd by Dr Bello today -follow-up on blood cultures from the catheter -started on Meropenem/Zyvox - ID consult-Dr. Arora in infection disease consultation. -am labs - c/s aground port insertion side - Hyperkalemia - pr nephro - HD per nephro -Hemodialysis dependent end-stage renal disease. - HD per Dr Silverio in nephrology consultation. -History of hyperparathyroidism, status post subtotal parathyroidectomy of the right superior and inferior glands, partial left inferior gland in June 2016. - Status post left upper and lower parathyroidectomy and partial left thyroid lobectomy in [place] [address] Morales, ENT. -Right chest hemodialysis catheter present on admission. -Left upper extremity AV fistula nonfunctioning - Dr. Nolan boone in vascular surgery consultation. Further recommendations based on clinical course. Plan of care discussed with Dr. Turner. Result Diagram: 07/13/18 04207/13/18 042 Subjective 24 Hr Interval Summary Free Text/Dictation right chest hd cath dcd by vasculr today Plan for new HD cath placement today. Constitutional: improved Eyes: no complaints Respiratory: no complaints Cardiovascular: no complaints Gastrointestinal: no complaints Genitourinary: no complaints Musculoskeletal: no complaints Skin: no complaints Neurologic: no complaints Endocrine: no complaints Psychological: nl mood/affect Exam/Review of Systems Exam Vitals Vital Signs Date Temp Pulse Resp B/P (MAP) Pulse Ox O2 O2 Flow FiO2 Time Delivery Rate 07/14/18 97.8 78 18 104/63 93 Room Air 08:29 (77) Intake and Output 07/13/18 07/13/18 07/14/18 1515:00 23:00 07:00 IntakeIntake Total 650 ml 400 ml 300 ml BalanceBalance 650 ml 400 ml 300 ml Constitutional: alert, oriented, well developed Psych: nl mood/affect Head: normocephalic Eyes: EOMI ENMT: nl external ears & nose Neck: non-tender Respiratory: clear to auscultation Cardiovascular: nl pulses Gastrointestinal: soft Musculoskeletal: nl extremities to inspection Extremities: normal pulses 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: nl mental status, nl speech Skin: nl turgor Lymph: nontender Medications Medication Current Medications Acetaminophen (Tylenol Tab) 650 mg Q4H PRN PO MILD PAIN(1-3)OR ELEVATED TEMP Last administered on 07/14/18 02:53; Admin Dose 650 MG; Start 07/13/18 at 09:00 Meropenem/Sodium Chloride 50 ml @ 100 mls/hr Q24H IVPB Last administered on 07/13/18 11:10; Admin Dose 100 MLS/HR; Start 07/13/18 at 10:00 Ondansetron HCl (Zofran Inj) 4 mg Q6H PRN IV NAUSEA AND/OR VOMITING Last administered on 07/14/18 00:17; Admin Dose 4 MG; Start 07/13/18 at 09:00 Acetaminophen/ Hydrocodone Bitart ([place] (5/325)) 1 tab Q4H PRN PO MODERATE PAIN LEVEL 4-6 Last administered on 07/13/18 16:21; Admin Dose 1 TAB; Start 07/13/18 at 09:00 Sevelamer Carbonate (Renvela) 2,400 mg WITH MEALS PO Last administered on 07/13/18 12:43; Admin Dose 2,400 MG; Start 07/13/18 at 11:40 Multivit/Ca Carb/ B Cmplx/FA/Prenat (Aminah-Tanisha) 1 tab DAILY PO Last administered on 07/13/18 17:21; Admin Dose 1 TAB; Start 07/13/18 at 09:00 Lidocaine (Lidoderm) 1 patch DAILY TD Last administered on 07/14/18 08:50; Ad min Dose 1 PATCH; Start 07/13/18 at 21:30 Linezolid 300 ml @ 300 mls/hr Q12 IVPB Last administered on 07/14/18 09:52; Admin Dose 300 MLS/HR; Start 07/13/18 at 22:00 Bromocriptine Mesylate (Parlodel) 2.5 mg QHS PO ; Start 07/14/18 at 21:00 Midodrine (Proamatine) 5 mg TID@09,13,17 PO ; Start 07/14/18 at 09:00 Naproxen (Naprosyn) 500 mg BID PRN PO PAIN AND/OR INFLAMMATION; Start 07/13/18 at 23:30 Pantoprazole (Protonix Tab) 40 mg DAILY@06 PO Last administered on 07/14/18at 06:54; Admin Dose 40 MG; Start 07/14/18 at 06:00 Zolpidem Tartrate (Ambien) 10 mg QHS PRN PO INSOMNIA; Start 07/13/18 at 23:30 Morphine Sulfate (morphine) 4 mg Q3H PRN IV SEVERE PAIN LEVEL 7-10 Last administered on 07/14/18at 11:05; Admin Dose 4 MG; Start 07/14/18 at 01:00 Diphenhydramine HCl (Benadryl) 50 mg Q6H PRN IV itchiness Last administered on 07/14/18at 09:19; Admin Dose 50 MG; Start 07/14/18 at 03:00 EDILMA CASIANO Jul 14, 2018 12:21
--- NOTE | 2018-07-14 12:50 | RADRPT ---
PROCEDURE: Placement of right common femoral vein temporary dialysis catheter. CLINICAL INDICATION: Renal failure. TECHNIQUE: Informed consent was obtained. The risks including bleeding and infection were explained to the deejay ent. The patient understood and was willing to proceed. A procedural pause was performed. The deejay ent's name, date of , and procedure to be performed were verified. Limited sonography of the [facility] inguinal region was performed. Noted is a patent right common femoral vein. The central line was inserted with all elements of maximal sterile barrier technique. All of the following were used: hea d covering, facial mask, sterile gown, sterile gloves, a large sterile sheet, hand hygiene, and 2% c hlorhexidine for cutaneous antisepsis. The right inguinal region was prepped and draped in the usual sterile fashion. Using local anesthesia, sterile technique, and ultrasound guidance, a 20-gauge needle was advanced in to the right common femoral vein. The 0.018 inch floppy tip guidewire was advanced through the needl e into the inferior vena cava with fluoroscopic guidance. A 5-Polish sheath was advanced over the gu idewire. The guidewire was removed and a 0.035 inch Amplatz wire was advanced into the inferior vena cava. Serial dilatation was performed to 12 Polish. The temporary dialysis catheter was then advan madisyn over the guidewire such that the tip was placed in the lower portion of the inferior vena cava. A 25 cm long, 12 Polish Mahurkar triple-lumen temporary dialysis catheter was used. Tip position was confirmed in the inferior vena cava with fluoroscopy. The 3 ports were flushed with heparin. The c atheter was secured to the skin with 3-0 silk. The site was dressed. The patient tolerated the proc edure well. COMPARISON: None. FINDINGS: Ultrasound images were recorded and stored in the patient's medical record. Final radiographic images demonstrate the tip of the catheter in the upper inferior vena cava at the mid L1 level. A total of 0.1 minutes of fluoroscopy time was used. The ultrasound images demonstrat e the needle entering the femoral vein. 5 images of the abdomen were obtained with image intensifier . IMPRESSION: 1. Satisfactory placement of right common femoral vein temporary dialysis catheter with fluoroscopic and ultrasound guidance. RPTAT: QQ .Omid Mota MD, MD Date Time Electronically viewed and signed by .Omid Mota MD, on 07/14/2018 12:49 .R/
--- NOTE | 2018-07-14 13:21 | CONS ---
Assessment/Plan Assessment/Plan Hospital Course (Demo Recall) - hypotension after HD - s/p recurrent, possible infection of HD catheter site on R chest wall, sp removal and placement of a new Barber catheter. The culture of the tip of the removed catheter, blood cultures and swab of the catheter site were negative. Pt completed an empiric course of renally dosed pip/tazo (06/13/2018-06/18/2018) - s/p placement of a new permacath on R chest wall on 06/23/2018 - s/p biliary cholic, N&E, intermittent: according to Pt, she had received authorization for elective cholecystectomy as outpatient - s/p MRCP in 07/2017: negative for cholelithiasis or cholecystitis - s/p chills during the dialysis, subjective fever and anorexia prior to admission are concerning for bloodstream infections - h/o placement and removal of HD catheters, according to Pt, she has had 9 episodes of HD catheter site/catheter infection - h/o creation of AVF in 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 Last used for HD in 04/2018 - s/p thrombocytopenia likely d/t linezolid. 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 Her last cycle was about 3 weeks ago - allergy to vancomycin (pruritus) - thombocytopenia with linezolid recommendations: - Daptomycin - CK - Echo - repeat bcxs in am - she is s/p removal of olivia cath with new femoral line placed; however given the notation of venous stenosis and thrombosed av fistula a longer abx course should be contemplated. We will further elucidate these issues with our vascular colleagues. Consultation Date/Type/Reason Admit Date/Time Jul 13, 2018 at 05:59 Date of Consultation: Jul 14, 2018 Type of Consult ID Reason for Consultation [id number] RECS Requesting Provider: LUANNE WALTER MD Date/Time of Note DATE: 07/14/18 TIME: 13:07 Hx of Present Illness This is a 32 yo female with ESRD on HD for 9 years, h/o recurrent HD catheter infection requiring removal and placement of a new HD catheter, approx 6 times according to Pt. She was recently admitted here at [facility] in may 2018. She comple moris a course of zosyn. She recently noted drainage from cath site. She was admitted for recurrent line sepsis. Her line came out, fortunately while vascular was present, she underwent compression and cxs taken. She has grown out S.aureus from wound site and bcxs. She is currently on linezolid. She has developed thrombocytopenia on linezolid previously and pruritis with vanco. She has had new femoral line placed this am. Constitutional: chills, febrile Eyes: no complaints ENT: no complaints Respiratory: no complaints Cardiovascular: no complaints Gastrointestinal: no complaints Genitourinary: no complaints Musculoskeletal: no complaints Skin: no complaints Neurologic: no complaints Endocrine: no complaints Lymphatic: no complaints Psychological: no complaints, nl mood/affect Immunologic: no complaints Past Medical History Home Meds Active Scripts Pantoprazole* (Pantoprazole*) 40 Mg Tablet.dr, 40 MG PO DAILY@06 for 30 Days Prov:EDILMA CASIANO 06/25/18 Bromocriptine Mesylate* (Parlodel*) 2.5 Mg Tablet, 2.5 MG PO QHS for 30 Days, TAB Prov:EDILMA CASIANO 06/25/18 Midodrine* (Midodrine*) 5 Mg Tablet, 5 MG PO TID@09,13,17 for 30 Days, TAB Prov:EDILMA CASIANO 06/25/18 Naproxen* (Naprosyn*) 500 Mg Tablet, 500 MG PO BID PRN for PAIN AND/OR INFLAMMATION, #30 TAB Prov:LIANA DAWSON MD 05/14/18 Reported Medications Sevelamer Hcl* (Renagel*) 800 Mg Tablet, 800 MG PO WITH MEALS, TAB 05/14/18 Zolpidem Tartrate* (Zolpidem Tartrate*) 10 Mg Tablet, 10 MG PO QHS PRN for INSOMNIA, #30 TAB 07/06/17 Medications Current Medications Acetaminophen (Tylenol Tab) 650 mg Q4H PRN PO MILD PAIN(1-3)OR ELEVATED TEMP Last administered on 07/14/18 02:53; Admin Dose 650 MG; Start 07/13/18 at 09:00 Meropenem/Sodium Chloride 50 ml @ 100 mls/hr Q24H IVPB Last administered on 07/13/18 11:10; Admin Dose 100 MLS/HR; Start 07/13/18 at 10:00 Ondansetron HCl (Zofran Inj) 4 mg Q6H PRN IV NAUSEA AND/OR VOMITING Last administered on 07/14/18 00:17; Admin Dose 4 MG; Start 07/13/18 at 09:00 Acetaminophen/ Hydrocodone Bitart ([place] (5/325)) 1 tab Q4H PRN PO MODERATE PAIN LEVEL 4-6 Last administered on 07/13/18 16:21; Admin Dose 1 TAB; Start 07/13/18 at 09:00 Sevelamer Carbonate (Renvela) 2,400 mg WITH MEALS PO Last administered on 07/14/18 12:56; Admin Dose 2,400 MG; Start 07/13/18 at 11:40 Multivit/Ca Carb/ B Cmplx/FA/Prenat (Aminah-Tanisha) 1 tab DAILY PO Last administered on 07/13/18 17:21; Admin Dose 1 TAB; Start 07/13/18 at 09:00 Lidocaine (Lidoderm) 1 patch DAILY TD Last administered on 07/14/18 08:50; Admin Dose 1 PATCH; Start 07/13/18 at 21:30 Linezolid 300 ml @ 300 mls/hr Q12 IVPB Last administered on 07/14/18 09:52; Admin Dose 300 MLS/HR; Start 07/13/18 at 22:00 Bromocriptine Mesylate (Parlodel) 2.5 mg QHS PO ; Start 07/14/18 at 21:00 Midodrine (Proamatine) 5 mg TID@09,13,17 PO Last administered on 07/14/18 12:55; Admin Dose 5 MG; Start 07/14/18 at 09:00 Naproxen (Naprosyn) 500 mg BID PRN PO PAIN AND/OR INFLAMMATION; Start 07/13/18 at 23:30 Pantoprazole (Protonix Tab) 40 mg DAILY@06 PO Last administered on 07/14/18at 06:54; Admin Dose 40 MG; Start 07/14/18 at 06:00 Zolpidem Tartrate (Ambien) 10 mg QHS PRN PO INSOMNIA; Start 07/13/18 at 23:30 Morphine Sulfate (morphine) 4 mg Q3H PRN IV SEVERE PAIN LEVEL 7-10 Last administered on 07/14/18at 11:05; Admin Dose 4 MG; Start 07/14/18 at 01:00 Diphenhydramine HCl (Benadryl) 50 mg Q6H PRN IV itchiness Last administered on 07/14/18at 09:19; Admin Dose 50 MG; Start 07/14/18 at 03:00 Allergies: Coded Allergies: vancomycin (Unverified Allergy, Severe, 07/13/18) pruritus pineapple (Unverified Allergy, Mild, 07/13/18) watermelon (Unverified Allergy, Unknown, 07/13/18) peach (Unverified Adverse Reaction, Unknown, HEADACHE, 07/13/18) Past Surgical History Past Surgical Hx: other Social History Smoking Status: Never smoker Exam/Review of Systems Exam Vitals Vital Signs Date Temp Pulse Resp B/P (MAP) Pulse Ox O2 O2 Flow FiO2 Time Delivery Rate 07/14/18 98.3 96 18 101/56 12:56 (71) 07/14/18 93 Room Air 08:29 Intake and Output 07/13/18 07/13/18 07/14/18 1515:00 23:00 07:00 IntakeIntake Total 650 ml 400 ml 300 ml BalanceBalance 650 ml 400 ml 300 ml Constitutional: alert, oriented, well developed Psych: no complaints, nl mood/affect Head: normocephalic, atraumatic Eyes: nl conjunctiva, EOMI, nl lids, nl sclera, PERRL ENMT: nl external ears & nose, nl lips & teeth, nl nasal mucosa & septum Neck: supple, non-tender Respiratory: clear to auscultation, normal air movement Cardiovascular: regular rate and rhythm, nl pulses Gastrointestinal: soft, nl liver, spleen, non-tender Musculoskeletal: nl extremities to inspection, nl gait and stance Extremities: other (right femoral line; tatto above it) 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: [employer] II-XII intact, nl mental status, nl speech, nl strength Results Result Diagram: 07/13/1842007/13/18420 Medications Medication Current Medications Acetaminophen (Tylenol Tab) 650 mg Q4H PRN PO MILD PAIN(1-3)OR ELEVATED TEMP Last administered on 07/14/18 02:53; Admin Dose 650 MG; Start 07/13/18 at 09:00 Meropenem/Sodium Chloride 50 ml @ 100 mls/hr Q24H IVPB Last administered on 07/13/18 11:10; Admin Dose 100 MLS/HR; Start 07/13/18 at 10:00 Ondansetron HCl (Zofran Inj) 4 mg Q6H PRN IV NAUSEA AND/OR VOMITING Last administered on 07/14/18 00:17; Admin Dose 4 MG; Start 07/13/18 at 09:00 Acetaminophen/ Hydrocodone Bitart ([place] (5/325)) 1 tab Q4H PRN PO MODERATE PAIN LEVEL 4-6 Last administered on 07/13/18 16:21; Admin Dose 1 TAB; Start 07/13/18 at 09:00 Sevelamer Carbonate (Renvela) 2,400 mg WITH MEALS PO Last administered on 07/14/18 12:56; Admin Dose 2,400 MG; Start 07/13/18 at 11:40 Multivit/Ca Carb/ B Cmplx/FA/Prenat (Aminah-Tanisha) 1 tab DAILY PO Last administered on 07/13/18 17:21; Admin Dose 1 TAB; Start 07/13/18 at 09:00 Lidocaine (Lidoderm) 1 patch DAILY TD Last administered on 07/14/18 08:50; Admin Dose 1 PATCH; Start 07/13/18 at 21:30 Linezolid 300 ml @ 300 mls/hr Q12 IVPB Last administered on 07/14/18 09:52; Admin Dose 300 MLS/HR; Start 07/13/18 at 22:00 Bromocriptine Mesylate (Parlodel) 2.5 mg QHS PO ; Start 07/14/18 at 21:00 Midodrine (Proamatine) 5 mg TID@,13,17 PO Last administered on 07/14/18at 12:55; Admin Dose 5 MG; Start 07/14/18 at 09:00 Naproxen (Naprosyn) 500 mg BID PRN PO PAIN AND/OR INFLAMMATION; Start 07/13/18 at 23:30 Pantoprazole (Protonix Tab) 40 mg DAILY@06 PO Last administered on 07/14/18at 06:54; Admin Dose 40 MG; Start 07/14/18 at 06:00 Zolpidem Tartrate (Ambien) 10 mg QHS PRN PO INSOMNIA; Start 07/13/18 at 23:30 Morphine Sulfate (morphine) 4 mg Q3H PRN IV SEVERE PAIN LEVEL 7-10 Last administered on 07/14/18at 11:05; Admin Dose 4 MG; Start 07/14/18 at 01:00 Diphenhydramine HCl (Benadryl) 50 mg Q6H PRN IV itchiness Last administered on 07/14/18at 09:19; Admin Dose 50 MG; Start 07/14/18 at 03:00 MUMTAZ LOPEZ MD Jul 14, 2018 13:18
[2018-07-14] MEDS ORDERED: valACYclovir 500 MG TAB PO ONE (13:30)
[2018-07-14] MEDS ORDERED: DAPTOMYCIN 325 MG in SOD CHLORIDE 0.9% 100 ML IVPB SCH (14:30)
[2018-07-14] MEDS: HEPARIN 1000 UNITS/ML 10 ML INJ CATHETER SCH (19:26)
[2018-07-14] MEDS: BROMOCRIPTINE 2.5 MG TAB PO SCH (21:35)
--- NOTE | 2018-07-14 22:06 | CONS ---
Assessment/Plan Assessment/Plan Problems: (1) End stage kidney disease Status: Chronic Comment: HD in AM (2) Sepsis associated with internal vascular access Comment: Pt is on antibiotic regimen (3) Anemia Status: Chronic Comment: Epo dose has been increased (4) Acute leukemia Comment: details & course of disease nor therapy known to me Assessment/Plan (Daily) I tried to reassure pt Consultation Date/Type/Reason Admit Date/Time Jul 13, 2018 at 05:59 Initial Consult Date 07/14/18 Type of Consult Renal Reason for Consultation ESRD, HD Requesting Provider: LUANNE WALTER MD Date/Time of Note DATE: 07/14/18 TIME: 22:00 24 HR Interval Summary Free Text/Dictation Pt says she feels much better. Exam/Review of Systems Exam Vitals Vital Signs Date Temp Pulse Resp B/P (MAP) Pulse Ox O2 O2 Flow FiO2 Time Delivery Rate 07/14/18 98.3 90 20 98/61 (73) 98 Room Air 21:03 Intake and Output 07/13/18 07/13/18 07/14/18 1515:00 23:00 07:00 IntakeIntake Total 650 ml 400 ml 300 ml BalanceBalance 650 ml 400 ml 300 ml Exam Pt is feeling better & denies complaints Constitutional: alert, oriented Head: normocephalic Eyes: nl conjunctiva ENMT: nl external ears & nose Neck: supple Respiratory: clear to auscultation Cardiovascular: regular rate and rhythm Gastrointestinal: soft Extremities: normal pulses, other (Lt arm AVF is clotted, rt groin Perez Cath in place.) 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: [employer] II-XII intact Skin: nl turgor (pale), other (pale) Additional Comments Platelets & Hbg have dropped, epo dose has been increased K remains on high side. Results Result Diagram: 07/14/18 1411 07/14/18 1411 Results 24hrs Laboratory Tests Test 07/14/18 14:11 White Blood Count 5.6 # Red Blood Count 2.47 L Hemoglobin 8.2 L Hematocrit 25.7 L Mean Corpuscular Volume 104.0 H Mean Corpuscular Hemoglobin 33.2 H Mean Corpuscular Hemoglobin Concent 31.9 L Red Cell Distribution Width 14.3 Platelet Count 91 #L Mean Platelet Volume 11.4 H Immature Granulocytes % 0.400 Neutrophils % 85.0 H Lymphocytes % 7.7 L Monocytes % 5.6 Eosinophils % 0.9 Basophils % 0.4 Nucleated Red Blood Cells % 0.0 Immature Granulocytes # 0.020 Neutrophils # 4.7 Lymphocytes # 0.4 L Monocytes # 0.3 Eosinophils # 0.1 Basophils # 0.0 Nucleated Red Blood Cells # 0.0 Sodium Level 136 Potassium Level 5.8 H Chloride Level 96 L Carbon Dioxide Level 19 L Anion Gap 21 H Blood Urea Nitrogen 75 H Creatinine 12.45 #H Est Glomerular Filtrat Rate mL/min 3 L Glucose Level 93 Calcium Level 9.5 Hepatitis B Surface Antigen NEGATIVE Medications Medication Current Medications Acetaminophen (Tylenol Tab) 650 mg Q4H PRN PO MILD PAIN(1-3)OR ELEVATED TEMP Last administered on 07/14/18at 02:53; Admin Dose 650 MG; Start 07/13/18 at 09:00 Ondansetron HCl (Zofran Inj) 4 mg Q6H PRN IV NAUSEA AND/OR VOMITING Last administered on 07/14/18at 00:17; Admin Dose 4 MG; Start 07/13/18 at 09:00 Acetaminophen/ Hydrocodone Bitart ([place] (5/325)) 1 tab Q4H PRN PO MODERATE PAIN LEVEL 4-6 Last administered on 07/13/18 16:21; Admin Dose 1 TAB; Start 07/13/18 at 09:00 Sevelamer Carbonate (Renvela) 2,400 mg WITH MEALS PO Last administered on 07/14/18at 20:46; Admin Dose 2,400 MG; Start 07/13/18 at 11:40 Multivit/Ca Carb/ B Cmplx/FA/Prenat (Aminah-Tanisha) 1 tab DAILY PO Last administered on 07/13/18 17:21; Admin Dose 1 TAB; Start 07/13/18 at 09:00 Lidocaine (Lidoderm) 1 patch DAILY TD Last administered on 07/14/18at 08:50; Admin Dose 1 PATCH; Start 07/13/18 at 21:30 Bromocriptine Mesylate (Parlodel) 2.5 mg QHS PO Last administered on 07/14/18at 21:35; Admin Dose 2.5 MG; Start 07/14/18 at 21:00 Midodrine (Proamatine) 5 mg TID@,17 PO Last administered on 07/14/18 20:10; Admin Dose 5 MG; Start 07/14/18 at 09:00 Naproxen (Naprosyn) 500 mg BID PRN PO PAIN AND/OR INFLAMMATION; Start 07/13/18 at 23:30 Pantoprazole (Protonix Tab) 40 mg DAILY@06 PO Last administered on 07/14/18at 06:54; Admin Dose 40 MG; Start 07/14/18 at 06:00 Zolpidem Tartrate (Ambien) 10 mg QHS PRN PO INSOMNIA; Start 07/13/18 at 23:30 Morphine Sulfate (morphine) 4 mg Q3H PRN IV SEVERE PAIN LEVEL 7-10 Last administered on 07/14/18at 20:11; Admin Dose 4 MG; Start 07/14/18 at 01:00 Diphenhydramine HCl (Benadryl) 50 mg Q6H PRN IV itchiness Last administered on 07/14/18at 21:35; Admin Dose 50 MG; Start 07/14/18 at 03:00 Daptomycin 325 mg/ Sodium Chloride 100 ml @ 200 mls/hr Q48H IVPB Last administered on 07/14/18at 20:08; Admin Dose 200 MLS/HR; Start 07/14/18 at 14:30 Heparin Sodium (Porcine) (Heparin (1000 Units/ml)) 3,000 unit AFTER DIALYSIS CATHETER Last administered on 07/14/18at 19:26; Admin Dose 3,000 UNIT; Start 07/14/18 at 16:30 CAMERON ISIDRO MD Jul 14, 2018 22:06
[2018-07-15] VITALS (18 sets, daily range): BP systolic 84–113; BP diastolic 42–61; PULSE 80–107; RESP 16–20
[2018-07-15] MEDS: morphine 4 MG/ML VIAL IV PRN ×4 (01:44→22:24)
[2018-07-15] MEDS: DIPHENHYDRAMINE 50 MG INJ IV PRN ×4 (03:50→22:24)
[2018-07-15] MEDS: PANTOPRAZOLE (EC) 40 MG TAB PO SCH (06:42)
[2018-07-15] MEDS: LIDOCAINE 5% PATCH TD SCH (08:29)
[2018-07-15] MEDS: CALCITRIOL 0.25 MCG CAP PO SCH (08:30)
[2018-07-15] MEDS: MIDODRINE 5 MG TAB PO SCH ×3 (08:30→18:03)
[2018-07-15] MEDS: MULTIVIT/CA CARB/B CMPLX/FA TAB PO SCH (08:30)
[2018-07-15] MEDS: SEVELAMER CARBONATE 800 MG TABLET PO SCH ×3 (08:30→18:03)
--- NOTE | 2018-07-15 11:31 | PN ---
Date/Time of Note Date/Time of Note DATE: 07/15/18 TIME: 11:30 Assessment/Plan VTE [place]phylaxis [place] [facility] [place] risk: 2 SCD applied [place] [facility] [place] SCD contraindicated: other Pharmacological prophylaxis: other Pharm contraindication: other Lines/Catheters IV Catheter Type (from [facility] Central line still needed: Yes Urinary Cath still in place: No Assessment/Plan Assessment/Plan -Possible line sepsis, - line is dcd by Dr Bello today -follow-up on blood cultures from the catheter - ID consult-Dr. Arora in infection disease consultation. -am labs - c/s aground port insertion side - Hyperkalemia - pr nephro - HD per nephro -Hemodialysis dependent end-stage renal disease. - HD per Dr Silverio in nephrology consultation. -History of hyperparathyroidism, status post subtotal parathyroidectomy of the right superior and inferior glands, partial left inferior gland in June 2016. - Status post left upper and lower parathyroidectomy and partial left thyroid lobectomy in [place] [address] Morales, ENT. -Right chest hemodialysis catheter present on admission. -Left upper extremity AV fistula nonfunctioning - Dr. Nolan boone in vascular surgery consultation. Further recommendations based on clinical course. Plan of care discussed with Dr. Turner. Result Diagram: 07/15/185 07/15/18 0445 Results 24hrs Laboratory Tests Test 07/14/18 14:11 07/15/18 04:45 White Blood Count 5.6 # 4.4 #L Red Blood Count 2.47 L 2.56 L Hemoglobin 8.2 L 8.5 L Hematocrit 25.7 L 26.7 L Mean Corpuscular Volume 104.0 H 104.3 H Mean Corpuscular Hemoglobin 33.2 H 33.2 H Mean Corpuscular Hemoglobin Concent 31.9 L 31.8 L Red Cell Distribution Width 14.3 14.4 Platelet Count 91 #L 104 L Mean Platelet Volume 11.4 H 11.7 H Immature Granulocytes % 0.400 0.500 H Neutrophils % 85.0 H 70.1 Lymphocytes % 7.7 L 14.8 L Monocytes % 5.6 11.4 H Eosinophils % 0.9 2.7 Basophils % 0.4 0.5 Nucleated Red Blood Cells % 0.0 0.0 Immature Granulocytes # 0.020 0.020 Neutrophils # 4.7 3.1 Lymphocytes # 0.4 L 0.7 L Monocytes # 0.3 0.5 Eosinophils # 0.1 0.1 Basophils # 0.0 0.0 Nucleated Red Blood Cells # 0.0 0.0 Sodium Level 136 139 Potassium Level 5.8 H 5.5 H Chloride Level 96 L 97 Carbon Dioxide Level 19 L 28 Anion Gap 21 H 14 #H Blood Urea Nitrogen 75 H 33 #H Creatinine 12.45 #H 7.07 #H Est Glomerular Filtrat Rate mL/min 3 L 7 L Glucose Level 93 68 #L Calcium Level 9.5 9.1 Phosphorus Level 5.7 H Hepatitis B Surface Antigen NEGATIVE Creatine Kinase 30 Subjective 24 Hr Interval Summary Free Text/Dictation SP Right femoral HD cath yesterday Exam/Review of Systems Exam Vitals Vital Signs Date Temp Pulse Resp B/P (MAP) Pulse Ox O2 O2 Flow FiO2 Time Delivery Rate 07/15/18 98.1 84 18 87/52 (64) 96 Room Air 07:40 Intake and Output 07/14/18 07/14/18 07/15/18 1515:00 23:00 07:00 IntakeIntake Total 540 ml 220 ml 380 ml OutputOutput Total 2500 ml BalanceBalance 540 ml -2280 ml 380 ml Constitutional: alert, well developed Psych: nl mood/affect Head: normocephalic Eyes: EOMI Respiratory: diminished breath sounds Cardiovascular: nl pulses, other (s1s2) Gastrointestinal: soft, non-tender Musculoskeletal: nl extremities to inspection Extremities: normal pulses 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: nl mental status, nl speech Lymph: nontender Results Results 24hrs Laboratory Tests Test 07/14/18 14:11 07/15/18 04:45 White Blood Count 5.6 # 4.4 #L Red Blood Count 2.47 L 2.56 L Hemoglobin 8.2 L 8.5 L Hematocrit 25.7 L 26.7 L Mean Corpuscular Volume 104.0 H 104.3 H Mean Corpuscular Hemoglobin 33.2 H 33.2 H Mean Corpuscular Hemoglobin Concent 31.9 L 31.8 L Red Cell Distribution Width 14.3 14.4 Platelet Count 91 #L 104 L Mean Platelet Volume 11.4 H 11.7 H Immature Granulocytes % 0.400 0.500 H Neutrophils % 85.0 H 70.1 Lymphocytes % 7.7 L 14.8 L Monocytes % 5.6 11.4 H Eosinophils % 0.9 2.7 Basophils % 0.4 0.5 Nucleated Red Blood Cells % 0.0 0.0 Immature Granulocytes # 0.020 0.020 Neutrophils # 4.7 3.1 Lymphocytes # 0.4 L 0.7 L Monocytes # 0.3 0.5 Eosinophils # 0.1 0.1 Basophils # 0.0 0.0 Nucleated Red Blood Cells # 0.0 0.0 Sodium Level 136 139 Potassium Level 5.8 H 5.5 H Chloride Level 96 L 97 Carbon Dioxide Level 19 L 28 Anion Gap 21 H 14 #H Blood Urea Nitrogen 75 H 33 #H Creatinine 12.45 #H 7.07 #H Est Glomerular Filtrat Rate mL/min 3 L 7 L Glucose Level 93 68 #L Calcium Level 9.5 9.1 Phosphorus Level 5.7 H Hepatitis B Surface Antigen NEGATIVE Creatine Kinase 30 Medications Medication Current Medications Acetaminophen (Tylenol Tab) 650 mg Q4H PRN PO MILD PAIN(1-3)OR ELEVATED TEMP Last administered on 07/14/18 02:53; Admin Dose 650 MG; Start 07/13/18 at 09:00 Ondansetron HCl (Zofran Inj) 4 mg Q6H PRN IV NAUSEA AND/OR VOMITING Last administered on 07/14/18 00:17; Admin Dose 4 MG; Start 07/13/18 at 09:00 Acetaminophen/ Hydrocodone Bitart ([place] (5/325)) 1 tab Q4H PRN PO MODERATE PAIN LEVEL 4-6 Last administered on 07/13/18 16:21; Admin Dose 1 TAB; Start 07/13/18 at 09:00 Sevelamer Carbonate (Renvela) 2,400 mg WITH MEALS PO Last administered on 07/15/18 08:30; Admin Dose 2,400 MG; Start 07/13/18 at 11:40 Multivit/Ca Carb/ B Cmplx/FA/Prenat (Aminah-Tanisha) 1 tab DAILY PO Last administered on 07/15/18 08:30; Admin Dose 1 TAB; Start 07/13/18 at 09:00 Lidocaine (Lidoderm) 1 patch DAILY TD Last administered on 07/15/18 08:29; Admin Dose 1 PATCH; Start 07/13/18 at 21:30 Bromocriptine Mesylate (Parlodel) 2.5 mg QHS PO Last administered on 07/14/18 21:35; Admin Dose 2.5 MG; Start 07/14/18 at 21:00 Midodrine (Proamatine) 5 mg TID@09,13,17 PO Last administered on 07/15/18 08:30; Admin Dose 5 MG; Start 07/14/18 at 09:00 Naproxen (Naprosyn) 500 mg BID PRN PO PAIN AND/OR INFLAMMATION; Start 07/13/18 at 23:30 Pantoprazole (Protonix Tab) 40 mg DAILY@06 PO Last administered on 07/15/18 06:42; Admin Dose 40 MG; Start 07/14/18 at 06:00 Zolpidem Tartrate (Ambien) 10 mg QHS PRN PO INSOMNIA; Start 07/13/18 at 23:30 Morphine Sulfate (morphine) 4 mg Q3H PRN IV SEVERE PAIN LEVEL 7-10 Last administered on 07/15/18 09:40; Admin Dose 4 MG; Start 07/14/18 at 01:00 Diphenhydramine HCl (Benadryl) 50 mg Q6H PRN IV itchiness Last administered on 07/15/18 09:40; Admin Dose 50 MG; Start 07/14/18 at 03:00 Daptomycin 325 mg/ Sodium Chloride 100 ml @ 200 mls/hr Q48H IVPB Last administered on 07/14/18 20:08; Admin Dose 200 MLS/HR; Start 07/14/18 at 14:30 Heparin Sodium (Porcine) (Heparin (1000 Units/ml)) 3,000 unit AFTER DIALYSIS CATHETER Last administered on 07/14/18 19:26; Admin Dose 3,000 UNIT; Start 07/14/18 at 16:30 Calcitriol (Rocaltrol) 0.25 mcg DAILY PO Last administered on 07/15/18 08:30; Admin Dose 0.25 MCG; Start 07/15/18 at 09:00 EDILMA CASIANO Jul 15, 2018 11:31
--- NOTE | 2018-07-15 15:13 | CONS ---
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 The culture of the tip of the removed catheter, blood cultures and swab of the catheter site were negative. Pt completed an empiric course of renally dosed pip/tazo (06/13/2018-06/18/2018) - s/p placement of a new permacath on R chest wall on 06/23/2018 - s/p biliary cholic, N&E, intermittent: according to Pt, she had received authorization for elective cholecystectomy as outpatient - s/p MRCP in 07/2017: negative for cholelithiasis or cholecystitis - s/p chills during the dialysis, subjective fever and anorexia prior to admission are concerning for bloodstream infections - h/o placement and removal of HD catheters, according to Pt, she has had 9 episodes of HD catheter site/catheter infection - [place] [facility] [place], thrombosed L brachiocephalic AV fistula, 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 Her last cycle was about 3 weeks ago - s/p thrombocytopenia likely d/t linezolid. Linezolid was discontinued on 06/17/2018 (took linezolid (06/12/2018-06/17/2018) - allergy to vancomycin (pruritus) Recommendations: - Repeat blood cultures x2, this evening with HD (one peripheral draw and one from HD catheter) - DC Daptomycin (CK 30 on 07/15/2018) - Start renally dosed Cefazolin for MSSA infection - Complete 3 day course of renally dosed Valtrex for HSV lip lesion - Echo to r/o endocarditis - Pt is s/p removal of perez cath with new femoral line placed; however given the notation of venous stenosis and thrombosed av fistula a longer abx course should be contemplated. We will further elucidate these issues with our vascular colleague. Management d/w patient, RN Micheline, and with Dr. Herrera Consultation Date/Type/Reason Admit Date/Time Jul 13, 2018 at 05:59 Initial Consult Date 07/14/18 Type of Consult Infectious Disease Requesting Provider: LUANNE WALTER MD Date/Time of Note DATE: 07/15/18 TIME: 15:09 24 HR Interval Summary Free Text/Dictation Pt reports fever blister on lip is improving. C/o R femoral HD catheter discomfort. Denies f/c, SOB, n/v/d Exam/Review of Systems Exam Vitals Vital Signs Date Temp Pulse Resp B/P (MAP) Pulse Ox O2 O2 Flow FiO2 Time Delivery Rate 07/15/18 98.2 15:05 07/15/18 96 20 102/61 13:54 (75) 07/15/18 96 Room Air 07:40 Intake and Output 07/14/18 07/14/18 07/15/18 1515:00 23:00 07:00 IntakeIntake Total 540 ml 220 ml 380 ml OutputOutput Total 2500 ml BalanceBalance 540 ml -2280 ml 380 ml Constitutional: alert, oriented, well developed Psych: no complaints, nl mood/affect Head: normocephalic, atraumatic Eyes: nl conjunctiva, nl lids, nl sclera ENMT: nl external ears & nose, nl lips & teeth, nl nasal mucosa & septum, mucosa pink and moist, other (HSV lesion noted on R upper lip) Neck: supple, non-tender Respiratory: clear to auscultation, normal air movement Cardiovascular: regular rate and rhythm, nl pulses Gastrointestinal: soft, non-tender Genitourinary - Female: other (No Stephen; R femoral HD catheter c/d/i) Musculoskeletal: nl extremities to inspection Extremities: normal pulses, other (LUE AVF noted); No cyanosis, No clubbing, No edema 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: nl mental status, nl speech, nl strength Skin: nl turgor, other (R chest wall dressing c/d/i ) Results Result Diagram: 07/15/18 0445 07/15/18 0445 Results 24hrs Laboratory Tests Test 07/15/18 04:45 White Blood Count 4.4 #L Red Blood Count 2.56 L Hemoglobin 8.5 L Hematocrit 26.7 L Mean Corpuscular Volume 104.3 H Mean Corpuscular Hemoglobin 33.2 H Mean Corpuscular Hemoglobin Concent 31.8 L Red Cell Distribution Width 14.4 Platelet Count 104 L Mean Platelet Volume 11.7 H Immature Granulocytes % 0.500 H Neutrophils % 70.1 Lymphocytes % 14.8 L Monocytes % 11.4 H Eosinophils % 2.7 Basophils % 0.5 Nucleated Red Blood Cells % 0.0 Immature Granulocytes # 0.020 Neutrophils # 3.1 Lymphocytes # 0.7 L Monocytes # 0.5 Eosinophils # 0.1 Basophils # 0.0 Nucleated Red Blood Cells # 0.0 Sodium Level 139 Potassium Level 5.5 H Chloride Level 97 Carbon Dioxide Level 28 Anion Gap 14 #H Blood Urea Nitrogen 33 #H Creatinine 7.07 #H Est Glomerular Filtrat Rate mL/min 7 L Glucose Level 68 #L Calcium Level 9.1 Creatine Kinase 30 Imaging Imaging Arterial US 07/14/2018: Thrombosed left AV fistula. CXR 07/13/2018: No acute cardiopulmonary abnormality. LS MRI 07/13/2018: 1. Atrophic kidneys. 2. [place] appearance of the vertebral bodies on sagittal T1 and T2- weighted images, likely reflecting renal osteodystrophy. Osteodystrophy also likely explains the presence of multiple Schmorl's nodes in the 32-year-old female. 3. Mild L3-4 canal stenosis with asymmetric narrowing of the left lateral recess and mild encroachment on the traversing left L4 root. Does the patient have a left L4 radiculopathy on exam? 4. Mild L4-5 canal stenosis. 5. 3.3 x 1.7 cm benign-appearing expansile cystic lesion involving the posterior medial right iliac bone Medications Medication Current Medications Acetaminophen (Tylenol Tab) 650 mg Q4H PRN PO MILD PAIN(1-3)OR ELEVATED TEMP Last administered on 07/14/18 02:53; Admin Dose 650 MG; Start 07/13/18 at 09:00 Ondansetron HCl (Zofran Inj) 4 mg Q6H PRN IV NAUSEA AND/OR VOMITING Last administered on 07/14/18 00:17; Admin Dose 4 MG; Start 07/13/18 at 09:00 Acetaminophen/ Hydrocodone Bitart ([place] (5/325)) 1 tab Q4H PRN PO MODERATE PAIN LEVEL 4-6 Last administered on 07/13/18 16:21; Admin Dose 1 TAB; Start 07/13/18 at 09:00 Sevelamer Carbonate (Renvela) 2,400 mg WITH MEALS PO Last administered on 07/15 12:03; Admin Dose 2,400 MG; Start 07/13/18 at 11:40 Multivit/Ca Carb/ B Cmplx/FA/Prenat (Aminah-Tanisha) 1 tab DAILY PO Last administered on 07/15/18 08:30; Admin Dose 1 TAB; Start 07/13/18 at 09:00 Lidocaine (Lidoderm) 1 patch DAILY TD Last administered on 07/15/18 08:29; Admin Dose 1 PATCH; Start 07/13/18 at 21:30 Bromocriptine Mesylate (Parlodel) 2.5 mg QHS PO Last administered on 07/14/18 21:35; Admin Dose 2.5 MG; Start 07/14/18 at 21:00 Midodrine (Proamatine) 5 mg TID@,,17 PO Last administered on 07/15/18 13:51; Admin Dose 5 MG; Start 07/14/18 at 09:00 Naproxen (Naprosyn) 500 mg BID PRN PO PAIN AND/OR INFLAMMATION; Start 07/13/18 at 23:30 Pantoprazole (Protonix Tab) 40 mg DAILY@06 PO Last administered on 07/15/18 06:42; Admin Dose 40 MG; Start 07/14/18 at 06:00 Zolpidem Tartrate (Ambien) 10 mg QHS PRN PO INSOMNIA; Start 07/13/18 at 23:30 Morphine Sulfate (morphine) 4 mg Q3H PRN IV SEVERE PAIN LEVEL 7-10 Last administered on 07/15/18 13:51; Admin Dose 4 MG; Start 07/14/18 at 01:00 Diphenhydramine HCl (Benadryl) 50 mg Q6H PRN IV itchiness Last administered on 07/15/18at 09:40; Admin Dose 50 MG; Start 07/14/18 at 03:00 Daptomycin 325 mg/ Sodium Chloride 100 ml @ 200 mls/hr Q48H IVPB Last administered on 07/14/18at 20:08; Admin Dose 200 MLS/HR; Start 07/14/18 at 14:30 Heparin Sodium (Porcine) (Heparin (1000 Units/ml)) 3,000 unit AFTER DIALYSIS CATHETER Last administered on 07/14/18at 19:26; Admin Dose 3,000 UNIT; Start 07/14/18 at 16:30 Calcitriol (Rocaltrol) 0.25 mcg DAILY PO Last administered on 07/15/18at 08:30; Admin Dose 0.25 MCG; Start 07/15/18 at 09:00 EDIE BUENO NP Jul 15, 2018 15:13
--- NOTE | 2018-07-15 21:54 | CONS ---
Consultation Date/Type/Reason Admit Date/Time Jul 13, 2018 at 05:59 Initial Consult Date 07/14/18 Type of Consult Renal Requesting Provider: LUANNE WALTER MD Date/Time of Note DATE: 07/15/18 TIME: 21:53 Exam/Review of Systems Exam Vitals Vital Signs Date Temp Pulse Resp B/P (MAP) Pulse Ox O2 O2 Flow FiO2 Time Delivery Rate 07/15/18 96 21:40 07/15/18 16 95/50 (65) 98 Room Air 19:25 07/15/18 98.6 19:15 Intake and Output 07/14/18 07/14/18 07/15/18 1515:00 23:00 07:00 IntakeIntake Total 540 ml 220 ml 380 ml OutputOutput Total 2500 ml BalanceBalance 540 ml -2280 ml 380 ml Results Result Diagram: 07/15/18 0445 07/15/18 0445 Results 24hrs Laboratory Tests Test 07/15/18 04:45 White Blood Count 4.4 #L Red Blood Count 2.56 L Hemoglobin 8.5 L Hematocrit 26.7 L Mean Corpuscular Volume 104.3 H Mean Corpuscular Hemoglobin 33.2 H Mean Corpuscular Hemoglobin Concent 31.8 L Red Cell Distribution Width 14.4 Platelet Count 104 L Mean Platelet Volume 11.7 H Immature Granulocytes % 0.500 H Neutrophils % 70.1 Lymphocytes % 14.8 L Monocytes % 11.4 H Eosinophils % 2.7 Basophils % 0.5 Nucleated Red Blood Cells % 0.0 Immature Granulocytes # 0.020 Neutrophils # 3.1 Lymphocytes # 0.7 L Monocytes # 0.5 Eosinophils # 0.1 Basophils # 0.0 Nucleated Red Blood Cells # 0.0 Sodium Level 139 Potassium Level 5.5 H Chloride Level 97 Carbon Dioxide Level 28 Anion Gap 14 #H Blood Urea Nitrogen 33 #H Creatinine 7.07 #H Est Glomerular Filtrat Rate mL/min 7 L Glucose Level 68 #L Calcium Level 9.1 Creatine Kinase 30 Medications Medication Current Medications Acetaminophen (Tylenol Tab) 650 mg Q4H PRN PO MILD PAIN(1-3)OR ELEVATED TEMP [place] administered on 07/14/18at 02:53; Admin Dose 650 MG; Start 07/13/18 at 09:00 Ondansetron HCl (Zofran Inj) 4 mg Q6H PRN IV NAUSEA AND/OR VOMITING Last administered on 07/14/18 00:17; Admin Dose 4 MG; Start 07/13/18 at 09:00 Acetaminophen/ Hydrocodone Bitart ([place] (5/325)) 1 tab Q4H PRN PO MODERATE PAIN LEVEL 4-6 Last administered on 07/13/18 16:21; Admin Dose 1 TAB; Start 07/13/18 at 09:00 Sevelamer Carbonate (Renvela) 2,400 mg WITH MEALS PO Last administered on 07/15/18 18:03; Admin Dose 2,400 MG; Start 07/13/18 at 11:40 Multivit/Ca Carb/ B Cmplx/FA/Prenat (Aminah-Tanisha) 1 tab DAILY PO Last administered on 07/15/18 08:30; Admin Dose 1 TAB; Start 07/13/18 at 09:00 Lidocaine (Lidoderm) 1 patch DAILY TD Last administered on 07/15/18 08:29; Admin Dose 1 PATCH; Start 07/13/18 at 21:30 Bromocriptine Mesylate (Parlodel) 2.5 mg QHS PO Last administered on 07/14/18 21:35; Admin Dose 2.5 MG; Start 07/14/18 at 21:00 Midodrine (Proamatine) 5 mg TID@,,17 PO Last administered on 07/15/18 18:03; Admin Dose 5 MG; Start 07/14/18 at 09:00 Naproxen (Naprosyn) 500 mg BID PRN PO PAIN AND/OR INFLAMMATION; Start 07/13/18 at 23:30 Pantoprazole (Protonix Tab) 40 mg DAILY@06 PO Last administered on 07/15/18 06:42; Admin Dose 40 MG; Start 07/14/18 at 06:00 Zolpidem Tartrate (Ambien) 10 mg QHS PRN PO INSOMNIA; Start 07/13/18 at 23:30 Morphine Sulfate (morphine) 4 mg Q3H PRN IV SEVERE PAIN LEVEL 7-10 Last administered on 07/15/18 13:51; Admin Dose 4 MG; Start 07/14/18 at 01:00 Diphenhydramine HCl (Benadryl) 50 mg Q6H PRN IV itchiness Last administered on 3/22/19at 15:46; Admin Dose 50 MG; Start 07/14/18 at 03:00 Heparin Sodium (Porcine) (Heparin (1000 Units/ml)) 3,000 unit AFTER DIALYSIS CATHETER Last administered on 07/14/18at 19:26; Admin Dose 3,000 UNIT; Start 07/14/18 at 16:30 Calcitriol (Rocaltrol) 0.25 mcg DAILY PO Last administered on 07/15/18at 08:30; Admin Dose 0.25 MCG; Start 07/15/18 at 09:00 Cefazolin Sodium 50 ml @ 100 mls/hr Q24H IVPB ; Start 07/15/18 at 21:00 Valacyclovir HCl (Valtrex) 1,000 mg QHS PO ; Start 07/15/18 at 21:00; Stop 07/17/18 at 20:59 Epoetin [place] (Epogen (Esrd)) 8,000 units TuThSa@17 SC ; Start 07/16/18 at 17:00 CAMERON ISIDRO MD Jul 15, 2018 21:54
[2018-07-15] MEDS: HEPARIN 1000 UNITS/ML 10 ML INJ CATHETER SCH (22:20)
[2018-07-15] MEDS: valACYclovir 500 MG TAB PO SCH (22:23)
[2018-07-15] MEDS: BROMOCRIPTINE 2.5 MG TAB PO SCH (22:23)
[2018-07-15] MEDS: CEFAZOLIN 1 GM/50 ML (PMX) 50 ML IVPB SCH (22:23)
[2018-07-15] MEDS: ONDANSETRON 4 MG INJ IV PRN (23:07)
[2018-07-16] VITALS (9 sets, daily range): BP systolic 62–91; BP diastolic 35–46; PULSE 68–89; RESP 17–19
[2018-07-16] MEDS: PANTOPRAZOLE (EC) 40 MG TAB PO SCH (05:09)
[2018-07-16] MEDS: DIPHENHYDRAMINE 50 MG INJ IV PRN ×4 (05:09→23:16)
[2018-07-16] MEDS: CALCITRIOL 0.25 MCG CAP PO SCH (08:16)
[2018-07-16] MEDS: MULTIVIT/CA CARB/B CMPLX/FA TAB PO SCH (08:16)
[2018-07-16] MEDS: SEVELAMER CARBONATE 800 MG TABLET PO SCH ×3 (08:17→17:22)
[2018-07-16] MEDS: LIDOCAINE 5% PATCH TD SCH (08:32)
[2018-07-16] MEDS: MIDODRINE 5 MG TAB PO SCH ×3 (08:32→17:21)
[2018-07-16] MEDS ORDERED: MIDODRINE 5 MG TAB PO ONE (09:30)
--- NOTE | 2018-07-16 11:11 | PN ---
Date/Time of Note Date/Time of Note DATE: 07/16/18 TIME: 11:00 Assessment/Plan Lines/Catheters IV Catheter Type (from [facility]): Saline Lock Stephen in Place (from [facility]): No Assessment/Plan Chief Complaint/Hosp Course -End-stage renal disease and central stenosis: It seems that the patient's right chest wall catheter may have had line sepsis. 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 She does have right chest central stenosis -S/P Right femoral Perez catheter placement with our IR colleagues -At this point as her cultures were positive when patient is cleared from ID standpoint recommend to convert her Perez to a perm catheter. This will be scheduled with our IR colleagues -From access creation standpoint we will await until the patient's resolution from this hospitalization as she has no adequate conduit and will require a graft placement. This can be scheduled as an elective case as outpt. Information to the patient has been provided for followup and for access creation. She understands all the plan and management and was able to repeat all the information back to me - Discussed findings, plan and management with the patient and primary service. She understands all that is involved and has agreed to proceed with having Perez catheter changed to perm catheter -Will follow our patient as needed. -Optimize vascular status (BP meds, diet, nutrition, exercise, sugar control). -We would recommend for the patient to follow up with our hematology colleagues for further evaluation of her leukemia. -Thank you for allowing us to partake in the care of this patient. Please call us with any questions. Subjective 24 Hr Interval Summary no new vascular events over night. tolerating dialysis well Exam/Review of Systems Vital Signs Vitals Vital Signs Date Temp Pulse Resp B/P (MAP) Pulse Ox O2 O2 Flow FiO2 Time Delivery Rate 07/16/18 98.5 88 18 72/35 (47) 97 09:02 07/15/18 Room Air 22:34 Intake and Output 07/15/18 07/15/18 07/16/18 1515:00 23:00 07:00 IntakeIntake Total 400 ml 50 ml OutputOutput Total 2500 ml BalanceBalance 400 ml -2450 ml Exam Free Text/Dictation GENERAL: Alert and oriented x3, in no apparent distress. PULMONARY: Clear to auscultation bilaterally. No crackles. Right chest wall catheter site dry and clean CARDIOVASCULAR: S1, S2 present. ABDOMEN: Soft, nontender, nondistended. Bowel sounds positive. RIGHT LOWER EXTREMITY: Right lower extremity palpable femoral pulse, faint pedal pulse. Motor, sensory intact. Capillary refill is 3 seconds. groin catheter intact LEFT LOWER EXTREMITY: Palpable femoral pulse, faint pedal pulse. Motor, sensory intact. Capillary refill is 3 seconds. Results Result Diagram: 07/15/18 0445 07/15/18 0445 MIMI CORONEL MD Jul 16, 2018 11:11
[2018-07-16] MEDS ORDERED: SOD CHLORIDE 0.9% 500 ML IV ONE (11:30)
--- NOTE | 2018-07-16 11:54 | PN ---
Date/Time of Note Date/Time of Note DATE: 07/16/18 TIME: 11:50 Assessment/Plan VTE Prophylaxis Risk score (from Ns)>0 risk: 2 SCD applied (from Nsg): Yes Pharmacological prophylaxis: other Lines/Catheters IV Catheter Type (from Nrsg): Saline Lock Urinary Cath still in place: No Assessment/Plan Assessment/Plan post permacath line sepsis anemia h/o parathyroidectomy hypotension acute on cheonic Result Diagram: 07/15/1844407/15/18444 Subjective 24 Hr Interval Summary Constitutional: other Eyes: no complaints ENT: no complaints Respiratory: no complaints Cardiovascular: no complaints Gastrointestinal: no complaints Genitourinary: no complaints Musculoskeletal: bone/joint pain Neurologic: no complaints Psychological: no complaints Exam/Review of Systems Exam Vitals Vital Signs Date Temp Pulse Resp B/P (MAP) Pulse Ox O2 O2 Flow FiO2 Time Delivery Rate 07/16/18 87 18 62/42 (49) 96 11:11 07/16/18 98.6 11:00 07/15/18 Room Air 22:34 Intake and Output 07/15/18 07/15/18 07/16/18 1515:00 23:00 07:00 IntakeIntake Total 400 ml 50 ml OutputOutput Total 2500 ml BalanceBalance 400 ml -2450 ml Constitutional: alert, oriented, well developed Psych: no complaints Head: normocephalic Eyes: nl conjunctiva ENMT: nl external ears & nose Neck: supple Respiratory: clear to auscultation, normal air movement Cardiovascular: regular rate and rhythm, nl pulses Gastrointestinal: soft Musculoskeletal: nl extremities to inspection 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, nl mental status Medications Medication Current Medications Acetaminophen (Tylenol Tab) 650 mg Q4H PRN PO MILD PAIN(1-3)OR ELEVATED TEMP Last administered on 07/14/18at 02:53; Admin Dose 650 MG; Start 07/13/18 at 09:00 Ondansetron HCl (Zofran Inj) 4 mg Q6H PRN IV NAUSEA AND/OR VOMITING Last administered on 07/15/18at 23:07; Admin Dose 4 MG; Start 07/13/18 at 09:00 Acetaminophen/ Hydrocodone Bitart ([place] (5/325)) 1 tab Q4H PRN PO MODERATE PAIN LEVEL 4-6 Last administered on 07/13/18 16:21; Admin Dose 1 TAB; Start 07/13/18 at 09:00 Sevelamer Carbonate (Renvela) 2,400 mg WITH MEALS PO Last administered on 07/16/18 08:17; Admin Dose 2,400 MG; Start 07/13/18 at 11:40 Multivit/Ca Carb/ B Cmplx/FA/Prenat (Aminah-Tanisha) 1 tab DAILY PO Last administered on 07/16/18 08:16; Admin Dose 1 TAB; Start 07/13/18 at 09:00 Lidocaine (Lidoderm) 1 patch DAILY TD Last administered on 07/15/18 08:29; Admin Dose 1 PATCH; Start 07/13/18 at 21:30 Bromocriptine Mesylate (Parlodel) 2.5 mg QHS PO Last administered on 07/15/18 22:23; Admin Dose 2.5 MG; Start 07/14/18 at 21:00 Naproxen (Naprosyn) 500 mg BID PRN PO PAIN AND/OR INFLAMMATION; Start 07/13/18 at 23:30 Pantoprazole (Protonix Tab) 40 mg DAILY@06 PO Last administered on 07/16/18 05:09; Admin Dose 40 MG; Start 07/14/18 at 06:00 Zolpidem Tartrate (Ambien) 10 mg QHS PRN PO INSOMNIA; Start 07/13/18 at 23:30 Morphine Sulfate (morphine) 4 mg Q3H PRN IV SEVERE PAIN LEVEL 7-10 Last administered on 07/15/18 22:24; Admin Dose 4 MG; Start 07/14/18 at 01:00 Diphenhydramine HCl (Benadryl) 50 mg Q6H PRN IV itchiness Last administered on 07/16/18 11:20; Admin Dose 50 MG; Start 07/14/18 at 03:00 Heparin Sodium (Porcine) (Heparin (1000 Units/ml)) 3,000 unit AFTER DIALYSIS CATHETER Last administered on 07/15/18 22:20; Admin Dose 3,000 UNIT; Start 07/14/18 at 16:30 Calcitriol (Rocaltrol) 0.25 mcg DAILY PO Last administered on 07/16/18 08:16; Admin Dose 0.25 MCG; Start 07/15/18 at 09:00 Cefazolin Sodium 50 ml @ 100 mls/hr Q24H IVPB Last administered on 07/15/18at 22:23; Admin Dose 100 MLS/HR; Start 07/15/18 at 21:00 Valacyclovir HCl (Valtrex) 1,000 mg QHS PO Last administered on 07/15/18at 22 :23; Admin Dose 1,000 MG; Start 07/15/18 at 21:00; Stop 07/17/18 at 20:59 Epoetin Maxwell (Epogen (Esrd)) 8,000 units TuThSa@17 SC ; Start 07/16/18 at 17:00 Midodrine (Proamatine) 10 mg TID@09,13,17 PO ; Start 07/16/18 at 13:00 Sodium Chloride 500 ml @ 500 mls/hr Q1H ONCE IV Last administered on 07/16/18at 11:20; Admin Dose 500 MLS/HR; Start 07/16/18 at 11:30; Stop 07/16/18 at 12:29 ANNIE SANTOS MD Jul 16, 2018 11:54
--- NOTE | 2018-07-16 12:51 | PN ---
Date/Time of Note Date/Time of Note DATE: 07/16/18 TIME: 12:51 Assessment/Plan VTE Prophylaxis Risk score (from Ns)>0 risk: 2 SCD applied (from Ns): Yes Pharmacological prophylaxis: LMWH Lines/Catheters IV Catheter Type (from [facility]): Peripheral IV Urinary Cath still in place: No Assessment/Plan Hospital Course -Possible line sepsis, - line is dcd by Dr Bello today -follow-up on blood cultures from the catheter - ID consult-Dr. Arora in infection disease consultation. -am labs - c/s aground port insertion side - Hyperkalemia - pr nephro - HD per nephro -Hemodialysis dependent end-stage renal disease. - HD per Dr Silverio in nephrology consultation. -History of hyperparathyroidism, status post subtotal parathyroidectomy of the right superior and inferior glands, partial left inferior gland in June 2016. - Status post left upper and lower parathyroidectomy and partial left thyroid lobectomy in November [address] Morales, ENT. -Right chest hemodialysis catheter present on admission. -Left upper extremity AV fistula nonfunctioning - Dr. Nolan boone in vascular surgery consultation. Result Diagram: 07/15/185 07/15/18444 Subjective 24 Hr Interval Summary Free Text/Dictation Patient complains of pain but unable to be give pain medication because of hypotensioin Exam/Review of Systems Exam Vitals Vital Signs Date Temp Pulse Resp B/P (MAP) Pulse Ox O2 O2 Flow FiO2 Time Delivery Rate 07/16/18 75 17 84/46 (59) 96 12:37 07/16/18 98.6 11:00 07/15/18 Room Air 22:34 Intake and Output 07/15/18 07/15/18 07/16/18 1515:00 23:00 07:00 IntakeIntake Total 400 ml 50 ml OutputOutput Total 2500 ml BalanceBalance 400 ml -2450 ml Constitutional: well developed Head: normocephalic, atraumatic Neck: supple Respiratory: diminished breath sounds Cardiovascular: regular rate and rhythm Gastrointestinal: soft, non-tender Extremities: normal pulses Medications Medication Current Medications Acetaminophen (Tylenol Tab) 650 mg Q4H PRN PO MILD PAIN(1-3)OR ELEVATED TEMP Last administered on 07/14/18at 02:53; Admin Dose 650 MG; Start 07/13/18 at 09:00 Ondansetron HCl (Zofran Inj) 4 mg Q6H PRN IV NAUSEA AND/OR VOMITING Last administered on 07/15/18 23:07; Admin Dose 4 MG; Start 07/13/18 at 09:00 Acetaminophen/ Hydrocodone Bitart ([place] (5/325)) 1 tab Q4H PRN PO MODERATE PAIN LEVEL 4-6 Last administered on 07/13/18 16:21; Admin Dose 1 TAB; Start 07/13/18 at 09:00 Sevelamer Carbonate (Renvela) 2,400 mg WITH MEALS PO Last administered on 07/16/18 12:41; Admin Dose 2,400 MG; Start 07/13/18 at 11:40 Multivit/Ca Carb/ B Cmplx/FA/Prenat (Aminah-Tanisha) 1 tab DAILY PO Last ad ministered on 07/16/18 08:16; Admin Dose 1 TAB; Start 07/13/18 at 09:00 Lidocaine (Lidoderm) 1 patch DAILY TD Last administered on 07/15/18 08:29; Admin Dose 1 PATCH; Start 07/13/18 at 21:30 Bromocriptine Mesylate (Parlodel) 2.5 mg QHS PO Last administered on 07/15/18 22:23; Admin Dose 2.5 MG; Start 07/14/18 at 21:00 Naproxen (Naprosyn) 500 mg BID PRN PO PAIN AND/OR INFLAMMATION; Start 07/13/18 at 23:30 Pantoprazole (Protonix Tab) 40 mg DAILY@06 PO Last administered on 07/16/18 05:09; Admin Dose 40 MG; Start 07/14/18 at 06:00 Zolpidem Tartrate (Ambien) 10 mg QHS PRN PO INSOMNIA; Start 07/13/18 at 23:30 Morphine Sulfate (morphine) 4 mg Q3H PRN IV SEVERE PAIN LEVEL 7-10 Last administered on 07/15/18 22:24; Admin Dose 4 MG; Start 07/14/18 at 01:00 Diphenhydramine HCl (Benadryl) 50 mg Q6H PRN IV itchiness Last administered on 07/16/18 11:20; Admin Dose 50 MG; Start 07/14/18 at 03:00 Heparin Sodium (Porcine) (Heparin (1000 Units/ml)) 3,000 unit AFTER DIALYSIS CATHETER Last administered on 07/15/18 22:20; Admin Dose 3,000 UNIT; Start 07/14/18 at 16:30 Calcitriol (Rocaltrol) 0.25 mcg DAILY PO Last administered on 07/16/18 08:16; Admin Dose 0.25 MCG; Start 07/15/18 at 09:00 Cefazolin Sodium 50 ml @ 100 mls/hr Q24H IVPB Last administered on 07/15/18at 22:23; Admin Dose 100 MLS/HR; Start 07/15/18 at 21:00 Valacyclovir HCl (Valtrex) 1,000 mg QHS PO Last administered on 07/15/18 22:23; Admin Dose 1,000 MG; Start 07/15/18 at 21:00; Stop 07/17/18 at 20:59 Epoetin Maxwell (Epogen (Esrd)) 8,000 units TuThSa@17 SC ; Start 07/16/18 at 17:00 Midodrine (Proamatine) 10 mg TID@,, PO Last administered on 07/16/18 12:42; Admin Dose 10 MG; Start 07/16/18 at 13:00 ANGELY PANG Jul 16, 2018 12:51
[2018-07-16] MEDS: morphine 4 MG/ML VIAL IV PRN ×2 (14:39→20:16)
--- NOTE | 2018-07-16 15:44 | CONS ---
[facility] HCIS Consult Follow-up Patient Name: Maria Luisa Lakhani Unit Number: [id number] Date of : 1985 Patient Status: Admitted Inpatient Attending Doctor: Pawan Walter MD Edit: GINGER LEONE M.D. 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 The culture of the tip of the removed catheter, blood cultures and swab of the catheter site were negative. Pt completed an empiric course of renally dosed pip/tazo (06/13/2018-06/18/2018) - s/p placement of a new permacath on R chest wall on 06/23/2018 - s/p biliary cholic, N&E, intermittent: according to Pt, she had received authorization for elective cholecystectomy as outpatient - s/p MRCP in 07/2017: negative for cholelithiasis or cholecystitis - s/p chills during the dialysis, subjective fever and anorexia prior to admission are concerning for bloodstream infections - h/o placement and removal of HD catheters, according to Pt, she has had 9 episodes of HD catheter site/catheter infection - h/o creation of AVF in [facility] in 2016, thrombosed L brachiocephalic AV fistula, 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 Her last cycle was about 3 weeks ago - s/p thrombocytopenia likely d/t linezolid. Linezolid was discontinued on 06/17/2018 (took linezolid (06/12/2018-06/17/2018) - allergy to vancomycin (pruritus) Recommendations: - F/u Repeat blood cultures x2 from yesterday evening with HD (one peripheral draw and one from HD catheter) - pending - Continue renally dosed Cefazolin for MSSA infection- s/p Daptomycin (CK 30 on 07/15/2018) - Complete 3 day course of renally dosed Valtrex for HSV lip lesion tomorrow - Recommend Echo to r/o endocarditis - Pt is s/p removal of perez cath with new femoral line placed; however given the notation of venous stenosis and thrombosed av fistula a longer abx course should be contemplated. We will further elucidate these issues with our vascular colleague. Management d/w patient and with Dr. Leone. Thank you Consultation Date/Type/Reason Admit Date/Time Jul 13, 2018 at 05:59 Initial Consult Date 07/14/18 Type of Consult ID Requesting Provider: PAWAN WALTER MD Date/Time of Note DATE: 07/16/18 TIME: 15:41 24 HR Interval Summary Free Text/Dictation Patient states that yesterday when she had blood drawn, as soon as they injected the needle for blood that she felt a pain in her Left chest. She states today with blood draw, she felt a similar pain but that it was decreased from yesterday. She reports no dizziness or light headedness but her BP has been low. She reports that she vomited yesterday after receiving "two blue pills." Denies current h/a, sob, cp, n/v/d, dysuria, cough, pruritis, rash. She reports pain in right chest at previous dialysis catheter site with tenderness at the anterior portion of the site. Exam/Review of Systems Exam Vitals Vital Signs Date Temp Pulse Resp B/P (MAP) Pulse Ox O2 O2 Flow FiO2 Time Delivery Rate 07/16/18 98.1 84 18 86/42 (57) 98 14:36 07/15/18 Room Air 22:34 Intake and Output 07/15/18 07/15/18 07/16/18 1414:59 22:59 06:59 IntakeIntake Total 400 ml 50 ml OutputOutput Total 2500 ml BalanceBalance 400 ml -2500 ml 50 ml Allergies Coded Allergies vancomycin (Unverified Allergy, Severe, 07/13/18) pruritus pineapple (Unverified Allergy, Mild, 07/13/18) watermelon (Unverified Allergy, Unknown, 07/13/18) peach (Unverified Adverse Reaction, Unknown, HEADACHE, 07/13/18) Constitutional: alert, oriented, well developed, other (wearing a large beanie on her head ) Psych: no complaints, nl mood/affect Head: normocephalic, atraumatic Eyes: nl conjunctiva, nl lids, nl sclera ENMT: nl external ears & nose, nl nasal mucosa & septum, mucosa pink and moist (no thrush), other (HSV lesion R upper lip) Neck: supple, non-tender Respiratory: clear to auscultation, normal air movement Cardiovascular: regular rate and rhythm, nl pulses Gastrointestinal: soft, non-tender, bowel sounds Genitourinary - Female: other (No f/c; R femoral HD catheter with a clean but l oose dressing. 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 No induration, heat, swelling, or erythema noted. Open to air. ); No rash or lesions Results Result Diagram: 07/15/1844407/15/18444 Medications Medication Current Medications Acetaminophen (Tylenol Tab) 650 mg Q4H PRN PO MILD PAIN(1-3)OR ELEVATED TEMP Last administered on 07/14/18 02:53; Admin Dose 650 MG; Start 07/13/18 at 09:00 Ondansetron HCl (Zofran Inj) 4 mg Q6H PRN IV NAUSEA AND/OR VOMITING Last administered on 07/15/18 23:07; Admin Dose 4 MG; Start 07/13/18 at 09:00 Acetaminophen/ Hydrocodone Bitart ([place] (5/325)) 1 tab Q4H PRN PO MODERATE PAIN LEVEL 4-6 Last administered on 07/13/18 16:21; Admin Dose 1 TAB; Start 07/13/18 at 09:00 Sevelamer Carbonate (Renvela) 2,400 mg WITH MEALS PO Last administered on 07/16/18 12:41; Admin Dose 2,400 MG; Start 07/13/18 at 11:40 Multivit/Ca Carb/ B Cmplx/FA/Prenat (Aminah-Tansiha) 1 tab DAILY PO Last administered on 07/16/18 08:16; Admin Dose 1 TAB; Start 07/13/18 at 09:00 Lidocaine (Lidoderm) 1 patch DAILY TD Last administered on 07/15/18 08:29; Admin Dose 1 PATCH; Start 07/13/18 at 21:30 Bromocriptine Mesylate (Parlodel) 2.5 mg QHS PO Last administered on 07/15/18 22:23; Admin Dose 2.5 MG; Start 07/14/18 at 21:00 Naproxen (Naprosyn) 500 mg BID PRN PO PAIN AND/OR INFLAMMATION; Start 07/13/18 at 23:30 Pantoprazole (Protonix Tab) 40 mg DAILY@06 PO Last administered on 07/16/18 05:09; Admin Dose 40 MG; Start 07/14/18 at 06:00 Zolpidem Tartrate (Ambien) 10 mg QHS PRN PO INSOMNIA; Start 07/13/18 at 23:30 Morphine Sulfate (morphine) 4 mg Q3H PRN IV SEVERE PAIN LEVEL 7-10 Last administered on 07/16/18 14:39; Admin Dose 4 MG; Start 07/14/18 at 01:00 Diphenhydramine HCl (Benadryl) 50 mg Q6H PRN IV itchiness Last administered on 07/16/18 11:20; Admin Dose 50 MG; Start 07/14/18 at 03:00 Heparin Sodium (Porcine) (Heparin (1000 Units/ml)) 3,000 unit AFTER DIALYSIS CATHETER Last administered on 07/15/18 22:20; Admin Dose 3,000 UNIT; Start 07/14/18 at 16:30 Calcitriol (Rocaltrol) 0.25 mcg DAILY PO Last administered on 07/16/18 08:16; Admin Dose 0.25 MCG; Start 07/15/18 at 09:00 Cefazolin Sodium 50 ml @ 100 mls/hr Q24H IVPB Last administered on 07/15/18 22:23; Admin Dose 100 MLS/HR; Start 07/15/18 at 21:00 Valacyclovir HCl (Valtrex) 1,000 mg QHS PO Last administered on 07/15/18 22:23; Admin Dose 1,000 MG; Start 07/15/18 at 21:00; Stop 07/17/18 at 20:59 Epoetin Maxwell (Epogen (Esrd)) 8,000 units TuThSa@17 SC ; Start 07/16/18 at 17:00 Midodrine (Proamatine) 10 mg TID@,,17 PO Last administered on 07/16/18 12:42; Admin Dose 10 MG; Start 07/16/18 at 13:00 NELY ACOSTA NP Jul 16, 2018 15:44
[2018-07-16] MEDS: EPOETIN 4000 UNITS/1 ML INJ (ESRD) SC SCH (17:23)
[2018-07-16] MEDS: CEFAZOLIN 1 GM/50 ML (PMX) 50 ML IVPB SCH (20:28)
[2018-07-16] MEDS: BROMOCRIPTINE 2.5 MG TAB PO SCH (20:28)
[2018-07-16] MEDS: valACYclovir 500 MG TAB PO SCH (20:28)
[2018-07-17 01:19] VITALS: BP 92/42; PULSE 65; RESP 18
[2018-07-17] MEDS: morphine 4 MG/ML VIAL IV PRN ×7 (01:27→20:24)
[2018-07-17] MEDS: ONDANSETRON 4 MG INJ IV PRN ×2 (01:31→19:17)
[2018-07-17] MEDS: PANTOPRAZOLE (EC) 40 MG TAB PO SCH (06:13)
[2018-07-17] MEDS: DIPHENHYDRAMINE 50 MG INJ IV PRN ×3 (06:46→19:17)
[2018-07-17 06:49] VITALS: BP 86/48; PULSE 70
[2018-07-17 07:32] VITALS: BP 87/47; PULSE 67; RESP 16
[2018-07-17] MEDS: SEVELAMER CARBONATE 800 MG TABLET PO SCH ×3 (08:59→17:28)
[2018-07-17] MEDS: LIDOCAINE 5% PATCH TD SCH (09:00)
[2018-07-17] MEDS: CALCITRIOL 0.25 MCG CAP PO SCH (09:00)
[2018-07-17] MEDS: MULTIVIT/CA CARB/B CMPLX/FA TAB PO SCH (09:00)
[2018-07-17] MEDS: MIDODRINE 5 MG TAB PO SCH ×3 (09:26→17:28)
[2018-07-17 10:38] VITALS: BP 105/59; PULSE 74
--- NOTE | 2018-07-17 12:05 | PN ---
Date/Time of Note Date/Time of Note DATE: 07/17/18 TIME: 12:02 Assessment/Plan VTE Prophylaxis Risk score (from Nsg)>0 risk: 2 SCD applied (from Nsg): Yes Pharmacological prophylaxis: other Lines/Catheters IV Catheter Type (from Nrsg): Urinary Cath still in place: No Assessment/Plan Assessment/Plan pain r breast us follow up chk labs hd if needed today based on labs Result Diagram: 07/15/1844407/15/18444 Subjective 24 Hr Interval Summary Constitutional: other Eyes: no complaints ENT: no complaints Respiratory: no complaints Cardiovascular: no complaints Gastrointestinal: no complaints Genitourinary: no complaints Musculoskeletal: no complaints Skin: other Neurologic: no complaints Exam/Review of Systems Exam Vitals Vital Signs Date Temp Pulse Resp B/P (MAP) Pulse Ox O2 O2 Flow FiO2 Time Delivery Rate 07/17/18 74 105/59 10:38 (74) 07/17/18 98.0 16 100 07:32 07/15/18 Room Air 22:34 Intake and Output 07/16/18 07/16/18 07/17/18 1414:59 22:59 06:59 IntakeIntake Total 1100 ml 690 ml BalanceBalance 1100 ml 690 ml Constitutional: alert, oriented, well developed Psych: no complaints, nl mood/affect Head: normocephalic, atraumatic Eyes: nl conjunctiva ENMT: nl external ears & nose Neck: supple, non-tender Respiratory: clear to auscultation, normal air movement Cardiovascular: regular rate and rhythm, nl pulses Gastrointestinal: soft, nl liver, spleen, non-tender Extremities: normal pulses Medications Medication Current Medications Acetaminophen (Tylenol Tab) 650 mg Q4H PRN PO MILD PAIN(1-3)OR ELEVATED TEMP Last administered on 07/14/18at 02:53; Admin Dose 650 MG; Start 07/13/18 at 09:00 Ondansetron HCl (Zofran Inj) 4 mg Q6H PRN IV NAUSEA AND/OR VOMITING Last administered on 07/17/18at 01:31; Admin Dose 4 MG; Start 07/13/18 at 09:00 Acetaminophen/ Hydrocodone Bitart ([place] (5/325)) 1 tab Q4H PRN PO MODERATE PAIN LEVEL 4-6 Last administered on 07/13/18at 16:21; Admin Dose 1 TAB; Start 07/13/18 at 09:00 Sevelamer Carbonate (Renvela) 2,400 mg WITH MEALS PO Last administered on 07/17/18 08:59; Admin Dose 2,400 MG; Start 07/13/18 at 11:40 Multivit/Ca Carb/ B Cmplx/FA/Prenat (Aminah-Tanisha) 1 tab DAILY PO Last administered on 07/16/18 08:16; Admin Dose 1 TAB; Start 07/13/18 at 09:00 Lidocaine (Lidoderm) 1 patch DAILY TD Last administered on 07/15/18 08:29; Admin Dose 1 PATCH; Start 07/13/18 at 21:30 Bromocriptine Mesylate (Parlodel) 2.5 mg QHS PO Last administered on 07/16/18 20:28; Admin Dose 2.5 MG; Start 07/14/18 at 21:00 Naproxen (Naprosyn) 500 mg BID PRN PO PAIN AND/OR INFLAMMATION; Start 07/13/18 at 23:30 Pantoprazole (Protonix Tab) 40 mg DAILY@06 PO Last administered on 07/17/18 06:13; Admin Dose 40 MG; Start 07/14/18 at 06:00 Zolpidem Tartrate (Ambien) 10 mg QHS PRN PO INSOMNIA; Start 07/13/18 at 23:30 Diphenhydramine HCl (Benadryl) 50 mg Q6H PRN IV itchiness Last administered on 07/17/18 06:46; Admin Dose 50 MG; Start 07/14/18 at 03:00 Heparin Sodium (Porcine) (Heparin (1000 Units/ml)) 3,000 unit AFTER DIALYSIS CATHETER Last administered on 07/15/18 22:20; Admin Dose 3,000 UNIT; Start 07/14/18 at 16:30 Calcitriol (Rocaltrol) 0.25 mcg DAILY PO Last administered on 07/17/18 09:00; Admin Dose 0.25 MCG; Start 07/15/18 at 09:00 Cefazolin Sodium 50 ml @ 100 mls/hr Q24H IVPB Last administered on 07/16/18 20:28; Admin Dose 100 MLS/HR; Start 07/15/18 at 21:00 Valacyclovir HCl (Valtrex) 1,000 mg QHS PO Last administered on 07/16/18at 20:28; Admin Dose 1,000 MG; Start 07/15/18 at 21:00; Stop 07/17/18 at 20:59 Epoetin Maxwell (Epogen (Esrd)) 8,000 units TuThSa@17 SC Last administered on 07/16/18at 17:23; Admin Dose 8,000 UNITS; Start 07/16/18 at 17:00 Midodrine (Proamatine) 10 mg TID@,13,17 PO Last administered on 07/17/18at 09:26; Admin Dose 10 MG; Start 07/16/18 at 13:00 Morphine Sulfate (morphine) 4 mg Q2H PRN IV SEVERE PAIN LEVEL 7-10 Last administered on 07/17/18at 08:52; Admin Dose 4 MG; Start 07/17/18 at 09:00 ANNIE SANTOS MD Jul 17, 2018 12:05
--- NOTE | 2018-07-17 12:41 | PN ---
Date/Time of Note Date/Time of Note DATE: 07/17/18 TIME: 12:40 Assessment/Plan VTE Prophylaxis Risk score (from Ns)>0 risk: 2 SCD applied (from Ns): Yes Pharmacological prophylaxis: LMWH Lines/Cathe[facility] Cath still in place: No Assessment/Plan Hospital Course -Possible line sepsis, - line is dcd by Dr Bello today -follow-up on blood cultures from the catheter - ID consult-Dr. Arora in infection disease consultation. -am labs - c/s aground port insertion side - Hyperkalemia - pr nephro - HD per nephro -Hemodialysis dependent end-stage renal disease. - HD per Dr Silverio in nephrology consultation. -History of hyperparathyroidism, status post subtotal parathyroidectomy of the right superior and inferior glands, partial left inferior gland in June 2016. - Status post left upper and lower parathyroidectomy and partial left thyroid lobectomy in November [address] Morales, ENT. -Right chest hemodialysis catheter present on admission. -Left upper extremity AV fistula nonfunctioning - Dr. Nolan boone in vascular surgery consultation. Result Diagram: 07/15/185 07/15/18 0445 Subjective 24 Hr Interval Summary Free Text/Dictation Patient complain of pain in right breast Exam/Review of Systems Exam Vitals Vital Signs Date Temp Pulse Resp B/P (MAP) Pulse Ox O2 O2 Flow FiO2 Time Delivery Rate 07/17/18 74 105/59 10:38 (74) 07/17/18 98.0 16 100 07:32 07/15/18 Room Air 22:34 Intake and Output 07/16/18 07/16/18 07/17/18 1515:00 23:00 07:00 IntakeIntake Total 1100 ml 690 ml BalanceBalance 1100 ml 690 ml Constitutional: well developed Head: normocephalic, atraumatic Neck: supple Respiratory: clear to auscultation Cardiovascular: regular rate and rhythm Gastrointestinal: soft, non-tender Extremities: normal pulses Medications Medication Current Medications Acetaminophen (Tylenol Tab) 650 mg Q4H PRN PO MILD PAIN(1-3)OR ELEVATED TEMP Last administered on 07/14/18at 02:53; Admin Dose 650 MG; Start 07/13/18 at 09:00 Ondansetron HCl (Zofran Inj) 4 mg Q6H PRN IV NAUSEA AND/OR VOMITING Last administered on 07/17/18 01:31; Admin Dose 4 MG; Start 07/13/18 at 09:00 Acetaminophen/ Hydrocodone Bitart ([place] (5/325)) 1 tab Q4H PRN PO MODERATE PAIN LEVEL 4-6 Last administered on 07/13/18 16:21; Admin Dose 1 TAB; Start 07/13/18 at 09:00 Sevelamer Carbonate (Renvela) 2,400 mg WITH MEALS PO Last administered on 07/17/18 08:59; Admin Dose 2,400 MG; Start 07/13/18 at 11:40 Multivit/Ca Carb/ B Cmplx/FA/Prenat (Aminah-Tanisha) 1 tab DAILY PO Last administe red on 07/16/18 08:16; Admin Dose 1 TAB; Start 07/13/18 at 09:00 Lidocaine (Lidoderm) 1 patch DAILY TD Last administered on 07/15/18 08:29; Admin Dose 1 PATCH; Start 07/13/18 at 21:30 Bromocriptine Mesylate (Parlodel) 2.5 mg QHS PO Last administered on 07/16/18 20:28; Admin Dose 2.5 MG; Start 07/14/18 at 21:00 Naproxen (Naprosyn) 500 mg BID PRN PO PAIN AND/OR INFLAMMATION; Start 07/13/18 at 23:30 Pantoprazole (Protonix Tab) 40 mg DAILY@06 PO Last administered on 07/17/18 06:13; Admin Dose 40 MG; Start 07/14/18 at 06:00 Zolpidem Tartrate (Ambien) 10 mg QHS PRN PO INSOMNIA; Start 07/13/18 at 23:30 Diphenhydramine HCl (Benadryl) 50 mg Q6H PRN IV itchiness Last administered on 07/17/18 06:46; Admin Dose 50 MG; Start 07/14/18 at 03:00 Heparin Sodium (Porcine) (Heparin (1000 Units/ml)) 3,000 unit AFTER DIALYSIS CATHETER Last administered on 07/15/18 22:20; Admin Dose 3,000 UNIT; Start 07/14/18 at 16:30 Calcitriol (Rocaltrol) 0.25 mcg DAILY PO Last administered on 07/17/18 09:00; Admin Dose 0.25 MCG; Start 07/15/18 at 09:00 Cefazolin Sodium 50 ml @ 100 mls/hr Q24H IVPB Last administered on 07/16/18 20:28; Admin Dose 100 MLS/HR; Start 07/15/18 at 21:00 Valacyclovir HCl (Valtrex) 1,000 mg QHS PO Last administered on 07/16/18 20:28; Admin Dose 1,000 MG; Start 07/15/18 at 21:00; Stop 07/17/18 at 20:59 Epoetin Maxwell (Epogen (Esrd)) 8,000 units TuThSa@17 SC Last administered on 07/16/18 17:23; Admin Dose 8,000 UNITS; Start 07/16/18 at 17:00 Midodrine (Proamatine) 10 mg TID@09,13,17 PO Last administered on 07/17/18 09:26; Admin Dose 10 MG; Start 07/16/18 at 13:00 Morphine Sulfate (morphine) 4 mg Q2H PRN IV SEVERE PAIN LEVEL 7-10 Last administered on 07/17/18 12:01; Admin Dose 4 MG; Start 07/17/18 at 09:00 ANGELY PANG 24, 2019 12:41
[2018-07-17 15:05] VITALS: BP 102/56; PULSE 70; RESP 18
--- NOTE | 2018-07-17 15:39 | CONS ---
[facility] HCIS Consult Follow-up Patient Name: Maria Luisa Lakhani Unit Number: [id number] Date of : 1985 Patient Status: Admitted Inpatient Attending Doctor: Pawan Walter MD Edit: GINGER LEONE M.D. 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 The culture of the tip of the removed catheter, blood cultures and swab of the catheter site were negative. Pt completed an empiric course of renally dosed pip/tazo (06/13/2018-06/18/2018) - s/p placement of a new permacath on R chest wall on 06/23/2018 - s/p biliary cholic, N&E, intermittent: according to Pt, she had received authorization for elective cholecystectomy as outpatient - s/p MRCP in 07/2017: negative for cholelithiasis or cholecystitis - s/p chills during the dialysis, subjective fever and anorexia prior to admission are concerning for bloodstream infections - h/o placement and removal of HD catheters, according to Pt, she has had 9 episodes of HD catheter site/catheter infection - h/o creation of AVF in [facility] in 2016, thrombosed L brachiocephalic AV fistula, 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 Her last cycle was about 3 weeks ago - s/p thrombocytopenia likely d/t linezolid. Linezolid was discontinued on 06/17/2018 (took linezolid (06/12/2018-06/17/2018) - allergy to vancomycin (pruritus) Recommendations: - F/u Repeat blood cultures x2 from 07/15/18 with HD (one peripheral draw and one from HD catheter) - NGTD - Continue renally dosed Cefazolin for MSSA infection- s/p Daptomycin (CK 30 on 07/15/2018) - Complete 3 day course of renally dosed Valtrex for HSV lip lesion today (07/15/18 - 07/17/18) - Recommend Echo to r/o endocarditis - F/u Breast ultrasound - Pt is s/p removal of perez cath with new femoral line placed; however given the notation of venous stenosis and thrombosed av fistula a longer abx course should be contemplated. We will further elucidate these issues with our vascular colleague. Management d/w patient, BRIANA Sharpe, and with Dr. Leone. Thank you Consultation Date/Type/Reason Admit Date/Time Jul 13, 2018 at 05:59 Initial Consult Date 07/14/18 Type of Consult ID Requesting Provider: PAWAN WALTER MD Date/Time of Note DATE: 07/17/18 TIME: 15:37 24 HR Interval Summary Free Text/Dictation Per d/w BRIANA Sharpe, the patient was c/o "severe" pain of the Right breast. An ultrasound of the breast was ordered and completed and the result is pending. Pain medication regimen was adjusted and patient has had more pain control reported today. Remains afebrile. Per d/w patient, her R groin perez dressing is loose and needs changing - I alerted BRIANA Sharpe. Patient denies fevers, chills, night sweats, sob, cp, n/v/d, dysuria, pruritis, rash. She c/o pain right chest where her previous HD cath was and also severe pain right breast, she points to 12'oclock and 9'oclock areas. Exam/Review of Systems Exam Vitals Vital Signs Date Temp Pulse Resp B/P (MAP) Pulse Ox O2 O2 Flow FiO2 Time Delivery Rate 07/17/18 98.8 70 18 102/56 99 15:05 (71) 07/15/18 Room Air 22:34 Intake and Output 07/16/18 07/16/18 07/17/18 1515:00 23:00 07:00 IntakeIntake Total 1100 ml 690 ml BalanceBalance 1100 ml 690 ml Allergies Coded Allergies vancomycin (Unverified Allergy, Severe, 07/13/18) pruritus pineapple (Unverified Allergy, Mild, 07/13/18) watermelon (Unverified Allergy, Unknown, 07/13/18) peach (Unverified Adverse Reaction, Unknown, HEADACHE, 07/13/18) Exam Constitutional: alert, oriented, well developed, other (wearing a bandana on her head) Psych: no complaints, nl mood/affect Head: normocephalic, atraumatic Eyes: nl conjunctiva, nl lids, nl sclera ENMT: nl external ears & nose, nl nasal mucosa & septum, mucosa pink and moist (no thrush), other (HSV lesion R upper lip - healing) Neck: supple, non-tender Respiratory: clear to auscultation, normal air movement Cardiovascular: regular rate and rhythm, nl pulses Gastrointestinal: soft, non-tender, bowel sounds Genitourinary - Female: other (No f/c; R femoral HD catheter with a clean but loose dressing) Musculoskeletal: nl extremities to inspection Extremities: normal pulses, other (LUE avf noted) 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 No induration, heat, swelling, or erythema noted. Open to air); other (Right breast without erythema, swelling, induration. Tender to palpation throughout, patient withdraws and says "ouch" when I palpated Right lateral breast at 9'0clock p osition. No lumps or nodules were palpated.) No rash or lesions Results Result Diagram: 07/17/18 1359 07/17/18 1359 Results 24hrs Laboratory Tests Test 07/17/18 13:59 White Blood Count 6.1 # Red Blood Count 2.98 L Hemoglobin 9.7 L Hematocrit 31.3 L Mean Corpuscular Volume 105.0 H Mean Corpuscular Hemoglobin 32.6 Mean Corpuscular Hemoglobin Concent 31.0 L Red Cell Distribution Width 14.6 H Platelet Count 172 # Mean Platelet Volume 11.9 H Immature Granulocytes % 0.500 H Neutrophils % 51.0 Lymphocytes % 28.4 Monocytes % 10.0 Eosinophils % 9.3 H Basophils % 0.8 Nucleated Red Blood Cells % 0.0 Immature Granulocytes # 0.030 Neutrophils # 3.1 Lymphocytes # 1.7 Monocytes # 0.6 Eosinophils # 0.6 H Basophils # 0.1 Nucleated Red Blood Cells # 0.0 Sodium Level 144 Potassium Level 5.4 H Chloride Level 104 Carbon Dioxide Level 24 Anion Gap 16 H Blood Urea Nitrogen 48 H Creatinine 8.43 H Est Glomerular Filtrat Rate mL/min 5 L Glucose Level 68 L Calcium Level 9.2 Medications Medication Current Medications Acetaminophen (Tylenol Tab) 650 mg Q4H PRN PO MILD PAIN(1-3)OR ELEVATED TEMP Last administered on 07/14/18 02:53; Admin Dose 650 MG; Start 07/13/18 at 09:00 Ondansetron HCl (Zofran Inj) 4 mg Q6H PRN IV NAUSEA AND/OR VOMITING Last administered on 07/17/18 01:31; Admin Dose 4 MG; Start 07/13/18 at 09:00 Acetaminophen/ Hydrocodone Bitart ([place] (5/325)) 1 tab Q4H PRN PO MODERATE PAIN LEVEL 4-6 Last administered on 07/13/18 16:21; Admin Dose 1 TAB; Start 07/13/18 at 09:00 Sevelamer Carbonate (Renvela) 2,400 mg WITH MEALS PO Last administered on 06/25 08:59; Admin Dose 2,400 MG; Start 07/13/18 at 11:40 Multivit/Ca Carb/ B Cmplx/FA/Prenat (Aminah-Tanisha) 1 tab DAILY PO Last administered on 07/16/18 08:16; Admin Dose 1 TAB; Start 07/13/18 at 09:00 Lidocaine (Lidoderm) 1 patch DAILY TD Last administered on 07/15/18 08:29; Admin Dose 1 PATCH; Start 07/13/18 at 21:30 Bromocriptine Mesylate (Parlodel) 2.5 mg QHS PO Last administered on 07/16/18 20:28; Admin Dose 2.5 MG; Start 07/14/18 at 21:00 Naproxen (Naprosyn) 500 mg BID PRN PO PAIN AND/OR INFLAMMATION; Start 07/13/18 at 23:30 Pantoprazole (Protonix Tab) 40 mg DAILY@06 PO Last administered on 07/17/18 06:13; Admin Dose 40 MG; Start 07/14/18 at 06:00 Zolpidem Tartrate (Ambien) 10 mg QHS PRN PO INSOMNIA; Start 07/13/18 at 23:30 Diphenhydramine HCl (Benadryl) 50 mg Q6H PRN IV itchiness Last administered on 07/17/18 13:25; Admin Dose 50 MG; Start 07/14/18 at 03:00 Heparin Sodium (Porcine) (Heparin (1000 Units/ml)) 3,000 unit AFTER DIALYSIS CATHETER Last administered on 07/15/18 22:20; Admin Dose 3,000 UNIT; Start 07/14/18 at 16:30 Calcitriol (Rocaltrol) 0.25 mcg DAILY PO Last administered on 07/17/18 09:00; Admin Dose 0.25 MCG; Start 07/15/18 at 09:00 Cefazolin Sodium 50 ml @ 100 mls/hr Q24H IVPB Last administered on 07/16/18 20:28; Admin Dose 100 MLS/HR; Start 07/15/18 at 21:00 Valacyclovir HCl (Valtrex) 1,000 mg QHS PO Last administered on 07/16/18 20:28; Admin Dose 1,000 MG; Start 07/15/18 at 21:00; Stop 07/17/18 at 20:59 Epoetin Maxwell (Epogen (Esrd)) 8,000 units TuThSa@17 SC Last administered on 07/16/18at 17:23; Admin Dose 8,000 UNITS; Start 07/16/18 at 17:00 Midodrine (Proamatine) 10 mg TID@09,13,17 PO Last administered on 07/17/18at 13:24; Admin Dose 10 MG; Start 07/16/18 at 13:00 Morphine Sulfate (morphine) 4 mg Q2H PRN IV SEVERE PAIN LEVEL 7-10 Last administered on 07/17/18at 14:25; Admin Dose 4 MG; Start 07/17/18 at 09:00 NELY ACOSTA NP Jul 17, 2018 15:39
[2018-07-17 19:31] VITALS: BP 120/68; PULSE 80; RESP 16
[2018-07-17] MEDS: BROMOCRIPTINE 2.5 MG TAB PO SCH (20:17)
[2018-07-17] MEDS: CEFAZOLIN 1 GM/50 ML (PMX) 50 ML IVPB SCH (20:17)
[2018-07-18] VITALS (18 sets, daily range): BP systolic 74–112; BP diastolic 48–67; PULSE 62–96; RESP 16–18
[2018-07-18] MEDS: morphine 4 MG/ML VIAL IV PRN ×4 (01:16→19:51)
[2018-07-18] MEDS: PANTOPRAZOLE (EC) 40 MG TAB PO SCH (06:04)
[2018-07-18] MEDS: DIPHENHYDRAMINE 50 MG INJ IV PRN ×3 (07:38→19:52)
[2018-07-18] MEDS: SEVELAMER CARBONATE 800 MG TABLET PO SCH ×3 (07:46→16:39)
[2018-07-18] MEDS: LIDOCAINE 5% PATCH TD SCH (08:27)
[2018-07-18] MEDS: CALCITRIOL 0.25 MCG CAP PO SCH (08:27)
[2018-07-18] MEDS: MIDODRINE 5 MG TAB PO SCH ×4 (08:27→16:39)
[2018-07-18] MEDS: MULTIVIT/CA CARB/B CMPLX/FA TAB PO SCH (08:27)
[2018-07-18] MEDS: HEPARIN 1000 UNITS/ML 10 ML INJ CATHETER SCH (14:52)
--- NOTE | 2018-07-18 15:12 | PN ---
Date/Time of Note Date/Time of Note DATE: 07/18/18 TIME: 15:03 Assessment/Plan VTE Prophylaxis Risk score (from Nsg)>0 risk: 7 SCD applied (from Nsg): Yes Pharmacological prophylaxis: heparin Lines/Catheters IV Catheter Type (from Nrsg): [place] Urinary Cath still in place: No Assessment/Plan Hospital Course Pt is undergoing HD via R fem HD cath, pain is adequately controlled, plan for Perma cath placement today. Assessment/Plan -Line sepsis, continue abx per ID. Dr Herrera is following in infection disease consultation. Right chest Perez catheter d/madisyn. -Hemodialysis dependent end-stage renal disease. is following in nephrology consultation. -History of hyperparathyroidism, status post subtotal parathyroidectomy of the right superior and inferior glands, partial left inferior gland in June 2016. Status post left upper and lower parathyroidectomy and partial left thyroid lobectomy in November [address] Morales, ENT. Dr. De La Fuente is asked to see pt in endocrinology consultation. -Left upper extremity AV fistula nonfunctioning, Dr. Francisco is following in vascular surgery consultation. Further recommendations based on clinical course. Plan of care discussed with Dr. Turner. Result Diagram: 07/17/18 1359 07/17/18 1359 Exam/Review of Systems Exam Vitals Vital Signs Date Temp Pulse Resp B/P (MAP) Pulse Ox O2 O2 Flow FiO2 Time Delivery Rate 07/18/18 97.9 72 18 112/60 96 14:04 (77) 07/18/18 Room Air 01:29 Intake and Output 07/17/18 07/17/18 07/18/18 1515:00 23:00 07:00 IntakeIntake Total 800 ml 170 ml BalanceBalance 800 ml 170 ml Constitutional: alert, oriented Neck: supple Respiratory: clear to auscultation Cardiovascular: nl pulses Gastrointestinal: soft Musculoskeletal: nl extremities to inspection Extremities: normal pulses 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: nl mental status Medications Medication Current Medications Acetaminophen (Tylenol Tab) 650 mg Q4H PRN PO MILD PAIN(1-3)OR ELEVATED TEMP Last administered on 07/14/18at 02:53; Admin Dose 650 MG; Start 07/13/18 at 09:00 Ondansetron HCl (Zofran Inj) 4 mg Q6H PRN IV NAUSEA AND/OR VOMITING Last administered on 07/17/18 19:17; Admin Dose 4 MG; Start 07/13/18 at 09:00 Acetaminophen/ Hydrocodone Bitart ([place] (5/325)) 1 tab Q4H PRN PO MODERATE PAIN LEVEL 4-6 Last administered on 07/13/18 16:21; Admin Dose 1 TAB; Start 07/13/18 at 09:00 Sevelamer Carbonate (Renvela) 2,400 mg WITH MEALS PO Last administered on 07/17/18 17:28; Admin Dose 2,400 MG; Start 07/13/18 at 11:40 Multivit/Ca Carb/ B Cmplx/FA/Prenat (Aminah-Tanisha) 1 tab DAILY PO Last administered on 07/16/18 08:16; Admin Dose 1 TAB; Start 07/13/18 at 09:00 Lidocaine (Lidoderm) 1 patch DAILY TD Last administered on 07/15/18 08:29; Admin Dose 1 PATCH; Start 07/13/18 at 21:30 Bromocriptine Mesylate (Parlodel) 2.5 mg QHS PO Last administered on 07/17/18 20:17; Admin Dose 2.5 MG; Start 07/14/18 at 21:00 Naproxen (Naprosyn) 500 mg BID PRN PO PAIN AND/OR INFLAMMATION; Start 07/13/18 at 23:30 Pantoprazole (Protonix Tab) 40 mg DAILY@06 PO Last administered on 07/18/18 06:04; Admin Dose 40 MG; Start 07/14/18 at 06:00 Zolpidem Tartrate (Ambien) 10 mg QHS PRN PO INSOMNIA; Start 07/13/18 at 23:30 Diphenhydramine HCl (Benadryl) 50 mg Q6H PRN IV itchiness Last administered on 07/18/18 13:41; Admin Dose 50 MG; Start 07/14/18 at 03:00 Heparin Sodium (Porcine) (Heparin (1000 Units/ml)) 3,000 unit AFTER DIALYSIS CATHETER Last administered on 07/18/18 14:52; Admin Dose 3,000 UNIT; Start 07/14/18 at 16:30 Calcitriol (Rocaltrol) 0.25 mcg DAILY PO Last administered on 07/17/18 09:00; Admin Dose 0.25 MCG; Start 07/15/18 at 09:00 Cefazolin Sodium 50 ml @ 100 mls/hr Q24H IVPB Last administered on 07/17/18at 20:17; Admin Dose 100 MLS/HR; Start 07/15/18 at 21:00 Epoetin Maxwell (Epogen (Esrd)) 8,000 units TuThSa@17 SC Last administered on 07/16/18at 17:23; Admin Dose 8,000 UNITS; Start 07/16/18 at 17:00 Midodrine (Proamatine) 10 mg TID@09,13,17 PO Last administered on 07/18/18 09:17; Admin Dose 10 MG; Start 07/16/18 at 13:00 Morphine Sulfate (morphine) 4 mg Q2H PRN IV SEVERE PAIN LEVEL 7-10 Last administered on 07/18/18 09:47; Admin Dose 4 MG; Start 07/17/18 at 09:00 ERICK ROBERTSON Jul 18, 2018 15:12
[2018-07-18] MEDS ORDERED: LIDOCAINE 1% (MDV) 20 ML INJ ONE (15:26)
[2018-07-18] MEDS ORDERED: HEPARIN 1000 UNITS/ML 10 ML INJ ONE (16:13)
[2018-07-18] MEDS ORDERED: CEFAZOLIN 1 GM/50 ML (PMX) 50 ML IVPB ONE (16:13)
[2018-07-18] MEDS ORDERED: FENTAnyl 50 MCG/ML VIAL ONE (16:13)
--- NOTE | 2018-07-18 19:29 | QN ---
Documentation Comment Pt upseT because HD RN unable to ultrafilter adequately during HD Spoke to the dialysis nurse hi spoke to the dialysis nurse who said BP is running to low pt not on hypotensive agents either Pt to have a new Permacath placed. Spoke to [employer]ATER[employer] SPECIALIST re dc plans. If discharged, pt can receive antibiotics during HD As outpt in the dialysis ctr. CAMERON ISIDRO MD Jul 18, 2018 19:07
--- NOTE | 2018-07-18 19:37 | CONS ---
Assessment/Plan Assessment/Plan Hospital Course (Demo Recall) # sepsis, heme/onc - sepsis due to bacteremia - bacteremia due to MSSA - s/p removal of permacath on R chest wall on 07/14/2018 - s/p R femoral HD catheter placement 07/14/2018 - thrombosed left AV fistula per arterial US. 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 The culture of the tip of the removed catheter, blood cultures and swab of the catheter site were negative. Pt completed an empiric course of renally dosed pip/tazo (06/13/2018-06/18/2018) - h/o placement of a permacath on R chest wall on 06/23/2018 - h/o creation of AVF in [facility] [place] in [place], thrombosed L brachiocephalic AV fistula, 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 Last used for HD in 04/2018 - h/o 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 Pt took renally dosed valACV (07/15/18 - 07/17/18) - adverse reaction to vancomycin (pruritus) - adverse reaction to linezolid (thrombocytopenia). Linezolid was discontinued on 06/17/2018 (took linezolid 06/12/2018-06/17/2018) Recommendations: - please order transthoracic echo to r/o valvular vegetation - continue renally dosed cefazolin (07/15/2018-) for bacteremia due to MSSA - duration to be determined based on the result of transthoracic echo management d/w Pt and her RN Consultation Date/Type/Reason Admit Date/Time Jul 13, 2018 at 05:59 Initial Consult Date 07/14/18 Requesting Provider: LUANNE WALTER MD Date/Time of Note DATE: 07/18/18 TIME: 19:33 24 HR Interval Summary Constitutional: no complaints Detailed Summary Eyes: no complaints ENT: no complaints Respiratory: no complaints Cardiovascular: no complaints, other ("a little" pain at AVF site of LUE upon arm flexion) Gastrointestinal: no complaints Genitourinary: other (on HD) Musculoskeletal: no complaints; No restricted range of motion Neurologic: no complaints Exam/Review of Systems Exam Vitals Vital Signs Date Temp Pulse Resp B/P (MAP) Pulse Ox O2 O2 Flow FiO2 Time Delivery Rate 07/18/18 86 16 87/62 (70) 100 Room Air 16:00 07/18/18 97.9 14:04 Intake and Output 07/17/18 07/17/18 07/18/18 1414:59 22:59 06:59 IntakeIntake Total 800 ml 170 ml BalanceBalance 800 ml 170 ml Constitutional: alert, oriented, well developed Psych: no complaints, nl mood/affect Head: normocephalic, other (alopecia) Eyes: nl conjunctiva, nl lids ENMT: nl external ears & nose, nl nasal mucosa & septum Neck: other (not swollen) Respiratory: normal air movement Cardiovascular: other (AVF is thrombosed); No edema Gastrointestinal: soft; No distended Genitourinary - Female: other (+perez in R groin) Musculoskeletal: No swelling Extremities: No edema 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: [employer]EF[employer]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 intact, nl mental status, nl speech Skin: rash or lesions (former catheter site on R chest wall is slightly fluctuant and is mildly TTP) Results Result Diagram: 07/17/18 1359 07/17/18 1359 Medications Medication Current Medications Acetaminophen (Tylenol Tab) 650 mg Q4H PRN PO MILD PAIN(1-3)OR ELEVATED TEMP Last administered on 07/14/18at 02:53; Admin Dose 650 MG; Start 07/13/18 at 09:00 Ondansetron HCl (Zofran Inj) 4 mg Q6H PRN IV NAUSEA AND/OR VOMITING Last administered on 07/17/18 19:17; Admin Dose 4 MG; Start 07/13/18 at 09:00 Acetaminophen/ Hydrocodone Bitart ([place] (5/325)) 1 tab Q4H PRN PO MODERATE PAIN LEVEL 4-6 Last administered on 07/13/18 16:21; Admin Dose 1 TAB; Start 07/13/18 at 09:00 Sevelamer Carbonate (Renvela) 2,400 mg WITH MEALS PO Last administered on 07/17/18 17:28; Admin Dose 2,400 MG; Start 07/13/18 at 11:40 Multivit/Ca Carb/ B Cmplx/FA/Prenat (Aminah-Tanisha) 1 tab DAILY PO Last administered on 07/16/18 08:16; Admin Dose 1 TAB; Start 07/13/18 at 09:00 Lidocaine (Lidoderm) 1 patch DAILY TD Last administered on 07/15/18 08:29; Admin Dose 1 PATCH; Start 07/13/18 at 21:30 Bromocriptine Mesylate (Parlodel) 2.5 mg QHS PO Last administered on 07/17/18 20:17; Admin Dose 2.5 MG; Start 07/14/18 at 21:00 Naproxen (Naprosyn) 500 mg BID PRN PO PAIN AND/OR INFLAMMATION; Start 07/13/18 at 23:30 Pantoprazole (Protonix Tab) 40 mg DAILY@06 PO Last administered on 07/18/18 06:04; Admin Dose 40 MG; Start 07/14/18 at 06:00 Zolpidem Tartrate (Ambien) 10 mg QHS PRN PO INSOMNIA; Start 07/13/18 at 23:30 Diphenhydramine HCl (Benadryl) 50 mg Q6H PRN IV itchiness Last administered on 07/18/18 13:41; Admin Dose 50 MG; Start 07/14/18 at 03:00 Heparin Sodium (Porcine) (Heparin (1000 Units/ml)) 3,000 unit AFTER DIALYSIS CATHETER Last administered on 07/18/18 14:52; Admin Dose 3,000 UNIT; Start 07/14/18 at 16:30 Calcitriol (Rocaltrol) 0.25 mcg DAILY PO Last administered on 07/17/18 09:00; Admin Dose 0.25 MCG; Start 07/15/18 at 09:00 Cefazolin Sodium 50 ml @ 100 mls/hr Q24H IVPB Last administered on 07/17/18 20:17; Admin Dose 100 MLS/HR; Start 07/15/18 at 21:00 Epoetin Maxwell (Epogen (Esrd)) 8,000 units TuThSa@17 SC Last administered on 07/16/18 17:23; Admin Dose 8,000 UNITS; Start 07/16/18 at 17:00 Midodrine (Proamatine) 10 mg TID@,13,17 PO Last administered on 07/18/18 09:17; Admin Dose 10 MG; Start 07/16/18 at 13:00 Morphine Sulfate (morphine) 4 mg Q2H PRN IV SEVERE PAIN LEVEL 7-10 Last administered on 07/18/18 09:47; Admin Dose 4 MG; Start 07/17/18 at 09:00 GINGER HARDIN M.D. Jul 18, 2018 19:37
[2018-07-18] MEDS: BROMOCRIPTINE 2.5 MG TAB PO SCH (20:52)
[2018-07-18] MEDS: CEFAZOLIN 1 GM/50 ML (PMX) 50 ML IVPB SCH (20:52)
[2018-07-19] VITALS (11 sets, daily range): BP systolic 83–121; BP diastolic 48–69; PULSE 68–94; RESP 17–28
[2018-07-19] MEDS: DIPHENHYDRAMINE 50 MG INJ IV PRN ×4 (03:04→22:07)
[2018-07-19] MEDS: morphine 4 MG/ML VIAL IV PRN ×7 (03:04→20:24)
[2018-07-19] MEDS: PANTOPRAZOLE (EC) 40 MG TAB PO SCH (04:59)
[2018-07-19] MEDS: SEVELAMER CARBONATE 800 MG TABLET PO SCH ×3 (07:50→18:34)
[2018-07-19] MEDS: MIDODRINE 5 MG TAB PO SCH ×3 (09:00→18:35)
[2018-07-19] MEDS: CALCITRIOL 0.25 MCG CAP PO SCH (09:00)
[2018-07-19] MEDS: MULTIVIT/CA CARB/B CMPLX/FA TAB PO SCH (09:00)
[2018-07-19] MEDS: LIDOCAINE 5% PATCH TD SCH (09:02)
[2018-07-19] MEDS ORDERED: LIDOCAINE 1% (MDV) 20 ML INJ ONE (13:16)
[2018-07-19] MEDS ORDERED: HEPARIN 1000 UNITS/ML 10 ML INJ ONE (13:16)
--- NOTE | 2018-07-19 14:03 | PREAC ---
Date/Time of Note Date/Time of Note DATE: 07/19/18 TIME: 14:02 Anesthesia Eval and Record Evaluation Time Pre-Procedure Interview DATE: 07/19/18 TIME: 14:02 Age 32 Sex female NPO: 8 hrs Preoperative diagnosis Renal failure Planned procedure RONNA CATH PLACEMENT Past Medical History Past Medical History: Includes Cardio: HTN Endo: Hypothyroid Renal: ESRD on dialysis Surgery & Anesthesia Issues No known issue Meds Anticoagulation: No Beta Chichi within 24 hr: No Reason Beta Chichi not given: Pt. not on B-Chichi Active Scripts Pantoprazole* (Pantoprazole*) 40 Mg Tablet.dr, 40 MG PO DAILY@06 for 30 Days Prov:EDILMA CASIANO 06/25/18 Bromocriptine Mesylate* (Parlodel*) 2.5 Mg Tablet, 2.5 MG PO QHS for 30 Days, TAB Prov:EDILMA CASIANO 06/25/18 Midodrine* (Midodrine*) 5 Mg Tablet, 5 MG PO TID@,13,17 for 30 Days, TAB Prov:EDILMA CASIANO 06/25/18 Naproxen* (Naprosyn*) 500 Mg Tablet, 500 MG PO BID PRN for PAIN AND/OR INFLAMMATION, #30 TAB Prov:LIANA DAWSON MD 05/14/18 Reported Medications Sevelamer Hcl* (Renagel*) 800 Mg Tablet, 800 MG PO WITH MEALS, TAB 05/14/18 Zolpidem Tartrate* (Zolpidem Tartrate*) 10 Mg Tablet, 10 MG PO QHS PRN for INSOMNIA, #30 TAB 07/06/17 Current Medications Acetaminophen (Tylenol Tab) 650 mg Q4H PRN PO MILD PAIN(1-3)OR ELEVATED TEMP Last administered on 07/14/18at 02:53; Admin Dose 650 MG; Start 07/13/18 at 09:00 Ondansetron HCl (Zofran Inj) 4 mg Q6H PRN IV NAUSEA AND/OR VOMITING Last administered on 07/17/18at 19:17; Admin Dose 4 MG; Start 07/13/18 at 09:00 Acetaminophen/ Hydrocodone Bitart ([place] (5/325)) 1 tab Q4H PRN PO MODERATE PAIN LEVEL 4-6 Last administered on 07/13/18at 16:21; Admin Dose 1 TAB; Start 07/13/18 at 09:00 Sevelamer Carbonate (Renvela) 2,400 mg WITH MEALS PO Last administered on 06/25 17:28; Admin Dose 2,400 MG; Start 07/13/18 at 11:40 Multivit/Ca Carb/ B Cmplx/FA/Prenat (Aminah-Tanisha) 1 tab DAILY PO Last administered on 07/16/18 08:16; Admin Dose 1 TAB; Start 07/13/18 at 09:00 Lidocaine (Lidoderm) 1 patch DAILY TD Last administered on 07/19/18 09:02; Admin Dose 1 PATCH; Start 07/13/18 at 21:30 Bromocriptine Mesylate (Parlodel) 2.5 mg QHS PO Last administered on 07/18/18 20:52; Admin Dose 2.5 MG; Start 07/14/18 at 21:00 Naproxen (Naprosyn) 500 mg BID PRN PO PAIN AND/OR INFLAMMATION; Start 07/13/18 at 23:30 Pantoprazole (Protonix Tab) 40 mg DAILY@06 PO Last administered on 07/18/18 06:04; Admin Dose 40 MG; Start 07/14/18 at 06:00 Zolpidem Tartrate (Ambien) 10 mg QHS PRN PO INSOMNIA; Start 07/13/18 at 23:30 Diphenhydramine HCl (Benadryl) 50 mg Q6H PRN IV itchiness Last administered on 07/19/18 09:01; Admin Dose 50 MG; Start 07/14/18 at 03:00 Heparin Sodium (Porcine) (Heparin (1000 Units/ml)) 3,000 unit AFTER DIALYSIS CATHETER Last administered on 07/18/18 14:52; Admin Dose 3,000 UNIT; Start 07/14/18 at 16:30 Calcitriol (Rocaltrol) 0.25 mcg DAILY PO Last administered on 07/17/18 09:00; Admin Dose 0.25 MCG; Start 07/15/18 at 09:00 Cefazolin Sodium 50 ml @ 100 mls/hr Q24H IVPB Last administered on 07/18/18 20:52; Admin Dose 100 MLS/HR; Start 07/15/18 at 21:00 Epoetin Maxwell (Epogen (Esrd)) 8,000 units TuThSa@17 SC Last administered on 07/16/18at 17:23; Admin Dose 8,000 UNITS; Start 07/16/18 at 17:00 Midodrine (Proamatine) 10 mg TID@09,13,17 PO Last administered on 07/18/18at 09:17; Admin Dose 10 MG; Start 07/16/18 at 13:00 Morphine Sulfate (morphine) 4 mg Q2H PRN IV SEVERE PAIN LEVEL 7-10 Last administered on 07/19/18at 12:04; Admin Dose 4 MG; Start 07/17/18 at 09:00 Meds reviewed: Yes Allergies Coded Allergies: vancomycin (Unverified Allergy, Severe, 07/13/18) pruritus pineapple (Unverified Allergy, Mild, 07/13/18) watermelon (Unverified Allergy, Unknown, 07/13/18) peach (Unverified Adverse Reaction, Unknown, HEADACHE, 07/13/18) Allergies Reviewed: Yes Labs/Studies Labs Reviewed: Reviewed by anesthesiologist Result Diagram: 07/19/18 0455 07/19/18 0455 Laboratory Tests 07/19/18 04:55 test: N/A Studies: ECG (SR) Pre-procedure Exam Last vitals Vital Signs Date Temp Pulse Resp B/P (MAP) Pulse Ox O2 O2 Flow FiO2 Time Delivery Rate 07/19/18 97.8 85 18 100/48 95 Room Air 08:16 (65) Airway: Adequate mouth opening Mallampati: Mallampati II Teeth: Normal Lung: Normal Heart: Normal ASA Physical Status ASA physical status: 3 Emergency: None Planned Anesthetic General/MAC: MAC Pre-operative Attestations Prior to commencing anesthesia and surgery, the patient was re-evaluated, there was verification of: *The patient's identity *The results of appropriate recent lab work and preoperative vital signs *The above evaluation not changing prior to induction *Anesthetic plan, risk benefits, alternative and complications discussed with patient/family; questions answered; patient/family understands, accepts and wishes to proceed. BRENDA MAYA Jul 19, 2018 14:03
--- NOTE | 2018-07-19 14:04 | PN ---
Date/Time of Note Date/Time of Note DATE: 07/19/18 TIME: 14:00 Assessment/Plan VTE Prophylaxis Risk score (from Ns)>0 risk: 7 SCD applied (from Ns): Yes Pharmacological prophylaxis: NA/contraindicated Pharm contraindication: surgical contra Lines/Catheters IV Catheter Type (from Nrsg): Mid Line Urinary Cath still in place: No Assessment/Plan Hospital Course Permacath placement was rescheduled for today, will obtain TTE to rule out valvular vegetation per ID recommendations, continue current antibiotics. Assessment/Plan -Line sepsis, continue abx per ID. Dr Herrera is following in infection disease consultation. Right chest Perez catheter d/madisyn. -Hemodialysis dependent end-stage renal disease. is following in nephrology consultation. -History of hyperparathyroidism, status post subtotal parathyroidectomy of the right superior and inferior glands, partial left inferior gland in June 2016. Status post left upper and lower parathyroidectomy and partial left thyroid lobectomy in [place] [address] Morales, ENT. Dr. De La Fuente is asked to see pt in endocrinology consultation. -Left upper extremity AV fistula nonfunctioning, Dr. Francisco is following in vascular surgery consultation. Further recommendations based on clinical course. Plan of care discussed with Dr. Turner. Result Diagram: 07/19/18 0455 07/19/18 0455 Results 24hrs Laboratory Tests Test 07/19/18 04:55 White Blood Count 4.0 #L Red Blood Count 2.67 L Hemoglobin 8.7 L Hematocrit 27.4 L Mean Corpuscular Volume 102.6 H Mean Corpuscular Hemoglobin 32.6 Mean Corpuscular Hemoglobin Concent 31.8 L Red Cell Distribution Width 14.4 Platelet Count 181 Mean Platelet Volume 11.0 H Immature Granulocytes % 0.800 H Neutrophils % 49.3 Lymphocytes % 30.3 Monocytes % 10.8 Eosinophils % 8.0 H Basophils % 0.8 Nucleated Red Blood Cells % 0.0 Immature Granulocytes # 0.030 Neutrophils # 2.0 Lymphocytes # 1.2 Monocytes # 0.4 Eosinophils # 0.3 Basophils # 0.0 Nucleated Red Blood Cells # 0.0 Sodium Level 139 Potassium Level 4.9 Chloride Level 98 Carbon Dioxide Level 29 Anion Gap 12 Blood Urea Nitrogen 31 #H Creatinine 6.13 #H Est Glomerular Filtrat Rate mL/min 8 L Glucose Level 84 Calcium Level 8.3 L Exam/Review of Systems Exam Vitals Vital Signs Date Temp Pulse Resp B/P (MAP) Pulse Ox O2 O2 Flow FiO2 Time Delivery Rate 07/19/18 97.8 85 18 100/48 95 Room Air 08:16 (65) Intake and Output 07/18/18 07/18/18 07/19/18 1515:00 23:00 07:00 IntakeIntake Total 390 ml OutputOutput Total 2300 ml BalanceBalance -1910 ml Results Results 24hrs Laboratory Tests Test 07/19/18 04:55 White Blood Count 4.0 #L Red Blood Count 2.67 L Hemoglobin 8.7 L Hematocrit 27.4 L Mean Corpuscular Volume 102.6 H Mean Corpuscular Hemoglobin 32.6 Mean Corpuscular Hemoglobin Concent 31.8 L Red Cell Distribution Width 14.4 Platelet Count 181 Mean Platelet Volume 11.0 H Immature Granulocytes % 0.800 H Neutrophils % 49.3 Lymphocytes % 30.3 Monocytes % 10.8 Eosinophils % 8.0 H Basophils % 0.8 Nucleated Red Blood Cells % 0.0 Immature Granulocytes # 0.030 Neutrophils # 2.0 Lymphocytes # 1.2 Monocytes # 0.4 Eosinophils # 0.3 Basophils # 0.0 Nucleated Red Blood Cells # 0.0 Sodium Level 139 Potassium Level 4.9 Chloride Level 98 Carbon Dioxide Level 29 Anion Gap 12 Blood Urea Nitrogen 31 #H Creatinine 6.13 #H Est Glomerular Filtrat Rate mL/min 8 L Glucose Level 84 Calcium Level 8.3 L Medications Medication Current Medications Acetaminophen (Tylenol Tab) 650 mg Q4H PRN PO MILD PAIN(1-3)OR ELEVATED TEMP Last administered on 07/14/18at 02:53; Admin Dose 650 MG; Start 07/13/18 at 09:00 Ondansetron HCl (Zofran Inj) 4 mg Q6H PRN IV NAUSEA AND/OR VOMITING Last admini stered on 07/17/18 19:17; Admin Dose 4 MG; Start 07/13/18 at 09:00 Acetaminophen/ Hydrocodone Bitart ([place] (5/325)) 1 tab Q4H PRN PO MODERATE PAIN LEVEL 4-6 Last administered on 07/13/18at 16:21; Admin Dose 1 TAB; Start 07/13/18 at 09:00 Sevelamer Carbonate (Renvela) 2,400 mg WITH MEALS PO Last administered on 07/17/18 17:28; Admin Dose 2,400 MG; Start 07/13/18 at 11:40 Multivit/Ca Carb/ B Cmplx/FA/Prenat (Aminah-Tanisha) 1 tab DAILY PO Last administered on 07/16/18 08:16; Admin Dose 1 TAB; Start 07/13/18 at 09:00 Lidocaine (Lidoderm) 1 patch DAILY TD Last administered on 07/19/18 09:02; A dmin Dose 1 PATCH; Start 07/13/18 at 21:30 Bromocriptine Mesylate (Parlodel) 2.5 mg QHS PO Last administered on 07/18/18 20:52; Admin Dose 2.5 MG; Start 07/14/18 at 21:00 Naproxen (Naprosyn) 500 mg BID PRN PO PAIN AND/OR INFLAMMATION; Start 07/13/18 at 23:30 Pantoprazole (Protonix Tab) 40 mg DAILY@06 PO Last administered on 07/18/18 06:04; Admin Dose 40 MG; Start 07/14/18 at 06:00 Zolpidem Tartrate (Ambien) 10 mg QHS PRN PO INSOMNIA; Start 07/13/18 at 23:30 Diphenhydramine HCl (Benadryl) 50 mg Q6H PRN IV itchiness Last administered on 07/19/18 09:01; Admin Dose 50 MG; Start 07/14/18 at 03:00 Heparin Sodium (Porcine) (Heparin (1000 Units/ml)) 3,000 unit AFTER DIALYSIS CATHETER Last administered on 07/18/18 14:52; Admin Dose 3,000 UNIT; Start 07/14/18 at 16:30 Calcitriol (Rocaltrol) 0.25 mcg DAILY PO Last administered on 07/17/18 09:00; Admin Dose 0.25 MCG; Start 07/15/18 at 09:00 Cefazolin Sodium 50 ml @ 100 mls/hr Q24H IVPB Last administered on 07/18/18 20:52; Admin Dose 100 MLS/HR; Start 07/15/18 at 21:00 Epoetin Maxwell (Epogen (Esrd)) 8,000 units TuThSa@17 SC Last administered on 07/16/18 17:23; Admin Dose 8,000 UNITS; Start 07/16/18 at 17:00 Midodrine (Proamatine) 10 mg TID@,,17 PO Last administered on 07/18/18 09:17; Admin Dose 10 MG; Start 07/16/18 at 13:00 Morphine Sulfate (morphine) 4 mg Q2H PRN IV SEVERE PAIN LEVEL 7-10 Last administered on 07/19/18 12:04; Admin Dose 4 MG; Start 07/17/18 at 09:00 ERICK ROBERTSON Jul 19, 2018 14:04
[2018-07-19] MEDS ORDERED: FENTAnyl 50 MCG/ML VIAL ONE (14:15)
[2018-07-19] MEDS ORDERED: PROPOFOL 0 ML ONE (14:15)
[2018-07-19] MEDS ORDERED: GLYCOPYRROLATE 0.4 MG INJ ONE (14:16)
[2018-07-19] MEDS ORDERED: MIDAZOLAM 1 MG/ML 2 ML INJ ONE (14:16)
[2018-07-19] MEDS ORDERED: CEFAZOLIN 1 GM/50 ML (PMX) 50 ML IVPB ONE (14:20)
--- NOTE | 2018-07-19 14:57 | HPN ---
Date/Time of Note Date/Time of Note DATE: 07/19/18 TIME: 14:57 Interval H&P Admission Note Pt. seen H&P reviewed: No system changes SARANYA ALBERTO MD Jul 19, 2018 14:57
--- NOTE | 2018-07-19 15:05 | PAC ---
Date/Time of Note Date/Time of Note DATE: 07/19/18 TIME: 15:05 Post-Anesthesia Notes Post-Anesthesia Note Last documented vital signs Vital Signs Date Temp Pulse Resp B/P (MAP) Pulse Ox O2 O2 Flow FiO2 Time Delivery Rate 07/19/18 97.8 85 18 100/48 95 Room Air 08:16 (65) Activity: WNL Respiratory function: WNL Cardiovascular function: WNL Mental status: Baseline Pain reasonably controlled: Yes Hydration appropriate: Yes Nausea/Vomiting absent: Yes BRENDA MAYA Jul 19, 2018 15:05
[2018-07-19] MEDS ORDERED: FENTAnyl 50 MCG/ML VIAL IV PRN (15:30)
--- NOTE | 2018-07-19 16:16 | CONS ---
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 Last used for HD in 04/2018. 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 The culture of the tip of the removed catheter, blood cultures and swab of the catheter site were negative. Pt completed an empiric course of renally dosed pip/tazo (06/13/2018-06/18/2018) - h/o placement of a permacath on R chest wall on 06/23/2018 - h/o creation of AVF in [facility] in 2016 - h/o 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 Pt took renally dosed valACV (07/15/2018-07/17/2018) - adverse reaction to vancomycin (pruritus) - adverse reaction to linezolid (thrombocytopenia). Linezolid was discontinued (06/12/2018-06/17/2018) recommendations: - will review the result of transthoracic echo to r/o valvular vegetation - continue renally dosed cefazolin (07/15/2018-) for bacteremia due to MSSA - if transthoracic echo does not show endocarditis, I recommend renally dosed cefazolin through 07/29/2018 management d/w Pt Consultation Date/Type/Reason Admit Date/Time Jul 13, 2018 at 05:59 Initial Consult Date 07/14/18 Type of Consult ID Reason for Consultation bacteremia Requesting Provider: LUANNE WALTER MD Date/Time of Note DATE: 07/19/18 TIME: 16:11 24 HR Interval Summary Constitutional: other (in pain) Detailed Summary Eyes: no complaints ENT: no complaints Respiratory: no complaints Cardiovascular: no complaints Gastrointestinal: no complaints Genitourinary: other (pain of R groin after exchange of her HD catheter) Musculoskeletal: no complaints Skin: skin lesions (R chest wall, dried scabs) Neurologic: No headache Exam/Review of Systems Exam Vitals Vital Signs Date Temp Pulse Resp B/P (MAP) Pulse Ox O2 O2 Flow FiO2 Time Delivery Rate 07/19/18 80 28 96/60 (72) 96 Room Air 15:30 07/19/18 98.6 15:10 Intake and Output 07/18/18 07/18/18 07/19/18 1414:59 22:59 06:59 IntakeIntake Total 390 ml OutputOutput Total 2300 ml BalanceBalance -1910 ml Constitutional: alert, frail Psych: no complaints, nl mood/affect Head: other (alopecia) Eyes: nl conjunctiva, nl lids ENMT: nl external ears & nose, nl nasal mucosa & septum Neck: other (not swollen) Respiratory: clear to auscultation, normal air movement Cardiovascular: regular rate and rhythm, nl pulses Gastrointestinal: soft, non-tender; No distended, No tender Genitourinary - Female: other (R groin with permacath) Musculoskeletal: nl extremities to inspection Extremities: No edema 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: BOND UNDERWRITER II-XII intact, nl mental status Skin: rash or lesions (slightly indurated R chest wall with a 1 cm x 1 cm lesion where an HD catheter used to be) Results Result Diagram: 07/19/185 07/19/185 Results 24hrs Laboratory Tests Test 07/19/18 04:55 White Blood Count 4.0 #L Red Blood Count 2.67 L Hemoglobin 8.7 L Hematocrit 27.4 L Mean Corpuscular Volume 102.6 H Mean Corpuscular Hemoglobin 32.6 Mean Corpuscular Hemoglobin Concent 31.8 L Red Cell Distribution Width 14.4 Platelet Count 181 Mean Platelet Volume 11.0 H Immature Granulocytes % 0.800 H Neutrophils % 49.3 Lymphocytes % 30.3 Monocytes % 10.8 Eosinophils % 8.0 H Basophils % 0.8 Nucleated Red Blood Cells % 0.0 Immature Granulocytes # 0.030 Neutrophils # 2.0 Lymphocytes # 1.2 Monocytes # 0.4 Eosinophils # 0.3 Basophils # 0.0 Nucleated Red Blood Cells # 0.0 Sodium Level 139 Potassium Level 4.9 Chloride Level 98 Carbon Dioxide Level 29 Anion Gap 12 Blood Urea Nitrogen 31 #H Creatinine 6.13 #H Est Glomerular Filtrat Rate mL/min 8 L Glucose Level 84 Calcium Level 8.3 L Medications Medication Current Medications Acetaminophen (Tylenol Tab) 650 mg Q4H PRN PO MILD PAIN(1-3)OR ELEVATED TEMP Last administered on 07/14/18 02:53; Admin Dose 650 MG; Start 07/13/18 at 09:00 Ondansetron HCl (Zofran Inj) 4 mg Q6H PRN IV NAUSEA AND/OR VOMITING Last administered on 07/17/18 19:17; Admin Dose 4 MG; Start 07/13/18 at 09:00 Acetaminophen/ Hydrocodone Bitart ([place] (5/325)) 1 tab Q4H PRN PO MODERATE PAIN LEVEL 4-6 Last administered on 07/13/18 16:21; Admin Dose 1 TAB; Start 07/13/18 at 09:00 Sevelamer Carbonate (Renvela) 2,400 mg WITH MEALS PO Last administered on 07/17/18 17:28; Admin Dose 2,400 MG; Start 07/13/18 at 11:40 Multivit/Ca Carb/ B Cmplx/FA/Prenat (Aminah-Tanisha) 1 tab DAILY PO Last administered on 07/16/18 08:16; Admin Dose 1 TAB; Start 07/13/18 at 09:00 Lidocaine (Lidoderm) 1 patch DAILY TD Last administered on 07/19/18 09:02; Admin Dose 1 PATCH; Start 07/13/18 at 21:30 Bromocriptine Mesylate (Parlodel) 2.5 mg QHS PO Last administered on 07/18/18 20:52; Admin Dose 2.5 MG; Start 07/14/18 at 21:00 Naproxen (Naprosyn) 500 mg BID PRN PO PAIN AND/OR INFLAMMATION; Start 07/13/18 at 23:30 Pantoprazole (Protonix Tab) 40 mg DAILY@06 PO Last administered on 07/18/18 06:04; Admin Dose 40 MG; Start 07/14/18 at 06:00 Zolpidem Tartrate (Ambien) 10 mg QHS PRN PO INSOMNIA; Start 07/13/18 at 23:30 Diphenhydramine HCl (Benadryl) 50 mg Q6H PRN IV itchiness Last administered on 07/19/18 15:51; Admin Dose 50 MG; Start 07/14/18 at 03:00 Heparin Sodium (Porcine) (Heparin (1000 Units/ml)) 3,000 unit AFTER DIALYSIS CATHETER Last administered on 07/18/18 14:52; Admin Dose 3,000 UNIT; Start 07/14/18 at 16:30 Calcitriol (Rocaltrol) 0.25 mcg DAILY PO Last administered on 07/17/18 09:00; Admin Dose 0.25 MCG; Start 07/15/18 at 09:00 Cefazolin Sodium 50 ml @ 100 mls/hr Q24H IVPB Last administered on 07/18/18 20:52; Admin Dose 100 MLS/HR; Start 07/15/18 at 21:00 Epoetin Maxwell (Epogen (Esrd)) 8,000 units TuThSa@17 SC Last administered on 07/16/18 17:23; Admin Dose 8,000 UNITS; Start 07/16/18 at 17:00 Midodrine (Proamatine) 10 mg TID@,,17 PO Last administered on 07/18/18 09:17; Admin Dose 10 MG; Start 07/16/18 at 13:00 Morphine Sulfate (morphine) 4 mg Q2H PRN IV SEVERE PAIN LEVEL 7-10 Last administered on 07/19/18 15:52; Admin Dose 4 MG; Start 07/17/18 at 09:00 Fentanyl (Sublimaze) 25 mcg PACU ORDER PRN IV MILD PAIN 1-3; Start 07/19/18 at 15:30; Stop 3/26/19 at 19:00 GINGER HARDIN M.D. Jul 19, 2018 16:15
--- NOTE | 2018-07-19 16:39 | QN ---
Documentation Comment PT DID NOT GET PERMACATH YESTERDAY & IS SCHEDULED TO GET IT TODAY SPOKE TO VASCULAR SURGEON WHO ADV ME THAT PT HAS NO MORE AV ACCESS FOR AVF & WILL GET GROIN CATHETER WHICH IS NOT OPTIMAL SITUATION UNDER THE CIRCUMSTANCES, I'D SPEAK TO HER RE & HER VOICER, DR TOM STRONG CONSIDERING PT FOR PD CATH PLACEMENT. HD ORDERS WRITTEN FOR CAMERON RESENDIZ MD Jul 19, 2018 16:39
[2018-07-19] MEDS: EPOETIN 4000 UNITS/1 ML INJ (ESRD) SC SCH (18:36)
[2018-07-19] MEDS: CEFAZOLIN 1 GM/50 ML (PMX) 50 ML IVPB SCH (20:24)
[2018-07-19] MEDS: BROMOCRIPTINE 2.5 MG TAB PO SCH (20:24)
[2018-07-20] VITALS (18 sets, daily range): BP systolic 76–148; BP diastolic 5–106; PULSE 63–110; RESP 16–18
[2018-07-20] MEDS: morphine 4 MG/ML VIAL IV PRN ×7 (01:18→22:26)
[2018-07-20] MEDS: DIPHENHYDRAMINE 50 MG INJ IV PRN ×4 (04:08→22:26)
[2018-07-20] MEDS: PANTOPRAZOLE (EC) 40 MG TAB PO SCH (06:31)
[2018-07-20] MEDS: CALCITRIOL 0.25 MCG CAP PO SCH (08:46)
[2018-07-20] MEDS: SEVELAMER CARBONATE 800 MG TABLET PO SCH ×4 (08:46→17:55)
[2018-07-20] MEDS: MIDODRINE 5 MG TAB PO SCH ×3 (08:47→17:42)
[2018-07-20] MEDS: MULTIVIT/CA CARB/B CMPLX/FA TAB PO SCH (09:31)
[2018-07-20] MEDS: LIDOCAINE 5% PATCH TD SCH (09:33)
--- NOTE | 2018-07-20 14:17 | PN ---
Date/Time of Note Date/Time of Note DATE: 07/20/18 TIME: 14:10 Assessment/Plan VTE Prophylaxis Risk score (from Ns)>0 risk: 7 SCD applied (from Ns): Yes Pharmacological prophylaxis: heparin Lines/Catheters IV Catheter Type (from Nrsg): Mid Line Central line still needed: Yes Urinary Cath still in place: No Assessment/Plan Hospital Course Pt is s/p Permacath placement, pending HD via New cath, pending TTE to rule out valvular vegetation per ID recommendations. Assessment/Plan -Line sepsis with MSSA bacteremia, continue cefazolin. Dr Leone is following in infection disease consultation. Right chest Perez catheter d/madisyn. -Hemodialysis dependent end-stage renal disease. is following in nephrology consultation. -History of hyperparathyroidism, status post subtotal parathyroidectomy of the right superior and inferior glands, partial left inferior gland in June 2016. Status post left upper and lower parathyroidectomy and partial left thyroid lobectomy in [place] [address] Morales, ENT. Dr. De La Fuente is asked to see pt in endocrinology consultation. -Left upper extremity AV fistula nonfunctioning, Dr. Francisco is following in vascular surgery consultation. Further recommendations based on clinical course. Plan of care discussed with Dr. Turner. Result Diagram: 07/20/188 07/20/188 Results 24hrs Laboratory Tests Test 07/20/18 04:48 White Blood Count 5.4 # Red Blood Count 2.71 L Hemoglobin 8.9 L Hematocrit 28.3 L Mean Corpuscular Volume 104.4 H Mean Corpuscular Hemoglobin 32.8 Mean Corpuscular Hemoglobin Concent 31.4 L Red Cell Distribution Width 14.3 Platelet Count 213 Mean Platelet Volume 10.7 H Immature Granulocytes % 0.700 H Neutrophils % 57.1 Lymphocytes % 23.8 Monocytes % 11.3 H Eosinophils % 6.5 Basophils % 0.6 Nucleated Red Blood Cells % 0.0 Immature Granulocytes # 0.040 H Neutrophils # 3.1 Lymphocytes # 1.3 Monocytes # 0.6 Eosinophils # 0.4 Basophils # 0.0 Nucleated Red Blood Cells # 0.0 Sodium Level 140 Potassium Level 5.5 H Chloride Level 100 Carbon Dioxide Level 24 Anion Gap 16 H Blood Urea Nitrogen 43 #H Creatinine 8.98 #H Est Glomerular Filtrat Rate mL/min 5 L Glucose Level 55 #L Calcium Level 8.2 L Exam/Review of Systems Exam Vitals Vital Signs Date Temp Pulse Resp B/P (MAP) Pulse Ox O2 O2 Flow FiO2 Time Delivery Rate 07/20/18 97.9 78 18 105/58 96 Room Air 08:07 (74) Intake and Output 07/19/18 07/19/18 07/20/18 1515:00 23:00 07:00 IntakeIntake Total 200 ml 250 ml 250 ml BalanceBalance 200 ml 250 ml 250 ml Constitutional: alert, oriented Head: normocephalic Neck: supple Respiratory: clear to auscultation Cardiovascular: nl pulses Gastrointestinal: soft, non-tender Extremities: normal pulses 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: nl mental status Additional Comments R fem Perma cath Results Results 24hrs Laboratory Tests Test 07/20/18 04:48 White Blood Count 5.4 # Red Blood Count 2.71 L Hemoglobin 8.9 L Hematocrit 28.3 L Mean Corpuscular Volume 104.4 H Mean Corpuscular Hemoglobin 32.8 Mean Corpuscular Hemoglobin Concent 31.4 L Red Cell Distribution Width 14.3 Platelet Count 213 Mean Platelet Volume 10.7 H Immature Granulocytes % 0.700 H Neutrophils % 57.1 Lymphocytes % 23.8 Monocytes % 11.3 H Eosinophils % 6.5 Basophils % 0.6 Nucleated Red Blood Cells % 0.0 Immature Granulocytes # 0.040 H Neutrophils # 3.1 Lymphocytes # 1.3 Monocytes # 0.6 Eosinophils # 0.4 Basophils # 0.0 Nucleated Red Blood Cells # 0.0 Sodium Level 140 Potassium Level 5.5 H Chloride Level 100 Carbon Dioxide Level 24 Anion Gap 16 H Blood Urea Nitrogen 43 #H Creatinine 8.98 #H Est Glomerular Filtrat Rate mL/min 5 L Glucose Level 55 #L Calcium Level 8.2 L Medications Medication Current Medications Acetaminophen (Tylenol Tab) 650 mg Q4H PRN PO MILD PAIN(1-3)OR ELEVATED TEMP Last administered on 07/14/18at 02:53; Admin Dose 650 MG; Start 07/13/18 at 09:00 Ondansetron HCl (Zofran Inj) 4 mg Q6H PRN IV NAUSEA AND/OR VOMITING Last administered on 07/17/18at 19:17; Admin Dose 4 MG; Start 07/13/18 at 09:00 Acetaminophen/ Hydrocodone Bitart ([place] (5/325)) 1 tab Q4H PRN PO MODERATE PAIN LEVEL 4-6 Last administered on 07/13/18 16:21; Admin Dose 1 TAB; Start 07/13/18 at 09:00 Sevelamer Carbonate (Renvela) 2,400 mg WITH MEALS PO Last administered on 07/20/18 12:20; Admin Dose 2,400 MG; Start 07/13/18 at 11:40 Multivit/Ca Carb/ B Cmplx/FA/Prenat (Aminah-Tanisha) 1 tab DAILY PO Last administered on 07/20/18 09:31; Admin Dose 1 TAB; Start 07/13/18 at 09:00 Lidocaine (Lidoderm) 1 patch DAILY TD Last administered on 07/20/18 09:33; Admin Dose 1 PATCH; Start 07/13/18 at 21:30 Bromocriptine Mesylate (Parlodel) 2.5 mg QHS PO Last administered on 07/19/18 20:24; Admin Dose 2.5 MG; Start 07/14/18 at 21:00 Naproxen (Naprosyn) 500 mg BID PRN PO PAIN AND/OR INFLAMMATION; Start 07/13/18 at 23:30 Pantoprazole (Protonix Tab) 40 mg DAILY@06 PO Last administered on 07/20/18 06:31; Admin Dose 40 MG; Start 07/14/18 at 06:00 Zolpidem Tartrate (Ambien) 10 mg QHS PRN PO INSOMNIA; Start 07/13/18 at 23:30 Diphenhydramine HCl (Benadryl) 50 mg Q6H PRN IV itchiness Last administered on 07/20/18 10:08; Admin Dose 50 MG; Start 07/14/18 at 03:00 Heparin Sodium (Porcine) (Heparin (1000 Units/ml)) 3,000 unit AFTER DIALYSIS CATHETER Last administered on 07/18/18 14:52; Admin Dose 3,000 UNIT; Start 07/14/18 at 16:30 Calcitriol (Rocaltrol) 0.25 mcg DAILY PO Last administered on 07/20/18 08:46; Admin Dose 0.25 MCG; Start 07/15/18 at 09:00 Cefazolin Sodium 50 ml @ 100 mls/hr Q24H IVPB Last administered on 07/19/18 20:24; Admin Dose 100 MLS/HR; Start 07/15/18 at 21:00 Epoetin Maxwell (Epogen (Esrd)) 8,000 units TuThSa@17 SC Last administered on 07/19/18 18:36; Admin Dose 8,000 UNITS; Start 07/16/18 at 17:00 Midodrine (Proamatine) 10 mg TID@,13,17 PO Last administered on 07/20/18 12:37; Admin Dose 10 MG; Start 07/16/18 at 13:00 Morphine Sulfate (morphine) 4 mg Q2H PRN IV SEVERE PAIN LEVEL 7-10 Last administered on 07/20/18 08:48; Admin Dose 4 MG; Start 07/17/18 at 09:00 ERICK ROBERTSON Jul 20, 2018 14:17
--- NOTE | 2018-07-20 14:32 | QN ---
Documentation Comment The pt is feeling better tho c/o pain at the new cath site rt groin. BP has been stable. Hbg has improved. Scheduled for hd today. She's not interested in PD, even though she has no further site for access if this cath stops working. Pt is ok for discharge. Will f/u at the dialysis ctr by Dr Jones who will be notified re her status. CAMERON ISIDRO MD Jul 20, 2018 14:28
--- NOTE | 2018-07-20 14:52 | CONS ---
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 Last used for HD in 04/2018. 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 The culture of the tip of the removed catheter, blood cultures and swab of the catheter site were negative. Pt completed an empiric course of renally dosed pip/tazo (-06/18/2018) - h/o placement of a permacath on R chest wall on 06/23/2018 - h/o creation of AVF in [facility] in 2016 - h/o 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 Pt took renally dosed valACV (07/15/2018-07/17/2018) - adverse reaction to vancomycin (pruritus) - adverse reaction to linezolid (thrombocytopenia). Linezolid was discontinued (06/12/2018-06/17/2018) recommendations: - will review the result of transthoracic echo to r/o valvular vegetation - will order soft tissue CHRISTEL of R groin to r/o hematoma - continue renally dosed cefazolin (07/15/2018-) for bacteremia due to MSSA - if transthoracic echo does not show endocarditis, I recommend renally dosed cefazolin through 07/29/2018 management d/w Pt, her RN Consultation Date/Type/Reason Admit Date/Time Jul 13, 2018 at 05:59 Initial Consult Date 07/14/18 Type of Consult ID Requesting Provider: LAUNNE WALTER MD Date/Time of Note DATE: 07/20/18 TIME: 14:46 24 HR Interval Summary Constitutional: no complaints Detailed Summary Eyes: no complaints ENT: no complaints Respiratory: no complaints Cardiovascular: no complaints Gastrointestinal: no complaints Genitourinary: other (pain in R groin) Musculoskeletal: no complaints Skin: No pruritis Neurologic: no complaints Exam/Review of Systems Exam Vitals Vital Signs Date Temp Pulse Resp B/P (MAP) Pulse Ox O2 O2 Flow FiO2 Time Delivery Rate 07/20/18 97.9 78 18 105/58 96 Room Air 08:07 (74) Intake and Output 07/19/18 07/19/18 07/20/18 1515:00 23:00 07:00 IntakeIntake Total 200 ml 250 ml 250 ml BalanceBalance 200 ml 250 ml 250 ml Constitutional: alert, well developed Psych: no complaints, nl mood/affect Head: normocephalic, atraumatic Eyes: nl conjunctiva, nl lids ENMT: nl external ears & nose, nl nasal mucosa & septum, mucosa pink and moist Neck: non-tender Respiratory: other (normal resp effort) Cardiovascular: other (AVF in LUE, no thrill, non-TTP) Gastrointestinal: other (+HD cath in R groin, the area is non-indurated but sensitive to touch in general); No distended Musculoskeletal: nl extremities to inspection Extremities: other (+AVF in LUE, no thrill, non-TTP); No edema 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: SCHEDULING COORDINATOR II-XII intact, nl mental status, nl speech Skin: nl turgor; No ecchymosis Results Result Diagram: 07/20/188 07/20/188 Results 24hrs Laboratory Tests Test 07/20/18 04:48 White Blood Count 5.4 # Red Blood Count 2.71 L Hemoglobin 8.9 L Hematocrit 28.3 L Mean Corpuscular Volume 104.4 H Mean Corpuscular Hemoglobin 32.8 Mean Corpuscular Hemoglobin Concent 31.4 L Red Cell Distribution Width 14.3 Platelet Count 213 Mean Platelet Volume 10.7 H Immature Granulocytes % 0.700 H Neutrophils % 57.1 Lymphocytes % 23.8 Monocytes % 11.3 H Eosinophils % 6.5 Basophils % 0.6 Nucleated Red Blood Cells % 0.0 Immature Granulocytes # 0.040 H Neutrophils # 3.1 Lymphocytes # 1.3 Monocytes # 0.6 Eosinophils # 0.4 Basophils # 0.0 Nucleated Red Blood Cells # 0.0 Sodium Level 140 Potassium Level 5.5 H Chloride Level 100 Carbon Dioxide Level 24 Anion Gap 16 H Blood Urea Nitrogen 43 #H Creatinine 8.98 #H Est Glomerular Filtrat Rate mL/min 5 L Glucose Level 55 #L Calcium Level 8.2 L Medications Medication Current Medications Acetaminophen (Tylenol Tab) 650 mg Q4H PRN PO MILD PAIN(1-3)OR ELEVATED TEMP Last administered on 07/14/18 02:53; Admin Dose 650 MG; Start 07/13/18 at 09:00 Ondansetron HCl (Zofran Inj) 4 mg Q6H PRN IV NAUSEA AND/OR VOMITING Last administered on 07/17/18 19:17; Admin Dose 4 MG; Start 07/13/18 at 09:00 Acetaminophen/ Hydrocodone Bitart ([place] (5/325)) 1 tab Q4H PRN PO MODERATE PAIN LEVEL 4-6 Last administered on 07/13/18 16:21; Admin Dose 1 TAB; Start 07/13/18 at 09:00 Sevelamer Carbonate (Renvela) 2,400 mg WITH MEALS PO Last administered on 07/20/18 12:20; Admin Dose 2,400 MG; Start 07/13/18 at 11:40 Multivit/Ca Carb/ B Cmplx/FA/Prenat (Aminah-Tanisha) 1 tab DAILY PO Last administered on 07/20/18 09:31; Admin Dose 1 TAB; Start 07/13/18 at 09:00 Lidocaine (Lidoderm) 1 patch DAILY TD Last administered on 07/20/18 09:33; Admin Dose 1 PATCH; Start 07/13/18 at 21:30 Bromocriptine Mesylate (Parlodel) 2.5 mg QHS PO Last administered on 07/19/18 20:24; Admin Dose 2.5 MG; Start 07/14/18 at 21:00 Naproxen (Naprosyn) 500 mg BID PRN PO PAIN AND/OR INFLAMMATION; Start 07/13/18 at 23:30 Pantoprazole (Protonix Tab) 40 mg DAILY@06 PO Last administered on 07/20/18 06:31; Admin Dose 40 MG; Start 07/14/18 at 06:00 Zolpidem Tartrate (Ambien) 10 mg QHS PRN PO INSOMNIA; Start 07/13/18 at 23:30 Diphenhydramine HCl (Benadryl) 50 mg Q6H PRN IV itchiness Last administered on 07/20/18 10:08; Admin Dose 50 MG; Start 07/14/18 at 03:00 Heparin Sodium (Porcine) (Heparin (1000 Units/ml)) 3,000 unit AFTER DIALYSIS CATHETER Last administered on 07/18/18 14:52; Admin Dose 3,000 UNIT; Start 07/14/18 at 16:30 Calcitriol (Rocaltrol) 0.25 mcg DAILY PO Last administered on 07/20/18 08:46; Admin Dose 0.25 MCG; Start 07/15/18 at 09:00 Cefazolin Sodium 50 ml @ 100 mls/hr Q24H IVPB Last administered on 07/19/18 20:24; Admin Dose 100 MLS/HR; Start 07/15/18 at 21:00 Epoetin Maxwell (Epogen (Esrd)) 8,000 units TuThSa@17 SC Last administered on 07/19/18 18:36; Admin Dose 8,000 UNITS; Start 07/16/18 at 17:00 Midodrine (Proamatine) 10 mg TID@,,17 PO Last administered on 07/20/18 12:37; Admin Dose 10 MG; Start 07/16/18 at 13:00 Morphine Sulfate (morphine) 4 mg Q2H PRN IV SEVERE PAIN LEVEL 7-10 Last administered on 07/20/18 14:21; Admin Dose 4 MG; Start 07/17/18 at 09:00 GINGER HARDIN M.D. Jul 20, 2018 14:52
--- NOTE | 2018-07-20 19:15 | RADRPT ---
Echocardiogram Report Patient Name: DEEPTHI ACEVESPatient ID: [id number] : 1985 (32y 9m)Study Date: 07/20/2018 8:31:59 AM Gender: FAccession #: [id number] Tech: Red Broussard [facility] Location: [address] Ref.Physician: ERICK ROBERTSON Height(Cm): BSA: Weight(Kg): Quality: AdequateAccount #: Procedures: Echocardiographic Report: Transthoracic echocardiogram with complete 2D, M-Mode, and doppler examination. Indications: R/O Vegetation. Measurements: 2D/M Mode Doppler Measurement Value Normal Range Measurement Value Normal Range LVIDd 2D 4.4 [ 3.8 - 5.2 ] cm AV Peak Adarsh 1.6 [ 100.0 - 170.0 ] cm/sec LVIDs 2D 2.4 [ 2.2 - 3.5 ] cm AV Peak PG 10.0 [ 2.0 - 9.0 ] mmHg LVPWd 2D 0.9 [ 0.6 - 0.9 ] cm LVOT Peak Adarsh 1.0 [ 70.0 - 110.0 ] cm/sec IVSd 2D 0.9 [ 0.6 - 0.9 ] cm LVOT Peak PG 4.0 [ 2.0 - 6.0 ] mmHg AoR Diam 2D 2.4 [ 2.3 - 3.1 ] cm MV E Peak Adarsh 0.9 [ 60.0 - 130.0 ] cm/sec EDV 2D 87.7 [ 46.0 - 106.0 ] ml MV A Peak Adarsh 0.6 [ 100.0 - 120.0 ] cm/sec ESV 2D 20.6 [ 14.0 - 42.0 ] ml MV E/A 1.4 [ 0.8 - 1.5 ] ratio EF 2D 76.5 [ 54.0 - 74.0 ] percent MV Decel Time 222 [ 104 - 258 ] msec LA Dimen 2D 3.4 [ 2.7 - 3.8 ] cm Lat E` Adarsh 0.1 [ 10.0 - 15.0 ] cm/sec Lateral E/E` 6.3 [ 1.0 - 2.0 ] ratio MV E/A 1.4 [ 0.8 - 1.5 ] ratio TR Peak Adarsh 3.1 [ 100.0 - 280.0 ] cm/sec TR Peak PG 38.0 mmHg RVSP 41.0 [ 10.0 - 36.0 ] mmHg Findings: Left Ventricle: Normal left ventricular systolic function. Normal left ventricular cavity size. Normal left ventricular wall thickness. Ejection fraction is visually estimated at 60 %. Tissue Doppler/Mitral Doppler indices are consistent with pseudonormalization with mildly elevated left atrial pressure (Stage II diastolic dysfunction). Right Ventricle: Normal right ventricular size. Normal right ventricular systolic function. Left Atrium: The left atrium is normal in size. Right Atrium: The right atrium is normal in size. Mitral Valve: Mild mitral leaflet calcification. Mild mitral annular calcification. Trace mitral regurgitation. No evidence of endocarditis. Aortic Valve: No significant aortic stenosis or insufficiency. Aortic cusps appear mildly calcified. No evidence of endocarditis. Tricuspid Valve: Normal appearance of the tricuspid valve. Estimated peak PA systolic pressure 41 mmHg. There is mild tricuspid regurgitation. No evidence of endocarditis. Pulmonic Valve: Normal pulmonic valve appearance. Pericardium: Normal pericardium with no significant pericardial effusion. Aorta: Normal aortic root. IVC: Normal size and normal respiratory collapse consistent with normal right atrial pressure. Conclusions: Normal left ventricular systolic function. Normal left ventricular cavity size. Normal left ventricular wall thickness. Ejection fraction is visually estimated at 60 %. Tissue Doppler/Mitral Doppler indices are consistent with pseudonormalization with mildly elevated left atrial pressure (Stage II diastolic dysfunction). Mild mitral leaflet calcification. Mild mitral annular calcification. Trace mitral regurgitation. No evidence of endocarditis. Normal appearance of the tricuspid valve. Estimated peak PA systolic pressure 41 mmHg. There is mild tricuspid regurgitation. No evidence of endocarditis. Electronically Signed By: Gabe Barrera 2018-07-20 19:14:19 PDT
[2018-07-20] MEDS: BROMOCRIPTINE 2.5 MG TAB PO SCH (21:25)
[2018-07-20] MEDS: CEFAZOLIN 1 GM/50 ML (PMX) 50 ML IVPB SCH (21:25)
[2018-07-21 01:56] VITALS: BP 108/66; PULSE 78; RESP 20
[2018-07-21] MEDS: morphine 4 MG/ML VIAL IV PRN ×5 (04:46→23:00)
[2018-07-21] MEDS: DIPHENHYDRAMINE 50 MG INJ IV PRN ×4 (04:47→23:00)
[2018-07-21] MEDS: PANTOPRAZOLE (EC) 40 MG TAB PO SCH (06:06)
[2018-07-21 07:26] VITALS: BP 86/48; PULSE 66; RESP 16
[2018-07-21] MEDS: SEVELAMER CARBONATE 800 MG TABLET PO SCH ×3 (08:45→17:03)
[2018-07-21] MEDS: CALCITRIOL 0.25 MCG CAP PO SCH (08:45)
[2018-07-21] MEDS: MULTIVIT/CA CARB/B CMPLX/FA TAB PO SCH (08:45)
[2018-07-21] MEDS: LIDOCAINE 5% PATCH TD SCH (09:00)
[2018-07-21] MEDS: MIDODRINE 5 MG TAB PO SCH ×3 (09:00→17:18)
[2018-07-21 14:07] VITALS: BP 100/62; PULSE 87; RESP 18
--- NOTE | 2018-07-21 15:27 | CONS ---
DATE OF ADMISSION: 07/13/2018 DATE OF CONSULTATION: HISTORY OF PRESENT ILLNESS: The patient is a 32-year-old para 1, 1 female with history of hy pertension, end-stage kidney disease on dialysis. The patient has been carefully followed by multipl e specialists, having been admitted with diagnosis of line sepsis. The patient has been followed by ID and had permanent catheter changed to the right groin site. I have discussed with the vascular walker charbel who has not able to place AV fistula because of multiple venous occlusions in this patient. Th e patient has refused the route to go with the peritoneal dialysis. Presently, she complains of pain in the right groin naturally from the catheter. She had a stable he matocrit with the EPO on board. She continues to be on antibiotic therapy and has been otherwise sta ble. She is tolerating dialysis Wednesday, Wednesday and Wednesday without any problem. PHYSICAL EXAMINATION: SKIN: The examination is not changed. Right groin catheter site is okay. There is no swelling, hem atoma or redness. VITAL SIGNS: The patient is afebrile, blood pressure is stable. LABORATORY DATA: Hematocrit is 28%. White count is 5.4. Chemistry is stable with potassium still b eing on the high side at 5.5. RADIOLOGY STUDIES: Have been performed including soft tissue ultrasound which is yesterday which joe wed no abnormality or evidence of hematoma. ASSESSMENT AND PLAN: Under the circumstances, the patient is ready for discharge and I will report t he status to the primary lawn mower, Dr. Jones, who will continue to follow her along after the dis charge. Dictated By: CAMERON SMITH/NTS Conf#: [id number] DID#: [id number] CC: LUANNE WALTER MD;*EndCC*
[2018-07-21] MEDS: EPOETIN 4000 UNITS/1 ML INJ (ESRD) SC SCH (17:05)
--- NOTE | 2018-07-21 17:09 | PN ---
Date/Time of Note Date/Time of Note DATE: 07/21/18 TIME: 17:04 Assessment/Plan VTE Prophylaxis Risk score (from Ns)>0 risk: 6 SCD applied (from Ns): Yes Pharmacological prophylaxis: NA/contraindicated Pharm contraindication: other Lines/Catheters [facility]from [facility] Mid Line Urinary Cath still in place: No Assessment/Plan Hospital Course Patient complains of generalized pain and weakness, PT eval, continue antibiotic for bacteremia. Case management to arrange for renally dosed cefazolin through 07/29/2018 by home health IV services. Assessment/Plan -Line sepsis with MSSA bacteremia, continue cefazolin. Dr Leone is following in infection disease consultation. Right chest Perez catheter d/madisyn. s/p R fem Permacath placement. No endocarditis per TTE. -Hemodialysis dependent end-stage renal disease. is following in nephrology consultation. -History of hyperparathyroidism, status post subtotal parathyroidectomy of the right superior and inferior glands, partial left inferior gland in June 2016. Status post left upper and lower parathyroidectomy and partial left thyroid lobectomy in November [address] Morales, ENT. Dr. De La Fuente is asked to see pt in endocrinology consultation. -Left upper extremity AV fistula nonfunctioning, Dr. Francisco is following in vascular surgery consultation. -Leukemia Further recommendations based on clinical course. Plan of care discussed with Dr. Turner. Result Diagram: 07/20/1844707/20/18447 Exam/Review of Systems Exam Vitals Vital Signs Date Temp Pulse Resp B/P (MAP) Pulse Ox O2 O2 Flow FiO2 Time Delivery Rate 07/21/18 98.2 87 18 100/62 94 Room Air 14:07 (75) Intake and Output 07/20/18 07/20/18 07/21/18 1515:00 23:00 07:00 IntakeIntake Total 170 ml OutputOutput Total 1800 ml BalanceBalance -1630 ml Exam Constitutional: alert, oriented Respiratory: clear to auscultation Cardiovascular: nl pulses Gastrointestinal: soft, non-tender Extremities: normal pulses 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: nl mental status Additional Comments R fem Perma cath Medications Medication Current Medications Acetaminophen (Tylenol Tab) 650 mg Q4H PRN PO MILD PAIN(1-3)OR ELEVATED TEMP Last administered on 3/21/19at 02:53; Admin Dose 650 MG; Start 07/13/18 at 09:00 Ondansetron HCl (Zofran Inj) 4 mg Q6H PRN IV NAUSEA AND/OR VOMITING Last administered on 07/17/18 19:17; Admin Dose 4 MG; Start 07/13/18 at 09:00 Acetaminophen/ Hydrocodone Bitart ([place] (5/325)) 1 tab Q4H PRN PO MODERATE PAIN LEVEL 4-6 Last administered on 07/13/18 16:21; Admin Dose 1 TAB; Start 07/13/18 at 09:00 Sevelamer Carbonate (Renvela) 2,400 mg WITH MEALS PO Last administered on 07/21/18 11:56; Admin Dose 2,400 MG; Start 07/13/18 at 11:40 Multivit/Ca Carb/ B Cmplx/FA/Prenat (Aminah-Tanisha) 1 tab DAILY PO Last administered on 07/21/18 08:45; Admin Dose 1 TAB; Start 07/13/18 at 09:00 Lidocaine (Lidoderm) 1 patch DAILY TD Last administered on 07/20/18 09:33; Admin Dose 1 PATCH; Start 07/13/18 at 21:30 Bromocriptine Mesylate (Parlodel) 2.5 mg QHS PO Last administered on 07/20/18 21:25; Admin Dose 2.5 MG; Start 07/14/18 at 21:00 Naproxen (Naprosyn) 500 mg BID PRN PO PAIN AND/OR INFLAMMATION; Start 07/13/18 at 23:30 Pantoprazole (Protonix Tab) 40 mg DAILY@06 PO Last administered on 07/21/18 06:06; Admin Dose 40 MG; Start 07/14/18 at 06:00 Zolpidem Tartrate (Ambien) 10 mg QHS PRN PO INSOMNIA; Start 07/13/18 at 23:30 Diphenhydramine HCl (Benadryl) 50 mg Q6H PRN IV itchiness Last administered on 07/21/18 11:07; Admin Dose 50 MG; Start 07/14/18 at 03:00 Heparin Sodium (Porcine) (Heparin (1000 Units/ml)) 3,000 unit AFTER DIALYSIS CATHETER Last administered on 07/18/18 14:52; Admin Dose 3,000 UNIT; Start 07/14/18 at 16:30 Calcitriol (Rocaltrol) 0.25 mcg DAILY PO Last administered on 07/21/18 08:45; Admin Dose 0.25 MCG; Start 07/15/18 at 09:00 Cefazolin Sodium 50 ml @ 100 mls/hr Q24H IVPB Last administered on 07/20/18 21:25; Admin Dose 100 MLS/HR; Start 07/15/18 at 21:00 Epoetin Maxwell (Epogen (Esrd)) 8,000 units TuThSa@17 SC Last administered on 07/19/18 18:36; Admin Dose 8,000 UNITS; Start 07/16/18 at 17:00 Midodrine (Proamatine) 10 mg TID@09,13,17 PO Last administered on 07/20/18 17:42; Admin Dose 10 MG; Start 07/16/18 at 13:00 Morphine Sulfate (morphine) 4 mg Q2H PRN IV SEVERE PAIN LEVEL 7-10 Last administered on 07/21/18 11:56; Admin Dose 4 MG; Start 07/17/18 at 09:00 ERICK ROBERTSON Jul 21, 2018 17:09
[2018-07-21 20:36] VITALS: BP 117/60; PULSE 80; RESP 20
--- NOTE | 2018-07-21 20:54 | CONS ---
[facility] HCIS Consult Follow-up Patient Name: Maria Luisa Lakhani Unit Number: [id number] Date of : 1985 Patient Status: Admitted Inpatient Attending Doctor: Pawan Walter MD Edit: GINGER LEONE M.D. on 07/22/18 @ 14:35 Sulema: I discussed the management with YOKASTA Bueno and agree with her Assessment/Plan Assessment/Plan Hospital Course (Demo Recall) # sepsis, heme/onc - sepsis due to bacteremia - bacteremia due to MSSA; TTE 07/20/2018 shows no e/o vegetation - s/p removal of permacath on R chest wall on 07/14/2018 - s/p R femoral HD justin catheter placement 07/14/2018, replaced by HD permacath 07/19/2018 - pain/increased sensitivity of R groin after replacement of the justin with permacath - thrombosed L brachiocephalic AV fistula, 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 Last used for HD in 04/2018. 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 The culture of the tip of the removed catheter, blood cultures and swab of the catheter site were negative. Pt completed an empiric course of renally dosed pip/tazo (06/13/2018-06/18/2018) - h/o placement of a permacath on R chest wall on 06/23/2018 - h/o creation of AVF in [facility] in 2017 - h/o 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 Pt took renally dosed valACV (07/15/2018-07/17/2018) - adverse reaction to vancomycin (pruritus) - adverse reaction to linezolid (thrombocytopenia). Linezolid was discontinued (06/12/2018-06/17/2018) Recommendations: - continue renally dosed cefazolin (07/15/2018-) for bacteremia due to MSSA; plan through 07/29/2018 - pain management per primary team Management d/w patient and with Dr. Leone Consultation Date/Type/Reason Admit Date/Time Jul 13, 2018 at 05:59 Initial Consult Date 07/14/18 Type of Consult Infectious Disease Requesting Provider: PAWAN WALTER MD Date/Time of Note DATE: 07/21/18 TIME: 20:47 24 HR Interval Summary Free Text/Dictation C/o RLE and low back pain rating 10/10. State IV pain med helps "a little". US of R groin negative. Exam/Review of Systems Exam Vitals Vital Signs Date Temp Pulse Resp B/P (MAP) Pulse Ox O2 O2 Flow FiO2 Time Delivery Rate 07/21/18 98.3 80 20 117/60 95 Room Air 20:36 (79) Nasal Cannula Intake and Output 07/20/18 07/20/18 07/21/18 1515:00 23:00 07:00 IntakeIntake Total 170 ml OutputOutput Total 1800 ml BalanceBalance -1630 ml Exam Constitutional: alert, oriented, well developed Psych: no complaints, nl mood/affect Head: normocephalic, atraumatic, other (alopecia noted) Eyes: nl conjunctiva, nl lids, nl sclera ENMT: nl external ears & nose, nl lips & teeth, nl nasal mucosa & septum, mucosa pink and moist Neck: supple, non-tender Respiratory: clear to auscultation, normal air movement Cardiovascular: regular rate and rhythm, nl pulses Gastrointestinal: soft, non-tender Genitourinary - Female: other (No Stephen; R femoral HD catheter c/d/i with TTP) Musculoskeletal: nl extremities to inspection Extremities: normal pulses, other (LUE AVF noted with no thrill, non-TTP); No cyanosis, No clubbing, No edema 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: nl mental status, nl speech, nl strength Skin: nl turgor, other (R chest wound from previous HD catheter is pink with no drainage, [employer]; multiple tattoos including a dolphin on RLQ abdomen) Results Result Diagram: 07/20/188 07/20/188 Imaging Imaging US R inguinal region 07/20/2018: IMPRESSION: 1. No abnormality at the site of the palpable lesion adjacent to the right inguinal region dialysis catheter. 2. Any further management regarding the palpable lesion should be based on clinical grounds. TTE 07/20/2018: Normal left ventricular systolic function. Normal left ventricular cavity size. Normal left ventricular wall thickness. Ejection fraction is visually estimated at 60 %. Tissue Doppler/Mitral Doppler indices are consistent with pseudonormalization with mildly elevated left atrial pressure (Stage II diastolic dysfunction). Mild mitral leaflet calcification. Mild mitral annular calcification. Trace mitral regurgitation. No evidence of endocarditis. Normal appearance of the tricuspid valve. Estimated peak PA systolic pressure 41 mmHg. There is mild tricuspid regurgitation. No evidence of endocarditis. Medications Medication Current Medications Acetaminophen (Tylenol Tab) 650 mg Q4H PRN PO MILD PAIN(1-3)OR ELEVATED TEMP Last administered on 07/14/18at 02:53; Admin Dose 650 MG; Start 07/13/18 at 09:00 Ondansetron HCl (Zofran Inj) 4 mg Q6H PRN IV NAUSEA AND/OR VOMITING Last administered on 07/17/18at 19:17; Admin Dose 4 MG; Start 07/13/18 at 09:00 Acetaminophen/ Hydrocodone Bitart ([place] (5/325)) 1 tab Q4H PRN PO MODERATE PAIN LEVEL 4-6 Last administered on 07/13/18at 16:21; Admin Dose 1 TAB; Start 07/13/18 at 09:00 Sevelamer Carbonate (Renvela) 2,400 mg WITH MEALS PO Last administered on 07/21/18 17:03; Admin Dose 2,400 MG; Start 07/13/18 at 11:40 Multivit/Ca Carb/ B Cmplx/FA/Prenat (Aminah-Tanisha) 1 tab DAILY PO Last administ ered on 07/21/18 08:45; Admin Dose 1 TAB; Start 07/13/18 at 09:00 Lidocaine (Lidoderm) 1 patch DAILY TD Last administered on 07/20/18 09:33; Admin Dose 1 PATCH; Start 07/13/18 at 21:30 Bromocriptine Mesylate (Parlodel) 2.5 mg QHS PO Last administered on 07/20/18 21:25; Admin Dose 2.5 MG; Start 07/14/18 at 21:00 Naproxen (Naprosyn) 500 mg BID PRN PO PAIN AND/OR INFLAMMATION; Start 07/13/18 at 23:30 Pantoprazole (Protonix Tab) 40 mg DAILY@06 PO Last administered on 07/21/18 06:06; Admin Dose 40 MG; Start 07/14/18 at 06:00 Zolpidem Tartrate (Ambien) 10 mg QHS PRN PO INSOMNIA; Start 07/13/18 at 23:30 Diphenhydramine HCl (Benadryl) 50 mg Q6H PRN IV itchiness Last administered on 07/21/18 17:03; Admin Dose 50 MG; Start 07/14/18 at 03:00 Heparin Sodium (Porcine) (Heparin (1000 Units/ml)) 3,000 unit AFTER DIALYSIS CATHETER Last administered on 07/18/18 14:52; Admin Dose 3,000 UNIT; Start 07/14/18 at 16:30 Calcitriol (Rocaltrol) 0.25 mcg DAILY PO Last administered on 07/21/18 08:45; Admin Dose 0.25 MCG; Start 07/15/18 at 09:00 Cefazolin Sodium 50 ml @ 100 mls/hr Q24H IVPB Last administered on 07/20/18 21:25; Admin Dose 100 MLS/HR; Start 07/15/18 at 21:00 Epoetin Maxwell (Epogen (Esrd)) 8,000 units TuThSa@17 SC Last administered on 07/21/18 17:05; Admin Dose 8,000 UNITS; Start 07/16/18 at 17:00 Midodrine (Proamatine) 10 mg TID@09,13,17 PO Last administered on 07/21/18 17:18; Admin Dose 10 MG; Start 07/16/18 at 13:00 Morphine Sulfate (morphine) 4 mg Q2H PRN IV SEVERE PAIN LEVEL 7-10 Last administered on 07/21/18 17:03; Admin Dose 4 MG; Start 07/17/18 at 09:00 EDIE BUENO NP Jul 21, 2018 20:54
[2018-07-21] MEDS: BROMOCRIPTINE 2.5 MG TAB PO SCH (22:05)
[2018-07-21] MEDS: CEFAZOLIN 1 GM/50 ML (PMX) 50 ML IVPB SCH (22:05)
[2018-07-22 02:23] VITALS: BP 118/65; PULSE 75; RESP 17
[2018-07-22] MEDS: DIPHENHYDRAMINE 50 MG INJ IV PRN ×4 (04:58→23:01)
[2018-07-22] MEDS: morphine 4 MG/ML VIAL IV PRN ×4 (04:58→23:02)
[2018-07-22] MEDS: PANTOPRAZOLE (EC) 40 MG TAB PO SCH (04:58)
[2018-07-22 07:29] VITALS: BP 105/58; PULSE 68; RESP 18
[2018-07-22] MEDS: LIDOCAINE 5% PATCH TD SCH (09:00)
[2018-07-22] MEDS: CALCITRIOL 0.25 MCG CAP PO SCH (09:12)
[2018-07-22] MEDS: MULTIVIT/CA CARB/B CMPLX/FA TAB PO SCH (09:12)
[2018-07-22] MEDS: SEVELAMER CARBONATE 800 MG TABLET PO SCH ×3 (09:12→17:53)
[2018-07-22] MEDS: MIDODRINE 5 MG TAB PO SCH ×3 (09:46→17:00)
[2018-07-22 12:00] VITALS: BP 117/80; PULSE 92; RESP 16
[2018-07-22 13:40] VITALS: BP 115/70; PULSE 72; RESP 18
--- NOTE | 2018-07-22 15:15 | CONS ---
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 Last used for HD in 04/2018. Was scheduled to get a new graft in 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 The culture of the tip of the removed catheter, blood cultures and swab of the catheter site were negative. Pt completed an empiric course of renally dosed pip/tazo (06/13/2018-06/18/2018) - h/o placement of a permacath on R chest wall on 06/23/2018 - h/o creation of AVF in [facility] in 2016 - h/o 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 Pt took renally dosed valACV (07/15/2018-07/17/2018) - adverse reaction to vancomycin (pruritus) - adverse reaction to linezolid (thrombocytopenia). Linezolid was discontinued (06/12/2018-06/17/2018) recommendations: - continue renally dosed cefazolin (07/15/2018-) for bacteremia due to MSSA through 07/29/2018 management d/w Pt, her RN Michael Consultation Date/Type/Reason Admit Date/Time Jul 13, 2018 at 05:59 Initial Consult Date 07/14/18 Type of Consult ID Requesting Provider: LUANNE WALTER MD Date/Time of Note DATE: 07/22/18 TIME: 15:12 24 HR Interval Summary Constitutional: no complaints Detailed Summary Eyes: no complaints ENT: no complaints Respiratory: no complaints Cardiovascular: other (HD catheter got clogged and HD could not be done) Gastrointestinal: no complaints Genitourinary: other (+pain in R groin is "OK") Musculoskeletal: no complaints Skin: no complaints Neurologic: no complaints Exam/Review of Systems Exam Vitals Vital Signs Date Temp Pulse Resp B/P (MAP) Pulse Ox O2 O2 Flow FiO2 Time Delivery Rate 07/22/18 98.0 72 18 115/70 94 13:40 (85) 07/22/18 Room Air 12:00 Intake and Output 07/21/18 07/21/18 07/22/18 1515:00 23:00 07:00 IntakeIntake Total 120 ml 530 ml BalanceBalance 120 ml 530 ml Constitutional: alert, oriented Psych: no complaints, nl mood/affect Head: normocephalic, atraumatic, other (+alopecia) Eyes: nl conjunctiva, nl lids ENMT: nl external ears & nose, nl nasal mucosa & septum Neck: other (not swollen) Respiratory: clear to auscultation, normal air movement Cardiovascular: regular rate and rhythm, nl pulses, other (+HD catheter in R groin is intact) Gastrointestinal: soft, non-tender; No distended Musculoskeletal: nl extremities to inspection, nl gait and stance Extremities: normal pulses 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, nl mental status, nl speech, nl strength Skin: nl turgor, rash or lesions (former catheter site on R chest wall is scalpy, edematous but non-TTP) Results Result Diagram: 07/22/18 0441 07/22/18 0441 Results 24hrs Laboratory Tests Test 07/22/18 04:41 White Blood Count 5.2 Red Blood Count 2.81 L Hemoglobin 9.1 L Hematocrit 29.3 L Mean Corpuscular Volume 104.3 H Mean Corpuscular Hemoglobin 32.4 Mean Corpuscular Hemoglobin Concent 31.1 L Red Cell Distribution Width 14.9 H Platelet Count 281 # Mean Platelet Volume 10.8 H Immature Granulocytes % 2.500 H Neutrophils % 50.5 Lymphocytes % 27.7 Monocytes % 10.3 Eosinophils % 8.2 H Basophils % 0.8 Nucleated Red Blood Cells % 0.6 H Immature Granulocytes # 0.130 H Neutrophils # 2.7 Lymphocytes # 1.5 Monocytes # 0.5 Eosinophils # 0.4 Basophils # 0.0 Nucleated Red Blood Cells # 0.0 Sodium Level 143 Potassium Level 5.6 H Chloride Level 104 Carbon Dioxide Level 24 Anion Gap 15 H Blood Urea Nitrogen 44 H Creatinine 8.95 H Est Glomerular Filtrat Rate mL/min 5 L Glucose Level 72 Calcium Level 8.2 L Medications Medication Current Medications Acetaminophen (Tylenol Tab) 650 mg Q4H PRN PO MILD PAIN(1-3)OR ELEVATED TEMP Last administered on 07/14/18 02:53; Admin Dose 650 MG; Start 07/13/18 at 09:00 Ondansetron HCl (Zofran Inj) 4 mg Q6H PRN IV NAUSEA AND/OR VOMITING Last administered on 07/17/18 19:17; Admin Dose 4 MG; Start 07/13/18 at 09:00 Acetaminophen/ Hydrocodone Bitart ([place] (5/325)) 1 tab Q4H PRN PO MODERATE PAIN LEVEL 4-6 Last administered on 07/13/18 16:21; Admin Dose 1 TAB; Start 07/13/18 at 09:00 Sevelamer Carbonate (Renvela) 2,400 mg WITH MEALS PO Last administered on 07/22/18 13:09; Admin Dose 2,400 MG; Start 07/13/18 at 11:40 Multivit/Ca Carb/ B Cmplx/FA/Prenat (Aminah-Tanisha) 1 tab DAILY PO Last adm inistered on 07/22/18 09:12; Admin Dose 1 TAB; Start 07/13/18 at 09:00 Lidocaine (Lidoderm) 1 patch DAILY TD Last administered on 07/20/18 09:33; Admin Dose 1 PATCH; Start 07/13/18 at 21:30 Bromocriptine Mesylate (Parlodel) 2.5 mg QHS PO Last administered on 07/21/18 22:05; Admin Dose 2.5 MG; Start 07/14/18 at 21:00 Naproxen (Naprosyn) 500 mg BID PRN PO PAIN AND/OR INFLAMMATION; Start 07/13/18 at 23:30 Pantoprazole (Protonix Tab) 40 mg DAILY@06 PO Last administered on 07/22/18 04:58; Admin Dose 40 MG; Start 07/14/18 at 06:00 Zolpidem Tartrate (Ambien) 10 mg QHS PRN PO INSOMNIA; Start 07/13/18 at 23:30 Diphenhydramine HCl (Benadryl) 50 mg Q6H PRN IV itchiness Last administered on 07/22/18 10:59; Admin Dose 50 MG; Start 07/14/18 at 03:00 Heparin Sodium (Porcine) (Heparin (1000 Units/ml)) 3,000 unit AFTER DIALYSIS CATHETER Last administered on 07/18/18 14:52; Admin Dose 3,000 UNIT; Start 07/14/18 at 16:30 Calcitriol (Rocaltrol) 0.25 mcg DAILY PO Last administered on 07/22/18 09:12; Admin Dose 0.25 MCG; Start 07/15/18 at 09:00 Cefazolin Sodium 50 ml @ 100 mls/hr Q24H IVPB Last administered on 07/21/18 22:05; Admin Dose 100 MLS/HR; Start 07/15/18 at 21:00 Epoetin Maxwell (Epogen (Esrd)) 8,000 units TuThSa@17 SC Last administered on 07/21/18 17:05; Admin Dose 8,000 UNITS; Start 07/16/18 at 17:00 Midodrine (Proamatine) 10 mg TID@09,13,17 PO Last administered on 07/22/18 09:46; Admin Dose 10 MG; Start 07/16/18 at 13:00 Morphine Sulfate (morphine) 4 mg Q2H PRN IV SEVERE PAIN LEVEL 7-10 Last administered on 07/22/18 11:00; Admin Dose 4 MG; Start 07/17/18 at 09:00 GINGER HARDIN M.D. Jul 22, 2018 15:14
[2018-07-22] MEDS ORDERED: ALTEPLASE (CATHFLO) 2 MG INJ CATHETER PRN (17:30)
[2018-07-22] MEDS ORDERED: ALTEPLASE (CATHFLO) 2 MG INJ CATHETER ONE (18:30)
[2018-07-22 20:06] VITALS: BP 118/75; PULSE 77; RESP 18
--- NOTE | 2018-07-22 20:45 | PN ---
Date/Time of Note Date/Time of Note DATE: 07/22/18 TIME: 20:44 Assessment/Plan VTE [place]axis [place] [facility] risk: 6 [place]CD applied [place] [facility] Yes SCD contraindicated: other Pharmacological prophylaxis: other Pharm contraindication: other Lines/Catheters [facility] Type [facility]from [facility] Mid Line Central line still needed: Yes Urinary Cath still in place: No Assessment/Plan Assessment/Plan - Hyperkalemia -Per nephrology -Line sepsis with MSSA bacteremia, continue cefazolin. Dr Leone is following in infection disease consultation. Right chest Perez catheter d/madisyn. s/p R fem Permacath placement. No endocarditis per TTE. -Hemodialysis dependent end-stage renal disease. is following in nephrology consultation. -History of hyperparathyroidism, status post subtotal parathyroidectomy of the right superior and inferior glands, partial left inferior gland in June 2016. Status post left upper and lower parathyroidectomy and partial left thyroid lobectomy in November [address] Morales, ENT. Dr. De La Fuente is asked to see pt in endocrinology consultation. -Left upper extremity AV fistula nonfunctioning, Dr. Francisco is following in vascular surgery consultation. -Leukemia Further recommendations based on clinical course. Plan of care discussed with Dr. Turner. Result Diagram: 07/22/18 0441 07/22/18 0441 Results 24hrs Laboratory Tests Test 07/22/18 04:41 White Blood Count 5.2 Red Blood Count 2.81 L Hemoglobin 9.1 L Hematocrit 29.3 L Mean Corpuscular Volume 104.3 H Mean Corpuscular Hemoglobin 32.4 Mean Corpuscular Hemoglobin Concent 31.1 L Red Cell Distribution Width 14.9 H Platelet Count 281 # Mean Platelet Volume 10.8 H Immature Granulocytes % 2.500 H Neutrophils % 50.5 Lymphocytes % 27.7 Monocytes % 10.3 Eosinophils % 8.2 H Basophils % 0.8 Nucleated Red Blood Cells % 0.6 H Immature Granulocytes # 0.130 H Neutrophils # 2.7 Lymphocytes # 1.5 Monocytes # 0.5 Eosinophils # 0.4 Basophils # 0.0 Nucleated Red Blood Cells # 0.0 Sodium Level 143 Potassium Level 5.6 H Chloride Level 104 Carbon Dioxide Level 24 Anion Gap 15 H Blood Urea Nitrogen 44 H Creatinine 8.95 H Est Glomerular Filtrat Rate mL/min 5 L Glucose Level 72 Calcium Level 8.2 L Subjective 24 Hr Interval Summary Free Text/Dictation nad; afebrile Patient HD cancelled as right Perez cath is clogged.Evelia is aware. Dialysis nurse tried to de clog HD cath but was unsuccessful Dr Silverio recommended Peritoneal dialysis but patient refused and is very upset; all Qs answered ; wants to talk to her medical and health services manager- Dr Nogueira; staff will call Dr Jones No new events reported last night Constitutional: requiring IVF Eyes: no complaints ENT: no complaints Respiratory: no complaints Cardiovascular: no complaints Gastrointestinal: no complaints Genitourinary: no complaints Musculoskeletal: no complaints Skin: other ( sp new HD cath-right groin- c/o pain ) Neurologic: no complaints Endocrine: no complaints Lymphatic: adenopathy Psychological: anxiety Immunologic: immunodeficiency Exam/Review of Systems Exam Vitals Vital Signs Date Temp Pulse Resp B/P (MAP) Pulse Ox O2 O2 Flow FiO2 Time Delivery Rate 07/22/18 98.6 77 18 118/75 95 20:06 (89) 07/22/18 Room Air 12:00 Intake and Output 07/21/18 07/21/18 07/22/18 1515:00 23:00 07:00 IntakeIntake Total 120 ml 530 ml BalanceBalance 120 ml 530 ml Constitutional: alert, oriented, well developed Psych: nl mood/affect Head: atraumatic Eyes: EOMI, nl lids, nl sclera ENMT: nl external ears & nose Neck: non-tender Respiratory: clear to auscultation Cardiovascular: nl pulses, other (s1s2; right chest sp perm cath removal- ) Gastrointestinal: soft, non-tender Musculoskeletal: nl extremities to inspection Extremities: normal pulses 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: nl mental status, nl speech Skin: other (right groin [place]0 DDI ) Lymph: nontender Results Results 24hrs Laboratory Tests Test 07/22/18 04:41 White Blood Count 5.2 Red Blood Count 2.81 L Hemoglobin 9.1 L Hematocrit 29.3 L Mean Corpuscular Volume 104.3 H Mean Corpuscular Hemoglobin 32.4 Mean Corpuscular Hemoglobin Concent 31.1 L Red Cell Distribution Width 14.9 H Platelet Count 281 # Mean Platelet Volume 10.8 H Immature Granulocytes % 2.500 H Neutrophils % 50.5 Lymphocytes % 27.7 Monocytes % 10.3 Eosinophils % 8.2 H Basophils % 0.8 Nucleated Red Blood Cells % 0.6 H Immature Granulocytes # 0.130 H Neutrophils # 2.7 Lymphocytes # 1.5 Monocytes # 0.5 Eosinophils # 0.4 Basophils # 0.0 Nucleated Red Blood Cells # 0.0 Sodium Level 143 Potassium Level 5.6 H Chloride Level 104 Carbon Dioxide Level 24 Anion Gap 15 H Blood Urea Nitrogen 44 H Creatinine 8.95 H Est Glomerular Filtrat Rate mL/min 5 L Glucose Level 72 Calcium Level 8.2 L Medications Medication Current Medications Acetaminophen (Tylenol Tab) 650 mg Q4H PRN PO MILD PAIN(1-3)OR ELEVATED TEMP Last administered on 07/14/18 02:53; Admin Dose 650 MG; Start 07/13/18 at 09:00 Ondansetron HCl (Zofran Inj) 4 mg Q6H PRN IV NAUSEA AND/OR VOMITING Last administered on 07/17/18 19:17; Admin Dose 4 MG; Start 07/13/18 at 09:00 Acetaminophen/ Hydrocodone Bitart ([place] (5/325)) 1 tab Q4H PRN PO MODERATE PAIN LEVEL 4-6 Last administered on 07/13/18 16:21; Admin Dose 1 TAB; Start 07/13/18 at 09:00 Sevelamer Carbonate (Renvela) 2,400 mg WITH MEALS PO Last administered on 07/22/18 17:53; Admin Dose 2,400 MG; Start 07/13/18 at 11:40 Multivit/Ca Carb/ B Cmplx/FA/Prenat (Aminah-Tanisha) 1 tab DAILY PO Last administered on 07/22/18 09:12; Admin Dose 1 TAB; Start 07/13/18 at 09:00 Lidocaine (Lidoderm) 1 patch DAILY TD Last administered on 07/20/18 09:33; Admin Dose 1 PATCH; Start 07/13/18 at 21:30 Bromocriptine Mesylate (Parlodel) 2.5 mg QHS PO Last administered on 07/21/18 22:05; Admin Dose 2.5 MG; Start 07/14/18 at 21:00 Naproxen (Naprosyn) 500 mg BID PRN PO PAIN AND/OR INFLAMMATION; Start 07/13/18 at 23:30 Pantoprazole (Protonix Tab) 40 mg DAILY@06 PO Last administered on 07/22/18 04:58; Admin Dose 40 MG; Start 07/14/18 at 06:00 Zolpidem Tartrate (Ambien) 10 mg QHS PRN PO INSOMNIA; Start 07/13/18 at 23:30 Diphenhydramine HCl (Benadryl) 50 mg Q6H PRN IV itchiness Last administered on 07/22/18 16:53; Admin Dose 50 MG; Start 07/14/18 at 03:00 Heparin Sodium (Porcine) (Heparin (1000 Units/ml)) 3,000 unit AFTER DIALYSIS CATHETER Last administered on 07/18/18 14:52; Admin Dose 3,000 UNIT; Start 07/14/18 at 16:30 Calcitriol (Rocaltrol) 0.25 mcg DAILY PO Last administered on 07/22/18 09:12; Admin Dose 0.25 MCG; Start 07/15/18 at 09:00 Cefazolin Sodium 50 ml @ 100 mls/hr Q24H IVPB Last administered on 07/21/18 22:05; Admin Dose 100 MLS/HR; Start 07/15/18 at 21:00 Epoetin Maxwell (Epogen (Esrd)) 8,000 units TuThSa@17 SC Last administered on 07/21/18 17:05; Admin Dose 8,000 UNITS; Start 07/16/18 at 17:00 Midodrine (Proamatine) 10 mg TID@09,13,17 PO Last administered on 07/22/18 09:46; Admin Dose 10 MG; Start 07/16/18 at 13:00 Morphine Sulfate (morphine) 4 mg Q2H PRN IV SEVERE PAIN LEVEL 7-10 Last administered on 07/22/18 16:53; Admin Dose 4 MG; Start 07/17/18 at 09:00 Alteplase, Recombinant (Cathflo (Activase)) 2 mg MAY REPEAT X1 PRN CATHETER IF CATHETER REMAINS OCCULUDED; Start 07/22/18 at 17:30 EDILMA CASIANO Jul 22, 2018 20:45
[2018-07-22] MEDS: BROMOCRIPTINE 2.5 MG TAB PO SCH (21:12)
[2018-07-22] MEDS: CEFAZOLIN 1 GM/50 ML (PMX) 50 ML IVPB SCH (21:12)
[2018-07-23] VITALS (19 sets, daily range): BP systolic 92–122; BP diastolic 60–87; PULSE 72–113; RESP 17–19
[2018-07-23] MEDS: PANTOPRAZOLE (EC) 40 MG TAB PO SCH (05:10)
[2018-07-23] MEDS: morphine 4 MG/ML VIAL IV PRN ×3 (05:11→23:18)
[2018-07-23] MEDS: DIPHENHYDRAMINE 50 MG INJ IV PRN ×3 (05:11→23:18)
[2018-07-23] MEDS: CALCITRIOL 0.25 MCG CAP PO SCH (08:20)
[2018-07-23] MEDS: MULTIVIT/CA CARB/B CMPLX/FA TAB PO SCH (08:20)
[2018-07-23] MEDS: SEVELAMER CARBONATE 800 MG TABLET PO SCH ×3 (08:20→17:25)
[2018-07-23] MEDS: LIDOCAINE 5% PATCH TD SCH (08:40)
[2018-07-23] MEDS: MIDODRINE 5 MG TAB PO SCH ×3 (08:41→18:50)
[2018-07-23] MEDS ORDERED: DIPHENHYDRAMINE 50 MG INJ IV ONE ×2 (09:00→15:00)
--- NOTE | 2018-07-23 13:36 | PN ---
Date/Time of Note Date/Time of Note DATE: 07/23/18 TIME: 13:18 Assessment/Plan VTE Prophylaxis Risk score (from Ns)>0 risk: 2 SCD applied (from Nsg): Yes Pharmacological prophylaxis: other Lines/Catheters IV Catheter Type (from Nrsg): Permacath Central line still needed: Yes Urinary Cath still in place: No Assessment/Plan Assessment/Plan - Hyperkalemia -Per nephrology -Line sepsis with MSSA bacteremia, continue cefazolin. Dr Leone is following in infection disease consultation. Right chest Perez catheter d/madisyn. s/p R fem Permacath placement. No endocarditis per TTE. -Hemodialysis dependent end-stage renal disease. is following in nephrology consultation. -History of hyperparathyroidism, status post subtotal parathyroidectomy of the right superior and inferior glands, partial left inferior gland in June 2016. Status post left upper and lower parathyroidectomy and partial left thyroid lobectomy in November [address] Morales, ENT. Dr. De La Fuente is asked to see pt in endocrinology consultation. -Left upper extremity AV fistula nonfunctioning, Dr. Francisco is following in vascular surgery consultation. -Leukemia Further recommendations based on clinical course. Plan of care discussed with Dr. Turner. Result Diagram: 07/22/18 0441 07/22/18 0441 Subjective 24 Hr Interval Summary Free Text/Dictation nad; afebrile; all Qs answered HD cath got declotted; patient is having HD now r no new events reported last nigh per staff Eyes: no complaints ENT: no complaints Respiratory: no complaints Cardiovascular: no complaints Gastrointestinal: no complaints Genitourinary: other (right groinn -HD cath site pain ) Musculoskeletal: no complaints Skin: no complaints Neurologic: no complaints Endocrine: no complaints Lymphatic: no complaints Exam/Review of Systems Exam Vitals Vital Signs Date Temp Pulse Resp B/P (MAP) Pulse Ox O2 O2 Flow FiO2 Time Delivery Rate 07/23/18 90 12:35 07/23/18 18 114/78 98 Room Air 10:50 (90) 07/23/18 97.5 07:36 Intake and Output 07/22/18 07/22/18 07/23/18 1515:00 23:00 07:00 IntakeIntake Total 310 ml 340 ml BalanceBalance 310 ml 340 ml Constitutional: alert, oriented, well developed Psych: nl mood/affect Head: normocephalic Eyes: nl lids, nl sclera ENMT: nl external ears & nose Neck: non-tender Respiratory: clear to auscultation Cardiovascular: nl pulses, other (s1s2; right chest-port a cath removal small skin hole noted- no discharge; mild renness; no edema noted) Gastrointestinal: soft, non-tender Musculoskeletal: nl extremities to inspection Extremities: normal pulses 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: nl mental status, nl speech Skin: nl turgor Lymph: nontender Medications Medication Current Medications Acetaminophen (Tylenol Tab) 650 mg Q4H PRN PO MILD PAIN(1-3)OR ELEVATED TEMP Last administered on 07/14/18 02:53; Admin Dose 650 MG; Start 07/13/18 at 09:00 Ondansetron HCl (Zofran Inj) 4 mg Q6H PRN IV NAUSEA AND/OR VOMITING Last administered on 07/17/18 19:17; Admin Dose 4 MG; Start 07/13/18 at 09:00 Acetaminophen/ Hydrocodone Bitart ([place] (5/325)) 1 tab Q4H PRN PO MODERATE PAIN LEVEL 4-6 Last administered on 07/13/18 16:21; Admin Dose 1 TAB; Start 07/13/18 at 09:00 Sevelamer Carbonate (Renvela) 2,400 mg WITH MEALS PO Last administered on 07/23/18 11:21; Admin Dose 2,400 MG; Start 07/13/18 at 11:40 Multivit/Ca Carb/ B Cmplx/FA/Prenat (Aminah-Tanisha) 1 tab DAILY PO Last administered on 07/23/18 08:20; Admin Dose 1 TAB; Start 07/13/18 at 09:00 Lidocaine (Lidoderm) 1 patch DAILY TD Last administered on 07/20/18 09:33; Admin Dose 1 PATCH; Start 07/13/18 at 21:30 Bromocriptine Mesylate (Parlodel) 2.5 mg QHS PO Last administered on 07/22/18 21:12; Admin Dose 2.5 MG; Start 07/14/18 at 21:00 Naproxen (Naprosyn) 500 mg BID PRN PO PAIN AND/OR INFLAMMATION; Start 07/13/18 at 23:30 Pantoprazole (Protonix Tab) 40 mg DAILY@06 PO Last administered on 07/23/18 05:10; Admin Dose 40 MG; Start 07/14/18 at 06:00 Zolpidem Tartrate (Ambien) 10 mg QHS PRN PO INSOMNIA; Start 07/13/18 at 23:30 Diphenhydramine HCl (Benadryl) 50 mg Q6H PRN IV itchiness Last administered on 07/23/18 11:20; Admin Dose 50 MG; Start 07/14/18 at 03:00 Heparin Sodium (Porcine) (Heparin (1000 Units/ml)) 3,000 unit AFTER DIALYSIS CATHETER Last administered on 07/18/18 14:52; Admin Dose 3,000 UNIT; Start 07/14/18 at 16:30 Calcitriol (Rocaltrol) 0.25 mcg DAILY PO Last administered on 07/23/18 08:20; Admin Dose 0.25 MCG; Start 07/15/18 at 09:00 Cefazolin Sodium 50 ml @ 100 mls/hr Q24H IVPB Last administered on 07/22/18 21:12; Admin Dose 100 MLS/HR; Start 07/15/18 at 21:00 Epoetin Maxwell (Epogen (Esrd)) 8,000 units TuThSa@17 SC Last administered on 07/21/18 17:05; Admin Dose 8,000 UNITS; Start 07/16/18 at 17:00 Midodrine (Proamatine) 10 mg TID@09,13,17 PO Last administered on 07/22/18 09:46; Admin Dose 10 MG; Start 07/16/18 at 13:00 Morphine Sulfate (morphine) 4 mg Q2H PRN IV SEVERE PAIN LEVEL 7-10 Last administered on 07/23/18 05:11; Admin Dose 4 MG; Start 07/17/18 at 09:00 Alteplase, Recombinant (Cathflo (Activase)) 2 mg MAY REPEAT X1 PRN CATHETER IF CATHETER REMAINS OCCULUDED; Start 07/22/18 at 17:30 EDILMA CASIANO Jul 23, 2018 13:35
[2018-07-23] MEDS: HEPARIN 1000 UNITS/ML 10 ML INJ CATHETER SCH (14:03)
--- NOTE | 2018-07-23 16:39 | CONS ---
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 Last used for HD in 04/2018. 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 The culture of the tip of the removed catheter, blood cultures and swab of the catheter site were negative. Pt completed an empiric course of renally dosed pip/tazo (06/13/2018-06/18/2018) - h/o placement of a permacath on R chest wall on 06/23/2018 - h/o creation of AVF [place] [facility] [place] - h/o 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 Pt took renally dosed valACV (07/15/2018-07/17/2018) - adverse reaction to vancomycin (pruritus) - adverse reaction to linezolid (thrombocytopenia). Linezolid was discontinued (06/12/2018-06/17/2018) Recommendations: - continue renally dosed cefazolin (07/15/2018-) for bacteremia due to MSSA through 07/29/2018 Management d/w patient and with Dr. Herrera Consultation Date/Type/Reason Admit Date/Time Jul 13, 2018 at 05:59 Initial Consult Date 07/14/18 Type of Consult Infectious Disease Requesting Provider: LUANNE WALTER MD Date/Time of Note DATE: 07/23/18 TIME: 16:38 24 HR Interval Summary Free Text/Dictation HD done today and scheduled again tomorrow per pt. States R thigh pain has improved and rates it 08/03. No other complaints. Exam/Review of Systems Exam Vitals Vital Signs Date Temp Pulse Resp B/P (MAP) Pulse Ox O2 O2 Flow FiO2 Time Delivery Rate 07/23/18 103 13:55 07/23/18 18 92/67 (75) 95 Room Air 13:50 07/23/18 98.1 13:47 Intake and Output 07/22/18 07/22/18 07/23/18 1515:00 23:00 07:00 IntakeIntake Total 310 ml 340 ml BalanceBalance 310 ml 340 ml Exam Constitutional: alert, oriented, well developed Psych: no complaints, nl mood/affect Head: normocephalic, atraumatic, other (alopecia noted) Eyes: nl conjunctiva, nl lids, nl sclera ENMT: nl external ears & nose, nl lips & teeth, nl nasal mucosa & septum, mucosa pink and moist Neck: supple, non-tender Respiratory: clear to auscultation, normal air movement Cardiovascular: regular rate and rhythm, nl pulses Gastrointestinal: soft, non-tender Genitourinary - Female: other (No Stephen; R femoral HD catheter c/d/i with TTP) Musculoskeletal: nl extremities to inspection Extremities: normal pulses, other (LUE AVF noted with no thrill, non-TTP); No cyanosis, No clubbing, No edema 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: nl mental status, nl speech, nl strength Skin: nl turgor, other (R chest wound from previous HD catheter is pink with no drainage, JUAN [place]IEGO with no TTP; multiple tattoos including a dolphin on RLQ abdomen) Results Result Diagram: 07/22/1844007/22/18440 Medications Medication Current Medications Acetaminophen (Tylenol Tab) 650 mg Q4H PRN PO MILD PAIN(1-3)OR ELEVATED TEMP Last administered on 07/14/18 02:53; Admin Dose 650 MG; Start 07/13/18 at 09:00 Ondansetron HCl (Zofran Inj) 4 mg Q6H PRN IV NAUSEA AND/OR VOMITING Last administered on 07/17/18 19:17; Admin Dose 4 MG; Start 07/13/18 at 09:00 Acetaminophen/ Hydrocodone Bitart ([place] (5/325)) 1 tab Q4H PRN PO MODERATE PAIN LEVEL 4-6 Last administered on 07/13/18 16:21; Admin Dose 1 TAB; Start 07/13/18 at 09:00 Sevelamer Carbonate (Renvela) 2,400 mg WITH MEALS PO Last administered on 07/23/18 11:21; Admin Dose 2,400 MG; Start 07/13/18 at 11:40 Multivit/Ca Carb/ B Cmplx/FA/Prenat (Aminah-Tanisha) 1 tab DAILY PO Last administered on 07/23/18 08:20; Admin Dose 1 TAB; Start 07/13/18 at 09:00 Lidocaine (Lidoderm) 1 patch DAILY TD Last administered on 07/20/18 09:33; Admin Dose 1 PATCH; Start 07/13/18 at 21:30 Bromocriptine Mesylate (Parlodel) 2.5 mg QHS PO Last administered on 07/22/18 21:12; Admin Dose 2.5 MG; Start 07/14/18 at 21:00 Naproxen (Naprosyn) 500 mg BID PRN PO PAIN AND/OR INFLAMMATION; Start 07/13/18 at 23:30 Pantoprazole (Protonix Tab) 40 mg DAILY@06 PO Last administered on 07/23/18 05:10; Admin Dose 40 MG; Start 07/14/18 at 06:00 Zolpidem Tartrate (Ambien) 10 mg QHS PRN PO INSOMNIA; Start 07/13/18 at 23:30 Diphenhydramine HCl (Benadryl) 50 mg Q6H PRN IV itchiness Last administered on 07/23/18 11:20; Admin Dose 50 MG; Start 07/14/18 at 03:00 Heparin Sodium (Porcine) (Heparin (1000 Units/ml)) 3,000 unit AFTER DIALYSIS CATHETER Last administered on 07/23/18 14:03; Admin Dose 3,000 UNIT; Start 07/14/18 at 16:30 Calcitriol (Rocaltrol) 0.25 mcg DAILY PO Last administered on 07/23/18 08:20; Admin Dose 0.25 MCG; Start 07/15/18 at 09:00 Cefazolin Sodium 50 ml @ 100 mls/hr Q24H IVPB Last administered on 07/22/18 21:12; Admin Dose 100 MLS/HR; Start 07/15/18 at 21:00 Epoetin Maxwell (Epogen (Esrd)) 8,000 units TuThSa@17 SC Last administered on 07/21/18 17:05; Admin Dose 8,000 UNITS; Start 07/16/18 at 17:00 Midodrine (Proamatine) 10 mg TID@09,13,17 PO Last administered on 07/23/18 14:38; Admin Dose 10 MG; Start 07/16/18 at 13:00 Morphine Sulfate (morphine) 4 mg Q2H PRN IV SEVERE PAIN LEVEL 7-10 Last administered on 07/23/18 14:28; Admin Dose 4 MG; Start 07/17/18 at 09:00 Alteplase, Recombinant (Cathflo (Activase)) 2 mg MAY REPEAT X1 PRN CATHETER IF CATHETER REMAINS OCCULUDED; Start 07/22/18 at 17:30 EDIE BUENO NP Jul 23, 2018 16:39
[2018-07-23] MEDS: EPOETIN 4000 UNITS/1 ML INJ (ESRD) SC SCH (17:25)
[2018-07-23] MEDS: BROMOCRIPTINE 2.5 MG TAB PO SCH (21:07)
[2018-07-23] MEDS: CEFAZOLIN 1 GM/50 ML (PMX) 50 ML IVPB SCH (21:07)
--- NOTE | 2018-07-23 23:47 | QN ---
Documentation Comment Pt remains a dificult management problem BP Stable, reason for continued hospitalization not clear, ok for discharge If pt still here, will dialyze in AM CAMERON ISIDRO MD Jul 23, 2018 23:47
[2018-07-24 02:30] VITALS: BP 83/50; PULSE 75; RESP 19
[2018-07-24 02:45] VITALS: BP 99/62; PULSE 70
[2018-07-24] MEDS: morphine 4 MG/ML VIAL IV PRN ×5 (05:17→23:05)
[2018-07-24] MEDS: DIPHENHYDRAMINE 50 MG INJ IV PRN ×4 (05:18→23:03)
[2018-07-24] MEDS: PANTOPRAZOLE (EC) 40 MG TAB PO SCH (05:20)
[2018-07-24 08:03] VITALS: BP 93/53; PULSE 64; RESP 18
[2018-07-24] MEDS: MULTIVIT/CA CARB/B CMPLX/FA TAB PO SCH (08:27)
[2018-07-24] MEDS: CALCITRIOL 0.25 MCG CAP PO SCH (08:27)
[2018-07-24] MEDS: SEVELAMER CARBONATE 800 MG TABLET PO SCH ×3 (08:27→18:23)
[2018-07-24] MEDS: MIDODRINE 5 MG TAB PO SCH ×3 (08:32→17:00)
[2018-07-24] MEDS: LIDOCAINE 5% PATCH TD SCH (08:39)
[2018-07-24] MEDS ORDERED: DIPHENHYDRAMINE 50 MG INJ IV ONE (10:00)
--- NOTE | 2018-07-24 10:24 | QN ---
Documentation Comment No new complaints, afebrile BP running lowish, pt on Midodrin HD in AM, orders written CAMERON ISIDRO MD Jul 24, 2018 10:24
--- NOTE | 2018-07-24 13:14 | PN ---
Date/Time of Note Date/Time of Note DATE: 07/24/18 TIME: 13:14 Assessment/Plan VTE Prophylaxis Risk score (from Ns)>0 risk: 4 SCD applied (from Ns): Yes SCD contraindicated: other Pharmacological prophylaxis: other Pharm contraindication: other Lines/Catheters IV Catheter Type (from Nrsg): Mid Line Central line still needed: Yes Urinary Cath still in place: No Assessment/Plan Assessment/Plan - Hyperkalemia -Per nephrology -Line sepsis with MSSA bacteremia, continue cefazolin. Dr Leone is following in infection disease consultation. Right chest Perez catheter d/madisyn. s/p R fem Permacath placement. No endocarditis per TTE. -Hemodialysis dependent end-stage renal disease. is following in nephrology consultation. -History of hyperparathyroidism, status post subtotal parathyroidectomy of the right superior and inferior glands, partial left inferior gland in June 2016. Status post left upper and lower parathyroidectomy and partial left thyroid lobectomy in November [address] Morales, ENT. Dr. De La Fuente is asked to see pt in endocrinology consultation. -Left upper extremity AV fistula nonfunctioning, Dr. Francisco is following in vascular surgery consultation. -Leukemia Further recommendations based on clinical course. Plan of care discussed with Dr. Turner. Result Diagram: 07/22/18 0441 07/22/18 044 Subjective 24 Hr Interval Summary Free Text/Dictation nad resting in bed c/o right groin pain- effective pain control no new events repoted last night Eyes: no complaints ENT: no complaints Respiratory: no complaints Cardiovascular: no complaints Gastrointestinal: no complaints Genitourinary: no complaints, other Musculoskeletal: no complaints Skin: no complaints, other (c/o right groin pain) Neurologic: no complaints Lymphatic: no complaints Immunologic: no complaints Exam/Review of Systems Exam Vitals Vital Signs Date Temp Pulse Resp B/P (MAP) Pulse Ox O2 O2 Flow FiO2 Time Delivery Rate 07/24/18 98.7 64 18 93/53 (66) 90 Room Air 08:03 Intake and Output 07/23/18 07/23/18 07/24/18 1414:59 22:59 06:59 IntakeIntake Total 100 ml 350 ml 180 ml OutputOutput Total 2900 ml BalanceBalance -2800 ml 350 ml 180 ml Constitutional: alert, well developed Psych: nl mood/affect Head: atraumatic Eyes: nl lids, nl sclera ENMT: nl external ears & nose Neck: non-tender Respiratory: clear to auscultation Cardiovascular: nl pulses, other (s1s2) Gastrointestinal: soft, non-tender Musculoskeletal: other (right groin pain) Extremities: normal pulses 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: nl speech Lymph: nontender Medications Medication Current Medications Acetaminophen (Tylenol Tab) 650 mg Q4H PRN PO MILD PAIN(1-3)OR ELEVATED TEMP Last administered on 07/14/18 02:53; Admin Dose 650 MG; Start 07/13/18 at 09:00 Ondansetron HCl (Zofran Inj) 4 mg Q6H PRN IV NAUSEA AND/OR VOMITING Last administered on 07/17/18 19:17; Admin Dose 4 MG; Start 07/13/18 at 09:00 Acetaminophen/ Hydrocodone Bitart ([place] (5/325)) 1 tab Q4H PRN PO MODERATE PAIN LEVEL 4-6 Last administered on 07/13/18 16:21; Admin Dose 1 TAB; Start 07/13/18 at 09:00 Sevelamer Carbonate (Renvela) 2,400 mg WITH MEALS PO Last administered on 07/24/18 11:19; Admin Dose 2,400 MG; Start 07/13/18 at 11:40 Multivit/Ca Carb/ B Cmplx/FA/Prenat (Aminah-Tanisha) 1 tab DAILY PO Last administered on 07/24/18 08:27; Admin Dose 1 TAB; Start 07/13/18 at 09:00 Lidocaine (Lidoderm) 1 patch DAILY TD Last administered on 07/20/18 09:33; Admin Dose 1 PATCH; Start 07/13/18 at 21:30 Bromocriptine Mesylate (Parlodel) 2.5 mg QHS PO Last administered on 07/23/18 21:07; Admin Dose 2.5 MG; Start 07/14/18 at 21:00 Naproxen (Naprosyn) 500 mg BID PRN PO PAIN AND/OR INFLAMMATION; Start 07/13/18 at 23:30 Pantoprazole (Protonix Tab) 40 mg DAILY@06 PO Last administered on 07/24/18 05:20; Admin Dose 40 MG; Start 07/14/18 at 06:00 Zolpidem Tartrate (Ambien) 10 mg QHS PRN PO INSOMNIA; Start 07/13/18 at 23:30 Diphenhydramine HCl (Benadryl) 50 mg Q6H PRN IV itchiness Last administered on 07/24/18 11:19; Admin Dose 50 MG; Start 07/14/18 at 03:00 Heparin Sodium (Porcine) (Heparin (1000 Units/ml)) 3,000 unit AFTER DIALYSIS CATHETER Last administered on 07/23/18 14:03; Admin Dose 3,000 UNIT; Start 07/14/18 at 16:30 Calcitriol (Rocaltrol) 0.25 mcg DAILY PO Last administered on 07/24/18 08:27; Admin Dose 0.25 MCG; Start 07/15/18 at 09:00 Cefazolin Sodium 50 ml @ 100 mls/hr Q24H IVPB Last administered on 07/23/18 21:07; Admin Dose 100 MLS/HR; Start 07/15/18 at 21:00 Epoetin Maxwell (Epogen (Esrd)) 8,000 units TuThSa@17 SC Last administered on 07/23/18 17:25; Admin Dose 8,000 UNITS; Start 07/16/18 at 17:00 Midodrine (Proamatine) 10 mg TID@09,13,17 PO Last administered on 07/24/18 08:32; Admin Dose 10 MG; Start 07/16/18 at 13:00 Morphine Sulfate (morphine) 4 mg Q2H PRN IV SEVERE PAIN LEVEL 7-10 Last administered on 07/24/18 12:50; Admin Dose 4 MG; Start 07/17/18 at 09:00 Alteplase, Recombinant (Cathflo (Activase)) 2 mg MAY REPEAT X1 PRN CATHETER IF CATHETER REMAINS OCCULUDED; Start 07/22/18 at 17:30 EDILMA CASIANO Jul 24, 2018 13:14
[2018-07-24 15:20] VITALS: BP 103/60; PULSE 77; RESP 18
[2018-07-24 19:55] VITALS: BP 100/55; PULSE 68; RESP 16
[2018-07-24] MEDS: BROMOCRIPTINE 2.5 MG TAB PO SCH (20:47)
[2018-07-24] MEDS: CEFAZOLIN 1 GM/50 ML (PMX) 50 ML IVPB SCH (20:47)
--- NOTE | 2018-07-24 22:59 | CONS ---
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 Last used for HD in 04/2018. 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 The culture of the tip of the removed catheter, blood cultures and swab of the catheter site were negative. Pt completed an empiric course of renally dosed pip/tazo (06/13/2018-06/18/2018) - h/o placement of a permacath on R chest wall on 06/23/2018 - h/o creation of AVF in [facility] [place] in 2016 - h/o 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 Pt took renally dosed valACV (07/15/2018-07/17/2018) - adverse reaction to vancomycin (pruritus) - adverse reaction to linezolid (thrombocytopenia). Linezolid was discontinued (06/12/2018-06/17/2018) Recommendations: - continue renally dosed cefazolin (07/15/2018-) for bacteremia due to MSSA through 07/29/2018 Management d/w patient, BRIANA Briggs, and with Dr. Herrera Consultation Date/Type/Reason Admit Date/Time Jul 13, 2018 at 05:59 Initial Consult Date 07/14/18 Type of Consult Infectious Disease Requesting Provider: LUANNE WALTER MD Date/Time of Note DATE: 07/24/18 TIME: 22:57 24 HR Interval Summary Free Text/Dictation HD catheter was declotted yesterday and working well with HD done yesterday. No new issues per d/w nursing. Pt reports R thigh pain is improved "but when it hurts, it really hurts". Rates pain 5/10 and pt states she due for pain medication soon. Exam/Review of Systems Exam Vitals Vital Signs Date Temp Pulse Resp B/P (MAP) Pulse Ox O2 O2 Flow FiO2 Time Delivery Rate 07/24/18 98.2 68 16 100/55 98 Room Air 19:55 (70) Intake and Output 07/23/18 07/23/18 07/24/18 1515:00 23:00 07:00 IntakeIntake Total 100 ml 350 ml 180 ml OutputOutput Total 2900 ml BalanceBalance -2800 ml 350 ml 180 ml Exam Constitutional: alert, oriented, well developed Psych: no complaints, nl mood/affect Head: normocephalic, atraumatic, other (+alopecia) Eyes: nl conjunctiva, nl lids, nl sclera ENMT: nl external ears & nose, nl lips & teeth, nl nasal mucosa & septum, mucosa pink and moist Neck: supple, non-tender Respiratory: clear to auscultation, normal air movement Cardiovascular: regular rate and rhythm, nl pulses Gastrointestinal: soft, non-tender Genitourinary - Female: other (No Stephen; R femoral HD catheter c/d/i with TTP) Musculoskeletal: nl extremities to inspection Extremities: normal pulses, other (LUE AVF noted with no thrill, non-TTP); No cyanosis, No clubbing, No edema 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: nl mental status, nl speech, nl strength Skin: nl turgor, other (R chest wound from previous HD catheter is pink with no drainage, [place]UAN [place]IEGO with no TTP; multiple tattoos including a dolphin on RLQ abdomen) Results Result Diagram: 07/22/1844007/22/18440 Medications Medication Current Medications Acetaminophen (Tylenol Tab) 650 mg Q4H PRN PO MILD PAIN(1-3)OR ELEVATED TEMP Last administered on 07/14/18 02:53; Admin Dose 650 MG; Start 07/13/18 at 09:00 Ondansetron HCl (Zofran Inj) 4 mg Q6H PRN IV NAUSEA AND/OR VOMITING Last administered on 07/17/18 19:17; Admin Dose 4 MG; Start 07/13/18 at 09:00 Acetaminophen/ Hydrocodone Bitart ([place] (5/325)) 1 tab Q4H PRN PO MODERATE PAIN LEVEL 4-6 Last administered on 07/13/18 16:21; Admin Dose 1 TAB; Start 07/13/18 at 09:00 Sevelamer Carbonate (Renvela) 2,400 mg WITH MEALS PO Last administered on 07/24/18 18:23; Admin Dose 2,400 MG; Start 07/13/18 at 11:40 Multivit/Ca Carb/ B Cmplx/FA/Prenat (Aminah-Tanisha) 1 tab DAILY PO Last administered on 07/24/18 08:27; Admin Dose 1 TAB; Start 07/13/18 at 09:00 Lidocaine (Lidoderm) 1 patch DAILY TD Last administered on 07/20/18 09:33; Admin Dose 1 PATCH; Start 07/13/18 at 21:30 Bromocriptine Mesylate (Parlodel) 2.5 mg QHS PO Last administered on 07/24/18 20:47; Admin Dose 2.5 MG; Start 07/14/18 at 21:00 Naproxen (Naprosyn) 500 mg BID PRN PO PAIN AND/OR INFLAMMATION; Start 07/13/18 at 23:30 Pantoprazole (Protonix Tab) 40 mg DAILY@06 PO Last administered on 07/24/18 05:20; Admin Dose 40 MG; Start 07/14/18 at 06:00 Zolpidem Tartrate (Ambien) 10 mg QHS PRN PO INSOMNIA; Start 07/13/18 at 23:30 Diphenhydramine HCl (Benadryl) 50 mg Q6H PRN IV itchiness Last administered on 07/24/18 17:00; Admin Dose 50 MG; Start 07/14/18 at 03:00 Heparin Sodium (Porcine) (Heparin (1000 Units/ml)) 3,000 unit AFTER DIALYSIS CATHETER Last administered on 07/23/18 14:03; Admin Dose 3,000 UNIT; Start 07/14/18 at 16:30 Calcitriol (Rocaltrol) 0.25 mcg DAILY PO Last administered on 07/24/18 08:27; Admin Dose 0.25 MCG; Start 07/15/18 at 09:00 Cefazolin Sodium 50 ml @ 100 mls/hr Q24H IVPB Last administered on 07/24/18 20:47; Admin Dose 100 MLS/HR; Start 07/15/18 at 21:00 Epoetin Maxwell (Epogen (Esrd)) 8,000 units TuThSa@17 SC Last administered on 07/23/18 17:25; Admin Dose 8,000 UNITS; Start 07/16/18 at 17:00 Midodrine (Proamatine) 10 mg TID@09,13,17 PO Last administered on 07/24/18 13:41; Admin Dose 10 MG; Start 07/16/18 at 13:00 Morphine Sulfate (morphine) 4 mg Q2H PRN IV SEVERE PAIN LEVEL 7-10 Last administered on 07/24/18 17:00; Admin Dose 4 MG; Start 07/17/18 at 09:00 Alteplase, Recombinant (Cathflo (Activase)) 2 mg MAY REPEAT X1 PRN CATHETER IF CATHETER REMAINS OCCULUDED; Start 07/22/18 at 17:30 EDIE BUENO NP Jul 24, 2018 22:59
[2018-07-25] VITALS (21 sets, daily range): BP systolic 74–146; BP diastolic 48–104; PULSE 64–100; RESP 16–20
[2018-07-25] MEDS: PANTOPRAZOLE (EC) 40 MG TAB PO SCH (05:06)
[2018-07-25] MEDS: DIPHENHYDRAMINE 50 MG INJ IV PRN ×4 (05:07→23:46)
[2018-07-25] MEDS: morphine 4 MG/ML VIAL IV PRN ×5 (05:09→23:34)
[2018-07-25] MEDS: MULTIVIT/CA CARB/B CMPLX/FA TAB PO SCH (08:33)
[2018-07-25] MEDS: CALCITRIOL 0.25 MCG CAP PO SCH (08:33)
[2018-07-25] MEDS: SEVELAMER CARBONATE 800 MG TABLET PO SCH ×3 (08:33→17:24)
[2018-07-25] MEDS ORDERED: DIPHENHYDRAMINE 50 MG INJ IV ONE (09:00)
[2018-07-25] MEDS: LIDOCAINE 5% PATCH TD SCH (09:00)
[2018-07-25] MEDS: MIDODRINE 5 MG TAB PO SCH ×3 (09:21→17:20)
[2018-07-25] MEDS: HEPARIN 1000 UNITS/ML 10 ML INJ CATHETER SCH (11:21)
--- NOTE | 2018-07-25 11:30 | CONS ---
Assessment/Plan Assessment/Plan Hospital Course (Demo Recall) EMR reviewed. Case d/w [employer]. Care coordinated and directed. Consultation Date/Type/Reason Admit Date/Time Jul 13, 2018 at 05:59 Initial Consult Date 07/14/18 Type of Consult ID Requesting Provider: LUANNE WALTER MD Date/Time of Note DATE: 07/25/18 TIME: 11:30 Exam/Review of Systems Exam Vitals Vital Signs Date Temp Pulse Resp B/P (MAP) Pulse Ox O2 O2 Flow FiO2 Time Delivery Rate 07/25/18 97 11:10 07/25/18 97/72 (80) Room Air 08:00 07/25/18 97.6 94 07:13 Intake and Output 07/24/18 07/24/18 07/25/18 1515:00 23:00 07:00 IntakeIntake Total 170 ml BalanceBalance 170 ml Results Result Diagram: 07/25/18 0730 07/25/18 0730 Results 24hrs Laboratory Tests Test 07/25/18 07:30 White Blood Count 6.3 # Red Blood Count 3.01 L Hemoglobin 9.9 L Hematocrit 31.6 L Mean Corpuscular Volume 105.0 H Mean Corpuscular Hemoglobin 32.9 Mean Corpuscular Hemoglobin Concent 31.3 L Red Cell Distribution Width 16.0 H Platelet Count 303 Mean Platelet Volume 10.4 Immature Granulocytes % 1.000 H Neutrophils % 57.2 Lymphocytes % 24.2 Monocytes % 11.2 H Eosinophils % 5.6 Basophils % 0.8 Nucleated Red Blood Cells % 0.0 Immature Granulocytes # 0.060 H Neutrophils # 3.6 Lymphocytes # 1.5 Monocytes # 0.7 Eosinophils # 0.4 Basophils # 0.1 Nucleated Red Blood Cells # 0.0 Sodium Level 139 Potassium Level 5.3 H Chloride Level 100 Carbon Dioxide Level 23 Anion Gap 16 H Blood Urea Nitrogen 47 H Creatinine 10.81 H Est Glomerular Filtrat Rate mL/min 4 L Glucose Level 74 Calcium Level 8.0 L Medications Medication Current Medications Acetaminophen (Tylenol Tab) 650 mg Q4H PRN PO MILD PAIN(1-3)OR ELEVATED TEMP Last administered on 07/14/18at 02:53; Admin Dose 650 MG; Start 07/13/18 at 09:00 Ondansetron HCl (Zofran Inj) 4 mg Q6H PRN IV NAUSEA AND/OR VOMITING Last administered on 07/17/18 19:17; Admin Dose 4 MG; Start 07/13/18 at 09:00 Acetaminophen/ Hydrocodone Bitart ([place] (5/325)) 1 tab Q4H PRN PO MODERATE PAIN LEVEL 4-6 Last administered on 07/13/18 16:21; Admin Dose 1 TAB; Start 07/13/18 at 09:00 Sevelamer Carbonate (Renvela) 2,400 mg WITH MEALS PO Last administered on 07/25/18 08:33; Admin Dose 2,400 MG; Start 07/13/18 at 11:40 Multivit/Ca Carb/ B Cmplx/FA/Prenat (Aminah-Tanisha) 1 tab DAILY PO Last administered on 07/25/18 08:33; Admin Dose 1 TAB; Start 07/13/18 at 09:00 Lidocaine (Lidoderm) 1 patch DAILY TD Last administered on 07/20/18 09:33; Admin Dose 1 PATCH; Start 07/13/18 at 21:30 Bromocriptine Mesylate (Parlodel) 2.5 mg QHS PO Last administered on 07/24/18 20:47; Admin Dose 2.5 MG; Start 07/14/18 at 21:00 Naproxen (Naprosyn) 500 mg BID PRN PO PAIN AND/OR INFLAMMATION; Start 07/13/18 at 23:30 Pantoprazole (Protonix Tab) 40 mg DAILY@06 PO Last administered on 07/25/18 05:06; Admin Dose 40 MG; Start 07/14/18 at 06:00 Zolpidem Tartrate (Ambien) 10 mg QHS PRN PO INSOMNIA; Start 07/13/18 at 23:30 Diphenhydramine HCl (Benadryl) 50 mg Q6H PRN IV itchiness Last administered on 07/25/18 05:07; Admin Dose 50 MG; Start 07/14/18 at 03:00 Heparin Sodium (Porcine) (Heparin (1000 Units/ml)) 3,000 unit AFTER DIALYSIS CATHETER Last administered on 07/25/18 11:21; Admin Dose 4,500 UNIT; Start 07/14/18 at 16:30 Calcitriol (Rocaltrol) 0.25 mcg DAILY PO Last administered on 4/1/19at 08:33; Admin Dose 0.25 MCG; Start 07/15/18 at 09:00 Cefazolin Sodium 50 ml @ 100 mls/hr Q24H IVPB Last administered on 07/24/18at 20:47; Admin Dose 100 MLS/HR; Start 07/15/18 at 21:00 Epoetin Maxwell (Epogen (Esrd)) 8,000 units TuThSa@17 SC Last administered on 07/23/18at 17:25; Admin Dose 8,000 UNITS; Start 07/16/18 at 17:00 Midodrine (Proamatine) 10 mg TID@09,13,17 PO Last administered on 07/25/18at 09:21; Admin Dose 10 MG; Start 07/16/18 at 13:00 Morphine Sulfate (morphine) 4 mg Q2H PRN IV SEVERE PAIN LEVEL 7-10 Last administered on 07/25/18at 05:09; Admin Dose 4 MG; Start 07/17/18 at 09:00 Alteplase, Recombinant (Cathflo (Activase)) 2 mg MAY REPEAT X1 PRN CATHETER IF CATHETER REMAINS OCCULUDED; Start 07/22/18 at 17:30 MUMTAZ LOPEZ MD Jul 25, 2018 11:30
--- NOTE | 2018-07-25 15:31 | QN ---
Documentation Comment Pt c/o pain rt groin BP ok on Midiodrin Pt getting HD at present, HD RN having problem with Catheter. Spoke to mother in office for a long time. As discussed with father Hakeem, the only option emains is Peritoneal Dialysis to which she's opposed I discussed case with Dr Jones who also spoke mother CAMERON ISIDRO MD Jul 25, 2018 15:31
--- NOTE | 2018-07-25 15:47 | CONS ---
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 Last used for HD in 04/2018. 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 The culture of the tip of the removed catheter, blood cultures and swab of the catheter site were negative. Pt completed an empiric course of renally dosed pip/tazo (06/13/2018-06/18/2018) - h/o placement of a permacath on R chest wall on 06/23/2018 - h/o [place] of [place] [facility] [place] - h/o 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 Pt took renally dosed valACV (07/15/2018-07/17/2018) - adverse reaction to vancomycin (pruritus) - adverse reaction to linezolid (thrombocytopenia). Linezolid was discontinued (06/12/2018-06/17/2018) Recommendations: - continue renally dosed cefazolin (07/15/2018-) for bacteremia due to MSSA through 07/29/2018 Management d/w patient, and with Dr. Herrera Thank you Consultation Date/Type/Reason Admit Date/Time Jul 13, 2018 at 05:59 Initial Consult Date 07/14/18 Type of Consult ID Requesting Provider: LUANNE WALTER MD Date/Time of Note DATE: 07/25/18 TIME: 15:45 24 HR Interval Summary Free Text/Dictation The patient was on a cellphone call and continued to speak on the phone during assessment. Exam/Review of Systems Exam Vitals Vital Signs Date Temp Pulse Resp B/P (MAP) Pulse Ox O2 O2 Flow FiO2 Time Delivery Rate 07/25/18 98.2 88 18 96/53 (67) 93 Room Air 14:16 Intake and Output 07/24/18 07/24/18 07/25/18 1515:00 23:00 07:00 IntakeIntake Total 170 ml BalanceBalance 170 ml Allergies Coded Allergies vancomycin (Unverified Allergy, Severe, 07/13/18) pruritus pineapple (Unverified Allergy, Mild, 07/13/18) watermelon (Unverified Allergy, Unknown, 07/13/18) peach (Unverified Adverse Reaction, Unknown, HEADACHE, 07/13/18) Exam Constitutional: alert, oriented, well developed Psych: no complaints, nl mood/affect Head: normocephalic, atraumatic Eyes: nl conjunctiva, nl lids, nl sclera ENMT: nl external ears & nose, nl nasal mucosa & septum, mucosa pink and moist (no thrush) Neck: supple, non-tender Respiratory: clear to auscultation, normal air movement Cardiovascular: regular rate and rhythm, nl pulses Gastrointestinal: soft, non-tender, bowel sounds Genitourinary - Female: other (No f/c; R femoral HD catheter site is c/d/i, eccyhmosis noted around the site) Musculoskeletal: nl extremities to inspection Extremities: normal pulses, other (LUE avf noted) 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: RESPIRATORY SCIENTIST II-XII intact, nl mental status, nl speech, nl strength Skin: nl turgor, other (Right chest wall scab from previous HD cath, non-tender to palpation. No induration, heat, swelling, or erythema noted. Open to air); No rash or lesions Results Result Diagram: 07/25/18 0730 07/25/18 0730 Results 24hrs Laboratory Tests Test 07/25/18 07:30 White Blood Count 6.3 # Red Blood Count 3.01 L Hemoglobin 9.9 L Hematocrit 31.6 L Mean Corpuscular Volume 105.0 H Mean Corpuscular Hemoglobin 32.9 Mean Corpuscular Hemoglobin Concent 31.3 L Red Cell Distribution Width 16.0 H Platelet Count 303 Mean Platelet Volume 10.4 Immature Granulocytes % 1.000 H Neutrophils % 57.2 Lymphocytes % 24.2 Monocytes % 11.2 H Eosinophils % 5.6 Basophils % 0.8 Nucleated Red Blood Cells % 0.0 Immature Granulocytes # 0.060 H Neutrophils # 3.6 Lymphocytes # 1.5 Monocytes # 0.7 Eosinophils # 0.4 Basophils # 0.1 Nucleated Red Blood Cells # 0.0 Sodium Level 139 Potassium Level 5.3 H Chloride Level 100 Carbon Dioxide Level 23 Anion Gap 16 H Blood Urea Nitrogen 47 H Creatinine 10.81 H Est Glomerular Filtrat Rate mL/min 4 L Glucose Level 74 Calcium Level 8.0 L Medications Medication Current Medications Acetaminophen (Tylenol Tab) 650 mg Q4H PRN PO MILD PAIN(1-3)OR ELEVATED TEMP Last administered on 07/14/18 02:53; Admin Dose 650 MG; Start 07/13/18 at 09:00 Ondansetron HCl (Zofran Inj) 4 mg Q6H PRN IV NAUSEA AND/OR VOMITING Last administered on 07/17/18 19:17; Admin Dose 4 MG; Start 07/13/18 at 09:00 Acetaminophen/ Hydrocodone Bitart ([place] (5/325)) 1 tab Q4H PRN PO MODERATE PAIN LEVEL 4-6 Last administered on 07/13/18 16:21; Admin Dose 1 TAB; Start 07/13/18 at 09:00 Sevelamer Carbonate (Renvela) 2,400 mg WITH MEALS PO Last administered on 07/25/18 11:24; Admin Dose 2,400 MG; Start 07/13/18 at 11:40 Multivit/Ca Carb/ B Cmplx/FA/Prenat (Aminah-Tanisha) 1 tab DAILY PO Last administered on 07/25/18 08:33; Admin Dose 1 TAB; Start 07/13/18 at 09:00 Lidocaine (Lidoderm) 1 patch DAILY TD Last administered on 07/20/18 09:33; Admin Dose 1 PATCH; Start 07/13/18 at 21:30 Bromocriptine Mesylate (Parlodel) 2.5 mg QHS PO Last administered on 07/24/18 20:47; Admin Dose 2.5 MG; Start 07/14/18 at 21:00 Naproxen (Naprosyn) 500 mg BID PRN PO PAIN AND/OR INFLAMMATION; Start 07/13/18 at 23:30 Pantoprazole (Protonix Tab) 40 mg DAILY@06 PO Last administered on 07/25/18 05:06; Admin Dose 40 MG; Start 07/14/18 at 06:00 Zolpidem Tartrate (Ambien) 10 mg QHS PRN PO INSOMNIA; Start 07/13/18 at 23:30 Diphenhydramine HCl (Benadryl) 50 mg Q6H PRN IV itchiness Last administered on 07/25/18 11:24; Admin Dose 50 MG; Start 07/14/18 at 03:00 Heparin Sodium (Porcine) (Heparin (1000 Units/ml)) 3,000 unit AFTER DIALYSIS CATHETER Last administered on 07/25/18 11:21; Admin Dose 4,500 UNIT; Start 07/14/18 at 16:30 Calcitriol (Rocaltrol) 0.25 mcg DAILY PO Last administered on 07/25/18 08:33; Admin Dose 0.25 MCG; Start 07/15/18 at 09:00 Cefazolin Sodium 50 ml @ 100 mls/hr Q24H IVPB Last administered on 07/24/18 20:47; Admin Dose 100 MLS/HR; Start 07/15/18 at 21:00 Epoetin Maxwell (Epogen (Esrd)) 8,000 units TuThSa@17 SC Last administered on 07/23/18 17:25; Admin Dose 8,000 UNITS; Start 07/16/18 at 17:00 Midodrine (Proamatine) 10 mg TID@,13,17 PO Last administered on 4/1/19at 14:00; Admin Dose 10 MG; Start 07/16/18 at 13:00 Morphine Sulfate (morphine) 4 mg Q2H PRN IV SEVERE PAIN LEVEL 7-10 Last administered on 07/25/18at 14:08; Admin Dose 4 MG; Start 07/17/18 at 09:00 Alteplase, Recombinant (Cathflo (Activase)) 2 mg MAY REPEAT X1 PRN CATHETER IF CATHETER REMAINS OCCULUDED; Start 07/22/18 at 17:30 NELY ACOSTA NP Jul 25, 2018 15:47
--- NOTE | 2018-07-25 16:15 | PN ---
Date/Time of Note Date/Time of Note DATE: 07/25/18 TIME: 16:07 Assessment/Plan VTE Prophylaxis Risk score (from Ns)>0 risk: 4 SCD applied (from Ns): Yes Pharmacological prophylaxis: heparin Lines/Catheters IV Catheter Type (from Nrsg): Mid Line Central line still needed: Yes Urinary Cath still in place: No Assessment/Plan Hospital Course Patient with persistent hyperkalemia, on hemodialysis per Dr. Silverio via right femoral permacath,hypotension, generalized weakness and significant joint pain. Patient is continues on antibiotic for bacteremia. Pt refusing peritoneal dialysis which was suggested by nephrology consultants. Assessment/Plan -Line sepsis with MSSA bacteremia, continue cefazolin until 07/29/18. Dr Leone is following in infection disease consultation. Right chest Perez catheter d/madisyn. s/p R fem Permacath placement. No endocarditis per TTE. -Hemodialysis dependent end-stage renal disease. is following in nep hrology consultation. -History of hyperparathyroidism, status post subtotal parathyroidectomy of the right superior and inferior glands, partial left inferior gland in June 2016. Status post left upper and lower parathyroidectomy and partial left thyroid lobectomy in November [address] Morales, ENT. Dr. De La Fuente is asked to see pt in endocrinology consultation. -Left upper extremity AV fistula nonfunctioning, Dr. Francisco is following in vascular surgery consultation. -Leukemia, s/p hemotherapy, last cycle was in early 2018 Further recommendations based on clinical course. Plan of care discussed with Dr. Turner. Result Diagram: 07/25/18 0730 07/25/18 0730 Results 24hrs Laboratory Tests Test 07/25/18 07:30 White Blood Count 6.3 # Red Blood Count 3.01 L Hemoglobin 9.9 L Hematocrit 31.6 L Mean Corpuscular Volume 105.0 H Mean Corpuscular Hemoglobin 32.9 Mean Corpuscular Hemoglobin Concent 31.3 L Red Cell Distribution Width 16.0 H Platelet Count 303 Mean Platelet Volume 10.4 Immature Granulocytes % 1.000 H Neutrophils % 57.2 Lymphocytes % 24.2 Monocytes % 11.2 H Eosinophils % 5.6 Basophils % 0.8 Nucleated Red Blood Cells % 0.0 Immature Granulocytes # 0.060 H Neutrophils # 3.6 Lymphocytes # 1.5 Monocytes # 0.7 Eosinophils # 0.4 Basophils # 0.1 Nucleated Red Blood Cells # 0.0 Sodium Level 139 Potassium Level 5.3 H Chloride Level 100 Carbon Dioxide Level 23 Anion Gap 16 H Blood Urea Nitrogen 47 H Creatinine 10.81 H Est Glomerular Filtrat Rate mL/min 4 L Glucose Level 74 Calcium Level 8.0 L Exam/Review of Systems Exam Vitals Vital Signs Date Temp Pulse Resp B/P (MAP) Pulse Ox O2 O2 Flow FiO2 Time Delivery Rate 07/25/18 98.2 88 18 96/53 (67) 93 Room Air 14:16 Intake and Output 07/24/18 07/24/18 07/25/18 1515:00 23:00 07:00 IntakeIntake Total 170 ml BalanceBalance 170 ml Exam Constitutional: alert, oriented Respiratory: clear to auscultation Cardiovascular: nl pulses Gastrointestinal: soft, non-tender Extremities: normal pulses 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: nl mental status Additional Comments R fem Perma cath Results Results 24hrs Laboratory Tests Test 07/25/18 07:30 White Blood Count 6.3 # Red Blood Count 3.01 L Hemoglobin 9.9 L Hematocrit 31.6 L Mean Corpuscular Volume 105.0 H Mean Corpuscular Hemoglobin 32.9 Mean Corpuscular Hemoglobin Concent 31.3 L Red Cell Distribution Width 16.0 H Platelet Count 303 Mean Platelet Volume 10.4 Immature Granulocytes % 1.000 H Neutrophils % 57.2 Lymphocytes % 24.2 Monocytes % 11.2 H Eosinophils % 5.6 Basophils % 0.8 Nucleated Red Blood Cells % 0.0 Immature Granulocytes # 0.060 H Neutrophils # 3.6 Lymphocytes # 1.5 Monocytes # 0.7 Eosinophils # 0.4 Basophils # 0.1 Nucleated Red Blood Cells # 0.0 Sodium Level 139 Potassium Level 5.3 H Chloride Level 100 Carbon Dioxide Level 23 Anion Gap 16 H Blood Urea Nitrogen 47 H Creatinine 10.81 H Est Glomerular Filtrat Rate mL/min 4 L Glucose Level 74 Calcium Level 8.0 L Medications Medication Current Medications Acetaminophen (Tylenol Tab) 650 mg Q4H PRN PO MILD PAIN(1-3)OR ELEVATED TEMP Last administered on 07/14/18at 02:53; Admin Dose 650 MG; Start 07/13/18 at 09:00 Ondansetron HCl (Zofran Inj) 4 mg Q6H PRN IV NAUSEA AND/OR VOMITING Last administered on 07/17/18 19:17; Admin Dose 4 MG; Start 07/13/18 at 09:00 Acetaminophen/ Hydrocodone Bitart ([place] (5/325)) 1 tab Q4H PRN PO MODERATE PAIN LEVEL 4-6 Last administered on 07/13/18 16:21; Admin Dose 1 TAB; Start 07/13/18 at 09:00 Sevelamer Carbonate (Renvela) 2,400 mg WITH MEALS PO Last administered on 07/25/18 11:24; Admin Dose 2,400 MG; Start 07/13/18 at 11:40 Multivit/Ca Carb/ B Cmplx/FA/Prenat (Aminah-Tanisha) 1 tab DAILY PO Last administered on 07/25/18 08:33; Admin Dose 1 TAB; Start 07/13/18 at 09:00 Lidocaine (Lidoderm) 1 patch DAILY TD Last administered on 07/20/18 09:33; Admin Dose 1 PATCH; Start 07/13/18 at 21:30 Bromocriptine Mesylate (Parlodel) 2.5 mg QHS PO Last administered on 07/24/18 20:47; Admin Dose 2.5 MG; Start 07/14/18 at 21:00 Naproxen (Naprosyn) 500 mg BID PRN PO PAIN AND/OR INFLAMMATION; Start 07/13/18 at 23:30 Pantoprazole (Protonix Tab) 40 mg DAILY@06 PO Last administered on 07/25/18 05:06; Admin Dose 40 MG; Start 07/14/18 at 06:00 Zolpidem Tartrate (Ambien) 10 mg QHS PRN PO INSOMNIA; Start 07/13/18 at 23:30 Diphenhydramine HCl (Benadryl) 50 mg Q6H PRN IV itchiness Last administered on 07/25/18 11:24; Admin Dose 50 MG; Start 07/14/18 at 03:00 Heparin Sodium (Porcine) (Heparin (1000 Units/ml)) 3,000 unit AFTER DIALYSIS CA THETER Last administered on 07/25/18 11:21; Admin Dose 4,500 UNIT; Start 07/14/18 at 16:30 Calcitriol (Rocaltrol) 0.25 mcg DAILY PO Last administered on 07/25/18 08:33; Admin Dose 0.25 MCG; Start 07/15/18 at 09:00 Cefazolin Sodium 50 ml @ 100 mls/hr Q24H IVPB Last administered on 07/24/18 20:47; Admin Dose 100 MLS/HR; Start 07/15/18 at 21:00 Epoetin Maxwell (Epogen (Esrd)) 8,000 units TuThSa@17 SC Last administered on 07/23/18 17:25; Admin Dose 8,000 UNITS; Start 07/16/18 at 17:00 Midodrine (Proamatine) 10 mg TID@09,13,17 PO Last administered on 07/25/18 14:00; Admin Dose 10 MG; Start 07/16/18 at 13:00 Morphine Sulfate (morphine) 4 mg Q2H PRN IV SEVERE PAIN LEVEL 7-10 Last administered on 07/25/18 14:08; Admin Dose 4 MG; Start 07/17/18 at 09:00 Alteplase, Recombinant (Cathflo (Activase)) 2 mg MAY REPEAT X1 PRN CATHETER IF CATHETER REMAINS OCCULUDED; Start 07/22/18 at 17:30 ERICK ROBERTSON Jul 25, 2018 16:15
[2018-07-25] MEDS: BROMOCRIPTINE 2.5 MG TAB PO SCH (21:06)
[2018-07-25] MEDS: CEFAZOLIN 1 GM/50 ML (PMX) 50 ML IVPB SCH (21:06)
[2018-07-26 02:01] VITALS: BP 102/55; PULSE 72; RESP 16
[2018-07-26] MEDS: PANTOPRAZOLE (EC) 40 MG TAB PO SCH (05:47)
[2018-07-26] MEDS: morphine 4 MG/ML VIAL IV PRN ×5 (05:52→20:39)
[2018-07-26] MEDS: DIPHENHYDRAMINE 50 MG INJ IV PRN ×3 (05:52→18:04)
[2018-07-26 07:48] VITALS: BP 72/48; PULSE 75; RESP 18
[2018-07-26] MEDS: LIDOCAINE 5% PATCH TD SCH (09:00)
[2018-07-26] MEDS: SEVELAMER CARBONATE 800 MG TABLET PO SCH ×3 (09:09→17:55)
[2018-07-26] MEDS: MULTIVIT/CA CARB/B CMPLX/FA TAB PO SCH (09:10)
[2018-07-26] MEDS: MIDODRINE 5 MG TAB PO SCH ×3 (09:10→17:37)
[2018-07-26] MEDS: CALCITRIOL 0.25 MCG CAP PO SCH (09:10)
--- NOTE | 2018-07-26 14:46 | PN ---
Date/Time of Note Date/Time of Note DATE: 07/26/18 TIME: 14:37 Assessment/Plan VTE Prophylaxis Risk score (from Ns)>0 risk: 5 SCD applied (from Ns): Yes Pharmacological prophylaxis: heparin Lines/Catheters [facility] IV Urinary Cath still in place: No Assessment/Plan Hospital Course Patient complains of generalized pain and weakness encouraged to get out of bed continue physical therapy. Assessment/Plan -Line sepsis with MSSA bacteremia, continue cefazolin until 07/29/18. Dr Leone is following in infection disease consultation. Right chest Perez catheter d/madisyn. s/p R fem Permacath placement. No endocarditis per TTE. -Hemodialysis dependent end-stage renal disease. Dr. Silverio is following in nephrology consultation. -Hyperkalemia -History of hyperparathyroidism, status post subtotal parathyroidectomy of the right superior and inferior glands, partial left inferior gland in June 2016. Status post left upper and lower parathyroidectomy and partial left thyroid lobectomy in November [address] Morales, ENT. Dr. De La Fuente is asked to see pt in endocrinology consultation. 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 Francisco is following in vascular surgery consultation. Recommendations for graft placement as an outpatient after completing treatment for infection. -Leukemia, s/p hemotherapy, last cycle was in early 2018 Further recommendations based on clinical course. Plan of care discussed with Dr. Turner. Result Diagram: 07/25/18 0730 07/25/18 0730 Exam/Review of Systems Exam Vitals Vital Signs Date Temp Pulse Resp B/P (MAP) Pulse Ox O2 O2 Flow FiO2 Time Delivery Rate 07/26/18 98.0 75 18 72/48 (56) 95 Room Air 07:48 Intake and Output 07/25/18 07/25/18 07/26/18 1515:00 23:00 07:00 IntakeIntake Total 320 ml 300 ml 290 ml OutputOutput Total 3200 ml BalanceBalance -2880 ml 300 ml 290 ml Exam Constitutional: alert, oriented Respiratory: clear to auscultation Cardiovascular: nl pulses Gastrointestinal: soft, non-tender Extremities: normal pulses 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: nl mental status Additional Comments R fem Perma cath Medications Medication Current Medications Acetaminophen (Tylenol Tab) 650 mg Q4H PRN PO MILD PAIN(1-3)OR ELEVATED TEMP Last administered on 07/14/18 02:53; Admin Dose 650 MG; Start 07/13/18 at 09:00 Ondansetron HCl (Zofran Inj) 4 mg Q6H PRN IV NAUSEA AND/OR VOMITING Last administered on 07/17/18 19:17; Admin Dose 4 MG; Start 07/13/18 at 09:00 Acetaminophen/ Hydrocodone Bitart ([place] (5/325)) 1 tab Q4H PRN PO MODERATE PAIN LEVEL 4-6 Last administered on 07/13/18 16:21; Admin Dose 1 TAB; Start 07/13/18 at 09:00 Sevelamer Carbonate (Renvela) 2,400 mg WITH MEALS PO Last administered on 07/26/18 12:58; Admin Dose 2,400 MG; Start 07/13/18 at 11:40 Multivit/Ca Carb/ B Cmplx/FA/Prenat (Aminah-Tanisha) 1 tab DAILY PO Last administered on 07/26/18 09:10; Admin Dose 1 TAB; Start 07/13/18 at 09:00 Lidocaine (Lidoderm) 1 patch DAILY TD Last administered on 07/20/18 09:33; Admin Dose 1 PATCH; Start 07/13/18 at 21:30 Bromocriptine Mesylate (Parlodel) 2.5 mg QHS PO Last administered on 07/25/18 21:06; Admin Dose 2.5 MG; Start 07/14/18 at 21:00 Naproxen (Naprosyn) 500 mg BID PRN PO PAIN AND/OR INFLAMMATION; Start 07/13/18 at 23:30 Pantoprazole (Protonix Tab) 40 mg DAILY@06 PO Last administered on 07/26/18 05:47; Admin Dose 40 MG; Start 07/14/18 at 06:00 Zolpidem Tartrate (Ambien) 10 mg QHS PRN PO INSOMNIA; Start 07/13/18 at 23:30 Diphenhydramine HCl (Benadryl) 50 mg Q6H PRN IV itchiness Last administered on 07/26/18 12:01; Admin Dose 50 MG; Start 07/14/18 at 03:00 Heparin Sodium (Porcine) (Heparin (1000 Units/ml)) 3,000 unit AFTER DIALYSIS CATHETER Last administered on 07/25/18 11:21; Admin Dose 4,500 UNIT; Start 07/14/18 at 16:30 Calcitriol (Rocaltrol) 0.25 mcg DAILY PO Last administered on 07/26/18 09:10; Admin Dose 0.25 MCG; Start 07/15/18 at 09:00 Cefazolin Sodium 50 ml @ 100 mls/hr Q24H IVPB Last administered on 07/25/18 21:06; Admin Dose 100 MLS/HR; Start 07/15/18 at 21:00 Epoetin Maxwell (Epogen (Esrd)) 8,000 units TuThSa@17 SC Last administered on 07/23/18 17:25; Admin Dose 8,000 UNITS; Start 07/16/18 at 17:00 Midodrine (Proamatine) 10 mg TID@,13,17 PO Last administered on 07/26/18at 12:59; Admin Dose 10 MG; Start 07/16/18 at 13:00 Morphine Sulfate (morphine) 4 mg Q2H PRN IV SEVERE PAIN LEVEL 7-10 Last administered on 07/26/18 13:01; Admin Dose 4 MG; Start 07/17/18 at 09:00 Alteplase, Recombinant (Cathflo (Activase)) 2 mg MAY REPEAT X1 PRN CATHETER IF CATHETER REMAINS OCCULUDED; Start 07/22/18 at 17:30 ERICK ROBERTSON Jul 26, 2018 14:46
[2018-07-26 14:56] VITALS: BP 90/52; PULSE 78; RESP 18
--- NOTE | 2018-07-26 16:51 | CONS ---
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 Last used for HD in 04/2018. 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 The culture of the tip of the removed catheter, blood cultures and swab of the catheter site were negative. Pt completed an empiric course of renally dosed pip/tazo (06/13/2018-06/18/2018) - h/o placement of a permacath on R chest wall on 06/23/2018 - h/o creation [place] [facility] [place] - h/o 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 Pt took renally dosed valACV (07/15/2018-07/17/2018) - adverse reaction to vancomycin (pruritus) - adverse reaction to linezolid (thrombocytopenia). Linezolid was discontinued (06/12/2018-06/17/2018) Recommendations: - continue renally dosed cefazolin (07/15/2018-) for bacteremia due to MSSA through 07/29/2018 Management d/w patient, and her RN Consultation Date/Type/Reason Admit Date/Time Jul 13, 2018 at 05:59 Initial Consult Date 07/14/18 Type of Consult ID Requesting Provider: LUANNE WALTER MD Date/Time of Note DATE: 07/26/18 TIME: 16:49 24 HR Interval Summary Constitutional: no complaints Detailed Summary Eyes: no complaints ENT: no complaints Respiratory: no complaints Cardiovascular: no complaints Gastrointestinal: no complaints Genitourinary: other (HD catheter is working properly) Musculoskeletal: no complaints Skin: no complaints Neurologic: no complaints Exam/Review of Systems Exam Vitals Vital Signs Date Temp Pulse Resp B/P (MAP) Pulse Ox O2 O2 Flow FiO2 Time Delivery Rate 07/26/18 98.0 78 18 90/52 (65) 92 Room Air 14:56 Intake and Output 07/25/18 07/25/18 07/26/18 1515:00 23:00 07:00 IntakeIntake Total 320 ml 300 ml 290 ml OutputOutput Total 3200 ml BalanceBalance -2880 ml 300 ml 290 ml Constitutional: alert, oriented Psych: no complaints, nl mood/affect Head: normocephalic, other (alopecia) Eyes: nl conjunctiva, nl lids, nl sclera ENMT: nl external ears & nose, nl nasal mucosa & septum, mucosa pink and moist Neck: other (not swollen) Respiratory: other (normal resp effort) Cardiovascular: No edema Gastrointestinal: No distended Musculoskeletal: nl extremities to inspection, range of motion (normal) Extremities: No edema 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, nl mental status, nl speech Skin: nl turgor; No rash or lesions Results Result Diagram: 07/25/1830 07/25/18 07 Medications Medication Current Medications Acetaminophen (Tylenol Tab) 650 mg Q4H PRN PO MILD PAIN(1-3)OR ELEVATED TEMP [place] [facility] administered on 07/14/18at 02:53; Admin Dose 650 MG; Start 07/13/18 at 09:00 Ondansetron HCl (Zofran Inj) 4 mg Q6H PRN IV NAUSEA AND/OR VOMITING Last administered on 07/17/18 19:17; Admin Dose 4 MG; Start 07/13/18 at 09:00 Acetaminophen/ Hydrocodone Bitart ([place] (5/325)) 1 tab Q4H PRN PO MODERATE PAIN LEVEL 4-6 Last administered on 07/13/18 16:21; Admin Dose 1 TAB; Start 07/13/18 at 09:00 Sevelamer Carbonate (Renvela) 2,400 mg WITH MEALS PO Last administered on 07/26/18 12:58; Admin Dose 2,400 MG; Start 07/13/18 at 11:40 Multivit/Ca Carb/ B Cmplx/FA/Prenat (Aminah-Tanisha) 1 tab DAILY PO Last administered on 07/26/18 09:10; Admin Dose 1 TAB; Start 07/13/18 at 09:00 Lidocaine (Lidoderm) 1 patch DAILY TD Last administered on 07/20/18 09:33; Admin Dose 1 PATCH; Start 07/13/18 at 21:30 Bromocriptine Mesylate (Parlodel) 2.5 mg QHS PO Last administered on 07/25/18 21:06; Admin Dose 2.5 MG; Start 07/14/18 at 21:00 Naproxen (Naprosyn) 500 mg BID PRN PO PAIN AND/OR INFLAMMATION; Start 07/13/18 at 23:30 Pantoprazole (Protonix Tab) 40 mg DAILY@06 PO Last administered on 07/26/18 05:47; Admin Dose 40 MG; Start 07/14/18 at 06:00 Zolpidem Tartrate (Ambien) 10 mg QHS PRN PO INSOMNIA; Start 07/13/18 at 23:30 Diphenhydramine HCl (Benadryl) 50 mg Q6H PRN IV itchiness Last administered on 07/26/18 12:01; Admin Dose 50 MG; Start 07/14/18 at 03:00 Heparin Sodium (Porcine) (Heparin (1000 Units/ml)) 3,000 unit AFTER DIALYSIS CATHETER Last administered on 07/25/18 11:21; Admin Dose 4,500 UNIT; Start 07/14/18 at 16:30 Calcitriol (Rocaltrol) 0.25 mcg DAILY PO Last administered on 07/26/18at 09:10; Admin Dose 0.25 MCG; Start 07/15/18 at 09:00 Cefazolin Sodium 50 ml @ 100 mls/hr Q24H IVPB Last administered on 07/25/18at 21:06; Admin Dose 100 MLS/HR; Start 07/15/18 at 21:00 Midodrine (Proamatine) 10 mg TID@09,13,17 PO Last administered on 07/26/18at 12:59; Admin Dose 10 MG; Start 07/16/18 at 13:00 Morphine Sulfate (morphine) 4 mg Q2H PRN IV SEVERE PAIN LEVEL 7-10 Last administered on 07/26/18at 16:25; Admin Dose 4 MG; Start 07/17/18 at 09:00 Alteplase, Recombinant (Cathflo (Activase)) 2 mg MAY REPEAT X1 PRN CATHETER IF CATHETER REMAINS OCCULUDED; Start 07/22/18 at 17:30 Epoetin Maxwell-epbx (Retacrit (Esrd)) 8,000 unit TuThSa@17 SC ; Start 07/26/18 at 17:00 Epoetin Maxwell-epbx (Retacrit (Esrd)) 8,000 unit TuThSa@1700 SC ; Start 07/26/18 at 17:00 GINGER HARDIN M.D. Jul 26, 2018 16:51
[2018-07-26] MEDS ORDERED: EPOETIN ALFA-EPBX (ESRD) 4,000 UNIT/ML VIAL SC SCH ×3 (17:00→18:12)
[2018-07-26] MEDS: ONDANSETRON 4 MG INJ IV PRN (18:07)
[2018-07-26 20:23] VITALS: BP 101/54; PULSE 66; RESP 18
[2018-07-26] MEDS: CEFAZOLIN 1 GM/50 ML (PMX) 50 ML IVPB SCH (20:24)
[2018-07-26] MEDS: BROMOCRIPTINE 2.5 MG TAB PO SCH (20:50)
[2018-07-27] VITALS (16 sets, daily range): BP systolic 80–111; BP diastolic 42–72; PULSE 63–118; RESP 16–20
[2018-07-27] MEDS: DIPHENHYDRAMINE 50 MG INJ IV PRN ×4 (00:07→18:07)
[2018-07-27] MEDS: morphine 4 MG/ML VIAL IV PRN ×5 (00:08→20:21)
[2018-07-27] MEDS: PANTOPRAZOLE (EC) 40 MG TAB PO SCH (06:07)
[2018-07-27] MEDS: LIDOCAINE 5% PATCH TD SCH (09:00)
[2018-07-27] MEDS: CALCITRIOL 0.25 MCG CAP PO SCH (09:33)
[2018-07-27] MEDS: MULTIVIT/CA CARB/B CMPLX/FA TAB PO SCH (09:33)
[2018-07-27] MEDS: SEVELAMER CARBONATE 800 MG TABLET PO SCH ×3 (09:33→17:55)
[2018-07-27] MEDS: MIDODRINE 5 MG TAB PO SCH ×3 (09:34→17:02)
--- NOTE | 2018-07-27 15:58 | CONS ---
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 Last used for HD in 04/2018. 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 The culture of the tip of the removed catheter, blood cultures and swab of the catheter site were negative. Pt completed an empiric course of renally dosed pip/tazo (06/13/2018-06/18/2018) - h/o placement of a permacath on R chest wall on 06/23/2018 - h/o creation of AVF in [facility] [place] in 2016 - h/o 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 Pt took renally dosed valACV (07/15/2018-07/17/2018) - adverse reaction to vancomycin (pruritus) - adverse reaction to linezolid (thrombocytopenia). Linezolid was discontinued (06/12/2018-06/17/2018) Recommendations: - continue renally dosed cefazolin (07/15/2018-) for bacteremia due to MSSA through 07/29/2018 Management d/w patient Consultation Date/Type/Reason Admit Date/Time Jul 13, 2018 at 05:59 Initial Consult Date 07/14/18 Type of Consult ID Requesting Provider: LUANNE WALTER MD Date/Time of Note DATE: 07/27/18 TIME: 15:56 24 HR Interval Summary Constitutional: improved Detailed Summary Eyes: no complaints ENT: no complaints Respiratory: no complaints Cardiovascular: no complaints Gastrointestinal: no complaints Genitourinary: other (on HD) Musculoskeletal: no complaints Skin: pruritis (scalp, arms and chest wall) Neurologic: no complaints Exam/Review of Systems Exam Vitals Vital Signs Date Temp Pulse Resp B/P (MAP) Pulse Ox O2 O2 Flow FiO2 Time Delivery Rate 07/27/18 98.0 65 16 80/42 (55) 95 Room Air 07:31 Intake and Output 07/26/18 07/26/18 07/27/18 1515:00 23:00 07:00 IntakeIntake Total 220 ml 100 ml 50 ml BalanceBalance 220 ml 100 ml 50 ml Constitutional: alert, oriented Psych: no complaints, nl mood/affect Head: normocephalic, other (alopecia) Eyes: nl conjunctiva, nl lids ENMT: nl external ears & nose, nl nasal mucosa & septum Neck: other (not swollen) Respiratory: normal air movement Cardiovascular: No edema Gastrointestinal: No distended Musculoskeletal: nl extremities to inspection Extremities: No edema 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: 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 intact, nl mental status Skin: rash or lesions (dry skin of b/l UEs) Results Result Diagram: 07/27/18 0433 07/27/18 0433 Results 24hrs Laboratory Tests Test 07/27/18 04:33 White Blood Count 8.2 # Red Blood Count 3.13 L Hemoglobin 10.3 L Hematocrit 33.3 L Mean Corpuscular Volume 106.4 H Mean Corpuscular Hemoglobin 32.9 Mean Corpuscular Hemoglobin Concent 30.9 L Red Cell Distribution Width 15.9 H Platelet Count 289 Mean Platelet Volume 10.6 H Immature Granulocytes % 0.400 Neutrophils % 62.8 Lymphocytes % 20.9 Monocytes % 9.8 Eosinophils % 5.4 Basophils % 0.7 Nucleated Red Blood Cells % 0.0 Immature Granulocytes # 0.030 Neutrophils # 5.1 Lymphocytes # 1.7 Monocytes # 0.8 Eosinophils # 0.4 Basophils # 0.1 Nucleated Red Blood Cells # 0.0 Sodium Level 141 Potassium Level 5.3 H Chloride Level 97 Carbon Dioxide Level 27 Anion Gap 17 H Blood Urea Nitrogen 48 H Creatinine 10.81 H Est Glomerular Filtrat Rate mL/min 4 L Glucose Level 77 Calcium Level 8.7 Medications Medication Current Medications Acetaminophen (Tylenol Tab) 650 mg Q4H PRN PO MILD PAIN(1-3)OR ELEVATED TEMP Last administered on 07/14/18 02:53; Admin Dose 650 MG; Start 07/13/18 at 09:00 Ondansetron HCl (Zofran Inj) 4 mg Q6H PRN IV NAUSEA AND/OR VOMITING Last administered on 07/26/18 18:07; Admin Dose 4 MG; Start 07/13/18 at 09:00 Acetaminophen/ Hydrocodone Bitart ([place] (5/325)) 1 tab Q4H PRN PO MODERATE PAIN LEVEL 4-6 Last administered on 07/13/18 16:21; Admin Dose 1 TAB; Start 07/13/18 at 09:00 Sevelamer Carbonate (Renvela) 2,400 mg WITH MEALS PO Last administered on 07/27/18 09:33; Admin Dose 2,400 MG; Start 07/13/18 at 11:40 Multivit/Ca Carb/ B Cmplx/FA/Prenat (Aminah-Tanisha) 1 tab DAILY PO Last administe red on 07/27/18 09:33; Admin Dose 1 TAB; Start 07/13/18 at 09:00 Lidocaine (Lidoderm) 1 patch DAILY TD Last administered on 07/20/18 09:33; Admin Dose 1 PATCH; Start 07/13/18 at 21:30 Bromocriptine Mesylate (Parlodel) 2.5 mg QHS PO Last administered on 07/26/18 20:50; Admin Dose 2.5 MG; Start 07/14/18 at 21:00 Naproxen (Naprosyn) 500 mg BID PRN PO PAIN AND/OR INFLAMMATION; Start 07/13/18 at 23:30 Pantoprazole (Protonix Tab) 40 mg DAILY@06 PO Last administered on 07/27/18 06:07; Admin Dose 40 MG; Start 07/14/18 at 06:00 Zolpidem Tartrate (Ambien) 10 mg QHS PRN PO INSOMNIA; Start 07/13/18 at 23:30 Diphenhydramine HCl (Benadryl) 50 mg Q6H PRN IV itchiness Last administered on 07/27/18 12:04; Admin Dose 50 MG; Start 07/14/18 at 03:00 Heparin Sodium (Porcine) (Heparin (1000 Units/ml)) 3,000 unit AFTER DIALYSIS CATHETER Last administered on 07/25/18 11:21; Admin Dose 4,500 UNIT; Start 07/14/18 at 16:30 Calcitriol (Rocaltrol) 0.25 mcg DAILY PO Last administered on 07/27/18 09:33; Admin Dose 0.25 MCG; Start 07/15/18 at 09:00 Cefazolin Sodium 50 ml @ 100 mls/hr Q24H IVPB Last administered on 07/26/18 20:24; Admin Dose 100 MLS/HR; Start 07/15/18 at 21:00 Midodrine (Proamatine) 10 mg TID@09,13,17 PO Last administered on 07/27/18 13:18; Admin Dose 10 MG; Start 07/16/18 at 13:00 Morphine Sulfate (morphine) 4 mg Q2H PRN IV SEVERE PAIN LEVEL 7-10 Last administered on 07/27/18 09:33; Admin Dose 4 MG; Start 07/17/18 at 09:00 Alteplase, Recombinant (Cathflo (Activase)) 2 mg MAY REPEAT X1 PRN CATHETER IF CATHETER REMAINS OCCULUDED; Start 07/22/18 at 17:30 Epoetin Maxwell-epbx (Retacrit (Esrd)) 8,000 unit TuThSa@1700 SC Last administered on 07/26/18 20:29; Admin Dose 8,000 UNIT; Start 07/26/18 at 18:12 GINGER HARDIN M.D. Jul 27, 2018 15:58
--- NOTE | 2018-07-27 17:46 | PN ---
Date/Time of Note Date/Time of Note DATE: 07/27/18 TIME: 17:43 Assessment/Plan VTE Prophylaxis Risk score (from Nsg)>0 risk: 6 SCD applied (from Nsg): Yes Pharmacological prophylaxis: heparin Lines/Catheters IV Catheter Type (from Nrsg): Peripheral IV Central line still needed: No Urinary Cath still in place: No Assessment/Plan Hospital Course Patient is currently undergoing hemodialysis, patient still requires IV morphine every 2 hours, refusing [facility] stating that it does not work for her pain. Dr. Giles is asked to see patient in pain management consultation. Assessment/Plan -Line sepsis with MSSA bacteremia, continue cefazolin until 07/29/18. Dr Leone is following in infection disease consultation. Right chest Perez catheter d/madisyn. s/p R fem Permacath placement. No endocarditis per TTE. -Hemodialysis dependent end-stage renal disease. Dr. Silverio is following in nephrology consultation. -Hyperkalemia -History of hyperparathyroidism, status post subtotal parathyroidectomy of the right superior and inferior glands, partial left inferior gland in June 2016. Status post left upper and lower parathyroidectomy and partial left thyroid lobectomy in November [address] Morales, ENT. 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 Francisco is following in vascular surgery consultation. Recommendations for graft placement as an outpatient after completing treatment for infection. -Leukemia, s/p hemotherapy, last cycle was in early 2018 Further recommendations based on clinical course. Plan of care discussed with Dr. Turner. Result Diagram: 07/27/18 0433 07/27/18 0433 Results 24hrs Laboratory Tests Test 07/27/18 04:33 White Blood Count 8.2 # Red Blood Count 3.13 L Hemoglobin 10.3 L Hematocrit 33.3 L Mean Corpuscular Volume 106.4 H Mean Corpuscular Hemoglobin 32.9 Mean Corpuscular Hemoglobin Concent 30.9 L Red Cell Distribution Width 15.9 H Platelet Count 289 Mean Platelet Volume 10.6 H Immature Granulocytes % 0.400 Neutrophils % 62.8 Lymphocytes % 20.9 Monocytes % 9.8 Eosinophils % 5.4 Basophils % 0.7 Nucleated Red Blood Cells % 0.0 Immature Granulocytes # 0.030 Neutrophils # 5.1 Lymphocytes # 1.7 Monocytes # 0.8 Eosinophils # 0.4 Basophils # 0.1 Nucleated Red Blood Cells # 0.0 Sodium Level 141 Potassium Level 5.3 H Chloride Level 97 Carbon Dioxide Level 27 Anion Gap 17 H Blood Urea Nitrogen 48 H Creatinine 10.81 H Est Glomerular Filtrat Rate mL/min 4 L Glucose Level 77 Calcium Level 8.7 Exam/Review of Systems Exam Vitals Vital Signs Date Temp Pulse Resp B/P (MAP) Pulse Ox O2 O2 Flow FiO2 Time Delivery Rate 07/27/18 101 17:25 07/27/18 16 106/56 98 Room Air 16:10 (73) 07/27/18 98.0 07:31 Intake and Output 07/26/18 07/26/18 07/27/18 1515:00 23:00 07:00 IntakeIntake Total 220 ml 100 ml 50 ml BalanceBalance 220 ml 100 ml 50 ml Exam Constitutional: alert, oriented Respiratory: clear to auscultation Cardiovascular: nl pulses Gastrointestinal: soft, non-tender Extremities: normal pulses 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: nl mental status Additional Comments R fem Perma cath Results Results 24hrs Laboratory Tests Test 07/27/18 04:33 White Blood Count 8.2 # Red Blood Count 3.13 L Hemoglobin 10.3 L Hematocrit 33.3 L Mean Corpuscular Volume 106.4 H Mean Corpuscular Hemoglobin 32.9 Mean Corpuscular Hemoglobin Concent 30.9 L Red Cell Distribution Width 15.9 H Platelet Count 289 Mean Platelet Volume 10.6 H Immature Granulocytes % 0.400 Neutrophils % 62.8 Lymphocytes % 20.9 Monocytes % 9.8 Eosinophils % 5.4 Basophils % 0.7 Nucleated Red Blood Cells % 0.0 Immature Granulocytes # 0.030 Neutrophils # 5.1 Lymphocytes # 1.7 Monocytes # 0.8 Eosinophils # 0.4 Basophils # 0.1 Nucleated Red Blood Cells # 0.0 Sodium Level 141 Potassium Level 5.3 H Chloride Level 97 Carbon Dioxide Level 27 Anion Gap 17 H Blood Urea Nitrogen 48 H Creatinine 10.81 H Est Glomerular Filtrat Rate mL/min 4 L Glucose Level 77 Calcium Level 8.7 Medications Medication Current Medications Acetaminophen (Tylenol Tab) 650 mg Q4H PRN PO MILD PAIN(1-3)OR ELEVATED TEMP Last administered on 07/14/18at 02:53; Admin Dose 650 MG; Start 07/13/18 at 09:00 Ondansetron HCl (Zofran Inj) 4 mg Q6H PRN IV NAUSEA AND/OR VOMITING Last administered on 07/26/18 18:07; Admin Dose 4 MG; Start 07/13/18 at 09:00 Acetaminophen/ Hydrocodone Bitart ([place] (5/325)) 1 tab Q4H PRN PO MODERATE PAIN LEVEL 4-6 Last administered on 07/13/18 16:21; Admin Dose 1 TAB; Start 07/13/18 at 09:00 Sevelamer Carbonate (Renvela) 2,400 mg WITH MEALS PO Last administered on 07/27/18 09:33; Admin Dose 2,400 MG; Start 07/13/18 at 11:40 Multivit/Ca Carb/ B Cmplx/FA/Prenat (Aminah-Tanisha) 1 tab DAILY PO Last administered on 07/27/18 09:33; Admin Dose 1 TAB; Start 07/13/18 at 09:00 Lidocaine (Lidoderm) 1 patch DAILY TD Last administered on 07/20/18 09:33; Admin Dose 1 PATCH; Start 07/13/18 at 21:30 Bromocriptine Mesylate (Parlodel) 2.5 mg QHS PO Last administered on 07/26/18 20:50; Admin Dose 2.5 MG; Start 07/14/18 at 21:00 Naproxen (Naprosyn) 500 mg BID PRN PO PAIN AND/OR INFLAMMATION; Start 07/13/18 at 23:30 Pantoprazole (Protonix Tab) 40 mg DAILY@06 PO Last administered on 07/27/18 06:07; Admin Dose 40 MG; Start 07/14/18 at 06:00 Zolpidem Tartrate (Ambien) 10 mg QHS PRN PO INSOMNIA; Start 07/13/18 at 23:30 Diphenhydramine HCl (Benadryl) 50 mg Q6H PRN IV itchiness Last administered on 07/27/18 12:04; Admin Dose 50 MG; Start 07/14/18 at 03:00 Heparin Sodium (Porcine) (Heparin (1000 Units/ml)) 3,000 unit AFTER DIALYSIS CATHETER Last administered on 07/25/18 11:21; Admin Dose 4,500 UNIT; Start 07/14/18 at 16:30 Calcitriol (Rocaltrol) 0.25 mcg DAILY PO Last administered on 07/27/18 09:33; Admin Dose 0.25 MCG; Start 07/15/18 at 09:00 Cefazolin Sodium 50 ml @ 100 mls/hr Q24H IVPB Last administered on 07/26/18 20:24; Admin Dose 100 MLS/HR; Start 07/15/18 at 21:00 Midodrine (Proamatine) 10 mg TID@09,13,17 PO Last administered on 07/27/18 17:02; Admin Dose 10 MG; Start 07/16/18 at 13:00 Morphine Sulfate (morphine) 4 mg Q2H PRN IV SEVERE PAIN LEVEL 7-10 Last administered on 07/27/18 09:33; Admin Dose 4 MG; Start 07/17/18 at 09:00 Alteplase, Recombinant (Cathflo (Activase)) 2 mg MAY REPEAT X1 PRN CATHETER IF CATHETER REMAINS OCCULUDED; Start 07/22/18 at 17:30 Epoetin Maxwell-epbx (Retacrit (Esrd)) 8,000 unit TuThSa@1700 SC Last administered on 07/26/18 20:29; Admin Dose 8,000 UNIT; Start 07/26/18 at 18:12 ERICK ROBERTSON Jul 27, 2018 17:46
[2018-07-27] MEDS: CEFAZOLIN 1 GM/50 ML (PMX) 50 ML IVPB SCH (20:22)
[2018-07-27] MEDS: BROMOCRIPTINE 2.5 MG TAB PO SCH (20:24)
--- NOTE | 2018-07-27 20:25 | QN ---
Documentation Comment pt seems a bit better. No new complaints. as long as she's able to have HD, she'd continue to stall consideration for PD Cath Placement eventually, sh'd have to face the music!. Further plans per PMD. Note Hct 33%, will cut down CAMERON Pfeiffer MD Jul 27, 2018 20:25
--- NOTE | 2018-07-27 20:29 | QN ---
Documentation Job number: This note id for 07/26: pt was seen around 9:30 AM, with no complaints Comment Pt is clinically stable. I had a long meeting with her mother in the office (dad did not show up as promised). Several treatment options were discussed. Dr Jones was also part of the discussion. No progress was made. Therefore, we've no choice but to continue the present rout-keep struggling with her access issues! CAMERON ISIDRO MD Jul 27, 2018 20:29
[2018-07-28 02:25] VITALS: BP 81/51; PULSE 71; RESP 18
[2018-07-28] MEDS: PANTOPRAZOLE (EC) 40 MG TAB PO SCH (06:03)
[2018-07-28] MEDS: DIPHENHYDRAMINE 50 MG INJ IV PRN ×4 (06:03→20:07)
[2018-07-28] MEDS: morphine 4 MG/ML VIAL IV PRN ×3 (06:03→08:47)
[2018-07-28 08:29] VITALS: BP 96/54; PULSE 82; RESP 18
[2018-07-28] MEDS: SEVELAMER CARBONATE 800 MG TABLET PO SCH ×3 (08:31→17:55)
[2018-07-28] MEDS: MULTIVIT/CA CARB/B CMPLX/FA TAB PO SCH (08:31)
[2018-07-28] MEDS: CALCITRIOL 0.25 MCG CAP PO SCH (08:31)
[2018-07-28] MEDS: LIDOCAINE 5% PATCH TD SCH (08:32)
[2018-07-28] MEDS: MIDODRINE 5 MG TAB PO SCH ×3 (09:02→18:02)
[2018-07-28] MEDS ORDERED: HYDROmorphONE 2 MG TAB PO PRN (11:30)
--- NOTE | 2018-07-28 11:30 | CONS ---
Assessment/Plan Assessment/Plan Assessment/Plan (Daily) Shirley gonzales spine L4-L5 with radiculopathy bilateral lower extremity left greater than right Probably accounts for patient's radicular discomfort secondary to hyperparathyroidism, plus or minus renal osteodystrophy. She has no warning signs on examination but does have significant pain with amb ulation. The only 2 drugs that are safe with her clinical conditions are methadone and fentanyl however low-dose Dilaudid is probably fentanyl although data inconclusive. We will begin her on low-dose p.o. Dilaudid as needed follow her clinical course. [place], Vicodin, Tylenol with codeine OxyContin oxycodone contraindicated. Consultation Date/Type/Reason Admit Date/Time Jul 13, 2018 at 05:59 Date/Time of Note DATE: 07/28/18 TIME: 11:23 Tinea pain management consultation on this 32-year-old female with history of end-stage renal disease disease on hemodialysis, status post parathyroidectomy for secondary hyperparathyroidectomy. She does not know the name of her oncologist states last time she received treatments within the last 2 weeks ago. Admitted at this time for elevated temperatures history of recurrent hemodialysis catheter with bacteremia. Other comorbid major medical problems include history of biliary colic, history of thrombocytopenia history of hyperparathyroidism status post subtotal parathyroidectomy and recent history of diagnosis of leukemia though we have an incomplete database of the type of leukemia and treatment given in the past or when she was diagnosed. I was called to see patient for persistent back pain. Questioning her her pain is bilateral lumbosacral regions with radiation to bilateral lower extremities left greater than right. She states her pain is mild at rest but when she ambulates and increases in severity with a grade at rest of 2/10 with minimal ambulation 7/10. Described the pain is a squeezing gnawing type discomfort bilateral lower extremities but she denies any radicular discomfort. Denies any warning signs of incontinence of urine or feces, pelvic anesthesia, severe rapid onset acceleration of her pain but chronic increasing discomfort. She denies any loss of strength in bilateral lower extremities she is able to do all of her ADLs however postdialysis she states she is extremely weak and tired. She takes no pain medications at home other than Tylenol, there is no past medical history of drug use abuse she is a non-smoker nondrinker she is not bargaining for particular types of pain control medications. She is not a victim of abuse, no motor vehicle accidents and no history of use of recreational street drugs. Recent MRI of the lumbosacral spine shows #1 atrophic kidneys #2 [place] appearance of the vertebral bodies on sagittal T1-T2 weighted images likely reflecting renal osteodystrophy. Osteodystrophy also likely explains the presence of multiple Schmori nodes #3 mild L3-L4 canal stenosis with asymmetric narrowing of the left lateral recess and mild encroachment of the traversing left L4 root #4 mild L4-L5 canal stenosis #5 3.3 x 1.7 cm benign-appearing expansile cystic lesion involving the posterior medial right iliac bone. Past Medical History Medical History: cancer, other (History of hyperparathyroid ectomy) Home Meds Active Scripts Pantoprazole* (Pantoprazole*) 40 Mg Tablet.dr, 40 MG PO DAILY@06 for 30 Days Prov:EDILMA CASIANO 06/25/18 Bromocriptine Mesylate* (Parlodel*) 2.5 Mg Tablet, 2.5 MG PO QHS for 30 Days, TAB Prov:EDILMA CASIANO 06/25/18 Midodrine* (Midodrine*) 5 Mg Tablet, 5 MG PO TID@09,13,17 for 30 Days, TAB Prov:EDILMA CASIANO 06/25/18 Naproxen* (Naprosyn*) 500 Mg Tablet, 500 MG PO BID PRN for PAIN AND/OR INFLAMMATION, #30 TAB Prov:LIANA DAWSON MD 05/14/18 Reported Medications Sevelamer Hcl* (Renagel*) 800 Mg Tablet, 800 MG PO WITH MEALS, TAB 05/14/18 Zolpidem Tartrate* (Zolpidem Tartrate*) 10 Mg Tablet, 10 MG PO QHS PRN for INSOMNIA, #30 TAB 07/06/17 Medications Current Medications Acetaminophen (Tylenol Tab) 650 mg Q4H PRN PO MILD PAIN(1-3)OR ELEVATED TEMP Last administered on 07/14/18at 02:53; Admin Dose 650 MG; Start 07/13/18 at 09:00 Ondansetron HCl (Zofran Inj) 4 mg Q6H PRN IV NAUSEA AND/OR VOMITING Last administered on 07/26/18at 18:07; Admin Dose 4 MG; Start 07/13/18 at 09:00 Acetaminophen/ Hydrocodone Bitart ([place] (5/325)) 1 tab Q4H PRN PO MODERATE PAIN LEVEL 4-6 Last administered on 07/13/18 16:21; Admin Dose 1 TAB; Start 07/13/18 at 09:00 Sevelamer Carbonate (Renvela) 2,400 mg WITH MEALS PO Last administered on 07/28/18 08:31; Admin Dose 2,400 MG; Start 07/13/18 at 11:40 Multivit/Ca Carb/ B Cmplx/FA/Prenat (Aminah-Tanisha) 1 tab DAILY PO Last administered on 07/28/18 08:31; Admin Dose 1 TAB; Start 07/13/18 at 09:00 Lidocaine (Lidoderm) 1 patch DAILY TD Last administered on 07/20/18 09:33; Admin Dose 1 PATCH; Start 07/13/18 at 21:30 Bromocriptine Mesylate (Parlodel) 2.5 mg QHS PO Last administered on 07/27/18 20:24; Admin Dose 2.5 MG; Start 07/14/18 at 21:00 Naproxen (Naprosyn) 500 mg BID PRN PO PAIN AND/OR INFLAMMATION; Start 07/13/18 at 23:30 Pantoprazole (Protonix Tab) 40 mg DAILY@06 PO Last administered on 07/28/18 06:03; Admin Dose 40 MG; Start 07/14/18 at 06:00 Zolpidem Tartrate (Ambien) 10 mg QHS PRN PO INSOMNIA; Start 07/13/18 at 23:30 Diphenhydramine HCl (Benadryl) 50 mg Q6H PRN IV itchiness Last administered on 07/28/18 06:03; Admin Dose 50 MG; Start 07/14/18 at 03:00 Heparin Sodium (Porcine) (Heparin (1000 Units/ml)) 3,000 unit AFTER DIALYSIS CATHETER Last administered on 07/25/18 11:21; Admin Dose 4,500 UNIT; Start 07/14/18 at 16:30 Calcitriol (Rocaltrol) 0.25 mcg DAILY PO Last administered on 07/28/18 08:31; Admin Dose 0.25 MCG; Start 07/15/18 at 09:00 Cefazolin Sodium 50 ml @ 100 mls/hr Q24H IVPB Last administered on 07/27/18at 20:22; Admin Dose 100 MLS/HR; Start 07/15/18 at 21:00 Midodrine (Proamatine) 10 mg TID@09,13,17 PO Last administered on 07/28/18at 09:02; Admin Dose 10 MG; Start 07/16/18 at 13:00 Morphine Sulfate (morphine) 4 mg Q2H PRN IV SEVERE PAIN LEVEL 7-10 Last administered on 07/28/18at 08:47; Admin Dose 4 MG; Start 07/17/18 at 09:00 Alteplase, Recombinant (Cathflo (Activase)) 2 mg MAY REPEAT X1 PRN CATHETER IF CATHETER REMAINS OCCULUDED; Start 07/22/18 at 17:30 Epoetin Maxwell-epbx (Retacrit) 3,000 unit TuThSa@1700 [place] ; Start 07/28/18 at 17:00 Allergies: Coded Allergies: vancomycin (Unverified Allergy, Severe, 07/13/18) pruritus pineapple (Unverified Allergy, Mild, 07/13/18) watermelon (Unverified Allergy, Unknown, 07/13/18) peach (Unverified Adverse Reaction, Unknown, HEADACHE, 07/13/18) Past Surgical History Past Surgical Hx: other (Placement of AV fistula right lower extremity) Family History Significant Family History: no pertinent family hx Social History Alcohol Use: none Smoking Status: Never smoker Drug Use: none Exam/Review of Systems Exam Vitals Vital Signs Date Temp Pulse Resp B/P (MAP) Pulse Ox O2 O2 Flow FiO2 Time Delivery Rate 07/28/18 98.0 82 18 96/54 (68) 100 08:29 07/27/18 Room Air 16:10 Intake and Output 07/27/18 07/27/18 07/28/18 1515:00 23:00 07:00 IntakeIntake Total 240 ml 50 ml OutputOutput Total 2675 ml BalanceBalance 240 ml -2625 ml Constitutional: alert, oriented, well developed Respiratory: clear to auscultation, normal air movement; No congested cough, No crackles/rales, No diminished breath sounds, No intercostal retraction, No labored breathing, No respirations, No tactile fremitus, No wheezing, No other Cardiovascular: regular rate and rhythm, nl pulses; No bruits, No diastolic murmur, No edema, No gallop, No irregular rhythm, No jugular venous distention (JVD), No murmurs/extra sounds, No rub, No systolic murmur, No S3, No S4, No other 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: other (Range of motion bilateral lower extremities flexion extension internal and external rotation of her feet are intact extensor hallucis tendon intact lection extension bilateral knees intact sensory within normal limits bilateral lower extremity motor 5/5 bilateral lower extremity negative for fasciculations) Results Result Diagram: 07/27/18 0433 07/28/18 0453 Results 24hrs Laboratory Tests Test 07/28/18 04:53 Sodium Level 140 Potassium Level 5.3 H Chloride Level 98 Carbon Dioxide Level 25 Anion Gap 17 H Blood Urea Nitrogen 30 #H Creatinine 9.13 H Est Glomerular Filtrat Rate mL/min 5 L Glucose Level 94 Calcium Level 9.2 Medications Medication Current Medications Acetaminophen (Tylenol Tab) 650 mg Q4H PRN PO MILD PAIN(1-3)OR ELEVATED TEMP L ast administered on 07/14/18 02:53; Admin Dose 650 MG; Start 07/13/18 at 09:00 Ondansetron HCl (Zofran Inj) 4 mg Q6H PRN IV NAUSEA AND/OR VOMITING Last administered on 07/26/18 18:07; Admin Dose 4 MG; Start 07/13/18 at 09:00 Acetaminophen/ Hydrocodone Bitart ([place] (5/325)) 1 tab Q4H PRN PO MODERATE PAIN LEVEL 4-6 Last administered on 07/13/18 16:21; Admin Dose 1 TAB; Start 07/13/18 at 09:00 Sevelamer Carbonate (Renvela) 2,400 mg WITH MEALS PO Last administered on 07/28/18 08:31; Admin Dose 2,400 MG; Start 07/13/18 at 11:40 Multivit/Ca Carb/ B Cmplx/FA/Prenat (Aminah-Tanisha) 1 tab DAILY PO Last administered on 07/28/18 08:31; Admin Dose 1 TAB; Start 07/13/18 at 09:00 Lidocaine (Lidoderm) 1 patch DAILY TD Last administered on 07/20/18 09:33; Admin Dose 1 PATCH; Start 07/13/18 at 21:30 Bromocriptine Mesylate (Parlodel) 2.5 mg QHS PO Last administered on 07/27/18 20:24; Admin Dose 2.5 MG; Start 07/14/18 at 21:00 Naproxen (Naprosyn) 500 mg BID PRN PO PAIN AND/OR INFLAMMATION; Start 07/13/18 at 23:30 Pantoprazole (Protonix Tab) 40 mg DAILY@06 PO Last administered on 07/28/18 06:03; Admin Dose 40 MG; Start 07/14/18 at 06:00 Zolpidem Tartrate (Ambien) 10 mg QHS PRN PO INSOMNIA; Start 07/13/18 at 23:30 Diphenhydramine HCl (Benadryl) 50 mg Q6H PRN IV itchiness Last administered on 07/28/18 06:03; Admin Dose 50 MG; Start 07/14/18 at 03:00 Heparin Sodium (Porcine) (Heparin (1000 Units/ml)) 3,000 unit AFTER DIALYSIS CATHETER Last administered on 07/25/18 11:21; Admin Dose 4,500 UNIT; Start 07/14/18 at 16:30 Calcitriol (Rocaltrol) 0.25 mcg DAILY PO Last administered on 07/28/18 08:31; Admin Dose 0.25 MCG; Start 07/15/18 at 09:00 Cefazolin Sodium 50 ml @ 100 mls/hr Q24H IVPB Last administered on 07/27/18 20:22; Admin Dose 100 MLS/HR; Start 07/15/18 at 21:00 Midodrine (Proamatine) 10 mg TID@09,13,17 PO Last administered on 07/28/18 09:02; Admin Dose 10 MG; Start 07/16/18 at 13:00 Morphine Sulfate (morphine) 4 mg Q2H PRN IV SEVERE PAIN LEVEL 7-10 Last administered on 07/28/18 08:47; Admin Dose 4 MG; Start 07/17/18 at 09:00 Alteplase, Recombinant (Cathflo (Activase)) 2 mg MAY REPEAT X1 PRN CATHETER IF CATHETER REMAINS OCCULUDED; Start 07/22/18 at 17:30 Epoetin Maxwell-epbx (Retacrit) 3,000 unit TuThSa@0080 [place] ; Start 07/28/18 at 17:00 KATIANA LOWRY Jul 28, 2018 11:29
--- NOTE | 2018-07-28 11:47 | QN ---
Documentation Comment Pt is clinically stable, no new complaints. Exam is unchanged, rt groin swelling remains. I'm unable to offer any further assistance. Did leave a msg for V Sx. 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
--- NOTE | 2018-07-28 12:53 | CONS ---
[facility] HCIS Consult Follow-up Patient Name: Maria Luisa Lakhani Unit Number: [id number] Date of : 1985 Patient Status: Admitted Inpatient Attending Doctor: Pawan Walter MD Edit: GINGER LEONE M.D. on 07/29/18 @ 20:23 Sulema: I discussed the management with YOKASTA Bueno and agree Assessment/Plan Assessment/Plan Hospital Course (Demo Recall) # sepsis, heme/onc - sepsis due to bacteremia - resolving - bacteremia due to MSSA - h/o transthoracic echo on 07/19/2018, no e/o endocarditis - s/p removal of permacath on R chest wall on 07/14/2018 - s/p R femoral HD justin catheter placement 07/14/2018, replaced by HD permacath 07/19/2018 - pain/increased sensitivity of R groin after replacement of the justin with permacath - thrombosed L brachiocephalic AV fistula, 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 Last used for HD in 04/2018. Was scheduled to get a new graft [place] [facility] [place] - h/o swelling on the scalp and chest wall, possibly due to collateral veins as a result of thrombosis of AVF - hypotension after HD - h/o recurrent infection of HD catheter site/HD catheter - h/o removal and placement of a new Perez catheter in 05/2018. The culture of the tip of the removed catheter, blood cultures and swab of the catheter site were negative. Pt completed an empiric course of renally dosed pip/tazo (-06/18/2018) - h/o placement of a permacath on R chest wall on 06/23/2018 - h/o creation of AVF in [facility] [place] in 2017 - h/o 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 Pt took renally dosed valACV (07/15/2018-07/17/2018) - adverse reaction to vancomycin (pruritus) - adverse reaction to linezolid (thrombocytopenia). Linezolid was discontinued (06/12/2018-06/17/2018) # other - RLE pain with no e/o DVT Recommendations: - continue renally dosed cefazolin (07/15/2018-) for bacteremia due to MSSA through 07/29/2018 Management d/w patient, BRIANA Rios, and with Dr. Leone Consultation Date/Type/Reason Admit Date/Time Jul 13, 2018 at 05:59 Initial Consult Date 07/14/18 Type of Consult Infectious Disease Requesting Provider: PAWAN WALTER MD Date/Time of Note DATE: 07/28/18 TIME: 12:53 24 HR Interval Summary Free Text/Dictation Pt states po Dilaudid is ineffective and rates pain 10/10. Also reports R thigh skin irritation with one small ulcer noted after Tegaderm was removed. Has mild nausea but no vomiting or diarrhea. Exam/Review of Systems Exam Vitals Vital Signs Date Temp Pulse Resp B/P (MAP) Pulse Ox O2 O2 Flow FiO2 Time Delivery Rate 07/28/18 98.0 82 18 96/54 (68) 100 08:29 07/27/18 Room Air 16:10 Intake and Output 07/27/18 07/27/18 07/28/18 1515:00 23:00 07:00 IntakeIntake Total 240 ml 50 ml OutputOutput Total 2675 ml BalanceBalance 240 ml -2625 ml Exam Constitutional: alert, oriented, well developed Psych: no complaints, nl mood/affect Head: normocephalic, atraumatic, other (+alopecia) Eyes: nl conjunctiva, nl lids, nl sclera ENMT: nl external ears & nose, nl lips & teeth, nl nasal mucosa & septum, mucosa pink and moist Neck: supple, non-tender Respiratory: clear to auscultation, normal air movement Cardiovascular: regular rate and rhythm, nl pulses, no edema Gastrointestinal: soft, non-tender Genitourinary - Female: other (No Stephen; R femoral HD catheter c/d/i with TTP with excoriation noted from prior Tegaderm) Musculoskeletal: nl extremities to inspection Extremities: normal pulses, other (LUE AVF noted with no thrill, non-TTP); No cyanosis, No clubbing, No edema 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: nl mental status, nl speech, nl strength Skin: nl turgor, other (small ulcer noted superiorly to R femoral HD catheter with no surrounding erythema, trivial beige discharge seen, but no overt signs of infection and no significant TTP; multiple tattoos) Results Result Diagram: 07/27/18 0433 07/28/18 0453 Results 24hrs Laboratory Tests Test 07/28/18 04:53 Sodium Level 140 Potassium Level 5.3 H Chloride Level 98 Carbon Dioxide Level 25 Anion Gap 17 H Blood Urea Nitrogen 30 #H Creatinine 9.13 H Est Glomerular Filtrat Rate mL/min 5 L Glucose Level 94 Calcium Level 9.2 Medications Medication Current Medications Acetaminophen (Tylenol Tab) 650 mg Q4H PRN PO MILD PAIN(1-3)OR ELEVATED TEMP Last administered on 07/14/18at 02:53; Admin Dose 650 MG; Start 07/13/18 at 09:00 Ondansetron HCl (Zofran Inj) 4 mg Q6H PRN IV NAUSEA AND/OR VOMITING Last administered on 07/26/18 18:07; Admin Dose 4 MG; Start 07/13/18 at 09:00 Sevelamer Carbonate (Renvela) 2,400 mg WITH MEALS PO Last administered on 07/28/18at 08:31; Admin Dose 2,400 MG; Start 07/13/18 at 11:40 Multivit/Ca Carb/ B Cmplx/FA/Prenat (Aminah-Tanisha) 1 tab DAILY PO Last administered on 07/28/18 08:31; Admin Dose 1 TAB; Start 07/13/18 at 09:00 Lidocaine (Lidoderm) 1 patch DAILY TD Last administered on 07/20/18 09:33; Admin Dose 1 PATCH; Start 07/13/18 at 21:30 Bromocriptine Mesylate (Parlodel) 2.5 mg QHS PO Last administered on 07/27/18 20:24; Admin Dose 2.5 MG; Start 07/14/18 at 21:00 Naproxen (Naprosyn) 500 mg BID PRN PO PAIN AND/OR INFLAMMATION; Start 07/13/18 at 23:30 Pantoprazole (Protonix Tab) 40 mg DAILY@06 PO Last administered on 07/28/18 06:03; Admin Dose 40 MG; Start 07/14/18 at 06:00 Zolpidem Tartrate (Ambien) 10 mg QHS PRN PO INSOMNIA; Start 07/13/18 at 23:30 Diphenhydramine HCl (Benadryl) 50 mg Q6H PRN IV itchiness Last administered on 07/28/18 12:09; Admin Dose 50 MG; Start 07/14/18 at 03:00 Heparin Sodium (Porcine) (Heparin (1000 Units/ml)) 3,000 unit AFTER DIALYSIS CATHETER Last administered on 07/25/18 11:21; Admin Dose 4,500 UNIT; Start 07/14/18 at 16:30 Calcitriol (Rocaltrol) 0.25 mcg DAILY PO Last administered on 07/28/18 08:31; Admin Dose 0.25 MCG; Start 07/15/18 at 09:00 Cefazolin Sodium 50 ml @ 100 mls/hr Q24H IVPB Last administered on 07/27/18 20:22; Admin Dose 100 MLS/HR; Start 07/15/18 at 21:00 Midodrine (Proamatine) 10 mg TID@09,13,17 PO Last administered on 07/28/18 12:31; Admin Dose 10 MG; Start 07/16/18 at 13:00 Alteplase, Recombinant (Cathflo (Activase)) 2 mg MAY REPEAT X1 PRN CATHETER IF CATHETER REMAINS OCCULUDED; Start 07/22/18 at 17:30 Epoetin Maxwell-epbx (Retacrit) 3,000 unit TuThSa@1700 [place] ; Start 07/28/18 at 17:00 Hydromorphone HCl (Dilaudid) 2 mg Q4H PRN PO PAIN Last administered on 07/28/18at 12:09; Admin Dose 2 MG; Start 07/28/18 at 11:30 EDIE BUENO NP Jul 28, 2018 12:53
--- NOTE | 2018-07-28 14:09 | PN ---
Date/Time of Note Date/Time of Note DATE: 07/28/18 TIME: 14:02 Assessment/Plan VTE Prophylaxis Risk score (from Nsg)>0 risk: 3 SCD applied (from Nsg): Yes Pharmacological prophylaxis: heparin Lines/Catheters IV Catheter Type (from Nrsg): Mid Line Urinary Cath still in place: No Assessment/Plan Hospital Course Patient remains hemodynamically stable, afebrile complains of bilateral lower extremities requiring IV Dilaudid and complains of occasional itching. Dr. Giles is following in pain management consultation. If patient pain is adequately controlled anticipate discharge home tomorrow after completion of antibiotics for bacteremia. Assessment/Plan -Radiculopathy of bilateral lower extremities. Dr. Giles is following in pain management consultation. -Line sepsis with MSSA bacteremia, continue cefazolin until 07/29/18. Dr Leone is following in infection disease consultation. Right chest Perez catheter d/madisyn. s/p R fem Permacath placement. No endocarditis per TTE. -Hemodialysis dependent end-stage renal disease. Dr. Silverio is following in n ephrology consultation. -Hyperkalemia -History of hyperparathyroidism, status post subtotal parathyroidectomy of the right superior and inferior glands, partial left inferior gland in June 2016. Status post left upper and lower parathyroidectomy and partial left thyroid lobectomy in November [address] Morales, ENT. 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 Francisco is following in vascular surgery consultation. Recommendations for graft placement as an outpatient after completing treatment for infection. -Leukemia, s/p hemotherapy, last cycle was in early 2018 Further recommendations based on clinical course. Plan of care discussed with Dr. Turner. Result Diagram: 07/27/18 0433 07/28/18 0453 Results 24hrs Laboratory Tests Test 07/28/18 04:53 Sodium Level 140 Potassium Level 5.3 H Chloride Level 98 Carbon Dioxide Level 25 Anion Gap 17 H Blood Urea Nitrogen 30 #H Creatinine 9.13 H Est Glomerular Filtrat Rate mL/min 5 L Glucose Level 94 Calcium Level 9.2 Exam/Review of Systems Exam Vitals Vital Signs Date Temp Pulse Resp B/P (MAP) Pulse Ox O2 O2 Flow FiO2 Time Delivery Rate 07/28/18 98.0 82 18 96/54 (68) 100 08:29 07/27/18 Room Air 16:10 Intake and Output 07/27/18 07/27/18 07/28/18 1515:00 23:00 07:00 IntakeIntake Total 240 ml 50 ml OutputOutput Total 2675 ml BalanceBalance 240 ml -2625 ml Exam Constitutional: alert, oriented Respiratory: clear to auscultation Cardiovascular: nl pulses Gastrointestinal: soft, non-tender Extremities: normal pulses 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: nl mental status Additional Comments R fem Perma cath Results Results 24hrs Laboratory Tests Test 07/28/18 04:53 Sodium Level 140 Potassium Level 5.3 H Chloride Level 98 Carbon Dioxide Level 25 Anion Gap 17 H Blood Urea Nitrogen 30 #H Creatinine 9.13 H Est Glomerular Filtrat Rate mL/min 5 L Glucose Level 94 Calcium Level 9.2 Medications Medication Current Medications Acetaminophen (Tylenol Tab) 650 mg Q4H PRN PO MILD PAIN(1-3)OR ELEVATED TEMP Last administered on 07/14/18 02:53; Admin Dose 650 MG; Start 07/13/18 at 09:00 Ondansetron HCl (Zofran Inj) 4 mg Q6H PRN IV NAUSEA AND/OR VOMITING Last administered on 07/26/18 18:07; Admin Dose 4 MG; Start 07/13/18 at 09:00 Sevelamer Carbonate (Renvela) 2,400 mg WITH MEALS PO Last administered on 07/28/18 08:31; Admin Dose 2,400 MG; Start 07/13/18 at 11:40 Multivit/Ca Carb/ B Cmplx/FA/Prenat (Aminah-Tanisha) 1 tab DAILY PO Last ad ministered on 07/28/18 08:31; Admin Dose 1 TAB; Start 07/13/18 at 09:00 Lidocaine (Lidoderm) 1 patch DAILY TD Last administered on 07/20/18 09:33; Admin Dose 1 PATCH; Start 07/13/18 at 21:30 Bromocriptine Mesylate (Parlodel) 2.5 mg QHS PO Last administered on 07/27/18 20:24; Admin Dose 2.5 MG; Start 07/14/18 at 21:00 Naproxen (Naprosyn) 500 mg BID PRN PO PAIN AND/OR INFLAMMATION; Start 07/13/18 at 23:30 Pantoprazole (Protonix Tab) 40 mg DAILY@06 PO Last administered on 07/28/18 06:03; Admin Dose 40 MG; Start 07/14/18 at 06:00 Zolpidem Tartrate (Ambien) 10 mg QHS PRN PO INSOMNIA; Start 07/13/18 at 23:30 Diphenhydramine HCl (Benadryl) 50 mg Q6H PRN IV itchiness Last administered on 07/28/18 12:09; Admin Dose 50 MG; Start 07/14/18 at 03:00 Heparin Sodium (Porcine) (Heparin (1000 Units/ml)) 3,000 unit AFTER DIALYSIS CATHETER Last administered on 07/25/18 11:21; Admin Dose 4,500 UNIT; Start 07/14/18 at 16:30 Calcitriol (Rocaltrol) 0.25 mcg DAILY PO Last administered on 07/28/18 08:31; Admin Dose 0.25 MCG; Start 07/15/18 at 09:00 Cefazolin Sodium 50 ml @ 100 mls/hr Q24H IVPB Last administered on 07/27/18 20:22; Admin Dose 100 MLS/HR; Start 07/15/18 at 21:00 Midodrine (Proamatine) 10 mg TID@09,13,17 PO Last administered on 07/28/18 12:31; Admin Dose 10 MG; Start 07/16/18 at 13:00 Alteplase, Recombinant (Cathflo (Activase)) 2 mg MAY REPEAT X1 PRN CATHETER IF CATHETER REMAINS OCCULUDED; Start 07/22/18 at 17:30 Epoetin Maxwell-epbx (Retacrit) 3,000 unit TuThSa@1700 [place] ; Start 07/28/18 at 17:00 Hydromorphone HCl (Dilaudid) 0.5 mg Q4H PRN IV SEVERE PAIN LEVEL 7-10; Start 07/28/18 at 13:30 ERICK ROBERTSON Jul 28, 2018 14:09
[2018-07-28] MEDS: HYDROmorphONE 0.5 MG/0.5 ML SYG IV PRN ×3 (14:32→22:33)
[2018-07-28 15:36] VITALS: BP 111/75; PULSE 85; RESP 18
[2018-07-28] MEDS: EPOETIN ALFA-EPBX (ESRD) 3,000 UNIT/ML VIAL SC SCH (17:00)
[2018-07-28] MEDS ORDERED: EPOETIN ALFA-EPBX (ESRD) 3,000 UNIT/ML VIAL SC SCH (17:00)
[2018-07-28 20:20] VITALS: BP 87/62; PULSE 81; RESP 18
[2018-07-28] MEDS: CEFAZOLIN 1 GM/50 ML (PMX) 50 ML IVPB SCH (21:19)
[2018-07-28] MEDS: BROMOCRIPTINE 2.5 MG TAB PO SCH (21:19)
[2018-07-28 23:42] VITALS: BP 90/50; RESP 20
[2018-07-29] VITALS (17 sets, daily range): BP systolic 9–101; BP diastolic 40–89; PULSE 82–104; RESP 18–22
[2018-07-29] MEDS: DIPHENHYDRAMINE 50 MG INJ IV PRN ×3 (02:10→14:04)
[2018-07-29] MEDS: HYDROmorphONE 0.5 MG/0.5 ML SYG IV PRN ×3 (02:13→11:38)
[2018-07-29] MEDS: PANTOPRAZOLE (EC) 40 MG TAB PO SCH (05:48)
[2018-07-29] MEDS: SEVELAMER CARBONATE 800 MG TABLET PO SCH ×3 (07:50→17:55)
[2018-07-29] MEDS: MIDODRINE 5 MG TAB PO SCH ×3 (08:15→17:00)
[2018-07-29] MEDS ORDERED: HEPARIN 1000 UNITS/ML 10 ML INJ CATHETER SCH (08:30)
[2018-07-29] MEDS: LIDOCAINE 5% PATCH TD SCH (09:00)
[2018-07-29] MEDS: MULTIVIT/CA CARB/B CMPLX/FA TAB PO SCH (09:00)
[2018-07-29] MEDS: CALCITRIOL 0.25 MCG CAP PO SCH (12:45)
--- NOTE | 2018-07-29 13:02 | PN ---
Date/Time of Note Date/Time of Note DATE: 07/29/18 TIME: 13:00 Assessment/Plan VTE Prophylaxis Risk score (from Nsg)>0 risk: 3 SCD applied (from Nsg): Yes Lines/Catheters IV Catheter Type (from Nrsg): Mid Line Central line still needed: Yes Urinary Cath still in place: No Assessment/Plan Assessment/Plan -Radiculopathy of bilateral lower extremities. Dr. Giles is following in pain management consultation. -Line sepsis with MSSA bacteremia, continue cefazolin until 07/29/18. Dr Leone is following in infection disease consultation. Right chest Perez catheter d/madisyn. s/p R fem Permacath placement. No endocarditis per TTE. -Hemodialysis dependent end-stage renal disease. Dr. Silverio is following in nephrology consultation. -Hyperkalemia -History of hyperparathyroidism, status post subtotal parathyroidectomy of the right superior and inferior glands, partial left inferior gland in June 2016. Status post left upper and lower parathyroidectomy and partial left thyroid lobe ctomy in November [address] Morales, ENT. 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 Francisco is following in vascular surgery consultation. Recommendations for graft placement as an outpatient after completing treatment for infection. -Leukemia, s/p hemotherapy, last cycle was in early 2018 Further recommendations based on clinical course. Plan of care discussed with Dr. Turner. Result Diagram: 07/27/18 0433 07/29/18 0439 Results 24hrs Laboratory Tests Test 07/29/18 04:39 Sodium Level 138 Potassium Level 5.0 Chloride Level 99 Carbon Dioxide Level 23 Anion Gap 16 H Blood Urea Nitrogen 49 #H Creatinine 11.50 #H Est Glomerular Filtrat Rate mL/min 4 L Glucose Level 92 Calcium Level 8.9 Subjective 24 Hr Interval Summary Free Text/Dictation HD today- 1700 ml removed Eyes: no complaints ENT: no complaints Respiratory: no complaints Cardiovascular: no complaints Gastrointestinal: no complaints Genitourinary: no complaints Musculoskeletal: no complaints Neurologic: no complaints Endocrine: no complaints Lymphatic: no complaints Exam/Review of Systems Exam Vitals Vital Signs Date Temp Pulse Resp B/P (MAP) Pulse Ox O2 O2 Flow FiO2 Time Delivery Rate 07/29/18 100 11:00 07/29/18 98.2 19 98/67 (77) 96 08:07 07/29/18 Room Air 08:00 Intake and Output 07/28/18 07/28/18 07/29/18 1515:00 23:00 07:00 IntakeIntake Total 770 ml BalanceBalance 770 ml Constitutional: alert, oriented, well developed Psych: nl mood/affect Head: normocephalic Eyes: nl lids, nl sclera ENMT: nl external ears & nose Neck: non-tender Respiratory: clear to auscultation Cardiovascular: nl pulses, other Gastrointestinal: soft, non-tender Musculoskeletal: nl extremities to inspection Extremities: normal pulses 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: nl mental status, nl speech Results Results 24hrs Laboratory Tests Test 07/29/18 04:39 Sodium Level 138 Potassium Level 5.0 Chloride Level 99 Carbon Dioxide Level 23 Anion Gap 16 H Blood Urea Nitrogen 49 #H Creatinine 11.50 #H Est Glomerular Filtrat Rate mL/min 4 L Glucose Level 92 Calcium Level 8.9 Medications Medication Current Medications Acetaminophen (Tylenol Tab) 650 mg Q4H PRN PO MILD PAIN(1-3)OR ELEVATED TEMP Last administered on 07/14/18 02:53; Admin Dose 650 MG; Start 07/13/18 at 09:00 Ondansetron HCl (Zofran Inj) 4 mg Q6H PRN IV NAUSEA AND/OR VOMITING Last administered on 07/26/18 18:07; Admin Dose 4 MG; Start 07/13/18 at 09:00 Sevelamer Carbonate (Renvela) 2,400 mg WITH MEALS PO Last administered on 07/28/18 08:31; Admin Dose 2,400 MG; Start 07/13/18 at 11:40 Multivit/Ca Carb/ B Cmplx/FA/Prenat (Aminah-Tanisha) 1 tab DAILY PO Last administered on 07/28/18 08:31; Admin Dose 1 TAB; Start 07/13/18 at 09:00 Lidocaine (Lidoderm) 1 patch DAILY TD Last administered on 07/20/18 09:33; Admin Dose 1 PATCH; Start 07/13/18 at 21:30 Bromocriptine Mesylate (Parlodel) 2.5 mg QHS PO Last administered on 07/28/18 21:19; Admin Dose 2.5 MG; Start 07/14/18 at 21:00 Naproxen (Naprosyn) 500 mg BID PRN PO PAIN AND/OR INFLAMMATION; Start 07/13/18 at 23:30 Pantoprazole (Protonix Tab) 40 mg DAILY@06 PO Last administered on 07/29/18 05:48; Admin Dose 40 MG; Start 07/14/18 at 06:00 Zolpidem Tartrate (Ambien) 10 mg QHS PRN PO INSOMNIA; Start 07/13/18 at 23:30 Diphenhydramine HCl (Benadryl) 50 mg Q6H PRN IV itchiness Last administered on 07/29/18 08:11; Admin Dose 50 MG; Start 07/14/18 at 03:00 Calcitriol (Rocaltrol) 0.25 mcg DAILY PO Last administered on 07/29/18 12:45; Admin Dose 0.25 MCG; Start 07/15/18 at 09:00 Cefazolin Sodium 50 ml @ 100 mls/hr Q24H IVPB Last administered on 07/28/18 21:19; Admin Dose 100 MLS/HR; Start 07/15/18 at 21:00 Midodrine (Proamatine) 10 mg TID@,13,17 PO Last administered on 07/29/18 12:44; Admin Dose 10 MG; Start 07/16/18 at 13:00 Alteplase, Recombinant (Cathflo (Activase)) 2 mg MAY REPEAT X1 PRN CATHETER IF CATHETER REMAINS OCCULUDED; Start 07/22/18 at 17:30 Hydromorphone HCl (Dilaudid) 0.5 mg Q4H PRN IV SEVERE PAIN LEVEL 7-10 Last administered on 07/29/18 11:38; Admin Dose 0.5 MG; Start 07/28/18 at 13:30 Epoetin Maxwell-epbx (Retacrit) 3,000 unit MoWeFr@1700 SC ; Start 07/28/18 at 17:00 Heparin Sodium (Porcine) (Heparin (1000 Units/ml)) 4,500 unit AFTER DIALYSIS CATHETER Last administered on 07/29/18 10:49; Admin Dose 4,500 UNIT; Start 07/29/18 at 08:30 EDILMA CASIANO Jul 29, 2018 13:02
[2018-07-29] MEDS: EPOETIN ALFA-EPBX (ESRD) 3,000 UNIT/ML VIAL SC SCH (18:36)
--- NOTE | 2018-07-29 19:14 | QN ---
Documentation Comment Pt has been anxious for discharge today; afebrile, BP has been ok. Already completed HD. Note SCreat running high this AM Will check post dialysis creat to eval clearance of this permacth which may not be adequate. This is already clear because cath has bot been working well CAMERON ISIDRO MD Jul 29, 2018 19:14
[2018-07-29] MEDS: CEFAZOLIN 1 GM/50 ML (PMX) 50 ML IVPB SCH (20:25)
[2018-07-29] MEDS: BROMOCRIPTINE 2.5 MG TAB PO SCH (20:26)
--- NOTE | 2018-07-29 20:59 | CONS ---
Assessment/Plan Assessment/Plan Hospital Course (Demo Recall) # sepsis, heme/onc - sepsis due to bacteremia, resolved - bacteremia due to MSSA, resolving - h/o transthoracic echo on 07/19/2018, no e/o endocarditis - s/p removal of permacath on R chest wall on 07/14/2018 - s/p R femoral HD justin catheter placement 07/14/2018, replaced by HD permacath 07/19/2018 - pain/increased sensitivity of R groin after replacement of the justin with permacath. 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 Last used for HD in 04/2018. 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 The culture of the tip of the removed catheter, blood cultures and swab of the catheter site were negative. Pt completed an empiric course of renally dosed pip/tazo (06/13/2018-06/18/2018) - h/o placement of a permacath on R chest wall on 06/23/2018 - h/[place] [facility] [place] - h/o 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 Pt took renally dosed valACV (07/15/2018-07/17/2018) - adverse reaction to vancomycin (pruritus) - adverse reaction to linezolid (thrombocytopenia). Linezolid was discontinued (06/12/2018-06/17/2018) recommendations: - complete renally dosed cefazolin (07/15/2018-) for bacteremia due to MSSA through 07/29/2018 (today) Management d/w patient Consultation Date/Type/Reason Admit Date/Time Jul 13, 2018 at 05:59 Initial Consult Date 07/14/18 Type of Consult ID Requesting Provider: LUANNE WALTER MD Date/Time of Note DATE: 07/29/18 TIME: 20:56 24 HR Interval Summary Constitutional: no complaints Detailed Summary Eyes: no complaints ENT: no complaints Respiratory: no complaints Cardiovascular: no complaints Gastrointestinal: no complaints Genitourinary: other (+discomfort, not pain of R groin) Musculoskeletal: no complaints Skin: no complaints Neurologic: no complaints Exam/Review of Systems Exam Vitals Vital Signs Date Temp Pulse Resp B/P (MAP) Pulse Ox O2 O2 Flow FiO2 Time Delivery Rate 07/29/18 98.1 84 18 70/40 (50) 96 19:45 07/29/18 Room Air 08:00 Intake and Output 07/28/18 07/28/18 07/29/18 1515:00 23:00 07:00 IntakeIntake Total 770 ml BalanceBalance 770 ml Constitutional: alert, frail Psych: no complaints, nl mood/affect Head: normocephalic, other (+alopecia) Eyes: nl conjunctiva, EOMI, nl lids, nl sclera ENMT: nl external ears & nose, nl nasal mucosa & septum, mucosa pink and moist Neck: other (not swollen) Respiratory: other (normal resp effort) Cardiovascular: No edema Gastrointestinal: No distended Genitourinary - Female: other (+HD catheter in R groin) Musculoskeletal: nl extremities to inspection, nl gait and stance Extremities: normal pulses Results Result Diagram: 07/27/18 0433 07/29/18 0439 Results 24hrs Laboratory Tests Test 07/29/18 04:39 Sodium Level 138 Potassium Level 5.0 Chloride Level 99 Carbon Dioxide Level 23 Anion Gap 16 H Blood Urea Nitrogen 49 #H Creatinine 11.50 #H Est Glomerular Filtrat Rate mL/min 4 L Glucose Level 92 Calcium Level 8.9 Medications Medication Current Medications Acetaminophen (Tylenol Tab) 650 mg Q4H PRN PO MILD PAIN(1-3)OR ELEVATED TEMP Last administered on 07/14/18 02:53; Admin Dose 650 MG; Start 07/13/18 at 09:00 Ondansetron HCl (Zofran Inj) 4 mg Q6H PRN IV NAUSEA AND/OR VOMITING Last administered on 07/26/18 18:07; Admin Dose 4 MG; Start 07/13/18 at 09:00 Sevelamer Carbonate (Renvela) 2,400 mg WITH MEALS PO Last administered on 08:31; Admin Dose 2,400 MG; Start 07/13/18 at 11:40 Multivit/Ca Carb/ B Cmplx/FA/Prenat (Aminah-Tanisha) 1 tab DAILY PO Last administered on 07/28/18 08:31; Admin Dose 1 TAB; Start 07/13/18 at 09:00 Lidocaine (Lidoderm) 1 patch DAILY TD Last administered on 07/20/18 09:33; Admin Dose 1 PATCH; Start 07/13/18 at 21:30 Bromocriptine Mesylate (Parlodel) 2.5 mg QHS PO Last administered on 07/29/18 20:26; Admin Dose 2.5 MG; Start 07/14/18 at 21:00 Naproxen (Naprosyn) 500 mg BID PRN PO PAIN AND/OR INFLAMMATION; Start 07/13/18 at 23:30 Pantoprazole (Protonix Tab) 40 mg DAILY@06 PO Last administered on 07/29/18 05:48; Admin Dose 40 MG; Start 07/14/18 at 06:00 Zolpidem Tartrate (Ambien) 10 mg QHS PRN PO INSOMNIA; Start 07/13/18 at 23:30 Diphenhydramine HCl (Benadryl) 50 mg Q6H PRN IV itchiness Last administered on 07/29/18 14:04; Admin Dose 50 MG; Start 07/14/18 at 03:00 Calcitriol (Rocaltrol) 0.25 mcg DAILY PO Last administered on 07/29/18 12:45; Admin Dose 0.25 MCG; Start 07/15/18 at 09:00 Cefazolin Sodium 50 ml @ 100 mls/hr Q24H IVPB Last administered on 07/29/18 20:25; Admin Dose 100 MLS/HR; Start 07/15/18 at 21:00 Midodrine (Proamatine) 10 mg TID@09,13,17 PO Last administered on 07/29/18 12:44; Admin Dose 10 MG; Start 07/16/18 at 13:00 Alteplase, Recombinant (Cathflo (Activase)) 2 mg MAY REPEAT X1 PRN CATHETER IF CATHETER REMAINS OCCULUDED; Start 07/22/18 at 17:30 Hydromorphone HCl (Dilaudid) 0.5 mg Q4H PRN IV SEVERE PAIN LEVEL 7-10 Last administered on 07/29/18 11:38; Admin Dose 0.5 MG; Start 07/28/18 at 13:30 Epoetin Maxwell-epbx (Retacrit) 3,000 unit MoWeFr@1700 SC Last administered on 07/29/18 18:36; Admin Dose 3,000 UNIT; Start 07/28/18 at 17:00 Heparin Sodium (Porcine) (Heparin (1000 Units/ml)) 4,500 unit AFTER DIALYSIS CATHETER Last administered on 07/29/18 10:49; Admin Dose 4,500 UNIT; Start 07/29/18 at 08:30 GINGER HARDIN M.D. Jul 29, 2018 20:59
[2018-07-29] MEDS: ONDANSETRON 4 MG INJ IV PRN (21:53)
[2018-07-30] MEDS: DIPHENHYDRAMINE 50 MG INJ IV PRN ×2 (02:26→08:29)
[2018-07-30 02:33] VITALS: BP 75/43; PULSE 84; RESP 18
[2018-07-30 02:45] VITALS: BP 93/50; PULSE 79
[2018-07-30] MEDS: PANTOPRAZOLE (EC) 40 MG TAB PO SCH (06:00)
[2018-07-30 07:27] VITALS: BP 80/57; RESP 19
[2018-07-30] MEDS: CALCITRIOL 0.25 MCG CAP PO SCH (08:29)
[2018-07-30] MEDS: MULTIVIT/CA CARB/B CMPLX/FA TAB PO SCH (08:29)
[2018-07-30] MEDS: SEVELAMER CARBONATE 800 MG TABLET PO SCH (08:29)
[2018-07-30] MEDS: LIDOCAINE 5% PATCH TD SCH (09:00)
[2018-07-30] MEDS: MIDODRINE 5 MG TAB PO SCH (09:35)
[2018-07-30] MEDS: HYDROmorphONE 0.5 MG/0.5 ML SYG IV PRN (11:10)
--- NOTE | 2018-07-30 11:46 | PN ---
Date/Time of Note Date/Time of Note DATE: 07/30/18 TIME: 11:39 Assessment/Plan VTE Prophylaxis Risk score (from Nsg)>0 risk: 4 SCD applied (from Ns): Yes SCD contraindicated: other Pharmacological prophylaxis: other Lines/Catheters IV Catheter Type (from Nrs): Permacath Urinary Cath still in place: No Assessment/Plan Problems: (1) End stage kidney disease Status: Chronic (2) Anemia Status: Chronic Qualifiers: Anemia type: iron deficiency (3) Renal osteodystrophy Status: Chronic Assessment/Plan pt may be dcd d/w pt for op eval for avg placement at [facility] Result Diagram: 07/30/184 07/30/184 Results 24hrs Laboratory Tests Test 07/30/18 04:54 White Blood Count 7.1 Red Blood Count 4.08 #L Hemoglobin 13.4 # Hematocrit 41.9 # Mean Corpuscular Volume 102.7 H Mean Corpuscular Hemoglobin 32.8 Mean Corpuscular Hemoglobin Concent 32.0 Red Cell Distribution Width 15.3 H Platelet Count 252 Mean Platelet Volume 11.4 H Immature Granulocytes % 0.100 Neutrophils % 61.4 Lymphocytes % 23.0 Monocytes % 9.7 Eosinophils % 4.4 Basophils % 1.4 Nucleated Red Blood Cells % 0.0 Immature Granulocytes # 0.010 Neutrophils # 4.4 Lymphocytes # 1.6 Monocytes # 0.7 Eosinophils # 0.3 Basophils # 0.1 Nucleated Red Blood Cells # 0.0 Sodium Level 141 Potassium Level 5.7 H Chloride Level 98 Carbon Dioxide Level 22 Anion Gap 21 H Blood Urea Nitrogen 37 #H Creatinine 9.16 #H Est Glomerular Filtrat Rate mL/min 5 L Glucose Level 74 Calcium Level 9.7 Exam/Review of Systems Exam Vitals Vital Signs Date Temp Pulse Resp B/P (MAP) Pulse Ox O2 O2 Flow FiO2 Time Delivery Rate 07/30/18 98.2 19 80/57 (65) 96 07:27 07/30/18 84 02:33 07/29/18 Room Air 08:00 Intake and Output 07/29/18 07/29/18 07/30/18 1515:00 23:00 07:00 IntakeIntake Total 870 ml OutputOutput Total 2100 ml BalanceBalance -2100 ml 870 ml Constitutional: alert, oriented, well developed Psych: no complaints Head: normocephalic Eyes: nl conjunctiva ENMT: nl external ears & nose Neck: supple Respiratory: clear to auscultation Cardiovascular: regular rate and rhythm Gastrointestinal: soft, nl liver, spleen Musculoskeletal: nl extremities to inspection Extremities: normal pulses Results Results 24hrs Laboratory Tests Test 07/30/18 04:54 White Blood Count 7.1 Red Blood Count 4.08 #L Hemoglobin 13.4 # Hematocrit 41.9 # Mean Corpuscular Volume 102.7 H Mean Corpuscular Hemoglobin 32.8 Mean Corpuscular Hemoglobin Concent 32.0 Red Cell Distribution Width 15.3 H Platelet Count 252 Mean Platelet Volume 11.4 H Immature Granulocytes % 0.100 Neutrophils % 61.4 Lymphocytes % 23.0 Monocytes % 9.7 Eosinophils % 4.4 Basophils % 1.4 Nucleated Red Blood Cells % 0.0 Immature Granulocytes # 0.010 Neutrophils # 4.4 Lymphocytes # 1.6 Monocytes # 0.7 Eosinophils # 0.3 Basophils # 0.1 Nucleated Red Blood Cells # 0.0 Sodium Level 141 Potassium Level 5.7 H Chloride Level 98 Carbon Dioxide Level 22 Anion Gap 21 H Blood Urea Nitrogen 37 #H Creatinine 9.16 #H Est Glomerular Filtrat Rate mL/min 5 L Glucose Level 74 Calcium Level 9.7 Medications Medication Current Medications Acetaminophen (Tylenol Tab) 650 mg Q4H PRN PO MILD PAIN(1-3)OR ELEVATED TEMP Last administered on 07/14/18 02:53; Admin Dose 650 MG; Start 07/13/18 at 09:00 Ondansetron HCl (Zofran Inj) 4 mg Q6H PRN IV NAUSEA AND/OR VOMITING Last administered on 07/29/18 21:53; Admin Dose 4 MG; Start 07/13/18 at 09:00 Sevelamer Carbonate (Renvela) 2,400 mg WITH MEALS PO Last administered on 07/30/18 08:29; Admin Dose 2,400 MG; Start 07/13/18 at 11:40 Multivit/Ca Carb/ B Cmplx/FA/Prenat (Aminah-Tanisha) 1 tab DAILY PO Last administered on 07/30/18 08:29; Admin Dose 1 TAB; Start 07/13/18 at 09:00 Lidocaine (Lidoderm) 1 patch DAILY TD Last administered on 07/20/18 09:33; Admin Dose 1 PATCH; Start 07/13/18 at 21:30 Bromocriptine Mesylate (Parlodel) 2.5 mg QHS PO Last administered on 07/29/18 20:26; Admin Dose 2.5 MG; Start 07/14/18 at 21:00 Naproxen (Naprosyn) 500 mg BID PRN PO PAIN AND/OR INFLAMMATION; Start 07/13/18 at 23:30 Pantoprazole (Protonix Tab) 40 mg DAILY@06 PO Last administered on 07/29/18 05:48; Admin Dose 40 MG; Start 07/14/18 at 06:00 Zolpidem Tartrate (Ambien) 10 mg QHS PRN PO INSOMNIA; Start 07/13/18 at 23:30 Diphenhydramine HCl (Benadryl) 50 mg Q6H PRN IV itchiness Last administered on 07/30/18 08:29; Admin Dose 50 MG; Start 07/14/18 at 03:00 Calcitriol (Rocaltrol) 0.25 mcg DAILY PO Last administered on 07/30/18 08:29; Admin Dose 0.25 MCG; Start 07/15/18 at 09:00 Midodrine (Proamatine) 10 mg TID@09,13,17 PO Last administered on 07/30/18 09:35; Admin Dose 10 MG; Start 07/16/18 at 13:00 Alteplase, Recombinant (Cathflo (Activase)) 2 mg MAY REPEAT X1 PRN CATHETER IF CATHETER REMAINS OCCULUDED; Start 07/22/18 at 17:30 Hydromorphone HCl (Dilaudid) 0.5 mg Q4H PRN IV SEVERE PAIN LEVEL 7-10 Last administered on 07/30/18 11:10; Admin Dose 0.5 MG; Start 07/28/18 at 13:30 Epoetin Maxwell-epbx (Retacrit) 3,000 unit MoWeFr@1700 SC Last administered on 07/29/18 18:36; Admin Dose 3,000 UNIT; Start 07/28/18 at 17:00 Heparin Sodium (Porcine) (Heparin (1000 Units/ml)) 4,500 unit AFTER DIALYSIS CATHETER Last administered on 07/29/18 10:49; Admin Dose 4,500 UNIT; Start 07/29/18 at 08:30 ANNIE SANTOS MD Jul 30, 2018 11:46
--- NOTE | 2018-07-30 11:54 | DS ---
Date/Time of Note Date/Time of Note DATE: 07/30/18 TIME: 11:52 Discharge Summary Admission/Discharge Info Admit Date/Time Jul 13, 2018 at 05:59 Discharge Date/Time 07/30/18 Discharge Diagnosis -Radiculopathy of bilateral lower extremities. Dr. Giles is following in pain management consultation. -Line sepsis with MSSA bacteremia, continue cefazolin until 07/29/18. Dr Leone is following in infection disease consultation. Right chest Perez catheter d/madisyn. s/p R fem Permacath placement. No endocarditis per TTE. -Hemodialysis dependent end-stage renal disease. Dr. Silverio is following in nephrology consultation. -Hyperkalemia -History of hyperparathyroidism, status post subtotal parathyroidectomy of the right superior and inferior glands, partial left inferior gland in June 2016. Status post left upper and lower parathyroidectomy and partial left thyroid lobectomy in November [address] Morales, ENT. 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 Francisco is following in vascular surgery consultation. Recommendations for graft placement as an outpatient after completing treatment for infection. -Leukemia, s/p hemotherapy, last cycle was in early 2018 Patient Condition: Fair Consults Nephrology Pain Management Infectious Disease Procedures none Hx of Present Illness Patient with history of leukemia, renal failure comes in with line sepsis. Hospital Course Patient with history of leukemia, renal failure comes in with line sepsis. Patient was treated with antibiotics and when felt to be stable, patient was sent home. -Possible line sepsis, - line is dcd by Dr Bello today -follow-up on blood cultures from the catheter - ID consult-Dr. Arora in infection disease consultation. -am labs - c/s aground port insertion side - Hyperkalemia - pr nephro - HD per nephro -Hemodialysis dependent end-stage renal disease. - HD per Dr Silverio in nephrology consultation. -History of hyperparathyroidism, status post subtotal parathyroidectomy of the right superior and inferior glands, partial left inferior gland in June 2016. - Status post left upper and lower parathyroidectomy and partial left thyroid lobectomy in November [address] Morales, ENT. -Right chest hemodialysis catheter present on admission. -Left upper extremity AV fistula nonfunctioning - Dr. Nolan boone in vascular surgery consultation. Home Meds Active Scripts Pantoprazole* (Pantoprazole*) 40 Mg Tablet.dr, 40 MG PO DAILY@06 for 30 Days Prov:EDILMA CASIANO 06/25/18 Bromocriptine Mesylate* (Parlodel*) 2.5 Mg Tablet, 2.5 MG PO QHS for 30 Days, TAB Prov:EDILMA CASIANO 06/25/18 Midodrine* (Midodrine*) 5 Mg Tablet, 5 MG PO TID@09,13,17 for 30 Days, TAB Prov:EDILMA CASIANO 06/25/18 Naproxen* (Naprosyn*) 500 Mg Tablet, 500 MG PO BID PRN for PAIN AND/OR INFLAMMATION, #30 TAB Prov:LIANA DAWSON MD 05/14/18 Reported Medications Sevelamer Hcl* (Renagel*) 800 Mg Tablet, 800 MG PO WITH MEALS, TAB 05/14/18 Zolpidem Tartrate* (Zolpidem Tartrate*) 10 Mg Tablet, 10 MG PO QHS PRN for INSOMNIA, #30 TAB 07/06/17 Primary Care Provider [facility] Pending Labs Laboratory Tests Test 07/30/18 04:54 White Blood Count 7.1 10^3/ul (4.8-10.8) Red Blood Count 4.08 10^6/ul (4.20-5.40) Hemoglobin 13.4 g/dl (12.0-16.0) Hematocrit 41.9 % (37.0-47.0) Mean Corpuscular Volume 102.7 fl (82.0-101.0) Mean Corpuscular Hemoglobin 32.8 pg (29.0-33.0) Mean Corpuscular Hemoglobin Concent 32.0 g/dl (32.0-37.0) Red Cell Distribution Width 15.3 % (11.5-14.5) Platelet Count 252 10^3/UL (140-415) Mean Platelet Volume 11.4 fl (7.4-10.4) Immature Granulocytes % 0.100 % (0.001-0.429) Neutrophils % 61.4 % (39.0-77.0) Lymphocytes % 23.0 % (15.0-51.0) Monocytes % 9.7 % (0.0-11.0) Eosinophils % 4.4 % (0.0-7.0) Basophils % 1.4 % (0.0-2.0) Nucleated Red Blood Cells % 0.0 /100WBC (0.0-0.0) Immature Granulocytes # 0.010 10^3/ul (0.0-0.031) Neutrophils # 4.4 10^3/ul (1.6-7.5) Lymphocytes # 1.6 10^3/ul (0.8-2.9) Monocytes # 0.7 10^3/ul (0.3-0.9) Eosinophils # 0.3 10^3/ul (0.0-0.5) Basophils # 0.1 10^3/ul (0.0-0.1) Nucleated Red Blood Cells # 0.0 10^3/ul (0.0-0.0) Sodium Level 141 mmol/L (135-144) Potassium Level 5.7 mmol/L (3.5-5.1) Chloride Level 98 mmol/L (97-110) Carbon Dioxide Level 22 mmol/L (21-31) Anion Gap 21 (5-13) Blood Urea Nitrogen 37 mg/dl (7-20) Creatinine 9.16 mg/dl (0.44-1.00) Est Glomerular Filtrat Rate mL/min 5 mL/min (>60) Glucose Level 74 mg/dl (70-220) Calcium Level 9.7 mg/dl (8.4-10.2) ANGELY PANG Jul 30, 2018 11:54
[2018-08-02 08:23] VITALS: BP 120/67; PULSE 85; RESP 19
== END 2018-07-30 12:40 | disposition home or self-care (01) | DRG 314 ==
LOC: E/R 03:59 → MS1 05:59 → CANRESERV 06:12
PROVIDERS: ADMIT Internal Medicine; ATTEND Internal Medicine
PROC: 5A1D70Z Performance of Urinary Filtration, Intermittent, Less than 6 Hours Per Day (ICD-10-PCS; 2018-07-14)
PROC: 02PYX3Z Removal of Infusion Device from Great Vessel, External Approach (ICD-10-PCS; 2018-07-14)
PROC: 06H033Z Insertion of Infusion Device into Inferior Vena Cava, Percutaneous Approach (ICD-10-PCS; principal; 2018-07-14 13:00)
PROC: 0JHL3XZ Insertion of Tunneled Vascular Access Device into Right Upper Leg Subcutaneous Tissue and Fascia, Percutaneous Approach (ICD-10-PCS; 2018-07-19)
PROC: 06H033Z Insertion of Infusion Device into Inferior Vena Cava, Percutaneous Approach (ICD-10-PCS; 2018-07-19)
PROC: 06PYX3Z Removal of Infusion Device from Lower Vein, External Approach (ICD-10-PCS; 2018-07-19)
DX: T80.211A Bloodstream infection due to central venous catheter, initial encounter (principal); A41.01 Sepsis due to Methicillin susceptible Staphylococcus aureus; N18.6 End stage renal disease; I12.0 Hypertensive chronic kidney disease with stage 5 chronic kidney disease or end stage renal disease; C95.00 Acute leukemia of unspecified cell type not having achieved remission; T82.868A Thrombosis due to vascular prosthetic devices, implants and grafts, initial encounter; E87.5 Hyperkalemia; D69.6 Thrombocytopenia, unspecified; M54.10 Radiculopathy, site unspecified; Y83.2 Surgical operation with anastomosis, bypass or graft as the cause of abnormal reaction of the patient, or of later complication, without mention of misadventure at the time of the procedure; N25.0 Renal osteodystrophy; I95.3 Hypotension of hemodialysis; B00.1 Herpesviral vesicular dermatitis; D63.1 Anemia in chronic kidney disease; Z99.2 Dependence on renal dialysis; Z53.8 Procedure and treatment not carried out for other reasons
CPT/HCPCS: 36415; 36558; 71045; 72148; 76536; 80048; 80053; 82550; 83605; 84100; 84484; 85025; 85610; 85730; 87070; 87081; 87340; 87400; 88300; 90935; 93005; 93306; 93931; 96374; 96375; 97110; 97116; 97161; 97530; C1750; C1752; J0690; J0692; J1170; J1200; J1644; J1956; J2185; J2250; J2270; J2405; J2997; J3010; J7040; Q4081; Q5105

== ENCOUNTER 2018-10-19 23:22 | Emergency (ER) | payer OTHER ==
[~2018-10-19] VITALS: Ht 162.6 cm; Wt 52.0 kg
[2018-10-19 23:27] VITALS: Ht 162.6 cm; Wt 52.0 kg
[2018-10-20] MEDS ORDERED: SOD CHLORIDE 0.9% 1,000 ML IV ONE (00:30)
[2018-10-20] MEDS ORDERED: KETOROLAC 15 MG INJ IV STA (00:30)
[2018-10-20] MEDS ORDERED: ONDANSETRON 4 MG INJ IV STA (01:13)
[2018-10-20] MEDS ORDERED: morphine 4 MG/ML VIAL IV STA (01:13)
[2018-10-20] MEDS ORDERED: ONDANSETRON 4 MG INJ IV ONE (03:22)
[2018-10-20] MEDS ORDERED: morphine 4 MG/ML VIAL IV ONE (03:22)
--- NOTE | 2018-10-20 04:03 | ERD ---
ER Documentation Chief Complaint Chief Complaint cielo flank pain x 4 days; hx hemodialysis & chemotx for bone CA HPI This is a 33-year-old female with a past medical history of hypothyroidism secondary to thyroidectomy, end-stage renal disease status post left femoral vascular catheter on dialysis Wednesday/Wednesday/Wednesday, leukemia actively on chemotherapy, last received chemotherapy approximately 5 days ago who is presenting with several days of diffuse full body constant aching gnawing moderate bone pains. The patient reports that she usually has a prescription for 10 mg Ryan tablets at home, but she ran out of this medication. The patient went to her oncologist's office today to get a refill, but he is reportedly out of town. She presents today for relief of her pain. The patient did complete approximately 2 hours of dialysis today, but she was unable to complete the third hour due to her pain. The patient denies feeling sick recently. The patient denies fever or chills. The patient has had no headache or vision changes. The patient denies lightheadedness or dizziness. The patient has had no chest pain or trouble breathing. The patient denies nausea or vomiting. The patient denies abdominal pain. The patient denies changes to bowel movements or urination. The patient has had no focal deficits. The patient has had no weakness or numbness or tingling to the face or extremities. ROS All systems reviewed and are negative except as per history of present illness. Medications Home Meds Reported Medications Sevelamer Hcl* (Renagel*) 800 Mg Tablet, 800 MG PO WITH MEALS, TAB 05/14/18 Discontinued Reported Medications Zolpidem Tartrate* (Zolpidem Tartrate*) 10 Mg Tablet, 10 MG PO QHS PRN for INSOMNIA, #30 TAB 07/06/17 Discontinued Scripts Pantoprazole* (Pantoprazole*) 40 Mg Tablet.dr, 40 MG PO DAILY@06 for 30 Days Prov:EDILMA CASIANO 06/25/18 Bromocriptine Mesylate* (Parlodel*) 2.5 Mg Tablet, 2.5 MG PO QHS for 30 Days, TAB Prov:EDILMA CASIANO 06/25/18 Midodrine* (Midodrine*) 5 Mg Tablet, 5 MG PO TID@09,13,17 for 30 Days, TAB Prov:EDILMA CASIANO 06/25/18 Naproxen* (Naprosyn*) 500 Mg Tablet, 500 MG PO BID PRN for PAIN AND/OR INFLA MMATION, #30 TAB Prov:LIANA DAWSON MD 05/14/18 Allergies Allergies: Coded Allergies: vancomycin (Unverified Allergy, Severe, 10/20/18) pruritus pineapple (Unverified Allergy, Mild, 10/20/18) watermelon (Unverified Allergy, Unknown, 10/20/18) PMhx/Soc History of Surgery: Yes (thyroid removal 2014) Anesthesia Reaction: No Hx 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 Disorder: Yes (2 "mini strokes" in 2018) Hx Respiratory Disorders: No Hx Cardiac Disorders: Yes Hx Psychiatric Problems: No Hx Miscellaneous Medical Probl: Yes (ESRD ON HD , S/P PARATHYROIDECTOMY, SEPSIS, LEUKEMIA) Hx Alcohol Use: Yes Hx Substance Use: Yes Hx Tobacco Use: Yes Smoking Status: Former smoker FmHx Family History: No diabetes Physical Exam Vitals Vital Signs Date Temp Pulse Resp B/P (MAP) Pulse Ox O2 O2 Flow FiO2 Time Delivery Rate 10/20/18 94 17 139/115 98 Room Air 00:30 (123) 10/19/18 98.0 58 20 111/58 96 23:27 (75) Physical Exam Const: No acute distress, thin appearing Head: Atraumatic, normocephalic Eyes: Normal Conjunctiva, no scleral icterus. ENT: Normal External Ears, Nose and Mouth. Neck: Full range of motion. No meningismus. Resp: Clear to auscultation bilaterally Cardio: Regular rate and rhythm, no murmurs Abd: Soft, non tender, non distended. Normal bowel sounds Skin: No petechiae or rashes Back: No midline or flank tenderness Ext: No cyanosis, or edema Neur: Awake and alert, no facial asymmetry, moves all extremities spontaneously, no obvious focal deficits. Psych: Normal Mood and Affect Result Diagram: 10/20/18 0120 10/20/18 0120 Results 24 hrs Laboratory Tests Test 10/20/18 01:20 White Blood Count 14.8 10^3/ul Red Blood Count 2.69 10^6/ul Hemoglobin 8.6 g/dl Hematocrit 27.6 % Mean Corpuscular Volume 102.6 fl Mean Corpuscular Hemoglobin 32.0 pg Mean Corpuscular Hemoglobin Concent 31.2 g/dl Red Cell Distribution Width 16.0 % Platelet Count 235 10^3/UL Mean Platelet Volume 11.1 fl Immature Granulocytes % 0.500 % Neutrophils % 77.1 % Lymphocytes % 11.2 % Monocytes % 9.3 % Eosinophils % 1.6 % Basophils % 0.3 % Nucleated Red Blood Cells % 0.0 /100WBC Immature Granulocytes # 0.080 10^3/ul Neutrophils # 11.4 10^3/ul Lymphocytes # 1.7 10^3/ul Monocytes # 1.4 10^3/ul Eosinophils # 0.2 10^3/ul Basophils # 0.0 10^3/ul Nucleated Red Blood Cells # 0.0 10^3/ul Sodium Level 139 mmol/L Potassium Level 4.9 mmol/L Chloride Level 95 mmol/L Carbon Dioxide Level 29 mmol/L Anion Gap 15 Blood Urea Nitrogen 30 mg/dl Creatinine 5.96 mg/dl Est Glomerular Filtrat Rate mL/min 8 mL/min Glucose Level 91 mg/dl Calcium Level 8.7 mg/dl Total Bilirubin 0.3 mg/dl Direct Bilirubin 0.00 mg/dl Indirect Bilirubin 0.3 mg/dl Aspartate Amino Transf (AST/SGOT) 18 IU/L Alanine Aminotransferase (ALT/SGPT) 18 IU/L Alkaline Phosphatase 63 IU/L Total Protein 7.5 g/dl Albumin 4.0 g/dl Globulin 3.50 g/dl Albumin/Globulin Ratio 1.14 Lipase 15 U/L Current Medications Medications Dose Sig/Twila Start Time Status Last (Trade) Ordered Route PRN Stop Time Admin Dose Reason Admin Sodium 1,000 ml @ Q1H ONCE 10/20/18 DC 10/20/18 Chloride 1,000 mls/hr IV 00:30 00:34 10/20/18 01:29 Ketorolac 15 mg ONCE STAT 10/20/18 DC 10/20/18 Tromethamine IV 00:30 00:34 (Toradol) 10/20/18 00:31 Morphine 4 mg ONCE STAT 10/20/18 DC 10/20/18 Sulfate IV 01:13 01:26 (morphine) 10/20/18 01:14 Ondansetron 4 mg ONCE STAT 10/20/18 DC 10/20/18 HCl (Zofran IV 01:13 01:26 Inj) 10/20/18 01:14 Morphine 4 mg ONCE ONCE 10/20/18 DC 10/20/18 Sulfate IV 03:22 03:27 (morphine) 10/20/18 03:23 Ondansetron 4 mg ONCE ONCE 10/20/18 DC 10/20/18 HCl (Zofran IV 03:22 03:27 Inj) 10/20/18 03:23 Procedures/MDM MDM The patient's presentation warrants further investigation. Previous medical records, if available, were reviewed. LABS The patient's laboratory testing was obtained and reviewed. No emergent treatment was required unless described below. CBC: Leukocytosis, which I am concerned is related to her leukemia. Low clinical suspicion for a systemic infection. Macrocytic anemia is evident, not emergent, no evidence of acute bleeding. Normal platelet count. Chemistry: No E/o severe acidosis or alkalosis or liver disease or diabetic ketoacidosis. Elevated BUN and creatinine in line with her known end-stage renal disease. No electrolyte abnormalities. Lipase: No E/o pancreatitis Urine: Patient does not make urine TREATMENT/DISPOSITION The patient presents with exacerbated chronic generalized bone pains, which I suspect was exacerbated by her recent chemotherapy completion. The patient was given morphine in the emergency department for symptom control with significant improvement of her pain. The patient reports running out of her prescription for Ryan. According to the patient's cures database, she was last given a prescription on October 05. She was given a 4-day supply. With this information, I do feel that it would be appropriate to provide the patient a prescription today. The patient does have a leukocytosis in the ER, which I suspect to be related to her leukemia. The patient is afebrile with unremarkable vital signs. Her symptoms are not consistent with a systemic infection. I do not feel that the patient requires antibiotics at this time. She is not septic and does not require a full sepsis work-up. The patient is not neutropenic. DISCHARGE Upon reevaluation of the patient, symptoms have improved. No emergent diagnoses were identified. At this time, I feel that the patient stable for discharge. The patient was instructed to follow-up with a primary care physician in 1-3 days. The patient will be given strict precautions with which to return to the emergency department. Prescriptions: Ryan The patient's blood pressure was elevated at greater than 120/80 while in the emergency department. The patient was otherwise stable with no evidence of hypertensive urgency or emergency. The patient does not require admission for blood pressure control. I have discussed with the patient the risks of hypertension. I have instructed the patient to return to the ER for any new or worsening symptoms including chest pain, shortness of breath, headache, blurred vision, confusion, nausea, vomiting or LOC. I have advised the patient to follow up with the primary care physician for outpatient monitoring and treatment for hypertension in 1-3 days. Disclaimer: Inadvertent spelling and grammatical errors are likely due to EHR/dictation software use and do not reflect on the overall quality of patient care. Note that the electronic time recorded on this note does not necessarily reflect the actual time of the patient encounter. Departure Diagnosis: Primary Impression: Joint pain following chemotherapy Additional Impressions: History of leukemia Leukocytosis Leukocytosis type: unspecified Qualified Codes: D72.829 - Elevated white blood cell count, unspecified End stage renal disease on dialysis Microcytic anemia Condition: Stable Patient Instructions: Chemotherapy: Common Questions About Activity During Treatment, Chronic Pain, Anemia Additional Instructions: Thank you for for coming to [facility] for your care today. Please ask your nurse or provider if you have questions about your care today and do not leave until all your questions have been answered. Please use any medications given as directed and follow-up with your doctor (or the doctor you were referred to) in the next 1-3 days. If you do not have a primary care doctor you may follow up at the [facility] or [facility] (listed below). You may also use motrin and tylenol as needed for fever and/or pain unless instructed otherwise by your provider or nurse. Indications for more urgent follow-up have been discussed, but you may return to the Emergency Department at ANY time for any worrisome or worsening symptoms. If you have abdominal pain, please know that no test or exam you received is perfect and you should follow up within 8 hours for continued pain. If you had any imaging studies today, such as an X-Ray or CT Scan, these studies will be reviewed later by a radiologist. You will be called if there are important findings that were not identified today, so make sure the contact information you provided at registration is correct. If you received any narcotic pain control medicine today, such as Vicodin, Morphine or Dilaudid, your coordination and judgment may be affected for a number of hours. Please do not drive or operate heavy machinery, and you may want someone to assist you at home. If you were given a prescription for narcotic medication, be aware that it is very addictive- use sparingly and only if necessary. PLEASE SEEK FURTHER EVALUATION AND MANAGEMENT AT YOUR DOCTORS OFFICE WITHIN THE NEXT 1-3 DAYS. IT IS YOUR RESPONSIBILITY TO MAKE AN APPOINTMENT FOR FOLOW-UP CARE. IF YOU HAVE A PRIMARY DOCTOR, PLEASE CALL THEIR OFFICE TO SCHEDULE AN APPOINTMENT FOR FOLLOW UP. IF YOU DO NOT HAVE A PRIMARY DOCTOR YOU CAN CALL OUR PHYSICIAN REFERRAL HOTLINE AT IF YOU CAN NOT AFFORD TO SEE A PHYSICIAN YOU CAN CHOSE FROM THE FOLLOWING [facility]: [facility] [address] [facility] [facility] [facility] [address] [facility] [facility] [address] [facility] [facility] [address] [facility] [address] [facility] [facility] [address] ROHAN KHAN MD Oct 20, 2018 04:01
[2018-10-20] MEDS ORDERED: HYDR-4011 PO (04:04)
[2018-10-20 04:19] VITALS: BP 95/60; PULSE 77; RESP 14
== END 2018-10-20 04:19 | disposition home or self-care (01) ==
LOC: E/R 23:22
DX: D72.829 Elevated white blood cell count, unspecified (principal); M25.50 Pain in unspecified joint; D50.9 Iron deficiency anemia, unspecified; N18.6 End stage renal disease; E03.9 Hypothyroidism, unspecified; C41.9 Malignant neoplasm of bone and articular cartilage, unspecified; Z85.6 Personal history of leukemia; Z99.2 Dependence on renal dialysis; Z87.891 Personal history of nicotine dependence
CPT/HCPCS: 36415; 80053; 83690; 85025; 96374; 96375; 96376; J1885; J2270; J2405; J7030; Z7502

== ENCOUNTER 2018-10-24 15:21 | Inpatient (IN) | payer OTHER ==
[~2018-10-24] VITALS: Ht 157.5 cm; Wt 55.5 kg
[2018-10-24] VITALS (12 sets, daily range): BP systolic 90–163; BP diastolic 37–90; PULSE 90–140; RESP 16
[~2018-10-24 15:21] MED LIST changes: -BROM2.5T16 PO; +CALC667C PO; +FAMO20TA18 PO; +HYDR-4011 PO; -MIDO5TAB PO; -NAPR-985 PO; +ONDA4TAB13 PO; -PANT40TA4 PO; -ZOLP10TA5 PO
[2018-10-24] MEDS ORDERED: ONDANSETRON 4 MG INJ IV STA ×3 (15:56→21:27)
[2018-10-24] MEDS ORDERED: morphine 4 MG/ML VIAL IV STA (15:56)
--- NOTE | 2018-10-24 16:06 | ERD ---
ER Documentation Chief Complaint Chief Complaint generalize pain & itching, incomplete dialysis <2hrs HPI This is a very pleasant 33-year-old female with a past medical history of end- stage renal disease on hemodialysis every Wednesday and Wednesday. The patient has a left femoral vascular catheter. Her last full run of dialysis was 48 hours ago. The patient was scheduled to have dialysis today but when she went to the dialysis center they immediately sent her to the emergency department for further evaluation as the patient's been having a tactile fever with shaking and chills and has a history of leukemia on chemotherapy. She had chemotherapy 48 hours ago. She states that she has been feeling a very deep gnawing pain in all of her bones. This is been present for 2 weeks. It is progressively worsened over the past 2 days. She has a prescription at home for [place] but indicates she ran out of this medication therefore has not taken this for over 2 weeks. Her plastic press operator is Dr. Jones but he is currently out of town and Dr. Núñez is covering. She does not make urine and she indicates that today her dry weight had increased by 8 kg. She denies a productive or nonproductive cough. She did not take any antipyretics prior to arrival. She denies a headache or neck pain. She has no shortness of breath at rest or exertion. She denies any hemoptysis hematemesis or melanotic stools. ROS All systems reviewed and are negative except as per history of present illness. Medications Home Meds Reported Medications Sevelamer Hcl* (Renagel*) 800 Mg Tablet, 800 MG PO WITH MEALS, TAB 05/14/18 Discontinued Reported Medications Zolpidem Tartrate* (Zolpidem Tartrate*) 10 Mg Tablet, 10 MG PO QHS PRN for INSOMNIA, #30 TAB 07/06/17 Discontinued Scripts Hydrocodone/Acetaminophen (Brun[place] 5-325 Tablet) 1 Each Tablet, 1 TAB PO Q8 PRN for PAIN, #9 TAB Prov:ROHAN MCCAULEY MD 10/20/18 Pantoprazole* (Pantoprazole*) 40 Mg Tablet., 40 MG PO DAILY@06 for 30 Days Prov:EDILMA CASIANO 06/25/18 Bromocriptine Mesylate* (Parlodel*) 2.5 Mg Tablet, 2.5 MG PO QHS for 30 Days, TAB Prov:EDILMA CASIANO 06/25/18 Midodrine* (Midodrine*) 5 Mg Tablet, 5 MG PO TID@09,13,17 for 30 Days, TAB Prov:EDILMA CASIANO 06/25/18 Naproxen* (Naprosyn*) 500 Mg Tablet, 500 MG PO BID PRN for PAIN AND/OR INFLAMMATION, #30 TAB Prov:LIANA DAWSON MD 05/14/18 Allergies Allergies: Coded Allergies: vancomycin (Unverified Allergy, Severe, 10/24/18) pruritus pineapple (Unverified Allergy, Mild, 10/24/18) watermelon (Unverified Allergy, Unknown, 10/24/18) PMhx/Soc History of Surgery: Yes (thyroid removal 2014) Anesthesia Reaction: No Hx 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 Disorder: Yes (2 "mini strokes" in 2018) Hx Respiratory Disorders: No Hx Cardiac Disorders: Yes Hx Psychiatric Problems: No Hx Miscellaneous Medical Probl: Yes (ESRD ON HD , S/P PARATHYROIDECTOMY, SEPSIS, LEUKEMIA) Hx Alcohol Use: Yes Hx Substance Use: Yes Hx Tobacco Use: Yes Physical Exam Vitals Vital Signs Date Temp Pulse Resp B/P (MAP) Pulse Ox O2 O2 Flow FiO2 Time Delivery Rate 10/24/18 97.7 101 18 107/51 100 15:25 (69) Physical Exam Constitutional:Well-developed. Well-nourished. HEENT:Normocephalic. Atraumatic.Pupils were equal round reactive to light. Moist mucous membranes.No tonsillar exudates. Neck: No nuchal rigidity. No lymphadenopathy. No posterior cervical spine tenderness or step-offs. Respiratory: Not using accessory muscles of respiration.Lungs were clear to auscultation bilaterally. No rhonchi. No rales. No wheezing. Cardiovascular: Regular rate regular rhythm.No murmurs. No rubs were appreciated.S1, S2 normal. Distal pulses are palpable 2+ bilaterally. GI: Abdomen was soft. Mild tenderness with deep palpation in the left lower quadrant surrounding the left femoral vascular site however vascular site was clean dry and intact with no surrounding erythremia fluctuance or induration. Non Distended. No pulsatile abdominal masses or bruits. No rebound. No guarding. Bowel sounds were present and normal. Muscle skeletal: Full range of motion of both the upper and lower extremities bilaterally.Normal muscle tone.No assymetrical calf tenderness or swelling. Skin: No petechia, no purpura. No lesions on the palms or the soles of the feet. No maculopapular rash. NEURO: Patient was alert, awake, orientated x3.No facial droop. Gait observed and normal with no ataxia.Speech had regular rate and rhythm. No focal neurolo gical deficits. Result Diagram: 10/24/18 1626 10/24/18 1626 Results 24 hrs Laboratory Tests Test 10/24/18 16:26 White Blood Count 11.7 10^3/ul Red Blood Count 2.66 10^6/ul Hemoglobin 8.3 g/dl Hematocrit 26.6 % Mean Corpuscular Volume 100.0 fl Mean Corpuscular Hemoglobin 31.2 pg Mean Corpuscular Hemoglobin Concent 31.2 g/dl Red Cell Distribution Width 16.3 % Platelet Count 223 10^3/UL Mean Platelet Volume 10.4 fl Immature Granulocytes % 1.400 % Neutrophils % 84.0 % Lymphocytes % 6.8 % Monocytes % 6.5 % Eosinophils % 1.0 % Basophils % 0.3 % Nucleated Red Blood Cells % 0.0 /100WBC Immature Granulocytes # 0.160 10^3/ul Neutrophils # 9.8 10^3/ul Lymphocytes # 0.8 10^3/ul Monocytes # 0.8 10^3/ul Eosinophils # 0.1 10^3/ul Basophils # 0.0 10^3/ul Nucleated Red Blood Cells # 0.0 10^3/ul Prothrombin Time 14.6 Sec Prothrombin Time Ratio 1.1 INR International Normalized Ratio 1.13 Activated Partial Thromboplast Time 49.5 Sec Sodium Level 140 mmol/L Potassium Level 4.9 mmol/L Chloride Level 100 mmol/L Carbon Dioxide Level 29 mmol/L Anion Gap 11 Blood Urea Nitrogen 32 mg/dl Creatinine 5.44 mg/dl Est Glomerular Filtrat Rate mL/min 9 mL/min Glucose Level 92 mg/dl Calcium Level 8.5 mg/dl Total Bilirubin 0.2 mg/dl Direct Bilirubin 0.00 mg/dl Indirect Bilirubin 0.2 mg/dl Aspartate Amino Transf (AST/SGOT) 18 IU/L Alanine Aminotransferase (ALT/SGPT) 25 IU/L Alkaline Phosphatase 81 IU/L Troponin I < 0.012 ng/ml Total Protein 7.3 g/dl Albumin 3.7 g/dl Globulin 3.60 g/dl Albumin/Globulin Ratio 1.02 Current Medications Medications Dose Sig/Twila Start Time Status Last (Trade) Ordered Route PRN Stop Time Admin Dose Reason Admin Morphine 4 mg ONCE STAT 10/24/18 DC 10/24/18 Sulfate IV 15:56 10/24/18 16:34 (morphine) 15:58 Ondansetron 4 mg ONCE STAT 10/24/18 DC 10/24/18 HCl (Zofran IV 15:56 10/24/18 16:33 Inj) 15:58 50 mg ONCE ONCE 10/24/18 DC 10/24/18 Diphenhydrami IV 17:00 10/24/18 17:03 ne HCl 17:01 (Benadryl) Ondansetron 4 mg ER BRIDGE 10/24/18 HCl (Zofran PRN IV 17:30 10/25/18 Inj) NAUSEA/VOMITI 17:29 NG 650 mg ER BRIDGE 10/24/18 Acetaminophen PRN PO 17:30 10/25/18 (Tylenol .MILD PAIN 17:29 Tab) 1-3 OR TEMP Procedures/MDM This is a 33-year-old female with end-stage renal disease who presented to the emergency department with diffuse myalgias and bone pain and history of leukemia and missed dialysis. Chest radiograph was obtained and there was no severe pulmonary vascular congestion to suggest fluid overload. I obtained a 12-lead EKG tracing and there was no peak T waves to suggest hyperkalemia. 12 Lead EKG tracing ordered and reviewed by myself showed: Normal sinus rhythm of 85 bpm and no arrhythmia. PA interval normal. QRS duration normal. No ST segment elevation No ST segment depression. No changes consistent with acute ischemia. The patient's potassium was within normal limits. I spoke with her plastic press operator who requested Dr. Chai Beltran. Dr. Beltran kindly stated he will arrange for emergent dialysis. I obtained blood cultures as the patient stated she had a tactile fever shaking and chills. However the patient was afebrile. She did not appear to have an infectious process with no neutropenia. She did receive analgesic medication will be admitted under the care of her primary care physician Dr. Turner to the telemetry service Departure Diagnosis: Primary Impression: Myalgia Additional Impressions: Leukemia Leukemia type: unspecified Leukemia Active/Remission status: without remission Qualified Codes: C95.90 - Leukemia, unspecified not having achieved remission Renal disease Condition: Serious VIKTOR AVELAR MD Oct 24, 2018 16:06
[2018-10-24] MEDS ORDERED: DIPHENHYDRAMINE 50 MG INJ IV ONE (17:00)
[2018-10-24] MEDS ORDERED: ONDANSETRON 4 MG INJ IV PRN (17:30)
[2018-10-24] MEDS ORDERED: ACETAMINOPHEN 325 MG TAB PO PRN (17:30)
--- NOTE | 2018-10-24 17:39 | CONS ---
Assessment/Plan Assessment/Plan Assessment/Plan (Daily) 1. Septic shock on levophed 2. ESRD on HD MWF schedule , left femoral permacath for HD access 3. Bacteremia with Blood cx growing gram positive cocci in clusters 4. H/o Leukemia currently on chemotherapy, last chem on 10/21/18 5. H/o Primary hyperparathyroidism, status post complete parathyroidectomy and partial left thyroid lobectomy 2 years ago. 6. H/o Anemia of ESRD 7, Difficult vascular Access Plan: seen in ED< getting admitted to ICU Blood cx growing gram positive cocci in clusters - IV abx vancomycin and zosyn to cover for septic shock ID consulted on the roberto s/p HD today 2.1 L removed, will plan for next HD on Wednesday, pt regular schedule for HD is MWF Continue other home meds Thanks for consultation < I will continue to follow up Consultation Date/Type/Reason Admit Date/Time 10/24/2018 Date of Consultation: Oct 25, 2018 Type of Consult NEPHROLOGY Reason for Consultation ESRD on HD Requesting Provider: LUANNE WALTER MD Date/Time of Note DATE: 10/24/18 TIME: 17:39 Hx of Present Illness 33-year-old female with end-stage renal disease on hemodialysis 3 times a week via left femoral hemodialysis catheter, leukemia for which patient currently undergoing chemotherapy last chemo was on Wednesday, history of primary hyperparathyroidism status post complete parathyroidectomy and partial left thyroid lobectomy 2 years ago. Patient with history of bacteremia secondary to MSSA for which patient been treated last admission in June of this year. Patient has a left upper extremity AV fistula which is nonfunctional and had a history of multiple hemodialysis catheter placement and subsequent removal. Patient is currently has a left femoral hemodialysis catheter that was placed 2 months ago at [facility] according to the patient. Patient was sent to the emergency room from hemodialysis center for evaluation of tactile fever and chills. On evaluation in the emergency room patient was noted to have fever 103.0, white blood cells elevated to 13,000 pt was hypotensive started on levophed, Broad spectrum abx and admitted to ICU. renal has been consulted for emergent HD need Constitutional: chills, diaphoresis, febrile, poor po Eyes: no complaints ENT: no complaints Respiratory: no complaints Cardiovascular: no complaints Gastrointestinal: no complaints Genitourinary: no complaints Musculoskeletal: no complaints Skin: no complaints Neurologic: no complaints Endocrine: no complaints Lymphatic: no complaints Psychological: no complaints Immunologic: no complaints Past Medical History Medical History: high cholesterol, hypertension, other (end-stage renal disease on hemodialysis 3 times a week via left femoral hemodialysis catheter, leukemia for which patient currently undergoing chemotherapy last chemo was on Wednesday, history of primary hyperparathyroidism status post complete parathyroidectomy and partial left thyroid lobectomy 2 years ago. Patient with history of bacteremia secondary to MSSA) Home Meds Reported Medications Sevelamer Hcl* (Renagel*) 800 Mg Tablet, 800 MG PO WITH MEALS, TAB 05/14/18 Discontinued Reported Medications Zolpidem Tartrate* (Zolpidem Tartrate*) 10 Mg Tablet, 10 MG PO QHS PRN for INSOMNIA, #30 TAB 07/06/17 Discontinued Scripts Hydrocodone/Acetaminophen ([facility] 5-325 Tablet) 1 Each Tablet, 1 TAB PO Q8 PRN for PAIN, #9 TAB Prov:ROHAN MCCAULEY MD 10/20/18 Pantoprazole* (Pantoprazole*) 40 Mg Tablet.dr, 40 MG PO DAILY@06 for 30 Days Prov:EDILMA CASIANO 06/25/18 Bromocriptine Mesylate* (Parlodel*) 2.5 Mg Tablet, 2.5 MG PO QHS for 30 Days, TAB Prov:EDILMA CASIANO 06/25/18 Midodrine* (Midodrine*) 5 Mg Tablet, 5 MG PO TID@09,13,17 for 30 Days, TAB Prov:EDILMA CASIANO 06/25/18 Naproxen* (Naprosyn*) 500 Mg Tablet, 500 MG PO BID PRN for PAIN AND/OR INFLAMMATION, #30 TAB Prov:LIANA DAWSON MD 05/14/18 Medications Current Medications Ondansetron HCl (Zofran Inj) 4 mg ER BRIDGE PRN IV NAUSEA/VOMITING; Start 10/24/18 at 17:30; Stop 10/25/18 at 17:29 Acetaminophen (Tylenol Tab) 650 mg ER BRIDGE PRN PO .MILD PAIN 1-3 OR TEMP; Start 10/24/18 at 17:30; Stop 10/25/18 at 17:29 Allergies: Coded Allergies: vancomycin (Unverified Allergy, Severe, 10/24/18) pruritus pineapple (Unverified Allergy, Mild, 10/24/18) watermelon (Unverified Allergy, Unknown, 10/24/18) Past Surgical History Past Surgical Hx: other (Status post left upper extremity AV fistula creation in 2016, status post subtotal parathyroidectomy and right superior and inferior glands and partial left inferior gland in June 2016, status post complete parathyroidectomy and partial left thyroid lobectomy in October 2016, status post multiple hemodialysis placement and subsequent removal)) Social History Alcohol Use: none Smoking Status: Never smoker Drug Use: none Exam/Review of Systems Exam Vitals Vital Signs Date Temp Pulse Resp B/P (MAP) Pulse Ox O2 O2 Flow FiO2 Time Delivery Rate 10/24/18 97.7 101 18 107/51 100 15:25 (69) Exam Constitutional: alert Head: normocephalic Neck: supple Respiratory: clear to auscultation Cardiovascular: regular rate and rhythm Gastrointestinal: soft, non-tender Musculoskeletal: nl extremities to inspection Extremities: normal pulses 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: nl mental status Skin: nl turgor Additional Comments Left femoral hemodialysis catheter, left upper extremity AV fistula nonfunctional Results Result Diagram: 10/24/18 1626 10/24/18 1626 Results 24hrs Laboratory Tests Test 10/24/18 16:26 White Blood Count 11.7 #H Red Blood Count 2.66 L Hemoglobin 8.3 L Hematocrit 26.6 L Mean Corpuscular Volume 100.0 Mean Corpuscular Hemoglobin 31.2 Mean Corpuscular Hemoglobin Concent 31.2 L Red Cell Distribution Width 16.3 H Platelet Count 223 Mean Platelet Volume 10.4 Immature Granulocytes % 1.400 H Neutrophils % 84.0 H Lymphocytes % 6.8 L Monocytes % 6.5 Eosinophils % 1.0 Basophils % 0.3 Nucleated Red Blood Cells % 0.0 Immature Granulocytes # 0.160 H Neutrophils # 9.8 H Lymphocytes # 0.8 Monocytes # 0.8 Eosinophils # 0.1 Basophils # 0.0 Nucleated Red Blood Cells # 0.0 Prothrombin Time 14.6 Prothrombin Time Ratio 1.1 INR International Normalized Ratio 1.13 Activated Partial Thromboplast Time 49.5 H Sodium Level 140 Potassium Level 4.9 Chloride Level 100 Carbon Dioxide Level 29 Anion Gap 11 Blood Urea Nitrogen 32 H Creatinine 5.44 H Est Glomerular Filtrat Rate mL/min 9 L Glucose Level 92 Calcium Level 8.5 Total Bilirubin 0.2 Direct Bilirubin 0.00 Indirect Bilirubin 0.2 Aspartate Amino Transf (AST/SGOT) 18 Alanine Aminotransferase (ALT/SGPT) 25 Alkaline Phosphatase 81 Troponin I < 0.012 Total Protein 7.3 Albumin 3.7 Globulin 3.60 H Albumin/Globulin Ratio 1.02 Medications Medication Current Medications Ondansetron HCl (Zofran Inj) 4 mg ER BRIDGE PRN IV NAUSEA/VOMITING; Start 10/24/18 at 17:30; Stop 10/25/18 at 17:29 Acetaminophen (Tylenol Tab) 650 mg ER BRIDGE PRN PO .MILD PAIN 1-3 OR TEMP; Start 10/24/18 at 17:30; Stop 10/25/18 at 17:29 HENRIQUE GRANADO MD Oct 24, 2018 17:39
[2018-10-24] MEDS ORDERED: HEPARIN 1000 UNITS/ML 10 ML INJ CATHETER SCH (18:00)
[2018-10-24] MEDS ORDERED: SODIUM CHLORIDE 0.9% 1L BAG IV PRN (18:00)
[2018-10-24] MEDS ORDERED: ALBUMIN HUMAN 25% 100 ML IV PRN (18:00)
[2018-10-24] MEDS ORDERED: HYDROmorphONE 1 MG/ML SYG IV STA ×2 (18:08→21:27)
[2018-10-25] VITALS (61 sets, daily range): BP systolic 55–139; BP diastolic 32–90; PULSE 62–144; RESP 8–25
[2018-10-25] MEDS: HEPARIN 1000 UNITS/ML 10 ML INJ CATHETER SCH (00:49)
[2018-10-25] MEDS ORDERED: SOD CHLORIDE 0.9% 250 ML IV ONE (01:00)
[2018-10-25] MEDS: ACETAMINOPHEN 325 MG TAB PO PRN ×2 (01:12→14:31)
[2018-10-25] MEDS: HYDROmorphONE 0.5 MG/0.5 ML SYG IV PRN ×5 (01:54→23:04)
[2018-10-25] MEDS: DIPHENHYDRAMINE 50 MG INJ IV PRN ×4 (02:23→23:03)
[2018-10-25] MEDS: SOD CHLORIDE 0.9% 250 ML IV PRN (02:24)
[2018-10-25] MEDS ORDERED: NORepinephrine 8MG/250 ML (PMX 250 ML IV SCH ×2 (02:30→04:30)
[2018-10-25] MEDS ORDERED: VANCOMYCIN IV PER PHARMACY XX SCH (02:30)
[2018-10-25] MEDS: CEFEPIME 1GM/50 ML (PMX) 50 ML IVPB SCH (02:46)
[2018-10-25] MEDS: LINEZOLID 600 MG/300 ML IVPB SCH ×2 (06:02→18:35)
[2018-10-25] MEDS: SEVELAMER CARBONATE 800 MG TABLET PO SCH ×3 (08:06→18:34)
--- NOTE | 2018-10-25 10:43 | CONS ---
Assessment/Plan Assessment/Plan Assessment/Plan (Daily) 1. Septic shock on levophed 2. ESRD on HD MWF schedule , left femoral permacath for HD access 3. Bacteremia with Blood cx growing gram positive cocci in clusters 4. H/o Leukemia currently on chemotherapy, last chem on 10/21/18 5. H/o Primary hyperparathyroidism, status post complete parathyroidectomy and partial left thyroid lobectomy 2 years ago. 6. H/o Anemia of ESRD 7, Difficult vascular Access Plan: levophed for septic shock , BP stable today AM Blood cx growing gram positive cocci in clusters - IV abx vancomycin , cefepime and IV zyvox- to cover for septic shock ID consulted on the case s/p HD yesterday 2.1 L removed,HD ordered for wednesday , pt regular schedule for HD is MWF Continue other home meds will follow up Consultation Date/Type/Reason Admit Date/Time Oct 25, 2018 at 04:13 Initial Consult Date Date/Time of Note DATE: 10/25/18 TIME: 10:43 Exam/Review of Systems Exam Vitals Vital Signs Date Temp Pulse Resp B/P (MAP) Pulse Ox O2 O2 Flow FiO2 Time Delivery Rate 10/25/18 75 13 97/53 (68) 96 09:00 10/25/18 97.7 08:00 10/25/18 Room Air 06:00 Intake and Output 10/24/18 10/24/18 10/25/18 1414:59 22:59 06:59 OutputOutput Total 300 ml 2670 ml BalanceBalance -300 ml -2670 ml Exam Constitutional: alert, awake, no acute distress Respiratory: clear to auscultation Cardiovascular: regular rate and rhythm Gastrointestinal: soft, non-tender Musculoskeletal: nl extremities to inspection Extremities: normal pulses 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: nl mental status Additional Comments Left femoral hemodialysis catheter, left upper extremity AV fistula nonfunctional Results Result Diagram: 10/25/1851610/25/18516 Results 24hrs Laboratory Tests Test 10/24/18 16:23 10/24/18 16:26 10/24/18 23:36 10/25/18 02:06 Hepatitis B Surface NEGATIVE Antigen White Blood Count 11.7 #H Red Blood Count 2.66 L Hemoglobin 8.3 L Hematocrit 26.6 L Mean Corpuscular Volume 100.0 Mean Corpuscular 31.2 Hemoglobin Mean Corpuscular 31.2 L Hemoglobin Concent Red Cell Distribution 16.3 H Width Platelet Count 223 Mean Platelet Volume 10.4 Immature Granulocytes % 1.400 H Neutrophils % 84.0 H Lymphocytes % 6.8 L Monocytes % 6.5 Eosinophils % 1.0 Basophils % 0.3 Nucleated Red Blood 0.0 Cells % Immature Granulocytes # 0.160 H Neutrophils # 9.8 H Lymphocytes # 0.8 Monocytes # 0.8 Eosinophils # 0.1 Basophils # 0.0 Nucleated Red Blood 0.0 Cells # Prothrombin Time 14.6 Prothrombin Time Ratio 1.1 INR International 1.13 Normalized Ratio Activated 49.5 H Partial Thromboplast Time Sodium Level 140 Potassium Level 4.9 Chloride Level 100 Carbon Dioxide Level 29 Anion Gap 11 Blood Urea Nitrogen 32 H Creatinine 5.44 H Est Glomerular Filtrat 9 L Rate mL/min Glucose Level 92 Calcium Level 8.5 Total Bilirubin 0.2 Direct Bilirubin 0.00 Indirect Bilirubin 0.2 Aspartate Amino 18 Transf (AST/SGOT) Alanine 25 Aminotransferase (ALT/SG PT) Alkaline Phosphatase 81 Troponin I < 0.012 Total Protein 7.3 Albumin 3.7 Globulin 3.60 H Albumin/Globulin Ratio 1.02 POC Venous Lactate 1.9 Lactic Acid Level 1.3 Test 10/25/18 05:17 White Blood Count 16.4 #H Red Blood Count 2.37 L Hemoglobin 7.6 L Hematocrit 23.6 L Mean Corpuscular Volume 99.6 Mean Corpuscular 32.1 Hemoglobin Mean Corpuscular 32.2 Hemoglobin Concent Red Cell Distribution 16.5 H Width Platelet Count 225 Mean Platelet Volume 10.8 H Immature Granulocytes % 1.700 H Neutrophils % 84.8 H Lymphocytes % 4.4 L Monocytes % 8.3 Eosinophils % 0.4 Basophils % 0.4 Nucleated Red Blood 0.0 Cells % Immature Granulocytes # 0.280 H Neutrophils # 13.9 H Lymphocytes # 0.7 L Monocytes # 1.4 H Eosinophils # 0.1 Basophils # 0.1 Nucleated Red Blood 0.0 Cells # Sodium Level 140 Potassium Level 5.0 Chloride Level 99 Carbon Dioxide Level 27 Anion Gap 14 H Blood Urea Nitrogen 18 # Creatinine 3.45 #H Est Glomerular Filtrat 15 L Rate mL/min Glucose Level 99 Lactic Acid Level 1.2 Calcium Level 8.2 L Medications Medication Current Medications Ondansetron HCl (Zofran Inj) 4 mg ER BRIDGE PRN IV NAUSEA/VOMITING Last administered on 10/25/18 08:20; Admin Dose 4 MG; Start 10/24/18 at 17:30; Stop 10/25/18 at 17:29 Albumin Human 100 ml @ 100 mls/hr WITH DIALYSIS PRN IV SBP <90 DURING DIALYSIS Last administered on 10/24/18 21:00; Admin Dose 100 MLS/HR; Start 10/24/18 at 18: 00 Sodium Chloride (NS) -To prime the dialy... DIRECTED FOR HD PRN IV HD; Start 10/24/18 at 18:00 Heparin Sodium (Porcine) (Heparin (1000 Units/ml)) 5,200 unit AFTER DIALYSIS CATHETER Last administered on 10/25/18 00:49; Admin Dose 5,200 UNIT; Start 10/24/18 at 22:30 Sodium Chloride 250 ml @ 250 mls/hr Q1H PRN IV tachycardia Last administered on 10/25/18 02:24; Admin Dose 250 MLS/HR; Start 10/25/18 at 01:00 Hydromorphone HCl (Dilaudid) 1 mg Q4H PRN IV PAIN LEVEL 7-10 Last administered on 10/25/18 06:16; Admin Dose 1 MG; Start 10/25/18 at 01:00 Diphenhydramine HCl (Benadryl) 25 mg Q6H PRN IV ALLERGIC REACTION Last administered on 10/25/18 08:14; Admin Dose 25 MG; Start 10/25/18 at 01:00 Acetaminophen (Tylenol Tab) 650 mg Q4 PRN PO FEVER Last administered on 10/25/18 01:12; Admin Dose 650 MG; Start 10/25/18 at 01:00 Cefepime HCl 50 ml @ 100 mls/hr Q24H IVPB Last administered on 10/25/18 02:46; Admin Dose 100 MLS/HR; Start 10/25/18 at 02:30 Linezolid 300 ml @ 300 mls/hr Q12@0600,1800 IVPB Last administered on 10/25/18 06:02; Admin Dose 300 MLS/HR; Start 10/25/18 at 06:00 Norepinephrine 250 ml @ 1.875 mls/ hr TITRATE IV Last administered on 7/2/19at 04:10; Admin Dose 1.875 MLS/HR; Start 10/25/18 at 04:30 Sevelamer Carbonate (Renvela) 800 mg WITH MEALS PO Last administered on 10/25/18at 08:06; Admin Dose 800 MG; Start 10/25/18 at 07:35 HENRIQUE GRANADO MD Oct 25, 2018 10:43
--- NOTE | 2018-10-25 12:15 | HP ---
Date/Time of Note Date/Time of Note DATE: 10/25/18 TIME: 11:47 Assessment/Plan VTE Prophylaxis Risk score (from [facility] [place]0 risk: 3 SCD applied (from [facility] [place]): Yes Pharmacological prophylaxis: NA/contraindicated Pharm contraindication: anticoag not tolerated Lines/Catheters IV Catheter Type (from [facility]): Peripheral IV Urinary Cath still in place: No Assessment/Plan Assessment/Plan -Sepsis with gram-positive cocci in clusters bacteremia with fevers, leukocytosis, and hypotension. Continue antibiotics per ID. Dr Herrera is asked to see pt in ID consultation. Continue pressors and ICU care. -Hemodialysis dependent end-stage renal disease, continue dialysis per nephrol ogmisael. Dr. Beltran is following in nephrology consultation. -Leukemia, patient is undergoing chemotherapy last chemo was on Wednesday. -Anemia -Primary hyperparathyroidism, status post complete parathyroidectomy and partial left thyroid lobectomy 2 years ago. -Left femoral hemodialysis catheter present on admission. Further recommendations based on clinical course. Plan of care discussed with Dr. Turner. Result Diagram: 10/25/1851610/25/1817 Results 24hrs Laboratory Tests Test 10/24/18 16:23 10/24/18 16:26 10/24/18 23:36 10/25/18 02:06 Hepatitis B Surface NEGATIVE Antigen White Blood Count 11.7 #H Red Blood Count 2.66 L Hemoglobin 8.3 L Hematocrit 26.6 L Mean Corpuscular Volume 100.0 Mean Corpuscular 31.2 Hemoglobin Mean Corpuscular 31.2 L Hemoglobin Concent Red Cell Distribution 16.3 H Width Platelet Count 223 Mean Platelet Volume 10.4 Immature Granulocytes % 1.400 H Neutrophils % 84.0 H Lymphocytes % 6.8 L Monocytes % 6.5 Eosinophils % 1.0 Basophils % 0.3 Nucleated Red Blood 0.0 Cells % Immature Granulocytes # 0.160 H Neutrophils # 9.8 H Lymphocytes # 0.8 Monocytes # 0.8 Eosinophils # 0.1 Basophils # 0.0 Nucleated Red Blood 0.0 Cells # Prothrombin Time 14.6 Prothrombin Time Ratio 1.1 INR International 1.13 Normalized Ratio Activated 49.5 H Partial Thromboplast Time Sodium Level 140 Potassium Level 4.9 Chloride Level 100 Carbon Dioxide Level 29 Anion Gap 11 Blood Urea Nitrogen 32 H Creatinine 5.44 H Est Glomerular Filtrat 9 L Rate mL/min Glucose Level 92 Calcium Level 8.5 Total Bilirubin 0.2 Direct Bilirubin 0.00 Indirect Bilirubin 0.2 Aspartate Amino 18 Transf (AST/SGOT) Alanine 25 Aminotransferase (ALT/SG PT) Alkaline Phosphatase 81 Troponin I < 0.012 Total Protein 7.3 Albumin 3.7 Globulin 3.60 H Albumin/Globulin Ratio 1.02 POC Venous Lactate 1.9 Lactic Acid Level 1.3 Test 10/25/18 05:17 White Blood Count 16.4 #H Red Blood Count 2.37 L Hemoglobin 7.6 L Hematocrit 23.6 L Mean Corpuscular Volume 99.6 Mean Corpuscular 32.1 Hemoglobin Mean Corpuscular 32.2 Hemoglobin Concent Red Cell Distribution 16.5 H Width Platelet Count 225 Mean Platelet Volume 10.8 H Immature Granulocytes % 1.700 H Neutrophils % 84.8 H Lymphocytes % 4.4 L Monocytes % 8.3 Eosinophils % 0.4 Basophils % 0.4 Nucleated Red Blood 0.0 Cells % Immature Granulocytes # 0.280 H Neutrophils # 13.9 H Lymphocytes # 0.7 L Monocytes # 1.4 H Eosinophils # 0.1 Basophils # 0.1 Nucleated Red Blood 0.0 Cells # Sodium Level 140 Potassium Level 5.0 Chloride Level 99 Carbon Dioxide Level 27 Anion Gap 14 H Blood Urea Nitrogen 18 # Creatinine 3.45 #H Est Glomerular Filtrat 15 L Rate mL/min Glucose Level 99 Lactic Acid Level 1.2 Calcium Level 8.2 L HPI/ROS Admit Date/Time Admit Date/Time Oct 25, 2018 at 04:13 Hx of Present Illness The patient is a 33-year-old female with end-stage renal disease on hemodialysis 3 times a week via left femoral hemodialysis catheter, leukemia for which patient currently undergoing chemotherapy last chemo was on Wednesday, history of primary hyperparathyroidism status post complete parathyroidectomy and partial left thyroid lobectomy 2 years ago. Patient with history of bacteremia secondary to MSSA for which patient been treated last admission in June of this year. Patient has a left upper extremity AV fistula which is nonfunctional and had a history of multiple hemodialysis catheter placement and subsequent removal. Patient is currently has a left femoral hemodialysis catheter that was placed 2 months ago at [facility] according to the patient. Patient was sent to the emergency room from hemodialysis center for evaluation of tactile fever and chills. On evaluation in the emergency room patient was noted to have fever 103.0, white blood cells elevated to 13,000, patient also had nonbloody nonbilious emesis. Patient denies shortness of breath, denies any chest pain, denies any abdominal pain, denies diarrhea cons tipation. Patient was started on broad-spectrum antibiotics and Levophed for hypotension. Patient is admitted for further evaluation and management to intensive care unit. ROS 12 point review of system is negative except for what mentioned in HPI PMH/Family/Social Past Medical History Medical History: renal disease, other (Leukemia) Medications Current Medications Ondansetron HCl (Zofran Inj) 4 mg ER BRIDGE PRN IV NAUSEA/VOMITING Last administered on 10/25/18 08:20; Admin Dose 4 MG; Start 10/24/18 at 17:30; Stop 10/25/18 at 17:29 Albumin Human 100 ml @ 100 mls/hr WITH DIALYSIS PRN IV SBP <90 DURING DIALYSIS Last administered on 10/24/18at 21:00; Admin Dose 100 MLS/HR; Start 10/24/18 at 18:00 Sodium Chloride (NS) -To prime the dialy... DIRECTED FOR HD PRN IV HD; Start 10/24/18 at 18:00 Heparin Sodium (Porcine) (Heparin (1000 Units/ml)) 5,200 unit AFTER DIALYSIS CATHETER Last administered on 10/25/18at 00:49; Admin Dose 5,200 UNIT; Start 10/24/18 at 22:30 Sodium Chloride 250 ml @ 250 mls/hr Q1H PRN IV tachycardia Last administered on 10/25/18 02:24; Admin Dose 250 MLS/HR; Start 10/25/18 at 01:00 Hydromorphone HCl (Dilaudid) 1 mg Q4H PRN IV PAIN LEVEL 7-10 Last administered on 10/25/18 11:00; Admin Dose 1 MG; Start 10/25/18 at 01:00 Diphenhydramine HCl (Benadryl) 25 mg Q6H PRN IV ALLERGIC REACTION Last administered on 10/25/18 08:14; Admin Dose 25 MG; Start 10/25/18 at 01:00 Acetaminophen (Tylenol Tab) 650 mg Q4 PRN PO FEVER Last administered on 10/25/18 01:12; Admin Dose 650 MG; Start 10/25/18 at 01:00 Cefepime HCl 50 ml @ 100 mls/hr Q24H IVPB Last administered on 10/25/18at 02:46; Admin Dose 100 MLS/HR; Start 10/25/18 at 02:30 Linezolid 300 ml @ 300 mls/hr Q12@0600,1800 IVPB Last administered on 10/25/18at 06:02; Admin Dose 300 MLS/HR; Start 10/25/18 at 06:00 Norepinephrine 250 ml @ 1.875 mls/ hr TITRATE IV Last administered on 10/25/18at 04:10; Admin Dose 1.875 MLS/HR; Start 10/25/18 at 04:30 Sevelamer Carbonate (Renvela) 800 mg WITH MEALS PO Last administered on 10/25/18at 08:06; Admin Dose 800 MG; Start 10/25/18 at 07:35 Coded Allergies: vancomycin (Unverified Allergy, Severe, 10/24/18) pruritus pineapple (Unverified Allergy, Mild, 10/24/18) watermelon (Unverified Allergy, Unknown, 10/24/18) Past Surgical History Past Surgical Hx: other (Status post left upper extremity AV fistula creation in 2016, status post subtotal parathyroidectomy and right superior and inferior glands and partial left inferior gland in June 2016, status post complete parathyroidectomy and partial left thyroid lobectomy in October 2016, status post multiple hemodialysis placement and subsequent removal) Family History Significant Family History: other (Negative for history of kidney disease) Social History Alcohol Use: none Smoking Status: Former smoker Drug Use: none Exam/Review of Systems Vital Signs Vitals Vital Signs Date Temp Pulse Resp B/P (MAP) Pulse Ox O2 O2 Flow FiO2 Time Delivery Rate 10/25/18 75 13 97/53 (68) 96 09:00 10/25/18 97.7 08:00 10/25/18 Room Air 06:00 Intake and Output 10/24/18 10/24/18 10/25/18 1515:00 23:00 07:00 OutputOutput Total 300 ml 2670 ml BalanceBalance -300 ml -2670 ml Exam Constitutional: alert Head: normocephalic Neck: supple Respiratory: clear to auscultation Cardiovascular: regular rate and rhythm Gastrointestinal: soft, non-tender Musculoskeletal: nl extremities to inspection Extremities: normal pulses 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: nl mental status Skin: nl turgor Additional Comments Left femoral hemodialysis catheter, left upper extremity AV fistula nonfunctional ERICK ROBERTSON Oct 25, 2018 11:59
--- NOTE | 2018-10-25 13:14 | CONS ---
Assessment/Plan Assessment/Plan Hospital Course (Demo Recall) asked to consult. will be in shortly. ty Consultation Date/Type/Reason Admit Date/Time Oct 25, 2018 at 04:13 Date/Time of Note DATE: 10/25/18 TIME: 13:14 Past Medical History Medical History: renal disease, other (Leukemia) Home Meds Reported Medications Sevelamer Hcl* (Renagel*) 800 Mg Tablet, 800 MG PO WITH MEALS, TAB 05/14/18 Discontinued Reported Medications Zolpidem Tartrate* (Zolpidem Tartrate*) 10 Mg Tablet, 10 MG PO QHS PRN for INSOMNIA, #30 TAB 07/06/17 Discontinued Scripts Hydrocodone/Acetaminophen ([place] 5-325 Tablet) 1 Each Tablet, 1 TAB PO Q8 PRN for PAIN, #9 TAB Prov:ROHAN MCCAULEY MD 10/20/18 Pantoprazole* (Pantoprazole*) 40 Mg Tablet.dr, 40 MG PO DAILY@06 for 30 Days Prov:EDILMA CASIANO 06/25/18 Bromocriptine Mesylate* (Parlodel*) 2.5 Mg Tablet, 2.5 MG PO QHS for 30 Days, TAB Prov:EDILMA CASIANO 06/25/18 Midodrine* (Midodrine*) 5 Mg Tablet, 5 MG PO TID@09,13,17 for 30 Days, TAB Prov:EDILMA CASIANO 06/25/18 Naproxen* (Naprosyn*) 500 Mg Tablet, 500 MG PO BID PRN for PAIN AND/OR INFLAMMATION, #30 TAB Prov:LIANA DAWSON MD 05/14/18 Medications Current Medications Ondansetron HCl (Zofran Inj) 4 mg ER BRIDGE PRN IV NAUSEA/VOMITING Last administered on 10/25/18at 08:20; Admin Dose 4 MG; Start 10/24/18 at 17:30; Stop 10/25/18 at 17:29 Albumin Human 100 ml @ 100 mls/hr WITH DIALYSIS PRN IV SBP <90 DURING DIALYSIS Last administered on 10/24/18at 21:00; Admin Dose 100 MLS/HR; Start 10/24/18 at 18:00 Sodium Chloride (NS) -To prime the dialy... DIRECTED FOR HD PRN IV HD; Start 10/24/18 at 18:00 Heparin Sodium (Porcine) (Heparin (1000 Units/ml)) 5,200 unit AFTER DIALYSIS CATHETER Last administered on 10/25/18 00:49; Admin Dose 5,200 UNIT; Start 10/24/18 at 22:30 Sodium Chloride 250 ml @ 250 mls/hr Q1H PRN IV tachycardia Last administered on 10/25/18 02:24; Admin Dose 250 MLS/HR; Start 10/25/18 at 01:00 Hydromorphone HCl (Dilaudid) 1 mg Q4H PRN IV PAIN LEVEL 7-10 Last administered on 10/25/18 11:00; Admin Dose 1 MG; Start 10/25/18 at 01:00 Diphenhydramine HCl (Benadryl) 25 mg Q6H PRN IV ALLERGIC REACTION Last administered on 10/25/18 08:14; Admin Dose 25 MG; Start 10/25/18 at 01:00 Acetaminophen (Tylenol Tab) 650 mg Q4 PRN PO FEVER Last administered on 10/25/18 01:12; Admin Dose 650 MG; Start 10/25/18 at 01:00 Cefepime HCl 50 ml @ 100 mls/hr Q24H IVPB Last administered on 10/25/18 02:46; Admin Dose 100 MLS/HR; Start 10/25/18 at 02:30 Linezolid 300 ml @ 300 mls/hr Q12@0600,1800 IVPB Last administered on 10/25/18 06:02; Admin Dose 300 MLS/HR; Start 10/25/18 at 06:00 Norepinephrine 250 ml @ 1.875 mls/ hr TITRATE IV Last administered on 10/25/18 04:10; Admin Dose 1.875 MLS/HR; Start 10/25/18 at 04:30 Sevelamer Carbonate (Renvela) 800 mg WITH MEALS PO Last administered on 10/25/18 12:23; Admin Dose 800 MG; Start 10/25/18 at 07:35 Allergies: Coded Allergies: vancomycin (Unverified Allergy, Severe, 10/24/18) pruritus pineapple (Unverified Allergy, Mild, 10/24/18) watermelon (Unverified Allergy, Unknown, 10/24/18) Past Surgical History Past Surgical Hx: other (Status post left upper extremity AV fistula creation in 2017, status post subtotal parathyroidectomy and right superior and inferior glands and partial left inferior gland in June 2016, status post complete parathyroidectomy and partial left thyroid lobectomy in October 2016, status post multiple hemodialysis placement and subsequent removal) Social History Alcohol Use: none Smoking Status: Former smoker Drug Use: none Exam/Review of Systems Exam Vitals Vital Signs Date Temp Pulse Resp B/P (MAP) Pulse Ox O2 O2 Flow FiO2 Time Delivery Rate 10/25/18 82 12:00 10/25/18 13 97/53 (68) 96 09:00 10/25/18 97.7 08:00 10/25/18 Room Air 06:00 Intake and Output 10/24/18 10/24/18 10/25/18 1515:00 23:00 07:00 OutputOutput Total 300 ml 2670 ml BalanceBalance -300 ml -2670 ml Results Result Diagram: 10/25/18 0517 10/25/18 0517 Results 24hrs Laboratory Tests Test 10/24/18 16:23 10/24/18 16:26 10/24/18 23:36 10/25/18 02:06 Hepatitis B Surface NEGATIVE Antigen White Blood Count 11.7 #H Red Blood Count 2.66 L Hemoglobin 8.3 L Hematocrit 26.6 L Mean Corpuscular Volume 100.0 Mean Corpuscular 31.2 Hemoglobin Mean Corpuscular 31.2 L Hemoglobin Concent Red Cell Distribution 16.3 H Width Platelet Count 223 Mean Platelet Volume 10.4 Immature Granulocytes % 1.400 H Neutrophils % 84.0 H Lymphocytes % 6.8 L Monocytes % 6.5 Eosinophils % 1.0 Basophils % 0.3 Nucleated Red Blood 0.0 Cells % Immature Granulocytes # 0.160 H Neutrophils # 9.8 H Lymphocytes # 0.8 Monocytes # 0.8 Eosinophils # 0.1 Basophils # 0.0 Nucleated Red Blood 0.0 Cells # Prothrombin Time 14.6 Prothrombin Time Ratio 1.1 INR International 1.13 Normalized Ratio Activated 49.5 H Partial Thromboplast Time Sodium Level 140 Potassium Level 4.9 Chloride Level 100 Carbon Dioxide Level 29 Anion Gap 11 Blood Urea Nitrogen 32 H Creatinine 5.44 H Est Glomerular Filtrat 9 L Rate mL/min Glucose Level 92 Calcium Level 8.5 Total Bilirubin 0.2 Direct Bilirubin 0.00 Indirect Bilirubin 0.2 Aspartate Amino 18 Transf (AST/SGOT) Alanine 25 Aminotransferase (ALT/SG PT) Alkaline Phosphatase 81 Troponin I < 0.012 Total Protein 7.3 Albumin 3.7 Globulin 3.60 H Albumin/Globulin Ratio 1.02 POC Venous Lactate 1.9 Lactic Acid Level 1.3 Test 10/25/18 05:17 White Blood Count 16.4 #H Red Blood Count 2.37 L Hemoglobin 7.6 L Hematocrit 23.6 L Mean Corpuscular Volume 99.6 Mean Corpuscular 32.1 Hemoglobin Mean Corpuscular 32.2 Hemoglobin Concent Red Cell Distribution 16.5 H Width Platelet Count 225 Mean Platelet Volume 10.8 H Immature Granulocytes % 1.700 H Neutrophils % 84.8 H Lymphocytes % 4.4 L Monocytes % 8.3 Eosinophils % 0.4 Basophils % 0.4 Nucleated Red Blood 0.0 Cells % Immature Granulocytes # 0.280 H Neutrophils # 13.9 H Lymphocytes # 0.7 L Monocytes # 1.4 H Eosinophils # 0.1 Basophils # 0.1 Nucleated Red Blood 0.0 Cells # Sodium Level 140 Potassium Level 5.0 Chloride Level 99 Carbon Dioxide Level 27 Anion Gap 14 H Blood Urea Nitrogen 18 # Creatinine 3.45 #H Est Glomerular Filtrat 15 L Rate mL/min Glucose Level 99 Lactic Acid Level 1.2 Calcium Level 8.2 L Medications Medication Current Medications Ondansetron HCl (Zofran Inj) 4 mg ER BRIDGE PRN IV NAUSEA/VOMITING Last administered on 10/25/18at 08:20; Admin Dose 4 MG; Start 10/24/18 at 17:30; Stop 10/25/18 at 17:29 Albumin Human 100 ml @ 100 mls/hr WITH DIALYSIS PRN IV SBP <90 DURING DIALYSIS Last administered on 10/24/18at 21:00; Admin Dose 100 MLS/HR; Start 10/24/18 at 18:00 Sodium Chloride (NS) -To prime the dialy... DIRECTED FOR HD PRN IV HD; Start 10/24/18 at 18:00 Heparin Sodium (Porcine) (Heparin (1000 Units/ml)) 5,200 unit AFTER DIALYSIS CATHETER Last administered on 10/25/18at 00:49; Admin Dose 5,200 UNIT; Start 10/24/18 at 22:30 Sodium Chloride 250 ml @ 250 mls/hr Q1H PRN IV tachycardia Last administered on 10/25/18 02:24; Admin Dose 250 MLS/HR; Start 10/25/18 at 01:00 Hydromorphone HCl (Dilaudid) 1 mg Q4H PRN IV PAIN LEVEL 7-10 Last administered on 10/25/18 11:00; Admin Dose 1 MG; Start 10/25/18 at 01:00 Diphenhydramine HCl (Benadryl) 25 mg Q6H PRN IV ALLERGIC REACTION Last administered on 10/25/18 08:14; Admin Dose 25 MG; Start 10/25/18 at 01:00 Acetaminophen (Tylenol Tab) 650 mg Q4 PRN PO FEVER Last administered on 10/25/18 01:12; Admin Dose 650 MG; Start 10/25/18 at 01:00 Cefepime HCl 50 ml @ 100 mls/hr Q24H IVPB Last administered on 10/25/18 02:46; Admin Dose 100 MLS/HR; Start 10/25/18 at 02:30 Linezolid 300 ml @ 300 mls/hr Q12@0600,1800 IVPB Last administered on 10/25/18 06:02; Admin Dose 300 MLS/HR; Start 10/25/18 at 06:00 Norepinephrine 250 ml @ 1.875 mls/ hr TITRATE IV Last administered on 10/25/18 04:10; Admin Dose 1.875 MLS/HR; Start 10/25/18 at 04:30 Sevelamer Carbonate (Renvela) 800 mg WITH MEALS PO Last administered on 10/25/18 12:23; Admin Dose 800 MG; Start 10/25/18 at 07:35 MUMTAZ LOPEZ MD Oct 25, 2018 13:14
--- NOTE | 2018-10-25 13:22 | CONS ---
Assessment/Plan Assessment/Plan Hospital Course (Demo Recall) # sepsis, heme/onc - sepsis due to bacteremia, recurrent - bacteremia due to MSSA, likely recurrent - h/o transthoracic echo on 07/19/2018, no e/o endocarditis - s/p removal of permacath on R chest wall on 07/14/2018 - s/p R femoral HD justin catheter placement 07/14/2018, replaced by HD permaca th 07/19/2018 - pain/increased sensitivity of R groin after replacement of the justin with permacath. 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 Last used for HD in 04/2018. 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 The culture of the tip of the removed catheter, blood cultures and swab of the catheter site were negative. Pt completed an empiric course of renally dosed pip/tazo (06/13/2018-06/18/2018) - h/o placement of a permacath on R chest wall on 06/23/2018 - h/o [place] [facility] [place] - h/o 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 Pt took renally dosed valACV (07/15/2018-07/17/2018) - adverse reaction to vancomycin (pruritus) - adverse reaction to linezolid (thrombocytopenia). Linezolid was discontinued (06/12/2018-06/17/2018) recommendations: - cont. vanco/cefepime for now, if S.aureus consider line holiday - consider echocardiogram - In light of recurrent bacteremias and previous hx of thrombosed L brachiocephalic AV fistula will consider a more prolonged course of IV abx - repeat bcxs in am - hygiene emphasized - consider vascular re-evaluation for possible fistula sites or alternative hd cath site Consultation Date/Type/Reason Admit Date/Time Oct 25, 2018 at 04:13 [facility] Date of Consultation: Oct 25, 2018 Type of Consult ID Reason for Consultation [id number] RECS Requesting Provider: ERICK ROBERTSON Date/Time of Note DATE: 10/25/18 TIME: 13:18 Hx of Present Illness 33-year-old female with ESRD ON HD, left femoral hemodialysis catheter, leukemia for which patient currently undergoing chemotherapy, history of primary hyperparathyroidism status post complete parathyroidectomy and partial left thyroid lobectomy 2 years ago. MSSA Bacteremia, multiple catheter replacements, non-functional av fistula, admitted for recurrent gram pos sepsis. Constitutional: other (BONE PAIN ALL OVER) Eyes: no complaints ENT: no complaints Respiratory: no complaints Cardiovascular: no complaints Gastrointestinal: no complaints Genitourinary: no complaints Musculoskeletal: no complaints Skin: no complaints Neurologic: no complaints Past Medical History Medical History: renal disease, other (Leukemia) Home Meds Reported Medications Sevelamer Hcl* (Renagel*) 800 Mg Tablet, 800 MG PO WITH MEALS, TAB 05/14/18 Discontinued Reported Medications Zolpidem Tartrate* (Zolpidem Tartrate*) 10 Mg Tablet, 10 MG PO QHS PRN for INSOMNIA, #30 TAB 07/06/17 Discontinued Scripts Hydrocodone/Acetaminophen ([place] 5-325 Tablet) 1 Each Tablet, 1 TAB PO Q8 PRN for PAIN, #9 TAB Prov:ROHAN MCCAULEY MD 10/20/18 Pantoprazole* (Pantoprazole*) 40 Mg Tablet., 40 MG PO DAILY@06 for 30 Days Prov:EDILMA CASIANO 06/25/18 Bromocriptine Mesylate* (Parlodel*) 2.5 Mg Tablet, 2.5 MG PO QHS for 30 Days, TAB Prov:EDILMA CASIANO 06/25/18 Midodrine* (Midodrine*) 5 Mg Tablet, 5 MG PO TID@09,13,17 for 30 Days, TAB Prov:EDILMA CASIANO 06/25/18 Naproxen* (Naprosyn*) 500 Mg Tablet, 500 MG PO BID PRN for PAIN AND/OR INFLAMMATION, #30 TAB Prov:LIANA DAWSON MD 05/14/18 Medications Current Medications Ondansetron HCl (Zofran Inj) 4 mg ER BRIDGE PRN IV NAUSEA/VOMITING Last administered on 10/25/18 08:20; Admin Dose 4 MG; Start 10/24/18 at 17:30; Stop 10/25/18 at 17:29 Albumin Human 100 ml @ 100 mls/hr WITH DIALYSIS PRN IV SBP <90 DURING DIALYSIS Last administered on 10/24/18at 21:00; Admin Dose 100 MLS/HR; Start 10/24/18 at 18:00 Sodium Chloride (NS) -To prime the dialy... DIRECTED FOR HD PRN IV HD; Start 10/24/18 at 18:00 Heparin Sodium (Porcine) (Heparin (1000 Units/ml)) 5,200 unit AFTER DIALYSIS CATHETER Last administered on 10/25/18at 00:49; Admin Dose 5,200 UNIT; Start 10/24/18 at 22:30 Sodium Chloride 250 ml @ 250 mls/hr Q1H PRN IV tachycardia Last administered on 10/25/18at 02:24; Admin Dose 250 MLS/HR; Start 10/25/18 at 01:00 Hydromorphone HCl (Dilaudid) 1 mg Q4H PRN IV PAIN LEVEL 7-10 Last administered on 10/25/18 11:00; Admin Dose 1 MG; Start 10/25/18 at 01:00 Diphenhydramine HCl (Benadryl) 25 mg Q6H PRN IV ALLERGIC REACTION Last administered on 10/25/18 08:14; Admin Dose 25 MG; Start 10/25/18 at 01:00 Acetaminophen (Tylenol Tab) 650 mg Q4 PRN PO FEVER Last administered on 10/25/18 01:12; Admin Dose 650 MG; Start 10/25/18 at 01:00 Cefepime HCl 50 ml @ 100 mls/hr Q24H IVPB Last administered on 10/25/18at 02:46; Admin Dose 100 MLS/HR; Start 10/25/18 at 02:30 Linezolid 300 ml @ 300 mls/hr Q12@0600,1800 IVPB Last administered on 10/25/18at 06:02; Admin Dose 300 MLS/HR; Start 10/25/18 at 06:00 Norepinephrine 250 ml @ 1.875 mls/ hr TITRATE IV Last administered on 10/25/18at 04:10; Admin Dose 1.875 MLS/HR; Start 10/25/18 at 04:30 Sevelamer Carbonate (Renvela) 800 mg WITH MEALS PO Last administered on 10/25at 12:23; Admin Dose 800 MG; Start 10/25/18 at 07:35 Allergies: Coded Allergies: vancomycin (Unverified Allergy, Severe, 10/24/18) pruritus pineapple (Unverified Allergy, Mild, 10/24/18) watermelon (Unverified Allergy, Unknown, 10/24/18) Past Surgical History Past Surgical Hx: other (Status post left upper extremity AV fistula creation in 2016, status post subtotal parathyroidectomy and right superior and inferior glands and partial left inferior gland in June 2016, status post complete parathyroidectomy and partial left thyroid lobectomy in October 2016, status post multiple hemodialysis placement and subsequent removal) Social History Alcohol Use: none Smoking Status: Former smoker Drug Use: none Exam/Review of Systems Exam Vitals Vital Signs Date Temp Pulse Resp B/P (MAP) Pulse Ox O2 O2 Flow FiO2 Time Delivery Rate 10/25/18 82 12:00 10/25/18 13 97/53 (68) 96 09:00 10/25/18 97.7 08:00 10/25/18 Room Air 06:00 Intake and Output 10/24/18 10/24/18 10/25/18 1515:00 23:00 07:00 OutputOutput Total 300 ml 2670 ml BalanceBalance -300 ml -2670 ml Constitutional: alert, oriented, well developed Psych: no complaints, nl mood/affect Head: normocephalic, atraumatic Eyes: nl conjunctiva, EOMI, nl lids, nl sclera, PERRL ENMT: nl external ears & nose, nl lips & teeth, nl nasal mucosa & septum Neck: supple, non-tender Respiratory: clear to auscultation, normal air movement Cardiovascular: regular rate and rhythm, nl pulses Gastrointestinal: soft, nl liver, spleen, non-tender 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: [employer] II-XII intact, nl mental status, nl speech, nl strength Skin: other (LEFT HD CATH) Results Result Diagram: 10/25/1817 10/25/18 0517 Results 24hrs Laboratory Tests Test 10/24/18 16:23 10/24/18 16:26 10/24/18 23:36 10/25/18 02:06 Hepatitis B Surface NEGATIVE Antigen White Blood Count 11.7 #H Red Blood Count 2.66 L Hemoglobin 8.3 L Hematocrit 26.6 L Mean Corpuscular Volume 100.0 Mean Corpuscular 31.2 Hemoglobin Mean Corpuscular 31.2 L Hemoglobin Concent Red Cell Distribution 16.3 H Width Platelet Count 223 Mean Platelet Volume 10.4 Immature Granulocytes % 1.400 H Neutrophils % 84.0 H Lymphocytes % 6.8 L Monocytes % 6.5 Eosinophils % 1.0 Basophils % 0.3 Nucleated Red Blood 0.0 Cells % Immature Granulocytes # 0.160 H Neutrophils # 9.8 H Lymphocytes # 0.8 Monocytes # 0.8 Eosinophils # 0.1 Basophils # 0.0 Nucleated Red Blood 0.0 Cells # Prothrombin Time 14.6 Prothrombin Time Ratio 1.1 INR International 1.13 Normalized Ratio Activated 49.5 H Partial Thromboplast Time Sodium Level 140 Potassium Level 4.9 Chloride Level 100 Carbon Dioxide Level 29 Anion Gap 11 Blood Urea Nitrogen 32 H Creatinine 5.44 H Est Glomerular Filtrat 9 L Rate mL/min Glucose Level 92 Calcium Level 8.5 Total Bilirubin 0.2 Direct Bilirubin 0.00 Indirect Bilirubin 0.2 Aspartate Amino 18 Transf (AST/SGOT) Alanine 25 Aminotransferase (ALT/SG PT) Alkaline Phosphatase 81 Troponin I < 0.012 Total Protein 7.3 Albumin 3.7 Globulin 3.60 H Albumin/Globulin Ratio 1.02 POC Venous Lactate 1.9 Lactic Acid Level 1.3 Test 10/25/18 05:17 White Blood Count 16.4 #H Red Blood Count 2.37 L Hemoglobin 7.6 L Hematocrit 23.6 L Mean Corpuscular Volume 99.6 Mean Corpuscular 32.1 Hemoglobin Mean Corpuscular 32.2 Hemoglobin Concent Red Cell Distribution 16.5 H Width Platelet Count 225 Mean Platelet Volume 10.8 H Immature Granulocytes % 1.700 H Neutrophils % 84.8 H Lymphocytes % 4.4 L Monocytes % 8.3 Eosinophils % 0.4 Basophils % 0.4 Nucleated Red Blood 0.0 Cells % Immature Granulocytes # 0.280 H Neutrophils # 13.9 H Lymphocytes # 0.7 L Monocytes # 1.4 H Eosinophils # 0.1 Basophils # 0.1 Nucleated Red Blood 0.0 Cells # Sodium Level 140 Potassium Level 5.0 Chloride Level 99 Carbon Dioxide Level 27 Anion Gap 14 H Blood Urea Nitrogen 18 # Creatinine 3.45 #H Est Glomerular Filtrat 15 L Rate mL/min Glucose Level 99 Lactic Acid Level 1.2 Calcium Level 8.2 L Medications Medication Current Medications Ondansetron HCl (Zofran Inj) 4 mg ER BRIDGE PRN IV NAUSEA/VOMITING Last administered on 10/25/18at 08:20; Admin Dose 4 MG; Start 10/24/18 at 17:30; Stop 10/25/18 at 17:29 Albumin Human 100 ml @ 100 mls/hr WITH DIALYSIS PRN IV SBP <90 DURING DIALYSIS Last administered on 10/24/18at 21:00; Admin Dose 100 MLS/HR; Start 10/24/18 at 18:00 Sodium Chloride (NS) -To prime the dialy... DIRECTED FOR HD PRN IV HD; Start 10/24/18 at 18:00 Heparin Sodium (Porcine) (Heparin (1000 Units/ml)) 5,200 unit AFTER DIALYSIS CATHETER Last administered on 10/25/18at 00:49; Admin Dose 5,200 UNIT; Start 10/24/18 at 22:30 Sodium Chloride 250 ml @ 250 mls/hr Q1H PRN IV tachycardia Last administered on 10/25/18at 02:24; Admin Dose 250 MLS/HR; Start 10/25/18 at 01:00 Hydromorphone HCl (Dilaudid) 1 mg Q4H PRN IV PAIN LEVEL 7-10 Last administered on 10/25/18at 11:00; Admin Dose 1 MG; Start 10/25/18 at 01:00 Diphenhydramine HCl (Benadryl) 25 mg Q6H PRN IV ALLERGIC REACTION Last administered on 10/25/18 08:14; Admin Dose 25 MG; Start 10/25/18 at 01:00 Acetaminophen (Tylenol Tab) 650 mg Q4 PRN PO FEVER Last administered on 10/25/18 01:12; Admin Dose 650 MG; Start 10/25/18 at 01:00 Cefepime HCl 50 ml @ 100 mls/hr Q24H IVPB Last administered on 10/25/18 02:46; Admin Dose 100 MLS/HR; Start 10/25/18 at 02:30 Linezolid 300 ml @ 300 mls/hr Q12@0600,1800 IVPB Last administered on 10/25/18 06:02; Admin Dose 300 MLS/HR; Start 10/25/18 at 06:00 Norepinephrine 250 ml @ 1.875 mls/ hr TITRATE IV Last administered on 10/25/18 04:10; Admin Dose 1.875 MLS/HR; Start 10/25/18 at 04:30 Sevelamer Carbonate (Renvela) 800 mg WITH MEALS PO Last administered on 10/25/18 12:23; Admin Dose 800 MG; Start 10/25/18 at 07:35 MUMTAZ LOPEZ MD Oct 25, 2018 13:22
[2018-10-26] VITALS (38 sets, daily range): BP systolic 85–135; BP diastolic 52–94; PULSE 68–129; RESP 11–24
[2018-10-26] MEDS: CEFEPIME 1GM/50 ML (PMX) 50 ML IVPB SCH (02:29)
[2018-10-26] MEDS: HYDROmorphONE 0.5 MG/0.5 ML SYG IV PRN ×3 (05:15→13:30)
[2018-10-26] MEDS: DIPHENHYDRAMINE 50 MG INJ IV PRN ×3 (05:15→23:13)
[2018-10-26] MEDS: LINEZOLID 600 MG/300 ML IVPB SCH ×2 (05:16→16:58)
[2018-10-26] MEDS: MIDODRINE 5 MG TAB PO SCH ×3 (08:40→16:58)
[2018-10-26] MEDS: SEVELAMER CARBONATE 800 MG TABLET PO SCH ×3 (08:41→16:58)
--- NOTE | 2018-10-26 11:21 | CONS ---
[facility] HCIS Consult Follow-up Patient Name: Maria Luisa Lakhani Unit Number: [id number] Date of : 1985 Patient Status: Admitted Inpatient Attending Doctor: Pawan Walter MD Edit: GINGER LEONE M.D. on 10/28/18 @ 08:03 Sulema: I discussed the management with SALES OUTFITTER Lamar and agree Assessment/Plan Assessment/Plan Hospital Course (Demo Recall) # sepsis, heme/onc - sepsis due to bacteremia, recurrent - bacteremia due to MSSA, likely recurrent - h/o transthoracic echo on 07/19/2018, no e/o endocarditis - s/p removal of permacath on R chest wall on 07/14/2018 - s/p R femoral HD justin catheter placement 07/14/2018, replaced by HD permacath 07/19/2018 - pain/increased sensitivity of R groin after replacement of the justin with permacath. 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 Last used for HD in 04/2018. Was scheduled to get a new graft [place] [facility] [place] - h/o swelling on the scalp and chest wall, possibly due to collateral veins as a result of thrombosis of AVF - hypotension after HD - h/o recurrent infection of HD catheter site/HD catheter - h/o removal and placement of a new Perez catheter in 05/2018. The culture of the tip of the removed catheter, blood cultures and swab of the catheter site were negative. Pt completed an empiric course of renally dosed pip/tazo (06/13/2018-06/18/2018) - h/o placement of a permacath on R chest wall on 06/23/2018 - h/o creation of AVF in E in 2016 - h/o 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 Pt took renally dosed valACV (07/15/2018-07/17/2018) - adverse reaction to vancomycin (pruritus) - adverse reaction to linezolid (thrombocytopenia). Linezolid was discontinued (06/12/2018-06/17/2018) Recommendations: - Cont. vanco/cefepime for now - Consider line holiday - Consider echocardiogram to r/o endocarditis - In light of recurrent bacteremias and previous hx of thrombosed L brachiocephalic AV fistula will consider a more prolonged course of IV abx - Await final sensis of S. aureus from 10/24/18 and 10/25/18 - Ordered repeat blood cx - 1 periph, 1 HD cath (one this am was also done from midline) - hygiene emphasized - consider vascular re-evaluation for possible fistula sites or alternative hd cath site Plan was d/w BRIANA Ren, patient, and with Dr. Leone. Total critical care time spent 45 min. Consultation Date/Type/Reason Admit Date/Time Oct 25, 2018 at 04:13 Initial Consult Date 10/25/18 Type of Consult ID Requesting Provider: PAWAN WALTER MD Date/Time of Note DATE: 10/26/18 TIME: 11:18 24 HR Interval Summary Free Text/Dictation Pt was on levophed yesterday, d/cd at 2100. Remains afebrile. Still bacteremic. Currently undergoing HD and getting 2 u PRBC with HD. Pt reports for the past two days she has experienced "sharp pains" in the mornings in her left chest x1-2 times. She states they occur at rest and go away "quickly." She stated she had fevers yesterday (per documentations patient has remained afebrile). She denies sob, cough, n/v/d (but states had nausea two days ago with vomiting two days ago). Denies dysuria, pruritis, rash. Exam/Review of Systems Exam Vitals Vital Signs Date Temp Pulse Resp B/P (MAP) Pulse Ox O2 O2 Flow FiO2 Time Delivery Rate 10/26/18 75 11:00 10/26/18 18 111/76 99 Room Air 10:30 (88) 10/26/18 97.8 08:00 Intake and Output 10/25/18 10/25/18 10/26/18 1515:00 23:00 07:00 IntakeIntake Total 384.7 ml 998.90 ml 450 ml OutputOutput Total 300 ml BalanceBalance 84.7 ml 998.90 ml 450 ml Allergies Coded Allergies vancomycin (Unverified Allergy, Severe, 10/24/18) pruritus pineapple (Unverified Allergy, Mild, 10/24/18) watermelon (Unverified Allergy, Unknown, 10/24/18) Constitutional: alert, oriented, other (thin) Psych: nl mood/affect Head: normocephalic, atraumatic Eyes: nl conjunctiva, nl lids, nl sclera ENMT: nl external ears & nose, nl nasal mucosa & septum, mucosa pink and moist (no thrush) Neck: supple, non-tender Respiratory: clear to auscultation, normal air movement; No wheezing Cardiovascular: regular rate and rhythm, nl pulses, other (RUE Midline site is c/d/i) Gastrointestinal: soft, non-tender, bowel sounds (normoactive ) Genitourinary - Female: other (L groin HD catheter, site is c/d/i, currently connected to HD.) Musculoskeletal: nl extremities to inspection Extremities: normal pulses, other (LUE nonfunctional AVF) 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: nl mental status, nl speech, nl strength Skin: nl turgor Results Result Diagram: 10/26/18 0457 10/26/18 0457 Results 24hrs Laboratory Tests Test 10/26/18 04:57 White Blood Count 6.0 # Red Blood Count 2.15 L Hemoglobin 6.8 *L Hematocrit 21.7 L Mean Corpuscular Volume 100.9 Mean Corpuscular Hemoglobin 31.6 Mean Corpuscular Hemoglobin Concent 31.3 L Red Cell Distribution Width 16.1 H Platelet Count 181 Mean Platelet Volume 11.3 H Immature Granulocytes % 0.500 H Neutrophils % 66.3 Lymphocytes % 18.5 Monocytes % 9.9 Eosinophils % 4.5 Basophils % 0.3 Nucleated Red Blood Cells % 0.0 Immature Granulocytes # 0.030 Neutrophils # 4.0 Lymphocytes # 1.1 Monocytes # 0.6 Eosinophils # 0.3 Basophils # 0.0 Nucleated Red Blood Cells # 0.0 Sodium Level 138 Potassium Level 4.7 Chloride Level 98 Carbon Dioxide Level 26 Anion Gap 14 H Blood Urea Nitrogen 34 #H Creatinine 5.27 H Est Glomerular Filtrat Rate mL/min 9 L Glucose Level 105 Calcium Level 7.6 L Imaging Imaging CXR 10/24/18 IMPRESSION: 1. Left basilar subsegmental atelectasis. No focal consolidation, pleural effusion, or pneumothorax. 2. Additional findings as above. Medications Medication Current Medications Albumin Human 100 ml @ 100 mls/hr WITH DIALYSIS PRN IV SBP <90 DURING DIALYSIS Last administered on 10/24/18at 21:00; Admin Dose 100 MLS/HR; Start 10/24/18 at 18:00 Sodium Chloride (NS) -To prime the dialy... DIRECTED FOR HD PRN IV HD; Start 10/24/18 at 18:00 Heparin Sodium (Porcine) (Heparin (1000 Units/ml)) 5,200 unit AFTER DIALYSIS CATHETER Last administered on 10/25/18at 00:49; Admin Dose 5,200 UNIT; Start 10/24/18 at 22:30 Sodium Chloride 250 ml @ 250 mls/hr Q1H PRN IV tachycardia Last administered on 10/25/18at 02:24; Admin Dose 250 MLS/HR; Start 10/25/18 at 01:00 Hydromorphone HCl (Dilaudid) 1 mg Q4H PRN IV PAIN LEVEL 7-10 Last administered on 10/26/18at 09:25; Admin Dose 1 MG; Start 10/25/18 at 01:00 Diphenhydramine HCl (Benadryl) 25 mg Q6H PRN IV ALLERGIC REACTION Last a dministered on 10/26/18 05:15; Admin Dose 25 MG; Start 10/25/18 at 01:00 Acetaminophen (Tylenol Tab) 650 mg Q4 PRN PO FEVER Last administered on 10/25/18 14:31; Admin Dose 650 MG; Start 10/25/18 at 01:00 Cefepime HCl 50 ml @ 100 mls/hr Q24H IVPB Last administered on 10/26/18 02:29; Admin Dose 100 MLS/HR; Start 10/25/18 at 02:30 Linezolid 300 ml @ 300 mls/hr Q12@0600,1800 IVPB Last administered on 10/26/18 05:16; Admin Dose 300 MLS/HR; Start 10/25/18 at 06:00 Norepinephrine 250 ml @ 1.875 mls/ hr TITRATE IV Last administered on 10/25/18 04:10; Admin Dose 1.875 MLS/HR; Start 10/25/18 at 04:30 Sevelamer Carbonate (Renvela) 800 mg WITH MEALS PO Last administered on 10/26/18 08:41; Admin Dose 800 MG; Start 10/25/18 at 07:35 Midodrine (Proamatine) 5 mg TID@09,13,17 PO Last administered on 10/26/18 08:40; Admin Dose 5 MG; Start 10/26/18 at 09:00 NELY ACOSTA NP Oct 26, 2018 11:21
--- NOTE | 2018-10-26 11:25 | CONS ---
Assessment/Plan Assessment/Plan Assessment/Plan (Daily) 1. Septic shock on levophed 2. ESRD on HD MWF schedule , left femoral permacath for HD access 3. Bacteremia with Blood cx growing staph aureus 4. H/o Leukemia currently on chemotherapy, last chem on 10/21/18 5. H/o Primary hyperparathyroidism, status post complete parathyroidectomy and partial left thyroid lobectomy 2 years ago. 6. H/o Anemia of ESRD 7, Difficult vascular Access Plan: levophed for septic shock , BP stable today AM staph aureus bacteremia - IV abx vancomycin , cefepime and IV zyvox- to cover for septic shock ID consulted on the case s/p HD yesterday - 2.5 L removed, HD ordered for Wednesday , pt regular schedule for HD is MWF Continue other home m Consultation Date/Type/Reason Admit Date/Time Oct 25, 2018 at 04:13 Initial Consult Date Type of Consult NEPHROLOGY Requesting Provider: LUANNE WALTER MD Date/Time of Note DATE: 10/26/18 TIME: 11:25 Exam/Review of Systems Exam Vitals Vital Signs Date Temp Pulse Resp B/P (MAP) Pulse Ox O2 O2 Flow FiO2 Time Delivery Rate 10/26/18 75 11:00 10/26/18 18 111/76 99 Room Air 10:30 (88) 10/26/18 97.8 08:00 Intake and Output 10/25/18 10/25/18 10/26/18 1515:00 23:00 07:00 IntakeIntake Total 384.7 ml 998.90 ml 450 ml OutputOutput Total 300 ml BalanceBalance 84.7 ml 998.90 ml 450 ml Exam Constitutional: alert, awake, no acute distress Respiratory: clear to auscultation Cardiovascular: regular rate and rhythm Gastrointestinal: soft, non-tender Musculoskeletal: nl extremities to inspection Extremities: normal pulses 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: nl mental status Additional Comments Left femoral hemodialysis catheter, left upper extremity AV fistula nonfunctional Results Result Diagram: 10/26/18 0457 10/26/187 Results 24hrs Laboratory Tests Test 10/26/18 04:57 White Blood Count 6.0 # Red Blood Count 2.15 L Hemoglobin 6.8 *L Hematocrit 21.7 L Mean Corpuscular Volume 100.9 Mean Corpuscular Hemoglobin 31.6 Mean Corpuscular Hemoglobin Concent 31.3 L Red Cell Distribution Width 16.1 H Platelet Count 181 Mean Platelet Volume 11.3 H Immature Granulocytes % 0.500 H Neutrophils % 66.3 Lymphocytes % 18.5 Monocytes % 9.9 Eosinophils % 4.5 Basophils % 0.3 Nucleated Red Blood Cells % 0.0 Immature Granulocytes # 0.030 Neutrophils # 4.0 Lymphocytes # 1.1 Monocytes # 0.6 Eosinophils # 0.3 Basophils # 0.0 Nucleated Red Blood Cells # 0.0 Sodium Level 138 Potassium Level 4.7 Chloride Level 98 Carbon Dioxide Level 26 Anion Gap 14 H Blood Urea Nitrogen 34 #H Creatinine 5.27 H Est Glomerular Filtrat Rate mL/min 9 L Glucose Level 105 Calcium Level 7.6 L Medications Medication Current Medications Albumin Human 100 ml @ 100 mls/hr WITH DIALYSIS PRN IV SBP <90 DURING DIALYSIS Last administered on 10/24/18at 21:00; Admin Dose 100 MLS/HR; Start 10/24/18 at 18:00 Sodium Chloride (NS) -To prime the dialy... DIRECTED FOR HD PRN IV HD; Start 10/24/18 at 18:00 Heparin Sodium (Porcine) (Heparin (1000 Units/ml)) 5,200 unit AFTER DIALYSIS CATHETER Last administered on 10/25/18at 00:49; Admin Dose 5,200 UNIT; Start 10/24/18 at 22:30 Sodium Chloride 250 ml @ 250 mls/hr Q1H PRN IV tachycardia Last administered on 10/25/18 02:24; Admin Dose 250 MLS/HR; Start 10/25/18 at 01:00 Hydromorphone HCl (Dilaudid) 1 mg Q4H PRN IV PAIN LEVEL 7-10 Last administered on 10/26/18 09:25; Admin Dose 1 MG; Start 10/25/18 at 01:00 Diphenhydramine HCl (Benadryl) 25 mg Q6H PRN IV ALLERGIC REACTION Last administered on 10/26/18 11:21; Admin Dose 25 MG; Start 10/25/18 at 01:00 Acetaminophen (Tylenol Tab) 650 mg Q4 PRN PO FEVER Last administered on 10/25/18 14:31; Admin Dose 650 MG; Start 10/25/18 at 01:00 Cefepime HCl 50 ml @ 100 mls/hr Q24H IVPB Last administered on 10/26/18at 02:29; Admin Dose 100 MLS/HR; Start 10/25/18 at 02:30 Linezolid 300 ml @ 300 mls/hr Q12@0600,1800 IVPB Last administered on 10/26/18at 05:16; Admin Dose 300 MLS/HR; Start 10/25/18 at 06:00 Norepinephrine 250 ml @ 1.875 mls/ hr TITRATE IV Last administered on 10/25/18at 04:10; Admin Dose 1.875 MLS/HR; Start 10/25/18 at 04:30 Sevelamer Carbonate (Renvela) 800 mg WITH MEALS PO Last administered on 10/26/18 08:41; Admin Dose 800 MG; Start 10/25/18 at 07:35 Midodrine (Proamatine) 5 mg TID@09,13,17 PO Last administered on 10/26/18at 08:40; Admin Dose 5 MG; Start 10/26/18 at 09:00 HENRIQUE GRANADO MD Oct 26, 2018 11:25
[2018-10-26] MEDS ORDERED: ALTEPLASE (CATHFLO) 2 MG INJ CATHETER ONE (12:30)
[2018-10-26] MEDS ORDERED: DIPHENHYDRAMINE 50 MG INJ IV PRN (12:30)
[2018-10-26] MEDS ORDERED: LIDOCAINE 1% (MDV) 20 ML INJ INJ PRN (12:30)
[2018-10-26] MEDS: ACETAMINOPHEN 325 MG TAB PO PRN (14:54)
--- NOTE | 2018-10-26 15:33 | PN ---
Date/Time of Note Date/Time of Note DATE: 10/26/18 TIME: 15:27 Assessment/Plan VTE Prophylaxis Risk score (from [facility] [place]0 risk: 5 SCD applied (from [facility]): Yes Pharmacological prophylaxis: NA/contraindicated Pharm contraindication: thrombocytopenia Lines/Catheters IV [facility]ter [facility]from [facility] Mid Line Urinary Cath still in place: No Assessment/Plan Hospital Course Patient continues on cefepime and Zyvox for gram-positive cocci in clusters bacteremia, continues to have low-grade fever and mild tachycardia. Patient is status post 2 units of blood transfusion with hemodialysis today. Patient of Levophed since 9 PM yesterday. If patient is continues to remain he modynamically stable over 24 hours okay to transfer to telemetry. Assessment/Plan -Sepsis with gram-positive cocci in clusters bacteremia with fevers, leukocytosis, and hypotension. Continue antibiotics per ID. Dr Herrera is following in ID consultation. Continue pressors and ICU care. -Hemodialysis dependent end-stage renal disease, continue dialysis per nephrology. Dr. Beltran is following in nephrology consultation. -Leukemia, patient is undergoing chemotherapy last chemo was on Wednesday10/11/18. -Anemia multifactorial chronic disease and recent chemo, status post blood transfusion, continue to monitor H&H. -Primary hyperparathyroidism, status post complete parathyroidectomy and partial left thyroid lobectomy 2 years ago. -Left femoral hemodialysis catheter present on admission. Further recommendations based on clinical course. Plan of care discussed with Dr. Turner. Result Diagram: 10/26/18 0457 10/26/18 0457 Results 24hrs Laboratory Tests Test 10/26/18 04:57 White Blood Count 6.0 # Red Blood Count 2.15 L Hemoglobin 6.8 *L Hematocrit 21.7 L Mean Corpuscular Volume 100.9 Mean Corpuscular Hemoglobin 31.6 Mean Corpuscular Hemoglobin Concent 31.3 L Red Cell Distribution Width 16.1 H Platelet Count 181 Mean Platelet Volume 11.3 H Immature Granulocytes % 0.500 H Neutrophils % 66.3 Segmented Neutrophils % (Manual) 59 Band Neutrophils % (Manual) 4 Lymphocytes % 18.5 Lymphocytes % (Manual) 29 Monocytes % 9.9 Monocytes % (Manual) 4 Eosinophils % 4.5 Eosinophils % (Manual) 4 Basophils % 0.3 Nucleated Red Blood Cells % 1 H Immature Granulocytes # 0.030 Neutrophils # 4.0 Neutrophils # (Manual) 3.6 Band Neutrophils # 0.2 Lymphocytes (Manual) 1.7 Lymphocytes # 1.1 Monocytes # 0.6 Monocytes # (Manual) 0.2 L Eosinophils # 0.3 Basophils # 0.0 Nucleated Red Blood Cells # 0.0 Platelet Estimate NORMAL Giant Platelets 2 H Polychromasia 1+ Anisocytosis 1+ Microcytosis 1+ Sodium Level 138 Potassium Level 4.7 Chloride Level 98 Carbon Dioxide Level 26 Anion Gap 14 H Blood Urea Nitrogen 34 #H Creatinine 5.27 H Est Glomerular Filtrat Rate mL/min 9 L Glucose Level 105 Calcium Level 7.6 L Exam/Review of Systems Exam Vitals Vital Signs Date Temp Pulse Resp B/P (MAP) Pulse Ox O2 O2 Flow FiO2 Time Delivery Rate 10/26/18 100.5 115 16 116/83 100 Room Air 15:00 (94) Intake and Output 10/25/18 10/25/18 10/26/18 1515:00 23:00 07:00 IntakeIntake Total 384.7 ml 998.90 ml 450 ml OutputOutput Total 300 ml BalanceBalance 84.7 ml 998.90 ml 450 ml Exam Constitutional: alert Respiratory: clear to auscultation Cardiovascular: regular rate and rhythm Gastrointestinal: soft, non-tender Musculoskeletal: nl extremities to inspection Extremities: normal pulses 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: nl mental status Skin: nl turgor Additional Comments Left femoral hemodialysis catheter, left upper extremity AV fistula nonfunctional Results Results 24hrs Laboratory Tests Test 10/26/18 04:57 White Blood Count 6.0 # Red Blood Count 2.15 L Hemoglobin 6.8 *L Hematocrit 21.7 L Mean Corpuscular Volume 100.9 Mean Corpuscular Hemoglobin 31.6 Mean Corpuscular Hemoglobin Concent 31.3 L Red Cell Distribution Width 16.1 H Platelet Count 181 Mean Platelet Volume 11.3 H Immature Granulocytes % 0.500 H Neutrophils % 66.3 Segmented Neutrophils % (Manual) 59 Band Neutrophils % (Manual) 4 Lymphocytes % 18.5 Lymphocytes % (Manual) 29 Monocytes % 9.9 Monocytes % (Manual) 4 Eosinophils % 4.5 Eosinophils % (Manual) 4 Basophils % 0.3 Nucleated Red Blood Cells % 1 H Immature Granulocytes # 0.030 Neutrophils # 4.0 Neutrophils # (Manual) 3.6 Band Neutrophils # 0.2 Lymphocytes (Manual) 1.7 Lymphocytes # 1.1 Monocytes # 0.6 Monocytes # (Manual) 0.2 L Eosinophils # 0.3 Basophils # 0.0 Nucleated Red Blood Cells # 0.0 Platelet Estimate NORMAL Giant Platelets 2 H Polychromasia 1+ Anisocytosis 1+ Microcytosis 1+ Sodium Level 138 Potassium Level 4.7 Chloride Level 98 Carbon Dioxide Level 26 Anion Gap 14 H Blood Urea Nitrogen 34 #H Creatinine 5.27 H Est Glomerular Filtrat Rate mL/min 9 L Glucose Level 105 Calcium Level 7.6 L Medications Medication Current Medications Albumin Human 100 ml @ 100 mls/hr WITH DIALYSIS PRN IV SBP <90 DURING DIALYSIS Last administered on 10/24/18at 21:00; Admin Dose 100 MLS/HR; Start 10/24/18 at 18:00 Sodium Chloride (NS) -To prime the dialy... DIRECTED FOR HD PRN IV HD; Start 10/24/18 at 18:00 Heparin Sodium (Porcine) (Heparin (1000 Units/ml)) 5,200 unit AFTER DIALYSIS CATHETER Last administered on 10/25/18at 00:49; Admin Dose 5,200 UNIT; Start 10/24/18 at 22:30 Sodium Chloride 250 ml @ 250 mls/hr Q1H PRN IV tachycardia Last administered on 10/25/18 02:24; Admin Dose 250 MLS/HR; Start 10/25/18 at 01:00 Diphenhydramine HCl (Benadryl) 25 mg Q6H PRN IV ALLERGIC REACTION Last administered on 10/26/18at 11:21; Admin Dose 25 MG; Start 10/25/18 at 01:00 Acetaminophen (Tylenol Tab) 650 mg Q4 PRN PO FEVER Last administered on 10/26/18at 14:54; Admin Dose 650 MG; Start 10/25/18 at 01:00 Cefepime HCl 50 ml @ 100 mls/hr Q24H IVPB Last administered on 10/26/18 02:29; Admin Dose 100 MLS/HR; Start 10/25/18 at 02:30 Linezolid 300 ml @ 300 mls/hr Q12@0600,1800 IVPB Last administered on 10/26/18 05:16; Admin Dose 300 MLS/HR; Start 10/25/18 at 06:00 Norepinephrine 250 ml @ 1.875 mls/ hr TITRATE IV Last administered on 10/25/18at 04:10; Admin Dose 1.875 MLS/HR; Start 10/25/18 at 04:30 Sevelamer Carbonate (Renvela) 800 mg WITH MEALS PO Last administered on 10/26/18at 13:29; Admin Dose 800 MG; Start 10/25/18 at 07:35 Midodrine (Proamatine) 5 mg TID@09,13,17 PO Last administered on 10/26/18at 08:40; Admin Dose 5 MG; Start 10/26/18 at 09:00 Epoetin Maxwell (Epogen (Esrd)) 10,000 units MoWeFr@17 SC ; Start 10/26/18 at 17:00 Lidocaine (Xylocaine 1% (Mdv) 20 ml) 1 ml WITH DIALYSIS PRN INJ PRIOR TO CANULLATION/HD; Start 10/26/18 at 12:30 Diphenhydramine HCl (Benadryl) 50 mg ONCE PRN IV itchiness; Start 10/26/18 at 12:30 Ondansetron HCl (Zofran Inj) 4 mg Q4H PRN IV NAUSEA AND/OR VOMITING; Start 10/26/18 at 15:30 Morphine Sulfate (morphine) 2 mg Q4H PRN IV SEVERE PAIN LEVEL 7-10; Start 10/26/18 at 15:30 ERICK ROBERTSON Oct 26, 2018 15:33
[2018-10-26] MEDS: morphine 2 MG INJ IV PRN ×2 (16:59→20:47)
[2018-10-26] MEDS ORDERED: EPOETIN 10000 UNITS/1 ML INJ (ESRD) SC SCH (17:00)
[2018-10-27] MEDS: morphine 2 MG INJ IV PRN ×4 (03:12→20:24)
[2018-10-27] MEDS: CEFEPIME 1GM/50 ML (PMX) 50 ML IVPB SCH (03:12)
[2018-10-27 04:02] VITALS: BP 112/60; PULSE 70; RESP 18
[2018-10-27] MEDS: LINEZOLID 600 MG/300 ML IVPB SCH (05:23)
[2018-10-27] MEDS: DIPHENHYDRAMINE 50 MG INJ IV PRN ×3 (05:24→17:55)
[2018-10-27 07:12] VITALS: BP 105/58; PULSE 68; RESP 18
[2018-10-27] MEDS: MIDODRINE 5 MG TAB PO SCH ×3 (08:40→16:56)
[2018-10-27] MEDS: SEVELAMER CARBONATE 800 MG TABLET PO SCH ×4 (08:40→17:59)
--- NOTE | 2018-10-27 10:44 | CONS ---
Assessment/Plan Assessment/Plan Assessment/Plan (Daily) 1. Septic shock on levophed 2. ESRD on HD MWF schedule , left femoral permacath for HD access 3. Bacteremia with Blood cx growing staph aureus 4. H/o Leukemia currently on chemotherapy, last chem on 10/21/18 5. H/o Primary hyperparathyroidism, status post complete parathyroidectomy and partial left thyroid lobectomy 2 years ago. 6. H/o Anemia of ESRD 7, Difficult vascular Access Plan: levophed for septic shock , staph aureus bacteremia - IV abx vancomycin , cefepime and IV zyvox- ID following, pt is very difficult vascular access- only access she had is left groin permacath s/p HD yesterday - 2.5 L removed, HD ordered for Wednesday , pt regular schedule for HD is MWF Continue other home m Consultation Date/Type/Reason Admit Date/Time Oct 25, 2018 at 04:13 Initial Consult Date Type of Consult NEPHROLOGY Requesting Provider: LUANNE WALTER MD Date/Time of Note DATE: 10/27/18 TIME: 10:44 Exam/Review of Systems Exam Vitals Vital Signs Date Temp Pulse Resp B/P (MAP) Pulse Ox O2 O2 Flow FiO2 Time Delivery Rate 10/27/18 98.0 68 18 105/58 97 07:12 (74) 10/27/18 Room Air 04:02 Intake and Output 10/26/18 10/26/18 10/27/18 1515:00 23:00 07:00 IntakeIntake Total 200 ml 300 ml 450 ml OutputOutput Total 4500 ml BalanceBalance -4300 ml 300 ml 450 ml Exam Constitutional: alert, awake, no acute distress Respiratory: clear to auscultation Cardiovascular: regular rate and rhythm Gastrointestinal: soft, non-tender Musculoskeletal: nl extremities to inspection Extremities: normal pulses 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: nl mental status Additional Comments Left femoral hemodialysis catheter, left upper extremity AV fistula nonfunctional Results Result Diagram: 10/27/18 0629 10/27/18 0629 Results 24hrs Laboratory Tests Test 10/27/18 05:37 10/27/18 06:29 Lab Scanned Report BLOOD TRANSFUSION White Blood Count 9.6 # Red Blood Count 3.03 #L Hemoglobin 9.5 #L Hematocrit 29.2 #L Mean Corpuscular Volume 96.4 Mean Corpuscular Hemoglobin 31.4 Mean Corpuscular Hemoglobin Concent 32.5 Red Cell Distribution Width 18.3 H Platelet Count 228 # Mean Platelet Volume 10.6 H Immature Granulocytes % 0.500 H Neutrophils % 73.0 Lymphocytes % 16.0 Monocytes % 8.2 Eosinophils % 1.9 Basophils % 0.4 Nucleated Red Blood Cells % 0.0 Immature Granulocytes # 0.050 H Neutrophils # 7.0 Lymphocytes # 1.5 Monocytes # 0.8 Eosinophils # 0.2 Basophils # 0.0 Nucleated Red Blood Cells # 0.0 Sodium Level 136 Potassium Level 4.3 Chloride Level 97 Carbon Dioxide Level 28 Anion Gap 11 Blood Urea Nitrogen 22 #H Creatinine 4.43 H Est Glomerular Filtrat Rate mL/min 11 L Glucose Level 88 Calcium Level 7.9 L Medications Medication Current Medications Albumin Human 100 ml @ 100 mls/hr WITH DIALYSIS PRN IV SBP <90 DURING DIALYSIS Last administered on 10/24/18 21:00; Admin Dose 100 MLS/HR; Start 10/24/18 at 18:00 Sodium Chloride (NS) -To prime the dialy... DIRECTED FOR HD PRN IV HD; Start 10/24/18 at 18:00 Heparin Sodium (Porcine) (Heparin (1000 Units/ml)) 5,200 unit AFTER DIALYSIS CATHETER Last administered on 10/25/18 00:49; Admin Dose 5,200 UNIT; Start 10/24/18 at 22:30 Sodium Chloride 250 ml @ 250 mls/hr Q1H PRN IV tachycardia Last administered on 10/25/18 02:24; Admin Dose 250 MLS/HR; Start 10/25/18 at 01:00 Diphenhydramine HCl (Benadryl) 25 mg Q6H PRN IV ALLERGIC REACTION Last administered on 10/27/18 05:24; Admin Dose 25 MG; Start 10/25/18 at 01:00 Acetaminophen (Tylenol Tab) 650 mg Q4 PRN PO FEVER Last administered on 10/26/18 14:54; Admin Dose 650 MG; Start 10/25/18 at 01:00 Cefepime HCl 50 ml @ 100 mls/hr Q24H IVPB Last administered on 10/27/18 03:12; Admin Dose 100 MLS/HR; Start 10/25/18 at 02:30 Linezolid 300 ml @ 300 mls/hr Q12@0600,1800 IVPB Last administered on 10/27/18 05:23; Admin Dose 300 MLS/HR; Start 10/25/18 at 06:00 Sevelamer Carbonate (Renvela) 800 mg WITH MEALS PO Last administered on 10/27/18 08:40; Admin Dose 800 MG; Start 10/25/18 at 07:35 Midodrine (Proamatine) 5 mg TID@09,13,17 PO Last administered on 10/27/18 08:40; Admin Dose 5 MG; Start 10/26/18 at 09:00 Epoetin Maxwell (Epogen (Esrd)) 10,000 units MoWeFr@17 SC Last administered on 10/26/18 17:04; Admin Dose 10,000 UNITS; Start 10/26/18 at 17:00 Lidocaine (Xylocaine 1% (Mdv) 20 ml) 1 ml WITH DIALYSIS PRN INJ PRIOR TO CAN ULLATION/HD; Start 10/26/18 at 12:30 Ondansetron HCl (Zofran Inj) 4 mg Q4H PRN IV NAUSEA AND/OR VOMITING; Start 10/26/18 at 15:30 Morphine Sulfate (morphine) 2 mg Q4H PRN IV SEVERE PAIN LEVEL 7-10 Last administered on 10/27/18 08:37; Admin Dose 2 MG; Start 10/26/18 at 15:30 HENRIQUE GRANADO MD Oct 27, 2018 10:44
[2018-10-27 11:18] VITALS: BP 115/68; PULSE 70; RESP 18
--- NOTE | 2018-10-27 12:28 | PN ---
Date/Time of Note Date/Time of Note DATE: 10/27/18 TIME: 12:24 Assessment/Plan VTE Prophylaxis Risk score (from Ns)>0 risk: 3 SCD applied (from Nsg): Yes Pharmacological prophylaxis: heparin Lines/Catheters IV Catheter Type (from Nrsg): Mid Line Central line still needed: Yes Urinary Cath still in place: No Assessment/Plan Hospital Course Patient is awake alert remains afebrile, on telemetry floor. Patient status post hemodialysis. Denies any nausea vomiting diarrhea. Assessment/Plan -Sepsis with DIMITRI bacteremia with fevers, leukocytosis, and hypotension. Continue antibiotics per ID. Dr Herrera is following in ID consultation. -Hemodialysis dependent end-stage renal disease, continue dialysis per nephrology. Dr. Beltran is following in nephrology consultation. -Leukemia, patient is undergoing chemotherapy last chemo was on Wednesday10/11/18. -Anemia multifactorial chronic disease and recent chemo, status post blood transfusion, continue to monitor H&H. -Primary hyperparathyroidism, status post complete parathyroidectomy and partial left thyroid lobectomy 2 years ago. -Left femoral hemodialysis catheter present on admission. Further recommendations based on clinical course. Plan of care discussed with Dr. Turner. Result Diagram: 10/27/18 0629 10/27/18 0629 Results 24hrs Laboratory Tests Test 10/27/18 05:37 10/27/18 06:29 Lab Scanned Report BLOOD TRANSFUSION White Blood Count 9.6 # Red Blood Count 3.03 #L Hemoglobin 9.5 #L Hematocrit 29.2 #L Mean Corpuscular Volume 96.4 Mean Corpuscular Hemoglobin 31.4 Mean Corpuscular Hemoglobin Concent 32.5 Red Cell Distribution Width 18.3 H Platelet Count 228 # Mean Platelet Volume 10.6 H Immature Granulocytes % 0.500 H Neutrophils % 73.0 Lymphocytes % 16.0 Monocytes % 8.2 Eosinophils % 1.9 Basophils % 0.4 Nucleated Red Blood Cells % 0.0 Immature Granulocytes # 0.050 H Neutrophils # 7.0 Lymphocytes # 1.5 Monocytes # 0.8 Eosinophils # 0.2 Basophils # 0.0 Nucleated Red Blood Cells # 0.0 Sodium Level 136 Potassium Level 4.3 Chloride Level 97 Carbon Dioxide Level 28 Anion Gap 11 Blood Urea Nitrogen 22 #H Creatinine 4.43 H Est Glomerular Filtrat Rate mL/min 11 L Glucose Level 88 Calcium Level 7.9 L Exam/Review of Systems Exam Vitals Vital Signs Date Temp Pulse Resp B/P (MAP) Pulse Ox O2 O2 Flow FiO2 Time Delivery Rate 10/27/18 97.9 70 18 115/68 96 11:18 (84) 10/27/18 Room Air 04:02 Intake and Output 10/26/18 10/26/18 10/27/18 1515:00 23:00 07:00 IntakeIntake Total 200 ml 300 ml 450 ml OutputOutput Total 4500 ml BalanceBalance -4300 ml 300 ml 450 ml Exam Constitutional: alert Respiratory: clear to auscultation Cardiovascular: regular rate and rhythm Gastrointestinal: soft, non-tender Musculoskeletal: nl extremities to inspection Extremities: normal pulses 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: nl mental status Skin: nl turgor Additional Comments Left femoral hemodialysis catheter, left upper extremity AV fistula nonfunctional Results Results 24hrs Laboratory Tests Test 10/27/18 05:37 10/27/18 06:29 Lab Scanned Report BLOOD TRANSFUSION White Blood Count 9.6 # Red Blood Count 3.03 #L Hemoglobin 9.5 #L Hematocrit 29.2 #L Mean Corpuscular Volume 96.4 Mean Corpuscular Hemoglobin 31.4 Mean Corpuscular Hemoglobin Concent 32.5 Red Cell Distribution Width 18.3 H Platelet Count 228 # Mean Platelet Volume 10.6 H Immature Granulocytes % 0.500 H Neutrophils % 73.0 Lymphocytes % 16.0 Monocytes % 8.2 Eosinophils % 1.9 Basophils % 0.4 Nucleated Red Blood Cells % 0.0 Immature Granulocytes # 0.050 H Neutrophils # 7.0 Lymphocytes # 1.5 Monocytes # 0.8 Eosinophils # 0.2 Basophils # 0.0 Nucleated Red Blood Cells # 0.0 Sodium Level 136 Potassium Level 4.3 Chloride Level 97 Carbon Dioxide Level 28 Anion Gap 11 Blood Urea Nitrogen 22 #H Creatinine 4.43 H Est Glomerular Filtrat Rate mL/min 11 L Glucose Level 88 Calcium Level 7.9 L Medications Medication Current Medications Albumin Human 100 ml @ 100 mls/hr WITH DIALYSIS PRN IV SBP <90 DURING DIALYSIS Last administered on 10/24/18at 21:00; Admin Dose 100 MLS/HR; Start 10/24/18 at 18:00 Sodium Chloride (NS) -To prime the dialy... DIRECTED FOR HD PRN IV HD; Start 10/24/18 at 18:00 Heparin Sodium (Porcine) (Heparin (1000 Units/ml)) 5,200 unit AFTER DIALYSIS CATHETER Last administered on 10/25/18 00:49; Admin Dose 5,200 UNIT; Start 10/24/18 at 22:30 Sodium Chloride 250 ml @ 250 mls/hr Q1H PRN IV tachycardia Last administered on 10/25/18 02:24; Admin Dose 250 MLS/HR; Start 10/25/18 at 01:00 Diphenhydramine HCl (Benadryl) 25 mg Q6H PRN IV ALLERGIC REACTION Last administered on 10/27/18 11:54; Admin Dose 25 MG; Start 10/25/18 at 01:00 Acetaminophen (Tylenol Tab) 650 mg Q4 PRN PO FEVER Last administered on 10/26/18 14:54; Admin Dose 650 MG; Start 10/25/18 at 01:00 Cefepime HCl 50 ml @ 100 mls/hr Q24H IVPB Last administered on 10/27/18 03:12; Admin Dose 100 MLS/HR; Start 10/25/18 at 02:30 Linezolid 300 ml @ 300 mls/hr Q12@0600,1800 IVPB Last administered on 10/27/18 05:23; Admin Dose 300 MLS/HR; Start 10/25/18 at 06:00 Sevelamer Carbonate (Renvela) 800 mg WITH MEALS PO Last administered on 10/27/18 11:53; Admin Dose 800 MG; Start 10/25/18 at 07:35 Midodrine (Proamatine) 5 mg TID@09,13,17 PO Last administered on 10/27/18 08:40; Admin Dose 5 MG; Start 10/26/18 at 09:00 Epoetin Maxwell (Epogen (Esrd)) 10,000 units MoWeFr@17 SC Last administered on 10/26/18 17:04; Admin Dose 10,000 UNITS; Start 10/26/18 at 17:00 Lidocaine (Xylocaine 1% (Mdv) 20 ml) 1 ml WITH DIALYSIS PRN INJ PRIOR TO CANULLATION/HD; Start 10/26/18 at 12:30 Ondansetron HCl (Zofran Inj) 4 mg Q4H PRN IV NAUSEA AND/OR VOMITING; Start 10/26/18 at 15:30 Morphine Sulfate (morphine) 2 mg Q4H PRN IV SEVERE PAIN LEVEL 7-10 Last administered on 10/27/18at 08:37; Admin Dose 2 MG; Start 10/26/18 at 15:30 ERICK ROBERTSON Oct 27, 2018 12:28
[2018-10-27 15:03] VITALS: BP 104/72; PULSE 65; RESP 18
--- NOTE | 2018-10-27 16:08 | CONS ---
Assessment/Plan Assessment/Plan Hospital Course (Demo Recall) # sepsis, heme/onc - sepsis due to bacteremia, recurrent - bacteremia due to MSSA, likely recurrent - h/o transthoracic echo on 07/19/2018, no e/o endocarditis - s/p removal of permacath on R chest wall on 07/14/2018 - s/p R femoral HD justin catheter placement 07/14/2018, replaced by HD permaca th 07/19/2018 - pain/increased sensitivity of R groin after replacement of the justin with permacath. 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 Last used for HD in 04/2018. 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 The culture of the tip of the removed catheter, blood cultures and swab of the catheter site were negative. Pt completed an empiric course of renally dosed pip/tazo (06/13/2018-06/18/2018) - h/o placement of a permacath on R chest wall on 06/23/2018 - h/o creation of AVF in [facility] [place] in 2016 - h/o 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 Pt took renally dosed valACV (07/15/2018-07/17/2018) - adverse reaction to vancomycin (pruritus) - adverse reaction to linezolid (thrombocytopenia). Linezolid was discontinued (06/12/2018-06/17/2018) Recommendations: - Cefazolin renally adjusted; asked pharmacy to adjust - repeat bcxs in am - Consider line holiday - Consider echocardiogram to r/o endocarditis - In light of recurrent bacteremias and previous hx of thrombosed L brachiocephalic AV fistula will consider a more prolonged course of IV abx - Await final sensis of S. aureus from 10/24/18 and 10/25/18 - Ordered repeat blood cx - 1 periph, 1 HD cath (one this am was also done from midline) - hygiene emphasized - consider vascular re-evaluation for possible fistula sites or alternative hd cath site Consultation Date/Type/Reason Admit Date/Time Oct 25, 2018 at 04:13 Initial Consult Date 10/25/18 Type of Consult ID Requesting Provider: LUANNE WALTER MD Date/Time of Note DATE: 10/27/18 TIME: 16:06 24 HR Interval Summary Free Text/Dictation d/w nursing this afternoon. Patient apparently changed to linezolid after possible allergic reaction to Vanco. patient notes itching Exam/Review of Systems Exam Vitals Vital Signs Date Temp Pulse Resp B/P (MAP) Pulse Ox O2 O2 Flow FiO2 Time Delivery Rate 10/27/18 98.0 65 18 104/72 97 15:03 (83) 10/27/18 Room Air 04:02 Intake and Output 10/26/18 10/26/18 10/27/18 1515:00 23:00 07:00 IntakeIntake Total 200 ml 300 ml 450 ml OutputOutput Total 4500 ml BalanceBalance -4300 ml 300 ml 450 ml Constitutional: alert, oriented, well developed Psych: no complaints, nl mood/affect Eyes: nl conjunctiva, EOMI, nl lids, nl sclera, PERRL Neck: supple, non-tender Respiratory: clear to auscultation, normal air movement Cardiovascular: regular rate and rhythm, nl pulses Gastrointestinal: soft, nl liver, spleen, non-tender Extremities: normal pulses 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: BURNISHER II-XII intact, nl mental status, nl speech, nl strength Results Result Diagram: 10/27/18 0629 10/27/18 0629 Results 24hrs Laboratory Tests Test 10/27/18 05:37 10/27/18 06:29 Lab Scanned Report BLOOD TRANSFUSION White Blood Count 9.6 # Red Blood Count 3.03 #L Hemoglobin 9.5 #L Hematocrit 29.2 #L Mean Corpuscular Volume 96.4 Mean Corpuscular Hemoglobin 31.4 Mean Corpuscular Hemoglobin Concent 32.5 Red Cell Distribution Width 18.3 H Platelet Count 228 # Mean Platelet Volume 10.6 H Immature Granulocytes % 0.500 H Neutrophils % 73.0 Lymphocytes % 16.0 Monocytes % 8.2 Eosinophils % 1.9 Basophils % 0.4 Nucleated Red Blood Cells % 0.0 Immature Granulocytes # 0.050 H Neutrophils # 7.0 Lymphocytes # 1.5 Monocytes # 0.8 Eosinophils # 0.2 Basophils # 0.0 Nucleated Red Blood Cells # 0.0 Sodium Level 136 Potassium Level 4.3 Chloride Level 97 Carbon Dioxide Level 28 Anion Gap 11 Blood Urea Nitrogen 22 #H Creatinine 4.43 H Est Glomerular Filtrat Rate mL/min 11 L Glucose Level 88 Calcium Level 7.9 L Medications Medication Current Medications Albumin Human 100 ml @ 100 mls/hr WITH DIALYSIS PRN IV SBP <90 DURING DIALYSIS Last administered on 10/24/18at 21:00; Admin Dose 100 MLS/HR; Start 10/24/18 at 18 :00 Sodium Chloride (NS) -To prime the dialy... DIRECTED FOR HD PRN IV HD; Start 10/24/18 at 18:00 Heparin Sodium (Porcine) (Heparin (1000 Units/ml)) 5,200 unit AFTER DIALYSIS CATHETER Last administered on 10/25/18at 00:49; Admin Dose 5,200 UNIT; Start 10/24/18 at 22:30 Sodium Chloride 250 ml @ 250 mls/hr Q1H PRN IV tachycardia Last administered on 10/25/18at 02:24; Admin Dose 250 MLS/HR; Start 10/25/18 at 01:00 Diphenhydramine HCl (Benadryl) 25 mg Q6H PRN IV ALLERGIC REACTION Last administered on 10/27/18at 11:54; Admin Dose 25 MG; Start 10/25/18 at 01:00 Acetaminophen (Tylenol Tab) 650 mg Q4 PRN PO FEVER Last administered on 10/26/18 14:54; Admin Dose 650 MG; Start 10/25/18 at 01:00 Cefepime HCl 50 ml @ 100 mls/hr Q24H IVPB Last administered on 10/27/18 03:12; Admin Dose 100 MLS/HR; Start 10/25/18 at 02:30 Linezolid 300 ml @ 300 mls/hr Q12@0600,1800 IVPB Last administered on 10/27/18 05:23; Admin Dose 300 MLS/HR; Start 10/25/18 at 06:00 Sevelamer Carbonate (Renvela) 800 mg WITH MEALS PO Last administered on 10/27/18 11:53; Admin Dose 800 MG; Start 10/25/18 at 07:35 Midodrine (Proamatine) 5 mg TID@09,13,17 PO Last administered on 10/27/18 13:13; Admin Dose 5 MG; Start 10/26/18 at 09:00 Epoetin Maxwell (Epogen (Esrd)) 10,000 units MoWeFr@17 SC Last administered on 10/26/18 17:04; Admin Dose 10,000 UNITS; Start 10/26/18 at 17:00 Lidocaine (Xylocaine 1% (Mdv) 20 ml) 1 ml WITH DIALYSIS PRN INJ PRIOR TO CANULLATION/HD; Start 10/26/18 at 12:30 Ondansetron HCl (Zofran Inj) 4 mg Q4H PRN IV NAUSEA AND/OR VOMITING; Start 10/26/18 at 15:30 Morphine Sulfate (morphine) 2 mg Q4H PRN IV SEVERE PAIN LEVEL 7-10 Last administered on 10/27/18 13:27; Admin Dose 2 MG; Start 10/26/18 at 15:30 MUMTAZ LOPEZ MD Oct 27, 2018 16:08
[2018-10-27] MEDS ORDERED: CEFAZOLIN 2 GM/50 ML (PMX) 50 ML IVPB SCH (16:30)
[2018-10-27] MEDS: CEFAZOLIN 1 GM/50 ML (PMX) 50 ML IVPB SCH (16:52)
[2018-10-27 19:44] VITALS: BP 117/76; PULSE 60; RESP 20
[2018-10-27] MEDS: ONDANSETRON 4 MG INJ IV PRN (20:24)
[2018-10-27 23:26] VITALS: BP 106/62; PULSE 62; RESP 18
[2018-10-28] VITALS (21 sets, daily range): BP systolic 101–133; BP diastolic 56–97; PULSE 56–88; RESP 16–20
[2018-10-28] MEDS: DIPHENHYDRAMINE 50 MG INJ IV PRN ×4 (00:22→18:49)
[2018-10-28] MEDS: morphine 2 MG INJ IV PRN ×4 (03:34→21:58)
[2018-10-28] MEDS: ONDANSETRON 4 MG INJ IV PRN (03:37)
[2018-10-28] MEDS: MIDODRINE 5 MG TAB PO SCH ×3 (09:03→18:11)
--- NOTE | 2018-10-28 10:23 | CONS ---
Assessment/Plan Assessment/Plan Assessment/Plan (Daily) 1. Septic shock on levophed 2. ESRD on HD MWF schedule , left femoral permacath for HD access 3. Bacteremia with Blood cx growing staph aureus 4. H/o Leukemia currently on chemotherapy, last chem on 10/21/18 5. H/o Primary hyperparathyroidism, status post complete parathyroidectomy and partial left thyroid lobectomy 2 years ago. 6. H/o Anemia of ESRD 7, Difficult vascular Access Plan: levophed for septic shock , staph aureus bacteremia - IV abx vancomycin , cefepime and IV zyvox- ID following, pt is very difficult vascular access- only access she had is left groin permacath s/p HD today - 3 L removed, HD ordered for Wednesday , pt regular schedule for HD is MWF Continue other home medications will follow up Consultation Date/Type/Reason Admit Date/Time Oct 25, 2018 at 04:13 Initial Consult Date Type of Consult NEPHROLOGY Requesting Provider: LUANNE WALTER MD Date/Time of Note DATE: 10/28/18 TIME: 10:23 Exam/Review of Systems Exam Vitals Vital Signs Date Temp Pulse Resp B/P (MAP) Pulse Ox O2 O2 Flow FiO2 Time Delivery Rate 10/28/18 97.6 67 18 117/76 97 07:29 (90) 10/27/18 Room Air 04:02 Intake and Output 10/27/18 10/27/18 10/28/18 1414:59 22:59 06:59 IntakeIntake Total 600 ml 240 ml 500 ml BalanceBalance 600 ml 240 ml 500 ml Exam Constitutional: alert, awake, no acute distress Respiratory: clear to auscultation Cardiovascular: regular rate and rhythm Gastrointestinal: soft, non-tender Musculoskeletal: nl extremities to inspection Extremities: normal pulses 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: nl mental status Additional Comments Left femoral hemodialysis catheter, left upper extremity AV fistula nonfunctional Results Result Diagram: 10/28/18 0546 10/28/18 0546 Results 24hrs Laboratory Tests Test 10/28/18 05:46 White Blood Count 8.4 Red Blood Count 3.41 L Hemoglobin 10.5 L Hematocrit 32.5 L Mean Corpuscular Volume 95.3 Mean Corpuscular Hemoglobin 30.8 Mean Corpuscular Hemoglobin Concent 32.3 Red Cell Distribution Width 17.3 H Platelet Count 275 # Mean Platelet Volume 10.9 H Immature Granulocytes % 0.600 H Neutrophils % 65.4 Lymphocytes % 23.9 Monocytes % 6.3 Eosinophils % 3.2 Basophils % 0.6 Nucleated Red Blood Cells % 0.0 Immature Granulocytes # 0.050 H Neutrophils # 5.5 Lymphocytes # 2.0 Monocytes # 0.5 Eosinophils # 0.3 Basophils # 0.1 Nucleated Red Blood Cells # 0.0 Sodium Level 140 Potassium Level 5.0 Chloride Level 98 Carbon Dioxide Level 26 Anion Gap 16 H Blood Urea Nitrogen 38 #H Creatinine 7.16 #H Est Glomerular Filtrat Rate mL/min 7 L Glucose Level 74 Calcium Level 7.5 L Medications Medication Current Medications Albumin Human 100 ml @ 100 mls/hr WITH DIALYSIS PRN IV SBP <90 DURING DIALYSIS Last administered on 10/24/18 21:00; Admin Dose 100 MLS/HR; Start 10/24/18 at 18:00 Heparin Sodium (Porcine) (Heparin (1000 Units/ml)) 5,200 unit AFTER DIALYSIS CATHETER Last administered on 10/25/18 00:49; Admin Dose 5,200 UNIT; Start 10/24/18 at 22:30 Sodium Chloride 250 ml @ 250 mls/hr Q1H PRN IV tachycardia Last administered on 10/25/18 02:24; Admin Dose 250 MLS/HR; Start 10/25/18 at 01:00 Diphenhydramine HCl (Benadryl) 25 mg Q6H PRN IV ALLERGIC REACTION Last administered on 10/28/18 06:12; Admin Dose 25 MG; Start 10/25/18 at 01:00 Acetaminophen (Tylenol Tab) 650 mg Q4 PRN PO FEVER Last administered on 10/26/18 14:54; Admin Dose 650 MG; Start 10/25/18 at 01:00 Sevelamer Carbonate (Renvela) 800 mg WITH MEALS PO Last administered on 10/27/18 17:59; Admin Dose 800 MG; Start 10/25/18 at 07:35 Midodrine (Proamatine) 5 mg TID@,13,17 PO Last administered on 10/28/18 09:03; Admin Dose 5 MG; Start 10/26/18 at 09:00 Epoetin Maxwell (Epogen (Esrd)) 10,000 units MoWeFr@17 SC Last administered on 7/3/19at 17:04; Admin Dose 10,000 UNITS; Start 10/26/18 at 17:00 Lidocaine (Xylocaine 1% (Mdv) 20 ml) 1 ml WITH DIALYSIS PRN INJ PRIOR TO CANULLATION/HD; Start 10/26/18 at 12:30 Ondansetron HCl (Zofran Inj) 4 mg Q4H PRN IV NAUSEA AND/OR VOMITING Last administered on 10/28/18 03:37; Admin Dose 4 MG; Start 10/26/18 at 15:30 Morphine Sulfate (morphine) 2 mg Q4H PRN IV SEVERE PAIN LEVEL 7-10 Last admi nistered on 10/28/18 09:03; Admin Dose 2 MG; Start 10/26/18 at 15:30 Cefazolin Sodium 50 ml @ 100 mls/hr Q24H IVPB Last administered on 10/27/18 16:52; Admin Dose 100 MLS/HR; Start 10/27/18 at 17:00 HENRIQUE GRANADO MD Oct 28, 2018 10:23
--- NOTE | 2018-10-28 10:57 | CONS ---
[facility] HCIS Consult Follow-up Patient Name: Maria Luisa Lakhani Unit Number: [id number] Date of : 1985 Patient Status: Admitted Inpatient Attending Doctor: Pawan Walter MD Edit: GINGER LEONE M.D. on 10/28/18 @ 20:35 Sulema: I discussed the management with YOKASTA Bueno and agree Assessment/Plan Assessment/Plan Hospital Course (Demo Recall) # sepsis, heme/onc - sepsis due to bacteremia, recurrent - persistent bacteremia on 10/24, 10/25, and 10/26 due to MSSA, recurrent - h/o transthoracic echo on 07/19/2018, no e/o endocarditis - s/p removal of permacath on R chest wall on 07/14/2018 - s/p R femoral HD justin catheter placement 07/14/2018, replaced by HD permacath 07/19/2018 - pain/increased sensitivity of R groin after replacement of the Perez with permacath. 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 Last used for HD in 04/2018. Was scheduled to get a new graft [place] [facility] [place] - h/o swelling on the scalp and chest wall, possibly due to collateral veins as a result of thrombosis of AVF - hypotension after HD - h/o recurrent infection of HD catheter site/HD catheter - h/o removal and placement of a new Perez catheter in 05/2018. The culture of the tip of the removed catheter, blood cultures and swab of the catheter site were negative. Pt completed an empiric course of renally dosed pip/tazo (06/13/2018-06/18/2018) - h/o placement of a permacath on R chest wall on 06/23/2018 - h/o creation of AVF in LUE in 2016 - h/o 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 Pt took renally dosed valACV (07/15/2018-07/17/2018) - adverse reaction to vancomycin (pruritus) - adverse reaction to linezolid (thrombocytopenia). Linezolid was discontinued (06/12/2018-06/17/2018) Recommendations: - Continue renally adjusted Cefazolin (10/27/2018-) - Follow up repeat blood cultures from 10/27/2018 - We recommend repeat 2D echocardiogram to r/o endocarditis - Ordered MRI with contrast of lumbar spine to r/o discitis as d/w Dr. Beltran - In light of recurrent bacteremias and previous hx of thrombosed L brachiocephalic AV fistula will consider a more prolonged course of IV abx - hygiene emphasized - consider vascular re-evaluation for possible fistula sites or alternative HD cath site Management d/w patient, BRIANA Price, and with Dr. Leone. I also d/w YOKASTA Mortensen Total time spent: 60 min Consultation Date/Type/Reason Admit Date/Time Oct 25, 2018 at 04:13 Initial Consult Date 10/25/18 Type of Consult Infectious Disease Requesting Provider: PAWAN WALTER MD Date/Time of Note DATE: 10/28/18 TIME: 10:57 24 HR Interval Summary Free Text/Dictation C/o generalized severe bone pain that improved with pain medicine, now rating 3/10 but was 10/10 prior to pain med. Pt states the pain is most severe in her low back/tail bone area; pt reports has low back pain for about 4 months. C/o generalized pruritus but no rash. Was given Benadryl 25 mg earlier and pt is asking if she can have stronger dose. Denies SOB, n/v/d, dysuria. Blood cultures from 10/24 and 10/25 area all susceptible to Cefazolin per d/w Val from Micro. Exam/Review of Systems Exam Vitals Vital Signs Date Temp Pulse Resp B/P (MAP) Pulse Ox O2 O2 Flow FiO2 Time Delivery Rate 10/28/18 97.6 67 18 117/76 97 07:29 (90) 10/27/18 Room Air 04:02 Intake and Output 10/27/18 10/27/18 10/28/18 1515:00 23:00 07:00 IntakeIntake Total 600 ml 240 ml 500 ml BalanceBalance 600 ml 240 ml 500 ml Constitutional: alert, oriented, well developed, other (thin; HD in progress) Psych: no complaints Head: normocephalic, atraumatic Eyes: nl conjunctiva, nl lids, nl sclera ENMT: nl external ears & nose, nl lips & teeth, nl nasal mucosa & septum, mucosa pink and moist (no thrush) Neck: supple Respiratory: clear to auscultation, normal air movement, other (on room air); No wheezing Cardiovascular: regular rate and rhythm, nl pulses, other (RUE midline c/d/i) Gastrointestinal: soft, non-tender Genitourinary - Female: other (L groin HD catheter currently in use for HD, appears c/d/i) Musculoskeletal: nl extremities to inspection, other (+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) Extremities: normal pulses, other (LUE old AVF) 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: nl mental status, nl speech, nl strength Skin: nl turgor, other (pt is currently scratching her upper arms with no erythema or rash noted); No rash or lesions Results Result Diagram: 10/28/18 0546 10/28/18 0546 Results 24hrs Laboratory Tests Test 10/28/18 05:46 White Blood Count 8.4 Red Blood Count 3.41 L Hemoglobin 10.5 L Hematocrit 32.5 L Mean Corpuscular Volume 95.3 Mean Corpuscular Hemoglobin 30.8 Mean Corpuscular Hemoglobin Concent 32.3 Red Cell Distribution Width 17.3 H Platelet Count 275 # Mean Platelet Volume 10.9 H Immature Granulocytes % 0.600 H Neutrophils % 65.4 Lymphocytes % 23.9 Monocytes % 6.3 Eosinophils % 3.2 Basophils % 0.6 Nucleated Red Blood Cells % 0.0 Immature Granulocytes # 0.050 H Neutrophils # 5.5 Lymphocytes # 2.0 Monocytes # 0.5 Eosinophils # 0.3 Basophils # 0.1 Nucleated Red Blood Cells # 0.0 Sodium Level 140 Potassium Level 5.0 Chloride Level 98 Carbon Dioxide Level 26 Anion Gap 16 H Blood Urea Nitrogen 38 #H Creatinine 7.16 #H Est Glomerular Filtrat Rate mL/min 7 L Glucose Level 74 Calcium Level 7.5 L Medications Medication Current Medications Albumin Human 100 ml @ 100 mls/hr WITH DIALYSIS PRN IV SBP <90 DURING DIALYSIS Last administered on 10/24/18 21:00; Admin Dose 100 MLS/HR; Start 10/24/18 at 18:00 Heparin Sodium (Porcine) (Heparin (1000 Units/ml)) 5,200 unit AFTER DIALYSIS CATHETER Last administered on 10/25/18 00:49; Admin Dose 5,200 UNIT; Start 10/24/18 at 22:30 Sodium Chloride 250 ml @ 250 mls/hr Q1H PRN IV tachycardia Last administered on 10/25/18 02:24; Admin Dose 250 MLS/HR; Start 10/25/18 at 01:00 Diphenhydramine HCl (Benadryl) 25 mg Q6H PRN IV ALLERGIC REACTION Last administered on 10/28/18 06:12; Admin Dose 25 MG; Start 10/25/18 at 01:00 Acetaminophen (Tylenol Tab) 650 mg Q4 PRN PO FEVER Last administered on 10/26/18 14:54; Admin Dose 650 MG; Start 10/25/18 at 01:00 Sevelamer Carbonate (Renvela) 800 mg WITH MEALS PO Last administered on 10/27/18 17:59; Admin Dose 800 MG; Start 10/25/18 at 07:35 Midodrine (Proamatine) 5 mg TID@,13,17 PO Last administered on 10/28/18 09:03; Admin Dose 5 MG; Start 10/26/18 at 09:00 Epoetin Maxwell (Epogen (Esrd)) 10,000 units MoWeFr@17 SC Last administered on 10/26/18at 17:04; Admin Dose 10,000 UNITS; Start 10/26/18 at 17:00 Lidocaine (Xylocaine 1% (Mdv) 20 ml) 1 ml WITH DIALYSIS PRN INJ PRIOR TO CANULLATION/HD; Start 10/26/18 at 12:30 Ondansetron HCl (Zofran Inj) 4 mg Q4H PRN IV NAUSEA AND/OR VOMITING Last administered on 10/28/18at 03:37; Admin Dose 4 MG; Start 10/26/18 at 15:30 Morphine Sulfate (morphine) 2 mg Q4H PRN IV SEVERE PAIN LEVEL 7-10 Last administered on 10/28/18at 09:03; Admin Dose 2 MG; Start 10/26/18 at 15:30 Cefazolin Sodium 50 ml @ 100 mls/hr Q24H IVPB Last administered on 10/27/18at 16:52; Admin Dose 100 MLS/HR; Start 10/27/18 at 17:00 EDIE BUENO NP Oct 28, 2018 10:57
[2018-10-28] MEDS: SEVELAMER CARBONATE 800 MG TABLET PO SCH ×2 (12:13→17:49)
--- NOTE | 2018-10-28 12:39 | PN ---
Date/Time of Note Date/Time of Note DATE: 10/28/18 TIME: 12:38 Assessment/Plan VTE Prophylaxis Risk score (from Ns)>0 risk: 3 SCD applied (from [facility] [place]): Yes SCD contraindicated: other Pharmacological prophylaxis: other Pharm contraindication: other Lines/Catheters [facility]ter Type (from [facility] Mid Line Central line still needed: Yes Urinary Cath still in place: No Assessment/Plan Assessment/Plan -Sepsis with DIMITRI bacteremia with fevers, leukocytosis, and hypotension. Continue antibiotics per ID. Dr Herrera is following in ID consultation. -Hemodialysis dependent end-stage renal disease, continue dialysis per neph rology. Dr. Beltran is following in nephrology consultation. -Leukemia, patient is undergoing chemotherapy last chemo was on Wednesday10/11/18. -Anemia multifactorial chronic disease and recent chemo, status post blood transfusion, continue to monitor H&H. -Primary hyperparathyroidism, status post complete parathyroidectomy and partial left thyroid lobectomy 2 years ago. -Left femoral hemodialysis catheter present on admission. Further recommendations based on clinical course. Plan of care discussed with Dr. Turner. Result Diagram: 10/28/18 0546 10/28/18 0546 Results 24hrs Laboratory Tests Test 10/28/18 05:46 White Blood Count 8.4 Red Blood Count 3.41 L Hemoglobin 10.5 L Hematocrit 32.5 L Mean Corpuscular Volume 95.3 Mean Corpuscular Hemoglobin 30.8 Mean Corpuscular Hemoglobin Concent 32.3 Red Cell Distribution Width 17.3 H Platelet Count 275 # Mean Platelet Volume 10.9 H Immature Granulocytes % 0.600 H Neutrophils % 65.4 Lymphocytes % 23.9 Monocytes % 6.3 Eosinophils % 3.2 Basophils % 0.6 Nucleated Red Blood Cells % 0.0 Immature Granulocytes # 0.050 H Neutrophils # 5.5 Lymphocytes # 2.0 Monocytes # 0.5 Eosinophils # 0.3 Basophils # 0.1 Nucleated Red Blood Cells # 0.0 Sodium Level 140 Potassium Level 5.0 Chloride Level 98 Carbon Dioxide Level 26 Anion Gap 16 H Blood Urea Nitrogen 38 #H Creatinine 7.16 #H Est Glomerular Filtrat Rate mL/min 7 L Glucose Level 74 Calcium Level 7.5 L Subjective 24 Hr Interval Summary Free Text/Dictation HD now- tolerating well Eyes: no complaints ENT: no complaints Respiratory: no complaints Cardiovascular: no complaints Gastrointestinal: no complaints Genitourinary: no complaints Musculoskeletal: other (generelized body pain) Skin: no complaints Neurologic: no complaints Endocrine: no complaints Lymphatic: no complaints Psychological: nl mood/affect Immunologic: no complaints Exam/Review of Systems Exam Vitals Vital Signs Date Temp Pulse Resp B/P (MAP) Pulse Ox O2 O2 Flow FiO2 Time Delivery Rate 10/28/18 98.1 88 18 127/88 96 11:59 (101) 10/28/18 Room Air 11:36 Intake and Output 10/27/18 10/27/18 10/28/18 1515:00 23:00 07:00 IntakeIntake Total 600 ml 240 ml 500 ml BalanceBalance 600 ml 240 ml 500 ml Constitutional: alert, oriented, well developed Psych: nl mood/affect Head: normocephalic Eyes: nl lids, nl sclera, PERRL ENMT: nl external ears & nose Neck: non-tender Respiratory: clear to auscultation Cardiovascular: nl pulses, other (s1s2) Gastrointestinal: soft, non-tender Extremities: normal pulses 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: nl mental status, nl speech Skin: nl turgor Results Results 24hrs Laboratory Tests Test 10/28/18 05:46 White Blood Count 8.4 Red Blood Count 3.41 L Hemoglobin 10.5 L Hematocrit 32.5 L Mean Corpuscular Volume 95.3 Mean Corpuscular Hemoglobin 30.8 Mean Corpuscular Hemoglobin Concent 32.3 Red Cell Distribution Width 17.3 H Platelet Count 275 # Mean Platelet Volume 10.9 H Immature Granulocytes % 0.600 H Neutrophils % 65.4 Lymphocytes % 23.9 Monocytes % 6.3 Eosinophils % 3.2 Basophils % 0.6 Nucleated Red Blood Cells % 0.0 Immature Granulocytes # 0.050 H Neutrophils # 5.5 Lymphocytes # 2.0 Monocytes # 0.5 Eosinophils # 0.3 Basophils # 0.1 Nucleated Red Blood Cells # 0.0 Sodium Level 140 Potassium Level 5.0 Chloride Level 98 Carbon Dioxide Level 26 Anion Gap 16 H Blood Urea Nitrogen 38 #H Creatinine 7.16 #H Est Glomerular Filtrat Rate mL/min 7 L Glucose Level 74 Calcium Level 7.5 L Medications Medication Current Medications Albumin Human 100 ml @ 100 mls/hr WITH DIALYSIS PRN IV SBP <90 DURING DIALYSIS Last administered on 10/24/18at 21:00; Admin Dose 100 MLS/HR; Start 10/24/18 at 18:00 Heparin Sodium (Porcine) (Heparin (1000 Units/ml)) 5,200 unit AFTER DIALYSIS CATHETER Last administered on 10/25/18 00:49; Admin Dose 5,200 UNIT; Start 10/24/18 at 22:30 Sodium Chloride 250 ml @ 250 mls/hr Q1H PRN IV tachycardia Last administered on 10/25/18 02:24; Admin Dose 250 MLS/HR; Start 10/25/18 at 01:00 Diphenhydramine HCl (Benadryl) 25 mg Q6H PRN IV ALLERGIC REACTION Last administered on 10/28/18 12:13; Admin Dose 25 MG; Start 10/25/18 at 01:00 Acetaminophen (Tylenol Tab) 650 mg Q4 PRN PO FEVER Last administered on 10/26/18 14:54; Admin Dose 650 MG; Start 10/25/18 at 01:00 Sevelamer Carbonate (Renvela) 800 mg WITH MEALS PO Last administered on 10/28/18 12:13; Admin Dose 800 MG; Start 10/25/18 at 07:35 Midodrine (Proamatine) 5 mg TID@09,13,17 PO Last administered on 10/28/18 09:03; Admin Dose 5 MG; Start 10/26/18 at 09:00 Lidocaine (Xylocaine 1% (Mdv) 20 ml) 1 ml WITH DIALYSIS PRN INJ PRIOR TO CANULLATION/HD; Start 10/26/18 at 12:30 Ondansetron HCl (Zofran Inj) 4 mg Q4H PRN IV NAUSEA AND/OR VOMITING Last administered on 10/28/18 03:37; Admin Dose 4 MG; Start 10/26/18 at 15:30 Morphine Sulfate (morphine) 2 mg Q4H PRN IV SEVERE PAIN LEVEL 7-10 Last administered on 10/28/18 09:03; Admin Dose 2 MG; Start 10/26/18 at 15:30 Cefazolin Sodium 50 ml @ 100 mls/hr Q24H IVPB Last administered on 10/27/18 16:52; Admin Dose 100 MLS/HR; Start 10/27/18 at 17:00 Epoetin Maxwell-epbx (Retacrit (Esrd)) 10,000 unit MoWeFr@1700 CO ; Start 10/28/18 at 17:00 EDILMA CASIANO Oct 28, 2018 12:39
[2018-10-28] MEDS: HEPARIN 1000 UNITS/ML 10 ML INJ CATHETER SCH (14:30)
[2018-10-28] MEDS: CEFAZOLIN 1 GM/50 ML (PMX) 50 ML IVPB SCH (17:00)
[2018-10-28] MEDS: EPOETIN ALFA-EPBX (ESRD) 10,000 UNIT/ML VIAL SC SCH (18:13)
[2018-10-29] MEDS: DIPHENHYDRAMINE 50 MG INJ IV PRN ×4 (00:45→18:42)
[2018-10-29 03:28] VITALS: BP 109/61; PULSE 65; RESP 18
[2018-10-29] MEDS: morphine 2 MG INJ IV PRN ×4 (06:28→18:19)
[2018-10-29 07:16] VITALS: BP 100/60; PULSE 73; RESP 18
[2018-10-29] MEDS: SEVELAMER CARBONATE 800 MG TABLET PO SCH ×3 (08:48→16:57)
[2018-10-29] MEDS: MIDODRINE 5 MG TAB PO SCH ×3 (08:48→16:51)
[2018-10-29 11:02] VITALS: BP 110/55; PULSE 89; RESP 18
--- NOTE | 2018-10-29 11:20 | CONS ---
Assessment/Plan Assessment/Plan Assessment/Plan (Daily) 1. Septic shock on levophed 2. ESRD on HD MWF schedule , left femoral permacath for HD access 3. Bacteremia with Blood cx growing staph aureus 4. H/o Leukemia currently on chemotherapy, last chem on 10/21/18 5. H/o Primary hyperparathyroidism, status post complete parathyroidectomy and partial left thyroid lobectomy 2 years ago. 6. H/o Anemia of ESRD 7, Difficult vascular Access Plan: levophed for septic shock , staph aureus bacteremia - IV abx vancomycin , cefepime and IV zyvox- ID following, pt is very difficult vascular access- only access she had is left groin permacath s/p HD yesterday - 3 L removed , pt regular schedule for HD is MWF Continue other home medications will follow up Consultation Date/Type/Reason Admit Date/Time Oct 25, 2018 at 04:13 Initial Consult Date Type of Consult NEPHROLOGY Requesting Provider: LUANNE WALTER MD Date/Time of Note DATE: 10/29/18 TIME: 11:20 Exam/Review of Systems Exam Vitals Vital Signs Date Temp Pulse Resp B/P (MAP) Pulse Ox O2 O2 Flow FiO2 Time Delivery Rate 10/29/18 97.7 89 18 110/55 97 11:02 (73) 10/28/18 Room Air 11:36 Intake and Output 10/28/18 10/28/18 10/29/18 1515:00 23:00 07:00 IntakeIntake Total 780 ml 240 ml 700 ml OutputOutput Total 3600 ml 3000 ml BalanceBalance -2820 ml -2760 ml 700 ml Exam Constitutional: alert, awake, no acute distress Respiratory: clear to auscultation Cardiovascular: regular rate and rhythm Gastrointestinal: soft, non-tender Musculoskeletal: nl extremities to inspection Extremities: normal pulses 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: nl mental status Additional Comments Left femoral hemodialysis catheter, left upper extremity AV fistula nonfunctional Results Result Diagram: 10/29/18 0618 10/29/18 0618 Results 24hrs Laboratory Tests Test 10/29/18 06:18 White Blood Count 8.6 Red Blood Count 3.40 L Hemoglobin 10.5 L Hematocrit 32.6 L Mean Corpuscular Volume 95.9 Mean Corpuscular Hemoglobin 30.9 Mean Corpuscular Hemoglobin Concent 32.2 Red Cell Distribution Width 17.2 H Platelet Count 264 Mean Platelet Volume 10.4 Immature Granulocytes % 0.400 Neutrophils % 68.9 Lymphocytes % 20.4 Monocytes % 7.0 Eosinophils % 2.8 Basophils % 0.5 Nucleated Red Blood Cells % 0.0 Immature Granulocytes # 0.030 Neutrophils # 5.9 Lymphocytes # 1.8 Monocytes # 0.6 Eosinophils # 0.2 Basophils # 0.0 Nucleated Red Blood Cells # 0.0 Sodium Level 142 Potassium Level 5.0 Chloride Level 103 Carbon Dioxide Level 27 Anion Gap 12 Blood Urea Nitrogen 23 #H Creatinine 5.35 H Est Glomerular Filtrat Rate mL/min 9 L Glucose Level 76 Calcium Level 7.6 L Medications Medication Current Medications Albumin Human 100 ml @ 100 mls/hr WITH DIALYSIS PRN IV SBP <90 DURING DIALYSIS Last administered on 10/24/18 21:00; Admin Dose 100 MLS/HR; Start 10/24/18 at 18:00 Heparin Sodium (Porcine) (Heparin (1000 Units/ml)) 5,200 unit AFTER DIALYSIS CATHETER Last administered on 10/28/18 14:30; Admin Dose 5,200 UNIT; Start 10/24/18 at 22:30 Sodium Chloride 250 ml @ 250 mls/hr Q1H PRN IV tachycardia Last administered on 10/25/18 02:24; Admin Dose 250 MLS/HR; Start 10/25/18 at 01:00 Diphenhydramine HCl (Benadryl) 25 mg Q6H PRN IV ALLERGIC REACTION Last administered on 10/29/18 06:26; Admin Dose 25 MG; Start 10/25/18 at 01:00 Acetaminophen (Tylenol Tab) 650 mg Q4 PRN PO FEVER Last administered on 10/26/18 14:54; Admin Dose 650 MG; Start 10/25/18 at 01:00 Sevelamer Carbonate (Renvela) 800 mg WITH MEALS PO Last administered on 10/29/18 08:48; Admin Dose 800 MG; Start 10/25/18 at 07:35 Midodrine (Proamatine) 5 mg TID@09,13,17 PO Last administered on 10/29/18 08:48; Admin Dose 5 MG; Start 10/26/18 at 09:00 Lidocaine (Xylocaine 1% (Mdv) 20 ml) 1 ml WITH DIALYSIS PRN INJ PRIOR TO CANULLATION/HD; Start 10/26/18 at 12:30 Ondansetron HCl (Zofran Inj) 4 mg Q4H PRN IV NAUSEA AND/OR VOMITING Last administered on 10/28/18at 03:37; Admin Dose 4 MG; Start 10/26/18 at 15:30 Morphine Sulfate (morphine) 2 mg Q4H PRN IV SEVERE PAIN LEVEL 7-10 Last administered on 10/29/18 10:31; Admin Dose 2 MG; Start 10/26/18 at 15:30 Cefazolin Sodium 50 ml @ 100 mls/hr Q24H IVPB Last administered on 10/27/18 16:52; Admin Dose 100 MLS/HR; Start 10/27/18 at 17:00 Epoetin Maxwell-epbx (Retacrit (Esrd)) 10,000 unit MoWeFr@1700 SC Last administered on 10/28/18 18:13; Admin Dose 10,000 UNIT; Start 10/28/18 at 17:00 HENRIQUE GRANADO MD Oct 29, 2018 11:20
[2018-10-29 15:14] VITALS: BP 104/64; PULSE 75; RESP 18
--- NOTE | 2018-10-29 15:33 | CONS ---
[facility] HCIS Consult Follow-up Patient Name: Maria Luisa Lakhani Unit Number: [id number] Date of : 1985 Patient Status: Admitted Inpatient Attending Doctor: Pawan Walter MD Edit: GINGER LEONE M.D. on 10/30/18 @ 11:21 Sulema: I discussed the management with [employer] Mello and agree Assessment/Plan Assessment/Plan Hospital Course (Demo Recall) # sepsis, heme/onc - sepsis due to bacteremia, recurrent - persistent bacteremia on 10/24, 10/25, and 10/26 due to MSSA, recurrent; repeat blood cultures on 10/28 shows NGTD - h/o transthoracic echo on 07/19/2018, no e/o endocarditis - s/p removal of permacath on R chest wall on 07/14/2018 - s/p R femoral HD justin catheter placement 07/14/2018, replaced by HD permacath 07/19/2018 - pain/increased sensitivity of R groin after replacement of the Perez with permacath. 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 Last used for HD in 04/2018. 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 The culture of the tip of the removed catheter, blood cultures and swab of the catheter site were negative. Pt completed an empiric course of renally dosed pip/tazo (06/13/2018-06/18/2018) - h/o placement of a permacath on R chest wall on 06/23/2018 - h/o creation of AVF in LUE in 2016 - h/o 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 Pt took renally dosed valACV (07/15/2018-07/17/2018) - adverse reaction to vancomycin (pruritus) - adverse reaction to linezolid (thrombocytopenia). Linezolid was discontinued (06/12/2018-06/17/2018) Recommendations: - Continue renally adjusted Cefazolin (10/27/2018-) - Follow up repeat blood cultures from 10/28/2018 (NGTD) - Follow up MRI with contrast of lumbar spine to r/o discitis - We recommend repeat 2D echocardiogram to r/o endocarditis - In light of recurrent bacteremias and previous hx of thrombosed L brachiocephalic AV fistula will consider a more prolonged course of IV abx - Will send wound culture if puss is seen at HD catheter site - hygiene emphasized - consider vascular re-evaluation for possible fistula sites or alternative HD cath site Management d/w patient, [employer] Festus, RN Heladio, and with Dr. Leone. Consultation Date/Type/Reason Admit Date/Time Oct 25, 2018 at 04:13 Initial Consult Date 10/25/18 Type of Consult Infectious Disease Requesting Provider: PAWAN WALTER MD Date/Time of Note DATE: 10/29/18 TIME: 15:33 24 HR Interval Summary Free Text/Dictation Blood cultures from 10/28 show no growth in 1 day. MRI LS was done with results pending. Reports severe low back pain rating 10/10 after MRI was done. Pt was given pain med, and now low back pain is now 3/10. Pt states when HD catheter dressing was changed yesterday, she noticed "a little redness" and "puss". Exam/Review of Systems Exam Vitals Vital Signs Date Temp Pulse Resp B/P (MAP) Pulse Ox O2 O2 Flow FiO2 Time Delivery Rate 10/29/18 98.1 75 18 104/64 98 15:14 (77) 10/28/18 Room Air 11:36 Intake and Output 10/28/18 10/28/18 10/29/18 1414:59 22:59 06:59 IntakeIntake Total 780 ml 240 ml 700 ml OutputOutput Total 3600 ml 3000 ml BalanceBalance -2820 ml -2760 ml 700 ml Exam Constitutional: alert, oriented, well developed, other (thin; watching something on her laptop) Psych: no complaints Head: normocephalic, atraumatic Eyes: nl conjunctiva, nl lids, nl sclera ENMT: nl external ears & nose, nl lips & teeth, nl nasal mucosa & septum, mucosa pink and moist (no thrush) Neck: supple Respiratory: clear to auscultation, normal air movement, other (on room air); No wheezing Cardiovascular: regular rate and rhythm, nl pulses, other (RUE midline c/d/i) Gastrointestinal: soft, non-tender Genitourinary - Female: other (L groin HD catheter appears c/d/i) Musculoskeletal: nl extremities to inspection, other (+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) Extremities: normal pulses, other (LUE old AVF) 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: nl mental status, nl speech, nl strength Skin: nl turgor, other (several scattered tattoos); No rash or lesions Results Result Diagram: 10/29/1818 10/29/1818 Results 24hrs Laboratory Tests Test 10/29/18 06:18 White Blood Count 8.6 Red Blood Count 3.40 L Hemoglobin 10.5 L Hematocrit 32.6 L Mean Corpuscular Volume 95.9 Mean Corpuscular Hemoglobin 30.9 Mean Corpuscular Hemoglobin Concent 32.2 Red Cell Distribution Width 17.2 H Platelet Count 264 Mean Platelet Volume 10.4 Immature Granulocytes % 0.400 Neutrophils % 68.9 Lymphocytes % 20.4 Monocytes % 7.0 Eosinophils % 2.8 Basophils % 0.5 Nucleated Red Blood Cells % 0.0 Immature Granulocytes # 0.030 Neutrophils # 5.9 Lymphocytes # 1.8 Monocytes # 0.6 Eosinophils # 0.2 Basophils # 0.0 Nucleated Red Blood Cells # 0.0 Sodium Level 142 Potassium Level 5.0 Chloride Level 103 Carbon Dioxide Level 27 Anion Gap 12 Blood Urea Nitrogen 23 #H Creatinine 5.35 H Est Glomerular Filtrat Rate mL/min 9 L Glucose Level 76 Calcium Level 7.6 L Medications Medication Current Medications Albumin Human 100 ml @ 100 mls/hr WITH DIALYSIS PRN IV SBP <90 DURING DIALYSIS Last administered on 10/24/18 21:00; Admin Dose 100 MLS/HR; Start 10/24/18 at 18:00 Heparin Sodium (Porcine) (Heparin (1000 Units/ml)) 5,200 unit AFTER DIALYSIS CATHETER Last administered on 10/28/18 14:30; Admin Dose 5,200 UNIT; Start 10/24/18 at 22:30 Sodium Chloride 250 ml @ 250 mls/hr Q1H PRN IV tachycardia Last administered on 10/25/18 02:24; Admin Dose 250 MLS/HR; Start 10/25/18 at 01:00 Diphenhydramine HCl (Benadryl) 25 mg Q6H PRN IV ALLERGIC REACTION Last administered on 10/29/18 12:23; Admin Dose 25 MG; Start 10/25/18 at 01:00 Acetaminophen (Tylenol Tab) 650 mg Q4 PRN PO FEVER Last administered on 10/26/18 14:54; Admin Dose 650 MG; Start 10/25/18 at 01:00 Sevelamer Carbonate (Renvela) 800 mg WITH MEALS PO Last administered on 11:47; Admin Dose 800 MG; Start 10/25/18 at 07:35 Midodrine (Proamatine) 5 mg TID@09,13,17 PO Last administered on 10/29/18 12:08; Admin Dose 5 MG; Start 10/26/18 at 09:00 Lidocaine (Xylocaine 1% (Mdv) 20 ml) 1 ml WITH DIALYSIS PRN INJ PRIOR TO CANULLATION/HD; Start 10/26/18 at 12:30 Ondansetron HCl (Zofran Inj) 4 mg Q4H PRN IV NAUSEA AND/OR VOMITING Last administered on 10/28/18 03:37; Admin Dose 4 MG; Start 10/26/18 at 15:30 Morphine Sulfate (morphine) 2 mg Q4H PRN IV SEVERE PAIN LEVEL 7-10 Last administered on 10/29/18 14:32; Admin Dose 2 MG; Start 10/26/18 at 15:30 Cefazolin Sodium 50 ml @ 100 mls/hr Q24H IVPB Last administered on 10/27/18 16:52; Admin Dose 100 MLS/HR; Start 10/27/18 at 17:00 Epoetin Maxwell-epbx (Retacrit (Esrd)) 10,000 unit MoWeFr@1700 SC Last administered on 10/28/18 18:13; Admin Dose 10,000 UNIT; Start 10/28/18 at 17:00 EDIE BUENO NP Oct 29, 2018 15:33
--- NOTE | 2018-10-29 15:52 | PN ---
Date/Time of Note Date/Time of Note DATE: 10/29/18 TIME: 15:52 Assessment/Plan VTE Prophylaxis Risk score (from Ns)>0 risk: 5 SCD applied (from [facility] [place]): Yes SCD contraindicated: other Pharmacological prophylaxis: other Pharm contraindication: other Lines/Catheters [facility]ter Type [facility]from [facility] Mid Line Central line still needed: Yes Urinary Cath still in place: No Assessment/Plan Assessment/Plan -Sepsis with DIMITRI bacteremia with fevers, leukocytosis, and hypotension. Continue antibiotics per ID. Dr Herrera is following in ID consultation. -Hemodialysis dependent end-stage renal disease, continue dialysis per neph rology. Dr. Beltran is following in nephrology consultation. -Leukemia, patient is undergoing chemotherapy last chemo was on Wednesday10/11/18. -Anemia multifactorial chronic disease and recent chemo, status post blood transfusion, continue to monitor H&H. -Primary hyperparathyroidism, status post complete parathyroidectomy and partial left thyroid lobectomy 2 years ago. -Left femoral hemodialysis catheter present on admission. Further recommendations based on clinical course. Plan of care discussed with Dr. Turner. Result Diagram: 10/29/18 0618 10/29/18 0618 Results 24hrs Laboratory Tests Test 10/29/18 06:18 White Blood Count 8.6 Red Blood Count 3.40 L Hemoglobin 10.5 L Hematocrit 32.6 L Mean Corpuscular Volume 95.9 Mean Corpuscular Hemoglobin 30.9 Mean Corpuscular Hemoglobin Concent 32.2 Red Cell Distribution Width 17.2 H Platelet Count 264 Mean Platelet Volume 10.4 Immature Granulocytes % 0.400 Neutrophils % 68.9 Lymphocytes % 20.4 Monocytes % 7.0 Eosinophils % 2.8 Basophils % 0.5 Nucleated Red Blood Cells % 0.0 Immature Granulocytes # 0.030 Neutrophils # 5.9 Lymphocytes # 1.8 Monocytes # 0.6 Eosinophils # 0.2 Basophils # 0.0 Nucleated Red Blood Cells # 0.0 Sodium Level 142 Potassium Level 5.0 Chloride Level 103 Carbon Dioxide Level 27 Anion Gap 12 Blood Urea Nitrogen 23 #H Creatinine 5.35 H Est Glomerular Filtrat Rate mL/min 9 L Glucose Level 76 Calcium Level 7.6 L Subjective 24 Hr Interval Summary Free Text/Dictation 2d Echo ordered r/o source of infection Eyes: no complaints ENT: no complaints Respiratory: no complaints Cardiovascular: no complaints Gastrointestinal: no complaints Musculoskeletal: other (generelized body pain) Skin: no complaints Neurologic: no complaints Endocrine: no complaints Lymphatic: no complaints Psychological: nl mood/affect Immunologic: no complaints Exam/Review of Systems Exam Vitals Vital Signs Date Temp Pulse Resp B/P (MAP) Pulse Ox O2 O2 Flow FiO2 Time Delivery Rate 10/29/18 98.1 75 18 104/64 98 15:14 (77) 10/28/18 Room Air 11:36 Intake and Output 10/28/18 10/28/18 10/29/18 1515:00 23:00 07:00 IntakeIntake Total 780 ml 240 ml 700 ml OutputOutput Total 3600 ml 3000 ml BalanceBalance -2820 ml -2760 ml 700 ml Constitutional: alert, well developed Psych: nl mood/affect Respiratory: clear to auscultation Cardiovascular: nl pulses, other (s1s2) Musculoskeletal: nl extremities to inspection Results Results 24hrs Laboratory Tests Test 10/29/18 06:18 White Blood Count 8.6 Red Blood Count 3.40 L Hemoglobin 10.5 L Hematocrit 32.6 L Mean Corpuscular Volume 95.9 Mean Corpuscular Hemoglobin 30.9 Mean Corpuscular Hemoglobin Concent 32.2 Red Cell Distribution Width 17.2 H Platelet Count 264 Mean Platelet Volume 10.4 Immature Granulocytes % 0.400 Neutrophils % 68.9 Lymphocytes % 20.4 Monocytes % 7.0 Eosinophils % 2.8 Basophils % 0.5 Nucleated Red Blood Cells % 0.0 Immature Granulocytes # 0.030 Neutrophils # 5.9 Lymphocytes # 1.8 Monocytes # 0.6 Eosinophils # 0.2 Basophils # 0.0 Nucleated Red Blood Cells # 0.0 Sodium Level 142 Potassium Level 5.0 Chloride Level 103 Carbon Dioxide Level 27 Anion Gap 12 Blood Urea Nitrogen 23 #H Creatinine 5.35 H Est Glomerular Filtrat Rate mL/min 9 L Glucose Level 76 Calcium Level 7.6 L Medications Medication Current Medications Albumin Human 100 ml @ 100 mls/hr WITH DIALYSIS PRN IV SBP <90 DURING DIALYSIS Last administered on 10/24/18at 21:00; Admin Dose 100 MLS/HR; Start 10/24/18 at 18:00 Heparin Sodium (Porcine) (Heparin (1000 Units/ml)) 5,200 unit AFTER DIALYSIS CATHETER Last administered on 10/28/18at 14:30; Admin Dose 5,200 UNIT; Start 10/24/18 at 22:30 Sodium Chloride 250 ml @ 250 mls/hr Q1H PRN IV tachycardia Last administered on 10/25/18 02:24; Admin Dose 250 MLS/HR; Start 10/25/18 at 01:00 Diphenhydramine HCl (Benadryl) 25 mg Q6H PRN IV ALLERGIC REACTION Last administered on 10/29/18 12:23; Admin Dose 25 MG; Start 10/25/18 at 01:00 Acetaminophen (Tylenol Tab) 650 mg Q4 PRN PO FEVER Last administered on 10/26/18 14:54; Admin Dose 650 MG; Start 10/25/18 at 01:00 Sevelamer Carbonate (Renvela) 800 mg WITH MEALS PO Last administered on 10/29/18 11:47; Admin Dose 800 MG; Start 10/25/18 at 07:35 Midodrine (Proamatine) 5 mg TID@09,13,17 PO Last administered on 10/29/18 12:08; Admin Dose 5 MG; Start 10/26/18 at 09:00 Lidocaine (Xylocaine 1% (Mdv) 20 ml) 1 ml WITH DIALYSIS PRN INJ PRIOR TO CANULLATION/HD; Start 10/26/18 at 12:30 Ondansetron HCl (Zofran Inj) 4 mg Q4H PRN IV NAUSEA AND/OR VOMITING Last administered on 10/28/18 03:37; Admin Dose 4 MG; Start 10/26/18 at 15:30 Morphine Sulfate (morphine) 2 mg Q4H PRN IV SEVERE PAIN LEVEL 7-10 Last administered on 10/29/18 14:32; Admin Dose 2 MG; Start 10/26/18 at 15:30 Cefazolin Sodium 50 ml @ 100 mls/hr Q24H IVPB Last administered on 10/27/18 16:52; Admin Dose 100 MLS/HR; Start 10/27/18 at 17:00 Epoetin Maxwell-epbx (Retacrit (Esrd)) 10,000 unit MoWeFr@1700 SC Last adminis tered on 10/28/18 18:13; Admin Dose 10,000 UNIT; Start 10/28/18 at 17:00 EDILMA CASIANO Oct 29, 2018 15:52
[2018-10-29] MEDS: CEFAZOLIN 1 GM/50 ML (PMX) 50 ML IVPB SCH (16:51)
[2018-10-29] MEDS: ACETAMINOPHEN 325 MG TAB PO PRN (18:43)
[2018-10-29 19:53] VITALS: BP 113/75; PULSE 70; RESP 17
[2018-10-29 23:54] VITALS: BP 101/72; PULSE 60; RESP 17
[2018-10-30] MEDS: DIPHENHYDRAMINE 50 MG INJ IV PRN ×4 (00:33→18:39)
[2018-10-30] MEDS: morphine 2 MG INJ IV PRN ×5 (00:34→21:42)
[2018-10-30 04:03] VITALS: BP 117/77; PULSE 73; RESP 17
[2018-10-30 07:39] VITALS: BP 111/72; PULSE 67; RESP 16
[2018-10-30] MEDS: SEVELAMER CARBONATE 800 MG TABLET PO SCH ×3 (08:32→17:18)
[2018-10-30] MEDS: MIDODRINE 5 MG TAB PO SCH ×3 (08:33→17:17)
--- NOTE | 2018-10-30 11:10 | CONS ---
Assessment/Plan Assessment/Plan Assessment/Plan (Daily) 1. Septic shock s/p Levophed 2. ESRD on HD MWF schedule , left femoral permacath for HD access 3. Bacteremia with Blood cx growing staph aureus 4. H/o Leukemia currently on chemotherapy, last chem on 10/21/18 5. H/o Primary hyperparathyroidism, status post complete parathyroidectomy and partial left thyroid lobectomy 2 years ago. 6. H/o Anemia of ESRD 7, Difficult vascular Access Plan: HD ordered for Wednesday, now BP stable -, pt regular schedule for HD is MWF staph aureus bacteremia - IV abx vancomycin , cefepime and IV zyvox- ID following, pt is very difficult vascular access- only access she had is left groin permacath Continue other home medications will follow up Consultation Date/Type/Reason Admit Date/Time Oct 25, 2018 at 04:13 Initial Consult Date Type of Consult NEPHROLOGY Requesting Provider: LUANNE WALTER MD Date/Time of Note DATE: 10/30/18 TIME: 11:10 Exam/Review of Systems Exam Vitals Vital Signs Date Temp Pulse Resp B/P (MAP) Pulse Ox O2 O2 Flow FiO2 Time Delivery Rate 10/30/18 97.9 67 16 111/72 100 07:39 (85) 10/28/18 Room Air 11:36 Intake and Output 10/29/18 10/29/18 10/30/18 1515:00 23:00 07:00 IntakeIntake Total 240 ml 155 ml BalanceBalance 240 ml 155 ml Exam Constitutional: alert, awake, no acute distress Respiratory: clear to auscultation Cardiovascular: regular rate and rhythm Gastrointestinal: soft, non-tender Musculoskeletal: nl extremities to inspection Extremities: normal pulses 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: nl mental status Additional Comments Left femoral hemodialysis catheter, left upper extremity AV fistula nonfunctional Results Result Diagram: 10/30/18 0552 10/30/18 0552 Results 24hrs Laboratory Tests Test 10/30/18 05:52 White Blood Count 7.4 Red Blood Count 3.10 L Hemoglobin 9.6 L Hematocrit 30.3 L Mean Corpuscular Volume 97.7 Mean Corpuscular Hemoglobin 31.0 Mean Corpuscular Hemoglobin Concent 31.7 L Red Cell Distribution Width 16.7 H Platelet Count 237 Mean Platelet Volume 10.4 Immature Granulocytes % 0.400 Neutrophils % 68.5 Lymphocytes % 20.3 Monocytes % 6.7 Eosinophils % 3.4 Basophils % 0.7 Nucleated Red Blood Cells % 0.0 Immature Granulocytes # 0.030 Neutrophils # 5.1 Lymphocytes # 1.5 Monocytes # 0.5 Eosinophils # 0.3 Basophils # 0.1 Nucleated Red Blood Cells # 0.0 Sodium Level 144 Potassium Level 5.1 Chloride Level 105 Carbon Dioxide Level 25 Anion Gap 14 H Blood Urea Nitrogen 35 #H Creatinine 7.71 #H Est Glomerular Filtrat Rate mL/min 6 L Glucose Level 73 Calcium Level 7.7 L Serum HCG, Qualitative NEGATIVE Medications Medication Current Medications Albumin Human 100 ml @ 100 mls/hr WITH DIALYSIS PRN IV SBP <90 DURING DIALYSIS Last administered on 10/24/18at 21:00; Admin Dose 100 MLS/HR; Start 10/24/18 at 18:00 Heparin Sodium (Porcine) (Heparin (1000 Units/ml)) 5,200 unit AFTER DIALYSIS CATHETER Last administered on 10/28/18at 14:30; Admin Dose 5,200 UNIT; Start 10/24/18 at 22:30 Sodium Chloride 250 ml @ 250 mls/hr Q1H PRN IV tachycardia Last administered on 10/25/18at 02:24; Admin Dose 250 MLS/HR; Start 10/25/18 at 01:00 Diphenhydramine HCl (Benadryl) 25 mg Q6H PRN IV ALLERGIC REACTION Last administered on 10/30/18at 06:22; Admin Dose 25 MG; Start 10/25/18 at 01:00 Acetaminophen (Tylenol Tab) 650 mg Q4 PRN PO FEVER Last administered on 10/29/18 at 18:43; Admin Dose 650 MG; Start 10/25/18 at 01:00 Sevelamer Carbonate (Renvela) 800 mg WITH MEALS PO Last administered on 10/30/18at 08:32; Admin Dose 800 MG; Start 10/25/18 at 07:35 Midodrine (Proamatine) 5 mg TID@09,13,17 PO Last administered on 10/30/18at 08:33; Admin Dose 5 MG; Start 10/26/18 at 09:00 Lidocaine (Xylocaine 1% (Mdv) 20 ml) 1 ml WITH DIALYSIS PRN INJ PRIOR TO CANULLATION/HD; Start 10/26/18 at 12:30 Ondansetron HCl (Zofran Inj) 4 mg Q4H PRN IV NAUSEA AND/OR VOMITING Last administered on 10/28/18 03:37; Admin Dose 4 MG; Start 10/26/18 at 15:30 Morphine Sulfate (morphine) 2 mg Q4H PRN IV SEVERE PAIN LEVEL 7-10 Last administered on 10/30/18 06:22; Admin Dose 2 MG; Start 10/26/18 at 15:30 Cefazolin Sodium 50 ml @ 100 mls/hr Q24H IVPB Last administered on 10/29/18at 16:51; Admin Dose 100 MLS/HR; Start 10/27/18 at 17:00 Epoetin Maxwell-epbx (Retacrit (Esrd)) 10,000 unit MoWeFr@1700 SC Last administered on 10/28/18 18:13; Admin Dose 10,000 UNIT; Start 10/28/18 at 17:00 HENRIQUE GRANADO MD Oct 30, 2018 11:10
[2018-10-30 12:01] VITALS: BP 122/69; PULSE 66; RESP 17
--- NOTE | 2018-10-30 14:28 | CONS ---
[facility] HCIS Consult Follow-up Patient Name: Maria Luisa Lakhani Unit Number: [id number] Date of : 1985 Patient Status: Admitted Inpatient Attending Doctor: Pawan Walter MD Edit: GINGER LEONE M.D. on 10/31/18 @ 22:11 Sulema: I discussed the management with STEAM FLATTENER Mello and agree Assessment/Plan Assessment/Plan Hospital Course (Demo Recall) # sepsis, heme/onc - sepsis due to bacteremia, recurrent - persistent bacteremia on 10/24, 10/25, and 10/26 due to MSSA, recurrent; repeat blood cultures on 10/28 shows NGTD; 2D echo does not mention vegetation - h/o transthoracic echo on 07/19/2018, no e/o endocarditis - s/p removal of permacath on R chest wall on 07/14/2018 - s/p R femoral HD justin catheter placement 07/14/2018, replaced by HD permacath 07/19/2018 - pain/increased sensitivity of R groin after replacement of the Perez with permacath. 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 Last used for HD in 04/2018. 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 The culture of the tip of the removed catheter, blood cultures and swab of the catheter site were negative. Pt completed an empiric course of renally dosed pip/tazo (06/13/2018-06/18/2018) - h/o placement of a permacath on R chest wall on 06/23/2018 - h/o creation of AVF in LUE in 2016 - h/o 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 Pt took renally dosed valACV (07/15/2018-07/17/2018) - adverse reaction to vancomycin (pruritus) - adverse reaction to linezolid (thrombocytopenia). Linezolid was discontinued (06/12/2018-06/17/2018) - ?adverse reaction to cefazolin (severe abd pain/cramping, although pt tolerated a 14 day course of cefazolin in 06/2018) Recommendations: - DC Cefazolin (10/27/2018-) - Start oxacillin 2gm IV q6 hours (10/30/2018-) - Follow up repeat blood cultures from 10/28/2018 (NGTD) - In light of recurrent bacteremias and previous hx of thrombosed L brachiocephalic AV fistula will consider a more prolonged course of IV abx - Will send wound culture if puss is seen at HD catheter site - hygiene emphasized - consider vascular re-evaluation for possible fistula sites or alternative HD cath site Management d/w patient, STEAM FLATTENER Festus, RN Heladio, and with Dr. Leone. Consultation Date/Type/Reason Admit Date/Time Oct 25, 2018 at 04:13 Initial Consult Date 10/25/18 Type of Consult Infectious Disease Requesting Provider: PAWAN WALTER MD Date/Time of Note DATE: 10/30/18 TIME: 14:26 24 HR Interval Summary Free Text/Dictation Pt had severe abdominal pain and cramping yesterday when getting IV cefazolin and now patient does not want to take cefazolin (even though she tolerated 14 days of cefazolin during her previous hospitalization in June 2018). KUB was unremarkable. C/o severe generalized "bone" pain last night. Currently rates pain 4/10. Reports TTP at HD catheter site. Exam/Review of Systems Exam Vitals Vital Signs Date Temp Pulse Resp B/P (MAP) Pulse Ox O2 O2 Flow FiO2 Time Delivery Rate 10/30/18 97.9 66 17 122/69 98 12:01 (86) 10/28/18 Room Air 11:36 Intake and Output 10/29/18 10/29/18 10/30/18 1515:00 23:00 07:00 IntakeIntake Total 240 ml 155 ml BalanceBalance 240 ml 155 ml Exam Constitutional: alert, oriented, well developed, other (thin; multiple family members at bedside) Psych: no complaints Head: normocephalic, atraumatic Eyes: nl conjunctiva, nl lids, nl sclera ENMT: nl external ears & nose, nl lips & teeth, nl nasal mucosa & septum, mu cosa pink and moist (no thrush) Neck: supple Respiratory: clear to auscultation, normal air movement, other (on room air); No wheezing Cardiovascular: regular rate and rhythm (soft systolic murmur), nl pulses, other (RUE midline c/d/i) Gastrointestinal: soft, non-tender Genitourinary - Female: other (L groin HD catheter appears c/d/i with mild TTP at insertion site) Musculoskeletal: nl extremities to inspection Extremities: normal pulses, other (LUE old AVF) 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: nl mental status, nl speech, nl strength Skin: nl turgor, other (several scattered tattoos); No rash or lesions Results Result Diagram: 10/30/18 0552 10/30/18 0552 Results 24hrs Laboratory Tests Test 10/30/18 05:52 White Blood Count 7.4 Red Blood Count 3.10 L Hemoglobin 9.6 L Hematocrit 30.3 L Mean Corpuscular Volume 97.7 Mean Corpuscular Hemoglobin 31.0 Mean Corpuscular Hemoglobin Concent 31.7 L Red Cell Distribution Width 16.7 H Platelet Count 237 Mean Platelet Volume 10.4 Immature Granulocytes % 0.400 Neutrophils % 68.5 Lymphocytes % 20.3 Monocytes % 6.7 Eosinophils % 3.4 Basophils % 0.7 Nucleated Red Blood Cells % 0.0 Immature Granulocytes # 0.030 Neutrophils # 5.1 Lymphocytes # 1.5 Monocytes # 0.5 Eosinophils # 0.3 Basophils # 0.1 Nucleated Red Blood Cells # 0.0 Sodium Level 144 Potassium Level 5.1 Chloride Level 105 Carbon Dioxide Level 25 Anion Gap 14 H Blood Urea Nitrogen 35 #H Creatinine 7.71 #H Est Glomerular Filtrat Rate mL/min 6 L Glucose Level 73 Calcium Level 7.7 L Serum HCG, Qualitative NEGATIVE Imaging Imaging KUB 10/30/2018: 1. Nonspecific bowel gas pattern without evidence of obstruction. 2. Left femoral dialysis catheter with tip at the right atrium. MRI Lumbar spine 10/29/2018: 1. No acute fractures, traumatic subluxations, osteomyelitis or diskitis. 2. No significant interval change from prior MRI. 3. Rather dizzy spine signal compatible with renal osteodystrophy 4. Bilateral atrophic kidneys with multiple renal cortical cysts 5. Multilevel broad-based bulges at the L1-2 through L5-S1 levels with mild central canal stenosis at L3-4 and L4-5 6. Mild subarticular recess stenosis as indicated above at the left L3-4 and bilateral L4-5 levels and correlate with respective radiculopathy. 7. Stable benign appearing right iliac wing cystic lesion measuring 3.2 cm AP by 1.5 cm in transverse dimension 2D echo 10/29/2018: Normal left ventricular systolic function. Normal left ventricular cavity size. Normal left ventricular wall thickness. Ejection fraction is visually estimated at 55-60 %. Tissue Doppler/Mitral Doppler indices are consistent with impaired relaxation (Stage I diastolic dysfunction). Normal appearance of the mitral valve. Mild mitral valve regurgitation. Normal appearance of the tricuspid valve. The estimated Peak RVSP is 33 mmHg. There is mild to moderate tricuspid regurgitation. Medications Medication Current Medications Albumin Human 100 ml @ 100 mls/hr WITH DIALYSIS PRN IV SBP <90 DURING DIALYSIS Last administered on 10/24/18at 21:00; Admin Dose 100 MLS/HR; Start 10/24/18 at 18:00 Heparin Sodium (Porcine) (Heparin (1000 Units/ml)) 5,200 unit AFTER DIALYSIS CATHETER Last administered on 10/28/18 14:30; Admin Dose 5,200 UNIT; Start 10/24/18 at 22:30 Sodium Chloride 250 ml @ 250 mls/hr Q1H PRN IV tachycardia Last administered on 10/25/18 02:24; Admin Dose 250 MLS/HR; Start 10/25/18 at 01:00 Diphenhydramine HCl (Benadryl) 25 mg Q6H PRN IV ALLERGIC REACTION Last administered on 10/30/18 12:38; Admin Dose 25 MG; Start 10/25/18 at 01:00 Acetaminophen (Tylenol Tab) 650 mg Q4 PRN PO FEVER Last administered on 10/29/18 18:43; Admin Dose 650 MG; Start 10/25/18 at 01:00 Sevelamer Carbonate (Renvela) 800 mg WITH MEALS PO Last administered on 10/30/18 11:55; Admin Dose 800 MG; Start 10/25/18 at 07:35 Midodrine (Proamatine) 5 mg TID@09,13,17 PO Last administered on 10/30/18 12:34; Admin Dose 5 MG; Start 10/26/18 at 09:00 Lidocaine (Xylocaine 1% (Mdv) 20 ml) 1 ml WITH DIALYSIS PRN INJ PRIOR TO CANULLATION/HD; Start 10/26/18 at 12:30 Ondansetron HCl (Zofran Inj) 4 mg Q4H PRN IV NAUSEA AND/OR VOMITING Last a dministered on 10/28/18 03:37; Admin Dose 4 MG; Start 10/26/18 at 15:30 Morphine Sulfate (morphine) 2 mg Q4H PRN IV SEVERE PAIN LEVEL 7-10 Last administered on 10/30/18 12:39; Admin Dose 2 MG; Start 10/26/18 at 15:30 Cefazolin Sodium 50 ml @ 100 mls/hr Q24H IVPB Last administered on 10/29/18 16:51; Admin Dose 100 MLS/HR; Start 10/27/18 at 17:00 Epoetin Maxwell-epbx (Retacrit (Esrd)) 10,000 unit MoWeFr@1700 SC Last administered on 10/28/18 18:13; Admin Dose 10,000 UNIT; Start 10/28/18 at 17:00 EDIE BUENO NP Oct 30, 2018 14:28
--- NOTE | 2018-10-30 14:33 | RADRPT ---
Echocardiogram Report Patient Name: DEEPTHI ACEVESPatient ID: [id number] : 1985 (33y 1m)Study Date: 10/30/2018 1:09:42 PM Gender: FAccession #: [id number] Tech: Val Felipe RDCS Location: [facility] Ref.Physician: EDILMA CASIANO Height(Cm): BSA: Weight(Kg): Quality: AdequateOrder Physician: EDILMA CASIANO Account #: Procedures: Echocardiographic Report: Transthoracic echocardiogram with complete 2D, M-Mode, and doppler examination. Indications: R/O INFECTION SOURCE. Measurements: 2D/M Mode Doppler Measurement Value Normal Range Measurement Value Normal Range LVIDd 2D 4.1 [ 3.8 - 5.2 ] cm AV Peak Adarsh 1.3 [ 100.0 - 170.0 ] cm/se c LVIDs 2D 2.7 [ 2.2 - 3.5 ] cm AV Peak PG 7.0 [ 2.0 - 9.0 ] mmHg LVPWd 2D 0.8 [ 0.6 - 0.9 ] cm LVOT Peak Adarsh 0.8 [ 70.0 - 110.0 ] cm/sec IVSd 2D 0.7 [ 0.6 - 0.9 ] cm LVOT Peak PG 3.0 [ 2.0 - 6.0 ] mmHg EDV 2D 75.5 [ 46.0 - 106.0 ] ml MV E Peak Adarsh 0.9 [ 60.0 - 130.0 ] cm/sec ESV 2D 27.8 [ 14.0 - 42.0 ] ml MV A Peak Adarsh 0.5 [ 100.0 - 120.0 ] cm/se c EF 2D 63.2 [ 54.0 - 74.0 ] percent MV E/A 1.8 [ 0.8 - 1.5 ] ratio LA Dimen 2D 2.8 [ 2.7 - 3.8 ] cm MV PHT 62.0 [ 20.0 - 100.0 ] msec MV Decel Time 211 [ 104 - 258 ] msec MV Decel Boyd 4 Lat E` Adarsh 0.1 [ 10.0 - 15.0 ] cm/sec Lateral E/E` 8.3 [ 1.0 - 2.0 ] ratio Med E` Adarsh 0.1 cm/sec MV E/A 1.8 [ 0.8 - 1.5 ] ratio MVA PHT 3.5 [ 2.0 - 4.0 ] cm2 TR Peak Adarsh 2.8 [ 100.0 - 280.0 ] cm/se c TR Peak PG 30.0 mmHg RVSP 30.0 [ 10.0 - 36.0 ] mmHg RA Pressure 3.0 mmHg Findings: Left Ventricle: Normal left ventricular systolic function. Normal left ventricular cavity size. Normal left ventricular wall thickness. Ejection fraction is visually estimated at 55-60 %. Tissue Doppler/Mitral Doppler indices are consistent with impaired relaxation (Stage I diastolic dysfunction). Right Ventricle: Normal right ventricular size. Normal right ventricular systolic function. Left Atrium: The left atrium is normal in size. Right Atrium: The right atrium is normal in size. Atrial Septum: Normal atrial septum. Ventricular septum: Normal/intact ventricular septum. Mitral Valve: Normal appearance of the mitral valve. Mild mitral valve regurgitation. Aortic Valve: No aortic regurgitation. Tricuspid Valve: Normal appearance of the tricuspid valve. The estimated Peak RVSP is 33 mmHg. There is mild to moderate tricuspid regurgitation. Pulmonic Valve: Normal pulmonic valve appearance. No evidence of pulmonic regurgitation. Pericardium: Normal pericardium with no significant pericardial effusion. Aorta: Normal aortic root. IVC: Normal size and normal respiratory collapse consistent with normal right atrial pressure. Conclusions: Normal left ventricular systolic function. Normal left ventricular cavity size. Normal left ventricular wall thickness. Ejection fraction is visually estimated at 55-60 %. Tissue Doppler/Mitral Doppler indices are consistent with impaired relaxation (Stage I diastolic dysfunction). ). Normal appearance of the mitral valve. Mild mitral valve regurgitation. n. Normal appearance of the tricuspid valve. The estimated Peak RVSP is 33 mmHg. There is mild to moderate tricuspid regurgitation. Electronically Signed By: Jaguar Arias 2018-10-30 14:33:32 PDT
[2018-10-30 15:58] VITALS: BP 118/64; PULSE 64; RESP 17
[2018-10-30] MEDS: OXACILLIN 2 GM in SOD CHLORIDE 0.9% 50 ML IVPB SCH ×2 (17:22→23:44)
[2018-10-30 19:16] VITALS: BP 147/89; PULSE 74; RESP 17
[2018-10-30] MEDS: ONDANSETRON 4 MG INJ IV PRN (23:04)
[2018-10-31] VITALS (19 sets, daily range): BP systolic 111–138; BP diastolic 68–98; PULSE 64–87; RESP 16–18
[2018-10-31] MEDS: DIPHENHYDRAMINE 50 MG INJ IV PRN ×4 (00:31→18:35)
[2018-10-31] MEDS: morphine 2 MG INJ IV PRN ×4 (04:03→21:58)
[2018-10-31] MEDS: OXACILLIN 2 GM in SOD CHLORIDE 0.9% 50 ML IVPB SCH ×3 (06:29→17:40)
[2018-10-31] MEDS: SEVELAMER CARBONATE 800 MG TABLET PO SCH ×3 (08:14→16:59)
[2018-10-31] MEDS: MIDODRINE 5 MG TAB PO SCH ×3 (08:14→16:37)
--- NOTE | 2018-10-31 10:20 | CONS ---
[facility] HCIS Consult Follow-up Patient Name: Maria Luisa Lakhani Unit Number: [id number] Date of : 1985 Patient Status: Admitted Inpatient Attending Doctor: Pawan Walter MD Edit: GINGER LEONE M.D. on 10/31/18 @ 22:10 Sulema: I discussed the management with YOKASTA Winslow and agree with above; Will order WBC tagged scan in an attempt to locate a source of her recurrent S. aureus bacteremia Assessment/Plan Assessment/Plan Hospital Course (Demo Recall) # sepsis, heme/onc - sepsis due to bacteremia, recurrent - persistent bacteremia on 10/24, 10/25, and 10/26 due to MSSA, recurrent; repeat blood cultures on 10/28 shows NGTD; 2D echo does not mention vegetation - h/o transthoracic echo on 07/19/2018, no e/o endocarditis - s/p removal of permacath on R chest wall on 07/14/2018 - s/p R femoral HD justin catheter placement 07/14/2018, replaced by HD permacath 07/19/2018 - pain/increased sensitivity of R groin after replacement of the Perez with permacath. 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 Last used for HD in 04/2018. 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 The culture of the tip of the removed catheter, blood cultures and swab of the catheter site were negative. Pt completed an empiric course of renally dosed pip/tazo (06/13/2018-06/18/2018) - h/o placement of a permacath on R chest wall on 06/23/2018 - h/o creation of AVF in E in 2016 - h/o 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 Her last cycle was in early 2018 - MRI of L spine did not show e/o spinal infection --S/p Cefazolin (10/27/2018-10/30/18) # GI/ - biliary cholic, N&E, intermittent: according to Pt, she had received authorization for elective cholecystectomy as outpatient - h/o MRCP in 07/2017: negative for cholelithiasis or cholecystitis - amenorrhea since AVF creation in 2016 # renal/endo - ESRD on HD - primary hyperparathyroidism - h/o subtotal parathyroidectomy of R superior and inferior glands and partial L inferior gland in 06/2016 - h/o complete parathyroidectomy and partial L thyroid lobectomy in 11/2016 - 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 Pt took renally dosed valACV (07/15/2018-07/17/2018) - adverse reaction to vancomycin (pruritus) - adverse reaction to linezolid (thrombocytopenia). Linezolid was discontinued (06/12/2018-06/17/2018) - ?adverse reaction to cefazolin (severe abd pain/cramping, although pt tolerated a 14 day course of cefazolin in 06/2018) Recommendations: - Continue oxacillin 2gm IV q6 hours (10/30/2018-) - Follow up repeat blood cultures from 10/28/2018 (NGTD) - In light of recurrent bacteremias and previous hx of thrombosed L brachiocephalic AV fistula will consider a more prolonged course of IV abx - Will send wound culture if puss is seen at HD catheter site - hygiene emphasized - consider vascular re-evaluation for possible fistula sites or alternative HD cath site Management d/w patient, and Dr. Leone. Consultation Date/Type/Reason Admit Date/Time Oct 25, 2018 at 04:13 Initial Consult Date 10/25/18 Requesting Provider: PAWAN WALTER MD Date/Time of Note DATE: 10/31/18 TIME: 10:18 24 HR Interval Summary Free Text/Dictation Has remained afebrile. WBC normal. Plan for HD today and collection of wound cx if purulent drainage present. Detailed Summary Eyes: no complaints ENT: no complaints Respiratory: no complaints Cardiovascular: no complaints Gastrointestinal: no complaints Genitourinary: no complaints Musculoskeletal: bone/joint pain, other (C/o "bone pain all over") Skin: other (HD cath site mild TTP) Neurologic: no complaints Endocrine: no complaints Psychological: no complaints, nl mood/affect Exam/Review of Systems Exam Vitals Vital Signs Date Temp Pulse Resp B/P (MAP) Pulse Ox O2 O2 Flow FiO2 Time Delivery Rate 10/31/18 97.9 69 16 117/68 97 07:11 (84) 10/28/18 Room Air 11:36 Intake and Output 10/30/18 10/30/18 10/31/18 1515:00 23:00 07:00 IntakeIntake Total 1100 ml 200 ml BalanceBalance 1100 ml 200 ml Constitutional: alert, oriented, well developed Psych: no complaints, nl mood/affect Head: normocephalic, atraumatic, other (alopecia) Eyes: nl conjunctiva, EOMI, PERRL ENMT: mucosa pink and moist Neck: supple Respiratory: clear to auscultation, normal air movement Cardiovascular: regular rate and rhythm Gastrointestinal: soft, non-tender, bowel sounds; No distended, No rebound or guarding Genitourinary - Female: other (LLQ HD cath site +mild TTP) Musculoskeletal: nl extremities to inspection, range of motion Extremities: normal pulses; No cyanosis, No clubbing, No edema 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: nl mental status, nl speech, nl strength Skin: other (LLQ HD cath site covered with dressing c/d/i no s/s infectionn noted) Results Result Diagram: 10/31/18 0550 10/31/18 0550 Results 24hrs Laboratory Tests Test 10/31/18 05:50 White Blood Count 8.4 Red Blood Count 3.23 L Hemoglobin 9.8 L Hematocrit 31.0 L Mean Corpuscular Volume 96.0 Mean Corpuscular Hemoglobin 30.3 Mean Corpuscular Hemoglobin Concent 31.6 L Red Cell Distribution Width 16.2 H Platelet Count 273 Mean Platelet Volume 10.4 Immature Granulocytes % 0.500 H Neutrophils % 68.8 Lymphocytes % 18.9 Monocytes % 6.8 Eosinophils % 4.3 Basophils % 0.7 Nucleated Red Blood Cells % 0.0 Immature Granulocytes # 0.040 H Neutrophils # 5.8 Lymphocytes # 1.6 Monocytes # 0.6 Eosinophils # 0.4 Basophils # 0.1 Nucleated Red Blood Cells # 0.0 Sodium Level 143 Potassium Level 5.3 H Chloride Level 104 Carbon Dioxide Level 24 Anion Gap 15 H Blood Urea Nitrogen 44 H Creatinine 9.40 H Est Glomerular Filtrat Rate mL/min 5 L Glucose Level 70 Calcium Level 7.9 L Imaging Imaging KUB 10/30/2018: 1. Nonspecific bowel gas pattern without evidence of obstruction. 2. Left femoral dialysis catheter with tip at the right atrium. MRI Lumbar spine 10/29/2018: 1. No acute fractures, traumatic subluxations, osteomyelitis or diskitis. 2. No significant interval change from prior MRI. 3. Rather dizzy spine signal compatible with renal osteodystrophy 4. Bilateral atrophic kidneys with multiple renal cortical cysts 5. Multilevel broad-based bulges at the L1-2 through L5-S1 levels with mild central canal stenosis at L3-4 and L4-5 6. Mild subarticular recess stenosis as indicated above at the left L3-4 and bilateral L4-5 levels and correlate with respective radiculopathy. 7. Stable benign appearing right iliac wing cystic lesion measuring 3.2 cm AP by 1.5 cm in transverse dimension 2D echo 10/29/2018: Normal left ventricular systolic function. Normal left ventricular cavity size. Normal left ventricular wall thickness. Ejection fraction is visually estimated at 55-60 %. Tissue Doppler/Mitral Doppler indices are consistent with impaired relaxation (Stage I diastolic dysfunction). Normal appearance of the mitral valve. Mild mitral valve regurgitation. Normal appearance of the tricuspid valve. The estimated Peak RVSP is 33 mmHg. There is mild to moderate tricuspid regurgitation. Medications Medication Current Medications Albumin Human 100 ml @ 100 mls/hr WITH DIALYSIS PRN IV SBP <90 DURING DIALYSIS Last administered on 10/24/18at 21:00; Admin Dose 100 MLS/HR; Start 10/24/18 at 18:00 Heparin Sodium (Porcine) (Heparin (1000 Units/ml)) 5,200 unit AFTER DIALYSIS CATHETER Last administered on 10/28/18 14:30; Admin Dose 5,200 UNIT; Start 10/24/18 at 22:30 Sodium Chloride 250 ml @ 250 mls/hr Q1H PRN IV tachycardia Last administered on 10/25/18 02:24; Admin Dose 250 MLS/HR; Start 10/25/18 at 01:00 Diphenhydramine HCl (Benadryl) 25 mg Q6H PRN IV ALLERGIC REACTION Last adm inistered on 10/31/18 06:29; Admin Dose 25 MG; Start 10/25/18 at 01:00 Acetaminophen (Tylenol Tab) 650 mg Q4 PRN PO FEVER Last administered on 10/29/18 18:43; Admin Dose 650 MG; Start 10/25/18 at 01:00 Sevelamer Carbonate (Renvela) 800 mg WITH MEALS PO Last administered on 10/31/18 08:14; Admin Dose 800 MG; Start 10/25/18 at 07:35 Midodrine (Proamatine) 5 mg TID@09,13,17 PO Last administered on 10/31/18 08:14; Admin Dose 5 MG; Start 10/26/18 at 09:00 Lidocaine (Xylocaine 1% (Mdv) 20 ml) 1 ml WITH DIALYSIS PRN INJ PRIOR TO CANULLATION/HD; Start 10/26/18 at 12:30 Ondansetron HCl (Zofran Inj) 4 mg Q4H PRN IV NAUSEA AND/OR VOMITING Last administered on 10/30/18 23:04; Admin Dose 4 MG; Start 10/26/18 at 15:30 Morphine Sulfate (morphine) 2 mg Q4H PRN IV SEVERE PAIN LEVEL 7-10 Last administered on 10/31/18 04:03; Admin Dose 2 MG; Start 10/26/18 at 15:30 Epoetin Maxwell-epbx (Retacrit (Esrd)) 10,000 unit MoWeFr@1700 SC Last administered on 10/28/18 18:13; Admin Dose 10,000 UNIT; Start 10/28/18 at 17:00 Oxacillin Sodium 2 gm/Sodium Chloride 50 ml @ 100 mls/hr Q6 IVPB Last administered on 10/31/18 06:29; Admin Dose 100 MLS/HR; Start 10/30/18 at 18:00 ADRIEN WINSLOW NP Oct 31, 2018 10:20
--- NOTE | 2018-10-31 12:07 | CONS ---
Assessment/Plan Assessment/Plan Assessment/Plan (Daily) 1. Septic shock s/p Levophed 2. ESRD on HD MWF schedule , left femoral permacath for HD access 3. Bacteremia with Blood cx growing staph aureus 4. H/o Leukemia currently on chemotherapy, last chem on 10/21/18 5. H/o Primary hyperparathyroidism, status post complete parathyroidectomy and partial left thyroid lobectomy 2 years ago. 6. H/o Anemia of ESRD 7, Difficult vascular Access Plan: s/p HD today 3.2 L removed, , now BP stable -, pt regular schedule for HD is MWF staph aureus bacteremia - IV abx vancomycin , cefepime and IV zyvox- ID following, pt is very difficult vascular access- only access she had is left groin permacath Continue other home medications will follow up Consultation Date/Type/Reason Admit Date/Time Oct 25, 2018 at 04:13 Initial Consult Date Type of Consult NEPHROLOGY Requesting Provider: LUANNE WALTER MD Date/Time of Note DATE: 10/31/18 TIME: 12:07 Exam/Review of Systems Exam Vitals Vital Signs Date Temp Pulse Resp B/P (MAP) Pulse Ox O2 O2 Flow FiO2 Time Delivery Rate 10/31/18 97.9 64 17 128/90 97 12:03 (103) 10/28/18 Room Air 11:36 Intake and Output 10/30/18 10/30/18 10/31/18 1414:59 22:59 06:59 IntakeIntake Total 1100 ml 200 ml BalanceBalance 1100 ml 200 ml Exam Constitutional: alert, awake, no acute distress Respiratory: clear to auscultation Cardiovascular: regular rate and rhythm Gastrointestinal: soft, non-tender Musculoskeletal: nl extremities to inspection Extremities: normal pulses 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: nl mental status Additional Comments Left femoral hemodialysis catheter, left upper extremity AV fistula nonfunct ional Results Result Diagram: 10/31/18 0550 10/31/18 0550 Results 24hrs Laboratory Tests Test 10/31/18 05:50 White Blood Count 8.4 Red Blood Count 3.23 L Hemoglobin 9.8 L Hematocrit 31.0 L Mean Corpuscular Volume 96.0 Mean Corpuscular Hemoglobin 30.3 Mean Corpuscular Hemoglobin Concent 31.6 L Red Cell Distribution Width 16.2 H Platelet Count 273 Mean Platelet Volume 10.4 Immature Granulocytes % 0.500 H Neutrophils % 68.8 Lymphocytes % 18.9 Monocytes % 6.8 Eosinophils % 4.3 Basophils % 0.7 Nucleated Red Blood Cells % 0.0 Immature Granulocytes # 0.040 H Neutrophils # 5.8 Lymphocytes # 1.6 Monocytes # 0.6 Eosinophils # 0.4 Basophils # 0.1 Nucleated Red Blood Cells # 0.0 Sodium Level 143 Potassium Level 5.3 H Chloride Level 104 Carbon Dioxide Level 24 Anion Gap 15 H Blood Urea Nitrogen 44 H Creatinine 9.40 H Est Glomerular Filtrat Rate mL/min 5 L Glucose Level 70 Calcium Level 7.9 L Medications Medication Current Medications Albumin Human 100 ml @ 100 mls/hr WITH DIALYSIS PRN IV SBP <90 DURING DIALYSIS Last administered on 10/24/18 21:00; Admin Dose 100 MLS/HR; Start 10/24/18 at 18:00 Heparin Sodium (Porcine) (Heparin (1000 Units/ml)) 5,200 unit AFTER DIALYSIS CATHETER Last administered on 10/28/18 14:30; Admin Dose 5,200 UNIT; Start 10/24/18 at 22:30 Sodium Chloride 250 ml @ 250 mls/hr Q1H PRN IV tachycardia Last administered on 10/25/18 02:24; Admin Dose 250 MLS/HR; Start 10/25/18 at 01:00 Diphenhydramine HCl (Benadryl) 25 mg Q6H PRN IV ALLERGIC REACTION Last administered on 10/31/18 06:29; Admin Dose 25 MG; Start 10/25/18 at 01:00 Acetaminophen (Tylenol Tab) 650 mg Q4 PRN PO FEVER Last administered on 10/29/18 18:43; Admin Dose 650 MG; Start 10/25/18 at 01:00 Sevelamer Carbonate (Renvela) 800 mg WITH MEALS PO Last administered on 10/31/18 08:14; Admin Dose 800 MG; Start 10/25/18 at 07:35 Midodrine (Proamatine) 5 mg TID@09,13,17 PO Last administered on 10/31/18 08:14; Admin Dose 5 MG; Start 10/26/18 at 09:00 Lidocaine (Xylocaine 1% (Mdv) 20 ml) 1 ml WITH DIALYSIS PRN INJ PRIOR TO CANULLATION/HD; Start 10/26/18 at 12:30 Ondansetron HCl (Zofran Inj) 4 mg Q4H PRN IV NAUSEA AND/OR VOMITING Last administered on 10/30/18 23:04; Admin Dose 4 MG; Start 10/26/18 at 15:30 Morphine Sulfate (morphine) 2 mg Q4H PRN IV SEVERE PAIN LEVEL 7-10 Last administered on 10/31/18 04:03; Admin Dose 2 MG; Start 10/26/18 at 15:30 Epoetin Maxwell-epbx (Retacrit (Esrd)) 10,000 unit MoWeFr@1700 SC Last administered on 10/28/18 18:13; Admin Dose 10,000 UNIT; Start 10/28/18 at 17:00 Oxacillin Sodium 2 gm/Sodium Chloride 50 ml @ 100 mls/hr Q6 IVPB Last administered on 10/31/18 06:29; Admin Dose 100 MLS/HR; Start 10/30/18 at 18:00 HENRIQUE GRANADO MD Oct 31, 2018 12:07
--- NOTE | 2018-10-31 14:42 | PN ---
Date/Time of Note Date/Time of Note DATE: 10/31/18 TIME: 14:37 Assessment/Plan VTE [place]axis [place] [facility] risk: 4 [place]CD applied [place] [facility] Yes Pharmacological prophylaxis: NA/contraindicated Pharm contraindication: thrombocytopenia Lines/Catheters [facility] Catheter [facility] (from [facility] Mid Line Central line still needed: Yes Urinary Cath still in place: No Assessment/Plan Hospital Course Patient is undergoing hemodialysis, denies fever, patient continues on oxacillin every 6 hours IV for DIMITRI bacteremia. Assessment/Plan -Sepsis with DIMITRI bacteremia with fevers, leukocytosis, and hypotension. Continue antibiotics per ID. Dr Herrera is following in ID consultation. -Hemodialysis dependent end-stage renal disease, continue dialysis per nephrology. Dr. Beltran is following in nephrology consultation. -Leukemia, patient is undergoing chemotherapy last chemo was on Wednesday10/11/18. -Anemia multifactorial chronic disease and recent chemo, status post blood transfusion, continue to monitor H&H. -Primary hyperparathyroidism, status post complete parathyroidectomy and partial left thyroid lobectomy 2 years ago. -Left femoral hemodialysis catheter present on admission. Further recommendations based on clinical course. Plan of care discussed with Dr. Turner. Result Diagram: 10/31/18 0550 10/31/18 0550 Results 24hrs Laboratory Tests Test 10/31/18 05:50 White Blood Count 8.4 Red Blood Count 3.23 L Hemoglobin 9.8 L Hematocrit 31.0 L Mean Corpuscular Volume 96.0 Mean Corpuscular Hemoglobin 30.3 Mean Corpuscular Hemoglobin Concent 31.6 L Red Cell Distribution Width 16.2 H Platelet Count 273 Mean Platelet Volume 10.4 Immature Granulocytes % 0.500 H Neutrophils % 68.8 Lymphocytes % 18.9 Monocytes % 6.8 Eosinophils % 4.3 Basophils % 0.7 Nucleated Red Blood Cells % 0.0 Immature Granulocytes # 0.040 H Neutrophils # 5.8 Lymphocytes # 1.6 Monocytes # 0.6 Eosinophils # 0.4 Basophils # 0.1 Nucleated Red Blood Cells # 0.0 Sodium Level 143 Potassium Level 5.3 H Chloride Level 104 Carbon Dioxide Level 24 Anion Gap 15 H Blood Urea Nitrogen 44 H Creatinine 9.40 H Est Glomerular Filtrat Rate mL/min 5 L Glucose Level 70 Calcium Level 7.9 L Exam/Review of Systems Exam Vitals Vital Signs Date Temp Pulse Resp B/P (MAP) Pulse Ox O2 O2 Flow FiO2 Time Delivery Rate 10/31/18 86 14:28 10/31/18 16 120/70 96 Room Air 14:28 (87) 10/31/18 97.9 12:03 Intake and Output 10/30/18 10/30/18 10/31/18 1515:00 23:00 07:00 IntakeIntake Total 1100 ml 200 ml BalanceBalance 1100 ml 200 ml Exam Constitutional: alert Respiratory: clear to auscultation Cardiovascular: regular rate and rhythm Gastrointestinal: soft, non-tender Musculoskeletal: nl extremities to inspection Extremities: normal pulses 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: nl mental status Skin: nl turgor Additional Comments Left femoral hemodialysis catheter, left upper extremity AV fistula nonfunc tional Results Results 24hrs Laboratory Tests Test 10/31/18 05:50 White Blood Count 8.4 Red Blood Count 3.23 L Hemoglobin 9.8 L Hematocrit 31.0 L Mean Corpuscular Volume 96.0 Mean Corpuscular Hemoglobin 30.3 Mean Corpuscular Hemoglobin Concent 31.6 L Red Cell Distribution Width 16.2 H Platelet Count 273 Mean Platelet Volume 10.4 Immature Granulocytes % 0.500 H Neutrophils % 68.8 Lymphocytes % 18.9 Monocytes % 6.8 Eosinophils % 4.3 Basophils % 0.7 Nucleated Red Blood Cells % 0.0 Immature Granulocytes # 0.040 H Neutrophils # 5.8 Lymphocytes # 1.6 Monocytes # 0.6 Eosinophils # 0.4 Basophils # 0.1 Nucleated Red Blood Cells # 0.0 Sodium Level 143 Potassium Level 5.3 H Chloride Level 104 Carbon Dioxide Level 24 Anion Gap 15 H Blood Urea Nitrogen 44 H Creatinine 9.40 H Est Glomerular Filtrat Rate mL/min 5 L Glucose Level 70 Calcium Level 7.9 L Medications Medication Current Medications Albumin Human 100 ml @ 100 mls/hr WITH DIALYSIS PRN IV SBP <90 DURING DIALYSIS Last administered on 10/24/18at 21:00; Admin Dose 100 MLS/HR; Start 10/24/18 at 18:00 Heparin Sodium (Porcine) (Heparin (1000 Units/ml)) 5,200 unit AFTER DIALYSIS CATHETER Last administered on 10/28/18at 14:30; Admin Dose 5,200 UNIT; Start 10/24/18 at 22:30 Sodium Chloride 250 ml @ 250 mls/hr Q1H PRN IV tachycardia Last administered on 10/25/18 02:24; Admin Dose 250 MLS/HR; Start 10/25/18 at 01:00 Diphenhydramine HCl (Benadryl) 25 mg Q6H PRN IV ALLERGIC REACTION Last administered on 10/31/18 12:42; Admin Dose 25 MG; Start 10/25/18 at 01:00 Acetaminophen (Tylenol Tab) 650 mg Q4 PRN PO FEVER Last administered on 10/29/18 18:43; Admin Dose 650 MG; Start 10/25/18 at 01:00 Sevelamer Carbonate (Renvela) 800 mg WITH MEALS PO Last administered on 10/31/18 11:23; Admin Dose 800 MG; Start 10/25/18 at 07:35 Midodrine (Proamatine) 5 mg TID@09,13,17 PO Last administered on 10/31/18 12:18; Admin Dose 5 MG; Start 10/26/18 at 09:00 Lidocaine (Xylocaine 1% (Mdv) 20 ml) 1 ml WITH DIALYSIS PRN INJ PRIOR TO CANULLATION/HD; Start 10/26/18 at 12:30 Ondansetron HCl (Zofran Inj) 4 mg Q4H PRN IV NAUSEA AND/OR VOMITING Last administered on 10/30/18 23:04; Admin Dose 4 MG; Start 10/26/18 at 15:30 Morphine Sulfate (morphine) 2 mg Q4H PRN IV SEVERE PAIN LEVEL 7-10 Last administered on 10/31/18 11:28; Admin Dose 2 MG; Start 10/26/18 at 15:30 Epoetin Maxwell-epbx (Retacrit (Esrd)) 10,000 unit MoWeFr@1700 SC Last administered on 10/28/18 18:13; Admin Dose 10,000 UNIT; Start 10/28/18 at 17:00 Oxacillin Sodium 2 gm/Sodium Chloride 50 ml @ 100 mls/hr Q6 IVPB Last administered on 10/31/18 11:23; Admin Dose 100 MLS/HR; Start 10/30/18 at 18:00 ERICK ROBERTSON Oct 31, 2018 14:42
[2018-10-31] MEDS: EPOETIN ALFA-EPBX (ESRD) 10,000 UNIT/ML VIAL SC SCH (16:38)
[2018-11-01] MEDS: OXACILLIN 2 GM in SOD CHLORIDE 0.9% 50 ML IVPB SCH ×4 (00:52→17:26)
[2018-11-01 00:57] VITALS: BP 109/71; PULSE 74; RESP 18
[2018-11-01] MEDS: DIPHENHYDRAMINE 50 MG INJ IV PRN ×4 (03:53→23:04)
[2018-11-01] MEDS: morphine 2 MG INJ IV PRN ×5 (03:56→23:04)
[2018-11-01 04:26] VITALS: BP 112/77; PULSE 70; RESP 18
[2018-11-01 07:28] VITALS: BP_SYST 109; BP_SYST 157; BP_DIAS 64; BP_DIAS 79; PULSE 69; PULSE 85; RESP 18
[2018-11-01] MEDS: SEVELAMER CARBONATE 800 MG TABLET PO SCH ×3 (08:08→16:57)
[2018-11-01] MEDS: MIDODRINE 5 MG TAB PO SCH ×3 (08:08→16:25)
[2018-11-01 11:39] VITALS: BP 116/58; PULSE 65; RESP 17
[2018-11-01] MEDS: ONDANSETRON 4 MG INJ IV PRN (14:06)
--- NOTE | 2018-11-01 15:37 | CONS ---
Assessment/Plan Assessment/Plan Hospital Course (Demo Recall) # sepsis, heme/onc - sepsis due to bacteremia, recurrent - persistent bacteremia on 10/24, 10/25, and 10/26 due to MSSA, recurrent; repeat blood cultures on 10/28 shows NGTD; 2D echo does not mention vegetation - h/o transthoracic echo on 07/19/2018, no e/o endocarditis - s/p removal of permacath on R chest wall on 07/14/2018 - s/p R femoral HD justin catheter placement 07/14/2018, replaced by HD perm acath 07/19/2018 - pain/increased sensitivity of R groin after replacement of the Perez with permacath. 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 Last used for HD in 04/2018. Was scheduled to get a new graft in [facility] [place] as [place] - h/o swelling on the scalp and chest wall, possibly due to collateral veins as a result of thrombosis of AVF - hypotension after HD - h/o recurrent infection of HD catheter site/HD catheter - h/o removal and placement of a new Perez catheter in 05/2018. The culture of the tip of the removed catheter, blood cultures and swab of the catheter site were negative. Pt completed an empiric course of renally dosed pip/tazo (06/13/2018-06/18/2018) - h/o placement of a permacath on R chest wall on 06/23/2018 - h/o creation of AVF in [facility] [place] in 2016 - h/o 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 Her last cycle was in early 2018 - MRI of L spine did not show e/o spinal infection --S/p Cefazolin (10/27/2018-10/30/18) # GI/ - biliary cholic, N&E, intermittent: according to Pt, she had received authoriz ation for elective cholecystectomy as outpatient - h/o MRCP in 07/2017: negative for cholelithiasis or cholecystitis - amenorrhea since AVF creation in 2016 # renal/endo - ESRD on HD - primary hyperparathyroidism - h/o subtotal parathyroidectomy of R superior and inferior glands and partial L inferior gland in 06/2016 - h/o complete parathyroidectomy and partial L thyroid lobectomy in 11/2016 - 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 Pt took renally dosed valACV (07/15/2018-07/17/2018) - adverse reaction to vancomycin (pruritus) - adverse reaction to linezolid (thrombocytopenia). Linezolid was discontinued (06/12/2018-06/17/2018) - ?adverse reaction to cefazolin (severe abd pain/cramping, although pt tolerated a 14 day course of cefazolin in 06/2018) Recommendations: - pending results: swab of catheter site from 10/31/2018 - ordered: WBC tagged scan to investigate a source of her repeat bacteremia - I also recommend transesophageal echo to r/o vegetation - continue renally dosed oxacillin 2gm IV q6 hours (10/30/2018-) - In light of recurrent bacteremias and previous hx of thrombosed L brachiocephalic AV fistula will consider a more prolonged course of IV abx - we recommend vascular re-evaluation for possible fistula sites or alternative HD cath site management d/w Pt, her family member, BRIANA Leija and YOKASTA Shelton Consultation Date/Type/Reason Admit Date/Time Oct 25, 2018 at 04:13 Initial Consult Date 10/25/18 Type of Consult ID Reason for Consultation bacteremia Requesting Provider: LUANNE WALTER MD Date/Time of Note DATE: 11/01/18 TIME: 15:26 24 HR Interval Summary Constitutional: chills Detailed Summary Eyes: no complaints ENT: no complaints Respiratory: no complaints Cardiovascular: chest pain (intermittent squeezing chest pain), other (+AVF on LUE is non-functional) Gastrointestinal: no complaints Genitourinary: other (anuric) Musculoskeletal: restricted range of motion (uses a walker) Skin: other (+pain from HD catheter site) Neurologic: no complaints Exam/Review of Systems Exam Vitals Vital Signs Date Temp Pulse Resp B/P (MAP) Pulse Ox O2 O2 Flow FiO2 Time Delivery Rate 11/01/18 98.0 65 17 116/58 99 11:39 (77) 10/31/18 Room Air 14:28 Intake and Output 10/31/18 10/31/18 11/01/18 1515:00 23:00 07:00 IntakeIntake Total 450 ml 350 ml 100 ml OutputOutput Total 3400 ml 3000 ml 0 ml BalanceBalance -2950 ml -2650 ml 100 ml Constitutional: alert, oriented, well developed Psych: no complaints, nl mood/affect Head: normocephalic, atraumatic Eyes: nl conjunctiva, nl lids ENMT: nl external ears & nose, nl nasal mucosa & septum, other (+bald) Neck: No non-tender Respiratory: clear to auscultation, normal air movement Cardiovascular: regular rate and rhythm, nl pulses, other (HD catheter on L groin is dressed with pale brown drainage) Gastrointestinal: soft, non-tender, surgical scars; No distended Musculoskeletal: other (using a walker) Extremities: other (+AVF in LUE, no thrill) 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: [employer] II-XII intact, nl mental status, nl speech Skin: No rash or lesions, No ecchymosis Results Result Diagram: 10/31/18 0550 11/01/18 0556 Results 24hrs Laboratory Tests Test 11/01/18 05:56 Sodium Level 141 Potassium Level 5.0 Chloride Level 102 Carbon Dioxide Level 25 Anion Gap 14 H Blood Urea Nitrogen 27 #H Creatinine 7.58 H Est Glomerular Filtrat Rate mL/min 6 L Glucose Level 71 Calcium Level 8.4 Medications Medication Current Medications Albumin Human 100 ml @ 100 mls/hr WITH DIALYSIS PRN IV SBP <90 DURING DIALYSIS Last administered on 10/24/18 21:00; Admin Dose 100 MLS/HR; Start 10/24/18 at 18:00 Heparin Sodium (Porcine) (Heparin (1000 Units/ml)) 5,200 unit AFTER DIALYSIS CATHETER Last administered on 10/28/18 14:30; Admin Dose 5,200 UNIT; Start 10/24/18 at 22:30 Sodium Chloride 250 ml @ 250 mls/hr Q1H PRN IV tachycardia Last administered on 10/25/18 02:24; Admin Dose 250 MLS/HR; Start 10/25/18 at 01:00 Diphenhydramine HCl (Benadryl) 25 mg Q6H PRN IV ALLERGIC REACTION Last admin istered on 11/01/18at 10:06; Admin Dose 25 MG; Start 10/25/18 at 01:00 Acetaminophen (Tylenol Tab) 650 mg Q4 PRN PO FEVER Last administered on 10/29/18 18:43; Admin Dose 650 MG; Start 10/25/18 at 01:00 Sevelamer Carbonate (Renvela) 800 mg WITH MEALS PO Last administered on 11/01/18 11:15; Admin Dose 800 MG; Start 10/25/18 at 07:35 Midodrine (Proamatine) 5 mg TID@09,13,17 PO Last administered on 11/01/18 12:08; Admin Dose 5 MG; Start 10/26/18 at 09:00 Lidocaine (Xylocaine 1% (Mdv) 20 ml) 1 ml WITH DIALYSIS PRN INJ PRIOR TO CANULLATION/HD; Start 10/26/18 at 12:30 Ondansetron HCl (Zofran Inj) 4 mg Q4H PRN IV NAUSEA AND/OR VOMITING Last administered on 11/01/18 14:06; Admin Dose 4 MG; Start 10/26/18 at 15:30 Morphine Sulfate (morphine) 2 mg Q4H PRN IV SEVERE PAIN LEVEL 7-10 Last administered on 11/01/18 13:38; Admin Dose 2 MG; Start 10/26/18 at 15:30 Epoetin Maxwell-epbx (Retacrit (Esrd)) 10,000 unit MoWeFr@1700 SC Last administered on 10/31/18 16:38; Admin Dose 10,000 UNIT; Start 10/28/18 at 17:00 Oxacillin Sodium 2 gm/Sodium Chloride 50 ml @ 100 mls/hr Q6 IVPB Last administered on 11/01/18 12:07; Admin Dose 100 MLS/HR; Start 10/30/18 at 18:00 GINGER HARDIN M.D. Nov 01, 2018 15:37
[2018-11-01 15:42] VITALS: BP 120/74; PULSE 74; RESP 18
--- NOTE | 2018-11-01 16:14 | PN ---
Date/Time of Note Date/Time of Note DATE: 11/01/18 TIME: 16:12 Assessment/Plan VTE Prophylaxis Risk score (from [facility])>0 risk: 4 SCD applied (from [facility]): Yes Pharmacological prophylaxis: heparin Lines/Catheters IV Catheter Type (from [facility]): Mid Line Central line still needed: Yes Urinary Cath still in place: No Assessment/Plan Hospital Course Patient is awake alert complains of left hand pain, and occasional nausea will obtain left hand x-ray. Discussed with Dr. Arora patient is currently continued on oxacillin 2 g every 6 hours for treatment of bacteremia with recommendation for transesophageal echo, requested from Dr. Barrera who is following in cardiology consultation. Assessment/Plan -Sepsis with DIMITRI bacteremia with fevers, leukocytosis, and hypotension. Continue antibiotics per ID. Dr. Arora is following in ID consultation. -Hemodialysis dependent end-stage renal disease, continue dialysis per nephrology. Dr. Beltran is following in nephrology consultation. -Leukemia, patient is undergoing chemotherapy last chemo was on Wednesday10/11/18. -Anemia multifactorial chronic disease and recent chemo, status post blood transfusion, continue to monitor H&H, continue Epogen. -Mineral bone disease with renal osteodystrophy. No acute fractures, traumatic subluxations, osteomyelitis or diskitis per MRI of the lumbar spine. -Primary hyperparathyroidism, status post complete parathyroidectomy and partial left thyroid lobectomy 2 years ago. -Left femoral hemodialysis catheter present on admission. Further recommendations based on clinical course. Plan of care discussed with Dr. Turner. Result Diagram: 10/31/18 0550 11/01/18 0556 Results 24hrs Laboratory Tests Test 11/01/18 05:56 Sodium Level 141 Potassium Level 5.0 Chloride Level 102 Carbon Dioxide Level 25 Anion Gap 14 H Blood Urea Nitrogen 27 #H Creatinine 7.58 H Est Glomerular Filtrat Rate mL/min 6 L Glucose Level 71 Calcium Level 8.4 Exam/Review of Systems Exam Vitals Vital Signs Date Temp Pulse Resp B/P (MAP) Pulse Ox O2 O2 Flow FiO2 Time Delivery Rate 11/01/18 98.3 74 18 120/74 97 15:42 (89) 10/31/18 Room Air 14:28 Intake and Output 10/31/18 10/31/18 11/01/18 1515:00 23:00 07:00 IntakeIntake Total 450 ml 350 ml 100 ml OutputOutput Total 3400 ml 3000 ml 0 ml BalanceBalance -2950 ml -2650 ml 100 ml Exam Constitutional: alert Respiratory: clear to auscultation Cardiovascular: regular rate and rhythm Gastrointestinal: soft, non-tender Musculoskeletal: nl extremities to inspection Extremities: normal pulses 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: nl mental status Skin: nl turgor Additional Comments Left femoral hemodialysis catheter, left upper extremity AV fistula nonfunctional Results Results 24hrs Laboratory Tests Test 11/01/18 05:56 Sodium Level 141 Potassium Level 5.0 Chloride Level 102 Carbon Dioxide Level 25 Anion Gap 14 H Blood Urea Nitrogen 27 #H Creatinine 7.58 H Est Glomerular Filtrat Rate mL/min 6 L Glucose Level 71 Calcium Level 8.4 Medications Medication Current Medications Albumin Human 100 ml @ 100 mls/hr WITH DIALYSIS PRN IV SBP <90 DURING DIALYSIS Last administered on 10/24/18 21:00; Admin Dose 100 MLS/HR; Start 10/24/18 at 18:00 Heparin Sodium (Porcine) (Heparin (1000 Units/ml)) 5,200 unit AFTER DIALYSIS CATHETER Last administered on 10/28/18 14:30; Admin Dose 5,200 UNIT; Start 10/24/18 at 22:30 Sodium Chloride 250 ml @ 250 mls/hr Q1H PRN IV tachycardia Last administered on 10/25/18 02:24; Admin Dose 250 MLS/HR; Start 10/25/18 at 01:00 Diphenhydramine HCl (Benadryl) 25 mg Q6H PRN IV ALLERGIC REACTION Last administered on 11/01/18 10:06; Admin Dose 25 MG; Start 10/25/18 at 01:00 Acetaminophen (Tylenol Tab) 650 mg Q4 PRN PO FEVER Last administered on 10/29/18 18:43; Admin Dose 650 MG; Start 10/25/18 at 01:00 Sevelamer Carbonate (Renvela) 800 mg WITH MEALS PO Last administered on 11/01/18 11:15; Admin Dose 800 MG; Start 10/25/18 at 07:35 Midodrine (Proamatine) 5 mg TID@09,13,17 PO Last administered on 11/01/18 12:08; Admin Dose 5 MG; Start 10/26/18 at 09:00 Lidocaine (Xylocaine 1% (Mdv) 20 ml) 1 ml WITH DIALYSIS PRN INJ PRIOR TO CANULLATION/HD; Start 10/26/18 at 12:30 Ondansetron HCl (Zofran Inj) 4 mg Q4H PRN IV NAUSEA AND/OR VOMITING Last administered on 11/01/18 14:06; Admin Dose 4 MG; Start 10/26/18 at 15:30 Morphine Sulfate (morphine) 2 mg Q4H PRN IV SEVERE PAIN LEVEL 7-10 Last administered on 11/01/18 13:38; Admin Dose 2 MG; Start 10/26/18 at 15:30 Epoetin Maxwell-epbx (Retacrit (Esrd)) 10,000 unit MoWeFr@1700 SC Last administered on 10/31/18 16:38; Admin Dose 10,000 UNIT; Start 10/28/18 at 17:00 Oxacillin Sodium 2 gm/Sodium Chloride 50 ml @ 100 mls/hr Q6 IVPB Last administered on 11/01/18 12:07; Admin Dose 100 MLS/HR; Start 10/30/18 at 18:00 ERICK ROBERTSON Nov 01, 2018 16:14
--- NOTE | 2018-11-01 17:03 | CONS ---
Assessment/Plan Assessment/Plan Assessment/Plan (Daily) 1. Septic shock s/p Levophed 2. ESRD on HD MWF schedule , left femoral permacath for HD access 3. Bacteremia with Blood cx growing staph aureus 4. H/o Leukemia currently on chemotherapy, last chem on 10/21/18 5. H/o Primary hyperparathyroidism, status post complete parathyroidectomy and partial left thyroid lobectomy 2 years ago. 6. H/o Anemia of ESRD 7, Difficult vascular Access Plan: s/p HD yesterday 3.2 L removed, , now BP stable -, pt regular schedule for HD is MWF, HD ordered for wednesday staph aureus bacteremia - IV abx oxacillin 2 gram IV Q 6 hr - ID following, pt is very difficult vascular access- only access she had is left groin permacath Continue other home medications, Midodrine 5 mg PO TID for BP support will follow up Consultation Date/Type/Reason Admit Date/Time Oct 25, 2018 at 04:13 Initial Consult Date Type of Consult NEPHROLOGY Requesting Provider: LUANNE WALTER MD Date/Time of Note DATE: 11/01/18 TIME: 17:03 24 HR Interval Summary Free Text/Dictation on IV oxacillin for staph aureus bacteremia Exam/Review of Systems Exam Vitals Vital Signs Date Temp Pulse Resp B/P (MAP) Pulse Ox O2 O2 Flow FiO2 Time Delivery Rate 11/01/18 98.3 74 18 120/74 97 15:42 (89) 10/31/18 Room Air 14:28 Intake and Output 10/31/18 10/31/18 11/01/18 1515:00 23:00 07:00 IntakeIntake Total 450 ml 350 ml 100 ml OutputOutput Total 3400 ml 3000 ml 0 ml BalanceBalance -2950 ml -2650 ml 100 ml Exam Constitutional: alert, awake, no acute distress Respiratory: clear to auscultation Cardiovascular: regular rate and rhythm Gastrointestinal: soft, non-tender Musculoskeletal: nl extremities to inspection Extremities: normal pulses 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: nl mental status Additional Comments Left femoral hemodialysis catheter, left upper extremity AV fistula nonfunctional Results Result Diagram: 10/31/18 0550 11/01/18 0556 Results 24hrs Laboratory Tests Test 11/01/18 05:56 Sodium Level 141 Potassium Level 5.0 Chloride Level 102 Carbon Dioxide Level 25 Anion Gap 14 H Blood Urea Nitrogen 27 #H Creatinine 7.58 H Est Glomerular Filtrat Rate mL/min 6 L Glucose Level 71 Calcium Level 8.4 Medications Medication Current Medications Albumin Human 100 ml @ 100 mls/hr WITH DIALYSIS PRN IV SBP <90 DURING DIALYSIS Last administered on 10/24/18 21:00; Admin Dose 100 MLS/HR; Start 10/24/18 at 18:00 Heparin Sodium (Porcine) (Heparin (1000 Units/ml)) 5,200 unit AFTER DIALYSIS CATHETER Last administered on 10/28/18 14:30; Admin Dose 5,200 UNIT; Start 10/24/18 at 22:30 Sodium Chloride 250 ml @ 250 mls/hr Q1H PRN IV tachycardia Last administered on 10/25/18 02:24; Admin Dose 250 MLS/HR; Start 10/25/18 at 01:00 Diphenhydramine HCl (Benadryl) 25 mg Q6H PRN IV ALLERGIC REACTION Last ad ministered on 11/01/18 10:06; Admin Dose 25 MG; Start 10/25/18 at 01:00 Acetaminophen (Tylenol Tab) 650 mg Q4 PRN PO FEVER Last administered on 10/29/18 18:43; Admin Dose 650 MG; Start 10/25/18 at 01:00 Sevelamer Carbonate (Renvela) 800 mg WITH MEALS PO Last administered on 11/01/18 11:15; Admin Dose 800 MG; Start 10/25/18 at 07:35 Midodrine (Proamatine) 5 mg TID@09,13,17 PO Last administered on 11/01/18 12:08; Admin Dose 5 MG; Start 10/26/18 at 09:00 Lidocaine (Xylocaine 1% (Mdv) 20 ml) 1 ml WITH DIALYSIS PRN INJ PRIOR TO CANULLATION/HD; Start 10/26/18 at 12:30 Ondansetron HCl (Zofran Inj) 4 mg Q4H PRN IV NAUSEA AND/OR VOMITING Last administered on 11/01/18 14:06; Admin Dose 4 MG; Start 10/26/18 at 15:30 Morphine Sulfate (morphine) 2 mg Q4H PRN IV SEVERE PAIN LEVEL 7-10 Last administered on 11/01/18 13:38; Admin Dose 2 MG; Start 10/26/18 at 15:30 Epoetin Maxwell-epbx (Retacrit (Esrd)) 10,000 unit MoWeFr@1700 SC Last administered on 10/31/18at 16:38; Admin Dose 10,000 UNIT; Start 10/28/18 at 17:00 Oxacillin Sodium 2 gm/Sodium Chloride 50 ml @ 100 mls/hr Q6 IVPB Last administered on 11/01/18at 12:07; Admin Dose 100 MLS/HR; Start 10/30/18 at 18:00 HENRIQUE GRANADO MD Nov 01, 2018 17:03
[2018-11-01 20:23] VITALS: BP 138/95; PULSE 62; RESP 18
[2018-11-02] VITALS (21 sets, daily range): BP systolic 97–141; BP diastolic 57–95; PULSE 57–107; RESP 16–19
[2018-11-02] MEDS: OXACILLIN 2 GM in SOD CHLORIDE 0.9% 50 ML IVPB SCH ×5 (00:25→23:05)
[2018-11-02] MEDS: DIPHENHYDRAMINE 50 MG INJ IV PRN ×4 (05:03→23:00)
[2018-11-02] MEDS: morphine 2 MG INJ IV PRN ×4 (05:03→23:01)
[2018-11-02] MEDS: MIDODRINE 5 MG TAB PO SCH ×3 (08:38→17:23)
[2018-11-02] MEDS: SEVELAMER CARBONATE 800 MG TABLET PO SCH ×3 (08:38→17:23)
--- NOTE | 2018-11-02 09:56 | CONS ---
Assessment/Plan Assessment/Plan Assessment/Plan (Daily) 1. Septic shock s/p Levophed 2. ESRD on HD MWF schedule , left femoral permacath for HD access 3. Bacteremia with Blood cx growing staph aureus 4. H/o Leukemia currently on chemotherapy, last chem on 10/21/18 5. H/o Primary hyperparathyroidism, status post complete parathyroidectomy and partial left thyroid lobectomy 2 years ago. 6. H/o Anemia of ESRD 7, Difficult vascular Access Plan: s/p HD today 3 L removed, , , now BP stable -, pt regular schedule for HD is MWF, HD ordered for Wednesday staph aureus bacteremia - IV abx oxacillin 2 gram IV Q 6 hr - ID following, pt is very difficult vascular access- only access she had is left groin permacath Continue other home medications, Midodrine 5 mg PO TID for BP support will follow up Consultation Date/Type/Reason Admit Date/Time Oct 25, 2018 at 04:13 Initial Consult Date Type of Consult NEPHROLOGY Requesting Provider: LUANNE WALTER MD Date/Time of Note DATE: 11/02/18 TIME: 09:56 24 HR Interval Summary Free Text/Dictation s/p HD today 3 L removed, BP stable Exam/Review of Systems Exam Vitals Vital Signs Date Temp Pulse Resp B/P (MAP) Pulse Ox O2 O2 Flow FiO2 Time Delivery Rate 11/02/18 98.1 70 18 106/57 98 Room Air 07:40 (73) Intake and Output 11/01/18 11/01/18 11/02/18 1515:00 23:00 07:00 IntakeIntake Total 600 ml 290 ml 550 ml BalanceBalance 600 ml 290 ml 550 ml Results Result Diagram: 10/31/18 0550 11/01/18 0556 Medications Medication Current Medications Albumin Human 100 ml @ 100 mls/hr WITH DIALYSIS PRN IV SBP <90 DURING DIALYSIS Last administered on 10/24/18at 21:00; Admin Dose 100 MLS/HR; Start 10/24/18 at 18:00 Heparin Sodium (Porcine) (Heparin (1000 Units/ml)) 5,200 unit AFTER DIALYSIS CATHETER Last administered on 10/28/18at 14:30; Admin Dose 5,200 UNIT; Start 10/24/18 at 22:30 Sodium Chloride 250 ml @ 250 mls/hr Q1H PRN IV tachycardia Last administered on 10/25/18 02:24; Admin Dose 250 MLS/HR; Start 10/25/18 at 01:00 Diphenhydramine HCl (Benadryl) 25 mg Q6H PRN IV ALLERGIC REACTION Last administered on 11/02/18 05:03; Admin Dose 25 MG; Start 10/25/18 at 01:00 Acetaminophen (Tylenol Tab) 650 mg Q4 PRN PO FEVER Last administered on 10/29/18 18:43; Admin Dose 650 MG; Start 10/25/18 at 01:00 Sevelamer Carbonate (Renvela) 800 mg WITH MEALS PO Last administered on 11/02/18 08:38; Admin Dose 800 MG; Start 10/25/18 at 07:35 Midodrine (Proamatine) 5 mg TID@09,13,17 PO Last administered on 11/02/18 08:38; Admin Dose 5 MG; Start 10/26/18 at 09:00 Lidocaine (Xylocaine 1% (Mdv) 20 ml) 1 ml WITH DIALYSIS PRN INJ PRIOR TO CANULLATION/HD; Start 10/26/18 at 12:30 Ondansetron HCl (Zofran Inj) 4 mg Q4H PRN IV NAUSEA AND/OR VOMITING Last administered on 11/01/18 14:06; Admin Dose 4 MG; Start 10/26/18 at 15:30 Morphine Sulfate (morphine) 2 mg Q4H PRN IV SEVERE PAIN LEVEL 7-10 Last administered on 11/02/18 05:03; Admin Dose 2 MG; Start 10/26/18 at 15:30 Epoetin Maxwell-epbx (Retacrit (Esrd)) 10,000 unit MoWeFr@1700 SC Last administered on 10/31/18 16:38; Admin Dose 10,000 UNIT; Start 10/28/18 at 17:00 Oxacillin Sodium 2 gm/Sodium Chloride 50 ml @ 100 mls/hr Q6 IVPB Last administered on 11/02/18 05:03; Admin Dose 100 MLS/HR; Start 10/30/18 at 18:00 HENRIQUE GRANADO MD Nov 02, 2018 09:56
--- NOTE | 2018-11-02 13:37 | CONS ---
Assessment/Plan Assessment/Plan Hospital Course (Demo Recall) # sepsis, heme/onc - sepsis due to bacteremia, recurrent - persistent bacteremia on 10/24, 10/25, and 10/26 due to MSSA, recurrent; repeat blood cultures on 10/28 were negative; transthoracic echo does not mention vegetation - h/o transthoracic echo on 07/19/2018, no e/o endocarditis - placement of HD catheter on L groin in 09/2018. Per P, she had pruritus, "bumps" and green discharge from the catheter site. Its culture on 10/31/2018 grew S. aureus - s/p removal of permacath on R chest wall on 07/14/2018 - s/p R femoral HD justin catheter placement 07/14/2018, replaced by HD permacath 07/19/2018 - pain/increased sensitivity of R groin after replacement of the Perez with permacath. 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 Last used for HD in 04/2018. Was scheduled to get a new graft in [facility] as outpatient - h/o swelling on the scalp and chest wall, possibly due to collateral veins as a result of thrombosis of AVF - hypotension after HD - h/o recurrent infection of HD catheter site/HD catheter - h/o removal and placement of a new Perez catheter in 05/2018. The culture of the tip of the removed catheter, blood cultures and swab of the catheter site were negative. Pt completed an empiric course of renally dosed pip/tazo (-06/18/2018) - h/o placement of a permacath on R chest wall on 06/23/2018 - h/o creation of AVF in [facility] in 2017 - h/o 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 Her last cycle was in early 2018 - MRI of L spine did not show e/o spinal infection --S/p Cefazolin (10/27/2018-10/30/18) # GI/ - biliary cholic, N&E, intermittent: according to Pt, she had received authorization for elective cholecystectomy as outpatient - h/o MRCP in 07/2017: negative for cholelithiasis or cholecystitis - amenorrhea since AVF creation in 2016 # renal/endo - ESRD on HD - primary hyperparathyroidism - h/o subtotal parathyroidectomy of R superior and inferior glands and partial L inferior gland in 06/2016 - h/o complete parathyroidectomy and partial L thyroid lobectomy in 11/2016 - 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 Pt took renally dosed valACV (07/15/2018-07/17/2018) - adverse reaction to vancomycin (pruritus) - adverse reaction to linezolid (thrombocytopenia). Linezolid was discontinued (06/12/2018-06/17/2018) - ?adverse reaction to cefazolin (severe abd pain/cramping, although pt tolerated a 14 day course of cefazolin in 06/2018) Recommendations: - pending results: swab of catheter site from 10/31/2018 (S. aureus so far) - ordered: WBC tagged scan to investigate a source of her repeat bacteremia or its complications - I appreciate Dr. Barrera performing transesophageal echo to r/o vegetation - I recommend d/c HD catheter because the "greenish pus" at the site grew S. aureus - continue renally dosed oxacillin 2gm IV q6 hours (10/30/2018-) management d/w Pt, her mother, BRIANA Rea, Dr. Barrera and [employer] Nikita Consultation Date/Type/Reason Admit Date/Time Oct 25, 2018 at 04:13 Initial Consult Date 10/25/18 Type of Consult ID Requesting Provider: LUANNE WALTER MD Date/Time of Note DATE: 11/02/18 TIME: 13:33 24 HR Interval Summary Constitutional: no complaints Detailed Summary Eyes: no complaints ENT: no complaints Respiratory: no complaints Cardiovascular: no complaints Gastrointestinal: no complaints Genitourinary: other (on HD) Musculoskeletal: no complaints Skin: pruritis (L groin), rash (L groin) Neurologic: no complaints Exam/Review of Systems Exam Vitals Vital Signs Date Temp Pulse Resp B/P (MAP) Pulse Ox O2 O2 Flow FiO2 Time Delivery Rate 11/02/18 97.8 64 18 125/73 99 Room Air 10:59 (90) Intake and Output 711/01/18 11/02/18 1515:00 23:00 07:00 IntakeIntake Total 600 ml 290 ml 550 ml BalanceBalance 600 ml 290 ml 550 ml Constitutional: alert, oriented, frail Psych: no complaints, nl mood/affect Head: normocephalic, other (alopecia) Eyes: nl conjunctiva, nl lids ENMT: nl external ears & nose, nl nasal mucosa & septum, mucosa pink and moist Neck: supple Respiratory: clear to auscultation, normal air movement Cardiovascular: regular rate and rhythm, nl pulses Gastrointestinal: soft, non-tender; No distended, No tender Genitourinary - Female: other (folliculitis of b/l groin) Musculoskeletal: nl extremities to inspection Extremities: No edema 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: nl mental status, nl speech Skin: nl turgor, rash or lesions (macules, dry skin in b/l groin) Results Result Diagram: 10/31/18 0550 11/01/18 0556 Medications Medication Current Medications Albumin Human 100 ml @ 100 mls/hr WITH DIALYSIS PRN IV SBP <90 DURING DIALYSIS Last administered on 10/24/18 21:00; Admin Dose 100 MLS/HR; Start 10/24/18 at 18:00 Heparin Sodium (Porcine) (Heparin (1000 Units/ml)) 5,200 unit AFTER DIALYSIS CATHETER Last administered on 10/28/18 14:30; Admin Dose 5,200 UNIT; Start 10/24/18 at 22:30 Sodium Chloride 250 ml @ 250 mls/hr Q1H PRN IV tachycardia Last administered on 10/25/18 02:24; Admin Dose 250 MLS/HR; Start 10/25/18 at 01:00 Diphenhydramine HCl (Benadryl) 25 mg Q6H PRN IV ALLERGIC REACTION Last administered on 11/02/18 11:07; Admin Dose 25 MG; Start 10/25/18 at 01:00 Acetaminophen (Tylenol Tab) 650 mg Q4 PRN PO FEVER Last administered on 10/29/18 18:43; Admin Dose 650 MG; Start 10/25/18 at 01:00 Sevelamer Carbonate (Renvela) 800 mg WITH MEALS PO Last administered on 11/02/18 11:08; Admin Dose 800 MG; Start 10/25/18 at 07:35 Midodrine (Proamatine) 5 mg TID@09,13,17 PO Last administered on 11/02/18at 1 2:35; Admin Dose 5 MG; Start 10/26/18 at 09:00 Lidocaine (Xylocaine 1% (Mdv) 20 ml) 1 ml WITH DIALYSIS PRN INJ PRIOR TO CANULLATION/HD; Start 10/26/18 at 12:30 Ondansetron HCl (Zofran Inj) 4 mg Q4H PRN IV NAUSEA AND/OR VOMITING Last administered on 11/01/18at 14:06; Admin Dose 4 MG; Start 10/26/18 at 15:30 Morphine Sulfate (morphine) 2 mg Q4H PRN IV SEVERE PAIN LEVEL 7-10 Last administered on 11/02/18at 11:08; Admin Dose 2 MG; Start 10/26/18 at 15:30 Epoetin Maxwell-epbx (Retacrit (Esrd)) 10,000 unit MoWeFr@1700 SC Last administered on 10/31/18at 16:38; Admin Dose 10,000 UNIT; Start 10/28/18 at 17:00 Oxacillin Sodium 2 gm/Sodium Chloride 50 ml @ 100 mls/hr Q6 IVPB Last administered on 11/02/18 12:37; Admin Dose 100 MLS/HR; Start 10/30/18 at 18:00 GINGER HARDIN M.D. Nov 02, 2018 13:37
[2018-11-02] MEDS: MUPIROCIN 2% 22 GM OINT TOP SCH ×2 (14:22→21:00)
--- NOTE | 2018-11-02 15:31 | CONS ---
DATE OF ADMISSION: 10/25/2018 DATE OF CONSULTATION: 11/02/2018 REASON FOR CONSULTATION: Assess for intracardiac source of infection. REQUESTING PHYSICIAN: Luanne Walter MD. HISTORY OF PRESENT ILLNESS: Ms. Lakhani is a 33-year-old female with a history of end-stage renal disease on hemodialysis via left femoral HD catheter, leukemia for which the patient is undergoing chemotherapy, hyperthyroidism status post parathyroidectomy, left thyroid lobectomy, bacteremia MSSA in June of this year, who sent to the emergency room from hemodialysis center for fevers and chills. Upon arrival in the emergency department, the patient was noted to have a fever of 103. White blood cell count of 13,000 and some nonbloody emesis. The patient was admitted to the floor, underwent blood culture assessment turning positive for Staphylococcus aureus on the , and , most recently from the have been negative to date. The patient underwent a transthoracic echo interpreted by Dr. Arias on 10/29/2018 that revealed a normal EF with no significant findings of intracardiac source of infection. The patient is being followed by infectious disease services, who have recommended further evaluation for possible intracardiac source of infection or endocarditis with transesophageal echo. Given these findings, cardiac consult requested. Additionally, the patient has been placed on midodrine for low blood pressure. PAST MEDICAL HISTORY: As above in HPI. MEDICATIONS CURRENTLY IN HOSPITAL: 1. Oxacillin. 2. Zofran. 3. Morphine. 4. Lidocaine. 5. Midodrine 5 mg 3 times daily. 6. Renvela. 7. Benadryl. 8. Tylenol. 9. Heparin with dialysis. 10. Albumin with dialysis. ALLERGIES: ANCEF AND VANCOMYCIN. SOCIAL HISTORY: No current tobacco, ETOH or illicit drug use. FAMILY HISTORY: No history of sudden cardiac or early CAD. REVIEW OF SYSTEMS: As above in HPI. CONSTITUTIONAL: No fevers, chills. PULMONARY: No current shortness of breath. CARDIOVASCULAR: No current chest pain. GASTROINTESTINAL: No vomiting. GENITOURINARY: End-stage renal disease. PSYCHIATRIC: No documented psych history. NEUROLOGIC: No documented history of CVA. ENDOCRINE: No documented history of diabetes mellitus. PHYSICAL EXAMINATION: VITAL SIGNS: Temperature 97.9, blood pressure most recently 125/73, pulse 64, respirations 18, sat 99%. GENERAL: The patient is alert, awake, in no acute distress. NECK: JVP approximately 8 to 9 cm of water. CHEST: Fair air movement throughout. HEART: Regular rate and rhythm. Normal S1, S2. Grade I/ systolic murmur, nondisplaced PMI. ABDOMEN: Positive bowel sounds, soft. EXTREMITIES: No significant pitting edema, 1+ pulses bilaterally posterior tibial, left femoral dialysis catheter. LABORATORY DATA: Most recently from the , sodium 141, potassium 5.0, creatinine 7.5, BUN 27. White blood cell count 8.4, hemoglobin 9.8, platelet count 273. IMAGING STUDIES: A chest x-ray from the revealing a left basilar subsegmental atelectasis. A lumbar spine MRI revealing no acute fractures, spine compatible with renal osteodystrophy, renal cortical cyst multiple, broad- based bulge at L1-L2 through L5-S1, L3-L4 and L4-L5. A KUB from the revealed nonspecific bowel gas pattern. ECG: Revealed normal sinus rhythm at 85, normal axis, normal intervals, lateral T-wave inversion in aVL. IMPRESSION: 1. Bacteremia, assess for endocarditis, intracardiac source of infection. 2. Abnormal electrocardiogram with lateral T-wave inversion. 3. Hypertension, mainly diastolic labile, currently improved. 4. Leukemia. 5. Anemia. 6. Possible hypotension. Initially with midodrine. RECOMMENDATIONS: 1. At this time, we would maintain the patient on telemetry monitoring to follow rhythm and rates closely. 2. Continue the patient's antibiotics and continue to follow up culture data, most recently cultures which have been negative to date. 3. We would check serial EKGs to assess for any significant ongoing changes or possible signs of myocardial spread of infection and would send troponins serially to assess for any possible myocardial tisssue necrosis from myocardial infection. 4. We will try to facilitate a transesophageal echo on this patient to further assess for possible intracardiac source of infection as requested by infectious disease and primary MD. Thank you for allowing me to take part in the care of this patient. I will continue to follow very closely with you with recommendations to be made as the patient progresses through inpatient hospital clinical course. Dictated By: HENRIQUE BATES/MIKE Conf#: [id number] DID#: [id number] CC: HENRIQUE GRANADO MD; LUANNE WALTER MD;*EndCC* MTDD
[2018-11-02] MEDS: HEPARIN 1000 UNITS/ML 10 ML INJ CATHETER SCH (16:53)
[2018-11-02] MEDS: EPOETIN ALFA-EPBX (ESRD) 10,000 UNIT/ML VIAL SC SCH (17:33)
--- NOTE | 2018-11-02 17:51 | PN ---
Date/Time of Note Date/Time of Note DATE: 11/02/18 TIME: 17:47 Assessment/Plan VTE Prophylaxis Risk score (from Nsg)>0 risk: 4 SCD applied (from Nsg): Yes Pharmacological prophylaxis: heparin Lines/Catheters IV Catheter Type (from Nrsg): Mid Line Central line still needed: Yes Urinary Cath still in place: No Assessment/Plan Hospital Course Patient is awake alert, complains of left hand pain, left hand x-ray negative for any fracture. Patient's condition and plan of care discussed with Dr. Arora and Dr. Beltran. Assessment/Plan -Sepsis with DIMITRI bacteremia with fevers, leukocytosis, and hypotension. patient is currently continued on oxacillin 2 g every 6 hours Continue antibiotics per ID. Dr. Arora is following in ID consultation. Pending AMANDA. Dr. Barrera is following in cardiology consultation. -Hemodialysis dependent end-stage renal disease, continue dialysis per nephrology. Dr. Beltran is following in nephrology consultation. -Leukemia, patient is undergoing chemotherapy last chemo was on Wednesday10/11/18. -Anemia multifactorial chronic disease and recent chemo, status post blood transfusion, continue to monitor H&H, continue Epogen. -Mineral bone disease with renal osteodystrophy. No acute fractures, traumatic subluxations, osteomyelitis or diskitis per MRI of the lumbar spine. -Primary hyperparathyroidism, status post complete parathyroidectomy and partial left thyroid lobectomy 2 years ago. -Left femoral hemodialysis catheter present on admission. Further recommendations based on clinical course. Plan of care discussed with Dr. Turner. Result Diagram: 10/31/18 0550 11/01/18 0556 Exam/Review of Systems Exam Vitals Vital Signs Date Temp Pulse Resp B/P (MAP) Pulse Ox O2 O2 Flow FiO2 Time Delivery Rate 11/02/18 107 16 125/74 99 Room Air 17:20 (91) 11/02/18 98.3 15:23 Intake and Output 11/01/18 11/01/18 11/02/18 1515:00 23:00 07:00 IntakeIntake Total 600 ml 290 ml 550 ml BalanceBalance 600 ml 290 ml 550 ml Exam Constitutional: alert Respiratory: clear to auscultation Cardiovascular: regular rate and rhythm Gastrointestinal: soft, non-tender Musculoskeletal: nl extremities to inspection Extremities: normal pulses 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: nl mental status Skin: nl turgor Additional Comments Left femoral hemodialysis catheter, left upper extremity AV fistula nonfunctional Medications Medication Current Medications Albumin Human 100 ml @ 100 mls/hr WITH DIALYSIS PRN IV SBP <90 DURING DIALYSIS Last administered on 10/24/18 21:00; Admin Dose 100 MLS/HR; Start 10/24/18 at 18:00 Heparin Sodium (Porcine) (Heparin (1000 Units/ml)) 5,200 unit AFTER DIALYSIS CATHETER Last administered on 11/02/18 16:53; Admin Dose 5,200 UNIT; Start 10/24/18 at 22:30 Sodium Chloride 250 ml @ 250 mls/hr Q1H PRN IV tachycardia Last administered on 10/25/18 02:24; Admin Dose 250 MLS/HR; Start 10/25/18 at 01:00 Diphenhydramine HCl (Benadryl) 25 mg Q6H PRN IV ALLERGIC REACTION Last administered on 11/02/18 17:22; Admin Dose 25 MG; Start 10/25/18 at 01:00 Acetaminophen (Tylenol Tab) 650 mg Q4 PRN PO FEVER Last administered on 10/29/18 18:43; Admin Dose 650 MG; Start 10/25/18 at 01:00 Sevelamer Carbonate (Renvela) 800 mg WITH MEALS PO Last administered on 17:23; Admin Dose 800 MG; Start 10/25/18 at 07:35 Midodrine (Proamatine) 5 mg TID@09,13,17 PO Last administered on 11/02/18 17:23; Admin Dose 5 MG; Start 10/26/18 at 09:00 Lidocaine (Xylocaine 1% (Mdv) 20 ml) 1 ml WITH DIALYSIS PRN INJ PRIOR TO CANULLATION/HD; Start 10/26/18 at 12:30 Ondansetron HCl (Zofran Inj) 4 mg Q4H PRN IV NAUSEA AND/OR VOMITING Last administered on 11/01/18 14:06; Admin Dose 4 MG; Start 10/26/18 at 15:30 Morphine Sulfate (morphine) 2 mg Q4H PRN IV SEVERE PAIN LEVEL 7-10 Last administered on 11/02/18 17:22; Admin Dose 2 MG; Start 10/26/18 at 15:30 Epoetin Maxwell-epbx (Retacrit (Esrd)) 10,000 unit MoWeFr@1700 SC Last administered on 11/02/18 17:33; Admin Dose 10,000 UNIT; Start 10/28/18 at 17:00 Oxacillin Sodium 2 gm/Sodium Chloride 50 ml @ 100 mls/hr Q6 IVPB Last administered on 11/02/18 17:23; Admin Dose 100 MLS/HR; Start 10/30/18 at 18:00 Mupirocin (Bactroban) 1 applic BID TOP Last administered on 11/02/18at 14:22; Admin Dose 1 APPLIC; Start 11/02/18 at 13:30 ERICK ROBERTSON Nov 02, 2018 17:51
[2018-11-03 03:47] VITALS: BP 103/69; PULSE 74; RESP 18
[2018-11-03] MEDS: DIPHENHYDRAMINE 50 MG INJ IV PRN ×4 (05:01→23:07)
[2018-11-03] MEDS: morphine 2 MG INJ IV PRN ×4 (05:02→23:08)
[2018-11-03] MEDS: OXACILLIN 2 GM in SOD CHLORIDE 0.9% 50 ML IVPB SCH ×4 (05:57→23:08)
[2018-11-03 07:19] VITALS: BP 111/65; PULSE 65; RESP 18
[2018-11-03] MEDS: SEVELAMER CARBONATE 800 MG TABLET PO SCH ×3 (07:55→16:50)
[2018-11-03] MEDS: MUPIROCIN 2% 22 GM OINT TOP SCH ×2 (08:55→21:00)
[2018-11-03] MEDS: MIDODRINE 5 MG TAB PO SCH ×3 (08:55→16:50)
[2018-11-03 11:12] VITALS: BP 130/50; PULSE 89; RESP 18
--- NOTE | 2018-11-03 13:21 | PREAC ---
Date/Time of Note Date/Time of Note DATE: 11/03/18 TIME: 13:18 Anesthesia Eval and Record Evaluation Time Pre-Procedure Interview DATE: 11/03/18 TIME: 13:18 Age 33 Sex female NPO: 8 hrs Preoperative diagnosis R/O vegitations Planned procedure AMANDA Past Medical History Past Medical History: Includes Endo: Hyperthyroid Renal: ESRD on dialysis (HD was done yesterday) Heme: Anemia, Other (Leukemia) Surgery & Anesthesia Issues No known issue Meds Anticoagulation: No Beta Chichi within 24 hr: No Reason Beta Chichi not given: Pt. not on B-Chichi Reported Medications Sevelamer Hcl* (Renagel*) 800 Mg Tablet, 800 MG PO WITH MEALS, TAB 05/14/18 Current Medications Albumin Human 100 ml @ 100 mls/hr WITH DIALYSIS PRN IV SBP <90 DURING DIALYSIS Last administered on 10/24/18 21:00; Admin Dose 100 MLS/HR; Start 10/24/18 at 18:00 Heparin Sodium (Porcine) (Heparin (1000 Units/ml)) 5,200 unit AFTER DIALYSIS CATHETER Last administered on 11/02/18at 16:53; Admin Dose 5,200 UNIT; Start 10/24/18 at 22:30 Sodium Chloride 250 ml @ 250 mls/hr Q1H PRN IV tachycardia Last administered on 10/25/18 02:24; Admin Dose 250 MLS/HR; Start 10/25/18 at 01:00 Diphenhydramine HCl (Benadryl) 25 mg Q6H PRN IV ALLERGIC REACTION Last administered on 11/03/18 11:00; Admin Dose 25 MG; Start 10/25/18 at 01:00 Acetaminophen (Tylenol Tab) 650 mg Q4 PRN PO FEVER Last administered on 10/29/18 t 18:43; Admin Dose 650 MG; Start 10/25/18 at 01:00 Sevelamer Carbonate (Renvela) 800 mg WITH MEALS PO Last administered on 11/02/18 17:23; Admin Dose 800 MG; Start 10/25/18 at 07:35 Midodrine (Proamatine) 5 mg TID@09,13,17 PO Last administered on 11/03/18 08:55; Admin Dose 5 MG; Start 10/26/18 at 09:00 Lidocaine (Xylocaine 1% (Mdv) 20 ml) 1 ml WITH DIALYSIS PRN INJ PRIOR TO CANULLATION/HD; Start 10/26/18 at 12:30 Ondansetron HCl (Zofran Inj) 4 mg Q4H PRN IV NAUSEA AND/OR VOMITING Last administered on 11/01/18at 14:06; Admin Dose 4 MG; Start 10/26/18 at 15:30 Morphine Sulfate (morphine) 2 mg Q4H PRN IV SEVERE PAIN LEVEL 7-10 Last administered on 11/03/18at 09:12; Admin Dose 2 MG; Start 10/26/18 at 15:30 Epoetin Maxwell-epbx (Retacrit (Esrd)) 10,000 unit MoWeFr@1700 SC Last administered on 11/02/18at 17:33; Admin Dose 10,000 UNIT; Start 10/28/18 at 17:00 Oxacillin Sodium 2 gm/Sodium Chloride 50 ml @ 100 mls/hr Q6 IVPB Last administered on 11/03/18at 05:57; Admin Dose 100 MLS/HR; Start 10/30/18 at 18:00 Mupirocin (Bactroban) 1 applic BID TOP Last administered on 11/03/18at 08:55; Admin Dose 1 APPLIC; Start 11/02/18 at 13:30 Meds reviewed: Yes Allergies Coded Allergies: cefazolin (Verified Allergy, Severe, SEVERE ABDOMINAL PAIN, ITCHINESS, 10/30/18) vancomycin (Unverified Allergy, Severe, 10/24/18) pruritus Allergies Reviewed: Yes Labs/Studies Labs Reviewed: Reviewed by anesthesiologist Result Diagram: 11/03/18 0602 11/03/18 0602 Laboratory Tests 11/03/18 06:02 test: Negative Pre-procedure Exam Last vitals Vital Signs Date Temp Pulse Resp B/P (MAP) Pulse Ox O2 O2 Flow FiO2 Time Delivery Rate 11/03/18 98.1 89 18 130/50 97 11:12 (76) 11/02/18 Room Air 23:47 Airway: Adequate mouth opening Mallampati: Mallampati II Teeth: Normal Lung: Normal Heart: Normal ASA Physical Status ASA physical status: 3 Emergency: None Planned Anesthetic General/MAC: MAC Pre-operative Attestations Prior to commencing anesthesia and surgery, the patient was re-evaluated, there was verification of: *The patient's identity *The results of appropriate recent lab work and preoperative vital signs *The above evaluation not changing prior to induction *Anesthetic plan, risk benefits, alternative and complications discussed with patient/family; questions answered; patient/family understands, accepts and wishes to proceed. BRENDA MAYA Nov 03, 2018 13:21
--- NOTE | 2018-11-03 13:27 | CONS ---
Assessment/Plan Assessment/Plan Assessment/Plan (Daily) 1. Septic shock s/p Levophed 2. ESRD on HD MWF schedule , left femoral permacath for HD access 3. Bacteremia with Blood cx growing staph aureus 4. H/o Leukemia currently on chemotherapy, last chem on 10/21/18 5. H/o Primary hyperparathyroidism, status post complete parathyroidectomy and partial left thyroid lobectomy 2 years ago. 6. H/o Anemia of ESRD 7, Difficult vascular Access Plan: s/p HD yestrerday 3 L removed, , , now BP stable -, pt regular schedule for HD is MWF, HD ordered for Wednesday staph aureus bacteremia - IV abx oxacillin 2 gram IV Q 6 hr - ID following, pt is very difficult vascular access- only access she had is left groin permacath Continue other home medications, Midodrine 5 mg PO TID for BP support will follow up Consultation Date/Type/Reason Admit Date/Time Oct 25, 2018 at 04:13 Initial Consult Date Type of Consult NEPHROLOGY Requesting Provider: LUANNE WALTER MD Date/Time of Note DATE: 11/03/18 TIME: 13:27 24 HR Interval Summary Free Text/Dictation s/p HD yesterday 3 L removed, afebrile, on IV oxacillin Exam/Review of Systems Exam Vitals Vital Signs Date Temp Pulse Resp B/P (MAP) Pulse Ox O2 O2 Flow FiO2 Time Delivery Rate 11/03/18 98.1 89 18 130/50 97 11:12 (76) 11/02/18 Room Air 23:47 Intake and Output 11/02/18 11/02/18 11/03/18 1414:59 22:59 06:59 IntakeIntake Total 300 ml 600 ml OutputOutput Total 4000 ml BalanceBalance -3700 ml 600 ml Exam Constitutional: alert, awake, no acute distress Respiratory: clear to auscultation Cardiovascular: regular rate and rhythm Gastrointestinal: soft, non-tender Musculoskeletal: nl extremities to inspection Extremities: normal pulses 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: nl mental status Additional Comments Left femoral hemodialysis catheter, left upper extremity AV fistula nonfunctional Results Result Diagram: 11/03/18 0602 11/03/18 0602 Results 24hrs Laboratory Tests Test 11/03/18 06:02 11/03/18 06:03 White Blood Count 8.8 Red Blood Count 4.15 #L Hemoglobin 12.7 # Hematocrit 40.7 # Mean Corpuscular Volume 98.1 Mean Corpuscular Hemoglobin 30.6 Mean Corpuscular Hemoglobin Concent 31.2 L Red Cell Distribution Width 16.6 H Platelet Count 378 # Mean Platelet Volume 9.9 Immature Granulocytes % 0.500 H Neutrophils % 75.8 Lymphocytes % 13.7 L Monocytes % 6.6 Eosinophils % 2.5 Basophils % 0.9 Nucleated Red Blood Cells % 0.0 Immature Granulocytes # 0.040 H Neutrophils # 6.7 Lymphocytes # 1.2 Monocytes # 0.6 Eosinophils # 0.2 Basophils # 0.1 Nucleated Red Blood Cells # 0.0 Sodium Level 146 H Potassium Level 5.6 H Chloride Level 108 Carbon Dioxide Level 22 Anion Gap 16 H Blood Urea Nitrogen 29 H Creatinine 7.74 H Est Glomerular Filtrat Rate mL/min 6 L Glucose Level 78 Calcium Level 9.5 Prothrombin Time 16.0 H Prothrombin Time Ratio 1.3 INR International Normalized Ratio 1.27 Medications Medication Current Medications Albumin Human 100 ml @ 100 mls/hr WITH DIALYSIS PRN IV SBP <90 DURING DIALYSIS Last administered on 10/24/18 21:00; Admin Dose 100 MLS/HR; Start 10/24/18 at 18:00 Heparin Sodium (Porcine) (Heparin (1000 Units/ml)) 5,200 unit AFTER DIALYSIS CATHETER Last administered on 11/02/18 16:53; Admin Dose 5,200 UNIT; Start 10/24/18 at 22:30 Sodium Chloride 250 ml @ 250 mls/hr Q1H PRN IV tachycardia Last administered on 10/25/18 02:24; Admin Dose 250 MLS/HR; Start 10/25/18 at 01:00 Diphenhydramine HCl (Benadryl) 25 mg Q6H PRN IV ALLERGIC REACTION Last administered on 11/03/18 11:00; Admin Dose 25 MG; Start 10/25/18 at 01:00 Acetaminophen (Tylenol Tab) 650 mg Q4 PRN PO FEVER Last administered on 10/29/18 18:43; Admin Dose 650 MG; Start 10/25/18 at 01:00 Sevelamer Carbonate (Renvela) 800 mg WITH MEALS PO Last administered on 11/02/18 17:23; Admin Dose 800 MG; Start 10/25/18 at 07:35 Midodrine (Proamatine) 5 mg TID@09,13,17 PO Last administered on 11/03/18 08:55; Admin Dose 5 MG; Start 10/26/18 at 09:00 Lidocaine (Xylocaine 1% (Mdv) 20 ml) 1 ml WITH DIALYSIS PRN INJ PRIOR TO CANULLATION/HD; Start 10/26/18 at 12:30 Ondansetron HCl (Zofran Inj) 4 mg Q4H PRN IV NAUSEA AND/OR VOMITING Last administered on 11/01/18 14:06; Admin Dose 4 MG; Start 10/26/18 at 15:30 Morphine Sulfate (morphine) 2 mg Q4H PRN IV SEVERE PAIN LEVEL 7-10 Last administered on 11/03/18 09:12; Admin Dose 2 MG; Start 10/26/18 at 15:30 Epoetin Maxwell-epbx (Retacrit (Esrd)) 10,000 unit MoWeFr@1700 SC Last administered on 11/02/18 17:33; Admin Dose 10,000 UNIT; Start 10/28/18 at 17:00 Oxacillin Sodium 2 gm/Sodium Chloride 50 ml @ 100 mls/hr Q6 IVPB Last administered on 11/03/18 05:57; Admin Dose 100 MLS/HR; Start 10/30/18 at 18:00 Mupirocin (Bactroban) 1 applic BID TOP Last administered on 11/03/18 08:55; Admin Dose 1 APPLIC; Start 11/02/18 at 13:30 HENRIQUE GRANADO MD Nov 03, 2018 13:27
--- NOTE | 2018-11-03 13:39 | PN ---
Date/Time of Note Date/Time of Note DATE: 11/03/18 TIME: 13:33 Assessment/Plan VTE Prophylaxis Risk score (from Ns)>0 risk: 4 SCD applied (from Ns): Yes Pharmacological prophylaxis: NA/contraindicated Pharm contraindication: surgical contra Lines/Catheters [facility] Mid Line Central line still needed: Yes Urinary Cath still in place: No Assessment/Plan Hospital Course Patient is undergoing AMANDA n.p.o. after midnight, no repeat events reported prior to procedure. Assessment/Plan -Sepsis with DIMITRI bacteremia with fevers, leukocytosis, and hypotension. patient is currently continued on oxacillin 2 g every 6 hours Continue antibiotics per ID. Dr. Arora is following in ID consultation. Pending AMANDA. Dr. Barrera is following in cardiology consultation. -Hemodialysis dependent end-stage renal disease, continue dialysis per nephrology. Dr. Beltran is following in nephrology consultation. -Leukemia, patient is undergoing chemotherapy last chemo was on Wednesday10/11/18. -Anemia multifactorial chronic disease and recent chemo, status post blood transfusion, continue to monitor H&H, continue Epogen. -Mineral bone disease with renal osteodystrophy. No acute fractures, traumatic subluxations, osteomyelitis or diskitis per MRI of the lumbar spine. -Primary hyperparathyroidism, status post complete parathyroidectomy and partial left thyroid lobectomy 2 years ago. -Left femoral hemodialysis catheter present on admission. Further recommendations based on clinical course. Plan of care discussed with Dr. Turner. Result Diagram: 11/03/18 0602 11/03/18 0602 Results 24hrs Laboratory Tests Test 11/03/18 06:02 11/03/18 06:03 White Blood Count 8.8 Red Blood Count 4.15 #L Hemoglobin 12.7 # Hematocrit 40.7 # Mean Corpuscular Volume 98.1 Mean Corpuscular Hemoglobin 30.6 Mean Corpuscular Hemoglobin Concent 31.2 L Red Cell Distribution Width 16.6 H Platelet Count 378 # Mean Platelet Volume 9.9 Immature Granulocytes % 0.500 H Neutrophils % 75.8 Lymphocytes % 13.7 L Monocytes % 6.6 Eosinophils % 2.5 Basophils % 0.9 Nucleated Red Blood Cells % 0.0 Immature Granulocytes # 0.040 H Neutrophils # 6.7 Lymphocytes # 1.2 Monocytes # 0.6 Eosinophils # 0.2 Basophils # 0.1 Nucleated Red Blood Cells # 0.0 Sodium Level 146 H Potassium Level 5.6 H Chloride Level 108 Carbon Dioxide Level 22 Anion Gap 16 H Blood Urea Nitrogen 29 H Creatinine 7.74 H Est Glomerular Filtrat Rate mL/min 6 L Glucose Level 78 Calcium Level 9.5 Prothrombin Time 16.0 H Prothrombin Time Ratio 1.3 INR International Normalized Ratio 1.27 Exam/Review of Systems Exam Vitals Vital Signs Date Temp Pulse Resp B/P (MAP) Pulse Ox O2 O2 Flow FiO2 Time Delivery Rate 11/03/18 98.1 89 18 130/50 97 11:12 (76) 11/02/18 Room Air 23:47 Intake and Output 11/02/18 11/02/18 11/03/18 1515:00 23:00 07:00 IntakeIntake Total 300 ml 600 ml OutputOutput Total 4000 ml BalanceBalance -3700 ml 600 ml Exam Constitutional: alert Respiratory: clear to auscultation Cardiovascular: regular rate and rhythm Gastrointestinal: soft, non-tender Musculoskeletal: nl extremities to inspection Extremities: normal pulses 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: nl mental status Skin: nl turgor Additional Comments Left femoral hemodialysis catheter, left upper extremity AV fistula nonfunctional Results Results 24hrs Laboratory Tests Test 11/03/18 06:02 11/03/18 06:03 White Blood Count 8.8 Red Blood Count 4.15 #L Hemoglobin 12.7 # Hematocrit 40.7 # Mean Corpuscular Volume 98.1 Mean Corpuscular Hemoglobin 30.6 Mean Corpuscular Hemoglobin Concent 31.2 L Red Cell Distribution Width 16.6 H Platelet Count 378 # Mean Platelet Volume 9.9 Immature Granulocytes % 0.500 H Neutrophils % 75.8 Lymphocytes % 13.7 L Monocytes % 6.6 Eosinophils % 2.5 Basophils % 0.9 Nucleated Red Blood Cells % 0.0 Immature Granulocytes # 0.040 H Neutrophils # 6.7 Lymphocytes # 1.2 Monocytes # 0.6 Eosinophils # 0.2 Basophils # 0.1 Nucleated Red Blood Cells # 0.0 Sodium Level 146 H Potassium Level 5.6 H Chloride Level 108 Carbon Dioxide Level 22 Anion Gap 16 H Blood Urea Nitrogen 29 H Creatinine 7.74 H Est Glomerular Filtrat Rate mL/min 6 L Glucose Level 78 Calcium Level 9.5 Prothrombin Time 16.0 H Prothrombin Time Ratio 1.3 INR International Normalized Ratio 1.27 Medications Medication Current Medications Albumin Human 100 ml @ 100 mls/hr WITH DIALYSIS PRN IV SBP <90 DURING DIALYSIS Last administered on 10/24/18 21:00; Admin Dose 100 MLS/HR; Start 10/24/18 at 18:00 Heparin Sodium (Porcine) (Heparin (1000 Units/ml)) 5,200 unit AFTER DIALYSIS CATHETER Last administered on 11/02/18 16:53; Admin Dose 5,200 UNIT; Start 10/24/18 at 22:30 Sodium Chloride 250 ml @ 250 mls/hr Q1H PRN IV tachycardia Last administered on 10/25/18 02:24; Admin Dose 250 MLS/HR; Start 10/25/18 at 01:00 Diphenhydramine HCl (Benadryl) 25 mg Q6H PRN IV ALLERGIC REACTION Last administered on 11/03/18 11:00; Admin Dose 25 MG; Start 10/25/18 at 01:00 Acetaminophen (Tylenol Tab) 650 mg Q4 PRN PO FEVER Last administered on 10/29/18 18:43; Admin Dose 650 MG; Start 10/25/18 at 01:00 Sevelamer Carbonate (Renvela) 800 mg WITH MEALS PO Last administered on 11/02/18 17:23; Admin Dose 800 MG; Start 10/25/18 at 07:35 Midodrine (Proamatine) 5 mg TID@09,13,17 PO Last administered on 11/03/18 08: 55; Admin Dose 5 MG; Start 10/26/18 at 09:00 Lidocaine (Xylocaine 1% (Mdv) 20 ml) 1 ml WITH DIALYSIS PRN INJ PRIOR TO CANULLATION/HD; Start 10/26/18 at 12:30 Ondansetron HCl (Zofran Inj) 4 mg Q4H PRN IV NAUSEA AND/OR VOMITING Last administered on 11/01/18 14:06; Admin Dose 4 MG; Start 10/26/18 at 15:30 Morphine Sulfate (morphine) 2 mg Q4H PRN IV SEVERE PAIN LEVEL 7-10 Last administered on 11/03/18 09:12; Admin Dose 2 MG; Start 10/26/18 at 15:30 Epoetin Maxwell-epbx (Retacrit (Esrd)) 10,000 unit MoWeFr@1700 SC Last administered on 11/02/18at 17:33; Admin Dose 10,000 UNIT; Start 10/28/18 at 17:00 Oxacillin Sodium 2 gm/Sodium Chloride 50 ml @ 100 mls/hr Q6 IVPB Last administered on 11/03/18at 05:57; Admin Dose 100 MLS/HR; Start 10/30/18 at 18:00 Mupirocin (Bactroban) 1 applic BID TOP Last administered on 11/03/18at 08:55; Admin Dose 1 APPLIC; Start 11/02/18 at 13:30 ERICK ROBERTSON Nov 03, 2018 13:38
--- NOTE | 2018-11-03 13:53 | CONS ---
Assessment/Plan Assessment/Plan Hospital Course (Demo Recall) IMPRESSION: 1. Bacteremia, assess for endocarditis, intracardiac source of infection. 2. Abnormal electrocardiogram with lateral T-wave inversion. 3. Hypertension, mainly diastolic labile, currently improved. 4. Leukemia. 5. Anemia. 6. Possible hypotension. Initially with midodrine- now improved Recc: -Tele -continue abx's and f/u cx data -AMANDA today to assess for intracardiac source of infection Consultation Date/Type/Reason Admit Date/Time Oct 25, 2018 at 04:13 Initial Consult Date 10/25/18 Type of Consult Cardiology Reason for Consultation bacteremia Requesting Provider: LUANNE WALTER MD Date/Time of Note DATE: 11/03/18 TIME: 13:51 Exam/Review of Systems Vital Signs Vitals Vital Signs Date Temp Pulse Resp B/P (MAP) Pulse Ox O2 O2 Flow FiO2 Time Delivery Rate 11/03/18 98.1 89 18 130/50 97 11:12 (76) 11/02/18 Room Air 23:47 Intake and Output 11/02/18 11/02/18 11/03/18 1515:00 23:00 07:00 IntakeIntake Total 300 ml 600 ml OutputOutput Total 4000 ml BalanceBalance -3700 ml 600 ml Exam Exam Review of Systems: CONSTITUTIONAL: No fevers, chills. PULMONARY: No sob CARDIOVASCULAR: No chest pain/palpitations GASTROINTESTINAL: No nausea/vomiting. GENITOURINARY: No hematuria/dysuria. MUSCULOSKELETAL: No myagias/arthalgias. PSYCHIATRIC: The patient denies depression. NEUROLOGIC: No weakness Constitutional: alert Psych: no complaints Head: normocephalic ENMT: mucosa pink and moist Neck: supple, jvd (9 cm water) Respiratory: clear to auscultation Cardiovascular: regular rate and rhythm Gastrointestinal: soft, non-tender Musculoskeletal: muscle tone (normal) Extremities: edema (none) 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: other (No focal deficits) Labs Result Diagram: 11/03/18 0602 11/03/18 0602 Results 24hrs Laboratory Tests Test 11/03/18 06:02 11/03/18 06:03 White Blood Count 8.8 Red Blood Count 4.15 #L Hemoglobin 12.7 # Hematocrit 40.7 # Mean Corpuscular Volume 98.1 Mean Corpuscular Hemoglobin 30.6 Mean Corpuscular Hemoglobin Concent 31.2 L Red Cell Distribution Width 16.6 H Platelet Count 378 # Mean Platelet Volume 9.9 Immature Granulocytes % 0.500 H Neutrophils % 75.8 Lymphocytes % 13.7 L Monocytes % 6.6 Eosinophils % 2.5 Basophils % 0.9 Nucleated Red Blood Cells % 0.0 Immature Granulocytes # 0.040 H Neutrophils # 6.7 Lymphocytes # 1.2 Monocytes # 0.6 Eosinophils # 0.2 Basophils # 0.1 Nucleated Red Blood Cells # 0.0 Sodium Level 146 H Potassium Level 5.6 H Chloride Level 108 Carbon Dioxide Level 22 Anion Gap 16 H Blood Urea Nitrogen 29 H Creatinine 7.74 H Est Glomerular Filtrat Rate mL/min 6 L Glucose Level 78 Calcium Level 9.5 Prothrombin Time 16.0 H Prothrombin Time Ratio 1.3 INR International Normalized Ratio 1.27 Medications Medications Current Medications Albumin Human 100 ml @ 100 mls/hr WITH DIALYSIS PRN IV SBP <90 DURING DIALYSIS Last administered on 10/24/18 21:00; Admin Dose 100 MLS/HR; Start 10/24/18 at 18:00 Heparin Sodium (Porcine) (Heparin (1000 Units/ml)) 5,200 unit AFTER DIALYSIS CATHETER Last administered on 11/02/18 16:53; Admin Dose 5,200 UNIT; Start 10/24/18 at 22:30 Sodium Chloride 250 ml @ 250 mls/hr Q1H PRN IV tachycardia Last administered on 10/25/18 02:24; Admin Dose 250 MLS/HR; Start 10/25/18 at 01:00 Diphenhydramine HCl (Benadryl) 25 mg Q6H PRN IV ALLERGIC REACTION Last administered on 11/03/18 11:00; Admin Dose 25 MG; Start 10/25/18 at 01:00 Acetaminophen (Tylenol Tab) 650 mg Q4 PRN PO FEVER Last administered on 10/29/18 18:43; Admin Dose 650 MG; Start 10/25/18 at 01:00 Sevelamer Carbonate (Renvela) 800 mg WITH MEALS PO Last administered on 11/02/18 17:23; Admin Dose 800 MG; Start 10/25/18 at 07:35 Midodrine (Proamatine) 5 mg TID@09,13,17 PO Last administered on 11/03/18 08:55; Admin Dose 5 MG; Start 10/26/18 at 09:00 Lidocaine (Xylocaine 1% (Mdv) 20 ml) 1 ml WITH DIALYSIS PRN INJ PRIOR TO CANULLATION/HD; Start 10/26/18 at 12:30 Ondansetron HCl (Zofran Inj) 4 mg Q4H PRN IV NAUSEA AND/OR VOMITING Last administered on 11/01/18at 14:06; Admin Dose 4 MG; Start 10/26/18 at 15:30 Morphine Sulfate (morphine) 2 mg Q4H PRN IV SEVERE PAIN LEVEL 7-10 Last administered on 11/03/18 09:12; Admin Dose 2 MG; Start 10/26/18 at 15:30 Epoetin Maxwell-epbx (Retacrit (Esrd)) 10,000 unit MoWeFr@1700 SC Last administered on 11/02/18 17:33; Admin Dose 10,000 UNIT; Start 10/28/18 at 17:00 Oxacillin Sodium 2 gm/Sodium Chloride 50 ml @ 100 mls/hr Q6 IVPB Last administered on 11/03/18 05:57; Admin Dose 100 MLS/HR; Start 10/30/18 at 18:00 Mupirocin (Bactroban) 1 applic BID TOP Last administered on 11/03/18 08:55; Admin Dose 1 APPLIC; Start 11/02/18 at 13:30 HENRIQUE GARCIA Nov 03, 2018 13:53
--- NOTE | 2018-11-03 13:55 | PAC ---
Date/Time of Note Date/Time of Note DATE: 11/03/18 TIME: 13:55 Post-Anesthesia Notes Post-Anesthesia Note Last documented vital signs Vital Signs Date Temp Pulse Resp B/P (MAP) Pulse Ox O2 O2 Flow FiO2 Time Delivery Rate 11/03/18 98.1 89 18 130/50 97 11:12 (76) 11/02/18 Room Air 23:47 Activity: WNL Respiratory function: WNL Cardiovascular function: WNL Mental status: Baseline Pain reasonably controlled: Yes Hydration appropriate: Yes Nausea/Vomiting absent: Yes BRENDA MAYA Nov 03, 2018 13:55
--- NOTE | 2018-11-03 13:55 | SIPON ---
Date/Time of Note Date/Time of Note DATE: 11/03/18 TIME: 13:54 Operative Report Preoperative Diagnosis 1.Bacteremia Postoperative Diagnosis 1.No definite findings of valvular vegetations Operation/Procedure Performed 1.AMANDA Surgeon see signature line portfolio assistant 1.Red Anesthesia: MAC Estimated blood loss: none Transfusion Required none Specimen none Grafts/Implants none Complications none HENRIQUE GARCIA Nov 03, 2018 13:55
[2018-11-03 14:50] VITALS: BP 111/69; PULSE 69; RESP 18
--- NOTE | 2018-11-03 18:24 | CONS ---
[facility] HCIS Consult Follow-up Patient Name: Maria Luisa Lakhani Unit Number: [id number] Date of : 1985 Patient Status: Admitted Inpatient Attending Doctor: Pawan Walter MD Edit: GINGER LEONE M.D. on 11/05/18 @ 02:51 Sulema: I discussed the management with YOKASTA Bueno and agree Assessment/Plan Assessment/Plan Hospital Course (Demo Recall) # sepsis, heme/onc - sepsis due to bacteremia, recurrent - persistent bacteremia on 10/24, 10/25, and 10/26 due to MSSA, recurrent; repeat blood cultures on 10/28 were negative; transthoracic echo does not mention vegetation; AMANDA shows no vegetation - h/o transthoracic echo on 07/19/2018, no e/o endocarditis - placement of HD catheter on L groin in 09/2018. Per P, she had pruritus, "bumps" and green discharge from the catheter site. Its culture on 10/31/2018 grew S. aureus - s/p removal of permacath on R chest wall on 07/14/2018 - s/p R femoral HD justin catheter placement 07/14/2018, replaced by HD permacath 07/19/2018 - pain/increased sensitivity of R groin after replacement of the Perez with permacath. 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 Last used for HD in 04/2018. Was scheduled to get a new graft in [facility] as outpatient - h/o swelling on the scalp and chest wall, possibly due to collateral veins as a result of thrombosis of AVF - hypotension after HD - h/o recurrent infection of HD catheter site/HD catheter - h/o removal and placement of a new Perez catheter in 05/2018. The culture of the tip of the removed catheter, blood cultures and swab of the catheter site were negative. Pt completed an empiric course of renally dosed pip/tazo (06/13/2018-06/18/2018) - h/o placement of a permacath on R chest wall on 06/23/2018 - h/o creation of AVF in E in 2016 - h/o 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 Her last cycle was in early 2018 - MRI of L spine did not show e/o spinal infection --S/p Cefazolin (10/27/2018-10/30/18) # GI/ - biliary colic, N&E, intermittent: according to Pt, she had received authorization for elective cholecystectomy as outpatient - h/o MRCP in 07/2017: negative for cholelithiasis or cholecystitis - amenorrhea since AVF creation in 2016 # renal/endo - ESRD on HD - primary hyperparathyroidism - h/o subtotal parathyroidectomy of R superior and inferior glands and partial L inferior gland in 06/2016 - h/o complete parathyroidectomy and partial L thyroid lobectomy in 11/2016 - 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 Pt took renally dosed valACV (07/15/2018-07/17/2018) - adverse reaction to vancomycin (pruritus) - adverse reaction to linezolid (thrombocytopenia). Linezolid was discontinued (06/12/2018-06/17/2018) - ?adverse reaction to cefazolin (severe abd pain/cramping, although pt tolerated a 14 day course of cefazolin in 06/2018) - painful nodule on L hand; X-ray shows possible subcutaneous mass adjacent to the radial aspect of the first metacarpal. Recommendations: - WBC tagged scan (planned for Wednesday) to investigate a source of her repeat bacteremia or its complications - We recommend d/c HD catheter because the "greenish pus" at the site grew S. aureus - Continue renally dosed oxacillin 2gm IV q6 hours (10/30/2018-) - Consider MRI L hand vs Ortho/Hand specialist eval Management d/w patient, BRIANA Rea, and with Dr. Leone. I asked pt's nurse to apply new dressing to L femoral HD catheter site. Consultation Date/Type/Reason Admit Date/Time Oct 25, 2018 at 04:13 Initial Consult Date 10/25/18 Type of Consult Infectious Disease Requesting Provider: PAWAN WALTER MD Date/Time of Note DATE: 11/03/18 TIME: 18:22 24 HR Interval Summary Free Text/Dictation AMANDA negative for endocarditis. WBC scan planned for Wednesday. C/o generalized bone pain therese to low back and L thumb. Pain is tolerable rating 3/10 after pain med. Pt reports itching and tenderness near L groin HD catheter . Exam/Review of Systems Exam Vitals Vital Signs Date Temp Pulse Resp B/P (MAP) Pulse Ox O2 O2 Flow FiO2 Time Delivery Rate 11/03/18 98.1 69 18 111/69 96 14:50 (83) 11/02/18 Room Air 23:47 Intake and Output 11/02/18 11/02/18 11/03/18 1515:00 23:00 07:00 IntakeIntake Total 300 ml 600 ml OutputOutput Total 4000 ml BalanceBalance -3700 ml 600 ml Constitutional: alert, oriented, well developed, frail Psych: no complaints Head: normocephalic, atraumatic, other (alopecia) Eyes: nl conjunctiva, nl lids ENMT: nl external ears & nose, nl lips & teeth, nl nasal mucosa & septum, mucosa pink and moist Neck: supple Respiratory: clear to auscultation, normal air movement Cardiovascular: regular rate and rhythm, nl pulses Gastrointestinal: soft, non-tender; No distended Genitourinary - Female: other (dry skin groin area; L fem HD catheter with dressing loosely covering it; few tiny scabs noted with faint erythema with pt scratching the area) Musculoskeletal: nl extremities to inspection, swelling (L thumb with palpable nodule that is TTP) Extremities: normal pulses; No edema 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: nl mental status, nl speech Skin: nl turgor, rash or lesions, other (few tattos) Results Result Diagram: 11/03/18 0602 11/03/18 0602 Results 24hrs Laboratory Tests Test 11/03/18 06:02 11/03/18 06:03 White Blood Count 8.8 Red Blood Count 4.15 #L Hemoglobin 12.7 # Hematocrit 40.7 # Mean Corpuscular Volume 98.1 Mean Corpuscular Hemoglobin 30.6 Mean Corpuscular Hemoglobin Concent 31.2 L Red Cell Distribution Width 16.6 H Platelet Count 378 # Mean Platelet Volume 9.9 Immature Granulocytes % 0.500 H Neutrophils % 75.8 Lymphocytes % 13.7 L Monocytes % 6.6 Eosinophils % 2.5 Basophils % 0.9 Nucleated Red Blood Cells % 0.0 Immature Granulocytes # 0.040 H Neutrophils # 6.7 Lymphocytes # 1.2 Monocytes # 0.6 Eosinophils # 0.2 Basophils # 0.1 Nucleated Red Blood Cells # 0.0 Sodium Level 146 H Potassium Level 5.6 H Chloride Level 108 Carbon Dioxide Level 22 Anion Gap 16 H Blood Urea Nitrogen 29 H Creatinine 7.74 H Est Glomerular Filtrat Rate mL/min 6 L Glucose Level 78 Calcium Level 9.5 Prothrombin Time 16.0 H Prothrombin Time Ratio 1.3 INR International Normalized Ratio 1.27 Imaging Imaging L hand x-ray 11/02/2018: 1. Possible subcutaneous mass adjacent to the radial aspect of the first metacarpal. If palpable, consider MRI for further evaluation and characterization. 2. No evidence for fracture, subluxation, or dislocation. 3. No evidence for erosive change. Medications Medication Current Medications Albumin Human 100 ml @ 100 mls/hr WITH DIALYSIS PRN IV SBP <90 DURING DIALYSIS Last administered on 10/24/18 21:00; Admin Dose 100 MLS/HR; Start 10/24/18 at 18:00 Heparin Sodium (Porcine) (Heparin (1000 Units/ml)) 5,200 unit AFTER DIALYSIS CATHETER Last administered on 11/02/18 16:53; Admin Dose 5,200 UNIT; Start 10/24/18 at 22:30 Sodium Chloride 250 ml @ 250 mls/hr Q1H PRN IV tachycardia Last administered on 10/25/18 02:24; Admin Dose 250 MLS/HR; Start 10/25/18 at 01:00 Diphenhydramine HCl (Benadryl) 25 mg Q6H PRN IV ALLERGIC REACTION Last administered on 11/03/18 16:55; Admin Dose 25 MG; Start 10/25/18 at 01:00 Acetaminophen (Tylenol Tab) 650 mg Q4 PRN PO FEVER Last administered on 10/29/18 18:43; Admin Dose 650 MG; Start 10/25/18 at 01:00 Sevelamer Carbonate (Renvela) 800 mg WITH MEALS PO Last administered on 11/03 16:50; Admin Dose 800 MG; Start 10/25/18 at 07:35 Midodrine (Proamatine) 5 mg TID@09,13,17 PO Last administered on 11/03/18 16:50; Admin Dose 5 MG; Start 10/26/18 at 09:00 Lidocaine (Xylocaine 1% (Mdv) 20 ml) 1 ml WITH DIALYSIS PRN INJ PRIOR TO CANULLATION/HD; Start 10/26/18 at 12:30 Ondansetron HCl (Zofran Inj) 4 mg Q4H PRN IV NAUSEA AND/OR VOMITING Last administered on 11/01/18 14:06; Admin Dose 4 MG; Start 10/26/18 at 15:30 Morphine Sulfate (morphine) 2 mg Q4H PRN IV SEVERE PAIN LEVEL 7-10 Last administered on 11/03/18 16:55; Admin Dose 2 MG; Start 10/26/18 at 15:30 Epoetin Maxwell-epbx (Retacrit (Esrd)) 10,000 unit MoWeFr@1700 SC Last administered on 11/02/18 17:33; Admin Dose 10,000 UNIT; Start 10/28/18 at 17:00 Oxacillin Sodium 2 gm/Sodium Chloride 50 ml @ 100 mls/hr Q6 IVPB Last administered on 11/03/18 16:50; Admin Dose 100 MLS/HR; Start 10/30/18 at 18:00 Mupirocin (Bactroban) 1 applic BID TOP Last administered on 11/03/18 08:55; Admin Dose 1 APPLIC; Start 11/02/18 at 13:30 EDIE BUENO NP Nov 03, 2018 18:24
[2018-11-03 20:00] VITALS: BP 104/65; PULSE 80; RESP 19
[2018-11-04] VITALS (18 sets, daily range): BP systolic 100–133; BP diastolic 51–97; PULSE 70–126; RESP 16–20
--- NOTE | 2018-11-04 01:36 | CARRPT ---
DATE OF PROCEDURE: 11/03/2018 TYPE OF PROCEDURE: 1. Transesophageal echo. 2. MAC anesthesia under direction of anesthesiologist at bedside. INDICATION: Bacteremia, assess for intracardiac source of infection or endocarditis. BRIEF HISTORY AND HOSPITAL COURSE: Ms. Lakhani is a 33-year-old female with history of leukemia who has had recurrent bouts of staph bacteremia. Most recently, had multiple cultures return positi ve and then had a culture that then returned negative, but given recurrent bacteremia a cardiology co nsult was requested to assess for intracardiac source of infection with transesophageal echo. DESCRIPTION OF PROCEDURE: After informed consent was obtained, the patient was [place] [facility] [place] where she was connected to continuous telemetry monitoring, bl ood pressure cuff cycling every 3 minutes, and continuous O2 saturation monitoring. The patient had a bite block placed in her mouth and the patient's esophagus was intubated using the transesophageal echo probe. Subsequently, using multiplanar imaging and color flow Doppler interrogation, the patien t's intracardiac structures were adequately interrogated and the transesophageal echo probe was remov ed. The patient was allowed to wake from anesthetized state following the procedure. There were no noted complications. FINDINGS: 1. No definite findings of left atrial or left atrial appendage thrombus or spontaneous contrast. L eft atrial appendage velocity of approximately 50 cm per second. 2. No definite findings of a patent foramen ovale or other interatrial septal defect by color flow D oppler interrogation of interatrial septum only. 3. Normal-appearing aortic valve apparatus. No aortic regurgitation. No valvular vegetations assoc iated with this valve apparatus. 4. Pulmonic apparatus somewhat poorly visualized. No definite vegetations associated with this valv e apparatus. 5. Normal-appearing mitral valve apparatus, trace mitral regurgitation, no definite valvular vegetat ion associated with this valve apparatus. 6. Mildly thickened tricuspid valve leaflets with mild tricuspid regurgitation, but no definite find ings of valvular vegetations associated with this valvular apparatus. 7. Minimal atherosclerotic plaquing in the patient's descending aorta. IMPRESSION: No definite findings of intracardiac source of infection or endocarditis. RECOMMENDATIONS: 1. At this time, we will allow patient to fully wake from anesthetized state. The patient will have sips of clear liquid and advance diet as tolerated back to full after approximately 2 hours of n.p.o . status. 2. We will continue the patient's antibiotics and continue to search for alternative source of infec tion, such as the patient's femoral line. Thank you for allowing me to take part in the care of this patient. Dictated By: HENRIQUE BATES/MIKE Conf#: [id number] DID#: [id number]
[2018-11-04] MEDS: morphine 2 MG INJ IV PRN ×4 (05:01→23:39)
[2018-11-04] MEDS: DIPHENHYDRAMINE 50 MG INJ IV PRN ×4 (05:01→23:39)
[2018-11-04] MEDS: OXACILLIN 2 GM in SOD CHLORIDE 0.9% 50 ML IVPB SCH ×4 (05:02→23:39)
[2018-11-04] MEDS: SEVELAMER CARBONATE 800 MG TABLET PO SCH ×3 (08:11→17:27)
[2018-11-04] MEDS: MIDODRINE 5 MG TAB PO SCH ×3 (08:11→17:27)
[2018-11-04] MEDS: MUPIROCIN 2% 22 GM OINT TOP SCH ×2 (08:12→21:00)
--- NOTE | 2018-11-04 11:54 | PN ---
Date/Time of Note Date/Time of Note DATE: 11/04/18 TIME: 11:47 Assessment/Plan VTE Prophylaxis [place] [facility] risk: 3 SCD applied [place] [facility] No SCD contraindicated: other Pharmacological prophylaxis: other Pharm contraindication: other Lines/Catheters [facility]from [facility] Mid Line Central line still needed: Yes Urinary Cath still in place: No Assessment/Plan Assessment/Plan -Sepsis with DIMITRI bacteremia with fevers, leukocytosis, and hypotension. patient is currently continued on oxacillin 2 g every 6 hours Continue antibiotics per ID. Dr. Arora is following in ID consultation. Pending AMANDA. Dr. Barrera is following in cardiology consultation. -Hemodialysis dependent end-stage renal disease, continue dialysis per nephrology. Dr. Beltran is following in nephrology consultation. -Leukemia, patient is undergoing chemotherapy last chemo was on Wednesday10/11/18. -Anemia multifactorial chronic disease and recent chemo, status post blood transfusion, continue to monitor H&H, continue Epogen. -Mineral bone disease with renal osteodystrophy. No acute fractures, traumatic subluxations, osteomyelitis or diskitis per MRI of the lumbar spine. -Primary hyperparathyroidism, status post complete parathyroidectomy and partial left thyroid lobectomy 2 years ago. -Left femoral hemodialysis catheter present on admission. Further recommendations based on clinical course. Plan of care discussed with Dr. Turner. Result Diagram: 11/04/18 0600 11/04/18 0600 Results 24hrs Laboratory Tests Test 11/04/18 06:00 White Blood Count 5.6 # Red Blood Count 3.43 L Hemoglobin 10.8 L Hematocrit 34.4 L Mean Corpuscular Volume 100.3 Mean Corpuscular Hemoglobin 31.5 Mean Corpuscular Hemoglobin Concent 31.4 L Red Cell Distribution Width 17.0 H Platelet Count 295 # Mean Platelet Volume 9.9 Immature Granulocytes % 0.400 Neutrophils % 57.4 Lymphocytes % 28.0 Monocytes % 9.3 Eosinophils % 3.8 Basophils % 1.1 Nucleated Red Blood Cells % 0.0 Immature Granulocytes # 0.020 Neutrophils # 3.2 Lymphocytes # 1.6 Monocytes # 0.5 Eosinophils # 0.2 Basophils # 0.1 Nucleated Red Blood Cells # 0.0 Sodium Level 145 H Potassium Level 5.4 H Chloride Level 106 Carbon Dioxide Level 23 Anion Gap 16 H Blood Urea Nitrogen 49 #H Creatinine 9.60 H Est Glomerular Filtrat Rate mL/min 5 L Glucose Level 74 Calcium Level 8.6 Subjective 24 Hr Interval Summary Free Text/Dictation - WBC scan tomorrow -c/o left hand- sp XRAY, will do MRI -Patient SP AMANDA - Dr aguirre - pending ; regarding possible removal of HD cath - Having HD today dw staff Eyes: no complaints ENT: no complaints Respiratory: no complaints Cardiovascular: no complaints Gastrointestinal: no complaints Genitourinary: no complaints Musculoskeletal: bone/joint pain, restricted range of motion Skin: no complaints Neurologic: no complaints Endocrine: no complaints Lymphatic: no complaints Exam/Review of Systems Exam Vitals Vital Signs Date Temp Pulse Resp B/P (MAP) Pulse Ox O2 O2 Flow FiO2 Time Delivery Rate 11/04/18 95 11:30 11/04/18 98.0 18 122/89 97 11:07 (100) 11/04/18 Room Air 10:47 Intake and Output 11/03/18 11/03/18 11/04/18 1515:00 23:00 07:00 IntakeIntake Total 400 ml BalanceBalance 400 ml Constitutional: alert, oriented, well developed Psych: nl mood/affect Head: normocephalic Eyes: nl lids, nl sclera ENMT: nl external ears & nose Neck: non-tender Respiratory: clear to auscultation Cardiovascular: nl pulses Gastrointestinal: soft, non-tender Musculoskeletal: range of motion 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: nl speech Skin: nl turgor Lymph: nontender Results Results 24hrs Laboratory Tests Test 11/04/18 06:00 White Blood Count 5.6 # Red Blood Count 3.43 L Hemoglobin 10.8 L Hematocrit 34.4 L Mean Corpuscular Volume 100.3 Mean Corpuscular Hemoglobin 31.5 Mean Corpuscular Hemoglobin Concent 31.4 L Red Cell Distribution Width 17.0 H Platelet Count 295 # Mean Platelet Volume 9.9 Immature Granulocytes % 0.400 Neutrophils % 57.4 Lymphocytes % 28.0 Monocytes % 9.3 Eosinophils % 3.8 Basophils % 1.1 Nucleated Red Blood Cells % 0.0 Immature Granulocytes # 0.020 Neutrophils # 3.2 Lymphocytes # 1.6 Monocytes # 0.5 Eosinophils # 0.2 Basophils # 0.1 Nucleated Red Blood Cells # 0.0 Sodium Level 145 H Potassium Level 5.4 H Chloride Level 106 Carbon Dioxide Level 23 Anion Gap 16 H Blood Urea Nitrogen 49 #H Creatinine 9.60 H Est Glomerular Filtrat Rate mL/min 5 L Glucose Level 74 Calcium Level 8.6 Medications Medication Current Medications Albumin Human 100 ml @ 100 mls/hr WITH DIALYSIS PRN IV SBP <90 DURING DIALYSIS Last administered on 10/24/18 21:00; Admin Dose 100 MLS/HR; Start 10/24/18 at 18:00 Heparin Sodium (Porcine) (Heparin (1000 Units/ml)) 5,200 unit AFTER DIALYSIS CATHETER Last administered on 11/02/18 16:53; Admin Dose 5,200 UNIT; Start 10/24/18 at 22:30 Sodium Chloride 250 ml @ 250 mls/hr Q1H PRN IV tachycardia Last administered on 10/25/18 02:24; Admin Dose 250 MLS/HR; Start 10/25/18 at 01:00 Diphenhydramine HCl (Benadryl) 25 mg Q6H PRN IV ALLERGIC REACTION Last administered on 11/04/18 11:09; Admin Dose 25 MG; Start 10/25/18 at 01:00 Acetaminophen (Tylenol Tab) 650 mg Q4 PRN PO FEVER Last administered on 10/29/18 at 18:43; Admin Dose 650 MG; Start 10/25/18 at 01:00 Sevelamer Carbonate (Renvela) 800 mg WITH MEALS PO Last administered on 11/04/18 08:11; Admin Dose 800 MG; Start 10/25/18 at 07:35 Midodrine (Proamatine) 5 mg TID@09,13,17 PO Last administered on 11/04/18 08:11; Admin Dose 5 MG; Start 10/26/18 at 09:00 Lidocaine (Xylocaine 1% (Mdv) 20 ml) 1 ml WITH DIALYSIS PRN INJ PRIOR TO CANULLATION/HD; Start 10/26/18 at 12:30 Ondansetron HCl (Zofran Inj) 4 mg Q4H PRN IV NAUSEA AND/OR VOMITING Last admini stered on 11/01/18 14:06; Admin Dose 4 MG; Start 10/26/18 at 15:30 Morphine Sulfate (morphine) 2 mg Q4H PRN IV SEVERE PAIN LEVEL 7-10 Last administered on 7/12/19at 11:08; Admin Dose 2 MG; Start 10/26/18 at 15:30 Epoetin Maxwell-epbx (Retacrit (Esrd)) 10,000 unit MoWeFr@1700 SC Last administered on 11/02/18at 17:33; Admin Dose 10,000 UNIT; Start 10/28/18 at 17:00 Oxacillin Sodium 2 gm/Sodium Chloride 50 ml @ 100 mls/hr Q6 IVPB Last administered on 11/04/18 05:02; Admin Dose 100 MLS/HR; Start 10/30/18 at 18:00 Mupirocin (Bactroban) 1 applic BID TOP Last administered on 11/04/18 08:12; Admin Dose 1 APPLIC; Start 11/02/18 at 13:30 EDILMA CASIANO Nov 04, 2018 11:54
--- NOTE | 2018-11-04 12:01 | CONS ---
Assessment/Plan Assessment/Plan Assessment/Plan (Daily) 1. Septic shock s/p Levophed 2. ESRD on HD MWF schedule , left femoral permacath for HD access 3. Bacteremia with Blood cx growing staph aureus 4. H/o Leukemia currently on chemotherapy, last chem on 10/21/18 5. H/o Primary hyperparathyroidism, status post complete parathyroidectomy and partial left thyroid lobectomy 2 years ago. 6. H/o Anemia of ESRD 7, Difficult vascular Access Plan: s/p HD today 2.2 L removed, BP was stable but HR in 130s-, staph aureus bacteremia - IV abx oxacillin 2 gram IV Q 6 hr - ID following, will remove her left groin permacath today- Line free for 2 days then reinsertion of left groin permacath on Wednesday morning Continue other home medications, Midodrine 5 mg PO TID for BP support will keep pt on MWF schedule will follow up Consultation Date/Type/Reason Admit Date/Time Oct 25, 2018 at 04:13 Initial Consult Date Type of Consult NEPHROLOGY Requesting Provider: LUANNE WALTER MD Date/Time of Note DATE: 11/04/18 TIME: 12:01 24 HR Interval Summary Free Text/Dictation s/P HD today 2.2 L removed, BP stable, HR in 130s, pt afebrile, WBC normal Exam/Review of Systems Exam Vitals Vital Signs Date Temp Pulse Resp B/P (MAP) Pulse Ox O2 O2 Flow FiO2 Time Delivery Rate 11/04/18 96 11:45 11/04/18 98.0 18 122/89 97 11:07 (100) 11/04/18 Room Air 10:47 Intake and Output 11/03/18 11/03/18 11/04/18 1515:00 23:00 07:00 IntakeIntake Total 400 ml BalanceBalance 400 ml Exam Constitutional: alert, awake, no acute distress Respiratory: clear to auscultation Cardiovascular: regular rate and rhythm Gastrointestinal: soft, non-tender Musculoskeletal: nl extremities to inspection Extremities: normal pulses 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: nl mental status Additional Comments Left femoral hemodialysis catheter, left upper extremity AV fistula nonfunctional Results Result Diagram: 11/04/18 0600 11/04/18 0600 Results 24hrs Laboratory Tests Test 11/04/18 06:00 White Blood Count 5.6 # Red Blood Count 3.43 L Hemoglobin 10.8 L Hematocrit 34.4 L Mean Corpuscular Volume 100.3 Mean Corpuscular Hemoglobin 31.5 Mean Corpuscular Hemoglobin Concent 31.4 L Red Cell Distribution Width 17.0 H Platelet Count 295 # Mean Platelet Volume 9.9 Immature Granulocytes % 0.400 Neutrophils % 57.4 Lymphocytes % 28.0 Monocytes % 9.3 Eosinophils % 3.8 Basophils % 1.1 Nucleated Red Blood Cells % 0.0 Immature Granulocytes # 0.020 Neutrophils # 3.2 Lymphocytes # 1.6 Monocytes # 0.5 Eosinophils # 0.2 Basophils # 0.1 Nucleated Red Blood Cells # 0.0 Sodium Level 145 H Potassium Level 5.4 H Chloride Level 106 Carbon Dioxide Level 23 Anion Gap 16 H Blood Urea Nitrogen 49 #H Creatinine 9.60 H Est Glomerular Filtrat Rate mL/min 5 L Glucose Level 74 Calcium Level 8.6 Medications Medication Current Medications Albumin Human 100 ml @ 100 mls/hr WITH DIALYSIS PRN IV SBP <90 DURING DIALYSIS Last administered on 10/24/18 21:00; Admin Dose 100 MLS/HR; Start 10/24/18 at 18:00 Heparin Sodium (Porcine) (Heparin (1000 Units/ml)) 5,200 unit AFTER DIALYSIS CATHETER Last administered on 11/02/18 16:53; Admin Dose 5,200 UNIT; Start 10/24/18 at 22:30 Sodium Chloride 250 ml @ 250 mls/hr Q1H PRN IV tachycardia Last administered on 10/25/18 02:24; Admin Dose 250 MLS/HR; Start 10/25/18 at 01:00 Diphenhydramine HCl (Benadryl) 25 mg Q6H PRN IV ALLERGIC REACTION Last administered on 11/04/18 11:09; Admin Dose 25 MG; Start 10/25/18 at 01:00 Acetaminophen (Tylenol Tab) 650 mg Q4 PRN PO FEVER Last administered on 10/29/18 18:43; Admin Dose 650 MG; Start 10/25/18 at 01:00 Sevelamer Carbonate (Renvela) 800 mg WITH MEALS PO Last administered on 11/04/18 08:11; Admin Dose 800 MG; Start 10/25/18 at 07:35 Midodrine (Proamatine) 5 mg TID@,13,17 PO Last administered on 11/04/18 08:11; Admin Dose 5 MG; Start 10/26/18 at 09:00 Lidocaine (Xylocaine 1% (Mdv) 20 ml) 1 ml WITH DIALYSIS PRN INJ PRIOR TO CANULLATION/HD; Start 10/26/18 at 12:30 Ondansetron HCl (Zofran Inj) 4 mg Q4H PRN IV NAUSEA AND/OR VOMITING Last administered on 11/01/18 14:06; Admin Dose 4 MG; Start 10/26/18 at 15:30 Morphine Sulfate (morphine) 2 mg Q4H PRN IV SEVERE PAIN LEVEL 7-10 Last administered on 11/04/18 11:08; Admin Dose 2 MG; Start 10/26/18 at 15:30 Epoetin Maxwell-epbx (Retacrit (Esrd)) 10,000 unit MoWeFr@1700 SC Last administered on 11/02/18 17:33; Admin Dose 10,000 UNIT; Start 10/28/18 at 17:00 Oxacillin Sodium 2 gm/Sodium Chloride 50 ml @ 100 mls/hr Q6 IVPB Last administered on 11/04/18 05:02; Admin Dose 100 MLS/HR; Start 10/30/18 at 18:00 Mupirocin (Bactroban) 1 applic BID TOP Last administered on 11/04/18 08:12; Admin Dose 1 APPLIC; Start 11/02/18 at 13:30 EHNRIQUE GRANADO MD Nov 04, 2018 12:01
--- NOTE | 2018-11-04 12:06 | CONS ---
[facility] HCIS Consult Follow-up Patient Name: Maria Luisa Lakhani Unit Number: [id number] Date of : 1985 Patient Status: Admitted Inpatient Attending Doctor: Pawan Walter MD Edit: GINGER LEONE M.D. on 11/05/18 @ 02:53 Sulema: I discussed the management with YOKASTA Bueno and agree Assessment/Plan Assessment/Plan Hospital Course (Demo Recall) # sepsis, heme/onc - sepsis due to bacteremia, recurrent - persistent bacteremia on 10/24, 10/25, and 10/26 due to MSSA, recurrent; repeat blood cultures on 10/28 & 11/02 remains negative; transthoracic echo does not mention vegetation; AMANDA shows no vegetation - h/o transthoracic echo on 07/19/2018, no e/o endocarditis - placement of HD catheter on L groin in 09/2018. Per P, she had pruritus, "bumps" and green discharge from the catheter site. Its culture on 10/31/2018 grew S. aureus - s/p removal of permacath on R chest wall on 07/14/2018 - s/p R femoral HD justin catheter placement 07/14/2018, replaced by HD permacath 07/19/2018 - pain/increased sensitivity of R groin after replacement of the Perez with permacath. 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 Last used for HD in 04/2018. Was scheduled to get a new graft in [facility] as outpatient - h/o swelling on the scalp and chest wall, possibly due to collateral veins as a result of thrombosis of AVF - hypotension after HD - h/o recurrent infection of HD catheter site/HD catheter - h/o removal and placement of a new Perez catheter in 05/2018. The culture of the tip of the removed catheter, blood cultures and swab of the catheter site were negative. Pt completed an empiric course of renally dosed pip/tazo (06/13/2018-06/18/2018) - h/o placement of a permacath on R chest wall on 06/23/2018 - h/o creation of AVF in E in 2016 - h/o 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 Her last cycle was in early 2018 - MRI of L spine did not show e/o spinal infection --S/p Cefazolin (10/27/2018-10/30/18) # GI/ - biliary colic, N&E, intermittent: according to Pt, she had received authorization for elective cholecystectomy as outpatient - h/o MRCP in 07/2017: negative for cholelithiasis or cholecystitis - amenorrhea since AVF creation in 2016 # renal/endo - ESRD on HD - primary hyperparathyroidism - h/o subtotal parathyroidectomy of R superior and inferior glands and partial L inferior gland in 06/2016 - h/o complete parathyroidectomy and partial L thyroid lobectomy in 11/2016 - 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 Pt took renally dosed valACV (07/15/2018-07/17/2018) - adverse reaction to vancomycin (pruritus) - adverse reaction to linezolid (thrombocytopenia). Linezolid was discontinued (06/12/2018-06/17/2018) - ?adverse reaction to cefazolin (severe abd pain/cramping, although pt tolerated a 14 day course of cefazolin in 06/2018) - painful nodule on L thumb; X-ray shows possible subcutaneous mass adjacent to the radial aspect of the first metacarpal. Recommendations: - Awaiting WBC tagged scan to investigate a source of her repeat bacteremia or its complications - Agree with line holiday - We recommend d/c HD catheter because the "greenish pus" at the site grew S. aureus - Continue renally dosed oxacillin 2gm IV q6 hours (10/30/2018-) - Consider MRI L hand vs Ortho/Hand specialist eval. Defer to Primary team Management d/w patient, pt's daughter and mother at bedside, RN Celia, [employer] Festus, charge nurse Mamadou and with Dr. Leone. Consultation Date/Type/Reason Admit Date/Time Oct 25, 2018 at 04:13 Initial Consult Date 10/25/18 Type of Consult Infectious Disease Requesting Provider: PAWAN WALTER MD Date/Time of Note DATE: 11/04/18 TIME: 11:59 24 HR Interval Summary Free Text/Dictation Pt's daughter reports that pt was promised a food tray after AMANDA yesterday but she never got it. Family had to bring pt some food. Pt reports same generalized bone pain therese to back and L thumb. Currently pain is tolerable as pt recently received pain medication. Pt is scheduled to have WBC today per d/w charge nurse. Line holiday planned for Wednesday-Wednesday per review of orders. Exam/Review of Systems Exam Vitals Vital Signs Date Temp Pulse Resp B/P (MAP) Pulse Ox O2 O2 Flow FiO2 Time Delivery Rate 11/04/18 96 11:45 11/04/18 98.0 18 122/89 97 11:07 (100) 11/04/18 Room Air 10:47 Intake and Output 11/03/18 11/03/18 11/04/18 1515:00 23:00 07:00 IntakeIntake Total 400 ml BalanceBalance 400 ml Exam Constitutional: alert, oriented, well developed, other (thin; pt's daughter and mother are at bedside) Psych: no complaints Head: normocephalic, atraumatic, other (alopecia) Eyes: nl conjunctiva, nl lids ENMT: nl external ears & nose, nl lips & teeth, nl nasal mucosa & septum, mucosa pink and moist (no thrush) Neck: supple Respiratory: clear to auscultation, normal air movement No wheezing Cardiovascular: regular rate and rhythm, nl pulses Gastrointestinal: soft, non-tender; No distended Genitourinary - Female: other (dry skin groin area; L fem HD catheter currently in use for HD) Musculoskeletal: nl extremities to inspection, swelling (L thumb, 1st metacarpal, with palpable nodule that is TTP) Extremities: normal pulses, other (LUE old AVF) No edema 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: nl mental status, nl speech Skin: nl turgor, rash or lesions, other (few tattoos) Results Result Diagram: 11/04/18 0600 11/04/18 0600 Results 24hrs Laboratory Tests Test 11/04/18 06:00 White Blood Count 5.6 # Red Blood Count 3.43 L Hemoglobin 10.8 L Hematocrit 34.4 L Mean Corpuscular Volume 100.3 Mean Corpuscular Hemoglobin 31.5 Mean Corpuscular Hemoglobin Concent 31.4 L Red Cell Distribution Width 17.0 H Platelet Count 295 # Mean Platelet Volume 9.9 Immature Granulocytes % 0.400 Neutrophils % 57.4 Lymphocytes % 28.0 Monocytes % 9.3 Eosinophils % 3.8 Basophils % 1.1 Nucleated Red Blood Cells % 0.0 Immature Granulocytes # 0.020 Neutrophils # 3.2 Lymphocytes # 1.6 Monocytes # 0.5 Eosinophils # 0.2 Basophils # 0.1 Nucleated Red Blood Cells # 0.0 Sodium Level 145 H Potassium Level 5.4 H Chloride Level 106 Carbon Dioxide Level 23 Anion Gap 16 H Blood Urea Nitrogen 49 #H Creatinine 9.60 H Est Glomerular Filtrat Rate mL/min 5 L Glucose Level 74 Calcium Level 8.6 Medications Medication Current Medications Albumin Human 100 ml @ 100 mls/hr WITH DIALYSIS PRN IV SBP <90 DURING DIALYSIS Last administered on 10/24/18at 21:00; Admin Dose 100 MLS/HR; Start 10/24/18 at 18:00 Heparin Sodium (Porcine) (Heparin (1000 Units/ml)) 5,200 unit AFTER DIALYSIS CATHETER Last administered on 11/02/18at 16:53; Admin Dose 5,200 UNIT; Start 10/24/18 at 22:30 Sodium Chloride 250 ml @ 250 mls/hr Q1H PRN IV tachycardia Last administered on 10/25/18at 02:24; Admin Dose 250 MLS/HR; Start 10/25/18 at 01:00 Diphenhydramine HCl (Benadryl) 25 mg Q6H PRN IV ALLERGIC REACTION Last administered on 11/04/18at 11:09; Admin Dose 25 MG; Start 10/25/18 at 01:00 Acetaminophen (Tylenol Tab) 650 mg Q4 PRN PO FEVER Last administered on 10/29/18at 18:43; Admin Dose 650 MG; Start 10/25/18 at 01:00 Sevelamer Carbonate (Renvela) 800 mg WITH MEALS PO Last administered on 11/04/18 08:11; Admin Dose 800 MG; Start 10/25/18 at 07:35 Midodrine (Proamatine) 5 mg TID@09,13,17 PO Last administered on 11/04/18 08:11; Admin Dose 5 MG; Start 10/26/18 at 09:00 Lidocaine (Xylocaine 1% (Mdv) 20 ml) 1 ml WITH DIALYSIS PRN INJ PRIOR TO CANULLATION/HD; Start 10/26/18 at 12:30 Ondansetron HCl (Zofran Inj) 4 mg Q4H PRN IV NAUSEA AND/OR VOMITING Last administered on 11/01/18 14:06; Admin Dose 4 MG; Start 10/26/18 at 15:30 Morphine Sulfate (morphine) 2 mg Q4H PRN IV SEVERE PAIN LEVEL 7-10 Last administered on 11/04/18 11:08; Admin Dose 2 MG; Start 10/26/18 at 15:30 Epoetin Maxwell-epbx (Retacrit (Esrd)) 10,000 unit MoWeFr@1700 SC Last administer ed on 11/02/18 17:33; Admin Dose 10,000 UNIT; Start 10/28/18 at 17:00 Oxacillin Sodium 2 gm/Sodium Chloride 50 ml @ 100 mls/hr Q6 IVPB Last administered on 11/04/18 05:02; Admin Dose 100 MLS/HR; Start 10/30/18 at 18:00 Mupirocin (Bactroban) 1 applic BID TOP Last administered on 11/04/18 08:12; A dmin Dose 1 APPLIC; Start 11/02/18 at 13:30 EDIE BUENO NP Nov 04, 2018 12:06
[2018-11-04] MEDS: HEPARIN 1000 UNITS/ML 10 ML INJ CATHETER SCH (12:31)
--- NOTE | 2018-11-04 12:43 | CONS ---
Assessment/Plan Assessment/Plan Hospital Course (Demo Recall) IMPRESSION: 1. Bacteremia, assess for endocarditis, intracardiac source of infection. s/p AMANDA 11/04 with no definite signs intracardiac infection 2. Abnormal electrocardiogram with lateral T-wave inversion. 3. Hypertension, mainly diastolic labile, currently improved. 4. Leukemia. 5. Anemia. 6. Initial hypotension. Initially with midodrine- now improved Recc: -Tele -continue abx's and f/u cx data Consultation Date/Type/Reason Admit Date/Time Oct 25, 2018 at 04:13 Initial Consult Date 10/25/18 Type of Consult Cardiology Reason for Consultation bacteremia Requesting Provider: LUANNE WALTER MD Date/Time of Note DATE: 11/04/18 TIME: 12:40 Exam/Review of Systems Vital Signs Vitals Vital Signs Date Temp Pulse Resp B/P (MAP) Pulse Ox O2 O2 Flow FiO2 Time Delivery Rate 11/04/18 96 11:45 11/04/18 98.0 18 122/89 97 11:07 (100) 11/04/18 Room Air 10:47 Intake and Output 11/03/18 11/03/18 11/04/18 1515:00 23:00 07:00 IntakeIntake Total 400 ml BalanceBalance 400 ml Exam Exam Review of Systems: CONSTITUTIONAL: No fevers, chills. PULMONARY: No sob CARDIOVASCULAR: No chest pain/palpitations GASTROINTESTINAL: No nausea/vomiting. GENITOURINARY: No hematuria/dysuria. MUSCULOSKELETAL: No myagias/arthalgias. PSYCHIATRIC: The patient denies depression. NEUROLOGIC: No weakness Constitutional: alert Psych: no complaints Head: normocephalic ENMT: mucosa pink and moist Neck: supple, jvd (9 cm water) Respiratory: diminished breath sounds Cardiovascular: regular rate and rhythm Gastrointestinal: soft, non-tender Musculoskeletal: muscle tone (normal) Extremities: edema (none) 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: other (No focal deficits) Labs Result Diagram: 11/04/18 0600 11/04/18 0600 Results 24hrs Laboratory Tests Test 11/04/18 06:00 White Blood Count 5.6 # Red Blood Count 3.43 L Hemoglobin 10.8 L Hematocrit 34.4 L Mean Corpuscular Volume 100.3 Mean Corpuscular Hemoglobin 31.5 Mean Corpuscular Hemoglobin Concent 31.4 L Red Cell Distribution Width 17.0 H Platelet Count 295 # Mean Platelet Volume 9.9 Immature Granulocytes % 0.400 Neutrophils % 57.4 Lymphocytes % 28.0 Monocytes % 9.3 Eosinophils % 3.8 Basophils % 1.1 Nucleated Red Blood Cells % 0.0 Immature Granulocytes # 0.020 Neutrophils # 3.2 Lymphocytes # 1.6 Monocytes # 0.5 Eosinophils # 0.2 Basophils # 0.1 Nucleated Red Blood Cells # 0.0 Sodium Level 145 H Potassium Level 5.4 H Chloride Level 106 Carbon Dioxide Level 23 Anion Gap 16 H Blood Urea Nitrogen 49 #H Creatinine 9.60 H Est Glomerular Filtrat Rate mL/min 5 L Glucose Level 74 Calcium Level 8.6 Medications Medications Current Medications Albumin Human 100 ml @ 100 mls/hr WITH DIALYSIS PRN IV SBP <90 DURING DIALYSIS Last administered on 10/24/18 21:00; Admin Dose 100 MLS/HR; Start 10/24/18 at 18:00 Heparin Sodium (Porcine) (Heparin (1000 Units/ml)) 5,200 unit AFTER DIALYSIS CATHETER Last administered on 11/04/18 12:31; Admin Dose 5,200 UNIT; Start 10/24/18 at 22:30 Sodium Chloride 250 ml @ 250 mls/hr Q1H PRN IV tachycardia Last administered on 10/25/18 02:24; Admin Dose 250 MLS/HR; Start 10/25/18 at 01:00 Diphenhydramine HCl (Benadryl) 25 mg Q6H PRN IV ALLERGIC REACTION Last a dministered on 11/04/18 11:09; Admin Dose 25 MG; Start 10/25/18 at 01:00 Acetaminophen (Tylenol Tab) 650 mg Q4 PRN PO FEVER Last administered on 10/29/18 18:43; Admin Dose 650 MG; Start 10/25/18 at 01:00 Sevelamer Carbonate (Renvela) 800 mg WITH MEALS PO Last administered on 11/04/18 12:39; Admin Dose 800 MG; Start 10/25/18 at 07:35 Midodrine (Proamatine) 5 mg TID@09,13,17 PO Last administered on 11/04/18 12:38; Admin Dose 5 MG; Start 10/26/18 at 09:00 Lidocaine (Xylocaine 1% (Mdv) 20 ml) 1 ml WITH DIALYSIS PRN INJ PRIOR TO CANULLATION/HD; Start 10/26/18 at 12:30 Ondansetron HCl (Zofran Inj) 4 mg Q4H PRN IV NAUSEA AND/OR VOMITING Last administered on 11/01/18 14:06; Admin Dose 4 MG; Start 10/26/18 at 15:30 Morphine Sulfate (morphine) 2 mg Q4H PRN IV SEVERE PAIN LEVEL 7-10 Last administered on 11/04/18 11:08; Admin Dose 2 MG; Start 10/26/18 at 15:30 Epoetin Maxwell-epbx (Retacrit (Esrd)) 10,000 unit MoWeFr@1700 SC Last administered on 11/02/18 17:33; Admin Dose 10,000 UNIT; Start 10/28/18 at 17:00 Oxacillin Sodium 2 gm/Sodium Chloride 50 ml @ 100 mls/hr Q6 IVPB Last administered on 11/04/18 12:38; Admin Dose 100 MLS/HR; Start 10/30/18 at 18:00 Mupirocin (Bactroban) 1 applic BID TOP Last administered on 11/04/18 08:12; Admin Dose 1 APPLIC; Start 11/02/18 at 13:30 HENRIQUE GARCIA Nov 04, 2018 12:43
[2018-11-04] MEDS ORDERED: FENTAnyl 50 MCG/ML VIAL ONE (15:48)
[2018-11-04] MEDS ORDERED: LIDOCAINE 1% (MDV) 20 ML INJ ONE (15:59)
[2018-11-04] MEDS: EPOETIN ALFA-EPBX (ESRD) 10,000 UNIT/ML VIAL SC SCH (17:00)
[2018-11-05] VITALS: BP 102/61; PULSE 91; RESP 18
[2018-11-05 04:00] VITALS: BP 127/64; PULSE 71; RESP 18
[2018-11-05] MEDS: morphine 2 MG INJ IV PRN ×4 (05:22→23:49)
[2018-11-05] MEDS: DIPHENHYDRAMINE 50 MG INJ IV PRN ×4 (05:22→23:49)
[2018-11-05] MEDS: OXACILLIN 2 GM in SOD CHLORIDE 0.9% 50 ML IVPB SCH ×4 (05:22→23:50)
[2018-11-05 07:38] VITALS: BP 103/59; PULSE 79; RESP 19
[2018-11-05] MEDS: SEVELAMER CARBONATE 800 MG TABLET PO SCH ×3 (09:11→17:58)
[2018-11-05] MEDS: MIDODRINE 5 MG TAB PO SCH ×3 (09:13→16:03)
--- NOTE | 2018-11-05 11:00 | PN ---
Date/Time of Note Date/Time of Note DATE: 11/05/18 TIME: 11:00 Assessment/Plan VTE Prophylaxis Risk score (from [facility])>0 risk: 1 SCD applied (from [facility]): No SCD contraindicated: other Pharmacological prophylaxis: heparin Lines/Catheters IV Catheter Type (from [facility] Mid Line Urinary Cath still in place: No Assessment/Plan Hospital Course -Sepsis with DIMITRI bacteremia with fevers, leukocytosis, and hypotension. patient is currently continued on oxacillin 2 g every 6 hours Continue antibiotics per ID. Dr. Arora is following in ID consultation. Pending AMANDA. Dr. Barrera is following in cardiology consultation. -Hemodialysis dependent end-stage renal disease, continue dialysis per nephrology. Dr. Beltran is following in nephrology consultation. -Leukemia, patient is undergoing chemotherapy last chemo was on Wednesday10/11/18. -Anemia multifactorial chronic disease and recent chemo, status post blood transfusion, continue to monitor H&H, continue Epogen. -Mineral bone disease with renal osteodystrophy. No acute fractures, traumatic subluxations, osteomyelitis or diskitis per MRI of the lumbar spine. -Primary hyperparathyroidism, status post complete parathyroidectomy and partial left thyroid lobectomy 2 years ago. -Left femoral hemodialysis catheter present on admission. Result Diagram: 11/05/18 0545 11/05/18 0545 Results 24hrs Laboratory Tests Test 11/05/18 05:45 White Blood Count 5.7 Red Blood Count 3.59 L Hemoglobin 11.3 L Hematocrit 35.4 L Mean Corpuscular Volume 98.6 Mean Corpuscular Hemoglobin 31.5 Mean Corpuscular Hemoglobin Concent 31.9 L Red Cell Distribution Width 17.1 H Platelet Count 296 Mean Platelet Volume 9.7 Immature Granulocytes % 0.400 Neutrophils % 59.7 Lymphocytes % 26.8 Monocytes % 8.2 Eosinophils % 3.7 Basophils % 1.2 Nucleated Red Blood Cells % 0.0 Immature Granulocytes # 0.020 Neutrophils # 3.4 Lymphocytes # 1.5 Monocytes # 0.5 Eosinophils # 0.2 Basophils # 0.1 Nucleated Red Blood Cells # 0.0 Sodium Level 140 Potassium Level 5.7 H Chloride Level 99 Carbon Dioxide Level 25 Anion Gap 16 H Blood Urea Nitrogen 40 H Creatinine 8.20 H Est Glomerular Filtrat Rate mL/min 6 L Glucose Level 67 L Calcium Level 8.8 Subjective 24 Hr Interval Summary Free Text/Dictation Patient has no complaints Exam/Review of Systems Exam Vitals Vital Signs Date Temp Pulse Resp B/P (MAP) Pulse Ox O2 O2 Flow FiO2 Time Delivery Rate 11/05/18 98.1 79 19 103/59 97 07:38 (74) 11/04/18 Room Air 16:34 Intake and Output 11/04/18 11/04/18 11/05/18 1515:00 23:00 07:00 IntakeIntake Total 600 ml OutputOutput Total 2700 ml BalanceBalance -2100 ml Constitutional: well developed Head: normocephalic, atraumatic Neck: supple Respiratory: diminished breath sounds Cardiovascular: regular rate and rhythm Gastrointestinal: soft, non-tender Extremities: normal pulses Results Results 24hrs Laboratory Tests Test 11/05/18 05:45 White Blood Count 5.7 Red Blood Count 3.59 L Hemoglobin 11.3 L Hematocrit 35.4 L Mean Corpuscular Volume 98.6 Mean Corpuscular Hemoglobin 31.5 Mean Corpuscular Hemoglobin Concent 31.9 L Red Cell Distribution Width 17.1 H Platelet Count 296 Mean Platelet Volume 9.7 Immature Granulocytes % 0.400 Neutrophils % 59.7 Lymphocytes % 26.8 Monocytes % 8.2 Eosinophils % 3.7 Basophils % 1.2 Nucleated Red Blood Cells % 0.0 Immature Granulocytes # 0.020 Neutrophils # 3.4 Lymphocytes # 1.5 Monocytes # 0.5 Eosinophils # 0.2 Basophils # 0.1 Nucleated Red Blood Cells # 0.0 Sodium Level 140 Potassium Level 5.7 H Chloride Level 99 Carbon Dioxide Level 25 Anion Gap 16 H Blood Urea Nitrogen 40 H Creatinine 8.20 H Est Glomerular Filtrat Rate mL/min 6 L Glucose Level 67 L Calcium Level 8.8 Medications Medication Current Medications Albumin Human 100 ml @ 100 mls/hr WITH DIALYSIS PRN IV SBP <90 DURING DIALYSIS Last administered on 10/24/18at 21:00; Admin Dose 100 MLS/HR; Start 10/24/18 at 18:00 Heparin Sodium (Porcine) (Heparin (1000 Units/ml)) 5,200 unit AFTER DIALYSIS CATHETER Last administered on 11/04/18at 12:31; Admin Dose 5,200 UNIT; Start 10/24/18 at 22:30 Sodium Chloride 250 ml @ 250 mls/hr Q1H PRN IV tachycardia Last administered on 10/25/18 02:24; Admin Dose 250 MLS/HR; Start 10/25/18 at 01:00 Diphenhydramine HCl (Benadryl) 25 mg Q6H PRN IV ALLERGIC REACTION Last administered on 11/05/18 05:22; Admin Dose 25 MG; Start 10/25/18 at 01:00 Acetaminophen (Tylenol Tab) 650 mg Q4 PRN PO FEVER Last administered on 10/29/18 18:43; Admin Dose 650 MG; Start 10/25/18 at 01:00 Sevelamer Carbonate (Renvela) 800 mg WITH MEALS PO Last administered on 11/05/18 09:11; Admin Dose 800 MG; Start 10/25/18 at 07:35 Midodrine (Proamatine) 5 mg TID@,17 PO Last administered on 11/05/18 09:13; Admin Dose 5 MG; Start 10/26/18 at 09:00 Lidocaine (Xylocaine 1% (Mdv) 20 ml) 1 ml WITH DIALYSIS PRN INJ PRIOR TO CANULLATION/HD; Start 10/26/18 at 12:30 Ondansetron HCl (Zofran Inj) 4 mg Q4H PRN IV NAUSEA AND/OR VOMITING Last administered on 11/01/18 14:06; Admin Dose 4 MG; Start 10/26/18 at 15:30 Morphine Sulfate (morphine) 2 mg Q4H PRN IV SEVERE PAIN LEVEL 7-10 Last administered on 11/05/18 05:22; Admin Dose 2 MG; Start 10/26/18 at 15:30 Epoetin Maxwell-epbx (Retacrit (Esrd)) 10,000 unit MoWeFr@1700 SC Last administered on 11/02/18 17:33; Admin Dose 10,000 UNIT; Start 10/28/18 at 17:00 Oxacillin Sodium 2 gm/Sodium Chloride 50 ml @ 100 mls/hr Q6 IVPB Last administered on 11/05/18 05:22; Admin Dose 100 MLS/HR; Start 10/30/18 at 18:00 Mupirocin (Bactroban) 1 applic BID TOP Last administered on 11/04/18 08:12; Admin Dose 1 APPLIC; Start 11/02/18 at 13:30 ANGELY PANG Nov 05, 2018 11:00
[2018-11-05 11:16] VITALS: BP 115/58; PULSE 72; RESP 18
[2018-11-05] MEDS: MUPIROCIN 2% 22 GM OINT TOP SCH ×2 (11:51→21:00)
[2018-11-05] MEDS ORDERED: NA POLYST SULFON 15 GM/60 ML BTL PO ONE (12:30)
--- NOTE | 2018-11-05 12:44 | CONS ---
Assessment/Plan Assessment/Plan Assessment/Plan (Daily) 1. Septic shock s/p Levophed 2. ESRD on HD MWF schedule , left femoral permacath for HD access 3. Bacteremia with Blood cx growing staph aureus 4. H/o Leukemia currently on chemotherapy, last chem on 10/21/18 5. H/o Primary hyperparathyroidism, status post complete parathyroidectomy and partial left thyroid lobectomy 2 years ago. 6. H/o Anemia of ESRD 7, Difficult vascular Access 8. Left hand pain Plan: s/p HD yesterday 2.2 L removed, BP was stable but HR 72, staph aureus bacteremia - IV abx oxacillin 2 gram IV Q 6 hr - ID following sp left groin PermCath removal yesterday. Patient is Line free for 2 days then reinsertion of left groin permacath on Wednesday morning Continue other home medications, Midodrine 5 mg PO TID for BP support will keep pt on MWF schedule will follow up Patient seen in collaboration with Bro Beltran Consultation Date/Type/Reason Admit Date/Time Oct 25, 2018 at 04:13 Initial Consult Date 10/25/18 Requesting Provider: LUANNE WALTER MD Date/Time of Note DATE: 11/05/18 TIME: 12:37 24 HR Interval Summary Free Text/Dictation afebrile sp left groin Perez cath removal - new HD cath placement on Wednesday WBC scan tomorrow no new events reported last night dw staff Detailed Summary Eyes: no complaints ENT: no complaints Respiratory: no complaints Cardiovascular: no complaints Gastrointestinal: no complaints Genitourinary: no complaints Musculoskeletal: bone/joint pain, restricted range of motion (left hand pain ) Skin: no complaints Neurologic: no complaints Endocrine: no complaints Lymphatic: no complaints Psychological: nl mood/affect Immunologic: no complaints Exam/Review of Systems Exam Vitals Vital Signs Date Temp Pulse Resp B/P (MAP) Pulse Ox O2 O2 Flow FiO2 Time Delivery Rate 11/05/18 98.1 72 18 115/58 97 11:16 (77) 11/04/18 Room Air 16:34 Intake and Output 11/04/18 11/04/18 11/05/18 1515:00 23:00 07:00 IntakeIntake Total 600 ml OutputOutput Total 2700 ml BalanceBalance -2100 ml Constitutional: alert, well developed Psych: nl mood/affect Head: normocephalic Eyes: nl lids, nl sclera ENMT: nl external ears & nose Neck: non-tender Respiratory: clear to auscultation Cardiovascular: nl pulses, other (s1s2) Gastrointestinal: soft, non-tender Musculoskeletal: joint tenderness, range of motion Extremities: normal pulses 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: nl mental status, nl speech Skin: nl turgor Lymph: nontender Results Result Diagram: 11/05/18 0545 11/05/18 0545 Results 24hrs Laboratory Tests Test 11/05/18 05:45 White Blood Count 5.7 Red Blood Count 3.59 L Hemoglobin 11.3 L Hematocrit 35.4 L Mean Corpuscular Volume 98.6 Mean Corpuscular Hemoglobin 31.5 Mean Corpuscular Hemoglobin Concent 31.9 L Red Cell Distribution Width 17.1 H Platelet Count 296 Mean Platelet Volume 9.7 Immature Granulocytes % 0.400 Neutrophils % 59.7 Lymphocytes % 26.8 Monocytes % 8.2 Eosinophils % 3.7 Basophils % 1.2 Nucleated Red Blood Cells % 0.0 Immature Granulocytes # 0.020 Neutrophils # 3.4 Lymphocytes # 1.5 Monocytes # 0.5 Eosinophils # 0.2 Basophils # 0.1 Nucleated Red Blood Cells # 0.0 Sodium Level 140 Potassium Level 5.7 H Chloride Level 99 Carbon Dioxide Level 25 Anion Gap 16 H Blood Urea Nitrogen 40 H Creatinine 8.20 H Est Glomerular Filtrat Rate mL/min 6 L Glucose Level 67 L Calcium Level 8.8 Medications Medication Current Medications Albumin Human 100 ml @ 100 mls/hr WITH DIALYSIS PRN IV SBP <90 DURING DIALYSIS Last administered on 10/24/18 21:00; Admin Dose 100 MLS/HR; Start 10/24/18 at 18:00 Heparin Sodium (Porcine) (Heparin (1000 Units/ml)) 5,200 unit AFTER DIALYSIS CATHETER Last administered on 11/04/18 12:31; Admin Dose 5,200 UNIT; Start 10/24/18 at 22:30 Sodium Chloride 250 ml @ 250 mls/hr Q1H PRN IV tachycardia Last administered on 10/25/18 02:24; Admin Dose 250 MLS/HR; Start 10/25/18 at 01:00 Diphenhydramine HCl (Benadryl) 25 mg Q6H PRN IV ALLERGIC REACTION Last administered on 11/05/18 11:48; Admin Dose 25 MG; Start 10/25/18 at 01:00 Acetaminophen (Tylenol Tab) 650 mg Q4 PRN PO FEVER Last administered on 18:43; Admin Dose 650 MG; Start 10/25/18 at 01:00 Sevelamer Carbonate (Renvela) 800 mg WITH MEALS PO Last administered on 11/05/18 11:48; Admin Dose 800 MG; Start 10/25/18 at 07:35 Midodrine (Proamatine) 5 mg TID@,13,17 PO Last administered on 11/05/18 09:13; Admin Dose 5 MG; Start 10/26/18 at 09:00 Lidocaine (Xylocaine 1% (Mdv) 20 ml) 1 ml WITH DIALYSIS PRN INJ PRIOR TO CANULLATION/HD; Start 10/26/18 at 12:30 Ondansetron HCl (Zofran Inj) 4 mg Q4H PRN IV NAUSEA AND/OR VOMITING Last admi nistered on 11/01/18 14:06; Admin Dose 4 MG; Start 10/26/18 at 15:30 Morphine Sulfate (morphine) 2 mg Q4H PRN IV SEVERE PAIN LEVEL 7-10 Last administered on 11/05/18 11:48; Admin Dose 2 MG; Start 10/26/18 at 15:30 Epoetin Maxwell-epbx (Retacrit (Esrd)) 10,000 unit MoWeFr@1700 SC Last administered on 11/02/18 17:33; Admin Dose 10,000 UNIT; Start 10/28/18 at 17:00 Oxacillin Sodium 2 gm/Sodium Chloride 50 ml @ 100 mls/hr Q6 IVPB Last administered on 11/05/18 05:22; Admin Dose 100 MLS/HR; Start 10/30/18 at 18:00 Mupirocin (Bactroban) 1 applic BID TOP Last administered on 11/05/18 11:51; Admin Dose 1 APPLIC; Start 11/02/18 at 13:30 EDILMA CASIANO Nov 05, 2018 12:44
--- NOTE | 2018-11-05 14:54 | CONS ---
Assessment/Plan Assessment/Plan Hospital Course (Demo Recall) IMPRESSION: 1. Bacteremia, assess for endocarditis, intracardiac source of infection. s/p AMANDA 11/04 with no definite signs intracardiac infection 2. Abnormal electrocardiogram with lateral T-wave inversion. 3. Hypertension, mainly diastolic labile, currently improved. 4. Leukemia. 5. Anemia. 6. Initial hypotension. Initially with midodrine- now improved Recc: -Tele -continue abx's and f/u cx data -To have femoral line chagned and placed on opposite side Consultation Date/Type/Reason Admit Date/Time Oct 25, 2018 at 04:13 Initial Consult Date 10/25/18 Type of Consult Cardiology Reason for Consultation bacteremia Requesting Provider: LUANNE WALTER MD Date/Time of Note DATE: 11/05/18 TIME: 14:53 Exam/Review of Systems Vital Signs Vitals Vital Signs Date Temp Pulse Resp B/P (MAP) Pulse Ox O2 O2 Flow FiO2 Time Delivery Rate 11/05/18 98.1 72 18 115/58 97 11:16 (77) 11/04/18 Room Air 16:34 Intake and Output 11/04/18 11/04/18 11/05/18 1515:00 23:00 07:00 IntakeIntake Total 600 ml OutputOutput Total 2700 ml BalanceBalance -2100 ml Exam Exam Review of Systems: CONSTITUTIONAL: No fevers, chills. PULMONARY: No sob CARDIOVASCULAR: No chest pain/palpitations GASTROINTESTINAL: No nausea/vomiting. GENITOURINARY: No hematuria/dysuria. MUSCULOSKELETAL: No myagias/arthalgias. PSYCHIATRIC: The patient denies depression. NEUROLOGIC: No weakness Constitutional: alert Psych: no complaints Head: normocephalic ENMT: mucosa pink and moist Neck: supple, jvd (8 cm water) Respiratory: diminished breath sounds (at bases/B) Cardiovascular: regular rate and rhythm Gastrointestinal: soft, non-tender Musculoskeletal: muscle tone (normal) Extremities: edema (none) Labs Result Diagram: 11/05/18 0545 11/05/18 0545 Results 24hrs Laboratory Tests Test 11/05/18 05:45 White Blood Count 5.7 Red Blood Count 3.59 L Hemoglobin 11.3 L Hematocrit 35.4 L Mean Corpuscular Volume 98.6 Mean Corpuscular Hemoglobin 31.5 Mean Corpuscular Hemoglobin Concent 31.9 L Red Cell Distribution Width 17.1 H Platelet Count 296 Mean Platelet Volume 9.7 Immature Granulocytes % 0.400 Neutrophils % 59.7 Lymphocytes % 26.8 Monocytes % 8.2 Eosinophils % 3.7 Basophils % 1.2 Nucleated Red Blood Cells % 0.0 Immature Granulocytes # 0.020 Neutrophils # 3.4 Lymphocytes # 1.5 Monocytes # 0.5 Eosinophils # 0.2 Basophils # 0.1 Nucleated Red Blood Cells # 0.0 Sodium Level 140 Potassium Level 5.7 H Chloride Level 99 Carbon Dioxide Level 25 Anion Gap 16 H Blood Urea Nitrogen 40 H Creatinine 8.20 H Est Glomerular Filtrat Rate mL/min 6 L Glucose Level 67 L Calcium Level 8.8 Medications Medications Current Medications Albumin Human 100 ml @ 100 mls/hr WITH DIALYSIS PRN IV SBP <90 DURING DIALYSIS Last administered on 10/24/18 21:00; Admin Dose 100 MLS/HR; Start 10/24/18 at 18:00 Heparin Sodium (Porcine) (Heparin (1000 Units/ml)) 5,200 unit AFTER DIALYSIS CATHETER Last administered on 11/04/18 12:31; Admin Dose 5,200 UNIT; Start 10/24/18 at 22:30 Sodium Chloride 250 ml @ 250 mls/hr Q1H PRN IV tachycardia Last administered on 10/25/18 02:24; Admin Dose 250 MLS/HR; Start 10/25/18 at 01:00 Diphenhydramine HCl (Benadryl) 25 mg Q6H PRN IV ALLERGIC REACTION Last administered on 11/05/18 11:48; Admin Dose 25 MG; Start 10/25/18 at 01:00 Acetaminophen (Tylenol Tab) 650 mg Q4 PRN PO FEVER Last administered on 10/29/18 18:43; Admin Dose 650 MG; Start 10/25/18 at 01:00 Sevelamer Carbonate (Renvela) 800 mg WITH MEALS PO Last administered on 11/05/18 11:48; Admin Dose 800 MG; Start 10/25/18 at 07:35 Midodrine (Proamatine) 5 mg TID@09,13,17 PO Last administered on 11/05/18 13:31; Admin Dose 5 MG; Start 10/26/18 at 09:00 Lidocaine (Xylocaine 1% (Mdv) 20 ml) 1 ml WITH DIALYSIS PRN INJ PRIOR TO CANULLATION/HD; Start 10/26/18 at 12:30 Ondansetron HCl (Zofran Inj) 4 mg Q4H PRN IV NAUSEA AND/OR VOMITING Last administered on 11/01/18 14:06; Admin Dose 4 MG; Start 10/26/18 at 15:30 Morphine Sulfate (morphine) 2 mg Q4H PRN IV SEVERE PAIN LEVEL 7-10 Last adm inistered on 11/05/18 11:48; Admin Dose 2 MG; Start 10/26/18 at 15:30 Epoetin Maxwell-epbx (Retacrit (Esrd)) 10,000 unit MoWeFr@1700 SC Last administered on 11/02/18 17:33; Admin Dose 10,000 UNIT; Start 10/28/18 at 17:00 Oxacillin Sodium 2 gm/Sodium Chloride 50 ml @ 100 mls/hr Q6 IVPB Last administered on 11/05/18 13:31; Admin Dose 100 MLS/HR; Start 10/30/18 at 18:00 Mupirocin (Bactroban) 1 applic BID TOP Last administered on 11/05/18 11:51; Admin Dose 1 APPLIC; Start 11/02/18 at 13:30 HENRIQUE GARCIA Nov 05, 2018 14:54
[2018-11-05 15:13] VITALS: BP 127/82; PULSE 75; RESP 18
--- NOTE | 2018-11-05 17:17 | CONS ---
Assessment/Plan Assessment/Plan Hospital Course (Demo Recall) # sepsis, heme/onc - sepsis due to bacteremia, recurrent - persistent bacteremia on 10/24, 10/25, and 10/26 due to MSSA, recurrent; repeat blood cultures on 10/28 & 11/02 remains negative; transthoracic echo does not mention vegetation; AMANDA shows no vegetation - h/o transthoracic echo on 07/19/2018, no e/o endocarditis - placement of HD catheter on L groin in 09/2018. Per P, she had pruritus, "bumps" and green discharge from the catheter site. Its culture on 10/31/2018 grew S. aureus - s/p removal of permacath on R chest wall on 07/14/2018 - s/p R femoral HD justin catheter placement 07/14/2018, replaced by HD permacath 07/19/2018 - pain/increased sensitivity of R groin after replacement of the Perez with permacath. 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 Last used for HD in 04/2018. Was scheduled to get a new graft in [facility] as o utpatient - h/o swelling on the scalp and chest wall, possibly due to collateral veins as a result of thrombosis of AVF - hypotension after HD - h/o recurrent infection of HD catheter site/HD catheter - h/o removal and placement of a new Perez catheter in 05/2018. The culture of the tip of the removed catheter, blood cultures and swab of the catheter site were negative. Pt completed an empiric course of renally dosed pip/tazo (06/13/2018-06/18/2018) - h/o placement of a permacath on R chest wall on 06/23/2018 - h/o creation of AVF in [facility] in 2016 - h/o 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 Pt took renally dosed valACV (07/15/2018-07/17/2018) - adverse reaction to vancomycin (pruritus) - adverse reaction to linezolid (thrombocytopenia). Linezolid was discontinued (06/12/2018-06/17/2018) - ?adverse reaction to cefazolin (severe abd pain/cramping, although pt tolerated a 14 day course of cefazolin in 06/2018) - painful nodule on L thumb; X-ray shows possible subcutaneous mass adjacent to the radial aspect of the first metacarpal. Recommendations: - Awaiting WBC tagged scan to investigate a source of her persistent bacteremia or its complications - Continue renally dosed oxacillin 2gm IV q6 hours (10/30/2018-); will determine the duration of her antibiotic based on the result of WBC tagged scan management d/w Pt and Dr. Barrera Consultation Date/Type/Reason Admit Date/Time Oct 25, 2018 at 04:13 Initial Consult Date 10/25/18 Type of Consult ID Requesting Provider: LUANNE WALTER MD Date/Time of Note DATE: 11/05/18 TIME: 17:16 24 HR Interval Summary Constitutional: no complaints Detailed Summary Eyes: no complaints ENT: no complaints Respiratory: no complaints Cardiovascular: no complaints Gastrointestinal: no complaints Genitourinary: other (on HD) Musculoskeletal: other (no pain from the prior HD catheter site) Skin: other (folliculitis around the prior HD site) Neurologic: no complaints Exam/Review of Systems Exam Vitals Vital Signs Date Temp Pulse Resp B/P (MAP) Pulse Ox O2 O2 Flow FiO2 Time Delivery Rate 11/05/18 98.2 75 18 127/82 97 15:13 (97) 11/04/18 Room Air 16:34 Intake and Output 11/04/18 11/04/18 11/05/18 1515:00 23:00 07:00 IntakeIntake Total 600 ml OutputOutput Total 2700 ml BalanceBalance -2100 ml Constitutional: frail Psych: no complaints, nl mood/affect Head: normocephalic, other (alopecia) Eyes: nl conjunctiva, nl lids ENMT: nl external ears & nose, nl nasal mucosa & septum Neck: supple Respiratory: clear to auscultation, normal air movement Cardiovascular: regular rate and rhythm, nl pulses Gastrointestinal: soft, non-tender; No distended, No tender Musculoskeletal: nl extremities to inspection Extremities: other (AVG in LUE without thrill); No edema 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: [employer] II-XII intact, nl mental status, nl speech Skin: nl turgor, other (folliculitis of the chest wall, groin) Results Result Diagram: 11/05/1845 11/05/18 0545 Results 24hrs Laboratory Tests Test 11/05/18 05:45 White Blood Count 5.7 Red Blood Count 3.59 L Hemoglobin 11.3 L Hematocrit 35.4 L Mean Corpuscular Volume 98.6 Mean Corpuscular Hemoglobin 31.5 Mean Corpuscular Hemoglobin Concent 31.9 L Red Cell Distribution Width 17.1 H Platelet Count 296 Mean Platelet Volume 9.7 Immature Granulocytes % 0.400 Neutrophils % 59.7 Lymphocytes % 26.8 Monocytes % 8.2 Eosinophils % 3.7 Basophils % 1.2 Nucleated Red Blood Cells % 0.0 Immature Granulocytes # 0.020 Neutrophils # 3.4 Lymphocytes # 1.5 Monocytes # 0.5 Eosinophils # 0.2 Basophils # 0.1 Nucleated Red Blood Cells # 0.0 Sodium Level 140 Potassium Level 5.7 H Chloride Level 99 Carbon Dioxide Level 25 Anion Gap 16 H Blood Urea Nitrogen 40 H Creatinine 8.20 H Est Glomerular Filtrat Rate mL/min 6 L Glucose Level 67 L Calcium Level 8.8 Medications Medication Current Medications Albumin Human 100 ml @ 100 mls/hr WITH DIALYSIS PRN IV SBP <90 DURING DIALYSIS Last administered on 10/24/18at 21:00; Admin Dose 100 MLS/HR; Start 10/24/18 at 18:00 Heparin Sodium (Porcine) (Heparin (1000 Units/ml)) 5,200 unit AFTER DIALYSIS CATHETER Last administered on 11/04/18at 12:31; Admin Dose 5,200 UNIT; Start 10/24/18 at 22:30 Sodium Chloride 250 ml @ 250 mls/hr Q1H PRN IV tachycardia Last administered on 10/25/18 02:24; Admin Dose 250 MLS/HR; Start 10/25/18 at 01:00 Diphenhydramine HCl (Benadryl) 25 mg Q6H PRN IV ALLERGIC REACTION Last administered on 11/05/18 11:48; Admin Dose 25 MG; Start 10/25/18 at 01:00 Acetaminophen (Tylenol Tab) 650 mg Q4 PRN PO FEVER Last administered on 10/29/18 t 18:43; Admin Dose 650 MG; Start 10/25/18 at 01:00 Sevelamer Carbonate (Renvela) 800 mg WITH MEALS PO Last administered on 11/05/18 11:48; Admin Dose 800 MG; Start 10/25/18 at 07:35 Midodrine (Proamatine) 5 mg TID@,13,17 PO Last administered on 11/05/18 16:03; Admin Dose 5 MG; Start 10/26/18 at 09:00 Lidocaine (Xylocaine 1% (Mdv) 20 ml) 1 ml WITH DIALYSIS PRN INJ PRIOR TO CANULLATION/HD; Start 10/26/18 at 12:30 Ondansetron HCl (Zofran Inj) 4 mg Q4H PRN IV NAUSEA AND/OR VOMITING Last administered on 11/01/18 14:06; Admin Dose 4 MG; Start 10/26/18 at 15:30 Morphine Sulfate (morphine) 2 mg Q4H PRN IV SEVERE PAIN LEVEL 7-10 Last administered on 11/05/18 16:03; Admin Dose 2 MG; Start 10/26/18 at 15:30 Epoetin Maxwell-epbx (Retacrit (Esrd)) 10,000 unit MoWeFr@1700 SC Last administered on 11/02/18 17:33; Admin Dose 10,000 UNIT; Start 10/28/18 at 17:00 Oxacillin Sodium 2 gm/Sodium Chloride 50 ml @ 100 mls/hr Q6 IVPB Last administered on 11/05/18 13:31; Admin Dose 100 MLS/HR; Start 10/30/18 at 18:00 Mupirocin (Bactroban) 1 applic BID TOP Last administered on 11/05/18 11:51; Admin Dose 1 APPLIC; Start 11/02/18 at 13:30 GINGER HARDIN M.D. Nov 05, 2018 17:17
[2018-11-05 20:00] VITALS: BP 113/68; PULSE 71; RESP 17
[2018-11-06] VITALS (7 sets, daily range): BP systolic 99–143; BP diastolic 55–91; PULSE 70–80; RESP 16–18
[2018-11-06] MEDS: morphine 2 MG INJ IV PRN ×4 (05:41→23:28)
[2018-11-06] MEDS: DIPHENHYDRAMINE 50 MG INJ IV PRN ×4 (05:41→23:27)
[2018-11-06] MEDS: OXACILLIN 2 GM in SOD CHLORIDE 0.9% 50 ML IVPB SCH ×4 (05:41→23:28)
[2018-11-06] MEDS: SEVELAMER CARBONATE 800 MG TABLET PO SCH ×3 (08:33→17:30)
[2018-11-06] MEDS: MIDODRINE 5 MG TAB PO SCH ×3 (08:34→17:00)
[2018-11-06] MEDS ORDERED: NA POLYST SULFON 15 GM/60 ML BTL PO ONE (09:00)
--- NOTE | 2018-11-06 09:53 | CONS ---
Assessment/Plan Assessment/Plan Assessment/Plan (Daily) -Hyperkalemia- mKayexalate 60 gm po x 1; repeat BMP at 1300; am BMP 1. Septic shock s/p Levophed 2. ESRD on HD MWF schedule , left femoral permacath for HD access 3. Bacteremia with Blood cx growing staph aureus 4. H/o Leukemia currently on chemotherapy, last chem on 10/21/18 5. H/o Primary hyperparathyroidism, status post complete parathyroidectomy and partial left thyroid lobectomy 2 years ago. 6. H/o Anemia of ESRD 7, Difficult vascular Access Plan: s/p HD Wednesday 2.2 L removed, BP was stable staph aureus bacteremia - IV abx oxacillin 2 gram IV Q 6 hr - ID following sp left groin permacath removal . Patient is Line free for 2 days then reinsertion of left groin permacath on Wednesday morning Continue other home medications, Midodrine 5 mg PO TID for BP support will keep pt on MWF schedule will follow up Patient seen in collaboration with Dr Adore Beltran Consultation Date/Type/Reason Admit Date/Time Oct 25, 2018 at 04:13 Initial Consult Date 10/25/18 Requesting Provider: LUANNE WALTER MD Date/Time of Note DATE: 11/06/18 TIME: 09:53 24 HR Interval Summary Free Text/Dictation afebrile sp left groin Perez cath removal - new HD cath placement on Wednesday WBC scan today no new events reported last night dw staff Exam/Review of Systems Exam Vitals Vital Signs Date Temp Pulse Resp B/P (MAP) Pulse Ox O2 O2 Flow FiO2 Time Delivery Rate 11/06/18 98.0 80 18 110/82 98 07:23 (91) 11/04/18 Room Air 16:34 Intake and Output 11/05/18 11/05/18 11/06/18 1515:00 23:00 07:00 IntakeIntake Total 450 ml 50 ml 400 ml BalanceBalance 450 ml 50 ml 400 ml Results Result Diagram: 11/06/18 0739 11/06/18 0739 Results 24hrs Laboratory Tests Test 11/06/18 07:39 White Blood Count 5.9 Red Blood Count 3.39 L Hemoglobin 10.6 L Hematocrit 34.1 L Mean Corpuscular Volume 100.6 Mean Corpuscular Hemoglobin 31.3 Mean Corpuscular Hemoglobin Concent 31.1 L Red Cell Distribution Width 16.9 H Platelet Count 285 Mean Platelet Volume 10.1 Immature Granulocytes % 0.200 Neutrophils % 65.1 Lymphocytes % 23.4 Monocytes % 6.8 Eosinophils % 3.1 Basophils % 1.4 Nucleated Red Blood Cells % 0.0 Immature Granulocytes # 0.010 Neutrophils # 3.8 Lymphocytes # 1.4 Monocytes # 0.4 Eosinophils # 0.2 Basophils # 0.1 Nucleated Red Blood Cells # 0.0 Sodium Level 142 Potassium Level 6.1 *H Chloride Level 102 Carbon Dioxide Level 23 Anion Gap 17 H Blood Urea Nitrogen 60 H Creatinine 10.49 #H Est Glomerular Filtrat Rate mL/min 4 L Glucose Level 74 Calcium Level 8.5 Medications Medication Current Medications Albumin Human 100 ml @ 100 mls/hr WITH DIALYSIS PRN IV SBP <90 DURING DIALYSIS Last administered on 10/24/18 21:00; Admin Dose 100 MLS/HR; Start 10/24/18 at 18:00 Heparin Sodium (Porcine) (Heparin (1000 Units/ml)) 5,200 unit AFTER DIALYSIS CATHETER Last administered on 11/04/18 12:31; Admin Dose 5,200 UNIT; Start 10/24/18 at 22:30 Sodium Chloride 250 ml @ 250 mls/hr Q1H PRN IV tachycardia Last administered on 10/25/18 02:24; Admin Dose 250 MLS/HR; Start 10/25/18 at 01:00 Diphenhydramine HCl (Benadryl) 25 mg Q6H PRN IV ALLERGIC REACTION Last administered on 11/06/18 05:41; Admin Dose 25 MG; Start 10/25/18 at 01:00 Acetaminophen (Tylenol Tab) 650 mg Q4 PRN PO FEVER Last administered on 18:43; Admin Dose 650 MG; Start 10/25/18 at 01:00 Sevelamer Carbonate (Renvela) 800 mg WITH MEALS PO Last administered on 11/06/18 08:33; Admin Dose 800 MG; Start 10/25/18 at 07:35 Midodrine (Proamatine) 5 mg TID@09,13,17 PO Last administered on 11/06/18 08:34; Admin Dose 5 MG; Start 10/26/18 at 09:00 Lidocaine (Xylocaine 1% (Mdv) 20 ml) 1 ml WITH DIALYSIS PRN INJ PRIOR TO CANULLATION/HD; Start 10/26/18 at 12:30 Ondansetron HCl (Zofran Inj) 4 mg Q4H PRN IV NAUSEA AND/OR VOMITING Last a dministered on 11/01/18 14:06; Admin Dose 4 MG; Start 10/26/18 at 15:30 Morphine Sulfate (morphine) 2 mg Q4H PRN IV SEVERE PAIN LEVEL 7-10 Last administered on 11/06/18 05:41; Admin Dose 2 MG; Start 10/26/18 at 15:30 Epoetin Maxwell-epbx (Retacrit (Esrd)) 10,000 unit MoWeFr@1700 SC Last administered on 11/02/18 17:33; Admin Dose 10,000 UNIT; Start 10/28/18 at 17:00 Oxacillin Sodium 2 gm/Sodium Chloride 50 ml @ 100 mls/hr Q6 IVPB Last administered on 11/06/18 05:41; Admin Dose 100 MLS/HR; Start 10/30/18 at 18:00 Mupirocin (Bactroban) 1 applic BID TOP Last administered on 11/05/18 11:51; Admin Dose 1 APPLIC; Start 11/02/18 at 13:30 EDILMA CASIANO Nov 06, 2018 09:53
--- NOTE | 2018-11-06 10:36 | PN ---
Date/Time of Note Date/Time of Note DATE: 11/06/18 TIME: 10:36 Assessment/Plan VTE Prophylaxis Risk score (from [facility])>0 risk: 1 SCD applied (from [facility]): No SCD contraindicated: other Pharmacological prophylaxis: LMWH Lines/Catheters IV Catheter Type (from [facility] Mid Line Urinary Cath still in place: No Assessment/Plan Hospital Course -Sepsis with DIMITRI bacteremia with fevers, leukocytosis, and hypotension. patient is currently continued on oxacillin 2 g every 6 hours Continue antibiotics per ID. Dr. Arora is following in ID consultation. Pending AMANDA. Dr. Barrera is following in cardiology consultation. -Hemodialysis dependent end-stage renal disease, continue dialysis per nephrology. Dr. Beltran is following in nephrology consultation. -Leukemia, patient is undergoing chemotherapy last chemo was on Wednesday10/11/18. -Anemia multifactorial chronic disease and recent chemo, status post blood transfusion, continue to monitor H&H, continue Epogen. -Mineral bone disease with renal osteodystrophy. No acute fractures, traumatic subluxations, osteomyelitis or diskitis per MRI of the lumbar spine. -Primary hyperparathyroidism, status post complete parathyroidectomy and partial left thyroid lobectomy 2 years ago. -Left femoral hemodialysis catheter present on admission. Result Diagram: 11/06/18 0739 11/06/18 0739 Results 24hrs Laboratory Tests Test 11/06/18 07:39 White Blood Count 5.9 Red Blood Count 3.39 L Hemoglobin 10.6 L Hematocrit 34.1 L Mean Corpuscular Volume 100.6 Mean Corpuscular Hemoglobin 31.3 Mean Corpuscular Hemoglobin Concent 31.1 L Red Cell Distribution Width 16.9 H Platelet Count 285 Mean Platelet Volume 10.1 Immature Granulocytes % 0.200 Neutrophils % 65.1 Lymphocytes % 23.4 Monocytes % 6.8 Eosinophils % 3.1 Basophils % 1.4 Nucleated Red Blood Cells % 0.0 Immature Granulocytes # 0.010 Neutrophils # 3.8 Lymphocytes # 1.4 Monocytes # 0.4 Eosinophils # 0.2 Basophils # 0.1 Nucleated Red Blood Cells # 0.0 Sodium Level 142 Potassium Level 6.1 *H Chloride Level 102 Carbon Dioxide Level 23 Anion Gap 17 H Blood Urea Nitrogen 60 H Creatinine 10.49 #H Est Glomerular Filtrat Rate mL/min 4 L Glucose Level 74 Calcium Level 8.5 Subjective 24 Hr Interval Summary Free Text/Dictation Patient has no complaints Exam/Review of Systems Exam Vitals Vital Signs Date Temp Pulse Resp B/P (MAP) Pulse Ox O2 O2 Flow FiO2 Time Delivery Rate 11/06/18 98.0 80 18 110/82 98 07:23 (91) 11/04/18 Room Air 16:34 Intake and Output 11/05/18 11/05/18 11/06/18 1515:00 23:00 07:00 IntakeIntake Total 450 ml 50 ml 400 ml BalanceBalance 450 ml 50 ml 400 ml Constitutional: well developed Head: normocephalic, atraumatic Neck: supple Respiratory: diminished breath sounds Cardiovascular: regular rate and rhythm Gastrointestinal: soft, non-tender Extremities: normal pulses Results Results 24hrs Laboratory Tests Test 11/06/18 07:39 White Blood Count 5.9 Red Blood Count 3.39 L Hemoglobin 10.6 L Hematocrit 34.1 L Mean Corpuscular Volume 100.6 Mean Corpuscular Hemoglobin 31.3 Mean Corpuscular Hemoglobin Concent 31.1 L Red Cell Distribution Width 16.9 H Platelet Count 285 Mean Platelet Volume 10.1 Immature Granulocytes % 0.200 Neutrophils % 65.1 Lymphocytes % 23.4 Monocytes % 6.8 Eosinophils % 3.1 Basophils % 1.4 Nucleated Red Blood Cells % 0.0 Immature Granulocytes # 0.010 Neutrophils # 3.8 Lymphocytes # 1.4 Monocytes # 0.4 Eosinophils # 0.2 Basophils # 0.1 Nucleated Red Blood Cells # 0.0 Sodium Level 142 Potassium Level 6.1 *H Chloride Level 102 Carbon Dioxide Level 23 Anion Gap 17 H Blood Urea Nitrogen 60 H Creatinine 10.49 #H Est Glomerular Filtrat Rate mL/min 4 L Glucose Level 74 Calcium Level 8.5 Medications Medication Current Medications Albumin Human 100 ml @ 100 mls/hr WITH DIALYSIS PRN IV SBP <90 DURING DIALYSIS Last administered on 10/24/18at 21:00; Admin Dose 100 MLS/HR; Start 10/24/18 at 18:00 Heparin Sodium (Porcine) (Heparin (1000 Units/ml)) 5,200 unit AFTER DIALYSIS CATHETER Last administered on 11/04/18at 12:31; Admin Dose 5,200 UNIT; Start 10/24/18 at 22:30 Sodium Chloride 250 ml @ 250 mls/hr Q1H PRN IV tachycardia Last administered on 10/25/18 02:24; Admin Dose 250 MLS/HR; Start 10/25/18 at 01:00 Diphenhydramine HCl (Benadryl) 25 mg Q6H PRN IV ALLERGIC REACTION Last administered on 11/06/18 05:41; Admin Dose 25 MG; Start 10/25/18 at 01:00 Acetaminophen (Tylenol Tab) 650 mg Q4 PRN PO FEVER Last administered on 10/29/18 18:43; Admin Dose 650 MG; Start 10/25/18 at 01:00 Sevelamer Carbonate (Renvela) 800 mg WITH MEALS PO Last administered on 11/06/18 08:33; Admin Dose 800 MG; Start 10/25/18 at 07:35 Midodrine (Proamatine) 5 mg TID@,,17 PO Last administered on 11/06/18 08: 34; Admin Dose 5 MG; Start 10/26/18 at 09:00 Lidocaine (Xylocaine 1% (Mdv) 20 ml) 1 ml WITH DIALYSIS PRN INJ PRIOR TO CANULLATION/HD; Start 10/26/18 at 12:30 Ondansetron HCl (Zofran Inj) 4 mg Q4H PRN IV NAUSEA AND/OR VOMITING Last administered on 11/01/18 14:06; Admin Dose 4 MG; Start 10/26/18 at 15:30 Morphine Sulfate (morphine) 2 mg Q4H PRN IV SEVERE PAIN LEVEL 7-10 Last administered on 11/06/18 10:18; Admin Dose 2 MG; Start 10/26/18 at 15:30 Epoetin Maxwell-epbx (Retacrit (Esrd)) 10,000 unit MoWeFr@1700 SC Last administered on 11/02/18 17:33; Admin Dose 10,000 UNIT; Start 10/28/18 at 17:00 Oxacillin Sodium 2 gm/Sodium Chloride 50 ml @ 100 mls/hr Q6 IVPB Last administered on 11/06/18 05:41; Admin Dose 100 MLS/HR; Start 10/30/18 at 18:00 Mupirocin (Bactroban) 1 applic BID TOP Last administered on 11/05/18 11:51; Admin Dose 1 APPLIC; Start 11/02/18 at 13:30 NAGELY PANG Nov 06, 2018 10:36
[2018-11-06] MEDS: MUPIROCIN 2% 22 GM OINT TOP SCH ×2 (13:52→21:00)
--- NOTE | 2018-11-06 14:19 | CONS ---
Assessment/Plan Assessment/Plan Hospital Course (Demo Recall) IMPRESSION: 1. Bacteremia, assess for endocarditis, intracardiac source of infection. s/p AMANDA 11/04 with no definite signs intracardiac infection 2. Abnormal electrocardiogram with lateral T-wave inversion. 3. Hypertension, mainly diastolic labile, currently improved. 4. Leukemia. 5. Anemia. 6. Initial hypotension. Initially with midodrine- somewhat labile Recc: -Tele -continue abx's and f/u cx data -To have femoral line changed and placed on opposite side still pnding placement Consultation Date/Type/Reason Admit Date/Time Oct 25, 2018 at 04:13 Initial Consult Date 10/25/18 Type of Consult Cardiology Reason for Consultation bacteremia Requesting Provider: LUANNE WALTER MD Date/Time of Note DATE: 11/06/18 TIME: 14:17 Exam/Review of Systems Vital Signs Vitals Vital Signs Date Temp Pulse Resp B/P (MAP) Pulse Ox O2 O2 Flow FiO2 Time Delivery Rate 11/06/18 98.0 79 18 99/55 (70) 98 11:48 11/04/18 Room Air 16:34 Intake and Output 11/05/18 11/05/18 11/06/18 1515:00 23:00 07:00 IntakeIntake Total 450 ml 50 ml 400 ml BalanceBalance 450 ml 50 ml 400 ml Exam Exam Review of Systems: CONSTITUTIONAL: No fevers, chills. PULMONARY: No sob CARDIOVASCULAR: No chest pain/palpitations GASTROINTESTINAL: No nausea/vomiting. GENITOURINARY: No hematuria/dysuria. MUSCULOSKELETAL: No myagias/arthalgias. PSYCHIATRIC: The patient denies depression. NEUROLOGIC: No weakness Constitutional: alert, oriented Psych: no complaints Head: normocephalic ENMT: mucosa pink and moist Neck: supple, jvd (9 cm water) Respiratory: diminished breath sounds Cardiovascular: regular rate and rhythm Gastrointestinal: soft, non-tender Musculoskeletal: muscle tone (normal) Extremities: edema (none) 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: other (No focal deficits) Labs Result Diagram: 11/06/18 0739 11/06/18 0739 Results 24hrs Laboratory Tests Test 11/06/18 07:39 White Blood Count 5.9 Red Blood Count 3.39 L Hemoglobin 10.6 L Hematocrit 34.1 L Mean Corpuscular Volume 100.6 Mean Corpuscular Hemoglobin 31.3 Mean Corpuscular Hemoglobin Concent 31.1 L Red Cell Distribution Width 16.9 H Platelet Count 285 Mean Platelet Volume 10.1 Immature Granulocytes % 0.200 Neutrophils % 65.1 Lymphocytes % 23.4 Monocytes % 6.8 Eosinophils % 3.1 Basophils % 1.4 Nucleated Red Blood Cells % 0.0 Immature Granulocytes # 0.010 Neutrophils # 3.8 Lymphocytes # 1.4 Monocytes # 0.4 Eosinophils # 0.2 Basophils # 0.1 Nucleated Red Blood Cells # 0.0 Sodium Level 142 Potassium Level 6.1 *H Chloride Level 102 Carbon Dioxide Level 23 Anion Gap 17 H Blood Urea Nitrogen 60 H Creatinine 10.49 #H Est Glomerular Filtrat Rate mL/min 4 L Glucose Level 74 Calcium Level 8.5 Medications Medications Current Medications Albumin Human 100 ml @ 100 mls/hr WITH DIALYSIS PRN IV SBP <90 DURING DIALYSIS Last administered on 10/24/18 21:00; Admin Dose 100 MLS/HR; Start 10/24/18 at 18:00 Heparin Sodium (Porcine) (Heparin (1000 Units/ml)) 5,200 unit AFTER DIALYSIS CATHETER Last administered on 11/04/18 12:31; Admin Dose 5,200 UNIT; Start 10/24/18 at 22:30 Sodium Chloride 250 ml @ 250 mls/hr Q1H PRN IV tachycardia Last administered on 10/25/18 02:24; Admin Dose 250 MLS/HR; Start 10/25/18 at 01:00 Diphenhydramine HCl (Benadryl) 25 mg Q6H PRN IV ALLERGIC REACTION Last administered on 11/06/18 11:33; Admin Dose 25 MG; Start 10/25/18 at 01:00 Acetaminophen (Tylenol Tab) 650 mg Q4 PRN PO FEVER Last administered on 10/29/18 18:43; Admin Dose 650 MG; Start 10/25/18 at 01:00 Sevelamer Carbonate (Renvela) 800 mg WITH MEALS PO Last administered on 11/06/18 11:33; Admin Dose 800 MG; Start 10/25/18 at 07:35 Midodrine (Proamatine) 5 mg TID@09,13,17 PO Last administered on 11/06/18 13:52; Admin Dose 5 MG; Start 10/26/18 at 09:00 Lidocaine (Xylocaine 1% (Mdv) 20 ml) 1 ml WITH DIALYSIS PRN INJ PRIOR TO CANULLATION/HD; Start 10/26/18 at 12:30 Ondansetron HCl (Zofran Inj) 4 mg Q4H PRN IV NAUSEA AND/OR VOMITING Last administered on 11/01/18 14:06; Admin Dose 4 MG; Start 10/26/18 at 15:30 Morphine Sulfate (morphine) 2 mg Q4H PRN IV SEVERE PAIN LEVEL 7-10 Last administered on 11/06/18 10:18; Admin Dose 2 MG; Start 10/26/18 at 15:30 Epoetin Maxwell-epbx (Retacrit (Esrd)) 10,000 unit MoWeFr@1700 SC Last administered on 11/02/18 17:33; Admin Dose 10,000 UNIT; Start 10/28/18 at 17:00 Oxacillin Sodium 2 gm/Sodium Chloride 50 ml @ 100 mls/hr Q6 IVPB Last administered on 11/06/18 11:33; Admin Dose 100 MLS/HR; Start 10/30/18 at 18:00 Mupirocin (Bactroban) 1 applic BID TOP Last administered on 11/06/18 13:52; Admin Dose 1 APPLIC; Start 11/02/18 at 13:30 HENRIQUE GARCIA Nov 06, 2018 14:19
--- NOTE | 2018-11-06 15:42 | CONS ---
[facility] HCIS Consult Follow-up Patient Name: Maria Luisa Lakhani Unit Number: [id number] Date of : 1985 Patient Status: Admitted Inpatient Attending Doctor: Pawan Walter MD Edit: GINGER LEONE M.D. on 11/07/18 @ 18:29 Sulema: I discussed the management with PAYROLL CLERK Lamar and agree Assessment/Plan Assessment/Plan Hospital Course (Demo Recall) # sepsis, heme/onc - sepsis due to bacteremia, recurrent - persistent bacteremia on 10/24, 10/25, and 10/26 due to MSSA, recurrent; repeat blood cultures on 10/28 & 11/02 remains negative; transthoracic echo does not mention vegetation; AMANDA shows no vegetation - h/o transthoracic echo on 07/19/2018, no e/o endocarditis - placement of HD catheter on L groin in 09/2018. Per P, she had pruritus, "bumps" and green discharge from the catheter site. Its culture on 10/31/2018 grew S. aureus - s/p removal of permacath on R chest wall on 07/14/2018 - s/p R femoral HD justin catheter placement 07/14/2018, replaced by HD permacath 07/19/2018 - pain/increased sensitivity of R groin after replacement of the Perez with permacath. 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 Last used for HD in 04/2018. [place] [facility] [place] - h/o swelling on the scalp and chest wall, possibly due to collateral veins as a result of thrombosis of AVF - hypotension after HD - h/o recurrent infection of HD catheter site/HD catheter - h/o removal and placement of a new Perez catheter in 05/2018. The culture of the tip of the removed catheter, blood cultures and swab of the catheter site were negative. Pt completed an empiric course of renally dosed pip/tazo (06/13/2018-06/18/2018) - h/o placement of a permacath on R chest wall on 06/23/2018 - h/o creation of AVF in E in 2016 - h/o 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 Pt took renally dosed valACV (07/15/2018-07/17/2018) - adverse reaction to vancomycin (pruritus) - adverse reaction to linezolid (thrombocytopenia). Linezolid was discontinued (06/12/2018-06/17/2018) - ?adverse reaction to cefazolin (severe abd pain/cramping, although pt tolerated a 14 day course of cefazolin in 06/2018) - painful nodule on L thumb; X-ray shows possible subcutaneous mass adjacent to the radial aspect of the first metacarpal. Recommendations: - Ordered: CT chest without contrast to r/o abscess or similar on chest wall. - Continue renally dosed oxacillin 2gm IV q6 hours (10/30/2018-) - F/u blood cultures (NGTD), and cath tip culture (NGTD) management d/w patient and with Dr. Leone. Consultation Date/Type/Reason Admit Date/Time Oct 25, 2018 at 04:13 Initial Consult Date 10/25/18 Type of Consult ID Requesting Provider: PAWAN WALTER MD Date/Time of Note DATE: 11/06/18 TIME: 15:39 24 HR Interval Summary Free Text/Dictation s/p WBC scan. Afebrile, wbc 5.9. catheter tip culture ngtd thusfar. Patient reports tender pain in previous catheter site. Exam/Review of Systems Exam Vitals Vital Signs Date Temp Pulse Resp B/P (MAP) Pulse Ox O2 O2 Flow FiO2 Time Delivery Rate 11/06/18 98.0 79 18 99/55 (70) 98 11:48 11/04/18 Room Air 16:34 Allergies Coded Allergies cefazolin (Verified Allergy, Severe, SEVERE ABDOMINAL PAIN, ITCHINESS, 10/30/18) vancomycin (Unverified Allergy, Severe, 10/24/18) pruritus Intake and Output 11/05/18 11/05/18 11/06/18 1515:00 23:00 07:00 IntakeIntake Total 450 ml 50 ml 400 ml BalanceBalance 450 ml 50 ml 400 ml Exam Constitutional: alert, oriented, other (thin) Psych: nl mood/affect Head: normocephalic, atraumatic Eyes: nl conjunctiva, nl lids, nl sclera ENMT: nl external ears & nose, nl nasal mucosa & septum, mucosa pink and moist (no thrush) Neck: supple, non-tender Respiratory: clear to auscultation, normal air movement; No wheezing Cardiovascular: regular rate and rhythm, nl pulses Gastrointestinal: soft, non-tender, bowel sounds (normoactive ) Genitourinary - Female: other (L groin previous HD cath site is c/d/i ttp, no erythema, brusing, or palpable hematoma noted) Musculoskeletal: nl extremities to inspection, swelling (L thumb, 1st metacarpal, with palpable nodule that is TTP) Extremities: normal pulses, other (LUE nonfunctional AVF) 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: nl mental status, nl speech, nl strength Skin: nl turgor Results Result Diagram: 11/06/18 0739 11/06/18 1356 Results 24hrs Laboratory Tests Test 11/06/18 07:39 11/06/18 13:56 White Blood Count 5.9 Red Blood Count 3.39 L Hemoglobin 10.6 L Hematocrit 34.1 L Mean Corpuscular Volume 100.6 Mean Corpuscular Hemoglobin 31.3 Mean Corpuscular Hemoglobin Concent 31.1 L Red Cell Distribution Width 16.9 H Platelet Count 285 Mean Platelet Volume 10.1 Immature Granulocytes % 0.200 Neutrophils % 65.1 Lymphocytes % 23.4 Monocytes % 6.8 Eosinophils % 3.1 Basophils % 1.4 Nucleated Red Blood Cells % 0.0 Immature Granulocytes # 0.010 Neutrophils # 3.8 Lymphocytes # 1.4 Monocytes # 0.4 Eosinophils # 0.2 Basophils # 0.1 Nucleated Red Blood Cells # 0.0 Sodium Level 142 140 Potassium Level 6.1 *H 5.5 H Chloride Level 102 99 Carbon Dioxide Level 23 24 Anion Gap 17 H 17 H Blood Urea Nitrogen 60 H 65 H Creatinine 10.49 #H 10.96 H Est Glomerular Filtrat Rate mL/min 4 L 4 L Glucose Level 74 82 Calcium Level 8.5 8.5 Imaging Imaging 11/04/18 L Hand MRI IMPRESSION: 1. Mild first MCP joint effusion/synovitis, and mild degeneration of the radial insertion of the radial collateral ligament/dorsal medial capsule at the first MCP joint. 2. Oval well circumscribed intermediate signal mass/nodule within the subcutaneous tissues just proximal to the first MCP joint with an apparent neck just extending to the level of the metacarpal insertion of the radial collateral ligament. Findings may represent a proteinaceous/complex ganglion cyst, not fully characterized without contrast, and other etiologies such as PVNS not completely excluded. This can be further evaluated with ultrasound, and is amendable to percutaneous sampling. 3. Focal effusion/synovitis in the pre styloid recess region in the ulnar wrist, partially imaged. 4. No acute fracture or stress reaction identified. Medications Medication Current Medications Albumin Human 100 ml @ 100 mls/hr WITH DIALYSIS PRN IV SBP <90 DURING DIALYSIS Last administered on 10/24/18at 21:00; Admin Dose 100 MLS/HR; Start 10/24/18 at 18:00 Heparin Sodium (Porcine) (Heparin (1000 Units/ml)) 5,200 unit AFTER DIALYSIS CATHETER Last administered on 11/04/18at 12:31; Admin Dose 5,200 UNIT; Start 10/24/18 at 22:30 Sodium Chloride 250 ml @ 250 mls/hr Q1H PRN IV tachycardia Last administered on 10/25/18at 02:24; Admin Dose 250 MLS/HR; Start 10/25/18 at 01:00 Diphenhydramine HCl (Benadryl) 25 mg Q6H PRN IV ALLERGIC REACTION Last administered on 11/06/18 11:33; Admin Dose 25 MG; Start 10/25/18 at 01:00 Acetaminophen (Tylenol Tab) 650 mg Q4 PRN PO FEVER Last administered on 10/29/18 18:43; Admin Dose 650 MG; Start 10/25/18 at 01:00 Sevelamer Carbonate (Renvela) 800 mg WITH MEALS PO Last administered on 11/06/18 11:33; Admin Dose 800 MG; Start 10/25/18 at 07:35 Midodrine (Proamatine) 5 mg TID@,13,17 PO Last administered on 11/06/18 13:52; Admin Dose 5 MG; Start 10/26/18 at 09:00 Lidocaine (Xylocaine 1% (Mdv) 20 ml) 1 ml WITH DIALYSIS PRN INJ PRIOR TO CAN ULLATION/HD; Start 10/26/18 at 12:30 Ondansetron HCl (Zofran Inj) 4 mg Q4H PRN IV NAUSEA AND/OR VOMITING Last administered on 11/01/18 14:06; Admin Dose 4 MG; Start 10/26/18 at 15:30 Morphine Sulfate (morphine) 2 mg Q4H PRN IV SEVERE PAIN LEVEL 7-10 Last administered on 11/06/18 10:18; Admin Dose 2 MG; Start 10/26/18 at 15:30 Epoetin Maxwell-epbx (Retacrit (Esrd)) 10,000 unit MoWeFr@1700 SC Last adm inistered on 11/02/18 17:33; Admin Dose 10,000 UNIT; Start 10/28/18 at 17:00 Oxacillin Sodium 2 gm/Sodium Chloride 50 ml @ 100 mls/hr Q6 IVPB Last administered on 11/06/18 11:33; Admin Dose 100 MLS/HR; Start 10/30/18 at 18:00 Mupirocin (Bactroban) 1 applic BID TOP Last administered on 11/06/18 13:52; Admin Dose 1 APPLIC; Start 11/02/18 at 13:30 NELY ACOSTA NP Nov 06, 2018 15:42
[2018-11-07] VITALS (27 sets, daily range): BP systolic 112–156; BP diastolic 71–101; PULSE 73–104; RESP 16–59
[2018-11-07] MEDS: DIPHENHYDRAMINE 50 MG INJ IV PRN ×4 (06:13→23:46)
[2018-11-07] MEDS: morphine 2 MG INJ IV PRN ×3 (06:13→21:40)
[2018-11-07] MEDS: OXACILLIN 2 GM in SOD CHLORIDE 0.9% 50 ML IVPB SCH ×4 (06:13→23:46)
[2018-11-07] MEDS ORDERED: INSULIN REGULAR, HUMAN 100 UNIT/1 ML 3ML VIAL IVP STA (07:38)
[2018-11-07] MEDS: SEVELAMER CARBONATE 800 MG TABLET PO SCH ×3 (07:55→17:46)
[2018-11-07] MEDS ORDERED: DEXTROSE 50% 50 ML SYRINGE IV PRN (08:00)
[2018-11-07] MEDS ORDERED: NA BICARBONATE 8.4% 50 ML SYG IV ONE (08:00)
[2018-11-07] MEDS: MUPIROCIN 2% 22 GM OINT TOP SCH ×2 (08:12→21:39)
[2018-11-07] MEDS: MIDODRINE 5 MG TAB PO SCH ×3 (08:13→17:00)
[2018-11-07] MEDS: ONDANSETRON 4 MG INJ IV PRN (09:33)
[2018-11-07] MEDS ORDERED: HEPARIN 1000 UNITS/ML 10 ML INJ ONE (09:59)
[2018-11-07] MEDS ORDERED: LIDOCAINE 1% (MDV) 20 ML INJ ONE ×2 (09:59→11:32)
[2018-11-07] MEDS ORDERED: MIDAZOLAM 1 MG/ML 2 ML INJ ONE (10:00)
[2018-11-07] MEDS ORDERED: FENTAnyl 50 MCG/ML VIAL ONE (10:00)
[2018-11-07] MEDS ORDERED: IODIXANOL LOCM 50 ML BTL ONE (11:33)
--- NOTE | 2018-11-07 11:45 | CONS ---
Assessment/Plan Assessment/Plan Hospital Course (Demo Recall) IMPRESSION: 1. Bacteremia, assess for endocarditis, intracardiac source of infection. s/p AMANDA 11/04 with no definite signs intracardiac infection 2. Abnormal electrocardiogram with lateral T-wave inversion. 3. Hypertension, mainly diastolic labile, currently improved. 4. Leukemia. 5. Anemia. 6. Initial hypotension. Initially with midodrine- somewhat labile but not requiring midodrine Recc: -Tele -continue abx's and f/u cx data -For placement of permacath today -HD for volume removal Consultation Date/Type/Reason Admit Date/Time Oct 25, 2018 at 04:13 Initial Consult Date 10/25/18 Type of Consult Cardiology Reason for Consultation bacteremia Requesting Provider: LUANNE WALTER MD Date/Time of Note DATE: 11/07/18 TIME: 11:43 Exam/Review of Systems Vital Signs Vitals Vital Signs Date Temp Pulse Resp B/P (MAP) Pulse Ox O2 O2 Flow FiO2 Time Delivery Rate 11/07/18 98.0 77 17 112/73 97 07:26 (86) 11/07/18 Room Air 04:00 Intake and Output 11/06/18 11/06/18 11/07/18 1515:00 23:00 07:00 IntakeIntake Total 770 ml 290 ml 550 ml BalanceBalance 770 ml 290 ml 550 ml Exam Exam Review of Systems: CONSTITUTIONAL: No fevers, chills. PULMONARY: No sob CARDIOVASCULAR: No chest pain/palpitations GASTROINTESTINAL: No nausea/vomiting. GENITOURINARY: No hematuria/dysuria. MUSCULOSKELETAL: pain in groin area PSYCHIATRIC: The patient denies depression. NEUROLOGIC: No weakness Constitutional: alert Psych: no complaints Head: normocephalic ENMT: mucosa pink and moist Neck: supple, jvd (9 cm water) Respiratory: clear to auscultation Cardiovascular: regular rate and rhythm Gastrointestinal: soft, non-tender Musculoskeletal: muscle tone (norrmal) Extremities: edema (none) 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: other (No focal deficits) Labs Result Diagram: 11/07/18 0642 11/07/18 0642 Results 24hrs Laboratory Tests Test 11/06/18 13:56 11/07/18 06:42 11/07/18 09:19 11/07/18 09:43 Sodium Level 140 142 Potassium Level 5.5 H 6.4 *H Chloride Level 99 101 Carbon Dioxide Level 24 21 Anion Gap 17 H 20 H Blood Urea Nitrogen 65 H 74 H Creatinine 10.96 H 12.22 H Est Glomerular 4 L 4 L Filtrat Rate mL/min Glucose Level 82 69 #L Calcium Level 8.5 8.4 White Blood Count 5.5 Red Blood Count 3.41 L Hemoglobin 10.5 L Hematocrit 34.2 L Mean Corpuscular 100.3 Volume Mean Corpuscular 30.8 Hemoglobin Mean Corpuscular 30.7 L Hemoglobin Concent Red Cell 17.2 H Distribution Width Platelet Count 236 Mean Platelet Volume 10.1 Immature 0.400 Granulocytes % Neutrophils % 58.1 Lymphocytes % 29.9 Monocytes % 6.9 Eosinophils % 3.6 Basophils % 1.1 Nucleated Red Blood 0.0 Cells % Immature 0.020 Granulocytes # Neutrophils # 3.2 Lymphocytes # 1.6 Monocytes # 0.4 Eosinophils # 0.2 Basophils # 0.1 Nucleated Red Blood 0.0 Cells # Bedside Glucose 72 285 H Medications Medications Current Medications Albumin Human 100 ml @ 100 mls/hr WITH DIALYSIS PRN IV SBP <90 DURING DIALYSIS Last administered on 10/24/18 21:00; Admin Dose 100 MLS/HR; Start 10/24/18 at 18:00 Heparin Sodium (Porcine) (Heparin (1000 Units/ml)) 5,200 unit AFTER DIALYSIS CATHETER Last administered on 11/04/18 12:31; Admin Dose 5,200 UNIT; Start 10/24/18 at 22:30 Sodium Chloride 250 ml @ 250 mls/hr Q1H PRN IV tachycardia Last administered on 10/25/18 02:24; Admin Dose 250 MLS/HR; Start 10/25/18 at 01:00 Diphenhydramine HCl (Benadryl) 25 mg Q6H PRN IV ALLERGIC REACTION Last administered on 11/07/18 06:13; Admin Dose 25 MG; Start 10/25/18 at 01:00 Acetaminophen (Tylenol Tab) 650 mg Q4 PRN PO FEVER Last administered on 10/29/18 18:43; Admin Dose 650 MG; Start 10/25/18 at 01:00 Sevelamer Carbonate (Renvela) 800 mg WITH MEALS PO Last administered on 11/06/18 17:30; Admin Dose 800 MG; Start 10/25/18 at 07:35 Midodrine (Proamatine) 5 mg TID@09,13,17 PO Last administered on 11/06/18 13:52; Admin Dose 5 MG; Start 10/26/18 at 09:00 Lidocaine (Xylocaine 1% (Mdv) 20 ml) 1 ml WITH DIALYSIS PRN INJ PRIOR TO CANULLATION/HD; Start 10/26/18 at 12:30 Ondansetron HCl (Zofran Inj) 4 mg Q4H PRN IV NAUSEA AND/OR VOMITING Last administered on 11/07/18 09:33; Admin Dose 4 MG; Start 10/26/18 at 15:30 Morphine Sulfate (morphine) 2 mg Q4H PRN IV SEVERE PAIN LEVEL 7-10 Last administered on 11/07/18 06:13; Admin Dose 2 MG; Start 10/26/18 at 15:30 Epoetin Maxwell-epbx (Retacrit (Esrd)) 10,000 unit MoWeFr@1700 SC Last administered on 11/02/18 17:33; Admin Dose 10,000 UNIT; Start 10/28/18 at 17:00 Oxacillin Sodium 2 gm/Sodium Chloride 50 ml @ 100 mls/hr Q6 IVPB Last a dministered on 11/07/18 06:13; Admin Dose 100 MLS/HR; Start 10/30/18 at 18:00 Mupirocin (Bactroban) 1 applic BID TOP Last administered on 11/07/18 08:12; Admin Dose 1 APPLIC; Start 11/02/18 at 13:30 Dextrose (D50w Syringe) ONCE PRN IV DECREASED GLUCOSE Last administered on 11/07/18 09:20; Admin Dose 100 ML; Start 11/07/18 at 08:00; Stop 11/07/18 at 13:00 HENRIQUE GARCIA Nov 07, 2018 11:45
--- NOTE | 2018-11-07 11:47 | CONS ---
Assessment/Plan Assessment/Plan Assessment/Plan (Daily) 1. Septic shock s/p Levophed 2. ESRD on HD MWF schedule , left femoral permacath for HD access 3. Bacteremia with Blood cx growing staph aureus 4. H/o Leukemia currently on chemotherapy, last chem on 10/21/18 5. H/o Primary hyperparathyroidism, status post complete parathyroidectomy and partial left thyroid lobectomy 2 years ago. 6. H/o Anemia of ESRD 7, Difficult vascular Access Plan: s/p removal of left permacath on 11/04/18- pt remained line free for 3 days then reinsertion of Right groin permacath on 11/07/18- s/p HD today 3.2 L removed staph aureus bacteremia - IV abx oxacillin 2 gram IV Q 6 hr - ID following Continue other home medications, Midodrine 5 mg PO TID for BP support will keep pt on MWF schedule will follow up Consultation Date/Type/Reason Admit Date/Time Oct 25, 2018 at 04:13 Initial Consult Date Type of Consult NEPHROLOGY Requesting Provider: LUANNE WALTER MD Date/Time of Note DATE: 11/07/18 TIME: 11:47 24 HR Interval Summary Free Text/Dictation s/p removal of left permacath on 11/04/18- pt remained line free for 3 days then reinsertion of Right groin permacath on 11/07/18- s/p HD today 3.2 L removed Exam/Review of Systems Exam Vitals Vital Signs Date Temp Pulse Resp B/P (MAP) Pulse Ox O2 O2 Flow FiO2 Time Delivery Rate 11/07/18 98.0 77 17 112/73 97 07:26 (86) 11/07/18 Room Air 04:00 Intake and Output 11/06/18 11/06/18 11/07/18 1515:00 23:00 07:00 IntakeIntake Total 770 ml 290 ml 550 ml BalanceBalance 770 ml 290 ml 550 ml Results Result Diagram: 11/07/18 0642 11/07/18 0642 Results 24hrs Laboratory Tests Test 11/06/18 13:56 11/07/18 06:42 11/07/18 09:19 11/07/18 09:43 Sodium Level 140 142 Potassium Level 5.5 H 6.4 *H Chloride Level 99 101 Carbon Dioxide Level 24 21 Anion Gap 17 H 20 H Blood Urea Nitrogen 65 H 74 H Creatinine 10.96 H 12.22 H Est Glomerular 4 L 4 L Filtrat Rate mL/min Glucose Level 82 69 #L Calcium Level 8.5 8.4 White Blood Count 5.5 Red Blood Count 3.41 L Hemoglobin 10.5 L Hematocrit 34.2 L Mean Corpuscular 100.3 Volume Mean Corpuscular 30.8 Hemoglobin Mean Corpuscular 30.7 L Hemoglobin Concent Red Cell 17.2 H Distribution Width Platelet Count 236 Mean Platelet Volume 10.1 Immature 0.400 Granulocytes % Neutrophils % 58.1 Lymphocytes % 29.9 Monocytes % 6.9 Eosinophils % 3.6 Basophils % 1.1 Nucleated Red Blood 0.0 Cells % Immature 0.020 Granulocytes # Neutrophils # 3.2 Lymphocytes # 1.6 Monocytes # 0.4 Eosinophils # 0.2 Basophils # 0.1 Nucleated Red Blood 0.0 Cells # Bedside Glucose 72 285 H Medications Medication Current Medications Albumin Human 100 ml @ 100 mls/hr WITH DIALYSIS PRN IV SBP <90 DURING DIALYSIS Last administered on 10/24/18 21:00; Admin Dose 100 MLS/HR; Start 10/24/18 at 18:00 Heparin Sodium (Porcine) (Heparin (1000 Units/ml)) 5,200 unit AFTER DIALYSIS CATHETER Last administered on 11/04/18 12:31; Admin Dose 5,200 UNIT; Start 10/24/18 at 22:30 Sodium Chloride 250 ml @ 250 mls/hr Q1H PRN IV tachycardia Last administered on 10/25/18 02:24; Admin Dose 250 MLS/HR; Start 10/25/18 at 01:00 Diphenhydramine HCl (Benadryl) 25 mg Q6H PRN IV ALLERGIC REACTION Last administered on 11/07/18 06:13; Admin Dose 25 MG; Start 10/25/18 at 01:00 Acetaminophen (Tylenol Tab) 650 mg Q4 PRN PO FEVER Last administered on 10/29/18 18:43; Admin Dose 650 MG; Start 10/25/18 at 01:00 Sevelamer Carbonate (Renvela) 800 mg WITH MEALS PO Last administered on 9at 17:30; Admin Dose 800 MG; Start 10/25/18 at 07:35 Midodrine (Proamatine) 5 mg TID@09,13,17 PO Last administered on 11/06/18 13:52; Admin Dose 5 MG; Start 10/26/18 at 09:00 Lidocaine (Xylocaine 1% (Mdv) 20 ml) 1 ml WITH DIALYSIS PRN INJ PRIOR TO CANULLATION/HD; Start 10/26/18 at 12:30 Ondansetron HCl (Zofran Inj) 4 mg Q4H PRN IV NAUSEA AND/OR VOMITING Last administered on 11/07/18 09:33; Admin Dose 4 MG; Start 10/26/18 at 15:30 Morphine Sulfate (morphine) 2 mg Q4H PRN IV SEVERE PAIN LEVEL 7-10 Last administered on 11/07/18 06:13; Admin Dose 2 MG; Start 10/26/18 at 15:30 Epoetin Maxwell-epbx (Retacrit (Esrd)) 10,000 unit MoWeFr@1700 SC Last administered on 11/02/18 17:33; Admin Dose 10,000 UNIT; Start 10/28/18 at 17:00 Oxacillin Sodium 2 gm/Sodium Chloride 50 ml @ 100 mls/hr Q6 IVPB Last administered on 11/07/18 06:13; Admin Dose 100 MLS/HR; Start 10/30/18 at 18:00 Mupirocin (Bactroban) 1 applic BID TOP Last administered on 11/07/18 08:12; Admin Dose 1 APPLIC; Start 11/02/18 at 13:30 Dextrose (D50w Syringe) ONCE PRN IV DECREASED GLUCOSE Last administered on 11/07/18 09:20; Admin Dose 100 ML; Start 11/07/18 at 08:00; Stop 11/07/18 at 13:00 HENRIQUE GRANADO MD Nov 07, 2018 11:47
--- NOTE | 2018-11-07 14:55 | RADRPT ---
PROCEDURE: PLACEMENT RIGHT COMMON FEMORAL VEIN TUNNELED DIALYSIS CATHETER. CLINICAL INDICATION: Renal failure. TECHNIQUE: Informed consent was obtained. Risks including bleeding and infection were explained to the patient. The patient understood and was willing to proceed. A procedural pause was performed. The patient's na me, date of , and procedure to be performed were verified. The central line was inserted with al l elements of maximal sterile barrier technique. All of the following were used: head covering, facia l mask, sterile gown, sterile gloves, a large sterile sheet, hand hygiene, and 2% chlorhexidine for cutaneous antisepsis. The right groin and right thigh were prepped and draped in usual sterile fashi on. Following the local injection of Xylocaine, the right common femoral vein was punctured under sonogra [facility] guidance with a 20-gauge needle through which a 0.018 inch floppy tip guidewire was advanced int o the inferior vena cava. The tract was dilated to 5 [place]e and the wire was then replaced with a 0.0 35 in Amplatz guidewire. A tunnel was then created from the anterior right thigh to the puncture sit e in the right inguinal region and the catheter was pulled through the tract. Serial dilatation was then performed and a 16 [place]e peel away sheath was introduced. The 14.5 [place]e Palindrome dialysis catheter was advanced through the 16 [place]e peel-away sheath. The tip of the catheter was confirmed in position within the right atrium. The peel-away sheath was joseph shawn. The 2 ports were each flushed with 3.1 ml of 1:1000 heparin. The catheter was secured to the skin wi th 2-0 silk. The wound in the inguinal region was closed with 4-0 Vicryl suture using subcuticular r unning technique. The site was dressed. Specimens: None. Blood loss: 5 ml. Complications: None. Museum Exhibit Technician: None. Anesthesia: Local and moderate sedation. Graft/Implant: Right common femoral vein tunneled dialysis catheter. COMPARISON: None. FINDINGS: Ultrasound images were recorded and stored in the patient's medical record. Final radiographic images demonstrate the tip of the catheter in the upper right atrium. A total of 1.2minutes of fluoroscopy time was used. The ultrasound images demonstrate the needle entering the f emoral vein. 4 images of the abdomen and chest were obtained with image intensifier. IMPRESSION: 1. Satisfactory placement of tunneled right femoral dialysis catheter. RPTAT: QQ Cornell Steele Physician Date Time Electronically viewed and signed by Cornell Steele Physician on 11/07/2018 14:55 RD/
[2018-11-07] MEDS: HEPARIN 1000 UNITS/ML 10 ML INJ CATHETER PRN (16:11)
--- NOTE | 2018-11-07 16:47 | PN ---
Date/Time of Note Date/Time of Note DATE: 11/07/18 TIME: 16:45 Assessment/Plan VTE Prophylaxis Risk score (from Nsg)>0 risk: 1 SCD applied (from Nsg): Yes Pharmacological prophylaxis: heparin Lines/Catheters IV Catheter Type (from Nrsg): Mid Line Central line still needed: Yes Urinary Cath still in place: No Assessment/Plan Hospital Course Patient is status post right femoral hemodialysis catheter placement, and left femoral hemodialysis catheter removal. Patient is undergoing hemodialysis denies any chest pain denies fever. Assessment/Plan -Sepsis with DIMITRI bacteremia with fevers, leukocytosis, and hypotension. patient is currently continued on oxacillin 2 g every 6 hours Continue antibiotics per ID. Dr. Arora is following in ID consultation. AMANDA is negative for vegetation. Dr. Barrera is following in cardiology consultation. -Hemodialysis dependent end-stage renal disease, continue dialysis per nephrology. Dr. Beltran is following in nephrology consultation. -Leukemia, patient is undergoing chemotherapy last chemo was on Wednesday10/11/18. -Anemia multifactorial chronic disease and recent chemo, status post blood transfusion, continue to monitor H&H, continue Epogen. -Mineral bone disease with renal osteodystrophy. No acute fractures, traumatic subluxations, osteomyelitis or diskitis per MRI of the lumbar spine. -Primary hyperparathyroidism, status post complete parathyroidectomy and partial left thyroid lobectomy 2 years ago. -Left femoral hemodialysis catheter present on admission. Further recommendations based on clinical course. Plan of care discussed with Dr. Turner. Result Diagram: 11/07/18 0642 11/07/18 0642 Results 24hrs Laboratory Tests Test 11/07/18 06:42 11/07/18 09:19 11/07/18 09:43 11/07/18 12:02 White Blood Count 5.5 Red Blood Count 3.41 L Hemoglobin 10.5 L Hematocrit 34.2 L Mean Corpuscular 100.3 Volume Mean Corpuscular 30.8 Hemoglobin Mean Corpuscular 30.7 L Hemoglobin Concent Red Cell 17.2 H Distribution Width Platelet Count 236 Mean Platelet Volume 10.1 Immature 0.400 Granulocytes % Neutrophils % 58.1 Lymphocytes % 29.9 Monocytes % 6.9 Eosinophils % 3.6 Basophils % 1.1 Nucleated Red Blood 0.0 Cells % Immature 0.020 Granulocytes # Neutrophils # 3.2 Lymphocytes # 1.6 Monocytes # 0.4 Eosinophils # 0.2 Basophils # 0.1 Nucleated Red Blood 0.0 Cells # Sodium Level 142 Potassium Level 6.4 *H Chloride Level 101 Carbon Dioxide Level 21 Anion Gap 20 H Blood Urea Nitrogen 74 H Creatinine 12.22 H Est Glomerular 4 L Filtrat Rate mL/min Glucose Level 69 #L Calcium Level 8.4 Bedside Glucose 72 285 H 62 L Test 11/07/18 12:19 11/07/18 12:49 Bedside Glucose 61 L 81 Subjective 24 Hr Interval Summary Free Text/Dictation Constitutional: alert Respiratory: clear to auscultation Cardiovascular: regular rate and rhythm Gastrointestinal: soft, non-tender Musculoskeletal: nl extremities to inspection Extremities: normal pulses 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: nl mental status Skin: nl turgor Additional Comments Right femoral hemodialysis catheter, left upper extremity AV fistula nonfun ctional Exam/Review of Systems Exam Vitals Vital Signs Date Temp Pulse Resp B/P (MAP) Pulse Ox O2 O2 Flow FiO2 Time Delivery Rate 11/07/18 97.9 85 17 113/90 100 15:57 (98) 11/07/18 Room Air 12:28 Intake and Output 11/06/18 11/06/18 11/07/18 1515:00 23:00 07:00 IntakeIntake Total 770 ml 290 ml 550 ml BalanceBalance 770 ml 290 ml 550 ml Results Results 24hrs Laboratory Tests Test 11/07/18 06:42 11/07/18 09:19 11/07/18 09:43 11/07/18 12:02 White Blood Count 5.5 Red Blood Count 3.41 L Hemoglobin 10.5 L Hematocrit 34.2 L Mean Corpuscular 100.3 Volume Mean Corpuscular 30.8 Hemoglobin Mean Corpuscular 30.7 L Hemoglobin Concent Red Cell 17.2 H Distribution Width Platelet Count 236 Mean Platelet Volume 10.1 Immature 0.400 Granulocytes % Neutrophils % 58.1 Lymphocytes % 29.9 Monocytes % 6.9 Eosinophils % 3.6 Basophils % 1.1 Nucleated Red Blood 0.0 Cells % Immature 0.020 Granulocytes # Neutrophils # 3.2 Lymphocytes # 1.6 Monocytes # 0.4 Eosinophils # 0.2 Basophils # 0.1 Nucleated Red Blood 0.0 Cells # Sodium Level 142 Potassium Level 6.4 *H Chloride Level 101 Carbon Dioxide Level 21 Anion Gap 20 H Blood Urea Nitrogen 74 H Creatinine 12.22 H Est Glomerular 4 L Filtrat Rate mL/min Glucose Level 69 #L Calcium Level 8.4 Bedside Glucose 72 285 H 62 L Test 11/07/18 12:19 11/07/18 12:49 Bedside Glucose 61 L 81 Medications Medication Current Medications Albumin Human 100 ml @ 100 mls/hr WITH DIALYSIS PRN IV SBP <90 DURING DIALYSIS Last administered on 10/24/18 21:00; Admin Dose 100 MLS/HR; Start 10/24/18 at 18:00 Sodium Chloride 250 ml @ 250 mls/hr Q1H PRN IV tachycardia Last administered on 10/25/18 02:24; Admin Dose 250 MLS/HR; Start 10/25/18 at 01:00 Diphenhydramine HCl (Benadryl) 25 mg Q6H PRN IV ALLERGIC REACTION Last administered on 11/07/18 12:16; Admin Dose 25 MG; Start 10/25/18 at 01:00 Acetaminophen (Tylenol Tab) 650 mg Q4 PRN PO FEVER Last administered on 10/29/18 18:43; Admin Dose 650 MG; Start 10/25/18 at 01:00 Sevelamer Carbonate (Renvela) 800 mg WITH MEALS PO Last administered on 11/06/18 17:30; Admin Dose 800 MG; Start 10/25/18 at 07:35 Midodrine (Proamatine) 5 mg TID@09,13,17 PO Last administered on 11/06/18 13:52; Admin Dose 5 MG; Start 10/26/18 at 09:00 Lidocaine (Xylocaine 1% (Mdv) 20 ml) 1 ml WITH DIALYSIS PRN INJ PRIOR TO CANULLATION/HD; Start 10/26/18 at 12:30 Ondansetron HCl (Zofran Inj) 4 mg Q4H PRN IV NAUSEA AND/OR VOMITING Last administered on 11/07/18 09:33; Admin Dose 4 MG; Start 10/26/18 at 15:30 Morphine Sulfate (morphine) 2 mg Q4H PRN IV SEVERE PAIN LEVEL 7-10 Last administered on 11/07/18 06:13; Admin Dose 2 MG; Start 10/26/18 at 15:30 Epoetin Maxwell-epbx (Retacrit (Esrd)) 10,000 unit MoWeFr@1700 SC Last administered on 11/02/18 17:33; Admin Dose 10,000 UNIT; Start 10/28/18 at 17:00 Oxacillin Sodium 2 gm/Sodium Chloride 50 ml @ 100 mls/hr Q6 IVPB Last administered on 11/07/18at 06:13; Admin Dose 100 MLS/HR; Start 10/30/18 at 18:00 Mupirocin (Bactroban) 1 applic BID TOP Last administered on 11/07/18 08:12; Admin Dose 1 APPLIC; Start 11/02/18 at 13:30 Heparin Sodium (Porcine) (Heparin (1000 Units/ml)) 6,100 unit AFTER DIALYSIS PRN CATHETER DIALYSIS Last administered on 11/07/18 16:11; Admin Dose 6,100 UNIT; Start 11/07/18 at 14:00 ERICK ROBERTSON Nov 07, 2018 16:47
[2018-11-07] MEDS: EPOETIN ALFA-EPBX (ESRD) 10,000 UNIT/ML VIAL SC SCH (17:46)
--- NOTE | 2018-11-07 18:34 | CONS ---
Assessment/Plan Assessment/Plan Hospital Course (Demo Recall) # sepsis, heme/onc - s/p sepsis due to bacteremia, recurrent. Resolved - s/p persistent and recurrent bacteremia on 10/24, 10/25, and 10/26 due to MSSA; repeat blood cultures on 10/28 & 11/02 were negative; transthoracic echo did not mention vegetation; AMANDA showed no vegetation - the source of her bacteremia was her HD catheter. No other focus of infection was found: WBC tagged scan on 11/05/2018 showed several non-specific foci of increased activity along R anterior chest wall;however, chest CT on 11/07/2018 showed no fluid collection identified within the chest wall. 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 Per Pt, she had pruritus, "bumps" and green discharge from the catheter site. Its culture on 10/31/2018 grew S. aureus. It was removed on 11/04/2018 - s/p placement of a new HD catheter on R groin on 11/07/2018 - h/o removal of permacath on R chest wall on 07/14/2018 - h/o R femoral HD justin catheter placement 07/14/2018, replaced by HD permacath 07/19/2018 - h/o pain/increased sensitivity of R groin after replacement of the Perez with permacath. soft tissue CHRISTEL on 07/20/2018 showed no abnormality at the site of the palpable lesion adjacent to R inguinal region HD catheter - h/o swelling on the scalp and chest wall, possibly due to collateral veins as a result of thrombosis of AVF - h/o removal and placement of a new Perez catheter in 05/2018. The culture of the tip of the removed catheter, blood cultures and swab of the catheter site were negative. 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 Last used for HD in 04/2018. Was scheduled to get a new graft [place] [facility] [place] - h/o 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 Pt took renally dosed valACV (07/15/2018-07/17/2018) - adverse reaction to vancomycin (pruritus) - adverse reaction to linezolid (thrombocytopenia). Linezolid was discontinued (06/12/2018-06/17/2018) - ?adverse reaction to cefazolin (severe abd pain/cramping, although pt tolerated a 14 day course of cefazolin in 06/2018) - painful nodule on L thumb; X-ray shows possible subcutaneous mass adjacent to the radial aspect of the first metacarpal. Recommendations: - continue renally dosed oxacillin 2gm IV q6 hours (10/30/2018-) for 2 weeks after removal of her HD catheter, i.e. 11/04/18-11/18/18 management d/w Pt Consultation Date/Type/Reason Admit Date/Time Oct 25, 2018 at 04:13 Initial Consult Date 10/25/18 Type of Consult ID Requesting Provider: LUANNE WALTER MD Date/Time of Note DATE: 11/07/18 TIME: 18:29 24 HR Interval Summary Free Text/Dictation a new HD catheter was placed in R groin Constitutional: no complaints Detailed Summary Eyes: no complaints ENT: no complaints Respiratory: no complaints Cardiovascular: no complaints Gastrointestinal: no complaints Genitourinary: bleeding (from two incision sites of R groin) Musculoskeletal: no complaints Skin: other (+pain from the new HD catheter site) Neurologic: no complaints Exam/Review of Systems Exam Vitals Vital Signs Date Temp Pulse Resp B/P (MAP) Pulse Ox O2 O2 Flow FiO2 Time Delivery Rate 11/07/18 95 16 125/94 96 Room Air 17:20 (104) 11/07/18 97.9 15:57 Intake and Output 11/06/18 11/06/18 11/07/18 1515:00 23:00 07:00 IntakeIntake Total 770 ml 290 ml 550 ml BalanceBalance 770 ml 290 ml 550 ml Constitutional: alert, oriented, well developed Psych: no complaints, nl mood/affect Head: normocephalic, other (alopecia) Eyes: nl conjunctiva ENMT: nl external ears & nose Neck: supple, non-tender Respiratory: clear to auscultation, normal air movement Cardiovascular: regular rate and rhythm, nl pulses; No edema Gastrointestinal: soft, non-tender; No distended, No tender Genitourinary - Female: other (two incision sites have soft scabs, a new HD catheter on R groin is clean) Musculoskeletal: nl extremities to inspection Extremities: other (+non-functioning AVG in LUE); No edema 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: 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, nl mental status Results Result Diagram: 11/07/18 0642 11/07/18 0642 Results 24hrs Laboratory Tests Test 11/07/18 06:42 11/07/18 09:19 11/07/18 09:43 11/07/18 12:02 White Blood Count 5.5 Red Blood Count 3.41 L Hemoglobin 10.5 L Hematocrit 34.2 L Mean Corpuscular 100.3 Volume Mean Corpuscular 30.8 Hemoglobin Mean Corpuscular 30.7 L Hemoglobin Concent Red Cell 17.2 H Distribution Width Platelet Count 236 Mean Platelet Volume 10.1 Immature 0.400 Granulocytes % Neutrophils % 58.1 Lymphocytes % 29.9 Monocytes % 6.9 Eosinophils % 3.6 Basophils % 1.1 Nucleated Red Blood 0.0 Cells % Immature 0.020 Granulocytes # Neutrophils # 3.2 Lymphocytes # 1.6 Monocytes # 0.4 Eosinophils # 0.2 Basophils # 0.1 Nucleated Red Blood 0.0 Cells # Sodium Level 142 Potassium Level 6.4 *H Chloride Level 101 Carbon Dioxide Level 21 Anion Gap 20 H Blood Urea Nitrogen 74 H Creatinine 12.22 H Est Glomerular 4 L Filtrat Rate mL/min Glucose Level 69 #L Calcium Level 8.4 Bedside Glucose 72 285 H 62 L Test 11/07/18 12:19 11/07/18 12:49 Bedside Glucose 61 L 81 Medications Medication Current Medications Albumin Human 100 ml @ 100 mls/hr WITH DIALYSIS PRN IV SBP <90 DURING DIALYSIS Last administered on 10/24/18 21:00; Admin Dose 100 MLS/HR; Start 10/24/18 at 18:00 Sodium Chloride 250 ml @ 250 mls/hr Q1H PRN IV tachycardia Last administered on 10/25/18 02:24; Admin Dose 250 MLS/HR; Start 10/25/18 at 01:00 Diphenhydramine HCl (Benadryl) 25 mg Q6H PRN IV ALLERGIC REACTION Last administered on 11/07/18 18:04; Admin Dose 25 MG; Start 10/25/18 at 01:00 Acetaminophen (Tylenol Tab) 650 mg Q4 PRN PO FEVER Last administered on 10/29/18 18:43; Admin Dose 650 MG; Start 10/25/18 at 01:00 Sevelamer Carbonate (Renvela) 800 mg WITH MEALS PO Last administered on 11/07/18 17:46; Admin Dose 800 MG; Start 10/25/18 at 07:35 Midodrine (Proamatine) 5 mg TID@09,13,17 PO Last administered on 11/06/18 13:52; Admin Dose 5 MG; Start 10/26/18 at 09:00 Lidocaine (Xylocaine 1% (Mdv) 20 ml) 1 ml WITH DIALYSIS PRN INJ PRIOR TO CANULLATION/HD; Start 10/26/18 at 12:30 Ondansetron HCl (Zofran Inj) 4 mg Q4H PRN IV NAUSEA AND/OR VOMITING Last administered on 11/07/18 09:33; Admin Dose 4 MG; Start 10/26/18 at 15:30 Morphine Sulfate (morphine) 2 mg Q4H PRN IV SEVERE PAIN LEVEL 7-10 Last administered on 11/07/18 17:47; Admin Dose 2 MG; Start 10/26/18 at 15:30 Epoetin Maxwell-epbx (Retacrit (Esrd)) 10,000 unit MoWeFr@1700 SC Last administered on 11/07/18 17:46; Admin Dose 10,000 UNIT; Start 10/28/18 at 17:00 Oxacillin Sodium 2 gm/Sodium Chloride 50 ml @ 100 mls/hr Q6 IVPB Last administered on 11/07/18 17:45; Admin Dose 100 MLS/HR; Start 10/30/18 at 18:00 Mupirocin (Bactroban) 1 applic BID TOP Last administered on 11/07/18at 08:12; Admin Dose 1 APPLIC; Start 11/02/18 at 13:30 Heparin Sodium (Porcine) (Heparin (1000 Units/ml)) 6,100 unit AFTER DIALYSIS PRN CATHETER DIALYSIS Last administered on 11/07/18 16:11; Admin Dose 6,100 UNIT; Start 11/07/18 at 14:00 GINGER HARDIN M.D. Nov 07, 2018 18:34
[2018-11-08] VITALS (22 sets, daily range): BP systolic 91–141; BP diastolic 56–104; PULSE 57–124; RESP 16–22; Ht 157.5 cm; Wt 55.5 kg
[2018-11-08] MEDS: morphine 2 MG INJ IV PRN ×3 (04:38→15:16)
[2018-11-08] MEDS: OXACILLIN 2 GM in SOD CHLORIDE 0.9% 50 ML IVPB SCH ×4 (04:39→22:52)
[2018-11-08] MEDS ORDERED: NA POLYST SULFON 15 GM/60 ML BTL PO STA (07:53)
[2018-11-08] MEDS: MIDODRINE 5 MG TAB PO SCH ×3 (08:26→17:00)
[2018-11-08] MEDS: MUPIROCIN 2% 22 GM OINT TOP SCH ×2 (08:27→22:50)
[2018-11-08] MEDS: SEVELAMER CARBONATE 800 MG TABLET PO SCH ×3 (08:27→17:31)
[2018-11-08] MEDS: DIPHENHYDRAMINE 50 MG INJ IV PRN ×3 (12:08→23:42)
--- NOTE | 2018-11-08 14:41 | CONS ---
Consultation Date/Type/Reason Admit Date/Time Oct 25, 2018 at 04:13 Initial Consult Date 10/25/18 Type of Consult Cardiology Requesting Provider: LUANNE WALTER MD Date/Time of Note DATE: 11/08/18 TIME: 14:40 24 HR Interval Summary Free Text/Dictation vs reviewed - stable Exam/Review of Systems Vital Signs Vitals Vital Signs Date Temp Pulse Resp B/P (MAP) Pulse Ox O2 O2 Flow FiO2 Time Delivery Rate 11/08/18 117 14:30 11/08/18 16 115/78 97 Room Air 11:45 (90) 11/08/18 98.5 11:24 Intake and Output 11/07/18 11/07/18 11/08/18 1515:00 23:00 07:00 IntakeIntake Total 300 ml 700 ml 420 ml OutputOutput Total 3700 ml BalanceBalance 300 ml -3000 ml 420 ml Labs Result Diagram: 11/08/18 0610 11/08/18 0610 Results 24hrs Laboratory Tests Test 11/08/18 06:10 White Blood Count 5.7 Red Blood Count 3.19 L Hemoglobin 10.1 L Hematocrit 32.3 L Mean Corpuscular Volume 101.3 H Mean Corpuscular Hemoglobin 31.7 Mean Corpuscular Hemoglobin Concent 31.3 L Red Cell Distribution Width 17.2 H Platelet Count 207 Mean Platelet Volume 10.1 Immature Granulocytes % 0.400 Neutrophils % 72.0 Lymphocytes % 18.2 Monocytes % 6.9 Eosinophils % 1.8 Basophils % 0.7 Nucleated Red Blood Cells % 0.0 Immature Granulocytes # 0.020 Neutrophils # 4.1 Lymphocytes # 1.0 Monocytes # 0.4 Eosinophils # 0.1 Basophils # 0.0 Nucleated Red Blood Cells # 0.0 Sodium Level 140 Potassium Level 6.7 *H Chloride Level 100 Carbon Dioxide Level 28 Anion Gap 12 # Blood Urea Nitrogen 40 #H Creatinine 7.59 #H Est Glomerular Filtrat Rate mL/min 6 L Glucose Level 75 Calcium Level 7.8 L Medications Medications Current Medications Albumin Human 100 ml @ 100 mls/hr WITH DIALYSIS PRN IV SBP <90 DURING DIALYSIS Last administered on 10/24/18at 21:00; Admin Dose 100 MLS/HR; Start 10/24/18 at 18:00 Sodium Chloride 250 ml @ 250 mls/hr Q1H PRN IV tachycardia Last administered on 10/25/18 02:24; Admin Dose 250 MLS/HR; Start 10/25/18 at 01:00 Diphenhydramine HCl (Benadryl) 25 mg Q6H PRN IV ALLERGIC REACTION Last administered on 11/08/18 12:08; Admin Dose 25 MG; Start 10/25/18 at 01:00 Acetaminophen (Tylenol Tab) 650 mg Q4 PRN PO FEVER Last administered on 10/29/18 18:43; Admin Dose 650 MG; Start 10/25/18 at 01:00 Sevelamer Carbonate (Renvela) 800 mg WITH MEALS PO Last administered on 11/08/18 12:08; Admin Dose 800 MG; Start 10/25/18 at 07:35 Midodrine (Proamatine) 5 mg TID@09,13,17 PO Last administered on 11/08/18 08:26; Admin Dose 5 MG; Start 10/26/18 at 09:00 Lidocaine (Xylocaine 1% (Mdv) 20 ml) 1 ml WITH DIALYSIS PRN INJ PRIOR TO CANULLATION/HD; Start 10/26/18 at 12:30 Ondansetron HCl (Zofran Inj) 4 mg Q4H PRN IV NAUSEA AND/OR VOMITING Last administered on 11/07/18 09:33; Admin Dose 4 MG; Start 10/26/18 at 15:30 Morphine Sulfate (morphine) 2 mg Q4H PRN IV SEVERE PAIN LEVEL 7-10 Last administered on 11/08/18 10:29; Admin Dose 2 MG; Start 10/26/18 at 15:30 Epoetin Maxwell-epbx (Retacrit (Esrd)) 10,000 unit MoWeFr@1700 SC Last administered on 11/07/18 17:46; Admin Dose 10,000 UNIT; Start 10/28/18 at 17:00 Oxacillin Sodium 2 gm/Sodium Chloride 50 ml @ 100 mls/hr Q6 IVPB Last administered on 11/08/18 04:39; Admin Dose 100 MLS/HR; Start 10/30/18 at 18:00 Mupirocin (Bactroban) 1 applic BID TOP Last administered on 11/08/18 08:27; Admin Dose 1 APPLIC; Start 11/02/18 at 13:30 Heparin Sodium (Porcine) (Heparin (1000 Units/ml)) 6,100 unit AFTER DIALYSIS PRN CATHETER DIALYSIS Last administered on 11/07/18at 16:11; Admin Dose 6,100 UNIT; Start 11/07/18 at 14:00 YUMIKO HO MD Nov 08, 2018 14:41
[2018-11-08] MEDS: HEPARIN 1000 UNITS/ML 10 ML INJ CATHETER PRN (14:54)
--- NOTE | 2018-11-08 15:23 | CONS ---
Assessment/Plan Assessment/Plan Hospital Course (Demo Recall) # sepsis, heme/onc - s/p sepsis due to bacteremia, recurrent. Resolved - s/p persistent and recurrent bacteremia on 10/24, 10/25, and 10/26 due to MSSA; repeat blood cultures on 10/28 & 11/02 were negative; transthoracic echo did not mention vegetation; AMANDA showed no vegetation - the source of her bacteremia was her HD catheter. No other focus of infection was found: WBC tagged scan on 11/05/2018 showed several non-specific foci of increased activity along R anterior chest wall;however, chest CT on 11/07/2018 showed no fluid collection identified within the chest wall. 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 Per Pt, she had pruritus, "bumps" and green discharge from the catheter site. Its culture on 10/31/2018 grew S. aureus. It was removed on 11/04/2018 - s/p placement of a new HD catheter on R groin on 11/07/2018 - h/o removal of permacath on R chest wall on 07/14/2018 - h/o R femoral HD justin catheter placement 07/14/2018, replaced by HD permacath 07/19/2018 - h/o pain/increased sensitivity of R groin after replacement of the Perez with permacath. soft tissue CHRISTEL on 07/20/2018 showed no abnormality at the site of the palpable lesion adjacent to R inguinal region HD catheter - h/o swelling on the scalp and chest wall, possibly due to collateral veins as a result of thrombosis of AVF - h/o removal and placement of a new Perez catheter in 05/2018. The culture of the tip of the removed catheter, blood cultures and swab of the catheter site were negative. 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 Last used for HD in 04/2018. Was scheduled to get a new graft in [facility] as outpatient - h/o 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 Pt took renally dosed valACV (07/15/2018-07/17/2018) - adverse reaction to vancomycin (pruritus) - adverse reaction to linezolid (thrombocytopenia). Linezolid was discontinued (06/12/2018-06/17/2018) - ?adverse reaction to cefazolin (severe abd pain/cramping, although pt tolerated a 14 day course of cefazolin in 06/2018) - painful nodule on L thumb; X-ray shows possible subcutaneous mass adjacent to the radial aspect of the first metacarpal. Recommendations: - ordered: soft tissue CHRISTEL of R groin to eval hematoma - continue renally dosed oxacillin 2gm IV q6 hours (10/30/2018-) for 2 weeks after removal of her HD catheter, i.e. 11/04/18-11/18/18. management d/w Pt, her mother and SWITCHING CL[employer] Nikita Consultation Date/Type/Reason Admit Date/Time Oct 25, 2018 at 04:13 Initial Consult Date 10/25/18 Type of Consult ID Requesting Provider: LUANNE WALTER MD Date/Time of Note DATE: 11/08/18 TIME: 15:10 24 HR Interval Summary Constitutional: no complaints Detailed Summary Eyes: no complaints ENT: no complaints Respiratory: no complaints Cardiovascular: no complaints Gastrointestinal: no complaints Genitourinary: other (on HD) Musculoskeletal: no complaints Skin: other (+bleeding from the other incision sites of R groin) Neurologic: no complaints Exam/Review of Systems Exam Vitals Vital Signs Date Temp Pulse Resp B/P (MAP) Pulse Ox O2 O2 Flow FiO2 Time Delivery Rate 11/08/18 117 14:30 11/08/18 16 115/78 97 Room Air 11:45 (90) 11/08/18 98.5 11:24 Intake and Output 11/07/18 11/07/18 11/08/18 1515:00 23:00 07:00 IntakeIntake Total 300 ml 700 ml 420 ml OutputOutput Total 3700 ml BalanceBalance 300 ml -3000 ml 420 ml Constitutional: alert, oriented, well developed Psych: no complaints, nl mood/affect Head: normocephalic, other (alopecia) Eyes: nl conjunctiva ENMT: nl external ears & nose, nl nasal mucosa & septum Neck: supple Respiratory: normal air movement Cardiovascular: nl pulses, other (R sandro is dressed, c/d/i) Gastrointestinal: soft; No distended, No tender Musculoskeletal: No swelling Extremities: other (R groin: HD catheter and the incision sites are dressed c/d/i); No edema 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: nl mental status, nl speech Skin: nl turgor; No ecchymosis Results Result Diagram: 11/08/18 0610 11/08/18 0610 Results 24hrs Laboratory Tests Test 11/08/18 06:10 White Blood Count 5.7 Red Blood Count 3.19 L Hemoglobin 10.1 L Hematocrit 32.3 L Mean Corpuscular Volume 101.3 H Mean Corpuscular Hemoglobin 31.7 Mean Corpuscular Hemoglobin Concent 31.3 L Red Cell Distribution Width 17.2 H Platelet Count 207 Mean Platelet Volume 10.1 Immature Granulocytes % 0.400 Neutrophils % 72.0 Lymphocytes % 18.2 Monocytes % 6.9 Eosinophils % 1.8 Basophils % 0.7 Nucleated Red Blood Cells % 0.0 Immature Granulocytes # 0.020 Neutrophils # 4.1 Lymphocytes # 1.0 Monocytes # 0.4 Eosinophils # 0.1 Basophils # 0.0 Nucleated Red Blood Cells # 0.0 Sodium Level 140 Potassium Level 6.7 *H Chloride Level 100 Carbon Dioxide Level 28 Anion Gap 12 # Blood Urea Nitrogen 40 #H Creatinine 7.59 #H Est Glomerular Filtrat Rate mL/min 6 L Glucose Level 75 Calcium Level 7.8 L Medications Medication Current Medications Albumin Human 100 ml @ 100 mls/hr WITH DIALYSIS PRN IV SBP <90 DURING DIALYSIS Last administered on 10/24/18 21:00; Admin Dose 100 MLS/HR; Start 10/24/18 at 18:00 Sodium Chloride 250 ml @ 250 mls/hr Q1H PRN IV tachycardia Last administered on 10/25/18 02:24; Admin Dose 250 MLS/HR; Start 10/25/18 at 01:00 Diphenhydramine HCl (Benadryl) 25 mg Q6H PRN IV ALLERGIC REACTION Last administered on 11/08/18 12:08; Admin Dose 25 MG; Start 10/25/18 at 01:00 Acetaminophen (Tylenol Tab) 650 mg Q4 PRN PO FEVER Last administered on 10/29/18 18:43; Admin Dose 650 MG; Start 10/25/18 at 01:00 Sevelamer Carbonate (Renvela) 800 mg WITH MEALS PO Last administered on 11/08/18 12:08; Admin Dose 800 MG; Start 10/25/18 at 07:35 Midodrine (Proamatine) 5 mg TID@09,13,17 PO Last administered on 11/08/18 08:26; Admin Dose 5 MG; Start 10/26/18 at 09:00 Lidocaine (Xylocaine 1% (Mdv) 20 ml) 1 ml WITH DIALYSIS PRN INJ PRIOR TO CANULLATION/HD; Start 10/26/18 at 12:30 Ondansetron HCl (Zofran Inj) 4 mg Q4H PRN IV NAUSEA AND/OR VOMITING Last administered on 11/07/18 09:33; Admin Dose 4 MG; Start 10/26/18 at 15:30 Morphine Sulfate (morphine) 2 mg Q4H PRN IV SEVERE PAIN LEVEL 7-10 Last administered on 11/08/18 10:29; Admin Dose 2 MG; Start 10/26/18 at 15:30 Epoetin Maxwell-epbx (Retacrit (Esrd)) 10,000 unit MoWeFr@1700 SC Last administered on 11/07/18 17:46; Admin Dose 10,000 UNIT; Start 10/28/18 at 17:00 Oxacillin Sodium 2 gm/Sodium Chloride 50 ml @ 100 mls/hr Q6 IVPB Last administered on 11/08/18 04:39; Admin Dose 100 MLS/HR; Start 10/30/18 at 18:00 Mupirocin (Bactroban) 1 applic BID TOP Last administered on 11/08/18 08:27; Admin Dose 1 APPLIC; Start 11/02/18 at 13:30 Heparin Sodium (Porcine) (Heparin (1000 Units/ml)) 6,100 unit AFTER DIALYSIS PRN CATHETER DIALYSIS Last administered on 11/08/18at 14:54; Admin Dose 6,100 UNIT; Start 11/07/18 at 14:00 GINGER HARDIN M.D. Nov 08, 2018 15:20
--- NOTE | 2018-11-08 16:01 | PN ---
Date/Time of Note Date/Time of Note DATE: 11/08/18 TIME: 16:00 Assessment/Plan VTE Prophylaxis Risk score (from Ns)>0 risk: 2 SCD applied (from Ns): No SCD contraindicated: other Pharmacological prophylaxis: NA/contraindicated Pharm contraindication: anticoag not tolerated Lines/Catheters [facility] Mid Line Central line still needed: Yes Urinary Cath still in place: No Assessment/Plan Hospital Course Patient complained of right groin pain however unable able to undergo hemodialysis through right femoral hemodialysis catheter, will obtain ultrasound to rule out hematoma, patient's condition plan of care discussed with patient and patient's father at the bedside, all questions answered Assessment/Plan -Sepsis with DIMITRI bacteremia with fevers, leukocytosis, and hypotension. patient is currently continued on oxacillin 2 g every 6 hours Continue antibiotics per ID. Dr. Arora is following in ID consultation. AMANDA is negative for vegetation. Dr. Barrera is following in cardiology consultation. -Hemodialysis dependent end-stage renal disease, continue dialysis per nephrology. Dr. Beltran is following in nephrology consultation. -Leukemia, patient is undergoing chemotherapy last chemo was on Wednesday10/11/18. -Anemia multifactorial chronic disease and recent chemo, status post blood transfusion, continue to monitor H&H, continue Epogen. -Mineral bone disease with renal osteodystrophy. No acute fractures, traumatic subluxations, osteomyelitis or diskitis per MRI of the lumbar spine. -Primary hyperparathyroidism, status post complete parathyroidectomy and partial left thyroid lobectomy 2 years ago. -Left femoral hemodialysis catheter present on admission. Further recommendations based on clinical course. Plan of care discussed with Dr. Turner. Result Diagram: 11/08/18 0610 11/08/18 0610 Results 24hrs Laboratory Tests Test 11/08/18 06:10 White Blood Count 5.7 Red Blood Count 3.19 L Hemoglobin 10.1 L Hematocrit 32.3 L Mean Corpuscular Volume 101.3 H Mean Corpuscular Hemoglobin 31.7 Mean Corpuscular Hemoglobin Concent 31.3 L Red Cell Distribution Width 17.2 H Platelet Count 207 Mean Platelet Volume 10.1 Immature Granulocytes % 0.400 Neutrophils % 72.0 Lymphocytes % 18.2 Monocytes % 6.9 Eosinophils % 1.8 Basophils % 0.7 Nucleated Red Blood Cells % 0.0 Immature Granulocytes # 0.020 Neutrophils # 4.1 Lymphocytes # 1.0 Monocytes # 0.4 Eosinophils # 0.1 Basophils # 0.0 Nucleated Red Blood Cells # 0.0 Sodium Level 140 Potassium Level 6.7 *H Chloride Level 100 Carbon Dioxide Level 28 Anion Gap 12 # Blood Urea Nitrogen 40 #H Creatinine 7.59 #H Est Glomerular Filtrat Rate mL/min 6 L Glucose Level 75 Calcium Level 7.8 L Exam/Review of Systems Exam Vitals Vital Signs Date Temp Pulse Resp B/P (MAP) Pulse Ox O2 O2 Flow FiO2 Time Delivery Rate 11/08/18 98.3 102 18 126/92 98 Room Air 15:16 (103) Intake and Output 11/07/18 11/07/18 11/08/18 1515:00 23:00 07:00 IntakeIntake Total 300 ml 700 ml 420 ml OutputOutput Total 3700 ml BalanceBalance 300 ml -3000 ml 420 ml Exam Constitutional: alert Respiratory: clear to auscultation Cardiovascular: regular rate and rhythm Gastrointestinal: soft, non-tender Musculoskeletal: nl extremities to inspection Extremities: normal pulses 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: nl mental status Skin: nl turgor Additional Comments Right femoral hemodialysis catheter, left upper extremity AV fistula nonfunctional Results Results 24hrs Laboratory Tests Test 11/08/18 06:10 White Blood Count 5.7 Red Blood Count 3.19 L Hemoglobin 10.1 L Hematocrit 32.3 L Mean Corpuscular Volume 101.3 H Mean Corpuscular Hemoglobin 31.7 Mean Corpuscular Hemoglobin Concent 31.3 L Red Cell Distribution Width 17.2 H Platelet Count 207 Mean Platelet Volume 10.1 Immature Granulocytes % 0.400 Neutrophils % 72.0 Lymphocytes % 18.2 Monocytes % 6.9 Eosinophils % 1.8 Basophils % 0.7 Nucleated Red Blood Cells % 0.0 Immature Granulocytes # 0.020 Neutrophils # 4.1 Lymphocytes # 1.0 Monocytes # 0.4 Eosinophils # 0.1 Basophils # 0.0 Nucleated Red Blood Cells # 0.0 Sodium Level 140 Potassium Level 6.7 *H Chloride Level 100 Carbon Dioxide Level 28 Anion Gap 12 # Blood Urea Nitrogen 40 #H Creatinine 7.59 #H Est Glomerular Filtrat Rate mL/min 6 L Glucose Level 75 Calcium Level 7.8 L Medications Medication Current Medications Albumin Human 100 ml @ 100 mls/hr WITH DIALYSIS PRN IV SBP <90 DURING DIALYSIS Last administered on 10/24/18 21:00; Admin Dose 100 MLS/HR; Start 10/24/18 at 18:00 Sodium Chloride 250 ml @ 250 mls/hr Q1H PRN IV tachycardia Last administered on 10/25/18 02:24; Admin Dose 250 MLS/HR; Start 10/25/18 at 01:00 Diphenhydramine HCl (Benadryl) 25 mg Q6H PRN IV ALLERGIC REACTION Last administered on 11/08/18 12:08; Admin Dose 25 MG; Start 10/25/18 at 01:00 Acetaminophen (Tylenol Tab) 650 mg Q4 PRN PO FEVER Last administered on 10/29/18 18:43; Admin Dose 650 MG; Start 10/25/18 at 01:00 Sevelamer Carbonate (Renvela) 800 mg WITH MEALS PO Last administered on 11/08/18 12:08; Admin Dose 800 MG; Start 10/25/18 at 07:35 Midodrine (Proamatine) 5 mg TID@09,13,17 PO Last administered on 11/08/18 08:26; Admin Dose 5 MG; Start 10/26/18 at 09:00 Lidocaine (Xylocaine 1% (Mdv) 20 ml) 1 ml WITH DIALYSIS PRN INJ PRIOR TO CANULLATION/HD; Start 10/26/18 at 12:30 Ondansetron HCl (Zofran Inj) 4 mg Q4H PRN IV NAUSEA AND/OR VOMITING Last administered on 11/07/18 09:33; Admin Dose 4 MG; Start 10/26/18 at 15:30 Morphine Sulfate (morphine) 2 mg Q4H PRN IV SEVERE PAIN LEVEL 7-10 Last administered on 11/08/18 15:16; Admin Dose 2 MG; Start 10/26/18 at 15:30 Epoetin Maxwell-epbx (Retacrit (Esrd)) 10,000 unit MoWeFr@1700 SC Last adminis tered on 11/07/18 17:46; Admin Dose 10,000 UNIT; Start 10/28/18 at 17:00 Oxacillin Sodium 2 gm/Sodium Chloride 50 ml @ 100 mls/hr Q6 IVPB Last administered on 11/08/18 04:39; Admin Dose 100 MLS/HR; Start 10/30/18 at 18:00 Mupirocin (Bactroban) 1 applic BID TOP Last administered on 11/08/18at 08:27; Admin Dose 1 APPLIC; Start 11/02/18 at 13:30 Heparin Sodium (Porcine) (Heparin (1000 Units/ml)) 6,100 unit AFTER DIALYSIS PRN CATHETER DIALYSIS Last administered on 11/08/18at 14:54; Admin Dose 6,100 UNIT; Start 11/07/18 at 14:00 ERICK ROBERTSON Nov 08, 2018 16:01
--- NOTE | 2018-11-08 16:55 | CONS ---
Assessment/Plan Assessment/Plan Assessment/Plan (Daily) 1. Septic shock s/p Levophed 2. ESRD on HD MWF schedule , left femoral permacath for HD access 3. Bacteremia with Blood cx growing staph aureus -s/p removal of left permacath on 11/04/18- pt remained line free for 3 days then reinsertion of Right groin permacath on 11/07/18 4. H/o Leukemia currently on chemotherapy, last chem on 10/21/18 5. H/o Primary hyperparathyroidism, status post complete parathyroidectomy and partial left thyroid lobectomy 2 years ago. 6. H/o Anemia of ESRD 7, Difficult vascular Access Plan: s/p HD yesterday- 3.2 L removed, Today morning K is 6.7- emergent HD done 2.5 L removed, no SOB- will follow up on K in AM labs staph aureus bacteremia - IV abx oxacillin 2 gram IV Q 6 hr - ID following Continue other home medications, Midodrine 5 mg PO TID for BP support will keep pt on MWF schedule - HD ordered for Wednesday will follow up Consultation Date/Type/Reason Admit Date/Time Oct 25, 2018 at 04:13 Initial Consult Date Type of Consult NEPHROLOGY Requesting Provider: LUANNE WALTER MD Date/Time of Note DATE: 11/08/18 TIME: 16:55 24 HR Interval Summary Free Text/Dictation s/p HD yesterday Today K is 6.7- emergent HD done 2.5 L removed, no SOB Exam/Review of Systems Exam Vitals Vital Signs Date Temp Pulse Resp B/P (MAP) Pulse Ox O2 O2 Flow FiO2 Time Delivery Rate 11/08/18 98.3 102 18 126/92 98 Room Air 15:16 (103) Intake and Output 11/07/18 11/07/18 11/08/18 1515:00 23:00 07:00 IntakeIntake Total 300 ml 700 ml 420 ml OutputOutput Total 3700 ml BalanceBalance 300 ml -3000 ml 420 ml Exam Constitutional: alert, awake, no acute distress Respiratory: clear to auscultation Cardiovascular: regular rate and rhythm Gastrointestinal: soft, non-tender Musculoskeletal: nl extremities to inspection Extremities: normal pulses 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: nl mental status Additional Comments Left femoral hemodialysis catheter, left upper extremity AV fistula nonfunctional Results Result Diagram: 11/08/18 0610 11/08/18 0610 Results 24hrs Laboratory Tests Test 11/08/18 06:10 White Blood Count 5.7 Red Blood Count 3.19 L Hemoglobin 10.1 L Hematocrit 32.3 L Mean Corpuscular Volume 101.3 H Mean Corpuscular Hemoglobin 31.7 Mean Corpuscular Hemoglobin Concent 31.3 L Red Cell Distribution Width 17.2 H Platelet Count 207 Mean Platelet Volume 10.1 Immature Granulocytes % 0.400 Neutrophils % 72.0 Lymphocytes % 18.2 Monocytes % 6.9 Eosinophils % 1.8 Basophils % 0.7 Nucleated Red Blood Cells % 0.0 Immature Granulocytes # 0.020 Neutrophils # 4.1 Lymphocytes # 1.0 Monocytes # 0.4 Eosinophils # 0.1 Basophils # 0.0 Nucleated Red Blood Cells # 0.0 Sodium Level 140 Potassium Level 6.7 *H Chloride Level 100 Carbon Dioxide Level 28 Anion Gap 12 # Blood Urea Nitrogen 40 #H Creatinine 7.59 #H Est Glomerular Filtrat Rate mL/min 6 L Glucose Level 75 Calcium Level 7.8 L Medications Medication Current Medications Albumin Human 100 ml @ 100 mls/hr WITH DIALYSIS PRN IV SBP <90 DURING DIALYSIS Last administered on 10/24/18 21:00; Admin Dose 100 MLS/HR; Start 10/24/18 at 18:00 Sodium Chloride 250 ml @ 250 mls/hr Q1H PRN IV tachycardia Last administered on 10/25/18 02:24; Admin Dose 250 MLS/HR; Start 10/25/18 at 01:00 Diphenhydramine HCl (Benadryl) 25 mg Q6H PRN IV ALLERGIC REACTION Last administered on 11/08/18 12:08; Admin Dose 25 MG; Start 10/25/18 at 01:00 Acetaminophen (Tylenol Tab) 650 mg Q4 PRN PO FEVER Last administered on 10/29/18 18:43; Admin Dose 650 MG; Start 10/25/18 at 01:00 Sevelamer Carbonate (Renvela) 800 mg WITH MEALS PO Last administered on 11/08/18 12:08; Admin Dose 800 MG; Start 10/25/18 at 07:35 Midodrine (Proamatine) 5 mg TID@09,13,17 PO Last administered on 11/08/18 08:26; Admin Dose 5 MG; Start 10/26/18 at 09:00 Lidocaine (Xylocaine 1% (Mdv) 20 ml) 1 ml WITH DIALYSIS PRN INJ PRIOR TO CANULLATION/HD; Start 10/26/18 at 12:30 Ondansetron HCl (Zofran Inj) 4 mg Q4H PRN IV NAUSEA AND/OR VOMITING Last administered on 11/07/18 09:33; Admin Dose 4 MG; Start 10/26/18 at 15:30 Morphine Sulfate (morphine) 2 mg Q4H PRN IV SEVERE PAIN LEVEL 7-10 Last administered on 11/08/18 15:16; Admin Dose 2 MG; Start 10/26/18 at 15:30 Epoetin Maxwell-epbx (Retacrit (Esrd)) 10,000 unit MoWeFr@1700 SC Last administered on 11/07/18 17:46; Admin Dose 10,000 UNIT; Start 10/28/18 at 17:00 Oxacillin Sodium 2 gm/Sodium Chloride 50 ml @ 100 mls/hr Q6 IVPB Last admin istered on 11/08/18 04:39; Admin Dose 100 MLS/HR; Start 10/30/18 at 18:00 Mupirocin (Bactroban) 1 applic BID TOP Last administered on 11/08/18 08:27; Admin Dose 1 APPLIC; Start 11/02/18 at 13:30 Heparin Sodium (Porcine) (Heparin (1000 Units/ml)) 6,100 unit AFTER DIALYSIS PRN CATHETER DIALYSIS Last administered on 11/08/18 14:54; Admin Dose 6,100 UNIT; Start 11/07/18 at 14:00 HENRIQUE GRANADO MD Nov 08, 2018 16:55
[2018-11-08] MEDS: ACETAMINOPHEN 325 MG TAB PO PRN (18:01)
[2018-11-08] MEDS ORDERED: morphine 2 MG INJ IV STA (18:18)
[2018-11-08] MEDS: morphine 4 MG/ML VIAL IV PRN (22:52)
[2018-11-09] VITALS (19 sets, daily range): BP systolic 91–131; BP diastolic 57–87; PULSE 70–118; RESP 18–20
[2018-11-09] MEDS: OXACILLIN 2 GM in SOD CHLORIDE 0.9% 50 ML IVPB SCH ×4 (05:16→22:53)
[2018-11-09] MEDS: morphine 4 MG/ML VIAL IV PRN ×5 (05:19→22:54)
[2018-11-09] MEDS: DIPHENHYDRAMINE 50 MG INJ IV PRN ×5 (06:03→23:37)
[2018-11-09] MEDS: SEVELAMER CARBONATE 800 MG TABLET PO SCH ×3 (08:42→18:55)
[2018-11-09] MEDS: MUPIROCIN 2% 22 GM OINT TOP SCH ×2 (08:42→19:41)
[2018-11-09] MEDS: MIDODRINE 5 MG TAB PO SCH ×3 (08:42→18:56)
[2018-11-09] MEDS: HEPARIN 1000 UNITS/ML 10 ML INJ CATHETER PRN (11:48)
--- NOTE | 2018-11-09 12:41 | PN ---
Date/Time of Note Date/Time of Note DATE: 11/09/18 TIME: 12:39 Assessment/Plan VTE Prophylaxis Risk score (from Ns)>0 risk: 5 SCD applied (from [facility] No SCD contraindicated: patient refusal Pharmacological prophylaxis: NA/contraindicated Pharm contraindication: anticoag not tolerated Lines/Catheters IV C[facility]ter Type [facility]from [facility] Mid Line Central line still needed: Yes Urinary Cath still in place: No Reason Cath still needed: urinary retention Assessment/Plan Hospital Course Patient with hyperkalemia, status post hemodialysis yesterday, complains of right groin pain, fluid collections surrounding the right groin dialysis catheter noted on R groin ultrasound. Discussed with Dr. Beltran, plan for right groin hemodialysis catheter removing tomorrow and placing new catheter on the left. Assessment/Plan -Sepsis with DIMITRI bacteremia with fevers, leukocytosis, and hypotension. patient is currently continued on oxacillin 2 g every 6 hours Continue antibiotics per ID. Dr. Arora is following in ID consultation. AMANDA is negative for vegetation. Dr. Barrera is following in cardiology consultation. -Hemodialysis dependent end-stage renal disease, continue dialysis per nephrology. Dr. Beltran is following in nephrology consultation. -Leukemia, patient is undergoing chemotherapy last chemo was on Wednesday10/11/18. -Anemia multifactorial chronic disease and recent chemo, status post blood transfusion, continue to monitor H&H, continue Epogen. -Mineral bone disease with renal osteodystrophy. No acute fractures, traumatic subluxations, osteomyelitis or diskitis per MRI of the lumbar spine. -Primary hyperparathyroidism, status post complete parathyroidectomy and partial left thyroid lobectomy 2 years ago. -Left femoral hemodialysis catheter present on admission. Further recommendations based on clinical course. Plan of care discussed with Dr. Turner. Result Diagram: 11/09/18 0654 11/09/18 0654 Results 24hrs Laboratory Tests Test 11/09/18 06:54 White Blood Count 5.4 Red Blood Count 3.25 L Hemoglobin 10.3 L Hematocrit 33.0 L Mean Corpuscular Volume 101.5 H Mean Corpuscular Hemoglobin 31.7 Mean Corpuscular Hemoglobin Concent 31.2 L Red Cell Distribution Width 16.9 H Platelet Count 190 Mean Platelet Volume 10.8 H Immature Granulocytes % 0.200 Neutrophils % 59.8 Lymphocytes % 27.2 Monocytes % 8.9 Eosinophils % 2.8 Basophils % 1.1 Nucleated Red Blood Cells % 0.0 Immature Granulocytes # 0.010 Neutrophils # 3.2 Lymphocytes # 1.5 Monocytes # 0.5 Eosinophils # 0.2 Basophils # 0.1 Nucleated Red Blood Cells # 0.0 Sodium Level 141 Potassium Level 6.3 *H Chloride Level 105 Carbon Dioxide Level 24 Anion Gap 12 Blood Urea Nitrogen 32 H Creatinine 5.93 H Est Glomerular Filtrat Rate mL/min 8 L Glucose Level 68 L Calcium Level 8.4 Exam/Review of Systems Exam Vitals Vital Signs Date Temp Pulse Resp B/P (MAP) Pulse Ox O2 O2 Flow FiO2 Time Delivery Rate 11/09/18 110 12:00 11/09/18 20 110/78 96 Room Air 09:00 (89) 11/09/18 98.1 07:11 Intake and Output 11/08/18 11/08/18 11/09/18 1515:00 23:00 07:00 IntakeIntake Total 680 ml 360 ml 300 ml OutputOutput Total 3000 ml BalanceBalance -2320 ml 360 ml 300 ml Exam Constitutional: alert Respiratory: clear to auscultation Cardiovascular: regular rate and rhythm Gastrointestinal: soft, non-tender Musculoskeletal: nl extremities to inspection Extremities: normal pulses 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: nl mental status Skin: nl turgor Additional Comments Right femoral hemodialysis catheter, left upper extremity AV fistula nonfunctional Results Results 24hrs Laboratory Tests Test 11/09/18 06:54 White Blood Count 5.4 Red Blood Count 3.25 L Hemoglobin 10.3 L Hematocrit 33.0 L Mean Corpuscular Volume 101.5 H Mean Corpuscular Hemoglobin 31.7 Mean Corpuscular Hemoglobin Concent 31.2 L Red Cell Distribution Width 16.9 H Platelet Count 190 Mean Platelet Volume 10.8 H Immature Granulocytes % 0.200 Neutrophils % 59.8 Lymphocytes % 27.2 Monocytes % 8.9 Eosinophils % 2.8 Basophils % 1.1 Nucleated Red Blood Cells % 0.0 Immature Granulocytes # 0.010 Neutrophils # 3.2 Lymphocytes # 1.5 Monocytes # 0.5 Eosinophils # 0.2 Basophils # 0.1 Nucleated Red Blood Cells # 0.0 Sodium Level 141 Potassium Level 6.3 *H Chloride Level 105 Carbon Dioxide Level 24 Anion Gap 12 Blood Urea Nitrogen 32 H Creatinine 5.93 H Est Glomerular Filtrat Rate mL/min 8 L Glucose Level 68 L Calcium Level 8.4 Medications Medication Current Medications Albumin Human 100 ml @ 100 mls/hr WITH DIALYSIS PRN IV SBP <90 DURING DIALYSIS Last administered on 10/24/18 21:00; Admin Dose 100 MLS/HR; Start 10/24/18 at 18:00 Sodium Chloride 250 ml @ 250 mls/hr Q1H PRN IV tachycardia Last administered on 10/25/18 02:24; Admin Dose 250 MLS/HR; Start 10/25/18 at 01:00 Acetaminophen (Tylenol Tab) 650 mg Q4 PRN PO FEVER Last administered on 11/08/18 18:01; Admin Dose 650 MG; Start 10/25/18 at 01:00 Sevelamer Carbonate (Renvela) 800 mg WITH MEALS PO Last administered on 11/09/18 11:25; Admin Dose 800 MG; Start 10/25/18 at 07:35 Midodrine (Proamatine) 5 mg TID@09,13,17 PO Last administered on 11/09/18 08:42; Admin Dose 5 MG; Start 10/26/18 at 09:00 Lidocaine (Xylocaine 1% (Mdv) 20 ml) 1 ml WITH DIALYSIS PRN INJ PRIOR TO CANULLATION/HD; Start 10/26/18 at 12:30 Ondansetron HCl (Zofran Inj) 4 mg Q4H PRN IV NAUSEA AND/OR VOMITING Last administered on 11/07/18 09:33; Admin Dose 4 MG; Start 10/26/18 at 15:30 Epoetin Maxwell-epbx (Retacrit (Esrd)) 10,000 unit MoWeFr@1700 SC Last administered on 11/07/18 17:46; Admin Dose 10,000 UNIT; Start 10/28/18 at 17:00 Oxacillin Sodium 2 gm/Sodium Chloride 50 ml @ 100 mls/hr Q6 IVPB Last ad ministered on 11/09/18 11:25; Admin Dose 100 MLS/HR; Start 10/30/18 at 18:00 Mupirocin (Bactroban) 1 applic BID TOP Last administered on 11/09/18 08:42; Admin Dose 1 APPLIC; Start 11/02/18 at 13:30 Heparin Sodium (Porcine) (Heparin (1000 Units/ml)) 6,100 unit AFTER DIALYSIS PRN CATHETER DIALYSIS Last administered on 11/09/18 11:48; Admin Dose 6,100 UNIT; Start 11/07/18 at 14:00 Morphine Sulfate (morphine) 3 mg Q4H PRN IV SEVERE PAIN LEVEL 7-10 Last administered on 11/09/18 10:19; Admin Dose 3 MG; Start 11/08/18 at 19:30 Diphenhydramine HCl (Benadryl) 25 mg Q4H PRN IV ALLERGIC REACTION Last administered on 11/09/18 11:25; Admin Dose 25 MG; Start 11/09/18 at 09:00 ERICK ROBERTSON Nov 09, 2018 12:41
--- NOTE | 2018-11-09 13:17 | CONS ---
Assessment/Plan Assessment/Plan Assessment/Plan (Daily) 1. Septic shock s/p Levophed 2. ESRD on HD MWF schedule , left femoral permacath for HD access 3. Bacteremia with Blood cx growing staph aureus -s/p removal of left permacath on 11/04/18- pt remained line free for 3 days then reinsertion of Right groin permacath on 11/07/18 4. H/o Leukemia currently on chemotherapy, last chem on 10/21/18 5. H/o Primary hyperparathyroidism, status post complete parathyroidectomy and partial left thyroid lobectomy 2 years ago. 6. H/o Anemia of ESRD 7, Difficult vascular Access Plan: s/p HD today 2.6 L removed, post HD K is normal, INR normal - pt c/o right groin pain at catheter site- US showed fluid collection c/w hematoma- d/w IR today - plan is to removed Right Tunneled Hemodialysis catheter tomorrow and placed Left femoral Tunneled HD catheter tomorrow staph aureus bacteremia - IV abx oxacillin 2 gram IV Q 6 hr - ID following Continue other home medications, Midodrine 5 mg PO TID for BP support will keep pt on MWF schedule - next HD will be on Wednesday will follow up Consultation Date/Type/Reason Admit Date/Time Oct 25, 2018 at 04:13 Initial Consult Date Type of Consult NEPHROLOGY Requesting Provider: LUANNE WALTER MD Date/Time of Note DATE: 11/09/18 TIME: 13:17 Exam/Review of Systems Exam Vitals Vital Signs Date Temp Pulse Resp B/P (MAP) Pulse Ox O2 O2 Flow FiO2 Time Delivery Rate 11/09/18 110 12:00 11/09/18 20 110/78 96 Room Air 09:00 (89) 11/09/18 98.1 07:11 Intake and Output 11/08/18 11/08/18 11/09/18 1515:00 23:00 07:00 IntakeIntake Total 680 ml 360 ml 300 ml OutputOutput Total 3000 ml BalanceBalance -2320 ml 360 ml 300 ml Exam Constitutional: alert, awake, no acute distress Respiratory: clear to auscultation Cardiovascular: regular rate and rhythm Gastrointestinal: soft, non-tender Musculoskeletal: nl extremities to inspection Extremities: normal pulses 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: nl mental status Additional Comments Right femoral hemodialysis catheter, left upper extremity AV fistula nonfunct ional Results Result Diagram: 11/09/18 0654 11/09/18 0654 Results 24hrs Laboratory Tests Test 11/09/18 06:54 White Blood Count 5.4 Red Blood Count 3.25 L Hemoglobin 10.3 L Hematocrit 33.0 L Mean Corpuscular Volume 101.5 H Mean Corpuscular Hemoglobin 31.7 Mean Corpuscular Hemoglobin Concent 31.2 L Red Cell Distribution Width 16.9 H Platelet Count 190 Mean Platelet Volume 10.8 H Immature Granulocytes % 0.200 Neutrophils % 59.8 Lymphocytes % 27.2 Monocytes % 8.9 Eosinophils % 2.8 Basophils % 1.1 Nucleated Red Blood Cells % 0.0 Immature Granulocytes # 0.010 Neutrophils # 3.2 Lymphocytes # 1.5 Monocytes # 0.5 Eosinophils # 0.2 Basophils # 0.1 Nucleated Red Blood Cells # 0.0 Sodium Level 141 Potassium Level 6.3 *H Chloride Level 105 Carbon Dioxide Level 24 Anion Gap 12 Blood Urea Nitrogen 32 H Creatinine 5.93 H Est Glomerular Filtrat Rate mL/min 8 L Glucose Level 68 L Calcium Level 8.4 Medications Medication Current Medications Albumin Human 100 ml @ 100 mls/hr WITH DIALYSIS PRN IV SBP <90 DURING DIALYSIS Last administered on 10/24/18at 21:00; Admin Dose 100 MLS/HR; Start 10/24/18 at 18:00 Sodium Chloride 250 ml @ 250 mls/hr Q1H PRN IV tachycardia Last administered on 10/25/18at 02:24; Admin Dose 250 MLS/HR; Start 10/25/18 at 01:00 Acetaminophen (Tylenol Tab) 650 mg Q4 PRN PO FEVER Last administered on 11/08/18at 18:01; Admin Dose 650 MG; Start 10/25/18 at 01:00 Sevelamer Carbonate (Renvela) 800 mg WITH MEALS PO Last administered on 11/09/18at 11:25; Admin Dose 800 MG; Start 10/25/18 at 07:35 Midodrine (Proamatine) 5 mg TID@09,13,17 PO Last administered on 11/09/18at 08:42; Admin Dose 5 MG; Start 10/26/18 at 09:00 Lidocaine (Xylocaine 1% (Mdv) 20 ml) 1 ml WITH DIALYSIS PRN INJ PRIOR TO CANULLATION/HD; Start 10/26/18 at 12:30 Ondansetron HCl (Zofran Inj) 4 mg Q4H PRN IV NAUSEA AND/OR VOMITING Last administered on 11/07/18 09:33; Admin Dose 4 MG; Start 10/26/18 at 15:30 Epoetin Maxwell-epbx (Retacrit (Esrd)) 10,000 unit MoWeFr@1700 SC Last administered on 11/07/18 17:46; Admin Dose 10,000 UNIT; Start 10/28/18 at 17:00 Oxacillin Sodium 2 gm/Sodium Chloride 50 ml @ 100 mls/hr Q6 IVPB Last administered on 11/09/18 11:25; Admin Dose 100 MLS/HR; Start 10/30/18 at 18:00 Mupirocin (Bactroban) 1 applic BID TOP Last administered on 11/09/18 08:42; Admin Dose 1 APPLIC; Start 11/02/18 at 13:30 Heparin Sodium (Porcine) (Heparin (1000 Units/ml)) 6,100 unit AFTER DIALYSIS PRN CATHETER DIALYSIS Last administered on 11/09/18 11:48; Admin Dose 6,100 UNIT; Start 11/07/18 at 14:00 Morphine Sulfate (morphine) 3 mg Q4H PRN IV SEVERE PAIN LEVEL 7-10 Last administered on 11/09/18 10:19; Admin Dose 3 MG; Start 11/08/18 at 19:30 Diphenhydramine HCl (Benadryl) 25 mg Q4H PRN IV ALLERGIC REACTION Last administered on 11/09/18 11:25; Admin Dose 25 MG; Start 11/09/18 at 09:00 HENRIQUE GRANADO MD Nov 09, 2018 13:17
--- NOTE | 2018-11-09 14:02 | CONS ---
Assessment/Plan Assessment/Plan Hospital Course (Demo Recall) IMPRESSION: 1. Bacteremia, assess for endocarditis, intracardiac source of infection. s/p AMANDA 11/04 with no definite signs intracardiac infection 2. Abnormal electrocardiogram with lateral T-wave inversion. 3. Hypertension, mainly diastolic labile, currently improved. 4. Leukemia. 5. Anemia. 6. Initial hypotension. Initially with midodrine- somewhat labile but not requiring midodrine 7. Tachycardia-S tach at this perry to 120's, of onset today 8. ESRD on HD s/p new R femoral HD catheter Recc: -Tele -continue abx's and f/u cx data -HD for volume removal -IVP PRN BB -check temperature Consultation Date/Type/Reason Admit Date/Time Oct 25, 2018 at 04:13 Initial Consult Date 10/25/18 Type of Consult Cardiology Reason for Consultation Bacteremia Requesting Provider: LUANNE WALTER MD Date/Time of Note DATE: 11/09/18 TIME: 13:59 Exam/Review of Systems Vital Signs Vitals Vital Signs Date Temp Pulse Resp B/P (MAP) Pulse Ox O2 O2 Flow FiO2 Time Delivery Rate 11/09/18 106 104/57 13:41 (73) 11/09/18 20 96 Room Air 09:00 11/09/18 98.1 07:11 Intake and Output 11/08/18 11/08/18 11/09/18 1515:00 23:00 07:00 IntakeIntake Total 680 ml 360 ml 300 ml OutputOutput Total 3000 ml BalanceBalance -2320 ml 360 ml 300 ml Exam Exam Review of Systems: CONSTITUTIONAL: No fevers, chills. PULMONARY: No sob CARDIOVASCULAR: No chest pain/palpitations GASTROINTESTINAL: No nausea/vomiting. GENITOURINARY: No hematuria/dysuria. MUSCULOSKELETAL: No myagias/arthalgias. PSYCHIATRIC: The patient denies depression. NEUROLOGIC: No weakness Constitutional: alert Psych: no complaints Head: normocephalic ENMT: mucosa pink and moist Neck: supple, jvd Respiratory: clear to auscultation Cardiovascular: other (tachycardia, regulkar rhythm) Gastrointestinal: soft, non-tender Genitourinary - Female: other (R femoral HD catheter) Musculoskeletal: muscle tone Extremities: edema (none) 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: other (No focakl deficits) Labs Result Diagram: 11/09/18 0654 11/09/18 0654 Results 24hrs Laboratory Tests Test 11/09/18 06:54 White Blood Count 5.4 Red Blood Count 3.25 L Hemoglobin 10.3 L Hematocrit 33.0 L Mean Corpuscular Volume 101.5 H Mean Corpuscular Hemoglobin 31.7 Mean Corpuscular Hemoglobin Concent 31.2 L Red Cell Distribution Width 16.9 H Platelet Count 190 Mean Platelet Volume 10.8 H Immature Granulocytes % 0.200 Neutrophils % 59.8 Lymphocytes % 27.2 Monocytes % 8.9 Eosinophils % 2.8 Basophils % 1.1 Nucleated Red Blood Cells % 0.0 Immature Granulocytes # 0.010 Neutrophils # 3.2 Lymphocytes # 1.5 Monocytes # 0.5 Eosinophils # 0.2 Basophils # 0.1 Nucleated Red Blood Cells # 0.0 Sodium Level 141 Potassium Level 6.3 *H Chloride Level 105 Carbon Dioxide Level 24 Anion Gap 12 Blood Urea Nitrogen 32 H Creatinine 5.93 H Est Glomerular Filtrat Rate mL/min 8 L Glucose Level 68 L Calcium Level 8.4 Medications Medications Current Medications Albumin Human 100 ml @ 100 mls/hr WITH DIALYSIS PRN IV SBP <90 DURING DIALYSIS Last administered on 10/24/18at 21:00; Admin Dose 100 MLS/HR; Start 10/24/18 at 18:00 Sodium Chloride 250 ml @ 250 mls/hr Q1H PRN IV tachycardia Last administered on 10/25/18at 02:24; Admin Dose 250 MLS/HR; Start 10/25/18 at 01:00 Acetaminophen (Tylenol Tab) 650 mg Q4 PRN PO FEVER Last administered on 11/08/18at 18:01; Admin Dose 650 MG; Start 10/25/18 at 01:00 Sevelamer Carbonate (Renvela) 800 mg WITH MEALS PO Last administered on 11/09/18at 11:25; Admin Dose 800 MG; Start 10/25/18 at 07:35 Midodrine (Proamatine) 5 mg TID@,13,17 PO Last administered on 11/09/18at 13:40; Admin Dose 5 MG; Start 10/26/18 at 09:00 Lidocaine (Xylocaine 1% (Mdv) 20 ml) 1 ml WITH DIALYSIS PRN INJ PRIOR TO CANULLATION/HD; Start 10/26/18 at 12:30 Ondansetron HCl (Zofran Inj) 4 mg Q4H PRN IV NAUSEA AND/OR VOMITING Last administered on 11/07/18 09:33; Admin Dose 4 MG; Start 10/26/18 at 15:30 Epoetin Maxwell-epbx (Retacrit (Esrd)) 10,000 unit MoWeFr@1700 SC Last administered on 11/07/18 17:46; Admin Dose 10,000 UNIT; Start 10/28/18 at 17:00 Oxacillin Sodium 2 gm/Sodium Chloride 50 ml @ 100 mls/hr Q6 IVPB Last administered on 11/09/18 11:25; Admin Dose 100 MLS/HR; Start 10/30/18 at 18:00 Mupirocin (Bactroban) 1 applic BID TOP Last administered on 11/09/18 08:42; Admin Dose 1 APPLIC; Start 11/02/18 at 13:30 Heparin Sodium (Porcine) (Heparin (1000 Units/ml)) 6,100 unit AFTER DIALYSIS PRN CATHETER DIALYSIS Last administered on 11/09/18 11:48; Admin Dose 6,100 UNIT; Start 11/07/18 at 14:00 Morphine Sulfate (morphine) 3 mg Q4H PRN IV SEVERE PAIN LEVEL 7-10 Last administered on 11/09/18 10:19; Admin Dose 3 MG; Start 11/08/18 at 19:30 Diphenhydramine HCl (Benadryl) 25 mg Q4H PRN IV ALLERGIC REACTION Last administered on 11/09/18 11:25; Admin Dose 25 MG; Start 11/09/18 at 09:00 HENRIQUE GARCIA Nov 09, 2018 14:02
[2018-11-09] MEDS ORDERED: METOPROLOL 5 MG INJ IV PRN (14:30)
--- NOTE | 2018-11-09 16:02 | CONS ---
Assessment/Plan Assessment/Plan Hospital Course (Demo Recall) # sepsis, heme/onc - s/p sepsis due to bacteremia, recurrent. Resolved - s/p persistent and recurrent bacteremia on 10/24, 10/25, and 10/26 due to MSSA; repeat blood cultures on 10/28 & 11/02 were negative; transthoracic echo did not mention vegetation; AMANDA showed no vegetation - the source of her bacteremia was her HD catheter. No other focus of infection was found: WBC tagged scan on 11/05/2018 showed several non-specific foci of increased activity along R anterior chest wall;however, chest CT on 11/07/2018 showed no fluid collection identified within the chest wall. 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 Per Pt, she had pruritus, "bumps" and green discharge from the catheter site. Its culture on 10/31/2018 grew S. aureus. It was removed on 11/04/2018 - s/p placement of a new HD catheter on R groin on 11/07/2018 - h/o removal of permacath on R chest wall on 07/14/2018 - h/o R femoral HD justin catheter placement 07/14/2018, replaced by HD permacath 07/19/2018 - h/o pain/increased sensitivity of R groin after replacement of the Perez with permacath. soft tissue CHRISTEL on 07/20/2018 showed no abnormality at the site of the palpable lesion adjacent to R inguinal region HD catheter - h/o swelling on the scalp and chest wall, possibly due to collateral veins as a result of thrombosis of AVF - h/o removal and placement of a new Perez catheter in 05/2018. The culture of the tip of the removed catheter, blood cultures and swab of the catheter site were negative. Pt completed an empiric course of renally dosed pip/tazo (06/13/2018-06/18/2018) - h/o placement of a permacath on R chest wall on 06/23/2018 - h/o [place] [facility] [place] - thrombosed L brachiocephalic AV fistula, 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 Last used for HD in 04/2018. Was scheduled to get a new graft [place] [facility] as [place] - h/o 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 Pt took renally dosed valACV (07/15/2018-07/17/2018) - adverse reaction to vancomycin (pruritus) - adverse reaction to linezolid (thrombocytopenia). Linezolid was discontinued (06/12/2018-06/17/2018) - ?adverse reaction to cefazolin (severe abd pain/cramping, although pt tolerated a 14 day course of cefazolin in 06/2018) - painful nodule on L thumb; X-ray shows possible subcutaneous mass adjacent to the radial aspect of the first metacarpal. Recommendations: - event noted; catheter replacement 11/10/2018 - continue renally dosed oxacillin 2gm IV q6 hours (10/30/2018-) for 2 weeks after removal of her HD catheter, i.e. 11/04/18-11/18/18. management d/w Pt Consultation Date/Type/Reason Admit Date/Time Oct 25, 2018 at 04:13 Initial Consult Date 10/25/18 Type of Consult ID Requesting Provider: LUANNE WALTER MD Date/Time of Note DATE: 11/09/18 TIME: 15:59 24 HR Interval Summary Constitutional: other (not able to walk due to pain in R groin) Detailed Summary Eyes: no complaints ENT: no complaints Respiratory: no complaints Cardiovascular: no complaints Gastrointestinal: no complaints Genitourinary: other (pain and swelling in R groin) Musculoskeletal: restricted range of motion (due to pain in R groiin) Skin: pruritis (generalized); No rash Neurologic: no complaints Exam/Review of Systems Exam Vitals Vital Signs Date Temp Pulse Resp B/P (MAP) Pulse Ox O2 O2 Flow FiO2 Time Delivery Rate 11/09/18 98.0 116 20 103/67 96 15:35 (79) 11/09/18 Room Air 09:00 Intake and Output 11/08/18 11/08/18 11/09/18 1414:59 22:59 06:59 IntakeIntake Total 680 ml 360 ml 300 ml OutputOutput Total 3000 ml BalanceBalance -2320 ml 360 ml 300 ml Constitutional: frail Psych: no complaints, nl mood/affect Head: normocephalic, other (alopecia) Eyes: nl conjunctiva, nl lids ENMT: nl external ears & nose, nl nasal mucosa & septum Neck: supple Respiratory: normal air movement Cardiovascular: No edema Gastrointestinal: soft; No distended, No tender Genitourinary - Female: other (R groin, mildly swollen, TTP and warm) Extremities: No edema 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: nl mental status, nl speech Skin: nl turgor, other (folliculitis on the R lower back, L jaw, L groin, no rash); No rash or lesions Results Result Diagram: 11/09/18 0654 11/09/18 0654 Results 24hrs Laboratory Tests Test 11/09/18 06:54 White Blood Count 5.4 Red Blood Count 3.25 L Hemoglobin 10.3 L Hematocrit 33.0 L Mean Corpuscular Volume 101.5 H Mean Corpuscular Hemoglobin 31.7 Mean Corpuscular Hemoglobin Concent 31.2 L Red Cell Distribution Width 16.9 H Platelet Count 190 Mean Platelet Volume 10.8 H Immature Granulocytes % 0.200 Neutrophils % 59.8 Lymphocytes % 27.2 Monocytes % 8.9 Eosinophils % 2.8 Basophils % 1.1 Nucleated Red Blood Cells % 0.0 Immature Granulocytes # 0.010 Neutrophils # 3.2 Lymphocytes # 1.5 Monocytes # 0.5 Eosinophils # 0.2 Basophils # 0.1 Nucleated Red Blood Cells # 0.0 Sodium Level 141 Potassium Level 6.3 *H Chloride Level 105 Carbon Dioxide Level 24 Anion Gap 12 Blood Urea Nitrogen 32 H Creatinine 5.93 H Est Glomerular Filtrat Rate mL/min 8 L Glucose Level 68 L Calcium Level 8.4 Medications Medication Current Medications Albumin Human 100 ml @ 100 mls/hr WITH DIALYSIS PRN IV SBP <90 DURING DIALYSIS Last administered on 10/24/18 21:00; Admin Dose 100 MLS/HR; Start 10/24/18 at 18:00 Sodium Chloride 250 ml @ 250 mls/hr Q1H PRN IV tachycardia Last administered on 10/25/18 02:24; Admin Dose 250 MLS/HR; Start 10/25/18 at 01:00 Acetaminophen (Tylenol Tab) 650 mg Q4 PRN PO FEVER Last administered on 11/08/18 18:01; Admin Dose 650 MG; Start 10/25/18 at 01:00 Sevelamer Carbonate (Renvela) 800 mg WITH MEALS PO Last administered on 11/09/18 11:25; Admin Dose 800 MG; Start 10/25/18 at 07:35 Midodrine (Proamatine) 5 mg TID@09,13,17 PO Last administered on 11/09/18 13:40; Admin Dose 5 MG; Start 10/26/18 at 09:00 Lidocaine (Xylocaine 1% (Mdv) 20 ml) 1 ml WITH DIALYSIS PRN INJ PRIOR TO CAN ULLATION/HD; Start 10/26/18 at 12:30 Ondansetron HCl (Zofran Inj) 4 mg Q4H PRN IV NAUSEA AND/OR VOMITING Last administered on 11/07/18 09:33; Admin Dose 4 MG; Start 10/26/18 at 15:30 Epoetin Maxwell-epbx (Retacrit (Esrd)) 10,000 unit MoWeFr@1700 SC Last administered on 11/07/18 17:46; Admin Dose 10,000 UNIT; Start 10/28/18 at 17:00 Oxacillin Sodium 2 gm/Sodium Chloride 50 ml @ 100 mls/hr Q6 IVPB Last administered on 11/09/18 11:25; Admin Dose 100 MLS/HR; Start 10/30/18 at 18:00 Mupirocin (Bactroban) 1 applic BID TOP Last administered on 11/09/18 08:42; Admin Dose 1 APPLIC; Start 11/02/18 at 13:30 Heparin Sodium (Porcine) (Heparin (1000 Units/ml)) 6,100 unit AFTER DIALYSIS PRN CATHETER DIALYSIS Last administered on 11/09/18at 11:48; Admin Dose 6,100 UNIT; Start 11/07/18 at 14:00 Morphine Sulfate (morphine) 3 mg Q4H PRN IV SEVERE PAIN LEVEL 7-10 Last administered on 11/09/18at 14:46; Admin Dose 3 MG; Start 11/08/18 at 19:30 Diphenhydramine HCl (Benadryl) 25 mg Q4H PRN IV ALLERGIC REACTION Last administered on 11/09/18at 15:26; Admin Dose 25 MG; Start 11/09/18 at 09:00 Metoprolol Tartrate (Lopressor) 5 mg Q4H PRN IV HR>110 Hold SBP<100; Start 11/09/18 at 14:30 GINGER HARDIN M.D. Nov 09, 2018 16:02
[2018-11-09] MEDS: EPOETIN ALFA-EPBX (ESRD) 10,000 UNIT/ML VIAL SC SCH (18:55)
[2018-11-10] VITALS (12 sets, daily range): BP systolic 102–134; BP diastolic 55–93; PULSE 89–140; RESP 16–18
[2018-11-10] MEDS: morphine 4 MG/ML VIAL IV PRN ×4 (03:07→21:22)
[2018-11-10] MEDS: DIPHENHYDRAMINE 50 MG INJ IV PRN ×4 (04:09→21:22)
[2018-11-10] MEDS: OXACILLIN 2 GM in SOD CHLORIDE 0.9% 50 ML IVPB SCH ×3 (06:12→17:03)
[2018-11-10] MEDS ORDERED: FENTAnyl 50 MCG/ML VIAL ONE (07:53)
[2018-11-10] MEDS ORDERED: MIDAZOLAM 1 MG/ML 2 ML INJ ONE (07:53)
[2018-11-10] MEDS ORDERED: HEPARIN 1000 UNITS/ML 10 ML INJ ONE (07:54)
[2018-11-10] MEDS ORDERED: LIDOCAINE 1% (MDV) 20 ML INJ ONE ×2 (07:54→08:45)
[2018-11-10] MEDS: SEVELAMER CARBONATE 800 MG TABLET PO SCH ×3 (07:55→17:02)
[2018-11-10] MEDS ORDERED: DIPHENHYDRAMINE 50 MG INJ ONE (08:19)
[2018-11-10] MEDS ORDERED: IODIXANOL LOCM 100 ML BTL ONE (08:46)
--- NOTE | 2018-11-10 09:06 | HPN ---
Date/Time of Note Date/Time of Note DATE: 11/10/18 TIME: 09:06 Interval H&P Admission Note Pt. seen H&P reviewed: No system changes MELISSA LACKEY MD Nov 10, 2018 09:06
[2018-11-10] MEDS ORDERED: morphine 2 MG INJ IV STA (09:29)
[2018-11-10] MEDS ORDERED: DIPHENHYDRAMINE 50 MG INJ IV ONE (09:30)
[2018-11-10] MEDS: SOD CHLORIDE 0.9% 250 ML IV PRN (09:39)
[2018-11-10] MEDS: MIDODRINE 5 MG TAB PO SCH ×3 (10:16→17:03)
[2018-11-10] MEDS: MUPIROCIN 2% 22 GM OINT TOP SCH ×2 (10:17→20:10)
--- NOTE | 2018-11-10 13:03 | CONS ---
Assessment/Plan Assessment/Plan Hospital Course (Demo Recall) IMPRESSION: 1. Bacteremia, assess for endocarditis, intracardiac source of infection. s/p AMANDA 11/04 with no definite signs intracardiac infection 2. Abnormal electrocardiogram with lateral T-wave inversion. 3. Hypertension, mainly diastolic labile, currently improved. 4. Leukemia. 5. Anemia. 6. Initial hypotension. Initially with midodrine- somewhat labile but not requiring midodrine 7. Tachycardia-S tach now improved, strted after HD yesterday. Still has with ambulation. ? relative volume depletion 8. ESRD on HD s/p new R femoral HD catheter Recc: -Tele -continue abx's and f/u cx data -HD for volume removal but maybe should take off less with next session -IVP PRN BB -was given dose of midodrine today -check orthostatics Consultation Date/Type/Reason Admit Date/Time Oct 25, 2018 at 04:13 Initial Consult Date 10/25/18 Type of Consult Cardiology Reason for Consultation bacteremia/tachycardia Requesting Provider: LUANNE WALTER MD Date/Time of Note DATE: 11/10/18 TIME: 12:59 Exam/Review of Systems Vital Signs Vitals Vital Signs Date Temp Pulse Resp B/P (MAP) Pulse Ox O2 O2 Flow FiO2 Time Delivery Rate 11/10/18 97.8 91 16 111/74 98 Room Air 11:11 (86) Intake and Output 11/09/18 11/09/18 11/10/18 1515:00 23:00 07:00 IntakeIntake Total 990 ml 300 ml OutputOutput Total 3200 ml BalanceBalance -3200 ml 990 ml 300 ml Exam Exam Review of Systems: CONSTITUTIONAL: No fevers, chills. PULMONARY: No sob CARDIOVASCULAR: No chest pain/palpitations GASTROINTESTINAL: No nausea/vomiting. GENITOURINARY: No hematuria/dysuria. MUSCULOSKELETAL: No myagias/arthalgias. PSYCHIATRIC: The patient denies depression. NEUROLOGIC: No weakness Constitutional: alert Psych: no complaints Head: normocephalic ENMT: mucosa pink and moist Neck: supple, jvd (9 cm water) Respiratory: clear to auscultation Cardiovascular: regular rate and rhythm Gastrointestinal: soft Musculoskeletal: muscle tone (normal) Extremities: edema (none) 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: other (No focal deficts) Labs Result Diagram: 11/10/18 0820 11/10/18 0820 Results 24hrs Laboratory Tests Test 11/09/18 15:17 11/10/18 08:20 Prothrombin Time 14.9 15.2 H Prothrombin Time Ratio 1.2 1.2 INR International Normalized Ratio 1.16 1.19 Activated Partial Thromboplast Time 66.9 H 38.8 H Sodium Level 139 139 Potassium Level 4.8 5.8 H Chloride Level 95 #L 99 Carbon Dioxide Level 31 27 Anion Gap 13 13 Blood Urea Nitrogen 14 # 41 #H Creatinine 3.62 #H 5.97 #H Est Glomerular Filtrat Rate mL/min 14 L 8 L Glucose Level 111 # 82 Calcium Level 9.6 9.0 White Blood Count 8.7 # Red Blood Count 3.80 L Hemoglobin 11.9 L Hematocrit 38.4 Mean Corpuscular Volume 101.1 H Mean Corpuscular Hemoglobin 31.3 Mean Corpuscular Hemoglobin Concent 31.0 L Red Cell Distribution Width 16.8 H Platelet Count 215 Mean Platelet Volume 11.2 H Immature Granulocytes % 0.200 Neutrophils % 56.5 Lymphocytes % 29.6 Monocytes % 8.7 Eosinophils % 4.1 Basophils % 0.9 Nucleated Red Blood Cells % 0.0 Immature Granulocytes # 0.020 Neutrophils # 4.9 Lymphocytes # 2.6 Monocytes # 0.8 Eosinophils # 0.4 Basophils # 0.1 Nucleated Red Blood Cells # 0.0 Medications Medications Current Medications Albumin Human 100 ml @ 100 mls/hr WITH DIALYSIS PRN IV SBP <90 DURING DIALYSIS Last administered on 10/24/18at 21:00; Admin Dose 100 MLS/HR; Start 10/24/18 at 18:00 Sodium Chloride 250 ml @ 250 mls/hr Q1H PRN IV tachycardia Last administered on 11/10/18at 09:39; Admin Dose 250 MLS/HR; Start 10/25/18 at 01:00 Acetaminophen (Tylenol Tab) 650 mg Q4 PRN PO FEVER Last administered on 11/08/18at 18:01; Admin Dose 650 MG; Start 10/25/18 at 01:00 Sevelamer Carbonate (Renvela) 800 mg WITH MEALS PO Last administered on 11/09/18at 18:55; Admin Dose 800 MG; Start 10/25/18 at 07:35 Midodrine (Proamatine) 5 mg TID@,13,17 PO Last administered on 11/10/18 10:16; Admin Dose 5 MG; Start 10/26/18 at 09:00 Lidocaine (Xylocaine 1% (Mdv) 20 ml) 1 ml WITH DIALYSIS PRN INJ PRIOR TO CANULLATION/HD; Start 10/26/18 at 12:30 Ondansetron HCl (Zofran Inj) 4 mg Q4H PRN IV NAUSEA AND/OR VOMITING Last administered on 11/07/18 09:33; Admin Dose 4 MG; Start 10/26/18 at 15:30 Epoetin Maxwell-epbx (Retacrit (Esrd)) 10,000 unit MoWeFr@1700 SC Last administered on 11/09/18 18:55; Admin Dose 10,000 UNIT; Start 10/28/18 at 17:00 Oxacillin Sodium 2 gm/Sodium Chloride 50 ml @ 100 mls/hr Q6 IVPB Last administered on 11/10/18 06:12; Admin Dose 100 MLS/HR; Start 10/30/18 at 18:00 Mupirocin (Bactroban) 1 applic BID TOP Last administered on 11/10/18 10:17; Admin Dose 1 APPLIC; Start 11/02/18 at 13:30 Heparin Sodium (Porcine) (Heparin (1000 Units/ml)) 6,100 unit AFTER DIALYSIS PRN CATHETER DIALYSIS Last administered on 11/09/18 11:48; Admin Dose 6,100 UNIT; Start 11/07/18 at 14:00 Morphine Sulfate (morphine) 3 mg Q4H PRN IV SEVERE PAIN LEVEL 7-10 Last administered on 11/10/18 07:17; Admin Dose 3 MG; Start 11/08/18 at 19:30 Diphenhydramine HCl (Benadryl) 25 mg Q4H PRN IV ALLERGIC REACTION Last administered on 11/10/18 09:26; Admin Dose 25 MG; Start 11/09/18 at 09:00 Metoprolol Tartrate (Lopressor) 5 mg Q4H PRN IV HR>110 Hold SBP<100; Start 11/09/18 at 14:30 HENRIQUE GARCIA Nov 10, 2018 13:03
--- NOTE | 2018-11-10 14:02 | PN ---
Date/Time of Note Date/Time of Note DATE: 11/10/18 TIME: 13:57 Assessment/Plan VTE Prophylaxis Risk score (from Ns)>0 risk: 5 SCD applied (from Ns): No SCD contraindicated: bilateral LE trauma Pharmacological prophylaxis: NA/contraindicated Pharm contraindication: anticoag not tolerated Lines/Catheters [facility] PERMACATH Urinary Cath still in place: No Assessment/Plan Hospital Course Patient is status post right hemodialysis catheter removal due to right groin hematoma, status post left femoral hemodialysis catheter insertion. Patient is awake alert, gets tachycardic when out of bed, continue pain management and current care, bedrest. Discussed with case management patient is currently on oxacillin every 6 hours with recommendation to continue until November 18, if patient can tolerate hemodialysis via left femoral catheter recommend short term custodial facility placement. Assessment/Plan -Sepsis with DIMITRI bacteremia with fevers, leukocytosis, and hypotension. patient is currently continued on oxacillin 2 g every 6 hours Continue antibiotics per ID. Dr. Arora is following in ID consultation. AMANDA is negative for vegetation. Dr. Barrera is following in cardiology consultation. -Hemodialysis dependent end-stage renal disease, continue dialysis per nephrology. Dr. Beltran is following in nephrology consultation. -Leukemia, patient is undergoing chemotherapy last chemo was on Wednesday10/11/18. -Anemia multifactorial chronic disease and recent chemo, status post blood tra nsfusion, continue to monitor H&H, continue Epogen. -Mineral bone disease with renal osteodystrophy. No acute fractures, traumatic subluxations, osteomyelitis or diskitis per MRI of the lumbar spine. -Primary hyperparathyroidism, status post complete parathyroidectomy and partial left thyroid lobectomy 2 years ago. -Left femoral hemodialysis catheter present on admission. Further recommendations based on clinical course. Plan of care discussed with Dr. Turner. Result Diagram: 11/10/18 0820 11/10/18 0820 Results 24hrs Laboratory Tests Test 11/09/18 15:17 11/10/18 08:20 Prothrombin Time 14.9 15.2 H Prothrombin Time Ratio 1.2 1.2 INR International Normalized Ratio 1.16 1.19 Activated Partial Thromboplast Time 66.9 H 38.8 H Sodium Level 139 139 Potassium Level 4.8 5.8 H Chloride Level 95 #L 99 Carbon Dioxide Level 31 27 Anion Gap 13 13 Blood Urea Nitrogen 14 # 41 #H Creatinine 3.62 #H 5.97 #H Est Glomerular Filtrat Rate mL/min 14 L 8 L Glucose Level 111 # 82 Calcium Level 9.6 9.0 White Blood Count 8.7 # Red Blood Count 3.80 L Hemoglobin 11.9 L Hematocrit 38.4 Mean Corpuscular Volume 101.1 H Mean Corpuscular Hemoglobin 31.3 Mean Corpuscular Hemoglobin Concent 31.0 L Red Cell Distribution Width 16.8 H Platelet Count 215 Mean Platelet Volume 11.2 H Immature Granulocytes % 0.200 Neutrophils % 56.5 Lymphocytes % 29.6 Monocytes % 8.7 Eosinophils % 4.1 Basophils % 0.9 Nucleated Red Blood Cells % 0.0 Immature Granulocytes # 0.020 Neutrophils # 4.9 Lymphocytes # 2.6 Monocytes # 0.8 Eosinophils # 0.4 Basophils # 0.1 Nucleated Red Blood Cells # 0.0 Exam/Review of Systems Exam Vitals Vital Signs Date Temp Pulse Resp B/P (MAP) Pulse Ox O2 O2 Flow FiO2 Time Delivery Rate 11/10/18 100 103/66 13:03 (78) 11/10/18 97.8 16 98 Room Air 11:11 Intake and Output 11/09/18 11/09/18 11/10/18 1515:00 23:00 07:00 IntakeIntake Total 990 ml 300 ml OutputOutput Total 3200 ml BalanceBalance -3200 ml 990 ml 300 ml Exam Constitutional: alert Respiratory: clear to auscultation Cardiovascular: regular rate and rhythm Gastrointestinal: soft, non-tender Musculoskeletal: nl extremities to inspection Extremities: normal pulses 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: nl mental status Skin: nl turgor Additional Comments Left femoral hemodialysis catheter, left upper extremity AV fistula nonfunctional Results Results 24hrs Laboratory Tests Test 11/09/18 15:17 11/10/18 08:20 Prothrombin Time 14.9 15.2 H Prothrombin Time Ratio 1.2 1.2 INR International Normalized Ratio 1.16 1.19 Activated Partial Thromboplast Time 66.9 H 38.8 H Sodium Level 139 139 Potassium Level 4.8 5.8 H Chloride Level 95 #L 99 Carbon Dioxide Level 31 27 Anion Gap 13 13 Blood Urea Nitrogen 14 # 41 #H Creatinine 3.62 #H 5.97 #H Est Glomerular Filtrat Rate mL/min 14 L 8 L Glucose Level 111 # 82 Calcium Level 9.6 9.0 White Blood Count 8.7 # Red Blood Count 3.80 L Hemoglobin 11.9 L Hematocrit 38.4 Mean Corpuscular Volume 101.1 H Mean Corpuscular Hemoglobin 31.3 Mean Corpuscular Hemoglobin Concent 31.0 L Red Cell Distribution Width 16.8 H Platelet Count 215 Mean Platelet Volume 11.2 H Immature Granulocytes % 0.200 Neutrophils % 56.5 Lymphocytes % 29.6 Monocytes % 8.7 Eosinophils % 4.1 Basophils % 0.9 Nucleated Red Blood Cells % 0.0 Immature Granulocytes # 0.020 Neutrophils # 4.9 Lymphocytes # 2.6 Monocytes # 0.8 Eosinophils # 0.4 Basophils # 0.1 Nucleated Red Blood Cells # 0.0 Medications Medication Current Medications Albumin Human 100 ml @ 100 mls/hr WITH DIALYSIS PRN IV SBP <90 DURING DIALYSIS Last administered on 10/24/18 21:00; Admin Dose 100 MLS/HR; Start 10/24/18 at 18:00 Sodium Chloride 250 ml @ 250 mls/hr Q1H PRN IV tachycardia Last administered on 11/10/18 09:39; Admin Dose 250 MLS/HR; Start 10/25/18 at 01:00 Acetaminophen (Tylenol Tab) 650 mg Q4 PRN PO FEVER Last administered on 11/08/18 18:01; Admin Dose 650 MG; Start 10/25/18 at 01:00 Sevelamer Carbonate (Renvela) 800 mg WITH MEALS PO Last administered on 11/10/18 13:01; Admin Dose 800 MG; Start 10/25/18 at 07:35 Midodrine (Proamatine) 5 mg TID@09,13,17 PO Last administered on 11/10/18 13:03; Admin Dose 5 MG; Start 10/26/18 at 09:00 Lidocaine (Xylocaine 1% (Mdv) 20 ml) 1 ml WITH DIALYSIS PRN INJ PRIOR TO CANULLATION/HD; Start 10/26/18 at 12:30 Ondansetron HCl (Zofran Inj) 4 mg Q4H PRN IV NAUSEA AND/OR VOMITING Last administered on 11/07/18 09:33; Admin Dose 4 MG; Start 10/26/18 at 15:30 Epoetin Maxwell-epbx (Retacrit (Esrd)) 10,000 unit MoWeFr@1700 SC Last administered on 11/09/18 18:55; Admin Dose 10,000 UNIT; Start 10/28/18 at 17:00 Oxacillin Sodium 2 gm/Sodium Chloride 50 ml @ 100 mls/hr Q6 IVPB Last administered on 11/10/18 13:01; Admin Dose 100 MLS/HR; Start 10/30/18 at 18:00 Mupirocin (Bactroban) 1 applic BID TOP Last administered on 11/10/18 10:17; Admin Dose 1 APPLIC; Start 11/02/18 at 13:30 Heparin Sodium (Porcine) (Heparin (1000 Units/ml)) 6,100 unit AFTER DIALYSIS PRN CATHETER DIALYSIS Last administered on 11/09/18 11:48; Admin Dose 6,100 UNIT; Start 11/07/18 at 14:00 Morphine Sulfate (morphine) 3 mg Q4H PRN IV SEVERE PAIN LEVEL 7-10 Last administered on 11/10/18 07:17; Admin Dose 3 MG; Start 11/08/18 at 19:30 Diphenhydramine HCl (Benadryl) 25 mg Q4H PRN IV ALLERGIC REACTION Last administered on 11/10/18 09:26; Admin Dose 25 MG; Start 11/09/18 at 09:00 Metoprolol Tartrate (Lopressor) 5 mg Q4H PRN IV HR>110 Hold SBP<100; Start 11/09/18 at 14:30 ERICK ROBERTSON Nov 10, 2018 14:02
--- NOTE | 2018-11-10 14:26 | CONS ---
Assessment/Plan Assessment/Plan Assessment/Plan (Daily) 1. Septic shock s/p Levophed 2. ESRD on HD MWF schedule , left femoral permacath for HD access 3. Bacteremia with Blood cx growing staph aureus -s/p removal of left permacath on 11/04/18- pt remained line free for 3 days then reinsertion of Right groin permacath on 11/07/18 4. H/o Leukemia currently on chemotherapy, last chem on 10/21/18 5. H/o Primary hyperparathyroidism, status post complete parathyroidectomy and partial left thyroid lobectomy 2 years ago. 6. H/o Anemia of ESRD 7, Difficult vascular Access Plan: s/p Removal of Right groin permacath,due to pericatheter hematoma, now s/p left groin permacath placement, post catheter pt had a little bleeding which stopped with IV DDAVP and pressure application staph aureus bacteremia - IV abx oxacillin 2 gram IV Q 6 hr - ID following Continue other home medications, Midodrine 5 mg PO TID for BP support will keep pt on MWF schedule - HD ordered for Wednesday AM will follow up Consultation Date/Type/Reason Admit Date/Time Oct 25, 2018 at 04:13 Initial Consult Date Type of Consult NEPHROLOGY Requesting Provider: LUANNE WALTER MD Date/Time of Note DATE: 11/10/18 TIME: 14:26 24 HR Interval Summary Free Text/Dictation s/p Removal of Right groin permacath, now s/p left groin permacath placement, post catheter pt had a little bleeding which stopped with IV DDAVP and pressure application Exam/Review of Systems Exam Vitals Vital Signs Date Temp Pulse Resp B/P (MAP) Pulse Ox O2 O2 Flow FiO2 Time Delivery Rate 11/10/18 100 103/66 13:03 (78) 11/10/18 97.8 16 98 Room Air 11:11 Intake and Output 11/09/18 11/09/18 11/10/18 1515:00 23:00 07:00 IntakeIntake Total 990 ml 300 ml OutputOutput Total 3200 ml BalanceBalance -3200 ml 990 ml 300 ml Exam Constitutional: alert, awake, no acute distress Respiratory: clear to auscultation Cardiovascular: regular rate and rhythm Gastrointestinal: soft, non-tender Musculoskeletal: nl extremities to inspection Extremities: normal pulses 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: nl mental status Additional Comments Left femoral hemodialysis catheter, left upper extremity AV fistula nonfunctional Results Result Diagram: 11/10/18 0820 11/10/18 0820 Results 24hrs Laboratory Tests Test 11/09/18 15:17 11/10/18 08:20 Prothrombin Time 14.9 15.2 H Prothrombin Time Ratio 1.2 1.2 INR International Normalized Ratio 1.16 1.19 Activated Partial Thromboplast Time 66.9 H 38.8 H Sodium Level 139 139 Potassium Level 4.8 5.8 H Chloride Level 95 #L 99 Carbon Dioxide Level 31 27 Anion Gap 13 13 Blood Urea Nitrogen 14 # 41 #H Creatinine 3.62 #H 5.97 #H Est Glomerular Filtrat Rate mL/min 14 L 8 L Glucose Level 111 # 82 Calcium Level 9.6 9.0 White Blood Count 8.7 # Red Blood Count 3.80 L Hemoglobin 11.9 L Hematocrit 38.4 Mean Corpuscular Volume 101.1 H Mean Corpuscular Hemoglobin 31.3 Mean Corpuscular Hemoglobin Concent 31.0 L Red Cell Distribution Width 16.8 H Platelet Count 215 Mean Platelet Volume 11.2 H Immature Granulocytes % 0.200 Neutrophils % 56.5 Lymphocytes % 29.6 Monocytes % 8.7 Eosinophils % 4.1 Basophils % 0.9 Nucleated Red Blood Cells % 0.0 Immature Granulocytes # 0.020 Neutrophils # 4.9 Lymphocytes # 2.6 Monocytes # 0.8 Eosinophils # 0.4 Basophils # 0.1 Nucleated Red Blood Cells # 0.0 Medications Medication Current Medications Albumin Human 100 ml @ 100 mls/hr WITH DIALYSIS PRN IV SBP <90 DURING DIALYSIS Last administered on 10/24/18at 21:00; Admin Dose 100 MLS/HR; Start 10/24/18 at 18:00 Sodium Chloride 250 ml @ 250 mls/hr Q1H PRN IV tachycardia Last administered on 11/10/18at 09:39; Admin Dose 250 MLS/HR; Start 10/25/18 at 01:00 Acetaminophen (Tylenol Tab) 650 mg Q4 PRN PO FEVER Last administered on at 18:01; Admin Dose 650 MG; Start 10/25/18 at 01:00 Sevelamer Carbonate (Renvela) 800 mg WITH MEALS PO Last administered on 11/10/18at 13:01; Admin Dose 800 MG; Start 10/25/18 at 07:35 Midodrine (Proamatine) 5 mg TID@09,13,17 PO Last administered on 11/10/18 13:03; Admin Dose 5 MG; Start 10/26/18 at 09:00 Lidocaine (Xylocaine 1% (Mdv) 20 ml) 1 ml WITH DIALYSIS PRN INJ PRIOR TO CANULLATION/HD; Start 10/26/18 at 12:30 Ondansetron HCl (Zofran Inj) 4 mg Q4H PRN IV NAUSEA AND/OR VOMITING Last administered on 11/07/18 09:33; Admin Dose 4 MG; Start 10/26/18 at 15:30 Epoetin Maxwell-epbx (Retacrit (Esrd)) 10,000 unit MoWeFr@1700 SC Last administered on 11/09/18 18:55; Admin Dose 10,000 UNIT; Start 10/28/18 at 17:00 Oxacillin Sodium 2 gm/Sodium Chloride 50 ml @ 100 mls/hr Q6 IVPB Last admini stered on 11/10/18 13:01; Admin Dose 100 MLS/HR; Start 10/30/18 at 18:00 Mupirocin (Bactroban) 1 applic BID TOP Last administered on 11/10/18 10:17; Admin Dose 1 APPLIC; Start 11/02/18 at 13:30 Heparin Sodium (Porcine) (Heparin (1000 Units/ml)) 6,100 unit AFTER DIALYSIS PRN CATHETER DIALYSIS Last administered on 11/09/18 11:48; Admin Dose 6,100 UNIT; Start 11/07/18 at 14:00 Morphine Sulfate (morphine) 3 mg Q4H PRN IV SEVERE PAIN LEVEL 7-10 Last administered on 11/10/18 07:17; Admin Dose 3 MG; Start 11/08/18 at 19:30 Diphenhydramine HCl (Benadryl) 25 mg Q4H PRN IV ALLERGIC REACTION Last administered on 11/10/18 09:26; Admin Dose 25 MG; Start 11/09/18 at 09:00 Metoprolol Tartrate (Lopressor) 5 mg Q4H PRN IV HR>110 Hold SBP<100; Start 11/09/18 at 14:30 HENRIQUE GRANADO MD Nov 10, 2018 14:26
[2018-11-10] MEDS ORDERED: DESMOPRESSIN 20 MCG in SOD CHLORIDE 0.9% 50 ML IVPB STA (14:28)
[2018-11-10] MEDS ORDERED: NA POLYST SULFON 15 GM/60 ML BTL PO ONE (14:30)
[2018-11-10] MEDS: ONDANSETRON 4 MG INJ IV PRN (20:10)
--- NOTE | 2018-11-10 20:15 | CONS ---
Assessment/Plan Assessment/Plan Hospital Course (Demo Recall) # sepsis, heme/onc - s/p sepsis due to bacteremia, recurrent. Resolved - s/p persistent and recurrent bacteremia on 10/24, 10/25, and 10/26 due to MSSA; repeat blood cultures on 10/28 & 11/02 were negative; transthoracic echo did not mention vegetation; AMANDA showed no vegetation - the source of her bacteremia was her HD catheter. No other focus of infection was found: WBC tagged scan on 11/05/2018 showed several non-specific foci of increased activity along R anterior chest wall;however, chest CT on 11/07/2018 showed no fluid collection identified within the chest wall. 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 Per Pt, she had pruritus, "bumps" and green discharge from the catheter site. Its culture on 10/31/2018 grew S. aureus. It was removed on 11/04/2018 - s/p placement of an HD catheter on R groin on 11/07/2018-->removed on 11/10/18 - s/p placement of an HD catheter on L groin on 11/10/2018 - h/o removal of permacath on R chest wall on 07/14/2018 - h/o R femoral HD justin catheter placement 07/14/2018, replaced by HD permacath 07/19/2018 - h/o pain/increased sensitivity of R groin after replacement of the Perez with permacath. soft tissue CHRISTEL on 07/20/2018 showed no abnormality at the site of the palpable lesion adjacent to R inguinal region HD catheter - h/o swelling on the scalp and chest wall, possibly due to collateral veins as a result of thrombosis of AVF - h/o removal and placement of a new Perez catheter in 05/2018. The culture of the tip of the removed catheter, blood cultures and swab of the catheter site were negative. Pt completed an empiric course of renally dosed pip/tazo (06/13-06/18/2018) - h/o placement of a permacath on R chest wall on 06/23/2018 - h/o creation of [place] [facility] [place] - thrombosed L brachiocephalic AV fistula, 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 Last used for HD in 04/2018. Was scheduled to get a new graft in [facility] [place] - h/o 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 Pt took renally dosed valACV (07/15/2018-07/17/2018) - adverse reaction to vancomycin (pruritus) - adverse reaction to linezolid (thrombocytopenia). Linezolid was discontinued (06/12/2018-06/17/2018) - ?adverse reaction to cefazolin (severe abd pain/cramping, although pt tolerated a 14 day course of cefazolin in 06/2018) - painful nodule on L thumb; X-ray shows possible subcutaneous mass adjacent to the radial aspect of the first metacarpal. Recommendations: - ordered soft tissue CHRISTEL of b/l groin because Pt c/o severe pain, swelling and warmth from b/l groin - continue renally dosed oxacillin 2gm IV q6 hours (10/30/2018-) for 2 weeks after removal of her HD catheter, i.e. 11/04/18-11/18/18. management d/w Pt, her RN Consultation Date/Type/Reason Admit Date/Time Oct 25, 2018 at 04:13 Initial Consult Date 10/25/18 Type of Consult ID Requesting Provider: LUANNE WALTER MD Date/Time of Note DATE: 11/10/18 TIME: 20:11 24 HR Interval Summary Constitutional: no complaints Detailed Summary Eyes: no complaints ENT: no complaints Respiratory: no complaints Cardiovascular: no complaints Gastrointestinal: nausea, vomiting Genitourinary: other (+pain and swelling of b/l groin) Musculoskeletal: restricted range of motion Skin: bruising (b/l groin) Neurologic: no complaints Exam/Review of Systems Exam Vitals Vital Signs Date Temp Pulse Resp B/P (MAP) Pulse Ox O2 O2 Flow FiO2 Time Delivery Rate 11/10/18 110 113/ 17:37 11/10/18 98.2 18 96 Nasal 15:56 Cannula Intake and Output 11/09/18 11/09/18 11/10/18 1515:00 23:00 07:00 IntakeIntake Total 990 ml 300 ml OutputOutput Total 3200 ml BalanceBalance -3200 ml 990 ml 300 ml Constitutional: alert, oriented, well developed Psych: no complaints, nl mood/affect Head: normocephalic, atraumatic, other (alopecia) Eyes: nl conjunctiva, nl lids ENMT: nl external ears & nose, nl nasal mucosa & septum, mucosa pink and moist Neck: non-tender Respiratory: normal air movement Cardiovascular: edema (b/l groin) Gastrointestinal: soft, non-tender; No tender Extremities: edema (b/l groin); No pitting pedal edema Skin: rash or lesions (tense skin of b/l groin, HD catheter intact in L groin) Results Result Diagram: 11/10/18 0820 11/10/18 1644 Results 24hrs Laboratory Tests Test 11/10/18 08:20 11/10/18 16:44 White Blood Count 8.7 # Red Blood Count 3.80 L Hemoglobin 11.9 L Hematocrit 38.4 Mean Corpuscular Volume 101.1 H Mean Corpuscular Hemoglobin 31.3 Mean Corpuscular Hemoglobin Concent 31.0 L Red Cell Distribution Width 16.8 H Platelet Count 215 Mean Platelet Volume 11.2 H Immature Granulocytes % 0.200 Neutrophils % 56.5 Lymphocytes % 29.6 Monocytes % 8.7 Eosinophils % 4.1 Basophils % 0.9 Nucleated Red Blood Cells % 0.0 Immature Granulocytes # 0.020 Neutrophils # 4.9 Lymphocytes # 2.6 Monocytes # 0.8 Eosinophils # 0.4 Basophils # 0.1 Nucleated Red Blood Cells # 0.0 Prothrombin Time 15.2 H Prothrombin Time Ratio 1.2 INR International Normalized Ratio 1.19 Activated Partial Thromboplast Time 38.8 H Sodium Level 139 139 Potassium Level 5.8 H 5.2 H Chloride Level 99 98 Carbon Dioxide Level 27 27 Anion Gap 13 14 H Blood Urea Nitrogen 41 #H 48 H Creatinine 5.97 #H 6.87 H Est Glomerular Filtrat Rate mL/min 8 L 7 L Glucose Level 82 109 Calcium Level 9.0 8.6 Medications Medication Current Medications Albumin Human 100 ml @ 100 mls/hr WITH DIALYSIS PRN IV SBP <90 DURING DIALYSIS Last administered on 10/24/18 21:00; Admin Dose 100 MLS/HR; Start 10/24/18 at 18:00 Sodium Chloride 250 ml @ 250 mls/hr Q1H PRN IV tachycardia Last administered on 11/10/18 09:39; Admin Dose 250 MLS/HR; Start 10/25/18 at 01:00 Acetaminophen (Tylenol Tab) 650 mg Q4 PRN PO FEVER Last administered on 11/08/18 18:01; Admin Dose 650 MG; Start 10/25/18 at 01:00 Sevelamer Carbonate (Renvela) 800 mg WITH MEALS PO Last administered on 11/10/18 17:02; Admin Dose 800 MG; Start 10/25/18 at 07:35 Midodrine (Proamatine) 5 mg TID@09,13,17 PO Last administered on 11/10/18 17:03; Admin Dose 5 MG; Start 10/26/18 at 09:00 Lidocaine (Xylocaine 1% (Mdv) 20 ml) 1 ml WITH DIALYSIS PRN INJ PRIOR TO CANULLATION/HD; Start 10/26/18 at 12:30 Ondansetron HCl (Zofran Inj) 4 mg Q4H PRN IV NAUSEA AND/OR VOMITING Last administered on 11/07/18 09:33; Admin Dose 4 MG; Start 10/26/18 at 15:30 Epoetin Maxwell-epbx (Retacrit (Esrd)) 10,000 unit MoWeFr@1700 SC Last ad ministered on 11/09/18 18:55; Admin Dose 10,000 UNIT; Start 10/28/18 at 17:00 Oxacillin Sodium 2 gm/Sodium Chloride 50 ml @ 100 mls/hr Q6 IVPB Last administered on 11/10/18 17:03; Admin Dose 100 MLS/HR; Start 10/30/18 at 18:00 Mupirocin (Bactroban) 1 applic BID TOP Last administered on 11/10/18 10:17; Admin Dose 1 APPLIC; Start 11/02/18 at 13:30 Heparin Sodium (Porcine) (Heparin (1000 Units/ml)) 6,100 unit AFTER DIALYSIS PRN CATHETER DIALYSIS Last administered on 11/09/18 11:48; Admin Dose 6,100 UNIT; Start 11/07/18 at 14:00 Morphine Sulfate (morphine) 3 mg Q4H PRN IV SEVERE PAIN LEVEL 7-10 Last administered on 11/10/18at 17:02; Admin Dose 3 MG; Start 11/08/18 at 19:30 Diphenhydramine HCl (Benadryl) 25 mg Q4H PRN IV ALLERGIC REACTION Last administered on 11/10/18 16:04; Admin Dose 25 MG; Start 11/09/18 at 09:00 Metoprolol Tartrate (Lopressor) 5 mg Q4H PRN IV HR>110 Hold SBP<100; Start 11/09/18 at 14:30 GINGER HARDIN M.D. Nov 10, 2018 20:15
[2018-11-11] VITALS (20 sets, daily range): BP systolic 93–141; BP diastolic 55–103; PULSE 87–110; RESP 16–20
[2018-11-11] MEDS: OXACILLIN 2 GM in SOD CHLORIDE 0.9% 50 ML IVPB SCH ×4 (00:13→18:35)
[2018-11-11] MEDS: DIPHENHYDRAMINE 50 MG INJ IV PRN ×6 (01:40→22:34)
[2018-11-11] MEDS: morphine 4 MG/ML VIAL IV PRN ×6 (01:40→22:34)
--- NOTE | 2018-11-11 08:12 | CONS ---
Assessment/Plan Assessment/Plan Assessment/Plan (Daily) 1. Septic shock s/p Levophed 2. ESRD on HD MWF schedule , left femoral permacath for HD access 3. Bacteremia with Blood cx growing staph aureus -s/p removal of left permacath on 11/04/18- pt remained line free for 3 days then reinsertion of Right groin permacath on 11/07/18 4. H/o Leukemia currently on chemotherapy, last chem on 10/21/18 5. H/o Primary hyperparathyroidism, status post complete parathyroidectomy and partial left thyroid lobectomy 2 years ago. 6. H/o Anemia of ESRD 7, Difficult vascular Access Plan: s/p Removal of Right groin permacath,due to pericatheter hematoma, now s/p left groin permacath placement, post catheter pt had a little bleeding which stopped with IV DDAVP and pressure application -no bleeding from left groin catheter site, s/p DDAVP x 1 dose yesterday, S/p HD today 3 L removed, will plan aonther Extra HD tomorrow afternoon then pt will be on MWF schedule staph aureus bacteremia - IV abx oxacillin 2 gram IV Q 6 hr - ID following Continue other home medications, Midodrine 5 mg PO TID for BP support - will follow up Consultation Date/Type/Reason Admit Date/Time Oct 25, 2018 at 04:13 Initial Consult Date Type of Consult NEPHROLOGY Requesting Provider: LUANNE WALTER MD Date/Time of Note DATE: 11/11/18 TIME: 08:11 24 HR Interval Summary Free Text/Dictation no bleeding from left groin catheter site, s/p DDAVP x 1 dose yesterday, S/p HD today 3 L removed, BP stable Exam/Review of Systems Exam Vitals Vital Signs Date Temp Pulse Resp B/P (MAP) Pulse Ox O2 O2 Flow FiO2 Time Delivery Rate 11/11/18 98.1 91 16 122/65 95 Room Air 07:50 (84) Intake and Output 11/10/18 11/10/18 11/11/18 1515:00 23:00 07:00 IntakeIntake Total 530 ml 650 ml BalanceBalance 530 ml 650 ml Exam Constitutional: alert, awake, no acute distress Respiratory: clear to auscultation Cardiovascular: regular rate and rhythm Gastrointestinal: soft, non-tender Musculoskeletal: nl extremities to inspection Extremities: normal pulses 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: nl mental status Additional Comments Left femoral hemodialysis catheter, left upper extremity AV fistula nonfunctional Results Result Diagram: 11/11/18 0532 11/11/18 0532 Results 24hrs Laboratory Tests Test 11/10/18 08:20 11/10/18 16:44 11/11/18 05:32 White Blood Count 8.7 # 8.5 Red Blood Count 3.80 L 3.35 L Hemoglobin 11.9 L 10.5 L Hematocrit 38.4 34.0 L Mean Corpuscular Volume 101.1 H 101.5 H Mean Corpuscular Hemoglobin 31.3 31.3 Mean Corpuscular Hemoglobin Concent 31.0 L 30.9 L Red Cell Distribution Width 16.8 H 17.2 H Platelet Count 215 174 Mean Platelet Volume 11.2 H 11.4 H Immature Granulocytes % 0.200 0.200 Neutrophils % 56.5 62.7 Lymphocytes % 29.6 24.6 Monocytes % 8.7 8.1 Eosinophils % 4.1 3.3 Basophils % 0.9 1.1 Nucleated Red Blood Cells % 0.0 0.0 Immature Granulocytes # 0.020 0.020 Neutrophils # 4.9 5.3 Lymphocytes # 2.6 2.1 Monocytes # 0.8 0.7 Eosinophils # 0.4 0.3 Basophils # 0.1 0.1 Nucleated Red Blood Cells # 0.0 0.0 Prothrombin Time 15.2 H Prothrombin Time Ratio 1.2 INR International Normalized Ratio 1.19 Activated Partial Thromboplast Time 38.8 H Sodium Level 139 139 138 Potassium Level 5.8 H 5.2 H 6.7 *H Chloride Level 99 98 97 Carbon Dioxide Level 27 27 27 Anion Gap 13 14 H 14 H Blood Urea Nitrogen 41 #H 48 H 61 H Creatinine 5.97 #H 6.87 H 7.90 H Est Glomerular Filtrat Rate mL/min 8 L 7 L 6 L Glucose Level 82 109 87 Calcium Level 9.0 8.6 8.5 Medications Medication Current Medications Albumin Human 100 ml @ 100 mls/hr WITH DIALYSIS PRN IV SBP <90 DURING DIALYSIS Last administered on 10/24/18at 21:00; Admin Dose 100 MLS/HR; Start 10/24/18 at 18:00 Sodium Chloride 250 ml @ 250 mls/hr Q1H PRN IV tachycardia Last administered on 11/10/18 09:39; Admin Dose 250 MLS/HR; Start 10/25/18 at 01:00 Acetaminophen (Tylenol Tab) 650 mg Q4 PRN PO FEVER Last administered on 11/08/18 18:01; Admin Dose 650 MG; Start 10/25/18 at 01:00 Sevelamer Carbonate (Renvela) 800 mg WITH MEALS PO Last administered on 11/10/18 17:02; Admin Dose 800 MG; Start 10/25/18 at 07:35 Midodrine (Proamatine) 5 mg TID@09,13,17 PO Last administered on 11/10/18 17:03; Admin Dose 5 MG; Start 10/26/18 at 09:00 Lidocaine (Xylocaine 1% (Mdv) 20 ml) 1 ml WITH DIALYSIS PRN INJ PRIOR TO CANULLATION/HD; Start 10/26/18 at 12:30 Ondansetron HCl (Zofran Inj) 4 mg Q4H PRN IV NAUSEA AND/OR VOMITING Last administered on 11/10/18 20:10; Admin Dose 4 MG; Start 10/26/18 at 15:30 Epoetin Maxwell-epbx (Retacrit (Esrd)) 10,000 unit MoWeFr@1700 SC Last administered on 11/09/18 18:55; Admin Dose 10,000 UNIT; Start 10/28/18 at 17:00 Oxacillin Sodium 2 gm/Sodium Chloride 50 ml @ 100 mls/hr Q6 IVPB Last administered on 11/11/18 05:46; Admin Dose 100 MLS/HR; Start 10/30/18 at 18:00 Mupirocin (Bactroban) 1 applic BID TOP Last administered on 11/10/18 20:10; Admin Dose 1 APPLIC; Start 11/02/18 at 13:30 Heparin Sodium (Porcine) (Heparin (1000 Units/ml)) 6,100 unit AFTER DIALYSIS PRN CATHETER DIALYSIS Last administered on 11/09/18 11:48; Admin Dose 6,100 UNIT; Start 11/07/18 at 14:00 Morphine Sulfate (morphine) 3 mg Q4H PRN IV SEVERE PAIN LEVEL 7-10 Last administered on 11/11/18 05:45; Admin Dose 3 MG; Start 11/08/18 at 19:30 Diphenhydramine HCl (Benadryl) 25 mg Q4H PRN IV ALLERGIC REACTION Last administered on 11/11/18at 05:45; Admin Dose 25 MG; Start 11/09/18 at 09:00 Metoprolol Tartrate (Lopressor) 5 mg Q4H PRN IV HR>110 Hold SBP<100; Start 11/09/18 at 14:30 HENRIQUE GRANADO MD Nov 11, 2018 08:11
[2018-11-11] MEDS: MUPIROCIN 2% 22 GM OINT TOP SCH ×2 (09:00→21:42)
--- NOTE | 2018-11-11 09:05 | PN ---
Date/Time of Note Date/Time of Note DATE: 11/11/18 TIME: 08:51 Assessment/Plan VTE Prophylaxis Risk [place] [facility] [place] risk: 4 SCD applied (from [facility] [place] No SCD contraindicated: other Pharmacological prophylaxis: other Pharm contraindication: other Lines/Catheters IV [facility]from [facility] PERMA CATH Urinary Cath still in place: No Assessment/Plan Assessment/Plan -Hyperkalemia- per nephro -Sepsis with DIMITRI bacteremia with fevers, leukocytosis, and hypotension. patient is currently continued on oxacillin 2 g every 6 hours Continue antibiotics per ID. Dr. Arora is following in ID consultation. AMANDA is negative for vegetation. Dr. Barrera is following in cardiology consultation. -Hemodialysis dependent end-stage renal disease, continue dialysis per nephrology. Dr. Beltran is following in nephrology consultation. -Leukemia, patient is undergoing chemotherapy last chemo was on Wednesday10/11/18. -Anemia multifactorial chronic disease and recent chemo, status post blood transfusion, continue to monitor H&H, continue Epogen. -Mineral bone disease with renal osteodystrophy. No acute fractures, traumatic subluxations, osteomyelitis or diskitis per MRI of the lumbar spine. -Primary hyperparathyroidism, status post complete parathyroidectomy and partial left thyroid lobectomy 2 years ago. -Left femoral hemodialysis catheter present on admission. Further recommendations based on clinical course. Plan of care discussed with Dr. Turner. Result Diagram: 11/11/18 0532 11/11/18 0532 Results 24hrs Laboratory Tests Test 11/10/18 16:44 11/11/18 05:32 Sodium Level 139 138 Potassium Level 5.2 H 6.7 *H Chloride Level 98 97 Carbon Dioxide Level 27 27 Anion Gap 14 H 14 H Blood Urea Nitrogen 48 H 61 H Creatinine 6.87 H 7.90 H Est Glomerular Filtrat Rate mL/min 7 L 6 L Glucose Level 109 87 Calcium Level 8.6 8.5 White Blood Count 8.5 Red Blood Count 3.35 L Hemoglobin 10.5 L Hematocrit 34.0 L Mean Corpuscular Volume 101.5 H Mean Corpuscular Hemoglobin 31.3 Mean Corpuscular Hemoglobin Concent 30.9 L Red Cell Distribution Width 17.2 H Platelet Count 174 Mean Platelet Volume 11.4 H Immature Granulocytes % 0.200 Neutrophils % 62.7 Lymphocytes % 24.6 Monocytes % 8.1 Eosinophils % 3.3 Basophils % 1.1 Nucleated Red Blood Cells % 0.0 Immature Granulocytes # 0.020 Neutrophils # 5.3 Lymphocytes # 2.1 Monocytes # 0.7 Eosinophils # 0.3 Basophils # 0.1 Nucleated Red Blood Cells # 0.0 Subjective 24 Hr Interval Summary Free Text/Dictation K - 6.7. per nephro; HD today; cont to monitor left groin hematoma - US pending ENT: no complaints Respiratory: no complaints Cardiovascular: no complaints Gastrointestinal: no complaints Genitourinary: no complaints Musculoskeletal: no complaints Skin: other (hematoma- left groin) Neurologic: no complaints Endocrine: no complaints Lymphatic: no complaints Psychological: nl mood/affect Immunologic: no complaints Exam/Review of Systems Exam Vitals Vital Signs Date Temp Pulse Resp B/P (MAP) Pulse Ox O2 O2 Flow FiO2 Time Delivery Rate 11/11/18 98.1 91 16 122/65 95 Room Air 07:50 (84) Intake and Output 11/10/18 11/10/18 11/11/18 1515:00 23:00 07:00 IntakeIntake Total 530 ml 650 ml BalanceBalance 530 ml 650 ml Constitutional: alert, well developed Psych: nl mood/affect Head: normocephalic Eyes: nl lids, nl sclera ENMT: nl external ears & nose Neck: non-tender Respiratory: clear to auscultation Cardiovascular: nl pulses, other (s1s2) Gastrointestinal: soft, non-tender Musculoskeletal: nl extremities to inspection Extremities: normal pulses 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: nl mental status, nl speech Skin: other (left groin hematoma) Results Results 24hrs Laboratory Tests Test 11/10/18 16:44 11/11/18 05:32 Sodium Level 139 138 Potassium Level 5.2 H 6.7 *H Chloride Level 98 97 Carbon Dioxide Level 27 27 Anion Gap 14 H 14 H Blood Urea Nitrogen 48 H 61 H Creatinine 6.87 H 7.90 H Est Glomerular Filtrat Rate mL/min 7 L 6 L Glucose Level 109 87 Calcium Level 8.6 8.5 White Blood Count 8.5 Red Blood Count 3.35 L Hemoglobin 10.5 L Hematocrit 34.0 L Mean Corpuscular Volume 101.5 H Mean Corpuscular Hemoglobin 31.3 Mean Corpuscular Hemoglobin Concent 30.9 L Red Cell Distribution Width 17.2 H Platelet Count 174 Mean Platelet Volume 11.4 H Immature Granulocytes % 0.200 Neutrophils % 62.7 Lymphocytes % 24.6 Monocytes % 8.1 Eosinophils % 3.3 Basophils % 1.1 Nucleated Red Blood Cells % 0.0 Immature Granulocytes # 0.020 Neutrophils # 5.3 Lymphocytes # 2.1 Monocytes # 0.7 Eosinophils # 0.3 Basophils # 0.1 Nucleated Red Blood Cells # 0.0 Medications Medication Current Medications Albumin Human 100 ml @ 100 mls/hr WITH DIALYSIS PRN IV SBP <90 DURING DIALYSIS Last administered on 10/24/18 21:00; Admin Dose 100 MLS/HR; Start 10/24/18 at 18:00 Sodium Chloride 250 ml @ 250 mls/hr Q1H PRN IV tachycardia Last administered on 11/10/18 09:39; Admin Dose 250 MLS/HR; Start 10/25/18 at 01:00 Acetaminophen (Tylenol Tab) 650 mg Q4 PRN PO FEVER Last administered on 11/08/18 18:01; Admin Dose 650 MG; Start 10/25/18 at 01:00 Sevelamer Carbonate (Renvela) 800 mg WITH MEALS PO Last administered on 11/10/18 17:02; Admin Dose 800 MG; Start 10/25/18 at 07:35 Midodrine (Proamatine) 5 mg TID@09,13,17 PO Last administered on 11/10/18 17:03; Admin Dose 5 MG; Start 10/26/18 at 09:00 Lidocaine (Xylocaine 1% (Mdv) 20 ml) 1 ml WITH DIALYSIS PRN INJ PRIOR TO CANULLATION/HD; Start 10/26/18 at 12:30 Ondansetron HCl (Zofran Inj) 4 mg Q4H PRN IV NAUSEA AND/OR VOMITING Last administered on 11/10/18 20:10; Admin Dose 4 MG; Start 10/26/18 at 15:30 Epoetin Maxwell-epbx (Retacrit (Esrd)) 10,000 unit MoWeFr@1700 SC Last admini stered on 11/09/18 18:55; Admin Dose 10,000 UNIT; Start 10/28/18 at 17:00 Oxacillin Sodium 2 gm/Sodium Chloride 50 ml @ 100 mls/hr Q6 IVPB Last administered on 11/11/18 05:46; Admin Dose 100 MLS/HR; Start 10/30/18 at 18:00 Mupirocin (Bactroban) 1 applic BID TOP Last administered on 11/10/18 20:10; Admin Dose 1 APPLIC; Start 11/02/18 at 13:30 Heparin Sodium (Porcine) (Heparin (1000 Units/ml)) 6,100 unit AFTER DIALYSIS PRN CATHETER DIALYSIS Last administered on 11/09/18 11:48; Admin Dose 6,100 UNIT; Start 11/07/18 at 14:00 Morphine Sulfate (morphine) 3 mg Q4H PRN IV SEVERE PAIN LEVEL 7-10 Last administered on 11/11/18 05:45; Admin Dose 3 MG; Start 11/08/18 at 19:30 Diphenhydramine HCl (Benadryl) 25 mg Q4H PRN IV ALLERGIC REACTION Last administered on 11/11/18 05:45; Admin Dose 25 MG; Start 11/09/18 at 09:00 Metoprolol Tartrate (Lopressor) 5 mg Q4H PRN IV HR>110 Hold SBP<100; Start 11/09/18 at 14:30 EDILMA CASIANO Nov 11, 2018 09:01
[2018-11-11] MEDS: SEVELAMER CARBONATE 800 MG TABLET PO SCH ×3 (09:46→18:20)
[2018-11-11] MEDS: MIDODRINE 5 MG TAB PO SCH ×3 (09:46→18:20)
--- NOTE | 2018-11-11 12:16 | CONS ---
Assessment/Plan Assessment/Plan Hospital Course (Demo Recall) IMPRESSION: 1. Bacteremia, assess for endocarditis, intracardiac source of infection. s/p AMANDA 11/04 with no definite signs intracardiac infection 2. Abnormal electrocardiogram with lateral T-wave inversion. 3. Hypertension, mainly diastolic labile, currently improved. 4. Leukemia. 5. Anemia. 6. Initial hypotension. Initially with midodrine- somewhat labile but not requiring midodrine 7. Tachycardia-S tach now improved, strted after HD yesterday. Still has with ambulation. ? relative volume depletion 8. ESRD on HD s/p new R femoral HD catheter Recc: -Tele -continue abx's and f/u cx data -HD for volume removal but maybe should take off less with next session -IVP PRN BB -Contineu midodrine as necessary -check orthostatics? not done. Will reorder Consultation Date/Type/Reason Admit Date/Time Oct 25, 2018 at 04:13 Initial Consult Date 10/25/18 Type of Consult Cardiology Reason for Consultation tachycardia Requesting Provider: LUANNE WALTER MD Date/Time of Note DATE: 11/11/18 TIME: 12:08 Exam/Review of Systems Vital Signs Vitals Vital Signs Date Temp Pulse Resp B/P (MAP) Pulse Ox O2 O2 Flow FiO2 Time Delivery Rate 11/11/18 97.6 105 16 111/82 96 Room Air 11:50 (92) Intake and Output 11/10/18 11/10/18 11/11/18 1515:00 23:00 07:00 IntakeIntake Total 530 ml 650 ml BalanceBalance 530 ml 650 ml Exam Exam Review of Systems: CONSTITUTIONAL: No fevers, chills. PULMONARY: No sob CARDIOVASCULAR: No chest pain/palpitations GASTROINTESTINAL: No nausea/vomiting. GENITOURINARY: No hematuria/dysuria. MUSCULOSKELETAL: No myagias/arthalgias. PSYCHIATRIC: The patient denies depression. NEUROLOGIC: No weakness Constitutional: alert Psych: no complaints Head: normocephalic ENMT: mucosa pink and moist Neck: supple, jvd (8 cm water) Respiratory: clear to auscultation Cardiovascular: regular rate and rhythm Gastrointestinal: soft, non-tender Musculoskeletal: muscle tone (normal) Extremities: edema (none) 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: other (No focal deficits) Labs Result Diagram: 11/11/18 0532 11/11/18 0532 Results 24hrs Laboratory Tests Test 11/10/18 16:44 11/11/18 05:32 Sodium Level 139 138 Potassium Level 5.2 H 6.7 *H Chloride Level 98 97 Carbon Dioxide Level 27 27 Anion Gap 14 H 14 H Blood Urea Nitrogen 48 H 61 H Creatinine 6.87 H 7.90 H Est Glomerular Filtrat Rate mL/min 7 L 6 L Glucose Level 109 87 Calcium Level 8.6 8.5 White Blood Count 8.5 Red Blood Count 3.35 L Hemoglobin 10.5 L Hematocrit 34.0 L Mean Corpuscular Volume 101.5 H Mean Corpuscular Hemoglobin 31.3 Mean Corpuscular Hemoglobin Concent 30.9 L Red Cell Distribution Width 17.2 H Platelet Count 174 Mean Platelet Volume 11.4 H Immature Granulocytes % 0.200 Neutrophils % 62.7 Lymphocytes % 24.6 Monocytes % 8.1 Eosinophils % 3.3 Basophils % 1.1 Nucleated Red Blood Cells % 0.0 Immature Granulocytes # 0.020 Neutrophils # 5.3 Lymphocytes # 2.1 Monocytes # 0.7 Eosinophils # 0.3 Basophils # 0.1 Nucleated Red Blood Cells # 0.0 Medications Medications Current Medications Albumin Human 100 ml @ 100 mls/hr WITH DIALYSIS PRN IV SBP <90 DURING DIALYSIS Last administered on 10/24/18at 21:00; Admin Dose 100 MLS/HR; Start 10/24/18 at 18:00 Sodium Chloride 250 ml @ 250 mls/hr Q1H PRN IV tachycardia Last administered on 11/10/18at 09:39; Admin Dose 250 MLS/HR; Start 10/25/18 at 01:00 Acetaminophen (Tylenol Tab) 650 mg Q4 PRN PO FEVER Last administered on 11/08/18at 18:01; Admin Dose 650 MG; Start 10/25/18 at 01:00 Sevelamer Carbonate (Renvela) 800 mg WITH MEALS PO Last administered on 11/11/18 09:46; Admin Dose 800 MG; Start 10/25/18 at 07:35 Midodrine (Proamatine) 5 mg TID@09,13,17 PO Last administered on 11/11/18 09:46; Admin Dose 5 MG; Start 10/26/18 at 09:00 Lidocaine (Xylocaine 1% (Mdv) 20 ml) 1 ml WITH DIALYSIS PRN INJ PRIOR TO CANULLATION/HD; Start 10/26/18 at 12:30 Ondansetron HCl (Zofran Inj) 4 mg Q4H PRN IV NAUSEA AND/OR VOMITING Last administered on 11/10/18 20:10; Admin Dose 4 MG; Start 10/26/18 at 15:30 Epoetin Maxwell-epbx (Retacrit (Esrd)) 10,000 unit MoWeFr@1700 SC Last administered on 11/09/18 18:55; Admin Dose 10,000 UNIT; Start 10/28/18 at 17:00 Oxacillin Sodium 2 gm/Sodium Chloride 50 ml @ 100 mls/hr Q6 IVPB Last administered on 11/11/18 05:46; Admin Dose 100 MLS/HR; Start 10/30/18 at 18:00 Mupirocin (Bactroban) 1 applic BID TOP Last administered on 11/11/18 09:00; Admin Dose 1 APPLIC; Start 11/02/18 at 13:30 Heparin Sodium (Porcine) (Heparin (1000 Units/ml)) 6,100 unit AFTER DIALYSIS PRN CATHETER DIALYSIS Last administered on 11/09/18 11:48; Admin Dose 6,100 UNI T; Start 11/07/18 at 14:00 Morphine Sulfate (morphine) 3 mg Q4H PRN IV SEVERE PAIN LEVEL 7-10 Last administered on 11/11/18 10:09; Admin Dose 3 MG; Start 11/08/18 at 19:30 Diphenhydramine HCl (Benadryl) 25 mg Q4H PRN IV ALLERGIC REACTION Last administered on 11/11/18 10:10; Admin Dose 25 MG; Start 11/09/18 at 09:00 Metoprolol Tartrate (Lopressor) 5 mg Q4H PRN IV HR>110 Hold SBP<100; Start at 14:30 HENRIQUE GARCIA Nov 11, 2018 12:16
[2018-11-11] MEDS: HEPARIN 1000 UNITS/ML 10 ML INJ CATHETER PRN (13:13)
--- NOTE | 2018-11-11 17:14 | RADRPT ---
PROCEDURE: PLACEMENT LEFT COMMON FEMORAL VEIN TUNNELED DIALYSIS CATHETER. CLINICAL INDICATION: Renal failure. TECHNIQUE: Prior to the procedure, 1 gram of Ancef was administered intravenously for prophylaxis. Informed consent was obtained. Risks including bleeding and infection were explained to the patient. The patient understood and was willing to proceed. A procedural pause was performed. The patient's na me, date of , and procedure to be performed were verified. The central line was inserted with al l elements of maximal sterile barrier technique. All of the following were used: head covering, facia l mask, sterile gown, sterile gloves, a large sterile sheet, hand hygiene, and 2% chlorhexidine for cutaneous antisepsis. The left groin and left lower quadrant of abdomen was prepped and draped in [facility] sterile fashion. Following the local injection of Xylocaine, the left common femoral vein was punctured under sonograp hic guidance with a 20-gauge needle through which a 0.018 inch floppy tip guidewire was advanced into the inferior vena cava. The tract was dilated to 5 Anguillan and the wire was then replaced with a 0.03 5 in Amplatz guidewire. A tunnel was then created from the anterior left thigh to the puncture site in the left inguinal region and the dialysis catheter was pulled through the tract. Serial dilatatio n was then performed and a 16 Anguillan peel away sheath was introduced. The 14.5 Anguillan Palindrome dialysis catheter was advanced through the 16 Anguillan peel-away sheath. The tip of the catheter was confirmed in position within the inferior vena cava. The peel-away sheath wa s removed. The 2 ports were each flushed with 2.3 ml of 1:1000 heparin. The catheter was secured to the skin wi th 2-0 silk. The wound in the inguinal region was closed with 4-0 Vicryl suture using subcuticular r unning technique. The site was dressed. The patient tolerated the procedure well. Specimens: None. Blood loss: 5 ml. Complications: None. Lehr Tender: None. Anesthesia: Local and moderate sedation. Graft/Implant: Left common femoral vein tunneled dialysis catheter. COMPARISON: None. FINDINGS: Ultrasound images were recorded and stored in the patient's medical record. Final radiographic images demonstrate the tip of the catheter in the inferior vena cava. A total of 0.4 minutes of fluoroscopy time was used. The ultrasound images demonstrate the needle entering the left femoral vein. 4 images of the abdomen and chest were obtained with image intensifier. IMPRESSION: 1. Satisfactory placement of tunneled left femoral dialysis catheter. PROCEDURE: Right femoral vein tunneled hemodialysis catheter removal. CLINICAL INDICATION: Right femoral vein tunneled dialysis catheter no longer required. TECHNIQUE: INTRAPROCEDURE MEDICATIONS: 1% lidocaine subcutaneous. The procedure, risks, benefits, complications and alternatives were explained to the patient. Consent was obtained. A procedural pause was performed prior to the procedure. The patient's name, date of b ir, and procedure to be performed were verified. The right anterior chest wall was prepped and draped. One percent lidocaine was used as local anesthe zhuair at the site of the dialysis catheter. Fluoroscopic guidance was used. The catheter was then joseph shawn. Pressure was applied to the region of the internal jugular vein and the chest wall at the site o f the catheter until adequate hemostasis was obtained. A dressing was applied. 4.3 minutes of fluor oscopy time was used. Several images of the pelvis were obtained with image intensifier. Specimens: None. Blood loss: 5 ml. Complications: None. Lehr Tender: None. Anesthesia: Local and moderate sedation. Graft/Implant: None. COMPARISON: None. FINDINGS: Successful removal of tunneled dialysis catheter. Preoperative image demonstrates the tunneled dialys is catheter in position. Postoperative image demonstrates successful removal of the dialysis cathete r. IMPRESSION: 1. Successful removal of right femoral vein tunneled dialysis catheter. RPTAT: QQ Physician Lia Date Time Electronically viewed and signed by Physician Lia on 11/11/2018 17:14 RD/
--- NOTE | 2018-11-11 17:57 | CONS ---
Assessment/Plan Assessment/Plan Hospital Course (Demo Recall) # sepsis, heme/onc - s/p sepsis due to bacteremia, recurrent. Resolved - s/p persistent and recurrent bacteremia on 10/24, 10/25, and 10/26 due to MSSA; repeat blood cultures on 10/28 & 11/02 were negative; transthoracic echo did not mention vegetation; AMANDA showed no vegetation - the source of her bacteremia was her HD catheter. No other focus of infection was found: WBC tagged scan on 11/05/2018 showed several non-specific foci of increased activity along R anterior chest wall;however, chest CT on 11/07/2018 showed no fluid collection identified within the chest wall. 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 Per Pt, she had pruritus, "bumps" and green discharge from the catheter site. Its culture on 10/31/2018 grew S. aureus. It was removed on 11/04/2018 - s/p placement of an HD catheter on R groin on 11/07/2018-->removed on 11/10/18 - s/p placement of an HD catheter on L groin on 11/10/2018 - soft tissue CHRISTEL of b/l groin on 11/10/2018 did not show hematoma or active signs of bleeding or abscess - h/o removal of permacath on R chest wall on 07/14/2018 - h/o R femoral HD justin catheter placement 07/14/2018, replaced by HD permacath 07/19/2018 - h/o pain/increased sensitivity of R groin after replacement of the Perez with permacath. soft tissue CHRISTEL on 07/20/2018 showed no abnormality at the site of the palpable lesion adjacent to R inguinal region HD catheter - h/o swelling on the scalp and chest wall, possibly due to collateral veins as a result of thrombosis of AVF - h/o removal and placement of a new Perez catheter in 05/2018. The culture of the tip of the removed catheter, blood cultures and swab of the catheter site were negative. Pt completed an empiric course of renally dosed pip/tazo (06/13/2018-06/18/2018) - h/o placement of a permacath on R chest wall on 06/23/2018 - h/o creation of AVF in [facility] in 2016 - thrombosed L brachiocephalic AV fistula, 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 Last used for HD in 04/2018. Was scheduled to get a new graft in [facility] as outpatient - h/o 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 Pt took renally dosed valACV (07/15/2018-07/17/2018) - adverse reaction to vancomycin (pruritus) - adverse reaction to linezolid (thrombocytopenia). Linezolid was discontinued (06/12/2018-06/17/2018) - ?adverse reaction to cefazolin (severe abd pain/cramping, although pt tolerated a 14 day course of cefazolin in 06/2018) - painful nodule on L thumb; X-ray shows possible subcutaneous mass adjacent to the radial aspect of the first metacarpal. Recommendations: - continue renally dosed oxacillin 2gm IV q6 hours (10/30/2018-) for 2 weeks after removal of her HD catheter, i.e. 11/04/18-11/18/18. management d/w Pt, her RN Consultation Date/Type/Reason Admit Date/Time Oct 25, 2018 at 04:13 Initial Consult Date 10/25/18 Type of Consult ID Requesting Provider: LUANNE WALTER MD Date/Time of Note DATE: 11/11/18 TIME: 17:53 24 HR Interval Summary Constitutional: improved Detailed Summary Eyes: no complaints ENT: no complaints Respiratory: no complaints Cardiovascular: no complaints Gastrointestinal: no complaints Genitourinary: other (on HD) Musculoskeletal: swelling (b/l groin) Skin: other (no bleeding froom catheter ite) Neurologic: no complaints Exam/Review of Systems Exam Vitals Vital Signs Date Temp Pulse Resp B/P (MAP) Pulse Ox O2 O2 Flow FiO2 Time Delivery Rate 11/11/18 102 115/56 16:37 (75) 11/11/18 98.1 20 94 Room Air 15:32 Intake and Output 11/10/18 11/10/18 11/11/18 1515:00 23:00 07:00 IntakeIntake Total 530 ml 650 ml BalanceBalance 530 ml 650 ml Constitutional: frail Psych: no complaints, nl mood/affect Head: normocephalic, other (alopecia) Eyes: nl conjunctiva, nl lids, nl sclera ENMT: nl external ears & nose, nl nasal mucosa & septum, mucosa pink and moist Neck: supple Respiratory: clear to auscultation, normal air movement Cardiovascular: regular rate and rhythm, nl pulses; No edema Gastrointestinal: soft, non-tender; No distended, No tender Genitourinary - Female: other (R groin: less swollen, not warm and non-TTP, L groin: still swollen, not warm and TTP (sensitive at HD catheter site)) Musculoskeletal: nl extremities to inspection Extremities: No edema 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: 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 intact, nl mental status Skin: rash or lesions (many scabs and dry ulcers after changing HD catheter sites in the groin and chest wall) Results Result Diagram: 11/11/18 0532 11/11/18 0532 Results 24hrs Laboratory Tests Test 11/11/18 05:32 White Blood Count 8.5 Red Blood Count 3.35 L Hemoglobin 10.5 L Hematocrit 34.0 L Mean Corpuscular Volume 101.5 H Mean Corpuscular Hemoglobin 31.3 Mean Corpuscular Hemoglobin Concent 30.9 L Red Cell Distribution Width 17.2 H Platelet Count 174 Mean Platelet Volume 11.4 H Immature Granulocytes % 0.200 Neutrophils % 62.7 Lymphocytes % 24.6 Monocytes % 8.1 Eosinophils % 3.3 Basophils % 1.1 Nucleated Red Blood Cells % 0.0 Immature Granulocytes # 0.020 Neutrophils # 5.3 Lymphocytes # 2.1 Monocytes # 0.7 Eosinophils # 0.3 Basophils # 0.1 Nucleated Red Blood Cells # 0.0 Sodium Level 138 Potassium Level 6.7 *H Chloride Level 97 Carbon Dioxide Level 27 Anion Gap 14 H Blood Urea Nitrogen 61 H Creatinine 7.90 H Est Glomerular Filtrat Rate mL/min 6 L Glucose Level 87 Calcium Level 8.5 Medications Medication Current Medications Albumin Human 100 ml @ 100 mls/hr WITH DIALYSIS PRN IV SBP <90 DURING DIALYSIS Last administered on 10/24/18 21:00; Admin Dose 100 MLS/HR; Start 10/24/18 at 18:00 Sodium Chloride 250 ml @ 250 mls/hr Q1H PRN IV tachycardia Last administered on 11/10/18at 09:39; Admin Dose 250 MLS/HR; Start 10/25/18 at 01:00 Acetaminophen (Tylenol Tab) 650 mg Q4 PRN PO FEVER Last administered on 11/08/18 at 18:01; Admin Dose 650 MG; Start 10/25/18 at 01:00 Sevelamer Carbonate (Renvela) 800 mg WITH MEALS PO Last administered on 11/11/18 12:13; Admin Dose 800 MG; Start 10/25/18 at 07:35 Midodrine (Proamatine) 5 mg TID@09,13,17 PO Last administered on 11/11/18 13:14; Admin Dose 5 MG; Start 10/26/18 at 09:00 Lidocaine (Xylocaine 1% (Mdv) 20 ml) 1 ml WITH DIALYSIS PRN INJ PRIOR TO CANULLATION/HD; Start 10/26/18 at 12:30 Ondansetron HCl (Zofran Inj) 4 mg Q4H PRN IV NAUSEA AND/OR VOMITING Last admini stered on 11/10/18at 20:10; Admin Dose 4 MG; Start 10/26/18 at 15:30 Epoetin Maxwell-epbx (Retacrit (Esrd)) 10,000 unit MoWeFr@1700 SC Last administered on 11/09/18at 18:55; Admin Dose 10,000 UNIT; Start 10/28/18 at 17:00 Oxacillin Sodium 2 gm/Sodium Chloride 50 ml @ 100 mls/hr Q6 IVPB Last administered on 11/11/18 12:00; Admin Dose 100 MLS/HR; Start 10/30/18 at 18:00 Mupirocin (Bactroban) 1 applic BID TOP Last administered on 11/11/18 09:00; Admin Dose 1 APPLIC; Start 11/02/18 at 13:30 Heparin Sodium (Porcine) (Heparin (1000 Units/ml)) 6,100 unit AFTER DIALYSIS PRN CATHETER DIALYSIS Last administered on 11/11/18 13:13; Admin Dose 6,100 UNIT; Start 11/07/18 at 14:00 Morphine Sulfate (morphine) 3 mg Q4H PRN IV SEVERE PAIN LEVEL 7-10 Last administered on 11/11/18 14:14; Admin Dose 3 MG; Start 11/08/18 at 19:30 Diphenhydramine HCl (Benadryl) 25 mg Q4H PRN IV ALLERGIC REACTION Last admini stered on 11/11/18 14:14; Admin Dose 25 MG; Start 11/09/18 at 09:00 Metoprolol Tartrate (Lopressor) 5 mg Q4H PRN IV HR>110 Hold SBP<100; Start 11/09/18 at 14:30 GINGER HARDIN M.D. Nov 11, 2018 17:57
[2018-11-11] MEDS: EPOETIN ALFA-EPBX (ESRD) 10,000 UNIT/ML VIAL SC SCH (18:38)
[2018-11-12] VITALS (20 sets, daily range): BP systolic 81–126; BP diastolic 53–94; PULSE 75–135; RESP 16–18
[2018-11-12] MEDS: OXACILLIN 2 GM in SOD CHLORIDE 0.9% 50 ML IVPB SCH ×4 (00:28→17:16)
[2018-11-12] MEDS: morphine 4 MG/ML VIAL IV PRN ×5 (05:47→22:59)
[2018-11-12] MEDS: DIPHENHYDRAMINE 50 MG INJ IV PRN ×5 (05:48→22:59)
[2018-11-12] MEDS: MIDODRINE 5 MG TAB PO SCH ×3 (08:13→17:15)
[2018-11-12] MEDS: SEVELAMER CARBONATE 800 MG TABLET PO SCH ×3 (08:13→17:15)
[2018-11-12] MEDS: MUPIROCIN 2% 22 GM OINT TOP SCH ×2 (08:16→20:54)
--- NOTE | 2018-11-12 08:44 | CONS ---
Assessment/Plan Assessment/Plan Assessment/Plan (Daily) 1. Septic shock s/p Levophed 2. ESRD on HD MWF schedule , left femoral permacath for HD access 3. Bacteremia with Blood cx growing staph aureus -s/p removal of left permacath on 11/04/18- pt remained line free for 3 days then reinsertion of Right groin permacath on 11/07/18 4. H/o Leukemia currently on chemotherapy, last chem on 10/21/18 5. H/o Primary hyperparathyroidism, status post complete parathyroidectomy and partial left thyroid lobectomy 2 years ago. 6. H/o Anemia of ESRD 7, Difficult vascular Access Plan: s/p Removal of Right groin permacath,due to pericatheter hematoma, now s/p left groin permacath placement, plan for Extra Hd today pt will be on MWF schedule - next Hd will be on Wednesday staph aureus bacteremia - IV abx oxacillin 2 gram IV Q 6 hr - ID following Continue other home medications, Midodrine 5 mg PO TID for BP support - will follow up Consultation Date/Type/Reason Admit Date/Time Oct 25, 2018 at 04:13 Initial Consult Date Type of Consult NEPHROLOGY Requesting Provider: LUANNE WALTER MD Date/Time of Note DATE: 11/12/18 TIME: 08:44 Exam/Review of Systems Exam Vitals Vital Signs Date Temp Pulse Resp B/P (MAP) Pulse Ox O2 O2 Flow FiO2 Time Delivery Rate 11/12/18 98.0 84 18 98/62 (74) 96 Room Air 07:21 Intake and Output 11/11/18 11/11/18 11/12/18 1414:59 22:59 06:59 IntakeIntake Total 760 ml OutputOutput Total 3400 ml 3000 ml BalanceBalance -3400 ml -2240 ml Results Result Diagram: 11/12/18 0532 11/12/18 0532 Results 24hrs Laboratory Tests Test 11/12/18 05:32 White Blood Count 8.1 Red Blood Count 3.70 L Hemoglobin 11.6 L Hematocrit 38.2 Mean Corpuscular Volume 103.2 H Mean Corpuscular Hemoglobin 31.4 Mean Corpuscular Hemoglobin Concent 30.4 L Red Cell Distribution Width 17.6 H Platelet Count 209 # Mean Platelet Volume 11.5 H Immature Granulocytes % 0.400 Neutrophils % 61.9 Lymphocytes % 23.2 Monocytes % 8.8 Eosinophils % 4.7 Basophils % 1.0 Nucleated Red Blood Cells % 0.0 Immature Granulocytes # 0.030 Neutrophils # 5.0 Lymphocytes # 1.9 Monocytes # 0.7 Eosinophils # 0.4 Basophils # 0.1 Nucleated Red Blood Cells # 0.0 Sodium Level 138 Potassium Level 6.9 *H Chloride Level 98 Carbon Dioxide Level 24 Anion Gap 16 H Blood Urea Nitrogen 54 H Creatinine 6.56 H Est Glomerular Filtrat Rate mL/min 7 L Glucose Level 70 Calcium Level 8.9 Medications Medication Current Medications Albumin Human 100 ml @ 100 mls/hr WITH DIALYSIS PRN IV SBP <90 DURING DIALYSIS Last administered on 10/24/18 21:00; Admin Dose 100 MLS/HR; Start 10/24/18 at 18:00 Sodium Chloride 250 ml @ 250 mls/hr Q1H PRN IV tachycardia Last administered on 11/10/18 09:39; Admin Dose 250 MLS/HR; Start 10/25/18 at 01:00 Acetaminophen (Tylenol Tab) 650 mg Q4 PRN PO FEVER Last administered on 11/08/18 18:01; Admin Dose 650 MG; Start 10/25/18 at 01:00 Sevelamer Carbonate (Renvela) 800 mg WITH MEALS PO Last administered on 11/12/18 08:13; Admin Dose 800 MG; Start 10/25/18 at 07:35 Midodrine (Proamatine) 5 mg TID@09,13,17 PO Last administered on 11/12/18 08:13; Admin Dose 5 MG; Start 10/26/18 at 09:00 Lidocaine (Xylocaine 1% (Mdv) 20 ml) 1 ml WITH DIALYSIS PRN INJ PRIOR TO MARK ANTHONY LATION/HD; Start 10/26/18 at 12:30 Ondansetron HCl (Zofran Inj) 4 mg Q4H PRN IV NAUSEA AND/OR VOMITING Last administered on 11/10/18 20:10; Admin Dose 4 MG; Start 10/26/18 at 15:30 Epoetin Maxwell-epbx (Retacrit (Esrd)) 10,000 unit MoWeFr@1700 SC Last administered on 11/11/18 18:38; Admin Dose 10,000 UNIT; Start 10/28/18 at 17:00 Oxacillin Sodium 2 gm/Sodium Chloride 50 ml @ 100 mls/hr Q6 IVPB Last administered on 11/12/18 05:48; Admin Dose 100 MLS/HR; Start 10/30/18 at 18:00 Mupirocin (Bactroban) 1 applic BID TOP Last administered on 11/12/18 08:16; Admin Dose 1 APPLIC; Start 11/02/18 at 13:30 Heparin Sodium (Porcine) (Heparin (1000 Units/ml)) 6,100 unit AFTER DIALYSIS PRN CATHETER DIALYSIS Last administered on 11/11/18 13:13; Admin Dose 6,100 UNIT; Start 11/07/18 at 14:00 Morphine Sulfate (morphine) 3 mg Q4H PRN IV SEVERE PAIN LEVEL 7-10 Last administered on 11/12/18at 05:47; Admin Dose 3 MG; Start 11/08/18 at 19:30 Diphenhydramine HCl (Benadryl) 25 mg Q4H PRN IV ALLERGIC REACTION Last administered on 11/12/18 05:48; Admin Dose 25 MG; Start 11/09/18 at 09:00 Metoprolol Tartrate (Lopressor) 5 mg Q4H PRN IV HR>110 Hold SBP<100; Start 11/09/18 at 14:30 HENRIQUE GRANADO MD Nov 12, 2018 08:44
[2018-11-12] MEDS ORDERED: NA POLYST SULFON 15 GM/60 ML BTL PO SCH (10:30)
--- NOTE | 2018-11-12 11:13 | CONS ---
Assessment/Plan Assessment/Plan Hospital Course (Demo Recall) # sepsis, heme/onc - s/p sepsis due to bacteremia, recurrent. Resolved - s/p persistent and recurrent bacteremia on 10/24, 10/25, and 10/26 due to MSSA; repeat blood cultures on 10/28 & 11/02 were negative; transthoracic echo did not mention vegetation; AMANDA showed no vegetation - the source of her bacteremia was her HD catheter. No other focus of infection was found: WBC tagged scan on 11/05/2018 showed several non-specific foci of increased activity along R anterior chest wall;however, chest CT on 11/07/2018 showed no fluid collection identified within the chest wall. 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 Per Pt, she had pruritus, "bumps" and green discharge from the catheter site. Its culture on 10/31/2018 grew S. aureus. It was removed on 11/04/2018 - s/p placement of an HD catheter on R groin on 11/07/2018-->removed on 11/10/18 - s/p placement of an HD catheter on L groin on 11/10/2018 - soft tissue CHRISTEL of b/l groin on 11/10/2018 did not show hematoma or active signs of bleeding or abscess - h/o removal of permacath on R chest wall on 07/14/2018 - h/o R femoral HD perez catheter placement 07/14/2018, replaced by HD permacath 07/19/2018 - h/o pain/increased sensitivity of R groin after replacement of the Perez with permacath. soft tissue CHRISTEL on 07/20/2018 showed no abnormality at the site of the palpable lesion adjacent to R inguinal region HD catheter - h/o swelling on the scalp and chest wall, possibly due to collateral veins as a result of thrombosis of AVF - h/o removal and placement of a new Perez catheter in 05/2018. The culture of the tip of the removed catheter, blood cultures and swab of the catheter site were negative. Pt completed an empiric course of renally dosed pip/tazo (06/13/2018-06/18/2018) - h/o placement of a permacath on R chest wall on 06/23/2018 - h/o creation of AVF in [facility] in 2016 - thrombosed L brachiocephalic AV fistula, 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 Last used for HD in 04/2018. Was scheduled to get a new graft in [facility] as outpatient - h/o 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 Pt took renally dosed valACV (07/15/2018-07/17/2018) - adverse reaction to vancomycin (pruritus) - adverse reaction to linezolid (thrombocytopenia). Linezolid was discontinued (06/12/2018-06/17/2018) - ?adverse reaction to cefazolin (severe abd pain/cramping, although pt tolerated a 14 day course of cefazolin in 06/2018) - painful nodule on L thumb; X-ray shows possible subcutaneous mass adjacent to the radial aspect of the first metacarpal. Recommendations: - continue renally dosed oxacillin 2gm IV q6 hours (10/30/2018-) for 2 weeks after removal of her HD catheter, i.e. 11/04/18-11/18/18. Management d/w patient, YOKASTA Mortensen, and with Dr. Herrera Consultation Date/Type/Reason Admit Date/Time Oct 25, 2018 at 04:13 Initial Consult Date 10/25/18 Type of Consult Infectious Disease Requesting Provider: LUANNE WALTER MD Date/Time of Note DATE: 11/12/18 TIME: 11:13 24 HR Interval Summary Free Text/Dictation Pt states Benadryl 25 mg is ineffective and requesting "50 (mg) is better". States has "too much pain" in the low back after laying for 3 hours during HD. Currently "pain is not too much" rating 2/10. Has mild discomfort r/t HD catheter that increases with ambulation. Had severe nausea yesterday but none today. No vomiting or diarrhea. Exam/Review of Systems Exam Vitals Vital Signs Date Temp Pulse Resp B/P (MAP) Pulse Ox O2 O2 Flow FiO2 Time Delivery Rate 11/12/18 98.0 118 18 115/85 96 Room Air 11:04 (95) Intake and Output 11/11/18 11/11/18 11/12/18 1515:00 23:00 07:00 IntakeIntake Total 760 ml OutputOutput Total 3400 ml 3000 ml BalanceBalance -3400 ml -2240 ml Constitutional: alert, oriented, well developed, frail Psych: no complaints, nl mood/affect Head: normocephalic, other (alopecia) Eyes: nl conjunctiva, nl lids, nl sclera ENMT: nl external ears & nose, nl lips & teeth, nl nasal mucosa & septum, mucosa pink and moist Neck: supple Respiratory: clear to auscultation, normal air movement Cardiovascular: nl pulses, other (regular rhythm, tachycardic); No edema Gastrointestinal: soft, non-tender; No distended Genitourinary - Female: other (L groin HD catheter in place with HD in progress; R groin old HD catheter site is mildly swollen with mild TTP and ecchymosis noted) Musculoskeletal: nl extremities to inspection Extremities: normal pulses; No edema 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: 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, nl mental status, nl speech Skin: nl turgor, rash or lesions (few lesion on her face r/t scratching; few scabs and dry ulcers after changing HD catheter sites in the groin and chest wall), other (few tattoos) Results Result Diagram: 11/12/18 0532 11/12/18 0532 Results 24hrs Laboratory Tests Test 11/12/18 05:32 White Blood Count 8.1 Red Blood Count 3.70 L Hemoglobin 11.6 L Hematocrit 38.2 Mean Corpuscular Volume 103.2 H Mean Corpuscular Hemoglobin 31.4 Mean Corpuscular Hemoglobin Concent 30.4 L Red Cell Distribution Width 17.6 H Platelet Count 209 # Mean Platelet Volume 11.5 H Immature Granulocytes % 0.400 Neutrophils % 61.9 Lymphocytes % 23.2 Monocytes % 8.8 Eosinophils % 4.7 Basophils % 1.0 Nucleated Red Blood Cells % 0.0 Immature Granulocytes # 0.030 Neutrophils # 5.0 Lymphocytes # 1.9 Monocytes # 0.7 Eosinophils # 0.4 Basophils # 0.1 Nucleated Red Blood Cells # 0.0 Sodium Level 138 Potassium Level 6.9 *H Chloride Level 98 Carbon Dioxide Level 24 Anion Gap 16 H Blood Urea Nitrogen 54 H Creatinine 6.56 H Est Glomerular Filtrat Rate mL/min 7 L Glucose Level 70 Calcium Level 8.9 Medications Medication Current Medications Albumin Human 100 ml @ 100 mls/hr WITH DIALYSIS PRN IV SBP <90 DURING DIALYSIS Last administered on 10/24/18at 21:00; Admin Dose 100 MLS/HR; Start 10/24/18 at 18:00 Sodium Chloride 250 ml @ 250 mls/hr Q1H PRN IV tachycardia Last administered on 11/10/18at 09:39; Admin Dose 250 MLS/HR; Start 10/25/18 at 01:00 Acetaminophen (Tylenol Tab) 650 mg Q4 PRN PO FEVER Last administered on 11/08/18 18:01; Admin Dose 650 MG; Start 10/25/18 at 01:00 Sevelamer Carbonate (Renvela) 800 mg WITH MEALS PO Last administered on 11/12/18at 08:13; Admin Dose 800 MG; Start 10/25/18 at 07:35 Midodrine (Proamatine) 5 mg TID@09,13,17 PO Last administered on 11/12/18at 08:13; Admin Dose 5 MG; Start 10/26/18 at 09:00 Lidocaine (Xylocaine 1% (Mdv) 20 ml) 1 ml WITH DIALYSIS PRN INJ PRIOR TO CANULLATION/HD; Start 10/26/18 at 12:30 Ondansetron HCl (Zofran Inj) 4 mg Q4H PRN IV NAUSEA AND/OR VOMITING Last administered on 11/10/18at 20:10; Admin Dose 4 MG; Start 10/26/18 at 15:30 Epoetin Maxwell-epbx (Retacrit (Esrd)) 10,000 unit MoWeFr@1700 SC Last administer ed on 11/11/18 18:38; Admin Dose 10,000 UNIT; Start 10/28/18 at 17:00 Oxacillin Sodium 2 gm/Sodium Chloride 50 ml @ 100 mls/hr Q6 IVPB Last administered on 11/12/18 05:48; Admin Dose 100 MLS/HR; Start 10/30/18 at 18:00 Mupirocin (Bactroban) 1 applic BID TOP Last administered on 11/12/18 08:16; A dmin Dose 1 APPLIC; Start 11/02/18 at 13:30 Heparin Sodium (Porcine) (Heparin (1000 Units/ml)) 6,100 unit AFTER DIALYSIS PRN CATHETER DIALYSIS Last administered on 11/11/18 13:13; Admin Dose 6,100 U NIT; Start 11/07/18 at 14:00 Morphine Sulfate (morphine) 3 mg Q4H PRN IV SEVERE PAIN LEVEL 7-10 Last administered on 11/12/18 09:43; Admin Dose 3 MG; Start 11/08/18 at 19:30 Diphenhydramine HCl (Benadryl) 25 mg Q4H PRN IV ALLERGIC REACTION Last administered on 11/12/18 09:43; Admin Dose 25 MG; Start 11/09/18 at 09:00 Metoprolol Tartrate (Lopressor) 5 mg Q4H PRN IV HR>110 Hold SBP<100; Start 11/09/18 at 14:30 Sodium Polystyrene Sulfonate (Kayexalate) 15 gm ONCE PO Last administered on 11/12/18at 10:40; Admin Dose 15 GM; Start 11/12/18 at 10:30; Stop 11/12/18 at 16:00 EDIE BUENO NP Nov 12, 2018 11:13
--- NOTE | 2018-11-12 12:31 | PN ---
Date/Time of Note Date/Time of Note DATE: 11/12/18 TIME: 12:26 Assessment/Plan VTE Prophylaxis Risk score (from [facility] [place]0 risk: 4 SCD applied (from [facility] [place]): Yes SCD contraindicated: other Pharmacological prophylaxis: other Pharm contraindication: other Lines/Catheters [facility]atheter Type (from [facility] Saline Lock Urinary Cath still in place: No Assessment/Plan Assessment/Plan -Hyperkalemia; k 6.9 today - per nephro - HD -Sepsis with DIMITRI bacteremia with fevers, leukocytosis, and hypotension. patient is currently continued on oxacillin 2 g every 6 hours Continue antibiotics per ID. - per ID consultation. - AMANDA is negative for vegetation. - Dr. Barrera is following in cardiology consultation. -Hemodialysis dependent end-stage renal disease, continue dialysis per nephrology. Dr. Beltran is following in nephrology consultation. -Leukemia, patient is undergoing chemotherapy last chemo was on Wednesday10/11/18. -Anemia multifactorial chronic disease and recent chemo, status post blood transfusion, continue to monitor H&H, continue Epogen. -Mineral bone disease with renal osteodystrophy. No acute fractures, traumatic subluxations, osteomyelitis or diskitis per MRI of the lumbar spine. -Primary hyperparathyroidism, status post complete parathyroidectomy and partial left thyroid lobectomy 2 years ago. -Left femoral hemodialysis catheter present on admission. Further recommendations based on clinical course. Plan of care discussed with Dr. Turner. Result Diagram: 11/12/18 0532 11/12/18 0532 Results 24hrs Laboratory Tests Test 11/12/18 05:32 White Blood Count 8.1 Red Blood Count 3.70 L Hemoglobin 11.6 L Hematocrit 38.2 Mean Corpuscular Volume 103.2 H Mean Corpuscular Hemoglobin 31.4 Mean Corpuscular Hemoglobin Concent 30.4 L Red Cell Distribution Width 17.6 H Platelet Count 209 # Mean Platelet Volume 11.5 H Immature Granulocytes % 0.400 Neutrophils % 61.9 Lymphocytes % 23.2 Monocytes % 8.8 Eosinophils % 4.7 Basophils % 1.0 Nucleated Red Blood Cells % 0.0 Immature Granulocytes # 0.030 Neutrophils # 5.0 Lymphocytes # 1.9 Monocytes # 0.7 Eosinophils # 0.4 Basophils # 0.1 Nucleated Red Blood Cells # 0.0 Sodium Level 138 Potassium Level 6.9 *H Chloride Level 98 Carbon Dioxide Level 24 Anion Gap 16 H Blood Urea Nitrogen 54 H Creatinine 6.56 H Est Glomerular Filtrat Rate mL/min 7 L Glucose Level 70 Calcium Level 8.9 Subjective 24 Hr Interval Summary Free Text/Dictation K 6.9; Kayexalate given- pt said will take post dialysis as she will have BM right away. Having HD now no events overnight Eyes: no complaints ENT: no complaints Respiratory: no complaints Cardiovascular: no complaints Gastrointestinal: no complaints Genitourinary: no complaints Musculoskeletal: no complaints Skin: pruritis Neurologic: no complaints Endocrine: no complaints Lymphatic: no complaints Psychological: nl mood/affect Immunologic: no complaints Exam/Review of Systems Exam Vitals Vital Signs Date Temp Pulse Resp B/P (MAP) Pulse Ox O2 O2 Flow FiO2 Time Delivery Rate 11/12/18 100 11:55 11/12/18 98.0 18 115/85 96 Room Air 11:04 (95) Intake and Output 11/11/18 11/11/18 11/12/18 1515:00 23:00 07:00 IntakeIntake Total 760 ml OutputOutput Total 3400 ml 3000 ml BalanceBalance -3400 ml -2240 ml Constitutional: alert, well developed Psych: nl mood/affect Head: atraumatic Eyes: nl lids, nl sclera ENMT: nl external ears & nose Neck: non-tender Respiratory: clear to auscultation Cardiovascular: nl pulses, other (s1s2) Gastrointestinal: soft, non-tender Musculoskeletal: nl extremities to inspection Extremities: normal pulses 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: nl speech Lymph: nontender Results Results 24hrs Laboratory Tests Test 11/12/18 05:32 White Blood Count 8.1 Red Blood Count 3.70 L Hemoglobin 11.6 L Hematocrit 38.2 Mean Corpuscular Volume 103.2 H Mean Corpuscular Hemoglobin 31.4 Mean Corpuscular Hemoglobin Concent 30.4 L Red Cell Distribution Width 17.6 H Platelet Count 209 # Mean Platelet Volume 11.5 H Immature Granulocytes % 0.400 Neutrophils % 61.9 Lymphocytes % 23.2 Monocytes % 8.8 Eosinophils % 4.7 Basophils % 1.0 Nucleated Red Blood Cells % 0.0 Immature Granulocytes # 0.030 Neutrophils # 5.0 Lymphocytes # 1.9 Monocytes # 0.7 Eosinophils # 0.4 Basophils # 0.1 Nucleated Red Blood Cells # 0.0 Sodium Level 138 Potassium Level 6.9 *H Chloride Level 98 Carbon Dioxide Level 24 Anion Gap 16 H Blood Urea Nitrogen 54 H Creatinine 6.56 H Est Glomerular Filtrat Rate mL/min 7 L Glucose Level 70 Calcium Level 8.9 Medications Medication Current Medications Albumin Human 100 ml @ 100 mls/hr WITH DIALYSIS PRN IV SBP <90 DURING DIALYSIS Last administered on 10/24/18 21:00; Admin Dose 100 MLS/HR; Start 10/24/18 at 18:00 Sodium Chloride 250 ml @ 250 mls/hr Q1H PRN IV tachycardia Last administered on 11/10/18 09:39; Admin Dose 250 MLS/HR; Start 10/25/18 at 01:00 Acetaminophen (Tylenol Tab) 650 mg Q4 PRN PO FEVER Last administered on 11/08/18 18:01; Admin Dose 650 MG; Start 10/25/18 at 01:00 Sevelamer Carbonate (Renvela) 800 mg WITH MEALS PO Last administered on 11/12/18 08:13; Admin Dose 800 MG; Start 10/25/18 at 07:35 Midodrine (Proamatine) 5 mg TID@09,13,17 PO Last administered on 11/12/18 08:13; Admin Dose 5 MG; Start 10/26/18 at 09:00 Lidocaine (Xylocaine 1% (Mdv) 20 ml) 1 ml WITH DIALYSIS PRN INJ PRIOR TO CANULLATION/HD; Start 10/26/18 at 12:30 Ondansetron HCl (Zofran Inj) 4 mg Q4H PRN IV NAUSEA AND/OR VOMITING Last administered on 11/10/18at 20:10; Admin Dose 4 MG; Start 10/26/18 at 15:30 Epoetin Maxwell-epbx (Retacrit (Esrd)) 10,000 unit MoWeFr@1700 SC Last administer ed on 11/11/18 18:38; Admin Dose 10,000 UNIT; Start 10/28/18 at 17:00 Oxacillin Sodium 2 gm/Sodium Chloride 50 ml @ 100 mls/hr Q6 IVPB Last administered on 11/12/18at 05:48; Admin Dose 100 MLS/HR; Start 10/30/18 at 18:00 Mupirocin (Bactroban) 1 applic BID TOP Last administered on 11/12/18 08:16; A dmin Dose 1 APPLIC; Start 11/02/18 at 13:30 Heparin Sodium (Porcine) (Heparin (1000 Units/ml)) 6,100 unit AFTER DIALYSIS PRN CATHETER DIALYSIS Last administered on 11/11/18 13:13; Admin Dose 6,100 U NIT; Start 11/07/18 at 14:00 Morphine Sulfate (morphine) 3 mg Q4H PRN IV SEVERE PAIN LEVEL 7-10 Last administered on 11/12/18 09:43; Admin Dose 3 MG; Start 11/08/18 at 19:30 Diphenhydramine HCl (Benadryl) 25 mg Q4H PRN IV ALLERGIC REACTION Last administered on 11/12/18 09:43; Admin Dose 25 MG; Start 11/09/18 at 09:00 Metoprolol Tartrate (Lopressor) 5 mg Q4H PRN IV HR>110 Hold SBP<100 Last adm inistered on 11/12/18 11:52; Admin Dose 5 MG; Start 11/09/18 at 14:30 Sodium Polystyrene Sulfonate (Kayexalate) 15 gm ONCE PO Last administered on 11/12/18 10:40; Admin Dose 15 GM; Start 11/12/18 at 10:30; Stop 11/12/18 at 16:00 EDILMA CASIANO Nov 12, 2018 12:31
[2018-11-12] MEDS: HEPARIN 1000 UNITS/ML 10 ML INJ CATHETER PRN (12:57)
--- NOTE | 2018-11-12 12:59 | CONS ---
Consult Date/Type/Reason Admit Date/Time Oct 25, 2018 at 04:13 Initial Consult Date 10/25/18 Requesting Provider: LUANNE WALTER MD Date/Time of Note DATE: 11/12/18 TIME: 12:58 Subjective NO acute events - HD now - doing well. ROS: No fever, no chills, no nausea, no vomiting, no diarrhea/constipation No recent weight changes No chest pain, no PND, no orthopnea No dizziness, blurred vision No thirst, no heat or cold intolerance Objective Vitals Vital Signs Date Temp Pulse Resp B/P (MAP) Pulse Ox O2 O2 Flow FiO2 Time Delivery Rate 11/12/18 100 11:55 11/12/18 98.0 18 115/85 96 Room Air 11:04 (95) Intake and Output 11/11/18 11/11/18 11/12/18 1515:00 23:00 07:00 IntakeIntake Total 760 ml OutputOutput Total 3400 ml 3000 ml BalanceBalance -3400 ml -2240 ml Exam General: WN/WD/NAD, AOx 3 HEENT: Unicetric/atraumatic/EOMI (follow commands) NECK: JVD elevated, no thyromegaly Lymph: no lymphadenopathy HEART: regular with no S3, II/ systolic murmur at apex LUNGS: Coarse sounds ABD: soft, NT, ND, +BS : Intact Neuro: non focal SKIN: chronic changes EXT: trace edema Results/Medications Result Diagram: 11/12/18 0532 11/12/18 0532 Results 24 hrs Laboratory Tests Test 11/12/18 05:32 White Blood Count 8.1 Red Blood Count 3.70 L Hemoglobin 11.6 L Hematocrit 38.2 Mean Corpuscular Volume 103.2 H Mean Corpuscular Hemoglobin 31.4 Mean Corpuscular Hemoglobin Concent 30.4 L Red Cell Distribution Width 17.6 H Platelet Count 209 # Mean Platelet Volume 11.5 H Immature Granulocytes % 0.400 Neutrophils % 61.9 Lymphocytes % 23.2 Monocytes % 8.8 Eosinophils % 4.7 Basophils % 1.0 Nucleated Red Blood Cells % 0.0 Immature Granulocytes # 0.030 Neutrophils # 5.0 Lymphocytes # 1.9 Monocytes # 0.7 Eosinophils # 0.4 Basophils # 0.1 Nucleated Red Blood Cells # 0.0 Sodium Level 138 Potassium Level 6.9 *H Chloride Level 98 Carbon Dioxide Level 24 Anion Gap 16 H Blood Urea Nitrogen 54 H Creatinine 6.56 H Est Glomerular Filtrat Rate mL/min 7 L Glucose Level 70 Calcium Level 8.9 Home Meds Reported Medications Sevelamer Hcl* (Renagel*) 800 Mg Tablet, 800 MG PO WITH MEALS, TAB 05/14/18 Medications Current Medications Albumin Human 100 ml @ 100 mls/hr WITH DIALYSIS PRN IV SBP <90 DURING DIALYSIS Last administered on 10/24/18 21:00; Admin Dose 100 MLS/HR; Start 10/24/18 at 18:00 Sodium Chloride 250 ml @ 250 mls/hr Q1H PRN IV tachycardia Last administered on 11/10/18 09:39; Admin Dose 250 MLS/HR; Start 10/25/18 at 01:00 Acetaminophen (Tylenol Tab) 650 mg Q4 PRN PO FEVER Last administered on 11/08/18 18:01; Admin Dose 650 MG; Start 10/25/18 at 01:00 Sevelamer Carbonate (Renvela) 800 mg WITH MEALS PO Last administered on 11/12/18 12:54; Admin Dose 800 MG; Start 10/25/18 at 07:35 Midodrine (Proamatine) 5 mg TID@09,13,17 PO Last administered on 11/12/18 12:54; Admin Dose 5 MG; Start 10/26/18 at 09:00 Lidocaine (Xylocaine 1% (Mdv) 20 ml) 1 ml WITH DIALYSIS PRN INJ PRIOR TO CANULLATION/HD; Start 10/26/18 at 12:30 Ondansetron HCl (Zofran Inj) 4 mg Q4H PRN IV NAUSEA AND/OR VOMITING Last administered on 11/10/18 20:10; Admin Dose 4 MG; Start 10/26/18 at 15:30 Epoetin Maxwell-epbx (Retacrit (Esrd)) 10,000 unit MoWeFr@1700 SC Last administered on 11/11/18 18:38; Admin Dose 10,000 UNIT; Start 10/28/18 at 17:00 Oxacillin Sodium 2 gm/Sodium Chloride 50 ml @ 100 mls/hr Q6 IVPB Last administered on 11/12/18 12:55; Admin Dose 100 MLS/HR; Start 10/30/18 at 18:00 Mupirocin (Bactroban) 1 applic BID TOP Last administered on 11/12/18 08:16; Admin Dose 1 APPLIC; Start 11/02/18 at 13:30 Heparin Sodium (Porcine) (Heparin (1000 Units/ml)) 6,100 unit AFTER DIALYSIS PRN CATHETER DIALYSIS Last administered on 11/11/18at 13:13; Admin Dose 6,100 UNIT; Start 11/07/18 at 14:00 Morphine Sulfate (morphine) 3 mg Q4H PRN IV SEVERE PAIN LEVEL 7-10 Last administered on 11/12/18 09:43; Admin Dose 3 MG; Start 11/08/18 at 19:30 Diphenhydramine HCl (Benadryl) 25 mg Q4H PRN IV ALLERGIC REACTION Last administered on 11/12/18 09:43; Admin Dose 25 MG; Start 11/09/18 at 09:00 Metoprolol Tartrate (Lopressor) 5 mg Q4H PRN IV HR>110 Hold SBP<100 Last administered on 11/12/18at 11:52; Admin Dose 5 MG; Start 11/09/18 at 14:30 Sodium Polystyrene Sulfonate (Kayexalate) 15 gm ONCE PO Last administered on 11/12/18 10:40; Admin Dose 15 GM; Start 11/12/18 at 10:30; Stop 11/12/18 at 16:00 Assessment/Plan Hospital Course (Demo Recall) 1. Bacteremia, assess for endocarditis, intracardiac source of infection. s/p AMANDA 11/04 with no definite signs intracardiac infection - on therapy now 2. Abnormal electrocardiogram with lateral T-wave inversion- r/o mI. 3. Hypertension, mainly diastolic labile, currently improved - better with HD. 4. Leukemia - oncology follows. 5. Anemia - no bleeding now. 6. Initial hypotension. Initially with midodrine- somewhat labile but not requiring midodrine 7. Tachycardia-S tach now improved, started after HD yesterday. Still has with ambulation. ? relative volume depletion 8. ESRD on HD s/p new R femoral HD catheter - HD now. YUMIKO HO MD Nov 12, 2018 12:59
[2018-11-13] MEDS: OXACILLIN 2 GM in SOD CHLORIDE 0.9% 50 ML IVPB SCH ×5 (00:19→23:14)
[2018-11-13] MEDS: morphine 4 MG/ML VIAL IV PRN ×6 (01:57→21:57)
[2018-11-13] MEDS: DIPHENHYDRAMINE 50 MG INJ IV PRN ×6 (01:57→21:57)
[2018-11-13 03:30] VITALS: BP 97/76; PULSE 89; RESP 17
[2018-11-13 07:19] VITALS: BP 97/61; PULSE 98; RESP 16
[2018-11-13] MEDS: SEVELAMER CARBONATE 800 MG TABLET PO SCH ×3 (08:20→17:57)
[2018-11-13] MEDS: MIDODRINE 5 MG TAB PO SCH ×3 (08:20→17:57)
[2018-11-13] MEDS: MUPIROCIN 2% 22 GM OINT TOP SCH ×2 (08:21→21:57)
--- NOTE | 2018-11-13 10:38 | PN ---
Date/Time of Note Date/Time of Note DATE: 11/13/18 TIME: 10:32 Assessment/Plan VTE Pro[place]axis [place] [facility] [place]: 7 [place] [facility] [place] Yes SCD contraindicated: other Pharmacological prophylaxis: other Pharm contraindication: other Lines/Catheters [facility] Saline Lock Urinary Cath still in place: No Assessment/Plan Assessment/Plan -Hyperkalemia;-resolved -Sepsis with DIMITRI bacteremia with fevers, leukocytosis, and hypotension. patient is currently continued on oxacillin 2 g every 6 hours Continue antibiotics per ID. - per ID consultation. - AMANDA is negative for vegetation. - Dr. Barrera is following in cardiology consultation. -Hemodialysis dependent end-stage renal disease, continue dialysis per nephrology. Dr. Beltran is following in nephrology consultation. -Leukemia, patient is undergoing chemotherapy last chemo was on Wednesday10/11/18. -Anemia multifactorial chronic disease and recent chemo, status post blood transfusion, continue to monitor H&H, continue Epogen. -Mineral bone disease with renal osteodystrophy. No acute fractures, traumatic subluxations, osteomyelitis or diskitis per MRI of the lumbar spine. -Primary hyperparathyroidism, status post complete parathyroidectomy and partial left thyroid lobectomy 2 years ago. -Left femoral hemodialysis catheter present on admission. Further recommendations based on clinical course. Plan of care discussed with Dr. Turner. Result Diagram: 11/13/18 0540 11/13/18 0540 Results 24hrs Laboratory Tests Test 11/13/18 05:40 White Blood Count 8.6 Red Blood Count 3.84 L Hemoglobin 12.0 Hematocrit 39.0 Mean Corpuscular Volume 101.6 H Mean Corpuscular Hemoglobin 31.3 Mean Corpuscular Hemoglobin Concent 30.8 L Red Cell Distribution Width 17.6 H Platelet Count 214 Mean Platelet Volume 11.6 H Immature Granulocytes % 0.400 Neutrophils % 67.7 Lymphocytes % 19.1 Monocytes % 8.2 Eosinophils % 3.5 Basophils % 1.1 Nucleated Red Blood Cells % 0.0 Immature Granulocytes # 0.030 Neutrophils # 5.8 Lymphocytes # 1.6 Monocytes # 0.7 Eosinophils # 0.3 Basophils # 0.1 Nucleated Red Blood Cells # 0.0 Sodium Level 140 Potassium Level 4.9 # Chloride Level 95 L Carbon Dioxide Level 26 Anion Gap 19 H Blood Urea Nitrogen 50 H Creatinine 7.00 H Est Glomerular Filtrat Rate mL/min 7 L Glucose Level 98 Calcium Level 9.3 Subjective 24 Hr Interval Summary Free Text/Dictation c/o generalized weakness sp HD yesterday Eyes: no complaints ENT: no complaints Respiratory: no complaints Cardiovascular: no complaints Gastrointestinal: no complaints Genitourinary: no complaints Musculoskeletal: other (generelized weakness) Skin: no complaints Neurologic: no complaints, dizziness Psychological: nl mood/affect Immunologic: no complaints Exam/Review of Systems Exam Vitals Vital Signs Date Temp Pulse Resp B/P (MAP) Pulse Ox O2 O2 Flow FiO2 Time Delivery Rate 11/13/18 Nasal 2.0 07:39 Cannula 11/13/18 98.2 98 16 97/61 (73) 97 07:19 Intake and Output 11/12/18 11/12/18 11/13/18 1515:00 23:00 07:00 IntakeIntake Total 350 ml 450 ml 150 ml OutputOutput Total 2500 ml BalanceBalance -2150 ml 450 ml 150 ml Constitutional: alert, oriented, well developed Psych: nl mood/affect Head: normocephalic Eyes: nl lids, nl sclera ENMT: nl external ears & nose Neck: non-tender Respiratory: clear to auscultation Cardiovascular: nl pulses, other (s1s2) Gastrointestinal: soft, non-tender Musculoskeletal: nl extremities to inspection Extremities: normal pulses 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: nl mental status, nl speech Skin: nl turgor Lymph: nontender Results Results 24hrs Laboratory Tests Test 11/13/18 05:40 White Blood Count 8.6 Red Blood Count 3.84 L Hemoglobin 12.0 Hematocrit 39.0 Mean Corpuscular Volume 101.6 H Mean Corpuscular Hemoglobin 31.3 Mean Corpuscular Hemoglobin Concent 30.8 L Red Cell Distribution Width 17.6 H Platelet Count 214 Mean Platelet Volume 11.6 H Immature Granulocytes % 0.400 Neutrophils % 67.7 Lymphocytes % 19.1 Monocytes % 8.2 Eosinophils % 3.5 Basophils % 1.1 Nucleated Red Blood Cells % 0.0 Immature Granulocytes # 0.030 Neutrophils # 5.8 Lymphocytes # 1.6 Monocytes # 0.7 Eosinophils # 0.3 Basophils # 0.1 Nucleated Red Blood Cells # 0.0 Sodium Level 140 Potassium Level 4.9 # Chloride Level 95 L Carbon Dioxide Level 26 Anion Gap 19 H Blood Urea Nitrogen 50 H Creatinine 7.00 H Est Glomerular Filtrat Rate mL/min 7 L Glucose Level 98 Calcium Level 9.3 Medications Medication Current Medications Albumin Human 100 ml @ 100 mls/hr WITH DIALYSIS PRN IV SBP <90 DURING DIALYSIS Last administered on 10/24/18 21:00; Admin Dose 100 MLS/HR; Start 10/24/18 at 18:00 Sodium Chloride 250 ml @ 250 mls/hr Q1H PRN IV tachycardia Last administered on 11/10/18 09:39; Admin Dose 250 MLS/HR; Start 10/25/18 at 01:00 Acetaminophen (Tylenol Tab) 650 mg Q4 PRN PO FEVER Last administered on 11/08/18 18:01; Admin Dose 650 MG; Start 10/25/18 at 01:00 Sevelamer Carbonate (Renvela) 800 mg WITH MEALS PO Last administered on 11/13/18 08:20; Admin Dose 800 MG; Start 10/25/18 at 07:35 Midodrine (Proamatine) 5 mg TID@09,13,17 PO Last administered on 11/13/18 08:20; Admin Dose 5 MG; Start 10/26/18 at 09:00 Lidocaine (Xylocaine 1% (Mdv) 20 ml) 1 ml WITH DIALYSIS PRN INJ PRIOR TO CANULLATION/HD; Start 10/26/18 at 12:30 Ondansetron HCl (Zofran Inj) 4 mg Q4H PRN IV NAUSEA AND/OR VOMITING Last administered on 11/10/18at 20:10; Admin Dose 4 MG; Start 10/26/18 at 15:30 Epoetin Maxwell-epbx (Retacrit (Esrd)) 10,000 unit MoWeFr@1700 SC Last a dministered on 11/11/18 18:38; Admin Dose 10,000 UNIT; Start 10/28/18 at 17:00 Oxacillin Sodium 2 gm/Sodium Chloride 50 ml @ 100 mls/hr Q6 IVPB Last administered on 11/13/18 05:56; Admin Dose 100 MLS/HR; Start 10/30/18 at 18:00 Mupirocin (Bactroban) 1 applic BID TOP Last administered on 11/13/18 08:21; Admin Dose 1 APPLIC; Start 11/02/18 at 13:30 Heparin Sodium (Porcine) (Heparin (1000 Units/ml)) 6,100 unit AFTER DIALYSIS PRN CATHETER DIALYSIS Last administered on 11/12/18 12:57; Admin Dose 6,100 UNIT; Start 11/07/18 at 14:00 Morphine Sulfate (morphine) 3 mg Q4H PRN IV SEVERE PAIN LEVEL 7-10 Last administered on 11/13/18 10:04; Admin Dose 3 MG; Start 11/08/18 at 19:30 Diphenhydramine HCl (Benadryl) 25 mg Q4H PRN IV ALLERGIC REACTION Last administered on 11/13/18 10:04; Admin Dose 25 MG; Start 11/09/18 at 09:00 Metoprolol Tartrate (Lopressor) 5 mg Q4H PRN IV HR>110 Hold SBP<100 Last administered on 11/12/18 11:52; Admin Dose 5 MG; Start 11/09/18 at 14:30 EDILMA CASIANO Nov 13, 2018 10:37
--- NOTE | 2018-11-13 11:26 | CONS ---
Assessment/Plan Assessment/Plan Hospital Course (Demo Recall) 1. Bacteremia, assess for endocarditis, intracardiac source of infection. s/p AMANDA 11/04 with no definite signs intracardiac infection - on therapy now 2. Abnormal electrocardiogram with lateral T-wave inversion- r/o mI. 3. Hypertension, mainly diastolic labile, currently improved - better with HD. 4. Leukemia - oncology follows. 5. Anemia - no bleeding now. 6. Initial hypotension. Initially with midodrine- somewhat labile but not requiring midodrine 7. Tachycardia-S tach now improved, started after HD yesterday. Still has with ambulation. ? relative volume depletion 8. ESRD on HD s/p new R femoral HD catheter - HD now. Consultation Date/Type/Reason Admit Date/Time Oct 25, 2018 at 04:13 Initial Consult Date 10/25/18 Requesting Provider: LUANNE WALTER MD Date/Time of Note DATE: 11/13/18 TIME: 11:25 24 HR Interval Summary Free Text/Dictation VS reviewed - stable Exam/Review of Systems Exam Vitals Vital Signs Date Temp Pulse Resp B/P (MAP) Pulse Ox O2 O2 Flow FiO2 Time Delivery Rate 11/13/18 Nasal 2.0 07:39 Cannula 11/13/18 98.2 98 16 97/61 (73) 97 07:19 Intake and Output 11/12/18 11/12/18 11/13/18 1515:00 23:00 07:00 IntakeIntake Total 350 ml 450 ml 150 ml OutputOutput Total 2500 ml BalanceBalance -2150 ml 450 ml 150 ml Results Result Diagram: 11/13/18 0540 11/13/18 0540 Results 24hrs Laboratory Tests Test 11/13/18 05:40 White Blood Count 8.6 Red Blood Count 3.84 L Hemoglobin 12.0 Hematocrit 39.0 Mean Corpuscular Volume 101.6 H Mean Corpuscular Hemoglobin 31.3 Mean Corpuscular Hemoglobin Concent 30.8 L Red Cell Distribution Width 17.6 H Platelet Count 214 Mean Platelet Volume 11.6 H Immature Granulocytes % 0.400 Neutrophils % 67.7 Lymphocytes % 19.1 Monocytes % 8.2 Eosinophils % 3.5 Basophils % 1.1 Nucleated Red Blood Cells % 0.0 Immature Granulocytes # 0.030 Neutrophils # 5.8 Lymphocytes # 1.6 Monocytes # 0.7 Eosinophils # 0.3 Basophils # 0.1 Nucleated Red Blood Cells # 0.0 Sodium Level 140 Potassium Level 4.9 # Chloride Level 95 L Carbon Dioxide Level 26 Anion Gap 19 H Blood Urea Nitrogen 50 H Creatinine 7.00 H Est Glomerular Filtrat Rate mL/min 7 L Glucose Level 98 Calcium Level 9.3 Medications Medication Current Medications Albumin Human 100 ml @ 100 mls/hr WITH DIALYSIS PRN IV SBP <90 DURING DIALYSIS Last administered on 10/24/18 21:00; Admin Dose 100 MLS/HR; Start 10/24/18 at 18:00 Sodium Chloride 250 ml @ 250 mls/hr Q1H PRN IV tachycardia Last administered on 11/10/18 09:39; Admin Dose 250 MLS/HR; Start 10/25/18 at 01:00 Acetaminophen (Tylenol Tab) 650 mg Q4 PRN PO FEVER Last administered on 11/08/18 18:01; Admin Dose 650 MG; Start 10/25/18 at 01:00 Sevelamer Carbonate (Renvela) 800 mg WITH MEALS PO Last administered on 11/13/18 08:20; Admin Dose 800 MG; Start 10/25/18 at 07:35 Midodrine (Proamatine) 5 mg TID@09,13,17 PO Last administered on 11/13/18 08:20; Admin Dose 5 MG; Start 10/26/18 at 09:00 Lidocaine (Xylocaine 1% (Mdv) 20 ml) 1 ml WITH DIALYSIS PRN INJ PRIOR TO CANULLATION/HD; Start 10/26/18 at 12:30 Ondansetron HCl (Zofran Inj) 4 mg Q4H PRN IV NAUSEA AND/OR VOMITING Last administered on 11/10/18at 20:10; Admin Dose 4 MG; Start 10/26/18 at 15:30 Epoetin Maxwell-epbx (Retacrit (Esrd)) 10,000 unit MoWeFr@1700 SC Last administered on 11/11/18 18:38; Admin Dose 10,000 UNIT; Start 10/28/18 at 17:00 Oxacillin Sodium 2 gm/Sodium Chloride 50 ml @ 100 mls/hr Q6 IVPB Last administered on 11/13/18 05:56; Admin Dose 100 MLS/HR; Start 10/30/18 at 18:00 Mupirocin (Bactroban) 1 applic BID TOP Last administered on 11/13/18 08:21; Admin Dose 1 APPLIC; Start 11/02/18 at 13:30 Heparin Sodium (Porcine) (Heparin (1000 Units/ml)) 6,100 unit AFTER DIALYSIS PRN CATHETER DIALYSIS Last administered on 11/12/18 12:57; Admin Dose 6,100 UNI T; Start 11/07/18 at 14:00 Morphine Sulfate (morphine) 3 mg Q4H PRN IV SEVERE PAIN LEVEL 7-10 Last administered on 11/13/18 10:04; Admin Dose 3 MG; Start 11/08/18 at 19:30 Diphenhydramine HCl (Benadryl) 25 mg Q4H PRN IV ALLERGIC REACTION Last administered on 11/13/18 10:04; Admin Dose 25 MG; Start 11/09/18 at 09:00 Metoprolol Tartrate (Lopressor) 5 mg Q4H PRN IV HR>110 Hold SBP<100 Last admin istered on 11/12/18 11:52; Admin Dose 5 MG; Start 11/09/18 at 14:30 YUMIKO HO MD Nov 13, 2018 11:26
[2018-11-13 11:49] VITALS: BP 106/68; PULSE 94; RESP 16
[2018-11-13 15:46] VITALS: BP 114/84; PULSE 106; RESP 16
[2018-11-13 19:18] VITALS: BP 121/86; PULSE 87; RESP 16
--- NOTE | 2018-11-13 20:09 | CONS ---
Assessment/Plan Assessment/Plan Hospital Course (Demo Recall) # sepsis, heme/onc - s/p sepsis due to bacteremia, recurrent. Resolved - s/p persistent and recurrent bacteremia on 10/24, 10/25, and 10/26 due to MSSA; repeat blood cultures on 10/28 & 11/02 were negative; transthoracic echo did not mention vegetation; AMANDA showed no vegetation - the source of her bacteremia was her HD catheter. No other focus of infection was found: WBC tagged scan on 11/05/2018 showed several non-specific foci of increased activity along R anterior chest wall;however, chest CT on 11/07/2018 showed no fluid collection identified within the chest wall. 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 Per Pt, she had pruritus, "bumps" and green discharge from the catheter site. Its culture on 10/31/2018 grew S. aureus. It was removed on 11/04/2018 - s/p placement of an HD catheter on R groin on 11/07/2018-->removed on 11/10/18 - s/p placement of an HD catheter on L groin on 11/10/2018 - soft tissue CHRISTEL of b/l groin on 11/10/2018 did not show hematoma or active signs of bleeding or abscess - h/o removal of permacath on R chest wall on 07/14/2018 - h/o R femoral HD perez catheter placement 07/14/2018, replaced by HD permacath 07/19/2018 - h/o pain/increased sensitivity of R groin after replacement of the Perez with permacath. soft tissue CHRISTEL on 07/20/2018 showed no abnormality at the site of the palpable lesion adjacent to R inguinal region HD catheter - h/o swelling on the scalp and chest wall, possibly due to collateral veins as a result of thrombosis of AVF - h/o removal and placement of a new Perez catheter in 05/2018. The culture of the tip of the removed catheter, blood cultures and swab of the catheter site were negative. 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 Last used for HD in 04/2018. Was scheduled to get a new graft in [facility] as outpatient - h/o 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 Pt took renally dosed valACV (07/15/2018-07/17/2018) - adverse reaction to vancomycin (pruritus) - adverse reaction to linezolid (thrombocytopenia). Linezolid was discontinued (06/12/2018-06/17/2018) - ?adverse reaction to cefazolin (severe abd pain/cramping, although pt tolerated a 14 day course of cefazolin in 06/2018) - painful nodule on L thumb; X-ray shows possible subcutaneous mass adjacent to the radial aspect of the first metacarpal. Recommendations: - continue renally dosed oxacillin 2gm IV q6 hours (10/30/2018-) for 2 weeks after removal of her HD catheter, i.e. 11/04/18-11/18/18. Management d/w patient, BRIANA Diaz, and with Dr. Herrera Consultation Date/Type/Reason Admit Date/Time Oct 25, 2018 at 04:13 Initial Consult Date 10/25/18 Type of Consult Infectious Disease Requesting Provider: LUANNE WALTER MD Date/Time of Note DATE: 11/13/18 TIME: 20:09 24 HR Interval Summary Free Text/Dictation Pt states pain is currently tolerable as she recently received pain med rating 2/10. C/o R thigh pain with walking r/t hematoma. Pt reports that she feels a "bump" on her head that moves to the other side when palpated. Pt is asking why her HR increases when laying in bed as the nurse intermittently calls in the intercom to ask if pt is okay. Exam/Review of Systems Exam Vitals Vital Signs Date Temp Pulse Resp B/P (MAP) Pulse Ox O2 O2 Flow FiO2 Time Delivery Rate 11/13/18 98.6 87 16 121/86 100 Nasal 19:18 (98) Cannula 11/13/18 2.0 07:39 Intake and Output 11/12/18 11/12/18 11/13/18 1515:00 23:00 07:00 IntakeIntake Total 350 ml 450 ml 150 ml OutputOutput Total 2500 ml BalanceBalance -2150 ml 450 ml 150 ml Exam Constitutional: alert, oriented, well developed, frail Psych: no complaints, nl mood/affect Head: normocephalic, other (alopecia. I do not palpate a bump) Eyes: nl conjunctiva, nl lids, nl sclera ENMT: nl external ears & nose, nl lips & teeth, nl nasal mucosa & septum, mucosa pink and moist Neck: supple Respiratory: clear to auscultation, normal air movement Cardiovascular: nl pulses, other (regular rhythm, tachycardic); No edema Gastrointestinal: soft, non-tender; No distended Genitourinary - Female: other (L groin HD catheter in place with HD in progress; R groin old HD catheter site is mildly swollen with hematoma/ecchymosis noted with TTP) Musculoskeletal: nl extremities to inspection Extremities: normal pulses; No edema 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: [employer] 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 intact, nl mental status, nl speech Skin: nl turgor, rash or lesions (few lesions on her face r/t scratching; few scabs and dry ulcers after changing HD catheter sites in the groin and chest wall), other (few tattoos) Results Result Diagram: 11/13/18 0540 11/13/18 0540 Results 24hrs Laboratory Tests Test 11/13/18 05:40 White Blood Count 8.6 Red Blood Count 3.84 L Hemoglobin 12.0 Hematocrit 39.0 Mean Corpuscular Volume 101.6 H Mean Corpuscular Hemoglobin 31.3 Mean Corpuscular Hemoglobin Concent 30.8 L Red Cell Distribution Width 17.6 H Platelet Count 214 Mean Platelet Volume 11.6 H Immature Granulocytes % 0.400 Neutrophils % 67.7 Lymphocytes % 19.1 Monocytes % 8.2 Eosinophils % 3.5 Basophils % 1.1 Nucleated Red Blood Cells % 0.0 Immature Granulocytes # 0.030 Neutrophils # 5.8 Lymphocytes # 1.6 Monocytes # 0.7 Eosinophils # 0.3 Basophils # 0.1 Nucleated Red Blood Cells # 0.0 Sodium Level 140 Potassium Level 4.9 # Chloride Level 95 L Carbon Dioxide Level 26 Anion Gap 19 H Blood Urea Nitrogen 50 H Creatinine 7.00 H Est Glomerular Filtrat Rate mL/min 7 L Glucose Level 98 Calcium Level 9.3 Medications Medication Current Medications Albumin Human 100 ml @ 100 mls/hr WITH DIALYSIS PRN IV SBP <90 DURING DIALYSIS Last administered on 10/24/18at 21:00; Admin Dose 100 MLS/HR; Start 10/24/18 at 18:00 Sodium Chloride 250 ml @ 250 mls/hr Q1H PRN IV tachycardia Last administered on 11/10/18at 09:39; Admin Dose 250 MLS/HR; Start 10/25/18 at 01:00 Acetaminophen (Tylenol Tab) 650 mg Q4 PRN PO FEVER Last administered on 11/08/18 18:01; Admin Dose 650 MG; Start 10/25/18 at 01:00 Sevelamer Carbonate (Renvela) 800 mg WITH MEALS PO Last administered on 11/13/18at 17:57; Admin Dose 800 MG; Start 10/25/18 at 07:35 Midodrine (Proamatine) 5 mg TID@09,13,17 PO Last administered on 11/13/18at 17:57; Admin Dose 5 MG; Start 10/26/18 at 09:00 Lidocaine (Xylocaine 1% (Mdv) 20 ml) 1 ml WITH DIALYSIS PRN INJ PRIOR TO CANULLATION/HD; Start 10/26/18 at 12:30 Ondansetron HCl (Zofran Inj) 4 mg Q4H PRN IV NAUSEA AND/OR VOMITING Last administered on 11/10/18 20:10; Admin Dose 4 MG; Start 10/26/18 at 15:30 Epoetin Maxwell-epbx (Retacrit (Esrd)) 10,000 unit MoWeFr@1700 SC Last administered on 11/11/18 18:38; Admin Dose 10,000 UNIT; Start 10/28/18 at 17:00 Oxacillin Sodium 2 gm/Sodium Chloride 50 ml @ 100 mls/hr Q6 IVPB Last administered on 11/13/18 17:59; Admin Dose 100 MLS/HR; Start 10/30/18 at 18:00 Mupirocin (Bactroban) 1 applic BID TOP Last administered on 11/13/18 08:21; Admin Dose 1 APPLIC; Start 11/02/18 at 13:30 Heparin Sodium (Porcine) (Heparin (1000 Units/ml)) 6,100 unit AFTER DIALYSIS PRN CATHETER DIALYSIS Last administered on 11/12/18 12:57; Admin Dose 6,100 UNIT; Start 11/07/18 at 14:00 Morphine Sulfate (morphine) 3 mg Q4H PRN IV SEVERE PAIN LEVEL 7-10 Last administered on 11/13/18 17:59; Admin Dose 3 MG; Start 11/08/18 at 19:30 Diphenhydramine HCl (Benadryl) 25 mg Q4H PRN IV ALLERGIC REACTION Last administered on 11/13/18 17:58; Admin Dose 25 MG; Start 11/09/18 at 09:00 Metoprolol Tartrate (Lopressor) 5 mg Q4H PRN IV HR>110 Hold SBP<100 Last administered on 11/12/18 11:52; Admin Dose 5 MG; Start 11/09/18 at 14:30 EDIE BUENO NP Nov 13, 2018 20:09
--- NOTE | 2018-11-13 20:41 | CONS ---
Assessment/Plan Assessment/Plan Assessment/Plan (Daily) 1. Septic shock s/p Levophed - now resolved 2. ESRD on HD MWF schedule , left femoral permacath for HD access 3. Bacteremia with Blood cx growing staph aureus -s/p removal of left permacath on 11/04/18- pt remained line free for 3 days then insertion of Right groin permacath on 11/07/18 which is removed due to hematoma around catheter site then pt subsequently had a new permacath placemen ton left groin on 11/10/18 4. H/o Leukemia currently on chemotherapy, last chem on 10/21/18 5. H/o Primary hyperparathyroidism, status post complete parathyroidectomy and partial left thyroid lobectomy 2 years ago. 6. H/o Anemia of ESRD 7, Difficult vascular Access 8. anemia of ESRD Plan: s/p Removal of Right groin permacath,due to pericatheter hematoma, now s/p left groin permacath placement s/p Extra HD yesteday 1.8 L removed, HD ordered for Wednesday - pt will be on MWF schedule staph aureus bacteremia - IV abx oxacillin 2 gram IV Q 6 hr - ID following Continue other home medications, Midodrine 5 mg PO TID for BP support - Epogen 58957 units SQ MWF will follow up Consultation Date/Type/Reason Admit Date/Time Oct 25, 2018 at 04:13 Initial Consult Date Type of Consult NEPHROLOGY Requesting Provider: LUANNE WALTER MD Date/Time of Note DATE: 11/13/18 TIME: 20:41 24 HR Interval Summary Free Text/Dictation s/p HD yesterday 1.8 L removed, BP stable, on SOB, Exam/Review of Systems Exam Vitals Vital Signs Date Temp Pulse Resp B/P (MAP) Pulse Ox O2 O2 Flow FiO2 Time Delivery Rate 11/13/18 98.6 87 16 121/86 100 Nasal 19:18 (98) Cannula 11/13/18 2.0 07:39 Intake and Output 11/12/18 11/12/18 11/13/18 1515:00 23:00 07:00 IntakeIntake Total 350 ml 450 ml 150 ml OutputOutput Total 2500 ml BalanceBalance -2150 ml 450 ml 150 ml Exam Constitutional: alert, awake, no acute distress Respiratory: clear to auscultation Cardiovascular: regular rate and rhythm Gastrointestinal: soft, non-tender Musculoskeletal: nl extremities to inspection Extremities: normal pulses 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: nl mental status Additional Comments Left femoral hemodialysis catheter, left upper extremity AV fistula nonfunctional Results Result Diagram: 11/13/18 0540 11/13/18 0540 Results 24hrs Laboratory Tests Test 11/13/18 05:40 White Blood Count 8.6 Red Blood Count 3.84 L Hemoglobin 12.0 Hematocrit 39.0 Mean Corpuscular Volume 101.6 H Mean Corpuscular Hemoglobin 31.3 Mean Corpuscular Hemoglobin Concent 30.8 L Red Cell Distribution Width 17.6 H Platelet Count 214 Mean Platelet Volume 11.6 H Immature Granulocytes % 0.400 Neutrophils % 67.7 Lymphocytes % 19.1 Monocytes % 8.2 Eosinophils % 3.5 Basophils % 1.1 Nucleated Red Blood Cells % 0.0 Immature Granulocytes # 0.030 Neutrophils # 5.8 Lymphocytes # 1.6 Monocytes # 0.7 Eosinophils # 0.3 Basophils # 0.1 Nucleated Red Blood Cells # 0.0 Sodium Level 140 Potassium Level 4.9 # Chloride Level 95 L Carbon Dioxide Level 26 Anion Gap 19 H Blood Urea Nitrogen 50 H Creatinine 7.00 H Est Glomerular Filtrat Rate mL/min 7 L Glucose Level 98 Calcium Level 9.3 Medications Medication Current Medications Albumin Human 100 ml @ 100 mls/hr WITH DIALYSIS PRN IV SBP <90 DURING DIALYSIS Last administered on 10/24/18at 21:00; Admin Dose 100 MLS/HR; Start 10/24/18 at 18:00 Sodium Chloride 250 ml @ 250 mls/hr Q1H PRN IV tachycardia Last administered on 11/10/18at 09:39; Admin Dose 250 MLS/HR; Start 10/25/18 at 01:00 Acetaminophen (Tylenol Tab) 650 mg Q4 PRN PO FEVER Last administered on 11/08/18at 18:01; Admin Dose 650 MG; Start 10/25/18 at 01:00 Sevelamer Carbonate (Renvela) 800 mg WITH MEALS PO Last administered on 11/13/18at 17:57; Admin Dose 800 MG; Start 10/25/18 at 07:35 Midodrine (Proamatine) 5 mg TID@09,13,17 PO Last administered on 11/13/18at 17:57; Admin Dose 5 MG; Start 10/26/18 at 09:00 Lidocaine (Xylocaine 1% (Mdv) 20 ml) 1 ml WITH DIALYSIS PRN INJ PRIOR TO CANULLATION/HD; Start 10/26/18 at 12:30 Ondansetron HCl (Zofran Inj) 4 mg Q4H PRN IV NAUSEA AND/OR VOMITING Last administered on 11/10/18 20:10; Admin Dose 4 MG; Start 10/26/18 at 15:30 Epoetin Maxwell-epbx (Retacrit (Esrd)) 10,000 unit MoWeFr@1700 SC Last administered on 11/11/18 18:38; Admin Dose 10,000 UNIT; Start 10/28/18 at 17:00 Oxacillin Sodium 2 gm/Sodium Chloride 50 ml @ 100 mls/hr Q6 IVPB Last administered on 11/13/18 17:59; Admin Dose 100 MLS/HR; Start 10/30/18 at 18:00 Mupirocin (Bactroban) 1 applic BID TOP Last administered on 11/13/18 08:21; Admin Dose 1 APPLIC; Start 11/02/18 at 13:30 Heparin Sodium (Porcine) (Heparin (1000 Units/ml)) 6,100 unit AFTER DIALYSIS PRN CATHETER DIALYSIS Last administered on 11/12/18 12:57; Admin Dose 6,100 UNIT; Start 11/07/18 at 14:00 Morphine Sulfate (morphine) 3 mg Q4H PRN IV SEVERE PAIN LEVEL 7-10 Last administered on 11/13/18 17:59; Admin Dose 3 MG; Start 11/08/18 at 19:30 Diphenhydramine HCl (Benadryl) 25 mg Q4H PRN IV ALLERGIC REACTION Last administered on 11/13/18 17:58; Admin Dose 25 MG; Start 11/09/18 at 09:00 Metoprolol Tartrate (Lopressor) 5 mg Q4H PRN IV HR>110 Hold SBP<100 Last administered on 11/12/18 11:52; Admin Dose 5 MG; Start 11/09/18 at 14:30 HENRIQUE GRANADO MD Nov 13, 2018 20:41
[2018-11-14] VITALS (25 sets, daily range): BP systolic 67–121; BP diastolic 43–90; PULSE 77–134; RESP 16–18
[2018-11-14] MEDS: morphine 4 MG/ML VIAL IV PRN ×4 (02:05→21:10)
[2018-11-14] MEDS: DIPHENHYDRAMINE 50 MG INJ IV PRN ×4 (02:05→21:13)
[2018-11-14] MEDS: OXACILLIN 2 GM in SOD CHLORIDE 0.9% 50 ML IVPB SCH ×3 (05:57→17:33)
[2018-11-14] MEDS: SEVELAMER CARBONATE 800 MG TABLET PO SCH ×4 (08:15→17:55)
[2018-11-14] MEDS: ONDANSETRON 4 MG INJ IV PRN (08:16)
[2018-11-14] MEDS: MUPIROCIN 2% 22 GM OINT TOP SCH ×2 (08:19→21:16)
[2018-11-14] MEDS: MIDODRINE 5 MG TAB PO SCH ×3 (09:13→17:32)
--- NOTE | 2018-11-14 11:44 | CONS ---
Assessment/Plan Assessment/Plan Assessment/Plan (Daily) 1. Septic shock s/p Levophed - now resolved 2. ESRD on HD MWF schedule , left femoral permacath for HD access 3. Bacteremia with Blood cx growing staph aureus -s/p removal of left permacath on 11/04/18- pt remained line free for 3 days then insertion of Right groin permacath on 11/07/18 which is removed due to hematoma around catheter site then pt subsequently had a new permacath placemen ton left groin on 11/10/18 4. H/o Leukemia currently on chemotherapy, last chem on 10/21/18 5. H/o Primary hyperparathyroidism, status post complete parathyroidectomy and partial left thyroid lobectomy 2 years ago. 6. H/o Anemia of ESRD 7, Difficult vascular Access 8. anemia of ESRD Plan: s/p Removal of Right groin permacath,due to pericatheter hematoma, now s/p left groin permacath placement- today poor flow through catheter, tPA placed Post HD pt will be on MWF schedule- next HD will be on wednesday staph aureus bacteremia - IV abx oxacillin 2 gram IV Q 6 hr - ID following Continue other home medications, Midodrine 5 mg PO TID for BP support - Epogen 6000 units Q week will follow up Consultation Date/Type/Reason Admit Date/Time Oct 25, 2018 at 04:13 Initial Consult Date Type of Consult NEPHROLOGY Requesting Provider: LUANNE WALTER MD Date/Time of Note DATE: 11/14/18 TIME: 11:44 24 HR Interval Summary Free Text/Dictation pt had a poor blood flow through Left groin permacath Exam/Review of Systems Exam Vitals Vital Signs Date Temp Pulse Resp B/P (MAP) Pulse Ox O2 O2 Flow FiO2 Time Delivery Rate 11/14/18 96 18 115/83 100 Room Air 09:30 (94) 11/14/18 97.5 4.0 07:36 Intake and Output 11/13/18 11/13/18 11/14/18 1515:00 23:00 07:00 IntakeIntake Total 290 ml 450 ml 100 ml BalanceBalance 290 ml 450 ml 100 ml Exam Constitutional: alert, awake, no acute distress Respiratory: clear to auscultation Cardiovascular: regular rate and rhythm Gastrointestinal: soft, non-tender Musculoskeletal: nl extremities to inspection Extremities: normal pulses 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: nl mental status Additional Comments Left femoral hemodialysis catheter, left upper extremity AV fistula nonfunctional Results Result Diagram: 11/13/1853911/13/18539 Medications Medication Current Medications Albumin Human 100 ml @ 100 mls/hr WITH DIALYSIS PRN IV SBP <90 DURING DIALYSIS Last administered on 10/24/18 21:00; Admin Dose 100 MLS/HR; Start 10/24/18 at 18:00 Sodium Chloride 250 ml @ 250 mls/hr Q1H PRN IV tachycardia Last administered on 11/10/18 09:39; Admin Dose 250 MLS/HR; Start 10/25/18 at 01:00 Acetaminophen (Tylenol Tab) 650 mg Q4 PRN PO FEVER Last administered on 11/08/18 18:01; Admin Dose 650 MG; Start 10/25/18 at 01:00 Sevelamer Carbonate (Renvela) 800 mg WITH MEALS PO Last administered on 11/14/18 08:15; Admin Dose 800 MG; Start 10/25/18 at 07:35 Midodrine (Proamatine) 5 mg TID@09,13,17 PO Last administered on 11/14/18 09:13; Admin Dose 5 MG; Start 10/26/18 at 09:00 Lidocaine (Xylocaine 1% (Mdv) 20 ml) 1 ml WITH DIALYSIS PRN INJ PRIOR TO CAN ULLATION/HD; Start 10/26/18 at 12:30 Ondansetron HCl (Zofran Inj) 4 mg Q4H PRN IV NAUSEA AND/OR VOMITING Last administered on 11/14/18 08:16; Admin Dose 4 MG; Start 10/26/18 at 15:30 Oxacillin Sodium 2 gm/Sodium Chloride 50 ml @ 100 mls/hr Q6 IVPB Last administered on 11/14/18 05:57; Admin Dose 100 MLS/HR; Start 10/30/18 at 18:00 Mupirocin (Bactroban) 1 applic BID TOP Last administered on 11/14/18 08:19; Admin Dose 1 APPLIC; Start 11/02/18 at 13:30 Heparin Sodium (Porcine) (Heparin (1000 Units/ml)) 6,100 unit AFTER DIALYSIS PRN CATHETER DIALYSIS Last administered on 7/20/19at 12:57; Admin Dose 6,100 UNIT; Start 11/07/18 at 14:00 Morphine Sulfate (morphine) 3 mg Q4H PRN IV SEVERE PAIN LEVEL 7-10 Last administered on 11/14/18at 10:12; Admin Dose 3 MG; Start 11/08/18 at 19:30 Diphenhydramine HCl (Benadryl) 25 mg Q4H PRN IV ALLERGIC REACTION Last administered on 11/14/18at 10:12; Admin Dose 25 MG; Start 11/09/18 at 09:00 Metoprolol Tartrate (Lopressor) 5 mg Q4H PRN IV HR>110 Hold SBP<100 Last administered on 11/12/18at 11:52; Admin Dose 5 MG; Start 11/09/18 at 14:30 Epoetin Maxwell-epbx (Retacrit (Esrd)) 6,000 unit We@1700 SC ; Start 11/16/18 at 17:00 Alteplase, Recombinant (Cathflo (Activase)) 4 mg ONCE ONCE CATHETER ; Start 11/14/18 at 12:00; Stop 11/14/18 at 12:01 HENRIQUE GRANADO MD Nov 14, 2018 11:44
--- NOTE | 2018-11-14 11:50 | CONS ---
Assessment/Plan Assessment/Plan Hospital Course (Demo Recall) IMPRESSION: 1. Bacteremia, assess for endocarditis, intracardiac source of infection. s/p AMANDA 11/04 with no definite signs intracardiac infection 2. Abnormal electrocardiogram with lateral T-wave inversion. 3. Hypertension, mainly diastolic labile, currently improved. 4. Leukemia. 5. Anemia. 6. Initial hypotension. Initially with midodrine- somewhat labile but not requiring midodrine 7. Tachycardia-S tach now improved, strted after HD yesterday. Still has with ambulation. ? relative volume depletion 8. ESRD on HD s/p new R femoral HD catheter Recc: -Tele -continue abx's and f/u cx data -HD for volume removal as tolerated -IVP PRN BB -Contineu midodrine as necessary Consultation Date/Type/Reason Admit Date/Time Oct 25, 2018 at 04:13 Initial Consult Date 10/25/18 Type of Consult Cardiology Reason for Consultation Bacteremia Requesting Provider: LUANNE WALTER MD Date/Time of Note DATE: 11/14/18 TIME: 11:47 Exam/Review of Systems Vital Signs Vitals Vital Signs Date Temp Pulse Resp B/P (MAP) Pulse Ox O2 O2 Flow FiO2 Time Delivery Rate 11/14/18 96 18 115/83 100 Room Air 09:30 (94) 11/14/18 97.5 4.0 07:36 Intake and Output 11/13/18 11/13/18 11/14/18 1515:00 23:00 07:00 IntakeIntake Total 290 ml 450 ml 100 ml BalanceBalance 290 ml 450 ml 100 ml Exam Exam Review of Systems: CONSTITUTIONAL: No fevers, chills. PULMONARY: No sob CARDIOVASCULAR: No chest pain/palpitations GASTROINTESTINAL: No nausea/vomiting. GENITOURINARY: No hematuria/dysuria. MUSCULOSKELETAL: No myagias/arthalgias. PSYCHIATRIC: The patient denies depression. NEUROLOGIC: No weakness Constitutional: alert, oriented Psych: no complaints Head: normocephalic ENMT: mucosa pink and moist Neck: supple, jvd (9 cm water) Respiratory: diminished breath sounds (at bases/B) Cardiovascular: regular rate and rhythm Gastrointestinal: soft, non-tender Musculoskeletal: muscle tone (normal) Extremities: edema (trace/B) 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: other (no focal deficits) Labs Result Diagram: 11/13/18 0540 11/13/1840 Medications Medications Current Medications Albumin Human 100 ml @ 100 mls/hr WITH DIALYSIS PRN IV SBP <90 DURING DIALYSIS Last administered on 10/24/18 21:00; Admin Dose 100 MLS/HR; Start 10/24/18 at 18:00 Sodium Chloride 250 ml @ 250 mls/hr Q1H PRN IV tachycardia Last administered on 11/10/18 09:39; Admin Dose 250 MLS/HR; Start 10/25/18 at 01:00 Acetaminophen (Tylenol Tab) 650 mg Q4 PRN PO FEVER Last administered on 11/08/18 18:01; Admin Dose 650 MG; Start 10/25/18 at 01:00 Sevelamer Carbonate (Renvela) 800 mg WITH MEALS PO Last administered on 11/14/18 08:15; Admin Dose 800 MG; Start 10/25/18 at 07:35 Midodrine (Proamatine) 5 mg TID@09,13,17 PO Last administered on 11/14/18 09:13; Admin Dose 5 MG; Start 10/26/18 at 09:00 Lidocaine (Xylocaine 1% (Mdv) 20 ml) 1 ml WITH DIALYSIS PRN INJ PRIOR TO CANULLATION/HD; Start 10/26/18 at 12:30 Ondansetron HCl (Zofran Inj) 4 mg Q4H PRN IV NAUSEA AND/OR VOMITING Last administered on 11/14/18 08:16; Admin Dose 4 MG; Start 10/26/18 at 15:30 Oxacillin Sodium 2 gm/Sodium Chloride 50 ml @ 100 mls/hr Q6 IVPB Last administered on 11/14/18 05:57; Admin Dose 100 MLS/HR; Start 10/30/18 at 18:00 Mupirocin (Bactroban) 1 applic BID TOP Last administered on 11/14/18 08:19; Admin Dose 1 APPLIC; Start 11/02/18 at 13:30 Heparin Sodium (Porcine) (Heparin (1000 Units/ml)) 6,100 unit AFTER DIALYSIS PRN CATHETER DIALYSIS Last administered on 11/12/18 12:57; Admin Dose 6,100 UNIT; Start 11/07/18 at 14:00 Morphine Sulfate (morphine) 3 mg Q4H PRN IV SEVERE PAIN LEVEL 7-10 Last administered on 11/14/18at 10:12; Admin Dose 3 MG; Start 11/08/18 at 19:30 Diphenhydramine HCl (Benadryl) 25 mg Q4H PRN IV ALLERGIC REACTION Last administered on 11/14/18at 10:12; Admin Dose 25 MG; Start 11/09/18 at 09:00 Metoprolol Tartrate (Lopressor) 5 mg Q4H PRN IV HR>110 Hold SBP<100 Last administered on 11/12/18at 11:52; Admin Dose 5 MG; Start 11/09/18 at 14:30 Epoetin Maxwell-epbx (Retacrit (Esrd)) 6,000 unit We@1700 SC ; Start 11/16/18 at 17:00 Alteplase, Recombinant (Cathflo (Activase)) 4 mg ONCE ONCE CATHETER ; Start 11/14/18 at 12:00; Stop 11/14/18 at 12:01 HENRIQUE GARCIA Nov 14, 2018 11:50
[2018-11-14] MEDS ORDERED: ALTEPLASE (CATHFLO) 2 MG INJ CATHETER ONE (12:00)
[2018-11-14] MEDS ORDERED: LORAZEPAM 2 MG INJ IV ONE (13:00)
[2018-11-14] MEDS ORDERED: SOD CHLORIDE 0.9% 250 ML IV ONE (14:30)
--- NOTE | 2018-11-14 16:01 | PN ---
Date/Time of Note Date/Time of Note DATE: 11/14/18 TIME: 15:54 Assessment/Plan VTE Prophylaxis Risk score (from Ns)>0 risk: 2 SCD applied (from [facility]): No SCD contraindicated: bilateral LE trauma Pharmacological prophylaxis: NA/contraindicated Pharm contraindication: bleeding Lines/Catheters IV Catheter Type (from Rust): Permacath Urinary Cath still in place: No Assessment/Plan Hospital Course Patient is sinus tachycardia with rate going to 140s 150 during hemodialysis towards the end of hemodialysis which was stopped, patient is agitated was giving Ativan currently is stable heart rate is 120 will give normal saline 250 cc bolus. Patient denies chest pain, denies shortness of breath. Patient's condition and plan of care discussed with the patient and patient parents at the bedside. Assessment/Plan -Sepsis with DIMITRI bacteremia with fevers, leukocytosis, and hypotension. patient is currently continued on oxacillin 2 g every 6 hours Continue antibiotics per ID. Dr. Arora is following in ID consultation. AMANDA is negative for vegetation. Dr. Barrera is following in cardiology consultation. -Hemodialysis dependent end-stage renal disease, continue dialysis per nephrology. Dr. Beltran is following in nephrology consultation. -Leukemia, patient is undergoing chemotherapy last chemo was on Wednesday10/11/18. -Anemia multifactorial chronic disease and recent chemo, status post blood transfusion, continue to monitor H&H, continue Epogen. -Mineral bone disease with renal osteodystrophy. No acute fractures, traumatic subluxations, osteomyelitis or diskitis per MRI of the lumbar spine. -Primary hyperparathyroidism, status post complete parathyroidectomy and partial left thyroid lobectomy 2 years ago. -Left femoral hemodialysis catheter present on admission. Further recommendations based on clinical course. Plan of care discussed with Dr. Turner. Result Diagram: 11/13/18 0540 11/13/18 0540 Exam/Review of Systems Exam Vitals Vital Signs Date Temp Pulse Resp B/P (MAP) Pulse Ox O2 O2 Flow FiO2 Time Delivery Rate 11/14/18 97.5 16 67/53 (58) 96 Nasal 3.0 15:35 Cannula 11/14/18 101 15:10 Intake and Output 11/13/18 11/13/18 11/14/18 1515:00 23:00 07:00 IntakeIntake Total 290 ml 450 ml 100 ml BalanceBalance 290 ml 450 ml 100 ml Exam Constitutional: alert Respiratory: clear to auscultation Cardiovascular: regular rate and rhythm Gastrointestinal: soft, non-tender Musculoskeletal: nl extremities to inspection Extremities: normal pulses 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: nl mental status Skin: nl turgor Additional Comments Left femoral hemodialysis catheter, left upper extremity AV fistula nonfunctional Medications Medication Current Medications Albumin Human 100 ml @ 100 mls/hr WITH DIALYSIS PRN IV SBP <90 DURING DIALYSIS Last administered on 10/24/18 21:00; Admin Dose 100 MLS/HR; Start 10/24/18 at 18:00 Sodium Chloride 250 ml @ 250 mls/hr Q1H PRN IV tachycardia Last administered on 11/10/18 09:39; Admin Dose 250 MLS/HR; Start 10/25/18 at 01:00 Acetaminophen (Tylenol Tab) 650 mg Q4 PRN PO FEVER Last administered on 11/08/18 18:01; Admin Dose 650 MG; Start 10/25/18 at 01:00 Sevelamer Carbonate (Renvela) 800 mg WITH MEALS PO Last administered on 11/14/18 11:49; Admin Dose 800 MG; Start 10/25/18 at 07:35 Midodrine (Proamatine) 5 mg TID@09,13,17 PO Last administered on 11/14/18 13:13; Admin Dose 5 MG; Start 10/26/18 at 09:00 Lidocaine (Xylocaine 1% (Mdv) 20 ml) 1 ml WITH DIALYSIS PRN INJ PRIOR TO CANULLATION/HD; Start 10/26/18 at 12:30 Ondansetron HCl (Zofran Inj) 4 mg Q4H PRN IV NAUSEA AND/OR VOMITING Last administered on 11/14/18 08:16; Admin Dose 4 MG; Start 10/26/18 at 15:30 Oxacillin Sodium 2 gm/Sodium Chloride 50 ml @ 100 mls/hr Q6 IVPB Last administered on 11/14/18 13:03; Admin Dose 100 MLS/HR; Start 10/30/18 at 18:00 Mupirocin (Bactroban) 1 applic BID TOP Last administered on 11/14/18 08:19; Admin Dose 1 APPLIC; Start 11/02/18 at 13:30 Heparin Sodium (Porcine) (Heparin (1000 Units/ml)) 6,100 unit AFTER DIALYSIS PRN CATHETER DIALYSIS Last administered on 11/12/18at 12:57; Admin Dose 6,100 UNIT; Start 11/07/18 at 14:00 Morphine Sulfate (morphine) 3 mg Q4H PRN IV SEVERE PAIN LEVEL 7-10 Last administered on 11/14/18 10:12; Admin Dose 3 MG; Start 11/08/18 at 19:30 Diphenhydramine HCl (Benadryl) 25 mg Q4H PRN IV ALLERGIC REACTION Last administered on 11/14/18at 10:12; Admin Dose 25 MG; Start 11/09/18 at 09:00 Metoprolol Tartrate (Lopressor) 5 mg Q4H PRN IV HR>110 Hold SBP<100 Last administered on 11/12/18at 11:52; Admin Dose 5 MG; Start 11/09/18 at 14:30 Epoetin Maxwell-epbx (Retacrit (Esrd)) 6,000 unit We@1700 SC ; Start 11/16/18 at 17:00 ERICK ROBERTSON Nov 14, 2018 16:01
--- NOTE | 2018-11-14 21:32 | CONS ---
Assessment/Plan Assessment/Plan Hospital Course (Demo Recall) # sepsis, heme/onc - s/p sepsis due to bacteremia, recurrent. Resolved - s/p persistent and recurrent bacteremia on 10/24, 10/25, and 10/26 due to MSSA; repeat blood cultures on 10/28 & 11/02 were negative; transthoracic echo did not mention vegetation; AMANDA showed no vegetation - the source of her bacteremia was her HD catheter. No other focus of infection was found: WBC tagged scan on 11/05/2018 showed several non-specific foci of increased activity along R anterior chest wall;however, chest CT on 11/07/2018 showed no fluid collection identified within the chest wall. 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 Per Pt, she had pruritus, "bumps" and green discharge from the catheter site. Its culture on 10/31/2018 grew S. aureus. It was removed on 11/04/2018 - s/p placement of an HD catheter on R groin on 11/07/2018-->removed on 11/10/18 - s/p placement of an HD catheter on L groin on 11/10/2018 - soft tissue CHRISTEL of b/l groin on 11/10/2018 did not show hematoma or active signs of bleeding or abscess - h/o removal of permacath on R chest wall on 07/14/2018 - h/o R femoral HD justin catheter placement 07/14/2018, replaced by HD permacath 07/19/2018 - h/o pain/increased sensitivity of R groin after replacement of the Perez with permacath. soft tissue CHRISTEL on 07/20/2018 showed no abnormality at the site of the palpable lesion adjacent to R inguinal region HD catheter - h/o swelling on the scalp and chest wall, possibly due to collateral veins as a result of thrombosis of AVF - h/o removal and placement of a new Perez catheter in 05/2018. The culture of the tip of the removed catheter, blood cultures and swab of the catheter site were negative. Pt completed an empiric course of renally dosed pip/tazo (06/13/2018-06/18/2018) - h/o placement of a permacath on R chest wall on 06/23/2018 - h/o creation of AVF in [facility] in 2016 - thrombosed L brachiocephalic AV fistula, 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 Last used for HD in 04/2018. Was scheduled to get a new graft in [facility] as outpatient - h/o 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 Pt took renally dosed valACV (07/15/2018-07/17/2018) - adverse reaction to vancomycin (pruritus) - adverse reaction to linezolid (thrombocytopenia). Linezolid was discontinued (06/12/2018-06/17/2018) - ?adverse reaction to cefazolin (severe abd pain/cramping, although pt tolerated a 14 day course of cefazolin in 06/2018) - painful nodule on L thumb; X-ray shows possible subcutaneous mass adjacent to the radial aspect of the first metacarpal. Recommendations: - continue renally dosed oxacillin 2gm IV q6 hours (10/30/2018-) for 2 weeks after removal of her HD catheter, i.e. 11/04/18-11/18/18 - monitor swelling of b/l groin management d/w Pt, her family members and RNs Consultation Date/Type/Reason Admit Date/Time Oct 25, 2018 at 04:13 Initial Consult Date 10/25/18 Type of Consult ID Requesting Provider: LUANNE WALTER MD Date/Time of Note DATE: 11/14/18 TIME: 21:28 24 HR Interval Summary Free Text/Dictation Pt was hypotensive, repeat SBP now was 92 Constitutional: no complaints Detailed Summary Eyes: no complaints ENT: no complaints Respiratory: no complaints Cardiovascular: no complaints Gastrointestinal: no complaints Genitourinary: other (Pt tolerated HD via a new cathter on R groin, c/o persistent pain of b/l thigh) Musculoskeletal: swelling (c/o persistent pain of R groin) Skin: pruritis (face, upper chest and neck) Neurologic: no complaints Exam/Review of Systems Exam Vitals Vital Signs Date Temp Pulse Resp B/P (MAP) Pulse Ox O2 O2 Flow FiO2 Time Delivery Rate 11/14/18 97 81/55 (64) 18:17 11/14/18 97.5 16 96 Nasal 3.0 15:35 Cannula Intake and Output 11/13/18 11/13/18 11/14/18 1515:00 23:00 07:00 IntakeIntake Total 290 ml 450 ml 100 ml BalanceBalance 290 ml 450 ml 100 ml Constitutional: alert, oriented Psych: no complaints, nl mood/affect Head: normocephalic, atraumatic, other (alopecia) Eyes: nl conjunctiva, nl lids ENMT: nl external ears & nose, nl nasal mucosa & septum, mucosa pink and moist Neck: non-tender Respiratory: clear to auscultation, normal air movement Cardiovascular: regular rate and rhythm, nl pulses; No edema Gastrointestinal: soft, non-tender; No distended Genitourinary - Female: other (b/l thigh is mildly swollen but no erythema, induration, tenderness) Musculoskeletal: nl extremities to inspection Extremities: No edema 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: DRIVE IN [employer]ENDANT II-XII intact, nl mental status, nl speech Skin: nl turgor Results Result Diagram: 11/13/1853911/13/18539 Medications Medication Current Medications Albumin Human 100 ml @ 100 mls/hr WITH DIALYSIS PRN IV SBP <90 DURING DIALYSIS Last administered on 10/24/18at 21:00; Admin Dose 100 MLS/HR; Start 10/24/18 at 18:00 Sodium Chloride 250 ml @ 250 mls/hr Q1H PRN IV tachycardia Last administered on 11/10/18at 09:39; Admin Dose 250 MLS/HR; Start 10/25/18 at 01:00 Acetaminophen (Tylenol Tab) 650 mg Q4 PRN PO FEVER Last administered on 11/08/18 18:01; Admin Dose 650 MG; Start 10/25/18 at 01:00 Sevelamer Carbonate (Renvela) 800 mg WITH MEALS PO Last administered on 11/14/18 11:49; Admin Dose 800 MG; Start 10/25/18 at 07:35 Midodrine (Proamatine) 5 mg TID@09,13,17 PO Last administered on 11/14/18 17:32; Admin Dose 5 MG; Start 10/26/18 at 09:00 Lidocaine (Xylocaine 1% (Mdv) 20 ml) 1 ml WITH DIALYSIS PRN INJ PRIOR TO CANULLA TION/HD; Start 10/26/18 at 12:30 Ondansetron HCl (Zofran Inj) 4 mg Q4H PRN IV NAUSEA AND/OR VOMITING Last administered on 11/14/18 08:16; Admin Dose 4 MG; Start 10/26/18 at 15:30 Oxacillin Sodium 2 gm/Sodium Chloride 50 ml @ 100 mls/hr Q6 IVPB Last administered on 11/14/18 17:33; Admin Dose 100 MLS/HR; Start 10/30/18 at 18:00 Mupirocin (Bactroban) 1 applic BID TOP Last administered on 11/14/18 21:16; Admin Dose 1 APPLIC; Start 11/02/18 at 13:30 Heparin Sodium (Porcine) (Heparin (1000 Units/ml)) 6,100 unit AFTER DIALYSIS PRN CATHETER DIALYSIS Last administered on 11/12/18 12:57; Admin Dose 6,100 UNIT; Start 11/07/18 at 14:00 Morphine Sulfate (morphine) 3 mg Q4H PRN IV SEVERE PAIN LEVEL 7-10 Last administered on 11/14/18 21:10; Admin Dose 3 MG; Start 11/08/18 at 19:30 Diphenhydramine HCl (Benadryl) 25 mg Q4H PRN IV ALLERGIC REACTION Last administered on 11/14/18 21:13; Admin Dose 25 MG; Start 11/09/18 at 09:00 Metoprolol Tartrate (Lopressor) 5 mg Q4H PRN IV HR>110 Hold SBP<100 Last administered on 11/12/18at 11:52; Admin Dose 5 MG; Start 11/09/18 at 14:30 Epoetin Maxwell-epbx (Retacrit (Esrd)) 6,000 unit We@1700 SC ; Start 11/16/18 at 17:00 GINGER HARDIN M.D. Nov 14, 2018 21:32
[2018-11-15] VITALS (7 sets, daily range): BP systolic 91–123; BP diastolic 62–87; PULSE 72–103; RESP 17–19
[2018-11-15] MEDS: OXACILLIN 2 GM in SOD CHLORIDE 0.9% 50 ML IVPB SCH ×4 (00:39→18:02)
[2018-11-15] MEDS: DIPHENHYDRAMINE 50 MG INJ IV PRN ×6 (01:09→22:11)
[2018-11-15] MEDS: morphine 4 MG/ML VIAL IV PRN ×6 (01:09→22:11)
--- NOTE | 2018-11-15 09:19 | CONS ---
Consult Date/Type/Reason Admit Date/Time Oct 25, 2018 at 04:13 Initial Consult Date 10/25/18 Requesting Provider: LUANNE WALTER MD Date/Time of Note DATE: 11/15/18 TIME: 09:17 Subjective NO acute events - BP was low after HD day prior - responded to some hydration - reports bone aches, but not really dizzy - con't supportive rx now,. ROS: No fever, no chills, no nausea, no vomiting, no diarrhea/constipation + fatigue + weight loss No chest pain, no PND, no orthopnea No dizziness, blurred vision No thirst, no heat or cold intolerance Objective Vitals Vital Signs Date Temp Pulse Resp B/P (MAP) Pulse Ox O2 O2 Flow FiO2 Time Delivery Rate 11/15/18 97.9 100 17 91/62 (72) 100 07:09 11/15/18 Nasal 03:17 Cannula 11/14/18 2.0 20:00 Intake and Output 11/14/18 11/14/18 11/15/18 1515:00 23:00 07:00 IntakeIntake Total 50 ml 50 ml OutputOutput Total 3600 ml BalanceBalance -3550 ml 50 ml Exam General: WN/thin/NAD, AOx 3 HEENT: Unicetric/atraumatic/EOMI (follow commands) NECK: JVD elevated, no thyromegaly Lymph: no lymphadenopathy HEART: regular with no S3, II/ systolic murmur at apex LUNGS: Coarse sounds ABD: soft, NT, ND, +BS : Intact Neuro: non focal SKIN: chronic changes EXT: trace edema Results/Medications Result Diagram: 11/15/18 0551 11/15/18 0551 Results 24 hrs Laboratory Tests Test 11/15/18 05:51 White Blood Count 7.4 Red Blood Count 3.95 L Hemoglobin 12.6 Hematocrit 40.4 Mean Corpuscular Volume 102.3 H Mean Corpuscular Hemoglobin 31.9 Mean Corpuscular Hemoglobin Concent 31.2 L Red Cell Distribution Width 18.0 H Platelet Count 227 Mean Platelet Volume 11.5 H Immature Granulocytes % 0.400 Neutrophils % 56.2 Lymphocytes % 26.3 Monocytes % 9.4 Eosinophils % 6.3 Basophils % 1.4 Nucleated Red Blood Cells % 0.0 Immature Granulocytes # 0.030 Neutrophils # 4.1 Lymphocytes # 1.9 Monocytes # 0.7 Eosinophils # 0.5 Basophils # 0.1 Nucleated Red Blood Cells # 0.0 Sodium Level 138 Potassium Level 5.8 H Chloride Level 94 L Carbon Dioxide Level 23 Anion Gap 21 H Blood Urea Nitrogen 64 H Creatinine 8.34 H Est Glomerular Filtrat Rate mL/min 5 L Glucose Level 73 Calcium Level 8.8 Home Meds Reported Medications Sevelamer Hcl* (Renagel*) 800 Mg Tablet, 800 MG PO WITH MEALS, TAB 05/14/18 Medications Current Medications Albumin Human 100 ml @ 100 mls/hr WITH DIALYSIS PRN IV SBP <90 DURING DIALYSIS Last administered on 10/24/18 21:00; Admin Dose 100 MLS/HR; Start 10/24/18 at 18:00 Sodium Chloride 250 ml @ 250 mls/hr Q1H PRN IV tachycardia Last administered on 11/10/18 09:39; Admin Dose 250 MLS/HR; Start 10/25/18 at 01:00 Acetaminophen (Tylenol Tab) 650 mg Q4 PRN PO FEVER Last administered on 11/08/18 18:01; Admin Dose 650 MG; Start 10/25/18 at 01:00 Sevelamer Carbonate (Renvela) 800 mg WITH MEALS PO Last administered on 11/14/18 11:49; Admin Dose 800 MG; Start 10/25/18 at 07:35 Midodrine (Proamatine) 5 mg TID@09,13,17 PO Last administered on 11/14/18 17:32; Admin Dose 5 MG; Start 10/26/18 at 09:00 Lidocaine (Xylocaine 1% (Mdv) 20 ml) 1 ml WITH DIALYSIS PRN INJ PRIOR TO CANULLATION/HD; Start 10/26/18 at 12:30 Ondansetron HCl (Zofran Inj) 4 mg Q4H PRN IV NAUSEA AND/OR VOMITING Last administered on 11/14/18 08:16; Admin Dose 4 MG; Start 10/26/18 at 15:30 Oxacillin Sodium 2 gm/Sodium Chloride 50 ml @ 100 mls/hr Q6 IVPB Last ad ministered on 11/15/18 06:07; Admin Dose 100 MLS/HR; Start 10/30/18 at 18:00 Mupirocin (Bactroban) 1 applic BID TOP Last administered on 11/14/18at 21:16; Admin Dose 1 APPLIC; Start 11/02/18 at 13:30 Heparin Sodium (Porcine) (Heparin (1000 Units/ml)) 6,100 unit AFTER DIALYSIS PRN CATHETER DIALYSIS Last administered on 11/12/18at 12:57; Admin Dose 6,100 UNIT; Start 11/07/18 at 14:00 Morphine Sulfate (morphine) 3 mg Q4H PRN IV SEVERE PAIN LEVEL 7-10 Last administered on 11/15/18at 06:08; Admin Dose 3 MG; Start 11/08/18 at 19:30 Diphenhydramine HCl (Benadryl) 25 mg Q4H PRN IV ALLERGIC REACTION Last administered on 11/15/18at 06:07; Admin Dose 25 MG; Start 11/09/18 at 09:00 Metoprolol Tartrate (Lopressor) 5 mg Q4H PRN IV HR>110 Hold SBP<100 Last administered on 11/12/18at 11:52; Admin Dose 5 MG; Start 11/09/18 at 14:30 Epoetin Maxwell-epbx (Retacrit (Esrd)) 6,000 unit We@1700 SC ; Start 11/16/18 at 17:00 Assessment/Plan Hospital Course (Demo Recall) 1. Bacteremia, assess for endocarditis, intracardiac source of infection. s/p AMANDA 11/04 with no definite signs intracardiac infection - on therapy now - with low BP, but no true Sx - con;t to monitor now 2. Abnormal electrocardiogram with lateral T-wave inversion- r/o mI - no CP. 3. Hypertension, mainly diastolic labile, currently improved - better with HD - Rx with renal team. 4. Leukemia - oncology follows. 5. Anemia - no bleeding now - Hg 12.6 6. Initial hypotension. Initially with midodrine- somewhat labile but not requiring midodrine 7. Tachycardia-S tach now improved, started after HD yesterday. Still has with ambulation. ? relative volume depletion 8. ESRD on HD s/p new R femoral HD catheter - HD now. YUMIKO HO MD Nov 15, 2018 09:19
[2018-11-15] MEDS: SEVELAMER CARBONATE 800 MG TABLET PO SCH ×3 (09:25→18:02)
[2018-11-15] MEDS: MUPIROCIN 2% 22 GM OINT TOP SCH ×2 (09:26→21:14)
[2018-11-15] MEDS: MIDODRINE 5 MG TAB PO SCH ×3 (09:26→18:02)
--- NOTE | 2018-11-15 10:33 | CONS ---
Assessment/Plan Assessment/Plan Assessment/Plan (Daily) 1. Septic shock s/p Levophed - now resolved 2. ESRD on HD MWF schedule , left femoral permacath for HD access 3. Bacteremia with Blood cx growing staph aureus -s/p removal of left permacath on 11/04/18- pt remained line free for 3 days then insertion of Right groin permacath on 11/07/18 which is removed due to hematoma around catheter site then pt subsequently had a new permacath placemen ton left groin on 11/10/18 4. H/o Leukemia currently on chemotherapy, last chem on 10/21/18 5. H/o Primary hyperparathyroidism, status post complete parathyroidectomy and partial left thyroid lobectomy 2 years ago. 6. H/o Anemia of ESRD 7, Difficult vascular Access 8. anemia of ESRD Plan: s/p Removal of Right groin permacath,due to pericatheter hematoma, now s/p left groin permacath placement- yesterday poor flow through catheter, tPA placed Post HD- will check tomorrow if catheter works good pt will be on MWF schedule- HD ordered for wednesday , will give Kayexalate 30 gram PO x1 dose today for hyperkalemia staph aureus bacteremia - IV abx oxacillin 2 gram IV Q 6 hr - ID following Continue other home medications, Midodrine 5 mg PO TID for BP support - Epogen 6000 units Q week will follow up Consultation Date/Type/Reason Admit Date/Time Oct 25, 2018 at 04:13 Initial Consult Date Type of Consult NEPHROLOGY Requesting Provider: LUANNE WALTER MD Date/Time of Note DATE: 11/15/18 TIME: 10:33 24 HR Interval Summary Free Text/Dictation K 5.8 today Exam/Review of Systems Exam Vitals Vital Signs Date Temp Pulse Resp B/P (MAP) Pulse Ox O2 O2 Flow FiO2 Time Delivery Rate 11/15/18 Nasal 2.0 07:20 Cannula 11/15/18 97.9 100 17 91/62 (72) 100 07:09 Intake and Output 11/14/18 11/14/18 11/15/18 1515:00 23:00 07:00 IntakeIntake Total 50 ml 50 ml OutputOutput Total 3600 ml BalanceBalance -3550 ml 50 ml Exam Constitutional: alert, awake, no acute distress Respiratory: clear to auscultation Cardiovascular: regular rate and rhythm Gastrointestinal: soft, non-tender Musculoskeletal: nl extremities to inspection Extremities: normal pulses 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: nl mental status Additional Comments Left femoral hemodialysis catheter, left upper extremity AV fistula nonfunctional Results Result Diagram: 11/15/1851 11/15/18 0551 Results 24hrs Laboratory Tests Test 11/15/18 05:51 White Blood Count 7.4 Red Blood Count 3.95 L Hemoglobin 12.6 Hematocrit 40.4 Mean Corpuscular Volume 102.3 H Mean Corpuscular Hemoglobin 31.9 Mean Corpuscular Hemoglobin Concent 31.2 L Red Cell Distribution Width 18.0 H Platelet Count 227 Mean Platelet Volume 11.5 H Immature Granulocytes % 0.400 Neutrophils % 56.2 Lymphocytes % 26.3 Monocytes % 9.4 Eosinophils % 6.3 Basophils % 1.4 Nucleated Red Blood Cells % 0.0 Immature Granulocytes # 0.030 Neutrophils # 4.1 Lymphocytes # 1.9 Monocytes # 0.7 Eosinophils # 0.5 Basophils # 0.1 Nucleated Red Blood Cells # 0.0 Sodium Level 138 Potassium Level 5.8 H Chloride Level 94 L Carbon Dioxide Level 23 Anion Gap 21 H Blood Urea Nitrogen 64 H Creatinine 8.34 H Est Glomerular Filtrat Rate mL/min 5 L Glucose Level 73 Calcium Level 8.8 Medications Medication Current Medications Albumin Human 100 ml @ 100 mls/hr WITH DIALYSIS PRN IV SBP <90 DURING DIALYSIS Last administered on 10/24/18at 21:00; Admin Dose 100 MLS/HR; Start 10/24/18 at 18:00 Sodium Chloride 250 ml @ 250 mls/hr Q1H PRN IV tachycardia Last administered on 11/10/18at 09:39; Admin Dose 250 MLS/HR; Start 10/25/18 at 01:00 Acetaminophen (Tylenol Tab) 650 mg Q4 PRN PO FEVER Last administered on 10/24 10/12at 18:01; Admin Dose 650 MG; Start 10/25/18 at 01:00 Sevelamer Carbonate (Renvela) 800 mg WITH MEALS PO Last administered on 11/15/18at 09:25; Admin Dose 800 MG; Start 10/25/18 at 07:35 Midodrine (Proamatine) 5 mg TID@,13,17 PO Last administered on 11/15/18 09:26; Admin Dose 5 MG; Start 10/26/18 at 09:00 Lidocaine (Xylocaine 1% (Mdv) 20 ml) 1 ml WITH DIALYSIS PRN INJ PRIOR TO CANULLATION/HD; Start 10/26/18 at 12:30 Ondansetron HCl (Zofran Inj) 4 mg Q4H PRN IV NAUSEA AND/OR VOMITING Last ad ministered on 11/14/18 08:16; Admin Dose 4 MG; Start 10/26/18 at 15:30 Oxacillin Sodium 2 gm/Sodium Chloride 50 ml @ 100 mls/hr Q6 IVPB Last administered on 11/15/18 06:07; Admin Dose 100 MLS/HR; Start 10/30/18 at 18:00 Mupirocin (Bactroban) 1 applic BID TOP Last administered on 11/15/18 09:26; Admin Dose 1 APPLIC; Start 11/02/18 at 13:30 Heparin Sodium (Porcine) (Heparin (1000 Units/ml)) 6,100 unit AFTER DIALYSIS PRN CATHETER DIALYSIS Last administered on 11/12/18 12:57; Admin Dose 6,100 UNIT; Start 11/07/18 at 14:00 Morphine Sulfate (morphine) 3 mg Q4H PRN IV SEVERE PAIN LEVEL 7-10 Last administered on 11/15/18 10:05; Admin Dose 3 MG; Start 11/08/18 at 19:30 Diphenhydramine HCl (Benadryl) 25 mg Q4H PRN IV ALLERGIC REACTION Last administered on 11/15/18 10:05; Admin Dose 25 MG; Start 11/09/18 at 09:00 Metoprolol Tartrate (Lopressor) 5 mg Q4H PRN IV HR>110 Hold SBP<100 Last ad ministered on 11/12/18 11:52; Admin Dose 5 MG; Start 11/09/18 at 14:30 Epoetin Maxwell-epbx (Retacrit (Esrd)) 6,000 unit We@1700 SC ; Start 11/16/18 at 17:00 HENRIQUE GRANADO MD Nov 15, 2018 10:33
--- NOTE | 2018-11-15 13:07 | CONS ---
Assessment/Plan Assessment/Plan Hospital Course (Demo Recall) # sepsis, heme/onc - s/p sepsis due to bacteremia, recurrent. Resolved - s/p persistent and recurrent bacteremia on 10/24, 10/25, and 10/26 due to MSSA; repeat blood cultures on 10/28 & 11/02 were negative; transthoracic echo did not mention vegetation; AMANDA showed no vegetation - the source of her bacteremia was her HD catheter. No other focus of infection was found: WBC tagged scan on 11/05/2018 showed several non-specific foci of increased activity along R anterior chest wall;however, chest CT on 11/07/2018 showed no fluid collection identified within the chest wall. 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 Per Pt, she had pruritus, "bumps" and green discharge from the catheter site. Its culture on 10/31/2018 grew S. aureus. It was removed on 11/04/2018 - s/p placement of an HD catheter on R groin on 11/07/2018-->removed on 11/10/18 - s/p placement of an HD catheter on L groin on 11/10/2018 - soft tissue CHRISTEL of b/l groin on 11/10/2018 did not show hematoma or active signs of bleeding or abscess - h/o removal of permacath on R chest wall on 07/14/2018 - h/o R femoral HD justin catheter placement 07/14/2018, replaced by HD permacath 07/19/2018 - h/o pain/increased sensitivity of R groin after replacement of the Perez with permacath. soft tissue CHRISTEL on 07/20/2018 showed no abnormality at the site of the palpable lesion adjacent to R inguinal region HD catheter - h/o swelling on the scalp and chest wall, possibly due to collateral veins as a result of thrombosis of AVF - h/o removal and placement of a new Perez catheter in 05/2018. The culture of the tip of the removed catheter, blood cultures and swab of the catheter site were negative. Pt completed an empiric course of renally dosed pip/tazo (06/13/2018-06/18/2018) - h/o placement of a permacath on R chest wall on 06/23/2018 - h/o creation of AVF in [facility] [place] [place] in 2016 - thrombosed L brachiocephalic AV fistula, 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 Last used for HD in 04/2018. Was scheduled to get a new graft in [facility] [place] [place] as outpatient - h/o 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 Pt took renally dosed valACV (07/15/2018-07/17/2018) - adverse reaction to vancomycin (pruritus) - adverse reaction to linezolid (thrombocytopenia). Linezolid was discontinued (06/12/2018-06/17/2018) - ?adverse reaction to cefazolin (severe abd pain/cramping, although pt tolerated a 14 day course of cefazolin in 06/2018) - painful nodule on L thumb; X-ray shows possible subcutaneous mass adjacent to the radial aspect of the first metacarpal. Recommendations: - I reviewed Pt's rhythm on the monitor with charge nurse for the last 24hrs and did not see recorded HR of 170s as described by Pt. Cardiology consult team has been following this Pt - for her complaints of persistent swelling and pain of b/l groin, if possible, I recommend that her IR specialist evaluate the effected areas - continue renally dosed oxacillin 2gm IV q6 hours (10/30/2018-) for 2 weeks after removal of her HD catheter, i.e. 7/12/19-11/18/18 management d/w Pt, her family members, RN Lencho, charge nurse Jacinto and BIRD RAISER Nikita the total time I took to care for this Pt today was from 1220 to 1305 Consultation Date/Type/Reason Admit Date/Time Oct 25, 2018 at 04:13 Initial Consult Date 10/25/18 Type of Consult ID Requesting Provider: LUANNE WALTER MD Date/Time of Note DATE: 11/15/18 TIME: 12:55 24 HR Interval Summary Constitutional: improved Detailed Summary Eyes: no complaints ENT: no complaints Respiratory: no complaints Cardiovascular: other (she report that her HR was in "170s" yesterday) Gastrointestinal: no complaints Genitourinary: other (anuric) Musculoskeletal: other (c/o pain and swelling of b/l groin) Skin: skin lesions (comedomes on the face) Neurologic: no complaints Exam/Review of Systems Exam Vitals Vital Signs Date Temp Pulse Resp B/P (MAP) Pulse Ox O2 O2 Flow FiO2 Time Delivery Rate 11/15/18 97.7 87 18 119/87 100 11:21 (98) 11/15/18 Nasal 2.0 07:20 Cannula Intake and Output 11/14/18 11/14/18 11/15/18 1515:00 23:00 07:00 IntakeIntake Total 50 ml 50 ml OutputOutput Total 3600 ml BalanceBalance -3550 ml 50 ml Constitutional: alert Psych: no complaints, nl mood/affect Head: normocephalic, atraumatic, other (alopecia) Eyes: nl conjunctiva, nl lids ENMT: nl external ears & nose, nl nasal mucosa & septum Neck: non-tender Respiratory: clear to auscultation, normal air movement Cardiovascular: other (tachycardic and regular) Gastrointestinal: soft; No distended, No tender Musculoskeletal: other (b/l groin is mildly swollen but not indurated, not fluctuant. +suoerficial bruise of L groin. No bleeding from b/l groin) Extremities: No edema 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: ADDICTION NURSE II-XII intact, nl mental status, nl speech Skin: nl turgor Results Result Diagram: 11/15/18 0551 11/15/18 0551 Results 24hrs Laboratory Tests Test 11/15/18 05:51 White Blood Count 7.4 Red Blood Count 3.95 L Hemoglobin 12.6 Hematocrit 40.4 Mean Corpuscular Volume 102.3 H Mean Corpuscular Hemoglobin 31.9 Mean Corpuscular Hemoglobin Concent 31.2 L Red Cell Distribution Width 18.0 H Platelet Count 227 Mean Platelet Volume 11.5 H Immature Granulocytes % 0.400 Neutrophils % 56.2 Lymphocytes % 26.3 Monocytes % 9.4 Eosinophils % 6.3 Basophils % 1.4 Nucleated Red Blood Cells % 0.0 Immature Granulocytes # 0.030 Neutrophils # 4.1 Lymphocytes # 1.9 Monocytes # 0.7 Eosinophils # 0.5 Basophils # 0.1 Nucleated Red Blood Cells # 0.0 Sodium Level 138 Potassium Level 5.8 H Chloride Level 94 L Carbon Dioxide Level 23 Anion Gap 21 H Blood Urea Nitrogen 64 H Creatinine 8.34 H Est Glomerular Filtrat Rate mL/min 5 L Glucose Level 73 Calcium Level 8.8 Medications Medication Current Medications Albumin Human 100 ml @ 100 mls/hr WITH DIALYSIS PRN IV SBP <90 DURING DIALYSIS Last administered on 10/24/18at 21:00; Admin Dose 100 MLS/HR; Start 10/24/18 at 18:00 Sodium Chloride 250 ml @ 250 mls/hr Q1H PRN IV tachycardia Last administered on 11/10/18at 09:39; Admin Dose 250 MLS/HR; Start 10/25/18 at 01:00 Acetaminophen (Tylenol Tab) 650 mg Q4 PRN PO FEVER Last administered on 11/08/18 18:01; Admin Dose 650 MG; Start 10/25/18 at 01:00 Sevelamer Carbonate (Renvela) 800 mg WITH MEALS PO Last administered on 11/15/18at 09:25; Admin Dose 800 MG; Start 10/25/18 at 07:35 Midodrine (Proamatine) 5 mg TID@09,13,17 PO Last administered on 11/15/18 09:26; Admin Dose 5 MG; Start 10/26/18 at 09:00 Lidocaine (Xylocaine 1% (Mdv) 20 ml) 1 ml WITH DIALYSIS PRN INJ PRIOR TO CANULLATION/HD; Start 10/26/18 at 12:30 Ondansetron HCl (Zofran Inj) 4 mg Q4H PRN IV NAUSEA AND/OR VOMITING Last administered on 11/14/18 08:16; Admin Dose 4 MG; Start 10/26/18 at 15:30 Oxacillin Sodium 2 gm/Sodium Chloride 50 ml @ 100 mls/hr Q6 IVPB Last administered on 11/15/18 06:07; Admin Dose 100 MLS/HR; Start 10/30/18 at 18:00 Mupirocin (Bactroban) 1 applic BID TOP Last administered on 11/15/18 09:26; Admin Dose 1 APPLIC; Start 11/02/18 at 13:30 Heparin Sodium (Porcine) (Heparin (1000 Units/ml)) 6,100 unit AFTER DIALYSIS PRN CATHETER DIALYSIS Last administered on 11/12/18 12:57; Admin Dose 6,100 UNIT; Start 11/07/18 at 14:00 Morphine Sulfate (morphine) 3 mg Q4H PRN IV SEVERE PAIN LEVEL 7-10 Last administered on 11/15/18 10:05; Admin Dose 3 MG; Start 11/08/18 at 19:30 Diphenhydramine HCl (Benadryl) 25 mg Q4H PRN IV ALLERGIC REACTION Last administered on 11/15/18 10:05; Admin Dose 25 MG; Start 11/09/18 at 09:00 Metoprolol Tartrate (Lopressor) 5 mg Q4H PRN IV HR>110 Hold SBP<100 Last administered on 11/12/18 11:52; Admin Dose 5 MG; Start 11/09/18 at 14:30 Epoetin Maxwell-epbx (Retacrit (Esrd)) 6,000 unit We@1700 SC ; Start 11/16/18 at 17:00 GINGER HARDIN M.D. Nov 15, 2018 13:06
[2018-11-15] MEDS ORDERED: NA POLYST SULFON 15 GM/60 ML BTL PO ONE (14:00)
--- NOTE | 2018-11-15 15:07 | PN ---
Date/Time of Note Date/Time of Note DATE: 11/15/18 TIME: 15:04 Assessment/Plan VTE Prophylaxis Risk score (from [facility] [place])>0 risk: 2 SCD applied (from [facility] [place]): No SCD contraindicated: bilateral LE trauma Pharmacological prophylaxis: NA/contraindicated Pharm contraindication: bleeding Lines/Catheters [facility]from [facility] Mid Line Central line still needed: Yes Urinary Cath still in place: No Assessment/Plan Hospital Course Patient with episode of tachycardia and agitation yesterday requiring fluid boluses currently patient is calm, heart rate is stable sinus rhythm. Patient complains of a bilateral femoral tenderness, ultrasound is negative for hematoma fluid collection, patient has a slight bruising from bilateral hemodialysis catheter insertion, able to underwent hemodialysis through left femoral catheter continue supportive care, bedrest. Assessment/Plan -Sepsis with DIMITRI bacteremia with fevers, leukocytosis, and hypotension. patient is currently continued on oxacillin 2 g every 6 hours Continue antibiotics per ID. Dr. Arora is following in ID consultation. AMANDA is negative for vegetation. Dr. Barrera is following in cardiology consultation. -Hemodialysis dependent end-stage renal disease, continue dialysis per nephrology. Dr. Beltran is following in nephrology consultation. -Leukemia, patient is undergoing chemotherapy last chemo was on Wednesday10/11/18. -Anemia multifactorial chronic disease and recent chemo, status post blood transfusion, continue to monitor H&H, continue Epogen. -Mineral bone disease with renal osteodystrophy. No acute fractures, traumatic subluxations, osteomyelitis or diskitis per MRI of the lumbar spine. -Primary hyperparathyroidism, status post complete parathyroidectomy and partial left thyroid lobectomy 2 years ago. -Left femoral hemodialysis catheter present on admission. Further recommendations based on clinical course. Plan of care discussed with Dr. Turner. Result Diagram: 11/15/18 0551 11/15/18 0551 Results 24hrs Laboratory Tests Test 11/15/18 05:51 White Blood Count 7.4 Red Blood Count 3.95 L Hemoglobin 12.6 Hematocrit 40.4 Mean Corpuscular Volume 102.3 H Mean Corpuscular Hemoglobin 31.9 Mean Corpuscular Hemoglobin Concent 31.2 L Red Cell Distribution Width 18.0 H Platelet Count 227 Mean Platelet Volume 11.5 H Immature Granulocytes % 0.400 Neutrophils % 56.2 Lymphocytes % 26.3 Monocytes % 9.4 Eosinophils % 6.3 Basophils % 1.4 Nucleated Red Blood Cells % 0.0 Immature Granulocytes # 0.030 Neutrophils # 4.1 Lymphocytes # 1.9 Monocytes # 0.7 Eosinophils # 0.5 Basophils # 0.1 Nucleated Red Blood Cells # 0.0 Sodium Level 138 Potassium Level 5.8 H Chloride Level 94 L Carbon Dioxide Level 23 Anion Gap 21 H Blood Urea Nitrogen 64 H Creatinine 8.34 H Est Glomerular Filtrat Rate mL/min 5 L Glucose Level 73 Calcium Level 8.8 Exam/Review of Systems Exam Vitals Vital Signs Date Temp Pulse Resp B/P (MAP) Pulse Ox O2 O2 Flow FiO2 Time Delivery Rate 11/15/18 97.7 87 18 119/87 100 11:21 (98) 11/15/18 Nasal 2.0 07:20 Cannula Intake and Output 11/14/18 11/14/18 11/15/18 1515:00 23:00 07:00 IntakeIntake Total 50 ml 50 ml OutputOutput Total 3600 ml BalanceBalance -3550 ml 50 ml Exam Constitutional: alert Respiratory: clear to auscultation Cardiovascular: regular rate and rhythm Gastrointestinal: soft, non-tender Musculoskeletal: nl extremities to inspection Extremities: normal pulses 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: nl mental status Skin: nl turgor Additional Comments Left femoral hemodialysis catheter, left upper extremity AV fistula nonfunctional Results Results 24hrs Laboratory Tests Test 11/15/18 05:51 White Blood Count 7.4 Red Blood Count 3.95 L Hemoglobin 12.6 Hematocrit 40.4 Mean Corpuscular Volume 102.3 H Mean Corpuscular Hemoglobin 31.9 Mean Corpuscular Hemoglobin Concent 31.2 L Red Cell Distribution Width 18.0 H Platelet Count 227 Mean Platelet Volume 11.5 H Immature Granulocytes % 0.400 Neutrophils % 56.2 Lymphocytes % 26.3 Monocytes % 9.4 Eosinophils % 6.3 Basophils % 1.4 Nucleated Red Blood Cells % 0.0 Immature Granulocytes # 0.030 Neutrophils # 4.1 Lymphocytes # 1.9 Monocytes # 0.7 Eosinophils # 0.5 Basophils # 0.1 Nucleated Red Blood Cells # 0.0 Sodium Level 138 Potassium Level 5.8 H Chloride Level 94 L Carbon Dioxide Level 23 Anion Gap 21 H Blood Urea Nitrogen 64 H Creatinine 8.34 H Est Glomerular Filtrat Rate mL/min 5 L Glucose Level 73 Calcium Level 8.8 Medications Medication Current Medications Albumin Human 100 ml @ 100 mls/hr WITH DIALYSIS PRN IV SBP <90 DURING DIALYSIS Last administered on 10/24/18 21:00; Admin Dose 100 MLS/HR; Start 10/24/18 at 18:00 Sodium Chloride 250 ml @ 250 mls/hr Q1H PRN IV tachycardia Last administered on 11/10/18 09:39; Admin Dose 250 MLS/HR; Start 10/25/18 at 01:00 Acetaminophen (Tylenol Tab) 650 mg Q4 PRN PO FEVER Last administered on 11/08/18 18:01; Admin Dose 650 MG; Start 10/25/18 at 01:00 Sevelamer Carbonate (Renvela) 800 mg WITH MEALS PO Last administered on 11/15/18 14:05; Admin Dose 800 MG; Start 10/25/18 at 07:35 Midodrine (Proamatine) 5 mg TID@09,13,17 PO Last administered on 11/15/18 14:06; Admin Dose 5 MG; Start 10/26/18 at 09:00 Lidocaine (Xylocaine 1% (Mdv) 20 ml) 1 ml WITH DIALYSIS PRN INJ PRIOR TO CANULLATION/HD; Start 10/26/18 at 12:30 Ondansetron HCl (Zofran Inj) 4 mg Q4H PRN IV NAUSEA AND/OR VOMITING Last administered on 11/14/18 08:16; Admin Dose 4 MG; Start 10/26/18 at 15:30 Oxacillin Sodium 2 gm/Sodium Chloride 50 ml @ 100 mls/hr Q6 IVPB Last administered on 11/15/18 14:05; Admin Dose 100 MLS/HR; Start 10/30/18 at 18:00 Mupirocin (Bactroban) 1 applic BID TOP Last administered on 11/15/18 09:26; Admin Dose 1 APPLIC; Start 11/02/18 at 13:30 Heparin Sodium (Porcine) (Heparin (1000 Units/ml)) 6,100 unit AFTER DIALYSIS PRN CATHETER DIALYSIS Last administered on 11/12/18 12:57; Admin Dose 6,100 UNIT; Start 11/07/18 at 14:00 Morphine Sulfate (morphine) 3 mg Q4H PRN IV SEVERE PAIN LEVEL 7-10 Last administered on 11/15/18 14:06; Admin Dose 3 MG; Start 11/08/18 at 19:30 Diphenhydramine HCl (Benadryl) 25 mg Q4H PRN IV ALLERGIC REACTION Last administered on 11/15/18at 14:06; Admin Dose 25 MG; Start 11/09/18 at 09:00 Metoprolol Tartrate (Lopressor) 5 mg Q4H PRN IV HR>110 Hold SBP<100 Last administered on 11/12/18at 11:52; Admin Dose 5 MG; Start 11/09/18 at 14:30 Epoetin Maxwell-epbx (Retacrit (Esrd)) 6,000 unit We@1700 SC ; Start 11/16/18 at 17:00 ERICK ROBERTSON Nov 15, 2018 15:07
[2018-11-16] VITALS (21 sets, daily range): BP systolic 86–132; BP diastolic 46–95; PULSE 75–118; RESP 17–20
[2018-11-16] MEDS: OXACILLIN 2 GM in SOD CHLORIDE 0.9% 50 ML IVPB SCH ×5 (00:35→18:15)
[2018-11-16] MEDS: DIPHENHYDRAMINE 50 MG INJ IV PRN ×6 (02:13→22:18)
[2018-11-16] MEDS: morphine 4 MG/ML VIAL IV PRN ×6 (02:14→22:18)
[2018-11-16] MEDS: SEVELAMER CARBONATE 800 MG TABLET PO SCH ×3 (08:09→17:32)
[2018-11-16] MEDS: MIDODRINE 5 MG TAB PO SCH ×3 (08:09→17:32)
[2018-11-16] MEDS: MUPIROCIN 2% 22 GM OINT TOP SCH ×2 (08:09→21:56)
--- NOTE | 2018-11-16 12:46 | PN ---
Date/Time of Note Date/Time of Note DATE: 11/16/18 TIME: 12:30 Assessment/Plan VTE Prophylaxis Risk score (from [facility])>0 risk: 5 SCD applied (from [facility]): No SCD contraindicated: bilateral LE trauma Pharmacological prophylaxis: NA/contraindicated Pharm contraindication: bleeding, anticoag not tolerated Lines/Catheters [facility] HD CATHETER Central line still needed: Yes Urinary Cath still in place: No Assessment/Plan Hospital Course Patient is undergoing hemodialysis through a left groin catheter, potassium is 6, patient heart rate is well controlled patient is calm not agitated. She is complains of the right groin pain and swelling especially gets worse with getting out of bed. I talked to Dr. Steele, interventional radiology re pt's symptoms, will obtain ultrasound of the right groin. Assessment/Plan -Hyperkalemia, status post Kayexalate yesterday, continue hemodialysis per nephrology. -Sepsis with DIMITRI bacteremia with fevers, leukocytosis, and hypotension. patient is currently continued on oxacillin 2 g every 6 hours until 11/[address] Arora is following in ID consultation. AMANDA is negative for vegetation. Dr. Barrera is following in cardiology consultation. -Hemodialysis dependent end-stage renal disease, continue dialysis per nephrology. Dr. Beltran is following in nephrology consultation. -Leukemia, patient is undergoing chemotherapy last chemo was on Wednesday10/11/18. -Anemia multifactorial chronic disease and recent chemo, status post blood transfusion, continue to monitor H&H, continue Epogen. -Mineral bone disease with renal osteodystrophy. No acute fractures, traumatic subluxations, osteomyelitis or diskitis per MRI of the lumbar spine. -Primary hyperparathyroidism, status post complete parathyroidectomy and partial left thyroid lobectomy 2 years ago. -Left femoral hemodialysis catheter present on admission. Further recommendations based on clinical course. Plan of care discussed with Dr. Turner. Result Diagram: 11/16/18 0602 11/16/18 0602 Results 24hrs Laboratory Tests Test 11/16/18 06:02 White Blood Count 7.3 Red Blood Count 3.73 L Hemoglobin 11.9 L Hematocrit 37.9 Mean Corpuscular Volume 101.6 H Mean Corpuscular Hemoglobin 31.9 Mean Corpuscular Hemoglobin Concent 31.4 L Red Cell Distribution Width 17.6 H Platelet Count 246 Mean Platelet Volume 11.3 H Immature Granulocytes % 0.300 Neutrophils % 57.8 Lymphocytes % 22.5 Monocytes % 9.1 Eosinophils % 9.3 H Basophils % 1.0 Nucleated Red Blood Cells % 0.0 Immature Granulocytes # 0.020 Neutrophils # 4.3 Lymphocytes # 1.7 Monocytes # 0.7 Eosinophils # 0.7 H Basophils # 0.1 Nucleated Red Blood Cells # 0.0 Sodium Level 139 Potassium Level 6.0 H Chloride Level 94 L Carbon Dioxide Level 23 Anion Gap 22 H Blood Urea Nitrogen 87 H Creatinine 10.73 #H Est Glomerular Filtrat Rate mL/min 4 L Glucose Level 66 L Calcium Level 8.5 Magnesium Level 3.5 H Total Bilirubin 0.1 L Direct Bilirubin 0.00 Indirect Bilirubin 0.1 Aspartate Amino Transf (AST/SGOT) 73 H Alanine Aminotransferase (ALT/SGPT) 83 H Alkaline Phosphatase 100 Total Protein 7.8 Albumin 4.2 Globulin 3.60 H Albumin/Globulin Ratio 1.16 Exam/Review of Systems Exam Vitals Vital Signs Date Temp Pulse Resp B/P (MAP) Pulse Ox O2 O2 Flow FiO2 Time Delivery Rate 11/16/18 80 12:15 11/16/18 97.6 18 121/89 100 11:20 (100) 11/16/18 Nasal 11:15 Cannula 11/16/18 2.0 08:00 Intake and Output 11/15/18 11/15/18 11/16/18 1515:00 23:00 07:00 IntakeIntake Total 350 ml 590 ml 800 ml BalanceBalance 350 ml 590 ml 800 ml Exam Constitutional: alert Respiratory: clear to auscultation Cardiovascular: regular rate and rhythm Gastrointestinal: soft, non-tender Musculoskeletal: nl extremities to inspection Extremities: normal pulses 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: nl mental status Skin: nl turgor Additional Comments Left femoral hemodialysis catheter, left upper extremity AV fistula nonfunctional Results Results 24hrs Laboratory Tests Test 11/16/18 06:02 White Blood Count 7.3 Red Blood Count 3.73 L Hemoglobin 11.9 L Hematocrit 37.9 Mean Corpuscular Volume 101.6 H Mean Corpuscular Hemoglobin 31.9 Mean Corpuscular Hemoglobin Concent 31.4 L Red Cell Distribution Width 17.6 H Platelet Count 246 Mean Platelet Volume 11.3 H Immature Granulocytes % 0.300 Neutrophils % 57.8 Lymphocytes % 22.5 Monocytes % 9.1 Eosinophils % 9.3 H Basophils % 1.0 Nucleated Red Blood Cells % 0.0 Immature Granulocytes # 0.020 Neutrophils # 4.3 Lymphocytes # 1.7 Monocytes # 0.7 Eosinophils # 0.7 H Basophils # 0.1 Nucleated Red Blood Cells # 0.0 Sodium Level 139 Potassium Level 6.0 H Chloride Level 94 L Carbon Dioxide Level 23 Anion Gap 22 H Blood Urea Nitrogen 87 H Creatinine 10.73 #H Est Glomerular Filtrat Rate mL/min 4 L Glucose Level 66 L Calcium Level 8.5 Magnesium Level 3.5 H Total Bilirubin 0.1 L Direct Bilirubin 0.00 Indirect Bilirubin 0.1 Aspartate Amino Transf (AST/SGOT) 73 H Alanine Aminotransferase (ALT/SGPT) 83 H Alkaline Phosphatase 100 Total Protein 7.8 Albumin 4.2 Globulin 3.60 H Albumin/Globulin Ratio 1.16 Medications Medication Current Medications Albumin Human 100 ml @ 100 mls/hr WITH DIALYSIS PRN IV SBP <90 DURING DIALYSIS Last administered on 10/24/18 21:00; Admin Dose 100 MLS/HR; Start 10/24/18 at 18:00 Sodium Chloride 250 ml @ 250 mls/hr Q1H PRN IV tachycardia Last administered on 11/10/18 09:39; Admin Dose 250 MLS/HR; Start 10/25/18 at 01:00 Acetaminophen (Tylenol Tab) 650 mg Q4 PRN PO FEVER Last administered on 11/08/18 18:01; Admin Dose 650 MG; Start 10/25/18 at 01:00 Sevelamer Carbonate (Renvela) 800 mg WITH MEALS PO Last administered on 11/16/18 11:58; Admin Dose 800 MG; Start 10/25/18 at 07:35 Midodrine (Proamatine) 5 mg TID@09,13,17 PO Last administered on 11/16/18 12:21; Admin Dose 5 MG; Start 10/26/18 at 09:00 Lidocaine (Xylocaine 1% (Mdv) 20 ml) 1 ml WITH DIALYSIS PRN INJ PRIOR TO CANULLATION/HD; Start 10/26/18 at 12:30 Ondansetron HCl (Zofran Inj) 4 mg Q4H PRN IV NAUSEA AND/OR VOMITING Last administered on 11/14/18 08:16; Admin Dose 4 MG; Start 10/26/18 at 15:30 Oxacillin Sodium 2 gm/Sodium Chloride 50 ml @ 100 mls/hr Q6 IVPB Last administered on 11/16/18 06:07; Admin Dose 100 MLS/HR; Start 10/30/18 at 18:00 Mupirocin (Bactroban) 1 applic BID TOP Last administered on 11/16/18 08:09; Admin Dose 1 APPLIC; Start 11/02/18 at 13:30 Heparin Sodium (Porcine) (Heparin (1000 Units/ml)) 6,100 unit AFTER DIALYSIS PRN CATHETER DIALYSIS Last administered on 11/12/18 12:57; Admin Dose 6,100 UNIT; Start 11/07/18 at 14:00 Morphine Sulfate (morphine) 3 mg Q4H PRN IV SEVERE PAIN LEVEL 7-10 Last administered on 11/16/18 10:09; Admin Dose 3 MG; Start 11/08/18 at 19:30 Diphenhydramine HCl (Benadryl) 25 mg Q4H PRN IV ALLERGIC REACTION Last administered on 11/16/18 10:09; Admin Dose 25 MG; Start 11/09/18 at 09:00 Metoprolol Tartrate (Lopressor) 5 mg Q4H PRN IV HR>110 Hold SBP<100 Last administered on 11/12/18 11:52; Admin Dose 5 MG; Start 11/09/18 at 14:30 Epoetin Maxwell-epbx (Retacrit (Esrd)) 6,000 unit We@1700 SC ; Start 11/16/18 at 17:00 ERICK ROBERTSON Nov 16, 2018 12:41
--- NOTE | 2018-11-16 13:13 | CONS ---
Assessment/Plan Assessment/Plan Assessment/Plan (Daily) 1. Septic shock s/p Levophed - now resolved 2. ESRD on HD MWF schedule , left femoral permacath for HD access 3. Bacteremia with Blood cx growing staph aureus -s/p removal of left permacath on 11/04/18- pt remained line free for 3 days then insertion of Right groin permacath on 11/07/18 which is removed due to hematoma around catheter site then pt subsequently had a new permacath placemen ton left groin on 11/10/18 4. H/o Leukemia currently on chemotherapy, last chem on 10/21/18 5. H/o Primary hyperparathyroidism, status post complete parathyroidectomy and partial left thyroid lobectomy 2 years ago. 6. H/o Anemia of ESRD 7, Difficult vascular Access 8. anemia of ESRD Plan: s/p Removal of Right groin permacath,due to pericatheter hematoma, now s/p left groin permacath placement- yesterday poor flow through catheter, tPA placed Post HD- will check tomorrow if catheter works good pt will be on MWF schedule staph aureus bacteremia - IV abx oxacillin 2 gram IV Q 6 hr - ID following- if pt needs IV abx in HD unit, please let us know Home health set is also done to give IV oxacillin at home Continue other home medications, Midodrine 5 mg PO TID for BP support - Epogen 6000 units Q week will follow up Consultation Date/Type/Reason Admit Date/Time Oct 25, 2018 at 04:13 Initial Consult Date Type of Consult NEPHROLOGY Requesting Provider: LUANNE WALTER MD Date/Time of Note DATE: 11/16/18 TIME: 13:13 Exam/Review of Systems Exam Vitals Vital Signs Date Temp Pulse Resp B/P (MAP) Pulse Ox O2 O2 Flow FiO2 Time Delivery Rate 11/16/18 80 12:15 11/16/18 97.6 18 121/89 100 11:20 (100) 11/16/18 Nasal 11:15 Cannula 11/16/18 2.0 08:00 Intake and Output 11/15/18 11/15/18 11/16/18 1515:00 23:00 07:00 IntakeIntake Total 350 ml 590 ml 800 ml BalanceBalance 350 ml 590 ml 800 ml Exam Constitutional: alert, awake, no acute distress Respiratory: clear to auscultation Cardiovascular: regular rate and rhythm Gastrointestinal: soft, non-tender Musculoskeletal: nl extremities to inspection Extremities: normal pulses 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: nl mental status Additional Comments Left femoral hemodialysis catheter, left upper extremity AV fistula nonfunctional Results Result Diagram: 11/16/18 0602 11/16/18 0602 Results 24hrs Laboratory Tests Test 11/16/18 06:02 White Blood Count 7.3 Red Blood Count 3.73 L Hemoglobin 11.9 L Hematocrit 37.9 Mean Corpuscular Volume 101.6 H Mean Corpuscular Hemoglobin 31.9 Mean Corpuscular Hemoglobin Concent 31.4 L Red Cell Distribution Width 17.6 H Platelet Count 246 Mean Platelet Volume 11.3 H Immature Granulocytes % 0.300 Neutrophils % 57.8 Lymphocytes % 22.5 Monocytes % 9.1 Eosinophils % 9.3 H Basophils % 1.0 Nucleated Red Blood Cells % 0.0 Immature Granulocytes # 0.020 Neutrophils # 4.3 Lymphocytes # 1.7 Monocytes # 0.7 Eosinophils # 0.7 H Basophils # 0.1 Nucleated Red Blood Cells # 0.0 Sodium Level 139 Potassium Level 6.0 H Chloride Level 94 L Carbon Dioxide Level 23 Anion Gap 22 H Blood Urea Nitrogen 87 H Creatinine 10.73 #H Est Glomerular Filtrat Rate mL/min 4 L Glucose Level 66 L Calcium Level 8.5 Magnesium Level 3.5 H Total Bilirubin 0.1 L Direct Bilirubin 0.00 Indirect Bilirubin 0.1 Aspartate Amino Transf (AST/SGOT) 73 H Alanine Aminotransferase (ALT/SGPT) 83 H Alkaline Phosphatase 100 Total Protein 7.8 Albumin 4.2 Globulin 3.60 H Albumin/Globulin Ratio 1.16 Medications Medication Current Medications Albumin Human 100 ml @ 100 mls/hr WITH DIALYSIS PRN IV SBP <90 DURING DIALYSIS Last administered on 10/24/18at 21:00; Admin Dose 100 MLS/HR; Start 10/24/18 at 18:00 Sodium Chloride 250 ml @ 250 mls/hr Q1H PRN IV tachycardia Last administered on 11/10/18at 09:39; Admin Dose 250 MLS/HR; Start 10/25/18 at 01:00 Acetaminophen (Tylenol Tab) 650 mg Q4 PRN PO FEVER Last administered on 11/08/18at 18:01; Admin Dose 650 MG; Start 10/25/18 at 01:00 Sevelamer Carbonate (Renvela) 800 mg WITH MEALS PO Last administered on 11/16/18 11:58; Admin Dose 800 MG; Start 10/25/18 at 07:35 Midodrine (Proamatine) 5 mg TID@09,13,17 PO Last administered on 11/16/18 12:21; Admin Dose 5 MG; Start 10/26/18 at 09:00 Lidocaine (Xylocaine 1% (Mdv) 20 ml) 1 ml WITH DIALYSIS PRN INJ PRIOR TO CANULLATION/HD; Start 10/26/18 at 12:30 Ondansetron HCl (Zofran Inj) 4 mg Q4H PRN IV NAUSEA AND/OR VOMITING Last administered on 11/14/18 08:16; Admin Dose 4 MG; Start 10/26/18 at 15:30 Oxacillin Sodium 2 gm/Sodium Chloride 50 ml @ 100 mls/hr Q6 IVPB Last administered on 11/16/18 06:07; Admin Dose 100 MLS/HR; Start 10/30/18 at 18:00 Mupirocin (Bactroban) 1 applic BID TOP Last administered on 11/16/18 08:09; Admin Dose 1 APPLIC; Start 11/02/18 at 13:30 Heparin Sodium (Porcine) (Heparin (1000 Units/ml)) 6,100 unit AFTER DIALYSIS PRN CATHETER DIALYSIS Last administered on 11/12/18 12:57; Admin Dose 6,100 UNIT; Start 11/07/18 at 14:00 Morphine Sulfate (morphine) 3 mg Q4H PRN IV SEVERE PAIN LEVEL 7-10 Last administered on 11/16/18 10:09; Admin Dose 3 MG; Start 11/08/18 at 19:30 Diphenhydramine HCl (Benadryl) 25 mg Q4H PRN IV ALLERGIC REACTION Last administered on 11/16/18 10:09; Admin Dose 25 MG; Start 11/09/18 at 09:00 Metoprolol Tartrate (Lopressor) 5 mg Q4H PRN IV HR>110 Hold SBP<100 Last administered on 11/12/18 11:52; Admin Dose 5 MG; Start 11/09/18 at 14:30 Epoetin Maxwell-epbx (Retacrit (Esrd)) 6,000 unit We@1700 SC ; Start 11/16/18 at 17:00 HENRIQUE GRANADO MD Nov 16, 2018 13:13
--- NOTE | 2018-11-16 13:21 | CONS ---
Assessment/Plan Assessment/Plan Hospital Course (Demo Recall) IMPRESSION: 1. Bacteremia, assess for endocarditis, intracardiac source of infection. s/p AMANDA 11/04 with no definite signs intracardiac infection 2. Abnormal electrocardiogram with lateral T-wave inversion. 3. Hypertension, mainly diastolic labile, currently improved. 4. Leukemia. 5. Anemia. 6. Initial hypotension. Initially with midodrine- somewhat labile but not requiring midodrine 7. Tachycardia-S tach now improved and tolerating HD at this time 8. ESRD on HD s/p new R femoral HD catheter Recc: -Tele -continue abx's and f/u cx data -HD for volume removal as tolerated which she is having now -IVP PRN BB -Contineu midodrine as necessary Consultation Date/Type/Reason Admit Date/Time Oct 25, 2018 at 04:13 Initial Consult Date 10/25/18 Type of Consult Cardiology Reason for Consultation Bacteremia Requesting Provider: LUANNE WALTER MD Date/Time of Note DATE: 11/16/18 TIME: 13:20 Exam/Review of Systems Vital Signs Vitals Vital Signs Date Temp Pulse Resp B/P (MAP) Pulse Ox O2 O2 Flow FiO2 Time Delivery Rate 11/16/18 104 13:15 11/16/18 97.6 18 121/89 100 11:20 (100) 11/16/18 Nasal 11:15 Cannula 11/16/18 2.0 08:00 Intake and Output 11/15/18 11/15/18 11/16/18 1515:00 23:00 07:00 IntakeIntake Total 350 ml 590 ml 800 ml BalanceBalance 350 ml 590 ml 800 ml Exam Exam Review of Systems: CONSTITUTIONAL: No fevers, chills. PULMONARY: No sob CARDIOVASCULAR: No chest pain/palpitations GASTROINTESTINAL: No nausea/vomiting. GENITOURINARY: No hematuria/dysuria. MUSCULOSKELETAL: No myagias/arthalgias. PSYCHIATRIC: The patient denies depression. NEUROLOGIC: No weakness Constitutional: alert, oriented Psych: no complaints Head: normocephalic ENMT: mucosa pink and moist Neck: supple, jvd (9 cm water) Respiratory: clear to auscultation Cardiovascular: regular rate and rhythm Gastrointestinal: soft, non-tender Musculoskeletal: muscle tone (normal) Extremities: edema (none) 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: other (No focal deficits) Labs Result Diagram: 11/16/18 0602 11/16/18 0602 Results 24hrs Laboratory Tests Test 11/16/18 06:02 White Blood Count 7.3 Red Blood Count 3.73 L Hemoglobin 11.9 L Hematocrit 37.9 Mean Corpuscular Volume 101.6 H Mean Corpuscular Hemoglobin 31.9 Mean Corpuscular Hemoglobin Concent 31.4 L Red Cell Distribution Width 17.6 H Platelet Count 246 Mean Platelet Volume 11.3 H Immature Granulocytes % 0.300 Neutrophils % 57.8 Lymphocytes % 22.5 Monocytes % 9.1 Eosinophils % 9.3 H Basophils % 1.0 Nucleated Red Blood Cells % 0.0 Immature Granulocytes # 0.020 Neutrophils # 4.3 Lymphocytes # 1.7 Monocytes # 0.7 Eosinophils # 0.7 H Basophils # 0.1 Nucleated Red Blood Cells # 0.0 Sodium Level 139 Potassium Level 6.0 H Chloride Level 94 L Carbon Dioxide Level 23 Anion Gap 22 H Blood Urea Nitrogen 87 H Creatinine 10.73 #H Est Glomerular Filtrat Rate mL/min 4 L Glucose Level 66 L Calcium Level 8.5 Magnesium Level 3.5 H Total Bilirubin 0.1 L Direct Bilirubin 0.00 Indirect Bilirubin 0.1 Aspartate Amino Transf (AST/SGOT) 73 H Alanine Aminotransferase (ALT/SGPT) 83 H Alkaline Phosphatase 100 Total Protein 7.8 Albumin 4.2 Globulin 3.60 H Albumin/Globulin Ratio 1.16 Medications Medications Current Medications Albumin Human 100 ml @ 100 mls/hr WITH DIALYSIS PRN IV SBP <90 DURING DIALYSIS Last administered on 10/24/18at 21:00; Admin Dose 100 MLS/HR; Start 10/24/18 at 18:00 Sodium Chloride 250 ml @ 250 mls/hr Q1H PRN IV tachycardia Last administered on 11/10/18at 09:39; Admin Dose 250 MLS/HR; Start 10/25/18 at 01:00 Acetaminophen (Tylenol Tab) 650 mg Q4 PRN PO FEVER Last administered on 11/08/18at 18:01; Admin Dose 650 MG; Start 10/25/18 at 01:00 Sevelamer Carbonate (Renvela) 800 mg WITH MEALS PO Last administered on 11/16/18at 11:58; Admin Dose 800 MG; Start 10/25/18 at 07:35 Midodrine (Proamatine) 5 mg TID@09,13,17 PO Last administered on 11/16/18 12:21; Admin Dose 5 MG; Start 10/26/18 at 09:00 Lidocaine (Xylocaine 1% (Mdv) 20 ml) 1 ml WITH DIALYSIS PRN INJ PRIOR TO CANULLATION/HD; Start 10/26/18 at 12:30 Ondansetron HCl (Zofran Inj) 4 mg Q4H PRN IV NAUSEA AND/OR VOMITING Last administered on 11/14/18 08:16; Admin Dose 4 MG; Start 10/26/18 at 15:30 Oxacillin Sodium 2 gm/Sodium Chloride 50 ml @ 100 mls/hr Q6 IVPB Last a dministered on 11/16/18 06:07; Admin Dose 100 MLS/HR; Start 10/30/18 at 18:00 Mupirocin (Bactroban) 1 applic BID TOP Last administered on 11/16/18 08:09; Admin Dose 1 APPLIC; Start 11/02/18 at 13:30 Heparin Sodium (Porcine) (Heparin (1000 Units/ml)) 6,100 unit AFTER DIALYSIS PRN CATHETER DIALYSIS Last administered on 11/12/18 12:57; Admin Dose 6,100 UNIT; Start 11/07/18 at 14:00 Morphine Sulfate (morphine) 3 mg Q4H PRN IV SEVERE PAIN LEVEL 7-10 Last administered on 11/16/18 10:09; Admin Dose 3 MG; Start 11/08/18 at 19:30 Diphenhydramine HCl (Benadryl) 25 mg Q4H PRN IV ALLERGIC REACTION Last administered on 11/16/18 10:09; Admin Dose 25 MG; Start 11/09/18 at 09:00 Metoprolol Tartrate (Lopressor) 5 mg Q4H PRN IV HR>110 Hold SBP<100 Last administered on 11/12/18 11:52; Admin Dose 5 MG; Start 11/09/18 at 14:30 Epoetin Maxwell-epbx (Retacrit (Esrd)) 6,000 unit We@1700 SC ; Start 11/16/18 at 17:00 HENRIQUE GARCIA Nov 16, 2018 13:21
[2018-11-16] MEDS: HEPARIN 1000 UNITS/ML 10 ML INJ CATHETER PRN (14:27)
--- NOTE | 2018-11-16 16:00 | CONS ---
Assessment/Plan Assessment/Plan Hospital Course (Demo Recall) # sepsis, heme/onc - s/p sepsis due to bacteremia, recurrent. Resolved - s/p persistent and recurrent bacteremia on 10/24, 10/25, and 10/26 due to MSSA; repeat blood cultures on 10/28 & 11/02 were negative; transthoracic echo did not mention vegetation; AMANDA showed no vegetation - the source of her bacteremia was her HD catheter. No other focus of infection was found: WBC tagged scan on 11/05/2018 showed several non-specific foci of increased activity along R anterior chest wall;however, chest CT on 11/07/2018 showed no fluid collection identified within the chest wall. 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 Per Pt, she had pruritus, "bumps" and green discharge from the catheter site. Its culture on 10/31/2018 grew S. aureus. It was removed on 11/04/2018 - s/p placement of an HD catheter on R groin on 11/07/2018-->removed on 11/10/18 - s/p placement of an HD catheter on L groin on 11/10/2018 - soft tissue CHRISTEL of b/l groin on 11/10/2018 did not show hematoma or active signs of bleeding or abscess - h/o removal of permacath on R chest wall on 07/14/2018 - h/o R femoral HD justin catheter placement 07/14/2018, replaced by HD permacath 07/19/2018 - h/o pain/increased sensitivity of R groin after replacement of the Perez with permacath. soft tissue CHRISTEL on 07/20/2018 showed no abnormality at the site of the palpable lesion adjacent to R inguinal region HD catheter - h/o swelling on the scalp and chest wall, possibly due to collateral veins as a result of thrombosis of AVF - h/o removal and placement of a new Perez catheter in 05/2018. The culture of the tip of the removed catheter, blood cultures and swab of the catheter site were negative. Pt completed an empiric course of renally dosed pip/tazo (06/13/2018-06/18/2018) - h/o placement of a permacath on R chest wall on 06/23/2018 - [place] [facility] [place] - thrombosed L brachiocephalic AV fistula, 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 Last used for HD in 04/2018. Was scheduled to get a new graft [place] [facility] - h/o 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 Her last cycle was in early 2018 # GI//cardiac - h/o biliary colic, N&E, intermittent: according to Pt, she had received authorization for elective cholecystectomy as outpatient - h/o MRCP in 07/2017: negative for cholelithiasis or cholecystitis - amenorrhea since AVF creation in 2016 - I reviewed Pt's cardiac rhythm. 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 Pt took renally dosed valACV (07/15/2018-07/17/2018) - adverse reaction to vancomycin (pruritus) - adverse reaction to linezolid (thrombocytopenia). Linezolid was discontinued (06/12/2018-06/17/2018) - ?adverse reaction to cefazolin (severe abd pain/cramping, although pt tolerated a 14 day course of cefazolin in 06/2018) - painful nodule on L thumb; X-ray shows possible subcutaneous mass adjacent to the radial aspect of the first metacarpal. Recommendations: - I reviewed Pt's rhythm on the monitor with a cafeteria monitor for the last 24hrs and did not see recorded HR of 170s as described by Pt. Cardiology consult team has been following this Pt - I will review the result of her CHRISTEL - continue renally dosed oxacillin 2gm IV q6 hours (10/30/2018-) for 2 weeks after removal of her HD catheter, i.e. 11/04/18-11/18/18 management d/w Pt, cafeteria monitor, YOKASTA Shelton, correctional case manager Jeanne Consultation Date/Type/Reason Admit Date/Time Oct 25, 2018 at 04:13 Initial Consult Date 10/25/18 Type of Consult ID Requesting Provider: LUANNE WALTER MD Date/Time of Note DATE: 11/16/18 TIME: 15:47 24 HR Interval Summary Constitutional: no complaints Detailed Summary Eyes: no complaints ENT: no complaints, other (continue to feel swollen) Respiratory: other (feels the presure of swollen blood vessels); No cough, No pleuritic pain, No shortness of breath, No sputum Cardiovascular: no complaints Gastrointestinal: no complaints Genitourinary: other (persistent swelling of b/l groin) Musculoskeletal: no complaints Skin: no complaints Neurologic: no complaints Exam/Review of Systems Exam Vitals Vital Signs Date Temp Pulse Resp B/P (MAP) Pulse Ox O2 O2 Flow FiO2 Time Delivery Rate 11/16/18 97.6 118 17 86/58 (67) 96 15:23 11/16/18 Nasal 11:15 Cannula 11/16/18 2.0 08:00 Intake and Output 11/15/18 11/15/18 11/16/18 1515:00 23:00 07:00 IntakeIntake Total 350 ml 590 ml 800 ml BalanceBalance 350 ml 590 ml 800 ml Constitutional: alert, oriented, well developed Psych: no complaints, nl mood/affect Head: normocephalic, atraumatic, other (the scalp is not indurated and non-TTP, non-erythematous) Eyes: nl conjunctiva ENMT: nl external ears & nose, nl nasal mucosa & septum Neck: supple Respiratory: clear to auscultation, normal air movement, other (chest wall is not swollen, not-TTP) Cardiovascular: other (tachycardic and regular) Gastrointestinal: soft, non-tender Genitourinary - Female: other (R groin is no longer swollen, erythematous or indurated. L groin is swollen, not warm, not erythematous and not indurated) Musculoskeletal: No swelling Extremities: normal pulses; No edema Skin: nl turgor; No rash or lesions Results Result Diagram: 11/16/18 0602 11/16/18 0602 Results 24hrs Laboratory Tests Test 11/16/18 06:02 White Blood Count 7.3 Red Blood Count 3.73 L Hemoglobin 11.9 L Hematocrit 37.9 Mean Corpuscular Volume 101.6 H Mean Corpuscular Hemoglobin 31.9 Mean Corpuscular Hemoglobin Concent 31.4 L Red Cell Distribution Width 17.6 H Platelet Count 246 Mean Platelet Volume 11.3 H Immature Granulocytes % 0.300 Neutrophils % 57.8 Lymphocytes % 22.5 Monocytes % 9.1 Eosinophils % 9.3 H Basophils % 1.0 Nucleated Red Blood Cells % 0.0 Immature Granulocytes # 0.020 Neutrophils # 4.3 Lymphocytes # 1.7 Monocytes # 0.7 Eosinophils # 0.7 H Basophils # 0.1 Nucleated Red Blood Cells # 0.0 Sodium Level 139 Potassium Level 6.0 H Chloride Level 94 L Carbon Dioxide Level 23 Anion Gap 22 H Blood Urea Nitrogen 87 H Creatinine 10.73 #H Est Glomerular Filtrat Rate mL/min 4 L Glucose Level 66 L Calcium Level 8.5 Magnesium Level 3.5 H Total Bilirubin 0.1 L Direct Bilirubin 0.00 Indirect Bilirubin 0.1 Aspartate Amino Transf (AST/SGOT) 73 H Alanine Aminotransferase (ALT/SGPT) 83 H Alkaline Phosphatase 100 Total Protein 7.8 Albumin 4.2 Globulin 3.60 H Albumin/Globulin Ratio 1.16 Medications Medication Current Medications Albumin Human 100 ml @ 100 mls/hr WITH DIALYSIS PRN IV SBP <90 DURING DIALYSIS Last administered on 10/24/18at 21:00; Admin Dose 100 MLS/HR; Start 10/24/18 at 18:00 Sodium Chloride 250 ml @ 250 mls/hr Q1H PRN IV tachycardia Last administered on 11/10/18at 09:39; Admin Dose 250 MLS/HR; Start 10/25/18 at 01:00 Acetaminophen (Tylenol Tab) 650 mg Q4 PRN PO FEVER Last administered on 11/08/18at 18:01; Admin Dose 650 MG; Start 10/25/18 at 01:00 Sevelamer Carbonate (Renvela) 800 mg WITH MEALS PO Last administered on 11/16/18at 11:58; Admin Dose 800 MG; Start 10/25/18 at 07:35 Midodrine (Proamatine) 5 mg TID@,13,17 PO Last administered on 11/16/18 12:21; Admin Dose 5 MG; Start 10/26/18 at 09:00 Lidocaine (Xylocaine 1% (Mdv) 20 ml) 1 ml WITH DIALYSIS PRN INJ PRIOR TO CANULLATION/HD; Start 10/26/18 at 12:30 Ondansetron HCl (Zofran Inj) 4 mg Q4H PRN IV NAUSEA AND/OR VOMITING Last administered on 11/14/18 08:16; Admin Dose 4 MG; Start 10/26/18 at 15:30 Oxacillin Sodium 2 gm/Sodium Chloride 50 ml @ 100 mls/hr Q6 IVPB Last administered on 11/16/18 15:11; Admin Dose 100 MLS/HR; Start 10/30/18 at 18:00 Mupirocin (Bactroban) 1 applic BID TOP Last administered on 11/16/18 08:09; Admin Dose 1 APPLIC; Start 11/02/18 at 13:30 Heparin Sodium (Porcine) (Heparin (1000 Units/ml)) 6,100 unit AFTER DIALYSIS PRN CATHETER DIALYSIS Last administered on 11/16/18 14:27; Admin Dose 6,100 UNIT; Start 11/07/18 at 14:00 Morphine Sulfate (morphine) 3 mg Q4H PRN IV SEVERE PAIN LEVEL 7-10 Last admini stered on 11/16/18 14:13; Admin Dose 3 MG; Start 11/08/18 at 19:30 Diphenhydramine HCl (Benadryl) 25 mg Q4H PRN IV ALLERGIC REACTION Last administered on 11/16/18 14:13; Admin Dose 25 MG; Start 11/09/18 at 09:00 Metoprolol Tartrate (Lopressor) 5 mg Q4H PRN IV HR>110 Hold SBP<100 Last administered on 11/12/18 11:52; Admin Dose 5 MG; Start 11/09/18 at 14:30 Epoetin Maxwell-epbx (Retacrit (Esrd)) 6,000 unit We@1700 SC ; Start 11/16/18 at 17:00 GINGER HARDIN M.D. Nov 16, 2018 16:00
[2018-11-16] MEDS ORDERED: EPOETIN ALFA-EPBX (ESRD) 3,000 UNIT/ML VIAL SC SCH (17:00)
[2018-11-16] MEDS: ONDANSETRON 4 MG INJ IV PRN (22:21)
[2018-11-17] MEDS: OXACILLIN 2 GM in SOD CHLORIDE 0.9% 50 ML IVPB SCH ×4 (00:22→17:34)
[2018-11-17] MEDS: morphine 4 MG/ML VIAL IV PRN ×6 (02:20→22:25)
[2018-11-17] MEDS: DIPHENHYDRAMINE 50 MG INJ IV PRN ×6 (02:21→22:21)
[2018-11-17 03:51] VITALS: BP 106/71; PULSE 99; RESP 18
[2018-11-17 07:58] VITALS: BP 101/52; PULSE 91; RESP 18
[2018-11-17] MEDS: MIDODRINE 5 MG TAB PO SCH ×3 (08:14→17:35)
[2018-11-17] MEDS: SEVELAMER CARBONATE 800 MG TABLET PO SCH ×3 (08:14→17:34)
[2018-11-17] MEDS: MUPIROCIN 2% 22 GM OINT TOP SCH ×2 (08:15→21:00)
[2018-11-17] MEDS ORDERED: NA POLYST SULFON 15 GM/60 ML BTL PO ONE (09:00)
[2018-11-17] MEDS: ONDANSETRON 4 MG INJ IV PRN (09:20)
--- NOTE | 2018-11-17 10:35 | CONS ---
Assessment/Plan Assessment/Plan Assessment/Plan (Daily) 1. Septic shock s/p Levophed - now resolved 2. ESRD on HD MWF schedule , left femoral permacath for HD access 3. Bacteremia with Blood cx growing staph aureus -s/p removal of left permacath on 11/04/18- pt remained line free for 3 days then insertion of Right groin permacath on 11/07/18 which is removed due to hematoma around catheter site then pt subsequently had a new permacath placemen ton left groin on 11/10/18 4. H/o Leukemia currently on chemotherapy, last chem on 10/21/18 5. H/o Primary hyperparathyroidism, status post complete parathyroidectomy and partial left thyroid lobectomy 2 years ago. 6. H/o Anemia of ESRD 7, Difficult vascular Access 8. anemia of ESRD Plan: s/p Removal of Right groin permacath,due to pericatheter hematoma, now s/p left groin permacath placement- HD ordered for Wednesday - pt will be on MWF schedule staph aureus bacteremia - IV abx oxacillin 2 gram IV Q 6 hr - ID following- if pt needs IV abx in HD unit, please let us know Home health set is also done to give IV oxacillin at home Continue other home medications, Midodrine 5 mg PO TID for BP support - Epogen 6000 units Q week will follow up Consultation Date/Type/Reason Admit Date/Time Oct 25, 2018 at 04:13 Initial Consult Date Type of Consult NEPHROLOGY Requesting Provider: LUANNE WALTER MD Date/Time of Note DATE: 11/17/18 TIME: 10:35 Exam/Review of Systems Exam Vitals Vital Signs Date Temp Pulse Resp B/P (MAP) Pulse Ox O2 O2 Flow FiO2 Time Delivery Rate 11/17/18 98.7 91 18 101/52 98 Nasal 07:58 (68) Cannula 11/17/18 2.0 07:48 Intake and Output 11/16/18 11/16/18 11/17/18 1515:00 23:00 07:00 IntakeIntake Total 300 ml 100 ml 700 ml OutputOutput Total 3500 ml BalanceBalance -3200 ml 100 ml 700 ml Exam Constitutional: alert, awake, no acute distress Respiratory: clear to auscultation Cardiovascular: regular rate and rhythm Gastrointestinal: soft, non-tender Musculoskeletal: nl extremities to inspection Extremities: normal pulses 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: nl mental status Additional Comments Left femoral hemodialysis catheter, left upper extremity AV fistula no nfunctional Results Result Diagram: 11/16/18 0602 11/17/18 0553 Results 24hrs Laboratory Tests Test 11/17/18 05:53 Sodium Level 140 Potassium Level 6.2 *H Chloride Level 98 Carbon Dioxide Level 23 Anion Gap 19 H Blood Urea Nitrogen 54 #H Creatinine 8.09 #H Est Glomerular Filtrat Rate mL/min 6 L Glucose Level 71 Calcium Level 8.8 Medications Medication Current Medications Albumin Human 100 ml @ 100 mls/hr WITH DIALYSIS PRN IV SBP <90 DURING DIALYSIS Last administered on 10/24/18at 21:00; Admin Dose 100 MLS/HR; Start 10/24/18 at 18:00 Sodium Chloride 250 ml @ 250 mls/hr Q1H PRN IV tachycardia Last administered on 11/10/18 09:39; Admin Dose 250 MLS/HR; Start 10/25/18 at 01:00 Acetaminophen (Tylenol Tab) 650 mg Q4 PRN PO FEVER Last administered on 11/08/18at 18:01; Admin Dose 650 MG; Start 10/25/18 at 01:00 Sevelamer Carbonate (Renvela) 800 mg WITH MEALS PO Last administered on 11/17/18 08:14; Admin Dose 800 MG; Start 10/25/18 at 07:35 Midodrine (Proamatine) 5 mg TID@09,13,17 PO Last administered on 11/17/18 08:14; Admin Dose 5 MG; Start 10/26/18 at 09:00 Lidocaine (Xylocaine 1% (Mdv) 20 ml) 1 ml WITH DIALYSIS PRN INJ PRIOR TO CANULL ATION/HD; Start 10/26/18 at 12:30 Ondansetron HCl (Zofran Inj) 4 mg Q4H PRN IV NAUSEA AND/OR VOMITING Last administered on 11/17/18at 09:20; Admin Dose 4 MG; Start 10/26/18 at 15:30 Oxacillin Sodium 2 gm/Sodium Chloride 50 ml @ 100 mls/hr Q6 IVPB Last administered on 11/17/18at 06:13; Admin Dose 100 MLS/HR; Start 10/30/18 at 18:00 Mupirocin (Bactroban) 1 applic BID TOP Last administered on 11/17/18 08:15; Admin Dose 1 APPLIC; Start 11/02/18 at 13:30 Heparin Sodium (Porcine) (Heparin (1000 Units/ml)) 6,100 unit AFTER DIALYSIS PRN CATHETER DIALYSIS Last administered on 11/16/18 14:27; Admin Dose 6,100 UNIT; Start 11/07/18 at 14:00 Morphine Sulfate (morphine) 3 mg Q4H PRN IV SEVERE PAIN LEVEL 7-10 Last administered on 11/17/18 10:27; Admin Dose 3 MG; Start 11/08/18 at 19:30 Diphenhydramine HCl (Benadryl) 25 mg Q4H PRN IV ALLERGIC REACTION Last administered on 11/17/18 10:27; Admin Dose 25 MG; Start 11/09/18 at 09:00 Metoprolol Tartrate (Lopressor) 5 mg Q4H PRN IV HR>110 Hold SBP<100 Last administered on 11/12/18 11:52; Admin Dose 5 MG; Start 11/09/18 at 14:30 Epoetin Maxwell-epbx (Retacrit (Esrd)) 6,000 unit We@1700 SC Last administered on 11/16/18 17:36; Admin Dose 6,000 UNIT; Start 11/16/18 at 17:00 HENRIQUE GRANADO MD Nov 17, 2018 10:35
[2018-11-17 12:00] VITALS: BP 104/51; PULSE 91; RESP 19
--- NOTE | 2018-11-17 12:56 | CONS ---
Assessment/Plan Assessment/Plan Hospital Course (Demo Recall) IMPRESSION: 1. Bacteremia, assess for endocarditis, intracardiac source of infection. s/p AMANDA 11/04 with no definite signs intracardiac infection 2. Abnormal electrocardiogram with lateral T-wave inversion. 3. Hypertension, mainly diastolic labile, currently improved. 4. Leukemia. 5. Anemia. 6. Initial hypotension. Initially with midodrine- somewhat labile but not requiring midodrine 7. Tachycardia-S tach now improved and tolerating HD at this time 8. ESRD on HD s/p new R femoral HD catheter Recc: -Tele -continue abx's and f/u cx data -HD for volume removal as tolerated -IVP PRN BB -Contineu midodrine as necessary -Rx epsisodes of N/V Consultation Date/Type/Reason Admit Date/Time Oct 25, 2018 at 04:13 Initial Consult Date 10/25/18 Type of Consult Cardiology Reason for Consultation bacteremia Requesting Provider: LUANNE WALTER MD Date/Time of Note DATE: 11/17/18 TIME: 12:52 Exam/Review of Systems Vital Signs Vitals Vital Signs Date Temp Pulse Resp B/P (MAP) Pulse Ox O2 O2 Flow FiO2 Time Delivery Rate 11/17/18 97.7 91 19 104/51 98 Room Air 12:00 (68) 11/17/18 2.0 07:48 Intake and Output 11/16/18 11/16/18 11/17/18 1515:00 23:00 07:00 IntakeIntake Total 300 ml 100 ml 700 ml OutputOutput Total 3500 ml BalanceBalance -3200 ml 100 ml 700 ml Exam Exam Review of Systems: CONSTITUTIONAL: No fevers, chills. PULMONARY: No sob CARDIOVASCULAR: No chest pain/palpitations GASTROINTESTINAL: some nausea/vomiting. GENITOURINARY: No hematuria/dysuria. MUSCULOSKELETAL: No myagias/arthalgias. PSYCHIATRIC: The patient denies depression. NEUROLOGIC: No weakness Constitutional: alert Psych: no complaints Head: normocephalic ENMT: mucosa pink and moist Neck: supple, jvd (9 cm water) Respiratory: diminished breath sounds (at bases/B) Cardiovascular: regular rate and rhythm Gastrointestinal: soft, non-tender Musculoskeletal: muscle tone (normal) Extremities: edema (none) 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: other (No focal deficits) Labs Result Diagram: 11/16/18 0602 11/17/18 0553 Results 24hrs Laboratory Tests Test 11/17/18 05:53 Sodium Level 140 Potassium Level 6.2 *H Chloride Level 98 Carbon Dioxide Level 23 Anion Gap 19 H Blood Urea Nitrogen 54 #H Creatinine 8.09 #H Est Glomerular Filtrat Rate mL/min 6 L Glucose Level 71 Calcium Level 8.8 Medications Medications Current Medications Albumin Human 100 ml @ 100 mls/hr WITH DIALYSIS PRN IV SBP <90 DURING DIALYSIS Last administered on 10/24/18 21:00; Admin Dose 100 MLS/HR; Start 10/24/18 at 18:00 Sodium Chloride 250 ml @ 250 mls/hr Q1H PRN IV tachycardia Last administered on 11/10/18 09:39; Admin Dose 250 MLS/HR; Start 10/25/18 at 01:00 Acetaminophen (Tylenol Tab) 650 mg Q4 PRN PO FEVER Last administered on 11/08/18 18:01; Admin Dose 650 MG; Start 10/25/18 at 01:00 Sevelamer Carbonate (Renvela) 800 mg WITH MEALS PO Last administered on 11/17/18 12:27; Admin Dose 800 MG; Start 10/25/18 at 07:35 Midodrine (Proamatine) 5 mg TID@09,13,17 PO Last administered on 11/17/18 12:28; Admin Dose 5 MG; Start 10/26/18 at 09:00 Lidocaine (Xylocaine 1% (Mdv) 20 ml) 1 ml WITH DIALYSIS PRN INJ PRIOR TO CANULLATION/HD; Start 10/26/18 at 12:30 Ondansetron HCl (Zofran Inj) 4 mg Q4H PRN IV NAUSEA AND/OR VOMITING Last administered on 11/17/18 09:20; Admin Dose 4 MG; Start 10/26/18 at 15:30 Oxacillin Sodium 2 gm/Sodium Chloride 50 ml @ 100 mls/hr Q6 IVPB Last administered on 11/17/18 12:27; Admin Dose 100 MLS/HR; Start 10/30/18 at 18:00 Mupirocin (Bactroban) 1 applic BID TOP Last administered on 11/17/18 08:15; Admin Dose 1 APPLIC; Start 11/02/18 at 13:30 Heparin Sodium (Porcine) (Heparin (1000 Units/ml)) 6,100 unit AFTER DIALYSIS PRN CATHETER DIALYSIS Last administered on 11/16/18 14:27; Admin Dose 6,100 UNIT; Start 11/07/18 at 14:00 Morphine Sulfate (morphine) 3 mg Q4H PRN IV SEVERE PAIN LEVEL 7-10 Last administered on 11/17/18 10:27; Admin Dose 3 MG; Start 11/08/18 at 19:30 Diphenhydramine HCl (Benadryl) 25 mg Q4H PRN IV ALLERGIC REACTION Last administered on 11/17/18 10:27; Admin Dose 25 MG; Start 11/09/18 at 09:00 Metoprolol Tartrate (Lopressor) 5 mg Q4H PRN IV HR>110 Hold SBP<100 Last administered on 11/12/18 11:52; Admin Dose 5 MG; Start 11/09/18 at 14:30 Epoetin Maxwell-epbx (Retacrit (Esrd)) 6,000 unit We@1700 SC Last administered on 11/16/18 17:36; Admin Dose 6,000 UNIT; Start 11/16/18 at 17:00 HENRIQUE GARCIA Nov 17, 2018 12:56
--- NOTE | 2018-11-17 15:08 | PN ---
Date/Time of Note Date/Time of Note DATE: 11/17/18 TIME: 15:04 Assessment/Plan VTE Prophylaxis Risk score (from Ns)>0 risk: 5 SCD applied (from [facility] [place]): No SCD contraindicated: bilateral LE trauma Pharmacological prophylaxis: NA/contraindicated Pharm contraindication: anticoag not tolerated Lines/Catheters IV [facility]ter Type (from [facility] Permacath Central line still needed: Yes Urinary Cath still in place: No Assessment/Plan Hospital Course Patient complains of nausea,nonbloody emesis, and dizziness, potassium is 6.2. Status post Kayexalate. Bilateral groin ultrasound noted no hematoma, continue supportive care bedrest. Assessment/Plan -Hyperkalemia, status post Kayexalate yesterday, continue hemodialysis per nephrology. -Sepsis with DIMITRI bacteremia with fevers, leukocytosis, and hypotension. Continue on oxacillin 2 g every 6 hours until 11/[address] Arora is following in ID consultation. AMANDA is negative for vegetation. Dr. Barrera is following in cardiology consultation. -Hemodialysis dependent end-stage renal disease, continue dialysis per nephrology. Dr. Beltran is following in nephrology consultation. -Leukemia, patient is undergoing chemotherapy last chemo was on Wednesday10/11/18. -Anemia multifactorial chronic disease and recent chemo, status post blood transfusion, continue to monitor H&H, continue Epogen. -Mineral bone disease with renal osteodystrophy. No acute fractures, traumatic subluxations, osteomyelitis or diskitis per MRI of the lumbar spine. -Primary hyperparathyroidism, status post complete parathyroidectomy and partial left thyroid lobectomy 2 years ago. -Left femoral hemodialysis catheter present on admission. Further recommendations based on clinical course. Plan of care discussed with Dr. Turner. Result Diagram: 11/16/18 0602 11/17/18 0553 Results 24hrs Laboratory Tests Test 11/17/18 05:53 Sodium Level 140 Potassium Level 6.2 *H Chloride Level 98 Carbon Dioxide Level 23 Anion Gap 19 H Blood Urea Nitrogen 54 #H Creatinine 8.09 #H Est Glomerular Filtrat Rate mL/min 6 L Glucose Level 71 Calcium Level 8.8 Exam/Review of Systems Exam Vitals Vital Signs Date Temp Pulse Resp B/P (MAP) Pulse Ox O2 O2 Flow FiO2 Time Delivery Rate 11/17/18 97.7 91 19 104/51 98 Room Air 12:00 (68) 11/17/18 2.0 07:48 Intake and Output 11/16/18 11/16/18 11/17/18 1515:00 23:00 07:00 IntakeIntake Total 300 ml 100 ml 700 ml OutputOutput Total 3500 ml BalanceBalance -3200 ml 100 ml 700 ml Exam Constitutional: alert Respiratory: clear to auscultation Cardiovascular: regular rate and rhythm Gastrointestinal: soft, non-tender Musculoskeletal: nl extremities to inspection Extremities: normal pulses Neurological: nl mental status Skin: nl turgor Additional Comments Left femoral hemodialysis catheter, left upper extremity AV fistula nonfunctional Results Results 24hrs Laboratory Tests Test 11/17/18 05:53 Sodium Level 140 Potassium Level 6.2 *H Chloride Level 98 Carbon Dioxide Level 23 Anion Gap 19 H Blood Urea Nitrogen 54 #H Creatinine 8.09 #H Est Glomerular Filtrat Rate mL/min 6 L Glucose Level 71 Calcium Level 8.8 Medications Medication Current Medications Albumin Human 100 ml @ 100 mls/hr WITH DIALYSIS PRN IV SBP <90 DURING DIALYSIS Last administered on 10/24/18at 21:00; Admin Dose 100 MLS/HR; Start 10/24/18 at 18:00 Sodium Chloride 250 ml @ 250 mls/hr Q1H PRN IV tachycardia Last administered on 11/10/18at 09:39; Admin Dose 250 MLS/HR; Start 10/25/18 at 01:00 Acetaminophen (Tylenol Tab) 650 mg Q4 PRN PO FEVER Last administered on 11/08/18 18:01; Admin Dose 650 MG; Start 10/25/18 at 01:00 Sevelamer Carbonate (Renvela) 800 mg WITH MEALS PO Last administered on 11/17/18at 12:27; Admin Dose 800 MG; Start 10/25/18 at 07:35 Midodrine (Proamatine) 5 mg TID@09,13,17 PO Last administered on 11/17/18at 12:28; Admin Dose 5 MG; Start 10/26/18 at 09:00 Lidocaine (Xylocaine 1% (Mdv) 20 ml) 1 ml WITH DIALYSIS PRN INJ PRIOR TO CANULLATION/HD; Start 10/26/18 at 12:30 Ondansetron HCl (Zofran Inj) 4 mg Q4H PRN IV NAUSEA AND/OR VOMITING Last administered on 11/17/18 09:20; Admin Dose 4 MG; Start 10/26/18 at 15:30 Oxacillin Sodium 2 gm/Sodium Chloride 50 ml @ 100 mls/hr Q6 IVPB Last administ ered on 11/17/18 12:27; Admin Dose 100 MLS/HR; Start 10/30/18 at 18:00 Mupirocin (Bactroban) 1 applic BID TOP Last administered on 11/17/18 08:15; Admin Dose 1 APPLIC; Start 11/02/18 at 13:30 Heparin Sodium (Porcine) (Heparin (1000 Units/ml)) 6,100 unit AFTER DIALYSIS PRN CATHETER DIALYSIS Last administered on 11/16/18 14:27; Admin Dose 6,100 UNIT; Start 11/07/18 at 14:00 Morphine Sulfate (morphine) 3 mg Q4H PRN IV SEVERE PAIN LEVEL 7-10 Last administered on 11/17/18 14:19; Admin Dose 3 MG; Start 11/08/18 at 19:30 Diphenhydramine HCl (Benadryl) 25 mg Q4H PRN IV ALLERGIC REACTION Last ad ministered on 11/17/18 14:20; Admin Dose 25 MG; Start 11/09/18 at 09:00 Metoprolol Tartrate (Lopressor) 5 mg Q4H PRN IV HR>110 Hold SBP<100 Last administered on 11/12/18 11:52; Admin Dose 5 MG; Start 11/09/18 at 14:30 Epoetin Maxwell-epbx (Retacrit (Esrd)) 6,000 unit We@1700 SC Last administered on 11/16/18 17:36; Admin Dose 6,000 UNIT; Start 11/16/18 at 17:00 ERICK ROBERTSON Nov 17, 2018 15:08
[2018-11-17 15:45] VITALS: BP 105/51; PULSE 86; RESP 18
[2018-11-17 19:21] VITALS: BP 104/77; PULSE 84; RESP 19
--- NOTE | 2018-11-17 20:27 | CONS ---
Assessment/Plan Assessment/Plan Hospital Course (Demo Recall) # sepsis, heme/onc - s/p sepsis due to bacteremia, recurrent. Resolved - s/p persistent and recurrent bacteremia on 10/24, 10/25, and 10/26 due to MSSA; repeat blood cultures on 10/28 & 11/02 were negative; transthoracic echo did not mention vegetation; AMANDA showed no vegetation - the source of her bacteremia was her HD catheter. No other focus of infection was found: WBC tagged scan on 11/05/2018 showed several non-specific foci of increased activity along R anterior chest wall;however, chest CT on 11/07/2018 showed no fluid collection identified within the chest wall. 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 Per Pt, she had pruritus, "bumps" and green discharge from the catheter site. Its culture on 10/31/2018 grew S. aureus. It was removed on 11/04/2018 - s/p placement of an HD catheter on R groin on 11/07/2018-->removed on 11/10/18 - s/p placement of an HD catheter on L groin on 11/10/2018 - soft tissue CHRISTEL of b/l groin on 11/10/2018 did not show hematoma or active signs of bleeding or abscess, on 11/16/2018 showed prominent lymph node - h/o removal of permacath on R chest wall on 07/14/2018 - h/o R femoral HD justin catheter placement 07/14/2018, replaced by HD permacath 07/19/2018 - h/o pain/increased sensitivity of R groin after replacement of the Perez with permacath. soft tissue CHRISTEL on 07/20/2018 showed no abnormality at the site of the palpable lesion adjacent to R inguinal region HD catheter - h/o swelling on the scalp and chest wall, possibly due to collateral veins as a result of thrombosis of AVF - h/o removal and placement of a new Perez catheter in 05/2018. The culture of the tip of the removed catheter, blood cultures and swab of the catheter site were negative. Pt completed an empiric course of renally dosed pip/tazo (06/13/2018-06/18/2018) - h/o placement of a permacath on R chest wall on 06/23/2018 - h/o creation of AVF in [facility] [place] - thrombosed L brachiocephalic AV fistula, 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 Last used for HD in 04/2018. Was scheduled to get a new graft in [facility] as outpatient - h/o 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 Her last cycle was in early 2018 # GI//cardiac - h/o biliary colic: according to Pt, she had received authorization for elective cholecystectomy as outpatient - h/o MRCP in 07/2017: negative for cholelithiasis or cholecystitis - amenorrhea since AVF creation in 2016 - I reviewed Pt's cardiac rhythm. 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 Pt took renally dosed valACV (07/15/2018-07/17/2018) - adverse reaction to vancomycin (pruritus) - adverse reaction to linezolid (thrombocytopenia). Linezolid was discontinued (06/12/2018-06/17/2018) - ?adverse reaction to cefazolin (severe abd pain/cramping, although pt tolerated a 14 day course of cefazolin in 06/2018) - painful nodule on L thumb; X-ray shows possible subcutaneous mass adjacent to the radial aspect of the first metacarpal. Recommendations: - I ordered KUB to eval SBO/ileus, lipase and LFTs - I recommend abdominal CHRISTEL to r/o acute cholecystitis, pancreatitis - continue renally dosed oxacillin 2gm IV q6 hours (10/30/2018-) for 2 weeks after removal of her HD catheter, i.e. 11/04/18-11/18/18 management d/w Pt Consultation Date/Type/Reason Admit Date/Time Oct 25, 2018 at 04:13 Initial Consult Date 10/25/18 Type of Consult ID Requesting Provider: LUANNE WALTER MD Date/Time of Note DATE: 11/17/18 TIME: 20:22 24 HR Interval Summary Constitutional: poor po Detailed Summary Eyes: visual change ENT: no complaints Respiratory: no complaints Cardiovascular: no complaints Gastrointestinal: nausea Genitourinary: other (anuric) Musculoskeletal: swelling (less swelling of b/l groin) Skin: skin lesions (numerous tiny folliculitis of face, neck and trunk) Neurologic: dizziness Exam/Review of Systems Exam Vitals Vital Signs Date Temp Pulse Resp B/P (MAP) Pulse Ox O2 O2 Flow FiO2 Time Delivery Rate 11/17/18 97.8 84 19 104/77 98 Room Air 19:21 (86) 11/17/18 2.0 07:48 Intake and Output 11/16/18 11/16/18 11/17/18 1515:00 23:00 07:00 IntakeIntake Total 300 ml 100 ml 700 ml OutputOutput Total 3500 ml BalanceBalance -3200 ml 100 ml 700 ml Constitutional: alert, oriented Psych: no complaints, nl mood/affect Head: normocephalic, atraumatic, other (alopecia) Eyes: nl conjunctiva, nl lids, nl sclera ENMT: nl external ears & nose, nl nasal mucosa & septum, mucosa pink and moist Neck: other (not swollen) Respiratory: clear to auscultation, normal air movement Cardiovascular: regular rate and rhythm, nl pulses; No edema Gastrointestinal: soft, non-tender; No distended, No tender Musculoskeletal: nl extremities to inspection, swelling (b/l inguinal area without induration or fluctuance) Extremities: No edema Neurological: [employer] II-XII intact, nl mental status, nl speech Skin: rash or lesions (numerous folliculitis lesions on the face, neck and extremities) Lymph: enlarged (b/l inguinal) Results Result Diagram: 11/16/18 0602 11/17/18 0553 Results 24hrs Laboratory Tests Test 11/17/18 05:53 Sodium Level 140 Potassium Level 6.2 *H Chloride Level 98 Carbon Dioxide Level 23 Anion Gap 19 H Blood Urea Nitrogen 54 #H Creatinine 8.09 #H Est Glomerular Filtrat Rate mL/min 6 L Glucose Level 71 Calcium Level 8.8 Medications Medication Current Medications Albumin Human 100 ml @ 100 mls/hr WITH DIALYSIS PRN IV SBP <90 DURING DIALYSIS Last administered on 10/24/18 21:00; Admin Dose 100 MLS/HR; Start 10/24/18 at 18:00 Sodium Chloride 250 ml @ 250 mls/hr Q1H PRN IV tachycardia Last administered on 11/10/18 09:39; Admin Dose 250 MLS/HR; Start 10/25/18 at 01:00 Acetaminophen (Tylenol Tab) 650 mg Q4 PRN PO FEVER Last administered on 11/08/18 18:01; Admin Dose 650 MG; Start 10/25/18 at 01:00 Sevelamer Carbonate (Renvela) 800 mg WITH MEALS PO Last administered on 11/17/18 17:34; Admin Dose 800 MG; Start 10/25/18 at 07:35 Midodrine (Proamatine) 5 mg TID@09,13,17 PO Last administered on 11/17/18 17:35; Admin Dose 5 MG; Start 10/26/18 at 09:00 Lidocaine (Xylocaine 1% (Mdv) 20 ml) 1 ml WITH DIALYSIS PRN INJ PRIOR TO CANULLATION/HD; Start 10/26/18 at 12:30 Ondansetron HCl (Zofran Inj) 4 mg Q4H PRN IV NAUSEA AND/OR VOMITING Last administered on 11/17/18 09:20; Admin Dose 4 MG; Start 10/26/18 at 15:30 Oxacillin Sodium 2 gm/Sodium Chloride 50 ml @ 100 mls/hr Q6 IVPB Last administ ered on 11/17/18 17:34; Admin Dose 100 MLS/HR; Start 10/30/18 at 18:00 Mupirocin (Bactroban) 1 applic BID TOP Last administered on 11/17/18 08:15; Admin Dose 1 APPLIC; Start 11/02/18 at 13:30 Heparin Sodium (Porcine) (Heparin (1000 Units/ml)) 6,100 unit AFTER DIALYSIS PRN CATHETER DIALYSIS Last administered on 11/16/18 14:27; Admin Dose 6,100 UNIT; Start 11/07/18 at 14:00 Morphine Sulfate (morphine) 3 mg Q4H PRN IV SEVERE PAIN LEVEL 7-10 Last administered on 11/17/18at 18:23; Admin Dose 3 MG; Start 11/08/18 at 19:30 Diphenhydramine HCl (Benadryl) 25 mg Q4H PRN IV ALLERGIC REACTION Last ad ministered on 11/17/18 18:23; Admin Dose 25 MG; Start 11/09/18 at 09:00 Metoprolol Tartrate (Lopressor) 5 mg Q4H PRN IV HR>110 Hold SBP<100 Last administered on 11/12/18at 11:52; Admin Dose 5 MG; Start 11/09/18 at 14:30 Epoetin Maxwell-epbx (Retacrit (Esrd)) 6,000 unit We@1700 SC Last administered on 11/16/18at 17:36; Admin Dose 6,000 UNIT; Start 11/16/18 at 17:00 GINGER HARDIN M.D. Nov 17, 2018 20:27
[2018-11-17 23:43] VITALS: BP 122/59; PULSE 79; RESP 19
[2018-11-18] VITALS (19 sets, daily range): BP systolic 100–145; BP diastolic 50–98; PULSE 79–127; RESP 19–20
[2018-11-18] MEDS: DIPHENHYDRAMINE 50 MG INJ IV PRN ×6 (02:32→23:30)
[2018-11-18] MEDS: morphine 4 MG/ML VIAL IV PRN ×6 (02:33→23:38)
[2018-11-18] MEDS: OXACILLIN 2 GM in SOD CHLORIDE 0.9% 50 ML IVPB SCH ×5 (06:36→18:38)
--- NOTE | 2018-11-18 08:41 | CONS ---
Assessment/Plan Assessment/Plan Assessment/Plan (Daily) 1. Septic shock s/p Levophed - now resolved 2. ESRD on HD MWF schedule , left femoral permacath for HD access 3. Bacteremia with Blood cx growing staph aureus -s/p removal of left permacath on 11/04/18- pt remained line free for 3 days then insertion of Right groin permacath on 11/07/18 which is removed due to hematoma around catheter site then pt subsequently had a new permacath placemen ton left groin on 11/10/18 4. H/o Leukemia currently on chemotherapy, last chem on 10/21/18 5. H/o Primary hyperparathyroidism, status post complete parathyroidectomy and partial left thyroid lobectomy 2 years ago. 6. H/o Anemia of ESRD 7, Difficult vascular Access 8. anemia of ESRD Plan: s/p Removal of Right groin permacath,due to pericatheter hematoma, now s/p left groin permacath placement- Hd today with 1 K bath due to hyperkalemia- pt will be on MWF schedule staph aureus bacteremia - IV abx oxacillin 2 gram IV Q 6 hr - ID following- to finish abx on 11/18/18 Continue other home medications, Midodrine 5 mg PO TID for BP support - Epogen 6000 units Q week will follow up Consultation Date/Type/Reason Admit Date/Time Oct 25, 2018 at 04:13 Initial Consult Date Type of Consult NEPHROLOGY Requesting Provider: LUANNE WALTER MD Date/Time of Note DATE: 11/18/18 TIME: 08:41 Exam/Review of Systems Exam Vitals Vital Signs Date Temp Pulse Resp B/P (MAP) Pulse Ox O2 O2 Flow FiO2 Time Delivery Rate 11/18/18 98.0 81 20 113/60 97 Room Air 07:17 (77) 11/17/18 2.0 22:53 Intake and Output 11/17/18 11/17/18 11/18/18 1515:00 23:00 07:00 IntakeIntake Total 50 ml 950 ml OutputOutput Total 2 ml BalanceBalance 50 ml 948 ml Exam Constitutional: alert, awake, no acute distress Respiratory: clear to auscultation Cardiovascular: regular rate and rhythm Gastrointestinal: soft, non-tender Musculoskeletal: nl extremities to inspection Extremities: normal pulses Neurological: nl mental status Additional Comments Left femoral hemodialysis catheter, left upper extremity AV fistula nonfunctional Results Result Diagram: 11/18/1852111/18/18521 Results 24hrs Laboratory Tests Test 11/18/18 05:22 White Blood Count 6.7 Red Blood Count 3.73 L Hemoglobin 11.9 L Hematocrit 37.3 Mean Corpuscular Volume 100.0 Mean Corpuscular Hemoglobin 31.9 Mean Corpuscular Hemoglobin Concent 31.9 L Red Cell Distribution Width 17.7 H Platelet Count 232 Mean Platelet Volume 11.2 H Immature Granulocytes % 0.300 Neutrophils % 50.6 Lymphocytes % 28.0 Monocytes % 7.3 Eosinophils % 12.9 H Basophils % 0.9 Nucleated Red Blood Cells % 0.0 Immature Granulocytes # 0.020 Neutrophils # 3.4 Lymphocytes # 1.9 Monocytes # 0.5 Eosinophils # 0.9 H Basophils # 0.1 Nucleated Red Blood Cells # 0.0 Sodium Level 137 Potassium Level 6.9 *H Chloride Level 94 L Carbon Dioxide Level 22 Anion Gap 21 H Blood Urea Nitrogen 89 #H Creatinine 10.08 H Est Glomerular Filtrat Rate mL/min 4 L Glucose Level 99 Calcium Level 8.2 L Total Bilirubin 0.1 L Direct Bilirubin 0.00 Indirect Bilirubin 0.1 Aspartate Amino Transf (AST/SGOT) 121 H Alanine Aminotransferase (ALT/SGPT) 123 H Alkaline Phosphatase 119 Total Protein 7.7 Albumin 4.0 Lipase 45 Medications Medication Current Medications Albumin Human 100 ml @ 100 mls/hr WITH DIALYSIS PRN IV SBP <90 DURING DIALYSIS Last administered on 10/24/18at 21:00; Admin Dose 100 MLS/HR; Start 10/24/18 at 18:00 Sodium Chloride 250 ml @ 250 mls/hr Q1H PRN IV tachycardia Last administered on 11/10/18at 09:39; Admin Dose 250 MLS/HR; Start 10/25/18 at 01:00 Acetaminophen (Tylenol Tab) 650 mg Q4 PRN PO FEVER Last administered on 11/08/18at 18:01; Admin Dose 650 MG; Start 10/25/18 at 01:00 Sevelamer Carbonate (Renvela) 800 mg WITH MEALS PO Last administered on 11/17/18at 17:34; Admin Dose 800 MG; Start 10/25/18 at 07:35 Midodrine (Proamatine) 5 mg TID@09,13,17 PO Last administered on 11/17/18 17: 35; Admin Dose 5 MG; Start 10/26/18 at 09:00 Lidocaine (Xylocaine 1% (Mdv) 20 ml) 1 ml WITH DIALYSIS PRN INJ PRIOR TO CANULLATION/HD; Start 10/26/18 at 12:30 Ondansetron HCl (Zofran Inj) 4 mg Q4H PRN IV NAUSEA AND/OR VOMITING Last administered on 11/17/18 09:20; Admin Dose 4 MG; Start 10/26/18 at 15:30 Oxacillin Sodium 2 gm/Sodium Chloride 50 ml @ 100 mls/hr Q6 IVPB Last administered on 11/18/18 06:36; Admin Dose 100 MLS/HR; Start 10/30/18 at 18:00 Mupirocin (Bactroban) 1 applic BID TOP Last administered on 11/17/18 21:00; Admin Dose 1 APPLIC; Start 11/02/18 at 13:30 Heparin Sodium (Porcine) (Heparin (1000 Units/ml)) 6,100 unit AFTER DIALYSIS PRN CATHETER DIALYSIS Last administered on 11/16/18 14:27; Admin Dose 6,100 UNIT; Start 11/07/18 at 14:00 Morphine Sulfate (morphine) 3 mg Q4H PRN IV SEVERE PAIN LEVEL 7-10 Last administered on 11/18/18 06:32; Admin Dose 3 MG; Start 11/08/18 at 19:30 Diphenhydramine HCl (Benadryl) 25 mg Q4H PRN IV ALLERGIC REACTION Last administered on 11/18/18 06:27; Admin Dose 25 MG; Start 11/09/18 at 09:00 Metoprolol Tartrate (Lopressor) 5 mg Q4H PRN IV HR>110 Hold SBP<100 Last administered on 11/12/18 11:52; Admin Dose 5 MG; Start 11/09/18 at 14:30 Epoetin Maxwell-epbx (Retacrit (Esrd)) 6,000 unit We@1700 SC Last administered on 11/16/18 17:36; Admin Dose 6,000 UNIT; Start 11/16/18 at 17:00 HENRIQUE GRANADO MD Nov 18, 2018 08:41
[2018-11-18] MEDS: SEVELAMER CARBONATE 800 MG TABLET PO SCH ×3 (08:55→18:39)
[2018-11-18] MEDS: MIDODRINE 5 MG TAB PO SCH ×3 (08:56→18:39)
[2018-11-18] MEDS: MUPIROCIN 2% 22 GM OINT TOP SCH ×2 (09:00→21:00)
--- NOTE | 2018-11-18 13:12 | PN ---
Date/Time of Note Date/Time of Note DATE: 11/18/18 TIME: 13:11 Assessment/Plan VTE Prophylaxis Risk score (from [facility])>0 risk: 5 SCD applied (from [facility]): No SCD contraindicated: other Pharmacological prophylaxis: other Pharm contraindication: other Lines/Catheters [facility]ter Type (from [facility]): Permacath Central line still needed: Yes Urinary Cath still in place: No Assessment/Plan Assessment/Plan -Hyperkalemia, status post Kayexalate yesterday, continue hemodialysis per nephrology. -Sepsis with DIMITRI bacteremia with fevers, leukocytosis, and hypotension. Continue on oxacillin 2 g every 6 hours until 11/[address] Arora is following in ID consultation. AMANDA is negative for vegetation. Dr. Barrera is following in cardiology consultation. -Hemodialysis dependent end-stage renal disease, continue dialysis per nephrology. Dr. Beltran is following in nephrology consultation. -Leukemia, patient is undergoing chemotherapy last chemo was on Wednesday10/11/18. -Anemia multifactorial chronic disease and recent chemo, status post blood transfusion, continue to monitor H&H, continue Epogen. -Mineral bone disease with renal osteodystrophy. No acute fractures, traumatic subluxations, osteomyelitis or diskitis per MRI of the lumbar spine. -Primary hyperparathyroidism, status post complete parathyroidectomy and partial left thyroid lobectomy 2 years ago. -Left femoral hemodialysis catheter present on admission. Further recommendations based on clinical course. Plan of care discussed with Dr. Turner. Result Diagram: 11/18/18 0522 11/18/18 0522 Results 24hrs Laboratory Tests Test 11/18/18 05:22 White Blood Count 6.7 Red Blood Count 3.73 L Hemoglobin 11.9 L Hematocrit 37.3 Mean Corpuscular Volume 100.0 Mean Corpuscular Hemoglobin 31.9 Mean Corpuscular Hemoglobin Concent 31.9 L Red Cell Distribution Width 17.7 H Platelet Count 232 Mean Platelet Volume 11.2 H Immature Granulocytes % 0.300 Neutrophils % 50.6 Lymphocytes % 28.0 Monocytes % 7.3 Eosinophils % 12.9 H Basophils % 0.9 Nucleated Red Blood Cells % 0.0 Immature Granulocytes # 0.020 Neutrophils # 3.4 Lymphocytes # 1.9 Monocytes # 0.5 Eosinophils # 0.9 H Basophils # 0.1 Nucleated Red Blood Cells # 0.0 Sodium Level 137 Potassium Level 6.9 *H Chloride Level 94 L Carbon Dioxide Level 22 Anion Gap 21 H Blood Urea Nitrogen 89 #H Creatinine 10.08 H Est Glomerular Filtrat Rate mL/min 4 L Glucose Level 99 Calcium Level 8.2 L Total Bilirubin 0.1 L Direct Bilirubin 0.00 Indirect Bilirubin 0.1 Aspartate Amino Transf (AST/SGOT) 121 H Alanine Aminotransferase (ALT/SGPT) 123 H Alkaline Phosphatase 119 Total Protein 7.7 Albumin 4.0 Lipase 45 Subjective 24 Hr Interval Summary Free Text/Dictation K 6.9 today;will get HD today cont to monitor dw staff Constitutional: requiring O2 Eyes: no complaints ENT: no complaints Respiratory: no complaints Cardiovascular: no complaints Gastrointestinal: no complaints Musculoskeletal: no complaints Neurologic: no complaints Endocrine: no complaints Psychological: nl mood/affect Exam/Review of Systems Exam Vitals Vital Signs Date Temp Pulse Resp B/P (MAP) Pulse Ox O2 O2 Flow FiO2 Time Delivery Rate 11/18/18 97.6 89 20 122/86 100 Room Air 11:20 (98) 11/18/18 2.0 07:20 Intake and Output 11/17/18 11/17/18 11/18/18 1515:00 23:00 07:00 IntakeIntake Total 50 ml 950 ml OutputOutput Total 2 ml BalanceBalance 50 ml 948 ml Constitutional: alert, well developed Psych: nl mood/affect Head: normocephalic Eyes: nl lids, nl sclera ENMT: nl external ears & nose Neck: non-tender Cardiovascular: nl pulses, other (s1s2) Gastrointestinal: soft Musculoskeletal: muscle weakness Extremities: normal pulses Neurological: nl speech, other (alert/oriented) Skin: nl turgor Lymph: nontender Results Results 24hrs Laboratory Tests Test 11/18/18 05:22 White Blood Count 6.7 Red Blood Count 3.73 L Hemoglobin 11.9 L Hematocrit 37.3 Mean Corpuscular Volume 100.0 Mean Corpuscular Hemoglobin 31.9 Mean Corpuscular Hemoglobin Concent 31.9 L Red Cell Distribution Width 17.7 H Platelet Count 232 Mean Platelet Volume 11.2 H Immature Granulocytes % 0.300 Neutrophils % 50.6 Lymphocytes % 28.0 Monocytes % 7.3 Eosinophils % 12.9 H Basophils % 0.9 Nucleated Red Blood Cells % 0.0 Immature Granulocytes # 0.020 Neutrophils # 3.4 Lymphocytes # 1.9 Monocytes # 0.5 Eosinophils # 0.9 H Basophils # 0.1 Nucleated Red Blood Cells # 0.0 Sodium Level 137 Potassium Level 6.9 *H Chloride Level 94 L Carbon Dioxide Level 22 Anion Gap 21 H Blood Urea Nitrogen 89 #H Creatinine 10.08 H Est Glomerular Filtrat Rate mL/min 4 L Glucose Level 99 Calcium Level 8.2 L Total Bilirubin 0.1 L Direct Bilirubin 0.00 Indirect Bilirubin 0.1 Aspartate Amino Transf (AST/SGOT) 121 H Alanine Aminotransferase (ALT/SGPT) 123 H Alkaline Phosphatase 119 Total Protein 7.7 Albumin 4.0 Lipase 45 Medications Medication Current Medications Albumin Human 100 ml @ 100 mls/hr WITH DIALYSIS PRN IV SBP <90 DURING DIALYSIS Last administered on 10/24/18 21:00; Admin Dose 100 MLS/HR; Start 10/24/18 at 18:00 Sodium Chloride 250 ml @ 250 mls/hr Q1H PRN IV tachycardia Last administered on 11/10/18 09:39; Admin Dose 250 MLS/HR; Start 10/25/18 at 01:00 Acetaminophen (Tylenol Tab) 650 mg Q4 PRN PO FEVER Last administered on 11/08/18 18:01; Admin Dose 650 MG; Start 10/25/18 at 01:00 Sevelamer Carbonate (Renvela) 800 mg WITH MEALS PO Last administered on 11/18/18 12:53; Admin Dose 800 MG; Start 10/25/18 at 07:35 Midodrine (Proamatine) 5 mg TID@09,13,17 PO Last administered on 11/18/18 12:54; Admin Dose 5 MG; Start 10/26/18 at 09:00 Lidocaine (Xylocaine 1% (Mdv) 20 ml) 1 ml WITH DIALYSIS PRN INJ PRIOR TO CANULLATION/HD; Start 10/26/18 at 12:30 Ondansetron HCl (Zofran Inj) 4 mg Q4H PRN IV NAUSEA AND/OR VOMITING Last administered on 11/17/18 09:20; Admin Dose 4 MG; Start 10/26/18 at 15:30 Oxacillin Sodium 2 gm/Sodium Chloride 50 ml @ 100 mls/hr Q6 IVPB Last administered on 11/18/18 12:54; Admin Dose 100 MLS/HR; Start 10/30/18 at 18:00 Mupirocin (Bactroban) 1 applic BID TOP Last administered on 11/17/18 21:00; Admin Dose 1 APPLIC; Start 11/02/18 at 13:30 Heparin Sodium (Porcine) (Heparin (1000 Units/ml)) 6,100 unit AFTER DIALYSIS PRN CATHETER DIALYSIS Last administered on 11/16/18 14:27; Admin Dose 6,100 UNIT; Start 11/07/18 at 14:00 Morphine Sulfate (morphine) 3 mg Q4H PRN IV SEVERE PAIN LEVEL 7-10 Last administered on 11/18/18 10:33; Admin Dose 3 MG; Start 11/08/18 at 19:30 Diphenhydramine HCl (Benadryl) 25 mg Q4H PRN IV ALLERGIC REACTION Last administered on 11/18/18 10:31; Admin Dose 25 MG; Start 11/09/18 at 09:00 Metoprolol Tartrate (Lopressor) 5 mg Q4H PRN IV HR>110 Hold SBP<100 Last administered on 11/12/18 11:52; Admin Dose 5 MG; Start 11/09/18 at 14:30 Epoetin Maxwell-epbx (Retacrit (Esrd)) 6,000 unit We@1700 SC Last administered on 11/16/18 17:36; Admin Dose 6,000 UNIT; Start 11/16/18 at 17:00 EDILMA CASIANO Nov 18, 2018 13:12
--- NOTE | 2018-11-18 13:38 | CONS ---
Assessment/Plan Assessment/Plan Hospital Course (Demo Recall) IMPRESSION: 1. Bacteremia, assess for endocarditis, intracardiac source of infection. s/p AMANDA 11/04 with no definite signs intracardiac infection 2. Abnormal electrocardiogram with lateral T-wave inversion. 3. Hypertension, mainly diastolic labile, currently improved. 4. Leukemia. 5. Anemia. 6. Initial hypotension. Initially with midodrine- somewhat labile but not requiring midodrine 7. Tachycardia-S tach now improved and tolerating HD at this time 8. ESRD on HD s/p new R femoral HD catheter Recc: -Tele -continue abx's and f/u cx data -HD for volume removal as tolerated -IVP PRN BB -Contineu midodrine as necessary -Rx episodes of N/V Consultation Date/Type/Reason Admit Date/Time Oct 25, 2018 at 04:13 Initial Consult Date 10/25/18 Type of Consult Cardiology Reason for Consultation Bacteremia Requesting Provider: LUANNE WALTER MD Date/Time of Note DATE: 11/18/18 TIME: 13:36 Exam/Review of Systems Vital Signs Vitals Vital Signs Date Temp Pulse Resp B/P (MAP) Pulse Ox O2 O2 Flow FiO2 Time Delivery Rate 11/18/18 97.6 89 20 122/86 100 Room Air 11:20 (98) 11/18/18 2.0 07:20 Intake and Output 11/17/18 11/17/18 11/18/18 1515:00 23:00 07:00 IntakeIntake Total 50 ml 950 ml OutputOutput Total 2 ml BalanceBalance 50 ml 948 ml Exam Exam Review of Systems: CONSTITUTIONAL: No fevers, chills. PULMONARY: No sob CARDIOVASCULAR: No chest pain/palpitations GASTROINTESTINAL: No nausea/vomiting. GENITOURINARY: No hematuria/dysuria. MUSCULOSKELETAL: No myagias/arthalgias. PSYCHIATRIC: The patient denies depression. NEUROLOGIC: No weakness Constitutional: alert Psych: no complaints Head: normocephalic ENMT: mucosa pink and moist Neck: supple, jvd (9 cm water) Respiratory: diminished breath sounds Cardiovascular: regular rate and rhythm Gastrointestinal: soft, non-tender Musculoskeletal: muscle tone (normal) Extremities: pitting pedal edema (trace/B) Labs Result Diagram: 11/18/1852111/18/18521 Results 24hrs Laboratory Tests Test 11/18/18 05:22 White Blood Count 6.7 Red Blood Count 3.73 L Hemoglobin 11.9 L Hematocrit 37.3 Mean Corpuscular Volume 100.0 Mean Corpuscular Hemoglobin 31.9 Mean Corpuscular Hemoglobin Concent 31.9 L Red Cell Distribution Width 17.7 H Platelet Count 232 Mean Platelet Volume 11.2 H Immature Granulocytes % 0.300 Neutrophils % 50.6 Lymphocytes % 28.0 Monocytes % 7.3 Eosinophils % 12.9 H Basophils % 0.9 Nucleated Red Blood Cells % 0.0 Immature Granulocytes # 0.020 Neutrophils # 3.4 Lymphocytes # 1.9 Monocytes # 0.5 Eosinophils # 0.9 H Basophils # 0.1 Nucleated Red Blood Cells # 0.0 Sodium Level 137 Potassium Level 6.9 *H Chloride Level 94 L Carbon Dioxide Level 22 Anion Gap 21 H Blood Urea Nitrogen 89 #H Creatinine 10.08 H Est Glomerular Filtrat Rate mL/min 4 L Glucose Level 99 Calcium Level 8.2 L Total Bilirubin 0.1 L Direct Bilirubin 0.00 Indirect Bilirubin 0.1 Aspartate Amino Transf (AST/SGOT) 121 H Alanine Aminotransferase (ALT/SGPT) 123 H Alkaline Phosphatase 119 Total Protein 7.7 Albumin 4.0 Lipase 45 Medications Medications Current Medications Albumin Human 100 ml @ 100 mls/hr WITH DIALYSIS PRN IV SBP <90 DURING DIALYSIS Last administered on 10/24/18 21:00; Admin Dose 100 MLS/HR; Start 10/24/18 at 18:00 Sodium Chloride 250 ml @ 250 mls/hr Q1H PRN IV tachycardia Last administered on 11/10/18 09:39; Admin Dose 250 MLS/HR; Start 10/25/18 at 01:00 Acetaminophen (Tylenol Tab) 650 mg Q4 PRN PO FEVER Last administered on 11/08/18 18:01; Admin Dose 650 MG; Start 10/25/18 at 01:00 Sevelamer Carbonate (Renvela) 800 mg WITH MEALS PO Last administered on 11/18/18 12:53; Admin Dose 800 MG; Start 10/25/18 at 07:35 Midodrine (Proamatine) 5 mg TID@09,13,17 PO Last administered on 11/18/18 12:54; Admin Dose 5 MG; Start 10/26/18 at 09:00 Lidocaine (Xylocaine 1% (Mdv) 20 ml) 1 ml WITH DIALYSIS PRN INJ PRIOR TO CANULLATION/HD; Start 10/26/18 at 12:30 Ondansetron HCl (Zofran Inj) 4 mg Q4H PRN IV NAUSEA AND/OR VOMITING Last administered on 11/17/18 09:20; Admin Dose 4 MG; Start 10/26/18 at 15:30 Oxacillin Sodium 2 gm/Sodium Chloride 50 ml @ 100 mls/hr Q6 IVPB Last administered on 11/18/18 12:54; Admin Dose 100 MLS/HR; Start 10/30/18 at 18:00 Mupirocin (Bactroban) 1 applic BID TOP Last administered on 11/17/18 21:00; Admin Dose 1 APPLIC; Start 11/02/18 at 13:30 Heparin Sodium (Porcine) (Heparin (1000 Units/ml)) 6,100 unit AFTER DIALYSIS PRN CATHETER DIALYSIS Last administered on 11/16/18 14:27; Admin Dose 6,100 UNIT; Start 11/07/18 at 14:00 Morphine Sulfate (morphine) 3 mg Q4H PRN IV SEVERE PAIN LEVEL 7-10 Last ad ministered on 11/18/18 10:33; Admin Dose 3 MG; Start 11/08/18 at 19:30 Diphenhydramine HCl (Benadryl) 25 mg Q4H PRN IV ALLERGIC REACTION Last administered on 11/18/18 10:31; Admin Dose 25 MG; Start 11/09/18 at 09:00 Metoprolol Tartrate (Lopressor) 5 mg Q4H PRN IV HR>110 Hold SBP<100 Last administered on 11/12/18 11:52; Admin Dose 5 MG; Start 11/09/18 at 14:30 Epoetin Maxwell-epbx (Retacrit (Esrd)) 6,000 unit We@1700 SC Last administered on 11/16/18 17:36; Admin Dose 6,000 UNIT; Start 11/16/18 at 17:00 HENRIQUE AGRCIA Nov 18, 2018 13:38
[2018-11-18] MEDS: HEPARIN 1000 UNITS/ML 10 ML INJ HE SCH ×2 (14:41)
--- NOTE | 2018-11-18 16:18 | CONS ---
Assessment/Plan Assessment/Plan Hospital Course (Demo Recall) # sepsis, heme/onc - s/p sepsis due to bacteremia, recurrent. Resolved - s/p persistent and recurrent bacteremia on 10/24, 10/25, and 10/26 due to MSSA; repeat blood cultures on 10/28 & 11/02 were negative; transthoracic echo did not mention vegetation; AMANDA showed no vegetation - the source of her bacteremia was her HD catheter. No other focus of infection was found: WBC tagged scan on 11/05/2018 showed several non-specific foci of increased activity along R anterior chest wall;however, chest CT on 11/07/2018 showed no fluid collection identified within the chest wall. 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 Per Pt, she had pruritus, "bumps" and green discharge from the catheter site. Its culture on 10/31/2018 grew S. aureus. It was removed on 11/04/2018 - s/p placement of an HD catheter on R groin on 11/07/2018-->removed on 11/10/18 - s/p placement of an HD catheter on L groin on 11/10/2018 - soft tissue CHRISTEL of b/l groin on 11/10/2018 did not show hematoma or active signs of bleeding or abscess, on 11/16/2018 showed prominent lymph node - h/o removal of permacath on R chest wall on 07/14/2018 - h/o R femoral HD justin catheter placement 07/14/2018, replaced by HD permacath 07/19/2018 - h/o pain/increased sensitivity of R groin after replacement of the Perez with permacath. soft tissue CHRISTEL on 07/20/2018 showed no abnormality at the site of the palpable lesion adjacent to R inguinal region HD catheter - h/o swelling on the scalp and chest wall, possibly due to collateral veins as a result of thrombosis of AVF - h/o removal and placement of a new Perez catheter in 05/2018. The culture of the tip of the removed catheter, blood cultures and swab of the catheter site were negative. 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 Last used for HD in 04/2018. Was scheduled to get a new graft in [facility] as outpatient - h/o 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 Her last cycle was in early 2018 # GI//cardiac - h/o biliary colic: according to Pt, she had received authorization for elective cholecystectomy as outpatient - h/o MRCP in 07/2017: negative for cholelithiasis or cholecystitis - amenorrhea since AVF creation in 2016 - I reviewed Pt's cardiac rhythm. 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 Pt took renally dosed valACV (07/15/2018-07/17/2018) - adverse reaction to vancomycin (pruritus) - adverse reaction to linezolid (thrombocytopenia). Linezolid was discontinued (06/12/2018-06/17/2018) - ?adverse reaction to cefazolin (severe abd pain/cramping, although pt tolerated a 14 day course of cefazolin in 06/2018) - painful nodule on L thumb; X-ray shows possible subcutaneous mass adjacent to the radial aspect of the first metacarpal. recommendations: - today complete renally dosed oxacillin 2gm IV q6 hours (10/30/2018-) for 2 weeks after removal of her HD catheter, i.e. 11/04/18-11/18/18 management d/w Pt, her HD nurse and family members Consultation Date/Type/Reason Admit Date/Time Oct 25, 2018 at 04:13 Initial Consult Date 10/25/18 Type of Consult ID Requesting Provider: LUANNE WALTER MD Date/Time of Note DATE: 11/18/18 TIME: 16:15 24 HR Interval Summary Constitutional: improved Detailed Summary Eyes: no complaints ENT: no complaints Respiratory: no complaints Cardiovascular: other (feels pain on the scalp and chest wall) Gastrointestinal: nausea, vomiting Genitourinary: other (anuria) Skin: pruritis Neurologic: No no complaints Exam/Review of Systems Exam Vitals Vital Signs Date Temp Pulse Resp B/P (MAP) Pulse Ox O2 O2 Flow FiO2 Time Delivery Rate 11/18/18 98.0 83 20 117/80 99 15:32 (92) 11/18/18 Room Air 14:00 11/18/18 2.0 07:20 Intake and Output 11/17/18 11/17/18 11/18/18 1515:00 23:00 07:00 IntakeIntake Total 50 ml 950 ml OutputOutput Total 2 ml BalanceBalance 50 ml 948 ml Constitutional: alert, frail Psych: no complaints, nl mood/affect Head: normocephalic, atraumatic, other (alopecia) Eyes: nl conjunctiva, nl lids, nl sclera ENMT: nl external ears & nose, nl nasal mucosa & septum, mucosa pink and moist Neck: non-tender Respiratory: clear to auscultation, normal air movement Cardiovascular: regular rate and rhythm, nl pulses; No edema Gastrointestinal: soft, non-tender; No distended, No tender Musculoskeletal: swelling (b/l groin but not induratedor erythematous) Extremities: No edema Neurological: DIRECTOR DATABASE II-XII intact, nl mental status, nl speech Skin: rash or lesions (numerous folluculitic lesions on the face, neck and extremities) Results Result Diagram: 11/18/1822 11/18/18 0522 Results 24hrs Laboratory Tests Test 11/18/18 05:22 White Blood Count 6.7 Red Blood Count 3.73 L Hemoglobin 11.9 L Hematocrit 37.3 Mean Corpuscular Volume 100.0 Mean Corpuscular Hemoglobin 31.9 Mean Corpuscular Hemoglobin Concent 31.9 L Red Cell Distribution Width 17.7 H Platelet Count 232 Mean Platelet Volume 11.2 H Immature Granulocytes % 0.300 Neutrophils % 50.6 Lymphocytes % 28.0 Monocytes % 7.3 Eosinophils % 12.9 H Basophils % 0.9 Nucleated Red Blood Cells % 0.0 Immature Granulocytes # 0.020 Neutrophils # 3.4 Lymphocytes # 1.9 Monocytes # 0.5 Eosinophils # 0.9 H Basophils # 0.1 Nucleated Red Blood Cells # 0.0 Sodium Level 137 Potassium Level 6.9 *H Chloride Level 94 L Carbon Dioxide Level 22 Anion Gap 21 H Blood Urea Nitrogen 89 #H Creatinine 10.08 H Est Glomerular Filtrat Rate mL/min 4 L Glucose Level 99 Calcium Level 8.2 L Total Bilirubin 0.1 L Direct Bilirubin 0.00 Indirect Bilirubin 0.1 Aspartate Amino Transf (AST/SGOT) 121 H Alanine Aminotransferase (ALT/SGPT) 123 H Alkaline Phosphatase 119 Total Protein 7.7 Albumin 4.0 Lipase 45 Medications Medication Current Medications Albumin Human 100 ml @ 100 mls/hr WITH DIALYSIS PRN IV SBP <90 DURING DIALYSIS Last administered on 10/24/18 21:00; Admin Dose 100 MLS/HR; Start 10/24/18 at 18:00 Sodium Chloride 250 ml @ 250 mls/hr Q1H PRN IV tachycardia Last administered on 11/10/18 09:39; Admin Dose 250 MLS/HR; Start 10/25/18 at 01:00 Acetaminophen (Tylenol Tab) 650 mg Q4 PRN PO FEVER Last administered on 18:01; Admin Dose 650 MG; Start 10/25/18 at 01:00 Sevelamer Carbonate (Renvela) 800 mg WITH MEALS PO Last administered on 11/18/18 12:53; Admin Dose 800 MG; Start 10/25/18 at 07:35 Midodrine (Proamatine) 5 mg TID@09,13,17 PO Last administered on 11/18/18 12:54; Admin Dose 5 MG; Start 10/26/18 at 09:00 Lidocaine (Xylocaine 1% (Mdv) 20 ml) 1 ml WITH DIALYSIS PRN INJ PRIOR TO CANULLATION/HD; Start 10/26/18 at 12:30 Ondansetron HCl (Zofran Inj) 4 mg Q4H PRN IV NAUSEA AND/OR VOMITING Last admi nistered on 11/17/18 09:20; Admin Dose 4 MG; Start 10/26/18 at 15:30 Oxacillin Sodium 2 gm/Sodium Chloride 50 ml @ 100 mls/hr Q6 IVPB Last administered on 11/18/18 12:54; Admin Dose 100 MLS/HR; Start 10/30/18 at 18:00 Mupirocin (Bactroban) 1 applic BID TOP Last administered on 11/17/18 21:00; Ad min Dose 1 APPLIC; Start 11/02/18 at 13:30 Heparin Sodium (Porcine) (Heparin (1000 Units/ml)) 6,100 unit AFTER DIALYSIS PRN CATHETER DIALYSIS Last administered on 11/16/18 14:27; Admin Dose 6,100 UN IT; Start 11/07/18 at 14:00 Morphine Sulfate (morphine) 3 mg Q4H PRN IV SEVERE PAIN LEVEL 7-10 Last administered on 11/18/18 14:36; Admin Dose 3 MG; Start 11/08/18 at 19:30 Diphenhydramine HCl (Benadryl) 25 mg Q4H PRN IV ALLERGIC REACTION Last administered on 11/18/18 14:36; Admin Dose 25 MG; Start 11/09/18 at 09:00 Metoprolol Tartrate (Lopressor) 5 mg Q4H PRN IV HR>110 Hold SBP<100 Last admi nistered on 11/12/18 11:52; Admin Dose 5 MG; Start 11/09/18 at 14:30 Epoetin Maxwell-epbx (Retacrit (Esrd)) 6,000 unit We@1700 SC Last administered on 11/16/18 17:36; Admin Dose 6,000 UNIT; Start 11/16/18 at 17:00 Heparin Sodium (Porcine) (Heparin (1000 Units/ml)) 500 unit WITH DIALYSIS HE Last administered on 11/18/18 14:41; Admin Dose 500 UNIT; Start 11/18/18 at 14:00 Heparin Sodium (Porcine) (Heparin (1000 Units/ml)) 1,500 unit WITH DIALYSIS HE Last administered on 11/18/18 14:41; Admin Dose 1,500 UNIT; Start 11/18/18 at 14:00 GINGER HARDIN M.D. Nov 18, 2018 16:18
[2018-11-18] MEDS: HEPARIN 1000 UNITS/ML 10 ML INJ CATHETER PRN (18:00)
[2018-11-19] VITALS (7 sets, daily range): BP systolic 91–113; BP diastolic 54–67; PULSE 79–103; RESP 16–19
[2018-11-19] MEDS: morphine 4 MG/ML VIAL IV PRN ×6 (04:05→23:39)
[2018-11-19] MEDS: DIPHENHYDRAMINE 50 MG INJ IV PRN ×6 (04:05→22:57)
[2018-11-19] MEDS: SEVELAMER CARBONATE 800 MG TABLET PO SCH ×4 (07:55→17:50)
[2018-11-19] MEDS: MUPIROCIN 2% 22 GM OINT TOP SCH ×2 (08:40→21:45)
[2018-11-19] MEDS: MIDODRINE 5 MG TAB PO SCH ×3 (08:40→17:06)
--- NOTE | 2018-11-19 12:06 | PN ---
Date/Time of Note Date/Time of Note DATE: 11/19/18 TIME: 12:06 Assessment/Plan VTE Prophylaxis Risk score (from Ns)>0 risk: 5 SCD applied (from Ns): No SCD contraindicated: other Pharmacological prophylaxis: LMWH Lines/Catheters IV Catheter Type [facility]from [facility] PERMACATH Urinary Cath still in place: No Assessment/Plan Hospital Course -Hyperkalemia, status post Kayexalate yesterday, continue hemodialysis per nephrology. -Sepsis with DIMITRI bacteremia with fevers, leukocytosis, and hypotension. Continue on oxacillin 2 g every 6 hours until 11/[address] Arora is following in ID consultation. AMANDA is negative for vegetation. Dr. Barrera is following in cardiology consultation. -Hemodialysis dependent end-stage renal disease, continue dialysis per nephrology. Dr. Beltran is following in nephrology consultation. -Leukemia, patient is undergoing chemotherapy last chemo was on Wednesday10/11/18. -Anemia multifactorial chronic disease and recent chemo, status post blood transfusion, continue to monitor H&H, continue Epogen. -Mineral bone disease with renal osteodystrophy. No acute fractures, traumatic subluxations, osteomyelitis or diskitis per MRI of the lumbar spine. -Primary hyperparathyroidism, status post complete parathyroidectomy and partial left thyroid lobectomy 2 years ago. -Left femoral hemodialysis catheter present on admission. Result Diagram: 11/18/1852111/18/18521 Subjective 24 Hr Interval Summary Free Text/Dictation Patient complaint of lightheadedness, nausea/vomiting Exam/Review of Systems Exam Vitals Vital Signs Date Temp Pulse Resp B/P (MAP) Pulse Ox O2 O2 Flow FiO2 Time Delivery Rate 11/19/18 98.5 93 16 107/61 98 Room Air 07:45 (76) 11/18/18 2.0 07:20 Intake and Output 11/18/18 11/18/18 11/19/18 1515:00 23:00 07:00 IntakeIntake Total 410 ml 1280 ml 480 ml OutputOutput Total 200 ml 3400 ml BalanceBalance 210 ml -2120 ml 480 ml Constitutional: well developed Head: normocephalic, atraumatic Neck: supple Respiratory: diminished breath sounds Cardiovascular: regular rate and rhythm Gastrointestinal: soft, non-tender Extremities: normal pulses Medications Medication Current Medications Albumin Human 100 ml @ 100 mls/hr WITH DIALYSIS PRN IV SBP <90 DURING DIALYSIS Last administered on 10/24/18 21:00; Admin Dose 100 MLS/HR; Start 10/24/18 at 18:00 Sodium Chloride 250 ml @ 250 mls/hr Q1H PRN IV tachycardia Last administered on 11/10/18 09:39; Admin Dose 250 MLS/HR; Start 10/25/18 at 01:00 Acetaminophen (Tylenol Tab) 650 mg Q4 PRN PO FEVER Last administered on 11/08/18 18:01; Admin Dose 650 MG; Start 10/25/18 at 01:00 Sevelamer Carbonate (Renvela) 800 mg WITH MEALS PO Last administered on 11/18/18 18:39; Admin Dose 800 MG; Start 10/25/18 at 07:35 Midodrine (Proamatine) 5 mg TID@09,13,17 PO Last administered on 11/19/18 08:40; Admin Dose 5 MG; Start 10/26/18 at 09:00 Lidocaine (Xylocaine 1% (Mdv) 20 ml) 1 ml WITH DIALYSIS PRN INJ PRIOR TO CANULLATION/HD; Start 10/26/18 at 12:30 Ondansetron HCl (Zofran Inj) 4 mg Q4H PRN IV NAUSEA AND/OR VOMITING Last administered on 11/17/18 09:20; Admin Dose 4 MG; Start 10/26/18 at 15:30 Mupirocin (Bactroban) 1 applic BID TOP Last administered on 11/19/18 08:40; Admin Dose 1 APPLIC; Start 11/02/18 at 13:30 Heparin Sodium (Porcine) (Heparin (1000 Units/ml)) 6,100 unit AFTER DIALYSIS PRN CATHETER DIALYSIS Last administered on 11/18/18 18:00; Admin Dose 6,100 UNIT; Start 11/07/18 at 14:00 Morphine Sulfate (morphine) 3 mg Q4H PRN IV SEVERE PAIN LEVEL 7-10 Last administered on 11/19/18 11:38; Admin Dose 3 MG; Start 11/08/18 at 19:30 Diphenhydramine HCl (Benadryl) 25 mg Q4H PRN IV ALLERGIC REACTION Last administered on 11/19/18 11:38; Admin Dose 25 MG; Start 11/09/18 at 09:00 Metoprolol Tartrate (Lopressor) 5 mg Q4H PRN IV HR>110 Hold SBP<100 Last administered on 11/12/18 11:52; Admin Dose 5 MG; Start 11/09/18 at 14:30 Epoetin Maxwell-epbx (Retacrit (Esrd)) 6,000 unit We@1700 SC Last administered on 11/16/18 17:36; Admin Dose 6,000 UNIT; Start 11/16/18 at 17:00 Heparin Sodium (Porcine) (Heparin (1000 Units/ml)) 500 unit WITH DIALYSIS HE Last administered on 11/18/18 14:41; Admin Dose 500 UNIT; Start 11/18/18 at 14:00 Heparin Sodium (Porcine) (Heparin (1000 Units/ml)) 1,500 unit WITH DIALYSIS HE Last administered on 11/18/18 14:41; Admin Dose 1,500 UNIT; Start 11/18/18 at 14:00 ANGELY PANG Nov 19, 2018 12:06
--- NOTE | 2018-11-19 15:55 | CONS ---
Assessment/Plan Assessment/Plan Hospital Course (Demo Recall) IMPRESSION: 1. Bacteremia, assess for endocarditis, intracardiac source of infection. s/p AMANDA 11/04 with no definite signs intracardiac infection 2. Abnormal electrocardiogram with lateral T-wave inversion. 3. Hypertension, mainly diastolic labile, currently improved. 4. Leukemia. 5. Anemia. 6. Initial hypotension. Initially with midodrine- somewhat labile but not requiring midodrine 7. Tachycardia-now improved on midodrine BP support 8. ESRD on HD s/p new R femoral HD catheter Recc: -Tele -continue abx's and f/u cx data -HD for volume removal as tolerated -IVP PRN BB -Contineu midodrine BP support -Rx episodes of N/V Consultation Date/Type/Reason Admit Date/Time Oct 25, 2018 at 04:13 Initial Consult Date 10/25/18 Type of Consult Cardiology Reason for Consultation bacteremia/hypotension Requesting Provider: LUANNE WALTER MD Date/Time of Note DATE: 11/19/18 TIME: 15:53 Exam/Review of Systems Vital Signs Vitals Vital Signs Date Temp Pulse Resp B/P (MAP) Pulse Ox O2 O2 Flow FiO2 Time Delivery Rate 11/19/18 97.8 103 18 103/67 98 Room Air 15:24 (79) 11/18/18 2.0 07:20 Intake and Output 11/18/18 11/18/18 11/19/18 1515:00 23:00 07:00 IntakeIntake Total 410 ml 1280 ml 480 ml OutputOutput Total 200 ml 3400 ml BalanceBalance 210 ml -2120 ml 480 ml Exam Exam Review of Systems: CONSTITUTIONAL: No fevers, chills. PULMONARY: No sob CARDIOVASCULAR: No chest pain/palpitations GASTROINTESTINAL: No nausea/vomiting. GENITOURINARY: No hematuria/dysuria. MUSCULOSKELETAL: No myagias/arthalgias. PSYCHIATRIC: The patient denies depression. NEUROLOGIC: No weakness Constitutional: alert Psych: no complaints Head: normocephalic ENMT: mucosa pink and moist Neck: supple, jvd (9 cm water) Respiratory: diminished breath sounds (at bases/B) Cardiovascular: regular rate and rhythm Gastrointestinal: soft, non-tender Musculoskeletal: muscle tone (normal) Extremities: edema (none) Neurological: other (No focal deficits) Labs Result Diagram: 11/18/1852111/18/18521 Medications Medications Current Medications Albumin Human 100 ml @ 100 mls/hr WITH DIALYSIS PRN IV SBP <90 DURING DIALYSIS Last administered on 10/24/18 21:00; Admin Dose 100 MLS/HR; Start 10/24/18 at 18:00 Sodium Chloride 250 ml @ 250 mls/hr Q1H PRN IV tachycardia Last administered on 11/10/18 09:39; Admin Dose 250 MLS/HR; Start 10/25/18 at 01:00 Acetaminophen (Tylenol Tab) 650 mg Q4 PRN PO FEVER Last administered on 11/08/18 18:01; Admin Dose 650 MG; Start 10/25/18 at 01:00 Sevelamer Carbonate (Renvela) 800 mg WITH MEALS PO Last administered on 11/19/18 13:45; Admin Dose 800 MG; Start 10/25/18 at 07:35 Midodrine (Proamatine) 5 mg TID@09,13,17 PO Last administered on 11/19/18 13:46; Admin Dose 5 MG; Start 10/26/18 at 09:00 Lidocaine (Xylocaine 1% (Mdv) 20 ml) 1 ml WITH DIALYSIS PRN INJ PRIOR TO C ANULLATION/HD; Start 10/26/18 at 12:30 Ondansetron HCl (Zofran Inj) 4 mg Q4H PRN IV NAUSEA AND/OR VOMITING Last administered on 11/17/18 09:20; Admin Dose 4 MG; Start 10/26/18 at 15:30 Mupirocin (Bactroban) 1 applic BID TOP Last administered on 11/19/18 08:40; Admin Dose 1 APPLIC; Start 11/02/18 at 13:30 Heparin Sodium (Porcine) (Heparin (1000 Units/ml)) 6,100 unit AFTER DIALYSIS PRN CATHETER DIALYSIS Last administered on 11/18/18 18:00; Admin Dose 6,100 UNIT; Start 11/07/18 at 14:00 Morphine Sulfate (morphine) 3 mg Q4H PRN IV SEVERE PAIN LEVEL 7-10 Last administered on 11/19/18 15:41; Admin Dose 3 MG; Start 11/08/18 at 19:30 Diphenhydramine HCl (Benadryl) 25 mg Q4H PRN IV ALLERGIC REACTION Last administered on 11/19/18 15:40; Admin Dose 25 MG; Start 11/09/18 at 09:00 Metoprolol Tartrate (Lopressor) 5 mg Q4H PRN IV HR>110 Hold SBP<100 Last administered on 11/12/18 11:52; Admin Dose 5 MG; Start 11/09/18 at 14:30 Epoetin Maxwell-epbx (Retacrit (Esrd)) 6,000 unit We@1700 SC Last administered on 11/16/18 17:36; Admin Dose 6,000 UNIT; Start 11/16/18 at 17:00 Heparin Sodium (Porcine) (Heparin (1000 Units/ml)) 500 unit WITH DIALYSIS HE Last administered on 11/18/18 14:41; Admin Dose 500 UNIT; Start 11/18/18 at 14:00 Heparin Sodium (Porcine) (Heparin (1000 Units/ml)) 1,500 unit WITH DIALYSIS HE Last administered on 11/18/18 14:41; Admin Dose 1,500 UNIT; Start 11/18/18 at 14:00 HENRIQUE GARCIA Nov 19, 2018 15:55
--- NOTE | 2018-11-19 16:55 | CONS ---
Assessment/Plan Assessment/Plan Assessment/Plan (Daily) - Hyperkalemia- K 6.9 as of ; SP HD yesterday - we will do BMP now- fu result - staff to notify MD for abnormal K result 1. Septic shock s/p Levophed - now resolved 2. ESRD on HD MWF schedule , left femoral permacath for HD access 3. Bacteremia with Blood cx growing staph aureus -s/p removal of left permacath on 11/04/18- pt remained line free for 3 days then insertion of Right groin p ermacath on 11/07/18 which is removed due to hematoma around catheter site then pt subsequently had a new permacath placemen ton left groin on 11/10/18 4. H/o Leukemia currently on chemotherapy, last chem on 10/21/18 5. H/o Primary hyperparathyroidism, status post complete parathyroidectomy and partial left thyroid lobectomy 2 years ago. 6. H/o Anemia of ESRD 7, Difficult vascular Access 8. anemia of ESRD Plan: s/p Removal of Right groin permacath,due to pericatheter hematoma, now s/p left groin permacath placement- Hd today with 1 K bath due to hyperkalemia- pt will be on MWF schedule staph aureus bacteremia - IV abx oxacillin 2 gram IV Q 6 hr - ID following- to finish abx on 11/18/18 Continue other home medications, Midodrine 5 mg PO TID for BP support - Epogen 6000 units Q week Patient seen in collaboration with Dr Adore Beltran. Plan of care dw staff. Consultation Date/Type/Reason Admit Date/Time Oct 25, 2018 at 04:13 Initial Consult Date 10/25/18 Type of Consult NEPHROLOGY Reason for Consultation ESRD Requesting Provider: LUANNE WALTER MD Date/Time of Note DATE: 11/19/18 TIME: 16:52 24 HR Interval Summary Free Text/Dictation - Nad; alert/responsive; tachycardic- cardiology follows; denies any chest pain ; c/o generalized weakness - afebrile - Hyperkalemia- K 6.9 as of ; SP HD yesterday; we will do BMP now- fu results - no new events last night dw staff Constitutional: requiring O2 Detailed Summary Eyes: no complaints ENT: no complaints Respiratory: no complaints Cardiovascular: no complaints Gastrointestinal: no complaints Genitourinary: other (dialysis) Musculoskeletal: other (general weakness) Skin: no complaints Neurologic: no complaints Endocrine: no complaints Lymphatic: no complaints Psychological: nl mood/affect Immunologic: no complaints Exam/Review of Systems Exam Vitals Vital Signs Date Temp Pulse Resp B/P (MAP) Pulse Ox O2 O2 Flow FiO2 Time Delivery Rate 11/19/18 97.8 103 18 103/67 98 Room Air 15:24 (79) 11/18/18 2.0 07:20 Intake and Output 11/18/18 11/18/18 11/19/18 1515:00 23:00 07:00 IntakeIntake Total 410 ml 1280 ml 480 ml OutputOutput Total 200 ml 3400 ml BalanceBalance 210 ml -2120 ml 480 ml Constitutional: alert, well developed Psych: nl mood/affect Head: atraumatic Eyes: nl lids, nl sclera ENMT: nl external ears & nose Neck: non-tender Respiratory: clear to auscultation Cardiovascular: nl pulses, other (s1s2) Gastrointestinal: soft, non-tender Musculoskeletal: muscle weakness Extremities: normal pulses Neurological: nl speech, other (alert/reponsive) Skin: other (no rash noted) Results Result Diagram: 11/18/1852111/18/18521 Medications Medication Current Medications Albumin Human 100 ml @ 100 mls/hr WITH DIALYSIS PRN IV SBP <90 DURING DIALYSIS Last administered on 10/24/18 21:00; Admin Dose 100 MLS/HR; Start 10/24/18 at 18:00 Sodium Chloride 250 ml @ 250 mls/hr Q1H PRN IV tachycardia Last administered on 11/10/18 09:39; Admin Dose 250 MLS/HR; Start 10/25/18 at 01:00 Acetaminophen (Tylenol Tab) 650 mg Q4 PRN PO FEVER Last administered on 11/08/18 18:01; Admin Dose 650 MG; Start 10/25/18 at 01:00 Sevelamer Carbonate (Renvela) 800 mg WITH MEALS PO Last administered on 11/19/18 13:45; Admin Dose 800 MG; Start 10/25/18 at 07:35 Midodrine (Proamatine) 5 mg TID@,,17 PO Last administered on 11/19/18 13:46; Admin Dose 5 MG; Start 10/26/18 at 09:00 Lidocaine (Xylocaine 1% (Mdv) 20 ml) 1 ml WITH DIALYSIS PRN INJ PRIOR TO CANULLATION/HD; Start 10/26/18 at 12:30 Ondansetron HCl (Zofran Inj) 4 mg Q4H PRN IV NAUSEA AND/OR VOMITING Last administered on 11/17/18 09:20; Admin Dose 4 MG; Start 10/26/18 at 15:30 Mupirocin (Bactroban) 1 applic BID TOP Last administered on 11/19/18 08:40; Admin Dose 1 APPLIC; Start 11/02/18 at 13:30 Heparin Sodium (Porcine) (Heparin (1000 Units/ml)) 6,100 unit AFTER DIALYSIS PRN CATHETER DIALYSIS Last administered on 11/18/18 18:00; Admin Dose 6,100 UNIT; Start 11/07/18 at 14:00 Morphine Sulfate (morphine) 3 mg Q4H PRN IV SEVERE PAIN LEVEL 7-10 Last administered on 11/19/18 15:41; Admin Dose 3 MG; Start 11/08/18 at 19:30 Diphenhydramine HCl (Benadryl) 25 mg Q4H PRN IV ALLERGIC REACTION Last administered on 11/19/18 15:40; Admin Dose 25 MG; Start 11/09/18 at 09:00 Metoprolol Tartrate (Lopressor) 5 mg Q4H PRN IV HR>110 Hold SBP<100 Last administered on 11/12/18 11:52; Admin Dose 5 MG; Start 11/09/18 at 14:30 Epoetin Maxwell-epbx (Retacrit (Esrd)) 6,000 unit We@1700 SC Last administered on 11/16/18 17:36; Admin Dose 6,000 UNIT; Start 11/16/18 at 17:00 Heparin Sodium (Porcine) (Heparin (1000 Units/ml)) 500 unit WITH DIALYSIS HE Last administered on 11/18/18 14:41; Admin Dose 500 UNIT; Start 11/18/18 at 14:00 Heparin Sodium (Porcine) (Heparin (1000 Units/ml)) 1,500 unit WITH DIALYSIS HE Last administered on 11/18/18 14:41; Admin Dose 1,500 UNIT; Start 11/18/18 at 14:00 EDILMA CASIANO Nov 19, 2018 16:55
[2018-11-19] MEDS: ONDANSETRON 4 MG INJ IV PRN (17:03)
--- NOTE | 2018-11-19 23:50 | CONS ---
Assessment/Plan Assessment/Plan Hospital Course (Demo Recall) # sepsis, endovascular infections - s/p sepsis due to bacteremia, recurrent. Resolved - s/p persistent and recurrent bacteremia on 10/24, 10/25, and 10/26 due to MSSA; repeat blood cultures on 10/28 & 11/02 were negative; transthoracic echo did not mention vegetation; AMANDA showed no vegetation. - the source of her bacteremia was her HD catheter. No other focus of infection was found: WBC tagged scan on 11/05/2018 showed several non-specific foci of increased activity along R anterior chest wall; however, chest CT on 11/07/2018 showed no fluid collection identified within the chest wall. 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 Per Pt, she had pruritus, "bumps" and green discharge from the catheter site. Its culture on 10/31/2018 grew S. aureus. It was removed on 11/04/2018 - s/p placement of an HD catheter on R groin on 11/07/2018-->removed on 11/10/18 - s/p placement of an HD catheter on L groin on 11/10/2018 - soft tissue CHRISTEL of b/l groin on 11/10/2018 did not show hematoma or active signs of bleeding or abscess, on 11/16/2018 showed prominent lymph node - h/o removal of PermCath on R chest wall on 07/14/2018 - h/o R femoral HD justin catheter placement 07/14/2018, replaced by HD permacath 07/19/2018 - h/o pain/increased sensitivity of R groin after replacement of the Perez with permacath. soft tissue CHRISTEL on 07/20/2018 showed no abnormality at the site of the palpable lesion adjacent to R inguinal region HD catheter - h/o swelling on the scalp and chest wall, possibly due to collateral veins as a result of thrombosis of AVF - h/o removal and placement of a new Perez catheter in 05/2018. The culture of the tip of the removed catheter, blood cultures and swab of the catheter site we re negative. 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 Last used for HD in 04/2018. Was scheduled to get a new graft in [facility] [place] as outpatient # GI//cardiac - h/o biliary colic: according to Pt, she had received authorization for elective cholecystectomy as outpatient - h/o MRCP in 07/2017: negative for cholelithiasis or cholecystitis - amenorrhea since AVF creation in 2016 - I reviewed Pt's cardiac rhythm. 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 Her last cycle was in early 2018 # dermatological/allergy/other - pruritus, possibly related to folliculitis. 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 Pt took renally dosed valACV (07/15/2018-07/17/2018) - adverse reaction to vancomycin (pruritus) - adverse reaction to linezolid (thrombocytopenia). Linezolid was discontinued (06/12/2018-06/17/2018) - ?adverse reaction to cefazolin (severe abd pain/cramping, although pt tolerated a 14 day course of cefazolin in 06/2018) - painful nodule on L thumb; X-ray shows possible subcutaneous mass adjacent to the radial aspect of the first metacarpal. recommendations: - ordered head CT to eval her sensation of soft skull base - continue empiric meropenem (10/20/2018-) - management d/w Pt Consultation Date/Type/Reason Admit Date/Time Oct 25, 2018 at 04:13 Initial Consult Date 10/25/18 Type of Consult ID Requesting Provider: LUANNE WALTER MD Date/Time of Note DATE: 11/19/18 TIME: 23:50 24 HR Interval Summary Constitutional: poor po, requiring O2 Detailed Summary Eyes: visual change ENT: no complaints Respiratory: no complaints Cardiovascular: edema Gastrointestinal: nausea, vomiting Genitourinary: no complaints Musculoskeletal: swelling (b/l groin) Skin: other (feels that the skin of the scalp is edematous) Neurologic: dizziness; No headache Lymphatic: no complaints Psychological: no complaints, nl mood/affect Exam/Review of Systems Exam Vitals Vital Signs Date Temp Pulse Resp B/P (MAP) Pulse Ox O2 O2 Flow FiO2 Time Delivery Rate 11/19/18 Nasal 2.0 20:00 Cannula 11/19/18 98.1 79 17 110/58 99 20:00 (75) Intake and Output 11/18/18 11/18/18 11/19/18 1515:00 23:00 07:00 IntakeIntake Total 410 ml 1280 ml 480 ml OutputOutput Total 200 ml 3400 ml BalanceBalance 210 ml -2120 ml 480 ml Constitutional: alert, oriented Psych: no complaints, nl mood/affect Head: normocephalic, atraumatic, other (no lesions of the scalp) Eyes: nl conjunctiva, nl lids, nl sclera ENMT: nl external ears & nose, nl nasal mucosa & septum, mucosa pink and moist Neck: supple, non-tender Respiratory: clear to auscultation, normal air movement Cardiovascular: regular rate and rhythm, nl pulses Gastrointestinal: soft; No distended, No tender Musculoskeletal: nl extremities to inspection Extremities: normal pulses Neurological: DISPUTE RESOLUTION SPECIALIST II-XII intact, nl mental status, nl speech Skin: nl turgor; No rash or lesions Results Result Diagram: 11/19/18 1711 11/19/18 1711 Results 24hrs Laboratory Tests Test 11/19/18 17:11 White Blood Count 7.5 Red Blood Count 3.91 L Hemoglobin 12.5 Hematocrit 39.5 Mean Corpuscular Volume 101.0 Mean Corpuscular Hemoglobin 32.0 Mean Corpuscular Hemoglobin Concent 31.6 L Red Cell Distribution Width 17.8 H Platelet Count 251 Mean Platelet Volume 11.0 H Immature Granulocytes % 0.100 Neutrophils % 51.2 Lymphocytes % 26.0 Monocytes % 9.7 Eosinophils % 11.8 H Basophils % 1.2 Nucleated Red Blood Cells % 0.0 Immature Granulocytes # 0.010 Neutrophils # 3.9 Lymphocytes # 2.0 Monocytes # 0.7 Eosinophils # 0.9 H Basophils # 0.1 Nucleated Red Blood Cells # 0.0 Sodium Level 142 Potassium Level 5.8 H Chloride Level 98 Carbon Dioxide Level 24 Anion Gap 20 H Blood Urea Nitrogen 61 H Creatinine 8.72 H Est Glomerular Filtrat Rate mL/min 5 L Glucose Level 60 #L Calcium Level 8.6 Medications Medication Current Medications Albumin Human 100 ml @ 100 mls/hr WITH DIALYSIS PRN IV SBP <90 DURING DIALYSIS Last administered on 10/24/18 21:00; Admin Dose 100 MLS/HR; Start 10/24/18 at 18:00 Sodium Chloride 250 ml @ 250 mls/hr Q1H PRN IV tachycardia Last administered on 11/10/18 09:39; Admin Dose 250 MLS/HR; Start 10/25/18 at 01:00 Acetaminophen (Tylenol Tab) 650 mg Q4 PRN PO FEVER Last administered on 11/08/18 18:01; Admin Dose 650 MG; Start 10/25/18 at 01:00 Sevelamer Carbonate (Renvela) 800 mg WITH MEALS PO Last administered on 11/19/18 13:45; Admin Dose 800 MG; Start 10/25/18 at 07:35 Midodrine (Proamatine) 5 mg TID@09,13,17 PO Last administered on 11/19/18 17:06; Admin Dose 5 MG; Start 10/26/18 at 09:00 Lidocaine (Xylocaine 1% (Mdv) 20 ml) 1 ml WITH DIALYSIS PRN INJ PRIOR TO CANULLATION/HD; Start 10/26/18 at 12:30 Ondansetron HCl (Zofran Inj) 4 mg Q4H PRN IV NAUSEA AND/OR VOMITING Last administered on 11/19/18 17:03; Admin Dose 4 MG; Start 10/26/18 at 15:30 Mupirocin (Bactroban) 1 applic BID TOP Last administered on 11/19/18 21:45; A dmin Dose 1 APPLIC; Start 11/02/18 at 13:30 Heparin Sodium (Porcine) (Heparin (1000 Units/ml)) 6,100 unit AFTER DIALYSIS PRN CATHETER DIALYSIS Last administered on 11/18/18 18:00; Admin Dose 6,100 U NIT; Start 11/07/18 at 14:00 Morphine Sulfate (morphine) 3 mg Q4H PRN IV SEVERE PAIN LEVEL 7-10 Last administered on 11/19/18 23:39; Admin Dose 3 MG; Start 11/08/18 at 19:30 Metoprolol Tartrate (Lopressor) 5 mg Q4H PRN IV HR>110 Hold SBP<100 Last administered on 11/12/18 11:52; Admin Dose 5 MG; Start 11/09/18 at 14:30 Epoetin Maxwell-epbx (Retacrit (Esrd)) 6,000 unit We@1700 SC Last administered on 11/16/18 17:36; Admin Dose 6,000 UNIT; Start 11/16/18 at 17:00 Heparin Sodium (Porcine) (Heparin (1000 Units/ml)) 500 unit WITH DIALYSIS HE Last administered on 11/18/18 14:41; Admin Dose 500 UNIT; Start 11/18/18 at 14:00 Heparin Sodium (Porcine) (Heparin (1000 Units/ml)) 1,500 unit WITH DIALYSIS HE Last administered on 11/18/18 14:41; Admin Dose 1,500 UNIT; Start 11/18/18 at 14:00 Diphenhydramine HCl (Benadryl) 50 mg Q6H PRN IV ITCHING Last administered on 11/19/18 22:57; Admin Dose 50 MG; Start 11/19/18 at 22:00 Hydrocortisone (Hydrocortisone 1% Cr) 1 applic BID TOP ; Start 11/20/18 at 09:00 GINGER HARDIN M.D. Nov 19, 2018 23:50
[2018-11-20] VITALS (22 sets, daily range): BP systolic 87–119; BP diastolic 5–90; PULSE 78–119; RESP 16–18
[2018-11-20] MEDS: morphine 4 MG/ML VIAL IV PRN ×3 (04:56→21:20)
[2018-11-20] MEDS: DIPHENHYDRAMINE 50 MG INJ IV PRN ×4 (04:56→22:57)
[2018-11-20] MEDS ORDERED: INSULIN REGULAR, HUMAN 100 UNIT/1 ML 3ML VIAL IVP STA (07:22)
[2018-11-20] MEDS ORDERED: DEXTROSE 50% 50 ML SYRINGE IV PRN (07:30)
[2018-11-20] MEDS ORDERED: ALBUTEROL 0.083% (NEB) 2.5 MG/3 ML AMP HHN STA (07:37)
[2018-11-20] MEDS ORDERED: CALCIUM GLUCONATE 10% 1 GM in DEXTROSE 5% 100 ML IVPB ONE (08:30)
[2018-11-20] MEDS: SEVELAMER CARBONATE 800 MG TABLET PO SCH ×3 (09:15→17:35)
[2018-11-20] MEDS: MIDODRINE 5 MG TAB PO SCH ×3 (09:15→17:35)
[2018-11-20] MEDS: HYDROCORTISONE 1% 28 GM CR TOP SCH ×2 (09:16→21:20)
[2018-11-20] MEDS: HEPARIN 1000 UNITS/ML 10 ML INJ HE SCH ×2 (09:22→09:23)
[2018-11-20] MEDS ORDERED: ALTEPLASE (CATHFLO) 2 MG INJ CATHETER ONE (10:30)
--- NOTE | 2018-11-20 10:51 | CONS ---
Assessment/Plan Assessment/Plan Assessment/Plan (Daily) - Hyperkalemia- K 6.9 today - stat HD ordered by Dr Adore Beltran; having HD now - we will do BMP post HD- fu results - c/o bone pain; patient was seen by Endo for her abnormal calcium level- Endo consult /Dr De La Fuente notified 1. Septic shock s/p Levophed - now resolved 2. ESRD on HD MWF schedule , left femoral permacath for HD access 3. Bacteremia with Blood cx growing staph aureus -s/p removal of left permacath on 11/04/18- pt remained line free for 3 days then insertion of Right groin permacath on 11/07/18 which is removed due to hematoma around catheter site then pt subsequently had a new permacath placemen ton left groin on 11/10/18 4. H/o Leukemia currently on chemotherapy, last chem on 10/21/18 5. H/o Primary hyperparathyroidism, status post complete parathyroidectomy and partial left thyroid lobectomy 2 years ago. 6. H/o Anemia of ESRD 7, Difficult vascular Access 8. anemia of ESRD Plan: s/p Removal of Right groin permacath,due to pericatheter hematoma, now s/p left groin permacath placement- Hd today with 1 K bath due to hyperkalemia- pt will be on MWF schedule staph aureus bacteremia - IV abx oxacillin 2 gram IV Q 6 hr - ID following- to finish abx on 11/18/18 Continue other home medications, Midodrine 5 mg PO TID for BP support - Epogen 6000 units Q week Patient seen in collaboration with Dr Adore Beltran. Plan of care dw staff Consultation Date/Type/Reason Admit Date/Time Oct 25, 2018 at 04:13 Initial Consult Date 10/25/18 Type of Consult NEPHROLOGY Reason for Consultation ESRD Requesting Provider: LUANNE WALTER MD Date/Time of Note DATE: 11/20/18 TIME: 10:45 24 HR Interval Summary Free Text/Dictation - Nad; alert/responsive; tachycardic- cardiology follows; denies any chest pain - c/o generalized weakness - c/o bone pain; patient was seen by Endo for her abnormal calcium level- Endo consult /Dr De La Fuente notified - afebrile - Hyperkalemia- K 6.9 - stat HD ordered by Dr Adore Beltran ; having HD now; will do BMP post HD - no new events last night dw staff Constitutional: requiring O2 Detailed Summary Eyes: no complaints ENT: no complaints Respiratory: no complaints Cardiovascular: no complaints Gastrointestinal: no complaints Genitourinary: no complaints Musculoskeletal: other (general weakness) Skin: no complaints Neurologic: no complaints Endocrine: no complaints Lymphatic: no complaints Psychological: nl mood/affect Immunologic: no complaints Exam/Review of Systems Exam Vitals Vital Signs Date Temp Pulse Resp B/P (MAP) Pulse Ox O2 O2 Flow FiO2 Time Delivery Rate 11/20/18 97.9 79 16 107/58 98 Room Air 07:22 (74) 11/19/18 2.0 20:00 Intake and Output 11/19/18 11/19/18 11/20/18 1515:00 23:00 07:00 IntakeIntake Total 320 ml BalanceBalance 320 ml Constitutional: alert, well developed Psych: nl mood/affect Head: atraumatic Eyes: nl lids, nl sclera ENMT: nl external ears & nose Neck: non-tender Respiratory: clear to auscultation Cardiovascular: nl pulses, other (s1s2) Gastrointestinal: soft, non-tender Musculoskeletal: muscle weakness Extremities: normal pulses Neurological: nl speech, other (alert/reponsive) Skin: other (no rash noted) Results Result Diagram: 11/20/18 0609 11/20/18 0609 Results 24hrs Laboratory Tests Test 11/19/18 17:11 11/20/18 06:09 11/20/18 09:29 White Blood Count 7.5 7.7 Red Blood Count 3.91 L 3.62 L Hemoglobin 12.5 11.7 L Hematocrit 39.5 36.7 L Mean Corpuscular Volume 101.0 101.4 H Mean Corpuscular Hemoglobin 32.0 32.3 Mean Corpuscular Hemoglobin Concent 31.6 L 31.9 L Red Cell Distribution Width 17.8 H 17.6 H Platelet Count 251 241 Mean Platelet Volume 11.0 H 11.2 H Immature Granulocytes % 0.100 0.300 Neutrophils % 51.2 43.6 Lymphocytes % 26.0 28.1 Monocytes % 9.7 10.5 Eosinophils % 11.8 H 16.3 H Basophils % 1.2 1.2 Nucleated Red Blood Cells % 0.0 0.0 Immature Granulocytes # 0.010 0.020 Neutrophils # 3.9 3.4 Lymphocytes # 2.0 2.2 Monocytes # 0.7 0.8 Eosinophils # 0.9 H 1.3 H Basophils # 0.1 0.1 Nucleated Red Blood Cells # 0.0 0.0 Sodium Level 142 137 Potassium Level 5.8 H 6.9 *H Chloride Level 98 95 L Carbon Dioxide Level 24 24 Anion Gap 20 H 18 H Blood Urea Nitrogen 61 H 86 H Creatinine 8.72 H 9.69 H Est Glomerular Filtrat Rate mL/min 5 L 5 L Glucose Level 60 #L 69 L Calcium Level 8.6 8.4 Bedside Glucose 69 L Medications Medication Current Medications Albumin Human 100 ml @ 100 mls/hr WITH DIALYSIS PRN IV SBP <90 DURING DIALYSIS Last administered on 10/24/18 21:00; Admin Dose 100 MLS/HR; Start 10/24/18 at 18:00 Sodium Chloride 250 ml @ 250 mls/hr Q1H PRN IV tachycardia Last administered on 11/10/18 09:39; Admin Dose 250 MLS/HR; Start 10/25/18 at 01:00 Acetaminophen (Tylenol Tab) 650 mg Q4 PRN PO FEVER Last administered on 11/08/18 18:01; Admin Dose 650 MG; Start 10/25/18 at 01:00 Sevelamer Carbonate (Renvela) 800 mg WITH MEALS PO Last administered on 11/20/18 09:15; Admin Dose 800 MG; Start 10/25/18 at 07:35 Midodrine (Proamatine) 5 mg TID@09,13,17 PO Last administered on 11/20/18 09:15; Admin Dose 5 MG; Start 10/26/18 at 09:00 Lidocaine (Xylocaine 1% (Mdv) 20 ml) 1 ml WITH DIALYSIS PRN INJ PRIOR TO CANULLATION/HD; Start 10/26/18 at 12:30 Ondansetron HCl (Zofran Inj) 4 mg Q4H PRN IV NAUSEA AND/OR VOMITING Last administered on 11/19/18 17:03; Admin Dose 4 MG; Start 10/26/18 at 15:30 Mupirocin (Bactroban) 1 applic BID TOP Last administered on 11/19/18 21:45; Admin Dose 1 APPLIC; Start 11/02/18 at 13:30 Heparin Sodium (Porcine) (Heparin (1000 Units/ml)) 6,100 unit AFTER DIALYSIS PRN CATHETER DIALYSIS Last administered on 11/18/18 18:00; Admin Dose 6,100 UNIT; Start 11/07/18 at 14:00 Morphine Sulfate (morphine) 3 mg Q4H PRN IV SEVERE PAIN LEVEL 7-10 Last administered on 11/20/18 04:56; Admin Dose 3 MG; Start 11/08/18 at 19:30 Metoprolol Tartrate (Lopressor) 5 mg Q4H PRN IV HR>110 Hold SBP<100 Last administered on 11/12/18 11:52; Admin Dose 5 MG; Start 11/09/18 at 14:30 Epoetin Maxwell-epbx (Retacrit (Esrd)) 6,000 unit We@1700 SC Last administered on 11/16/18 17:36; Admin Dose 6,000 UNIT; Start 11/16/18 at 17:00 Heparin Sodium (Porcine) (Heparin (1000 Units/ml)) 500 unit WITH DIALYSIS HE Last administered on 11/20/18 09:22; Admin Dose 500 UNIT; Start 11/18/18 at 14:00 Heparin Sodium (Porcine) (Heparin (1000 Units/ml)) 1,500 unit WITH DIALYSIS HE Last administered on 11/20/18 09:23; Admin Dose 1,500 UNIT; Start 11/18/18 at 14:00 Diphenhydramine HCl (Benadryl) 50 mg Q6H PRN IV ITCHING Last administered on 11/20/18 04:56; Admin Dose 50 MG; Start 11/19/18 at 22:00 Hydrocortisone (Hydrocortisone 1% Cr) 1 applic BID TOP Last administered on 11/20/18 09:16; Admin Dose 1 APPLIC; Start 11/20/18 at 09:00 EDILMA CASIANO Nov 20, 2018 10:51
[2018-11-20] MEDS: MUPIROCIN 2% 22 GM OINT TOP SCH ×2 (11:00→21:13)
--- NOTE | 2018-11-20 11:50 | PN ---
Date/Time of Note Date/Time of Note DATE: 11/20/18 TIME: 11:49 Assessment/Plan VTE Prophylaxis Risk score (from [facility] [place])>0 risk: 8 SCD applied (from [facility] [place]): No SCD contraindicated: other Pharmacological prophylaxis: LMWH Lines/Catheters IV [facility]ter [facility]from [facility] PERMACATH Urinary Cath still in place: No Assessment/Plan Hospital Course -Hyperkalemia, status post Kayexalate yesterday, continue hemodialysis per nephrology. -Sepsis with DIMITRI bacteremia with fevers, leukocytosis, and hypotension. Continue on oxacillin 2 g every 6 hours until 11/[address] Arora is following in ID consultation. AMANDA is negative for vegetation. Dr. Barrera is following in cardiology consultation. -Hemodialysis dependent end-stage renal disease, continue dialysis per nephrology. Dr. Beltran is following in nephrology consultation. -Leukemia, patient is undergoing chemotherapy last chemo was on Wednesday10/11/18. -Anemia multifactorial chronic disease and recent chemo, status post blood transfusion, continue to monitor H&H, continue Epogen. -Mineral bone disease with renal osteodystrophy. No acute fractures, traumatic subluxations, osteomyelitis or diskitis per MRI of the lumbar spine. -Primary hyperparathyroidism, status post complete parathyroidectomy and partial left thyroid lobectomy 2 years ago. -Left femoral hemodialysis catheter present on admission. Result Diagram: 11/20/18 0609 11/20/18 0609 Results 24hrs Laboratory Tests Test 11/19/18 17:11 11/20/18 06:09 11/20/18 09:29 White Blood Count 7.5 7.7 Red Blood Count 3.91 L 3.62 L Hemoglobin 12.5 11.7 L Hematocrit 39.5 36.7 L Mean Corpuscular Volume 101.0 101.4 H Mean Corpuscular Hemoglobin 32.0 32.3 Mean Corpuscular Hemoglobin Concent 31.6 L 31.9 L Red Cell Distribution Width 17.8 H 17.6 H Platelet Count 251 241 Mean Platelet Volume 11.0 H 11.2 H Immature Granulocytes % 0.100 0.300 Neutrophils % 51.2 43.6 Lymphocytes % 26.0 28.1 Monocytes % 9.7 10.5 Eosinophils % 11.8 H 16.3 H Basophils % 1.2 1.2 Nucleated Red Blood Cells % 0.0 0.0 Immature Granulocytes # 0.010 0.020 Neutrophils # 3.9 3.4 Lymphocytes # 2.0 2.2 Monocytes # 0.7 0.8 Eosinophils # 0.9 H 1.3 H Basophils # 0.1 0.1 Nucleated Red Blood Cells # 0.0 0.0 Sodium Level 142 137 Potassium Level 5.8 H 6.9 *H Chloride Level 98 95 L Carbon Dioxide Level 24 24 Anion Gap 20 H 18 H Blood Urea Nitrogen 61 H 86 H Creatinine 8.72 H 9.69 H Est Glomerular Filtrat Rate mL/min 5 L 5 L Glucose Level 60 #L 69 L Calcium Level 8.6 8.4 Bedside Glucose 69 L Subjective 24 Hr Interval Summary Free Text/Dictation Patient still complain of nausea/vomiting and lightheadedness Exam/Review of Systems Exam Vitals Vital Signs Date Temp Pulse Resp B/P (MAP) Pulse Ox O2 O2 Flow FiO2 Time Delivery Rate 11/20/18 98.0 101 16 100/76 Room Air 11:30 (84) 11/20/18 98 07:22 11/19/18 2.0 20:00 Intake and Output 11/19/18 11/19/18 11/20/18 1515:00 23:00 07:00 IntakeIntake Total 320 ml BalanceBalance 320 ml Constitutional: well developed Head: normocephalic, atraumatic Neck: supple Respiratory: diminished breath sounds Cardiovascular: regular rate and rhythm Gastrointestinal: soft, non-tender Extremities: normal pulses Results Results 24hrs Laboratory Tests Test 11/19/18 17:11 11/20/18 06:09 11/20/18 09:29 White Blood Count 7.5 7.7 Red Blood Count 3.91 L 3.62 L Hemoglobin 12.5 11.7 L Hematocrit 39.5 36.7 L Mean Corpuscular Volume 101.0 101.4 H Mean Corpuscular Hemoglobin 32.0 32.3 Mean Corpuscular Hemoglobin Concent 31.6 L 31.9 L Red Cell Distribution Width 17.8 H 17.6 H Platelet Count 251 241 Mean Platelet Volume 11.0 H 11.2 H Immature Granulocytes % 0.100 0.300 Neutrophils % 51.2 43.6 Lymphocytes % 26.0 28.1 Monocytes % 9.7 10.5 Eosinophils % 11.8 H 16.3 H Basophils % 1.2 1.2 Nucleated Red Blood Cells % 0.0 0.0 Immature Granulocytes # 0.010 0.020 Neutrophils # 3.9 3.4 Lymphocytes # 2.0 2.2 Monocytes # 0.7 0.8 Eosinophils # 0.9 H 1.3 H Basophils # 0.1 0.1 Nucleated Red Blood Cells # 0.0 0.0 Sodium Level 142 137 Potassium Level 5.8 H 6.9 *H Chloride Level 98 95 L Carbon Dioxide Level 24 24 Anion Gap 20 H 18 H Blood Urea Nitrogen 61 H 86 H Creatinine 8.72 H 9.69 H Est Glomerular Filtrat Rate mL/min 5 L 5 L Glucose Level 60 #L 69 L Calcium Level 8.6 8.4 Bedside Glucose 69 L Medications Medication Current Medications Albumin Human 100 ml @ 100 mls/hr WITH DIALYSIS PRN IV SBP <90 DURING DIALYSIS Last administered on 10/24/18 21:00; Admin Dose 100 MLS/HR; Start 10/24/18 at 18:00 Sodium Chloride 250 ml @ 250 mls/hr Q1H PRN IV tachycardia Last administered on 11/10/18at 09:39; Admin Dose 250 MLS/HR; Start 10/25/18 at 01:00 Acetaminophen (Tylenol Tab) 650 mg Q4 PRN PO FEVER Last administered on 9at 18:01; Admin Dose 650 MG; Start 10/25/18 at 01:00 Sevelamer Carbonate (Renvela) 800 mg WITH MEALS PO Last administered on 11/20/18 09:15; Admin Dose 800 MG; Start 10/25/18 at 07:35 Midodrine (Proamatine) 5 mg TID@09,13,17 PO Last administered on 11/20/18 09:15; Admin Dose 5 MG; Start 10/26/18 at 09:00 Lidocaine (Xylocaine 1% (Mdv) 20 ml) 1 ml WITH DIALYSIS PRN INJ PRIOR TO CANULLATION/HD; Start 10/26/18 at 12:30 Ondansetron HCl (Zofran Inj) 4 mg Q4H PRN IV NAUSEA AND/OR VOMITING Last admin istered on 11/19/18at 17:03; Admin Dose 4 MG; Start 10/26/18 at 15:30 Mupirocin (Bactroban) 1 applic BID TOP Last administered on 11/20/18 11:00; Admin Dose 1 APPLIC; Start 11/02/18 at 13:30 Heparin Sodium (Porcine) (Heparin (1000 Units/ml)) 6,100 unit AFTER DIALYSIS PRN CATHETER DIALYSIS Last administered on 11/18/18 18:00; Admin Dose 6,100 UNIT; Start 11/07/18 at 14:00 Morphine Sulfate (morphine) 3 mg Q4H PRN IV SEVERE PAIN LEVEL 7-10 Last administered on 11/20/18 04:56; Admin Dose 3 MG; Start 11/08/18 at 19:30 Metoprolol Tartrate (Lopressor) 5 mg Q4H PRN IV HR>110 Hold SBP<100 Last adm inistered on 11/12/18 11:52; Admin Dose 5 MG; Start 11/09/18 at 14:30 Epoetin Maxwell-epbx (Retacrit (Esrd)) 6,000 unit We@1700 SC Last administered on 11/16/18 17:36; Admin Dose 6,000 UNIT; Start 11/16/18 at 17:00 Heparin Sodium (Porcine) (Heparin (1000 Units/ml)) 500 unit WITH DIALYSIS HE Last administered on 11/20/18 09:22; Admin Dose 500 UNIT; Start 11/18/18 at 14:00 Heparin Sodium (Porcine) (Heparin (1000 Units/ml)) 1,500 unit WITH DIALYSIS HE Last administered on 11/20/18 09:23; Admin Dose 1,500 UNIT; Start 11/18/18 at 14:00 Diphenhydramine HCl (Benadryl) 50 mg Q6H PRN IV ITCHING Last administered on 11/20/18 11:00; Admin Dose 50 MG; Start 11/19/18 at 22:00 Hydrocortisone (Hydrocortisone 1% Cr) 1 applic BID TOP Last administered on 11/20/18 09:16; Admin Dose 1 APPLIC; Start 11/20/18 at 09:00 ANGELY PANG Nov 20, 2018 11:50
--- NOTE | 2018-11-20 12:56 | CONS ---
Assessment/Plan Assessment/Plan Hospital Course (Demo Recall) IMPRESSION: 1. Bacteremia, assess for endocarditis, intracardiac source of infection. s/p AMANDA 11/04 with no definite signs intracardiac infection 2. Abnormal electrocardiogram with lateral T-wave inversion. 3. Hypertension, mainly diastolic labile, currently improved. 4. Leukemia. 5. Anemia. 6. Initial hypotension. Initially with midodrine- somewhat labile but not requiring midodrine 7. Tachycardia-now improved on midodrine BP support 8. ESRD on HD s/p new R femoral HD catheter Recc: -Tele -continue abx's and f/u cx data -HD for volume removal as tolerated, ongoing now -IVP PRN BB -Contineu midodrine BP support as necessary -Rx episodes of N/V Consultation Date/Type/Reason Admit Date/Time Oct 25, 2018 at 04:13 Initial Consult Date 10/25/18 Type of Consult Cardiology Reason for Consultation tachycardia Requesting Provider: LUANNE WALTER MD Date/Time of Note DATE: 11/20/18 TIME: 12:55 Exam/Review of Systems Vital Signs Vitals Vital Signs Date Temp Pulse Resp B/P (MAP) Pulse Ox O2 O2 Flow FiO2 Time Delivery Rate 11/20/18 98.0 101 16 100/76 Room Air 11:30 (84) 11/20/18 98 07:22 11/19/18 2.0 20:00 Intake and Output 11/19/18 11/19/18 11/20/18 1515:00 23:00 07:00 IntakeIntake Total 320 ml BalanceBalance 320 ml Exam Exam Review of Systems: CONSTITUTIONAL: No fevers, chills. PULMONARY: No sob CARDIOVASCULAR: No chest pain/palpitations GASTROINTESTINAL: No nausea/vomiting. GENITOURINARY: No hematuria/dysuria. MUSCULOSKELETAL: No myagias/arthalgias. PSYCHIATRIC: The patient denies depression. NEUROLOGIC: No weakness Constitutional: alert Psych: no complaints Head: normocephalic ENMT: mucosa pink and moist Neck: supple, jvd (9 cm water) Respiratory: diminished breath sounds (at bases/B) Cardiovascular: regular rate and rhythm Gastrointestinal: soft, non-tender Musculoskeletal: muscle tone (normal) Extremities: edema (none) Neurological: other (no focal deficits) Labs Result Diagram: 11/20/1860811/20/18 0609 Results 24hrs Laboratory Tests Test 11/19/18 17:11 11/20/18 06:09 11/20/18 09:29 White Blood Count 7.5 7.7 Red Blood Count 3.91 L 3.62 L Hemoglobin 12.5 11.7 L Hematocrit 39.5 36.7 L Mean Corpuscular Volume 101.0 101.4 H Mean Corpuscular Hemoglobin 32.0 32.3 Mean Corpuscular Hemoglobin Concent 31.6 L 31.9 L Red Cell Distribution Width 17.8 H 17.6 H Platelet Count 251 241 Mean Platelet Volume 11.0 H 11.2 H Immature Granulocytes % 0.100 0.300 Neutrophils % 51.2 43.6 Lymphocytes % 26.0 28.1 Monocytes % 9.7 10.5 Eosinophils % 11.8 H 16.3 H Basophils % 1.2 1.2 Nucleated Red Blood Cells % 0.0 0.0 Immature Granulocytes # 0.010 0.020 Neutrophils # 3.9 3.4 Lymphocytes # 2.0 2.2 Monocytes # 0.7 0.8 Eosinophils # 0.9 H 1.3 H Basophils # 0.1 0.1 Nucleated Red Blood Cells # 0.0 0.0 Sodium Level 142 137 Potassium Level 5.8 H 6.9 *H Chloride Level 98 95 L Carbon Dioxide Level 24 24 Anion Gap 20 H 18 H Blood Urea Nitrogen 61 H 86 H Creatinine 8.72 H 9.69 H Est Glomerular Filtrat Rate mL/min 5 L 5 L Glucose Level 60 #L 69 L Calcium Level 8.6 8.4 Bedside Glucose 69 L Medications Medications Current Medications Albumin Human 100 ml @ 100 mls/hr WITH DIALYSIS PRN IV SBP <90 DURING DIALYSIS Last administered on 10/24/18at 21:00; Admin Dose 100 MLS/HR; Start 10/24/18 at 18:00 Sodium Chloride 250 ml @ 250 mls/hr Q1H PRN IV tachycardia Last administered on 11/10/18at 09:39; Admin Dose 250 MLS/HR; Start 10/25/18 at 01:00 Acetaminophen (Tylenol Tab) 650 mg Q4 PRN PO FEVER Last administered on 11/08/18at 18:01; Admin Dose 650 MG; Start 10/25/18 at 01:00 Sevelamer Carbonate (Renvela) 800 mg WITH MEALS PO Last administered on 11/20/18 09:15; Admin Dose 800 MG; Start 10/25/18 at 07:35 Midodrine (Proamatine) 5 mg TID@09,13,17 PO Last administered on 11/20/18 09:15; Admin Dose 5 MG; Start 10/26/18 at 09:00 Lidocaine (Xylocaine 1% (Mdv) 20 ml) 1 ml WITH DIALYSIS PRN INJ PRIOR TO CANULLATION/HD; Start 10/26/18 at 12:30 Ondansetron HCl (Zofran Inj) 4 mg Q4H PRN IV NAUSEA AND/OR VOMITING Last administered on 11/19/18 17:03; Admin Dose 4 MG; Start 10/26/18 at 15:30 Mupirocin (Bactroban) 1 applic BID TOP Last administered on 11/20/18 11:00; Admin Dose 1 APPLIC; Start 11/02/18 at 13:30 Heparin Sodium (Porcine) (Heparin (1000 Units/ml)) 6,100 unit AFTER DIALYSIS P RN CATHETER DIALYSIS Last administered on 11/18/18 18:00; Admin Dose 6,100 UNIT; Start 11/07/18 at 14:00 Morphine Sulfate (morphine) 3 mg Q4H PRN IV SEVERE PAIN LEVEL 7-10 Last administered on 11/20/18 04:56; Admin Dose 3 MG; Start 11/08/18 at 19:30 Metoprolol Tartrate (Lopressor) 5 mg Q4H PRN IV HR>110 Hold SBP<100 Last administered on 11/12/18 11:52; Admin Dose 5 MG; Start 11/09/18 at 14:30 Epoetin Maxwell-epbx (Retacrit (Esrd)) 6,000 unit We@1700 SC Last administered on 11/16/18 17:36; Admin Dose 6,000 UNIT; Start 11/16/18 at 17:00 Heparin Sodium (Porcine) (Heparin (1000 Units/ml)) 500 unit WITH DIALYSIS HE Last administered on 11/20/18 09:22; Admin Dose 500 UNIT; Start 11/18/18 at 14:00 Heparin Sodium (Porcine) (Heparin (1000 Units/ml)) 1,500 unit WITH DIALYSIS HE Last administered on 11/20/18 09:23; Admin Dose 1,500 UNIT; Start 11/18/18 at 14:00 Diphenhydramine HCl (Benadryl) 50 mg Q6H PRN IV ITCHING Last administered on 11/20/18at 11:00; Admin Dose 50 MG; Start 11/19/18 at 22:00 Hydrocortisone (Hydrocortisone 1% Cr) 1 applic BID TOP Last administered on 11/20/18at 09:16; Admin Dose 1 APPLIC; Start 11/20/18 at 09:00 HENRIQUE GARCIA Nov 20, 2018 12:56
--- NOTE | 2018-11-20 22:09 | CONS ---
Assessment/Plan Assessment/Plan Hospital Course (Demo Recall) # sepsis, endovascular infections - s/p sepsis due to bacteremia, recurrent. Resolved - s/p persistent and recurrent bacteremia on 10/24, 10/25, and 10/26 due to MSSA; repeat blood cultures on 10/28 & 11/02 were negative; transthoracic echo did not mention vegetation; AMANDA showed no vegetation. - the source of her bacteremia was her HD catheter. No other focus of infection was found: WBC tagged scan on 11/05/2018 showed several non-specific foci of increased activity along R anterior chest wall; however, chest CT on 11/07/2018 showed no fluid collection identified within the chest wall. 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 Per Pt, she had pruritus, "bumps" and green discharge from the catheter site. Its culture on 10/31/2018 grew S. aureus. It was removed on 11/04/2018 - s/p placement of an HD catheter on R groin on 11/07/2018-->removed on 11/10/18 - s/p placement of an HD catheter on L groin on 11/10/2018 - soft tissue CHRISTEL of b/l groin on 11/10/2018 did not show hematoma or active signs of bleeding or abscess, on 11/16/2018 showed prominent lymph node - h/o removal of PermCath on R chest wall on 07/14/2018 - h/o R femoral HD justin catheter placement 07/14/2018, replaced by HD permacath 07/19/2018 - h/o pain/increased sensitivity of R groin after replacement of the Perez with permacath. soft tissue CHRISTEL on 07/20/2018 showed no abnormality at the site of the palpable lesion adjacent to R inguinal region HD catheter - h/o swelling on the scalp and chest wall, possibly due to collateral veins as a result of thrombosis of AVF - h/o removal and placement of a new Perez catheter in 05/2018. The culture of the tip of the removed catheter, blood cultures and swab of the catheter site we re negative. 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 Last used for HD in 04/2018. Was scheduled to get a new graft in [facility] as outpatient # GI//cardiac - h/o biliary colic: according to Pt, she had received authorization for elective cholecystectomy as outpatient - h/o MRCP in 07/2017: negative for cholelithiasis or cholecystitis - amenorrhea since AVF creation in 2016 - I reviewed Pt's cardiac rhythm. 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 Her last cycle was in early 2018 # dermatological/musculoskeletal - pruritus, possibly related to folliculitis. 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 Pt took renally dosed valACV (07/15/2018-07/17/2018) - a sensation of soft, swollen skull: head CT on 11/20/2018 showed no acute intracranial hemorrhage, transcortical infarction or mass effect; it showed diffuse thickening and heterogeneous sclerotic skull compatible with renal osteodystrophy # allergy/other - adverse reaction to vancomycin (pruritus) - adverse reaction to linezolid (thrombocytopenia). Linezolid was discontinued (06/12/2018-06/17/2018) - ?adverse reaction to cefazolin (severe abd pain/cramping, although pt tolerated a 14 day course of cefazolin in 06/2018) - painful nodule on L thumb; X-ray shows possible subcutaneous mass adjacent to the radial aspect of the first metacarpal. recommendations: - continue to monitor her off systemic antibiotics - Pt completed renally dosed oxacillin 2gm IV q6 hours (10/30/2018-) for 2 weeks after removal of her HD catheter, i.e. 11/04/18-11/18/18 Consultation Date/Type/Reason Admit Date/Time Oct 25, 2018 at 04:13 Initial Consult Date 10/25/18 Type of Consult ID Requesting Provider: LUANNE WALTER MD Date/Time of Note DATE: 11/20/18 TIME: 22:04 24 HR Interval Summary Constitutional: improved Detailed Summary Eyes: visual change ("darkness"); No pain ENT: no complaints Respiratory: other (chest tight ness) Cardiovascular: no complaints Gastrointestinal: decreased appetite, nausea, vomiting Genitourinary: other (anuric) Skin: other (feels that her skull is too soft) Neurologic: no complaints Psychological: no complaints Exam/Review of Systems Exam Vitals Vital Signs Date Temp Pulse Resp B/P (MAP) Pulse Ox O2 O2 Flow FiO2 Time Delivery Rate 11/20/18 18 101/56 96 21:00 (71) 11/20/18 97.9 85 20:00 11/20/18 Room Air 15:40 11/19/18 2.0 20:00 Intake and Output 11/19/18 11/19/18 11/20/18 1515:00 23:00 07:00 IntakeIntake Total 320 ml BalanceBalance 320 ml Constitutional: alert, frail Psych: no complaints, nl mood/affect Head: normocephalic, other (alopecia, bitemporal wasting, skull does not feel overally soft) Eyes: nl conjunctiva, nl lids, nl sclera; No icteric ENMT: nl external ears & nose, nl nasal mucosa & septum, mucosa pink and moist Neck: supple Respiratory: clear to auscultation, normal air movement Cardiovascular: regular rate and rhythm, nl pulses; No edema Gastrointestinal: soft, non-tender Genitourinary - Female: other (b/l groin is less swollen and is no longer indurated) Musculoskeletal: nl extremities to inspection Extremities: No edema Neurological: DEVELOPMENT ANALYST II-XII intact, nl mental status, nl speech, nl strength Skin: rash or lesions (numerous folliculitis on the face, neck and extremities) Results Result Diagram: 11/20/18 0609 11/20/18 1312 Results 24hrs Laboratory Tests Test 11/20/18 06:09 11/20/18 09:29 11/20/18 13:11 11/20/18 13:12 White Blood Count 7.7 Red Blood Count 3.62 L Hemoglobin 11.7 L Hematocrit 36.7 L Mean Corpuscular 101.4 H Volume Mean Corpuscular 32.3 Hemoglobin Mean Corpuscular 31.9 L Hemoglobin Concent Red Cell 17.6 H Distribution Width Platelet Count 241 Mean Platelet Volume 11.2 H Immature 0.300 Granulocytes % Neutrophils % 43.6 Lymphocytes % 28.1 Monocytes % 10.5 Eosinophils % 16.3 H Basophils % 1.2 Nucleated Red Blood 0.0 Cells % Immature 0.020 Granulocytes # Neutrophils # 3.4 Lymphocytes # 2.2 Monocytes # 0.8 Eosinophils # 1.3 H Basophils # 0.1 Nucleated Red Blood 0.0 Cells # Sodium Level 137 137 Potassium Level 6.9 *H 4.6 # Chloride Level 95 L 94 L Carbon Dioxide Level 24 24 Anion Gap 18 H 19 H Blood Urea Nitrogen 86 H 27 #H Creatinine 9.69 H 4.56 #H Est Glomerular 5 L 11 L Filtrat Rate mL/min Glucose Level 69 L 138 # Calcium Level 8.4 10.2 Bedside Glucose 69 L Ionized Calcium 1.1 (Measured) Creatine Kinase 22 L Creatine Kinase 1.6 Index Creatinine Kinase MB 0.36 (Mass) Troponin I < 0.012 Medications Medication Current Medications Albumin Human 100 ml @ 100 mls/hr WITH DIALYSIS PRN IV SBP <90 DURING DIALYSIS Last administered on 10/24/18at 21:00; Admin Dose 100 MLS/HR; Start 10/24/18 at 18:00 Sodium Chloride 250 ml @ 250 mls/hr Q1H PRN IV tachycardia Last administered on 11/10/18at 09:39; Admin Dose 250 MLS/HR; Start 10/25/18 at 01:00 Acetaminophen (Tylenol Tab) 650 mg Q4 PRN PO FEVER Last administered on 11/08/18at 18:01; Admin Dose 650 MG; Start 10/25/18 at 01:00 Sevelamer Carbonate (Renvela) 800 mg WITH MEALS PO Last administered on 11/20/18at 17:35; Admin Dose 800 MG; Start 10/25/18 at 07:35 Midodrine (Proamatine) 5 mg TID@09,13,17 PO Last administered on 11/20/18 17:35; Admin Dose 5 MG; Start 10/26/18 at 09:00 Lidocaine (Xylocaine 1% (Mdv) 20 ml) 1 ml WITH DIALYSIS PRN INJ PRIOR TO CANULLATION/HD; Start 10/26/18 at 12:30 Ondansetron HCl (Zofran Inj) 4 mg Q4H PRN IV NAUSEA AND/OR VOMITING Last administered on 11/19/18 17:03; Admin Dose 4 MG; Start 10/26/18 at 15:30 Mupirocin (Bactroban) 1 applic BID TOP Last administered on 11/20/18 21:13; Admin Dose 1 APPLIC; Start 11/02/18 at 13:30 Heparin Sodium (Porcine) (Heparin (1000 Units/ml)) 6,100 unit AFTER DIALYSIS PRN CATHETER DIALYSIS Last administered on 11/18/18 18:00; Admin Dose 6,100 UNIT; Start 11/07/18 at 14:00 Morphine Sulfate (morphine) 3 mg Q4H PRN IV SEVERE PAIN LEVEL 7-10 Last ad ministered on 11/20/18 21:20; Admin Dose 3 MG; Start 11/08/18 at 19:30 Metoprolol Tartrate (Lopressor) 5 mg Q4H PRN IV HR>110 Hold SBP<100 Last administered on 11/12/18 11:52; Admin Dose 5 MG; Start 11/09/18 at 14:30 Epoetin Maxwell-epbx (Retacrit (Esrd)) 6,000 unit We@1700 SC Last administered on 11/16/18 17:36; Admin Dose 6,000 UNIT; Start 11/16/18 at 17:00 Heparin Sodium (Porcine) (Heparin (1000 Units/ml)) 500 unit WITH DIALYSIS HE Last administered on 11/20/18 09:22; Admin Dose 500 UNIT; Start 11/18/18 at 14:00 Heparin Sodium (Porcine) (Heparin (1000 Units/ml)) 1,500 unit WITH DIALYSIS HE Last administered on 11/20/18 09:23; Admin Dose 1,500 UNIT; Start 11/18/18 at 14:00 Diphenhydramine HCl (Benadryl) 50 mg Q6H PRN IV ITCHING Last administered on 11/20/18at 17:35; Admin Dose 50 MG; Start 11/19/18 at 22:00 Hydrocortisone (Hydrocortisone 1% Cr) 1 applic BID TOP Last administered on 11/20/18at 21:20; Admin Dose 1 APPLIC; Start 11/20/18 at 09:00 GINGER HARDIN M.D. Nov 20, 2018 22:09
[2018-11-21] VITALS (23 sets, daily range): BP systolic 69–126; BP diastolic 45–75; PULSE 81–138; RESP 17–18
[2018-11-21] MEDS: morphine 4 MG/ML VIAL IV PRN ×2 (05:42→14:29)
[2018-11-21] MEDS: DIPHENHYDRAMINE 50 MG INJ IV PRN ×3 (05:42→17:59)
[2018-11-21] MEDS: SEVELAMER CARBONATE 800 MG TABLET PO SCH ×2 (08:03→13:37)
[2018-11-21] MEDS: MIDODRINE 5 MG TAB PO SCH ×3 (08:04→17:57)
[2018-11-21] MEDS: MUPIROCIN 2% 22 GM OINT TOP SCH ×2 (08:05→21:03)
[2018-11-21] MEDS: HYDROCORTISONE 1% 28 GM CR TOP SCH ×2 (08:06→21:03)
[2018-11-21] MEDS ORDERED: ALTEPLASE (CATHFLO) 2 MG INJ CATHETER PRN (09:30)
[2018-11-21] MEDS: HEPARIN 1000 UNITS/ML 10 ML INJ HE SCH ×2 (09:42→09:43)
--- NOTE | 2018-11-21 12:13 | CONS ---
Assessment/Plan Assessment/Plan Hospital Course (Demo Recall) IMPRESSION: 1. Bacteremia, assess for endocarditis, intracardiac source of infection. s/p AMANDA 11/04 with no definite signs intracardiac infection 2. Abnormal electrocardiogram with lateral T-wave inversion. 3. Hypertension, mainly diastolic labile, currently improved. 4. Leukemia. 5. Anemia. 6. Initial hypotension. Initially with midodrine- somewhat labile but not requiring midodrine 7. Tachycardia-now improved on midodrine BP support 8. ESRD on HD s/p new R femoral HD catheter Recc: -Tele -continue abx's and f/u cx data -HD for volume removal as tolerated, ongoing now -IVP PRN BB -Contineu midodrine BP support as necessary -Rx episodes of N/V Consultation Date/Type/Reason Admit Date/Time Oct 25, 2018 at 04:13 Initial Consult Date 10/25/18 Type of Consult Cardiology Reason for Consultation bacteremia Requesting Provider: LUANNE WALTER MD Date/Time of Note DATE: 11/21/18 TIME: 12:12 Exam/Review of Systems Vital Signs Vitals Vital Signs Date Temp Pulse Resp B/P (MAP) Pulse Ox O2 O2 Flow FiO2 Time Delivery Rate 11/21/18 97.1 96 17 96/70 (79) 100 11:26 11/21/18 Room Air 09:45 11/19/18 2.0 20:00 Intake and Output 11/20/18 11/20/18 11/21/18 1515:00 23:00 07:00 IntakeIntake Total 240 ml 420 ml 300 ml OutputOutput Total 3300 ml BalanceBalance -3060 ml 420 ml 300 ml Exam Exam Review of Systems: CONSTITUTIONAL: No fevers, chills. PULMONARY: No sob CARDIOVASCULAR: No chest pain/palpitations GASTROINTESTINAL: No nausea/vomiting. GENITOURINARY: No hematuria/dysuria. MUSCULOSKELETAL: No myagias/arthalgias. PSYCHIATRIC: The patient denies depression. NEUROLOGIC: No weakness Constitutional: alert Psych: no complaints Head: normocephalic ENMT: mucosa pink and moist Neck: supple, jvd Respiratory: clear to auscultation Cardiovascular: regular rate and rhythm Gastrointestinal: soft, non-tender Musculoskeletal: muscle tone (normal) Extremities: edema (none) Neurological: other (No focal deficits) Labs Result Diagram: 11/21/18 0520 11/21/18 05 Results 24hrs Laboratory Tests Test 11/20/18 13:11 11/20/18 13:12 11/21/18 05:20 Ionized Calcium (Measured) 1.1 Sodium Level 137 142 Potassium Level 4.6 # 5.8 H Chloride Level 94 L 99 Carbon Dioxide Level 24 25 Anion Gap 19 H 18 H Blood Urea Nitrogen 27 #H 60 #H Creatinine 4.56 #H 8.03 #H Est Glomerular Filtrat Rate mL/min 11 L 6 L Glucose Level 138 # 86 # Calcium Level 10.2 9.1 Creatine Kinase 22 L Creatine Kinase Index 1.6 Creatinine Kinase MB (Mass) 0.36 Troponin I < 0.012 White Blood Count 8.1 Red Blood Count 4.21 Hemoglobin 13.6 Hematocrit 43.4 Mean Corpuscular Volume 103.1 H Mean Corpuscular Hemoglobin 32.3 Mean Corpuscular Hemoglobin Concent 31.3 L Red Cell Distribution Width 17.9 H Platelet Count 254 Mean Platelet Volume 11.2 H Immature Granulocytes % 0.400 Neutrophils % 53.9 Lymphocytes % 25.0 Monocytes % 8.6 Eosinophils % 11.1 H Basophils % 1.0 Nucleated Red Blood Cells % 0.0 Immature Granulocytes # 0.030 Neutrophils # 4.4 Lymphocytes # 2.0 Monocytes # 0.7 Eosinophils # 0.9 H Basophils # 0.1 Nucleated Red Blood Cells # 0.0 Medications Medications Current Medications Albumin Human 100 ml @ 100 mls/hr WITH DIALYSIS PRN IV SBP <90 DURING DIALYSIS Last administered on 10/24/18at 21:00; Admin Dose 100 MLS/HR; Start 10/24/18 at 18:00 Sodium Chloride 250 ml @ 250 mls/hr Q1H PRN IV tachycardia Last administered on 11/10/18at 09:39; Admin Dose 250 MLS/HR; Start 10/25/18 at 01:00 Acetaminophen (Tylenol Tab) 650 mg Q4 PRN PO FEVER Last administered on 11/08/18at 18:01; Admin Dose 650 MG; Start 10/25/18 at 01:00 Sevelamer Carbonate (Renvela) 800 mg WITH MEALS PO Last administered on 11/21/18at 08:03; Admin Dose 800 MG; Start 10/25/18 at 07:35 Midodrine (Proamatine) 5 mg TID@09,13,17 PO Last administered on 11/21/18 08:04; Admin Dose 5 MG; Start 10/26/18 at 09:00 Lidocaine (Xylocaine 1% (Mdv) 20 ml) 1 ml WITH DIALYSIS PRN INJ PRIOR TO CANULLATION/HD; Start 10/26/18 at 12:30 Ondansetron HCl (Zofran Inj) 4 mg Q4H PRN IV NAUSEA AND/OR VOMITING Last administered on 11/19/18 17:03; Admin Dose 4 MG; Start 10/26/18 at 15:30 Mupirocin (Bactroban) 1 applic BID TOP Last administered on 11/21/18 08:05; Admin Dose 1 APPLIC; Start 11/02/18 at 13:30 Heparin Sodium (Porcine) (Heparin (1000 Units/ml)) 6,100 unit AFTER DIALYSIS PRN CATHETER DIALYSIS Last administered on 11/18/18 18:00; Admin Dose 6,100 UNIT; Start 11/07/18 at 14:00 Morphine Sulfate (morphine) 3 mg Q4H PRN IV SEVERE PAIN LEVEL 7-10 Last administered on 11/21/18 05:42; Admin Dose 3 MG; Start 11/08/18 at 19:30 Metoprolol Tartrate (Lopressor) 5 mg Q4H PRN IV HR>110 Hold SBP<100 Last administered on 11/12/18 11:52; Admin Dose 5 MG; Start 11/09/18 at 14:30 Epoetin Maxwell-epbx (Retacrit (Esrd)) 6,000 unit We@1700 SC Last administered on 11/16/18 17:36; Admin Dose 6,000 UNIT; Start 11/16/18 at 17:00 Heparin Sodium (Porcine) (Heparin (1000 Units/ml)) 500 unit WITH DIALYSIS HE Last administered on 11/21/18 09:42; Admin Dose 500 UNIT; Start 11/18/18 at 14:00 Heparin Sodium (Porcine) (Heparin (1000 Units/ml)) 1,500 unit WITH DIALYSIS HE Last administered on 11/21/18 09:43; Admin Dose 1,500 UNIT; Start 11/18/18 at 14:00 Diphenhydramine HCl (Benadryl) 50 mg Q6H PRN IV ITCHING Last administered on 7/29/19at 11:45; Admin Dose 50 MG; Start 11/19/18 at 22:00 Hydrocortisone (Hydrocortisone 1% Cr) 1 applic BID TOP Last administered on at 08:06; Admin Dose 1 APPLIC; Start 11/20/18 at 09:00 Alteplase, Recombinant (Cathflo (Activase)) 4 mg MAY REPEAT X1 PRN CATHETER IF CATHETER REMAINS OCCULUDED; Start 11/21/18 at 09:30 HENRIQUE GARCIA Nov 21, 2018 12:13
--- NOTE | 2018-11-21 13:27 | PN ---
Date/Time of Note Date/Time of Note DATE: 11/21/18 TIME: 13:27 Assessment/Plan VTE Prophylaxis Risk score (from N[place])>0 risk: 3 [place] [facility] [place] contraindicated: other Pharmacological prophylaxis: LMWH Lines/Catheters IV Catheter Type [facility]from [facility]): PERMACATH Urinary Cath still in place: No Assessment/Plan Hospital Course -Hyperkalemia, status post Kayexalate yesterday, continue hemodialysis per nephrology. -Sepsis with DIMITRI bacteremia with fevers, leukocytosis, and hypotension. Continue on oxacillin 2 g every 6 hours until 11/[address] Arora is following in ID consultation. AMANDA is negative for vegetation. Dr. Barrera is following in cardiology consultation. -Hemodialysis dependent end-stage renal disease, continue dialysis per nephrology. Dr. Beltran is following in nephrology consultation. -Leukemia, patient is undergoing chemotherapy last chemo was on Wednesday10/11/18. -Anemia multifactorial chronic disease and recent chemo, status post blood transfusion, continue to monitor H&H, continue Epogen. -Mineral bone disease with renal osteodystrophy. No acute fractures, traumatic subluxations, osteomyelitis or diskitis per MRI of the lumbar spine. -Primary hyperparathyroidism, status post complete parathyroidectomy and partial left thyroid lobectomy 2 years ago. -Left femoral hemodialysis catheter present on admission. Result Diagram: 11/21/18 0520 11/21/18 0520 Results 24hrs Laboratory Tests Test 11/21/18 05:20 White Blood Count 8.1 Red Blood Count 4.21 Hemoglobin 13.6 Hematocrit 43.4 Mean Corpuscular Volume 103.1 H Mean Corpuscular Hemoglobin 32.3 Mean Corpuscular Hemoglobin Concent 31.3 L Red Cell Distribution Width 17.9 H Platelet Count 254 Mean Platelet Volume 11.2 H Immature Granulocytes % 0.400 Neutrophils % 53.9 Lymphocytes % 25.0 Monocytes % 8.6 Eosinophils % 11.1 H Basophils % 1.0 Nucleated Red Blood Cells % 0.0 Immature Granulocytes # 0.030 Neutrophils # 4.4 Lymphocytes # 2.0 Monocytes # 0.7 Eosinophils # 0.9 H Basophils # 0.1 Nucleated Red Blood Cells # 0.0 Sodium Level 142 Potassium Level 5.8 H Chloride Level 99 Carbon Dioxide Level 25 Anion Gap 18 H Blood Urea Nitrogen 60 #H Creatinine 8.03 #H Est Glomerular Filtrat Rate mL/min 6 L Glucose Level 86 # Calcium Level 9.1 Subjective 24 Hr Interval Summary Free Text/Dictation Patient continues to have nausea/vomiting Exam/Review of Systems Exam Vitals Vital Signs Date Temp Pulse Resp B/P (MAP) Pulse Ox O2 O2 Flow FiO2 Time Delivery Rate 11/21/18 120 12:52 11/21/18 97.1 17 96/70 (79) 100 11:26 11/21/18 Room Air 09:45 11/19/18 2.0 20:00 Intake and Output 11/20/18 11/20/18 11/21/18 1515:00 23:00 07:00 IntakeIntake Total 240 ml 420 ml 300 ml OutputOutput Total 3300 ml BalanceBalance -3060 ml 420 ml 300 ml Constitutional: well developed Head: normocephalic, atraumatic Neck: supple Respiratory: diminished breath sounds Cardiovascular: regular rate and rhythm Gastrointestinal: soft, non-tender Extremities: normal pulses Results Results 24hrs Laboratory Tests Test 11/21/18 05:20 White Blood Count 8.1 Red Blood Count 4.21 Hemoglobin 13.6 Hematocrit 43.4 Mean Corpuscular Volume 103.1 H Mean Corpuscular Hemoglobin 32.3 Mean Corpuscular Hemoglobin Concent 31.3 L Red Cell Distribution Width 17.9 H Platelet Count 254 Mean Platelet Volume 11.2 H Immature Granulocytes % 0.400 Neutrophils % 53.9 Lymphocytes % 25.0 Monocytes % 8.6 Eosinophils % 11.1 H Basophils % 1.0 Nucleated Red Blood Cells % 0.0 Immature Granulocytes # 0.030 Neutrophils # 4.4 Lymphocytes # 2.0 Monocytes # 0.7 Eosinophils # 0.9 H Basophils # 0.1 Nucleated Red Blood Cells # 0.0 Sodium Level 142 Potassium Level 5.8 H Chloride Level 99 Carbon Dioxide Level 25 Anion Gap 18 H Blood Urea Nitrogen 60 #H Creatinine 8.03 #H Est Glomerular Filtrat Rate mL/min 6 L Glucose Level 86 # Calcium Level 9.1 Medications Medication Current Medications Albumin Human 100 ml @ 100 mls/hr WITH DIALYSIS PRN IV SBP <90 DURING DIALYSIS Last administered on 10/24/18at 21:00; Admin Dose 100 MLS/HR; Start 10/24/18 at 18:00 Sodium Chloride 250 ml @ 250 mls/hr Q1H PRN IV tachycardia Last administered on 11/10/18 09:39; Admin Dose 250 MLS/HR; Start 10/25/18 at 01:00 Acetaminophen (Tylenol Tab) 650 mg Q4 PRN PO FEVER Last administered on 11/08/18 18:01; Admin Dose 650 MG; Start 10/25/18 at 01:00 Sevelamer Carbonate (Renvela) 800 mg WITH MEALS PO Last administered on 11/21/18 08:03; Admin Dose 800 MG; Start 10/25/18 at 07:35 Midodrine (Proamatine) 5 mg TID@09,13,17 PO Last administered on 11/21/18 08:04; Admin Dose 5 MG; Start 10/26/18 at 09:00 Lidocaine (Xylocaine 1% (Mdv) 20 ml) 1 ml WITH DIALYSIS PRN INJ PRIOR TO CANULLATION/HD; Start 10/26/18 at 12:30 Ondansetron HCl (Zofran Inj) 4 mg Q4H PRN IV NAUSEA AND/OR VOMITING Last administered on 11/19/18 17:03; Admin Dose 4 MG; Start 10/26/18 at 15:30 Mupirocin (Bactroban) 1 applic BID TOP Last administered on 11/21/18 08:05; Admin Dose 1 APPLIC; Start 11/02/18 at 13:30 Heparin Sodium (Porcine) (Heparin (1000 Units/ml)) 6,100 unit AFTER DIALYSIS PRN CATHETER DIALYSIS Last administered on 11/18/18 18:00; Admin Dose 6,100 UNIT; Start 11/07/18 at 14:00 Morphine Sulfate (morphine) 3 mg Q4H PRN IV SEVERE PAIN LEVEL 7-10 Last administered on 11/21/18 05:42; Admin Dose 3 MG; Start 11/08/18 at 19:30 Metoprolol Tartrate (Lopressor) 5 mg Q4H PRN IV HR>110 Hold SBP<100 Last administered on 11/12/18 11:52; Admin Dose 5 MG; Start 11/09/18 at 14:30 Epoetin Maxwell-epbx (Retacrit (Esrd)) 6,000 unit We@1700 SC Last administered on 11/16/18 17:36; Admin Dose 6,000 UNIT; Start 11/16/18 at 17:00 Heparin Sodium (Porcine) (Heparin (1000 Units/ml)) 500 unit WITH DIALYSIS HE Last administered on 11/21/18 09:42; Admin Dose 500 UNIT; Start 11/18/18 at 14:00 Heparin Sodium (Porcine) (Heparin (1000 Units/ml)) 1,500 unit WITH DIALYSIS HE Last administered on 11/21/18 09:43; Admin Dose 1,500 UNIT; Start 11/18/18 at 14:00 Diphenhydramine HCl (Benadryl) 50 mg Q6H PRN IV ITCHING Last administered on 11/21/18 11:45; Admin Dose 50 MG; Start 11/19/18 at 22:00 Hydrocortisone (Hydrocortisone 1% Cr) 1 applic BID TOP Last administered on 11/21/18 08:06; Admin Dose 1 APPLIC; Start 11/20/18 at 09:00 Alteplase, Recombinant (Cathflo (Activase)) 4 mg MAY REPEAT X1 PRN CATHETER IF CATHETER REMAINS OCCULUDED Last administered on 11/21/18 12:41; Admin Dose 4 MG; Start 11/21/18 at 09:30 ANGELY PANG Nov 21, 2018 13:27
--- NOTE | 2018-11-21 15:11 | CONS ---
Assessment/Plan Assessment/Plan Hospital Course (Demo Recall) # sepsis, endovascular infections - s/p sepsis due to bacteremia, recurrent. Resolved - s/p persistent and recurrent bacteremia on 10/24, 10/25, and 10/26 due to MSSA; repeat blood cultures on 10/28 & 11/02 were negative; transthoracic echo did not mention vegetation; AMANDA showed no vegetation. - the source of her bacteremia was her HD catheter. No other focus of infection was found: WBC tagged scan on 11/05/2018 showed several non-specific foci of increased activity along R anterior chest wall; however, chest CT on 11/07/2018 showed no fluid collection identified within the chest wall. 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 Per Pt, she had pruritus, "bumps" and green discharge from the catheter site. Its culture on 10/31/2018 grew S. aureus. It was removed on 11/04/2018 - s/p placement of an HD catheter on R groin on 11/07/2018-->removed on 11/10/18 - s/p placement of an HD catheter on L groin on 11/10/2018 - soft tissue CHRISTEL of b/l groin on 11/10/2018 did not show hematoma or active signs of bleeding or abscess, on 11/16/2018 showed prominent lymph node - h/o removal of PermCath on R chest wall on 07/14/2018 - h/o R femoral HD justin catheter placement 07/14/2018, replaced by HD permacath 07/19/2018 - h/o pain/increased sensitivity of R groin after replacement of the Perez with permacath. soft tissue CHRISTEL on 07/20/2018 showed no abnormality at the site of the palpable lesion adjacent to R inguinal region HD catheter - h/o swelling on the scalp and chest wall, possibly due to collateral veins as a result of thrombosis of AVF - h/o removal and placement of a new Perez catheter in 05/2018. The culture of the tip of the removed catheter, blood cultures and swab of the catheter site we re negative. Pt completed an empiric course of renally dosed pip/tazo (06/13/2018-06/18/2018) - h/o placement of a permacath on R chest wall on 06/23/2018 - h/o creation of AVF in [place] in 2016 - thrombosed L brachiocephalic AV fistula, 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 Last used for HD in 04/2018. Was scheduled to get a new graft in [place] as outpatient # GI//cardiac - h/o biliary colic: according to Pt, she had received authorization for elective cholecystectomy as outpatient - h/o MRCP in 07/2017: negative for cholelithiasis or cholecystitis - amenorrhea since AVF creation in 2016 - I reviewed Pt's cardiac rhythm. 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 Her last cycle was in early 2018 # dermatological/musculoskeletal - pruritus, possibly related to folliculitis. 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 Pt took renally dosed valACV (07/15/2018-07/17/2018) - a sensation of soft, swollen skull: head CT on 11/20/2018 showed no acute intracranial hemorrhage, transcortical infarction or mass effect; it showed diffuse thickening and heterogeneous sclerotic skull compatible with renal osteodystrophy # allergy/other - adverse reaction to vancomycin (pruritus) - adverse reaction to linezolid (thrombocytopenia). Linezolid was discontinued (06/12/2018-06/17/2018) - ?adverse reaction to cefazolin (severe abd pain/cramping, although pt tolerated a 14 day course of cefazolin in 06/2018) - painful nodule on L thumb; X-ray shows possible subcutaneous mass adjacent to the radial aspect of the first metacarpal. Recommendations: - continue to monitor patient off systemic antibiotics - Pt completed renally dosed oxacillin 2gm IV q6 hours (10/30/2018-) for 2 weeks after removal of her HD catheter, i.e. 11/04/18-11/18/18 Management d/w patient, pt's mother at bedside, BRIANA Alvarado, and with Dr. Herrera Consultation Date/Type/Reason Admit Date/Time Oct 25, 2018 at 04:13 Initial Consult Date 10/25/18 Type of Consult Infectious Disease Requesting Provider: LUANNE WALTER MD Date/Time of Note DATE: 11/21/18 TIME: 15:10 24 HR Interval Summary Free Text/Dictation Pt c/o n/v yesterday and intermittent tachycardia. States feeling "mal" = "bad'. Reports L great toe is "purple" when HR is elevated and states her L foot felt cold. Pt states when blood was drawn this AM, she had red blood but when she had HD today, pt states her blood was "black". Pt's nurse reports that pt has intermittent tachycardia with movement. HD removal was limited d/t low blood pressure and tachycardia during HD. Remains on midodrine. Exam/Review of Systems Exam Vitals Vital Signs Date Temp Pulse Resp B/P (MAP) Pulse Ox O2 O2 Flow FiO2 Time Delivery Rate 11/21/18 120 12:52 11/21/18 97.1 17 96/70 (79) 100 11:26 11/21/18 Room Air 09:45 11/19/18 2.0 20:00 Intake and Output 11/20/18 11/20/18 11/21/18 1515:00 23:00 07:00 IntakeIntake Total 240 ml 420 ml 300 ml OutputOutput Total 3300 ml BalanceBalance -3060 ml 420 ml 300 ml Constitutional: alert, well developed, frail Psych: anxiety (mildly anxious) Head: normocephalic, atraumatic, other (alopecia) Eyes: nl conjunctiva, nl lids, nl sclera ENMT: nl external ears & nose, nl nasal mucosa & septum, mucosa pink and moist Neck: supple Respiratory: clear to auscultation, normal air movement Cardiovascular: nl pulses, other (regular rate, tachycardic); No edema Gastrointestinal: soft, non-tender Genitourinary - Female: other (L femoral HD catheter in place ) Musculoskeletal: nl extremities to inspection Extremities: normal pulses Neurological: HAND TAPPER II-XII intact, nl mental status, nl speech Skin: nl turgor, rash or lesions (scattered lesions/folliculitis from scratching on her lower face, neck and extremities), other (few tattoos) Results Result Diagram: 11/21/18 0520 11/21/18 0520 Results 24hrs Laboratory Tests Test 11/21/18 05:20 White Blood Count 8.1 Red Blood Count 4.21 Hemoglobin 13.6 Hematocrit 43.4 Mean Corpuscular Volume 103.1 H Mean Corpuscular Hemoglobin 32.3 Mean Corpuscular Hemoglobin Concent 31.3 L Red Cell Distribution Width 17.9 H Platelet Count 254 Mean Platelet Volume 11.2 H Immature Granulocytes % 0.400 Neutrophils % 53.9 Lymphocytes % 25.0 Monocytes % 8.6 Eosinophils % 11.1 H Basophils % 1.0 Nucleated Red Blood Cells % 0.0 Immature Granulocytes # 0.030 Neutrophils # 4.4 Lymphocytes # 2.0 Monocytes # 0.7 Eosinophils # 0.9 H Basophils # 0.1 Nucleated Red Blood Cells # 0.0 Sodium Level 142 Potassium Level 5.8 H Chloride Level 99 Carbon Dioxide Level 25 Anion Gap 18 H Blood Urea Nitrogen 60 #H Creatinine 8.03 #H Est Glomerular Filtrat Rate mL/min 6 L Glucose Level 86 # Calcium Level 9.1 Medications Medication Current Medications Albumin Human 100 ml @ 100 mls/hr WITH DIALYSIS PRN IV SBP <90 DURING DIALYSIS Last administered on 10/24/18at 21:00; Admin Dose 100 MLS/HR; Start 10/24/18 at 18:00 Sodium Chloride 250 ml @ 250 mls/hr Q1H PRN IV tachycardia Last administered on 11/10/18at 09:39; Admin Dose 250 MLS/HR; Start 10/25/18 at 01:00 Acetaminophen (Tylenol Tab) 650 mg Q4 PRN PO FEVER Last administered on 11/08/18at 18:01; Admin Dose 650 MG; Start 10/25/18 at 01:00 Sevelamer Carbonate (Renvela) 800 mg WITH MEALS PO Last administered on 11/21/18at 13:37; Admin Dose 800 MG; Start 10/25/18 at 07:35 Midodrine (Proamatine) 5 mg TID@09,13,17 PO Last administered on 11/21/18 13:38; Admin Dose 5 MG; Start 10/26/18 at 09:00 Lidocaine (Xylocaine 1% (Mdv) 20 ml) 1 ml WITH DIALYSIS PRN INJ PRIOR TO CANULLATION/HD; Start 10/26/18 at 12:30 Ondansetron HCl (Zofran Inj) 4 mg Q4H PRN IV NAUSEA AND/OR VOMITING Last administered on 11/19/18 17:03; Admin Dose 4 MG; Start 10/26/18 at 15:30 Mupirocin (Bactroban) 1 applic BID TOP Last administered on 11/21/18 08:05; Admin Dose 1 APPLIC; Start 11/02/18 at 13:30 Heparin Sodium (Porcine) (Heparin (1000 Units/ml)) 6,100 unit AFTER DIALYSIS PRN CATHETER DIALYSIS Last administered on 11/18/18 18:00; Admin Dose 6,100 UNIT; Start 11/07/18 at 14:00 Morphine Sulfate (morphine) 3 mg Q4H PRN IV SEVERE PAIN LEVEL 7-10 Last administered on 11/21/18 14:29; Admin Dose 3 MG; Start 11/08/18 at 19:30 Metoprolol Tartrate (Lopressor) 5 mg Q4H PRN IV HR>110 Hold SBP<100 Last admin istered on 11/12/18 11:52; Admin Dose 5 MG; Start 11/09/18 at 14:30 Epoetin Maxwell-epbx (Retacrit (Esrd)) 6,000 unit We@1700 SC Last administered on 11/16/18 17:36; Admin Dose 6,000 UNIT; Start 11/16/18 at 17:00 Heparin Sodium (Porcine) (Heparin (1000 Units/ml)) 500 unit WITH DIALYSIS HE Last administered on 11/21/18 09:42; Admin Dose 500 UNIT; Start 11/18/18 at 14:00 Heparin Sodium (Porcine) (Heparin (1000 Units/ml)) 1,500 unit WITH DIALYSIS HE Last administered on 11/21/18 09:43; Admin Dose 1,500 UNIT; Start 11/18/18 at 14:00 Diphenhydramine HCl (Benadryl) 50 mg Q6H PRN IV ITCHING Last administered on 7/29/19at 11:45; Admin Dose 50 MG; Start 11/19/18 at 22:00 Hydrocortisone (Hydrocortisone 1% Cr) 1 applic BID TOP Last administered on 11/21/18at 08:06; Admin Dose 1 APPLIC; Start 11/20/18 at 09:00 Alteplase, Recombinant (Cathflo (Activase)) 4 mg MAY REPEAT X1 PRN CATHETER IF CATHETER REMAINS OCCULUDED Last administered on 11/21/18at 12:41; Admin Dose 4 MG; Start 11/21/18 at 09:30 Metoclopramide HCl (Reglan) 10 mg Q6 IV ; Start 11/21/18 at 18:00 EDIE BUENO NP Nov 21, 2018 15:11
--- NOTE | 2018-11-21 17:13 | CONS ---
Assessment/Plan Assessment/Plan Assessment/Plan (Daily) 1. Septic shock s/p Levophed - now resolved 2. ESRD on HD MWF schedule , left femoral permacath for HD access 3. Bacteremia with Blood cx growing staph aureus -s/p removal of left permacath on 11/04/18- pt remained line free for 3 days then insertion of Right groin permacath on 11/07/18 which is removed due to hematoma around catheter site then pt subsequently had a new permacath placemen ton left groin on 11/10/18 4. H/o Leukemia currently on chemotherapy, last chem on 10/21/18 5. H/o Primary hyperparathyroidism, status post complete parathyroidectomy and partial left thyroid lobectomy 2 years ago. 6. H/o Anemia of ESRD 7, Difficult vascular Access 8. anemia of ESRD 9. Acute hyperkalemia Plan: s/p Removal of Right groin permacath,due to pericatheter hematoma, now s/p left groin permacath placement- S/p HD today 1.6 L removed, pt HR has been high during HD, so we will not remove more than 1.5 kg during Hd now, will keep her on MWF schedule, next HD will be no Wednesday staph aureus bacteremia -s/p IV oxacillin, finished all abx - ID following- Continue other home medications, Calcitriol 0.25mcg po daily , Midodrine 5 mg PO TID for BP support - Epogen 6000 units Q week Consultation Date/Type/Reason Admit Date/Time Oct 25, 2018 at 04:13 Initial Consult Date Type of Consult NEPHROLOGY Requesting Provider: LUANNE WALTER MD Date/Time of Note DATE: 11/21/18 TIME: 17:13 Exam/Review of Systems Exam Vitals Vital Signs Date Temp Pulse Resp B/P (MAP) Pulse Ox O2 O2 Flow FiO2 Time Delivery Rate 11/21/18 98.0 116 17 83/45 (58) 99 15:43 11/21/18 Room Air 09:45 11/19/18 2.0 20:00 Intake and Output 11/20/18 11/20/18 11/21/18 1515:00 23:00 07:00 IntakeIntake Total 240 ml 420 ml 300 ml OutputOutput Total 3300 ml BalanceBalance -3060 ml 420 ml 300 ml Exam Constitutional: alert, awake, no acute distress Respiratory: clear to auscultation Cardiovascular: regular rate and rhythm Gastrointestinal: soft, non-tender Musculoskeletal: nl extremities to inspection Extremities: normal pulses Neurological: nl mental status Additional Comments Left femoral hemodialysis catheter, left upper extremity AV fistula nonfunctional Results Result Diagram: 11/21/18 0520 11/21/18 0520 Results 24hrs Laboratory Tests Test 11/21/18 05:20 White Blood Count 8.1 Red Blood Count 4.21 Hemoglobin 13.6 Hematocrit 43.4 Mean Corpuscular Volume 103.1 H Mean Corpuscular Hemoglobin 32.3 Mean Corpuscular Hemoglobin Concent 31.3 L Red Cell Distribution Width 17.9 H Platelet Count 254 Mean Platelet Volume 11.2 H Immature Granulocytes % 0.400 Neutrophils % 53.9 Lymphocytes % 25.0 Monocytes % 8.6 Eosinophils % 11.1 H Basophils % 1.0 Nucleated Red Blood Cells % 0.0 Immature Granulocytes # 0.030 Neutrophils # 4.4 Lymphocytes # 2.0 Monocytes # 0.7 Eosinophils # 0.9 H Basophils # 0.1 Nucleated Red Blood Cells # 0.0 Sodium Level 142 Potassium Level 5.8 H Chloride Level 99 Carbon Dioxide Level 25 Anion Gap 18 H Blood Urea Nitrogen 60 #H Creatinine 8.03 #H Est Glomerular Filtrat Rate mL/min 6 L Glucose Level 86 # Calcium Level 9.1 Medications Medication Current Medications Albumin Human 100 ml @ 100 mls/hr WITH DIALYSIS PRN IV SBP <90 DURING DIALYSIS Last administered on 10/24/18at 21:00; Admin Dose 100 MLS/HR; Start 10/24/18 at 18:00 Sodium Chloride 250 ml @ 250 mls/hr Q1H PRN IV tachycardia Last administered on 11/10/18at 09:39; Admin Dose 250 MLS/HR; Start 10/25/18 at 01:00 Acetaminophen (Tylenol Tab) 650 mg Q4 PRN PO FEVER Last administered on 11/08/18at 18:01; Admin Dose 650 MG; Start 10/25/18 at 01:00 Sevelamer Carbonate (Renvela) 800 mg WITH MEALS PO Last administered on 11/21/18at 13:37; Admin Dose 800 MG; Start 10/25/18 at 07:35 Midodrine (Proamatine) 5 mg TID@,13,17 PO Last administered on 11/21/18 13:38; Admin Dose 5 MG; Start 10/26/18 at 09:00 Lidocaine (Xylocaine 1% (Mdv) 20 ml) 1 ml WITH DIALYSIS PRN INJ PRIOR TO CANULLATION/HD; Start 10/26/18 at 12:30 Ondansetron HCl (Zofran Inj) 4 mg Q4H PRN IV NAUSEA AND/OR VOMITING Last administered on 11/19/18 17:03; Admin Dose 4 MG; Start 10/26/18 at 15:30 Mupirocin (Bactroban) 1 applic BID TOP Last administered on 11/21/18 08:05; Admin Dose 1 APPLIC; Start 11/02/18 at 13:30 Heparin Sodium (Porcine) (Heparin (1000 Units/ml)) 6,100 unit AFTER DIALYSIS PRN CATHETER DIALYSIS Last administered on 11/18/18 18:00; Admin Dose 6,100 UNIT; Start 11/07/18 at 14:00 Morphine Sulfate (morphine) 3 mg Q4H PRN IV SEVERE PAIN LEVEL 7-10 Last administered on 11/21/18 14:29; Admin Dose 3 MG; Start 11/08/18 at 19:30 Metoprolol Tartrate (Lopressor) 5 mg Q4H PRN IV HR>110 Hold SBP<100 Last administered on 11/12/18 11:52; Admin Dose 5 MG; Start 11/09/18 at 14:30 Epoetin Maxwell-epbx (Retacrit (Esrd)) 6,000 unit We@1700 SC Last administered on 11/16/18 17:36; Admin Dose 6,000 UNIT; Start 11/16/18 at 17:00 Heparin Sodium (Porcine) (Heparin (1000 Units/ml)) 500 unit WITH DIALYSIS HE Last administered on 11/21/18 09:42; Admin Dose 500 UNIT; Start 11/18/18 at 14:00 Heparin Sodium (Porcine) (Heparin (1000 Units/ml)) 1,500 unit WITH DIALYSIS HE Last administered on 11/21/18 09:43; Admin Dose 1,500 UNIT; Start 11/18/18 at 14:00 Diphenhydramine HCl (Benadryl) 50 mg Q6H PRN IV ITCHING Last administered on 7/29/19at 11:45; Admin Dose 50 MG; Start 11/19/18 at 22:00 Hydrocortisone (Hydrocortisone 1% Cr) 1 applic BID TOP Last administered on at 08:06; Admin Dose 1 APPLIC; Start 11/20/18 at 09:00 Alteplase, Recombinant (Cathflo (Activase)) 4 mg MAY REPEAT X1 PRN CATHETER IF CATHETER REMAINS OCCULUDED Last administered on 11/21/18at 12:41; Admin Dose 4 MG; Start 11/21/18 at 09:30 Metoclopramide HCl (Reglan) 10 mg Q6 IV ; Start 11/21/18 at 18:00 Calcitriol (Rocaltrol) 0.25 mcg DAILY PO ; Start 11/21/18 at 17:00 HENRIQUE GRANADO MD Nov 21, 2018 17:13
--- NOTE | 2018-11-21 17:24 | CONS ---
Assessment/Plan Assessment/Plan Problems: (1) Postprocedural hypoparathyroidism Status: Chronic Comment: Pt. has h/o partial post-operative hypoparathyroidism. Last PTH was 14. Possible cause of bone pain although would consider leukemia as more likely source. Will restart low-dose calcitriol 0.25 mcg daily and monitor calcium levels. Unless hypercalcemia occurs, this should not be d/c'ed. Thank you. Consultation Date/Type/Reason Admit Date/Time Oct 25, 2018 at 04:13 Date of Consultation: Nov 21, 2018 Type of Consult Endocrinology Reason for Consultation Bone pain w/ h/o hypoparathyroidism Requesting Provider: EDILMA CASIANO Date/Time of Note DATE: 11/21/18 TIME: 17:15 Hx of Present Illness 33-year-old single female who had a history of end-stage renal disease and tertiary hyperparathyroidism as well as NTMNG. She had actually undergone surgical parathyroidectomy and hemithyroidectomy roughly 15 months ago but had postoperative hypoparathyroidism. 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 She had a prolonged course of trying to get her set total body calcium stores up to an acceptable range. Pt. was taking her calcitriol up until her d/c at last visit 3 m. ago. This may or may not have been continued at home but pt. has not been on it this admit. 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 Pt. presented 4 weeks ago w/ fevers and sepsis. Pt. has been complaining of bone pain and endo was consulted. Calcium levels have ranged from low to normal this admit. Constitutional: chills Eyes: no complaints ENT: no complaints Respiratory: no complaints Gastrointestinal: no complaints Genitourinary: no complaints Musculoskeletal: back pain, bone/joint pain Neurologic: no complaints Past Medical History Medical History: cancer (ALL), high cholesterol, hypertension, renal disease (ESRD), other (history of primary hyperparathyroidism status post complete parathyroidectomy and partial left thyroid lobectomy 2 years ago. Patient with history of bacteremia secondary to MSSA) Home Meds Reported Medications Sevelamer Hcl* (Renagel*) 800 Mg Tablet, 800 MG PO WITH MEALS, TAB 05/14/18 Medications Current Medications Albumin Human 100 ml @ 100 mls/hr WITH DIALYSIS PRN IV SBP <90 DURING DIALYSIS Last administered on 10/24/18 21:00; Admin Dose 100 MLS/HR; Start 10/24/18 at 18:00 Sodium Chloride 250 ml @ 250 mls/hr Q1H PRN IV tachycardia Last administered on 11/10/18 09:39; Admin Dose 250 MLS/HR; Start 10/25/18 at 01:00 Acetaminophen (Tylenol Tab) 650 mg Q4 PRN PO FEVER Last administered on 11/08/18 18:01; Admin Dose 650 MG; Start 10/25/18 at 01:00 Sevelamer Carbonate (Renvela) 800 mg WITH MEALS PO Last administered on 11/21/18 13:37; Admin Dose 800 MG; Start 10/25/18 at 07:35 Midodrine (Proamatine) 5 mg TID@09,13,17 PO Last administered on 11/21/18 13:38; Admin Dose 5 MG; Start 10/26/18 at 09:00 Lidocaine (Xylocaine 1% (Mdv) 20 ml) 1 ml WITH DIALYSIS PRN INJ PRIOR TO CANULLATION/HD; Start 10/26/18 at 12:30 Ondansetron HCl (Zofran Inj) 4 mg Q4H PRN IV NAUSEA AND/OR VOMITING Last administered on 11/19/18 17:03; Admin Dose 4 MG; Start 10/26/18 at 15:30 Mupirocin (Bactroban) 1 applic BID TOP Last administered on 11/21/18 08:05; Admin Dose 1 APPLIC; Start 11/02/18 at 13:30 Heparin Sodium (Porcine) (Heparin (1000 Units/ml)) 6,100 unit AFTER DIALYSIS PRN CATHETER DIALYSIS Last administered on 11/18/18 18:00; Admin Dose 6,100 UNIT; Start 11/07/18 at 14:00 Morphine Sulfate (morphine) 3 mg Q4H PRN IV SEVERE PAIN LEVEL 7-10 Last administered on 11/21/18 14:29; Admin Dose 3 MG; Start 11/08/18 at 19:30 Metoprolol Tartrate (Lopressor) 5 mg Q4H PRN IV HR>110 Hold SBP<100 Last administered on 11/12/18 11:52; Admin Dose 5 MG; Start 11/09/18 at 14:30 Epoetin Maxwell-epbx (Retacrit (Esrd)) 6,000 unit We@1700 SC Last administered on 11/16/18 17:36; Admin Dose 6,000 UNIT; Start 11/16/18 at 17:00 Heparin Sodium (Porcine) (Heparin (1000 Units/ml)) 500 unit WITH DIALYSIS HE Last administered on 11/21/18 09:42; Admin Dose 500 UNIT; Start 11/18/18 at 14:00 Heparin Sodium (Porcine) (Heparin (1000 Units/ml)) 1,500 unit WITH DIALYSIS HE Last administered on 11/21/18 09:43; Admin Dose 1,500 UNIT; Start 11/18/18 at 14:00 Diphenhydramine HCl (Benadryl) 50 mg Q6H PRN IV ITCHING Last administered on 11/21/18 11:45; Admin Dose 50 MG; Start 11/19/18 at 22:00 Hydrocortisone (Hydrocortisone 1% Cr) 1 applic BID TOP Last administered on 11/21/18 08:06; Admin Dose 1 APPLIC; Start 11/20/18 at 09:00 Alteplase, Recombinant (Cathflo (Activase)) 4 mg MAY REPEAT X1 PRN CATHETER IF CATHETER REMAINS OCCULUDED Last administered on 11/21/18at 12:41; Admin Dose 4 MG; Start 11/21/18 at 09:30 Metoclopramide HCl (Reglan) 10 mg Q6 IV ; Start 11/21/18 at 18:00 Calcitriol (Rocaltrol) 0.25 mcg DAILY PO ; Start 11/21/18 at 17:00 Allergies: Coded Allergies: cefazolin (Verified Allergy, Severe, SEVERE ABDOMINAL PAIN, ITCHINESS, 10/30/18) vancomycin (Unverified Allergy, Severe, 10/24/18) pruritus Past Surgical History Past Surgical Hx: other (Status post left upper extremity AV fistula creation in 2017, status post subtotal parathyroidectomy and right superior and inferior glands and partial left inferior gland in June 2016, status post complete parathyroidectomy and partial left thyroid lobectomy in October 2016, status post multiple hemodialysis placement and subsequent removal)) Family History Significant Family History: hypertension Social History b. [facility], [place], in [facility] since 1994, single, 1 child, not working Alcohol Use: none Smoking Status: Former smoker Drug Use: none Exam/Review of Systems Exam Vitals VS - Last 72 Hours, by Label Date Temp Pulse Resp B/P (MAP) Pulse Ox O2 O2 Flow FiO2 Time Delivery Rate 11/21/18 98.0 116 17 83/45 (58) 99 15:43 11/21/18 120 12:52 11/21/18 118 12:40 11/21/18 138 12:25 11/21/18 123 12:06 11/21/18 126 11:52 11/21/18 108 11:35 11/21/18 97.1 96 17 96/70 (79) 100 11:26 11/21/18 96 11:20 11/21/18 92 11:05 11/21/18 92 10:51 11/21/18 92 10:35 11/21/18 92 10:20 11/21/18 83 10:05 11/21/18 84 09:50 11/21/18 81 18 101/73 99 Room Air 09:45 (82) 82 11/21/18 97.8 83 17 101/60 99 07:54 (74) 11/21/18 18 103/63 95 05:00 (76) 11/21/18 97.6 93 17 83/56 (65) 98 04:00 11/21/18 97.8 86 18 126/59 99 00:00 (81) 11/20/18 18 101/56 96 21:00 (71) 11/20/18 97.9 85 17 87/48 (61) 95 20:00 11/20/18 83 20:00 11/20/18 97.8 111 16 104/57 92 Room Air 15:40 (73) 11/20/18 104/55 14:43 (71) 11/20/18 119 16 93/56 (68) 96 Room Air 13:24 11/20/18 85 12:50 11/20/18 108 12:35 11/20/18 116 12:20 11/20/18 88 12:05 11/20/18 110 11:50 11/20/18 112 11:35 11/20/18 98.0 101 16 100/76 Room Air 11:30 (84) 11/20/18 106 11:20 11/20/18 101 11:05 11/20/18 100 10:50 11/20/18 91 10:35 11/20/18 84 10:20 11/20/18 87 10:05 11/20/18 82 09:50 11/20/18 98 16 114/82 96 Room Air 09:50 (93) 11/20/18 97.9 79 16 107/58 98 Room Air 07:22 (74) 11/20/18 98.5 79 18 119/71 99 04:00 (87) 11/20/18 78 04:00 11/20/18 90 00:00 11/20/18 98.2 80 18 116/83 96 00:00 (94) 11/19/18 Nasal 2.0 20:00 Cannula 11/19/18 98.1 79 17 110/58 99 20:00 (75) 11/19/18 85 20:00 11/19/18 97.8 103 18 103/67 98 Room Air 15:24 (79) 11/19/18 98.1 97 16 113/63 99 Room Air 12:08 (80) 11/19/18 98.5 93 16 107/61 98 Room Air 07:45 (76) 11/19/18 97.9 81 19 99/54 (69) 96 Room Air 04:00 11/19/18 18 91/55 (67) 97 Room Air 00:36 11/19/18 98.5 81 19 99 Room Air 00:04 11/18/18 98.3 127 19 100/50 98 Room Air 19:10 (67) 11/18/18 110 17:30 Vital Signs Date Temp Pulse Resp B/P (MAP) Pulse Ox O2 O2 Flow FiO2 Time Delivery Rate 11/21/18 98.0 116 17 83/45 (58) 99 15:43 11/21/18 Room Air 09:45 11/19/18 2.0 20:00 Intake and Output 11/20/18 11/20/18 11/21/18 1515:00 23:00 07:00 IntakeIntake Total 240 ml 420 ml 300 ml OutputOutput Total 3300 ml BalanceBalance -3060 ml 420 ml 300 ml Constitutional: alert, oriented, frail Psych: anxiety Eyes: nl conjunctiva, EOMI, nl lids, nl sclera, PERRL ENMT: nl external ears & nose, mucosa pink and moist Neck: supple, non-tender; No bruits, No masses, No thyromegaly Respiratory: clear to auscultation, normal air movement Cardiovascular: regular rate and rhythm, nl pulses; No edema, No murmurs/extra sounds, No rub Gastrointestinal: soft, nl liver, spleen, non-tender, bowel sounds; No mass, No rebound or guarding Musculoskeletal: nl extremities to inspection Extremities: normal pulses; No cyanosis, No clubbing, No edema Neurological: [employer]NA[employer] II-XII intact, nl mental status, nl speech, nl strength Results Result Diagram: 11/21/1851911/21/18519 Results 24hrs Laboratory Tests Test 11/21/18 05:20 White Blood Count 8.1 Red Blood Count 4.21 Hemoglobin 13.6 Hematocrit 43.4 Mean Corpuscular Volume 103.1 H Mean Corpuscular Hemoglobin 32.3 Mean Corpuscular Hemoglobin Concent 31.3 L Red Cell Distribution Width 17.9 H Platelet Count 254 Mean Platelet Volume 11.2 H Immature Granulocytes % 0.400 Neutrophils % 53.9 Lymphocytes % 25.0 Monocytes % 8.6 Eosinophils % 11.1 H Basophils % 1.0 Nucleated Red Blood Cells % 0.0 Immature Granulocytes # 0.030 Neutrophils # 4.4 Lymphocytes # 2.0 Monocytes # 0.7 Eosinophils # 0.9 H Basophils # 0.1 Nucleated Red Blood Cells # 0.0 Sodium Level 142 Potassium Level 5.8 H Chloride Level 99 Carbon Dioxide Level 25 Anion Gap 18 H Blood Urea Nitrogen 60 #H Creatinine 8.03 #H Est Glomerular Filtrat Rate mL/min 6 L Glucose Level 86 # Calcium Level 9.1 Medications Medication Current Medications Albumin Human 100 ml @ 100 mls/hr WITH DIALYSIS PRN IV SBP <90 DURING DIALYSIS Last administered on 10/24/18at 21:00; Admin Dose 100 MLS/HR; Start 10/24/18 at 18 :00 Sodium Chloride 250 ml @ 250 mls/hr Q1H PRN IV tachycardia Last administered on 11/10/18 09:39; Admin Dose 250 MLS/HR; Start 10/25/18 at 01:00 Acetaminophen (Tylenol Tab) 650 mg Q4 PRN PO FEVER Last administered on 11/08/18 18:01; Admin Dose 650 MG; Start 10/25/18 at 01:00 Sevelamer Carbonate (Renvela) 800 mg WITH MEALS PO Last administered on 11/21/18at 13:37; Admin Dose 800 MG; Start 10/25/18 at 07:35 Midodrine (Proamatine) 5 mg TID@09,13,17 PO Last administered on 11/21/18 13:38; Admin Dose 5 MG; Start 10/26/18 at 09:00 Lidocaine (Xylocaine 1% (Mdv) 20 ml) 1 ml WITH DIALYSIS PRN INJ PRIOR TO CANULLATION/HD; Start 10/26/18 at 12:30 Ondansetron HCl (Zofran Inj) 4 mg Q4H PRN IV NAUSEA AND/OR VOMITING Last administered on 11/19/18 17:03; Admin Dose 4 MG; Start 10/26/18 at 15:30 Mupirocin (Bactroban) 1 applic BID TOP Last administered on 11/21/18 08:05; Admin Dose 1 APPLIC; Start 11/02/18 at 13:30 Heparin Sodium (Porcine) (Heparin (1000 Units/ml)) 6,100 unit AFTER DIALYSIS PRN CATHETER DIALYSIS Last administered on 11/18/18 18:00; Admin Dose 6,100 UNIT; Start 11/07/18 at 14:00 Morphine Sulfate (morphine) 3 mg Q4H PRN IV SEVERE PAIN LEVEL 7-10 Last administered on 11/21/18 14:29; Admin Dose 3 MG; Start 11/08/18 at 19:30 Metoprolol Tartrate (Lopressor) 5 mg Q4H PRN IV HR>110 Hold SBP<100 Last administered on 11/12/18 11:52; Admin Dose 5 MG; Start 11/09/18 at 14:30 Epoetin Maxwell-epbx (Retacrit (Esrd)) 6,000 unit We@1700 SC Last administered on 11/16/18 17:36; Admin Dose 6,000 UNIT; Start 11/16/18 at 17:00 Heparin Sodium (Porcine) (Heparin (1000 Units/ml)) 500 unit WITH DIALYSIS HE Last administered on 11/21/18 09:42; Admin Dose 500 UNIT; Start 11/18/18 at 14 :00 Heparin Sodium (Porcine) (Heparin (1000 Units/ml)) 1,500 unit WITH DIALYSIS HE Last administered on 11/21/18 09:43; Admin Dose 1,500 UNIT; Start 11/18/18 at 14:00 Diphenhydramine HCl (Benadryl) 50 mg Q6H PRN IV ITCHING Last administered on 11/21/18at 11:45; Admin Dose 50 MG; Start 11/19/18 at 22:00 Hydrocortisone (Hydrocortisone 1% Cr) 1 applic BID TOP Last administered on 11/21/18at 08:06; Admin Dose 1 APPLIC; Start 11/20/18 at 09:00 Alteplase, Recombinant (Cathflo (Activase)) 4 mg MAY REPEAT X1 PRN CATHETER IF CATHETER REMAINS OCCULUDED Last administered on 11/21/18at 12:41; Admin Dose 4 MG; Start 11/21/18 at 09:30 Metoclopramide HCl (Reglan) 10 mg Q6 IV ; Start 11/21/18 at 18:00 Calcitriol (Rocaltrol) 0.25 mcg DAILY PO ; Start 11/21/18 at 17:00 DWAYNE YEUNG MD Nov 21, 2018 17:23
[2018-11-21] MEDS: CALCITRIOL 0.25 MCG CAP PO SCH (17:58)
[2018-11-21] MEDS: METOCLOPRAMIDE 10 MG INJ IV SCH (21:01)
[2018-11-22] VITALS (7 sets, daily range): BP systolic 75–116; BP diastolic 47–75; PULSE 81–114; RESP 17–20
[2018-11-22] MEDS: DIPHENHYDRAMINE 50 MG INJ IV PRN ×3 (00:12→12:16)
[2018-11-22] MEDS: morphine 4 MG/ML VIAL IV PRN ×4 (00:18→15:15)
[2018-11-22] MEDS: METOCLOPRAMIDE 10 MG INJ IV SCH ×3 (02:18→11:43)
[2018-11-22] MEDS: CALCITRIOL 0.25 MCG CAP PO SCH (08:00)
[2018-11-22] MEDS: SEVELAMER CARBONATE 800 MG TABLET PO SCH ×3 (08:00→12:21)
[2018-11-22] MEDS: MIDODRINE 5 MG TAB PO SCH ×2 (08:01→12:56)
[2018-11-22] MEDS: MUPIROCIN 2% 22 GM OINT TOP SCH (08:01)
[2018-11-22] MEDS: HYDROCORTISONE 1% 28 GM CR TOP SCH (08:02)
--- NOTE | 2018-11-22 10:17 | CONS ---
Consult Date/Type/Reason Admit Date/Time Oct 25, 2018 at 04:13 Initial Consult Date 10/25/18 Requesting Provider: EDILMA CASIANO Date/Time of Note DATE: 11/22/18 TIME: 10:15 Subjective No acute events - looks better overall - BP on low side - BP meds held - no CP now. ROS: No fever, no chills, no nausea, no vomiting, no diarrhea/constipation No recent weight changes No chest pain, no PND, no orthopnea - mild SOB No dizziness, blurred vision No thirst, no heat or cold intolerance Objective Vitals Vital Signs Date Temp Pulse Resp B/P (MAP) Pulse Ox O2 O2 Flow FiO2 Time Delivery Rate 11/22/18 97.5 103 17 75/47 (56) 95 07:44 11/21/18 Room Air 09:45 11/19/18 2.0 20:00 Intake and Output 11/21/18 11/21/18 11/22/18 1515:00 23:00 07:00 IntakeIntake Total 350 ml 400 ml 100 ml OutputOutput Total 2206 ml BalanceBalance -1856 ml 400 ml 100 ml Exam General: WN/WD/NAD, AOx 3 HEENT: Unicetric/atraumatic/EOMI (follow commands) NECK: JVD elevated, no thyromegaly Lymph: no lymphadenopathy HEART: regular with no S3, II/ systolic murmur at apex LUNGS: Coarse sounds ABD: soft, NT, ND, +BS : Intact Neuro: non focal SKIN: chronic changes EXT: trace edema Results/Medications Result Diagram: 11/21/18 0520 11/22/18 0702 Results 24 hrs Laboratory Tests Test 11/22/18 07:02 Sodium Level 140 Potassium Level 5.4 H Chloride Level 98 Carbon Dioxide Level 23 Anion Gap 19 H Blood Urea Nitrogen 55 H Creatinine 6.96 H Glucose Level 90 Calcium Level 9.3 Phosphorus Level 11.0 H Albumin 4.6 Home Meds Reported Medications Sevelamer Hcl* (Renagel*) 800 Mg Tablet, 800 MG PO WITH MEALS, TAB 05/14/18 Medications Current Medications Albumin Human 100 ml @ 100 mls/hr WITH DIALYSIS PRN IV SBP <90 DURING DIALYSIS Last administered on 10/24/18at 21:00; Admin Dose 100 MLS/HR; Start 10/24/18 at 18:00 Sodium Chloride 250 ml @ 250 mls/hr Q1H PRN IV tachycardia Last administered on 11/10/18 09:39; Admin Dose 250 MLS/HR; Start 10/25/18 at 01:00 Acetaminophen (Tylenol Tab) 650 mg Q4 PRN PO FEVER Last administered on 11/08/18 18:01; Admin Dose 650 MG; Start 10/25/18 at 01:00 Sevelamer Carbonate (Renvela) 800 mg WITH MEALS PO Last administered on 11/22/18 08:03; Admin Dose 800 MG; Start 10/25/18 at 07:35 Midodrine (Proamatine) 5 mg TID@09,13,17 PO Last administered on 11/22/18 08:01; Admin Dose 5 MG; Start 10/26/18 at 09:00 Lidocaine (Xylocaine 1% (Mdv) 20 ml) 1 ml WITH DIALYSIS PRN INJ PRIOR TO CANULLATION/HD; Start 10/26/18 at 12:30 Ondansetron HCl (Zofran Inj) 4 mg Q4H PRN IV NAUSEA AND/OR VOMITING Last administered on 11/19/18 17:03; Admin Dose 4 MG; Start 10/26/18 at 15:30 Mupirocin (Bactroban) 1 applic BID TOP Last administered on 11/22/18 08:01; Admin Dose 1 APPLIC; Start 11/02/18 at 13:30 Heparin Sodium (Porcine) (Heparin (1000 Units/ml)) 6,100 unit AFTER DIALYSIS PRN CATHETER DIALYSIS Last administered on 11/18/18 18:00; Admin Dose 6,100 UNIT; Start 11/07/18 at 14:00 Morphine Sulfate (morphine) 3 mg Q4H PRN IV SEVERE PAIN LEVEL 7-10 Last adm inistered on 11/22/18 06:23; Admin Dose 3 MG; Start 11/08/18 at 19:30 Metoprolol Tartrate (Lopressor) 5 mg Q4H PRN IV HR>110 Hold SBP<100 Last administered on 11/12/18 11:52; Admin Dose 5 MG; Start 11/09/18 at 14:30 Epoetin Maxwell-epbx (Retacrit (Esrd)) 6,000 unit We@1700 SC Last administered on 11/16/18 17:36; Admin Dose 6,000 UNIT; Start 11/16/18 at 17:00 Heparin Sodium (Porcine) (Heparin (1000 Units/ml)) 500 unit WITH DIALYSIS HE Last administered on 11/21/18 09:42; Admin Dose 500 UNIT; Start 11/18/18 at 14:00 Heparin Sodium (Porcine) (Heparin (1000 Units/ml)) 1,500 unit WITH DIALYSIS HE Last administered on 11/21/18 09:43; Admin Dose 1,500 UNIT; Start 11/18/18 at 14:00 Diphenhydramine HCl (Benadryl) 50 mg Q6H PRN IV ITCHING Last administered on 11/22/18 06:15; Admin Dose 50 MG; Start 11/19/18 at 22:00 Hydrocortisone (Hydrocortisone 1% Cr) 1 applic BID TOP Last administered on 11/22/18 08:02; Admin Dose 1 APPLIC; Start 11/20/18 at 09:00 Alteplase, Recombinant (Cathflo (Activase)) 4 mg MAY REPEAT X1 PRN CATHETER IF CATHETER REMAINS OCCULUDED Last administered on 11/21/18 12:41; Admin Dose 4 MG; Start 11/21/18 at 09:30 Metoclopramide HCl (Reglan) 10 mg Q6 IV Last administered on 11/22/18 06:15; Admin Dose 10 MG; Start 11/21/18 at 18:00 Calcitriol (Rocaltrol) 0.25 mcg DAILY PO Last administered on 11/22/18 08:00; Admin Dose 0.25 MCG; Start 11/21/18 at 17:00 Assessment/Plan Hospital Course (Demo Recall) 1. Bacteremia, assess for endocarditis, intracardiac source of infection. s/p AMANDA 11/04 with no definite signs intracardiac infection - on therapy now - with low BP, but no true Sx - con;t to monitor now - overall, looks better - but BP low - hold meds 2. Abnormal electrocardiogram with lateral T-wave inversion- r/o mI - no CP. No intervention palnned. 3. Hypertension, mainly diastolic labile, currently improved - better with HD - Rx with renal team. 4. Leukemia - oncology follows- WBC 8.1 now. 5. Anemia - no bleeding now - Hg 13.6 6. Initial hypotension. Initially with midodrine- somewhat labile but not requiring midodrine 7. Tachycardia-S tach now improved, started after HD yesterday. Still has with ambulation. ? relative volume depletion 8. ESRD on HD s/p new R femoral HD catheter - HD now. YUMIKO HO MD Nov 22, 2018 10:17
--- NOTE | 2018-11-22 11:21 | PDOCDIS ---
Discharge Instructions CONDITION [id number] Patient Condition: [id number] Good HOME CARE INSTRUCTIONS: [id number] Diet Instructions: [id number] Regular ACTIVITY: [id number] Activity Restrictions: [id number] Slowly Increase Activity Rest between Activity Avoid heavy lifting Avoid Heavy Housework FOLLOW UP/APPOINTMENTS Follow-up Plan Follow up with dialysis unit for schedueld HD on MWF- Follow up with her own [employer] in 1 week HENRIQUE GRANADO MD Nov 22, 2018 11:21
[2018-11-22] MEDS ORDERED: NA POLYST SULFON 15 GM/60 ML BTL PO STA (11:22)
--- NOTE | 2018-11-22 11:24 | CONS ---
Assessment/Plan Assessment/Plan Assessment/Plan (Daily) 1. Septic shock s/p Levophed - now resolved 2. ESRD on HD MWF schedule , left femoral permacath for HD access 3. Bacteremia with Blood cx growing staph aureus -s/p removal of left permacath on 11/04/18- pt remained line free for 3 days then insertion of Right groin permacath on 11/07/18 which is removed due to hematoma around catheter site then pt subsequently had a new permacath placemen ton left groin on 11/10/18 4. H/o Leukemia currently on chemotherapy, last chem on 10/21/18 5. H/o Primary hyperparathyroidism, status post complete parathyroidectomy and partial left thyroid lobectomy 2 years ago. 6. H/o Anemia of ESRD 7, Difficult vascular Access 8. anemia of ESRD 9. Acute hyperkalemia Plan: s/p Removal of Right groin permacath,due to pericatheter hematoma, now s/p left groin permacath placement- S/p HD yesterday , ok to d/c home today, pt has chair time at HD unit tomorrow at 5 pm staph aureus bacteremia -s/p IV oxacillin, finished all abx - ID following- Continue other home medications, Calcitriol 0.25mcg po daily , Midodrine 5 mg PO TID for BP support - Epogen 6000 units Q week ok to d/c home today Consultation Date/Type/Reason Admit Date/Time Oct 25, 2018 at 04:13 Initial Consult Date Type of Consult NEPHROLOGY Requesting Provider: EDILMA CASIANO Date/Time of Note DATE: 11/22/18 TIME: 11:23 Exam/Review of Systems Exam Vitals Vital Signs Date Temp Pulse Resp B/P (MAP) Pulse Ox O2 O2 Flow FiO2 Time Delivery Rate 11/22/18 97.5 103 17 75/47 (56) 95 07:44 11/21/18 Room Air 09:45 11/19/18 2.0 20:00 Intake and Output 11/21/18 11/21/18 11/22/18 1515:00 23:00 07:00 IntakeIntake Total 350 ml 400 ml 100 ml OutputOutput Total 2206 ml BalanceBalance -1856 ml 400 ml 100 ml Results Result Diagram: 11/21/18 0520 11/22/18 0702 Results 24hrs Laboratory Tests Test 11/22/18 07:02 Sodium Level 140 Potassium Level 5.4 H Chloride Level 98 Carbon Dioxide Level 23 Anion Gap 19 H Blood Urea Nitrogen 55 H Creatinine 6.96 H Glucose Level 90 Calcium Level 9.3 Ionized Calcium (Measured) Phosphorus Level 11.0 H Albumin 4.6 Medications Medication Current Medications Albumin Human 100 ml @ 100 mls/hr WITH DIALYSIS PRN IV SBP <90 DURING DIALYSIS Last administered on 10/24/18 21:00; Admin Dose 100 MLS/HR; Start 10/24/18 at 18:00 Sodium Chloride 250 ml @ 250 mls/hr Q1H PRN IV tachycardia Last administered on 11/10/18 09:39; Admin Dose 250 MLS/HR; Start 10/25/18 at 01:00 Acetaminophen (Tylenol Tab) 650 mg Q4 PRN PO FEVER Last administered on 11/08/18 18:01; Admin Dose 650 MG; Start 10/25/18 at 01:00 Sevelamer Carbonate (Renvela) 800 mg WITH MEALS PO Last administered on 11/22/18 08:03; Admin Dose 800 MG; Start 10/25/18 at 07:35 Midodrine (Proamatine) 5 mg TID@09,13,17 PO Last administered on 11/22/18 08:01; Admin Dose 5 MG; Start 10/26/18 at 09:00 Lidocaine (Xylocaine 1% (Mdv) 20 ml) 1 ml WITH DIALYSIS PRN INJ PRIOR TO CANULLATION/HD; Start 10/26/18 at 12:30 Ondansetron HCl (Zofran Inj) 4 mg Q4H PRN IV NAUSEA AND/OR VOMITING Last administered on 11/19/18 17:03; Admin Dose 4 MG; Start 10/26/18 at 15:30 Mupirocin (Bactroban) 1 applic BID TOP Last administered on 11/22/18 08:01; Admin Dose 1 APPLIC; Start 11/02/18 at 13:30 Heparin Sodium (Porcine) (Heparin (1000 Units/ml)) 6,100 unit AFTER DIALYSIS PRN CATHETER DIALYSIS Last administered on 11/18/18 18:00; Admin Dose 6,100 UNIT; Start 11/07/18 at 14:00 Morphine Sulfate (morphine) 3 mg Q4H PRN IV SEVERE PAIN LEVEL 7-10 Last administered on 11/22/18 10:25; Admin Dose 3 MG; Start 11/08/18 at 19:30 Metoprolol Tartrate (Lopressor) 5 mg Q4H PRN IV HR>110 Hold SBP<100 Last administered on 11/12/18 11:52; Admin Dose 5 MG; Start 11/09/18 at 14:30 Epoetin Maxwell-epbx (Retacrit (Esrd)) 6,000 unit We@1700 SC Last administered on 11/16/18 17:36; Admin Dose 6,000 UNIT; Start 11/16/18 at 17:00 Heparin Sodium (Porcine) (Heparin (1000 Units/ml)) 500 unit WITH DIALYSIS HE Last administered on 11/21/18 09:42; Admin Dose 500 UNIT; Start 11/18/18 at 14:00 Heparin Sodium (Porcine) (Heparin (1000 Units/ml)) 1,500 unit WITH DIALYSIS HE Last administered on 11/21/18 09:43; Admin Dose 1,500 UNIT; Start 11/18/18 at 14:00 Diphenhydramine HCl (Benadryl) 50 mg Q6H PRN IV ITCHING Last administered on 11/22/18 06:15; Admin Dose 50 MG; Start 11/19/18 at 22:00 Hydrocortisone (Hydrocortisone 1% Cr) 1 applic BID TOP Last administered on 11/22/18 08:02; Admin Dose 1 APPLIC; Start 11/20/18 at 09:00 Alteplase, Recombinant (Cathflo (Activase)) 4 mg MAY REPEAT X1 PRN CATHETER IF CATHETER REMAINS OCCULUDED Last administered on 11/21/18 12:41; Admin Dose 4 MG; Start 11/21/18 at 09:30 Metoclopramide HCl (Reglan) 10 mg Q6 IV Last administered on 11/22/18 06:15; Admin Dose 10 MG; Start 11/21/18 at 18:00 Calcitriol (Rocaltrol) 0.25 mcg DAILY PO Last administered on 11/22/18 08:00; Admin Dose 0.25 MCG; Start 11/21/18 at 17:00 HENRIQUE GRANADO MD Nov 22, 2018 11:24
--- NOTE | 2018-11-22 14:33 | DS ---
Date/Time of Note Date/Time of Note DATE: 11/22/18 TIME: 14:31 Discharge Summary Admission/Discharge Info Admit Date/Time Oct 25, 2018 at 04:13 Discharge Date/Time 11/22/18 Discharge Diagnosis -Hyperkalemia, status post Kayexalate yesterday, continue hemodialysis per nephrology. -Sepsis with DIMITRI bacteremia with fevers, leukocytosis, and hypotension. Continue on oxacillin 2 g every 6 hours until 11/[address] Arora is following in ID consultation. AMANDA is negative for vegetation. Dr. Barrera is following in cardiology consultation. -Hemodialysis dependent end-stage renal disease, continue dialysis per nephrology. Dr. Beltran is following in nephrology consultation. -Leukemia, patient is undergoing chemotherapy last chemo was on Wednesday10/11/18. -Anemia multifactorial chronic disease and recent chemo, status post blood transfusion, continue to monitor H&H, continue Epogen. -Mineral bone disease with renal osteodystrophy. No acute fractures, traumatic subluxations, osteomyelitis or diskitis per MRI of the lumbar spine. -Primary hyperparathyroidism, status post complete parathyroidectomy and partial left thyroid lobectomy 2 years ago. -Left femoral hemodialysis catheter present on admission. Patient Condition: Fair Consults nephrology infectious disease hematology/oncology Procedures none Hx of Present Illness Patient with leukemia comes in with hyperkalemia. Hospital Course Patient with leukemia comes in with hyperkalemia on hemodialysis. Patient also had sepsis and was treated with antibiotics. Patient eventually improved. She will be discharged with continue hemodialysis. -Hyperkalemia, status post Kayexalate yesterday, continue hemodialysis per nephrology. -Sepsis with DIMITRI bacteremia with fevers, leukocytosis, and hypotension. Continue on oxacillin 2 g every 6 hours until 11/[address] Arora is following in ID consultation. AMANDA is negative for vegetation. Dr. Barrera is following in cardiology consultation. -Hemodialysis dependent end-stage renal disease, continue dialysis per nephrology. Dr. Beltran is following in nephrology consultation. -Leukemia, patient is undergoing chemotherapy last chemo was on Wednesday10/11/18. -Anemia multifactorial chronic disease and recent chemo, status post blood transfusion, continue to monitor H&H, continue Epogen. -Mineral bone disease with renal osteodystrophy. No acute fractures, traumatic subluxations, osteomyelitis or diskitis per MRI of the lumbar spine. -Primary hyperparathyroidism, status post complete parathyroidectomy and partial left thyroid lobectomy 2 years ago. -Left femoral hemodialysis catheter present on admission. Home Meds Reported Medications Sevelamer Hcl* (Renagel*) 800 Mg Tablet, 800 MG PO WITH MEALS, TAB 05/14/18 Follow-up Plan Follow up with dialysis unit for schedueld HD on MWF- Follow up with her own Budget [facility] in 1 week Primary Care Provider El Proyejoseo Valentín Mathias Pending [facility] Laboratory Tests Test 11/22/18 07:02 Sodium Level 140 mmol/L (135-144) Potassium Level 5.4 mmol/L (3.5-5.1) Chloride Level 98 mmol/L (97-110) Carbon Dioxide Level 23 mmol/L (21-31) Anion Gap 19 (5-13) Blood Urea Nitrogen 55 mg/dl (7-20) Creatinine 6.96 mg/dl (0.44-1.00) Glucose Level 90 mg/dl (70-220) Calcium Level 9.3 mg/dl (8.4-10.2) Ionized Calcium (Measured) mmol/L (1.1-1.4) Phosphorus Level 11.0 mg/dl (2.5-4.9) Albumin 4.6 g/dl (3.3-4.9) ANGELY PANG Nov 22, 2018 14:33
--- NOTE | 2018-11-22 15:09 | CONS ---
Assessment/Plan Assessment/Plan Hospital Course (Demo Recall) # sepsis, endovascular infections - s/p sepsis due to bacteremia, recurrent. Resolved - s/p persistent and recurrent bacteremia on 10/24, 10/25, and 10/26 due to MSSA; repeat blood cultures on 10/28 & 11/02 were negative; transthoracic echo did not mention vegetation; AMANDA showed no vegetation. - the source of her bacteremia was her HD catheter. No other focus of infection was found: WBC tagged scan on 11/05/2018 showed several non-specific foci of increased activity along R anterior chest wall; however, chest CT on 11/07/2018 showed no fluid collection identified within the chest wall. 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 Per Pt, she had pruritus, "bumps" and green discharge from the catheter site. Its culture on 10/31/2018 grew S. aureus. It was removed on 11/04/2018 - s/p placement of an HD catheter on R groin on 11/07/2018-->removed on 11/10/18 - s/p placement of an HD catheter on L groin on 11/10/2018 - soft tissue CHRISTEL of b/l groin on 11/10/2018 did not show hematoma or active signs of bleeding or abscess, on 11/16/2018 showed prominent lymph node - h/o removal of PermCath on R chest wall on 07/14/2018 - h/o R femoral HD justin catheter placement 07/14/2018, replaced by HD permacath 07/19/2018 - h/o pain/increased sensitivity of R groin after replacement of the Perez with permacath. soft tissue CHRISTEL on 07/20/2018 showed no abnormality at the site of the palpable lesion adjacent to R inguinal region HD catheter - h/o swelling on the scalp and chest wall, possibly due to collateral veins as a result of thrombosis of AVF - h/o removal and placement of a new Perez catheter in 05/2018. The culture of the tip of the removed catheter, blood cultures and swab of the catheter site we re negative. 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 Last used for HD in 04/2018. Was scheduled to get a new graft in [facility] [place] as outpatient # GI//cardiac - h/o biliary colic: according to Pt, she had received authorization for elective cholecystectomy as outpatient - h/o MRCP in 07/2017: negative for cholelithiasis or cholecystitis - amenorrhea since AVF creation in 2016 - I reviewed Pt's cardiac rhythm. 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 Her last cycle was in early 2018 # dermatological/musculoskeletal - pruritus, possibly related to folliculitis. 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 Pt took renally dosed valACV (07/15/2018-07/17/2018) - a sensation of soft, swollen skull: head CT on 11/20/2018 showed no acute intracranial hemorrhage, transcortical infarction or mass effect; it showed diffuse thickening and heterogeneous sclerotic skull compatible with renal osteodystrophy # allergy/other - adverse reaction to vancomycin (pruritus) - adverse reaction to linezolid (thrombocytopenia). Linezolid was discontinued (06/12/2018-06/17/2018) - ?adverse reaction to cefazolin (severe abd pain/cramping, although pt tolerated a 14 day course of cefazolin in 06/2018) - painful nodule on L thumb; X-ray shows possible subcutaneous mass adjacent to the radial aspect of the first metacarpal. Recommendations: - continue to monitor patient off systemic antibiotics - Pt completed renally dosed oxacillin 2gm IV q6 hours (10/30/2018-) for 2 weeks after removal of her HD catheter, i.e. 11/04/18-11/18/18 Consultation Date/Type/Reason Admit Date/Time Oct 25, 2018 at 04:13 Initial Consult Date 10/25/18 Type of Consult ID Requesting Provider: EDILMA CASIANO Date/Time of Note DATE: 11/22/18 TIME: 15:09 Exam/Review of Systems Exam Vitals Vital Signs Date Temp Pulse Resp B/P (MAP) Pulse Ox O2 O2 Flow FiO2 Time Delivery Rate 11/22/18 97.5 100 17 103/64 97 11:48 (77) 11/21/18 Room Air 09:45 11/19/18 2.0 20:00 Intake and Output 11/21/18 11/21/18 11/22/18 1515:00 23:00 07:00 IntakeIntake Total 350 ml 400 ml 100 ml OutputOutput Total 2206 ml BalanceBalance -1856 ml 400 ml 100 ml Results Result Diagram: 11/21/18 0520 11/22/18 0702 Results 24hrs Laboratory Tests Test 11/22/18 07:02 Sodium Level 140 Potassium Level 5.4 H Chloride Level 98 Carbon Dioxide Level 23 Anion Gap 19 H Blood Urea Nitrogen 55 H Creatinine 6.96 H Glucose Level 90 Calcium Level 9.3 Ionized Calcium (Measured) Phosphorus Level 11.0 H Albumin 4.6 Medications Medication Current Medications Albumin Human 100 ml @ 100 mls/hr WITH DIALYSIS PRN IV SBP <90 DURING DIALYSIS Last administered on 10/24/18at 21:00; Admin Dose 100 MLS/HR; Start 10/24/18 at 18:00 Sodium Chloride 250 ml @ 250 mls/hr Q1H PRN IV tachycardia Last administered on 11/10/18at 09:39; Admin Dose 250 MLS/HR; Start 10/25/18 at 01:00 Acetaminophen (Tylenol Tab) 650 mg Q4 PRN PO FEVER Last administered on 11/08/18at 18:01; Admin Dose 650 MG; Start 10/25/18 at 01:00 Sevelamer Carbonate (Renvela) 800 mg WITH MEALS PO Last administered on 11/22/18at 12:21; Admin Dose 800 MG; Start 10/25/18 at 07:35 Midodrine (Proamatine) 5 mg TID@09,13,17 PO Last administered on 11/22/18 12:56; Admin Dose 5 MG; Start 10/26/18 at 09:00 Lidocaine (Xylocaine 1% (Mdv) 20 ml) 1 ml WITH DIALYSIS PRN INJ PRIOR TO CANULLATION/HD; Start 10/26/18 at 12:30 Ondansetron HCl (Zofran Inj) 4 mg Q4H PRN IV NAUSEA AND/OR VOMITING Last administered on 11/19/18 17:03; Admin Dose 4 MG; Start 10/26/18 at 15:30 Mupirocin (Bactroban) 1 applic BID TOP Last administered on 11/22/18 08:01; Admin Dose 1 APPLIC; Start 11/02/18 at 13:30 Heparin Sodium (Porcine) (Heparin (1000 Units/ml)) 6,100 unit AFTER DIALYSIS PRN CATHETER DIALYSIS Last administered on 11/18/18 18:00; Admin Dose 6,100 UNIT; Start 11/07/18 at 14:00 Morphine Sulfate (morphine) 3 mg Q4H PRN IV SEVERE PAIN LEVEL 7-10 Last administered on 11/22/18 10:25; Admin Dose 3 MG; Start 11/08/18 at 19:30 Metoprolol Tartrate (Lopressor) 5 mg Q4H PRN IV HR>110 Hold SBP<100 Last administered on 11/12/18 11:52; Admin Dose 5 MG; Start 11/09/18 at 14:30 Epoetin Maxwell-epbx (Retacrit (Esrd)) 6,000 unit We@1700 SC Last administered on 11/16/18 17:36; Admin Dose 6,000 UNIT; Start 11/16/18 at 17:00 Heparin Sodium (Porcine) (Heparin (1000 Units/ml)) 500 unit WITH DIALYSIS HE Last administered on 11/21/18 09:42; Admin Dose 500 UNIT; Start 11/18/18 at 14:00 Heparin Sodium (Porcine) (Heparin (1000 Units/ml)) 1,500 unit WITH DIALYSIS HE Last administered on 11/21/18 09:43; Admin Dose 1,500 UNIT; Start 11/18/18 at 14:00 Diphenhydramine HCl (Benadryl) 50 mg Q6H PRN IV ITCHING Last administered on 11/22/18 12:16; Admin Dose 50 MG; Start 11/19/18 at 22:00 Hydrocortisone (Hydrocortisone 1% Cr) 1 applic BID TOP Last administered on 08:02; Admin Dose 1 APPLIC; Start 11/20/18 at 09:00 Alteplase, Recombinant (Cathflo (Activase)) 4 mg MAY REPEAT X1 PRN CATHETER IF CATHETER REMAINS OCCULUDED Last administered on 11/21/18 12:41; Admin Dose 4 MG; Start 11/21/18 at 09:30 Metoclopramide HCl (Reglan) 10 mg Q6 IV Last administered on 11/22/18 11:43; Admin Dose 10 MG; Start 11/21/18 at 18:00 Calcitriol (Rocaltrol) 0.25 mcg DAILY PO Last administered on 11/22/18 08:00; Admin Dose 0.25 MCG; Start 11/21/18 at 17:00 MUMTAZ LOPEZ MD Nov 22, 2018 15:09
== END 2018-11-22 17:11 | disposition home or self-care (01) | DRG 314 ==
LOC: E/R 15:21 → ICU 10-25 04:13 → EDBEDREQSVC 10-25 04:43 → ICU 10-25 06:10 → TEL 10-26 22:20
PROVIDERS: ADMIT Internal Medicine; ATTEND Internal Medicine
PROC: 5A1D70Z Performance of Urinary Filtration, Intermittent, Less than 6 Hours Per Day (ICD-10-PCS; 2018-10-24)
PROC: 30233N1 Transfusion of Nonautologous Red Blood Cells into Peripheral Vein, Percutaneous Approach (ICD-10-PCS; 2018-10-26)
PROC: 0JPT3XZ Removal of Tunneled Vascular Access Device from Trunk Subcutaneous Tissue and Fascia, Percutaneous Approach (ICD-10-PCS; 2018-11-04)
PROC: 02PY33Z Removal of Infusion Device from Great Vessel, Percutaneous Approach (ICD-10-PCS; 2018-11-04)
PROC: 02H633Z Insertion of Infusion Device into Right Atrium, Percutaneous Approach (ICD-10-PCS; principal; 2018-11-07)
PROC: 0JH63XZ Insertion of Tunneled Vascular Access Device into Chest Subcutaneous Tissue and Fascia, Percutaneous Approach (ICD-10-PCS; 2018-11-07)
PROC: 0JHM3XZ Insertion of Tunneled Vascular Access Device into Left Upper Leg Subcutaneous Tissue and Fascia, Percutaneous Approach (ICD-10-PCS; 2018-11-10)
PROC: 06H033Z Insertion of Infusion Device into Inferior Vena Cava, Percutaneous Approach (ICD-10-PCS; 2018-11-10)
PROC: 0JPTXXZ Removal of Tunneled Vascular Access Device from Trunk Subcutaneous Tissue and Fascia, External Approach (ICD-10-PCS; 2018-11-10)
PROC: 02PAX3Z Removal of Infusion Device from Heart, External Approach (ICD-10-PCS; 2018-11-10)
DX: T82.7XXA Infection and inflammatory reaction due to other cardiac and vascular devices, implants and grafts, initial encounter (principal); A41.01 Sepsis due to Methicillin susceptible Staphylococcus aureus; R65.21 Severe sepsis with septic shock; N18.6 End stage renal disease; I12.0 Hypertensive chronic kidney disease with stage 5 chronic kidney disease or end stage renal disease; C95.90 Leukemia, unspecified not having achieved remission; E87.5 Hyperkalemia; D63.1 Anemia in chronic kidney disease; L29.9 Pruritus, unspecified; T36.8X5A Adverse effect of other systemic antibiotics, initial encounter; N25.0 Renal osteodystrophy; D64.81 Anemia due to antineoplastic chemotherapy; T82.838A Hemorrhage due to vascular prosthetic devices, implants and grafts, initial encounter; E83.81 Hungry bone syndrome; E89.2 Postprocedural hypoparathyroidism; Z99.2 Dependence on renal dialysis
CPT/HCPCS: 36430; 36590; 70450; 71045; 71250; 72149; 73218; 74018; 76536; 78806; 80048; 80053; 80069; 80076; 82085; 82330; 82550; 82553; 82962; 83605; 83690; 83735; 84484; 84703; 85025; 85610; 85730; 86850; 86900; 86901; 86920; 87070; 87340; 90935; 93005; 93306; 93312; 93320; 93325; 96374; 96375; A9570; C1752; J0610; J0690; J0692; J1170; J1200; J1644; J1815; J2060; J2250; J2270; J2405; J2597; J2765; J2997; J3010; J7040; P9011; P9016; P9047; Q4081; Q5105; Q9967

== ENCOUNTER 2018-11-24 11:00 | Emergency (ER) | payer OTHER ==
[~2018-11-24] VITALS: Wt 50.7 kg
[2018-11-24 11:03] VITALS: BP 124/59; PULSE 132; RESP 18
[2018-11-24] MEDS ORDERED: ONDANSETRON 4 MG INJ IV STA (11:12)
[2018-11-24] MEDS ORDERED: morphine 4 MG/ML VIAL IV STA (11:12)
[2018-11-24] MEDS ORDERED: DIPHENHYDRAMINE 50 MG INJ IV ONE (12:30)
--- NOTE | 2018-11-24 13:04 | ERD ---
ER Documentation Chief Complaint Chief Complaint BODY PAIN, [facility]UE HYPERKALEMIA 6.7 YESTERDAY HPI 33-year-old female history of leukemia on chemotherapy once a week, end-stage renal disease on hemodialysis done yesterday. The patient was told that her blood draw yesterday after dialysis had a potassium of 6.7 was told to come to the emergency room. Patient is describing some body pain is consistent with her chronic pain to her back and extremities. The patient states the pain is moderate and throbbing at this time. She denies any fevers chills chest pain or shortness of breath. ROS All systems reviewed and are negative except as per history of present illness. Medications Home Meds Reported Medications Calcium Acetate* (Calcium Acetate*) 667 Mg Capsule, 667 MG PO WITH MEALS, #30 CAP 11/24/18 Sevelamer Hcl* (Renagel*) 800 Mg Tablet, 800 MG PO WITH MEALS, TAB 05/14/18 Allergies Allergies: Coded Allergies: cefazolin (Verified Allergy, Severe, SEVERE ABDOMINAL PAIN, ITCHINESS, 11/24/18) vancomycin (Unverified Allergy, Severe, 11/24/18) pruritus PMhx/Soc History of Surgery: Yes (DIALYSIS CATHETER PLACEMENT, THYROID SX) Anesthesia Reaction: No Hx Neurological Disorder: No Hx Respiratory Disorders: No Hx Cardiac Disorders: No Hx Psychiatric Problems: No Hx Miscellaneous Medical Probl: Yes (LEUKEMIA, END STAGE RENAL DISEASE) Hx Alcohol Use: No Hx Substance Use: No Hx Tobacco Use: Yes Smoking Status: Former smoker FmHx Family History: No diabetes Physical Exam Vitals Vital Signs Date Temp Pulse Resp B/P (MAP) Pulse Ox O2 O2 Flow FiO2 Time Delivery Rate 11/24/18 97.6 132 18 124/59 98 11:03 (80) Physical Exam General: Well developed, well nourished, no acute distress Head: Normocephalic, atraumatic. Eyes: Pupils equally reactive, EOM intact ENT: Moist mucous membranes Neck: Supple, no lymphadenopathy Respiratory: Lungs clear bilaterally, no distress Cardiovascular: RRR, no murmurs, rubs, or gallops Abdominal: Soft, non-tender, non-distended, no peritoneal signs : Deferred MSK: No edema, no unilateral swelling, 5/5 strength Neurologic: Alert and oriented, moving all extremities, normal speech, no focal weakness, no cerebellar signs Skin: No rash Psych: Normal mood Result Diagram: 11/24/18 1130 11/24/18 1130 Results 24 hrs Laboratory Tests Test 11/24/18 11:30 White Blood Count 7.6 10^3/ul Red Blood Count 3.79 10^6/ul Hemoglobin 12.3 g/dl Hematocrit 38.4 % Mean Corpuscular Volume 101.3 fl Mean Corpuscular Hemoglobin 32.5 pg Mean Corpuscular Hemoglobin Concent 32.0 g/dl Red Cell Distribution Width 16.9 % Platelet Count 176 10^3/UL Mean Platelet Volume 12.0 fl Immature Granulocytes % 0.400 % Neutrophils % 69.0 % Lymphocytes % 14.4 % Monocytes % 9.4 % Eosinophils % 5.9 % Basophils % 0.9 % Nucleated Red Blood Cells % 0.0 /100WBC Immature Granulocytes # 0.030 10^3/ul Neutrophils # 5.2 10^3/ul Lymphocytes # 1.1 10^3/ul Monocytes # 0.7 10^3/ul Eosinophils # 0.5 10^3/ul Basophils # 0.1 10^3/ul Nucleated Red Blood Cells # 0.0 10^3/ul Sodium Level 139 mmol/L Potassium Level 4.7 mmol/L Chloride Level 97 mmol/L Carbon Dioxide Level 22 mmol/L Anion Gap 20 Blood Urea Nitrogen 59 mg/dl Creatinine 8.26 mg/dl Est Glomerular Filtrat Rate mL/min 6 mL/min Glucose Level 113 mg/dl Calcium Level 9.1 mg/dl Serum HCG, Qualitative NEGATIVE Current Medications Medications Dose Sig/Twila Start Time Status Last (Trade) Ordered Route PRN Stop Time Admin Dose Reason Admin Morphine 4 mg ONCE STAT 11/24/18 DC 11/24/18 Sulfate IV 11:12 11/24/18 11:29 (morphine) 11:14 Ondansetron 4 mg ONCE STAT 11/24/18 DC 11/24/18 HCl (Zofran IV 11:12 11/24/18 11:29 Inj) 11:14 25 mg ONCE ONCE 11/24/18 DC 11/24/18 Diphenhydrami IV 12:30 11/24/18 12:40 ne HCl 12:31 (Benadryl) Procedures/MDM EKG, MONITORS, & DIAGNOSTIC IMAGING: EKG: I reviewed and interpreted a 12-lead EKG. Rhythm: Normal sinus rhythm ST Changes: No contiguous ST segment elevations T waves: No contiguous T wave inversions Impression: No evidence of acute cardiac ischemia Chest x-ray: I reviewed and interpreted a 1 view of the chest Mediastinum: No enlargement Cardiac silhouette: No cardiomegaly Airspace: Clear lung lewis bilaterally without evidence of pneumothorax Bones: No evidence of fracture LAB INTERPRETATION: I reviewed the laboratory testing and it shows no hyperkalemia MEDICAL DECISION MAKING: The patient was sent to the emergency room because of lab draw that showed hyperkalemia of 6.7. Patient is otherwise well-appearing with her baseline chronic pain. The patient has no evidence of infectious process or bacteremia. Laboratory testing to rule out hyperkalemia will be appropriate. EKG appropriate. No evidence of volume overload. Consider possible hemolysis as etiology of the hyperkalemia. ER COURSE: * Potassium is normal. The patient's hyperkalemia was likely secondary to hemolysis. * At this time the patient's pain is well controlled the patient has no evidence of serious etiology. Patient has dialysis tomorrow. She can be safely discharged home. CONSULTATION: None DISPOSITION PLAN: The patient does not have an identifiable emergent medical condition that warrants inpatient hospitalization at this time. The patient is deemed safe for discharge with outpatient follow-up. We discussed follow up with the patient's primary care doctor within 24 to 48 hours as needed. We also discussed return to the emergency room for worsening symptoms or worsening condition. Outpatient referral: None required Discharge Medications: None required Departure Diagnosis: Primary Impression: End stage renal disease Condition: Stable Patient Instructions: Medical Screening Exam, Nonurgent Additional Instructions: Call your primary care doctor TOMORROW for an appointment during the next 1 WEEK.Tell the construction secretary that you were referred from this facility.See the doctor sooner or return here if your condition worsens before your appointment time. Llame al doctor nomdenys tellez (Referral Sources) MAANA y claude yasmin DANAY PARA DENTRO DE YASMIN SEMANA. Dgale a la secretaria que nosotros le instruimos hacer esta danay.Avise o llame si walker condicin se empeora antes de la danay. PHILLIP MCGRAW MD Nov 24, 2018 13:04
== END 2018-11-24 13:33 | disposition home or self-care (01) ==
LOC: E/R 11:00
DX: N18.6 End stage renal disease (principal); C95.90 Leukemia, unspecified not having achieved remission; R07.9 Chest pain, unspecified; Z87.891 Personal history of nicotine dependence; Z99.2 Dependence on renal dialysis
CPT/HCPCS: 71045; 80048; 84703; 85025; 93005; J1200; J2270; J2405; 36415; 96374; 96375

== ENCOUNTER 2018-12-04 20:16 | Inpatient (IN) | payer OTHER ==
[~2018-12-04] VITALS: Ht 157.5 cm; Wt 54.2 kg
[2018-12-04] MEDS ORDERED: morphine 4 MG/ML VIAL IV STA (20:56)
[2018-12-04] MEDS ORDERED: ONDANSETRON 4 MG INJ IV STA (20:56)
[2018-12-04] MEDS ORDERED: DIPHENHYDRAMINE 50 MG INJ IV ONE (22:30)
[2018-12-04] MEDS ORDERED: ALBUTEROL 0.5% (NEB) 2.5 MG/0.5 ML AMP INH STA (22:43)
[2018-12-04] MEDS ORDERED: CA CHLORIDE 10% 10 ML SYRINGE IV STA (22:43)
[2018-12-04] MEDS ORDERED: NA BICARBONATE 8.4% 50 ML SYG IV STA (22:43)
[2018-12-04] MEDS ORDERED: SODIUM POLYSTYRENE 15 GM KIT (POWDER + SORBITOL) PO STA (22:43)
[2018-12-04] MEDS ORDERED: ACETAMINOPHEN 325 MG TAB PO PRN ×2 (23:00)
[2018-12-04] MEDS ORDERED: ONDANSETRON 4 MG INJ IV PRN (23:00)
[2018-12-04] MEDS ORDERED: NACL 0.9% 3 ML SYG IV SCH (23:00)
[2018-12-05] VITALS (19 sets, daily range): BP systolic 109–151; BP diastolic 70–92; PULSE 70–99; RESP 17–20; Ht 157.5 cm; Wt 54.2 kg
[2018-12-05] MEDS: morphine 2 MG INJ IV PRN ×5 (01:00→20:11)
[2018-12-05] MEDS ORDERED: NA POLYST SULFON 15 GM/60 ML BTL PO SCH (01:48)
[2018-12-05] MEDS ORDERED: DIPHENHYDRAMINE 25 MG CAP PO PRN (02:00)
[2018-12-05] MEDS ORDERED: morphine 2 MG INJ IV PRN (02:00)
[2018-12-05] MEDS: HEPARIN 5,000 UNIT/1 ML VIAL SC SCH ×3 (06:48→23:05)
[2018-12-05] MEDS: FAMOTIDINE 20 MG INJ IV SCH (09:17)
[2018-12-05] MEDS: DIPHENHYDRAMINE 50 MG INJ IV PRN ×3 (11:43→18:14)
[2018-12-05] MEDS ORDERED: SODIUM CHLORIDE 0.9% 1L BAG IV PRN (14:00)
[2018-12-05] MEDS: HEPARIN 1000 UNITS/ML 10 ML INJ CATHETER SCH (18:32)
[2018-12-06 00:02] VITALS: BP 110/72; PULSE 98; RESP 18
[2018-12-06] MEDS: morphine 2 MG INJ IV PRN ×5 (00:10→19:53)
[2018-12-06] MEDS: DIPHENHYDRAMINE 50 MG INJ IV PRN ×5 (00:10→22:25)
[2018-12-06 04:15] VITALS: BP 111/72; PULSE 92; RESP 18
[2018-12-06] MEDS: HEPARIN 5,000 UNIT/1 ML VIAL SC SCH (06:15)
[2018-12-06 07:18] VITALS: BP 117/65; PULSE 82; RESP 17
[2018-12-06] MEDS: FAMOTIDINE 20 MG INJ IV SCH (09:02)
[2018-12-06] MEDS: ONDANSETRON 4 MG INJ IV PRN (09:02)
[2018-12-06 11:16] VITALS: BP 108/74; PULSE 79; RESP 17
[2018-12-06 15:33] VITALS: BP 114/83; PULSE 87; RESP 17
[2018-12-06] MEDS ORDERED: SODIUM POLYSTYRENE 15 GM KIT (POWDER + SORBITOL) PO ONE (17:00)
[2018-12-06 20:21] VITALS: BP 121/77; PULSE 84; RESP 18
[2018-12-06] MEDS ORDERED: LINEZOLID 600 MG/300 ML (PMX) 300 ML IVPB SCH (21:00)
[2018-12-07] VITALS (33 sets, daily range): BP systolic 88–160; BP diastolic 41–88; PULSE 62–107; RESP 16–18
[2018-12-07] MEDS: morphine 2 MG INJ IV PRN ×6 (00:34→22:58)
[2018-12-07] MEDS: DIPHENHYDRAMINE 50 MG INJ IV PRN ×4 (04:31→22:58)
[2018-12-07] MEDS: FAMOTIDINE 20 MG INJ IV SCH (08:35)
[2018-12-07] MEDS: HEPARIN 1000 UNITS/ML 10 ML INJ CATHETER SCH (14:42)
[2018-12-07] MEDS: ALBUMIN HUMAN 25% 100 ML IV PRN (15:30)
[2018-12-08] VITALS (7 sets, daily range): BP systolic 91–127; BP diastolic 52–85; PULSE 77–117; RESP 17–18
[2018-12-08] MEDS: morphine 2 MG INJ IV PRN ×5 (04:56→23:04)
[2018-12-08] MEDS: DIPHENHYDRAMINE 50 MG INJ IV PRN ×4 (04:56→23:04)
[2018-12-08] MEDS: FAMOTIDINE 20 MG TAB PO SCH (08:58)
[2018-12-08] MEDS: oxyCODONE (CR) 10 MG TAB [oxyCONTIN] PO SCH ×2 (11:11→22:14)
[2018-12-08] MEDS ORDERED: NA POLYST SULFON 15 GM/60 ML BTL PO ONE ×2 (17:00)
[2018-12-08] MEDS: SENNA/DOCUSATE NA (8.6MG/50MG) TAB PO SCH (22:13)
[2018-12-09] VITALS (21 sets, daily range): BP systolic 86–137; BP diastolic 48–88; PULSE 77–116; RESP 18–19
[2018-12-09] MEDS: DIPHENHYDRAMINE 50 MG INJ IV PRN ×4 (05:26→23:07)
[2018-12-09] MEDS: morphine 2 MG INJ IV PRN ×4 (05:26→21:10)
[2018-12-09] MEDS: oxyCODONE (CR) 10 MG TAB [oxyCONTIN] PO SCH ×2 (10:31→21:00)
[2018-12-09] MEDS: FAMOTIDINE 20 MG TAB PO SCH (10:31)
[2018-12-09] MEDS: HEPARIN 1000 UNITS/ML 10 ML INJ CATHETER SCH (13:31)
[2018-12-09] MEDS: SENNA/DOCUSATE NA (8.6MG/50MG) TAB PO SCH (21:10)
[2018-12-10] VITALS (17 sets, daily range): BP systolic 82–129; BP diastolic 30–70; PULSE 90–120; RESP 18–20
[2018-12-10] MEDS: morphine 2 MG INJ IV PRN ×5 (01:09→21:18)
[2018-12-10] MEDS: DIPHENHYDRAMINE 50 MG INJ IV PRN ×4 (05:05→23:35)
[2018-12-10] MEDS: FAMOTIDINE 20 MG TAB PO SCH (09:40)
[2018-12-10] MEDS: oxyCODONE (CR) 10 MG TAB [oxyCONTIN] PO SCH ×2 (09:40→21:00)
[2018-12-10] MEDS ORDERED: ALTEPLASE (CATHFLO) 2 MG INJ CATHETER PRN (15:30)
[2018-12-10] MEDS: SENNA/DOCUSATE NA (8.6MG/50MG) TAB PO SCH (21:18)
[2018-12-11] MEDS: morphine 2 MG INJ IV PRN ×6 (01:18→21:41)
[2018-12-11 04:25] VITALS: BP 78/51; PULSE 100; RESP 18
[2018-12-11] MEDS: DIPHENHYDRAMINE 50 MG INJ IV PRN ×4 (05:21→23:28)
[2018-12-11 07:29] VITALS: BP 75/51; PULSE 87; RESP 18
[2018-12-11 07:58] VITALS: BP 109/64; PULSE 88
[2018-12-11] MEDS: FAMOTIDINE 20 MG TAB PO SCH (08:08)
[2018-12-11] MEDS: oxyCODONE (CR) 10 MG TAB [oxyCONTIN] PO SCH ×2 (08:08→20:07)
[2018-12-11 11:19] VITALS: BP 101/64; PULSE 98; RESP 18
[2018-12-11 15:35] VITALS: BP 90/67; PULSE 57; RESP 18
[2018-12-11 19:46] VITALS: BP 106/78; PULSE 93; RESP 18
[2018-12-11] MEDS: SENNA/DOCUSATE NA (8.6MG/50MG) TAB PO SCH (20:07)
[2018-12-12] VITALS (19 sets, daily range): BP systolic 80–120; BP diastolic 51–78; PULSE 81–123; RESP 17–19
[2018-12-12] MEDS: morphine 2 MG INJ IV PRN ×5 (01:48→22:32)
[2018-12-12] MEDS: DIPHENHYDRAMINE 50 MG INJ IV PRN ×4 (05:21→23:33)
[2018-12-12] MEDS: FAMOTIDINE 20 MG TAB PO SCH (08:25)
[2018-12-12] MEDS: oxyCODONE (CR) 10 MG TAB [oxyCONTIN] PO SCH (08:26)
[2018-12-12] MEDS: METHADONE (1 MG/ML 5 ML PO UD SYG) PO SCH ×2 (11:41→18:00)
[2018-12-12] MEDS: HEPARIN 1000 UNITS/ML 10 ML INJ CATHETER SCH (13:14)
[2018-12-12] MEDS: ONDANSETRON 4 MG INJ IV PRN (19:29)
[2018-12-12] MEDS: SENNA/DOCUSATE NA (8.6MG/50MG) TAB PO SCH (20:46)
[2018-12-13 04:37] VITALS: BP 83/59; PULSE 94; RESP 19
[2018-12-13 04:56] VITALS: BP 96/65; PULSE 92; RESP 18
[2018-12-13] MEDS: DIPHENHYDRAMINE 50 MG INJ IV PRN ×4 (05:34→23:40)
[2018-12-13] MEDS: METHADONE (1 MG/ML 5 ML PO UD SYG) PO SCH ×5 (06:00→23:39)
[2018-12-13] MEDS: morphine 2 MG INJ IV PRN ×4 (06:46→23:40)
[2018-12-13 07:43] VITALS: BP 84/52; PULSE 93; RESP 17
[2018-12-13] MEDS: ONDANSETRON 4 MG INJ IV PRN ×2 (08:25→17:46)
[2018-12-13] MEDS: FAMOTIDINE 20 MG TAB PO SCH (08:26)
[2018-12-13] MEDS ORDERED: NA POLYST SULFON 15 GM/60 ML BTL PO ONE (10:30)
[2018-12-13 11:29] VITALS: BP 111/66; PULSE 97; RESP 17
[2018-12-13 15:40] VITALS: BP 103/69; PULSE 86; RESP 17
[2018-12-13] MEDS ORDERED: NA POLYST SULFON 15 GM/60 ML BTL PO SCH (18:30)
[2018-12-13 20:00] VITALS: BP 101/62; PULSE 84; RESP 18
[2018-12-13] MEDS: SENNA/DOCUSATE NA (8.6MG/50MG) TAB PO SCH (20:26)
[2018-12-14] VITALS (17 sets, daily range): BP systolic 83–112; BP diastolic 50–69; PULSE 75–115; RESP 20
[2018-12-14] MEDS: DIPHENHYDRAMINE 50 MG INJ IV PRN ×3 (05:48→17:48)
[2018-12-14] MEDS: METHADONE (1 MG/ML 5 ML PO UD SYG) PO SCH ×3 (05:52→17:03)
[2018-12-14] MEDS: morphine 2 MG INJ IV PRN ×3 (05:52→17:07)
[2018-12-14] MEDS: ONDANSETRON 4 MG INJ IV PRN ×2 (06:01→13:29)
[2018-12-14] MEDS: FAMOTIDINE 20 MG TAB PO SCH (08:37)
[2018-12-14] MEDS: ALBUMIN HUMAN 25% 100 ML IV PRN (09:57)
[2018-12-14] MEDS: HEPARIN 1000 UNITS/ML 10 ML INJ CATHETER SCH (12:23)
== END 2018-12-14 18:10 | disposition home or self-care (01) | DRG 640 ==
LOC: E/R 20:16 → TEL 22:50 → CANRESERV 23:26 → TEL 12-05 08:20 → OBSVTOIN 12-06 12:57
PROVIDERS: ADMIT Internal Medicine; ATTEND Internal Medicine
PROC: 5A1D70Z Performance of Urinary Filtration, Intermittent, Less than 6 Hours Per Day (ICD-10-PCS; principal; 2018-12-05)
DX: E87.5 Hyperkalemia (principal); I12.0 Hypertensive chronic kidney disease with stage 5 chronic kidney disease or end stage renal disease; N18.6 End stage renal disease; C95.90 Leukemia, unspecified not having achieved remission; Z99.2 Dependence on renal dialysis; Z92.21 Personal history of antineoplastic chemotherapy; D63.1 Anemia in chronic kidney disease; E89.0 Postprocedural hypothyroidism; Z87.891 Personal history of nicotine dependence
CPT/HCPCS: 71045; 80048; 80053; 82550; 82553; 83036; 83735; 84100; 84484; 85025; 85610; 85730; 87340; 90935; 93005; 93970; 94664; 96374; 96375; 99217; G0378; J1200; J1644; J2270; J2405; P9047

== ENCOUNTER 2019-02-23 05:37 | Emergency (ER) | payer OTHER ==
[~2019-02-23] VITALS: Ht 162.6 cm; Wt 57.8 kg
[2019-02-23 05:41] VITALS: Ht 162.6 cm; Wt 57.8 kg
[2019-02-23] MEDS ORDERED: KETOROLAC 15 MG INJ IV STA (06:04)
[2019-02-23] MEDS ORDERED: morphine 2 MG INJ IV STA (07:13)
[2019-02-23 08:20] VITALS: BP 150/89; PULSE 99; RESP 20
== END 2019-02-23 08:21 | disposition home or self-care (01) ==
LOC: E/R 05:37
DX: R10.9 Unspecified abdominal pain (principal); N18.6 End stage renal disease; Z99.2 Dependence on renal dialysis
CPT/HCPCS: 36415; 74176; 80053; 83690; 84703; 85025; 96374; 96375; J1885; J2270; Z7502